=== PATIENT | female | born 1975 | race Caucasian/White ===

== ENCOUNTER 2022-12-03 06:30 | Outpatient (OUT) | payer BC, SELFPAY ==
[2022-12-03 07:09] LABS: Basophils Absolute Auto 0.1 10^3/uL (0.0-0.1); Eosinophils Absolute Auto 0.1 10^3/uL (0.0-0.7); Eosinophils Percent Auto 0.9 % (0.9-7.0); Hematocrit 39.2 % (36.0-48.0); Hemoglobin 13.4 g/dL (12.0-16.0); Immature Granulocytes Abs Auto 0.03 10^3/uL (0.00-0.03); Immature Granulocytes Pct Auto 0.3 % (0.0-0.5); Lymphocytes Absolute Auto 2.4 10^3/uL (1.2-3.8); Lymphocytes Percent Auto 24.1 % (20.5-60.0); Mean Corpuscular HGB Conc 34.2 g/dL (29.9-35.2); Mean Corpuscular Hemoglobin 28.4 pg (26.7-34.0); Mean Corpuscular Volume 83.1 fL (81.0-99.0); Mean Platelet Volume 9.4 fL (9.5-13.5); Monocytes Absolute Auto 0.6 10^3/uL (0.3-0.8); Neutrophils Absolute Auto 6.8 10^3/uL (1.4-6.5); Neutrophils Percent Auto 67.7 % (43.0-75.0); Platelet Count 391 10^3/uL (150-450); Red Blood Count 4.72 10^6/uL (4.20-5.40); Red Cell Distribution Width 13.3 % (11.0-15.0)
[2022-12-03 07:33] LABS: Estimated Average Glucose 111 mg/dL; Glycohemoglobin A1C 5.5 % (4.5-6.2)
[2022-12-03 07:39] LABS: Bilirubin Urine NEGATIVE (NEGATIVE); Blood Urine TRACE-I (NEGATIVE); Clarity Urine CLEAR (CLEAR); Color Urine YELLOW (YELLOW); Glucose Urine UA NEGATIVE (NEGATIVE); Ketones Urine NEGATIVE (NEGATIVE); Leukocyte Esterase Urine NEGATIVE (NEGATIVE); Nitrite Urine NEGATIVE (NEGATIVE); Protein Urine NEGATIVE (NEG/TRACE); Specific Gravity Urine >=1.030 (1.005-1.025); Urobilinogen Urine 0.2 EU/dL (0.2-1.0)
[2022-12-03 07:41] LABS: RBC Urine 0-2 #/HPF (0-2); WBC Urine NONE SEEN #/HPF (NONE SEEN)
[2022-12-03 07:42] LABS: Bacteria Urine TRACE #/HPF (NONE SEEN); Cast Seen? NONE SEEN #/LPF (NONE SEEN); Crystals Seen? None Seen #/HPF (None Seen); Mucus Urine TRACE (NONE SEEN); Squamous Epithelial Cell Urine FEW #/LPF (NONE/RARE)
[2022-12-03 07:45] LABS: Alanine Aminotransferase 42 U/L (14-59); Albumin Globulin Ratio 0.8; Albumin Level 3.6 g/dL (3.4-5.0); Alkaline Phosphatase 54 U/L (46-116); Anion Gap 11.5; Aspartate Amino Transferase 18 U/L (15-37); BUN Creatinine Ratio 23.4; Bilirubin Total 0.5 mg/dL (0.2-1.0); Calcium 9.1 mg/dL (8.5-10.1); Carbon Dioxide 29.1 mmol/L (21.0-32.0); Chloride 100 mmol/L (98-107); Chol HDL Ratio 3.9; Cholesterol 188 mg/dL (<=200); Estimated GFR (African America >60 (>=60); Estimated GFR (Non-African Ame >60 (>=60); Free Thyroxine Index 2.99 (1.30-4.50); Globulin 4.6 g/dL; Glucose 105 mg/dL (74-106); HDL Cholesterol 48 mg/dL (40-60); Potassium 3.6 mmol/L (3.5-5.1); Sodium 137 mmol/L (136-145); Total Protein 8.2 g/dL (6.4-8.2); Triglycerides 204 mg/dL (<=150); VLDL CHOLESTEROL 40.8 mg/dL
[2022-12-04 11:28] LABS: Insulin 33.3 uIU/mL (2.6-24.9)
== END 2022-12-03 06:31 | disposition home or self-care (01) ==
LOC: LAB 06:30
PROVIDERS: PCP Nurse Practitioner Family; Visit Provider Nurse Practitioner Family
DX: Z00.00 Encounter for general adult medical examination without abnormal findings (principal); R30.0 Dysuria
CPT/HCPCS: 36415; 80053; 80061; 81001; 83036; 83525; 83540; 84436; 84443; 84479; 85025; 87086

== ENCOUNTER 2022-12-04 20:36 | Emergency (ER) | payer BC, SELFPAY ==
[2022-12-04 20:39] VITALS: BP 160/94; PULSE 75; RESP 20; TEMP 36.7; O2SAT 98; BMI 40.7
--- NOTE | 2022-12-04 20:50 | CT_ITS ---
[address] [address] Patient Name: MARCELLA HOUSER MRN: [id number] date: 1975 Sex: F Assigned Patient Location: ER Current Patient Location: Accession/Order Number: [id number] Exam Date: 12/04/2022 21:03 Report Date: 12/04/2022 21:32 At the request of: CHARLINE HATFIELD Procedure: CT abdomen pelvis wo con EXAM: CT abdomen pelvis wo con REASON FOR EXAM: Female, 47 years, right flank pain. TECHNIQUE: Computed tomography of the abdomen and pelvis is performed in the axial projection from the lung bases to the pubic symphysis. Sagittal and coronal reconstructed images are performed. Dose reduction techniques were achieved by using automated exposure control and/or adjustment of mA and/or KVP according to patient size and/or use of iterative reconstruction technique. Study was performed without IV contrast. Study was performed without oral contrast. COMPARISON: 06/27/2015 FINDINGS: Lung bases: The lung bases are clear. There is no pleural effusion. The visualized portions of the heart are unremarkable. The lack of intravenous contrast slightly limits evaluation of the solid abdominal organs. Liver: There is diffuse decreased attenuation throughout the liver consistent with steatosis. Gallbladder: The gallbladder has been removed. Spleen: The spleen is normal. Pancreas: The pancreas is normal. Adrenal glands: The adrenal glands are normal bilaterally. Right kidney: The kidney is normal in size. There is no renal calculus or hydronephrosis. Left kidney: The kidney is normal in size. There is no renal calculus or hydronephrosis. Stomach: The stomach is normal. Small bowel: The small bowel is normal. Large bowel: The colon is normal. Appendix: The appendix is visualized, and is normal. Aorta: The aorta is normal. IVC: The IVC is normal. Retroperitoneum: Normal retroperitoneum. Bladder: The bladder is minimally distended at the time of scanning. Pelvic organs: Normal uterus. There is a 4.1 cm right ovarian cyst. There appears to be a dominant follicle within the left ovary. Abdominal wall: Postoperative changes are seen to the lower abdominal wall. Osseous structures: Degenerative changes are seen in the visualized spine. IMPRESSION: No bowel obstruction or acute renal pathology. 4.1 cm right ovarian cyst. This can be further characterized by pelvic sonography, as clinically indicated. Hepatic steatosis. Normal appendix. Additional nonacute findings, as described above. Electronically authenticated by: PEACE ABRAHAM Date: 12/04/2022 21:32
--- NOTE | 2022-12-04 20:52 | ED.ABDPAIN1 ---
HPI - Abdominal Pain General Chief Complaint: Abdominal Pain Stated Complaint: ADBOMINAL PAIN Time Seen by Provider: 12/04/22 20:42 Source: patient Mode of arrival: walk-in Limitations: no limitations History of Present Illness HPI narrative: patient is a 47-year-old female who presents to the emergency department for the evaluation of right lower quadrant and right flank pain that has been present for the last week. Patient states her primary pain is in the right lower quadrant and she has radiating pain into the right flank. She has had a previous tubal ligation. She denies fevers, chills. She has had nausea but no vomiting. She denies urinary symptoms. She saw her PCP yesterday who ordered outpatient labs and urine specimen. She was not placed on any medications. She states today the pain is more intense. Related Data Home Medications Medication Instructions Recorded Confirmed chlorthalidone 25 mg tablet 12.5 mg PO .am 12/04/22 12/04/22 lisinopril 20 mg tablet 20 mg PO BID 12/04/22 12/04/22 pindolol 5 mg tablet 20 mg PO DAILY 12/04/22 12/04/22 sertraline 50 mg tablet 50 mg PO Q24H 12/04/22 12/04/22 Previous Rx's Medication Instructions Recorded ketorolac 10 mg tablet 10 mg PO TID PRN pain #10 tabs 12/04/22 ondansetron 4 mg disintegrating 4 mg PO Q6H PRN nausea and 12/04/22 tablet vomiting #12 tabs oxycodone-acetaminophen 5 mg-325 1 tab PO Q6H PRN pain #12 tabs 12/04/22 mg tablet (Percocet) Allergies Allergy/AdvReac Type Severity Reaction Status Date / Time metoprolol [From Toprol XL] Allergy Intermediate Verified 12/04/22 20:39 Review of Systems ROS Constitutional Denies: fever or chills Ears, nose, mouth, and throat Denies: throat pain or neck pain Respiratory Denies: shortness of breath or cough Gastrointestinal Reports: abdominal pain and nausea; Denies: vomiting Genitourinary Reports: pelvic pain; Denies: painful urination or urinary frequency Musculoskeletal Reports: back pain; Denies: neck pain Integumentary/Breast Denies: rash Exam Narrative Exam Narrative: Gen.: Awake, alert, in no distress Head: Normocephalic, atraumatic ENT: Moist mucous membranes Respiratory: No respiratory distress Gastrointestinal: Abdomen is soft, nondistended and mildly tender in the suprapubic and right lower quadrant of the abdomen. No McBurney's point tenderness. No rebound or guarding. No CVA tenderness on exam. No rashes noted of the right flank Extremities: Moves extremities equally, no injuries noted Psych: Normal mood and affect Neuro: No focal neuro deficit Skin: Warm, dry, intact Constitutional Vital Signs - 24 hr 12/04/22 20:39 Temperature 98.1 F Pulse Rate [Monitor] 75 Respiratory Rate 20 Blood Pressure [Left Arm] 160/94 H Pulse Oximetry 98 Oxygen Delivery Method Room Air Course Vital Signs Vital signs: Vital Signs Temperature 98.1 F 12/04/22 20:39 Pulse Rate 75 12/04/22 20:39 Respiratory Rate 20 12/04/22 20:39 Blood Pressure 160/94 H 12/04/22 20:39 Pulse Oximetry 98 12/04/22 20:39 Oxygen Delivery Method Room Air 12/04/22 20:39 Temperature 98.1 F 12/04/22 20:39 Pulse Rate 75 12/04/22 20:39 Respiratory Rate 20 12/04/22 20:39 Blood Pressure 160/94 H 12/04/22 20:39 Pulse Oximetry 98 12/04/22 20:39 Oxygen Delivery Method Room Air 12/04/22 20:39 MDM - Abdominal Pain MDM Narrative Medical decision making narrative: patient treated with IV fluids, Toradol, Zofran. Labs from yesterday were reviewed and the patient had an unremarkable CBC, CMP. Urine specimen did show a small amount of blood yesterday. These labs are repeated today. Patient was sent for CT of the abdomen and pelvis without contrast. CT shows a 4.1 cm right ovarian cyst with no other acute abnormalities. Patient with no pain out of proportion on exam, stable vital signs and symptoms for one week. She was given an order for an outpatient ultrasound as they are not available in hospital at this time. She should follow-up with [facility] for further evaluation and treatment. She was provided with pain medication and anti-inflammatories with Zofran for home. She was noted to have a potassium of 3.2 and was given oral potassium replenishment in the emergency department. She is resting comfortably on reevaluation. Medical Records Attestation: I reviewed the patient's medical records. Lab Data Attestation: I reviewed the patient's lab results. Labs: Lab Results 12/04/22 12/04/22 Range/Units 20:50 21:09 WBC 11.1 H (4.0-11.0) 10^3/uL RBC 4.69 (4.20-5.40) 10^6/uL Hgb 13.2 (12.0-16.0) g/dL Hct 39.9 (36.0-48.0) % MCV 85.1 (81.0-99.0) fL MCH 28.1 (26.7-34.0) pg MCHC 33.1 (29.9-35.2) g/dL RDW 13.3 (11.0-15.0) % Plt Count 409 (150-450) 10^3/uL MPV 9.4 L (9.5-13.5) fL Neut % (Auto) 59.5 (43.0-75.0) % Lymph % (Auto) 30.7 (20.5-60.0) % Swain % (Auto) 6.9 (1.7-12.0) % Eos % (Auto) 1.5 (0.9-7.0) % Baso % (Auto) 1.0 (0.2-2.0) % Neut # (Auto) 6.6 H (1.4-6.5) 10^3/uL Lymph # (Auto) 3.4 (1.2-3.8) 10^3/uL Swain # (Auto) 0.8 (0.3-0.8) 10^3/uL Eos # (Auto) 0.2 (0.0-0.7) 10^3/uL Baso # (Auto) 0.1 (0.0-0.1) 10^3/uL Abs Immat Gran (auto) 0.05 H (0.00-0.03) 10^3/uL Imm/Tot Granulo (auto) 0.4 (0.0-0.5) % Sodium 136 (136-145) mmol/L Potassium 3.2 L (3.5-5.1) mmol/L Chloride 101 (98-107) mmol/L Carbon Dioxide 26.0 (21.0-32.0) mmol/L Anion Gap 12.2 BUN 18.0 (7.0-18.0) mg/dL Creatinine 0.82 (0.55-1.02) mg/dL Est GFR ( Amer) >60 (>=60) Est GFR (Non-Af Amer) >60 (>=60) BUN/Creatinine Ratio 22.0 Glucose 112 H (74-106) mg/dL Lactate 1.0 (0.4-2.0) mmol/L Calcium 9.1 (8.5-10.1) mg/dL Total Bilirubin 0.4 (0.2-1.0) mg/dL AST 17 (15-37) U/L ALT 32 (14-59) U/L Alkaline Phosphatase 59 (46-116) U/L Total Protein 8.1 (6.4-8.2) g/dL Albumin 3.5 (3.4-5.0) g/dL Globulin 4.6 g/dL Albumin/Globulin Ratio 0.8 Lipase 74.0 (73.0-393.0) U/L Urine Color Lt. yellow (YELLOW) Urine Clarity Clear (CLEAR) Urine pH 5.5 (5.0-9.0) Ur Specific Kimberly 1.025 (1.005-1.025) Urine Protein Negative (NEG/TRACE) mg/dL Urine Glucose (UA) Negative (NEGATIVE) mg/dL Urine Ketones Negative (NEGATIVE) mg/dL Urine Occult Blood Negative (NEGATIVE) Urine Nitrite Negative (NEGATIVE) Urine Bilirubin Negative (NEGATIVE) Urine Urobilinogen 0.2 (0.2-1.0) EU/dL Ur Leukocyte Esterase Trace A (NEGATIVE) Urine HCG, Qual Negative (NEGATIVE) Imaging Data CT scan - abdomen: Attestation: I have reviewed the pertinent imaging results. Radiologist's impression: Procedure: CT abdomen pelvis wo con EXAM: CT abdomen pelvis wo con REASON FOR EXAM: Female, 47 years, right flank pain. TECHNIQUE: Computed tomography of the abdomen and pelvis is performed in the axial projection from the lung bases to the pubic symphysis. Sagittal and coronal reconstructed images are performed. Dose reduction techniques were achieved by using automated exposure control and/or adjustment of mA and/or KVP according to patient size and/or use of iterative reconstruction technique. Study was performed without IV contrast. Study was performed without oral contrast. COMPARISON: 06/27/2015 FINDINGS: Lung bases: The lung bases are clear. There is no pleural effusion. The visualized portions of the heart are unremarkable. The lack of intravenous contrast slightly limits evaluation of the solid abdominal organs. Liver: There is diffuse decreased attenuation throughout the liver consistent with steatosis. Gallbladder: The gallbladder has been removed. Spleen: The spleen is normal. Pancreas: The pancreas is normal. Adrenal glands: The adrenal glands are normal bilaterally. Right kidney: The kidney is normal in size. There is no renal calculus or hydronephrosis. Left kidney: The kidney is normal in size. There is no renal calculus or hydronephrosis. Stomach: The stomach is normal. Small bowel: The small bowel is normal. Large bowel: The colon is normal. Appendix: The appendix is visualized, and is normal. Aorta: The aorta is normal. IVC: The IVC is normal. Retroperitoneum: Normal retroperitoneum. Bladder: The bladder is minimally distended at the time of scanning. Pelvic organs: Normal uterus. There is a 4.1 cm right ovarian cyst. There appears to be a dominant follicle within the left ovary. Abdominal wall: Postoperative changes are seen to the lower abdominal wall. Osseous structures: Degenerative changes are seen in the visualized spine. IMPRESSION: No bowel obstruction or acute renal pathology. 4.1 cm right ovarian cyst. This can be further characterized by pelvic sonography, as clinically indicated. Hepatic steatosis. Normal appendix. Additional nonacute findings, as described above. Electronically authenticated by: PEACE ABRAHAM Date: 12/04/2022 21:32 Discharge Plan Discharge Chief Complaint: Abdominal Pain Clinical Impression: Acute flank pain, Ovarian cyst Patient Disposition: Home, Self-Care Time of Disposition Decision: 21:44 Condition: Good Prescriptions / Home Meds: New ketorolac 10 mg tablet 10 mg PO TID PRN (Reason: pain) Qty: 10 0RF oxycodone-acetaminophen [Percocet] 5-325 mg tablet 1 tab PO Q6H PRN (Reason: pain) Qty: 12 0RF ondansetron 4 mg tablet,disintegrating 4 mg PO Q6H PRN (Reason: nausea and vomiting) Qty: 12 0RF No Action chlorthalidone 25 mg tablet 12.5 mg PO .am lisinopril 20 mg tablet 20 mg PO BID pindolol 5 mg tablet 20 mg PO DAILY sertraline 50 mg tablet 50 mg PO Q24H Instructions: Ovarian Cyst (ED) Additional Instructions: Follow up with Dr. Fontaine's office in 5-7 days Stand Alone Forms: Portal Instructions Referrals: JOVITA WAITE [Primary Care Provider] - 1 week
[2022-12-04 21:00] LABS: Basophils Absolute Auto 0.1 10^3/uL (0.0-0.1); Eosinophils Absolute Auto 0.2 10^3/uL (0.0-0.7); Eosinophils Percent Auto 1.5 % (0.9-7.0); Hematocrit 39.9 % (36.0-48.0); Hemoglobin 13.2 g/dL (12.0-16.0); Immature Granulocytes Abs Auto 0.05 10^3/uL (0.00-0.03); Immature Granulocytes Pct Auto 0.4 % (0.0-0.5); Lymphocytes Absolute Auto 3.4 10^3/uL (1.2-3.8); Lymphocytes Percent Auto 30.7 % (20.5-60.0); Mean Corpuscular HGB Conc 33.1 g/dL (29.9-35.2); Mean Corpuscular Hemoglobin 28.1 pg (26.7-34.0); Mean Corpuscular Volume 85.1 fL (81.0-99.0); Mean Platelet Volume 9.4 fL (9.5-13.5); Monocytes Absolute Auto 0.8 10^3/uL (0.3-0.8); Monocytes Percent Auto 6.9 % (1.7-12.0); Neutrophils Absolute Auto 6.6 10^3/uL (1.4-6.5); Neutrophils Percent Auto 59.5 % (43.0-75.0); Platelet Count 409 10^3/uL (150-450); Red Blood Count 4.69 10^6/uL (4.20-5.40); Red Cell Distribution Width 13.3 % (11.0-15.0); White Blood Count 11.1 10^3/uL (4.0-11.0)
[2022-12-04] MEDS: 0.9 % SODIUM CHLORIDE 1,000 ML 999 ML IV (21:04)
[2022-12-04] MEDS: ONDANSETRON PF 4 MG/2 ML VIAL IV (21:05)
[2022-12-04] MEDS: KETOROLAC TROMETHAMINE 30 MG/ML VIAL IVP (21:05)
[2022-12-04 21:21] LABS: Bilirubin Urine NEGATIVE (NEGATIVE); Blood Urine NEGATIVE (NEGATIVE); Clarity Urine CLEAR (CLEAR); Color Urine LT. YELLOW (YELLOW); Glucose Urine UA NEGATIVE (NEGATIVE); Ketones Urine NEGATIVE (NEGATIVE); Leukocyte Esterase Urine TRACE (NEGATIVE); Nitrite Urine NEGATIVE (NEGATIVE); Protein Urine NEGATIVE (NEG/TRACE); Specific Gravity Urine 1.025 (1.005-1.025); Urobilinogen Urine 0.2 EU/dL (0.2-1.0); pH Urine 5.5 (5.0-9.0)
[2022-12-04 21:26] LABS: Urine Microscopic Indicated NO
[2022-12-04 21:27] LABS: Alanine Aminotransferase 32 U/L (14-59); Albumin Globulin Ratio 0.8; Albumin Level 3.5 g/dL (3.4-5.0); Alkaline Phosphatase 59 U/L (46-116); Anion Gap 12.2; Aspartate Amino Transferase 17 U/L (15-37); Bilirubin Total 0.4 mg/dL (0.2-1.0); Calcium 9.1 mg/dL (8.5-10.1); Chloride 101 mmol/L (98-107); Estimated GFR (African America >60 (>=60); Estimated GFR (Non-African Ame >60 (>=60); Globulin 4.6 g/dL; Glucose 112 mg/dL (74-106); Potassium 3.2 mmol/L (3.5-5.1); Sodium 136 mmol/L (136-145); Total Protein 8.1 g/dL (6.4-8.2)
[2022-12-04 21:31] LABS: HCG Qualitative Urine* NEGATIVE (NEGATIVE)
[2022-12-04] MEDS: POTASSIUM CITRATE 10 MEQ ER TABLET 40 MEQ PO (22:10)
== END 2022-12-04 22:18 | disposition home or self-care (01) ==
PROVIDERS: Physician Assistant; Emergency Provider Emergency Medicine; PCP Nurse Practitioner Family
DX: R10.9 Unspecified abdominal pain (principal); N83.201 Unspecified ovarian cyst, right side; Z79.899 Other long term (current) drug therapy
CPT/HCPCS: 36415; 74176; 80053; 81003; 83605; 83690; 84703; 85025; 96374; 96375; 99285

== ENCOUNTER 2022-12-09 17:29 | Outpatient (OUT) | payer BC, SELFPAY ==
--- NOTE | 2022-12-09 | US_ITS ---
[address] [address] Patient Name: MARCELLA HOUSER MRN: [id number] date: 1975 Sex: F Assigned Patient Location: Current Patient Location: Accession/Order Number: [id number] Exam Date: 12/09/2022 17:40 Report Date: 12/10/2022 04:21 At the request of: CHARLINE HATFIELD Procedure: US pelvis w/ transvaginal EXAMINATION: US pelvis w/ transvaginal HISTORY: Right Ovarian Cyst COMPARISON: Ultrasound pelvis 08/13/2022, CT abdomen pelvis 12/04/2022 TECHNIQUE: Transabdominal and/or transvaginal sonographic examination was performed as indicated by examination type. FINDINGS: UTERUS: Heterogeneous 1.4 cm rounded area within right uterine wall favoring a leiomyoma. Uterus size: 8.4 x 4.5 x 5.3 cm ENDOMETRIUM: Normal homogeneous appearance. Endometrial thickness: 2 mm RIGHT OVARY: Contains a 3.8 cm anechoic benign-appearing cyst. Duplex Doppler demonstrates normal waveform and flow; resistive index 0.5. Ovary size: 4.8 x 2.9 x 4.8 cm LEFT OVARY: Contains 2 adjacent anechoic benign-appearing cysts, largest is 1.9 cm. Duplex Doppler demonstrates normal waveform and flow; resistive index 0.5. Ovary size: 3.6 x 2.9 x 1.4 cm CUL-DE-SAC: Unremarkable. No significant free fluid. BLADDER: Unremarkable. OTHER: None. IMPRESSION: 1. Bilateral benign-appearing ovarian cysts, largest is on right, 3.8 cm. No additional follow-up is recommended at this time. Electronically authenticated by: TERRI DELANEY Date: 12/10/2022 04:21
== END 2022-12-09 17:30 | disposition home or self-care (01) ==
PROVIDERS: PCP Nurse Practitioner Family; Visit Provider Physician Assistant
DX: N83.201 Unspecified ovarian cyst, right side (principal); N83.202 Unspecified ovarian cyst, left side
CPT/HCPCS: 76830; 76856

== ENCOUNTER 2023-06-12 14:36 | Outpatient (REF) | payer BC, SELFPAY ==
[2023-06-12 15:21] LABS: SARS-CoV-2 Ag NEGATIVE (NEGATIVE)
[2023-06-13 15:34] LABS: SARS-CoV-2 NAA NOT DETECTED (NOT DETECTE)
== END 2023-06-12 14:37 | disposition home or self-care (01) ==
LOC: LAB 14:36
PROVIDERS: PCP Nurse Practitioner Family; Visit Provider Nurse Practitioner Family
DX: U07.1 COVID-19 (principal)
CPT/HCPCS: 87635; 87811

== ENCOUNTER 2023-08-17 03:57 | Emergency (ER) | payer BC, SELFPAY ==
[2023-08-17] VITALS (10 sets, daily range): BP systolic 119–146; BP diastolic 72–87; PULSE 70–75; RESP 16–18; TEMP 36.8; O2SAT 96–98; BMI 40.7
--- OUTSIDE RECORDS SUMMARY | 2023-08-17 04:06 | XMS_ITS | CCD ---
Author Name Unknown Address [address] [place] [address] Organization [facility] Team Providers Care Rail Grinder Name Role Phone ADAMOWICZ, ISAAC J Unavailable Unavailable ADAMOWICZ, ISAAC J Unavailable Unavailable ADAMOWICZ, ISAAC J Unavailable Unavailable ADAMOWICZ, ISAAC J Unavailable Unavailable ADAMOWICZ, ISAAC J Unavailable Unavailable ADAMOWICZ, ISAAC J Unavailable Unavailable ADAMOWICZ, ISAAC J Unavailable Unavailable ADAMOWICZ, ISAAC J Unavailable Unavailable ADAMOWICZ, ISAAC J Unavailable Unavailable ADAMOWICZ, ISAAC J Unavailable Unavailable CANDIS HERNANDEZ Unavailable Unavailable SHANAE LUNA (PATIENT CARE PROVIDER) Unavailable Unavailabl e ADAMOWICZ, ISAAC J Unavailable Unavailable ADAMOWICZ, ISAAC J Unavailable Unavailable ADAMOWICZ, ISAAC J Unavailable Unavailable JESUS CHEATHAM Unavailable Unavailab le ADAMOWICZ, ISAAC J Unavailable Unavailable SHANAE LUNA (PATIENT CARE PROVIDER) Unavailable Unavailabl e SHANAE LUNA (PATIENT CARE PROVIDER) Unavailable Unavailabl e ADAMOWICZ, ISAAC J Unavailable Unavailable ADAMOWICZ, ISAAC J Unavailable Unavailable JESUS CHEATHAM Unavailable Unavailab JOSEPH Arceo Unavailable Unavailab le ADAMOWICZ, ISAAC J Unavailable Unavailable ADAMOWICZ, ISAAC J Unavailable Unavailable ADAMOWICZ, ISAAC J Unavailable Unavailable SHANAE LUNA (PATIENT CARE PROVIDER) Unavailable Unavailabl e ADAMOWICZ, ISAAC J Unavailable Unavailable ADAMOWICZ, ISAAC J Unavailable Unavailable PHYSICIAN, DEFAULT Admitting Unavailable PHYSICIAN, DEFAULT Attending Unavailable PHYSICIAN, DEFAULT Admitting Unavailable PHYSICIAN, DEFAULT Attending Unavailable JOVITA WAITE Primary Care Physician DR GUSTAVO GREWAL Consulting Unavailable JOVITA WAITE Primary Care Unavailable SHERMAN Hernandez, DR JUÁREZ Attending Unavailable SHERMAN ., DR JUÁREZ Admitting Unavailable ALLI CARLSON Consulting Unavailable WADE BOUCHER Consulting Unavailable MARIANN, JOVITA Primary Care Unavailable MARIANN, JOVITA Attending Unavailable MARIANN, JOVITA Admitting Unavailable MARIANN, JOVITA Consulting Unavailable MARIANN, JOVITA Primary Care Unavailable MARIANN, JOVITA Attending Unavailable MARIANN, JOVITA Admitting Unavailable DR SHADE ROMO V Consulting Unavailable MARIANN, JOVITA Primary Care Unavailable MARIANN, JOVITA Attending Unavailable MARIANN, JOVITA Admitting Unavailable MARIANN, JOVITA Consulting Unavailable KADI ., HARRY Consulting Unavailable MARIANN, JOVITA Primary Care Unavailable KADI ., HARRY Attending Unavailable KADI ., HARRY Admitting Unavailable ZIEBER, DR TERRI Lynn Consulting Unavailable MARIANN, JOVITA Primary Care Unavailable KADI ., HARRY Attending Unavailable KADI ., HARRY Admitting Unavailable KADI ., HARRY Consulting Unavailable MARIANN, JOVITA Consulting Unavailable MARIANN, JOVITA Primary Care Unavailable FANNIE, DIANE Attending Unavailable FANNIE, DIANE Admitting Unavailable ZIEBMARY JANE, DR TERRI Lynn Consulting Unavailable MARIANN, JOVITA Primary Care Unavailable MARINAN, JOVITA Attending Unavailable MARIANN, JOVITA Admitting Unavailable MARIANN, JOVITA Consulting Unavailable MARIANN, JOVITA Consulting Unavailable MARIANN, JOVITA Primary Care Unavailable MARIANN, JOVITA Attending Unavailable MARIANN, JOVITA Admitting Unavailable MARIANN, JOVITA Primary Care Unavailable MARIANN, JOVITA Attending Unavailable MARIANN, JOVITA Admitting Unavailable TERRI LANDAVERDE Consulting Unavailable JAKE ., SEYMOUR Attending Unavailable JAKE ., SEYMOUR Admitting Unavailable MARIANN, JOVITA Primary Care Unavailable JAKE ., SEYMOUR Consulting Unavailable SHERMAN ., DR JUÁREZ Consulting Unavailable MARIANN, JOVITA Primary Care Unavailable SHERMAN ., DR JUÁREZ Attending Unavailable SHERMAN ., DR JUÁREZ Admitting Unavailable [place] Unavailable GERALD MANCINI Attending Unavailable FANNIE, DIANE Attending Unavailable MAGED AMATO Attending Unavailable Allergies Allergy Classification Reported Allergen(s) Allergy Type Date of Onset Reaction(s) Facility (4 sources) metoprolol; Translations: [METOPROLOL] Drug Allergy 6 AOF, heart racing [facility] Repository (2 sources) Pyridoxal Drug Allergy 3 [facility] Repository (3 sources) patient allergy list reviewed by nurse or physicia Propensity to adverse reactions 09-18-201 7 Comment:Done [facility] Other (3 sources) Allergies Reconciled Propensity to adverse reactions Unknown [facility] Other Medications Current Medications Medication Drug Class(es) Dates Sig (Normalized) Sig (Original) acetaminophen 325 mg / oxyCODONE hydrochloride 5 mg oral tablet (2 sources) Opioid Agonist Start: 10-18-2021 Percocet 5 mg-325 mg oral tablet 1 tab(s), Oral, q6hr as needed for pain, 12 tab(s), Refill(s) 0, [facility]/pharm[facility] #[id number], 160, cm, 10/18/21 4:04:00 EDT, Height/Length Dosing, 107, kg, 10/18/21 4:04:00 EDT, Weight Dosing Start Date: 10/18/21 Status: Ordered azithromycin 250 mg oral tablet (6 sources) Macrolide Antimicrobial Start: 03-03-2023 Azithromycin 250 MG as directed Orally 2 tabs po today, then 1 tab daily x 4 more days for 5 Jun, Active chlorthalidone 25 mg oral tablet (3 sources) Thiazide-like Diuretic Chlorthalidone 25 MG 1/2 tablet once a day Active doxycycline hyclate 100 mg oral tablet (2 sources) Tetracycline-class Drug Start: 10-18-2021 take 1 tablet by mouth twice daily doxycycline hyclate 100 mg Tab 100 mg = 1 tab(s), Oral, BID, # 20 tab(s), Refills(s) 0, Pharmacy: [facility]/pharmacy #[id number], 160, cm, 10/18/21 4:04:00 EDT, Height/Length Dosing, 107, kg, 10/18/21 4:04:00 EDT, Weight Dosing Start Date: 10/18/21 Status: Ordered ketorolac tromethamine 10 mg oral tablet (1 source) Nonsteroidal Anti-inflammatory Drug, Cyclooxygenase Inhibitor Start: 10-20-2021 End: 10-25-2021 take 1 tablet by mouth every six hours as needed for pain ketorolac 10 mg Tab 10 mg = 1 tab(s), Oral, q6hr, PRN for pain, X 5 day(s), # 20 tab(s), Refills(s) 0, Pharmacy: [facility]/pharm[facility] #[id number], 160, cm, 10/20/21 18:21:00 EDT, Height/Length Dosing, 107, kg, 10/20/21 18:21:00 EDT, Weight Dosing Start Date: 10/20/21 Stop Date: 10/25/21 Status: Ordered lisinopril 2.5 mg oral tablet (7 sources) Angiotensin Converting Enzyme Inhibitor Start: 11-10-2017 take 1 tablet by mouth once daily in the evening, then take 2 tablets by mouth in the morning, then take 1 tablet by mouth at bedtime lisinopril 2.5 mg Tab 2.5 mg = 1 tab(s), Oral, qPM, Take 5 mg in the morning and 2.5 mg at bedtime, # 30 tab(s), Refills(s) 0, Pharmacy: [facility]/pharmacy #[id number] Start Date: 11/10/17 Status: Ordered Start: 11-10-2017 take 1 tablet by marcus th once daily lisinopril 5 mg Tab 5 mg = 1 tab(s), Oral, Daily, Refills(s) 0 Start Date: 11/10/17 Status: Ordered Start: 07-08-2017 take 1 tablet by marcus th twice daily Lisinopril 20 MG Lisinopril( 20MG Oral 1.17463 Tablet ) Active -Hx Entry Oral for 0 Qty: 60; Refills: 10; patient taking 20 mg BID Jun, Active pindolol 10 mg oral tablet (5 sources) beta-Adrenergic Yandel Start: 11-07-2021 Pindol ol 10MG Pindolol( 10MG Oral two times daily ) Active -Hx Entry Oral two times daily for 0 *Pick strength-form from [facility] for eRX* Nov, Active Start: 05-22-2017 take 1 tablet by marcus th twice daily pindolol 5 mg oral tablet 5 mg = 1 tab(s), Oral, BID, Refills(s) 0 Start Date: 05/22/17 Status: Ordered sertraline 100 mg oral tablet (5 sources) Serotonin Reuptake Inhibitor Start: 11-10-2017 sertraline 100 mg Ta b 50 mg = 0.5 tab(s), Oral, Bedtime, Refills(s) 0 Start Date: 11/10/17 Status: Ordered Start: 10-14-2012 Sertraline HCl 50MG Sertraline HCl 50MG, # 0.00, 10/14/2012, No Refill. Active for 0 *Pick strength[facility]form from [facility] for eRX* October, Active Problems Active Problems Problem Classification Problem Date Documented Date Episodic/Chronic Abdominal pain (9 sources) Left lower quadrant pain; Translations: [Left lower quadrant pain] Onset: 10-18-2021 Episodic Acute and chronic tonsillitis (3 sources) Hypertrophy of tonsils; Translations: [Hypertrophy of tonsils] Onset: 01-08-2018 Chronic Acute bronchitis (3 sources) Acute bronchitis; Translations: [Acute bronchitis due to other specified organisms] Episodic Anxiety disorders (7 sources) Generalized anxiety disorder; Translations: [Anxiety disorder] Onset: 07-08-2017 Resolved: 10-23-2021 Chronic Bacterial infection; unspecified site (2 sources) Other specified bacterial agents as the cause of diseases classified elsewhere Episodic Diseases of white blood cells (1 source) Lymphocytosis (symptomatic); Translations: [Lymphocytosis (symptomatic)] Onset: 04-11-2016 Chronic Essential hypertension (11 sources) Hypertensive disorder; Translations: [Essential (primary) hypertension] Onset: 02-24-2017 Resolved: 10-23-2021 09-23-2017 Chronic Genitourinary symptoms and ill-defined conditions (7 sources) Dysuria; Translations: [Larry hematuria] Onset: 01-17-2022 Episodic Headache; including migraine (4 sources) Headache; including migraine; Translations: [HEADACHE UNSPECIFIED] Onset: 09-22-2022 Heart valve disorders (2 sources) Nonrheumatic mitral (valve) insufficiency; Translations: [Nonrheumatic mitral (valve) insufficiency] Onset: 07-23-2023 Chronic Hypertension with complications and secondary hypertension (2 sources) Hypertensive heart disease without heart failure; Translations: [Hypertensive heart disease without heart failure] Onset: 02-19-2023 Chronic Inflammatory diseases of female pelvic organs (3 sources) Chronic salpingitis; Translations: [Chronic salpingitis] Onset: 10-18-2021 Chronic Inflammatory diseases of female pelvic organs (3 sources) Acute vaginitis; Translations: [Acute vaginitis] Episodic Other aftercare (1 source) Other [place] [facility] (current[facility] drug therapy; Translations: [[facility] CURRENT DRUG THERAPY] Onset: 09-24-2022 Episodic Other aftercare (3 sources) History and physical examination, follow-up; Translations: [Encounter for follow-up examination after completed treatment for conditions other than malignant neoplasm] Episodic Other and ill-defined heart disease (2 sources) Heart disease, unspecified; Translations: [Heart disease, unspecified] Onset: 07-23-2023 Chronic Other connective tissue disease (3 sources) Calcaneal spur of left foot; Translations: [Calcaneal spur, left foot] Episodic Other connective tissue disease (3 sources) Pain in left foot; Translations: [Pain in left foot] Episodic Other connective tissue disease (3 sources) Calcific tendinitis; Translations: [Calcific tendinitis, other site] Episodic Other connective tissue disease (3 sources) Peroneal tendinitis; Translations: [Peroneal tendinitis, left leg] Episodic Other connective tissue disease (3 sources) Pain in right lower limb; Translations: [Pain in right leg] Episodic Other female genital disorders (1 source) Abnormal uterine and vaginal bleeding, unspecified; Translations: [ABNORMAL UTERINE VAGINAL BLEED UNS] Onset: 11-30-2021 Chronic Other female genital disorders (3 sources) Abnormal uterine bleeding; Translations: [Abnormal uterine and vaginal bleeding, unspecified] Chronic Other non-traumatic joint disorders (3 sources) Ankle instability; Translations: [Other instability, left ankle] Episodic Other non-traumatic joint disorders (3 sources) Arthralgia of the ankle and/or foot; Translations: [Pain in left ankle and joints of left foot] Episodic Other nutritional; endocrine; and metabolic disorders (3 sources) Morbid obesity; Translations: [Morbid (severe) obesity due to excess calories] Onset: 07-28-2018 Chronic Other nutritional; endocrine; and metabolic disorders (3 sources) Body mass index 40+ - severely obese; Translations: [Body mass index (BMI) 40.0-44.9, adult] Onset: 07-08-2017 Chronic Other screening for suspected conditions (not mental disorders or infectious disease) (5 sources) Encounter for screening for malignant neoplasm of cervix; Translations: [Encounter for screening mammogram for malignant neoplasm of breast] Onset: 03-06-2022 Episodic Other upper respiratory infections (5 sources) Bacterial sinusitis; Translations: [Chronic sinusitis, unspecified] Chronic Other upper respiratory infections (13 sources) Acute sinusitis, unspecified; Translations: [Acute upper respiratory infection] Onset: 09-14-2018 Episodic Ovarian cyst (3 sources) Cyst of left ovary; Translations: [Unspecified ovarian cyst, left side] Onset: 10-20-2021 Episodic Residual codes; unclassified (3 sources) Postprocedural state finding; Translations: [Other specified postprocedural states] Episodic Sprains and strains (6 sources) Strain of left Achilles tendon; Translations: [Strain of left Achilles tendon, sequela] Episodic Unclassified (1 source) Unknown / UNK(Unknown) Onset: 01-23-2017 Unclassified (3 sources) CONTACT W/AND (SUSP) EXPOS COVID-19; Translations: [CONTACT W/AND (SUSP) EXPOS COVID-19] Onset: 01-22-2022 Past or Other Problems Problem Classification Problem Date Documented Date Episodic/Chronic Cardiac dysrhythmias (10 sources) Tachycardia, unspecified; Translations: [Palpitations] Onset: 05-22-2017 Resolved: 10-23-2021 Episodic Conditions associated with dizziness or vertigo (3 sources) Dizziness and giddiness; Translations: [Dizziness and giddiness] Onset: 07-08-2017 Episodic Immunizations and screening for infectious disease (4 sources) Encounter for screening for human papillomavirus (HPV); Translations: [Vaccination given] Onset: 03-16-2018 Resolved: 10-23-2021 Episodic Nonspecific chest pain (3 sources) Chest pain; Translations: [Chest pain, unspecified] Onset: 07-28-2018 Episodic Other and unspecified benign neoplasm (3 sources) Hemangioma of skin and subcutaneous tissue; Translations: [Hemangioma of skin and subcutaneous tissue] Onset: 07-19-2019 Episodic Other endocrine disorders (3 sources) Disorder of pituitary gland; Translations: [Other disorders of pituitary gland] Onset: 10-31-2017 Resolved: 10-23-2021 Chronic Other lower respiratory disease (3 sources) Cough; Translations: [Cough, unspecified] Onset: 07-24-2017 Resolved: 06-23-2018 Episodic Other nutritional; endocrine; and metabolic disorders (3 sources) Abnormal weight gain; Translations: [Abnormal weight gain] Onset: 07-08-2017 Episodic Other upper respiratory disease (3 sources) Pain in throat; Translations: [Pain in throat] Onset: 11-03-2018 Episodic Other upper respiratory disease (3 sources) Bleeding from nose; Translations: [Epistaxis] Onset: 09-29-2017 Resolved: 06-23-2018 Episodic Otitis media and related conditions (3 sources) Acute secretory otitis media; Translations: [Other acute nonsuppurative otitis media, right ear] Onset: 02-24-2017 Episodic Residual codes; unclassified (1 source) Family history of malignant neoplasm of breast; Translations: [FAMILY HX MALIG NEOPLASM OF BREAST] Onset: 03-09-2022 Episodic Residual codes; unclassified (1 source) Family history of malignant neoplasm of trachea, bronchus and lung; Translations: [FAM HX MALIG NEOPLSM TRACH BRON LNG] Onset: 03-09-2022 Episodic Residual codes; unclassified (1 source) Family history of malignant neoplasm of other organs or systems; Translations: [FAM HX MALIG NEOPLASM OTH ORGN/SYS] Onset: 03-09-2022 Episodic Residual codes; unclassified (1 source) Acquired absence of other specified parts of digestive tract; Translations: [ACQ ABSENCE OTH PART DIGESTV TRACT] Onset: 11-30-2021 Episodic Spondylosis; intervertebral disc disorders; other back problems (4 sources) Pain in thoracic spine; Translations: [PAIN IN THORACIC SPINE] Onset: 01-10-2022 Episodic Syncope (3 sources) Syncope and collapse; Translations: [Syncope and collapse] Onset: 07-08-2017 Episodic Unclassified (1 source) CONTACT W/AND (SUSP) EXPOS COVID-19; Translations: [CONTACT W/AND (SUSP) EXPOS COVID-19] Onset: 01-21-2022 Unclassified (3 sources) Exposure to acute respiratory syndrome coronavirus 2; Translations: [Contact with and (suspected) exposure to COVID-19] Urinary tract infections (3 sources) Urinary tract infectious disease; Translations: [Urinary tract infection, site not specified] Onset: 06-30-2018 Episodic Viral infection (3 sources) Coxsackie virus disease; Translations: [Coxsackievirus as the cause of diseases classified elsewhere] Onset: 12-30-2017 Episodic Viral infection (2 sources) COVID-19 Results Test Name Value Interpretation Reference Range Facility Office Visiton 07-23-2023 Follow-up visit [id number] Nettie Michael 1975 F Date Provider Department Center 07/23/2023 Shady-DIANE GRECO [facility] Family History Problem Relation Age of Onset No Known Problems Mother No Known Problems Father Family Status - Relation Status Age at Mother Father Level of Service:47972 [place] OFFICE/OUTPATIENT ESTABLISHED MOD MDM 30 MIN Normal [facility] Office Visiton 02-19-2023 Follow-up visit [id number] Nettie Michaelyosvany 1975 F Date Provider Department Center 02/19/2023 Allan8-GERALD MANCINI C[facility] Family History Problem Relation Age of Onset No Known Problems Mother No Known Problems Father Family Status - Relation Status Age at Mother Father Level of Service:90287 [place] OFFICE/OUTPATIENT ESTABLISHED MOD MDM 30-39 MIN Normal [facility] Office Visiton 09-25-2022 Follow-up visit [id number] Nettie Michaelmoises 1975 Date Provider Department Center 09/25/2022 Brent6-MAGED AMATO CARD [facility] Family History Problem Relation Age of Onset No Known Problems Mother No Known Problems Father Family Status - Relation Status Age at Mother Father Level of Service:99761 [place] OFFICE/OUTPATIENT ESTABLISHED LOW MDM 20-29 MIN Reason for Visit and Comments: Hypertension [098341] Palpitations [375536] Normal [facility] CBC AUTO DIFFon 09-23-2022 BASO # 0.1 103/ul Normal 0.0-0.1 [facility] Comment on above: Performed By: #### U AMIC #### [facility] [address] [place] [address] Dr. Kristen Gambino Basophils/100 WBC (Bld) 0.9 % Normal 0.2-2.0 [facility] Comment on above: Performed By: #### U AMIC #### [facility] [address] [place] [address] Dr. Kristen Gambino EO # 0.1 103/ul Normal 0.0-0.7 [facility] Comment on above: Performed By: #### U AMIC #### [facility] [address] [place] [address] Dr. Kristen Gambino Eosinophils/100 WBC (Bld) 1.1 % Normal 0.9-7.0 [facility] Comment on above: Performed By: #### U AMIC #### [facility] [address] [place] [address] Dr. Kristen Gambino Erythrocyte distribution width (RBC) [Ratio] 13.2 % Normal 11.0-15.0 [facility] Comment on above: Performed By: #### U AMIC #### [facility] [address] [place] [address] Dr. Kristen Gambino Hematocrit (Bld) [Volume fraction] 41.2 % Normal 36.0-48.0 [facility] Comment on above: Performed By: #### U AMIC #### [facility] [address] [place] [address] Dr. Kristen Gambino Hemoglobin (Bld) [Mass/Vol] 13.8 g/dL Normal 12.0-16.0 [facility] Comment on above: Performed By: #### U AMIC #### [facility] [address] [place] [address] Dr. Kristen Gambino IG # 0.03 10e3/ul Normal 0.00-0.03 [facility] Comment on above: Performed By: #### U AMIC #### [facility] [address] [place] [address] Dr. Kristen Gambino IG % 0.2 % Normal 0.0-0.5 [facility] Comment on above: Performed By: #### U AMIC #### [facility] [address] [place] [address] Dr. Kristen Gambino LYMPH # 3.5 103/ul Normal 1.2-3.8 [facility] Comment on above: Performed By: #### U AMIC #### [facility] [address] [place] [address] Dr. Kristen Gambino Lymphocytes/100 WBC (Bld) 28.4 % Normal 20.5-60.0 [facility] Comment on above: Performed By: #### U AMIC #### [facility] [address] [place] [address] Dr. Kristen Gambino MANUAL DIFF REQ NO Normal [facility] Comment on above: Performed By: #### U AMIC #### [facility] [address] [place] [address] Dr. Kristen Gambino MCH (RBC) [Entitic mass] 27.8 pg Normal 26.7-34.0 [facility] Comment on above: Performed By: #### U AMIC #### [facility] [address] [place] [address] Dr. Kristen Gambino MCHC (RBC) [Mass/Vol] 33.5 g/dL Normal 29.9-35.2 [facility] Comment on above: Performed By: #### U AMIC #### [facility] [address] [place] [address] Dr. Kristen Gambino MCV (RBC) [Entitic vol] 82.9 fL Normal 81.0-99.0 [facility] Comment on above: Performed By: #### U AMIC #### [facility] [address] [place] [address] Dr. Kristen Gambino MONO # 0.9 103/ul Critically high 0.3-0.8 [facility] Comment on above: Performed By: #### U AMIC #### [facility] [address] [place] [address] Dr. Kristen Gambino Monocytes/100 WBC (Bld) 7.0 % Normal 1.7-12.0 [facility] Comment on above: Performed By: #### U AMIC #### [facility] [address] [place] [address] Dr. Kristen Gambino NEUT # 7.8 103/ul Critically high 1.4-6.5 [facility] Comment on above: Performed By: #### U AMIC #### [facility] [address] [place] [address] Dr. Kristen Gambino Neutrophils/100 WBC (Bld) 62.4 % Normal 43.0-75.0 [facility] Comment on above: Performed By: #### U AMIC #### [facility] [address] [place] [address] Dr. Kristen Gambino Platelet mean volume (Bld) [Entitic vol] 9.6 fL Normal 9.5-13.5 [facility] Comment on above: Performed By: #### U AMIC #### [facility] [address] [place] [address] Dr. Kristen Gambino PLT 409 103/ul Normal 150-450 [facility] Comment on above: Performed By: #### U AMIC #### [facility] [address] [address] [address] Kristen Gambino RBC 4.97 106/ul Normal 4.20-5.40 [facility] Comment on above: Performed By: #### U AMIC #### [facility] [address] [place] [address] Dr. Kristen Gambino WBC 12.5 103/ul Critically high 4.0-11.[address] [facility] Comment on above: Performed By: #### U AMIC #### [facility] [address] [place] [address] HEAD WO CONon 09-23-2022 CT HEAD WO CON EXAMINATION: CT HEAD WO CON, 09/22/2022 10:07 PM EDT HISTORY: HEADACHE COMPARISON: MRI pituitary 08/02/2019, CT brain 05/16/2017 TECHNIQUE: CT scan of the head was performed without IV contrast. CT dose reduction technique was used, including Automated Exposure Control. FINDINGS: BRAIN PARENCHYMA/CSF SPACES: Ventricles are normal in size for age. There is no hemorrhage, mass effect or midline shift. Mild low-attenuation in the white matter which may be due to chronic small vessel ischemia but is nonspecific. Stable tiny lipoma along the anterior falx. There is stable prominent CSF density in the sella which appears somewhat expanded. This may be due to empty sella or arachnoid cyst is noted on the previous MRI pituitary from 08/02/2019. PARANASAL SINUSES: Clear. SKULL BASE AND CALVARIUM: Normal. EXTRACRANIAL SOFT TISSUES: Normal. IMPRESSION: 1. No acute intracranial abnormality. 2. Mild hypodensity in the white matter which is nonspecific and may be due to chronic small vessel ischemia but other etiologies are possible including chronic hypertensive encephalopathy, migraine headaches, vasculitis and demyelinating disease. 3. Stable prominent CSF density and expansion of the sella which was noted on MRI from 08/02/2019 and may be secondary to an empty sellar arachnoid cyst. Of note, empty sella can be associated with headaches and visual disturbances in the setting of intracranial hypertension. Electronically authenticated by: TERRI LANDAVERDE Date: 2022-09-22 23:00 Normal [facility] PROF 14(COMP METB)on 023 Albumin [Mass/Vol] 3.5 g/dL Normal 3.4-5.0 [facility] Comment on above: Performed By: #### C VDTBH #### [facility] [address] [place] [address] Dr. Kristen Gambino Albumin/Globulin [Mass ratio] 0.8 {ratio} Normal [facility] Comment on above: Performed By: #### C VDTBH #### [facility] [address] [place] [address] Dr. Kristen Gambino ALP [Catalytic activity/Vol] 67 U/L Normal 46-116 [facility] Comment on above: Performed By: #### C VDTBH #### [facility] [address] [place] [address] Dr. Kristen Gambino ALT [Catalytic activity/Vol] 29 U/L Normal 14-59 [facility] Comment on above: Performed By: #### C VDTBH #### [facility] [address] [place] [address] Dr. Kristen Gambino Anion gap [Moles/Vol] 12.0 mmol/L Normal [facility] Comment on above: Performed By: #### C VDTBH #### [facility] [address] [place] [address] Dr. Kristen Gambino AST [Catalytic activity/Vol] 17 U/L Normal 15-37 [facility] Comment on above: Performed By: #### C VDTBH #### [facility] [address] [place] [address] Dr. Kristen Gambino Bilirubin [Mass/Vol] 0.4 mg/dL Normal 0.2-1.0 [facility] Comment on above: Performed By: #### C VDTBH #### [facility] [address] [address] [address] Kristen Gambino Calcium [Mass/Vol] 9.5 mg/dL Normal 8.5-10.1 [facility] Comment on above: Performed By: #### C VDTBH #### [facility] [address] [address] [address] Kristen Gambino Chloride [Moles/Vol] 101 mmol/L Normal 98-107 [facility] Comment on above: Performed By: #### C VDTBH #### [facility] [address] [place] [address] Dr. Kristen Gambino CO2 [Moles/Vol] 28.9 mmol/L Normal 21.0-32.0 [facility] Comment on above: Performed By: #### C VDTBH #### [facility] [address] [place] [address] Dr. Kristen Gambino Creatinine [Mass/Vol] 0.60 mg/dL Normal 0.55-1.02 [facility] Comment on above: Performed By: #### C VDTBH #### [facility] [address] [place] [address] Dr. Kristen Gambino EGFR-AF COMORAN >60 Normal >=60 [facility] Comment on above: Performed By: #### C VDTBH #### [facility] [address] [place] [address] Dr. Kristen Gambino EGFR-NON AF COMORAN >60 Normal >=60 [facility] Comment on above: Performed By: #### C VDTBH #### [facility] [address] [place] [address] Dr. Kristen Gambino Globulin (S) [Mass/Vol] 4.5 g/dL Normal [facility] Comment on above: Performed By: #### C VDTBH #### [facility] [address] [place] [address] Dr. Kristen Gambino Glucose [Mass/Vol] 108 mg/dL Critically high 74-106 [facility] Comment on above: Performed By: #### C VDTBH #### [facility] [address] [address] [address] Kristen Gambino Potassium [Moles/Vol] 3.9 mmol/L Normal 3.5-5.1 [facility] Comment on above: Performed By: #### C VDTBH #### [facility] [address] [place] [address] Dr. Kristen Gambino Protein [Mass/Vol] 8.0 g/dL Normal 6.4-8.2 [facility] Comment on above: Performed By: #### C VDTBH #### [facility] [address] [place] [address] Dr. Kristen Gambino Sodium [Moles/Vol] 138 mmol/L Normal 136-145 [facility] Comment on above: Performed By: #### C VDTBH #### [facility] [address] [place] [address] Dr. Kristen Gambino Urea nitrogen [Mass/Vol] 10.0 mg/dL Normal 7.0-18.0 [facility] Comment on above: Performed By: #### C VDTBH #### [facility] [address] [place] [address] Dr. Kristen Gambino Urea nitrogen/Creatinine [Mass ratio] 16.7 mg/mg [facility] Comment on above: Performed By: #### C VDTBH #### [facility] [address] [place] [address] Dr. Kristen Gambino PAP ACOG PANEL 2: 30 to 65on 08-15-2022 . . Normal [facility] Comment on above: Result Comment: Perf ormed at: WB Performed By: #### [id number] #### [facility] [address] [place] [address] Dr. Kristen Gambino Age Gdln ACOG Testing 30-65 [facility] Comment on above: Performed By: #### [id number] #### [facility] [address] [place] [address] Dr. Kristen Gambino DIAGNOSIS: Comment Normal [facility] Comment on above: Result Comment: NEGA TIVE FOR INTRAEPITHELIAL LESION OR MALIGNANCY. Performed at: WB Performed By: #### [id number] #### [facility] [address] [place] [address] Dr. Kristen Gambino HPV Aptima Negative Normal Negative [facility] Comment on above: Result Comment: This nucleic acid amplification test detects fourteen high-risk HPV types (16,18,31,33,35,39,45,51,52,56,58,59,66,68) without differentiation. Performed at: =G Performed By: #### [id number] #### [facility] [address] [place] [address] Dr. Kristen Gambino HPV Genotype Reflex Comment Normal [facility] Comment on above: Result Comment: Crit eria not met, HPV Genotype not performed. Performed at: WB Performed By: #### [id number] #### [facility] [address] [place] [address] Dr. Kristen Gambino Methodology: Comment Normal [facility] Comment on above: Result Comment: This liquid based ThinPrep(R) pap test was screened with the use of an image guided system. Performed at: WB Performed By: #### [id number] #### [facility] [address] [place] [address] Dr. Kristen Gambino Note: Comment Normal [facility] Comment on above: Result Comment: The Pap smear is a screening test designed to aid in the detection of premalignant and malignant conditions of the uterine cervix. It is not a diagnostic procedure and should not be used as the sole means of detecting cervical cancer. Both false-positive and false-negative reports do occur. . Performed at: WB Performed By: #### [id number] #### [facility] [address] [place] [address] Dr. Kristen Gambino Performed by: Comment Normal [facility] Comment on above: Result Comment: Nila Romo, Lead Oxide Mill Tender (ASCP) Performed at: WB Performed By: #### [id number] #### [facility] [address] [place] [address] Dr. Kristen Gambino Specimen adequacy: Comment Normal [facility] Comment on above: Result Comment: Sati sfactory for evaluation. Endocervical and/or squamous metaplastic cells (endocervical component) are present. Performed at: WB Performed By: #### [id number] #### [facility] [address] [address] [address] Kristen Gambino US PELVIS AND TRANSVAGon US PELVIS AND TRANSVAG EXAMINATION: US PELVIS AND TRANSVAG HISTORY: Pelvic and perineal pain COMPARISON: Ultrasound pelvis 04/13/2021 TECHNIQUE: Transabdominal and transvaginal sonographic examination. FINDINGS: UTERUS: 1.8 cm fundal myometrial mass favoring a leiomyoma. Uterus size: 8.8 x 4.7 x 6.5 cm ENDOMETRIUM: Normal homogeneous appearance. Endometrial thickness: 5 mm RIGHT OVARY: Contains a 3.0 cm benign-appearing cyst. Duplex Doppler demonstrates normal waveform and flow; resistive index 0.3. Ovary size: 4.3 x 2.9 x 2.8 cm LEFT OVARY: Contains a 3.7 cm benign-appearing cyst. Duplex Doppler demonstrates normal waveform and flow; resistive index 0.5. Ovary size: 5.2 x 4.3 x 3.1 cm CUL-DE-SAC: Unremarkable. No significant free fluid. BLADDER: Unremarkable. OTHER: None. IMPRESSION: 1. Slightly prominent but benign-appearing bilateral ovarian cysts which could contribute to patient's symptoms. No additional follow-up recommended at this time. Electronically authenticated by: TERRI DELANEY Date: 2022-08-14 07:35 Normal [facility] CULTURE URINEon 08-10-2022 CULTURE URINE Isolate 1 Pseudomonas aeruginosa <10,000 cfu/mL of ORGANISM 1 Pseudomonas aeruginosa ANTIBIOTIC M.I.C RX STATUS Piperacillin/Tazobactam <=4 S F Ceftazidime 2 S F Imipenem 2 S F Amikacin <=2 S F Gentamicin <=1 S F Tobramycin <=1 S F Ciprofloxacin <=0.25 S F Levofloxacin 0.25 S F Normal [facility] Comment on above: Performed By: #### U AMIC #### [facility] [address] [place] [address] Dr. Kristen Gambino MG MAMM SCREEN 3D ARCHIE CADon 03-06-2022 MG MAMM SCREEN 3D ARCHIE CAD Patient: GLADIS MICHAEL Exam Date: 03/06/2022 : 1975 Gender:F Ordering : [facility] Admission #: [id number] Family : Order #: [id number] CLICK HERE TO VIEW EXAM RADIOLOGY REPORT PROCEDURE: MAMMOGRAM SCREENING 3D BILATERAL CAD COMPARISON: MG MAMM ARCHIE SCRN W CAD DIG, 10/14/2012. MG MAMM ARCHIE DIAG W CAD, 02/15/2015. INDICATIONS: Screening mammography Calculator Name NCI Breast Cancer Risk Assessment Tool 5 Year Breast Cancer Risk 0.80% Lifetime Breast Cancer Risk 9.30% Personal Breast Cancer No Personal Ovarian Cancer No Treatments None Family Cancers Aunt-maternal with breast cancer at age 82; Father with lung cancer at age 51; Brother with brain cancer at age 41. LOCATION: [facility] BREAST COMPOSITION: Scattered areas fibroglandular density. FINDINGS: DIAGNOSTIC CATEGORY 1--NEGATIVE. NO CHANGE FROM COMPARISON ASSESSMENT. Scattered benign-appearing calcifications are present. Scattered benign-appearing lymph nodes are present. RIGHT BREAST: No significant suspicious finding. LEFT BREAST: No significant suspicious finding. RECOMMENDATIONS: ROUTINE MAMMOGRAM AND CLINICAL EVALUATION IN 12 MONTHS. PLEASE NOTE: A NORMAL MAMMOGRAM DOES NOT EXCLUDE THE POSSIBILITY OF BREAST CANCER. A CLINICALLY SUSPICIOUS PALPABLE LUMP SHOULD BE BIOPSIED. Dictated by: Shade Romo MD on 03/06/2022 at 14:22 Approved by: Shade Romo MD on 03/06/2022 at 14:25 Normal [facility] Covid-19 PCR (CVDTBH)on 01-07 SARS-CoV-2 (COVID-19) RNA GARTH+probe Ql (Unsp spec) Not detected Normal NOT DETECTED [facility] Comment on above: Result Comment: This test is not yet approved or cleared by the [place] FDA. When there are no FDA-approved or cleared tests available, and other criteria are met, FDA can make tests available under an emergency access mechanism called an Emergency Use Authorization (EUA). The EUA for this test is supported by the Refrigerator Mover of Health and Human Service's (HHS's) declaration that circumstances exist to justify the emergency use of in vitro diagnostics for the detection and/or diagnosis of the virus that causes COVID-19. This EUA will remain in effect (meaning this test can be used) for the duration of the COVID-19 declaration justifying emergency of IVDs, unless it is terminated or revoked by FDA (after which the test may no longer be used). When diagnostic testing is negative, the possibility of a false negative should be considered in the context of a patient's recent exposures and the presence of clinical signs and symptoms consistent with SARS-CoV-2. Performed By: #### C VDTB #### [facility] [address] [place] [address] Dr. Kristen Gambino CULTURE URINEon 01-19-2022 CULTURE URINE Culture Observations : Called Group B Strep to Martha Robbins LPN Isolate 1 Streptococcus agalactiae 35,000 cfu/mL of ORGANISM 1 Streptococcus agalactiae ANTIBIOTIC M.I.C RX STATUS Benzylpenicillin <=0.06 S F Ampicillin <=0.25 S F Cefotaxime <=0.12 S F Ceftriaxone <=0.12 S F Levofloxacin 0.5 S F Erythromycin 2 R F Clindamycin <=0.25 S F Linezolid <=2 S F Vancomycin 0.5 S F Tetracycline >=16 R F Normal [facility] Comment on above: Performed By: #### U AMIC #### [facility] [address] [place] [address] Dr. Kristen Gambino CBC AUTO DIFFon 01-17-2022 BASO # 0.2 103/ul Critically high 0.0-0.1 [facility] Comment on above: Performed By: #### C BC #### [facility] [address] [place] [address] Dr. Kristen Gambino Basophils/100 WBC (Bld) 1.3 % Normal 0.2-2.0 [facility] Comment on above: Performed By: #### C BC #### [facility] [address] [place] [address] Dr. Kristen Gambino EO # 0.3 103/ul Normal 0.0-0.7 [facility] Comment on above: Performed By: #### C BC #### [facility] [address] [place] [address] Dr. Kristen Gambino Eosinophils/100 WBC (Bld) 1.9 % Normal 0.9-7.0 [facility] Comment on above: Performed By: #### C BC #### [facility] [address] [place] [address] Dr. Kristen Gambino Erythrocyte distribution width (RBC) [Ratio] 13.4 % Normal 11.0-15.0 [facility] Comment on above: Performed By: #### C BC #### [facility] [address] [address] [address] Kristen Gambino Hematocrit (Bld) [Volume fraction] 41.3 % Normal 36.0-48.0 [facility] Comment on above: Performed By: #### C BC #### [facility] [address] [place] [address] Dr. Kristen Gambino Hemoglobin (Bld) [Mass/Vol] 13.6 g/dL Normal 12.0-16.0 [facility] Comment on above: Performed By: #### C BC #### [facility] [address] [place] [address] Dr. Kristen Gambino IG # 0.07 10e3/ul Critically high 0.00-0.03 [facility] Comment on above: Performed By: #### C BC #### [facility] [address] [place] [address] Dr. Kristen Gambino IG % 0.4 % Normal 0.0-0.5 [facility] Comment on above: Performed By: #### C BC #### [facility] [address] [place] [address] Dr. Kristen Gambino LYMPH # 3.6 103/ul Normal 1.2-3.8 [facility] Comment on above: Performed By: #### C BC #### [facility] [address] [place] [address] Dr. Kristen Gambino Lymphocytes/100 WBC (Bld) 22.4 % Normal 20.5-60.0 [facility] Comment on above: Performed By: #### C BC #### [facility] [address] [place] [address] Dr. Kristen Gambino MANUAL DIFF REQ NO Normal [facility] Comment on above: Performed By: #### C BC #### [facility] [address] [address] [address] Kristen Gambino MCH (RBC) [Entitic mass] 27.8 pg Normal 26.7-34.0 [facility] Comment on above: Performed By: #### C BC #### [facility] [address] [place] [address] Dr. Kristen Gambino MCHC (RBC) [Mass/Vol] 32.9 g/dL Normal 29.9-35.2 [facility] Comment on above: Performed By: #### C BC #### [facility] [address] [address] [address] Kristen Gambino MCV (RBC) [Entitic vol] 84.5 fL Normal 81.0-99.0 [facility] Comment on above: Performed By: #### C BC #### [facility] [address] [place] [address] Dr. Kristen Gambino MONO # 1.1 103/ul Critically high 0.3-0.8 [facility] Comment on above: Performed By: #### C BC #### [facility] [address] [place] [address] Dr. Kristen Gambino Monocytes/100 WBC (Bld) 7.0 % Normal 1.7-12.0 [facility] Comment on above: Performed By: #### C BC #### [facility] [address] [place] [address] Dr. Kristen Gambino NEUT # 10.7 103/ul Critically high 1.4-6.[address] [facility] Comment on above: Performed By: #### C BC #### [facility] [address] [place] [address] Dr. Kristen Gambino Neutrophils/100 WBC (Bld) 67.0 % Normal 43.0-75.0 [facility] Comment on above: Performed By: #### C BC #### [facility] [address] [place] [address] Dr. Kristen Gambino Platelet mean volume (Bld) [Entitic vol] 9.3 fL Critically low 9.5-13.5 [facility] Comment on above: Performed By: #### C BC #### [facility] [address] [address] [address] Kristen Gambino PLT 502 103/ul Critically high 150-450 [facility] Comment on above: Performed By: #### C BC #### [facility] [address] [address] [address] Kristen Gambino RBC 4.89 106/ul Normal 4.20-5.40 [facility] Comment on above: Performed By: #### C BC #### [facility] [address] [address] [address] Kristen Gambino WBC 16.0 103/ul Critically high 4.0-11.0 [facility] Comment on above: Performed By: #### C BC #### [facility] [address] [place] [address] Dr. Kristen Gambino PROF 14(COMP METB)on 022 Albumin [Mass/Vol] 4.0 g/dL Normal 3.4-5.0 [facility] Comment on above: Performed By: #### C MP #### [facility] [address] [place] [address] Dr. Kristen Gambino Albumin/Globulin [Mass ratio] 0.9 {ratio} Normal [facility] Comment on above: Performed By: #### C MP #### [facility] [address] [place] [address] Dr. Kristen Gambino ALP [Catalytic activity/Vol] 72 U/L Normal 46-116 [facility] Comment on above: Performed By: #### C MP #### [facility] [address] [place] [address] Dr. Kristen Gambino ALT [Catalytic activity/Vol] 45 U/L Normal 14-59 [facility] Comment on above: Performed By: #### C MP #### [facility] [address] [place] [address] Dr. Kristen Gambino Anion gap [Moles/Vol] 12.4 mmol/L Normal [facility] Comment on above: Performed By: #### C MP #### [facility] [address] [place] [address] Dr. Kristen Gambino AST [Catalytic activity/Vol] 31 U/L Normal 15-37 [facility] Comment on above: Performed By: #### C MP #### [facility] [address] [address] [address] Kristen Gambino Bilirubin [Mass/Vol] 0.6 mg/dL Normal 0.2-1.0 [facility] Comment on above: Performed By: #### C MP #### [facility] [address] [address] [address] Kristen Gambino Calcium [Mass/Vol] 9.2 mg/dL Normal 8.5-10.1 [facility] Comment on above: Performed By: #### C MP #### [facility] [address] [address] [address] Kristen Gambino Chloride [Moles/Vol] 101 mmol/L Normal 98-107 [facility] Comment on above: Performed By: #### C MP #### [facility] [address] [address] [address] Kristen Gambino CO2 [Moles/Vol] 26.3 mmol/L Normal 21.0-32.[address] [facility] Comment on above: Performed By: #### C MP #### [facility] [address] [address] [address] Kristen Gambino Creatinine [Mass/Vol] 0.74 mg/dL Normal 0.55-1.02 [facility] Comment on above: Performed By: #### C MP #### [facility] [address] [address] [address] Kristen Gambino EGFR-AF COMORAN >60 Normal >=[address] [facility] Comment on above: Performed By: #### C MP #### [facility] [address] [address] [address] Kristen Gambino EGFR-NON AF COMORAN >60 Normal >=60 [facility] Comment on above: Performed By: #### C MP #### [facility] [address] [address] [address] Kristen Gambino Globulin (S) [Mass/Vol] 4.4 g/dL Normal [facility] Comment on above: Performed By: #### C MP #### [facility] [address] [address] [address] Kristen Gambino Glucose [Mass/Vol] 106 mg/dL Normal 74-106 [facility] Comment on above: Performed By: #### C MP #### [facility] [address] [address] [address] Kristen Gambino Potassium [Moles/Vol] 3.7 mmol/L Normal 3.5-5.1 [facility] Comment on above: Performed By: #### C MP #### [facility] [address] [address] [address] Kristen Gambino Protein [Mass/Vol] 8.4 g/dL Critically high 6.4-8.2 [facility] Comment on above: Performed By: #### C MP #### [facility] [address] [address] [address] Kristen Gambino Sodium [Moles/Vol] 136 mmol/L Normal 136-145 [facility] Comment on above: Performed By: #### C MP #### [facility] [address] [address] [address] Kristen Gambino Urea nitrogen [Mass/Vol] 14.0 mg/dL Normal 7.0-18.0 [facility] Comment on above: Performed By: #### C MP #### [facility] [address] [address] [address] Kristen Gambino Urea nitrogen/Creatinine [Mass ratio] 18.9 mg/mg Normal [facility] Comment on above: Performed By: #### C MP #### [facility] [address] [address] [address] Kristen Gambino UA RANDOM W/MICROSCOPICon BACTERIA TRACE Abnormal NONE SEEN [facility] Comment on above: Performed By: #### U AMIC #### [facility] [address] [address] [address] Kristen Gambino Bilirubin Ql (U) Negative Normal NEGATIVE [facility] Comment on above: Performed By: #### U AMIC #### [facility] [address] [address] [address] Kristen Gambino CA OX CRYSTALS MODERATE Normal [facility] Comment on above: Performed By: #### U AMIC #### [facility] [address] [address] [address] Kristen Gambino CAST NONE SEEN Normal NONE SEEN [facility] Comment on above: Performed By: #### U AMIC #### [facility] [address] [address] [address] Kristen Gambino Clarity (U) CLEAR Normal CLEAR [facility] Comment on above: Performed By: #### U AMIC #### [facility] [address] [address] [address] Kristen Gambino Color (U) YELLOW Normal YELLOW [facility] Comment on above: Performed By: #### U AMIC #### [facility] [address] [address] [address] Kristen [employer] LM Nom (Urine sed) SEEN Abnormal NONE SEEN [facility] Comment on above: Performed By: #### U AMIC #### [facility] [address] [address] [address] Kristen Gambino Epithelial cells LM Ql (Urine sed) MODERATE Abnormal NONE SEEN /RARE [facility] Comment on above: Performed By: #### U AMIC #### [facility] [address] [address] [address] Kristen Gambino Glucose Ql (U) Negative Normal NEGATIVE The [facility] Comment on above: Performed By: #### U AMIC #### [facility] [address] [address] [address] Krisetn Gambino Hemoglobin Ql (U) Negative Normal NEGATIVE The [facility] Comment on above: Performed By: #### U AMIC #### [facility] [address] [address] [address] Kristen Gambino Ketones Ql (U) Negative Normal NEGATIVE The [facility] Comment on above: Performed By: #### U AMIC #### [facility] [address] [place] [address] Dr. Kristen Gambino LEUKOCYTES SMALL Abnormal NEGATIVE The [facility] Comment on above: Performed By: #### U AMIC #### [facility] [address] [address] [address] Kristen Gambino MUCOUS SMALL Abnormal NONE SEEN [facility] Comment on above: Performed By: #### U AMIC #### [facility] [address] [place] [address] Dr. Kristen Gambino Nitrite Ql (U) Negative Normal NEGATIVE The [facility] Comment on above: Performed By: #### U AMIC #### [facility] [address] [place] [address] Dr. Kristen Gambino pH (U) 5.0 [pH] Normal 5-9 [facility] Comment on above: Performed By: #### U AMIC #### [facility] [address] [place] [address] Dr. Kristen Gambino RBC NONE SEEN Abnormal 0-2 [facility] Comment on above: Performed By: #### U AMIC #### [facility] [address] [place] [address] Dr. Kristen Gambino SPEC GRAVITY >=1.030 Abnormal 1.005-<=1.0 25 [facility] Comment on above: Performed By: #### U AMIC #### [facility] [address] [place] [address] Dr. Kristen Gambino UA PROTEIN Negative Normal NEGATIVE/ TRACE [facility] Comment on above: Performed By: #### U AMIC #### [facility] [address] [address] [address] Kristen Gambino Urobilinogen Qn (U) 0.2 {Sonya'U}/dL Normal 0.2 - 1. 0 [facility] Comment on above: Performed By: #### U AMIC #### [facility] [address] [place] [address] Dr. Kristen Gambino WBC 5-10 Abnormal NONE SEEN [facility] Comment on above: Performed By: #### U AMIC #### [facility] [address] [place] [address] Dr. Kristen Gambino XR TSPINE 2 VIEWSon 01-12-20 22 XR TSPINE 2 VIEWS EXAMINATION: XR TSPI NE 2 VIEWS HISTORY: Thoracic back pain COMPARISON: No relevant comparison available. FINDINGS: BONES: Minimal right convex curvature of mid thoracic spine positioning versus muscle spasm. No fracture, spondylolisthesis, or bone lesion. DISC SPACES: Minimal degenerative changes. No significant disc height narrowing, subluxation, or endplate abnormality. PARASPINOUS: Negative. No paraspinous abnormality is seen. OTHER: Negative. IMPRESSION: 1. Minimal degenerative changes. 2. No specific findings to account for patient's symptoms. Electronically authenticated by: TERRI DELANEY Date: 2022-01-11 07:20 Normal [facility] Operative Reporton Operative Report [id number]#[id number]:127 Normal [facility] Operative Report [id number]#1.00CD:127 Normal [facility] Physician Referralon 022 Physician Referral [id number]#1.00CD:127 Normal [facility] Coding Summary.on 10-30-2021 Coding Summary. CD:[id number] Gh0bWw+ PGhlYWQ+UN9JWLKxP03zcCVagQ4 EY5iBIL4ABZTDXVJYID1EGW7usN E0FSwyC9MvxgSu ZatcuWApVK73IWy9CFX6pGkpJUb srY7opUTfT3x0TxMnWY27qA94TY hrUELvGoA6NvUvrtxquXKh I6ssXeKylYAfWjf+PHRhYmxlIHd bTZMcZFhyPOKsIhEykUkyRW3iXf 9yZGVyLWNvbGxhcHNlOiBj e1jmIUKmUOsdLA9ziShiL3WomNA 1OMLbj6c8Nv39jGU+NBMvATB9iI jnMChei704XtSpm5laGWK8 qWTtNNeeWYR9U74xf5B9RGAiIBN tMKW6sBU2qN8pdYbcfglxT8BirC OaXuN4CMD4qYOcpN6whHiu pvmnfH8vSuz+Q14KHR7BFRASYZ0 WTvo0O2OzQvdxlFI+MN58VZNiUS 37gVTwjVXws5hoeFq1TmPv PNHnUHD5xYvjLLerx1GyCAVbT65 sxVQue4N0MVBebUdsqOGvEuYwgM T9hJ5rLYreaheax4ymuojr Fclzg7yjcx78aH23B43aOWzqGWN pQWX3VHHbNTSunHgdpc9uvG0pSn 8+YJbfj1vyk0wspNi7QrCy DUVhxbHizFfyCMZ0h7LfRb58J4O maAprd9SuKiv8bd40aBYzc3E1aG X2UBxiEKHnrK1kOQmoOdP9 KOOaPkHmhI56vBOpSEzcLw4cuOh csUvbCR4pZBNalqyuEWXdgU0yRB NepKRabAoxZG1dCZUmxbrl o658WfFyHGC3TTBgwRClB2VwxA3 oNhZaNLAlYTGuP5YduNNiRAqqP2 89LFqpAyH5MWMzeaDbV5Jg OKZfrMtkDxQ5y7P2Oj9Xr6Cuamq nIQG1NHndBNO2ArE8SaMaPcV3C6 YkQoa6LEIwrDzqDD9oN9Kh GACsgfzpgsbziLX2TZLtKJYtyP7 0cBPdPSkcWf6lm0C5u334BECkKI ImdG80Mj4wxHnkLBHnuEYU nB6egtjec5kvocrgSoLtJJIxSWj 3VHi6VRXyeGhwLtPlBGP4EpG3GZ E5bZIurX5caApmlvopuH3m Oyc+G46raH6xPIO9SCR0ztziEEG kgnKpKL95WW76J7KdUbdvfUVopL U+QQWminEfqWcfCG6nQoUf k3pkk0HqOJnoK6DcKVUaQPgoCgc 9CFZjACJ6oGE0wL3cUEGxWFdtt3 R1gKS2B1WipzGios8nf3rp YSQgGVzfI64jgKOfw9B5SJUirWG 5OURxjYpeMiQimL13Orq+PGNvbG juq4BnKhnlu8qcs4qkoXq3 MzMsYQLikfYmyLhwIEW9p6PkYj5 4V09lXHllBYPuMULmHISoHMCpoG kqlb7puD3bQz8+PGNvbCB3 tOR9aD1fCPYuOhH8ASvoM433HdL otFEmAwisr8krf2jroYq3JcKtMZ QssaWlkGkuPEA4s1WrWt57 R85sSPdcNDQlSRVdJOYvXIFiqDm pwe3mjQ2dYv8+NY1hk6qkah02mS 48dHI+NKRiMKB9eRdsVEqo AOMijL0bXAkuObK4YMFoJbKlgO1 3tGGcALkkFw0roXwqmBnlUS2xWF Mhfifsz185RxRuw4bzFDUp jWKtYTatGAZ7M28tv5X0WBJxSQX bMND5vCI7mE5vqZmqzhaxiHXgjR qqfmBbhRwaHQhoIFrbR737 IHRvcDsnPlBhdGllbnQgTmFtZTo 8M0AaZra7SPDyaXewPL3ktEPaPN wrSw3buLiyuApxBB2lLOIl yfkdl243DaGrs9edXTDpjGCzYHz lUKN8N21je8U9BGLyAEIhZJJ2rY J8yO0xoEhyzchhyBUsdBne nwSorIllLPnrCLkeB639HKCbqSw lMmPfdtLeGCTcgKY7BB54ZK82oS Fyg7G4zZF1Y6ItXSPuyhqe oxrgkZG5KYEfAMLcrV78Wm9iwTy tWg3iXKUuTQH0NKYtdHHkX8ClzV 1hGnLdZFXmWGPzN5KbbJKq WCfsC325QWvuTdU2EIUbuqHeT5U cLHYamZrxKwM5c6O8Hp6DA1V0HA 50HX38qZUmi1K9wHI5W3Wt DVSbmmwxpyqipWL3IMAqIZFnsX4 7Ki9prUykHy4aRZNrWLE0IBPnnX ToL8BlmG8oMtQzTDUiGXSj L9PtzZAvRFziJ162JOdcKsG8TEF bgsJyK7CbCNIehZwlXiS0q9T1Mk 9XWUe1LV69YF14iJPsd5W3 qJF9F2BwWZPmtbmheluipPN7GGE lUYSubI54Ag2ygQolEm5jMEXrIN V3SGJcbHKqY1HeeY9gTyCq GJOnVAPnZ9ZfcBNqXSckP863POg gBvL2MOTrheOcS4FmNBVyqRfyTw D7z2A6Ma8BRLYxTS35DUO8 qKA0UO84LF39T9CmWtzgnEYqdJC +PHRhYmxlIHdpZHRoPScxMDAlJy HbuMngML2lZp9wBXOlIACw mKoymZBoRpZmo0zhPDNySNqhOO0 noZeyQ9VlaDW5KTBzg8l5Oi96A0 2yG4RymDU+VXDcrQF1gPR5 iF9kLdOdVaD1ZEbnU904WgEwcTB qMwgvg5yvr5ieuGu6LpE9TLTixo XpfLwtUMA2l7WdAp17O83d IHdpZHRoPSIxNSUiIHZhbGlnbj0 xnF8bJo7+XDBehCX2sHG4lF6pTd WwPtY7JThbF201PyHsfAZr Dzder6wag6mvjVx4QoQgGERkmnI ukFahTWT8m1YmAi57Q7QxiCgai7 QrPhz0di30lKNac8F4uWY8 W3YmIKWlchaxbYDncAbvYY4pQSK stmmkCGFmcL7qSEYgG7h5LqJySs Q6HFuiM3ZrkdN4KLSgvLWx AKzvJCS1P92zf5T8RTGpIPXyVSY 4xBG0hN3ndJhjiskqhUYvaAvksn ZcdFzvNDpyMSwkO553OICl yGitAEJeoP6yLKIxnLSumThaNZ0 wNTBpbjsnPlZPTExNQVIsIEVMSV qBJpJSLTYLID34AW90yQMw u0L4gPH9W5OpXSUteuteciftfPC 9BXIsQPVokE73tSNhXPrqKd2wr6 N2b413YBEdWOAtbS53Sz8m gSziPEUdmUQGsP7pxkifq0rzepz wBnFvBHFsZUh5DVn4IGEghDpqSb DmLUL5SjD3GTZ0lDLyeA9r sLaoqzovgM3mBxq+MDEvMDUvMTk 3NjwvdGQ+PWNnBMS8jAxvFQslFQ ClfA2xPZFuX2m6BhJqBkC6 FAgwX9CyLYJqhdopWy62sA1dOsK oQuG3RJcwS7NeleJ6QLRqgYKxGI oiFSG1L31bd7I9CQOlOHDo OOZ4iGA9wF0lbYnwuulvnBSzbIp rwjYiaHuuYKocYBnsQ898YLUhkH zsFwI5MWdvCAKjFN71GW88 dNUyp1L3kTN0W6YlMMRefvqumhr mfMK6RHRiKKEoqY91bLVzKQruTq 2ng9D0g679OGHyZTUcyE05 Is0mrOkaDRRbhIWDnG5sfgvpb9m lldrbMmAhGWAlCOb8KUe9JSFviB ftVgDzALQ9VdG7TYO3yKAi dT7wqCkakiqfhZ1nYzl+RmVtYWx mEI41BK88yMBbm4K7bNR1K8XrDY BrffatcytocDR6IMGqLMDj gS92lWDqQMvcMt8mz6A8w843MGL rILMrkX86Fn1icYnxRAMiwYLKuX 6jttpaj0bvrcokIxRkIFVm JQm5XXo2AETvaTatNwHtKDB2YuO 1LAD9bSFzvY9tjDxgwromyL1bHq c+DU1phtfprmG2QT02VG49 I3LuFebejYEvzXJ+PHRhYmxlIHd qKXHdHAoaMPIeGeXdcAzuLT6vSe 9yZGVyLWNvbGxhcHNlOiBj o8ubQAApYImgTI8hfIulR4FxeOL 6KWXos5j7Ja98Q60uK8MvuQI+PG NrcDL7fQE1sE4nNmPgEmR0 YUnzZ732SrVcnUWeDzcag1idt7t suZa9SqFuJQFogfDhbYczDIC7j8 DfOx13T93cFHgxFWTxLXAa IQAzUPWhkQqvch9gwH0fFt4+PGN gwUN0jSU9sD5bSvJsWfW3SJdbP5 46CvNdkMAsKaiwC78tI7Ah dXA+HKGiSxs7RQNovBlyKV1jrNZ cPLgkAx9cLUR3WiYnEgMqXHdyG8 JjXHIvrvvthcobeJI9AHEu CMUsbK46Yi6nhRkuAr6aSNPrILM 0NDIwxCIvS9GfnQ2xEjFsUNMhEL VjH2TqiQMkIIihE936KNvh NxQ9QIFyfbUoM2VoAWLxfKlgIhK 2o2X5Sy3SzNdkzVFbZA7iPtRhOM q7Y8TfShx8HESllYqyFO0d lIIvDFqaNt3mxKthjJmqIN4dFUI thpmrh707PdSks3cjARGtcLLyKN qeIRD1X87nj9B6APEvYYQi KPQ1lTH9yQ1qkWohlqkvnKVchGb wskMaeAfiUAmvDXpjF415JYFfeD dbEoYQWul8N5PvBqd7YWLl fRubXV3xbPRvAYbbTy1duPxrbNc xQB1cAEDmxkesu704RvAos5jcLK SpcZFnHDejLVK6T70yn0R8 HLUwTHUqFII8mDR9iM4akZouzau gbGVmdDsgdmVydGljYWwtYWxpZ2 34RUFezIudOq6TLex3D0Yi Dfg2RUJhkEcaPQ9fwMCaGBtdYr4 lxNdxlOakZN1aLWEidgpus499Mx Gtg7wuTHRpfDCyNXhnVWO9 O88eo2L2XQLqVTYkERR8rDG5eU4 hbGlnbjogbGVmdDsgdmVydGljYW wgUTxjY031SXBmdPxkZzFv eWVyOjwvdGQ+CS32qy76O4DnSxf kQes9PSTbKQI8uLZ5xF4pBOQjEK lsz6M2iCH9A7HeddXzjr6z b2xs (more content not included)... Normal [facility] CBC AUTO DIFFon 10-26-2021 BASO # 0.1 103/ul Normal 0.0-0.1 [facility] Comment on above: Performed By: #### C BC #### [facility] [address] [address] [address] Kristen Gambino Basophils/100 WBC (Bld) 1.0 % Normal 0.2-2.0 [facility] Comment on above: Performed By: #### C BC #### [facility] [address] [address] [address] Kristen Gambino EO # 0.1 103/ul Normal 0.0-0.7 [facility] Comment on above: Performed By: #### C BC #### [facility] [address] [place] [address] Dr. Kristen Gambino Eosinophils/100 WBC (Bld) 1.0 % Normal 0.9-7.0 [facility] Comment on above: Performed By: #### C BC #### [facility] [address] [place] [address] Dr. Kristen Gambino Erythrocyte distribution width (RBC) [Ratio] 13.2 % Normal 11.0-15.0 [facility] Comment on above: Performed By: #### C BC #### [facility] [address] [place] [address] Dr. Kristen Gambino Hematocrit (Bld) [Volume fraction] 42.5 % Normal 36.0-48.0 [facility] Comment on above: Performed By: #### C BC #### [facility] [address] [place] [address] Dr. Kristen Gambino Hemoglobin (Bld) [Mass/Vol] 13.6 g/dL Normal 12.0-16.0 [facility] Comment on above: Performed By: #### C BC #### [facility] [address] [place] [address] Dr. Kristen Gambino IG # 0.05 10e3/ul Critically high 0.00-0.03 [facility] Comment on above: Performed By: #### C BC #### [facility] [address] [place] [address] Dr. Kristen Gambino IG % 0.4 % Normal 0.0-0.5 [facility] Comment on above: Performed By: #### C BC #### [facility] [address] [place] [address] Dr. Kristen Gambino LYMPH # 2.5 103/ul Normal 1.2-3.8 [facility] Comment on above: Performed By: #### C BC #### [facility] [address] [place] [address] Dr. Kristen Gambino Lymphocytes/100 WBC (Bld) 20.2 % Critically low 20.5-60.0 [facility] Comment on above: Performed By: #### C BC #### [facility] [address] [place] [address] Dr. Kristen Gambino MANUAL DIFF REQ NO Normal [facility] Comment on above: Performed By: #### C BC #### [facility] [address] [place] [address] Dr. Kristen Gambino MCH (RBC) [Entitic mass] 27.2 pg Normal 26.7-34.0 [facility] Comment on above: Performed By: #### C BC #### [facility] [address] [place] [address] Dr. Kristen Gambino MCHC (RBC) [Mass/Vol] 32.0 g/dL Normal 29.9-35.2 [facility] Comment on above: Performed By: #### C BC #### [facility] [address] [place] [address] Dr. Kristen Gambino MCV (RBC) [Entitic vol] 85.0 fL Normal 81.0-99.0 [facility] Comment on above: Performed By: #### C BC #### [facility] [address] [place] [address] Dr. Kristen Gambino MONO # 0.7 103/ul Normal 0.3-0.8 [facility] Comment on above: Performed By: #### C BC #### [facility] [address] [place] [address] Dr. Kristen Gambino Monocytes/100 WBC (Bld) 5.7 % Normal 1.7-12.0 [facility] Comment on above: Performed By: #### C BC #### [facility] [address] [place] [address] Dr. Kristen Gambino NEUT # 9.0 103/ul Critically high 1.4-6.5 [facility] Comment on above: Performed By: #### C BC #### [facility] [address] [place] [address] Dr. Kristen Gambino Neutrophils/100 WBC (Bld) 71.7 % Normal 43.0-75.0 [facility] Comment on above: Performed By: #### C BC #### [facility] [address] [address] [address] Kristen Gambino Platelet mean volume (Bld) [Entitic vol] 9.2 fL Critically low 9.5-13.5 [facility] Comment on above: Performed By: #### C BC #### [facility] [address] [address] [address] Kristen Gambino PLT 413 103/ul Normal 150-450 [facility] Comment on above: Performed By: #### C BC #### [facility] [address] [address] [address] Kristen Gambino RBC 5.00 106/ul Normal 4.20-5.40 [facility] Comment on above: Performed By: #### C BC #### [facility] [address] [place] [address] Dr. Kristen Gambino WBC 12.5 103/ul Critically high 4.0-11.0 [facility] Comment on above: Performed By: #### C BC #### [facility] [address] [place] [address] Dr. Kristen Gambino PREG QUANT HCGon 10-26-2021 HCG QUANT 1 mIU/mL Normal [facility] Comment on above: Performed By: #### P REGQNT #### [facility] [address] [place] [address] Dr. Kristen Gambino HCG RANGE SEE BELOW Normal [facility] Comment on above: Result Comment: 5-50 0-1 WEEK 40-300 1-2 WEEKS 100-1,000 2-3 WEEKS 500-6,000 3-4 WEEKS 5,000-200,000 1-2 MONTHS 10,000-100,000 2-3 MONTHS 3,000-50,000 2ND TRIMESTER 1,000-50,000 3RD TRIMESTER Performed By: #### P REGQNT #### [facility] [address] [place] [address] Dr. Kristen Gambino Coding Summary.on 10-22-2021 Coding Summary. CD:[id number] Gh0bWw+ PGhlYWQ+UU5SCYRhS45osIQhiQ1 BF1bMXS8XOAMLGTAQDN6XJZ2ceZ Z0EEihX0MvywZa ZfchjQQiRR26IXv4DSI4vXvwCNw epD3zxTDaQ6g4KqHzEN13dR90XJ qaOBSoNfR6BnHwthxflKNp G6tiDbXqdIPeVpi+PHRhYmxlIHd iLHAtQSizGGPnBpRedRedXW3mFx 9yZGVyLWNvbGxhcHNlOiBj i7eeSNMaASdaLN2fvSlzX1RhuLD 7WCCrj6e2Yl44gHW+JXQdODZ7lD jqENdtd971BnBcf8neMFJ3 vUBeTPvwXQL4Q92ul8C0LPDbYAG vHRY5mXT2oU3xfNirrzkrD5EkzW PjQjX3QMD0wWCrnC0smZvj iqwjvO1aUpy+Z24TQA0QMJLLIH2 JAzc3C2JmPnnsiQD+MQ15SFShFN 74rAXylDUol9awhKk9FdNl EOJeUAS1wKmkQSdub1JeCHTxV39 nyHRrz8K6VCLruUglcDZtDcRwvW A1sY2qOYccjtzzv5rhqtgv Snfdk3bfac11oL92M29fPXrrDVZ rWAH8XWOoKNApyPckaf2buZ2eRa 8+NJswo3tfb7cmbRv4TqQe BDIzmiXnsZrwZHZ5l1YiMl55W3U lkFpxk4QrAlk9bt84dEByn7L3oQ M7CGwzZKXdlQ4pBWxaTrI1 PJJyPxObjQ73xGHsUUufNc8ixQf wcWevFZ2uZZQvqiocCLIlzN3yHK MpnTRyoHdaPY1eKOUowwox g174TwKoSNY9ZCZypRXuM4RevT6 pJaPeILShFBRcG3PmfMEpFAuoC9 14VSwpAtM0QUXtleFwO7Iy HYGplKifSzS1i5C3Fw5Lr1Hcukg nLSE3OOkmSDZ5RzY1KjNjIfW0W9 BnDpq3XNSviDxnRH0bO0Yb BFNnmuumettqkXA5XXCuTPHlmM2 4qOUzYSvoGn1vb7T0x068NRUnZZ SkxY97Rl8pxDhdYTTmwUSN kR9jigeou9ljqlofZaLbEKVqQEe 7XYi0CAIlrKkcUhNqMJY1PrC2SQ T1tWZbtI4gaViitxzmoC1g Oyc+H37hiE7qOBV7CPT0jhbwAWS xiuZiOQ57BE36B0PdZqcldARfwT U+XCIjovLtkDdaKR6uAbMn v5pzt0WtTZogQ7MdJNMmBMpsHke 0MMMaHXT6cVJ9uI8pOIWeWXujh7 R8sZP1T1ThoiUium8ou3ir MZOmIZtnK36joEAmu5D3YGWwqTH 3JLXmeSucEsIamY15Joh+PGNvbG igz6XwTwuji0dso8iqvWr1 OxFmCFBqvmAdpUerUQZ4s2QpGx7 1O79iLPpaSNEcBYUnKLWkLRPkkD rirn4nhE4bOi9+PGNvbCB3 rVE4gM1mBKHjLgT4ELeyE983JhF rqTYjNflor3ksi1enpLi3TqQlVI VxdeEfcEoeMLN9q2KmQj86 H22xGDuiDJHySNRgQOIpECZniFk wzk8hwH2cFy3+IW1zr1klcb22hY 48dHI+ZYTmATD9zSwtFNov EYYhuG5iORqjPbI2BTJnKgDjgA1 2gRGfJNhzKk3scCilwCxfOZ0iQU Rbxthtv932EuUvy2roZCEd aTVbOIirVKK3Z41rv2S5XNOtJCU lWHP2iUK4mH4zyCblswgpnZUriP iotaBwtDszRHyjZZunA318 IHRvcDsnPlBhdGllbnQgTmFtZTo 0P5DyIta1QYZpkCidZB6ykUAePG ynOc1lnWhuzXgkOY2dTQAx vxjfo232HqDiu1wcHPCbcVSmHEh cNRS3S92hh5P1FYKyLJIkWGJ7cC G2pY0cnOgogwefpHShuGll iaSbzJkqKRvlHIndN601UKZwoQi zMdYwnrPyLCWxoPR1IT07AE42gZ Ptr6V8mPF6E2XyKPDiqner nrngwJP3CFQiXCEqwT01Hl8hzFm xEn7uHYQpKQE6BIBicTQhH7TzwQ 6hOyWwXXVbHDZiZ8TipMYa KWllK977DJmaPcT0QULnmfViU1U nRCIqxDzbSeD8q8I7Yo1QL2U5BD 81FL27nTGot1F8vQP2N3Je EAMrytczamyjuBL0KMYiFPKzlL0 7Ok3jyXpcDn8pRIEfLWY3TZCmkH OrZ9KtfZ8yOxVhHEPyNTRn P5NlrDJyPHstB509LEetRxA4LYB raiJpB8MvSWZqyOllOdA1x5N8Pd 2MWSx8ZF38PW78aCIdj1Y6 lOS0F0IhVOPnexyfptkbtTL2GEA cYXDdrZ12Yg3slIgsSk3pYRNtOG M2BIBxvWSxL1XxfE8vAwJo TMGnNIMsZ8DwiVArNWflB733LOp pWdH0NZTcqoXeE3QdNTNmlHhlDy H2f4D8Lm0JPMRpOI62RQV8 rID3MW34LI31H4AuSdxmgMKhmET +PHRhYmxlIHdpZHRoPScxMDAlJy JnjZjvUL7tRa8fQDQjORFz lKxvcSKqWcRih1shUHGyACsoCM8 yuUabU6UoqJH8WCTnj1t6Go06B7 0sR9KayGW+BZIdeXS1eGP9 xF5uExKaNbT2EVtvP953TrGtuXD tYhtdj8ncs2wcpTh9VyV8GVRchj TylJdzJOB6y7JhDc40M58h IHdpZHRoPSIxNSUiIHZhbGlnbj0 ygR8wBp2+XANowRM4tEV7rK1fBj GaUaC7GAbiO919DaDrzWKe Brgwo6rde2msqRh4VxGpDOXgepW ddRxsGOR1s4UoVi86E5LezFutj5 PjYeo9jc30rZMqo3J0lKK9 V4NlIKOlgmijbTMpoUpmNN5vFKD bkcuoANZxyA2pHKVfX2e5HgTdZk E1IGxdG3LkcgL7PEQbuHPw LUsqQKR2F99xp4C1RXIbETJjVVT 3tIS9wM2kqRijfvqglCMjyBnbqo BixZekLQvkFDhiD289CZBq lNpsKDCvdU8jUBVqbNJafCavRL2 wNTBpbjsnPlZPTExNQVIsIEVMSV bDBeZOUIRHGE30XX02yUFd v6I3mZM0W6EhHSVbchlfaktxhJD 0YTWsHHRdsV91mWQnBOljLt1yd7 G6o617CBHiOHUrhQ13Te2s jUfeULOfnSAXlD6jsannt7wrcgv qUxKkGRTjROf1UWf1HMJfcVddFt PiUYS2EvK1KVN9vUQscI5x vKmcyllckL6aSxf+MDEvMDUvMTk 3NjwvdGQ+ERHtKED1cJktUVjwRI VymS3gHYUmK7f7BoEzIoJ5 ZOyhE6TmWKMshxtfGe51hL1kHgU gEuP1YTxbY2FtlgS4WGZmkNVtOZ mnXXV5N04hz1V9IHPaTQUn HLC6sBX7sJ1nxNlpnjizkEGuvEv brcEzfXjjVCjpLUywY867LZCgfB lbEcY2VZxaIDWwGU86AS33 xMHbr3R2bZY2R3SvHRQkqdqzvwy snOM1STIkLHPnlG17gSRaECppRj 0qp8D2r744PUQaGRCwjI23 Os6ooOtlDKDyiWBLgH8ogqeme1s hkvrbHbSvTLAjOMi9IDg6NBVwmM wjNvKdWLF6LnF2ROU3pBXi yC1leQydnlxkvQ8jTtu+RmVtYWx xOQ34YX00xYUhu8S3lXV5D3YtBJ AohgsncqnlkKO6HCUtICQt cQ37iQYeAPrtEa6nl2G2n418JYW nYPLkqT45Il4syJzbPFQpvWSPdJ 7mizptf0txhbrsDoCiONLi QFb0LYi4ZTOreKbmTiWnKLL9QeB 0MAP2lJJuxR0anEixkwzuuS6iJk c+MN8jluatgyO9WF65UB90 Z2BjCipgiQJijWS+PHRhYmxlIHd eNWIaYSyaRNAcZlDhqMhrPJ9dXh 9yZGVyLWNvbGxhcHNlOiBj f1nsOEEdXAxeUL8zcVdqT0CobOG 5IAOdp4z6Li62G05cZ1MhiHH+PG NagMQ3aSQ0bP3fUlDyExT9 BRjgW115HkXgfSTsOnegh2wse6e aaNk1AeHgNGBqwbBbrGiwSKM5j3 AvYs48W34zGLerITUvRSLt TBXcFHNgiJarnu7kcB1hTo0+PGN rzRR8rVM4dC4hCjHqPiV4UBroV2 34IcBveKPpTobtE51yQ0Vv dXA+UZUqKoj2DOQntKqjHJ6ujSG wRTigOc7kMBW7EkThViXnUIbdA3 EnBJYviuddvsxxzIG3FXCe SXFnuM57Jt0atKibYt5hCUEjZMS 4NUEzjQRhW7BatQ2tJjHjHIZhYP WiX0RmyDZjKOrkF670UCeh EzB5KLPmbsJaD4WlDHQvuAhhOdG 7b4Q0Tl8CzBmauXTyKI2gDmAhUE s9T3IqOhf8OGIkiAkeIA7k bCSpKDadHq9ziZhfkUlbRV4mNIJ xhyhte005HeVyn5lhDACozSRjTO cgEJJ7V94gn4F6RODfCESq LZB3pHM8xH9amMiwsywmvZRqlYq dcjQnuYjdUExbMWwbL494JCXdrZ osKdRZHaa2C1TiCio0QVUu jTkwET2wzHDmOZsqOk3eoBcdbVd zHX8uILQzefmia903DyVzz0vcAH GqwTXyFNdlEZS5L66gs3A3 FZNiXLLdTLA9lCE6rO2txSssdvp gbGVmdDsgdmVydGljYWwtYWxpZ2 43OXPkbKuyVi1EPlb0J2Db Uus8UWQngFxtZQ1yeSEhRPnfAm7 ppJpdhDptFA0qEQNjxvclv307Jx Yqe0eoFUOkoTLkNZidMBN6 E22ln9D1PDNlTQOxRTG0lQS4wX9 hbGlnbjogbGVmdDsgdmVydGljYW baKOsqA512UTLhiNofQdWx eWVyOjwvdGQ+TC38bg62Y6EvOgn qJsd5UVNjPNJ6xVH6yL8uUHYgUJ kln2F2sQL1T0KalrWcyw6b b2xs (more content not included)... Normal [facility] CT Abdomen/Pelvis w/ Contras ton 10-21-2021 CT Abdomen/Pelvis w/ Contrast Exam Date/Time: 10/20/2021 19:42 EDT Reason for Exam: Abdominal pain, acute, nonlocalized;Other (please specify) Report IMPRESSION: BILATERAL OVARIAN CYSTS AND FLUID-FILLED TUBULAR STRUCTURE OF THE LEFT ADNEXA LIKELY REPRESENTING HYDROSALPINX ARE FINDINGS THAT ARE NOT SIGNIFICANT CHANGED DURING THE INTERVAL. MILD HEPATIC STEATOSIS AND BORDERLINE MILD HEPATOMEGALY. EXAM: CT Abdomen/Pelvis w/ Contrast History: Abdominal pain Technique: Multiple contiguous axial images were obtained of the abdomen and pelvis from the level of the lung bases through the ischial tuberosities with IV contrast. Multiplanar reformats were obtained. Delayed images were obtained. Comparison: CT abdomen pelvis 10/18/2021 Findings: Lung bases are clear. Mild hepatic steatosis. The liver is at the upper limits of normal in size measuring approximately 19 cm in craniocaudal length. The gallbladder is surgically absent. The spleen, stomach, pancreas, and adrenal glands are within normal limits. The kidneys enhance uniformly. No urinary tract calculi or hydronephrosis. 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 Urinary bladder is well distended. The uterus is present. Bilateral adnexal cysts likely represent ovarian cysts. Dilated fluid-filled structure of the left adnexa has not significant change during the interval. Abdominal aorta is nonaneurysmal. No retroperitoneal or abdominal/pelvic lymphadenopathy. No small bowel obstruction. No overt colonic mass or pericolonic inflammation. Appendix is within normal limits. No free fluid or free air. No acute osseous abnormality. All CT scans at this facility use dose modulation, iterative reconstruction, and/or weight based dosing when appropriate to reduce radiation dose to as low as reasonably Report achievable. FINAL REPORT Dictated: 10/21/2021 8:57 am Blayne Romero DO Signed (Electronic Signature): 10/21/2021 8:57 am Signed by: Blayne Romero DO Transcribed by: RAMANDEEP Technologist: [employer] Technical Comments GFR (mL/min/1/73m2) >60 Contrast: Isovue 300 Contrast amount in ml's: 100 Rectal Contrast Given? No Normal [facility] Auto Diffon 10-20-2021 Basophils/100 WBC (Bld) 0.9 % Normal 0.0-2.0 [facility] Comment on above: Order Comment: Order Added by Discern Expert. Performed By: #### 2 [id number] ####[facility] [address] [place] [address] Basophils/Leukocyte s Auto (Bld) [Pure # fraction] 0.1 E9/L Normal 0.0-0.2 [facility] Comment on above: Order Comment: Order Added by Discern Expert. Performed By: #### 2 [id number] ####[address] [address] Eosinophils/100 WBC (Bld) 1.3 % Normal 0.0-8.0 [facility] Comment on above: Order Comment: Order Added by Discern Expert. Performed By: #### 2 [id number], [id number] ####[address] [place] [address] Eosinophils/Leukocy denise Auto (Bld) [Pure # fraction] 0.2 E9/L Normal 0.0-0.5 [facility] Comment on above: Order Comment: Order Added by Discern Expert. Performed By: #### 2 [id number], [id number] ####[address] [place] [address] Lymphocytes/100 WBC (Bld) 19.8 % Normal 14.0-50.0 [facility] Comment on above: Order Comment: Order Added by Discern Expert. Performed By: #### 2 [id number], [id number], [id number], [id number], [id number], [id number] ####[address] [address] Lymphocytes/Leukocy denise Auto (Bld) [Pure # fraction] 2.6 E9/L Normal 1.0-4.0 [facility] Comment on above: Order Comment: Order Added by Discern Expert. Performed By: #### 2 153086, 6600845, 0514999, 7159871, 6241159, [id number] ####[address] [address] Monocytes/100 WBC (Bld) 6.0 % Normal 4.0-14.0 [facility] Comment on above: Order Comment: Order Added by Discern Expert. Performed By: #### 2 256885, 8859307, 3318821, 9493199, 2484426, [id number] ####[address] [address] Monocytes/Leukocyte s Auto (Bld) [Pure # fraction] 0.8 E9/L Normal 0.2-1.0 [facility] Comment on above: Order Comment: Order Added by Discern Expert. Performed By: #### 2 630886, 1281475, 7867736, 5489605, 0408792, 70436970 ####[address] [address] Neutrophils/100 WBC (Bld) 72.0 % Normal 36.0-75.0 [facility] Comment on above: Order Comment: Order Added by Discern Expert. Performed By: #### 2 085502, 1408332, 2203648, 3755137, 7894403, 86251455 ####[address] [place] [address] Neutrophils/Leukocy denise Auto (Bld) [Pure # fraction] 9.4 E9/L High 2.0-7.5 [facility] Comment on above: Order Comment: Order Added by Discern Expert. Performed By: #### 2 888997, 2914760, 4483085, 2596315, 2566930, 92843927 ####[address] [address] BMPon 10-20-2021 Creatinine [Mass/Vol] 0.6 mg/dL Normal 0.5-1.3 [facility] Comment on above: Performed By: #### 2 608511, 3170850, 3085415, 9208498, 1658385, 21728845 ####[facility] [address] [place] [address] Urea nitrogen [Mass/Vol] 11 mg/dL Normal 5-21 [facility] Comment on above: Performed By: #### 2 477955, 7332719, 9925523, 0878549, 6574024, 75349443 ####[facility] [address] [place] [address] Urea nitrogen/Creatinine [Mass ratio] 18 No Units Normal 10-20 [facility] Comment on above: Performed By: #### 2 151360, 5146835, 9532764, 3356514, 0806737, 92545429 ####[facility] [address] [place] [address] Anion gap [Moles/Vol] 13 mmol/L Normal 6-16 [facility] Comment on above: Performed By: #### 2 720044, 4293748, 5459838, 3500352, 2919318, 60788376 ####[facility] [address] [place] [address] Calcium [Mass/Vol] 9.4 mg/dL Normal 8.9-11.1 [facility] Comment on above: Performed By: #### 2 281488, 4072506, 7099798, 7178186, 7566682, 06075242 ####[facility] [address] [place] [address] Chloride [Moles/Vol] 99 mmol/L Low 101-111 [facility] Comment on above: Performed By: #### 2 371603, 9786249, 4195931, 9419458, 6069331, 54087922 ####[facility] [address] [place] [address] CO2 [Moles/Vol] 25 mmol/L Normal 21-31 [facility] Comment on above: Performed By: #### 2 929084, 5313574, 6764447, 9221206, 6944215, 54833937 ####[facility] [address] [place] [address] Glucose [Mass/Vol] 111 mg/dL Normal 55-199 [facility] Comment on above: Result Comment: If t his glucose result represents a fasting glucose, interpretation should refer to the following reference range: 55-99 mg/dL Performed By: #### 2 364703, 7120704, 9857424, 9379341, 5149788, 30413675 ####[facility] [address] [place] [address] Potassium [Moles/Vol] 3.8 mmol/L Normal 3.5-5.3 [facility] Comment on above: Performed By: #### 2 861251, 7007896, 1959664, 7224955, 3651085, 44087489 ####[facility] [address] [place] [address] Sodium [Moles/Vol] 133 mmol/L Low 135-145 [facility] Comment on above: Performed By: #### 2 150973, 4450503, 6461630, 8575053, 5192436, 45143911 ####[address] [place] [address] CBC w/ Auto Diffon Erythrocyte distribution width (RBC) [Ratio] 13.5 % Normal 10.9-14.2 [facility] Comment on above: Performed By: #### 2 680343, 6954367, 6692405, 2140499, 8838636, 06771694 ####[facility] [address] [place] [address] Hematocrit (Bld) [Volume fraction] 41.8 % Normal 34.0-46.0 [facility] Comment on above: Performed By: #### 2 063078, 5066541, 7848523, 6335679, 8030391, 69828901 ####[address] [address] Hemoglobin (Bld) [Mass/Vol] 14.1 g/dL Normal 12.0-16.0 [facility] Comment on above: Performed By: #### 2 726371, 0557773, 1581201, 5072373, 2675496, 93940591 ####[address] [address] MCH (RBC) [Entitic mass] 27.2 pg Normal 27.0-34.0 [facility] Comment on above: Performed By: #### 2 166217, 7230004, 7846698, 2637193, 0076723, 45429363 ####[address] [address] MCHC (RBC) [Mass/Vol] 33.7 g/dL Normal 31.4-36.0 [facility] Comment on above: Performed By: #### 2 021746, 0258778, 4349946, 6368513, 2895724, 06180456 ####[address] [address] MCV (RBC) [Entitic vol] 80.6 fL Normal 80.0-100.0 [facility] Comment on above: Performed By: #### 2 106442, 6183092, 0484303, 0147291, 6213859, 16744466 ####[address] [address] Platelet mean volume (Bld) [Entitic vol] 7.9 fL Normal 6.4-10.8 [facility] Comment on above: Performed By: #### 2 334304, 7459127, 0111868, 3680356, 9112415, 45312066 ####[address] [address] Platelets (Bld) [#/Vol] 473.0 E9/L Normal 150.0-500.0 [facility] Comment on above: Performed By: #### 2 294943, 6092417, 1654248, 8190722, 7405646, 56133253 ####[facility] [address] [place] [address] RBC (Bld) [#/Vol] 5.2 E12/L Normal 4.3-5.9 [facility] Comment on above: Performed By: #### 2 217814, 5967673, 6415676, 5980807, 7956982, 61185856 ####[facility] [address] [place] [address] WBC corrected for nucl RBC Auto (Bld) [#/Vol] 13.1 E9/L High 4.0-11.0 [facility] Comment on above: Performed By: #### 2 784751, 7425577, 7230723, 9241254, 9476268, 15746102 ####[facility] [address] [place] [address] CHEMISTRYOrdered By: SYSTEM SYSTEM on 10-20-2021 Albumin [Mass/Vol] 4.5 g/dL Normal 3.3 - 5.0 gm/dL [facility] Albumin/Globulin [Mass ratio] 1.2 {ratio} Normal 1.1 - 2.2 [facility] ALP [Catalytic activity/Vol] 53 [iU]/d Normal 21 - 98 Int._Unit/L [facility] ALT No additional P-5'-P [Catalytic activity/Vol] 23 [iU]/d Normal 6 - 46 Int._Unit/L [facility] Anion gap [Moles/Vol] 13 mmol/L Normal 6 - 16 mEq/L [facility] AST [Catalytic activity/Vol] 20 [iU]/d Normal 5 - 43 Int._Unit/L [facility] Bilirubin [Mass/Vol] 0.8 mg/dL Normal 0.0 - 1.1 mg/dL [facility] Bilirubin.direct [Mass/Vol] 0.1 mg/dL Normal 0.1 - 0.4 mg/dL [facility] Bilirubin.indirect [Mass or moles/Vol] 0.7 mg/dL Normal 0.1 - 0.9 mg/dL [facility] Calcium [Mass/Vol] 9.4 mg/dL Normal 8.9 - 11. 1 mg/dL [facility] Chloride [Moles/Vol] 99 mmol/L Low 101 - 111 mmol/L [facility] CO2 [Moles/Vol] 25 mmol/L Normal 21 - 31 mmol/L [facility] Creatinine [Mass/Vol] 0.6 mg/dL Normal 0.5 - 1.3 mg/dL [facility] GFR/1.73 sq M.predicted among blacks MDRD (S/P/Bld) [Vol rate/Area] mL/min/1.73 m2 Normal >=59mL/min/ 1.73 m2 [facility] Chem S GFR/1.73 sq M.predicted among non-blacks MDRD (S/P/Bld) [Vol rate/Area] mL/min/1.73 m2 Normal >=59mL/min/ 1.73 m2 [facility] Chem S Globulin (S) [Mass/Vol] 3.8 g/dL Normal 1.4 - 4.0 gm/dL [facility] Glucose [Mass/Vol] 111 mg/dL Normal 55 - 199 mg/dL [facility] Lipase [Catalytic activity/Vol] 26 U/L Normal 13 - 58 unit/L [facility] Potassium [Moles/Vol] 3.8 mmol/L Normal 3.5 - 5.3 mmol/L [facility] Protein [Mass/Vol] 8.3 g/dL High 6.0 - 7.8 gm/dL [facility] Sodium [Moles/Vol] 133 mmol/L Low 135 - 145 mmol/L [facility] Urea nitrogen [Mass/Vol] 11 mg/dL Normal 5 - 21 mg/dL [facility] Urea nitrogen/Creatinine [Mass ratio] 18 mg/mg Normal 10 - 20 [facility] Consent for Treatmenton 10-07 Consent for Treatment [id number]:127 Normal [facility] Discharge Instructionson Discharge Instructions [id number]:127 Normal [facility] ED Clinical Summaryon 2021 ED Clinical Summary (Inserted Image. Ade ble to display) [address] [address] ED Clinical Summary Person Information Name: GLADIS MICHAEL [facility] Age: 46 Years : 1975 Sex: Female Language: Filipino PCP: JOVITA WAITE CNP Marital Status: Phone: [phone] Visit Id: Visit Reason: Nausea; Abdominal pain; LOWER ABD PAIN, NAUSEA Speciality: Acuity: 3 Enc Type: Emergency Med Service: Emergency Arrival: 10/20/2021 18:18:20 Discharge: 10/20/2021 21:20:12 LOS: 000 03:02 Checkin: 10/20/2021 18:18:20 Checkout: 10/20/2021 21:20:12 Dispo Type: Home (Routine DC) EVENTS: Event Name Event Status Request Date/Time Start Date/Time Complete Date/Time Arrive Complete 10/20/2021 18:18:20 10/20/2021 18:18:20 10/20/2021 18:18:20 Document Home Meds Request 10/20/2021 18:18:20 Triage Complete 10/20/2021 18:18:20 10/20/2021 18:21:58 10/20/2021 18:21:58 Bed Assign Complete 10/20/2021 18:19:31 10/20/2021 18:19:31 10/20/2021 18:19:31 Dr Exam Complete 10/20/2021 18:19:31 10/20/2021 18:42:37 10/20/2021 18:42:37 RN Exam Complete 10/20/2021 18:19:31 10/20/2021 18:33:05 10/20/2021 18:33:05 Meds Admin Request 10/20/2021 18:25:49 Pending Labs Complete 10/20/2021 18:25:49 10/20/2021 19:10:16 Lab Complete 10/20/2021 18:25:50 10/20/2021 19:10:16 Urine Collect Complete 10/20/2021 18:25:50 10/20/2021 19:10:16 Pending Labs Complete 10/20/2021 18:34:12 10/20/2021 18:34:12 10/20/2021 18:58:12 Lab Complete 10/20/2021 18:34:12 10/20/2021 18:34:12 10/20/2021 18:58:12 Pending Labs Complete 10/20/2021 18:34:52 10/20/2021 18:34:52 10/20/2021 18:34:52 Pending Labs Complete 10/20/2021 18:39:22 10/20/2021 18:39:22 10/20/2021 18:39:31 Lab Complete 10/20/2021 18:39:22 10/20/2021 18:39:22 10/20/2021 18:39:31 Registration Complete 10/20/2021 18:42:37 10/20/2021 18:47:17 10/20/2021 18:47:17 Reg Complete Request 10/20/2021 18:47:17 Reg Bed Request Complete 10/20/2021 18:47:17 10/20/2021 18:47:17 10/20/2021 18:47:17 Dr Exam Complete 10/20/2021 18:55:58 10/20/2021 18:55:58 10/20/2021 18:55:58 Registration Request 10/20/2021 18:55:58 Meds Admin Complete 10/20/2021 19:00:20 10/20/2021 19:09:38 Meds Admin Cancel 10/20/2021 19:12:24 10/20/2021 19:23:41 CT Complete 10/20/2021 19:18:08 10/20/2021 19:42:27 10/20/2021 19:42:43 Discharge Complete 10/20/2021 21:06:41 10/20/2021 21:20:18 10/20/2021 21:20:18 Transfer Complete 10/20/2021 21:20:18 10/20/2021 21:20:18 10/20/2021 21:20:18 ADDRESS: [address] [place] [phone] PHYS DOC NOTES: MEDICAL INFORMATION: Prescriptions Given: New Medications [id number], [address], [place] [id number], [phone] ketorolac (ketorolac 10 mg Tab) 1 Tablets By Mouth every 6 hours as needed for pain for 5 Days. Refills: 0. Medications to Continue with No Changes Other Medications acetaminophen-oxycodone (Percocet 5 mg-325 mg oral tablet) 1 Tablets By Mouth every 6 hours as needed as needed for pain. Refills: 0. doxycycline (doxycycline hyclate 100 mg Tab) 1 Tablets By Mouth 2 times a day. Refills: 0. lisinopril (lisinopril 2.5 mg Tab) 1 Tablets By Mouth once a day (in the evening). Take 5 mg in the morning and 2.5 mg at bedtime. Refills: 0. lisinopril (lisinopril 5 mg Tab) 1 Tablets By Mouth every day. pindolol (pindolol 5 mg oral tablet) 1 Tablets By Mouth 2 times a day. sertraline (sertraline 100 mg Tab) 0.5 Tablets By Mouth at bedtime. PATIENT EDUCATION INFORMATION: Instructions: Ovarian Cyst Follow up: With: Address: When: Gustavo FONTAINE On License Of [facility], [address] [place] [address] [place] [address] Business (1) In 3 days 10/23/2021 DIAGNOSIS: Hydrosalpinx; Left ovarian cyst Normal [facility] ED Note-Nursingon 10-20-2021 ED Note-Nursing pt given d/c instruc tions and educated on importance of follow up. pt educated on new medication. pt verbalized understanding of instructions and readiness for d/c. pt walked self ambulatory to waiting room in stable condition and was driven home by her Normal [facility] ED Note-Physicianon 10-21-19 ED Note-Physician Basic Information Time Seen: Hunter Conte DO 10/20/2021 18:55 Chief Complaint pt states she has had abd pain on thrusday, was seen for it. pt states the pain has gotten worse. pt reports nausea History of Present Illness HPI: Patient is a 46-year-old female with past ministry of hypertension who presents the ED for abdominal pain. Patient states that for started earlier this week but has progressively worsened. The pain is in the left lower part of her abdomen. The pain does not radiate. She states that she was seen here 2 days ago and at that time she was diagnosed with fluid in her left fallopian tube. She was started on pain medicine as well as doxycycline for which she has had approximately 4 doses. She states that the pain seems to be getting somewhat worse and the medications she was given or not adequately controlling the pain. She has had some nausea but no vomiting. She called and spoke with the nurse and Dr. Fontaine's office and has an appointment set up for this upcoming Friday. ROS: General: No fevers, chills, or malaise HEENT: No runny nose, congestion Neuro: No headache, numbness, or focal weakness Card: No chest pain or palpitations Resp: No cough or shortness of breath GI: No vomiting or diarrhea MSK: No arthralgias or myalgias Skin: No rash or pallor Physical exam: General: nontoxic appearing and in no distress HEENT: Mucous membranes moist Neuro: awake and alert Neck: supple, trachea midline Card: Heart regular rate and rhythm no murmur Resp: Lungs clear to auscultation no wheeze or rhonchi Abd: Soft and nondistended. Left lower quadrant tenderness without rebound or guarding. Ext: No gross deformity or edema Physical Exam Vitals & Measurements T: 36.5 ?C(Oral) HR: 65(Peripheral) RR: 18 BP: 209/93 SpO2: 97% HT: 160 cm HT: 160.0 cm WT: 107 kg WT: 107.0 kg BMI: 41.8 Medical Decision Making She is nontoxic. No distress. Abdomen is nonperitoneal. She had hydrosalpinx and ovarian cysts on ultrasound 2 days ago. Will obtain a CT of the abdomen pelvis to assess any possible change as well as get blood work. Patient was given a dose of Zofran as well has Toradol. Blood work shows a mild leukocytosis compared to her previous but is otherwise relatively unremarkable. CT abdomen pelvis is read by radiology as probable left ovarian follicles or cysts and possible component of dilated left fallopian tube. No other acute processes noted. On reassessment her pain has drastically improved after the Toradol she is feeling much better. As her CT had not shown much change in her blood work is also relatively stable I do feel she is on appropriate treatment with the doxycycline and already has an appointment with [facility] on Friday. Because she gets somewhat relief with Toradol I will write her for short prescription of oral Toradol. We discussed return precautions. Patient states understanding agreement with plan was discharged stable condition. 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) Left ovarian cyst (N83.202: Unspecified ovarian cyst, left side) Orders: ketorolac, 10 mg = 1 tab(s), Oral, q6hr, PRN for pain, X 5 day(s), # 20 tab(s), Refills(s) 0, Pharmacy: [id number], 160, cm, 10/20/21 18:21:00 EDT, Height/Length Dosing, 107, kg, 10/20/21 18:21:00 EDT, Weight Dosing ketorolac, 15 mg = 0.5 mL, Injection, IV Push, Once, Stop date 10/20/21 19:21:00 EDT, Start date 10/20/21 19:21:00 EDT morphine, 4 mg = 2 mL, Injection, IV Push, Once, Stop date 10/20/21 18:59:00 EDT, STAT, Start date 10/20/21 18:59:00 EDT, 10/20/21 18:59:00 EDT ondansetron, 4 mg = 2 mL, Injection, IV Push, Once, Stop date 10/20/21 19:00:00 EDT, STAT, Start date 10/20/21 19:00:00 EDT, 10/20/21 19:00:[address] Abdomen/Pelvis w/ Contrast Medications Administered Given [id number] [F], 15 mg, IV Push Zofran 4 mg/2 mL Injection, 4 mg, IV Push Disposition Plan Discharge Prescription List Prescriptions ketorolac 10 mg Tab, 10 mg= 1 tab(s), Oral, q6hr, PRN Follow-up With When Contact Information Gustavo FONTAINE In 3 days 10/23/[address] , [place] [address]- [facility] (1) Additional Instructions: Patient Education Ovarian Cyst Problem List/Past Medical History Ongoing No qualifying data Historical Hypertension Procedure/Surgical History c section, Cholecystectomy. Medications Inpatient ketorolac 15 mg/mL Inj, 15 mg= 1 mL, IV Push, Once Sodium Chloride 0.9% IV [place] 1000 mL 1,000 mL, 1000 mL, IV Home doxycycline hyclate 100 mg Tab, 100 mg= 1 tab(s), Oral, BID lisinopril 2.5 mg Tab, 2.5 mg= 1 tab(s), Oral, qPM lisinopril 5 mg Tab, 5 mg= 1 tab(s), Oral, Daily Percocet 5 mg-325 mg oral tablet, 1 tab(s), Oral, q6hr, PRN pindolol 5 mg oral tablet, 5 mg= 1 tab(s), Oral, BID sertraline 100 mg Tab, 50 mg= 0.5 tab(s), Oral, Bedtime Allergies Toprol-XL (heart racing) Social History Alcohol - Denies Alcohol Use, 11/09/ (more content not included)... Normal [facility] Comment on above: Result Comment: Elec tronically Signed By: Hunter Conte DO\.br\Date and Time Signed: 10/20/21 21:12 EDT ED Patient Education Noteon 10-20-2021 ED Patient Education Note Obstetrics and Gynecology Ovarian Cyst An ovarian cyst is a fluid-filled sac that forms on an ovary. The ovaries are small organs that produce eggs in women. Various types of cysts can form on the ovaries. Some may cause symptoms and require treatment. Most ovarian cysts go away on their own, are not cancerous (are benign), and do not cause problems. Common types of ovarian cysts include: ? Functional (follicle) cysts. ? Occur during the menstrual cycle, and usually go away with the next menstrual cycle if you do not get . ? Usually cause no symptoms. ? Endometriomas. ? Are cysts that form from the tissue that lines the uterus (endometrium). ? Are sometimes called ?chocolate cysts? because they become filled with blood that turns brown. ? Can cause pain in the lower abdomen during intercourse and during your period. ? Cystadenoma cysts. ? Develop from cells on the outside surface of the ovary. ? Can get very large and cause lower abdomen pain and pain with intercourse. ? Can cause severe pain if they twist or break open (rupture). ? Dermoid cysts. ? Are sometimes found in both ovaries. ? May contain different kinds of body tissue, such as skin, teeth, hair, or cartilage. ? Usually do not cause symptoms unless they get very big. ? Theca lutein cysts. ? Occur when too much of a certain hormone (human chorionic gonadotropin) is produced and overstimulates the ovaries to produce an egg. ? Are most common after having procedures used to assist with the conception of a baby (in vitro fertilization). What are the causes? Ovarian cysts may be caused by: ? Ovarian hyperstimulation syndrome. This is a condition that can develop from taking fertility medicines. It causes multiple large ovarian cysts to form. ? Polycystic ovarian syndrome (PCOS). This is a common hormonal disorder that can cause ovarian cysts, as well as problems with your period or fertility. What increases the risk? The following factors may make you more likely to develop ovarian cysts: ? Being overweight or obese. ? Taking fertility medicines. ? Taking certain forms of hormonal control. ? Smoking. What are the signs or symptoms? Many ovarian cysts do not cause symptoms. If symptoms are present, they may include: ? Pelvic pain or pressure. ? Pain in the lower abdomen. ? Pain during sex. ? Abdominal swelling. ? Abnormal menstrual periods. ? Increasing pain with menstrual periods. How is this diagnosed? These cysts are commonly found during a routine pelvic exam. You may have tests to find out more about the cyst, such as: ? Ultrasound. ? X-ray of the pelvis. ? CT scan. ? MRI. ? Blood tests. How is this treated? Many ovarian cysts go away on their own without treatment. Your health care provider may want to check your cyst regularly for 2?3 months to see if it changes. If you are in menopause, it is especially important to have your cyst monitored closely because menopausal women have a higher rate of ovarian cancer. When treatment is needed, it may include: ? Medicines to help relieve pain. ? A procedure to drain the cyst (aspiration). ? Surgery to remove the whole cyst. ? Hormone treatment or control pills. These methods are sometimes used to help dissolve a cyst. Follow these instructions at home: ? Take yamo-rye-uxktczj and prescription medicines only as told by your health care provider. ? Do not drive or use heavy machinery while taking prescription pain medicine. ? Get regular pelvic exams and Pap tests as often as told by your health care provider. ? Return to your normal activities as told by your health care provider. Ask your health care provider what activities are safe for you. ? Do not use any products that contain nicotine or tobacco, such as cigarettes and e-cigarettes. If you need help quitting, ask your health care provider. ? Keep all follow-up visits as told by your health care provider. This is important. Contact a health care provider if: ? Your periods are late, irregular, or painful, or they stop. ? You have pelvic pain that does not go away. ? You have pressure on your bladder or trouble emptying your bladder completely. ? You have pain during sex. ? You have any of the following in your abdomen: ? A feeling of fullness. ? Pressure. ? Discomfort. ? Pain that does not go away. ? Swelling. ? You feel generally ill. ? You become constipated. ? You lose your appetite. ? You develop severe acne. ? You start to have more body hair and facial hair. ? You are gaining weight or losing weight without changing your exercise and eating habits. ? You think you may be . Get help right away if: ? You have abdominal pain that is severe or gets worse. ? You cannot eat or drink without vomiting. ? You suddenly develop a fever. ? Your menstrual period is much heavier than usual. (more content not included)... Normal [facility] ED Patient Summaryon 022 ED Patient Summary (Inserted Image. Ade ble to display) [place] [id number] Patient Discharge Instructions Person Information Name: GLADIS MICHAEL Age: 46 Years Arrival Date: 10/20/2021 18:18:20 Discharge Diagnosis: Hydrosalpinx; Left ovarian cyst Primary Care Physician: JOVITA WAITE CNP Provider Information Primary Provider: Hunter Conte DO Advanced Class[employer] Paraprofessional:None The exam and treatment you received in the Emergency Department were for an urgent problem and are not intended as complete care. It is important that you follow up with a doctor, nurse practitioner, or physician?s student assistant for ongoing care. If your symptoms become worse or you do not improve as expected and you are unable to reach your usual health care provider, you should return to the Emergency Department. We are available 24 hours a day. GLADIS MICHAEL has been given the following list of patient education materials, prescriptions and follow-up instructions: Follow-up Instructions: With: Address: When: Gustavo FONTAINE On License Of [facility], [address] [place] [address] [place] [place] [address] Business (1) In 3 days 10/23/2021 In the event that this physician does not participate in your insurance network, please consult with your insurance company to find a nearby participating provider. Patient Education Materials: Ovarian Cyst A MESSAGE TO ALL PATIENTS REGARDING OPIOIDS PRESCRIPTION OPIOIDS: WHAT YOU NEED TO KNOW Prescription opioids can be used to help relieve bdzyskea-xc-ezrown pain and are often prescribed following a surgery or injury, or for certain health conditions. These medications can be an important part of the treatment but also come with serious risks. It is important to work with your healthcare provider to make sure you are getting the safest, most effective care. WHAT ARE THE RISKS AND SIDE EFFECTS OF OPIOID USE? Prescription opioids carry serious risks of addiction and overdose, especially with prolonged use. An opioid overdose, often marked by slowed breathing, can cause sudden . The use of prescription opioids can have a number of side effects as well, even when taken as directed: ? Tolerance?meaning you might need to take more of the medication for the same pain relief ? Physical dependence?meaning you have symptoms of withdrawal when a medication is stopped ? Increased sensitivity to pain ? Constipation ? Nausea, vomiting, and dry mouth ? Sleepiness and dizziness ? Confusion ? Depression ? Low levels of testosterone that can result in lower sex drive, energy, and strength ? Itching and sweating RISKS ARE GREATER WITH: ? History of drug misuse, substance use disorder, or overdose ? Mental health conditions (such as depression or anxiety) ? Sleep apnea ? Older age (65 years and older) ? Avoid alcohol while taking prescription opioids. Also, unless specifically advised by your health care provider, medications to avoid include: ? Benzodiazepines (such as Xanax or Valium) ? Muscle relaxants (such as Soma or Flexeril) ? Hypnotics (such as Ambien or Lunesta) ? Other prescription opioids KNOW YOUR OPTIONS Talk to your health care provider about ways to manage your pain that don?t involve prescription opioids. Some of these options may actually work better and have fewer risks and side effects. Options may include: ? Pain relievers such as acetaminophen, ibuprofen, and naproxen ? Some medication that are also used for depression or seizures ? Physical therapy and exercise ? Cognitive behavioral therapy, a psychological, goal-directed approach, in which patients learn how to modify physical, behavioral, and emotional triggers of pain and stress. IF YOU ARE PRESCRIBED OPIOIDS FOR PAIN: ? Never take opioids in greater amounts or more often than prescribed. ? Follow up with your primary health care provider. o Work together to create a plan on how to manage your pain. o Talk about ways to help manage your pain that don?t involve prescription opioids. o Talk about any and all concerns and side effects. ? Help prevent misuse and abuse o Never sell or share prescription opioids. o Never use another person?s prescription opioids. ? Store prescription opioids in a secure place and out of reach of others (this may include visitors, children, friends, and family). ? Safely dispose of unused prescription opioids: Find your community drug take-back program or your pharmacy mail-back program, or flush them down the toilet, following guidance from the Food and Drug Administration (www.fda.gov/Drugs/Resource sForYou). ? Visit www.cdc.gov/drugoverdose to learn about the risks of opioids abuse and overdose. ? If you believe you may be struggling with addiction, tell your health doggy daycare activities director and ask for guidance or call [facility] National Helpline at 7-864-65 (more content not included)... Normal [facility] HEMATOLOGYOrdered By: SYSTEM SYSTEM on 10-20-2021 Basophils/100 WBC (Bld) 0.9 % Normal 0.0 - 2.0 % [facility] HemeAutoSS Basophils/Leukocyte s Auto (Bld) [Pure # fraction] 0.1 E9/L Normal 0.0 - 0.2 E9/L [facility] HemeAutoSS Eosinophils/100 WBC (Bld) 1.3 % Normal 0.0 - 8.0 % [facility] HemeAutoSS Eosinophils/Leukocy denise Auto (Bld) [Pure # fraction] 0.2 E9/L Normal 0.0 - 0.5 E9/L [facility] HemeAutoSS Lymphocytes/100 WBC (Bld) 19.8 % Normal 14.0 - 50.0 % [facility] HemeAutoSS Lymphocytes/Leukocy denise Auto (Bld) [Pure # fraction] 2.6 E9/L Normal 1.0 - 4.0 E9/L [facility] HemeAutoSS Monocytes/100 WBC (Bld) 6.0 % Normal 4.0 - 14.0 % [facility] HemeAutoSS Monocytes/Leukocyte s Auto (Bld) [Pure # fraction] 0.8 E9/L Normal 0.2 - 1.0 E9/L [facility] HemeAutoSS Neutrophils/100 WBC (Bld) 72.0 % Normal 36.0 - 75.0 % [facility] HemeAutoSS Neutrophils/Leukocy denise Auto (Bld) [Pure # fraction] 9.4 E9/L High 2.0 - 7.5 E9/L [facility] HemeAutoSS HEMATOLOGYOrdered By: Gasper Moon on 10-20-2021 Erythrocyte distribution width (RBC) [Ratio] 13.5 % Normal 10.9 - 14.2 % [facility] HemeAutoSS Hematocrit (Bld) [Volume fraction] 41.8 % Normal 34.0 - 46.0 % [facility] HemeAutoSS Hemoglobin (Bld) [Mass/Vol] 14.1 g/dL Normal 12.0 - 16.0 gm/dL [facility] HemeAutoSS MCH (RBC) [Entitic mass] 27.2 pg Normal 27.0 - 34.0 pg [facility] HemeAutoSS MCHC (RBC) [Mass/Vol] 33.7 g/dL Normal 31.4 - 36.0 gm/dL [facility] HemeAutoSS MCV (RBC) [Entitic vol] 80.6 fL Normal 80.0 - 100.0 fL [facility] HemeAutoSS Platelet mean volume (Bld) [Entitic vol] 7.9 fL Normal 6.4 - 10.8 fL [facility] HemeAutoSS Platelets (Bld) [#/Vol] 473.0 E9/L Normal 150.0 - 500.0 E9/L [facility] HemeAutoSS RBC (Bld) [#/Vol] 5.2 E12/L Normal 4.3 - 5.9 E12/L [facility] HemeAutoSS WBC corrected for nucl RBC Auto (Bld) [#/Vol] 13.1 E9/L High 4.0 - 11.0 E9/L [facility] HemeAutoSS Hep Func Panelon 10-20-2021 Albumin [Mass/Vol] 4.5 g/dL Normal 3.3-5.0 [facility] Comment on above: Performed By: #### 2 712816, 7999946, 2313381, 5849729, 3662810, 32697894 ####[facility] [address] [place] [address] Albumin/Globulin (S) [Mass conc ratio] 1.2 Normal 1.1-2.2 [facility] Comment on above: Performed By: #### 2 824157, 4006659, 0543048, 3394249, 8115981, 98048580 ####[address] [place] [address] ALP [Catalytic activity/Vol] 53 Int._Unit/L Normal 21-98 [facility] Comment on above: Performed By: #### 2 875549, 3964443, 2467261, 0893094, 7102592, 00433265 ####[facility] [address] [place] [address] ALT No additional P-5'-P [Catalytic activity/Vol] 23 Int._Unit/L Normal 6-46 [facility] Comment on above: Performed By: #### 2 600471, 1599302, 0614908, 0654710, 5968667, 27012899 ####[address] [place] [address] AST [Catalytic activity/Vol] 20 Int._Unit/L Normal 5-43 [facility] Comment on above: Performed By: #### 2 738921, 3385704, 5631329, 1090394, 4436051, 84979035 ####[facility] [address] [place] [address] Bilirubin [Mass/Vol] 0.8 mg/dL Normal 0.0-1.1 [facility] Comment on above: Performed By: #### 2 197508, 9790076, 6585767, 2286577, 1950014, 22872384 ####[address] [place] [address] Bilirubin.direct [Mass/Vol] 0.1 mg/dL Normal 0.1-0.4 [facility] Comment on above: Performed By: #### 2 854114, 2256175, 3422531, 1476446, 4325331, 18070405 ####[address] [address] Bilirubin.indirect [Mass or moles/Vol] 0.7 mg/dL Normal 0.1-0.9 [facility] Comment on above: Performed By: #### 2 446240, 3721553, 9276184, 0008777, 7604907, 95248243 ####[address] [address] Globulin (S) [Mass/Vol] 3.8 g/dL Normal 1.4-4.0 [facility] Comment on above: Performed By: #### 2 395553, 4178503, 9236018, 8457442, 1779186, 74101675 ####[address] [address] Protein [Mass/Vol] 8.3 g/dL High 6.0-7.8 [facility] Comment on above: Performed By: #### 2 757426, 1831270, 5901411, 7602206, 4444436, 09468555 ####[address] [address] Lipase Levelon 10-20-2021 Lipase [Catalytic activity/Vol] 26 U/L Normal 13-58 [facility] Comment on above: Performed By: #### 2 182343, 3983866, 8897069, 6825906, 1288931, 52935767 ####[address] [address] RAD - Preliminary Cat Scan R eporton 10-20-2021 RAD - Preliminary Cat Scan Report [id number] Normal [facility] UA With Cult Reflexon 2021 Bilirubin Ql (U) Negative Normal Negative [facility] Comment on above: Performed By: #### 1 [id number] ####[facility] [address] [place] [address] Clarity (U) CLEAR Normal Clear [facility] Comment on above: Performed By: #### 1 6717872 ####[facility] [address] [place] [address] Color (U) YELLOW Normal Yellow [facility] Comment on above: Performed By: #### 1 8304045 ####[address] [address] Crystals LM Ql (Urine sed) Present Normal [facility] Comment on above: Performed By: #### 1 0110925 ####[address] [address] Epithelial cells.squamous LM.HPF (Urine sed) [#/Area] 0-2 Normal 0-2 [facility] Comment on above: Performed By: #### 1 2578479 ####[facility] [address] [place] [address] Glucose Test strip (U) [Mass/Vol] Negative Normal Negative [facility] Comment on above: Performed By: #### 1 1039261 ####[facility] [address] [place] [address] Hemoglobin Ql (U) Negative Normal Negative [facility] Comment on above: Performed By: #### 1 8165522 ####[facility] [address] [place] [address] Ketones (U) [Mass/Vol] Negative Normal Negative [facility] Comment on above: Performed By: #### 1 9819176 ####[facility] [address] [place] [address] Cartwright.plasma/Lith ium.RBC (Bld) [Mass ratio] 0-3 Normal 0-3 [facility] Comment on above: Performed By: #### 1 1160045 ####[address] [place] [address] Nitrite Ql (U) Negative Normal Negative [facility] Comment on above: Performed By: #### 1 6981211 ####[address] [address] pH (U) 6.0 [pH] Invalid Interpretation Code 5.0-9.0 [facility] Comment on above: Performed By: #### 1 3995474 ####[address] [address] Protein (U) [Mass/Vol] Negative Normal Negative [facility] Comment on above: Performed By: #### 1 8482075 ####[address] [address] Specific gravity (U) [Rel density] <=1.005 Invalid Interpretation Code 1.005-1.030 [facility] Comment on above: Performed By: #### 1 3396547 ####[address] [address] Type of Urine collection method Clean Catch Normal [facility] Comment on above: Performed By: #### 1 4114043 ####[address] [address] Urobilinogen Qn (U) 0.2 {Sonya'U}/dL Normal 0.0-1.0 [facility] Comment on above: Performed By: #### 1 3287817 ####[address] [address] WBC Auto Ql (U) TRACE Abnormal Negative [facility] Comment on above: Performed By: #### 1 1490170 ####[address] [address] WBC LM.HPF (Urine sed) [#/Area] 0-5 Normal 0-5 [facility] Comment on above: Performed By: #### 1 6351931 ####[address] [address] URINALYSISOrdered By: Sarmad michaels on 10-20-2021 Bilirubin Ql (U) Negative (10/20/21 6:38 PM) Normal Negative [facility] UA Auto SS Clarity (U) Clear (10/20/21 6:38 PM) Normal Clear [facility] UA Auto SS Color (U) Yellow (10/20/21 6:38 PM) Normal Yellow [facility] UA Auto SS Crystals LM Ql (Urine sed) Present (10/20/21 6:38 PM) Normal [facility] UA Auto SS Epithelial cells.squamous LM.HPF (Urine sed) [#/Area] 0-2 /HPF Normal 0-2/HPF [facility] UA Auto SS Glucose Test strip (U) [Mass/Vol] Negative (10/20/21 6:38 PM) Normal Negative [facility] UA Auto SS Hemoglobin Ql (U) Negative (10/20/21 6:38 PM) Normal Negative [facility] UA Auto SS Ketones (U) [Mass/Vol] Negative (10/20/21 6:38 PM) Normal Negative [facility] UA Auto SS Cartwright.plasma/Lith ium.RBC (Bld) [Mass ratio] 0-3 /HPF Normal 0-3/HPF [facility] UA Auto SS Nitrite Ql (U) Negative (10/20/21 6:38 PM) Normal Negative [facility] UA Auto SS pH (U) 6.0 *NA* (10/20/21 6:38 PM) Invalid Interpretation Code 5.0 - 9.0 [facility] UA Auto SS Protein (U) [Mass/Vol] Negative (10/20/21 6:38 PM) Normal Negative [facility] UA Auto SS Specific gravity (U) [Rel density] <=1.005 *NA* (10/20/21 6:38 PM) Invalid Interpretation Code 1.005 - 1.030 [facility] UA Auto SS UA Spec Desc Clean Catch (10/20/21 6:38 PM) Normal [facility] UA Auto SS Urobilinogen Qn (U) 0.5750891 {Sonya'U}/dL Normal 0.0 - 1.0 EU/dL [facility] UA Auto SS WBC Auto Ql (U) Trace *ABN* (10/20/21 6:38 PM) Invalid Interpretation Code Negative [facility] UA Auto SS WBC LM.HPF (Urine sed) [#/Area] 0-5 /HPF Normal 0-5/HPF [facility] UA Auto SS eGFRon 10-20-2021 GFR/1.73 sq M.predicted among blacks MDRD (S/P/Bld) [Vol rate/Area] mL/min/{1.73_m2} Normal >=59 [facility] Comment on above: Order Comment: Order added by Discern Expert. Result Comment: eGFR is race adjusted. AA=. Performed By: #### 2 814484, 5030539, 8492778, 1560301, 7043200, 36596531 ####[facility] [address] [place] [address] GFR/1.73 sq M.predicted among non-blacks MDRD (S/P/Bld) [Vol rate/Area] mL/min/{1.73_m2} Normal >=59 [facility] Comment on above: Order Comment: Order added by Carolann Expert. Result Comment: [employer] Journeyman ramo kidney disease could be indicated at eGFR's of less than 60 mL/min/1.73m2. Kidney failure is indicated at less than 15 mL/min/1.73m2. Performed By: #### 2 382744, 8411016, 2815273, 3373124, 7409602, 37488543 ####[facility] [address] [place] [address] Auto Diffon 10-18-2021 Basophils/100 WBC (Bld) 1.0 % Normal 0.0-2.0 [facility] Comment on above: Order Comment: Order Added by Discern Expert. Performed By: #### 2 974228, 1110240, 94194547, 8572341, 6807350, 0505325, 9405399 #### [facility] [address] [place] [address] Basophils/Leukocyte s Auto (Bld) [Pure # fraction] 0.1 E9/L Normal 0.0-0.2 [facility] Comment on above: Order Comment: Order Added by Discern Expert. Performed By: #### 2 084203, 9687744, 25280024, 4694809, 5628861, 2763983, 4302989 #### [facility] [address] [place] [address] Eosinophils/100 WBC (Bld) 1.3 % Normal 0.0-8.0 [facility] Comment on above: Order Comment: Order Added by Discern Expert. Performed By: #### 2 733867, 4057158, 75979230, 3694339, 1946534, 3706293, 7455121 #### [facility] [address] [place] [address] Eosinophils/Leukocy denise Auto (Bld) [Pure # fraction] 0.1 E9/L Normal 0.0-0.5 [facility] Comment on above: Order Comment: Order Added by Discern Expert. Performed By: #### 2 485285, 5293381, 83830674, 0451574, 2144018, 2567953, 4570835 #### [facility] [address] [place] [address] Lymphocytes/100 WBC (Bld) 25.5 % Normal 14.0-50.0 [facility] Comment on above: Order Comment: Order Added by Discern Expert. Performed By: #### 2 826801, 8404785, 14219668, 1502171, 6183855, 9370436, 7796203 #### [facility] [address] [place] [address] Lymphocytes/Leukocy denise Auto (Bld) [Pure # fraction] 2.6 E9/L Normal 1.0-4.0 [facility] Comment on above: Order Comment: Order Added by Discern Expert. Performed By: #### 2 211740, 2275059, 12478866, 4191195, 9687322, 7155711, 8581572 #### [facility] [address] [place] [address] Monocytes/100 WBC (Bld) 5.7 % Normal 4.0-14.0 [facility] Comment on above: Order Comment: Order Added by Discern Expert. Performed By: #### 2 134085, 0144989, 31442957, 5567365, 6134475, 4643235, 4105875 #### [facility] [address] [place] [address] Monocytes/Leukocyte s Auto (Bld) [Pure # fraction] 0.6 E9/L Normal 0.2-1.0 [facility] Comment on above: Order Comment: Order Added by Discern Expert. Performed By: #### 2 274519, 7272592, 40379332, 8201641, 2857729, 2342683, 6944749 #### [facility] [address] [place] [address] Neutrophils/100 WBC (Bld) 66.5 % Normal 36.0-75.0 [facility] Comment on above: Order Comment: Order Added by Discern Expert. Performed By: #### 2 040102, 2306877, 90372884, 6804131, 3104335, 2832928, 6542875 #### [facility] [address] [place] [address] Neutrophils/Leukocy denise Auto (Bld) [Pure # fraction] 6.7 E9/L Normal 2.0-7.5 [facility] Comment on above: Order Comment: Order Added by Discern Expert. Performed By: #### 2 849529, 6457563, 08486025, 0347724, 0223403, 2117154, 2522820 #### [facility] [address] [place] [address] BMPon 10-18-2021 Creatinine [Mass/Vol] 0.4 mg/dL Low 0.5-1.3 [facility] Comment on above: Performed By: #### 2 926910, 1592814, 40199074, 8579991, 9379996, 7092882, 2000237 ####[facility] [address] [place] [address] Urea nitrogen [Mass/Vol] 13 mg/dL Normal 5-21 [facility] Comment on above: Performed By: #### 2 226742, 3767318, 67671228, 6750852, 3132207, 9886969, 2406793 ####[facility] [address] [place] [address] Urea nitrogen/Creatinine [Mass ratio] 32 No Units High 10-20 [facility] Comment on above: Performed By: #### 2 406542, 6514690, 53377864, 7068448, 5601423, 9038967, 3839439 ####[facility] [address] [place] [address] Anion gap [Moles/Vol] 12 mmol/L Normal 6-16 [facility] Comment on above: Performed By: #### 2 686104, 2127441, 97343391, 2538348, 0432197, 2189539, 5875368 ####[facility] [address] [place] [address] Calcium [Mass/Vol] 9.1 mg/dL Normal 8.9-11.1 [facility] Comment on above: Performed By: #### 2 962324, 5941731, 82865176, 5568032, 3399718, 5225669, 6348603 ####[facility] [address] [place] [address] Chloride [Moles/Vol] 102 mmol/L Normal 101-111 [facility] Comment on above: Performed By: #### 2 666773, 6768780, 11950816, 9310903, 1924495, 9506119, 1191999 ####[facility] [address] [place] [address] CO2 [Moles/Vol] 24 mmol/L Normal 21-31 [facility] Comment on above: Performed By: #### 2 300479, 9851104, 09979149, 3279684, 8027862, 5696517, 6554005 ####[facility] [address] [place] [address] Glucose [Mass/Vol] 108 mg/dL Normal 55-199 [facility] Comment on above: Result Comment: If t his glucose result represents a fasting glucose, interpretation should refer to the following reference range: 55-99 mg/dL Performed By: #### 2 760792, 5897262, 25737363, 8871735, 5001550, 8257874, 5559067 ####[facility] [address] [place] [address] Potassium [Moles/Vol] 3.7 mmol/L Normal 3.5-5.3 [facility] Comment on above: Performed By: #### 2 330464, 5102170, 98564302, 6610201, 8649562, 5271168, 6275522 ####[facility] [address] [place] [address] Sodium [Moles/Vol] 134 mmol/L Low 135-145 [facility] Comment on above: Performed By: #### 2 511723, 5809660, 00075769, 3735483, 4232409, 6925153, 9639462 ####[facility] [address] [place] [address] CBC w/ Auto Diffon Erythrocyte distribution width (RBC) [Ratio] 13.5 % Normal 10.9-14.2 [facility] Comment on above: Performed By: #### 2 586530, 5691226, 48425416, 4016171, 3128955, 7669739, 6317388 #### [facility] [address] [place] [address] Hematocrit (Bld) [Volume fraction] 38.7 % Normal 34.0-46.0 [facility] Comment on above: Performed By: #### 2 261773, 1349867, 81835286, 4722921, 3420171, 8964418, 5257635 #### [facility] [address] [place] [address] Hemoglobin (Bld) [Mass/Vol] 13.2 g/dL Normal 12.0-16.0 [facility] Comment on above: Performed By: #### 2 624505, 9114727, 02251330, 0999227, 3294811, 4129786, 3294280 #### [facility] [address] [place] [address] MCH (RBC) [Entitic mass] 27.6 pg Normal 27.0-34.0 [facility] Comment on above: Performed By: #### 2 825711, 9049931, 32623446, 8109434, 1128733, 7820920, 3631025 #### [facility] [address] [place] [address] MCHC (RBC) [Mass/Vol] 34.2 g/dL Normal 31.4-36.0 [facility] Comment on above: Performed By: #### 2 723932, 3555741, 56257864, 3586889, 0102362, 5196213, 9976811 #### [facility] [address] [place] [address] MCV (RBC) [Entitic vol] 81.0 fL Normal 80.0-100.0 [facility] Comment on above: Performed By: #### 2 177333, 5890845, 05026861, 1625564, 1605597, 5601919, 7014898 #### [facility] [address] [place] [address] Platelet mean volume (Bld) [Entitic vol] 7.9 fL Normal 6.4-10.8 [facility] Comment on above: Performed By: #### 2 842191, 4446767, 11141185, 5539044, 9711558, 2400455, 9619858 #### [facility] [address] [place] [address] Platelets (Bld) [#/Vol] 415.0 E9/L Normal 150.0-500.0 [facility] Comment on above: Performed By: #### 2 502461, 4378542, 04895854, 5994403, 3124607, 1059987, 9354493 #### [facility] [address] [place] [address] RBC (Bld) [#/Vol] 4.8 E12/L Normal 4.3-5.9 [facility] Comment on above: Performed By: #### 2 592150, 3466185, 40987638, 7658978, 2911200, 2645138, 4834757 #### [facility] [address] [place] [address] WBC corrected for nucl RBC Auto (Bld) [#/Vol] 10.1 E9/L Normal 4.0-11.0 [facility] Comment on above: Performed By: #### 2 485562, 4847286, 57562753, 5321790, 9358998, 0951658, 4895150 #### [facility] [address] [place] [address] CHEMISTRYOrdered By: SYSTEM SYSTEM on 10-18-2021 Albumin [Mass/Vol] 4.2 g/dL Normal 3.3 - 5.0 gm/dL [facility] Remisol Albumin/Globulin [Mass ratio] 1.2 {ratio} Normal 1.1 - 2.2 [facility] Remisol ALP [Catalytic activity/Vol] 48 [iU]/d Normal 21 - 98 Int._Unit/L [facility] Remisol ALT No additional P-5'-P [Catalytic activity/Vol] 26 [iU]/d Normal 6 - 46 Int._Unit/L [facility] Remisol Anion gap [Moles/Vol] 12 mmol/L Normal 6 - 16 mEq/L [facility] Remisol AST [Catalytic activity/Vol] 23 [iU]/d Normal 5 - 43 Int._Unit/L [facility] Remisol Bilirubin [Mass/Vol] 0.8 mg/dL Normal 0.0 - 1.1 mg/dL [facility] Remisol Bilirubin.direct [Mass/Vol] 0.2 mg/dL Normal 0.1 - 0.4 mg/dL [facility] Bilirubin.indirect [Mass or moles/Vol] 0.6 mg/dL Normal 0.1 - 0.9 mg/dL [facility] Calcium [Mass/Vol] 9.1 mg/dL Normal 8.9 - 11. 1 mg/dL [facility] Chloride [Moles/Vol] 102 mmol/L Normal 101 - 111 mmol/L [facility] CO2 [Moles/Vol] 24 mmol/L Normal 21 - 31 mmol/L [facility] Creatinine [Mass/Vol] 0.4 mg/dL Low 0.5 - 1.3 mg/dL [facility] GFR/1.73 sq M.predicted among blacks MDRD (S/P/Bld) [Vol rate/Area] mL/min/1.73 m2 Normal >=59mL/min/ 1.73 m2 [facility] Chem S GFR/1.73 sq M.predicted among non-blacks MDRD (S/P/Bld) [Vol rate/Area] mL/min/1.73 m2 Normal >=59mL/min/ 1.73 m2 [facility] Chem S Globulin (S) [Mass/Vol] 3.6 g/dL Normal 1.4 - 4.0 gm/dL [facility] Glucose [Mass/Vol] 108 mg/dL Normal 55 - 199 mg/dL [facility] Lactate [Mass/Vol] 1.1 mmol/L Normal 0.5 - 2.2 mmol/L [facility] Lipase [Catalytic activity/Vol] 28 U/L Normal 13 - 58 unit/L [facility] Potassium [Moles/Vol] 3.7 mmol/L Normal 3.5 - 5.3 mmol/L [facility] Protein [Mass/Vol] 7.8 g/dL Normal 6.0 - 7.8 gm/dL [facility] Sodium [Moles/Vol] 134 mmol/L Low 135 - 145 mmol/L [facility] Urea nitrogen [Mass/Vol] 13 mg/dL Normal 5 - 21 mg/dL [facility] Urea nitrogen/Creatinine [Mass ratio] 32 mg/mg High 10 - [address] Abdomen/Pelvis w/ Contras ton 10-18-2021 CT Abdomen/Pelvis w/ Contrast Exam Date/Time: 10/18/2021 05:17 EDT Reason for Exam: Abdominal pain, acute, nonlocalized;Other (please specify) Report IMPRESSION: BILATERAL ADNEXAL CYSTIC STRUCTURES, GREATER ON LEFT THAN ON THE RIGHT, WITH OVARIAN CYSTS SUSPECTED. FLUID-CONTAINING STRUCTURE TO THE LEFT OF THE BODY OF THE UTERUS, OF UNDETERMINED ETIOLOGY, BUT POSSIBLY A DILATED FLUID-FILLED LEFT FALLOPIAN TUBE. CLINICAL HISTORY: Abdominal pain, acute, nonlocalized. COMMENT: Images were obtained following the administration of Intravenous contrast. There are surgical clips at the gallbladder fossa, from prior cholecystectomy. There is no biliary ductal dilatation. The liver is normal in size and configuration. There is nonuniform fatty infiltration of the liver. No focal liver lesion is evident. The spleen, pancreas, adrenal glands, and kidneys are normal in appearance. There is prompt symmetric bilateral renal excretion of contrast. 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 Renal collecting systems are not dilated. There are small nonspecific retroperitoneal lymph nodes. No retroperitoneal lymphadenopathy is evident. The abdominal aorta is normal. No aneurysm is noted. Evaluation of bowel is limited. The bowel loops are not dilated, and there is no evidence of bowel obstruction. The appendix is normal. Fecal material in the colon limits evaluation. There is no evidence of diverticulitis. No abdominal inflammatory complex nor free air nor free fluid is noted. There is a minimal umbilical dehiscence, that contains fat. The uterus is anteverted. There are small right ovarian cysts. Superior to the uterine fundus, to the left of midline, there is a cystic complex, measuring approximately 3.3 x 2.5 x 2.2 cm, with left ovarian cyst suspected. To the left of the uterine body, there is a fluid containing structure with overall dimensions of approximately 2.5 x 4.5 x 3 cm, that has an apparent thickened wall and within this there is an apparent serpiginous tubular cystic area. The appearance suggests a dilated fluid-filled left fallopian tube, but complex cystic structure of other etiology is not excluded. No pelvic lymphadenopathy is evident. There is normal distention of the urinary bladder with fluid, and the urinary bladder is unremarkable. There are sclerotic changes involving the iliac sides of both sacroiliac joints, without narrowing or irregularity of the sacroiliac joint spaces. The appearance suggests osteitis condensans ilii. There is spondylosis, with hypertrophic spurring of some lumbar and lower thoracic vertebral bodies. All CT scans at this facility use dose modulation, iterative reconstruction, and/or weight based dosing when appropriate to reduce radiation dose to as low as reasonably Report achievable. FINAL REPORT Dictated: 10/18/2021 10:19 am Ethan Brothers M.D. Signed (Electronic Signature): 10/18/2021 10:19 am Signed by: Ethan Brothers M.D. Transcribed by: RAMANDEEP Technologist: FELA Technical Comments GFR (mL/min/1/73m2) >60 Contrast: Isovue 300 Contrast amount in ml's: 100 Normal [facility] Consent for Treatmenton 10-07 Consent for Treatment [id number]:127 Normal [facility] Discharge Instructionson Discharge Instructions [id number]:127 Normal [facility] ED Clinical Summaryon 2021 ED Clinical Summary (Inserted Image. Ade ble to display) [place] [id number] ED Clinical Summary Person Information Name: GLADIS MICHAEL [facility] Age: 46 Years : 1975 Sex: Female Language: Filipino PCP: JOVITA WAITE CNP Marital Status: Phone: [phone] Visit Id: Visit Reason: Flank pain; Nausea; Abdominal pain; ABDOMINAL PAIN Speciality: Acuity: 3 Enc Type: Emergency Med Service: Emergency Arrival: 10/18/2021 03:56:10 Discharge: 10/18/2021 12:30:20 LOS: 000 08:34 Checkin: 10/18/2021 03:56:10 Checkout: 10/18/2021 12:30:20 Dispo Type: Home (Routine DC) EVENTS: Event Name Event Status Request Date/Time Start Date/Time Complete Date/Time Arrive Complete 10/18/2021 03:56:10 10/18/2021 03:56:10 10/18/2021 03:56:10 Document Home Meds Request 10/18/2021 03:56:10 Triage Complete 10/18/2021 03:56:10 10/18/2021 04:04:43 10/18/2021 04:04:43 Dr Exam Complete 10/18/2021 03:59:20 10/18/2021 03:59:20 10/18/2021 03:59:20 Registration Complete 10/18/2021 03:59:20 10/18/2021 04:05:06 10/18/2021 04:06:24 Bed Assign Complete 10/18/2021 04:05:06 10/18/2021 04:05:06 10/18/2021 04:05:06 RN Exam Complete 10/18/2021 04:05:06 10/18/2021 04:10:23 10/18/2021 04:10:23 Reg Complete Request 10/18/2021 04:06:24 Meds Admin Complete 10/18/2021 04:10:40 10/18/2021 04:29:48 Pending Labs Complete 10/18/2021 04:10:40 10/18/2021 05:43:35 Lab Complete 10/18/2021 04:10:40 10/18/2021 05:43:35 Urine Collect Complete 10/18/2021 04:10:40 10/18/2021 05:43:35 CT Complete 10/18/2021 04:10:40 10/18/2021 05:00:29 10/18/2021 05:17:40 Reg Bed Request Complete 10/18/2021 04:33:25 10/18/2021 04:33:25 10/18/2021 04:33:25 Pending Labs Complete 10/18/2021 04:35:45 10/18/2021 04:35:45 10/18/2021 04:57:38 Lab Complete 10/18/2021 04:35:45 10/18/2021 04:35:45 10/18/2021 04:57:38 Pending Labs Complete 10/18/2021 04:41:55 10/18/2021 04:41:55 10/18/2021 04:42:04 Lab Complete 10/18/2021 04:41:55 10/18/2021 04:41:55 10/18/2021 04:42:04 US Complete 10/18/2021 06:35:45 10/18/2021 07:14:34 10/18/2021 07:58:57 Pending Labs Complete 10/18/2021 06:43:00 10/18/2021 06:43:00 10/18/2021 06:43:55 Pending Labs Complete 10/18/2021 06:48:08 10/18/2021 06:48:08 10/18/2021 07:01:38 Lab Complete 10/18/2021 06:48:08 10/18/2021 06:48:08 10/18/2021 07:01:38 Urine Collect Complete 10/18/2021 06:48:08 10/18/2021 06:48:08 10/18/2021 07:01:38 Dr Exam Complete 10/18/2021 07:16:51 10/18/2021 07:16:51 10/18/2021 07:16:51 Registration Request 10/18/2021 07:16:51 US Complete 10/18/2021 07:38:22 10/18/2021 07:59:18 Meds Admin Cancel 10/18/2021 11:16:04 10/18/2021 11:23:21 Meds Admin Complete 10/18/2021 11:24:15 10/18/2021 11:25:12 Discharge Complete 10/18/2021 12:14:21 10/18/2021 12:30:36 10/18/2021 12:30:36 Transfer Complete 10/18/2021 12:30:36 10/18/2021 12:30:36 10/18/2021 12:30:36 ADDRESS: [address] [place] [phone] PHYS DOC NOTES: MEDICAL INFORMATION: Prescriptions Given: New Medications [facility] #[id number], [address], [place] [phone], [phone] acetaminophen-oxycodone (Percocet 5 mg-325 mg oral tablet) 1 Tablets By Mouth every 6 hours as needed as needed for pain. Refills: 0. doxycycline (doxycycline hyclate 100 mg Tab) 1 Tablets By Mouth 2 times a day. Refills: 0. Medications to Continue with No Changes Other Medications lisinopril (lisinopril 2.5 mg Tab) 1 Tablets By Mouth once a day (in the evening). Take 5 mg in the morning and 2.5 mg at bedtime. Refills: 0. lisinopril (lisinopril 5 mg Tab) 1 Tablets By Mouth every day. pindolol (pindolol 5 mg oral tablet) 1 Tablets By Mouth 2 times a day. sertraline (sertraline 100 mg Tab) 0.5 Tablets By Mouth at bedtime. PATIENT EDUCATION INFORMATION: Instructions: Abdominal Pain, Adult Follow up: With: Address: When: Gustavo FONTAINE On License Of [facility], [address] [place] [address] [place] [address] Business (1) In 3 days 10/21/2021 With: Address: When: JOVITA WAITE [address] [phone] Business (1) In 3 days 10/21/2021 Comments: The ultrasound showed that you have fluid in your fallopian tube. Make sure to follow-up with Dr. Fontaine as instructed. Return to the emergency room if your pain gets worse, fever, vomiting or any new symptoms. DIAGNOSIS: 1:Hydrosalpinx; Abdominal pain, acute, left lower quadrant Normal [facility] ED Note-Physicianon 10-19-19 ED Note-Physician Basic Information Medical Decision Making The care of the patient was transitioned to al upon shift change. The patient has presented with left lower quadrant abdominal pain. She was examined by me. She has some tenderness in the left lower quadrant/pelvic region. The patient denies any vaginal discharge or vaginal bleeding. The is negative. Blood work reviewed unremarkable. The CT of the abdomen and pelvis showed a cystic structure next to the uterus. The ultrasound shows fluid in fallopian tube in the left. The patient's pain improved after the morphine. The case is discussed with Dr. Angulo who recommends doxycycline pain medication and follow-up with Dr. Fontaine next week. The patient is instructed to return to the emergency room if her pain gets worse, fever or any new symptoms. Assessment/Plan 1. 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) Ordered: acetaminophen-oxycodone, 1 tab(s), Oral, q6hr as needed for pain, 12 tab(s), Refill(s) 0, [id number], 160, cm, 10/18/21 4:04:00 EDT, Height/Length Dosing, 107, kg, 10/18/21 4:04:00 EDT, Weight Dosing Abdominal pain, acute, left lower quadrant (R10.32: Left lower quadrant pain) Orders: doxycycline, 100 mg = 1 tab(s), Oral, BID, # 20 tab(s), Refills(s) 0, Pharmacy: [facility] #[id number], 160, cm, 10/18/21 4:04:00 EDT, Height/Length Dosing, 107, kg, 10/18/21 4:04:00 EDT, Weight Dosing morphine, 2 mg = 1 mL, Injection, IV Push, Once, Stop date 10/18/21 11:23:00 EDT, STAT, Start date 10/18/21 11:23:00 EDT, 10/18/21 11:23:00 EDT Medications Administered Given ketorolac 30 mg/mL Inj 1 mL, 30 mg, IV Push morphine 2 mg/mL Inj, 2 mg, IV Push NS 1000 ml Bolus, 1000 mL, IV ondansetron 4 mg/2 mL Inj, 4 mg, IV Push Disposition Plan Patient Discharge Condition Stable, improved Discharge Disposition Discharged home Discharge Prescription List Prescriptions doxycycline hyclate 100 mg Tab, 100 mg= 1 tab(s), Oral, BID Percocet 5 mg-325 mg oral tablet, 1 tab(s), Oral, q6hr, PRN Follow-up With When Contact Information Gustavo FONTAINE In 3 days 10/21/[address] , [place] [address]- Business (1) Additional Instructions: JOVITA WAITE In 3 days 10/21/[address] [place] [address]- [phone] Business (1) Additional Instructions: The ultrasound showed that you have fluid in your fallopian tube. Make sure to follow-up with Dr. Fontaine as instructed. Return to the emergency room if your pain gets worse, fever, vomiting or any new symptoms. Patient Education Abdominal Pain, Adult Problem List/Past Medical History Ongoing No qualifying data Historical Hypertension Procedure/Surgical History c section, Cholecystectomy. Medications Inpatient No active inpatient medications Home doxycycline hyclate 100 mg Tab, 100 mg= 1 tab(s), Oral, BID lisinopril 2.5 mg Tab, 2.5 mg= 1 tab(s), Oral, qPM lisinopril 5 mg Tab, 5 mg= 1 tab(s), Oral, Daily Percocet 5 mg-325 mg oral tablet, 1 tab(s), Oral, q6hr, PRN pindolol 5 mg oral tablet, 5 mg= 1 tab(s), Oral, BID sertraline 100 mg Tab, 50 mg= 0.5 tab(s), Oral, Bedtime Allergies Toprol-XL (heart racing) Social History Alcohol - Denies Alcohol Use, 11/09/2017 Current, 11/09/2017 Substance Abuse - Denies Substance Abuse, 09/30/2017 Current, 09/23/2017 Tobacco - Denies Tobacco Use, 09/30/2017 Family History Primary malignant neoplasm of brain: Brother. Primary malignant neoplasm of lung: Father. Lab Results WBC: 10.1 E9/L (10/18/21 04:30:00) RBC: 4.8 E12/L (10/18/21 04:30:00) HGB: 13.2 gm/dL (10/18/21 04:30:00) Hct: 38.7 % (10/18/21 04:30:00) MCV: 81 fL (10/18/21 04:30:00) MCH: 27.6 pg (10/18/21 04:30:00) MCHC: 34.2 gm/dL (10/18/21 04:30:00) RDW: 13.5 % (10/18/21 04:30:00) Platelet: 415 E9/L (10/18/21 04:30:00) MPV: 7.9 fL (10/18/21 04:30:00) Neutro Auto: 66.5 % (10/18/21 04:30:00) Lymph Auto: 25.5 % (10/18/21 04:30:00) [place] Auto: 5.7 % (10/18/21 04:30:00) Eos Auto: 1.3 % (10/18/21 04:30:00) Basophil Auto: 1 % (10/18/21 04:30:00) Neutro Absolute: 6.7 E9/L (10/18/21 04:30:00) Lymph Absolute: 2.6 E9/L (10/18/21 04:30:00) [place] Absolute: 0.6 E9/L (10/18/21 04:30:00) Eos Absolute: 0.1 E9/L (10/18/21 04:30:00) Basophil Absolute: 0.1 E9/L (10/18/21 04:30:00) Glucose Lvl: 108 mg/dL (10/18/21 04:30:00) BUN: 13 mg/dL (10/18/21 04:30:00) Creatinine: 0.4 mg/dL Low (10/18/21 04:30:00) eGFR: >60 (10/18/21 04:30:00) eGFR AA: >60 (10/18/21 04:30:00) BUN/Creat Ratio: 32 High (10/18/21 04:30:00) Sodium Lvl: 134 mmol/L Low (10/18/21 04:30:00) Potassium Lvl: 3.7 mmol/L (10/18/21 04:30:00) Chloride: 102 mmol/L (10/18/21 04:30:00) CO2: 24 mmol/L (10/18/21 04:30:00) AGAP: 12 mEq/L (10/18/21 04:30:00) Calcium Lvl: 9.1 mg/dL (10/18/21 04:30:00) Alk Phos: 48 Int._Unit/L (10/18/21 04:30:00) ALT: 26 Int._Unit/L (10/18/21 04:30:00) AST: 23 Int._Unit/L (10/18/21 04:30:00) Total Protein: 7.8 gm/dL ( (more content not included)... Normal [facility] Comment on above: Result Comment: Elec tronically Signed By: Deepali Mendez, Patricia Bautista\.br\Date and Time Signed: 10/18/21 12:32 EDT ED Note-Physician Basic Information Time Seen: Jeffy Das DO 10/18/2021 03:59 Chief Complaint ABD pain to upper and lower (L) quadrant with radiation to flank. Started on Friday, pain was intermittent, but is now more constant. Ovarian in May 14. No V/D. No fever. No urinary symptoms. History of Present Illness Patient is a 46-year-old female with past medical history of hypertension presenting to the ED for evaluation of abdominal pain. Patient states the pain started on Friday initially intermittent however becoming more severe this evening around 1:30 AM. Describes it as sharp, stabbing, achy starting in the left lower abdomen with radiation to the left upper abdomen and back. Denies any fevers, chills, vomiting or diarrhea. Does note some nausea. To have ovarian cyst and ovarian masses removed in May of last year states she has been healing well from this. Review of Systems General: Denied fever, chills, weight loss HEENT: Denied Congestion, rhinorrhea, sore throat Cardiac: Denied Chest pain, palpitations, dizziness/lightheadedness Respiratory: Denied Dyspnea, cough Abdominal: Denied vomiting, diarrhea, constipation ,+ abdominal pain, nausea : Denied dysuria, hematuria Extremities: Denied leg swelling, leg pain, calf tenderness Neuro: Denied Focal neurologic deficits, vision changes, difficulty with speech Integumentary: Denied rashes or lesions Physical Exam Vitals & Measurements T: 36.7 ?C(Oral) HR: 77(Peripheral) RR: 16 BP: 185/115 SpO2: 97% HT: 160 cm HT: 160.0 cm WT: 107 kg WT: 107.0 kg BMI: 41.8 General: Well developed, non toxic appearing, no acute distress HEENT: Head atraumatic, Mucosa moist, hearing grossly normal Neck: No JVD, tracheal deviation Cardiac: Regular rate, rhythm, no murmurs, or gallops, 2+ radial pulses Respiratory: Lungs clear to auscultation B/L, normal respiratory effort Abdomen: Soft nontender palpation of the left lower abdomen, left flank no rebound or guarding, no peritoneal signs Extremities: No edema noted in the LE B/L, no tenderness to palpation Neurologic: Alert and oriented, speech clear Skin: No rashes or lesions Psych: Appropriate mood and behavior Medical Decision Making Patient is a 46-year-old female presenting to the ED for evaluation of nausea, abdominal pain. Patient is nontoxic-appearing on arrival, no acute distress. Blood pressure is elevated believe this likely secondary to pain. Laboratory evaluation is obtained, CT abdomen and pelvis is ordered. Patient is given Toradol, Zofran, IV fluids. Patient's laboratory evaluation is unremarkable, CT of the abdomen pelvis shows a 4 cm lobular cystic structure superior and along the left side of the uterus unclear etiology possibly a dilated fallopian tube versus other cystic lesion. Patient had improvement of her pain with the Toradol. But continues to have 4 out of 10 pain. Due to the persistent pain pelvic ultrasound is ordered to further delineate this abnormality. Patient signed out to Dr. Palumbo pending pelvic ultrasound. Assessment/Plan Abdominal pain, acute, left lower quadrant (R10.32: Left lower quadrant pain) Orders: ketorolac, 30 mg = 1 mL, Injection, IV Push, Once, Stop date 10/18/21 4:10:00 EDT, STAT, Start date 10/18/21 4:10:00 EDT, 10/18/21 4:10:00 EDT ondansetron, 4 mg = 2 mL, Injection, IV Push, Once, Stop date 10/18/21 4:10:00 EDT, STAT, Start date 10/18/21 4:10:00 EDT, 10/18/21 4:10:00 EDT Sodium Chloride 0.9% intravenous solution, 1,000 mL, Soln-IV, IV, Once, Stop date 10/18/21 4:10:00 EDT, STAT, Start date 10/18/21 4:10:00 EDT, Infuse over 61, minute(s) Add on Test Automated Diff Basic Metabolic Panel CBC w/ Auto Diff CT Abdomen/Pelvis w/ Contrast eGFR Hepatic Function Panel Lactic Acid Lipase Level U Beta Hcg Qual UA With Cult Reflex US Pelvis Non-OB Complete Disposition Plan Discharge Prescription List Prescriptions No active prescription medications Follow-up No qualifying data available Problem List/Past Medical History Ongoing No qualifying data Historical Hypertension Procedure/Surgical History c section, Cholecystectomy. Medications Inpatient ketorolac 30 mg/mL Inj 1 mL, 30 mg= 1 mL, IV Push, Once NS 1000 ml Bolus, 1000 mL, IV, Once ondansetron 4 mg/2 mL Inj, 4 mg= 2 mL, IV Push, Once Home lisinopril 2.5 mg Tab, 2.5 mg= 1 tab(s), Oral, qPM lisinopril 5 mg Tab, 5 mg= 1 tab(s), Oral, Daily pindolol 5 mg oral tablet, 5 mg= 1 tab(s), Oral, BID sertraline 100 mg Tab, 50 mg= 0.5 tab(s), Oral, Bedtime Allergies Toprol-XL (heart racing) Social History Alcohol - Denies Alcohol Use, 11/09/2017 Current, 11/09/2017 Substance Abuse - Denies Substance Abuse, 09/30/2017 Current, 09/23/2017 Tobacco - Denies Tobacco Use, 09/30/2017 Family History Primary malignant neoplasm of brain: Brother. Primary malignant neoplasm of lung: Father. Lab Results WBC: 10.1 E9/L (10/18/21 04:30:00) RBC: 4.8 E12/L (10/18/21 04:30:00) HGB: 13.2 g (more content not included)... Normal [facility] Comment on above: Result Comment: Elec tronically Signed By: Jeffy Das DO\.br\Date and Time Signed: 10/18/21 06:55 EDT ED Patient Education Noteon 10-18-2021 ED Patient Education Note Gastroenterology Abdominal Pain, Adult Pain in the abdomen (abdominal pain) can be caused by many things. Often, abdominal pain is not serious and it gets better with no treatment or by being treated at home. However, sometimes abdominal pain is serious. Your health care provider will ask questions about your medical history and do a physical exam to try to determine the cause of your abdominal pain. Follow these instructions at home: Medicines ? Take frrm-ien-brmatqk and prescription medicines only as told by your health care provider. ? Do not take a laxative unless told by your health care provider. General instructions ? Watch your condition for any changes. ? Drink enough fluid to keep your urine pale yellow. ? Keep all follow-up visits as told by your health care provider. This is important. Contact a health care provider if: ? Your abdominal pain changes or gets worse. ? You are not hungry or you lose weight without trying. ? You are constipated or have diarrhea for more than 2?3 days. ? You have pain when you urinate or have a bowel movement. ? Your abdominal pain wakes you up at night. ? Your pain gets worse with meals, after eating, or with certain foods. ? You are vomiting and cannot keep anything down. ? You have a fever. ? You have blood in your urine. Get help right away if: ? Your pain does not go away as soon as your health care provider told you to expect. ? You cannot stop vomiting. ? Your pain is only in areas of the abdomen, such as the right side or the left lower portion of the abdomen. Pain on the right side could be caused by appendicitis. ? You have bloody or black stools, or stools that look like tar. ? You have severe pain, cramping, or bloating in your abdomen. ? You have signs of dehydration, such as: ? Dark urine, very little urine, or no urine. ? Cracked lips. ? Dry mouth. ? Sunken eyes. ? Sleepiness. ? Weakness. ? You have trouble breathing or chest pain. Summary ? Often, abdominal pain is not serious and it gets better with no treatment or by being treated at home. However, sometimes abdominal pain is serious. ? Watch your condition for any changes. ? Take qrlm-uwr-jnumsss and prescription medicines only as told by your health care provider. ? Contact a health care provider if your abdominal pain changes or gets worse. ? Get help right away if you have severe pain, cramping, or bloating in your abdomen. This information is not intended to replace advice given to you by your health care provider. Make sure you discuss any questions you have with your health care provider. Document Released: 03/05/2006 Document Revised: 10/04/2019 Document Reviewed: 10/04/2019 [employer] Patient Education ? 2019 [email or web address]. Normal [facility] ED Patient Summaryon 022 ED Patient Summary (Inserted Image. Ade ble to display) [place] [id number] Patient Discharge Instructions Person Information Name: GLADIS MICHAEL Age: 46 Years Arrival Date: 10/18/2021 03:56:10 Discharge Diagnosis: 1:Hydrosalpinx; Abdominal pain, acute, left lower quadrant Primary Care Physician: JOVITA WAITE CNP Provider Information Primary Provider: Jeffy Das DO Advanced Classroom Paraprofessional:None The exam and treatment you received in the Emergency Department were for an urgent problem and are not intended as complete care. It is important that you follow up with a doctor, nurse practitioner, or physician?s student assistant for ongoing care. If your symptoms become worse or you do not improve as expected and you are unable to reach your usual health care provider, you should return to the Emergency Department. We are available 24 hours a day. GLADIS MICHAEL has been given the following list of patient education materials, prescriptions and follow-up instructions: Follow-up Instructions: With: Address: When: Gustavo FONTAINE On License Of [facility], [address] [place] [address] [place] [address] Business (1) In 3 days 10/21/2021 With: Address: When: JOVITA MARIANN [address] [place] [phone] Business (1) In 3 days 10/21/2021 Comments: The ultrasound showed that you have fluid in your fallopian tube. Make sure to follow-up with Dr. Fontaine as instructed. Return to the emergency room if your pain gets worse, fever, vomiting or any new symptoms. In the event that this physician does not participate in your insurance network, please consult with your insurance company to find a nearby participating provider. Patient Education Materials: Abdominal Pain, Adult A MESSAGE TO ALL PATIENTS REGARDING OPIOIDS PRESCRIPTION OPIOIDS: WHAT YOU NEED TO KNOW Prescription opioids can be used to help relieve soicxyod-cs-jfzwfe pain and are often prescribed following a surgery or injury, or for certain health conditions. These medications can be an important part of the treatment but also come with serious risks. It is important to work with your healthcare provider to make sure you are getting the safest, most effective care. WHAT ARE THE RISKS AND SIDE EFFECTS OF OPIOID USE? Prescription opioids carry serious risks of addiction and overdose, especially with prolonged use. An opioid overdose, often marked by slowed breathing, can cause sudden . The use of prescription opioids can have a number of side effects as well, even when taken as directed: ? Tolerance?meaning you might need to take more of the medication for the same pain relief ? Physical dependence?meaning you have symptoms of withdrawal when a medication is stopped ? Increased sensitivity to pain ? Constipation ? Nausea, vomiting, and dry mouth ? Sleepiness and dizziness ? Confusion ? Depression ? Low levels of testosterone that can result in lower sex drive, energy, and strength ? Itching and sweating RISKS ARE GREATER WITH: ? History of drug misuse, substance use disorder, or overdose ? Mental health conditions (such as depression or anxiety) ? Sleep apnea ? Older age (65 years and older) ? Avoid alcohol while taking prescription opioids. Also, unless specifically advised by your health care provider, medications to avoid include: ? Benzodiazepines (such as Xanax or Valium) ? Muscle relaxants (such as Soma or Flexeril) ? Hypnotics (such as Ambien or Lunesta) ? Other prescription opioids KNOW YOUR OPTIONS Talk to your health care provider about ways to manage your pain that don?t involve prescription opioids. Some of these options may actually work better and have fewer risks and side effects. Options may include: ? Pain relievers such as acetaminophen, ibuprofen, and naproxen ? Some medication that are also used for depression or seizures ? Physical therapy and exercise ? Cognitive behavioral therapy, a psychological, goal-directed approach, in which patients learn how to modify physical, behavioral, and emotional triggers of pain and stress. IF YOU ARE PRESCRIBED OPIOIDS FOR PAIN: ? Never take opioids in greater amounts or more often than prescribed. ? Follow up with your primary health care provider. o Work together to create a plan on how to manage your pain. o Talk about ways to help manage your pain that don?t involve prescription opioids. o Talk about any and all concerns and side effects. ? Help prevent misuse and abuse o Never sell or share prescription opioids. o Never use another person?s prescription opioids. ? Store prescription opioids in a secure place and out of reach of others (this may include visitors, children, friends, and family). ? Safely dispose of unused prescription opioids: Find your community drug take-back program or your pharmacy mail-back p (more content not included)... Normal [facility] HEMATOLOGYOrdered By: SYSTEM SYSTEM on 10-18-2021 Basophils/100 WBC (Bld) 1.0 % Normal 0.0 - 2.0 % [facility] HemeAutoSS Basophils/Leukocyte s Auto (Bld) [Pure # fraction] 0.1 E9/L Normal 0.0 - 0.2 E9/L [facility] HemeAutoSS Eosinophils/100 WBC (Bld) 1.3 % Normal 0.0 - 8.0 % [facility] HemeAutoSS Eosinophils/Leukocy denise Auto (Bld) [Pure # fraction] 0.1 E9/L Normal 0.0 - 0.5 E9/L [facility] HemeAutoSS Lymphocytes/100 WBC (Bld) 25.5 % Normal 14.0 - 50.0 % [facility] HemeAutoSS Lymphocytes/Leukocy denise Auto (Bld) [Pure # fraction] 2.6 E9/L Normal 1.0 - 4.0 E9/L [facility] HemeAutoSS Monocytes/100 WBC (Bld) 5.7 % Normal 4.0 - 14.0 % [facility] HemeAutoSS Monocytes/Leukocyte s Auto (Bld) [Pure # fraction] 0.6 E9/L Normal 0.2 - 1.0 E9/L [facility] HemeAutoSS Neutrophils/100 WBC (Bld) 66.5 % Normal 36.0 - 75.0 % [facility] HemeAutoSS Neutrophils/Leukocy denise Auto (Bld) [Pure # fraction] 6.7 E9/L Normal 2.0 - 7.5 E9/L [facility] HemeAutoSS HEMATOLOGYOrdered By: Gasper Moon on 10-18-2021 Erythrocyte distribution width (RBC) [Ratio] 13.5 % Normal 10.9 - 14.2 % [facility] HemeAutoSS Hematocrit (Bld) [Volume fraction] 38.7 % Normal 34.0 - 46.0 % [facility] HemeAutoSS Hemoglobin (Bld) [Mass/Vol] 13.2 g/dL Normal 12.0 - 16.0 gm/dL [facility] HemeAutoSS MCH (RBC) [Entitic mass] 27.6 pg Normal 27.0 - 34.0 pg [facility] HemeAutoSS MCHC (RBC) [Mass/Vol] 34.2 g/dL Normal 31.4 - 36.0 gm/dL [facility] HemeAutoSS MCV (RBC) [Entitic vol] 81.0 fL Normal 80.0 - 100.0 fL [facility] HemeAutoSS Platelet mean volume (Bld) [Entitic vol] 7.9 fL Normal 6.4 - 10.8 fL [facility] HemeAutoSS Platelets (Bld) [#/Vol] 415.0 E9/L Normal 150.0 - 500.0 E9/L [facility] HemeAutoSS RBC (Bld) [#/Vol] 4.8 E12/L Normal 4.3 - 5.9 E12/L [facility] HemeAutoSS WBC corrected for nucl RBC Auto (Bld) [#/Vol] 10.1 E9/L Normal 4.0 - 11.0 E9/L [facility] HemeAutoSS Hep Func Panelon 10-18-2021 Albumin [Mass/Vol] 4.2 g/dL Normal 3.3-5.0 [facility] Comment on above: Performed By: #### 2 067068, 5657469, 34267412, 7573609, 5622882, 0770659, 9365225 ####[facility] [address] [place] [address] Albumin/Globulin (S) [Mass conc ratio] 1.2 Normal 1.1-2.2 [facility] Comment on above: Performed By: #### 2 049053, 2652856, 44291954, 8610112, 4808227, 8464815, 7334179 ####[facility] [address] [place] [address] ALP [Catalytic activity/Vol] 48 Int._Unit/L Normal 21-98 [facility] Comment on above: Performed By: #### 2 760198, 7012840, 43017279, 4624158, 0460236, 1293006, 3410167 ####[facility] [address] [place] [address] ALT No additional P-5'-P [Catalytic activity/Vol] 26 Int._Unit/L Normal 6-46 [facility] Comment on above: Performed By: #### 2 988888, 2757960, 56748501, 5227097, 0737292, 7515476, 8902399 ####[facility] [address] [place] [address] AST [Catalytic activity/Vol] 23 Int._Unit/L Normal 5-43 [facility] Comment on above: Performed By: #### 2 240167, 2597400, 76609191, 1104973, 3423936, 1108551, 5643994 ####[facility] [address] [place] [address] Bilirubin [Mass/Vol] 0.8 mg/dL Normal 0.0-1.1 [facility] Comment on above: Performed By: #### 2 983114, 9516828, 64772988, 5299446, 4510646, 1058453, 1873533 ####[facility] [address] [place] [address] Bilirubin.direct [Mass/Vol] 0.2 mg/dL Normal 0.1-0.4 [facility] Comment on above: Performed By: #### 2 291996, 2057162, 02769946, 1062739, 8209913, 3801797, 5366012 ####[address] [address] Bilirubin.indirect [Mass or moles/Vol] 0.6 mg/dL Normal 0.1-0.9 [facility] Comment on above: Performed By: #### 2 603954, 3661321, 47068086, 9677789, 2739509, 6329786, 0275461 ####[address] [address] Globulin (S) [Mass/Vol] 3.6 g/dL Normal 1.4-4.0 [facility] Comment on above: Performed By: #### 2 157709, 7980522, 11829362, 4859285, 7035039, 0135924, 2951750 ####[address] [address] Protein [Mass/Vol] 7.8 g/dL Normal 6.0-7.8 [facility] Comment on above: Performed By: #### 2 515054, 6031178, 26117191, 1877645, 8493130, 4914224, 7002160 ####[address] [address] Lactic Acidon 10-18-2021 Lactate [Mass/Vol] 1.1 mmol/L Normal 0.5-2.2 [facility] Comment on above: Performed By: #### 2 953596, 8908471, 07640748, 0305947, 2767192, 7051855, 1262061 ####[address] [place] [address] Lipase Levelon 10-18-2021 Lipase [Catalytic activity/Vol] 28 U/L Normal 13-58 [facility] Comment on above: Performed By: #### 2 328799, 8147818, 68248402, 2758486, 7310167, 3295583, 4437815 ####[facility] [address] [place] [address] RAD - Preliminary Cat Scan R eporton 10-18-2021 RAD - Preliminary Cat Scan Report [id number] Normal [facility] SEROLOGYOrdered By: Amber russ on 10-18-2021 HCG.beta subunit (U) [Moles/Vol] Negative Normal [facility] Man Sero U BetaHcg Qualon 10-18-2021 HCG.beta subunit (U) [Moles/Vol] Negative Normal [facility] Comment on above: Performed By: #### 2 0037752, [id number] ####[facility] [address] [place] [address] UA With Cult Reflexon 2021 Bacteria LM Ql (Urine sed) TRACE Normal Trace [facility] Comment on above: Performed By: #### 2 6294910, [id number] ####[facility] [address] [place] [address] Bilirubin Ql (U) Negative Normal Negative [facility] Comment on above: Performed By: #### 2 5593534, 25912141 ####[facility] [address] [place] [address] Clarity (U) CLEAR Normal Clear [facility] Comment on above: Performed By: #### 2 7769100, 89791595 ####[facility] [address] [place] [address] Color (U) STRAW Invalid Interpretation Code [facility] Comment on above: Performed By: #### 2 2943165, 25890893 ####[facility] [address] [place] [address] Epithelial cells.squamous LM.HPF (Urine sed) [#/Area] 0-2 Normal 0-2 [facility] Comment on above: Performed By: #### 2 8093343, 04856986 ####[facility] [address] [place] [address] Glucose Test strip (U) [Mass/Vol] Negative Normal Negative [facility] Comment on above: Performed By: #### 2 0350987, 26774152 ####[facility] [address] [place] [address] Hemoglobin Ql (U) TRACE Abnormal Negative [facility] Comment on above: Performed By: #### 2 9675100, 59560977 ####[address] [address] Ketones (U) [Mass/Vol] Negative Normal Negative [facility] Comment on above: Performed By: #### 2 5372924, 37673276 ####[facility] [address] [place] [address] Cartwright.plasma/Lith ium.RBC (Bld) [Mass ratio] 0-3 Normal 0-3 [facility] Comment on above: Performed By: #### 2 8614732, 00457089 ####[facility] [address] [place] [address] Nitrite Ql (U) Negative Normal Negative [facility] Comment on above: Performed By: #### 2 4298106, 45608621 ####[facility] [address] [place] [address] pH (U) 6.5 [pH] Invalid Interpretation Code 5.0-9.0 [facility] Comment on above: Performed By: #### 2 7602380, 49731133 ####[facility] [address] [place] [address] Protein (U) [Mass/Vol] Negative Normal Negative [facility] Comment on above: Performed By: #### 2 8392045, 29224019 ####[facility] [address] [place] [address] Specific gravity (U) [Rel density] 1.010 Invalid Interpretation Code 1.005-1.030 [facility] Comment on above: Performed By: #### 2 3562343, 65068099 ####[place] [address] Type of Urine collection method Clean Catch Normal [facility] Comment on above: Performed By: #### 2 8864307, 20292067 ####[place] [address] Urobilinogen Qn (U) 0.2 {Sonya'U}/dL Normal 0.0-1.0 [facility] Comment on above: Performed By: #### 2 3053846, 10928072 ####[place] [address] WBC Auto Ql (U) TRACE Abnormal Negative [facility] Comment on above: Performed By: #### 2 9166522, 38256172 ####[facility] [address] [place] [address] WBC LM.HPF (Urine sed) [#/Area] 0-5 Normal 0-5 [facility] Comment on above: Performed By: #### 2 0070205, 61193616 ####[facility] [address] [place] [address] URINALYSISOrdered By: Gasper Moon on 10-18-2021 Bacteria LM Ql (Urine sed) Trace /HPF Normal Trace/HPF [facility] UA Auto SS Bilirubin Ql (U) Negative (10/18/21 5:09 AM) Normal Negative [facility] UA Auto SS Clarity (U) Clear (10/18/21 5:09 AM) Normal Clear [facility] UA Auto SS Color (U) STRAW Invalid Interpretation Code [facility] UA Auto SS Epithelial cells.squamous LM.HPF (Urine sed) [#/Area] 0-2 /HPF Normal 0-2/HPF [facility] UA Auto SS Glucose Test strip (U) [Mass/Vol] Negative (10/18/21 5:09 AM) Normal Negative [facility] UA Auto SS Hemoglobin Ql (U) Trace *ABN* (10/18/21 5:09 AM) Invalid Interpretation Code Negative [facility] UA Auto SS Ketones (U) [Mass/Vol] Negative (10/18/21 5:09 AM) Normal Negative [facility] UA Auto SS Cartwright.plasma/Lith ium.RBC (Bld) [Mass ratio] 0-3 /HPF Normal 0-3/HPF [facility] UA Auto SS Nitrite Ql (U) Negative (10/18/21 5:09 AM) Normal Negative [facility] UA Auto SS pH (U) 6.5 *NA* (10/18/21 5:09 AM) Invalid Interpretation Code 5.0 - 9.0 [facility] UA Auto SS Protein (U) [Mass/Vol] Negative (10/18/21 5:09 AM) Normal Negative [facility] UA Auto SS Specific gravity (U) [Rel density] 1.010 *NA* (10/18/21 5:09 AM) Invalid Interpretation Code 1.005 - 1.030 [facility] UA Auto SS UA Spec Desc Clean Catch (10/18/21 5:09 AM) Normal [facility] UA Auto SS Urobilinogen Qn (U) 0.4770588 {Sonya'U}/dL Normal 0.0 - 1.0 EU/dL [facility] UA Auto SS WBC Auto Ql (U) Trace *ABN* (10/18/21 5:09 AM) Invalid Interpretation Code Negative [facility] UA Auto SS WBC LM.HPF (Urine sed) [#/Area] 0-5 /HPF Normal 0-5/HPF [facility] UA Auto SS US Pelvis Non-OB Completeon 10-18-2021 US Pelvis Non-OB Complete Exam Date/Time: 10/18/2021 07:58 EDT Reason for Exam: Pelvic pain Report IMPRESSION: BILATERAL OVARIAN CYSTS, LARGER ON THE LEFT THAN ON THE RIGHT. FLUID-FILLED SERPIGINOUS TUBULAR STRUCTURE ADJACENT TO THE BODY OF THE UTERUS ON THE LEFT, AND THE APPEARANCE IS CONSISTENT WITH A DILATED LEFT FALLOPIAN TUBE (HYDROSALPINX). FURTHER CLINICAL EVALUATION IS RECOMMENDED. CLINICAL HISTORY: Pelvic pain. COMPARISON: CT scan on 10/18/2021. COMMENT: Transabdominal and transvaginal images were obtained. The uterus measurements and an estimated volume are: Uterus Length: 10.2 cm Uterus Width: 5.2 cm Uterus Height: 4.3 cm Uterus Volume: 120.4 cm3 Endometrium Thickness: 0.4 cm No abnormality of the echo pattern of the uterus is noted. No uterine mass is evident. The right ovary measurements and an estimated volume are: Right Ovary Length: 2.5 cm Right Ovary Width: 2.9 cm Right Ovary Height: 1.5 cm Right Ovary Volume: 5.8 cm3 The left ovary measurements and an estimated volume are: Left Ovary Length: 3.6 cm Left Ovary Width: 3.6 cm Left Ovary Height: 1.5 cm Left Ovary Volume: 10.5 cm3 There is a right ovarian cyst, that measures approximately 1.2 x 0.8 x 1 cm. There are a few smaller right ovarian cysts. The right ovary is otherwise unremarkable. On color flow Doppler images, there is vascular flow to the right ovary. There is a left ovarian cyst that measures approximately 2.4 x 0.9 x 2.2 cm. There are a few smaller left ovarian cysts. On color flow Doppler images, there is vascular flow to the left ovary. 2. The left and posterior to the body uterus, there is a fluid-filled serpiginous Report tubular structure, with a thickened wall, that is felt to correspond to the fluid containing structure noted to the left of the body of uterus on the CT scan. The ultrasound appearance suggests a prominently dilated left fallopian tube, with a greatest diameter of approximately 1.2 cm. On the color flow Doppler images, no hyperemia is seen involving the wall of this dilated structure. No free fluid is noted in the cul-de-sac. FINAL REPORT Dictated: 10/18/2021 11:10 am Ethan Brothers M.D. Signed (Electronic Signature): 10/18/2021 11:10 am Signed by: Ethan Brothers M.D. Transcribed by: RAMANDEEP Technologist: CAIN Malin [facility] US Transvaginal Non-OBon US Transvaginal Non-OB Exam Date/Time: 10/18/2021 07:59 EDT Reason for Exam: Pelvic pain Report PLEASE REFER TO THE ULTRASOUND NON-OB COMPLETE REPORT. FINAL REPORT Dictated: 10/18/2021 11:12 am Ethan Brothers M.D. Signed (Electronic Signature): 10/18/2021 11:12 am Signed by: Ethan Brothers M.D. Transcribed by: RAMANDEEP Technologist: CAIN Normal [facility] eGFRon 10-18-2021 GFR/1.73 sq M.predicted among blacks MDRD (S/P/Bld) [Vol rate/Area] mL/min/{1.73_m2} Normal >=59 [facility] Comment on above: Order Comment: Order added by Discern Expert. Result Comment: eGFR is race adjusted. AA=. Performed By: #### 2 804876, 3362206, 06359701, 6975594, 9946903, 9426690, 6365570 ####[facility] [address] [place] [address] GFR/1.73 sq M.predicted among non-blacks MDRD (S/P/Bld) [Vol rate/Area] mL/min/{1.73_m2} Normal >=59 [facility] Comment on above: Order Comment: Order added by Discern Expert. Result Comment: [employer] ramo kidney disease could be indicated at eGFR's of less than 60 mL/min/1.73m2. Kidney failure is indicated at less than 15 mL/min/1.73m2. Performed By: #### 2 461771, 1440603, 76502167, 8978571, 4127651, 7470958, 2696136 ####[facility] [address] [place] [address] CBC AUTO DIFFon 09-27-2021 BASO # 0.1 103/ul Normal 0.0-0.1 [facility] Comment on above: Performed By: #### C BC #### [facility] [address] [address] [address] Kristen Gambino Basophils/100 WBC (Bld) 1.0 % Normal 0.2-2.0 [facility] Comment on above: Performed By: #### C BC #### [facility] [address] [address] [address] Kristen Gambino EO # 0.1 103/ul Normal 0.0-0.7 [facility] Comment on above: Performed By: #### C BC #### [facility] [address] [place] [address] Dr. Kristen Gambino Eosinophils/100 WBC (Bld) 0.9 % Normal 0.9-7.0 [facility] Comment on above: Performed By: #### C BC #### [facility] [address] [place] [address] Dr. Kristen Gambino Erythrocyte distribution width (RBC) [Ratio] 13.3 % Normal 11.0-15.0 [facility] Comment on above: Performed By: #### C BC #### [facility] [address] [place] [address] Dr. Kristen Gambino Hematocrit (Bld) [Volume fraction] 44.6 % Normal 36.0-48.0 [facility] Comment on above: Performed By: #### C BC #### [facility] [address] [place] [address] Dr. Kristen Gambino Hemoglobin (Bld) [Mass/Vol] 14.4 g/dL Normal 12.0-16.0 [facility] Comment on above: Performed By: #### C BC #### [facility] [address] [place] [address] Dr. Kristen Gambino IG # 0.03 10e3/ul Normal 0.00-0.03 [facility] Comment on above: Performed By: #### C BC #### [facility] [address] [place] [address] Dr. Kristen Gambino IG % 0.3 % Normal 0.0-0.5 [facility] Comment on above: Performed By: #### C BC #### [facility] [address] [place] [address] Dr. Kristen Gambino LYMPH # 1.6 103/ul Normal 1.2-3.8 [facility] Comment on above: Performed By: #### C BC #### [facility] [address] [place] [address] Dr. Kristen Gambino Lymphocytes/100 WBC (Bld) 17.9 % Critically low 20.5-60.0 [facility] Comment on above: Performed By: #### C BC #### [facility] [address] [place] [address] Dr. Kristen Gambino MANUAL DIFF REQ NO Normal [facility] Comment on above: Performed By: #### C BC #### [facility] [address] [place] [address] Dr. Kristen Gambino MCH (RBC) [Entitic mass] 27.1 pg Normal 26.7-34.0 [facility] Comment on above: Performed By: #### C BC #### [facility] [address] [place] [address] Dr. Kristen Gambino MCHC (RBC) [Mass/Vol] 32.3 g/dL Normal 29.9-35.2 [facility] Comment on above: Performed By: #### C BC #### [facility] [address] [place] [address] Dr. Kristen Gambino MCV (RBC) [Entitic vol] 84.0 fL Normal 81.0-99.0 [facility] Comment on above: Performed By: #### C BC #### [facility] [address] [place] [address] Dr. Kristen Gambino MONO # 0.7 103/ul Normal 0.3-0.8 [facility] Comment on above: Performed By: #### C BC #### [facility] [address] [place] [address] Dr. Kristen Gambino Monocytes/100 WBC (Bld) 7.6 % Normal 1.7-12.0 [facility] Comment on above: Performed By: #### C BC #### [facility] [address] [place] [address] Dr. Kristen Gambino NEUT # 6.6 103/ul Critically high 1.4-6.5 [facility] Comment on above: Performed By: #### C BC #### [facility] [address] [place] [address] Dr. Kristen Gambino Neutrophils/100 WBC (Bld) 72.3 % Normal 43.0-75.0 [facility] Comment on above: Performed By: #### C BC #### [facility] [address] [address] [address] Kristen Gambino Platelet mean volume (Bld) [Entitic vol] 9.8 fL Normal 9.5-13.5 [facility] Comment on above: Performed By: #### C BC #### [facility] [address] [address] [address] Kristen Gambino PLT 427 103/ul Normal 150-450 [facility] Comment on above: Performed By: #### C BC #### [facility] [address] [address] [address] Kristen Gambino RBC 5.31 106/ul Normal 4.20-5.40 [facility] Comment on above: Performed By: #### C BC #### [facility] [address] [place] [address] Dr. Kristen Gambino WBC 9.1 103/ul Normal 4.0-11.0 [facility] Comment on above: Performed By: #### C BC #### [facility] [address] [place] [address] Dr. Kristen Gambino LIPID PROFILEon 09-27-2021 CHOL-HDL RATIO NORM SEE BELOW Normal [facility] Comment on above: Result Comment: 3.3 - 4.4 LOW RISK 4.4 - 7.1 AVERAGE RISK 7.1 - 11.0 MODERATE RISK >11.0 HIGH RISK Performed By: #### C MP, LIPID #### [facility] [address] [place] [address] Dr. Kristen Gambino Cholesterol [Mass/Vol] 186 mg/dL Normal <=200 [facility] Comment on above: Performed By: #### C MP, LIPID #### [facility] [address] [place] [address] Dr. Kristen Gambino Cholesterol in HDL [Mass/Vol] 43 mg/dL Normal 40-60 [facility] Comment on above: Performed By: #### C MP, LIPID #### [facility] [address] [place] [address] Dr. Kristen Gambino Cholesterol in LDL [Mass/Vol] 106.6 mg/dL Normal [facility] Comment on above: Performed By: #### C MP, LIPID #### [facility] [address] [address] [address] Kristen Gambino Cholesterol.total/C holesterol in HDL [Mass ratio] 4.3 {ratio} Normal [facility] Comment on above: Performed By: #### C MP, LIPID #### [facility] [address] [place] [address] Dr. Kristen Gambino HDL NORMAL > or = 60 mg/dl - LO W CARDIOVASCULAR RISK <40 mg/dl - HIGH CARDIOVASCULAR RISK Normal [facility] Comment on above: Performed By: #### C MP, LIPID #### [facility] [address] [address] [address] Kristen Gambino LDL CALC NORMAL SEE BELOW Normal [facility] Comment on above: Result Comment: <100 mg/dl OPTIMAL 100 - 129 mg/dl NEAR OR ABOVE OPTIMAL 130 - 159 mg/dl BORDERLINE HIGH 160 - 189 mg/dl HIGH >190 mg/dl VERY HIGH Performed By: #### C MP, LIPID #### [facility] [address] [place] [address] Dr. Kristen Gambino Triglyceride [Mass/Vol] 182 mg/dL Critically high <=150 [facility] Comment on above: Performed By: #### C MP, LIPID #### [facility] [address] [place] [address] Dr. Kristen Gambino VLDL CALC 36.4 mg/dL Normal [facility] Comment on above: Performed By: #### C MP, LIPID #### [facility] [address] [place] [address] Dr. Kristen Gambino PROF 14(COMP METB)on 022 Albumin [Mass/Vol] 3.7 g/dL Normal 3.4-5.0 [facility] Comment on above: Performed By: #### C MP, LIPID #### [facility] [address] [place] [address] Dr. Kristen Gambino Albumin/Globulin [Mass ratio] 0.8 {ratio} Normal [facility] Comment on above: Performed By: #### C MP, LIPID #### [facility] [address] [place] [address] Dr. Kristen Gambino ALP [Catalytic activity/Vol] 70 U/L Normal 46-116 [facility] Comment on above: Performed By: #### C MP, LIPID #### [facility] [address] [address] [address] Kristen Gambino ALT [Catalytic activity/Vol] 35 U/L Normal 14-59 [facility] Comment on above: Performed By: #### C MP, LIPID #### [facility] [address] [address] [address] Kristen Gambino Anion gap [Moles/Vol] 13.1 mmol/L Normal [facility] Comment on above: Performed By: #### C MP, LIPID #### [facility] [address] [place] [address] Dr. Kristen Gambino AST [Catalytic activity/Vol] 19 U/L Normal 15-37 [facility] Comment on above: Performed By: #### C MP, LIPID #### [facility] [address] [place] [address] Dr. Kristen Gambino Bilirubin [Mass/Vol] 0.7 mg/dL Normal 0.2-1.3 [facility] Comment on above: Performed By: #### C MP, LIPID #### [facility] [address] [place] [address] Dr. Kristen Gambino Calcium [Mass/Vol] 8.5 mg/dL Normal 8.5-10.1 [facility] Comment on above: Performed By: #### C MP, LIPID #### [facility] [address] [place] [address] Dr. Kristen Gambino Chloride [Moles/Vol] 102 mmol/L Normal 98-107 [facility] Comment on above: Performed By: #### C MP, LIPID #### [facility] [address] [address] [address] Kristen Gambino CO2 [Moles/Vol] 25.9 mmol/L Normal 22.0-30.0 [facility] Comment on above: Performed By: #### C MP, LIPID #### [facility] [address] [place] [address] Dr. Kristen Gambino Creatinine [Mass/Vol] 0.62 mg/dL Normal 0.52-1.04 [facility] Comment on above: Performed By: #### C MP, LIPID #### [facility] [address] [place] [address] Dr. Kristen Gambino EGFR-AF COMORAN >60 Normal >=60 [facility] Comment on above: Performed By: #### C MP, LIPID #### [facility] [address] [address] [address] Kristen Gambino EGFR-NON AF COMORAN >60 Normal >=60 [facility] Comment on above: Performed By: #### C MP, LIPID #### [facility] [address] [place] [address] Dr. Kristen Gambino Globulin (S) [Mass/Vol] 4.4 g/dL Normal [facility] Comment on above: Performed By: #### C MP, LIPID #### [facility] [address] [place] [address] Dr. Kristen Gambino Glucose [Mass/Vol] 104 mg/dL Normal 74-106 [facility] Comment on above: Performed By: #### C MP, LIPID #### [facility] [address] [place] [address] Dr. Kristen Gambino Potassium [Moles/Vol] 4.0 mmol/L Normal 3.4-5.0 [facility] Comment on above: Performed By: #### C MP, LIPID #### [facility] [address] [place] [address] Dr. Kristen Gambino Protein [Mass/Vol] 8.1 g/dL Normal 6.1-8.2 [facility] Comment on above: Performed By: #### C MP, LIPID #### [facility] [address] [place] [address] Dr. Kristen Gambino Sodium [Moles/Vol] 137 mmol/L Normal 137-145 [facility] Comment on above: Performed By: #### C MP, LIPID #### [facility] [address] [place] [address] Dr. Kristen Gambino Urea nitrogen [Mass/Vol] 12.0 mg/dL Normal 7.0-18.0 [facility] Comment on above: Performed By: #### C MP, LIPID #### [facility] [address] [place], [place] [address] Dr. Kristen Gambino Urea nitrogen/Creatinine [Mass ratio] 19.4 mg/mg Normal [facility] Comment on above: Performed By: #### C MP, LIPID #### [facility] [address] [place], [place] [address] Dr. Kristen Gambino PROGRESSon 10-21-2017 PROGRESS HNO ID: [id number] thor: Isaac Carrasco: (none)Author Type: PhysicianType: Progress NotesFiled: 10/21/2017 2:01 PMNote Text:PATIENT NAME: Gladis PatelarMRN: [id number] PHYSICIAN: AVINASH Rubin [facility] [id number] CARE PHYSICIAN: MASOOD Rubin PHYSICIANS:CHIEF COMPLAINT: Pituitary mass (hcc) (primary encounter diagnosis)ASSESSMENT/PLAN:E pistaxisConsidering previous CT of the neck scan finding of nasopharyngealfullness, I have offered her repeat CT of the neck and chest. Bleedingworkup has not revealed any abnormality in PT, PTT, or other abnormalitythat should suggest inherent hypocoagulability. I have deferred plateletfunction workup for now.She will repeat referred back to Robert Hernandez for further evaluation.LymphocytosisAbs olute lymphocytosis - BCR ABL and flow cytometry negative in April2016. Paraprotein evaluation reveals slight IgG Level M spikequantitative is 0.16. No other diagnostic abnormalities. At this pointwe are considering this a monoclonal gammopathy of undeterminedsignificance. For extreme low level of M protein and the immunofixationreport which states that the bands are rather faint, we will continue tomonitor onlyJak 2 was negative in January 2017. Peripheral flow cytometry and BCR ABLPCR was negative in April 2016.CT of the chest abdomen and pelvis in March 2017 did not show any areasof obvious neoplasm.Ea r nose and throat evaluation [facility] from [facility] main campus physicianDr. HERNANDEZ. We will continue to monitor her only. She will repeat imaging inDecember. She'll also make an appointment with her primary care provider.LDH and sedimentation rate within normal limits.(E23.7) Pituitary mass (HCC) (primary encounter diagnosis)Visit (SP) Office on 10/20/17-CONSULT TO ENDOCRINOLOGY Return in about 7 months (around 05/22/2018), or f/u in dec asscheduled.. 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 Pastmedical history heart palpitations, hypertension, trace mitralregurgitation, ovarian cysts, anxiety, chronic lymphocytosis.Lisinopril 2.5 mg tablet, pindolol 5 mg 1 by mouth twice a day. Recentlyhad some chronic fatigue, nausea, lightheadedness, headaches. We follow her for chronic leukocytosis and mild thrombocytosis. no clearpathologic diagnosis has been made. She was essentially asymptomatic atdiagnosis in mid to late 2015. Rodrick 2 was negative in January 2017.Peripheral flow cytometry and BCR ABL PCR was negative in April 2016.Former smokerFamily History.Mother has Jak2 positive essential thrombocytosis/polycythemia .Her sisters had similar disease. Feb 24 2017 she went to her PCP for Ear and throat pain. She had puspockets in her throat. She was given augmentin by Dr. Jose. Fever for5 days straight. Went to ER 02/26. [place] was negative, strep negative.Flu negative. She was placed on Azithromycin. Still not improving 03/02went back to ER. She was vomiting and nausea with persistent fevers to102. He put her on IV antiobiotic and sent script for Levaquin. She wentback to ER 03/09/17. Again no obvious source of fevers. WBC 21Kapparently.Saw ear nose and throat physician Dr. HERNANDEZ and decided to monitor her onlyfor now as she has no large palpable obvious adenopathy or lesions onnasopharyngoscopy. Results CT of the chest abdomen pelvis and neck fromMarch 2017 of this were unrevealing. CT of the neck showed mildlyenlarged right greater than left level IIA lymphadenopathy with prominenceof the nasopharynx and bilateral palatetine tonsillar region. No mass.Focal groundglass opacities in the right upper lobe, no significantadenopathy. Borderline splenomegaly, fatty liver, low-attenuation area inthe left hepatic lobe adjacent to the falciform ligament which was ofunclear etiology. Cysts in bilateral adnexa.October 09, 2017 Still a lot of dizziness.She has had very severe nose bleeds bilaterally and in her mouth. ERcouldn't get to stop and had packing placed. That was left in for 3 days. She had about 4 visits in a week and hasnt bled since. First bloody nosein September.10/20/17he has not had any more nosebleeds. Today reviewed CT neck which showedno nasopharyngeal concerns.Energy still low. Has ENT visit upcoming. Tried to change to local ENTbut cannot secondary to isnurance reasons.Vitals: BP 159/106[second attempt 153/111[ Pulse 69 Temp (Src) 98.5(Oral) Resp 18 Ht 5' 2.008 (1.58m) Wt 233 lb 6.4 oz (105.9kg) SpO2 98% BMI 42.68 kg/(m2). Body surface area is 2.15 meters squared. REVIEW OF SYSTEMS PHYSICAL EXAM ECOG PS: 0 NEGATIVES POSITIVES NEGATIVES POSITIVESGEN: fevers, sweats, chills. Overall feels well. Dizziness improved.well appearing slightly overweightSKIN: lesions, rash, itching. SKIN: Normal color, texture, turgor, norashes or lesionsHEENT: significant headaches, changes in hearing, changes in vision, nosebleeds. see history of present illness for description of epistaxis.ENT: No scleral icterus. no significant adenopathy to palpation.Baseline for her. NECK: Supple, no thyromegaly, no JVD.: dysuria, frequency or incontinence. LYMPH: No cervical,supraclavicular, axillary, inguinal adenopathy.RESP: dyspnea, wheezing. LUNG: Clear to auscultation, no wheezing ralesor rhonchiCARD: chest pain, leg swelling, palpitations. did not discusspalpitations today. HEART: Regular. No murmurs, gallop, or rubs. Noectopy.GI: abdominal pain, diarrhea, constipation, melena, hematochezia.minimal nausea. ABDM: Soft. Non-tender. Non-distended. Bowel soundsnormal. No masses. No hepatosplenomegaly.HEME: prolonged bleeding, bruising, adenopathy. EXT: No clubbing,cyanosis or edema.MUSC: joint pain or swelling. MUSC: No joint swelling, deformity, ortenderness.NEURO: syncope, seizures, peripheral numbness or tingling. BACK: Notenderness to palpation. No flank tenderness.MEDICATIONS:micheal nopril (ZESTRIL, PRINIVIL) 5 mg tablet Take 1 tablet by mouth oncedaily.pindolol (VISKEN) 5 mg tablet Take 5 mg by mouth twice daily.sertraline (ZOLOFT) 50 mg tablet Take 50 mg by mouth once daily.ALLERGIES:ALLERGIESAl lergen Reactions- Toprol Xl [Metoprol* Other: See Comments heart races per patientPAST MEDICAL HISTORYDiagnosis Date- Anxiety- Hypertension- LeukocytosisPAST SURGICAL HISTORYProcedure Laterality Date- DELIVERY ONLY , low transverse- CHOLECYSTECTOMYNo family history on file.SOCIAL HISTORY:Social HistorySubstance Use Topics- Smoking status: Former Smoker Packs/day: 0.50 Years: 10.00 Types: Cigarettes Quit date: 05/22/2005- Smokeless tobacco: Never Used- Alcohol use NoLABS:RADIOLOGY/OTHER STUDIES:COUNSELING:I discussed with Gladis the natural history, treated course, andprognosis of Pituitary mass (hcc) (primary encounter diagnosis); myimpression as well as the rationale, logistics, risks, benefits, andalternatives to the management options noted above; and my recommendationslisted below. The patient Gladisjo Michael verbalized understandingand agreed with these recommendations and plan. I answered all questionssatisfactorily..Tulio Shelton D.O.Medical OncologistFormerly [facility] CNOVSPon 10-20-2017 CNOVSP Visit (SP) Office ([place]) -------GLADIS MICHAEL ([id number]) 1975 FDate Time Provider Department10/20/17 10:00 AM ISAAC SHELTON During your visit today, we recorded the following information about you: Temperature Pulse Respiration Blood pressure 98.5 degrees 69/minute 18/minute 159/106 Weight Height 105.9 kg 1.575 Kassidy Shelton DO 10/21/2017 2:01 PM SignedPATIENT NAME: Gladis Daniels AmandaarMRN: [id number] PHYSICIAN: MICHAEL [address]in[address] [place] [id number] CARE PHYSICIAN: Joseph Harris DOOTHER PHYSICIANS:CHIEF COMPLAINT: Pituitary mass (hcc) (primary encounter diagnosis)ASSESSMENT/PLAN:E pistaxisConsidering previous CT of the neck scan finding of nasopharyngeal fullness, Jay offered her repeat CT of the neck and chest. Bleeding workup has notrevealed any abnormality in PT, PTT, or other abnormality that should suggestinherent hypocoagulability. I have deferred platelet function workup for now.She will repeat referred back to Robert Hernandez for further evaluation.LymphocytosisAbs olute lymphocytosis - BCR ABL and flow cytometry negative in April 2016.Paraprotein evaluation reveals slight IgG Level M spike quantitative is 0.16.No other diagnostic abnormalities. 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 For extreme low level of Mprotein and the immunofixation report which states that the bands are ratherfaint, we will continue to monitor onlyJak 2 was negative in January 2017. Peripheral flow cytometry and BCR ABL PCRwas negative in April 2016.CT of the chest abdomen and pelvis in March 2017 did not show any areas ofobvious neoplasm.Ea r nose and throat evaluation likely from clinic main campus physician . We will continue to monitor her only. She will repeat imaging inDecember. She'll also make an appointment with her primary care provider.LDH and sedimentation rate within normal limits.(E23.7) Pituitary mass (HCC) (primary encounter diagnosis)Visit (SP) Office on 10/20/17-CONSULT TO ENDOCRINOLOGY Return in about 7 months (around 05/22/2018), or f/u in may as scheduled.. 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 Pastmedical history heart palpitations, hypertension, trace mitral regurgitation,ovarian cysts, anxiety, chronic lymphocytosis. Lisinopril 2.5 mg tablet,pindolol 5 mg 1 by mouth twice a day. Recently had some chronic fatigue,nausea, lightheadedness, headaches. We follow her for chronic leukocytosis and mild thrombocytosis. no clearpathologic diagnosis has been made. She was essentially asymptomatic atdiagnosis in mid to late 2015. Rodrick 2 was negative in January 2017. Peripheralflow cytometry and BCR ABL PCR was negative in April 2016.Former smokerFamily History.Mother has Jak2 positive essential thrombocytosis/polycythemia .Her sisters had similar disease. Feb 24 2017 she went to her PCP for Ear and throat pain. She had puspockets in her throat. She was given augmentin by Dr. Jose. Fever for 5days straight. Went to ER 02/26. [place] was negative, strep negative. Flunegative. She was placed on Azithromycin. Still not improving 03/02 went backto ER. She was vomiting and nausea with persistent fevers to 102. He put jennifer IV antiobiotic and sent script for Levaquin. She went back to ER 03/09/17.Again no obvious source of fevers. WBC 21K apparently.Saw ear nose and throat physician Dr. HERNANDEZ and decided to monitor her only fornow as she has no large palpable obvious adenopathy or lesions onnasopharyngoscopy. Results CT of the chest abdomen pelvis and neck fromMarch 2017 of this were unrevealing. CT of the neck showed mildly enlargedright greater than left level IIA lymphadenopathy with prominence of thenasopharynx and bilateral palatetine tonsillar region. No mass. Focalgroundglass opacities in the right upper lobe, no significant adenopathy.Borderline splenomegaly, fatty liver, low-attenuation area in the left hepaticlobe adjacent to the falciform ligament which was of unclear etiology. Cystsin bilateral adnexa.October 09, 2017 Still a lot of dizziness.She has had very severe nose bleeds bilaterally and in her mouth. ER couldn'tget to stop and had packing placed. That was left in for 3 days. She hadabout 4 visits in a week and hasnt bled since. First bloody nose in September.10/20/17he has not had any more nosebleeds. Today reviewed CT neck which showed nonasopharyngeal concerns.Energy still low. Has ENT visit upcoming. Tried to change to local ENT butcannot secondary to isnurance reasons.Vitals: BP 159/106[second attempt 153/111[ Pulse 69 Temp (Src) 98.5 (Oral) Resp 18 Ht 5' 2.008 (1.58m) Wt 233 lb 6.4 oz (105.9kg) SpO2 98% BMI42.68 kg/(m2). Body surface area is 2.15 meters squared. REVIEW OF SYSTEMS PHYSICAL EXAM ECOG PS: 0 NEGATIVES POSITIVES NEGATIVES POSITIVESGEN: fevers, sweats, chills. Overall feels well. Dizziness improved. wellappearing slightly overweightSKIN: lesions, rash, itching. SKIN: Normal color, texture, turgor, no rashesor lesionsHEENT: significant headaches, changes in hearing, changes in vision, nosebleeds. see history of present illness for description of epistaxis. ENT:No scleral icterus. no significant adenopathy to palpation. Baseline forher. NECK: Supple, no thyromegaly, no JVD.: dysuria, frequency or incontinence. LYMPH: No cervical, supraclavicular,axillary, inguinal adenopathy.RESP: dyspnea, wheezing. LUNG: Clear to auscultation, no wheezing rales orrhonchiCARD: chest pain, leg swelling, palpitations. did not discuss palpitationstoday. HEART: Regular. No murmurs, gallop, or rubs. No ectopy.GI: abdominal pain, diarrhea, constipation, melena, hematochezia. minimalnausea. ABDM: Soft. Non-tender. Non-distended. Bowel sounds normal. Nomasses. No hepatosplenomegaly.HEME: prolonged bleeding, bruising, adenopathy. EXT: No clubbing, cyanosisor edema.MUSC: joint pain or swelling. MUSC: No joint swelling, deformity, ortenderness.NEURO: syncope, seizures, peripheral numbness or tingling. BACK: Notenderness to palpation. No flank tenderness.MEDICATIONS:micheal nopril (ZESTRIL, PRINIVIL) 5 mg tablet Take 1 tablet by mouth once daily.pindolol (VISKEN) 5 mg tablet Take 5 mg by mouth twice daily.sertraline (ZOLOFT) 50 mg tablet Take 50 mg by mouth once daily.ALLERGIES:ALLERGIESAl lergen Reactions- Toprol Xl [Metoprol* Other: See Comments heart races per patientPAST MEDICAL HISTORYDiagnosis Date- Anxiety- Hypertension- LeukocytosisPAST SURGICAL HISTORYProcedure Laterality Date- DELIVERY ONLY , low transverse- CHOLECYSTECTOMYNo family history on file.SOCIAL HISTORY:Social HistorySubstance Use Topics- Smoking status: Former Smoker Packs/day: 0.50 Years: 10.00 Types: Cigarettes Quit date: 05/22/2005- Smokeless tobacco: Never Used- Alcohol use NoLABS:RADIOLOGY/OTHER STUDIES:COUNSELING:I discussed with Gladis the natural history, treated course, and prognosisof Pituitary mass (hcc) (primary encounter diagnosis); my impression as wellas the rationale, logistics, risks, benefits, and alternatives to themanagement options noted above; and my recommendations listed below. Thepatient Gladis Michael verbalized understanding and agreed with theserecommendations and plan. I answered all questions satisfactorily..Hai Shelton D.O.Medical OncologistMarquette, [place]Referring Provider: ISAAC SHELTON [[id number]]Allergies As of Date: 10/20/2017 Noted Allergy ReactionTOPROL XL (METOPROLOL) 04/11/2016 14 - Other: See Comments Comments: heart races per patientDate Reviewed: 10/20/2017Reviewed by: Josephine Moscoso - Fully AssessedReason for Visit: Lymphocytosis [Other] Cmt: 1 week follow upPrimary Visit Diagnosis: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]Order(s):CONSULT TO ENDOCRINOLOGY [9007] Order #: [id number]: 1Disposition: Return in about 7 months (around 05/22/2018), or f/u in may as scheduled..Follow-up and Disposition History RecordedPrescriptions as of 10/20/2017 Sig: LISINOPRIL 5 MG TABLET Take 1 tablet by mouth once d* PINDOLOL 5 MG TABLET Take 5 mg by mouth twice kwasi* SERTRALINE 50 MG TABLET Take 50 mg by mouth once kwasi*Problem List As Of Date 10/20/2017 Noted Resolved Lymphocytosis [D72.820] INVALID FOR* Cervical adenopathy [R59.0] INVALID FOR* Obesity, Class III, BMI >= 40 E66.01 [E66.01] INVALID FOR* 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] INVALID FOR*Encounter Status:Closed by ISAAC SHELTON DO on 10/21/17 Normal [facility] Remote Abs Gran + CBC (for F HC use only)on 10-20-2017 Absol Gran Count 6.74 k/uL Normal 1.45-7.50 [facility] Erythrocyte distribution width Auto Ratio (RBC) 13.9 % Normal 11.5-15.0 [facility] Erythrocytes (RBC) 4.76 10*6/uL Normal 3.90-5.20 [facility] Hematocrit (HCT) 39.5 % Normal 36.0-46.0 [facility] Hemoglobin mass conc (Bld) 13.4 g/dL Normal 11.5-15.5 [facility] MCH 28.2 pG Normal 26.0-34.0 [facility] MCHC mass conc (RBC) 33.9 g/dL Normal 30.5-36.0 [facility] MCV 83.0 fL Normal 80.0-100.0 [facility] Platelet mean volume (PMV) 9.4 fL Normal 9.0-12.7 [facility] Platelets 434 10*3/uL High 150-400 [facility] WBC (Leukocytes) 10.26 10*3/uL Normal 3.70-11.00 [facility] CNOVSPon 10-09-2017 CNOVSP Visit (SP) Office ([place]) -------GLADIS MICHAEL ([id number]) 1975 FDate Time Provider Department10/09/17 11:15 AM ISAAC SHELTON During your visit today, we recorded the following information about you: Temperature Pulse Respiration Blood pressure 98 degrees 75/minute 18/minute 151/106 Weight Height 111 kg 1.575 Isaac Myers 10/10/2017 2:10 AM SignedPATIENT NAME: Gladis DamianNickRN: [id number] PHYSICIAN: MICHAEL Rubin[address] [place] [id number] CARE PHYSICIAN: MASOOD Rubin PHYSICIANS:CHIEF COMPLAINT: Lymphocytosis (primary encounter diagnosis)Cervical adenopathyASSESSMENT/PLAN:E pistaxisConsidering previous CT of the neck scan finding of nasopharyngeal fullness, Ihleif offered her repeat CT of the neck and chest. Bleeding workup has notrevealed any abnormality in PT, PTT, or other abnormality that should suggestinherent hypocoagulability. I have deferred platelet function workup for now.She will repeat referred back to Robert Hernandez for further evaluation.LymphocytosisAbs olute lymphocytosis - BCR ABL and flow cytometry negative in April 2016.Paraprotein evaluation reveals slight IgG Level M spike quantitative is 0.16.No other diagnostic abnormalities. 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 For extreme low level of Mprotein and the immunofixation report which states that the bands are ratherfaint, we will continue to monitor onlyJak 2 was negative in January 2017. Peripheral flow cytometry and BCR ABL PCRwas negative in April 2016.CT of the chest abdomen and pelvis in March 2017 did not show any areas ofobvious neoplasm.Ea r nose and throat evaluation likely from clinic main campus physician . We will continue to monitor her only. She will repeat imaging inDecember. She'll also make an appointment with her primary care provider.LDH and sedimentation rate within normal limits.(D72.820) Lymphocytosis (primary encounter diagnosis)(R59.0) Cervical adenopathyVisit (SP) Office on 10/09/17-CT NECK SOFT TISSUE W IVCON-CT CHEST WO IVCON-CT CHEST W IVCON-iv contrast (radiology procedure)-iv contrast (radiology procedure) Return in about 1 week (around 10/16/2017), or ct neck and base of skull jesús.make f/u with myelf and Dr. Hernandez.. 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 Harris. Pastmedical history heart palpitations, hypertension, trace mitral regurgitation,ovarian cysts, anxiety, chronic lymphocytosis. Lisinopril 2.5 mg tablet,pindolol 5 mg 1 by mouth twice a day. Recently had some chronic fatigue,nausea, lightheadedness, headaches. We follow her for chronic leukocytosis and mild thrombocytosis. no clearpathologic diagnosis has been made. She was essentially asymptomatic atdiagnosis in mid to late 2015. Rodrick 2 was negative in January 2017. Peripheralflow cytometry and BCR ABL PCR was negative in April 2016.Former smokerFamily History.Mother has Jak2 positive essential thrombocytosis/polycythemia .Her sisters had similar disease. Feb 24 2017 she went to her PCP for Ear and throat pain. She had puspockets in her throat. She was given augmentin by Dr. Jose. Fever for 5days straight. Went to ER 02/26. [place] was negative, strep negative. Flunegative. She was placed on Azithromycin. Still not improving 03/02 went backto ER. She was vomiting and nausea with persistent fevers to 102. He put jennifer IV antiobiotic and sent script for Levaquin. She went back to ER 03/09/17.Again no obvious source of fevers. WBC 21K apparently.Saw ear nose and throat physician Dr. HERNANDEZ and decided to monitor her only fornow as she has no large palpable obvious adenopathy or lesions onnasopharyngoscopy. Results CT of the chest abdomen pelvis and neck fromMarch 2017 of this were unrevealing. CT of the neck showed mildly enlargedright greater than left level IIA lymphadenopathy with prominence of thenasopharynx and bilateral palatetine tonsillar region. No mass. Focalgroundglass opacities in the right upper lobe, no significant adenopathy.Borderline splenomegaly, fatty liver, low-attenuation area in the left hepaticlobe adjacent to the falciform ligament which was of unclear etiology. Cystsin bilateral adnexa.October 09, 2017 Still a lot of dizziness.She has had very severe nose bleeds bilaterally and in her mouth. ER couldn'tget to stop and had packing placed. That was left in for 3 days. She hadabout 4 visits in a week and hasnt bled since. First bloody nose in September.Vitals: BP 151/106 Pulse 75 Temp (Src) 98 (Oral) Resp 18 Ht 5' 2.008 (1.58m) Wt 244 lb 12.8 oz (111.0kg) SpO2 97% BMI 44.76 kg/(m2). Bodysurface area is 2.2 meters squared. REVIEW OF SYSTEMS PHYSICAL EXAM ECOG PS: 0 NEGATIVES POSITIVES NEGATIVES POSITIVESGEN: fevers, sweats, chills. Overall feels well. continued doing withoccasional intermittent dizziness. well appearing slightly overweightSKIN: lesions, rash, itching. SKIN: Normal color, texture, turgor, no rashesor lesionsHEENT: significant headaches, changes in hearing, changes in vision, nosebleeds. see history of present illness for description of epistaxis. ENT:No scleral icterus. no significant adenopathy to palpation. Baseline forher. NECK: Supple, no thyromegaly, no JVD.: dysuria, frequency or incontinence. LYMPH: No cervical, supraclavicular,axillary, inguinal adenopathy.RESP: dyspnea, wheezing. still with cough. LUNG: Clear to auscultation, nowheezing rales or rhonchiCARD: chest pain, leg swelling, palpitations. did not discuss palpitationstoday. HEART: Regular. No murmurs, gallop, or rubs. No ectopy.GI: abdominal pain, diarrhea, constipation, melena, hematochezia. minimalnausea. ABDM: Soft. Non-tender. Non-distended. Bowel sounds normal. Nomasses. No hepatosplenomegaly.HEME: prolonged bleeding, bruising, adenopathy. EXT: No clubbing, cyanosisor edema.MUSC: joint pain or swelling. MUSC: No joint swelling, deformity, ortenderness.NEURO: syncope, seizures, peripheral numbness or tingling. BACK: Notenderness to palpation. No flank tenderness.MEDICATIONS:micheal nopril (ZESTRIL, PRINIVIL) 5 mg tablet Take 1 tablet by mouth once daily.pindolol (VISKEN) 5 mg tablet Take 5 mg by mouth twice daily.sertraline (ZOLOFT) 50 mg tablet Take 50 mg by mouth once daily.iv contrast (radiology procedure) CT Chest W -Inject, intravenously, once for 1dose.No IV access, insert saline lock prior to the beginning of sedation,infusion, injection of imaging exam. Discontinue saline lock post exam. If Pt.has a central line or IVAD, may access for administration according to linespecific nursing protocol. Once exam is complete flush line and de-accessaccording to line specific nursing protocol in the CT contrast administrationguidelines link.ALLERGIES:ALLERGIESAll ergen Reactions- Toprol Xl [Metoprol* Other: See Comments heart races per patientPAST MEDICAL HISTORYDiagnosis Date- Anxiety- Hypertension- LeukocytosisPAST SURGICAL HISTORYProcedure Laterality Date- DELIVERY ONLY , low transverse- CHOLECYSTECTOMYNo family history on file.SOCIAL HISTORY:Social HistorySubstance Use Topics- Smoking status: Former Smoker Packs/day: 0.50 Years: 10.00 Types: Cigarettes Quit date: 05/22/2005- Smokeless tobacco: Never Used- Alcohol use NoLABS:RADIOLOGY/OTHER STUDIES:COUNSELING:I discussed with Gladis the natural history, treated course, and prognosisof Lymphocytosis (primary encounter diagnosis)Cervical adenopathy; my impression as well as the rationale, logistics, risks,benefits, and alternatives to the management options noted above; and myrecommendations listed below. The patient Gladis Frances Nativarun verbalizedunderstanding and agreed with these recommendations and plan. I answered allquestions satisfactorily..Hai Shelton D.O.Medical OncologistMarquette, [place]Referring Provider: ISAAC SHELTON [[id number]]Allergies As of Date: 10/09/2017 Noted Allergy ReactionTOPROL XL (METOPROLOL) 04/11/2016 14 - Other: See Comments Comments: heart races per patientDate Reviewed: 10/09/2017Reviewed by: Denise Witt - Fully AssessedReason for Visit: lymphocytosis [Other] Cmt: follow up per nursePrimary Visit Diagnosis:Lymphocytosis [D72.820] Other Visit Diagnosis:Cervical adenopathy [R59.0]Order(s):CT NECK SOFT TISSUE W IVCON [[id number]] Order #: [id number] FUTURE [] iv contrast (radiology procedure)Inject 1 Each intravenously one time only for [address] Neck W IVCON No IV access, insert saline lock prior to the sedation, infusion, injection for imaging exam. Discontinue saline lock post exam. If Pt. has a central line or IVAD, may access for administration according to line specific nursing protocol. Once exam is complete flush line and de-access according to line specific nursing protocol in the CT contrast administration guidelines link.Disp: 1 EachRfl: 0 CT CHEST WO IVCON [[id number]] Order #: [id number] FUTURE CT CHEST W IVCON [[id number]] Order #: [id number] FUTURE iv contrast (radiology procedure)CT Chest W -Inject, intravenously, once for 1 dose.No IV access, insert saline lock prior to the beginning of sedation, infusion, injection of imaging exam. Discontinue saline lock post exam. If Pt. has a central line or IVAD, may access for administration according to line specific nursing protocol. Once exam is complete flush line and de-access according to line specific nursing protocol in the CT contrast administration guidelines link.Disp: 1 EachRfl: 0Disposition: Return in about 1 week (around 10/16/2017), or ct neck and base of skull jesús. make f/u with myelf and Dr. Quiroz.Follow-up and Disposition History RecordedPrescriptions as of 10/09/2017 Sig: LISINOPRIL 5 MG TABLET Take 1 tablet by mouth once d* PINDOLOL 5 MG TABLET Take 5 mg by mouth twice kwasi* SERTRALINE 50 MG TABLET Take 50 mg by mouth once kwasi* IV CONTRAST (RADIOLOGY PROCED* CT Chest W -Inject, intraveno* IV CONTRAST (RADIOLOGY PROCED* Inject 1 Each intravenously o*Problem List As Of Date 10/09/2017 Noted Resolved Lymphocytosis [D72.820] INVALID FOR* Cervical adenopathy [R59.0] INVALID FOR* Obesity, Class III, BMI >= 40 E66.01 [E66.01] INVALID FOR*Encounter Status:Closed by ISAAC SHELTON DO on 10/10/17 Normal [facility] PROGRESSon 10-09-2017 PROGRESS HNO ID: [id number] thor: Isaac Shelton JService: (none)Author Type: PhysicianType: Progress NotesFiled: 10/10/2017 2:10 AMNote Text:PATIENT NAME: Gladis Daniels AmandaarMRN: [id number] PHYSICIAN: MICHAEL Rubin[address] [place] [id number] CARE PHYSICIAN: MASOOD Rubin PHYSICIANS:CHIEF COMPLAINT: Lymphocytosis (primary encounter diagnosis)Cervical adenopathyASSESSMENT/PLAN:E pistaxisConsidering previous CT of the neck scan finding of nasopharyngealfullness, I have offered her repeat CT of the neck and chest. Bleedingworkup has not revealed any abnormality in PT, PTT, or other abnormalitythat should suggest inherent hypocoagulability. I have deferred plateletfunction workup for now.She will repeat referred back to Robert Hernandez for further evaluation.LymphocytosisAbs olute lymphocytosis - BCR ABL and flow cytometry negative in April2016. Paraprotein evaluation reveals slight IgG Level M spikequantitative is 0.16. No other diagnostic abnormalities. At this pointwe are considering this a monoclonal gammopathy of undeterminedsignificance. For extreme low level of M protein and the immunofixationreport which states that the bands are rather faint, we will continue tomonitor onlyJak 2 was negative in January 2017. Peripheral flow cytometry and BCR ABLPCR was negative in April 2016.CT of the chest abdomen and pelvis in March 2017 did not show any areasof obvious neoplasm.Ea r nose and throat evaluation likely from clinic main campus physicianDr. HERNANDEZ. We will continue to monitor her only. She will repeat imaging inDecember. She'll also make an appointment with her primary care provider.LDH and sedimentation rate within normal limits.(D72.820) Lymphocytosis (primary encounter diagnosis)(R59.0) Cervical adenopathyVisit (SP) Office on 10/09/17-CT NECK SOFT TISSUE W IVCON-CT CHEST WO IVCON-CT CHEST W IVCON-iv contrast (radiology procedure)-iv contrast (radiology procedure) Return in about 1 week (around 10/16/2017), or ct neck and base of skullasap. make f/u with rebecca and Dr. Hernandez.. 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 Harris. Pastmedical history heart palpitations, hypertension, trace mitralregurgitation, ovarian cysts, anxiety, chronic lymphocytosis.Lisinopril 2.5 mg tablet, pindolol 5 mg 1 by mouth twice a day. Recentlyhad some chronic fatigue, nausea, lightheadedness, headaches. We follow her for chronic leukocytosis and mild thrombocytosis. no clearpathologic diagnosis has been made. She was essentially asymptomatic atdiagnosis in mid to late 2015. Rodrick 2 was negative in January 2017.Peripheral flow cytometry and BCR ABL PCR was negative in April 2016.Former smokerFamily History.Mother has Jak2 positive essential thrombocytosis/polycythemia .Her sisters had similar disease. Feb 24 2017 she went to her PCP for Ear and throat pain. She had puspockets in her throat. She was given augmentin by Dr. Jose. Fever for5 days straight. Went to ER 02/26. [place] was negative, strep negative.Flu negative. She was placed on Azithromycin. Still not improving 03/02went back to ER. She was vomiting and nausea with persistent fevers to102. He put her on IV antiobiotic and sent script for Levaquin. She wentback to ER 03/09/17. Again no obvious source of fevers. WBC 21Kapparently.Saw ear nose and throat physician Dr. HERNANDEZ and decided to monitor her onlyfor now as she has no large palpable obvious adenopathy or lesions onnasopharyngoscopy. Results CT of the chest abdomen pelvis and neck fromMarch 2017 of this were unrevealing. CT of the neck showed mildlyenlarged right greater than left level IIA lymphadenopathy with prominenceof the nasopharynx and bilateral palatetine tonsillar region. No mass.Focal groundglass opacities in the right upper lobe, no significantadenopathy. Borderline splenomegaly, fatty liver, low-attenuation area inthe left hepatic lobe adjacent to the falciform ligament which was ofunclear etiology. Cysts in bilateral adnexa.October 09, 2017 Still a lot of dizziness.She has had very severe nose bleeds bilaterally and in her mouth. ERcouldn't get to stop and had packing placed. That was left in for 3 days. She had about 4 visits in a week and hasnt bled since. First bloody nosein September.Vitals: BP 151/106 Pulse 75 Temp (Src) 98 (Oral) Resp 18 Ht 5'2.008 (1.58m) Wt 244 lb 12.8 oz (111.0kg) SpO2 97% BMI 44.76kg/(m2). Body surface area is 2.2 meters squared. REVIEW OF SYSTEMS PHYSICAL EXAM ECOG PS: 0 NEGATIVES POSITIVES NEGATIVES POSITIVESGEN: fevers, sweats, chills. Overall feels well. continued doing withoccasional intermittent dizziness. well appearing slightlyoverweightSKIN: lesions, rash, itching. SKIN: Normal color, texture, turgor, norashes or lesionsHEENT: significant headaches, changes in hearing, changes in vision, nosebleeds. see history of present illness for description of epistaxis.ENT: No scleral icterus. no significant adenopathy to palpation.Baseline for her. NECK: Supple, no thyromegaly, no JVD.: dysuria, frequency or incontinence. LYMPH: No cervical,supraclavicular, axillary, inguinal adenopathy.RESP: dyspnea, wheezing. still with cough. LUNG: Clear to auscultation,no wheezing rales or rhonchiCARD: chest pain, leg swelling, palpitations. did not discusspalpitations today. HEART: Regular. No murmurs, gallop, or rubs. Noectopy.GI: abdominal pain, diarrhea, constipation, melena, hematochezia.minimal nausea. ABDM: Soft. Non-tender. Non-distended. Bowel soundsnormal. No masses. No hepatosplenomegaly.HEME: prolonged bleeding, bruising, adenopathy. EXT: No clubbing,cyanosis or edema.MUSC: joint pain or swelling. MUSC: No joint swelling, deformity, ortenderness.NEURO: syncope, seizures, peripheral numbness or tingling. BACK: Notenderness to palpation. No flank tenderness.MEDICATIONS:micheal nopril (ZESTRIL, PRINIVIL) 5 mg tablet Take 1 tablet by mouth oncedaily.pindolol (VISKEN) 5 mg tablet Take 5 mg by mouth twice daily.sertraline (ZOLOFT) 50 mg tablet Take 50 mg by mouth once daily.iv contrast (radiology procedure) CT Chest W -Inject, intravenously, oncefor 1 dose.No IV access, insert saline lock prior to the beginning ofsedation, infusion, injection of imaging exam. Discontinue saline lockpost exam. If Pt. has a central line or IVAD, may access foradministration according to line specific nursing protocol. Once exam iscomplete flush line and de-access according to line specific nursingprotocol in the CT contrast administration guidelines link.ALLERGIES:ALLERGIESAll ergen Reactions- Toprol Xl [Metoprol* Other: See Comments heart races per patientPAST MEDICAL HISTORYDiagnosis Date- Anxiety- Hypertension- LeukocytosisPAST SURGICAL HISTORYProcedure Laterality Date- DELIVERY ONLY , low transverse- CHOLECYSTECTOMYNo family history on file.SOCIAL HISTORY:Social HistorySubstance Use Topics- Smoking status: Former Smoker Packs/day: 0.50 Years: 10.00 Types: Cigarettes Quit date: 05/22/2005- Smokeless tobacco: Never Used- Alcohol use NoLABS:RADIOLOGY/OTHER STUDIES:COUNSELING:I discussed with Gladis the natural history, treated course, andprognosis of Lymphocytosis (primary encounter diagnosis)Cervical adenopathy; my impression as well as the rationale, logistics,risks, benefits, and alternatives to the management options noted above;and my recommendations listed below. The patient Gladis Michaelverbalized understanding and agreed with these recommendations and plan.I answered all questions satisfactorily..Hai Shelton D.O.Medical OncologistMar[place], [place] Normal [facility] APTTon 10-06-2017 aPTT 22.4 s Low 23.0-32.4 [facility] Comment on above: Result Comment: Unfr actionated Heparin Therapeutic Ranges:Standard Heparin Nomogram: 53 to 78 seconds (anti-Xa level of 0.3 to 0.7 U/ml)Low Dose/ACS Nomogram: 49 to 67 seconds (anti-Xa level of 0.2 to 0.5 U/ml)Stroke Treatment Nomogram: 49 to 67 seconds (anti-Xa level of 0.2 to 0.5 U/ml)Note: The APTT therapeutic range has been determined for the current lot of laboratory APTT reagent in use throughout the [facility]. Performed By: #### P T, PTT, BMP, HFP, LD6, WSR, SEPG, MPASRM, KLFRS ####[facility] [place], [place] [phone] Basic Metabolic Panlon 10-06 Anion gap 12 mmol/L Normal 9-18 [facility] Comment on above: Performed By: #### P T, PTT, BMP, HFP, LD6, WSR, SEPG, MPASRM, KLFRS ####[facility] [place], [place] [phone] Calcium 9.5 mg/dL Normal 8.5-10.2 [facility] Comment on above: Performed By: #### P T, PTT, BMP, HFP, LD6, WSR, SEPG, MPASRM, KLFRS ####[facility], [place] [phone] Chloride 96 mmol/L Low 97-105 [facility] Comment on above: Performed By: #### P T, PTT, BMP, HFP, LD6, WSR, SEPG, MPASRM, KLFRS ####[facility], [place] [phone] CO2 26 mmol/L Normal 22-30 [facility] Comment on above: Performed By: #### P T, PTT, BMP, HFP, LD6, WSR, SEPG, MPASRM, KLFRS ####[address], [place] [phone] Creatinine 0.54 mg/dL Low 0.58-0.96 [facility] Comment on above: Performed By: #### P T, PTT, BMP, HFP, LD6, WSR, SEPG, MPASRM, KLFRS ####[place] [address], [place] [phone] eGFR (non-black) mL/min/{1.73_m2} Normal [facility] Comment on above: Result Comment: eGFR (Estimated GFR) Units of measure: mL/min/1.73 meters squaredeGFR is derived from the reexpressed MDRD Study equation using the following parameters: serum creatinine, age, gender and race. The creatinine assay has been calibrated to be traceable to IDMS.An eGFR <60 mL/min/1.73m2 for >3 months is consistent with chronic kidney disease. Refer to KDOQI guidelines for clinical interpretation.In patients with unstable renal function, e.g. those with acute kidney injury, the eGFR may not accurately reflect actual GFR. Performed By: #### P T, PTT, BMP, HFP, LD6, WSR, SEPG, MPASRM, KLFRS ####[address] [phone] Glucose mass conc 81 mg/dL Normal 74-99 [facility] Comment on above: Result Comment: The [place] [employer] (ADA) provides guidance for cutoff values for fasting glucose and random glucose. The ADA defines fasting as no caloric intake for at least 8 hours. Fasting plasma glucose results between 100 to 125 mg/dL indicate increased risk for diabetes (prediabetes).Fasting plasma glucose results greater than or equal to 126 mg/dL meet the criteria for diagnosis of diabetes. In the absence of unequivocal hyperglycemia, results should be confirmed by repeat testing. In a patient with classic symptoms of hyperglycemia or hyperglycemic crisis, random plasma glucose results greater than or equal to 200 mg/dL meet the criteria for diagnosis of diabetes.Reference: Standards of Medical Care in Diabetes 2016, [place] [employer]. Diabetes Care. 2016.39(Suppl 1). Performed By: #### P T, PTT, BMP, HFP, LD6, WSR, SEPG, MPASRM, KLFRS ####[place] [address] AveCS[address] [place] [phone] Potassium molar conc 4.4 mmol/L Normal 3.7-5.1 [facility] Comment on above: Performed By: #### P T, PTT, BMP, HFP, LD6, WSR, SEPG, MPASRM, KLFRS ####[place] [phone] Sodium 134 mmol/L Low 136-144 [facility] Comment on above: Performed By: #### P T, PTT, BMP, HFP, LD6, WSR, SEPG, MPASRM, KLFRS ####[address] [place] [phone] Urea nitrogen 10 mg/dL Normal 7-21 [facility] Comment on above: Performed By: #### P T, PTT, BMP, HFP, LD6, WSR, SEPG, MPASRM, KLFRS ####[address] [place] [phone] Hepatic Functn Panelon 10-06 Alanine aminotransferase (ALT) 20 U/L Normal 7-38 [facility] Comment on above: Performed By: #### P T, PTT, BMP, HFP, LD6, WSR, SEPG, MPASRM, KLFRS ####[place] [address] [phone] Albumin 4.3 g/dL Normal 3.9-4.9 [facility] Comment on above: Performed By: #### P T, PTT, BMP, HFP, LD6, WSR, SEPG, MPASRM, KLFRS ####[place] [address] [place] [phone] Alkaline phosphatase (ALP) 64 U/L Normal 32-117 [facility] Comment on above: Performed By: #### P T, PTT, BMP, HFP, LD6, WSR, SEPG, MPASRM, KLFRS ####[place] [address] [place] [phone] Aspartate aminotransferase (AST) 14 U/L Normal 13-35 [facility] Comment on above: Performed By: #### P T, PTT, BMP, HFP, LD6, WSR, SEPG, MPASRM, KLFRS ####[address] [place] [phone] Bilirubin (total) 0.3 mg/dL Normal 0.2-1.3 [facility] Comment on above: Performed By: #### P T, PTT, BMP, HFP, LD6, WSR, SEPG, MPASRM, KLFRS ####[address] [place] [phone] Bilirubin,Conjugate d <0.2 Normal <0.2 [facility] Comment on above: Performed By: #### P T, PTT, BMP, HFP, LD6, WSR, SEPG, MPASRM, KLFRS ####[place] [address] [place] [phone] Protein 7.9 g/dL Normal 6.3-8.0 [facility] Comment on above: Performed By: #### P T, PTT, BMP, HFP, LD6, WSR, SEPG, MPASRM, KLFRS ####[address] [place] [phone] Brandon/Cope,Free,Seron 2017 K/L Ratio, Serum 1.83 High 0.26-1.65 [facility] Comment on above: Performed By: #### P T, PTT, BMP, HFP, LD6, WSR, SEPG, MPASRM, KLFRS ####[facility], [place] [phone] Brandon, Free, Serum 22.5 mg/L High 3.30-19.40 [facility] Comment on above: Result Comment: Rare ly, increased serum free light chains values may not be detected due to antigen excess phenomenon. Results should always be correlated with other laboratory results and clinical findings. Performed By: #### P T, PTT, BMP, HFP, LD6, WSR, SEPG, MPASRM, KLFRS ####[facility], [place] [phone] Lambda, Free, Serum 12.3 mg/L Normal 5.7-26.3 [facility] Comment on above: Result Comment: Rare ly, increased serum free light chains values may not be detected due to antigen excess phenomenon. Results should always be correlated with other laboratory results and clinical findings. Performed By: #### P T, PTT, BMP, HFP, LD6, WSR, SEPG, MPASRM, KLFRS ####[facility], [place] [phone] LDon 10-06-2017 LD 141 U/L Normal 135-214 [facility] Comment on above: Performed By: #### P T, PTT, BMP, HFP, LD6, WSR, SEPG, MPASRM, KLFRS ####[place] [id number], [place] [phone] Monoclonl Protein,Blon 10-06 MPA Interpretation SEE COMMENT Normal [facility] Comment on above: Result Comment: Atyp ical restricted bands are present in the IgG and lambda regions. Consistent with IgG lambda monoclonal gammopathy. Performed By: #### P T, PTT, BMP, HFP, LD6, WSR, SEPG, MPASRM, KLFRS ####[place] [phone] [place] [phone] MPA Parminder/Milner Ratio 2.12 Normal 1-3 [facility] Comment on above: Performed By: #### P T, PTT, BMP, HFP, LD6, WSR, SEPG, MPASRM, KLFRS ####[place] [phone] [place] [phone] MPA Result M protein is present. Critically abnormal No M protein is identified. [facility] Comment on above: Performed By: #### P T, PTT, BMP, HFP, LD6, WSR, SEPG, MPASRM, KLFRS ####[address]CSav[address] [phone] MPA Serum IgA 130 mg/dL Normal 78-391 [facility] [facility] Comment on above: Performed By: #### P T, PTT, BMP, HFP, LD6, WSR, SEPG, MPASRM, KLFRS ####[place] [address] [address]CS[address] [place] [phone] MPA Serum IgG 1450 mg/dL High 717-1411 [facility] Comment on above: Performed By: #### P T, PTT, BMP, HFP, LD6, WSR, SEPG, MPASRM, KLFRS ####[place] [address] [address]CSav[address] [place] [phone] MPA Serum IgM 123 mg/dL Normal 53-334 [facility] Comment on above: Performed By: #### P T, PTT, BMP, HFP, LD6, WSR, SEPG, MPASRM, KLFRS ####[place] [address] [address]CS[address] [place] [phone] Serum Brandon 1260 mg/dL Normal 534-1267 [facility] Comment on above: Performed By: #### P T, PTT, BMP, HFP, LD6, WSR, SEPG, MPASRM, KLFRS ####[place] [address] [address] AveClevelMarcia Ville [phone] Serum Lambda 595 mg/dL Normal 253-653 [facility] Comment on above: Performed By: #### P T, PTT, BMP, HFP, LD6, WSR, SEPG, MPASRM, KLFRS ####[place] [id number] AveCSavannah [place]ille [phone] Staff Review Reviewed by Delores Means MD ([id number]) [facility] Comment on above: Performed By: #### P T, PTT, BMP, HFP, LD6, WSR, SEPG, MPASRM, KLFRS ####[phone] Protein Electrophor.on 10-06 Albumin 3.93 g/dL Normal 3.37-4.23 [facility] Comment on above: Performed By: #### P T, PTT, BMP, HFP, LD6, WSR, SEPG, MPASRM, KLFRS ####[place] [address] [address] [place] [phone] Alpha 1 Globulin 0.16 gm/dL Low 0.18-0.31 [facility] Comment on above: Performed By: #### P T, PTT, BMP, HFP, LD6, WSR, SEPG, MPASRM, KLFRS ####[address]CSavannah [address]ille [phone] Alpha 2 Globulin 0.80 gm/dL Normal 0.52-0.97 [facility] Comment on above: Performed By: #### P T, PTT, BMP, HFP, LD6, WSR, SEPG, MPASRM, KLFRS ####[place] [address] AveCS[address] [place] [phone] Beta Globulin 1.11 gm/dL Normal 0.84-1.36 [facility] Comment on above: Performed By: #### P T, PTT, BMP, HFP, LD6, WSR, SEPG, MPASRM, KLFRS ####[address], [place] [phone] Gamma Globulin 1.49 gm/dL High 0.70-1.44 [facility] Comment on above: Performed By: #### P T, PTT, BMP, HFP, LD6, WSR, SEPG, MPASRM, KLFRS ####[address] [phone] Interpretation SEE COMMENT Normal [facility] Comment on above: Result Comment: An M protein is identified on protein electrophoresis.See separate immunofixation report for characterization of the M protein.M protein is present on the background of a polyclonal immunoglobulin population. Quantitation of the M protein may overestimate the amount of M protein present. Performed By: #### P T, PTT, BMP, HFP, LD6, WSR, SEPG, MPASRM, KLFRS ####[address] [phone] M Protein Location Gamma fraction Normal [facility] Comment on above: Performed By: #### P T, PTT, BMP, HFP, LD6, WSR, SEPG, MPASRM, KLFRS ####[address] [phone] M Ja Concentratn 0.18 gm/dL High 0.00 [facility] Comment on above: Performed By: #### P T, PTT, BMP, HFP, LD6, WSR, SEPG, MPASRM, KLFRS ####[address], [place] [phone] SPE Staff Review Reviewed by Delores Means MD ([id number]) [facility] Comment on above: Performed By: #### P T, PTT, BMP, HFP, LD6, WSR, SEPG, MPASRM, KLFRS ####[address] [phone] Total Protein, SPE 7.5 g/dL Normal 6.0-8.4 [facility] Comment on above: Performed By: #### P T, PTT, BMP, HFP, LD6, WSR, SEPG, MPASRM, KLFRS ####[facility] [place], [place] [phone] Protimeon 10-06-2017 INR Coag RelTime (Bld) 1.0 {INR} Normal 0.9-1.3 [facility] Comment on above: Result Comment: Muna min K Antagonist (VKA) Therapeutic Range: INR 2 to 3 (Target INR of 2.5)Note: For patients treated with VKA drugs, such as warfarin, the [place] [employer] 2012 Guideline recommends a therapeutic INR range of 2 to 3 (target INR of 2.5). This recommendation includes high-risk patients with antiphospholipid syndrome with previous arterial or venous thromboembolism, current-generation mechanical or bioprosthetic aortic heart valve replacement.Note: Patients with mechanical aortic valve replacement and additional risk factors for thromboembolic events (atrial fibrillation, previous thromboembolism, LV dysfunction, hypercoagulable conditions) or an older generation mechanical AVR (i.e., ball in-Cage) or any mechanical MVR should have a INR therapeutic range of 2.5 to 3.5 (target INR of 3).Sunita GH, et al. Chest 2012, 141:7S-47SNishhenok RA, et al. [facility] 2017, 70: 252-289 Performed By: #### P T, PTT, BMP, HFP, LD6, WSR, SEPG, MPASRM, KLFRS ####[facility] [place], [place] [phone] Performed By: #### V WFPN ####[address] [phone] PT Sec 10.3 sec Normal 9.7-13.0 [facility] Comment on above: Performed By: #### P T, PTT, BMP, HFP, LD6, WSR, SEPG, MPASRM, KLFRS ####[place] [address] [place], [place] [phone] Performed By: #### V WFPN ####[place] [address] [address]CS[address] [place] [phone] Remote CBCDIF (for [facility] use o nly)on 10-06-2017 Abs Baso 0.12 k/uL High <0.11 [facility] Comment on above: Performed By: #### R CBCDF ####[place] [address] [address]CS[address] [place] [phone] Abs [place] 0.85 k/uL Normal <0.87 [facility] Comment on above: Performed By: #### R CBCDF ####[place] [address] [address]James [place] [phone] Abs Neut 9.52 k/uL High 1.45-7.50 [facility] Comment on above: Performed By: #### R CBCDF ####[place] [address] [address] [place] [phone] Basophils/100 WBC Auto (Bld) 0.9 % Normal [facility] Comment on above: Performed By: #### R CBCDF ####[place] [address] [address] [place] [phone] DTYPE Auto Diff Normal [facility] Comment on above: Performed By: #### R CBCDF ####[place] [address] [address] [place] [phone] Eosinophils 0.12 10*3/uL Normal <0.46 [facility] Comment on above: Performed By: #### R CBCDF ####[place] [address] [address] [place] [phone] Eosinophils/100 leukocytes 0.9 % Normal [facility] Comment on above: Performed By: #### R CBCDF ####[place] [address] [address] [place] [phone] Erythrocyte distribution width Auto Ratio (RBC) 13.8 % Normal 11.5-15.0 [facility] Comment on above: Performed By: #### R CBCDF ####[place] [address] [address] AvPjGlen, [place] [phone] Erythrocytes (RBC) 10*6/uL Normal <0.01 [facility] Comment on above: Performed By: #### R CBCDF ####[place] [address] [address]CG[address], [place] [phone] Erythrocytes (RBC) 0.0 /100 WBC Normal 0 [facility] Comment on above: Performed By: #### R CBCDF ####[place] [address] [address], [place] [phone] Erythrocytes (RBC) 4.46 10*6/uL Normal 3.90-5.20 [facility] Comment on above: Performed By: #### R CBCDF ####[place] [address] [address], [place] [phone] Hematocrit (HCT) 37.7 % Normal 36.0-46.0 [facility] Comment on above: Performed By: #### R CBCDF ####[place] [address] [place], [place] [phone] Hemoglobin mass conc (Bld) 12.6 g/dL Normal 11.5-15.5 [facility] Comment on above: Performed By: #### R CBCDF ####[place] [address] [address]PjG[address], [place] [phone] Lymphocytes 2.67 10*3/uL Normal 1.00-4.00 [facility] Comment on above: Performed By: #### R CBCDF ####[place] [address] [address], [place] [phone] Lymphocytes/100 leukocytes 20.1 % Normal [facility] Comment on above: Performed By: #### R CBCDF ####[place] [address] [address], [place] [phone] MCH 28.3 pG Normal 26.0-34.0 [facility] Comment on above: Performed By: #### R CBCDF ####[place] [address] Stringerlirobert SeguraGlen, [place] [phone] MCHC mass conc (RBC) 33.4 g/dL Normal 30.5-36.0 [facility] Comment on above: Performed By: #### R CBCDF ####[place] [address] [address], [place] [phone] MCV 84.5 fL Normal 80.0-100.0 [facility] Comment on above: Performed By: #### R CBCDF ####[place] [address] [address], [place] [phone] Monocytes/100 leukocytes 6.4 % Normal [facility] Comment on above: Performed By: #### R CBCDF ####[place] [address] [address], [place] [phone] Neutrophils/100 WBC Auto (Bld) 71.7 % Normal [facility] Comment on above: Performed By: #### R CBCDF ####[place] [address] [address], [place] [phone] Platelet mean volume (PMV) 10.0 fL Normal 9.0-12.7 [facility] Comment on above: Performed By: #### R CBCDF ####[place] [address] [address], [place] [phone] Platelets 434 10*3/uL High 150-400 [facility] Comment on above: Performed By: #### R CBCDF ####[place] [address] [address]CGlen, [place] [phone] WBC (Leukocytes) 13.28 10*3/uL High 3.70-11.00 [facility] Comment on above: Performed By: #### R CBCDF ####[place] [address] [address], [place] [phone] Sed Rate Westergrenon 2017 Sed Rate Westergren 27 mm/hr High 0-20 [facility] Comment on above: Performed By: #### P T, PTT, BMP, HFP, LD6, WSR, SEPG, MPASRM, KLFRS ####[address] [phone] von Willebrand Diagon 2017 aPTT 26.7 s Normal 23.0-32.4 [facility] Comment on above: Result Comment: Unfr actionated Heparin Therapeutic Ranges:Standard Heparin Nomogram: 53 to 78 seconds (anti-Xa level of 0.3 to 0.7 U/ml)Low Dose/ACS Nomogram: 49 to 67 seconds (anti-Xa level of 0.2 to 0.5 U/ml)Stroke Treatment Nomogram: 49 to 67 seconds (anti-Xa level of 0.2 to 0.5 U/ml)Note: The APTT therapeutic range has been determined for the current lot of laboratory APTT reagent in use throughout the [facility]. Performed By: #### V WFPN ####[address] [phone] CBA/VWF Ratio 0.7 Normal >0.5 [facility] Comment on above: Performed By: #### V WFPN ####[address] [phone] COL/ADP Cartridge 127 CT (sec) High <118 [facility] Comment on above: Result Comment: Resu lts are reported as Closure Time (CT) in seconds. Performed By: #### V WFPN ####[address] [phone] COL/EPI Cartridge 117 CT (sec) Normal <199 [facility] Comment on above: Result Comment: Resu lts are reported as Closure Time (CT) in seconds. Performed By: #### V WFPN ####[address] [place] [phone] Collagen Binding-CBA 118 % Normal 41-161 [facility] Comment on above: Result Comment: This test uses a reagent or kit labeled by the head scorer as research use only and it is used per head scorer's instructions. Its performance characteristics were determined by [facility] [place] in a manner consistent with CLIA requirements. This test has not been cleared by the U.S. Food and Drug Administration. Performed By: #### V WFPN ####[place] [address] [place], [place] [phone] Factor VIII:C Assay 165 % Normal 50-173 [facility] Comment on above: Performed By: #### V WFPN ####[place] [address] [place], [place] [phone] FVIII/VWF Ratio 1.0 Normal >0.4 [facility] Comment on above: Performed By: #### V WFPN ####[address] [phone] Interpretation(VW) (NOTE) Normal [facility] Comment on above: Result Comment: Perf orming Pathologist: Joleen Hector M.D., Ph.D.Abnormal - see comment below.SIGNIFICANT FINDINGS:1.Abnormal platelet function screen2.Elevated ristocetin cofactor activity Laboratory testing was performed to evaluate the presence of vonWillebrand disease. Both the PT and APTT results are not elevated.PLATELET FUNCTION SCREEN: The closure time (platelet adhesion andaggregation) with the COL/EPI cartridge is normal and the closuretime with the COL/ADP cartridge is abnormal. This pattern is unusual,but suggests an abnormality of platelet function, von Willebranddisease, or an anti-platelet drug effect.VON WILLEBRAND TESTING: The ristocetin induced platelet aggregationshows a normal dose response. The von Willebrand multimer assay wasperformed by a Western Blot technique. There is a normal amount anddistribution of von Willebrand multimers. The von Willebrand factor(VWF) antigen result is normal. The collagen binding activity resultis normal. The ristocetin cofactor activity (von Willebrandfunctional assay) is elevated.SUMMARY: There is no definitive laboratory evidence for VonWillebrand Disease at this time. Increased von Willebrandfunctional activity usually indicates elevated levels of vonWillebrand factor. This may be observed in endothelial cellactivation, vasculitis, atherosclerosis, diabetes, metastaticmalignancy or after treatment with DDVAP. Von Willebrand disease isunlikely. If there is a high clinical suspicion for Von WillebrandDisease, suggest repeating the von Willebrand panel in one to twomonths, as VWF levels may fluctuate. Due to the abnormal platelet function screen, further evaluationof platelet function with the platelet aggregation assay would berecommended, especially if the patient is not receiving aspirin orother medications that can affect platelet function. Please correlate these laboratory results with clinical findingsand medication history. Performed By: #### V SABINAPN ####[address] [phone] Ristocetin Aggreg Normal dose response Normal [facility] Comment on above: Performed By: #### V WFPN ####[address] [phone] Ristocetin Co-Factor 150 % High 42-146 [facility] Comment on above: Performed By: #### V WFPN ####[address] [phone] Ristocetin/VWF Ratio 0.9 Normal >0.4 [facility] Comment on above: Performed By: #### V WFPN ####[address] [phone] von Willebrand Ag 159 % Normal 50-173 [facility] Comment on above: Performed By: #### V WFPN ####[address] [phone] von Willebrand Mult Normal multimer amou nt and pattern. Normal [facility] Comment on above: Result Comment: Revi ewed by Joleen Shore M.D.,Ph.D ([id number])This test was developed and its performance characteristics determined by [facility] [place] ([facility]).It has not been cleared or approved by the FDA. [facility] is regulated under CLIA as qualified to perform high-complexity testing.This test is used for clinical purposes. It should not be regarded as investigational or for research. Performed By: #### V PN ####[facility] [place], [place] [phone] CNOVon 09-25-2017 CNOV Office Visit (CARDFT) -------GLADIS MICHAEL ([id number]) 1975 [facility] Time Provider Department09/25/17 10:30 AM JESUS CHEATHAM During your visit today, we recorded the following information about you: Pulse Respiration Blood pressure Weight 68/minute 18/minute 139/78 108 kg Height 1.575 Rishi Cheatham MD 09/25/2017 10:54 AM [facility] Department of Cardiovascular MedicineOUTPATIENT VISIT DATE 09/25/16OUTPATIENT VISIT TYPEESTABLISHEDPRIMARY CARE PHYSICIAN:Joseph Harris DO[address] [facility] [place] [address]Khesg: [phone]: [phone] COMPLAINT:Patient presents with:Follow UpHISTORY OF PRESENT ILLNESS:Gladis Michael is a 41 year old female with a past cardiac history ofpalpitations, hypertensive episodes associated with flushing.05/22/2017The patient presents today as a new consult. The patient has previously beencared for by a auger supervisor in [place]. She has been on pindolol andlisinopril for many years. She apparently did not tolerate metoprolol in thepast. She claims that metoprolol made her heart rate go into the 200s. Thepatient states that she has episodes off and on of a flushed feeling followedby high blood pressure readings and dizziness. She also feels her heartracing. She feels this has been worse over the past 2 weeks. She has hadepisodes like this though for many years. She had a complete workup in [facility] including a cardiac CTA, pharmacologic stress, echo and monitors. Unfortunately I do not have any of those records to review. The patient wasseen in the emergency room earlier today for epistaxis. She also was seen int emergency room in [place] last Friday with a complaint of dizziness. Herworkup was negative. There was no evidence of any arrhythmia during her workuphere at this emergency room today. Her blood tests were within normal limits.Her troponin was normal. EKG was unremarkable. The patient admits that shegets very anxious. She has had problems with this for some time. Her primarycare physician has started her on Zoloft. She does complain of a chestsqueezing sensation at the end of our interview. Apparently this has beengoing on for years also. Yesterday she had several episodes of a squeezingsensation which lasts for only 5-10 seconds. This does not sound anginal.09/25/2017The patient presented today for a follow-up after a visit to the emergency roomwith epistaxis. She was deemed to have mildly elevated blood pressure and herlisinopril was increased from 2.5-5 mg daily. Her blood pressure today is139/78. The emergency room physician suggested and sent in a prescription forhydrochlorothiazide however the patient never got that medicine. She hascontinued her pindolol. She unfortunately has gained 14 pounds since her lastvisit here. She feels that was secondary to the use of Zoloft. She has sincediscontinued that medication. She is ready to start actively losing weight.She denies any other chest discomfort or unusual shortness of breath. Shedenies any palpitations, syncopal or near syncopal episodes.PAST MEDICAL HISTORYDiagnosis Date- Anxiety- Hypertension- LeukocytosisPAST SURGICAL HISTORYProcedure Laterality Date- DELIVERY ONLY , low transverse- CHOLECYSTECTOMYSocial HistorySubstance Use Topics- Smoking status: Former Smoker Packs/day: 0.50 Years: 10.00 Types: Cigarettes Quit date: 05/22/2005- Smokeless tobacco: Never Used- Alcohol use NoNo family history on file.ALLERGIES:ALLERGIESAll ergen Reactions- Toprol Xl [Metoprol* Other: See Comments ANDquot;heart racesANDquot; per patientMEDICATIONS:lisinopr il (ZESTRIL, PRINIVIL) 5 mg tablet Take by mouth once daily.pindolol (VISKEN) 5 mg tablet Take 5 mg by mouth twice daily.sertraline (ZOLOFT) 50 mg tablet Take 50 mg by mouth once daily.REVIEW OF SYSTEMS:A complete review of systems was obtained and is remarkable for that notedabove. The remaining systems are unremarkable.I personally interviewed, confirmed and edited the above information ifobtained by others.PHYSICAL EXAMINATION:BP 139/78 Pulse 68 Resp 18 Ht 157.5 cm (5' 2ANDquot;) Wt 108 kg (238 lb) SpO2 100% BMI 43.53 kg/h9Gwunxbf: Well appearing, in no acute distress.Eyes: Conjunctiva normal, sclera normalNeck: No jugular venous distention, no palpable thyromegaly.Heart: Regular rhythm, S1, S2 normal, no S3, no S4. No murmur. No carotidbruits.Respiratory: Clear to auscultation bilaterally. Good respiratory effort.GI: Soft, nontender, bowel sounds normal, no palpable hepatosplenomegalyExtremiti es: Normal pulses in distal lower extremities. Absent lower extremityedemaNeuro: Alert, cooperative with no focal deficit.Psych: Pleasant and cooperative.Skin: No rashes or wounds.CARDIOVASCULAR MEDICINE TESTING:A 48 hour Holter monitor performed on 08/28/2015 revealed an average heart rateof 68 bpm. The range was 45-126 bpm. The patient had for PVCs and 5 PACs.There were no other arrhythmias noted.A 2-D echocardiogram obtained on 07/05/2015 revealed mild concentric leftventricular hypertrophy, left ventricular ejection fraction of 65%, no evidenceof diastolic dysfunction, mild biatrial enlargement, mild mitral regurgitation,trivial tricuspid regurgitation and a right ventricular systolic pressure of 35mmHg.A 2-D echocardiogram performed on 06/12/2017 revealed mild concentric LVH, LVEF67%, trivial mitral, tricuspid and pulmonic insufficiency and a rightventricular systolic pressure of 32 mmHg.Laboratory values obtained on 09/23/2017 revealed a white count of 11.1,hemoglobin 13.5, hematocrit 40.4, platelets 404, sodium 134, potassium 3.8,chloride 102, bicarbonate 25, glucose 102, BUN 10, creatinine 0.5, GFR greaterthan 60, a LT [address] exam of the brain was unremarkable on 09/23/2017.IMPRESSION:1. Premature atrial complexes - ICD9: 427.61, ICD10: I49.1 (primary diagnosis),seen on Holter monitor in 2016.2. PVC (premature ventricular contraction) - ICD9: 427.69, ICD10: I49.3, rarePVCs on Holter monitor in 2016.3. Palpitations - ICD9: 785.1, ICD10: R00.2, feelings of palpitationsassociated with elevated blood pressure and flushed feeling, these have beenoccurring for years. Patient had negative workup in [place]. Placed onpindolol and lisinopril.4. Non-rheumatic mitral regurgitation, mild - ICD9: 424.0, ICD10: I34.05. Essential hypertension, lisinopril increased to 5 mg daily, fair controltoday.6. Morbid obesity, patient feels weight gain secondary to Zoloft, ready tostart aggressive weight loss.PLAN:Continue lisinopril at 5 mg by mouth daily. A prescription was sent in for 90tablets with 3 refills.Low-sodium diet.Low caffeine intake.Low alcohol intake.Regular aerobic activity.Weight loss.Follow-up in the office in 3-4 months or sooner if necessary. We are lookingfor a weight loss of 5-10 pounds at next visit.A copy of this note will be provided to the requesting physician by [facility] or to the requesting physician via U.S. Mail.This document was generated utilizing [employer]amp[employer]. I have reviewed andverified that the contents of the document are accurate with the exception ofminor grammatical, spelling and punctuation errors.CONTACT INFORMATION:Thank you for allowing us to participate in the care of this very pleasantpatient. Please free to contact us if we can be of any further assistance.Jesus Cheatham MD, [facility] Cardiovascular MedicineMercy Health Tiffin Hospitalrt and Vascular InstituteRiverside Methodist Hospital[address].[place], [place] [address]Qpmybg: [phone] Referring Provider: JOSEPH HARRIS [[id number]]Allergies As of Date: 09/25/2017 Noted Allergy ReactionTOPROL XL (METOPROLOL) 04/11/2016 14 - Other: See Comments Comments: heart races per patientDate Reviewed: 09/25/2017Reviewed by: Jesus Cheatham - Fully AssessedReason for Visit: Follow Up [171]Primary Visit Diagnosis:Essential hypertension [I10] Other Visit Diagnoses:Premature atrial complexes [I49.1] PVC (premature ventricular contraction) [I49.3] Obesity, Class III, BMI 40-49.9 (morbid obesity) ([facility]) [E66.01]Order(s):lisinopril (ZESTRIL, PRINIVIL) 5 mg tabletTake 1 tablet by mouth once daily.Disp: 90 tabletRfl: 3Prescriptions as of 09/25/2017 Sig: LISINOPRIL 5 MG TABLET Take 1 tablet by mouth once d* PINDOLOL 5 MG TABLET Take 5 mg by mouth twice kwasi* SERTRALINE 50 MG TABLET Take 50 mg by mouth once kwasi*Medication notes this encounter LISINOPRIL 5 MG TABLET >> Shane Velasquez RN 09/25/2017 10:15 AM >> JEROME BYRNES [facility] Sep 25, 2017 10:15 AM Received from: External Pharmacy >> Shane Velasquez RN 09/25/2017 10:16 AM >> JEROME BYRNES [facility] Sep 25, 2017 10:16 AMProblem List As Of Date 09/25/2017 Noted Resolved Lymphocytosis [D72.820] INVALID FOR* Cervical adenopathy [R59.0] INVALID FOR* Obesity, Class III, BMI >= 40 E66.01 [E66.01] INVALID FOR*Prescriptions ordered this encounter Disp Refills Start End LISINOPRIL 5 MG TABLET 90 t* 3 09/25/2017 Route: ORAL Sig: Take 1 tablet by mouth once daily.Medications Discontinued During This Encounter lisinopril 2.5 mg tablet 03/24/2016 09/25/2017 Class: Historical Med Route: ORAL Sig: Take 2.5 mg by mouth once daily. Disc: Erroneous entry lisinopril (ZESTRIL, PRINIVIL) 5 mg * 09/23/2017 09/25/2017 Class: Historical Med Route: ORAL Sig: Take by mouth once daily. Disc: Reason for discontinue is not on file. Status:Closed by NANI CHEATHAM MD on 09/25/17 [facility] PROGRESSon 09-25-2017 PROGRESS HNO ID: [id number] thor: Jesus Peetrsonervice: (none)Author Type: PhysicianType: Progress NotesFiled: 09/25/2017 10:54 AMNote Text:Heart and Vascular InstituteRobert and Mary Murray Department of Cardiovascular MedicineOUTPATIENT VISIT DATE 09/25/16OUTPATIENT VISIT TYPEESTABLISHEDPRNOVANT HEALTHRY CARE PHYSICIAN:Joseph Harirs DO[address] [facility] [place] [address]Icjhc: [phone]: [phone] COMPLAINT:Patient presents with:Follow UpHISTORY OF PRESENT ILLNESS:Gladis Michael is a 41 year old female with a past cardiac history ofpalpitations, hypertensive episodes associated with flushing.05/22/2017The patient presents today as a new consult. The patient has previouslybeen cared for by a auger supervisor in [place]. She has been on pindolol andlisinopril for many years. She apparently did not tolerate metoprolol inthe past. She claims that metoprolol made her heart rate go into [id number]. The patient states that she has episodes off and on of a flushedfeeling followed by high blood pressure readings and dizziness. She alsofeels her heart racing. She feels this has been worse over the past 2weeks. She has had episodes like this though for many years. [facility] including a cardiac CTA,pharmacologic stress, echo and monitors. Unfortunately I do not have anyof those records to review. The patient was seen in the emergency roomearlier today for epistaxis. [place] of [place]. Her workup wasnegative. There was no evidence of any arrhythmia during her workup hereat this emergency room today. Her blood tests were within normal limits.Her troponin was normal. EKG was unremarkable. The patient admits thatshe gets very anxious. She has had problems with this for some time. [facility] has started her on Zoloft. She does complain of achest squeezing sensation at the end of our interview. Apparently thishas been going on for years also. Yesterday she had several episodes of asqueezing sensation which lasts for only 5-10 seconds. This does notsound anginal.09/25/2017The patient presented today for a follow-up after a visit to the emergencyroom with epistaxis. She was deemed to have mildly elevated bloodpressure and her lisinopril was increased from 2.5-5 mg daily. Her bloodpressure today is 139/78. The emergency room physician suggested and sentin a prescription for hydrochlorothiazide however the patient never gotthat medicine. She has continued her pindolol. She unfortunately hasgained 14 pounds since her last visit here. She feels that was secondaryto the use of Zoloft. She has since discontinued that medication. She isready to start actively losing weight. She denies any other chestdiscomfort or unusual shortness of breath. She denies any palpitations,syncopal or near syncopal episodes.PAST MEDICAL HISTORYDiagnosis Date- Anxiety- Hypertension- LeukocytosisPAST SURGICAL HISTORYProcedure Laterality Date- DELIVERY ONLY , low transverse- CHOLECYSTECTOMYSocial HistorySubstance Use Topics- Smoking status: Former Smoker Packs/day: 0.50 Years: 10.00 Types: Cigarettes Quit date: 05/22/2005- Smokeless tobacco: Never Used- Alcohol use NoNo family history on file.ALLERGIES:ALLERGIESAll ergen Reactions- Toprol Xl [Metoprol* Other: See Comments heart races per patientMEDICATIONS:lisinopr il (ZESTRIL, PRINIVIL) 5 mg tablet Take by mouth once daily.pindolol (VISKEN) 5 mg tablet Take 5 mg by mouth twice daily.sertraline (ZOLOFT) 50 mg tablet Take 50 mg by mouth once daily.REVIEW OF SYSTEMS:A complete review of systems was obtained and is remarkable for that notedabove. The remaining systems are unremarkable.I personally interviewed, confirmed and edited the above information ifobtained by others.PHYSICAL EXAMINATION:BP 139/78 Pulse 68 Resp 18 Ht 157.5 cm (5' 2 ) Wt 108 kg (238 lb) SpO2 100% BMI 43.53 kg/a7Lqagugp: Well appearing, in no acute distress.Eyes: Conjunctiva normal, sclera normalNeck: No jugular venous distention, no palpable thyromegaly.Heart: Regular rhythm, S1, S2 normal, no S3, no S4. No murmur. No carotidbruits.Respiratory: Clear to auscultation bilaterally. Good respiratory effort.GI: Soft, nontender, bowel sounds normal, no palpable hepatosplenomegalyExtremiti es: Normal pulses in distal lower extremities. Absent lowerextremity edemaNeuro: Alert, cooperative with no focal deficit.Psych: Pleasant and cooperative.Skin: No rashes or wounds.CARDIOVASCULAR MEDICINE TESTING:A 48 hour Holter monitor performed on 08/28/2015 revealed an average heartrate of 68 bpm. The range was 45-126 bpm. The patient had for PVCs and 5PACs. There were no other arrhythmias noted.A 2-D echocardiogram obtained on 07/05/2015 revealed mild concentric leftventricular hypertrophy, left ventricular ejection fraction of 65%, noevidence of diastolic dysfunction, mild biatrial enlargement, mild mitralregurgitation, trivial tricuspid regurgitation and a right ventricularsystolic pressure of 35 mmHg.A 2-D echocardiogram performed on 06/12/2017 revealed mild concentric LVH,LVEF 67%, trivial mitral, tricuspid and pulmonic insufficiency and a rightventricular systolic pressure of 32 mmHg.Laboratory values obtained on 09/23/2017 revealed a white count of 11.1,hemoglobin 13.5, hematocrit 40.4, platelets 404, sodium 134, potassium3.8, chloride 102, bicarbonate 25, glucose 102, BUN 10, creatinine 0.5,GFR greater than 60, a LT [address] exam of the brain was unremarkable on 09/23/2017.IMPRESSION:1. Premature atrial complexes - ICD9: 427.61, ICD10: I49.1 (primarydiagnosis), seen on Holter monitor in 2016.2. PVC (premature ventricular contraction) - ICD9: 427.69, ICD10: I49.3,rare PVCs on Holter monitor in 2016.3. Palpitations - ICD9: 785.1, ICD10: R00.2, feelings of palpitationsassociated with elevated blood pressure and flushed feeling, these havebeen occurring for years. Patient had negative workup in [place]. Placedon pindolol and lisinopril.4. Non-rheumatic mitral regurgitation, mild - ICD9: 424.0, ICD10: I34.05. Essential hypertension, lisinopril increased to 5 mg daily, faircontrol today.6. Morbid obesity, patient feels weight gain secondary to Zoloft, readyto start aggressive weight loss.PLAN:Continue lisinopril at 5 mg by mouth daily. A prescription was sent infor 90 tablets with 3 refills.Low-sodium diet.Low caffeine intake.Low alcohol intake.Regular aerobic activity.Weight loss.Follow-up in the office in 3-4 months or sooner if necessary. We arelooking for a weight loss of 5-10 pounds at next visit.A copy of this note will be provided to the requesting physician by [facility] or to the requesting physician via U.S. Mail.This document was generated utilizing [employer] dictation. I have reviewedand verified that the contents of the document are accurate with theexception of minor grammatical, spelling and punctuation errors.CONTACT INFORMATION:Thank you for allowing us to participate in the care of this very pleasantpatient. Please free to contact us if we can be of any furtherassistance.Jesus Cheatham MD, FACCRobert and Mary MurrayDepartment of Cardiovascular MedicineMercy Health Tiffin Hospitalrt and Vascular Institute[address] [place], [place] [address]Objslr: [phone] Normal [facility] CT-CT Head or Brain w/o Cont rast IMPORTon 09-23-2017 CT-CT Head or Brain w/o Contrast IMPORT Images were obtained outside of [facility] [id number] Normal [facility] CNOVSPon 06-05-2017 [facility] Visit (SP) Office ([place]) -------GLADIS MICHAEL ([id number]) 1975 [facility] Time Provider Sajcyzessh70/28/17 3:15 PM ISAAC SHELTON During your visit today, we recorded the following information about you: Temperature Respiration Blood pressure Weight 98.7 degrees 18/minute 168/82 105.1 kg Height 1.6 Kassidy Shelton DO 06/07/2017 12:55 AM SignedPATIENT NAME: Gladis ElderRN: [id number] PHYSICIAN: Joseph Harris DO[address] [facility] [id number] CARE PHYSICIAN: Joseph Harris DOOTHER PHYSICIANS:CHIEF COMPLAINT: Lymphocytosis (primary encounter diagnosis)Cervical adenopathyASSESSMENT/PLAN:1 . LymphocytosisAbsolute lymphocytosis - BCR ABL and flow cytometry negative in April 2016.Paraprotein evaluation reveals slight IgG Level M spike quantitative is 0.16.No other diagnostic abnormalities. 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 For extreme low level of Mprotein and the immunofixation report which states that the bands are ratherfaint, we will continue to monitor onlyJak 2 was negative in January 2017. Peripheral flow cytometry and BCR ABL PCRwas negative in April 2016.CT of the chest abdomen and pelvis in March 2017 did not show any areas ofobvious neoplasm.Ea r nose and throat evaluation likely from clinic main campus physician . We will continue to monitor her only. She will repeat imaging inDecember. She'll also make an appointment with her primary care provider.LDH and sedimentation rate within normal limits.(D72.820) Lymphocytosis (primary encounter diagnosis)(R59.0) Cervical adenopathyNo orders found for this visit on 06/05/17. No Follow-up on file. 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. Pastmedical history heart palpitations, hypertension, trace mitral regurgitation,ovarian cysts, anxiety, chronic lymphocytosis. Lisinopril 2.5 mg tablet,pindolol 5 mg 1 by mouth twice a day. We follow her for chronic leukocytosis and mild thrombocytosis. no clearpathologic diagnosis has been made. She was essentially asymptomatic atdiagnosis in mid to late 2015. Rodrick 2 was negative in January 2017. Peripheralflow cytometry and BCR ABL PCR was negative in April 2016.Former smokerPrevious CBC from January 2016 showed white blood cell count of 12.3 withelevated platelets of 482,000 and a normal hemoglobin with normal MCV of 85.9.Neutrophil percentage was 67% leaving an absolute neutrophil count of 8300.Recently had some chronic fatigue, nausea, lightheadedness, headaches.Laboratory from January 2016 was reviewed revealed normal liver and kidneyfunction, normal total protein and albumin, normal hemoglobin 13.4, normalkidney function, normal TSH.Family History.Mother has Jak2 positive essential thrombocytosis/polycythemia .Her sisters had similar disease.March 13, 2017 Feb 24 she went to her PCP for Ear and throat pain. She had ANDquot;puspocketsANDquot; in her throat. She was given augmentin by Dr. Jose. Fever for5 days straight. Went to ER 02/26. [place] was negative, strep negative. Flunegative. She was placed on Azithromycin. Still not improving 03/02 went backto ER. She was vomiting and nausea with persistent fevers to 102. He put jennifer IV antiobiotic and sent script for Levaquin. She went back to ER 03/09/17.Again no obvious source of fevers. WBC 21K apparently.She hasnt had a fever since 03/07/17. She cant stand up without getting nausea,dizzy. She has severe sweats in the morning when she gets up get her daystarted. No night sweats. Apparently CXRs have been negative. She is snoringa lot. She never had any sinus complaints. Feels right side of her neck isswollen. Lost 12 lbs.April 07, 2017 she is doing overall better. Still with throat soreness. Still coughing,overall worse, especially at night. No longer on an antibiotic. No morefevers about 3 wks. Nausea about same. Doesn't take nausea med. She pukedlast night after a coughing spell. Sinues are still good. Sweats improved.Energy improved. Dizzy improved but still perists after working 4 or 5 hours.Sees ENT on . Robert HERNANDEZ.April 28, 2017 still complains of constant cough, sore throat and loses her voice at times.No fevers. No short of breath. Dizzy seems better. Still nausea comes andgoes. Still with general sore throat. Overall greatly improved. Saw earnose and throat physician Dr. HERNANDEZ and decided to monitor her only for now as shehas no large palpable obvious adenopathy or lesions on nasopharyngoscopy.Results CT of the chest abdomen pelvis and neck from March [address] of the neck showed mildly enlarged right greater than leftlevel IIA lymphadenopathy with prominence of the nasopharynx and bilateralpalatetine tonsillar region. No mass. Focal groundglass opacities in theright upper lobe, no significant adenopathy. Borderline splenomegaly, fattyliver, low-attenuation area in the left hepatic lobe adjacent to the falciformligament which was of unclear etiology. Cysts in bilateral adnexa.June 05, 2017 she has been seeing dr cheatham for flushing and racing heart and elevated BP.She previously saw auger supervisor in [place].She is scheduled for echo. She has val[place]. Cough, sore throat better now. Dizzy nowoccasionally. She fell a month ago out of bed and she had CT head.Vitals: BP 168/82 Temp (Src) 98.7 (Oral) Resp 18 Ht 5' 2.992ANDquot;(1.60m) Wt 231 lb 9.6 oz (105.1kg) BMI 41.04 kg/(m2). Body surface area is2.16 meters squared. REVIEW OF SYSTEMS PHYSICAL EXAM ECOG PS: 0 NEGATIVES POSITIVES NEGATIVES POSITIVESGEN: fevers, sweats, chills. Overall feels well. continued doing withoccasional intermittent dizziness. well appearing slightly overweightSKIN: lesions, rash, itching. SKIN: Normal color, texture, turgor, no rashesor lesionsHEENT: significant headaches, changes in hearing, changes in vision, nosebleeds. ENT: No scleral icterus. continued mild submandibularadenopathy. Borderline larger than normal. NECK: Supple, no thyromegaly, no JVD.: dysuria, frequency or incontinence. LYMPH: No cervical, supraclavicular,axillary, inguinal adenopathy.RESP: dyspnea, wheezing. still with cough. LUNG: Clear to auscultation, nowheezing rales or rhonchiCARD: chest pain, leg swelling, palpitations. now with significant heartpalpitations and describes as racing heart. HEART: Regular. No murmurs,gallop, or rubs. No ectopy.GI: abdominal pain, diarrhea, constipation, melena, hematochezia.continued nausea. ABDM: Soft. Non-tender. Non-distended. Bowel soundsnormal. No masses. No hepatosplenomegaly.HEME: prolonged bleeding, bruising, adenopathy. EXT: No clubbing, cyanosisor edema.MUSC: joint pain or swelling. MUSC: No joint swelling, deformity, ortenderness.NEURO: syncope, seizures, peripheral numbness or tingling. BACK: Notenderness to palpation. No flank tenderness.MEDICATIONS:pind olol (VISKEN) 5 mg tablet Take 5 mg by mouth twice daily.sertraline (ZOLOFT) 50 mg tablet Take 50 mg by mouth once daily.lisinopril 2.5 mg tablet Take 2.5 mg by mouth once daily.ALLERGIES:ALLERGIESAl lergen Reactions- Toprol Xl [Metoprol* Other: See Comments ANDquot;heart racesANDquot; per patientPAST MEDICAL HISTORYDiagnosis Date- Anxiety- Hypertension- LeukocytosisPAST SURGICAL HISTORYProcedure Laterality Date- DELIVERY ONLY , low transverse- CHOLECYSTECTOMYNo family history on file.SOCIAL HISTORY:Social HistorySubstance Use Topics- Smoking status: Former Smoker Packs/day: 0.50 Years: 10.00 Types: Cigarettes Quit date: 05/22/2005- Smokeless tobacco: Never Used- Alcohol use NoLABS:RADIOLOGY/OTHER STUDIES:COUNSELING:I discussed with Gladis the natural history, treated course, and prognosisof Lymphocytosis (primary encounter diagnosis)Cervical adenopathy; my impression as well as the rationale, logistics, risks,benefits, and alternatives to the management options noted above; and myrecommendations listed below. The patient Gladis Michael verbalizedunderstanding and agreed with these recommendations and plan. I answered allquestions satisfactorily..Hai Shelton D.O.Medical OncologistMarquette, [place]Referring Provider: ISAAC SHELTON [[id number]]Allergies As of Date: 06/05/2017 Noted Allergy ReactionTOPROL XL (METOPROLOL) 04/11/2016 14 - Other: See Comments Comments: heart races per patientDate Reviewed: 06/05/2017Reviewed by: Donna Stahl - Fully AssessedReason for Visit: Lymphocytosis [Other] Cmt: 5 week follow upPrimary Visit Diagnosis:Lymphocytosis [D72.820] Other Visit Diagnosis:Cervical adenopathy [R59.0]Order(s):HIV 1,2 COMBO (AG/AB) [SQHIV12] Order #: [id number] FUTUREDisposition: Return in about 1 year (around 06/05/2018), or cancel ENT f/u in [place]..Follow-up and Disposition History RecordedPrescriptions as of 06/05/2017 Sig: PINDOLOL 5 MG TABLET Take 5 mg by mouth twice kwasi* SERTRALINE 50 MG TABLET Take 50 mg by mouth once kwasi* LISINOPRIL 2.5 MG TABLET Take 2.5 mg by mouth once buck*Problem List As Of Date 06/05/2017 Noted Resolved Lymphocytosis [D72.820] INVALID FOR* Cervical adenopathy [R59.0] INVALID FOR*Encounter Status:Closed by ISAAC SHELTON DO on 06/07/17 Normal [facility] HIV 12 Combo (Ag/Ab)on 06-05 HIV 12 Ag/Ab Non Reactive Normal Non Reactive [facility] Comment on above: Result Comment: (NOT E)HIV Information: [place] Rev. Code 3701.243(E):This information has been disclosed to you from confidential recordsprotected from disclosure by state law. You shall make no furtherdisclosure of this information without the specific, written, andinformed release of the individual to whom it pertains, or asotherwise permitted by state law. A general authorization for therelease of medical or other information is not sufficient for thepurpose of the release of HIV test results or diagnoses. Performed By: #### H IV12C ####[facility] [address] [place], [place] [id number] PROGRESSon 06-05-2017 PROGRESS HNO ID: [id number] thor: Isaac Carrasco: (none)Author Type: PhysicianType: Progress NotesFiled: 06/07/2017 12:55 AMNote Text:PATIENT NAME: Gladis DamianjavierarMRN: [id number] PHYSICIAN: [place] [address]FRGMABZ CARE PHYSICIAN: MASOOD Rubin PHYSICIANS:CHIEF COMPLAINT: Lymphocytosis (primary encounter diagnosis)Cervical adenopathyASSESSMENT/PLAN:1 . LymphocytosisAbsolute lymphocytosis - BCR ABL and flow cytometry negative in April2016. Paraprotein evaluation reveals slight IgG Level M spikequantitative is 0.16. No other diagnostic abnormalities. At this pointwe are considering this a monoclonal gammopathy of undeterminedsignificance. For extreme low level of M protein and the immunofixationreport which states that the bands are rather faint, we will continue tomonitor onlyJak 2 was negative in January 2017. Peripheral flow cytometry and BCR ABLPCR was negative in April 2016.CT of the chest abdomen and pelvis in March 2017 did not show any areasof obvious neoplasm.Ea r nose and throat evaluation likely from clinic main campus physicianDr. HERNANDEZ. We will continue to monitor her only. She will repeat imaging inDecember. She'll also make an appointment with her primary care provider.LDH and sedimentation rate within normal limits.(D72.820) Lymphocytosis (primary encounter diagnosis)(R59.0) Cervical adenopathyNo orders found for this visit on 06/05/17. No Follow-up on file. 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. Pastmedical history heart palpitations, hypertension, trace mitralregurgitation, ovarian cysts, anxiety, chronic lymphocytosis.Lisinopril 2.5 mg tablet, pindolol 5 mg 1 by mouth twice a day. We follow her for chronic leukocytosis and mild thrombocytosis. no clearpathologic diagnosis has been made. She was essentially asymptomatic atdiagnosis in mid to late 2015. Rodrick 2 was negative in January 2017.Peripheral flow cytometry and BCR ABL PCR was negative in April 2016.Former smokerPrevious CBC from January 2016 showed white blood cell count of 12.3 withelevated platelets of 482,000 and a normal hemoglobin with normal MCV of85.9. Neutrophil percentage was 67% leaving an absolute neutrophil countof 8300.Recently had some chronic fatigue, nausea, lightheadedness, headaches.Laboratory from January 2016 was reviewed revealed normal liver and kidneyfunction, normal total protein and albumin, normal hemoglobin 13.4, normalkidney function, normal TSH.Family History.Mother has Jak2 positive essential thrombocytosis/polycythemia .Her sisters had similar disease.March 13, 2017 Feb 24 she went to her PCP for Ear and throat pain. She had puspockets in her throat. She was given augmentin by Dr. Jose. Fever for5 days straight. Went to ER 02/26. [place] was negative, strep negative.Flu negative. She was placed on Azithromycin. Still not improving 03/02went back to ER. She was vomiting and nausea with persistent fevers to102. He put her on IV antiobiotic and sent script for Levaquin. She wentback to ER 03/09/17. Again no obvious source of fevers. WBC 21Kapparently.She hasnt had a fever since 03/07/17. She cant stand up without gettingnausea, dizzy. She has severe sweats in the morning when she gets up gether day started. No night sweats. Apparently CXRs have been negative.She is snoring a lot. She never had any sinus complaints. Feels rightside of her neck is swollen. Lost 12 lbs.April 07, 2017 she is doing overall better. Still with throat soreness. Still coughing,overall worse, especially at night. No longer on an antibiotic. No morefevers about 3 wks. Nausea about same. Doesn't take nausea med. Shepuked last night after a coughing spell. Sinues are still good. Sweatsimproved. Energy improved. Dizzy improved but still perists afterworking 4 or 5 hours. Sees ENT on . Robert HERNANDEZ.April 28, 2017 still complains of constant cough, sore throat and loses her voice attimes. No fevers. No short of breath. Dizzy seems better. Still nauseacomes and goes. Still with general sore throat. Overall greatlyimproved. Saw ear nose and throat physician Dr. HERNANDEZ and decided to monitorher only for now as she has no large palpable obvious adenopathy orlesions on nasopharyngoscopy. Results CT of the chest abdomen pelvis andneck from March 2017 of this were unrevealing. CT of the neck showedmildly enlarged right greater than left level IIA lymphadenopathy withprominence of the nasopharynx and bilateral palatetine tonsillar region.No mass. Focal groundglass opacities in the right upper lobe, nosignificant adenopathy. Borderline splenomegaly, fatty liver,low-attenuation area in the left hepatic lobe adjacent to the falciformligament which was of unclear etiology. Cysts in bilateral adnexa.June 05, 2017 she has been seeing dr cheatham for flushing and racing heart and elevatedBP.She previously saw auger supervisor in [place].She is scheduled for echo. She has valvular issues and was getting themyearly in [place] to moving here. Cough, sore throat better now.Dizzy now occasionally. She fell a month ago out of bed and she had CThead.Vitals: BP 168/82 Temp (Src) 98.7 (Oral) Resp 18 Ht 5' 2.992 (1.60m) Wt 231 lb 9.6 oz (105.1kg) BMI 41.04 kg/(m2). Body surfacearea is 2.16 meters squared. REVIEW OF SYSTEMS PHYSICAL EXAM ECOG PS: 0 NEGATIVES POSITIVES NEGATIVES POSITIVESGEN: fevers, sweats, chills. Overall feels well. continued doing withoccasional intermittent dizziness. well appearing slightlyoverweightSKIN: lesions, rash, itching. SKIN: Normal color, texture, turgor, norashes or lesionsHEENT: significant headaches, changes in hearing, changes in vision, nosebleeds. ENT: No scleral icterus. continued mild submandibularadenopathy. Borderline larger than normal. NECK: Supple, no thyromegaly, no JVD.: dysuria, frequency or incontinence. LYMPH: No cervical,supraclavicular, axillary, inguinal adenopathy.RESP: dyspnea, wheezing. still with cough. LUNG: Clear to auscultation,no wheezing rales or rhonchiCARD: chest pain, leg swelling, palpitations. now with significantheart palpitations and describes as racing heart. HEART: Regular. Nomurmurs, gallop, or rubs. No ectopy.GI: abdominal pain, diarrhea, constipation, melena, hematochezia.continued nausea. ABDM: Soft. Non-tender. Non-distended. Bowel soundsnormal. No masses. No hepatosplenomegaly.HEME: prolonged bleeding, bruising, adenopathy. EXT: No clubbing,cyanosis or edema.MUSC: joint pain or swelling. MUSC: No joint swelling, deformity, ortenderness.NEURO: syncope, seizures, peripheral numbness or tingling. BACK: Notenderness to palpation. No flank tenderness.MEDICATIONS:pind olol (VISKEN) 5 mg tablet Take 5 mg by mouth twice daily.sertraline (ZOLOFT) 50 mg tablet Take 50 mg by mouth once daily.lisinopril 2.5 mg tablet Take 2.5 mg by mouth once daily.ALLERGIES:ALLERGIESAl lergen Reactions- Toprol Xl [Metoprol* Other: See Comments heart races per patientPAST MEDICAL HISTORYDiagnosis Date- Anxiety- Hypertension- LeukocytosisPAST SURGICAL HISTORYProcedure Laterality Date- DELIVERY ONLY , low transverse- CHOLECYSTECTOMYNo family history on file.SOCIAL HISTORY:Social HistorySubstance Use Topics- Smoking status: Former Smoker Packs/day: 0.50 Years: 10.00 Types: Cigarettes Quit date: 05/22/2005- Smokeless tobacco: Never Used- Alcohol use NoLABS:RADIOLOGY/OTHER STUDIES:COUNSELING:I discussed with Gladis the natural history, treated course, andprognosis of Lymphocytosis (primary encounter diagnosis)Cervical adenopathy; my impression as well as the rationale, logistics,risks, benefits, and alternatives to the management options noted above;and my recommendations listed below. The patient Gladis Michaelverbalized understanding and agreed with these recommendations and plan.I answered all questions satisfactorily..Hai Shelton D.O.Medical OncologistMarquette, [place] Normal [facility] Remote Abs Gran + CBC (for F HC use only)on 06-05-2017 Absol Gran Count 10.28 k/uL High 1.45-7.50 [facility] Erythrocyte distribution width Auto Ratio (RBC) 13.9 % Normal 11.5-15.0 [facility] Erythrocytes (RBC) 4.91 10*6/uL Normal 3.90-5.20 [facility] Hematocrit (HCT) 39.7 % Normal 36.0-46.0 [facility] Hemoglobin mass conc (Bld) 13.2 g/dL Normal 11.5-15.5 [facility] MCH 26.9 pG Normal 26.0-34.0 [facility] MCHC mass conc (RBC) 33.2 g/dL Normal 30.5-36.0 [facility] MCV 80.9 fL Normal 80.0-100.0 [facility] Platelet mean volume (PMV) 9.5 fL Normal 9.0-12.7 [facility] Platelets 497 10*3/uL High 150-400 [facility] WBC (Leukocytes) 14.20 10*3/uL High 3.70-11.00 [facility] CNOVon 05-22-2017 CNOV Office Visit (CARDFT) -------GLADIS MICHAEL ([id number]) 1975 [facility] Time Provider Hskzcmnmhs53/14/17 2:00 PM JESUS CHEATHAM During your visit today, we recorded the following information about you: Pulse Respiration Blood pressure Weight 69/minute 18/minute 139/77 101.6 kg Height 1.6 Rishi Cheatham MD 05/22/2017 3:15 PM [facility]Rob[facility] Department of Cardiovascular MedicineOUTPATIENT VISIT DATE 05/22/17OUTPATIENT VISIT TYPENEWPRNOR[facility] CARE PHYSICIAN:[place] [address]Dabbi: [phone]: [phone] COMPLAINT:Patient presents with:PalpitationsHISTORY OF PRESENT ILLNESS:Gladis Michael is a 41 year old female with a past cardiac history ofpalpitations, hypertensive episodes associated with flushing.The patient presents today as a new consult. The patient has previously beencared for by a auger supervisor in [place]. She has been on pindolol andlisinopril for many years. She apparently did not tolerate metoprolol in thepast. She claims that metoprolol made her heart rate go into the 200s. Thepatient states that she has episodes off and on of a flushed feeling followedby high blood pressure readings and dizziness. She also feels her heartracing. She feels this has been worse over the past 2 weeks. She has hadepisodes like this though for many years. She had a complete workup in [facility] including a cardiac CTA, pharmacologic stress, echo and monitors. Unfortunately I do not have any of those records to review. The patient wasseen in the emergency room earlier today for epistaxis. She also was seen int emergency room in [place] last Friday with a complaint of dizziness. Herworkup was negative. There was no evidence of any arrhythmia during her workuphere at this emergency room today. Her blood tests were within normal limits.Her troponin was normal. EKG was unremarkable. The patient admits that shegets very anxious. She has had problems with this for some time. Her primarycare physician has started her on Zoloft. She does complain of a chestsqueezing sensation at the end of our interview. Apparently this has beengoing on for years also. Yesterday she had several episodes of a squeezingsensation which lasts for only 5-10 seconds. This does not sound anginal.PAST MEDICAL HISTORYDiagnosis Date- Anxiety- Hypertension- LeukocytosisPAST SURGICAL HISTORYProcedure Laterality Date- DELIVERY ONLY , low transverse- CHOLECYSTECTOMYSocial HistorySubstance Use Topics- Smoking status: Former Smoker Packs/day: 0.50 Years: 10.00 Types: Cigarettes Quit date: 05/22/2005- Smokeless tobacco: Never Used- Alcohol use NoNo family history on file.ALLERGIES:ALLERGIESAll ergen Reactions- Toprol Xl [Metoprol* Other: See Comments ANDquot;heart racesANDquot; per patientMEDICATIONS:pindolol (VISKEN) 5 mg tablet Take 5 mg by mouth twice daily.sertraline (ZOLOFT) 50 mg tablet Take 50 mg by mouth once daily.lisinopril 2.5 mg tablet Take 2.5 mg by mouth once daily.iv contrast (radiology procedure) CT Chest W -Inject, intravenously, once for 1dose.No IV access, insert saline lock prior to the beginning of sedation,infusion, injection of imaging exam. Discontinue saline lock post exam. If Pt.has a central line or IVAD, may access for administration according to linespecific nursing protocol. Once exam is complete flush line and de-accessaccording to line specific nursing protocol in the CT contrast administrationguidelines link.REVIEW OF SYSTEMS:A complete review of systems was obtained and is remarkable for that notedabove. The remaining systems are unremarkable.I personally interviewed, confirmed and edited the above information ifobtained by others.PHYSICAL EXAMINATION:BP 139/77 Pulse 69 Resp 18 Ht 160 cm (5' 3ANDquot;) Wt 101.6 kg (224 lb) SpO2 98% BMI 39.68 kg/p6Aygptux: Well appearing, in no acute distress.Eyes: Conjunctiva normal, sclera normalNeck: No jugular venous distention, no palpable thyromegaly.Heart: Regular rhythm, S1, S2 normal, no S3, no S4. No murmur. No carotidbruits.Respiratory: Clear to auscultation bilaterally. Good respiratory effort.GI: Soft, nontender, bowel sounds normal, no palpable hepatosplenomegalyExtremiti es: Normal pulses in distal lower extremities. Absent lower extremityedemaNeuro: Alert, cooperative with no focal deficit.Psych: Pleasant and cooperative.Skin: No rashes or wounds.CARDIOVASCULAR MEDICINE TESTING:A 48 hour Holter monitor performed on 08/28/2015 revealed an average heart rateof 68 bpm. The range was 45-126 bpm. The patient had for PVCs and 5 PACs.There were no other arrhythmias noted.A 2-D echocardiogram obtained on 07/05/2015 revealed mild concentric leftventricular hypertrophy, left ventricular ejection fraction of 65%, no evidenceof diastolic dysfunction, mild biatrial enlargement, mild mitral regurgitation,trivial tricuspid regurgitation and a right ventricular systolic pressure of 35mmHg.IMPRESSION:1. Premature atrial complexes - ICD9: 427.61, ICD10: I49.1 (primary diagnosis),seen on Holter monitor in 2016.2. PVC (premature ventricular contraction) - ICD9: 427.69, ICD10: I49.3, rarePVCs on Holter monitor in 2016.3. Palpitations - ICD9: 785.1, ICD10: R00.2, feelings of palpitationsassociated with elevated blood pressure and flushed feeling, these have beenoccurring for years. Patient had negative workup in [place]. Placed onpindolol and lisinopril.4. Non-rheumatic mitral regurgitation, mild - ICD9: 424.0, ICD10: I34.0PLAN:2-D echocardiogram.Low caffeine intake.Low alcohol intake.Regular aerobic activity.No change in medical therapy at this time.We will contact the patient with the results of the echocardiogram and makefurther recommendations at that time.Return to the office in 6 months or sooner if necessary.A copy of this consultation note will be provided to the requesting physicianby way of shared medical record or to the requesting physician via U.S. Mail.This document was generated utilizing [employer]. I have reviewed andverified that the contents of the document are accurate with the exception ofminor grammatical, spelling and punctuation errors.CONTACT INFORMATION:Thank you for allowing us to participate in the care of this very pleasantpatient. Please free to contact us if we can be of any further assistance.Jesus Cheatham MD, [facility] and [facility] MurrayMulticare Healthment of Cardiovascular MedicineMercy Health Tiffin Hospitalrt and Vascular InstituteKaren Ville [address] [place], [place] [address]Ofuyyb: [phone] Referring Provider: ISAAC SHELTON [[id number]]Allergies As of Date: 05/22/2017 Noted Allergy ReactionTOPROL XL (METOPROLOL) 04/11/2016 14 - Other: See Comments Comments: heart races per patientDate Reviewed: 05/22/2017Reviewed by: Jesus Cheatham - Fully AssessedReason for Visit: Palpitations [79]Primary Visit Diagnosis:Premature atrial complexes [I49.1] Other Visit Diagnoses:PVC (premature ventricular contraction) [I49.3] Palpitations [R00.2] Non-rheumatic mitral regurgitation, mild [I34.0]Order(s):ECHO [[id number]] Order #: [id number]: 1 FUTUREPrescriptions as of 05/22/2017 Sig: PINDOLOL 5 MG TABLET Take 5 mg by mouth twice kwasi* SERTRALINE 50 MG TABLET Take 50 mg by mouth once kwasi* LISINOPRIL 2.5 MG TABLET Take 2.5 mg by mouth once buck* IV CONTRAST (RADIOLOGY PROCED* CT Chest W -Inject, intraveno*Problem List As Of Date 05/22/2017 Noted Resolved Lymphocytosis [D72.820] INVALID FOR* Cervical adenopathy [R59.0] INVALID FOR* Status:Closed by NANI CHEATHAM MD on 05/22/17 Normal [facility] PROGRESSon 05-22-2017 PROGRESS HNO ID: [id number] thor: Jesus Petersonervice: (none)Author Type: PhysicianType: Progress NotesFiled: 05/22/2017 3:15 PMNote Text:[facility] InstituteRobcrownpoint health [facility] and [facility] Department of Cardiovascular MedicineOUTPATIENT VISIT DATE 05/22/17OUTPATIENT VISIT TYPENEWPRIMARY CARE PHYSICIAN:Joseph Harris, DO[address] [place] [address]Qpazy: [phone]: [phone] COMPLAINT:Patient presents with:PalpitationsHISTORY OF PRESENT ILLNESS:Gladis Michael is a 41 year old female with a past cardiac history ofpalpitations, hypertensive episodes associated with flushing.The patient presents today as a new consult. The patient has previouslybeen cared for by a auger supervisor in [place]. She has been on pindolol andlisinopril for many years. She apparently did not tolerate metoprolol inthe past. She claims that metoprolol made her heart rate go into [id number]. The patient states that she has episodes off and on of a flushedfeeling followed by high blood pressure readings and dizziness. She alsofeels her heart racing. She feels this has been worse over the past 2weeks. She has had episodes like this though for many years. [facility] including a cardiac CTA,pharmacologic stress, echo and monitors. Unfortunately I do not have anyof those records to review. [facility]. [place] of dizziness. Her workup wasnegative. There was no evidence of any arrhythmia during her workup hereat this emergency room today. Her blood tests were within normal limits.Her troponin was normal. EKG was unremarkable. The patient admits thatshe gets very anxious. She has had problems with this for some time. [facility] her on Zoloft. She does complain of achest squeezing sensation at the end of our interview. Apparently thishas been going on for years also. Yesterday she had several episodes of asqueezing sensation which lasts for only 5-10 seconds. This does notsound anginal.PAST MEDICAL HISTORYDiagnosis Date- Anxiety- Hypertension- LeukocytosisPAST SURGICAL HISTORYProcedure Laterality Date- DELIVERY ONLY , low transverse- CHOLECYSTECTOMYSocial HistorySubstance Use Topics- Smoking status: Former Smoker Packs/day: 0.50 Years: 10.00 Types: Cigarettes Quit date: 05/22/2005- Smokeless tobacco: Never Used- Alcohol use NoNo family history on file.ALLERGIES:ALLERGIESAll ergen Reactions- Toprol Xl [Metoprol* Other: See Comments heart races per patientMEDICATIONS:pindolol (VISKEN) 5 mg tablet Take 5 mg by mouth twice daily.sertraline (ZOLOFT) 50 mg tablet Take 50 mg by mouth once daily.lisinopril 2.5 mg tablet Take 2.5 mg by mouth once daily.iv contrast (radiology procedure) CT Chest W -Inject, intravenously, oncefor 1 dose.No IV access, insert saline lock prior to the beginning ofsedation, infusion, injection of imaging exam. Discontinue saline lockpost exam. If Pt. has a central line or IVAD, may access foradministration according to line specific nursing protocol. Once exam iscomplete flush line and de-access according to line specific nursingprotocol in the CT contrast administration guidelines link.REVIEW OF SYSTEMS:A complete review of systems was obtained and is remarkable for that notedabove. The remaining systems are unremarkable.I personally interviewed, confirmed and edited the above information ifobtained by others.PHYSICAL EXAMINATION:BP 139/77 Pulse 69 Resp 18 Ht 160 cm (5' 3 ) Wt 101.6 kg (224 lb) SpO2 98% BMI 39.68 kg/y0Eciraxq: Well appearing, in no acute distress.Eyes: Conjunctiva normal, sclera normalNeck: No jugular venous distention, no palpable thyromegaly.Heart: Regular rhythm, S1, S2 normal, no S3, no S4. No murmur. No carotidbruits.Respiratory: Clear to auscultation bilaterally. Good respiratory effort.GI: Soft, nontender, bowel sounds normal, no palpable hepatosplenomegalyExtremiti es: Normal pulses in distal lower extremities. Absent lowerextremity edemaNeuro: Alert, cooperative with no focal deficit.Psych: Pleasant and cooperative.Skin: No rashes or wounds.CARDIOVASCULAR MEDICINE TESTING:A 48 hour Holter monitor performed on 08/28/2015 revealed an average heartrate of 68 bpm. The range was 45-126 bpm. The patient had for PVCs and 5PACs. There were no other arrhythmias noted.A 2-D echocardiogram obtained on 07/05/2015 revealed mild concentric leftventricular hypertrophy, left ventricular ejection fraction of 65%, noevidence of diastolic dysfunction, mild biatrial enlargement, mild mitralregurgitation, trivial tricuspid regurgitation and a right ventricularsystolic pressure of 35 mmHg.IMPRESSION:1. Premature atrial complexes - ICD9: 427.61, ICD10: I49.1 (primarydiagnosis), seen on Holter monitor in 2016.2. PVC (premature ventricular contraction) - ICD9: 427.69, ICD10: I49.3,rare PVCs on Holter monitor in 2016.3. Palpitations - ICD9: 785.1, ICD10: R00.2, feelings of palpitationsassociated with elevated blood pressure and flushed feeling, these havebeen occurring for years. Patient had negative workup in [place]. Placedon pindolol and lisinopril.4. Non-rheumatic mitral regurgitation, mild - ICD9: 424.0, ICD10: I34.0PLAN:2-D echocardiogram.Low caffeine intake.Low alcohol intake.Regular aerobic activity.No change in medical therapy at this time.We will contact the patient with the results of the echocardiogram andmake further recommendations at that time.Return to the office in 6 months or sooner if necessary.A copy of this consultation note will be provided to the requestingphysician by way of shared medical record or to the requesting physicianvia U.S. Mail.This document was generated utilizing [employer] dictation. I have reviewedand verified that the contents of the document are accurate with theexception of minor grammatical, spelling and punctuation errors.CONTACT INFORMATION:Thank you for allowing us to participate in the care of this very pleasantpatient. Please free to contact us if we can be of any furtherassistance.Jesus Cheatham MD, FACCRobert and Mary Marcumroosevelt general hospitalment of Cardiovascular MedicineMercy Health Tiffin Hospitalrt and Vascular Institute[address] [place], [place] [address]Qnwvxo: [phone] [facility] CNOVSPon 04-28-2017 CNOVSP Visit (SP) Office (HEMASA) -------GLADIS MICHAEL ([id number]) 1975 FDate Time Provider Qzrfyuhgty26/20/17 11:15 AM ISAAC SHELTON During your visit today, we recorded the following information about you: Temperature Pulse Respiration Blood pressure 98.7 degrees 71/minute 18/minute 151/101 Weight Height 103.2 kg 1.6 Kassidy Shelton DO 05/03/2017 3:18 PM SignedPATIENT NAME: Gladis PatelFlorianRN: [id number] PHYSICIAN: Joseph Harris DO[address] [place] [address]HYPNNWP CARE PHYSICIAN: Joseph Harris DOOTHER PHYSICIANS:CHIEF COMPLAINT: Lymphocytosis (primary encounter diagnosis)ASSESSMENT/PLAN:1 . LymphocytosisAbsolute lymphocytosis - BCR ABL and flow cytometry negative in April 2016.Paraprotein evaluation reveals slight IgG Level M spike quantitative is 0.16.No other diagnostic abnormalities. 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 For extreme low level of Mprotein and the immunofixation report which states that the bands are ratherfaint, we will continue to monitor onlyJak 2 was negative in January 2017. Peripheral flow cytometry and BCR ABL PCRwas negative in April 2016.CT of the chest abdomen and pelvis in March 2017 did not show any areas ofobvious neoplasm.Ea r nose and throat evaluation likely from clinic main campus physician . We will continue to monitor her only. She will repeat imaging inDecember. She'll also make an appointment with her primary care provider.LDH and sedimentation rate within normal limits.(D72.820) Lymphocytosis (primary encounter diagnosis)Visit (SP) Office on 04/28/17-CT CHEST WO IVCON-CT CHEST W IVCON-CT NECK SOFT TISSUE W IVCON-iv contrast (radiology procedure)-iv contrast (radiology procedure) Return in about 1 month (around 05/28/2017), or scans in may and f/uafter. ct neck and chest., for make f/u with Dr. Harris. . 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. Pastmedical history heart palpitations, hypertension, trace mitral regurgitation,ovarian cysts, anxiety, chronic lymphocytosis. Lisinopril 2.5 mg tablet,pindolol 5 mg 1 by mouth twice a day. We follow her for chronic leukocytosis and mild thrombocytosis. no clearpathologic diagnosis has been made. She was essentially asymptomatic atdiagnosis in mid to late 2015. Rodrick 2 was negative in January 2017. Peripheralflow cytometry and BCR ABL PCR was negative in April 2016.Former smokerPrevious CBC from January 2016 showed white blood cell count of 12.3 withelevated platelets of 482,000 and a normal hemoglobin with normal MCV of 85.9.Neutrophil percentage was 67% leaving an absolute neutrophil count of 8300.Recently had some chronic fatigue, nausea, lightheadedness, headaches.Laboratory from January 2016 was reviewed revealed normal liver and kidneyfunction, normal total protein and albumin, normal hemoglobin 13.4, normalkidney function, normal TSH.Family History.Mother has Jak2 positive essential thrombocytosis/polycythemia .Her sisters had similar disease.March 13, 2017 Feb 24 she went to her PCP for Ear and throat pain. She had ANDquot;puspocketsANDquot; in her throat. She was given augmentin by Dr. Jose. Fever for5 days straight. Went to ER 02/26. [place] was negative, strep negative. Flunegative. She was placed on Azithromycin. Still not improving 03/02 went backto ER. She was vomiting and nausea with persistent fevers to 102. He put jennifer IV antiobiotic and sent script for Levaquin. She went back to ER 03/09/17.Again no obvious source of fevers. WBC 21K apparently.She hasnt had a fever since 03/07/17. She cant stand up without getting nausea,dizzy. She has severe sweats in the morning when she gets up get her daystarted. No night sweats. Apparently CXRs have been negative. She is snoringa lot. She never had any sinus complaints. Feels right side of her neck isswollen. Lost 12 lbs.April 07, 2017 she is doing overall better. Still with throat soreness. Still coughing,overall worse, especially at night. No longer on an antibiotic. No morefevers about 3 wks. Nausea about same. Doesn't take nausea med. She pukedlast night after a coughing spell. Sinues are still good. Sweats improved.Energy improved. Dizzy improved but still perists after working 4 or 5 hours.Sees ENT on . Robert HERNANDEZ.April 28, 2017 still complains of constant cough, sore throat and loses her voice at times.No feverss. No short of breath. Dizzy seems better. Still nausea comes andgoes. Still with general sore throat. Overall greatly improved. Saw earnose and throat physician Dr. HERNANDEZ and decided to monitor her only for now as shehas no large palpable obvious adenopathy or lesions on nasopharyngoscopy.Results CT of the chest abdomen pelvis and neck from March [address] CT of the neck showed mildly enlarged right greater than leftlevel IIA lymphadenopathy with prominence of the nasopharynx and bilateralpalatetine tonsillar region. No mass. Focal groundglass opacities in theright upper lobe, no significant adenopathy. Borderline splenomegaly, fattyliver, low-attenuation area in the left hepatic lobe adjacent to the falciformligament which was of unclear etiology. Cysts in bilateral adnexa.Vitals: BP 151/101[rechecked: 157/103[ Pulse 71 Temp (Src) 98.7 (Oral) Resp 18 Ht 5' 2.992ANDquot; (1.60m) Wt 227 lb 9.6 oz (103.2kg) BMI 40.33kg/(m2). Body surface area is 2.14 meters squared. REVIEW OF SYSTEMS PHYSICAL EXAM ECOG PS: 0 NEGATIVES POSITIVES NEGATIVES POSITIVESGEN: fevers, sweats, chills. Overall feels well. No sweats or dizzinessSKIN: lesions, rash, itching. SKIN: Normal color, texture, turgor, no rashesor lesionsHEENT: significant headaches, changes in hearing, changes in vision, nosebleeds. right-sided sore throat seems improved but now she has a bit of ageneralized sore throat. Also contains a hoarse voice occasionally.Occasional.. ENT: No scleral icterus. no specific adenopathy was palpatedin her neck or supraclavicular area. Has fullness to the right neck but nospecific adenopathy. no pharyngeal erythema. Up NECK: Supple, no thyromegaly, no JVD.: dysuria, frequency or incontinence. LYMPH: No cervical, supraclavicular,axillary, inguinal adenopathy.RESP: dyspnea, wheezing. still with cough. LUNG: Clear to auscultation, nowheezing rales or rhonchiCARD: chest pain, leg swelling, palpitations. HEART: Regular. No murmurs,gallop, or rubs. No ectopy.GI: abdominal pain, diarrhea, constipation, melena, hematochezia.continued nausea. ABDM: Soft. Non-tender. Non-distended. Bowel soundsnormal. No masses. No hepatosplenomegaly.HEME: prolonged bleeding, bruising, adenopathy. EXT: No clubbing, cyanosisor edema.MUSC: joint pain or swelling. MUSC: No joint swelling, deformity, ortenderness.NEURO: syncope, seizures, peripheral numbness or tingling. BACK: Notenderness to palpation. No flank tenderness.MEDICATIONS:omep razole (PRILOSEC) 20 mg capsule Take 1 capsule by mouth once daily for 30days.pindolol (VISKEN) 5 mg tablet Take 5 mg by mouth twice daily.sertraline (ZOLOFT) 50 mg tablet Take 50 mg by mouth once daily.lisinopril 2.5 mg tablet Take 2.5 mg by mouth once daily.iv contrast (radiology procedure) CT Chest W -Inject, intravenously, once for 1dose.No IV access, insert saline lock prior to the beginning of sedation,infusion, injection of imaging exam. Discontinue saline lock post exam. If Pt.has a central line or IVAD, may access for administration according to linespecific nursing protocol. Once exam is complete flush line and de-accessaccording to line specific nursing protocol in the CT contrast administrationguidelines link.ALLERGIES:ALLERGIESAll ergen Reactions- Toprol Xl [Metoprol* Other: See Comments ANDquot;heart racesANDquot; per patientPAST MEDICAL HISTORYDiagnosis Date- Anxiety- Hypertension- LeukocytosisPAST SURGICAL HISTORYProcedure Laterality Date- DELIVERY ONLY , low transverse- CHOLECYSTECTOMYNo family history on file.SOCIAL HISTORY:Social HistorySubstance Use Topics- Smoking status: Former Smoker- Smokeless tobacco: Never Used- Alcohol use NoLABS:RADIOLOGY/OTHER STUDIES:COUNSELING:I discussed with Gladis the natural history, treated course, and prognosisof Lymphocytosis (primary encounter diagnosis); my impression as well as therationale, logistics, risks, benefits, and alternatives to the managementoptions noted above; and my recommendations listed below. The patientElizabeth Frances Michael verbalized understanding and agreed with theserecommendations and plan. I answered all questions satisfactorily..Hai Shelton D.O.Medical OncologistMarquette, OhioReferring Provider: ISAAC SHELTON [[id number]]Allergies As of Date: 04/28/2017 Noted Allergy ReactionTOPROL XL (METOPROLOL) 04/11/2016 14 - Other: See Comments Comments: heart races per patientDate Reviewed: 04/28/2017Reviewed by: Josephine Moscoso - Fully AssessedReason for Visit: Lymphocytosis [Other] Cmt: 3 week follow upPrimary Visit Diagnosis:Lymphocytosis [D72.820]Order(s):CT CHEST WO IVCON [[id number]] Order #: [id number] FUTURE CT CHEST W IVCON [[id number]] Order #: [id number] FUTURE iv contrast (radiology procedure)CT Chest W -Inject, intravenously, once for 1 dose.No IV access, insert saline lock prior to the beginning of sedation, infusion, injection of imaging exam. Discontinue saline lock post exam. If Pt. has a central line or IVAD, may access for administration according to line specific nursing protocol. Once exam is complete flush line and de-access according to line specific nursing protocol in the CT contrast administration guidelines link.Disp: 1 EachRfl: 0 CT NECK SOFT TISSUE W IVCON [[id number]] Order #: [id number] FUTURE [] iv contrast (radiology procedure)Inject 1 Each intravenously one time only for [address] Neck W IVCON No IV access, insert saline lock prior to the sedation, infusion, injection for imaging exam. Discontinue saline lock post exam. If Pt. has a central line or IVAD, may access for administration according to line specific nursing protocol. Once exam is complete flush line and de-access according to line specific nursing protocol in the CT contrast administration guidelines link.Disp: 1 EachRfl: 0Disposition: Return in about 1 month (around 05/28/2017), or scans in may and f/u after. ct neck and chest., for make f/u with Dr. Harris. .Follow-up and Disposition History RecordedPrescriptions as of 04/28/2017 Sig: OMEPRAZOLE 20 MG CAPSULE,PAOLA* Take 1 capsule by mouth once * PINDOLOL 5 MG TABLET Take 5 mg by mouth twice kwasi* SERTRALINE 50 MG TABLET Take 50 mg by mouth once kwasi* LISINOPRIL 2.5 MG TABLET Take 2.5 mg by mouth once buck* IV CONTRAST (RADIOLOGY PROCED* CT Chest W -Inject, intraveno* IV CONTRAST (RADIOLOGY PROCED* Inject 1 Each intravenously o*Problem List As Of Date 04/28/2017 Noted Resolved Lymphocytosis [D72.820] INVALID FOR* Cervical adenopathy [R59.0] INVALID FOR*Encounter Status:Closed by ISAAC SHELTON DO on 05/03/17 Normal [facility] PROGRESSon 04-28-2017 PROGRESS HNO ID: [id number] thor: Isaac SheltonService: (none)Author Type: PhysicianType: Progress NotesFiled: 05/03/2017 3:18 PMNote Text:PATIENT NAME: Gladis PatelarMRN: [id number] PHYSICIAN: MICHAEL Rubin[address] [place] [id number] CARE PHYSICIAN: MASOOD Rubin PHYSICIANS:CHIEF COMPLAINT: Lymphocytosis (primary encounter diagnosis)ASSESSMENT/PLAN:1 . LymphocytosisAbsolute lymphocytosis - BCR ABL and flow cytometry negative in April2016. Paraprotein evaluation reveals slight IgG Level M spikequantitative is 0.16. No other diagnostic abnormalities. At this pointwe are considering this a monoclonal gammopathy of undeterminedsignificance. For extreme low level of M protein and the immunofixationreport which states that the bands are rather faint, we will continue tomonitor onlyJak 2 was negative in January 2017. Peripheral flow cytometry and BCR ABLPCR was negative in April 2016.CT of the chest abdomen and pelvis in March 2017 did not show any areasof obvious neoplasm.Ea r nose and throat evaluation likely from clinic main campus physicianDr. HERNANDEZ. We will continue to monitor her only. She will repeat imaging inDecember. She'll also make an appointment with her primary care provider.LDH and sedimentation rate within normal limits.(D72.820) Lymphocytosis (primary encounter diagnosis)Visit (SP) Office on 04/28/17-CT CHEST WO IVCON-CT CHEST W IVCON-CT NECK SOFT TISSUE W IVCON-iv contrast (radiology procedure)-iv contrast (radiology procedure) Return in about 1 month (around 05/28/2017), or scans in may and f/uafter. ct neck and chest., for make f/u with Dr. Harris. . 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. Pastmedical history heart palpitations, hypertension, trace mitralregurgitation, ovarian cysts, anxiety, chronic lymphocytosis.Lisinopril 2.5 mg tablet, pindolol 5 mg 1 by mouth twice a day. We follow her for chronic leukocytosis and mild thrombocytosis. no clearpathologic diagnosis has been made. She was essentially asymptomatic atdiagnosis in mid to late 2015. Rodrick 2 was negative in January 2017.Peripheral flow cytometry and BCR ABL PCR was negative in April 2016.Former smokerPrevious CBC from January 2016 showed white blood cell count of 12.3 withelevated platelets of 482,000 and a normal hemoglobin with normal MCV of85.9. Neutrophil percentage was 67% leaving an absolute neutrophil countof 8300.Recently had some chronic fatigue, nausea, lightheadedness, headaches.Laboratory from January 2016 was reviewed revealed normal liver and kidneyfunction, normal total protein and albumin, normal hemoglobin 13.4, normalkidney function, normal TSH.Family History.Mother has Jak2 positive essential thrombocytosis/polycythemia .Her sisters had similar disease.March 13, 2017 Feb 24 she went to her PCP for Ear and throat pain. She had puspockets in her throat. She was given augmentin by Dr. Jose. Fever for5 days straight. Went to ER 02/26. [place] was negative, strep negative.Flu negative. She was placed on Azithromycin. Still not improving 03/02went back to ER. She was vomiting and nausea with persistent fevers to102. He put her on IV antiobiotic and sent script for Levaquin. She wentback to ER 03/09/17. Again no obvious source of fevers. WBC 21Kapparently.She hasnt had a fever since 03/07/17. She cant stand up without gettingnausea, dizzy. She has severe sweats in the morning when she gets up gether day started. No night sweats. Apparently CXRs have been negative.She is snoring a lot. She never had any sinus complaints. Feels rightside of her neck is swollen. Lost 12 lbs.April 07, 2017 she is doing overall better. Still with throat soreness. Still coughing,overall worse, especially at night. No longer on an antibiotic. No morefevers about 3 wks. Nausea about same. Doesn't take nausea med. Shepuked last night after a coughing spell. Sinues are still good. Sweatsimproved. Energy improved. Dizzy improved but still perists afterworking 4 or 5 hours. Sees ENT on . Robert HERNANDEZ.April 28, 2017 still complains of constant cough, sore throat and loses her voice attimes. No feverss. No short of breath. Dizzy seems better. Still nauseacomes and goes. Still with general sore throat. Overall greatlyimproved. Saw ear nose and throat physician Dr. HERNANDEZ and decided to monitorher only for now as she has no large palpable obvious adenopathy orlesions on nasopharyngoscopy. Results CT of the chest abdomen pelvis andneck from March 2017 of this were unrevealing. CT of the neck showedmildly enlarged right greater than left level IIA lymphadenopathy withprominence of the nasopharynx and bilateral palatetine tonsillar region.No mass. Focal groundglass opacities in the right upper lobe, nosignificant adenopathy. Borderline splenomegaly, fatty liver,low-attenuation area in the left hepatic lobe adjacent to the falciformligament which was of unclear etiology. Cysts in bilateral adnexa.Vitals: BP 151/101[rechecked: 157/103[ Pulse 71 Temp (Src) 98.7 (Oral) Resp 18 Ht 5' 2.992 (1.60m) Wt 227 lb 9.6 oz (103.2kg) BMI 40.33kg/(m2). Body surface area is 2.14 meters squared. REVIEW OF SYSTEMS PHYSICAL EXAM ECOG PS: 0 NEGATIVES POSITIVES NEGATIVES POSITIVESGEN: fevers, sweats, chills. Overall feels well. No sweats or dizzinessSKIN: lesions, rash, itching. SKIN: Normal color, texture, turgor, norashes or lesionsHEENT: significant headaches, changes in hearing, changes in vision, nosebleeds. right-sided sore throat seems improved but now she has a bit ofa generalized sore throat. Also contains a hoarse voice occasionally.Occasional.. ENT: No scleral icterus. no specific adenopathy waspalpated in her neck or supraclavicular area. Has fullness to the rightneck but no specific adenopathy. no pharyngeal erythema. Up NECK: Supple, no thyromegaly, no JVD.: dysuria, frequency or incontinence. LYMPH: No cervical,supraclavicular, axillary, inguinal adenopathy.RESP: dyspnea, wheezing. still with cough. LUNG: Clear to auscultation,no wheezing rales or rhonchiCARD: chest pain, leg swelling, palpitations. HEART: Regular. Nomurmurs, gallop, or rubs. No ectopy.GI: abdominal pain, diarrhea, constipation, melena, hematochezia.continued nausea. ABDM: Soft. Non-tender. Non-distended. Bowel soundsnormal. No masses. No hepatosplenomegaly.HEME: prolonged bleeding, bruising, adenopathy. EXT: No clubbing,cyanosis or edema.MUSC: joint pain or swelling. MUSC: No joint swelling, deformity, ortenderness.NEURO: syncope, seizures, peripheral numbness or tingling. BACK: Notenderness to palpation. No flank tenderness.MEDICATIONS:omep razole (PRILOSEC) 20 mg capsule Take 1 capsule by mouth once daily for30 days.pindolol (VISKEN) 5 mg tablet Take 5 mg by mouth twice daily.sertraline (ZOLOFT) 50 mg tablet Take 50 mg by mouth once daily.lisinopril 2.5 mg tablet Take 2.5 mg by mouth once daily.iv contrast (radiology procedure) CT Chest W -Inject, intravenously, oncefor 1 dose.No IV access, insert saline lock prior to the beginning ofsedation, infusion, injection of imaging exam. Discontinue saline lockpost exam. If Pt. has a central line or IVAD, may access foradministration according to line specific nursing protocol. Once exam iscomplete flush line and de-access according to line specific nursingprotocol in the CT contrast administration guidelines link.ALLERGIES:ALLERGIESAll ergen Reactions- Toprol Xl [Metoprol* Other: See Comments heart races per patientPAST MEDICAL HISTORYDiagnosis Date- Anxiety- Hypertension- LeukocytosisPAST SURGICAL HISTORYProcedure Laterality Date- DELIVERY ONLY , low transverse- CHOLECYSTECTOMYNo family history on file.SOCIAL HISTORY:Social HistorySubstance Use Topics- Smoking status: Former Smoker- Smokeless tobacco: Never Used- Alcohol use NoLABS:RADIOLOGY/OTHER STUDIES:COUNSELING:I discussed with Gladis the natural history, treated course, andprognosis of Lymphocytosis (primary encounter diagnosis); my impressionas well as the rationale, logistics, risks, benefits, and alternatives tothe management options noted above; and my recommendations listed below.The patient Gladismoises Michael verbalized understanding and agreed withthese recommendations and plan. I answered all questions satisfactorily..Hai Shelton D.O.Medical OncologistFormerly [facility] Remote Abs Gran + CBC (for F HC use only)on 04-28-2017 Absol Gran Count 7.86 k/uL High 1.45-7.50 [facility]am[facility] Erythrocyte distribution width Auto Ratio (RBC) 13.9 % Normal 11.5-15.0 [facility] Erythrocytes (RBC) 4.82 10*6/uL Normal 3.90-5.20 [facility] Hematocrit (HCT) 39.2 % Normal 36.0-46.0 [facility] Hemoglobin mass conc (Bld) 13.3 g/dL Normal 11.5-15.5 [facility] MCH 27.6 pG Normal 26.0-34.0 [facility] MCHC mass conc (RBC) 33.9 g/dL Normal 30.5-36.0 [facility] MCV 81.3 fL Normal 80.0-100.0 [facility] Platelet mean volume (PMV) 9.4 fL Normal 9.0-12.7 [facility] Platelets 470 10*3/uL High 150-400 [facility] WBC (Leukocytes) 11.76 10*3/uL High 3.70-11.00 [facility] CNOVon 04-10-2017 CNOV Office Visit (OTOLMN) -------GLADIS MICHAEL ([id number]) 1975 [facility] Time Provider Gjsvaobkvu06/2/17 10:00 AM CANDIS HERNANDEZ OTOLHANNA During your visit today, we recorded the following information about you: Blood pressure Weight Height 142/85 97.5 kg 1.6 Akila Joshi Ma 04/10/2017 10:01 AM SignedTobacco Use: QuitWas smoking cessation packet given? N/A - Patient is a non-smoker or quit ANDgt;1year ago.Was a referral initiated?N/A Patient is a non-smokerCandis Hernandez MD 04/16/2017 1:04 PM Dallas [id number]-HNS ConsultationReferring Physician: Dr. Isaac Winston for Consult: Cervical adenopathyConsultation requested by Dr. Sam for an opinion regarding cervicaladenopathy. My final recommendations will be communicated back to therequesting physician by way of shared medical record or letter via US mail.Chief complaint: Cervical adenopathyMEDICAL DECISION MAKING: Pt is a 41 year old female with a history of smoking(1ppd for many years, quit in 2005) and leukocytosis for the past year withwhat appears to be an acute infectious episode in mid February (?parotitis)which has since resolved with some residual symptoms of sleep apnea, sorethroat and drainage. Her head and neck exam is reassuring today withoutevidence of obvious oncologic process.She does have tonsillar and adenoid tissue hypertrophy which could be relatedto her recent illness vs. an underlying systemic immunologic disorder. This islikely contributing to her sleep related symptoms (CARYL).In addition; she does evidence of laryngopharyngeal reflux on exam and hersymptoms. We will trial PPI for 1-2 months.Plan-Prilosec for 1-2 months-Repeat CT in 8 weeks-RTC 8 weeks-Sleep studyHPI: Gladis Michael is a 41 year old female presenting with a hx ofleukocytosis, HTN, and long smoking history age 18 to 2006 1ppd on and off. Shehas been following with an oncologist for approximately 1 year for elevatedwhite blood cells without obvious cause. In mid February she developed acuteright otalgia, facial swelling, tender cervical adenopathy, sore throat, anddysphagia. She notes severe right parotid tenderness during that time. Feversfor 5 days; then on and off night sweats for approximately a month. She wastreated with augmentin and then a cephalosporin shot. Since that timetenderness, swelling, and otalgia has improved. She has residual cough, throatclearing, globus sensation, no further fevers, no night sweats. She had a CTneck in early Mar 2017, which showed mildly enlarged LAD.Facial swelling and neck swelling has improved. No further tenderness.Does endorse new snoring at night since getting sick in February. Initiallywith obstructions, but less so recently.Currently no otalgia, dysphonia. Intermittent globus sensation.PAST MEDICAL HISTORYDiagnosis Date- Anxiety- Hypertension- LeukocytosisPAST SURGICAL HISTORYProcedure Laterality Date- DELIVERY ONLY , low transverse- CHOLECYSTECTOMYCurrent Outpatient Prescriptions:ondansetron (ZOFRAN) 8 mg tablet Take 1 tablet by mouth every 8 hours as neededfor Nausea/Vomiting. Disp: 90 tablet Rfl: 3pindolol (VISKEN) 5 mg tablet Take 5 mg by mouth twice daily. Disp: Rfl:sertraline (ZOLOFT) 50 mg tablet Take 50 mg by mouth once daily. Disp: Rfl:lisinopril 2.5 mg tablet Take 2.5 mg by mouth once daily. Disp: Rfl:No current facility-administered medications for this visit.ALLERGIESAllergen Reactions- Toprol Xl [Metoprol* Other: See Comments ANDquot;heart racesANDquot; per patientHistory reviewed. No pertinent family history.Social History Marital status: Spouse name: Years of education: Number of children:Social History Main Topics Smoking status: Former Smoker Packs/day: 0.00 Years: 0.00 Smokeless status: Never Used Alcohol use: No Drug use: NoReview of Systems -ROS:GENERAL: See HPIHEENT: See HPINECK: See HPIRESPIRATORY: Negative for cough, hemoptysis, wheezing or shortness of breathCARDIOVASCULAR: Negative for chest pain, leg swelling or palpitations.GASTROINTESTIN AL: No nausea, vomiting, or diarrheaMUSCULOSKELETAL: Negative for joint pain or swelling, back pain or muscle pain.NEUROLOGIC: Negative for focal numbness or weakness, headaches and dizziness orsyncope.SKIN: Negative for lesions, rash, and itching.HEMATOLOGIC/LYMPHAT IC/IMMUNOLOGIC: Negative for prolonged bleeding, bruisingeasily or swollen nodes.ENDOCRINE: Negative for cold or heat intolerance, polyuria, polydipsia andgoiter.REVIEW OF RADIOLOGICAL FILMS AND RECORDS:CT neck 03/19IMPRESSION:Mildly enlarged right greater than left level IIa lymphadenopathy asdescribed.Otherwise, no neck masses or cervical lymphadenopathy.Prominence of the nasopharynx and bilateral palatine tonsillar regionwithout mass lesion identified for age, likely physiologic.CT Chest 03/19IMPRESSION:1. No evidence of intrathoracic lymphadenopathy.2. Focal groundglass opacities in the right upper lobe, most likelyinfectious/inflammato ry in etiology. Superimposed neoplasm cannot beexcluded. Consider follow-up to complete resolution.3. Additional 2-3 mm right upper lobe nodular opacity may also beevaluated at interval follow-up.CT Abd 03/19IMPRESSION:1. Borderline splenomegaly.2. No evidence of intra-abdominal/intrapelvic lymphadenopathy.3. Hepatic fatty infiltration.4. Focal area of low attenuation in the left hepatic lobe adjacent tofalciform ligament, most likely an area of greater fatty infiltration orperfusion anomaly. If clinically indicated this may be confirmed via MRIor interval follow-up.5. Cystic densities in the bilateral adnexa may be further evaluated viaultrasound if clinically indicated.LabsCBCRecent Labs 04/07/789068CHQ 13.32*HB 13.4HCT 40.2PLT 470*BMPInvalid input(s): PHOSCOAGsPHYSICAL EXAM:Vitals - BP 142/85 (BP Site: Left Arm, BP Position: Sitting, BP Cuff Size:Extra Large Adult) Ht 160 cm (5' 3ANDquot;) Wt 97.5 kg (215 lb) SpO2 98% BMI 38.09 kg/k2Okgszraqpzvmfu - General Appearance: well developed, well nourished, without obviousdeformities, moderate obesity, large neck Communication: speaks with a normal voice without hoarsenessHead ANDamp; Face - Overall: no obvious scars, lesions or masses Parotid and submandibular glands: soft Facial strength: FULLEar, Nose, Mouth ANDamp; Throat - Ears: WNL bilaterally, no effusions, no obvious middle ear pathology Nasal exam: mucosa is pink, septum is midline, visible turbinates are normalon anterior rhinoscopy Mastication: teeth appear normal Oral Cavity and oropharynx: mucosa, hard and soft palates, tongue, tonsilarea, posterior pharyngeal wall, lips and gums are WITHOUT lesions. There isbilateral tonsil enlargement, symmetric, soft. Tonsils, BOT, and tongue aresoft without tumors. Larynx: using the mirror for indirect laryngoscopy, the epiglottic, falsecords, true cords, and pyriform sinuses are without lesions and the true vocalcords move normally Neck: appears symmetric, and on palpation is without masses. There is d Thyroid: no asymmetry, thyromegaly, or thyroid nodules on palpationCranial Nerves: V: 1,2,3: normal sensation VII: Normal strength in all divisions IX, X: Normal voice, palatal elevation and sensation XII: Tongue mobility normalPROCEDURE:Flexible laryngoscopy: PROCEDURE NOTE:Flexible LaryngoscopyProcedure: The flexible laryngoscope was advanced through the left side of thenose after application of topical anesthesia and decongestant. Examination ofthe nasal cavity, nasopharynx, oropharynx, base of tongue, larynx, and glottiswas performed.Findings: No lesions or masses in the nasopharynx, oropharynx, BOT, vallecula,epiglottis, AE folds, pyriforms, false cords or true cords. No evidence ofpathology visible in the subglottis within limitations of methodology. Thevocal cords moved well bilaterally. There is enlarged tonsils and adenoidtissues but without asymmetry and without obvious mass or tumor. There is somethick drainage notable in the adenoidal region.Pt tolerated the procedure well, and there were no complications. Theprocedure was performed by Dr. Cole / David.Javier Cole MDFor the service of Dr. Lynn PHYSICIAN ADDENDUM: This patient was seen and examined with theresident/ fellow. The primary encounter diagnosis was Cervical adenopathy.Diagnoses of Sleep disorder breathing and LPRD (laryngopharyngeal refluxdisease) were also pertinent to this visit. We discussed the diagnosis,treatment options, and plan of care. The above note reflects the entirety ofevaluation and work performed by both the resident/fellow and myself. Ireviewed the patient's history, repeated the physical exam, reviewed relevantimaging and laboratory values and formulated the treatment plan. I have read,reviewed, edited and now agree with the above note. I was present for theclinical encounter as documented above by the residentfellow. Dr. Douglas harrison reviewed the note and agree with the findings.1. Cervical adenopathy2. Sleep disorder breathing3. LPRD (laryngopharyngeal reflux disease)- POLYSOMNOGRAM (PSG)/HOME SLEEP TEST (HST); Future- omeprazole (PRILOSEC) 20 mg capsule; Take 1 capsule by mouth once daily for30 days. Dispense: 30 capsule; Refill: 0- CT NECK W IVCON; Future- iv contrast (radiology procedure); Inject 1 Each intravenously one time onlyfor [address] Neck W IVCON No IV access, insert saline lock prior to thesedation, infusion, injection for imaging exam. Discontinue saline lock postexam. If Pt. has a central line or IVAD, may access for administrationaccording to line specific nursing protocol. Once exam is complete flush lineand de-access according to line specific nursing protocol in the CT contrastadministration guidelines link. Dispense: 1 Each; Refill: 0SIGNATURE: Candis Hernandez, MDPAGER: [id number] of SERVICE: April 16, 2017TIME of SERVICE: 1:01 PMReferring Provider: SELF [[id number]]Allergies As of Date: 04/10/2017 Noted Allergy ReactionTOPROL XL (METOPROLOL) 04/11/2016 14 - Other: See Comments Comments: heart races per patientDate Reviewed: 04/10/2017Reviewed by: Candis Hernandez - Fully AssessedReason for Visit: New Patient [172] Cmt: Throat lesion with constant couhgt and flem per patient.Reason For Visit History RecordedPrimary Visit Diagnosis:Cervical adenopathy [R59.0] Other Visit Diagnoses:Sleep disorder breathing [G47.30] LPRD (laryngopharyngeal reflux disease) [K21.9]Order(s):POLYSOMNOGR AM (PSG)/HOME SLEEP TEST (HST) [[id number]] Order #: [id number] FUTURE omeprazole (PRILOSEC) 20 mg capsuleTake 1 capsule by mouth once daily for 30 days.Disp: 30 capsuleRfl: 0 CT NECK SOFT TISSUE W IVCON [[id number]] Order #: [id number] FUTURE [] iv contrast (radiology procedure)Inject 1 Each intravenously one time only for [address] Neck W IVCON No IV access, insert saline lock prior to the sedation, infusion, injection for imaging exam. Discontinue saline lock post exam. If Pt. has a central line or IVAD, may access for administration according to line specific nursing protocol. Once exam is complete flush line and de-access according to line specific nursing protocol in the CT contrast administration guidelines link.Disp: 1 EachRfl: 0Prescriptions as of 04/10/2017 Sig: ONDANSETRON HCL 8 MG TABLET Take 1 tablet by mouth every * PINDOLOL 5 MG TABLET Take 5 mg by mouth twice kwasi* SERTRALINE 50 MG TABLET Take 50 mg by mouth once kwasi* LISINOPRIL 2.5 MG TABLET Take 2.5 mg by mouth once buck* OMEPRAZOLE 20 MG CAPSULE,PAOLA* Take 1 capsule by mouth once * IV CONTRAST (RADIOLOGY PROCED* Inject 1 Each intravenously o*Medication notes this encounter ONDANSETRON HCL 8 MG TABLET >> Sol Joshi Ma 04/10/2017 10:01 AM >> SOL JOSHI MA Meredith Apr 10, 2017 10:01 AM Not takingProblem List As Of Date 04/10/2017 Noted Resolved Lymphocytosis [D72.820] INVALID FOR* Cervical adenopathy [R59.0] INVALID FOR*Visit Notes:>> Sol Joshi Ma Meredith Apr 10, 2017 10:01 AM Status: SignedTobacco Use: PinkUP smoking cessation packet given? N/A - Patient is a non-smoker or quit>1 year ago.Was a referral initiated?N/A Patient is a non-smokerPrescriptions ordered this encounter Disp Refills Start End OMEPRAZOLE 20 MG CAPSULE,DELAYED REL* 30 c* 0 04/10/2017 05/10/2017 Route: ORAL Sig: Take 1 capsule by mouth once daily for 30 days. IV CONTRAST (RADIOLOGY PROCEDURE) 1 Ea* 0 04/10/2017 04/10/2017 Class: In Office Route: INTRAVENOUS Sig: Inject 1 Each intravenously one time only for [address] Neck W IVCON No IV access, insert saline lock prior to the sedation, infusion, injection for imaging exam. Discontinue saline lock post exam. If Pt. has a central line or IVAD, may access for administration according to line specific nursing protocol. Once exam is complete flush line and de-access according to line specific nursing protocol in the CT contrast administration guidelines link.Follow-up and Disposition History RecordedEncounter Number: [id number] Status:Closed by CANDIS HERNANDEZ MD on 04/16/17 [facility] PROGRESSon 04-10-2017 PROGRESS HNO ID: [id number] thor: Candis Salinas: (none)Author Type: PhysicianType: Progress NotesFiled: 04/16/2017 1:04 PMNote Text:Gladis [id number] 2, 2017Oto-HNS ConsultationReferring Physician: Dr. Isaac Winston for Consult: Cervical adenopathyConsultation requested by Dr. Sam for an opinion regarding cervicaladenopathy. My final recommendations will be communicated back to therequesting physician by way of shared medical record or letter via USmail.Chief complaint: Cervical adenopathyMEDICAL DECISION MAKING: Pt is a 41 year old female with a history ofsmoking (1ppd for many years, quit in 2005) and leukocytosis for the pastyear with what appears to be an acute infectious episode in mid February(?parotitis) which has since resolved with some residual symptoms of sleepapnea, sore throat and drainage. Her head and neck exam is reassuringtoday without evidence of obvious oncologic process.She does have tonsillar and adenoid tissue hypertrophy which could berelated to her recent illness vs. an underlying systemic immunologicdisorder. This is likely contributing to her sleep related symptoms (CARYL).In addition; she does evidence of laryngopharyngeal reflux on exam and hersymptoms. We will trial PPI for 1-2 months.Plan-Prilosec for 1-2 months-Repeat CT in 8 weeks-RTC 8 weeks-Sleep studyHPI: Gladis Michael is a 41 year old female presenting with a hx ofleukocytosis, HTN, and long smoking history age 18 to 2006 1ppd on andoff. She has been following with an oncologist for approximately 1 yearfor elevated white blood cells without obvious cause. In mid February shedeveloped acute right otalgia, facial swelling, tender cervicaladenopathy, sore throat, and dysphagia. She notes severe right parotidtenderness during that time. Fevers for 5 days; then on and off nightsweats for approximately a month. She was treated with augmentin and thena cephalosporin shot. Since that time tenderness, swelling, and otalgiahas improved. She has residual cough, throat clearing, globus sensation,no further fevers, no night sweats. She had a CT neck in early Mar 2017,which showed mildly enlarged LAD.Facial swelling and neck swelling has improved. No further tenderness.Does endorse new snoring at night since getting sick in February.Initially with obstructions, but less so recently.Currently no otalgia, dysphonia. Intermittent globus sensation.PAST MEDICAL HISTORYDiagnosis Date- Anxiety- Hypertension- LeukocytosisPAST SURGICAL HISTORYProcedure Laterality Date- DELIVERY ONLY , low transverse- CHOLECYSTECTOMYCurrent Outpatient Prescriptions:ondansetron (ZOFRAN) 8 mg tablet Take 1 tablet by mouth every 8 hours asneeded for Nausea/Vomiting. Disp: 90 tablet Rfl: 3pindolol (VISKEN) 5 mg tablet Take 5 mg by mouth twice daily. Disp: Rfl:sertraline (ZOLOFT) 50 mg tablet Take 50 mg by mouth once daily. Disp:Rfl:lisinopril 2.5 mg tablet Take 2.5 mg by mouth once daily. Disp: Rfl:No current facility-administered medications for this visit.ALLERGIESAllergen Reactions- Toprol Xl [Metoprol* Other: See Comments heart races per patientHistory reviewed. No pertinent family history.Social History Marital status: Spouse name: Years of education: Number of children:Social History Main Topics Smoking status: Former Smoker Packs/day: 0.00 Years: 0.00 Smokeless status: Never Used Alcohol use: No Drug use: NoReview of Systems -ROS:GENERAL: See HPIHEENT: See HPINECK: See HPIRESPIRATORY: Negative for cough, hemoptysis, wheezing or shortness ofbreathCARDIOVASCULAR: Negative for chest pain, leg swelling or palpitations.GASTROINTESTIN AL: No nausea, vomiting, or diarrheaMUSCULOSKELETAL: Negative for joint pain or swelling, back pain or musclepain.NEUROLOGIC: Negative for focal numbness or weakness, headaches anddizziness or syncope.SKIN: Negative for lesions, rash, and itching.HEMATOLOGIC/LYMPHAT IC/IMMUNOLOGIC: Negative for prolonged bleeding,bruising easily or swollen nodes.ENDOCRINE: Negative for cold or heat intolerance, polyuria, polydipsia andgoiter.REVIEW OF RADIOLOGICAL FILMS AND RECORDS:CT neck 03/19IMPRESSION:Mildly enlarged right greater than left level IIa lymphadenopathy asdescribed.Otherwise, no neck masses or cervical lymphadenopathy.Prominence of the nasopharynx and bilateral palatine tonsillar regionwithout mass lesion identified for age, likely physiologic.CT Chest 03/19IMPRESSION:1. No evidence of intrathoracic lymphadenopathy.2. Focal groundglass opacities in the right upper lobe, most likelyinfectious/inflammato ry in etiology. Superimposed neoplasm cannot beexcluded. Consider follow-up to complete resolution.3. Additional 2-3 mm right upper lobe nodular opacity may also beevaluated at interval follow-up.CT Abd 03/19IMPRESSION:1. Borderline splenomegaly.2. No evidence of intra-abdominal/intrapelvic lymphadenopathy.3. Hepatic fatty infiltration.4. Focal area of low attenuation in the left hepatic lobe adjacent tofalciform ligament, most likely an area of greater fatty infiltration orperfusion anomaly. If clinically indicated this may be confirmed via MRIor interval follow-up.5. Cystic densities in the bilateral adnexa may be further evaluated viaultrasound if clinically indicated.LabsCBCRecent Labs 04/07/174496TVM 13.32*HB 13.4HCT 40.2PLT 470*BMPInvalid input(s): PHOSCOAGsPHYSICAL EXAM:Vitals - BP 142/85 (BP Site: Left Arm, BP Position: Sitting, BP Cuff Size:Extra Large Adult) Ht 160 cm (5' 3 ) Wt 97.5 kg (215 lb) SpO2 98% BMI 38.09 kg/r4Ztyohchawxsfpg - General Appearance: well developed, well nourished, without obviousdeformities, moderate obesity, large neck Communication: speaks with a normal voice without hoarsenessHead AND Face - Overall: no obvious scars, lesions or masses Parotid and submandibular glands: soft Facial strength: FULLEar, Nose, Mouth AND Throat - Ears: WNL bilaterally, no effusions, no obvious middle ear pathology Nasal exam: mucosa is pink, septum is midline, visible turbinates arenormal on anterior rhinoscopy Mastication: teeth appear normal Oral Cavity and oropharynx: mucosa, hard and soft palates, tongue,tonsil area, posterior pharyngeal wall, lips and gums are WITHOUT lesions.There is bilateral tonsil enlargement, symmetric, soft. Tonsils, BOT, andtongue are soft without tumors. Larynx: using the mirror for indirect laryngoscopy, the epiglottic,false cords, true cords, and pyriform sinuses are without lesions and thetrue vocal cords move normally Neck: appears symmetric, and on palpation is without masses. There is d Thyroid: no asymmetry, thyromegaly, or thyroid nodules on palpationCranial Nerves: V: 1,2,3: normal sensation VII: Normal strength in all divisions IX, X: Normal voice, palatal elevation and sensation XII: Tongue mobility normalPROCEDURE:Flexible laryngoscopy: PROCEDURE NOTE:Flexible LaryngoscopyProcedure: The flexible laryngoscope was advanced through the left side ofthe nose after application of topical anesthesia and decongestant.Examination of the nasal cavity, nasopharynx, oropharynx, base of tongue,larynx, and glottis was performed.Findings: No lesions or masses in the nasopharynx, oropharynx, BOT,vallecula, epiglottis, AE folds, pyriforms, false cords or true cords. Noevidence of pathology visible in the subglottis within limitations ofmethodology. The vocal cords moved well bilaterally. There is enlargedtonsils and adenoid tissues but without asymmetry and without obvious massor tumor. There is some thick drainage notable in the adenoidal region.Pt tolerated the procedure well, and there were no complications. Theprocedure was performed by Dr. Cole / David.Javier Cole MDFor the service of Dr. Lynn PHYSICIAN ADDENDUM: This patient was seen and examined with theresident/ fellow. The primary encounter diagnosis was Cervical adenopathy.Diagnoses of Sleep disorder breathing and LPRD (laryngopharyngeal refluxdisease) were also pertinent to this visit. We discussed the diagnosis,treatment options, and plan of care. The above note reflects the entiretyof evaluation and work performed by both the resident/fellow and myself.I reviewed the patient's history, repeated the physical exam, reviewedrelevant imaging and laboratory values and formulated the treatment plan.I have read, reviewed, edited and now agree with the above note. I waspresent for the clinical encounter as documented above by theresidentfellward. Dr. Cole and have reviewed the note and agree with thefindings.1. Cervical adenopathy2. Sleep disorder breathing3. LPRD (laryngopharyngeal reflux disease)- POLYSOMNOGRAM (PSG)/HOME SLEEP TEST (HST); Future- omeprazole (PRILOSEC) 20 mg capsule; Take 1 capsule by mouth once dailyfor 30 days. Dispense: 30 capsule; Refill: 0- CT NECK W IVCON; Future- iv contrast (radiology procedure); Inject 1 Each intravenously one timeonly for [address] Neck W IVCON No IV access, insert saline lock prior tothe sedation, infusion, injection for imaging exam. Discontinue salinelock post exam. If Pt. has a central line or IVAD, may access foradministration according to line specific nursing protocol. Once exam iscomplete flush line and de-access according to line specific nursingprotocol in the CT contrast administration guidelines link. Dispense: 1Each; Refill: 0SIGNATURE: Candis Hernandez, MDPAGER: [id number] of SERVICE: April 16, 2017TIME of SERVICE: 1:01 PM Normal [facility] CNOVSPon 04-07-2017 CNOVSP Visit (SP) Office ([place]) -------GLADIS MICHAEL ([id number]) 1975 FDate Time Provider Qebgntpnwp39/30/17 1:45 PM ISAAC SHELTON During your visit today, we recorded the following information about you: Temperature Pulse Respiration Blood pressure 98.5 degrees 75/minute 18/minute 156/106 Weight Height 102.2 kg 1.6 TXvalorie Shelton DO 04/11/2017 10:43 AM SignedPATIENT NAME: Gladis ElderRN: [id number] PHYSICIAN: Joseph Harris DO[address] [facility] [id number] CARE PHYSICIAN: MASOOD Rubin PHYSICIANS:CHIEF COMPLAINT: Lymphocytosis (primary encounter diagnosis)ASSESSMENT/PLAN:1 . LymphocytosisAbsolute lymphocytosis - BCR ABL and flow cytometry negative in April 2016.Paraprotein evaluation reveals slight IgG Level M spike quantitative is 0.16.No other diagnostic abnormalities. 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 For extreme low level of Mprotein and the immunofixation report which states that the bands are ratherfaint, we will continue to monitor onlyNegative JAK2 MutationWe were comfortable monitoring her disease until she started to feel terriblein February 2017. She has multiple nonspecific complaints none of whichdirectly seem like a B symptom or a symptom of leukemia or lymphoma. Despitethis and her right neck fullness although there is no objective adenopathy permy examination I have offered her a CAT scan of the chest abdomen and pelvis.She will follow-up afterwards to discuss whether or not a bone marrow biopsywill yield any additional diagnostic information.Essentially I offer her bone marrow biopsy versus evaluation by ear nose andthroat to see if there would be any utility or possibility of neck adenopathybiopsy. She chose to have an ear nose and throat physician evaluation for now. She'll follow-up with me in 2 weeks.Of note, her mother has JAK2 positive disease.LDH and sedimentation rate within normal limits.(D72.820) Lymphocytosis (primary encounter diagnosis)No orders found for this visit on 04/07/17. Return in about 2 weeks (qshtvp8104/21/2017), or f/u 2 wks.. 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.Past medical history heart palpitations, hypertension, trace mitralregurgitation, ovarian cysts, anxiety, chronic lymphocytosis.Lisinopril 2.5 mg tablet, pindolol 5 mg 1 by mouth twice a day.Former smokerRecent CBC from 03/23/16 shows white blood cell count of 13.0 with absoluteneutrophil count of 9500 and absolute lymphocyte count of 2600.Previous CBC from January 2016 showed white blood cell count of 12.3 withelevated platelets of 482,000 and a normal hemoglobin with normal MCV of 85.9.Neutrophil percentage was 67% leaving an absolute neutrophil count of 8300.Recently had some chronic fatigue, nausea, lightheadedness, headaches.Laboratory from January 2016 was reviewed revealed normal liver and kidneyfunction, normal total protein and albumin, normal hemoglobin 13.4, normalkidney function, normal TSH.Family History.Mother has Jak2 positive essential thrombocytosis/polycythemia .Her sisters had similar disease.March 13, 2017 Feb 24 she went to her PCP for Ear and throat pain. She had ANDquot;puspocketsANDquot; in her throat. She was given augmentin by Dr. Jose. Fever for5 days straight. Went to ER 02/26. [place] was negative, strep negative. Flunegative. She was placed on Azithromycin. Still not improving 03/02 went backto ER. She was vomiting and nausea with persistent fevers to 102. He put jennifer IV antiobiotic and sent script for Levaquin. She went back to ER 03/09/17.Again no obvious source of fevers. WBC 21K apparently.She hasnt had a fever since 03/07/17. She cant stand up without getting nausea,dizzy. She has severe sweats in the morning when she gets up get her daystarted. No night sweats. Apparently CXRs have been negative. She is snoringa lot. She never had any sinus complaints. Feels right side of her neck isswollen. Lost 12 lbs.April 07, 2017 she is doing overall better. Still with throat soreness. Still coughing,overall worse, especially at night. No longer on an antibiotic. No morefevers about 3 wks. Nausea about same. Doesn't take nausea med. She pukedlast night after a coughing spell. Sinues are still good. Sweats improved.Energy improved. Dizzy improved but still perists after working 4 or 5 hours.Sees ENT on . Robert HERNANDEZ.Vitals: BP 156/106[second attempt LT arm 162/106[ Pulse 75 Temp (Src) 98.5(Oral) Resp 18 Ht 5' 2.992ANDquot; (1.60m) Wt 225 lb 6.4 oz (102.2kg) BMI39.94 kg/(m2). Body surface area is 2.13 meters squared. REVIEW OF SYSTEMS PHYSICAL EXAM ECOG PS: 0 NEGATIVES POSITIVES NEGATIVES POSITIVESGEN: fevers, sweats, chills. Overall feels well. sweats and dizzinessgreatly improved. GEN: Well appearing, alert, in no acute distress, appearsstated ageSKIN: lesions, rash, itching. SKIN: Normal color, texture, turgor, no rashesor lesionsHEENT: significant headaches, changes in hearing, changes in vision, nosebleeds. continued right-sided ear throat and neck pain. ENT: No scleralicterus. no specific adenopathy was palpated in her neck or supraclaviculararea. Has fullness to the right neck but no specific adenopathy. NECK: Supple, no thyromegaly, no JVD.: dysuria, frequency or incontinence. LYMPH: No cervical, supraclavicular,axillary, inguinal adenopathy.RESP: dyspnea, wheezing. still with cough. LUNG: Clear to auscultation, nowheezing rales or rhonchiCARD: chest pain, leg swelling, palpitations. HEART: Regular. No murmurs,gallop, or rubs. No ectopy.GI: abdominal pain, diarrhea, constipation, melena, hematochezia.continued nausea. ABDM: Soft. Non-tender. Non-distended. Bowel soundsnormal. No masses. No hepatosplenomegaly.HEME: prolonged bleeding, bruising, adenopathy. EXT: No clubbing, cyanosisor edema.MUSC: joint pain or swelling. MUSC: No joint swelling, deformity, ortenderness.NEURO: syncope, seizures, peripheral numbness or tingling. BACK: Notenderness to palpation. No flank tenderness.MEDICATIONS:onda nsetron (ZOFRAN) 8 mg tablet Take 1 tablet by mouth every 8 hours as neededfor Nausea/Vomiting.pindolol (VISKEN) 5 mg tablet Take 5 mg by mouth twice daily.sertraline (ZOLOFT) 50 mg tablet Take 50 mg by mouth once daily.lisinopril 2.5 mg tablet Take 2.5 mg by mouth once daily.omeprazole (PRILOSEC) 20 mg capsule Take 1 capsule by mouth once daily for 30days.ALLERGIES:ALLERGIESA llergen Reactions- Toprol Xl [Metoprol* Other: See Comments ANDquot;heart racesANDquot; per patientPAST MEDICAL HISTORYDiagnosis Date- Anxiety- Hypertension- LeukocytosisPAST SURGICAL HISTORYProcedure Laterality Date- DELIVERY ONLY , low transverse- CHOLECYSTECTOMYNo family history on file.SOCIAL HISTORY:Social HistorySubstance Use Topics- Smoking status: Former Smoker- Smokeless tobacco: Never Used- Alcohol use NoLABS:RADIOLOGY/OTHER STUDIES:COUNSELING:I discussed with Gladis the natural history, treated course, and prognosisof Lymphocytosis (primary encounter diagnosis); my impression as well as therationale, logistics, risks, benefits, and alternatives to the managementoptions noted above; and my recommendations listed below. The patientElizabechapito Michael verbalized understanding and agreed with theserecommendations and plan. I answered all questions satisfactorily..Hai Shelton D.O.Medical OncologistMarquette, [place]Referring Provider: ISAAC SHELTON [[id number]]Allergies As of Date: 04/07/2017 Noted Allergy ReactionTOPROL XL (METOPROLOL) 04/11/2016 14 - Other: See Comments Comments: heart races per patientDate Reviewed: 04/07/2017Reviewed by: Josephine Moscoso - Fully AssessedReason for Visit: Lymphocytosis [Other] Cmt: 2 week follow upPrimary Visit Diagnosis:Lymphocytosis [D72.820]Disposition: Return in about 2 weeks (around 04/21/2017), or f/u 2 wks..Follow-up and Disposition History RecordedPrescriptions as of 04/07/2017 Sig: ONDANSETRON HCL 8 MG TABLET Take 1 tablet by mouth every * PINDOLOL 5 MG TABLET Take 5 mg by mouth twice kwasi* SERTRALINE 50 MG TABLET Take 50 mg by mouth once kwasi* LISINOPRIL 2.5 MG TABLET Take 2.5 mg by mouth once buck*Problem List As Of Date 04/07/2017 Noted Resolved Lymphocytosis [D72.820] INVALID FOR* Cervical adenopathy [R59.0] INVALID FOR*Encounter Status:Closed by ISAAC SHELTON DO on 04/11/17 Normal [facility] LDon 04-07-2017 LD 212 U/L Normal 135-214 [facility] Comment on above: Performed By: #### L D6 ####[facility] [address] [place], [place] [id number] PROGRESSon 04-07-2017 PROGRESS HNO ID: [id number] thor: Isaac SheltonService: (none)Author Type: PhysicianType: Progress NotesFiled: 04/11/2017 10:43 AMNote Text:PATIENT NAME: Gladis ElderRN: [id number] PHYSICIAN: Joseph Harris DO[address] [facility] [place] [id number] CARE PHYSICIAN: MASOOD Rubin PHYSICIANS:CHIEF COMPLAINT: Lymphocytosis (primary encounter diagnosis)ASSESSMENT/PLAN:1 . LymphocytosisAbsolute lymphocytosis - BCR ABL and flow cytometry negative in April2016. Paraprotein evaluation reveals slight IgG Level M spikequantitative is 0.16. No other diagnostic abnormalities. At this pointwe are considering this a monoclonal gammopathy of undeterminedsignificance. For extreme low level of M protein and the immunofixationreport which states that the bands are rather faint, we will continue tomonitor onlyNegative JAK2 MutationWe were comfortable monitoring her disease until she started to feelterrible in February 2017. She has multiple nonspecific complaints noneof which directly seem like a B symptom or a symptom of leukemia orlymphoma. Despite this and her right neck fullness although there is noobjective adenopathy per my examination I have offered her a CAT scan ofthe chest abdomen and pelvis. She will follow-up afterwards to discusswhether or not a bone marrow biopsy will yield any additional diagnosticinformation.Luis lama I offer her bone marrow biopsy versus evaluation by ear noseand throat to see if there would be any utility or possibility of neckadenopathy biopsy. She chose to have an ear nose and throat physicianevaluation for now. She'll follow-up with me in 2 weeks.Of note, her mother has JAK2 positive disease.LDH and sedimentation rate within normal limits.(D72.820) Lymphocytosis (primary encounter diagnosis)No orders found for this visit on 04/07/17. Return in about 2 weeks(around 04/21/2017), or f/u 2 wks.. 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 Neutrophil percentage was 67% leaving an absolute neutrophil countof 8300.Recently had some chronic fatigue, nausea, lightheadedness, headaches.Laboratory from January 2016 was reviewed revealed normal liver and kidneyfunction, normal total protein and albumin, normal hemoglobin 13.4, normalkidney function, normal TSH.Family History.Mother has Jak2 positive essential thrombocytosis/polycythemia .Her sisters had similar disease.March 13, 2017 Feb 24 she went to her PCP for Ear and throat pain. She had puspockets in her throat. She was given augmentin by Dr. Jose. Fever for5 days straight. Went to ER 02/26. [place] was negative, strep negative.Flu negative. She was placed on Azithromycin. Still not improving 03/02went back to ER. She was vomiting and nausea with persistent fevers to102. He put her on IV antiobiotic and sent script for Levaquin. She wentback to ER 03/09/17. Again no obvious source of fevers. WBC 21Kapparently.She hasnt had a fever since 03/07/17. She cant stand up without gettingnausea, dizzy. She has severe sweats in the morning when she gets up gether day started. No night sweats. Apparently CXRs have been negative.She is snoring a lot. She never had any sinus complaints. Feels rightside of her neck is swollen. Lost 12 lbs.April 07, 2017 she is doing overall better. Still with throat soreness. Still coughing,overall worse, especially at night. No longer on an antibiotic. No morefevers about 3 wks. Nausea about same. Doesn't take nausea med. Shepuked last night after a coughing spell. Sinues are still good. Sweatsimproved. Energy improved. Dizzy improved but still perists afterworking 4 or 5 hours. Sees ENT on . Robert HERNANDEZ.Vitals: BP 156/106[second attempt LT arm 162/106[ Pulse 75 Temp (Src)98.5 (Oral) Resp 18 Ht 5' 2.992 (1.60m) Wt 225 lb 6.4 oz (102.2kg) BMI 39.94 kg/(m2). Body surface area is 2.13 meters squared. REVIEW OF SYSTEMS PHYSICAL EXAM ECOG PS: 0 NEGATIVES POSITIVES NEGATIVES POSITIVESGEN: fevers, sweats, chills. Overall feels well. sweats and dizzinessgreatly improved. GEN: Well appearing, alert, in no acute distress,appears stated ageSKIN: lesions, rash, itching. SKIN: Normal color, texture, turgor, norashes or lesionsHEENT: significant headaches, changes in hearing, changes in vision, nosebleeds. continued right-sided ear throat and neck pain. ENT: Noscleral icterus. no specific adenopathy was palpated in her neck orsupraclavicular area. Has fullness to the right neck but no specificadenopathy. NECK: Supple, no thyromegaly, no JVD.: dysuria, frequency or incontinence. LYMPH: No cervical,supraclavicular, axillary, inguinal adenopathy.RESP: dyspnea, wheezing. still with cough. LUNG: Clear to auscultation,no wheezing rales or rhonchiCARD: chest pain, leg swelling, palpitations. HEART: Regular. Nomurmurs, gallop, or rubs. No ectopy.GI: abdominal pain, diarrhea, constipation, melena, hematochezia.continued nausea. ABDM: Soft. Non-tender. Non-distended. Bowel soundsnormal. No masses. No hepatosplenomegaly.HEME: prolonged bleeding, bruising, adenopathy. EXT: No clubbing,cyanosis or edema.MUSC: joint pain or swelling. MUSC: No joint swelling, deformity, ortenderness.NEURO: syncope, seizures, peripheral numbness or tingling. BACK: Notenderness to palpation. No flank tenderness.MEDICATIONS:onda nsetron (ZOFRAN) 8 mg tablet Take 1 tablet by mouth every 8 hours asneeded for Nausea/Vomiting.pindolol (VISKEN) 5 mg tablet Take 5 mg by mouth twice daily.sertraline (ZOLOFT) 50 mg tablet Take 50 mg by mouth once daily.lisinopril 2.5 mg tablet Take 2.5 mg by mouth once daily.omeprazole (PRILOSEC) 20 mg capsule Take 1 capsule by mouth once daily for30 days.ALLERGIES:ALLERGIESAll ergen Reactions- Toprol Xl [Metoprol* Other: See Comments heart races per patientPAST MEDICAL HISTORYDiagnosis Date- Anxiety- Hypertension- LeukocytosisPAST SURGICAL HISTORYProcedure Laterality Date- DELIVERY ONLY , low transverse- CHOLECYSTECTOMYNo family history on file.SOCIAL HISTORY:Social HistorySubstance Use Topics- Smoking status: Former Smoker- Smokeless tobacco: Never Used- Alcohol use NoLABS:RADIOLOGY/OTHER STUDIES:COUNSELING:I discussed with Gladis the natural history, treated course, andprognosis of Lymphocytosis (primary encounter diagnosis); my impressionas well as the rationale, logistics, risks, benefits, and alternatives tothe management options noted above; and my recommendations listed below.The patient Gladis Michael verbalized understanding and agreed withthese recommendations and plan. I answered all questions satisfactorily..Hai Shelton D.O.Medical OncologistFormerly [facility] 03-27-2017 CNCO Letter TextNorth [address] [address]Krtpx: [phone]: [facility] [place], [place] [address]Oarcj: [phone]: [place] [id number] [place], [place] [address]Kohyk: [phone]: Toll Free: [phone] [email or web address] Saad Arredondo M.D., Carlos Gleason M.D.Luiz Berrios M.D.Isaac Shelton D.O.Yesenia Ruiz M.D.Andrea Drake M.D.March 27, 2017[facility] Michael[address] [facility] [address]Hbre Ms. Michael,You missed your scheduled appointment on 03/27/17. Please call our officeto reschedule. If you need to cancel any future appointments, please call togive us 24 hour notice so that we can offer your appointment to anotherpatient.Sincerely,Tulio Au M.D. Normal [facility] CT ABD/PEL W IVCONon 017 CT ABD/PEL W IVCON * * *Final Report* * *DATE OF EXAM: Mar 19 2017 9:29AM [facility] 0530 - CT ABD/PEL W IVCON / REASON: Lymphocytosis (symptomatic) * * * * Physician Interpretation * * * *RESULT: EXAMINATION: CT ABDOMEN AND PELVIS WITH IV CONTRASTCLINICAL HISTORY: LymphocytosisTECHNIQUE: CT of the abdomen and pelvis was performed using standard technique, scanning from just above the dome of the diaphragm to the symphysis pubis.M: CTAP_3Contrast:Oral: 900 ml of 50ML Omnipaque 240 W 850ML WaterIV: 150 ml of Omnipaque 300CT Radiation dose: Integrated Dose-length product (DLP) for this visit = 1071 mGy*cm.CT Dose Reduction Employed: No dose reduction techniques were requiredCOMPARISON: None.RESULT:Liver: Fatty infiltration of the liver is noted. An area of low attenuation is noted in the left hepatic lobe adjacent to falciform ligament (image 3:33), most likely an area of greater fatty infiltration or perfusion anomaly. Otherwise no evidence of a hepatic mass.Biliary: No bile duct dilation. Gallbladder is absent.Spleen: No mass. Borderline enlarged measuring 13 cm in length.Pancreas: No mass or duct dilation.Adrenals: No mass.Kidneys: No mass, calculus or hydronephrosis.GI tract: No dilation or wall thickening. No evidence of appendicitis.Lymph nodes: No abdominal or pelvic lymphadenopathy.Mesentery/P eritoneum: No ascites or mass.Retroperitoneum: No mass.Vasculature: The celiac axis and SMA are patent. The portal vein and branches, splenic vein, SMV, and hepatic veins are patent.Pelvis: No mass, ascites or fluid collection. The uterus is present. The urinary bladder is under distended. Cystic densities in the right adnexa measuring up to 2.5 cm. Cystic densities in the left adnexa measuring up to 2.4 cm.Bones/Soft Tissues: No suspicious lytic or blastic osseous lesions.Lower thorax: Please refer to the chest CT scan report for the chest findings.IMPRESSION:1. Borderline splenomegaly.2. No evidence of intra-abdominal/intrapelvic lymphadenopathy.3. Hepatic fatty infiltration.4. Focal area of low attenuation in the left hepatic lobe adjacent to falciform ligament, most likely an area of greater fatty infiltration or perfusion anomaly. If clinically indicated this may be confirmed via MRI or interval follow-up.5. Cystic densities in the bilateral adnexa may be further evaluated via ultrasound if clinically indicated. Transcr charley Date/Time: Mar 19 2017 2:54PDictated by: FERDINAND BLACK MDThis examination was interpreted and the report reviewed and electronically signed by: FERDINAND BLACK MD on Mar 19 2017 3:06PM ESTThank you for allowing us to participate in the care of your patient.Should there be any questions regarding this interpretation, please call [phone].If you are unable to reach us at the number above,please feel free to contact [facility] at [phone]_ IDCSIACN Normal [facility] CT CHEST W IVCONon 7 CT CHEST W IVCON * * *Final Report* * *DATE OF EXAM: Mar 19 2017 9:29AM [facility] 0539 - CT CHEST W IVCON / REASON: Lymphocytosis (symptomatic) * * * * Physician Interpretation * * * *RESULT: EXAMINATION: CHEST CT WITH CONTRASTCLINICAL HISTORY: Lymphocytosis (symptomatic)Technique: Spiral CT acquisition of the chest from the thoracic inlet to the upper abdomen following IV contrast.M: CTCW_4Contrast: 150 cc Omnipaque 300 IVCT Dose-Length Product: 492 mGy*cmCT Dose Reduction Employed: mAs-kVp adjusted based on patient size-ageComparison: None availableRESULT:Limitations : None.Lines, tubes, and devices: None.Lung parenchyma and pleura: Focal subcentimeter groundglass opacities in the right upper lobe (image 4:59-62) are most likely infectious/inflammatory in etiology. An additional 2-3 mm right upper lobe (image 4:19) is noted. No pleural effusion. Central airways are patent.Thoracic inlet, heart, and mediastinum: No lymphadenopathy in the axillary, mediastinal, or hilar regions. The thoracic aorta and main pulmonary artery are normal in caliber. The cardiac chambers are normal in size. No coronary artery atherosclerotic calcifications are noted, although the study is not optimized for coronary assessment. No pericardial effusion or thickening. Please refer to the neck CT scan report for the neck findings.Bones and soft tissues: No destructive bone lesion. Chest wall is unremarkable.Upper abdomen: Please refer to the abdomen CT scan report for the abdomen findings.IMPRESSION:1. No evidence of intrathoracic lymphadenopathy.2. Focal groundglass opacities in the right upper lobe, most likely infectious/inflammatory in etiology. Superimposed neoplasm cannot be excluded. Consider follow-up to complete resolution.3. Additional 2-3 mm right upper lobe nodular opacity may also be evaluated at interval follow-up.Transcribe Date/Time: Mar 19 2017 2:46PDictated by: FERDINAND BLACK MDThis examination was interpreted and the report reviewed and electronically signed by: FERDINAND BLACK MD on Mar 19 2017 3:05PM ESTThank you for allowing us to participate in the care of your patient.Should there be any questions regarding this interpretation, please call [phone].If you are unable to reach us at the number above,please feel free to contact [facility] at [phone]_ IDCSIACN Normal [facility] CT NECK SOFT TISSUE W IVCONo n 03-19-2017 CT NECK SOFT TISSUE W IVCON * * *Final Report* * *DATE OF EXAM: Mar 19 2017 9:28AM [facility] 0013 - CT NECK SOFT TISSUE W IVCON / REASON: Lymphocytosis (symptomatic) * * * * Physician Interpretation * * * *RESULT: EXAMINATION: CT NECK SOFT TISSUE W IVCONHISTORY: 41-year-old female with history of Lymphocytosis (symptomatic) .COMPARISON: None.TECHNIQUE: Helical scan of the neck from the petrous ridges through the upper mediastinum was performed with contrast.IV: 100 cc Omnipaque 300Dose-Length Product (DLP): 660 mGy*cmCT Dose Reduction Employed: No dose reduction techniques were requiredRESULT:Alignment: Gross alignment of the cervical spine is normal in the sagittal plane.Mucosal surfaces and pharyngeal mucosal space: There is prominence of the nasopharynx and bilateral palatine tonsils for age although this may still be physiologic without mass lesion identified.Pre-styloid parapharyngeal space: Fat and muscle planes are normal.Granite Installer space: Visualized mandible, muscles of mastication, pterygopalatine fossa and pterygomaxillary fissures are normal bilaterally.Jaw: No gross bony destructive lesions or dental inflammatory lesions identified.Carotid sheath and contents: Carotid arteries and jugular veins demonstrate normal contrast enhancement. No evidence of mass within the carotid sheath nor is there abnormal splaying of the internal and external carotid artery on the right or left.Tongue base and vallecula: No mass is identified; including the tongue base, and caudal aspect of the tonsillar pillars. Vallecula is normal. Preepiglottic fat is maintained.Cervical soft tissues and lymph nodes: There are mildly enlarged right greater left level II lymph nodes. The largest in the right neck measures up to 1.7 x 1.6 x 2.9 cm as seen on image 90 series 3. The largest in the left neck measures up to 2.4 x 1.0 x 1.5 cm. Additional scattered nonenlarged cervical lymph nodes are noted. No infiltration of the adjacent soft tissues to indicate extranodal extension.Major salivary glands: Morphology, attenuation, and enhancement pattern of the major salivary glands is normal.Thyroid: Morphology and enhancement pattern of the thyroid is normal.Larynx and visible tracheobronchial tree: No laryngeal or para laryngeal masses are identified. Paraglottic fat plane is preserved. No endoluminal mass within the visualized tracheobronchial tree. Airway is patent to the whitley.Lung apices and upper mediastinum: Lung apices are clear. No mediastinal mass identified.Frontal sinuses: There is minimal mucosal thickening of the right maxillary sinus.IMPRESSION:Mildly enlarged right greater than left level IIa lymphadenopathy as described.Otherwise, no neck masses or cervical lymphadenopathy.Prominence of the nasopharynx and bilateral palatine tonsillar region without mass lesion identified for age, likely physiologic.Transcribe Date/Time: Mar 19 2017 9:39ADictated by: SATURNINO RODRIGEZ MDThis examination was interpreted and the report reviewed and electronically signed by: ALYSSA DREW MD on Mar 19 2017 11:21AM ESTThank you for allowing us to participate in the care of your patient.Should there be any questions regarding this interpretation, please call [phone].If you are unable to reach us at the number above,please feel free to contact [facility]iology at [phone]_ IDCSIACN Normal [facility] PROGRESSon 03-19-2017 PROGRESS HNO ID: [id number] thor: Sheri Banegas CnmtService: (none)Author Type: (none)Type: Progress NotesFiled: 03/19/2017 9:32 AMNote Text: RADIOLOGY SERVICE PROGRESS NOTESERVICE DATE: 03/19/2017SERVICE TIME: 8:33 AMPATIENT IDENTITY VERIFICATION COMPLETED USING TWO (2) METHODS: Patientconfirmed name and Date of verbally.PATIENT GENDER DATA: .femaleALLERGIES: Reviewed and unchangedMEDICATIONS REVIEWED: Not applicablePATIENT RELEVANT IMPLANT DATA REVIEWED: Not ApplicableCREATININE:Creati nineDate Value Ref Range Tzskrg8803/14/2017 0.59 0.58 - 0.96 mg/dL Final04/11/2016 0.56 (L) 0.58 - 0.96 mg/dL Final eGFR-All Other RacesDate Value Ref Range Pgtqwn2703/14/2017 >60 . FinalComment:eGFR (Estimated GFR) Units of measure: mL/min/1.73 meters squaredeGFR is derived from the reexpressed MDRD Study equation using thefollowingparameters: serum creatinine, age, gender and race. The creatinine assayhasbeen calibrated to be traceable to IDMS.An eGFR <60 mL/min/1.73m2 for >3 months is consistent with chronic kidneydisease. Refer to KDOQI guidelines for clinical interpretation.In patients with unstable renal function, e.g. those with acute kidneyinjury,the eGFR may not accurately reflect actual GFR. eGFR- AmericanDate Value Ref Range Zarmqq8803/14/2017 >60 Final Reference range (age 0-9 years) 0.30 - 1.00 mg/dl.Reference range (age 10-14 years) 0.30 - 1.20 mg/dl.Reference range (age 15-18 years) 0.40 - 1.30 mg/dl.Reference range (age 19-99 years) 0.70 - 1.40 mg/dl.DIAGNOSTIC CT PERFORMED: Yes. POCT RESULTS: POCT Creatinine Results: 0.59mg/dl and Q.C. = OK. done on 03/14/2017. CALCULATED GFR: greater than60 RADIOLOGIST NOTIFIED?: No CONTRAST ALLERGY: NO. PREMEDICATED:Not applicable CONTRAST: IV 150 ml IV contrast (300) given and Oralomnipaque 240 DIABETIC PATIENT: Not applicableIV SITE: Ambulatory: A peripheral IV was started in the Rightantecubital site with a Angio cath: 20 gauge.POST EXAM PIV STATUS: DiscontinuedPROCEDURE TYPE: CT Neck/Chest/Abdomen and Pelvis with contrastADMINISTRATION TIME: 0907PATIENT DISCHARGED TO: Ambulatory patient, left [place] department area.A Diagnostic radioactive procedure has taken place, with no furtherprecautions necessary other than routine body substance precautions. Moreinformation regarding radiation safety can be found using this link:[email or web address]%20Protection% 20-%20Diagnostic%20Nuclear% 20Medicine%20Procedures.pdf SIGNATURE: Sheri Banegas [facility] PATIENT NAME: Gladis WaltersATE: March 19, 2017 : 8:33 AM PAGER/CONTACT #: Normal [facility] Comp Metabolic Panelon 03-14 Alanine aminotransferase (ALT) 25 U/L Normal 7-38 [facility] Comment on above: Performed By: #### R ETIC, HREMOP, CMP, TSH, KLFRS, MPASRM, SEPG ####[facility] [address] [place], [place] [phone] Albumin 4.5 g/dL Normal 3.9-4.9 [facility] Comment on above: Performed By: #### R ETIC, HREMOP, CMP, TSH, KLFRS, MPASRM, SEPG ####[facility] [address] AveClevelGreg Ville [phone] Alkaline phosphatase (ALP) 60 U/L Normal 32-117 [facility] Comment on above: Performed By: #### R ETIC, HREMOP, CMP, TSH, KLFRS, MPASRM, SEPG ####[facility]CSavannah [place] [phone] Anion gap 14 mmol/L Normal 9-18 [facility] Comment on above: Performed By: #### R ETIC, HREMOP, CMP, TSH, KLFRS, MPASRM, SEPG ####[place] [address]CSav[address] [place] [phone] Aspartate aminotransferase (AST) 18 U/L Normal 13-35 [facility] Comment on above: Performed By: #### R ETIC, HREMOP, CMP, TSH, KLFRS, MPASRM, SEPG ####[facility]CS[address] [place] [phone] Bilirubin (total) 0.7 mg/dL Normal 0.2-1.3 [facility] Comment on above: Performed By: #### R ETIC, HREMOP, CMP, TSH, KLFRS, MPASRM, SEPG ####[facility]CS[address] [place] [phone] Calcium 9.5 mg/dL Normal 8.5-10.2 [facility] Comment on above: Performed By: #### R ETIC, HREMOP, CMP, TSH, KLFRS, MPASRM, SEPG ####[place] [id number]CSav[address] [place] [phone] Chloride 97 mmol/L Normal 97-105 [facility] Comment on above: Performed By: #### R ETIC, HREMOP, CMP, TSH, KLFRS, MPASRM, SEPG ####[facility] [place] [phone] CO2 25 mmol/L Normal 22-30 [facility] Comment on above: Performed By: #### R ETIC, HREMOP, CMP, TSH, KLFRS, MPASRM, SEPG ####[facility] [place] [phone] Creatinine 0.59 mg/dL Normal 0.58-0.96 [facility] Comment on above: Performed By: #### R ETIC, HREMOP, CMP, TSH, KLFRS, MPASRM, SEPG ####[facility]CS[address] [place] [phone] eGFR (non-black) mL/min/{1.73_m2} Normal [facility] Comment on above: Result Comment: eGFR (Estimated GFR) Units of measure: mL/min/1.73 meters squaredeGFR is derived from the reexpressed MDRD Study equation using the following parameters: serum creatinine, age, gender and race. The creatinine assay has been calibrated to be traceable to IDMS.An eGFR <60 mL/min/1.73m2 for >3 months is consistent with chronic kidney disease. Refer to KDOQI guidelines for clinical interpretation.In patients with unstable renal function, e.g. those with acute kidney injury, the eGFR may not accurately reflect actual GFR. Performed By: #### R ETIC, HREMOP, CMP, TSH, KLFRS, MPASRM, SEPG ####[facility]CS[address] [place] [phone] Glucose mass conc 126 mg/dL High 74-99 [facility] Comment on above: Result Comment: The [place] Diabetes Association (ADA) provides guidance for cutoff values for fasting glucose and random glucose. The ADA defines fasting as no caloric intake for at least 8 hours. Fasting plasma glucose results between 100 to 125 mg/dL indicate increased risk for diabetes (prediabetes).Fasting plasma glucose results greater than or equal to 126 mg/dL meet the criteria for diagnosis of diabetes. In the absence of unequivocal hyperglycemia, results should be confirmed by repeat testing. In a patient with classic symptoms of hyperglycemia or hyperglycemic crisis, random plasma glucose results greater than or equal to 200 mg/dL meet the criteria for diagnosis of diabetes.Reference: Standards of Medical Care in Diabetes 2016, [place] [employer] Association. Diabetes Care. 2016.39(Suppl 1). Performed By: #### R ETIC, HREMOP, CMP, TSH, KLFRS, MPASRM, SEPG ####[facility] [address], [place] [phone] Potassium molar conc 4.3 mmol/L Normal 3.7-5.1 [facility] Comment on above: Performed By: #### R ETIC, HREMOP, CMP, TSH, KLFRS, MPASRM, SEPG ####[facility], [place] [phone] Protein 8.4 g/dL High 6.3-8.0 [facility] Comment on above: Performed By: #### R ETIC, HREMOP, CMP, TSH, KLFRS, MPASRM, SEPG ####[facility], [place] [phone] Sodium 136 mmol/L Normal 136-144 [facility] Comment on above: Performed By: #### R ETIC, HREMOP, CMP, TSH, KLFRS, MPASRM, SEPG ####[facility], [place] [phone] Urea nitrogen 10 mg/dL Normal 7-21 [facility] Comment on above: Performed By: #### R ETIC, HREMOP, CMP, TSH, KLFRS, MPASRM, SEPG ####[facility], [place] [phone] Hepatitis Remote Panelon BSA (Body Surface Area) Negative Normal Negative [facility] Comment on above: Performed By: #### R ETIC, HREMOP, CMP, TSH, KLFRS, MPASRM, SEPG ####[facility] [place] [phone] Hep B Core Ab,Total Negative Normal Negative [facility] Comment on above: Performed By: #### R ETIC, HREMOP, CMP, TSH, KLFRS, MPASRM, SEPG ####[facility] [place] [phone] Hepatitis C Ab IA Negative Normal Negative [facility] Comment on above: Performed By: #### R ETIC, HREMOP, CMP, TSH, KLFRS, MPASRM, SEPG ####[facility] [place] [phone] HepB Surface Ab,Qual Negative Normal Negative [facility] Comment on above: Result Comment: NEGA TIVE Performed By: #### R ETIC, HREMOP, CMP, TSH, KLFRS, MPASRM, SEPG ####[facility]CS[address] [place] [phone] Brandon/Cope,Free,Seron 2016 K/L Ratio, Serum 1.99 High 0.26-1.65 [facility] Comment on above: Performed By: #### R ETIC, HREMOP, CMP, TSH, KLFRS, MPASRM, SEPG ####[facility] [place] [phone] Brandon, Free, Serum 32.8 mg/L High 3.30-19.40 [facility] Comment on above: Result Comment: Rare ly, increased serum free light chains values may not be detected due to antigen excess phenomenon. Results should always be correlated with other laboratory results and clinical findings. Performed By: #### R ETIC, HREMOP, CMP, TSH, KLFRS, MPASRM, SEPG ####[facility] [place] [phone] Lambda, Free, Serum 16.5 mg/L Normal 5.7-26.3 [facility] Comment on above: Result Comment: Rare ly, increased serum free light chains values may not be detected due to antigen excess phenomenon. Results should always be correlated with other laboratory results and clinical findings. Performed By: #### R ETIC, HREMOP, CMP, TSH, KLFRS, MPASRM, SEPG ####[facility] [place] [phone] Monoclonl Protein,Blon 03-14 MPA Parminder/Milner Ratio 2.08 Normal 1-3 [facility] Comment on above: Performed By: #### R ETIC, HREMOP, CMP, TSH, KLFRS, MPASRM, SEPG ####[place] [address] [address] [place] [phone] MPA Result No M protein is identified. Normal No M protein is identified. [facility] Comment on above: Performed By: #### R ETIC, HREMOP, CMP, TSH, KLFRS, MPASRM, SEPG ####[place] [address] [address] [place] [phone] [facility] Serum IgA 173 mg/dL Normal 78-391 [facility] Comment on above: Performed By: #### R ETIC, HREMOP, CMP, TSH, KLFRS, MPASRM, SEPG ####[place] [address] [place] [phone] MPA Serum IgG 1650 mg/dL High 717-1411 [facility] Comment on above: Performed By: #### R ETIC, HREMOP, CMP, TSH, KLFRS, MPASRM, SEPG ####[place] [phone]CS[address] [place] [phone] MPA Serum IgM 186 mg/dL Normal 53-334 [facility] Comment on above: Performed By: #### R ETIC, HREMOP, CMP, TSH, KLFRS, MPASRM, SEPG ####[facility] AveClevelHarrisonville, [place] [phone] Serum Brandon 1540 mg/dL High [phone] [facility] Comment on above: Performed By: #### R ETIC, HREMOP, CMP, TSH, KLFRS, MPASRM, SEPG ####[facility]leveland[address], [place] [phone] Serum Lambda 740 mg/dL High 253-653 [facility] Comment on above: Performed By: #### R ETIC, HREMOP, CMP, TSH, KLFRS, MPASRM, SEPG ####[facility]levelH[address], [place] [phone] Staff Review Reviewed by Delores Means MD ([id number]) Normal [facility] Comment on above: Performed By: #### R ETIC, HREMOP, CMP, TSH, KLFRS, MPASRM, SEPG ####[facility], [place] [phone] PB LG LEUK MARKERSon 017 PB LG LEUK MARKERS Account Credited Normal [facility] Comment on above: Result Comment: BIPIN NOE PER STAFF REVIEW. FE [id number] available in [facility] under the Surgical Pathology Test listed in the Laboratory Tab. Performed By: #### L D6 ####[facility], [place] [phone] WBC (Leukocytes) 13.38 10*3/uL High 3.70-11.00 [facility] Comment on above: Performed By: #### L D6 ####[place] [id number], [place] [phone] Protein Electrophor.on 03-14 Albumin 3.76 g/dL Normal 3.37-4.23 [facility] Comment on above: Performed By: #### L D6 ####[place] [id number], [place] [phone] Alpha 1 Globulin 0.19 gm/dL Normal 0.18-0.31 [facility] Comment on above: Performed By: #### L D6 ####[place] [phone] Alpha 2 Globulin 0.90 gm/dL Normal 0.52-0.97 [facility] Comment on above: Performed By: #### L D6 ####[place] [phone] Beta Globulin 1.15 gm/dL Normal 0.84-1.36 [facility] Comment on above: Performed By: #### L D6 ####[place] [phone] Gamma Globulin 1.80 gm/dL High 0.70-1.44 [facility] Comment on above: Performed By: #### L D6 ####[place] [phone] Interpretation SEE COMMENT [facility] Comment on above: Result Comment: An a typical region of restricted mobility is identified on protein electrophoresis.The atypical region did not stain on accompanying immunofixation and therefore is unlikely to be a monoclonal immunoglobulin. Performed By: #### L D6 ####[place] [phone] M Protein Location N/A Normal [facility] Comment on above: Performed By: #### L D6 ####[place] [phone] M Ja Concentratn 0.00 gm/dL Normal 0.00 [facility] Comment on above: Performed By: #### L D6 ####[place] [phone] SPE Staff Review Reviewed by Delores Means MD ([id number]) [facility] Comment on above: Performed By: #### L D6 ####[facility] [address] [place], [place] [phone] Total Protein, SPE 7.8 g/dL Normal 6.0-8.4 [facility] Comment on above: Performed By: #### L D6 ####[facility] [address] [place], [place] [phone] Remote CBCDIF (for [facility] use o nly)on 03-14-2017 Abs Baso 0.14 k/uL High 0.00-0.10 [facility] Abs [place] 0.66 k/uL Normal 0.00-0.86 [facility] Abs Neut 10.25 k/uL High 1.45-7.50 [facility] Basophils/100 WBC Auto (Bld) 1.1 % Normal [facility] Eosinophils 0.08 10*3/uL Normal 0.00-0.45 [facility] Eosinophils/100 leukocytes 0.6 % Normal [facility] Erythrocyte distribution width Auto Ratio (RBC) 14.0 % Normal 11.5-15.0 [facility] Erythrocytes (RBC) 5.12 10*6/uL Normal 3.90-5.20 [facility] Hematocrit (HCT) 42.5 % Normal 36.0-46.0 [facility] Hemoglobin mass conc (Bld) 14.1 g/dL Normal 11.5-15.5 [facility] Lymphocytes 1.98 10*3/uL Normal 1.00-4.00 [facility] Lymphocytes/100 leukocytes 15.1 % Normal [facility] MCH 27.5 pG Normal 26.0-34.0 [facility] MCHC mass conc (RBC) 33.2 g/dL Normal 30.5-36.0 [facility] MCV 83.0 fL Normal 80.0-100.0 [facility] Monocytes/100 leukocytes 5.0 % Normal [facility] Neutrophils/100 WBC Auto (Bld) 78.2 % Normal [facility] Platelet mean volume (PMV) 9.6 fL Normal 9.0-12.7 [facility] Platelets 609 10*3/uL High 150-400 [facility] WBC (Leukocytes) 13.11 10*3/uL High 3.70-11.00 [facility] Reticulocyteon 03-14-2017 Abs Retic 0.073 M/uL Normal 0.0180-0.10 00 [facility] Comment on above: Performed By: #### R ETIC, HREMOP, CMP, TSH, KLFRS, MPASRM, SEPG ####[facility] [address], [place] [phone] Retic% 1.4 % Normal 0.4-2.0 [facility] Comment on above: Performed By: #### R ETIC, HREMOP, CMP, TSH, KLFRS, MPASRM, SEPG ####[facility], [place] [phone] TSHon 03-14-2017 Thyroid stimulating hormone (TSH) 0.537 uU/mL Normal 0.400-5.500 [facility] Comment on above: Result Comment: If t he patient is , TSH reference range varies by gestational period:First Trimester 0.100-2.500 uU/mLSecond Trimester 0.200-3.000 uU/mLThird Trimester 0.300-3.000 uU/mLReferences: 1. Sutton L, Delfina M, Anders EK, et al. Management of Thyroid Dysfunction during and : An Endocrine Society Clinical Practice Guideline. J Clin Endocrinol Metab, 2012:97:2930-8036. 2. Conor ROSAS. Overview of thyroid disease in . UpToDate. 2016. Accessed on November 24, 2015. Performed By: #### R ETIC, HREMOP, CMP, TSH, KLFRS, MPASRM, SEPG ####[facility] [place], [place] [phone] CNOVSPon 03-13-2017 CNOVSP Visit (SP) Office ([facility]) -------GLADIS MICHAEL ([id number]) 1975 FDate Time Provider Pwlyeqbvkz50/5/17 10:00 AM ISAAC SHELTON During your visit today, we recorded the following information about you: Temperature Pulse Respiration Blood pressure 99 degrees 96/minute 18/minute 143/93 Weight Height 103.5 kg 1.6 Kassidy Shelton DO 03/14/2017 2:41 PM SignedPATIENT NAME: Gladis Frances AmandaFlorianRN: [id number] PHYSICIAN: Joseph Harris DO[address] [place] [phone] CARE PHYSICIAN: MASOOD Rubin PHYSICIANS:CHIEF COMPLAINT: Lymphocytosis (primary encounter diagnosis)ASSESSMENT/PLAN:1 . LymphocytosisAbsolute lymphocytosis - BCR ABL and flow cytometry negative in April 2016.Paraprotein evaluation reveals slight IgG Level M spike quantitative is 0.16.No other diagnostic abnormalities. 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 For extreme low level of Mprotein and the immunofixation report which states that the bands are ratherfaint, we will continue to monitor onlyNegative JAK2 MutationWe were comfortable monitoring her disease until she started to feel terriblein February 2017. She has multiple nonspecific complaints none of whichdirectly seem like a B symptom or a symptom of leukemia or lymphoma. Despitethis and her right neck fullness although there is no objective adenopathy permy examination I have offered her a CAT scan of the chest abdomen and pelvis.She will follow-up afterwards to discuss whether or not a bone marrow biopsywill yield any additional diagnostic information.Of note, her mother has JAK2 positive disease.LDH and sedimentation rate within normal limits.(D72.820) Lymphocytosis (primary encounter diagnosis)Visit (SP) Office on 03/13/17-CT ABD/PEL W IVCON-CT CHEST W IVCON-CT NECK SOFT TISSUE W IVCON-PERIPHERAL BLOOD LOW GRADE LEUK MARKERS FC-STAFF REVIEW WITH CBC AND DIFF-COMP METABOLIC PANEL-TSH BLD-RETIC COUNT-PROTEIN ELECTROPHORESIS W/INTERP-CBC + DIFF (FOR REMOTE [facility] USE)-KAPPA/COPE,FREE,SER-MO NOCLONAL PROT BLD W/INTERP-HEP REMOTE PANEL BL-iv contrast (radiology procedure)-enteric contrast (radiology procedure)-iv contrast (radiology procedure) No Follow-up on file. 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.Past medical history heart palpitations, hypertension, trace mitralregurgitation, ovarian cysts, anxiety, chronic lymphocytosis.Lisinopril 2.5 mg tablet, pindolol 5 mg 1 by mouth twice a day.Former smokerRecent CBC from 03/23/16 shows white blood cell count of 13.0 with absoluteneutrophil count of 9500 and absolute lymphocyte count of 2600.Previous CBC from January 2016 showed white blood cell count of 12.3 withelevated platelets of 482,000 and a normal hemoglobin with normal MCV of 85.9.Neutrophil percentage was 67% leaving an absolute neutrophil count of 8300.Recently had some chronic fatigue, nausea, lightheadedness, headaches.Laboratory from January 2016 was reviewed revealed normal liver and kidneyfunction, normal total protein and albumin, normal hemoglobin 13.4, normalkidney function, normal TSH.Family History.Mother has Jak2 positive essential thrombocytosis/polycythemia .Her sisters had similar disease.April 11, 2016 No night sweats,Initial consult today.No changes in weight.No early satiety.Some nausea for about the last year.BP has been elevated for about three weeks now.Had few ER visits at [place] last year for LUQ pain and had CT scans.04/29/16Patient has no new complaints. No night sweats, no weight changes, no feversweats or chills. Continues overall do well.February 06, 2017 doing good overall. Complains of increased fatigue.No other complaints. No fever/s/c. No night sweats.No lumps or bumps.Tired all the time.Some mild nausea after eating. LUQ pain still comes and goes. She also notessome darkening over her cheekbones intermittently below the area where darkcircles under eyes would tend to develop.March 13, 2017 Feb 24 she went to her PCP for Ear and throat pain. She had ANDquot;puspocketsANDquot; in her throat. She was given augmentin by Dr. Jose. Fever for5 days straight. Went to ER 02/26. [place] was negative, strep negative. Flunegative. She was placed on Azithromycin. Still not improving 03/02 went backto ER. She was vomiting and nausea with persistent fevers to 102. He put jennifer IV antiobiotic and sent script for Levaquin. She went back to ER 03/09/17.Again no obvious source of fevers. WBC 21K apparently.She hasnt had a fever since 03/07/17. She cant stand up without getting nausea,dizzy. She has severe sweats in the morning when she gets up get her daystarted. No night sweats. Apparently CXRs have been negative. She is snoringa lot. She never had any sinus complaints. Feels right side of her neck isswollen. Lost 12 lbs.Vitals: BP 143/93 Pulse 96 Temp (Src) 99 (Oral) Resp 18 Ht 5'2.992ANDquot; (1.60m) Wt 228 lb 3.2 oz (103.5kg) BMI 40.43 kg/(m2). Bodysurface area is 2.14 meters squared. REVIEW OF SYSTEMS PHYSICAL EXAM ECOG PS: NEGATIVES POSITIVES NEGATIVES POSITIVESGEN: fevers, sweats, chills. Overall feels well. extremely fatigued, seehistory of present illness dizzy. Sweats in the morning. GEN: Wellappearing, alert, in no acute distress, appears stated ageSKIN: lesions, rash, itching. SKIN: Normal color, texture, turgor, no rashesor lesionsHEENT: significant headaches, changes in hearing, changes in vision, nosebleeds. feels right side of her neck is swollen. Ear and throat pain.ENT: No scleral icterus. no specific adenopathy was palpated in her neck,supraclavicular area. NECK: Supple, no thyromegaly, no JVD.: dysuria, frequency or incontinence. LYMPH: No cervical, supraclavicular,axillary, inguinal adenopathy.RESP: dyspnea, cough, wheezing. LUNG: Clear to auscultation, no wheezing ralesor rhonchiCARD: chest pain, leg swelling, palpitations. HEART: Regular. No murmurs,gallop, or rubs. No ectopy.GI: abdominal pain, diarrhea, constipation, melena, hematochezia. seehistory of present illness for description of nausea vomiting and fevers.ABDM: Soft. Non-tender. Non-distended. Bowel sounds normal. No masses. Nohepatosplenomegaly.HEME: prolonged bleeding, bruising, adenopathy. EXT: No clubbing, cyanosisor edema.MUSC: joint pain or swelling. MUSC: No joint swelling, deformity, ortenderness.NEURO: syncope, seizures, peripheral numbness or tingling. BACK: Notenderness to palpation. No flank tenderness.MEDICATIONS:pind olol (VISKEN) 5 mg tablet Take 5 mg by mouth twice daily.sertraline (ZOLOFT) 50 mg tablet Take 50 mg by mouth once daily.lisinopril 2.5 mg tablet Take 2.5 mg by mouth once daily.ondansetron (ZOFRAN) 8 mg tablet Take 1 tablet by mouth every 8 hours as neededfor Nausea/Vomiting.iv contrast (radiology procedure) CT Chest ABD/PEL-Inject, intravenously, oncefor 1 dose.No IV access, insert saline lock prior to the beginning of sedation,infusion, injection of imaging exam. Discontinue saline lock post exam. If Pt.has a central line or IVAD, may access for administration according to linespecific nursing protocol. Once exam is complete flush line and de-accessaccording to line specific nursing protocol in the CT contrast administrationguidelines link.enteric contrast (radiology procedure) For CT CHESTABD/PEL W IVCON Routineorder Administer, As Directed One Time Only, via Oral, Rectal, both Oral andRectal, Enteric Tube, Stoma or Indwelling Catheter, Enteric Contrast asdesignated per enteric contrast guidelinesALLERGIES:ALLERGI ESAllergen Reactions- Toprol Xl [Metoprol* Other: See Comments ANDquot;heart racesANDquot; per patientPAST MEDICAL HISTORYDiagnosis Date- Anxiety- Hypertension- LeukocytosisPAST SURGICAL HISTORYProcedure Laterality Date- DELIVERY ONLY , low transverse- CHOLECYSTECTOMYNo family history on file.SOCIAL HISTORY:Social HistorySubstance Use Topics- Smoking status: Former Smoker- Smokeless tobacco: Never Used- Alcohol use NoLABS:RADIOLOGY/OTHER STUDIES:COUNSELING:I discussed with Gladis the natural history, treated course, and prognosisof Lymphocytosis (primary encounter diagnosis); my impression as well as therationale, logistics, risks, benefits, and alternatives to the managementoptions noted above; and my recommendations listed below. The patientElizabeth Frances Michael verbalized understanding and agreed with theserecommendations and plan. I answered all questions satisfactorily..Hai Shelton D.O.Medical OncologistNoCoffey, [place]Referring Provider: ISAAC SHELTON [[id number]]Allergies As of Date: 03/13/2017 Noted Allergy ReactionTOPROL XL (METOPROLOL) 04/11/2016 14 - Other: See Comments Comments: heart races per patientDate Reviewed: 03/13/2017Reviewed by: Merna Gudino - Fully AssessedReason for Visit: Lymphocytosis [Other] Cmt: follow upPrimary Visit Diagnosis:Lymphocytosis [D72.820]Order(s):CT ABD/PEL W IVCON [[id number]] Order #: [id number] FUTURE CT CHEST W IVCON [[id number]] Order #: [id number] FUTURE iv contrast (radiology procedure)CT Chest ABD/PEL-Inject, intravenously, once for 1 dose.No IV access, insert saline lock prior to the beginning of sedation, infusion, injection of imaging exam. Discontinue saline lock post exam. If Pt. has a central line or IVAD, may access for administration according to line specific nursing protocol. Once exam is complete flush line and de-access according to line specific nursing protocol in the CT contrast administration guidelines link.Disp: 1 EachRfl: 0 enteric contrast (radiology procedure)For CT CHESTABD/PEL W IVCON Routine order Administer, As Directed One Time Only, via Oral, Rectal, both Oral and Rectal, Enteric Tube, Stoma or Indwelling Catheter, Enteric Contrast as designated per enteric contrast guidelinesDisp: 1 EachRfl: 0 CT NECK SOFT TISSUE W IVCON [[id number]] Order #: [id number] FUTURE [] iv contrast (radiology procedure)Inject 1 Each intravenously one time only for [address] Neck W IVCON No IV access, insert saline lock prior to the sedation, infusion, injection for imaging exam. Discontinue saline lock post exam. If Pt. has a central line or IVAD, may access for administration according to line specific nursing protocol. Once exam is complete flush line and de-access according to line specific nursing protocol in the CT contrast administration guidelines link.Disp: 1 EachRfl: 0 PERIPHERAL BLOOD LOW GRADE LEUK MARKERS FC [SQPBLGLY] Order #: [id number] FUTURE STAFF REVIEW WITH CBC AND DIFF [SQSTREV] Order #: [id number]. #:[id number] COMP METABOLIC PANEL [SQCMP] Order #: [id number] FUTURE TSH BLD [SQTSH] Order #: [id number] FUTURE RETIC COUNT [SQRETIC] Order #: [id number] FUTURE PROTEIN ELECTROPHORESIS W/INTERP [SQSEPG] Order #: [id number] FUTURE CBC + DIFF (FOR REMOTE [facility] USE) [SQRCBCDF] Order #: [id number] FUTURE KAPPA/COPE,FREE,SER [SQKLFRS] Order #: [id number] FUTURE MONOCLONAL PROT BLD W/INTERP [SQMPASRM] Order #: [id number] FUTURE HEP REMOTE PANEL BL [SQHREMOP] Order #: [id number] FUTUREPrescriptions as of 03/13/2017 Sig: PINDOLOL 5 MG TABLET Take 5 mg by mouth twice kwasi* SERTRALINE 50 MG TABLET Take 50 mg by mouth once kwasi* LISINOPRIL 2.5 MG TABLET Take 2.5 mg by mouth once buck* IV CONTRAST (RADIOLOGY PROCED* CT Chest ABD/PEL-Inject, intr* ENTERIC CONTRAST (RADIOLOGY P* For CT CHESTABD/PEL W IVCON R* IV CONTRAST (RADIOLOGY PROCED* Inject 1 Each intravenously o*Problem List As Of Date 03/13/2017 Noted Resolved Lymphocytosis [D72.820] INVALID FOR*Encounter Status:Closed by ISAAC SHELTON DO on 03/14/17 [facility] 164 U/L Normal 135-214 [facility] Comment on above: Performed By: #### L D6 ####[facility] [address] [place], [place] [phone] PROGRESSon 03-13-2017 PROGRESS HNO ID: [id number] thor: Isaac Carrasco: (none)Author Type: PhysicianType: Progress NotesFiled: 03/14/2017 2:41 PMNote Text:PATIENT NAME: Gladis PatelarMRN: [id number] PHYSICIAN: [place] [address]GQLYOIB CARE PHYSICIAN: MASOOD Rubin PHYSICIANS:CHIEF COMPLAINT: Lymphocytosis (primary encounter diagnosis)ASSESSMENT/PLAN:1 . LymphocytosisAbsolute lymphocytosis - BCR ABL and flow cytometry negative in April2016. Paraprotein evaluation reveals slight IgG Level M spikequantitative is 0.16. No other diagnostic abnormalities. At this pointwe are considering this a monoclonal gammopathy of undeterminedsignificance. For extreme low level of M protein and the immunofixationreport which states that the bands are rather faint, we will continue tomonitor onlyNegative JAK2 MutationWe were comfortable monitoring her disease until she started to feelterrible in February 2017. She has multiple nonspecific complaints noneof which directly seem like a B symptom or a symptom of leukemia orlymphoma. Despite this and her right neck fullness although there is noobjective adenopathy per my examination I have offered her a CAT scan ofthe chest abdomen and pelvis. She will follow-up afterwards to discusswhether or not a bone marrow biopsy will yield any additional diagnosticinformation.Of note, her mother has JAK2 positive disease.LDH and sedimentation rate within normal limits.(D72.820) Lymphocytosis (primary encounter diagnosis)Visit (SP) Office on 03/13/17-CT ABD/PEL W IVCON-CT CHEST W IVCON-CT NECK SOFT TISSUE W IVCON-PERIPHERAL BLOOD LOW GRADE LEUK MARKERS FC-STAFF REVIEW WITH CBC AND DIFF-COMP METABOLIC PANEL-TSH BLD-RETIC COUNT-PROTEIN ELECTROPHORESIS W/INTERP-CBC + DIFF (FOR REMOTE [facility] USE)-KAPPA/HAILEE,THAO,SER-MO NOCLONAL PROT BLD W/INTERP-HEP REMOTE PANEL BL-iv contrast (radiology procedure)-enteric contrast (radiology procedure)-iv contrast (radiology procedure) No Follow-up on file. 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 Neutrophil percentage was 67% leaving an absolute neutrophil countof 8300.Recently had some chronic fatigue, nausea, lightheadedness, headaches.Laboratory from January 2016 was reviewed revealed normal liver and kidneyfunction, normal total protein and albumin, normal hemoglobin 13.4, normalkidney function, normal TSH.Family History.Mother has Jak2 positive essential thrombocytosis/polycythemia .Her sisters had similar disease.April 11, 2016 No night sweats,Initial consult today.No changes in weight.No early satiety.Some nausea for about the last year.BP has been elevated for about three weeks now.Had few ER visits at [place] last year for LUQ pain and had CT scans.04/29/16Patient has no new complaints. No night sweats, no weight changes, nofever sweats or chills. Continues overall do well.February 06, 2017 doing good overall. Complains of increased fatigue.No other complaints. No fever/s/c. No night sweats.No lumps or bumps.Tired all the time.Some mild nausea after eating. LUQ pain still comes and goes. She alsonotes some darkening over her cheekbones intermittently below the areawhere dark circles under eyes would tend to develop.March 13, 2017 Feb 24 she went to her PCP for Ear and throat pain. She had puspockets in her throat. She was given augmentin by Dr. Jose. Fever for5 days straight. Went to ER 02/26. [place] was negative, strep negative.Flu negative. She was placed on Azithromycin. Still not improving 03/02went back to ER. She was vomiting and nausea with persistent fevers to102. He put her on IV antiobiotic and sent script for Levaquin. She wentback to ER 03/09/17. Again no obvious source of fevers. WBC 21Kapparently.She hasnt had a fever since 03/07/17. She cant stand up without gettingnausea, dizzy. She has severe sweats in the morning when she gets up gether day started. No night sweats. Apparently CXRs have been negative.She is snoring a lot. She never had any sinus complaints. Feels rightside of her neck is swollen. Lost 12 lbs.Vitals: BP 143/93 Pulse 96 Temp (Src) 99 (Oral) Resp 18 Ht 5'2.992 (1.60m) Wt 228 lb 3.2 oz (103.5kg) BMI 40.43 kg/(m2). Bodysurface area is 2.14 meters squared. REVIEW OF SYSTEMS PHYSICAL EXAM ECOG PS: NEGATIVES POSITIVES NEGATIVES POSITIVESGEN: fevers, sweats, chills. Overall feels well. extremely fatigued,see history of present illness dizzy. Sweats in the morning. GEN: Wellappearing, alert, in no acute distress, appears stated ageSKIN: lesions, rash, itching. SKIN: Normal color, texture, turgor, norashes or lesionsHEENT: significant headaches, changes in hearing, changes in vision, nosebleeds. feels right side of her neck is swollen. Ear and throat pain. ENT: No scleral icterus. no specific adenopathy was palpated in herneck, supraclavicular area. NECK: Supple, no thyromegaly, no JVD.: dysuria, frequency or incontinence. LYMPH: No cervical,supraclavicular, axillary, inguinal adenopathy.RESP: dyspnea, cough, wheezing. LUNG: Clear to auscultation, no wheezingrales or rhonchiCARD: chest pain, leg swelling, palpitations. HEART: Regular. Nomurmurs, gallop, or rubs. No ectopy.GI: abdominal pain, diarrhea, constipation, melena, hematochezia.see history of present illness for description of nausea vomiting andfevers. ABDM: Soft. Non-tender. Non-distended. Bowel sounds normal.No masses. No hepatosplenomegaly.HEME: prolonged bleeding, bruising, adenopathy. EXT: No clubbing,cyanosis or edema.MUSC: joint pain or swelling. MUSC: No joint swelling, deformity, ortenderness.NEURO: syncope, seizures, peripheral numbness or tingling. BACK: Notenderness to palpation. No flank tenderness.MEDICATIONS:pind olol (VISKEN) 5 mg tablet Take 5 mg by mouth twice daily.sertraline (ZOLOFT) 50 mg tablet Take 50 mg by mouth once daily.lisinopril 2.5 mg tablet Take 2.5 mg by mouth once daily.ondansetron (ZOFRAN) 8 mg tablet Take 1 tablet by mouth every 8 hours asneeded for Nausea/Vomiting.iv contrast (radiology procedure) CT Chest ABD/PEL-Inject, intravenously,once for 1 dose.No IV access, insert saline lock prior to the beginning ofsedation, infusion, injection of imaging exam. Discontinue saline lockpost exam. If Pt. has a central line or IVAD, may access foradministration according to line specific nursing protocol. Once exam iscomplete flush line and de-access according to line specific nursingprotocol in the CT contrast administration guidelines link.enteric contrast (radiology procedure) For CT CHESTABD/PEL W IVCON Routineorder Administer, As Directed One Time Only, via Oral, Rectal, both Oraland Rectal, Enteric Tube, Stoma or Indwelling Catheter, Enteric Contrastas designated per enteric contrast guidelinesALLERGIES:ALLERGI ESAlladithya Reactions- Toprol Xl [Metoprol* Other: See Comments heart races per patientPAST MEDICAL HISTORYDiagnosis Date- Anxiety- Hypertension- LeukocytosisPAST SURGICAL HISTORYProcedure Laterality Date- DELIVERY ONLY , low transverse- CHOLECYSTECTOMYNo family history on file.SOCIAL HISTORY:Social HistorySubstance Use Topics- Smoking status: Former Smoker- Smokeless tobacco: Never Used- Alcohol use NoLABS:RADIOLOGY/OTHER STUDIES:COUNSELING:I discussed with Gladis the natural history, treated course, andprognosis of Lymphocytosis (primary encounter diagnosis); my impressionas well as the rationale, logistics, risks, benefits, and alternatives tothe management options noted above; and my recommendations listed below.The patient Gladis Michael verbalized understanding and agreed withthese recommendations and plan. I answered all questions satisfactorily..Hai Shelton D.O.Medical OncologistMarquette, [place] Normal [facility] Remote Abs Gran + CBC (for F HC use only)on 03-13-2017 Absol Gran Count 10.95 k/uL High 1.45-7.50 [facility] Erythrocyte distribution width Auto Ratio (RBC) 14.0 % Normal 11.5-15.0 [facility] Erythrocytes (RBC) 5.04 10*6/uL Normal 3.90-5.20 [facility] Hematocrit (HCT) 41.8 % Normal 36.0-46.0 [facility] Hemoglobin mass conc (Bld) 14.0 g/dL Normal 11.5-15.5 [facility] MCH 27.8 pG Normal 26.0-34.0 [facility] MCHC mass conc (RBC) 33.5 g/dL Normal 30.5-36.0 [facility] MCV 82.9 fL Normal 80.0-100.0 [facility] Platelet mean volume (PMV) 9.3 fL Normal 9.0-12.7 [facility] Platelets 592 10*3/uL High 150-400 [facility] WBC (Leukocytes) 14.22 10*3/uL High 3.70-11.00 [facility] Staff Rev w CBCDIFon 017 Abs Baso 0.20 k/uL High <0.11 [facility] Comment on above: Performed By: #### S PUMA ####[facility] [address] [place], [place] [phone] Abs [place] 0.76 k/uL Normal <0.87 [facility] Comment on above: Performed By: #### S PUMA ####[place] [address] [address], [place] [phone] Abs Neut 11.19 k/uL High 1.45-7.50 [facility] Comment on above: Performed By: #### S PUMA ####[place] [address] [address] [place] [phone] Basophils/100 WBC Auto (Bld) 1.4 % Normal [facility] Comment on above: Performed By: #### S PUMA ####[address] [place] [phone] Diff Comments SEE COMMENT Normal [facility] Comment on above: Result Comment: See Staff Review Performed By: #### S PUMA ####[place] [address] [address] [phone] Eosinophils 0.09 10*3/uL Normal <0.46 [facility] Comment on above: Performed By: #### S PUMA ####[place] [address] [address] [phone] Eosinophils/100 leukocytes 0.6 % Normal [facility] Comment on above: Performed By: #### S PUMA ####[place] [address] [address] [phone] Erythrocyte distribution width Auto Ratio (RBC) 13.6 % Normal 11.5-15.0 [facility] Comment on above: Performed By: #### S PUMA ####[place] [address] [address] [place] [phone] Erythrocytes (RBC) 5.19 10*6/uL Normal 3.90-5.20 [facility] Comment on above: Performed By: #### S PUMA ####[place] [address] [address] [place] [phone] Hematocrit (HCT) 45.0 % Normal 36.0-46.0 [facility] Comment on above: Performed By: #### S PUMA ####[place] [phone] Hemoglobin mass conc (Bld) 14.1 g/dL Normal 11.5-15.5 [facility] Comment on above: Performed By: #### S PUMA ####[place] [phone] Lymphocytes 2.42 10*3/uL Normal 1.00-4.00 [facility] Comment on above: Performed By: #### S PUMA ####[place] [phone] Lymphocytes/100 leukocytes 16.5 % Normal [facility] Comment on above: Performed By: #### S PUMA ####[place] [phone] MCH 27.2 pG Normal 26.0-34.0 [facility] Comment on above: Performed By: #### S PUMA ####[place] [phone] MCHC mass conc (RBC) 31.3 g/dL Normal 30.5-36.0 [facility] Comment on above: Performed By: #### S PUMA ####[place] [phone] MCV 86.7 fL Normal 80.0-100.0 [facility] Comment on above: Performed By: #### S PUMA ####[place] [phone] Monocytes/100 leukocytes 5.2 % Normal [facility] Comment on above: Performed By: #### S PUMA ####[place] [phone] Neutrophils/100 WBC Auto (Bld) 76.3 % Normal [facility] Comment on above: Performed By: #### S PUMA ####[place] [id number] [place], [place] [phone] Pathologist (cervix/vaginal) Reviewed by Karon Levin DO ([id number]) Normal [facility] Comment on above: Performed By: #### S PUMA ####[address] [phone] Platelet mean volume (PMV) 10.0 fL Normal 9.0-12.7 [facility] Comment on above: Performed By: #### S PUMA ####[place] [id number] [place], [place] [phone] Platelets 622 10*3/uL High 150-400 [facility] Comment on above: Performed By: #### S PUMA ####[address] [phone] Red Cell Morph SEE COMMENT Normal [facility] Comment on above: Result Comment: Unre markable Performed By: #### S PUMA ####[facility] [place], [place] [phone] Staff Review SEE COMMENT Normal [facility] Comment on above: Result Comment: Neut rophilic Leukocytosis Without Left ShiftThrombocytosis Performed By: #### S PUMA ####[facility] [place], [place] [phone] WBC (Leukocytes) 14.66 10*3/uL High 3.70-11.00 [facility] Comment on above: Performed By: #### S PUMA ####[facility] [place], [place] [phone] CNOVSPon 02-06-2017 CNOVSP Visit (SP) Office ([place]) -------MIKGLADIS Frances ([id number]) 1975 FDate Time Provider Department02/06/17 11:15 AM ISAAC SHELTON During your visit today, we recorded the following information about you: Temperature Pulse Respiration Blood pressure 98.6 degrees 66/minute 16/minute 161/102 Weight Height 108.6 kg 1.6 Kassidy Shelton DO 02/07/2017 12:59 AM SignedPATIENT NAME: Gladis PatelFlorianRN: [id number] PHYSICIAN: Joseph Harris DO[address] [facility] [phone] CARE PHYSICIAN: MASOOD Rubin PHYSICIANS:CHIEF COMPLAINT: Lymphocytosis (primary encounter diagnosis)ASSESSMENT/PLAN:1 . LymphocytosisAbsolute lymphocytosis - BCR ABL and flow cytometry negative in April 2016.Paraprotein evaluation reveals slight IgG Level M spike quantitative is 0.16.No other diagnostic abnormalities. 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 For extreme low level of Mprotein and the immunofixation report which states that the bands are ratherfaint, we will continue to monitor onlyDiscussed today whether or not we should proceed with a bone marrow biopsyand/or systemic imaging. The patient has no symptoms whatsoever and would liketo monitor only for now on this is reasonable. She will follow-up with me in 4months and we will reevaluateather faint, we will continue to monitor onlyConsidered viral etiology but no workup will be done in absence of symptoms.We'll check JAK2 mutation, as she has persistently elevated platelets andwhite blood cells and her mother has JAK2 positive disease.LDH and sedimentation rate within normal limits.(D72.820) Lymphocytosis (primary encounter diagnosis)Visit (SP) Office on 02/06/17-JAK2 V617F MUTATION Return in about 6 months (around 08/06/2017), or jak2 lab today. f/u in 6months. she will call and we will discuss results on phone.. --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.Past medical history heart palpitations, hypertension, trace mitralregurgitation, ovarian cysts, anxiety, chronic lymphocytosis.Lisinopril 2.5 mg tablet, pindolol 5 mg 1 by mouth twice a day.Former smokerRecent CBC from 03/23/16 shows white blood cell count of 13.0 with absoluteneutrophil count of 9500 and absolute lymphocyte count of 2600.Previous CBC from January 2016 showed white blood cell count of 12.3 withelevated platelets of 482,000 and a normal hemoglobin with normal MCV of 85.9.Neutrophil percentage was 67% leaving an absolute neutrophil count of 8300.Recently had some chronic fatigue, nausea, lightheadedness, headaches.Laboratory from January 2016 was reviewed revealed normal liver and kidneyfunction, normal total protein and albumin, normal hemoglobin 13.4, normalkidney function, normal TSH.Family History.Mother has Jak2 positive essential thrombocytosis/polycythemia .Her sisters had similar disease.April 11, 2016 No night sweats,Initial consult today.No changes in weight.No early satiety.Some nausea for about the last year.BP has been elevated for about three weeks now.Had few ER visits at [place] last year for LUQ pain and had CT scans.04/29/16Patient has no new complaints. No night sweats, no weight changes, no feversweats or chills. Continues overall do well.February 06, 2017 doing good overall. Complains of increased fatigue.No other complaints. No fever/s/c. No night sweats.No lumps or bumps.Tired all the time.Some mild nausea after eating. LUQ pain still comes and goes. She also notessome darkening over her cheekbones intermittently below the area where darkcircles under eyes would tend to develop. COMPLETE REVIEW OF SYSTEMS: NEGATIVES POSITIVESGEN: fevers, sweats, chills. Overall feels well. persistent and potentiallyincreased fatigue.HEENT: significant headaches, changes in hearing, changes in vision, nosebleeds.RESP: dyspnea, cough, wheezing.CARD: chest pain, leg swelling, palpitations.GI: abdominal pain, vomiting, diarrhea, constipation, melena,hematochezia. Nausea chronic for a year or more. Occasional LUQ pain.: dysuria, frequency or incontinence.MUSC: joint pain or swelling.SKIN: lesions, rash, itching. see history of present illnessHEME: prolonged bleeding, bruising, adenopathy.NEURO: syncope, seizures, peripheral numbness or tingling.MEDICATIONS:pindol ol (VISKEN) 5 mg tablet Take 5 mg by mouth twice daily.sertraline (ZOLOFT) 50 mg tablet Take 50 mg by mouth once daily.lisinopril 2.5 mg tablet Take 2.5 mg by mouth once daily.ALLERGIES:ALLERGIESAl lergen Reactions- Toprol Xl [Metoprol* Other: See Comments ANDquot;heart racesANDquot; per patientPAST MEDICAL HISTORYDiagnosis Date- Anxiety- Hypertension- LeukocytosisPAST SURGICAL HISTORYProcedure Laterality Date- DELIVERY ONLY , low transverse- CHOLECYSTECTOMYHistory reviewed. No pertinent family history.SOCIAL HISTORY:Social HistorySubstance Use Topics- Smoking status: Former Smoker- Smokeless tobacco: Never Used- Alcohol use NoPHYSICAL EXAM:Vitals: BP 161/102 Pulse 66 Temp (Src) 98.6 (Oral) Resp 16 Ht 5'2.992ANDquot; (1.60m) Wt 239 lb 6.4 oz (108.6kg) BMI 42.42 kg/(m2). Bodysurface area is 2.2 meters squared.ECOG PS: 0GEN: Well appearing, alert, in no acute distress, appears stated ageSKIN: Normal color, texture, turgor, no rashes or lesionsENT: No scleral icterus. PERRL bilaterally. EOMI. No pharyngeal erythema.No oral mucosal lesions.NECK: Supple, no thyromegaly, no JVD.LYMPH: No cervical, supraclavicular, axillary, inguinal adenopathy.LUNG: Clear to auscultation, no wheezing rales or rhonchiHEART: Regular. No murmurs, gallop, or rubs. No ectopy.ABDM: Soft. Non-tender. Non-distended. Bowel sounds normal. No masses. Nohepatosplenomegaly.EXT: No clubbing, cyanosis or edema.MUSC: No joint swelling, deformity, or tenderness.BACK: No tenderness to palpation. No flank tenderness.LABS:RADIOLOGY/O THER STUDIES:COUNSELING:I discussed with Gladis the natural history, treated course, and prognosisof Lymphocytosis (primary encounter diagnosis); my impression as well as therationale, logistics, risks, benefits, and alternatives to the managementoptions noted above; and my recommendations listed below. The patientElijo Michael verbalized understanding and agreed with theserecommendations and plan. I answered all questions satisfactorily..Hai Shelton D.O.Medical OncologistMar[place], [place]Referring Provider: ISAAC SHELTON [[id number]]Allergies As of Date: 02/06/2017 Noted Allergy ReactionTOPROL XL (METOPROLOL) 04/11/2016 14 - Other: See Comments Comments: heart races per patientDate Reviewed: 02/06/2017Reviewed by: Richard Leon) [place] - Fully AssessedReason for Visit: Lymphocytosis [Other] Cmt: 9 month follow upReason For Visit History RecordedPrimary Visit Diagnosis:Lymphocytosis [D72.820]Order(s):JAK2 V617F MUTATION [SQJAK2] Order #: [id number] FUTUREDisposition: Return in about 6 months (around 08/06/2017), or jak2 lab today. f/u in 6 months. she will call and we will discuss results on phone..Follow-up and Disposition History RecordedPrescriptions as of 02/06/2017 Sig: PINDOLOL 5 MG TABLET Take 5 mg by mouth twice kwasi* SERTRALINE 50 MG TABLET Take 50 mg by mouth once kwasi* LISINOPRIL 2.5 MG TABLET Take 2.5 mg by mouth once buck*Problem List As Of Date 02/06/2017 Noted Resolved Lymphocytosis [D72.820] INVALID FOR*Encounter Status:Closed by ISAAC SHELTON DO on 02/07/17 Normal [facility] JAK2 V617F Mutationon 2016 JAK2 V617F Interp Result: JAK2 V617F M utation Not Detected Normal [facility] Comment on above: Result Comment: Inte rpretation: The JAK2 V617F Mutation was not detected. The V617F point mutation has been reported in a high percentage of cases of polycythemia vera, approximately half of the cases of essential thrombocythemia and chronic idiopathic myelofibrosis, and in a smaller proportion of other myeloid disorders.(NOTE)Methodology:Following DNA extraction and library construction utilizing [employer] Cancer Hotspot Panel v.1 ([employer], [place]), DNA sequencing of gene mutation hotspot regions was performed onthe MiSeq instrument ([employer], [place], [place]). Best Five Reviewed software([employer], [place], [place]) was used to analyze FASTQ files toidentify hotspot mutations in requested genes.Test Limitations:Sequence changes outside the analyzed mutation hotspots, includingintronic, non-coding, and splice site variants, will not beidentified by this test. Insertions and deletions larger than 20 and40 bp, respectively, may not be identified by this test. The lowerlimit of detection of this assay is approximately 5% alleleproportion. Variants below 5% allele proportion may be reported atthe discretion of the molecular pathology professional staff if thetechnical quality of the sequencing is sufficient at that locationand the call is unequivocal. Common germline polymorphisms areconsidered to represent wild type sequence and are not included inthis report. The presence of nucleotide polymorphisms or variants atthe annealing sites of the primers used in amplification andsequencing may cause allele drop-outs, hence a false negative resultis possible.This test was developed and its performance characteristicsdetermined by [facility] [place] ([facility]). It has not been cleared orapproved by the FDA. [facility] is regulated under CLIA as qualified toperform high-complexity testing. This test is used for clinicalpurposes. It should not be regarded as investigational or forresearch.References:Gracy EDWARDS, Socrates A, Rene R, Roberto Carlos J, Modesta MJ, Kesha Mccullough MM,et al. The 2016 revision to the World Health Organization (WHO)classification of myeloid neoplasms and acute leukemia. Mkigj5639;127: 2391-405.Erikai A, Skrhys R, Adrian JW. Myeloproliferative neoplasms:contemporary diagnosis using histology and genetics. Funmi Rev ClinOncol 2009;6:627-37. Performed By: #### L D6, JAK2 ####[address] [phone] JAK2 V617F Spec Type Peripheral Blood Normal [facility] Comment on above: Performed By: #### L D6, JAK2 ####[address] [phone] Molecular Path Rev Reviewed by David oV M.D., Ph.D ([id number]) Normal [facility] Comment on above: Performed By: #### L D6, JAK2 ####[address] [phone] LDon 02-06-2017 LD 186 U/L Normal 135-214 [facility] Comment on above: Performed By: #### L D6, JAK2 ####[address] [phone] PROGRESSon 02-06-2017 PROGRESS HNO ID: [id number] thor: Isaac Carrasco: (none)Author Type: PhysicianType: Progress NotesFiled: 02/07/2017 12:59 AMNote Text:PATIENT NAME: Gladis PatelarMRN: [id number] PHYSICIAN: MICHAEL Rubin[address] [facility] [phone] CARE PHYSICIAN: MASOOD Rubin PHYSICIANS:CHIEF COMPLAINT: Lymphocytosis (primary encounter diagnosis)ASSESSMENT/PLAN:1 . LymphocytosisAbsolute lymphocytosis - BCR ABL and flow cytometry negative in April2016. Paraprotein evaluation reveals slight IgG Level M spikequantitative is 0.16. No other diagnostic abnormalities. At this pointwe are considering this a monoclonal gammopathy of undeterminedsignificance. For extreme low level of M protein and the immunofixationreport which states that the bands are rather faint, we will continue tomonitor onlyDiscussed today whether or not we should proceed with a bone marrow biopsyand/or systemic imaging. The patient has no symptoms whatsoever and wouldlike to monitor only for now on this is reasonable. She will follow-upwith me in 4 months and we will reevaluateather faint, we will continue tomonitor onlyConsidered viral etiology but no workup will be done in absence ofsymptoms.We'll check JAK2 mutation, as she has persistently elevated platelets andwhite blood cells and her mother has JAK2 positive disease.LDH and sedimentation rate within normal limits.(D72.820) Lymphocytosis (primary encounter diagnosis)Visit (SP) Office on 02/06/17-JAK2 V617F MUTATION Return in about 6 months (around 08/06/2017), or jak2 lab today. f/u in 6months. she will call and we will discuss results on phone.. --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 Neutrophil percentage was 67% leaving an absolute neutrophil countof 8300.Recently had some chronic fatigue, nausea, lightheadedness, headaches.Laboratory from January 2016 was reviewed revealed normal liver and kidneyfunction, normal total protein and albumin, normal hemoglobin 13.4, normalkidney function, normal TSH.Family History.Mother has Jak2 positive essential thrombocytosis/polycythemia .Her sisters had similar disease.April 11, 2016 No night sweats,Initial consult today.No changes in weight.No early satiety.Some nausea for about the last year.BP has been elevated for about three weeks now.Had few ER visits at [place] last year for LUQ pain and had CT scans.04/29/16Patient has no new complaints. No night sweats, no weight changes, nofever sweats or chills. Continues overall do well.February 06, 2017 doing good overall. Complains of increased fatigue.No other complaints. No fever/s/c. No night sweats.No lumps or bumps.Tired all the time.Some mild nausea after eating. LUQ pain still comes and goes. She alsonotes some darkening over her cheekbones intermittently below the areawhere dark circles under eyes would tend to develop. COMPLETE REVIEW OF SYSTEMS: NEGATIVES POSITIVESGEN: fevers, sweats, chills. Overall feels well. persistent andpotentially increased fatigue.HEENT: significant headaches, changes in hearing, changes in vision, nosebleeds.RESP: dyspnea, cough, wheezing.CARD: chest pain, leg swelling, palpitations.GI: abdominal pain, vomiting, diarrhea, constipation, melena,hematochezia. Nausea chronic for a year or more. Occasional LUQ pain.: dysuria, frequency or incontinence.MUSC: joint pain or swelling.SKIN: lesions, rash, itching. see history of present illnessHEME: prolonged bleeding, bruising, adenopathy.NEURO: syncope, seizures, peripheral numbness or tingling.MEDICATIONS:pindol ol (VISKEN) 5 mg tablet Take 5 mg by mouth twice daily.sertraline (ZOLOFT) 50 mg tablet Take 50 mg by mouth once daily.lisinopril 2.5 mg tablet Take 2.5 mg by mouth once daily.ALLERGIES:ALLERGIESAl lergen Reactions- Toprol Xl [Metoprol* Other: See Comments heart races per patientPAST MEDICAL HISTORYDiagnosis Date- Anxiety- Hypertension- LeukocytosisPAST SURGICAL HISTORYProcedure Laterality Date- DELIVERY ONLY , low transverse- CHOLECYSTECTOMYHistory reviewed. No pertinent family history.SOCIAL HISTORY:Social HistorySubstance Use Topics- Smoking status: Former Smoker- Smokeless tobacco: Never Used- Alcohol use NoPHYSICAL EXAM:Vitals: BP 161/102 Pulse 66 Temp (Src) 98.6 (Oral) Resp 16 Ht 5'2.992 (1.60m) Wt 239 lb 6.4 oz (108.6kg) BMI 42.42 kg/(m2). Bodysurface area is 2.2 meters squared.ECOG PS: 0GEN: Well appearing, alert, in no acute distress, appears stated ageSKIN: Normal color, texture, turgor, no rashes or lesionsENT: No scleral icterus. PERRL bilaterally. EOMI. No pharyngealerythema. No oral mucosal lesions.NECK: Supple, no thyromegaly, no JVD.LYMPH: No cervical, supraclavicular, axillary, inguinal adenopathy.LUNG: Clear to auscultation, no wheezing rales or rhonchiHEART: Regular. No murmurs, gallop, or rubs. No ectopy.ABDM: Soft. Non-tender. Non-distended. Bowel sounds normal. No masses.No hepatosplenomegaly.EXT: No clubbing, cyanosis or edema.MUSC: No joint swelling, deformity, or tenderness.BACK: No tenderness to palpation. No flank tenderness.LABS:RADIOLOGY/O THER STUDIES:COUNSELING:I discussed with Gladis the natural history, treated course, andprognosis of Lymphocytosis (primary encounter diagnosis); my impressionas well as the rationale, logistics, risks, benefits, and alternatives tothe management options noted above; and my recommendations listed below.The patient Gladischapito Michael verbalized understanding and agreed withthese recommendations and plan. I answered all questions satisfactorily..Hai Shetlon D.O.Medical OncologistMar[place], [place] Normal [facility] Remote Abs Gran + CBC (for F HC use only)on 02-06-2017 Absol Gran Count 10.53 k/uL High 1.45-7.50 [facility] Erythrocyte distribution width Auto Ratio (RBC) 13.8 % Normal 11.5-15.0 [facility] Erythrocytes (RBC) 4.88 10*6/uL Normal 3.90-5.20 [facility] Hematocrit (HCT) 40.8 % Normal 36.0-46.0 [facility] Hemoglobin mass conc (Bld) 13.6 g/dL Normal 11.5-15.5 [facility] MCH 27.9 pG Normal 26.0-34.0 [facility] MCHC mass conc (RBC) 33.3 g/dL Normal 30.5-36.0 [facility] MCV 83.6 fL Normal 80.0-100.0 [facility] Platelet mean volume (PMV) 9.6 fL Normal 9.0-12.7 [facility] Platelets 448 10*3/uL High 150-400 [facility] WBC (Leukocytes) 14.69 10*3/uL High 3.70-11.00 [facility] LDon 01-23-2017 LD 169 U/L Normal 135-214 [facility] Comment on above: Performed By: #### L D6 ####[id number] [place], [place] [phone] Remote Abs Gran + CBC (for F HC use only)on 01-23-2017 Absol Gran Count 8.16 k/uL High 1.45-7.50 [facility] Erythrocyte distribution width Auto Ratio (RBC) 13.7 % Normal 11.5-15.0 [facility] Erythrocytes (RBC) 5.16 10*6/uL Normal 3.90-5.20 [facility] Hematocrit (HCT) 43.4 % Normal 36.0-46.0 [facility] Hemoglobin mass conc (Bld) 14.3 g/dL Normal 11.5-15.5 [facility] MCH 27.7 pG Normal 26.0-34.0 [facility] MCHC mass conc (RBC) 32.9 g/dL Normal 30.5-36.0 [facility] MCV 84.1 fL Normal 80.0-100.0 [facility] Platelet mean volume (PMV) 9.6 fL Normal 9.0-12.7 [facility] Platelets 481 10*3/uL High 150-400 [facility] WBC (Leukocytes) 12.17 10*3/uL High 3.70-11.00 [facility] CNCOon 11-28-2016 CNCO Letter TextNortnadya [facility] [address] [place], [place] [address]Diwlg: [phone]: [facility] [address] [facility] Cent[place], [place] [address]Eocfl: [phone]: [facility] [address] [place], [place] [address]Erpzb: [phone]: Toll Free: [phone] [email or web address] Saad Arredondo M.D., Carlos Gleason M.D.Luiz Berrios M.D.Isaac Shelton D.O..Audrey Jang M.D. FACROSaju A. Rajan, M.D..November 28, 2016[facility] Michael[address] [place] [id number] Ms. Michael,You missed your scheduled appointment on 11/28/2016. Please call our officeto reschedule. If you need to cancel any future appointments, please call togive us 24 hour notice so that we can offer your appointment to anotherpatient.Sincerely,Tulio Au M.D. Normal [facility] Vital Signs Date Time Vital Sign Value Performing Clinician Jade humphries 10-20-2021 21:00-0400 Body temperature 98.6 [degF] Mulugeta Tulio [facility] 10-20-2021 21:00-0400 Diastolic blood pressure 91 mm[Hg] Mulugeta Antunez [facility] 10-20-2021 21:00-0400 Heart rate 76 /min Mulugeta Antunez [facility] 10-20-2021 21:00-0400 Mean blood pressure 113 mm[Hg] Mulugeta Antunez [facility] 10-20-2021 21:00-0400 Respiratory rate 18 /min Mulugeta Tulio [facility] 10-20-2021 21:00-0400 SaO2% (BldA) [Mass fraction] 97 % Mulugeta Tulio [facility] 10-20-2021 21:00-0400 Systolic blood pressure 158 mm[Hg] Mulugeta Tulio [facility] 10-20-2021 20:00-0400 Body temperature 97.7 [degF] Mulugeta Tulio [facility] 10-20-2021 20:00-0400 Diastolic blood pressure 78 mm[Hg] Mulugeta Tulio [facility] 10-20-2021 20:00-0400 Heart rate 72 /min Mulugeta Tulio [facility] 10-20-2021 20:00-0400 Mean blood pressure 105 mm[Hg] Mulugeta Tulio [facility] 10-20-2021 19:00-0400 Diastolic blood pressure 102 mm[Hg] Mulugeta Tulio [facility] 10-20-2021 19:00-0400 Heart rate 70 /min Mulugeta Tulio [facility] 10-20-2021 19:00-0400 Mean blood pressure 124 mm[Hg] Mulugeta Tulio [facility] 10-20-2021 19:00-0400 Respiratory rate 17 /min Mulugeta Tulio [facility] 10-20-2021 19:00-0400 Systolic blood pressure 168 mm[Hg] Mulugeta Tulio [facility] 10-18-2021 12:00-0400 Heart rate 63 /min Kaylinn Dokken [facility] 10-18-2021 12:00-0400 Mean blood pressure 123 mm[Hg] Kaylinn Dokken [facility] 10-18-2021 12:00-0400 Systolic blood pressure 168 mm[Hg] Kaylinn Dokken [facility] 10-18-2021 11:30-0400 Diastolic blood pressure 100 mm[Hg] Kaylinn Dokken [facility] 10-18-2021 11:30-0400 Heart rate 69 /min Kaylinn Dokken [facility] 10-18-2021 11:30-0400 Mean blood pressure 121 mm[Hg] Kaylinn Dokken [facility] 10-18-2021 11:30-0400 Respiratory rate 16 /min Kaylinn Dokken [facility] 10-18-2021 11:30-0400 SaO2% (BldA) [Mass fraction] 99 % Kaylinn Dokken [facility] 10-18-2021 11:30-0400 Systolic blood pressure 163 mm[Hg] Kaylinn Dokken [facility] 10-18-2021 11:00-0400 Heart rate 68 /min Kaylinn Dokken [facility] 10-18-2021 11:00-0400 Mean blood pressure 120 mm[Hg] Kaylinn Dokken [facility] 10-18-2021 11:00-0400 SaO2% (BldA) [Mass fraction] 100 % Kaylinn Dokken [facility] 10-18-2021 11:00-0400 Systolic blood pressure 160 mm[Hg] Kaylinn Dokken [facility] 10-18-2021 09:30-0400 Hourly Rounding Kaylinn Dokken [facility] 10-18-2021 09:30-0400 Promise to Return Kaylinn Dokken [facility] 10-18-2021 08:30-0400 Hourly Rounding Kaylinn Dokken [facility] 10-18-2021 08:30-0400 Promise to Return Kaylinn Dokken [facility] 10-18-2021 03:59-0400 Body temperature 98.06 [degF] Kaylinn Dokken [facility] 10-18-2021 03:59-0400 Heart rate 77 /min Kaylinn Dokken [facility] Encounters Encounter Date Encounter Type Care Provider Facility Start: 07-23-2023 End: 07-23-2023 ambulatory [facility] Start: 06-11-2023 End: 06-11-2023 ambulatory Belle Jose Other [facility] Other Start: 06-11-2023 Telephone encounter Belle Jose [facility] Start: 06-10-2023 End: 06-10-2023 ambulatory Belle Jose Other [facility] Other Start: 06-10-2023 Office outpatient vi sit 15 minutes Belle Jose [facility] Start: 02-19-2023 End: 02-19-2023 ambulatory [facility] Start: 09-25-2022 End: 09-25-2022 ambulatory MAGED [facility] Start: 09-22-2022 End: 09-23-2022 ambulatory TERRI LANDAVERDE Facility:[facility] Start: 08-21-2022 ambulatory JOVITA WAITE Facility: [facility] Start: 08-13-2022 End: 08-14-[address] TERRI DELANEY Facility:[facility] Start: 08-07-2022 End: 08-07-2022 ambulatory HARRY WALLIS . Facility:[facility] Start: 03-18-2022 ambulatory JOVITA WAITE Facility: [facility] Start: 03-06-2022 End: 03-07-[address] SHADE ROMO Facility:[facility] Start: 01-21-2022 End: 01-21-2022 ambulatory JOVITA WAITE Facility:[facility] Start: 01-17-2022 End: 01-18-2022 ambulatory JOVITA WAITE Facility:[facility] Start: 01-10-2022 End: 01-11-[address] TERRI DELANEY Facility:[facility] Start: 10-30-2021 Encounter for preprocedural cardiovascular examination DR GUSTAVO FONTAINE . [facility] Start: 10-26-2021 End: 10-26-[address] GUSTAVO FONTAINE . Facility:[facility] Start: 10-24-2021 End: 10-25-[address] GUSTAVO FONTAINE . Facility:[facility] Start: 10-24-2021 End: 10-25-2021 Encounter for preprocedural cardiovascular examination DR GUSTAVO FONTAINE . Facility:[facility] Start: 10-20-2021 End: 10-20-2021 Emergency department patient visit Mulugeta Antunez [facility] Start: 10-18-2021 End: 10-18-2021 Emergency department patient visit Jeffy Das [facility] Start: 09-27-2021 End: 09-28-2021 ambulatory JOVITA WAITE Facility:[facility] Start: 03-20-2021 Gynecological examin ation normal Belle Jose Other [facility] Other Start: 08-09-2020 Adult health examination Renee Jose Other [facility] Other Start: 07-01-2018 End: 07-02-2018 Patient encounter procedure DEFAULT PHYSICIAN Facility:[facility] Start: 06-30-2018 End: 07-01-2018 Patient encounter procedure DEFAULT PHYSICIAN Facility:[facility] Start: 10-20-2017 End: 10-22-2017 Ambulatory ISAAC J PRANAVCHEIKH [facility] Start: 10-09-2017 End: 10-10-2017 Ambulatory ISAAC SHELTON [facility] Start: 10-06-2017 End: 10-06-2017 Ambulatory ISAAC LINA [facility] Start: 09-25-2017 End: 10-01-2017 Ambulatory JESUS TAVAREZ JUDD [facility] Start: 06-05-2017 End: 06-10-2017 Ambulatory ISAACEFRAIN SLADEWARDCHEIKH [facility] Start: 05-22-2017 End: 05-28-2017 Ambulatory JESUS RENTERIAHEY [facility] Start: 04-28-2017 End: 05-05-2017 Ambulatory ISAAC SLADEWARDCHEIKH [facility] Start: 04-10-2017 End: 04-16-2017 Ambulatory CANDIS DAVID [facility] Start: 04-07-2017 End: 04-11-2017 Ambulatory ISAACEFRAIN SLADEWARDCHEIKH [facility] Start: 03-19-2017 End: 03-19-2017 Ambulatory ISAACEFRAIN SLADEWARDCHEIKH [facility] Start: 03-14-2017 End: 03-14-2017 Ambulatory ISAAC SHELTON [facility] Start: 03-13-2017 End: 03-17-2017 Ambulatory ISAAC Rodrigue SHELTON [facility] Start: 02-06-2017 End: 02-07-2017 Ambulatory ISAAC SHELTON [facility] Start: 01-23-2017 End: 01-23-2017 Ambulatory ISAAC J LINA [facility] Procedures Date Procedure Procedure Detail Performing Clinician section Jeffy cruz Cholecystectomy eJffy redd Immunizations Immunization Date Immunization Notes Care Provider Bossman jeevan 03-13-2020 influenza virus vaccine, split virus (incl. purified surface antigen) Belle Jose Other [facility] Other 03-16-2018 influenza virus vaccine, split virus (incl. purified surface antigen) Belle Jose Other [facility] Other Payers Date Payer Category Payer Unknown [id number] 2.16.8 [id number] 1975 Unknown [id number] 2.16.8 [id number] 1975 Unknown [id number] 2.16.84 [id number] 1975 Unknown [id number] 2.16.84 [id number] 1975 Unknown [id number] 2.16.84 [id number] 1975 Unknown [id number] 2.16.84 [id number] 1975 Unknown [id number] 2.16.84 [id number] 1975 Unknown [id number] 2.16.84 [id number] 1975 Unknown [id number] 2.16.84 [id number] 1975 Unknown [id number] 2.16.84 [id number] 1975 Unknown [id number] 2.16.84 [id number] 1975 Unknown [id number] 2.16.84 [id number] 1975 Unknown [id number] 2.16.84 [id number] 1975 Unknown [id number] 2.16.84 [id number] 1959 Private Health Insurance [id number] 1959 Self-pay [id number] 1959 Unknown [id number] 1959 Unknown [id number] Unknown Social History Date Type Detail Facility Tobacco smoking status [facility] Sex Assigned At Female [facility] Clinical Notes 10-18-2021 to 07-23-2023 Note Date & Type Note Facility 07-23-2023 Note Currently without fl uid overload/ edema at this time with chlorthalidone daily. + RANDALL Will repeat TTE [facility] 07-23-2023 Note Patient here for fol low up event monitor. Her insurance denied echo again. C/o cough with lisinopril. Still gets intermittent palpitations and hasn't had an echo in 3+ years. Review of Systems Cardiovascular: Positive for irregular heartbeat and palpitations. Neurological: Positive for dizziness, headaches and light-headedness. All other systems reviewed and are negative. [facility] 07-23-2023 Note [facility] CARDIOLOGY PROGR ESS NOTE HPI: Gladis Michael is a 48 y.o. female here for routine F/U HPI 48 yo female presents for past medical history of uncontrolled hypertension, palpitations. Patient here for follow up event monitor. Her insurance denied echo again. C/o cough with lisinopril. Still gets intermittent palpitations and hasn't had an echo in 3+ years. Review of Systems Cardiovascular: Positive for irregular heartbeat and palpitations. Respiratory: Dyspnea on exertion Neurological: Positive for dizziness, headaches and light-headedness. All other systems reviewed and are negative. Visit Vitals BP 149/89 (BP Location: Right wrist, Patient Position: Sitting) Pulse 63 Ht 1.6 m (5' 3 ) Wt 110 kg (243 lb) SpO2 99% BMI 43.05 kg/m??? Smoking Status Former BSA 2.21 m??? Allergies Allergen Reactions Metoprolol Other heart races per patient Medications: Current Outpatient Medications on File Prior to Visit Medication Sig Dispense Refill pindolol (Visken) 5 mg tablet Take 10 mg by mouth in the morning and at bedtime. sertraline (Zoloft) 50 mg tablet Take 50 mg by mouth in the morning. [DISCONTINUED] chlorthalidone (Hygroton) 25 mg tablet Take 0.5 tablets (12.5 mg) by mouth in the morning. 45 tablet 3 [DISCONTINUED] lisinopril 20 mg tablet Take 20 mg by mouth in the morning and at bedtime. No current facility-administered medications on file prior to visit. Physical Exam: Constitutional: Appearance: Normal appearance. Without apparent distress, obese HENT: Head: Normocephalic and atraumatic. Nose: Nose normal. Mouth/Throat: Mouth: Mucous membranes are moist. Eyes: Extraocular Movements: Extraocular movements intact. Conjunctiva/sclera: Conjunctivae normal. Neck: Vascular: No JVD. Cardiovascular: Rate and Rhythm: Normal rate and regular rhythm. Pulses: Dorsalis pedis pulses are 3 on the right side and 3on the left side. Posterior tibial pulses are 3 on the right side and 3 on the left side. Heart sounds: Normal heart sounds, S1 normal and S2 normal. Pulmonary: Effort: Pulmonary effort is normal. Breath sounds: Normal breath sounds. Abdominal: General: Bowel sounds are normal. Palpations: Abdomen is soft. Musculoskeletal: General: Normal range of motion. Cervical back: Normal range of motion. Right lower leg: Non pitting edema. Left lower leg: Non pitting edema. Skin: General: Skin is warm and dry. Capillary Refill: Capillary refill takes less than 2 seconds. Neurological: General: No focal deficit present. Mental Status: She is alert and oriented to person, place, and time. Psychiatric: Mood and Affect: Mood normal. Behavior: Behavior normal. Thought Content: Thought content normal. Judgment: Judgment normal. Labs: 12/03/22 CBC normal NA 137, K+ 3.6- normal BUN 15, Cr 0.64, GFR >60 normal A1C 5.5 Liver function normal Trig 204, Chol 188, HDL 48, LDL 100- Well controlled lipid level Last lab values have been reviewed CV Testing: Event monitor 02/2023- reviewed with pt. 2020 TTE Stress test: 2019 No echocardiogram results found for the past 12 months Assessment/Plan: Nonrheumatic mitral valve regurgitation Continues to have palpitations with known MV regurg on beta yandel. Will repeat echo to evaluate for any worsening MV regurg, diastolic dysfunction. Essential hypertension Hypertension is uncontrolled will increase chlorthalidone and pt c/o persistent dry cough- therefore will stop lisinopril. She is to monitor b/p at home and if consistently > 130/80 she is to call office and then may need started on losartan Repeat BMP in 1-2 weeks Diastolic dysfunction, left ventricle Currently without fluid overload/ edema at this time with chlorthalidone daily. + RANDALL Will repeat TTE RTC 3- 6months- provider will call pt for any concerning lab results, pt to call if b/p is uncontrolled [facility] 07-23-2023 Note Hypertension is unco ntrolled will increase chlorthalidone and pt c/o persistent dry cough- therefore will stop lisinopril. She is to monitor b/p at home and if consistently > 130/80 she is to call office and then may need started on losartan Repeat BMP in 1-2 weeks [facility] 07-23-2023 Note Continues to have pa lpitations with known MV regurg on beta yandel. Will repeat echo to evaluate for any worsening MV regurg, diastolic dysfunction. [facility] 06-10-2023 Evaluation note Encounter Date Diagnosis Assessment Notes Jun, Acute COVID-19 (ICD-10 - U07.1) Discussed quarantine protocol and time needed off work. Jun, Chronic sinusitis, unspecified (ICD-10 - J32.9) Take antibiotic as directed. If develop wheezing, chest tightness, itching, bad cough, blue skin color, seizures, swelling of face, lips, tongue, or throat report to ED. Jun, Other specified bacterial agents as the cause of diseases classified elsewhere (ICD-10 - B96.89) [facility] Other 09-13-2023 NoteUT Cardiology Progress Note Reason for visit: Hypertension HPI: Gladis Michael is a 47 y.o. year old with past medical history of uncontrolled hypertension, palpitations. She presents today for follow up. She continues to have palpitations. She denies any additional cardiac complaints or concerns. Patient denies any chest pain or shortness of breath. Patient denies any lower extremity edema, orthopnea, or proximal nocturnal dyspnea. No near-syncope or syncope. No dizziness or lightheadedness. Echo was ordered and has not yet been performed. ---- 07/09/2021 per phil SWANSON 46 yo female presents to clinic for routine f/u for uncontrolled HTN, obesity, and palpitations. Recently had bilateral ovarian cysts and 3 benign tumors removed.Had some mild leg swelling after this. RLE doppler negative for DVT. BP remains uncontrolled. She walks at work maybe 4 miles a day but denies any exercise routine. She has an exercise bike in her weight room that she will try to use. She admits to not always watching her sodium intake and will be more conscious of this. Denies any significant complaints including CP, dypsnea, orthopnea, PND, syncope. She notes dizziness with high anxiety. Palpitations are controlled, exacerbated by stress/anxiety. 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 ------- Echocardiogram 07/06/20 LV sytolic function normal- F 60-65% No WMA, Mild LVH LA and RA mild dilatation Mild TV and MV regurgitation RVSP 35-45 mild elevated reviewed labs 01/26/21 CBC normal Renal function normal BUN 12 Cr 0.66 D Dimer normal PMH: Past Medical History: Diagnosis Date Hypertension Palpitations PSH: Past Surgical History: Procedure Laterality Date SECTION, CLASSIC CHOLECYSTECTOMY HYSTERECTOMY SH: Social Determinants of Health Tobacco Use: Medium Risk (09/25/2022) Patient History Smoking Tobacco Use: Former Smokeless Tobacco Use: Never Passive Exposure: Not on file Alcohol Use: Not on file Financial Resource Strain: Not on file Food Insecurity: Not on file Transportation Needs: Not on file Physical Activity: Not on file Stress: Not on file Social Connections: Not on file Intimate Partner Violence: Not on file Depression: Not on file Housing Stability: Not on file Allergies: Allergies Allergen Reactions Metoprolol Other heart races per patient Weight: 111kg Visit Vitals BP 143/86 (BP Location: Left wrist, Patient Position: Sitting) Pulse 63 Ht 1.6 m (5' 3 ) Wt 111 kg (244 lb) SpO2 95% BMI 43.22 kg/m??? Smoking Status Former BSA 2.22 m??? Meds: Current Outpatient Medications on File Prior to Visit Medication Sig Dispense Refill chlorthalidone (Hygroton) 25 mg tablet Take 0.5 tablets (12.5 mg) by mouth in the morning. 45 tablet 3 lisinopril 20 mg tablet Take 20 mg by mouth in the morning and at bedtime. pindolol (Visken) 5 mg tablet Take 10 mg by mouth in the morning and at bedtime. sertraline (Zoloft) 50 mg tablet Take 50 mg by mouth in the morning. No current facility-administered medications on file prior to visit. ROS: Cardio Basic Cardiovascular Symptoms: no lightheadedness, no leg edema, no syncope, no orthopnea, no PND, no claudication, Constitutional Constitutional: no fever, no night sweats, no significant weight gain, no significant weight loss, no exercise intolerance Eyes Eyes: no dry eyes, no irritation, no vision change ENMT Ears: no difficulty hearing, no ear pain Nose: no frequent nosebleeds, Mouth/Throat: no sore throat, no bleeding gums, no snoring, no dry mouth, no mouth ulcers, no oral abnormalities, no teeth problems Respiratory Respiratory: no cough, no wheezing, no coughing up blood, no sleep apnea Musculoskeletal Musculoskeletal: no muscle aches, no muscle weakness, joint pain+, no back pain, no swelling in the extremities Integumentary Skin no rash, no ulcer, no varicosities, no discoloration, no pruritus Neurologic Neurologic: no loss of consciousness, no weakness, no numbness, no seizures, no dizziness, no headaches Psychiatric Psych: no depression, feeling safe in relationship, no alcohol abuse, Hematologic/Lymphatic Hematologic/Lymphatic no swollen glands, no bruising Physical Exam: Constitutional General Appearance: well-nourished, well-developed, appears stated age Level of Distress: comfortable Psychiatric Mental Status: alert, normal affect Orientation: oriented to time, place, and person Insight: good judgement Eyes Lids and Conjunctivae: non-injected, no xanthelasma ENMT Ears: no lesions on external ear Nose: no lesions on external nose Oropharynx: no cyanosis, no pallor Neck Neck: suppl (more content not included)...[facility] 02-19-2023 NotePatient here for 6 mo follow up hypertension. Maged Amato CNP ordered echo in September 2022, but her insurance denied it. She had labs in November 2022. Denies chest pain and SOB. Does have occasional palpitations. Gets dizzy/lighthead at times. Review of Systems Cardiovascular: Positive for irregular heartbeat and palpitations. Neurological: Positive for dizziness, headaches and light-headedness. All other systems reviewed and are negative.[facility] 09-29-2022 Note- Uncontrolled hypertension, will start her on chlorthalidone 12.5 mg with repeat BMP -We will have her follow-up in 1 week to watch blood pressure closely -She is asymptomatic today but has had recent symptoms of headaches with her ER visit for hypertension -I will get [facility] NoteUT Electrophysiology Consult Note Reason for visit: Hypertension HPI: Gladis Michael is a 47 y.o. year old with past medical history of uncontrolled hypertension, palpitations. She is here for follow-up for uncontrolled hypertension was recently in the ER with an elevated blood pressure. States that she took and it was over 200 systolic. She has been on pindolol 10 mg twice daily and lisinopril 20 mg twice daily. Her palpitations imrpoved on pindolol. She denies chest pain, RANDALL, orthopnea, shortness of breath, palpitations. She has had lightheadedness and headaches with her severe hypertension ---- 07/09/2021 per phil SWANSON 46 yo female presents to clinic for routine f/u for uncontrolled HTN, obesity, and palpitations. Recently had bilateral ovarian cysts and 3 benign tumors removed.Had some mild leg swelling after this. RLE doppler negative for DVT. BP remains uncontrolled. She walks at work maybe 4 miles a day but denies any exercise routine. She has an exercise bike in her weight room that she will try to use. She admits to not always watching her sodium intake and will be more conscious of this. Denies any significant complaints including CP, dypsnea, orthopnea, PND, syncope. She notes dizziness with high anxiety. Palpitations are controlled, exacerbated by stress/anxiety. 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 ------- Echocardiogram 07/06/20 LV sytolic function normal- F 60-65% No WMA, Mild LVH LA and RA mild dilatation Mild TV and MV regurgitation RVSP 35-45 mild elevated reviewed labs 01/26/21 CBC normal Renal function normal BUN 12 Cr 0.66 D Dimer normal PMH: Past Medical History: Diagnosis Date Hypertension Palpitations PSH: Past Surgical History: Procedure Laterality Date SECTION, CLASSIC CHOLECYSTECTOMY HYSTERECTOMY SH: Social Determinants of Health Tobacco Use: Medium Risk Smoking Tobacco Use: Former Smokeless Tobacco Use: Never Passive Exposure: Not on file Alcohol Use: Not on file Financial Resource Strain: Not on file Food Insecurity: Not on file Transportation Needs: Not on file Physical Activity: Not on file Stress: Not on file Social Connections: Not on file Intimate Partner Violence: Not on file Depression: Not on file Housing Stability: Not on file Allergies: Allergies Allergen Reactions Metoprolol Other heart races per patient Weight: 110kg Visit Vitals BP (!) 185/93 (BP Location: Left wrist, Patient Position: Sitting) Pulse 76 Ht 1.6 m (5' 3 ) Wt 110 kg (242 lb) SpO2 95% BMI 42.87 kg/m??? Smoking Status Former BSA 2.21 m??? Meds: Current Outpatient Medications on File Prior to Visit Medication Sig Dispense Refill lisinopril 20 mg tablet Take 20 mg by mouth in the morning and at bedtime. pindolol (Visken) 5 mg tablet Take 10 mg by mouth in the morning and at bedtime. sertraline (Zoloft) 50 mg tablet Take 50 mg by mouth in the morning. No current facility-administered medications on file prior to visit. ROS: Cardio Basic Cardiovascular Symptoms: no lightheadedness, no leg edema, no syncope, no orthopnea, no PND, no claudication, Constitutional Constitutional: no fever, no night sweats, no significant weight gain, no significant weight loss, no exercise intolerance Eyes Eyes: no dry eyes, no irritation, no vision change ENMT Ears: no difficulty hearing, no ear pain Nose: no frequent nosebleeds, Mouth/Throat: no sore throat, no bleeding gums, no snoring, no dry mouth, no mouth ulcers, no oral abnormalities, no teeth problems Respiratory Respiratory: no cough, no wheezing, no coughing up blood, no sleep apnea Musculoskeletal Musculoskeletal: no muscle aches, no muscle weakness, joint pain+, no back pain, no swelling in the extremities Integumentary Skin no rash, no ulcer, no varicosities, no discoloration, no pruritus Neurologic Neurologic: no loss of consciousness, no weakness, no numbness, no seizures, no dizziness, no headaches Psychiatric Psych: no depression, feeling safe in relationship, no alcohol abuse, Hematologic/Lymphatic Hematologic/Lymphatic no swollen glands, no bruising Physical Exam: Constitutional General Appearance: well-nourished, well-developed, appears stated age Level of Distress: comfortable Psychiatric Mental Status: alert, normal affect Orientation: oriented to time, place, and person Insight: good judgement Eyes Lids and Conjunctivae: non-injected, no xanthelasma ENMT Ears: no lesions on external ear Nose: no lesions on external nose Oropharynx: no cyanosis, no pallor Neck Neck: supple, trachea midline Carotid Arteries: bilateral normal upstroke, no bruits (more content not included)...[facility]04-19-2023 Note Patient here for 1 year follow up hypertension and palpitations. She was seen in [facility] ED a few days ago for headache and elevated BP. She was not having chest pain, SOB, or palpitations. Review of Systems Neurological: Positive for headaches. All other systems reviewed and are negative.[facility] 10-26-2021 NoteThe [place], [place] NAME: GLADIS MICHAEL DATE OF : MEDICAL REC#: [id number] DISPLAY ASSOCIATE: [facility] [facility], TRANSADMIT DATE: 10/26/2021 09:00:00 REHABILITATION ENGINEER DATE: 10/28/2021 02:00 DICTATING PHYSICIAN: GUSTAVO FONTAINE DICTATION DATE: 10/26/2021 12:00 OP Note OPERATION DATE: 10/26/2021 PROCEDURE: Diagnostic laparoscopy with removal of bilateral tubal remnants. PREOPERATIVE DIAGNOSIS: Pelvic pain. POSTOPERATIVE DIAGNOSIS: Pelvic pain including hydrosalpinx of partial tubal remnant bilaterally, slightly erythematous tubal remnant. Otherwise normal appearing uterus and ovaries. SURGEON: Gustavo Fontaine M.D. SOLAR SALES REPRESENTATIVE AND ASSESSOR: VALERIE Coombs URINE OUTPUT: Yellow and clear. BLOOD LOSS: 5 mL. FINDINGS: Partial tubal remnants, hydrosalpinx. Uterus normal in appearance. Normal appearing ovaries. SPECIMEN: Partial tubal remnants. PROCEDURE: The patient was taken back to the Operating Room where she was placed in dorsal lithotomy position after given general anesthesia. The patient was prepped and draped in normal sterile fashion. A sponge stick was placed into the patient's vagina. Attention was turned to the patient's abdomen, where a small umbilical incision was made. The fascia was tented using Allyson clamps and the fascia was entered sharply. Confirmation of intraabdominal placement of the 10 mm port was confirmed under direct visualization using a laparoscope. The patient's abdomen was then insufflated using CO2 gas with approximately 4 liters. A second port was placed left laterally, this was done under direct visualization with a 5 mm port. Survey of the patient's abdomen demonstrated normal liver and gallbladder. Survey of the patient's pelvic anatomy demonstrated normal appearing ovaries and bilateral hydrosalpingx of tubal remnants. normal appearing uterus. Normal appearing ovaries No endometrial implants could be noted, evidence of pelvic inflammatory disease was seen, normal appearing pelvic cavity. All instruments were removed from the patient's abdomen. the tubes were erythematous in appearance The patient's abdomen was desufflated of CO2 gas. The patient tolerated the procedure well. Sponge stick was removed from the patient's vagina. The patient's infraumbilical fascia was closed using #0 Vicryl on a GI needle. The patient's skin was closed laterally and infraumbilically using 4-0 Vicryl. The patient tolerated the procedure well. Sponge, lap and needle counts were correct x 2. The patient was taken to Recovery Room in stable condition. Electronically Authenticated and Edited by: Gustavo Fontaine DO on 11/09/2021 08:27 AM EDT [facility] Signed and Approved by: DR GUSTAVO FONTAINE . 11/09/2021 08:27:00[id number] NoteOP Note OPERATION DATE: 10/26/2021 ADDENDUM: Please note that the patient had partial tubal remnants with hydrosalpinx that were removed using the LigaSure. Please note that these were transected and ligated and excellent hemostasis was performed. [facility] Signed and Approved by: DR GUSTAVO FONTAINE . 12/02/2021 10:37:00[facility] [id number] NoteOP Note OPERATION DATE: 10/26/2021 ADDENDUM: Please note that the patient had partial tubal remnants with hydrosalpinx that were removed using the LigaSure. Please note that these were transected and ligated and excellent hemostasis was performed.[facility] [id number] Hospital Discharge instructions Patient Education 10/20/2021 21:20:19 Ovarian Cyst Ovarian Cyst An ovarian cyst is a fluid-filled sac that forms on an ovary. The ovaries are small organs that produce eggs in women. Various types of cysts can form on the ovaries. Some may cause symptoms and require treatment. Most ovarian cysts go away on their own, are not cancerous (are benign), and do not cause problems. Common types of ovarian cysts include: Functional (follicle) cysts. ?Occur during the menstrual cycle, and usually go away with the next menstrual cycle if you do not get . ?Usually cause no symptoms. Endometriomas. ?Are cysts that form from the tissue that lines the uterus (endometrium). ?Are sometimes called chocolate cysts because they become filled with blood that turns brown. ?Can cause pain in the lower abdomen during intercourse and during your period. Cystadenoma cysts. ?Develop from cells on the outside surface of the ovary. ?Can get very large and cause lower abdomen pain and pain with intercourse. ?Can cause severe pain if they twist or break open (rupture). Dermoid cysts. ?Are sometimes found in both ovaries. ?May contain different kinds of body tissue, such as skin, teeth, hair, or cartilage. ?Usually do not cause symptoms unless they get very big. Theca lutein cysts. ?Occur when too much of a certain hormone (human chorionic gonadotropin) is produced and overstimulates the ovaries to produce an egg. ?Are most common after having procedures used to assist with the conception of a baby (in vitro fertilization). What are the causes? Ovarian cysts may be caused by: Ovarian hyperstimulation syndrome. This is a condition that can develop from taking fertility medicines. It causes multiple large ovarian cysts to form. Polycystic ovarian syndrome (PCOS). This is a common hormonal disorder that can cause ovarian cysts, as well as problems with your period or fertility. What increases the risk? The following factors may make you more likely to develop ovarian cysts: Being overweight or obese. Taking fertility medicines. Taking certain forms of hormonal control. Smoking. What are the signs or symptoms? Many ovarian cysts do not cause symptoms. If symptoms are present, they may include: Pelvic pain or pressure. Pain in the lower abdomen. Pain during sex. Abdominal swelling. Abnormal menstrual periods. Increasing pain with menstrual periods. How is this diagnosed? These cysts are commonly found during a routine pelvic exam. You may have tests to find out more about the cyst, such as: Ultrasound. X-ray of the pelvis. CT scan. MRI. Blood tests. How is this treated? Many ovarian cysts go away on their own without treatment. Your health care provider may want to check your cyst regularly for 2 3 months to see if it changes. If you are in menopause, it is especially important to have your cyst monitored closely because menopausal women have a higher rate of ovarian cancer. When treatment is needed, it may include: Medicines to help relieve pain. A procedure to drain the cyst (aspiration). Surgery to remove the whole cyst. Hormone treatment or control pills. These methods are sometimes used to help dissolve a cyst. Follow these instructions at home: Take ymws-ist-dhfihkl and prescription medicines only as told by your health care provider. Do not drive or use heavy machinery while taking prescription pain medicine. Get regular pelvic exams and Pap tests as often as told by your health care provider. Return to your normal activities as told by your health care provider. Ask your health care provider what activities are safe for you. Do not use any products that contain nicotine or tobacco, such as cigarettes and e-cigarettes. If you need help quitting, ask your health care provider. Keep all follow-up visits as told by your health care provider. This is important. Contact a health care provider if: Your periods are late, irregular, or painful, or they stop. You have pelvic pain that does not go away. You have pressure on your bladder or trouble emptying your bladder completely. You have pain during sex. You have any of the following in your abdomen: ?A feeling of fullness. ?Pressure. ?Discomfort. ?Pain that does not go away. ?Swelling. You feel generally ill. You become constipated. You lose your appetite. You develop severe acne. You start to have more body hair and facial hair. You are gaining weight or losing weight without changing your exercise and eating habits. You think you may be . Get help right away if: You have abdominal pain that is severe or gets worse. You cannot eat or drink without vomiting. You suddenly develop a fever. Your menstrual period is much heavier than usual. This information is not intended to replace advice given to you by your health care provider. Make sure you discuss any questions you have with your health care provider. Document Released: 05/26/2006 Document Revised: 08/24/2018 Document Reviewed: 10/27/2016 [employer] Patient Education 2020 [email or web address]. 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) Left ovarian cyst (N83.202: Unspecified ovarian cyst, left side) Orders: ketorolac, 10 mg = 1 tab(s), Oral, q6hr, PRN for pain, X 5 day(s), # 20 tab(s), Refills(s) 0, Pharmacy: [facility]/pharmacy #[id number], 160, cm, 10/20/21 18:21:00 EDT, Height/Length Dosing, 107, kg, 10/20/21 18:21:00 EDT, Weight Dosing ketorolac, 15 mg = 0.5 mL, Injection, IV Push, Once, Stop date 10/20/21 19:21:00 EDT, Start date 10/20/21 19:21:00 EDT morphine, 4 mg = 2 mL, Injection, IV Push, Once, Stop date 10/20/21 18:59:00 EDT, STAT, Start date 10/20/21 18:59:00 EDT, 10/20/21 18:59:00 EDT ondansetron, 4 mg = 2 mL, Injection, IV Push, Once, Stop date 10/20/21 19:00:00 EDT, STAT, Start date 10/20/21 19:00:00 EDT, 10/20/21 19:00:[address] Abdomen/Pelvis w/ Contrast [facility]05-12-2022 Hospital Discharge instructions Patient Education 10/18/2021 12:30:36 Abdominal Pain, Adult Abdominal Pain, Adult Pain in the abdomen (abdominal pain) can be caused by many things. Often, abdominal pain is not serious and it gets better with no treatment or by being treated at home. However, sometimes abdominal pain is serious. Your health care provider will ask questions about your medical history and do a physical exam to try to determine the cause of your abdominal pain. Follow these instructions at home: Medicines Take kiri-qed-rdtpblq and prescription medicines only as told by your health care provider. Do not take a laxative unless told by your health care provider. General instructions Watch your condition for any changes. Drink enough fluid to keep your urine pale yellow. Keep all follow-up visits as told by your health care provider. This is important. Contact a health care provider if: Your abdominal pain changes or gets worse. You are not hungry or you lose weight without trying. You are constipated or have diarrhea for more than 2 3 days. You have pain when you urinate or have a bowel movement. Your abdominal pain wakes you up at night. Your pain gets worse with meals, after eating, or with certain foods. You are vomiting and cannot keep anything down. You have a fever. You have blood in your urine. Get help right away if: Your pain does not go away as soon as your health care provider told you to expect. You cannot stop vomiting. Your pain is only in areas of the abdomen, such as the right side or the left lower portion of the abdomen. Pain on the right side could be caused by appendicitis. You have bloody or black stools, or stools that look like tar. You have severe pain, cramping, or bloating in your abdomen. You have signs of dehydration, such as: ?Dark urine, very little urine, or no urine. ?Cracked lips. ?Dry mouth. ?Sunken eyes. ?Sleepiness. ?Weakness. You have trouble breathing or chest pain. Summary Often, abdominal pain is not serious and it gets better with no treatment or by being treated at home. However, sometimes abdominal pain is serious. Watch your condition for any changes. Take eyfh-dlu-xmnolfw and prescription medicines only as told by your health care provider. Contact a health care provider if your abdominal pain changes or gets worse. Get help right away if you have severe pain, cramping, or bloating in your abdomen. This information is not intended to replace advice given to you by your health care provider. Make sure you discuss any questions you have with your health care provider. Document Released: 03/05/2006 Document Revised: 10/04/2019 Document Reviewed: 10/04/2019 [employer] Patient Education 2020 [email or web address]. Follow Up Care 10/18/2021 03:57:58 With:Gustavo FONTAINE Address: [address] , [place] [address]- Business (1) When:10/21/2021 12:14:15 With:JOVITA WAITE Address: [address] [place] [address]- [phone] Business (1) When:10/21/2021 12:13:23 Comments:The ultrasound showed that you have fluid in your fallopian tube. Make sure to follow-up with Dr. Fontaine as instructed. Return to the emergency room if your pain gets worse, fever, vomiting or any newsymptoms. [facility]05-12-2022 Evaluation + Plan noteExtracted from: Title:ED Addendum Author:Patricia Palumbo M.D. Date:10/18/21 1. Hydrosalpinx (N70.11: Chr onic salpingitis) Ordered: acetaminophen-oxycodone, 1 tab(s), Oral, q6hr as needed for pain, 12 tab(s), Refill(s) 0, [id number], 160, cm, 10/18/21 4:04:00 EDT, Height/Length Dosing, 107, kg, 10/18/21 4:04:00 EDT, Weight Dosing Abdominal pain, acute, left lower quadrant (R10.32: Left lower quadrant pain) Orders: doxycycline, 100 mg = 1 tab(s), Oral, BID, # 20 tab(s), Refills(s) 0, Pharmacy: [id number], 160, cm, 10/18/21 4:04:00 EDT, Height/Length Dosing, 107, kg, 10/18/21 4:04:00 EDT, Weight Dosing morphine, 2 mg = 1 mL, Injection, IV Push, Once, Stop date 10/18/21 11:23:00 EDT, STAT, Start date 10/18/21 11:23:00 EDT, 10/18/21 11:23:00 EDT Extracted from: Title:ED Note Author:Jeffy Das DO Date :10/18/21 Abdominal pain, acute, left lower quadrant (R10.32: Left lower quadrant pain) Orders: ketorolac, 30 mg = 1 mL, Injection, IV Push, Once, Stop date 10/18/21 4:10:00 EDT, STAT, Start date 10/18/21 4:10:00 EDT, 10/18/21 4:10:00 EDT ondansetron, 4 mg = 2 mL, Injection, IV Push, Once, Stop date 10/18/21 4:10:00 EDT, STAT, Start date 10/18/21 4:10:00 EDT, 10/18/21 4:10:00 EDT Sodium Chloride 0.9% intravenous solution, 1,000 mL, Soln-IV, IV, Once, Stop date 10/18/21 4:10:00 EDT, STAT, Start date 10/18/21 4:10:00 EDT, Infuse over 61, minute(s) Add on Test Automated Diff Basic Metabolic Panel CBC w/ Auto Diff CT Abdomen/Pelvis w/ Contrast eGFR Hepatic Function Panel Lactic Acid Lipase Level U Beta Hcg Qual UA With Cult Reflex US Pelvis Non-OB Complete [facility] [employer] Other History general Narrative - Reported* Type Description Date Medical History Problem Title : comp liance with medical treatment, Problem Description : compliance with medical treatment, Problem Comment : Done, Problem Status : Active,, Medical History Problem Title : MEDI SHEREE: Hypertension, Problem Status : Inactive,, Medical History Problem Title : MEDI SHEREE: No history of significant medical diseases, Problem Status : Resolved,, Medical History Problem Title : no k nown problems, Problem Description : no known problems, Problem Comment : F, Problem Status : Active,, Medical History Problem Title : past medical history E&M, Problem Description : past medical history E&M, Problem Comment : Hypertension Rapid Heartbeat, Problem Status : Active,, Medical History Problem Title : past medical history reviewed, Problem Description : past medical history reviewed, Problem Comment : reviewed - no changes required, Problem Status : Active,, Medical History Problem Title : Prob lems Reconciled, Problem Status : Active,, Medical History Problem Title : MCKEON SFUSION HISTORY: No history of receiving blood or blood product transfusion(s), Problem Status : Inactive,, Surgical History Problem Title : chol ecystectomy (gallbladder surgery), hx of, Problem Description : cholecystectomy (gallbladder surgery), hx of, Problem Comment : yes, Problem Status : Resolved, Surgical History Problem Title : Chol ecystectomy, Problem Status : Active, Surgical History Problem Title : Diag nostic laparoscopy, Problem Comment : dx lap - hydrosalpinx fallopian tube remnants, Problem Status : Active, Surgical History Problem Title : Laparoscopy, Pr oblem Status : Active, Surgical History Problem Title : past surgical history reviewed, Problem Description : past surgical history reviewed, Problem Comment : reviewed - no changes required, Problem Status : Inactive, Surgical History Problem Title : past surgical history reviewed, Problem Description : past surgical history reviewed, Problem Comment : reviewed - no changes required, Problem Status : Resolved, Surgical History Problem Title : surg ical procedures, hx of, Problem Description : surgical procedures, hx of, Problem Comment : Ablasion-2014 [id number] Cholecystectomy-2005 , Problem Status : Active, Hospitalization History see above [facility] Other History general Narrative - Reported* Type Description Date Medical History Problem Title : comp liance with medical treatment, Problem Description : compliance with medical treatment, Problem Comment : Done, Problem Status : Active,, Medical History Problem Title : MEDI SHEREE: Hypertension, Problem Status : Inactive,, Medical History Problem Title : MEDI SHEREE: No history of significant medical diseases, Problem Status : Resolved,, Medical History Problem Title : no k nown problems, Problem Description : no known problems, Problem Comment : F, Problem Status : Active,, Medical History Problem Title : past medical history E&M, Problem Description : past medical history E&M, Problem Comment : Hypertension Rapid Heartbeat, Problem Status : Active,, Medical History Problem Title : past medical history reviewed, Problem Description : past medical history reviewed, Problem Comment : reviewed - no changes required, Problem Status : Active,, Medical History Problem Title : Prob lems Reconciled, Problem Status : Active,, Medical History Problem Title : MCKEON SFUSION HISTORY: No history of receiving blood or blood product transfusion(s), Problem Status : Inactive,, Surgical History Problem Title : chol ecystectomy (gallbladder surgery), hx of, Problem Description : cholecystectomy (gallbladder surgery), hx of, Problem Comment : yes, Problem Status : Resolved, Surgical History Problem Title : Diag nostic laparoscopy, Problem Comment : dx lap - hydrosalpinx fallopian tube remnants, Problem Status : Active, Surgical History Problem Title : surg ical procedures, hx of, Problem Description : surgical procedures, hx of, Problem Comment : Ablasion-2014 [id number] Cholecystectomy-2005 , Problem Status : Active, Hospitalization History see above [facility] Other Hospital course Narrative No data available for this section [facility] Summary Purpose Family History No Family History Records FoundNo Family History Records FoundNo Family History Records FoundNo Family History Records FoundNo Family History Records Found Advance Directives No Advanced Directives Records FoundNo Advanced Directives Records FoundNo Advanced Directives Records FoundNo Advanced Directives Records FoundNo Advanced Directives Records Found Additional Source Comments INFORMATION SOURCE (unrecogn ized section and content) DATE CREATED AUTHOR 11/26/2017 [facility] DATE CREATED AUTHOR AUTHOR'S ORGANIZ ATION 07/10/2018 [facility] DATE CREATED AUTHOR AUTHOR'S ORGANIZ ATION 12/31/2021 [facility] DATE CREATED AUTHOR AUTHOR'S ORGANIZ ATION 09/25/2022 [facility] DATE CREATED AUTHOR AUTHOR'S ORGANIZ ATION 07/24/2023 [facility] REASON FOR VISIT (unrecogniz ed section and content) COVID +school noteCOVID + FOR RECORDS PERTAINING TO PATIENTS WHO ARE OR HAVE BEEN ENROLLED IN A CHEMICAL DEPENDENCY/SUBSTANCEABUSE PROGRAM, SOME INFORMATION MAY BE OMITTED. This clinical summary was aggregated from multiple sources. Caution should be exercised in using it in the provision of clinical care. This summary normalizes information from multiple sources, and as a consequence, information in this document may materially change the coding, format and clinical context of patient data. In addition, data may be omitted in some cases. CLINICAL DECISIONS SHOULD BE BASED ON THE PRIMARY CLINICAL RECORDS. [employer] provides no warranty or guarantee of the accuracy or completeness of information in this document.
--- NOTE | 2023-08-17 04:42 | ED.URI1 ---
HPI - URI/Sore Throat General Chief Complaint: Upper Respiratory Infection Stated Complaint: THROAT IS CLOSING UP Time Seen by Provider: 08/17/23 04:42 History of Present Illness HPI Narrative: feels like throat is closing for 3 days. Throat is sore no fever. Doesn't feel short of breath. No chest or abdominal pain Related Data Home Medications Medication Instructions Recorded Confirmed chlorthalidone 25 mg tablet 12.5 mg PO .am 12/04/22 12/04/22 lisinopril 20 mg tablet 20 mg PO BID 12/04/22 12/04/22 pindolol 5 mg tablet 20 mg PO DAILY 12/04/22 12/04/22 sertraline 50 mg tablet 50 mg PO Q24H 12/04/22 12/04/22 Previous Rx's Medication Instructions Recorded ketorolac 10 mg tablet 10 mg PO TID PRN pain #10 tabs 12/04/22 ondansetron 4 mg disintegrating 4 mg PO Q6H PRN nausea and 12/04/22 tablet vomiting #12 tabs oxycodone-acetaminophen 5 mg-325 1 tab PO Q6H PRN pain #12 tabs 12/04/22 mg tablet (Percocet) Allergies Allergy/AdvReac Type Severity Reaction Status Date / Time metoprolol [From Toprol XL] Allergy Intermediate Verified 12/04/22 20:39 Review of Systems ROS Status of ROS 10 or more systems reviewed and unremarkable except as noted in history and below [facility] Social History Smoking status: Never smoker Exam Constitutional Vital Signs, click to edit/add: Last Vital Signs Temp 98.2 F 08/17/23 04:40 Pulse 70 08/17/23 04:40 Resp 16 08/17/23 04:40 BP 146/87 H 08/17/23 04:40 Pulse Ox 98 08/17/23 05:14 O2 Del Method Room Air 08/17/23 05:14 Common normals: no apparent distress, average body habitus, oriented x3, no limitations, healthy appearing, alert and well nourished [facility] Common normals: normocephalic and head/scalp atraumatic Other: mild swelling of the uvula. Erythema of uvula and pharynx Eye Common normals: PERRL, EOMs intact bilaterally and conjunctivae normal Respiratory Common normals: normal respiratory effort, no retractions, no use of accessory muscles and clear to auscultation bilaterally Cardio Common normals: regular rate, regular rhythm, S1 normal heart sound and S2 normal heart sound Course Vital Signs Vital signs: Vital Signs Temperature 98.2 F 08/17/23 04:40 Pulse Rate 70 08/17/23 04:40 Respiratory Rate 16 08/17/23 04:40 Blood Pressure 146/87 H 08/17/23 04:40 Pulse Oximetry 98 08/17/23 04:40 Oxygen Delivery Method Room Air 08/17/23 04:40 Temperature 98.2 F 08/17/23 04:40 Pulse Rate 70 08/17/23 04:40 Respiratory Rate 16 08/17/23 04:40 Blood Pressure 146/87 H 08/17/23 04:40 Pulse Oximetry 98 08/17/23 05:14 Oxygen Delivery Method Room Air 08/17/23 05:14 MDM - URI/Sore Throat MDM Narrative Medical decision making narrative: patient presents with 3 day complaint of sensation of swelling in her throat that slowly progressed. Exam with mild swelling of the uvula and erythema of uvula and pharynx. No exudate. strep screen neg. Patient given solumedrol. xray soft tissue neck findings for possible epiglottitis . Patient given clindamycin and CT soft tissue neck ordered. [facility] Lab Data Labs: Lab Results 08/17/23 08/17/23 Range/Units 05:00 05:35 WBC 10.6 (4.0-11.0) 10^3/uL RBC 4.68 (4.20-5.40) 10^6/uL Hgb 13.2 (12.0-16.0) g/dL Hct 40.2 (36.0-48.0) % MCV 85.9 (81.0-99.0) fL MCH 28.2 (26.7-34.0) pg MCHC 32.8 (29.9-35.2) g/dL RDW 13.1 (11.0-15.0) % Plt Count 416 (150-450) 10^3/uL MPV 9.8 (9.5-13.5) fL Neut % (Auto) 65.0 (43.0-75.0) % Lymph % (Auto) 25.3 (20.5-60.0) % [place] % (Auto) 6.6 (1.7-12.0) % Eos % (Auto) 1.4 (0.9-7.0) % Baso % (Auto) 1.4 (0.2-2.0) % Neut # (Auto) 6.9 H (1.4-6.5) 10^3/uL Lymph # (Auto) 2.7 (1.2-3.8) 10^3/uL [place] # (Auto) 0.7 (0.3-0.8) 10^3/uL Eos # (Auto) 0.2 (0.0-0.7) 10^3/uL Baso # (Auto) 0.2 H (0.0-0.1) 10^3/uL Abs Immat Gran (auto) 0.03 (0.00-0.03) 10^3/uL Imm/Tot Granulo (auto) 0.3 (0.0-0.5) % Sodium 139 (136-145) mmol/L Potassium 3.3 L (3.5-5.1) mmol/L Chloride 103 (98-107) mmol/L Carbon Dioxide 27.4 (21.0-32.0) mmol/L Anion Gap 11.9 BUN 13.0 (7.0-18.0) mg/dL Creatinine 0.66 (0.55-1.02) mg/dL Est GFR ( Amer) >60 (>=60) Est GFR (Non-Af Amer) >60 (>=60) BUN/Creatinine Ratio 19.7 Glucose 112 H (74-106) mg/dL Calcium 9.0 (8.5-10.1) mg/dL Streptococcus Screen Negative Discharge Plan Discharge Chief Complaint: Upper Respiratory Infection Patient Disposition: Still a Patient Prescriptions / Home Meds: No Action chlorthalidone 25 mg tablet 12.5 mg PO .am lisinopril 20 mg tablet 20 mg PO BID pindolol 5 mg tablet 20 mg PO DAILY sertraline 50 mg tablet 50 mg PO Q24H ketorolac 10 mg tablet 10 mg PO TID PRN (Reason: pain) Qty: 10 0RF oxycodone-acetaminophen [Percocet] 5-325 mg tablet 1 tab PO Q6H PRN (Reason: pain) Qty: 12 0RF ondansetron 4 mg tablet,disintegrating 4 mg PO Q6H PRN (Reason: nausea and vomiting) Qty: 12 0RF Referrals: JOVITA WAITE [Primary Care Provider] - 1 week
[2023-08-17] MEDS: METHYLPREDNISOLONE SOD SUCC PF 125 MG/2 ML VIAL IVP (05:05)
--- NOTE | 2023-08-17 05:12 | XR_ITS ---
[address] [address] Patient Name: MARCELLA HOUSER MRN: [id number] date: 1975 Sex: F Assigned Patient Location: ER Current Patient Location: ER Accession/Order Number: [id number] Exam Date: 08/17/2023 05:20 Report Date: 08/17/2023 05:41 At the request of: JOELLE ZAMAN Procedure: XR soft tissue neck EXAM: XR soft tissue neck HISTORY: throat tightening COMPARISON: None. TECHNIQUE: Frontal and lateral views. FINDINGS: Question of some slight epiglottis thickening. Correlate for signs of epiglottitis. Aryepiglottic folds are not overtly thickened. Prevertebral paraspinal soft tissues are normal. Trachea and airway is patent. No opaque foreign body. Osseous structures are normal. Normal height and alignment of vertebrae. XR/XR soft tissue neck IMPRESSION: Question of early or mild epiglottitis. Electronically authenticated by: LATRICIA RODRIGUES Date: 08/17/2023 05:41
--- NOTE | 2023-08-17 05:12 | XR_ITS ---
[address] [address] Patient Name: MARCELLA HOUSER MRN: [id number] date: 1975 Sex: F Assigned Patient Location: ER Current Patient Location: ER Accession/Order Number: [id number] Exam Date: 08/17/2023 05:20 Report Date: 08/17/2023 05:40 At the request of: JOELLE ZAMAN Procedure: XR chest 2V EXAM: XR chest 2V HISTORY: short of breath COMPARISON: None. TECHNIQUE: PA and lateral chest. FINDINGS: Both lungs are clear and expanded. Well-defined pleural margins. Normal cardiac silhouette and vasculature. No mediastinal abnormality. Intact skeletal framework. XR/XR chest 2V IMPRESSION: Negative two-view chest. Electronically authenticated by: LATRICIA RODRIGUES Date: 08/17/2023 05:40
[2023-08-17 05:25] LABS: Basophils Absolute Auto 0.2 10^3/uL (0.0-0.1); Basophils Percent Auto 1.4 % (0.2-2.0); Eosinophils Absolute Auto 0.2 10^3/uL (0.0-0.7); Eosinophils Percent Auto 1.4 % (0.9-7.0); Hematocrit 40.2 % (36.0-48.0); Hemoglobin 13.2 g/dL (12.0-16.0); Immature Granulocytes Abs Auto 0.03 10^3/uL (0.00-0.03); Immature Granulocytes Pct Auto 0.3 % (0.0-0.5); Lymphocytes Absolute Auto 2.7 10^3/uL (1.2-3.8); Lymphocytes Percent Auto 25.3 % (20.5-60.0); Mean Corpuscular HGB Conc 32.8 g/dL (29.9-35.2); Mean Corpuscular Hemoglobin 28.2 pg (26.7-34.0); Mean Corpuscular Volume 85.9 fL (81.0-99.0); Mean Platelet Volume 9.8 fL (9.5-13.5); Monocytes Absolute Auto 0.7 10^3/uL (0.3-0.8); Monocytes Percent Auto 6.6 % (1.7-12.0); Neutrophils Absolute Auto 6.9 10^3/uL (1.4-6.5); Platelet Count 416 10^3/uL (150-450); Red Blood Count 4.68 10^6/uL (4.20-5.40); Red Cell Distribution Width 13.1 % (11.0-15.0); White Blood Count 10.6 10^3/uL (4.0-11.0)
[2023-08-17 05:43] LABS: Anion Gap 11.9; BUN Creatinine Ratio 19.7; Carbon Dioxide 27.4 mmol/L (21.0-32.0); Chloride 103 mmol/L (98-107); Estimated GFR (African America >60 (>=60); Estimated GFR (Non-African Ame >60 (>=60); Glucose 112 mg/dL (74-106); Potassium 3.3 mmol/L (3.5-5.1); Sodium 139 mmol/L (136-145)
[2023-08-17 05:49] LABS: Internal Control Within Normal Limits; Strep A Antigen Screen Negative
--- NOTE | 2023-08-17 06:13 | CT_ITS ---
[address] [address] Patient Name: MARCELLA HOUSER MRN: [id number] date: 1975 Sex: F Assigned Patient Location: ER Current Patient Location: [facility] Accession/Order Number: [id number] Exam Date: 08/17/2023 06:30 Report Date: 08/17/2023 06:59 At the request of: JOELLE ZAMAN Procedure: CT soft tissue neck w con EXAMINATION: CT soft tissue neck w con HISTORY: epiglottitis COMPARISON: XR soft tissue neck 08/17/2023 TECHNIQUE: Axial, Coronal, and Sagittal CT images created with IV contrast. Dose reduction techniques were achieved by using automated exposure control and/or adjustment of mA and/or kV according to patient size and/or use of iterative reconstruction technique. FINDINGS: NASOPHARYNX: No asymmetry of the fossae of Rosenmuller and torus tubarius. ORAL CAVITY: No visible mass. OROPHARYNX: No asymmetry of the facial and lingual tonsils. HYPOPHARYNX: No mass or other visible lesion. LARYNX: No mass or asymmetry of the vocal cords. SINUSES: No significant fluid or mucosal thickening. NECK GLANDS: No visible abnormality of the parotid, submandibular, and thyroid glands. LYMPH NODES: No pathological-appearing or enlarged lymph nodes. VASCULATURE: No suspicious abnormality. BONES: No significant osseous lesions. OTHER: No additional imaging findings. CT/CT soft tissue neck w con IMPRESSION: 1. Normal CT neck soft tissues. No enlargement of the epiglottis, parapharyngeal tonsillar, or appreciable airway narrowing. Electronically authenticated by: TERRI DELANEY Date: 08/17/2023 06:59
[2023-08-17] MEDS: CLINDAMYCIN PHOSPHATE/D5W 900 MG/50 ML PIGGYBACK 100 MG IV (06:55)
--- NOTE | 2023-08-17 07:30 | ED.GENADUL1 ---
HPI - General Adult General Chief complaint: Upper Respiratory Infection Stated complaint: THROAT IS CLOSING UP Time Seen by Provider: 08/17/23 04:42 Source: patient Mode of arrival: walk-in History of Present Illness HPI narrative: The patient was initially seen by Dr Rocha. Related Data Home Medications Medication Instructions Recorded Confirmed chlorthalidone 25 mg tablet 12.5 mg PO .am 12/04/22 12/04/22 lisinopril 20 mg tablet 20 mg PO BID 12/04/22 12/04/22 pindolol 5 mg tablet 20 mg PO DAILY 12/04/22 12/04/22 sertraline 50 mg tablet 50 mg PO Q24H 12/04/22 12/04/22 Previous Rx's Medication Instructions Recorded ketorolac 10 mg tablet 10 mg PO TID PRN pain #10 tabs 12/04/22 ondansetron 4 mg disintegrating 4 mg PO Q6H PRN nausea and 12/04/22 tablet vomiting #12 tabs oxycodone-acetaminophen 5 mg-325 1 tab PO Q6H PRN pain #12 tabs 12/04/22 mg tablet (Percocet) clindamycin HCl 300 mg capsule 300 mg PO Q6H 10 days #40 caps 08/17/23 ibuprofen 800 mg tablet 800 mg PO Q8H PRN pain #20 tabs 08/17/23 Allergies Allergy/AdvReac Type Severity Reaction Status Date / Time metoprolol [From Toprol XL] Allergy Intermediate Verified 12/04/22 20:39 PFSH PFSH Social History Smoking status: Never smoker Exam Constitutional Vital Signs, click to edit/add: Last Vital Signs Temp 98.2 F 08/17/23 04:40 Pulse 74 08/17/23 07:24 Resp 16 08/17/23 07:24 BP 119/72 08/17/23 06:00 Pulse Ox 98 08/17/23 07:24 O2 Del Method Room Air 08/17/23 05:14 Course Vital Signs Vital signs: Vital Signs Pulse Oximetry 98 08/17/23 03:45 Temperature 98.2 F 08/17/23 04:40 Pulse Rate 74 08/17/23 07:24 Respiratory Rate 16 08/17/23 07:24 Blood Pressure 119/72 08/17/23 06:00 Pulse Oximetry 98 08/17/23 07:24 Oxygen Delivery Method Room Air 08/17/23 05:14 Medical Decision Making MDM Narrative Medical decision making narrative: CT is negative. No evidence of epiglottitis or abscess. Differential Diagnosis Differential Diagnosis: Epiglottitis, abscess, strep Lab Data Lab results reviewed: Yes I reviewed the patient's lab results Labs: Lab Results 08/17/23 08/17/23 Range/Units 05:00 05:35 WBC 10.6 (4.0-11.0) 10^3/uL RBC 4.68 (4.20-5.40) 10^6/uL Hgb 13.2 (12.0-16.0) g/dL Hct 40.2 (36.0-48.0) % MCV 85.9 (81.0-99.0) fL MCH 28.2 (26.7-34.0) pg MCHC 32.8 (29.9-35.2) g/dL RDW 13.1 (11.0-15.0) % Plt Count 416 (150-450) 10^3/uL MPV 9.8 (9.5-13.5) fL Neut % (Auto) 65.0 (43.0-75.0) % Lymph % (Auto) 25.3 (20.5-60.0) % [place] % (Auto) 6.6 (1.7-12.0) % Eos % (Auto) 1.4 (0.9-7.0) % Baso % (Auto) 1.4 (0.2-2.0) % Neut # (Auto) 6.9 H (1.4-6.5) 10^3/uL Lymph # (Auto) 2.7 (1.2-3.8) 10^3/uL [place] # (Auto) 0.7 (0.3-0.8) 10^3/uL Eos # (Auto) 0.2 (0.0-0.7) 10^3/uL Baso # (Auto) 0.2 H (0.0-0.1) 10^3/uL Abs Immat Gran (auto) 0.03 (0.00-0.03) 10^3/uL Imm/Tot Granulo (auto) 0.3 (0.0-0.5) % Sodium 139 (136-145) mmol/L Potassium 3.3 L (3.5-5.1) mmol/L Chloride 103 (98-107) mmol/L Carbon Dioxide 27.4 (21.0-32.0) mmol/L Anion Gap 11.9 BUN 13.0 (7.0-18.0) mg/dL Creatinine 0.66 (0.55-1.02) mg/dL Est GFR ( Amer) >60 (>=60) Est GFR (Non-Af Amer) >60 (>=60) BUN/Creatinine Ratio 19.7 Glucose 112 H (74-106) mg/dL Calcium 9.0 (8.5-10.1) mg/dL Streptococcus Screen Negative Imaging Data CT neck: Radiologist's impression: ITS Impressions Chest X-Ray 08/17/23 05:12 IMPRESSION: Negative two-view chest. Electronically authenticated by: LATRICIA RODRIGUES Date: 08/17/2023 05:40 Soft Tissue Neck X-Ray 08/17/23 05:12 IMPRESSION: Question of early or mild epiglottitis. Electronically authenticated by: LATRICIA RODRIGUES Date: 08/17/2023 05:[address] 08/17/23 06:13 IMPRESSION: 1. Normal CT neck soft tissues. No enlargement of the epiglottis, parapharyngeal tonsillar, or appreciable airway narrowing. Electronically authenticated by: TERRI DELANEY Date: 08/17/2023 06:59 Discharge Plan Discharge Stand Alone Forms: Portal Instructions Chief Complaint: Upper Respiratory Infection Clinical Impression: Pharyngitis Patient Disposition: Home, Self-Care Time of Disposition Decision: 07:27 Condition: Good Mode of Transportation: Private Vehicle Prescriptions / Home Meds: New clindamycin HCl 300 mg capsule 300 mg PO Q6H 10 Days Qty: 40 0RF ibuprofen 800 mg tablet 800 mg PO Q8H PRN (Reason: pain) Qty: 20 0RF No Action chlorthalidone 25 mg tablet 12.5 mg PO .am lisinopril 20 mg tablet 20 mg PO BID pindolol 5 mg tablet 20 mg PO DAILY sertraline 50 mg tablet 50 mg PO Q24H ketorolac 10 mg tablet 10 mg PO TID PRN (Reason: pain) Qty: 10 0RF oxycodone-acetaminophen [Percocet] 5-325 mg tablet 1 tab PO Q6H PRN (Reason: pain) Qty: 12 0RF ondansetron 4 mg tablet,disintegrating 4 mg PO Q6H PRN (Reason: nausea and vomiting) Qty: 12 0RF Instructions: Pharyngitis (ED) Referrals: JOVITA WAITE [Primary Care Provider] - 1 week
== END 2023-08-17 07:37 | disposition home or self-care (01) ==
PROVIDERS: Internal Medicine; Emergency Provider Emergency Medicine; PCP Nurse Practitioner Family
DX: J02.9 Acute pharyngitis, unspecified (principal); Z79.899 Other long term (current) drug therapy
CPT/HCPCS: 36415; 70360; 70491; 71046; 80048; 85025; 87070; 87880; 96365; 96375; 99285; J2930; Q9967

== ENCOUNTER 2023-10-03 13:45 | Outpatient (OUT) | payer BC, SELFPAY ==
--- NOTE | 2023-10-03 14:00 | CA_ITS ---
Patient Name: MARCELLA HOUSER MR#: [id number] : 1975 Exam Date: 10/03/2023 Ordering Doctor: DIANE GRECO ECHOCARDIOGRAM REPORT PROCEDURE: CA ECHO DOPPLER COMPLETE INDICATIONS: Diastolic dysfunction, hypertension COMPARISON: None. DESCRIPTION: COMPLETE ECHOCARDIOGRAM Real-time transthoracic echocardiography with 2D, M-mode, spectral and color flow Doppler performed. QUALITY: Technical quality was good. 63 , 230#, BSA 2.05, BP 128/84 LEFT VENTRICLE: Normal chamber size. Normal left ventricular wall thickness. LV EF: Global left ventricular systolic function is normal; visually estimated ejection fraction Is 60 to 65%. No significant wall motion abnormalities. DIASTOLIC: Normal diastolic function. ATRIAL SEPTUM: Inadequately seen. LEFT ATRIUM: Normal chamber size. RIGHT ATRIUM: Normal chamber size. RIGHT VENTRICLE: Normal chamber size. Normal right ventricular systolic function. TRICUSPID VALVE: Normal mobility and thickness. No stenosis with no regurgitation. Able to assess right-sided pressures due to lack of measurable tricuspid regurgitation. MITRAL VALVE: Normal mobility and thickness. No evidence of mitral valve stenosis. There is no mitral annular calcification. Trivial mitral regurgitation. AORTIC VALVE: Normal trileaflet appearance. No visible sclerosis. Normal leaflet mobility. No evidence of aortic valve stenosis. No aortic regurgitation. AORTIC ROOT: Normal diameter and appearance. Ascending aorta is normal in size. PULMONIC VALVE: Normal thickness and mobility. No stenosis. No regurgitation. PERICARDIUM: No evidence of pericardial effusion. IVC: Not well visualized. CONCLUSION: 1. Global left ventricular systolic function is normal; visually estimated ejection fraction is 60 to 65% 2. Normal right ventricular size and systolic function 3. Normal diastolic function 4. No significant valvular abnormalities Adult Echocardiography Procedure Report Left Ventricle LVEDD (3.7 - 5.6 cm): 4.51 cm LVESD (2.2 - 4.0 cm): 2.63 cm LVIVS thickness (0.6 - 1.2 cm): 1.02 cm LVPW thickness (0.5 - 1.0 cm): 0.92 cm e': 0.09 m/s E - e': 7.61 LVOT Max Gradient: 7.84 mm[Hg] LVOT Area (cm2): 1.40 m/s Peak Velocity (LVOT): 1.40 m/s Mean Velocity (LVOT): 1.01 m/s LVOT Diameter 2.11 cm Left Atrium LA Volume Index (2D A2C): 28.62 ml/m2 Left Atrium Systolic Dimension: 4.51 cm Mitral Valve MV E to A Ratio: 0.82, 0.83 Mitral Valve A-Wave Peak Velocity: 0.87 m/s Mitral Valve E-Wave Peak Velocity: 0.72 m/s Right Ventricle Aorta AO Root Diam: 3.04 cm Ascending Ao Diam: 2.91 cm Aortic Valve AoV Area (Peak Karel): 2.77 cm2, 2.77 cm2 AoV Area (VTI): 2.77 cm2, 2.77 cm2 Peak Velocity(Antegrade Flow): 1.77 m/s Peak Gradient(Antegrade Flow): 12.56 mm[Hg] Mean Velocity(Antegrade Flow): 1.25 m/s Mean Gradient(Antegrade Flow): 7.02 mm[Hg] Velocity Time Integral: 36.28 cm Tricuspid Valve Pulmonic Valve Peak Velocity: 1.33 m/s Peak Gradient: 7.23 mm[Hg], 6.85 mm[Hg] Right Atrium Right Atrium Systolic Pressure: 35.97 ml, 35.97 ml Dictated by: Lisa Farooq M.D. on 10/03/2023 at 16:34 Approved by: Lisa Farooq M.D. on 10/03/2023 at 16:37
== END 2023-10-03 13:46 | disposition home or self-care (01) ==
LOC: CARD 13:45
PROVIDERS: PCP Nurse Practitioner Family; Visit Provider Nurse Practitioner
DX: I34.0 Nonrheumatic mitral (valve) insufficiency (principal); I11.9 Hypertensive heart disease without heart failure
CPT/HCPCS: 93306

== ENCOUNTER 2023-10-29 14:30 | Emergency (ER) | payer BC, SELFPAY ==
[2023-10-29 14:53] VITALS: BP 184/98; PULSE 70; TEMP 37; O2SAT 98; BMI 40.7
--- NOTE | 2023-10-29 15:21 | ED_ITS ---
HPI - Abdominal Pain General Chief Complaint: Abdominal Pain Stated Complaint: ABDOMINAL PAIN Time Seen by Provider: 10/29/23 15:00 Source: patient Mode of arrival: walk-in History of Present Illness HPI narrative: Patient presents to ED complaining of left-sided abdominal pain. She said it woke her up from sleep last night. She said she got up to go to the bathroom and noticed the left-sided pain upper and lower left side and also left flank. She said it is felt all day like a tooth ache that was dull but persistent. No nausea vomiting diarrhea constipation. No fever. Patient has no history of kidney stones. She did have her gallbladder removed in the past. She does still have her appendix. She has had 1 ovary removed but she forgets which 1 due to history of PCOS. No fevers. Patient states at work when she was on her f eet all day just started to become more uncomfortable so she came in to ED for further evaluation. Related Data Home Medications ?Medication ?Instructions ?Recorded ?Confirmed chlorthalidone 25 mg tablet 12.5 mg PO .am 12/04/22 10/29/23 lisinopril 20 mg tablet 20 mg PO BID 12/04/22 10/29/23 pindolol 5 mg tablet 20 mg PO DAILY 12/04/22 10/29/23 sertraline 50 mg tablet 50 mg PO Q24H 12/04/22 10/29/23 Previous Rx's ?Medication ?Instructions ?Recorded ketorolac 10 mg tablet 10 mg PO TID PRN pain #10 tabs 12/04/22 clindamycin HCl 300 mg capsule 300 mg PO Q6H 10 days #40 caps 08/17/23 ibuprofen 800 mg tablet 800 mg PO Q8H PRN pain #20 tabs 08/17/23 Allergies Allergy/AdvReac Type Severity Reaction Status Date / Time metoprolol [From Toprol XL] Allergy Intermediate Verified 12/04/22 20:39 Review of Systems ROS Status of ROS 10 or more systems reviewed and unremark able except as noted in history and below PFSH PFSH Social History Smoking status: Never smoker Exam Narrative Exam Narrative: Time Seen: [] Vital Signs: [Per nurse's notes.] General: [Alert] Skin: [Warm, dry, no rash.] Head: [Normocephalic, atraumatic.] Neck: [Supple, trachea midline.] Eye: [Pupils are equal, round and reactive to light, extraocular movements are intact, normal conjunctiva.] Ears, nose, mouth and throat: oral mucosa moist. Cardiovascular: [Regular rate and rhythm, no murmur.] Respiratory: [Lungs are clear to auscultation, respirations are non-labored, breath sounds are equal.] Chest wall: [No tenderness, no deformity.] Gastrointestinal: [Soft, Mild left-sided tenderness non distended, normal bowel sounds.] MSK: 5 out of 5 muscle strength x 4 extremities no calf pain or edema Lymphatics: [No lymphadenopathy.] Psychiatric: [Cooperative, appropriate mood & affect.] Neurological: [Alert and oriented to person, place, time, and situation, no focal neurological deficit observed.] Constitutional Vital Signs, click to edit/add: Last Vital Signs Temp 98.6 F 10/29/23 14:53 Pulse 70 10/29/23 14:53 Resp 16 10/29/23 14:53 BP 184/98 H 10/29/23 14:53 Pulse Ox 98 10/29/23 14:53 O2 Del Method Room Air 10/29/23 14:53 Course Vital Signs Vital signs: Vital Signs Temperature 98.6 F 10/29/23 14:53 Pulse Rate 70 10/29/23 14:53 Respiratory Rate 16 10/29/23 14:53 Blood Pressure 184/98 H 10/29/23 14:53 Pulse Oximetry 98 10/29/23 14:53 Oxygen Delivery Method Room Air 10/29/23 14:53 Temperature 98.6 F 10/29/23 14:53 Pulse Rate 70 10/29/23 14:53 Respiratory Rate 16 10/29/23 14:53 Blood Pressure 184/98 H 10/29/23 14:53 Pulse Oximetry 98 10/29/23 14:53 Oxygen Delivery Method Room Air 10/29/23 14:53 MDM - Abdominal Pain MDM Narrative Medical decision making narrative: Patient's labs show elevated leukocyte esterase in her urine. CT scan shows diverticulosis but no diverticulitis. No evidence of abscess or bowel obstruction. I will send the patient home on Cipro for treatment of UTI as well as early signs of diverticulitis. Patient was instructed to follow-up with GI, [facility]. Return to ER if worsening symptoms severe pain vomiting fevers or anything else that concerns you. Patient's comfortable care plan for home Differential Diagnosis Differential diagnosis: Likely abdominal pain, calculus of kidney, constipation, diverticulitis and small bowel obstruction Medical Records Attestation: I reviewed the patient's medical records. Lab Data Attestation: I reviewed the patient's lab results. Labs: Lab Results 10/29/23 10/29/23 Range/Units 15:32 16:25 WBC 12.9 H (4.0-11.0) 10^3/uL RBC 4.48 (4.20-5.40) 10^6/uL Hgb 12.5 (12.0-16.0) g/dL Hct 37.7 (36.0-48.0) % MCV 84.2 (81.0-99.0) fL MCH 27.9 (26.7-34.0) pg MCHC 33.2 (29.9-35.2) g/dL RDW 13.2 (11.0-15.0) % Plt Count 455 H (150-450) 10^3/uL MPV 9.8 (9.5-13.5) fL Neut % (Auto) 69.0 (43.0-75.0) % Lymph % (Auto) 21.4 (20.5-60.0) % [place] % (Auto) 7.2 (1.7-12.0) % Eos % (Auto) 1.2 (0.9-7.0) % Baso % (Auto) 0.9 (0.2-2.0) % Neut # (Auto) 8.9 H (1.4-6.5) 10^3/uL Lymph # (Auto) 2.8 (1.2-3.8) 10^3/uL [place] # (Auto) 0.9 H (0.3-0.8) 10^3/uL Eos # (Auto) 0.2 (0.0-0.7) 10^3/uL Baso # (Auto) 0.1 (0.0-0.1) 10^3/uL Abs Immat Gran (auto) 0.04 H (0.00-0.03) 10^3/uL Imm/Tot Granulo (auto) 0.3 (0.0-0.5) % Sodium 136 (136-145) mmol/L Potassium 3.0 L (3.5-5.1) mmol/L Chloride 99 (98-107) mmol/L Carbon Dioxide 27.5 (21.0-32.0) mmol/L Anion Gap 12.5 BUN 18.0 (7.0-18.0) mg/dL Creatinine 0.75 (0.55-1.02) mg/dL Est GFR ( Amer) >60 (>=60) Est GFR (Non-Af Amer) >60 (>=60) BUN/Creatinine Ratio 24.0 Glucose 114 H (74-106) mg/dL Calcium 9.3 (8.5-10.1) mg/dL Total Bilirubin 0.6 (0.2-1.0) mg/dL AST 17 (15-37) U/L ALT 36 (14-59) U/L Alkaline Phosphatase 56 (46-116) U/L Total Protein 8.1 (6.4-8.2) g/dL Albumin 3.7 (3.4-5.0) g/dL Globulin 4.4 g/dL Albumin/Globulin Ratio 0.8 Urine Color Lt. yellow (YELLOW) Urine Clarity Clear (CLEAR) Urine pH 6.0 (5.0-9.0) Ur Specific [place] 1.020 (1.005-1.025) Urine Protein Negative (NEG/TRACE) mg/dL Urine Glucose (UA) Negative (NEGATIVE) mg/dL Urine Ketones Negative (NEGATIVE) mg/dL Urine Occult Blood Negative (NEGATIVE) Urine Nitrite Negative (NEGATIVE) Urine Bilirubin Negative (NEGATIVE) Urine Urobilinogen 0.2 (0.2-1.0) EU/dL Ur Leukocyte Esterase Moderate A (NEGATIVE) Imaging Data CT scan - abdomen: Radiologist's impression: ITS Impressions Abdomen/Pelvis CT 10/29/23 15:24 IMPRESSION: No acute abnormality in the abdomen or pelvis. No obstructive uropathy. Electronically authenticated by: ZO ROPER Date: 10/29/2023 15:54 Discharge Plan Discharge Stand Alone Forms: Portal Instructions Chief Complaint: Abdominal Pain Clinical Impression: UTI (urinary tract infection) Patient Disposition: Home, Self-Care Time of Disposition Decision: 17:24 Mode of Transportation: Private Vehicle Prescriptions / Home Meds: No Action chlorthalidone 25 mg tablet 12.5 mg PO .am lisinopril 20 mg tablet 20 mg PO BID pindolol 5 mg tablet 20 mg PO DAILY sertraline 50 mg tablet 50 mg PO Q24H ketorolac 10 mg tablet 10 mg PO TID PRN (Reason: pain) Qty: 10 0RF clindamycin HCl 300 mg capsule 300 mg PO Q6H 10 Days Qty: 40 0RF ibuprofen 800 mg tablet 800 mg PO Q8H PRN (Reason: pain) Qty: 20 0RF Print Language: Estonian Instructions: Urinary Tract Infection in Women (ED) Referrals: JOVITA WAITE [Primary Care Provider] - 1 week CHUY BATISTA [Physician] - 1 week
--- NOTE | 2023-10-29 15:24 | CT_ITS ---
[address] [address] Patient Name: MARCELLA HOUSER MRN: [id number] date: 1975 Sex: F Assigned Patient Location: ER Current Patient Location: ER Accession/Order Number: [id number] Exam Date: 10/29/2023 15:21 Report Date: 10/29/2023 15:54 At the request of: AYAH DELANEY Procedure: CT abdomen pelvis wo con CT ABDOMEN/PELVIS WITHOUT IV CONTRAST. INDICATION: LLQ pain L flank pain COMPARISON: 12/04/2022 TECHNIQUE: Contiguous axial images were obtained from the lung bases to the pelvic floor without intravenous or oral contrast. Coronal and sagittal reformations are provided. FINDINGS: LOWER LUNGS: Clear. LIVER/BILIARY TREE: No discrete lesion. No intrahepatic ductal dilatation. Hepatic steatosis. GALLBLADDER: Status post cholecystectomy.. CBD: Normal CBD. SPLEEN: Mild splenomegaly. PANCREAS: No appreciable peripancreatic fluid. No pancreatic ductal dilatation. No discrete lesion. ADRENALS: Normal. KIDNEYS: No hydronephrosis. No radiopaque calculus. STOMACH AND BOWEL: Stomach is unremarkable. No dilated bowel loops. No bowel wall thickening. Colonic diverticulosis without acute diverticulitis. APPENDIX: Normal appendix. PERITONEAL CAVITY: No fluid. No fat stranding. ABDOMINAL WALL: No subcutaneous stranding. No subcutaneous fluid collection. LYMPH NODES: No mesenteric or retroperitoneal lymphadenopathy by CT criteria. ABDOMINAL AORTA: No aneurysm. PELVIS: No acute abnormality. MUSCULOSKELETAL: No acute osseous abnormality. CT/CT abdomen pelvis wo con IMPRESSION: No acute abnormality in the abdomen or pelvis. No obstructive uropathy. Electronically authenticated by: ZO ROPER Date: 10/29/2023 15:54
[2023-10-29 15:40] LABS: Basophils Absolute Auto 0.1 10^3/uL (0.0-0.1); Basophils Percent Auto 0.9 % (0.2-2.0); Eosinophils Absolute Auto 0.2 10^3/uL (0.0-0.7); Eosinophils Percent Auto 1.2 % (0.9-7.0); Hematocrit 37.7 % (36.0-48.0); Hemoglobin 12.5 g/dL (12.0-16.0); Immature Granulocytes Abs Auto 0.04 10^3/uL (0.00-0.03); Immature Granulocytes Pct Auto 0.3 % (0.0-0.5); Lymphocytes Absolute Auto 2.8 10^3/uL (1.2-3.8); Lymphocytes Percent Auto 21.4 % (20.5-60.0); Mean Corpuscular HGB Conc 33.2 g/dL (29.9-35.2); Mean Corpuscular Hemoglobin 27.9 pg (26.7-34.0); Mean Corpuscular Volume 84.2 fL (81.0-99.0); Mean Platelet Volume 9.8 fL (9.5-13.5); Monocytes Absolute Auto 0.9 10^3/uL (0.3-0.8); Monocytes Percent Auto 7.2 % (1.7-12.0); Neutrophils Absolute Auto 8.9 10^3/uL (1.4-6.5); Platelet Count 455 10^3/uL (150-450); Red Blood Count 4.48 10^6/uL (4.20-5.40); Red Cell Distribution Width 13.2 % (11.0-15.0); White Blood Count 12.9 10^3/uL (4.0-11.0)
[2023-10-29 16:07] LABS: Alanine Aminotransferase 36 U/L (14-59); Albumin Globulin Ratio 0.8; Albumin Level 3.7 g/dL (3.4-5.0); Alkaline Phosphatase 56 U/L (46-116); Anion Gap 12.5; Aspartate Amino Transferase 17 U/L (15-37); Bilirubin Total 0.6 mg/dL (0.2-1.0); Calcium 9.3 mg/dL (8.5-10.1); Carbon Dioxide 27.5 mmol/L (21.0-32.0); Chloride 99 mmol/L (98-107); Estimated GFR (African America >60 (>=60); Estimated GFR (Non-African Ame >60 (>=60); Globulin 4.4 g/dL; Glucose 114 mg/dL (74-106); Sodium 136 mmol/L (136-145); Total Protein 8.1 g/dL (6.4-8.2)
[2023-10-29] MEDS: 0.9 % SODIUM CHLORIDE 1,000 ML 999 ML IV (16:29)
[2023-10-29] MEDS: POTASSIUM CHLORIDE 10 MEQ ER TABLET 40 MEQ PO (16:36)
[2023-10-29 17:10] LABS: Bilirubin Urine NEGATIVE (NEGATIVE); Blood Urine NEGATIVE (NEGATIVE); Clarity Urine CLEAR (CLEAR); Color Urine LT. YELLOW (YELLOW); Glucose Urine UA NEGATIVE (NEGATIVE); Ketones Urine NEGATIVE (NEGATIVE); Leukocyte Esterase Urine MODERATE (NEGATIVE); Nitrite Urine NEGATIVE (NEGATIVE); Protein Urine NEGATIVE (NEG/TRACE); Urobilinogen Urine 0.2 EU/dL (0.2-1.0)
[2023-10-29 17:16] LABS: Urine Microscopic Indicated YES
[2023-10-29 17:18] LABS: Bacteria Urine SMALL #/HPF (NONE SEEN); Cast Seen? NONE SEEN #/LPF (NONE SEEN); Crystals Seen? None Seen #/HPF (None Seen); Mucus Urine NONE SEEN (NONE SEEN); RBC Urine NONE SEEN #/HPF (0-2); Squamous Epithelial Cell Urine FEW #/LPF (NONE/RARE)
[2023-10-29 17:19] LABS: Urine Culture Indicated YES
[2023-10-29 17:24] VITALS: BP 129/75; PULSE 69; O2SAT 96
== END 2023-10-29 17:36 | disposition home or self-care (01) ==
PROVIDERS: Emergency Provider Emergency Medicine; PCP Nurse Practitioner Family
DX: N39.0 Urinary tract infection, site not specified (principal); Z90.49 Acquired absence of other specified parts of digestive tract; Z90.721 Acquired absence of ovaries, unilateral; K57.30 Diverticulosis of large intestine without perforation or abscess without bleeding
CPT/HCPCS: 36415; 74176; 80053; 81001; 85025; 87086; 99285

== ENCOUNTER 2023-11-01 10:09 | Outpatient (REF) | payer BC, SELFPAY ==
--- OUTSIDE RECORDS SUMMARY | 2023-11-01 10:14 | XMS_ITS | CCD ---
Author Organization [facility] Care Team Providers Care Terrazzo Supervisor Name Role Phone ADAMOWICZ, ISAAC J Unavailable Unavailable ADAMOWICZ, ISAAC J Unavailable Unavailable ADAMOWICZ, ISAAC J Unavailable Unavailable ADAMOWICZ, ISAAC J Unavailable Unavailable ADAMOWICZ, ISAAC J Unavailable Unavailable ADAMOWICZ, ISAAC J Unavailable Unavailable ADAMOWICZ, ISAAC J Unavailable Unavailable ADAMOWICZ, ISAAC J Unavailable Unavailable ADAMOWICZ, ISAAC J Unavailable Unavailable ADAMOWICZ, ISAAC J Unavailable Unavailable CANDIS HERNANDEZ Unavailable Unavailable SHANAE LUNA (POWER PLANT SUPERVISOR) Unavailable Unavailabl e ADAMOWICZ, ISAAC J Unavailable Unavailable ADAMOWICZ, ISAAC J Unavailable Unavailable ADAMOWICZ, ISAAC J Unavailable Unavailable JESUS CHEATHAM Unavailable Unavailab le ADAMOWICZ, ISAAC J Unavailable Unavailable SHANAE LUNA (POWER PLANT SUPERVISOR) Unavailable Unavailabl e SHANAE LUNA (POWER PLANT SUPERVISOR) Unavailable Unavailabl e ADAMOWICZ, ISAAC J Unavailable Unavailable ADAMOWICZ, ISAAC J Unavailable Unavailable JESUS CHEATHAM Unavailable Unavailab JOSEPH Arceo Unavailable Unavailab le ADAMOWICZ, ISAAC J Unavailable Unavailable ADAMOWICZ, ISAAC J Unavailable Unavailable ADAMOWICZ, ISAAC J Unavailable Unavailable SHANAE LUNA (POWER PLANT SUPERVISOR) Unavailable Unavailabl e ADAMOWICZ, ISAAC J Unavailable Unavailable ADAMOWICZ, ISAAC J Unavailable Unavailable PHYSICIAN, DEFAULT Admitting Unavailable PHYSICIAN, DEFAULT Attending Unavailable PHYSICIAN, DEFAULT Admitting Unavailable PHYSICIAN, DEFAULT Attending Unavailable KAILYN WAITE Primary Care Physician [phone] DR GUSTAVO GREWAL Consulting Unavailable KAILYN WAITE Primary Care Unavailable SHERMAN Hernandez, DR JUÁREZ Attending Unavailable SHERMAN ., DR JUÁREZ Admitting Unavailable AGUBOSIM, ALLI Consulting Unavailable LONG, WADE Consulting Unavailable MARIANN, KAILYN Primary Care Unavailable MARIANN, KAILYN Attending Unavailable MARIANN, KAILYN Admitting Unavailable MARIANN, KAILYN Consulting Unavailable MARIANN, KAILYN Primary Care Unavailable MARIANN, KAILYN Attending Unavailable MARIANN, KAILYN Admitting Unavailable DR SHADE ROMO V Consulting Unavailable MARIANN, KAILYN Primary Care Unavailable MARIANN, KAILYN Attending Unavailable MARIANN, KAILYN Admitting Unavailable MARIANN, KAILYN Consulting Unavailable KADI ., HARRY Consulting Unavailable MARIANN, KAILYN Primary Care Unavailable KADI ., HARRY Attending Unavailable KADI ., HARRY Admitting Unavailable ZIEBER, DR TERRI Lynn Consulting Unavailable MARIANN, KAILYN Primary Care Unavailable KADI ., HARRY Attending Unavailable KADI ., HARRY Admitting Unavailable KADI ., HARRY Consulting Unavailable MARIANN, KAILYN Consulting Unavailable MARIANN, KAILYN Primary Care Unavailable FANNIE, MARY Attending Unavailable FANNIE, MARY Admitting Unavailable ZICHICA, DR TERRI Moore Unavailable MARIANN, KAILYN Primary Care Unavailable MARIANN, KAILYN Attending Unavailable MARIANN, KAILYN Admitting Unavailable MARIANN, KAILYN Consulting Unavailable MARIANN, KAILYN Consulting Unavailable MARIANN, KAILYN Primary Care Unavailable MARIANN, KAILYN Attending Unavailable MARIANN, KAILYN Admitting Unavailable MARIANN, KAILYN Primary Care Unavailable MARIANN, KAILYN Attending Unavailable MARIANN, KAILYN Admitting Unavailable TERRI LANDAEVRDE Consulting Unavailable JAKE ., SEYMOUR Attending Unavailable JAKE ., SEYMOUR Admitting Unavailable MARIANN, KAILYN Primary Care Unavailable JAKE ., SEYMOUR Consulting Unavailable SHERMAN ., DR JUÁREZ Consulting Unavailable MARIANN, KAILYN Primary Care Unavailable SHERMAN ., DR JUÁREZ Attending Unavailable SHERMAN ., DR JUÁREZ Admitting Unavailable [place] Unavailable FANNIE, MARY Attending Unavailable GERALD MANCINI Attending Unavailable Allergies Allergy Classification Reported Allergen(s) Allergy Type Date of Onset Reaction(s) Facility (4 sources) metoprolol; Translations: [METOPROLOL] Drug Allergy 6 AOF, heart racing [facility] Repository (2 sources) Pyridoxal Drug Allergy 3 [facility] Repository (3 sources) patient allergy list reviewed by nurse or physicia Propensity to adverse reactions 7 Comment:Done [employer] Consulting Other (3 sources) Allergies Reconciled Propensity to adverse reactions Unknown [employer] Other Medications Current Medications Medication Drug Class(es) Dates Sig (Normalized) Sig (Original) acetaminophen 325 mg / oxyCODONE hydrochloride 5 mg oral tablet (2 sources) Opioid Agonist Start: 10-18-2021 Percocet 5 mg-325 mg oral tablet 1 tab(s), Oral, q6hr as needed for pain, 12 tab(s), Refill(s) 0, [facility]/pharmacy #[id number], 160, cm, 10/18/21 4:04:00 EDT, Height/Length Dosing, 107, kg, 10/18/21 4:04:00 EDT, Weight Dosing Start Date: 10/18/21 Status: Ordered azithromycin 250 mg oral tablet (6 sources) Macrolide Antimicrobial Start: 03-03-2023 Azithromycin 250 MG as directed Orally 2 tabs po today, then 1 tab daily x 4 more days for 5 Jun, Active Chlorthalidone (4 sources) Thiazide-like Diuretic Start: 09-21-2023 Chlorthalidone Active MG PO September 21, 2023 12:00am Chlorthalidone 2 5 MG 1/2 tablet once a day Active doxycycline hyclate 100 mg oral tablet (2 sources) Tetracycline-class Drug Start: 10-18-2021 take 1 tablet by mouth twice daily doxycycline hyclate 100 mg Tab 100 mg = 1 tab(s), Oral, BID, # 20 tab(s), Refills(s) 0, Pharmacy: [facility]/pharmacy #[id number], 160, cm, 10/18/21 4:04:00 EDT, Height/Length [...] day(s), # 20 tab(s), Refills(s) 0, [id number], 160, cm, 10/20/21 18:21:00 EDT, Height/Length Dosing, 107, kg, 10/20/21 18:21:00 EDT, Weight Dosing Start Date: 10/20/21 Stop Date: 10/25/21 Status: Ordered lisinopril 20 mg oral tablet (8 sources) Angiotensin Converting Enzyme Inhibitor Start: 09-21-2023 Lisinopril Active MG PO September 21, 2023 12:00am Start: 11-10-2017 take 1 tablet by marcus th once daily in the evening, then take 2 tablets by mouth in the morning, then take 1 tablet by mouth at bedtime lisinopril 2.5 mg Tab 2.5 mg = 1 tab(s), Oral, qPM, Take 5 mg in the morning and 2.5 mg at bedtime, # 30 tab(s), Refills(s) 0, [id number] Start Date: 11/10/17 Status: Ordered Start: 11-10-2017 take 1 tablet by marcus th once daily lisinopril 5 mg Tab 5 mg = 1 tab(s), Oral, Daily, Refills(s) 0 Start Date: 11/10/17 Status: Ordered Start: 07-08-2017 take 1 tablet by marcus th twice daily Lisinopril 20 MG Lisinopril( 20MG Oral 1.17457 Tablet ) Active -Hx Entry Oral for 0 Qty: 60; Refills: 10; patient taking 20 mg BID Jun, Active pindolol 5 mg oral tablet (6 sources) beta-Adrenergic Yandel Start: 09-21-2023 Pindol ol Active MG PO September 21, 2023 12:00am Start: 11-07-2021 Pindolol 10MG Pindolol( 10MG Oral two times daily ) Active -Hx Entry Oral two times daily for 0 *Pick strength-form from [employer] for eRX* Nov, Active Start: 05-22-2017 take 1 tablet by marcus th twice daily pindolol 5 mg oral tablet 5 mg = 1 tab(s), Oral, BID, Refills(s) 0 Start Date: 05/22/17 Status: Ordered sertraline 50 mg oral tablet (6 sources) Serotonin Reuptake Inhibitor Start: 09-21-2023 Sertraline Active MG PO September 21, 2023 12:00am Start: 11-10-2017 sertraline 100 mg Tab 50 mg = 0.5 tab(s), Oral, Bedtime, Refills(s) 0 Start Date: 11/10/17 Status: Ordered Start: 10-14-2012 Sertraline HCl 50MG Sertraline HCl 50MG, # 0.00, 10/14/2012, No Refill. Active for 0 *Pick strength-form from [employer] for eRX* October, Active Problems Active Problems Problem Classification Problem Date Documented Date Episodic/Chronic Abdominal pain (9 sources) Left lower quadrant pain; Translations: [Left lower quadrant pain] Onset: 10-18-2021 Episodic Acute and chronic tonsillitis (3 sources) Hypertrophy of tonsils; Translations: [Hypertrophy of tonsils] Onset: 01-08-2018 Chronic Acute bronchitis (3 sources) Acute bronchitis; Translations: [Acute bronchitis due to other specified organisms] Episodic Anxiety disorders (8 sources) Generalized anxiety disorder; Translations: [Anxiety disorder] Onset: 07-08-2017 Resolved: 10-23-2021 09-21-2023 Chronic Bacterial infection; unspecified site (2 sources) [...] [Hypertensive heart disease without heart failure] Onset: 09-13-2023 Chronic Inflammatory diseases of female pelvic organs (3 sources) Chronic salpingitis; Translations: [Chronic salpingitis] Onset: 10-18-2021 Chronic Inflammatory diseases of female pelvic organs (3 sources) Acute vaginitis; Translations: [Acute vaginitis] Episodic Other aftercare (1 source) Other half-way (current) drug therapy; Translations: [OTH CUSTOMER CONTACT REPRESENTATIVE CURRENT DRUG THERAPY] Onset: 09-24-2022 Episodic Other [...] Test Name Value Interpretation Reference Range Facility 36on 10-09-2023 36 Regarding echo from 10/03/2023: Mary Greco, BEATRICE Holliday- Let her know echo is absolutely normal, everything here looks good- no concerns from a heart perspective- LM on patient's VM. She has apt on 10/23. Normal [facility] Office Visiton 07-23-2023 Follow-up visit [id number] MadivarunNettie Daniels 1975 F Date Provider Department Center 07/23/2023 120-MARY GRECO [facility] Family History Problem Relation Age of Onset No Known Problems Mother No Known Problems Father Family Status - Relation Status Age at Mother Father Level of Service:05457 [place] OFFICE/OUTPATIENT ESTABLISHED MOD MDM 30 MIN Normal [facility] Office Visiton 02-19-2023 Follow-up visit [id number] Nettie Michael 1975 F Date Provider Department Center 02/19/2023 3848-GERALD MANCINI [facility] Family History Problem Relation Age of Onset No Known Problems Mother No Known Problems Father Family Status - Relation Status Age at Mother Father Level of Service:65124 [place] OFFICE/OUTPATIENT ESTABLISHED MOD MDM 30-39 MIN [facility] CBC AUTO DIFFon 09-23-2022 BASO # 0.1 103/ul Normal 0.0-0.1 [facility] Comment on above: Performed By: #### U AMIC #### [facility] [address] [address] [address] Kristen Gambino Basophils/100 WBC (Bld) 0.9 % Normal 0.2-2.0 [facility] Comment on above: Performed By: #### U AMIC #### [facility] [address] [address] [address] Kristen Gambino EO # 0.1 103/ul Normal 0.0-0.7 [facility] Comment on above: Performed By: #### U AMIC #### [facility] [address] [place] [address] Dr. Kristen Gambino Eosinophils/100 WBC (Bld) 1.1 % Normal 0.9-7.0 [facility] Comment on above: Performed By: #### U AMIC #### [facility] [address] [place] [address] Dr. Kristen Gambino Erythrocyte distribution width (RBC) [Ratio] 13.2 % Normal 11.0-15.0 [facility] Comment on above: Performed By: #### U AMIC #### [facility] [address] [place] [address] Dr. Kristen Gambino Hematocrit (Bld) [Volume fraction] 41.2 % Normal 36.0-48.0 [facility] Comment on above: Performed By: #### U AMIC #### [facility] [address] [place] [address] Dr. Kristen Gambino Hemoglobin (Bld) [Mass/Vol] 13.8 g/dL Normal 12.0-16.0 [facility] Comment on above: Performed By: #### U AMIC #### [facility] [address] [place] [address] Dr. Kristen Gambino IG # 0.03 10e3/ul Normal 0.00-0.03 [facility] Comment on above: Performed By: #### U AMIC #### [facility] [address] [place] [address] Dr. Kristen Gambino IG % 0.2 % Normal 0.0-0.5 [facility] Comment on above: Performed By: #### U AMIC #### [facility] [address] [place] [address] Dr. Kristen Gambino LYMPH # 3.5 103/ul Normal 1.2-3.8 [facility] Comment on above: Performed By: #### U AMIC #### [facility] [address] [place] [address] Dr. Kristen Gambino Lymphocytes/100 WBC (Bld) 28.4 % Normal 20.5-60.0 [facility] Comment on above: Performed By: #### U AMIC #### [facility] [address] [place] [address] Dr. Kristen Gambino MANUAL DIFF REQ NO Normal [facility] Comment on above: Performed By: #### U AMIC #### [facility] [address] [place] [address] Dr. Kristen Gambino MCH (RBC) [Entitic mass] 27.8 pg Normal 26.7-34.0 [facility] Comment on above: Performed By: #### U AMIC #### [facility] [address] [place] [address] Dr. Kristen Gambino MCHC (RBC) [Mass/Vol] 33.5 g/dL Normal 29.9-35.2 [facility] Comment on above: Performed By: #### U AMIC #### [facility] [address] [place] [address] Dr. Kristen Gambino MCV (RBC) [Entitic vol] 82.9 fL Normal 81.0-99.0 [facility] Comment on above: Performed By: #### U AMIC #### [facility] [address] [place] [address] Dr. Kristen Gambino MONO # 0.9 103/ul Critically high 0.3-0.8 [facility] Comment on above: Performed By: #### U AMIC #### [facility] [address] [place] [address] Dr. Kristen Gambino Monocytes/100 WBC (Bld) 7.0 % Normal 1.7-12.0 [facility] Comment on above: Performed By: #### U AMIC #### [facility] [address] [place] [address] Dr. Kristen Gambino NEUT # 7.8 103/ul Critically high 1.4-6.5 [facility] Comment on above: Performed By: #### U AMIC #### [facility] [address] [place] [address] Dr. Kristen Gambino Neutrophils/100 WBC (Bld) 62.4 % Normal 43.0-75.0 [facility] Comment on above: Performed By: #### U AMIC #### [facility] [address] [address] [address] Kristen Gambino Platelet mean volume (Bld) [Entitic vol] 9.6 fL Normal 9.5-13.5 [facility] Comment on above: Performed By: #### U AMIC #### [facility] [address] [address] [address] Kristen Gambino PLT 409 103/ul Normal 150-450 [facility] Comment on above: Performed By: #### U AMIC #### [facility] [address] [address] [address] Kristen Gambino RBC 4.97 106/ul Normal 4.20-5.40 [facility] Comment on above: Performed By: #### U AMIC #### [facility] [address] [place] [address] Dr. Kristen Gambino WBC 12.5 103/ul Critically high 4.0-11.0 [facility] Comment on above: Performed By: #### U AMIC #### [facility] [address] [place] [address] HEAD WO CONon [...] TERRI LANDAVERDE Date: 2022-09-22 23:00 Normal [facility] PROF 14(COMP METB)on 023 Albumin [Mass/Vol] 3.5 g/dL Normal 3.4-5.0 [facility] Comment on above: Performed By: #### C VDTBH #### [facility] [address] [place] [address] Dr. Kristen Gambino Albumin/Globulin [Mass ratio] 0.8 {ratio} Normal [facility] Comment on above: Performed By: #### C VDTBH #### [facility] [address] [place] [address] Dr. Kristen Gambino ALP [Catalytic activity/Vol] 67 U/L Normal 46-116 [facility] Comment on above: Performed By: #### C VDTBH #### [facility] [address] [place] [address] Dr. Kristen Gambino ALT [Catalytic activity/Vol] 29 U/L Normal 14-59 [facility] Comment on above: Performed By: #### C VDTBH #### [facility] [address] [place] [address] Dr. Kristen Gambino Anion gap [Moles/Vol] 12.0 mmol/L Normal [facility] Comment on above: Performed By: #### C VDTBH #### [facility] [address] [place] [address] Dr. Kristen Gambino AST [Catalytic activity/Vol] 17 U/L Normal 15-37 [facility] Comment on above: Performed By: #### C VDTBH #### [facility] [address] [place] [address] Dr. Kristen Gambino Bilirubin [Mass/Vol] 0.4 mg/dL Normal 0.2-1.0 [facility] Comment on above: Performed By: #### C VDTBH #### [facility] [address] [place] [address] Dr. Kristen Gambino Calcium [Mass/Vol] 9.5 mg/dL Normal 8.5-10.1 [facility] Comment on above: Performed By: #### C VDTBH #### [facility] [address] [place] [address] Dr. Kristen Gambino Chloride [Moles/Vol] 101 mmol/L Normal 98-107 [facility] Comment on above: Performed By: #### C VDTBH #### [facility] [address] [place] [address] Dr. Kristen Gambino CO2 [Moles/Vol] 28.9 mmol/L Normal 21.0-32.0 [facility] Comment on above: Performed By: #### C VDTBH #### [facility] [address] [place] [address] Dr. Kristen Gambino Creatinine [Mass/Vol] 0.60 mg/dL Normal 0.55-1.02 [facility] Comment on above: Performed By: #### C VDTBH #### [facility] [address] [place] [address] Dr. Kristen Gambino EGFR-AF MOROCCAN >60 Normal >=60 [facility] Comment on above: Performed By: #### C VDTBH #### [facility] [address] [place] [address] Dr. Kristen Gambino EGFR-NON AF MOROCCAN >60 Normal >=60 [facility] Comment on above: Performed By: #### C VDTBH #### [facility] [address] [place] [address] Dr. Kristen Gambino Globulin (S) [Mass/Vol] 4.5 g/dL Normal [facility] Comment on above: Performed By: #### C VDTBH #### [facility] [address] [place] [address] Dr. Kristen Gambino Glucose [Mass/Vol] 108 mg/dL Critically high 74-106 [facility] Comment on above: Performed By: #### C VDTBH #### [facility] [address] [place] [address] Dr. Kristen Gambino Potassium [Moles/Vol] 3.9 mmol/L Normal 3.5-5.1 [facility] Comment on above: Performed By: #### C VDTBH #### [facility] [address] [place] [address] Dr. Kristen Gambino Protein [Mass/Vol] 8.0 g/dL Normal 6.4-8.2 [facility] Comment on above: Performed By: #### C VDTBH #### [facility] [address] [place] [address] Dr. Kristen Gambino Sodium [Moles/Vol] 138 mmol/L Normal 136-145 [facility] Comment on above: Performed By: #### C VDTBH #### [facility] [address] [place] [address] Dr. Kristen Gambino Urea nitrogen [Mass/Vol] 10.0 mg/dL Normal 7.0-18.0 [facility] Comment on above: Performed By: #### C VDTBH #### [facility] [address] [place] [address] Dr. Kristen Gambino Urea nitrogen/Creatinine [Mass ratio] 16.7 mg/mg Normal [facility] Comment on above: Performed By: #### C VDTBH #### [facility] [address] [place] [address] Dr. Kristen Gambino PAP ACOG PANEL 2: 30 to 65on 08-15-[address] [facility] Comment on above: Result Comment: Perf ormed at: WB Performed By: #### [id number] #### [facility] [address] [place] [address] Dr. Kristen Gambino Age Gdln ACOG Testing 30-65 [facility] Comment on above: Performed By: #### [id number] #### [facility] [address] [place] [address] Dr. Kristen Gambino DIAGNOSIS: Comment Normal [facility] Comment on above: Result Comment: NEGA TIVE FOR INTRAEPITHELIAL LESION OR MALIGNANCY. Performed at: WB Performed By: #### [id number] #### [facility] [address] [place] [address] Dr. Kristen Gambino HPV Aptima Negative Normal Negative [facility] Comment on above: Result Comment: This nucleic acid amplification test detects fourteen high-risk HPV types (16,18,31,33,35,39,45,51,52,56,58,59,66,68) without differentiation. Performed at: =G Performed By: #### [id number] #### [facility] [address] [place] [address] Dr. Kristen Gambino HPV Genotype Reflex Comment Normal [facility] Comment on above: Result Comment: Crit eria not met, HPV Genotype not performed. Performed at: WB Performed By: #### [id number] #### [facility] [address] [place] [address] Dr. Kristen Gambino Methodology: Comment Normal [facility] Comment on above: Result Comment: This liquid based ThinPrep(R) pap test was screened with the use of an image guided system. Performed at: WB Performed By: #### [id number] #### [facility] [address] [place] [address] Dr. Kristen Gambino Note: Comment Normal [facility] Comment on above: Result Comment: The Pap smear is a screening test designed to aid in the detection of premalignant and malignant conditions of the uterine cervix. It is not a diagnostic procedure and should not be used as the sole means of detecting cervical cancer. Both false-positive and false-negative reports do occur. . Performed at: WB Performed By: #### [id number] #### [facility] [address] [place] [address] Dr. Kristen Gambino Performed by: Comment Normal [facility] Comment on above: Result Comment: Nila Romo, Manufacturing Coordinator (ASCP) Performed at: WB Performed By: #### [id number] #### [facility] [address] [place] [address] Dr. Kristen Gambino Specimen adequacy: Comment Normal [facility] Comment on above: Result Comment: Sati sfactory for evaluation. Endocervical and/or squamous metaplastic cells (endocervical component) are present. Performed at: WB Performed By: #### [id number] #### [facility] [address] [place] [address] Dr. Kristen Gambino US PELVIS AND TRANSVAGon [...] by: TERRI DELANEY Date: 2022-08-14 07:[address] [facility] CULTURE URINEon 08-10-2022 CULTURE URINE Isolate 1 Pseudomonas aeruginosa <10,000 cfu/mL of ORGANISM 1 Pseudomonas aeruginosa ANTIBIOTIC M.I.C RX STATUS Piperacillin/Tazobactam <=4 S F Ceftazidime 2 S F Imipenem 2 S F Amikacin <=2 S F Gentamicin <=1 S F Tobramycin <=1 S F Ciprofloxacin <=0.25 S F Levofloxacin 0.[address] [facility] Comment on above: Performed By: #### U AMIC #### [facility] [address] [place] [address] Dr. Kristen Gambino MG MAMM SCREEN 3D ARCHIE CADon 03-06-2022 MG MAMM SCREEN 3D ARCHIE CAD Patient: GLADIS MICHAEL Exam Date: 03/06/2022 : 1975 Gender:F Ordering : KAILYN VelezMary [facility] Admission #: [id number] Family : Order #: [id number] CLICK HERE TO VIEW EXAM RADIOLOGY REPORT [...] brain cancer at age 41. LOCATION: [facility] BREAST COMPOSITION: Scattered areas fibroglandular density. [...] MD on 03/06/2022 at 14:25 Normal [facility] Covid-19 PCR (CVDTBH)on 01-07 SARS-CoV-2 (COVID-19) RNA GARTH+probe Ql (Unsp spec) Not detected Normal NOT DETECTED [facility] Comment on above: Result Comment: This test is not yet approved or cleared by the [place] FDA. When there are no FDA-approved or cleared tests available, and other criteria are met, FDA can make tests available under an emergency access mechanism called an Emergency Use Authorization (EUA). The EUA for this test is supported by the [place] of Health and Human Service's (HHS's) declaration [...] consistent with SARS-CoV-2. Performed By: #### C VDTBH #### [facility] [address] [place] [address] Dr. Kristen Gambino CULTURE URINEon 01-19-2022 CULTURE [...] S F Tetracycline >=16 R F Normal [facility] Comment on above: Performed By: #### U AMIC #### [facility] [address] [place] [address] Dr. Kristen Gambino CBC AUTO DIFFon 01-17-2022 BASO # 0.2 103/ul Critically high 0.0-0.1 [facility] Comment on above: Performed By: #### C BC #### [facility] [address] [place], [place] [id number] Dr. Kristen Gambino Basophils/100 WBC (Bld) 1.3 % Normal 0.2-2.0 [facility] Comment on above: Performed By: #### C BC #### [facility] [address] [place] [address] Dr. Kristen Gambino EO # 0.3 103/ul Normal 0.0-0.7 [facility] Comment on above: Performed By: #### C BC #### [facility] [address] [address] [address] Kristen Gambino Eosinophils/100 WBC (Bld) 1.9 % Normal 0.9-7.0 [facility] Comment on above: Performed By: #### C BC #### [facility] [address] [place] [address] Dr. Kristen Gambino Erythrocyte distribution width (RBC) [Ratio] 13.4 % Normal 11.0-15.0 [facility] Comment on above: Performed By: #### C BC #### [facility] [address] [place] [address] Dr. Kristen Gambino Hematocrit (Bld) [Volume fraction] 41.3 % Normal 36.0-48.0 [facility] Comment on above: Performed By: #### C BC #### [facility] [address] [place] [address] Dr. Kristen Gambino Hemoglobin (Bld) [Mass/Vol] 13.6 g/dL Normal 12.0-16.0 [facility] Comment on above: Performed By: #### C BC #### [facility] [address] [place] [address] Dr. Kristen Gambino IG # 0.07 10e3/ul Critically high 0.00-0.03 [facility] Comment on above: Performed By: #### C BC #### [facility] [address] [place] [address] Dr. Kristen Gambino IG % 0.4 % Normal 0.0-0.5 [facility] Comment on above: Performed By: #### C BC #### [facility] [address] [place] [address] Dr. Kristen Gambino LYMPH # 3.6 103/ul Normal 1.2-3.8 [facility] Comment on above: Performed By: #### C BC #### [facility] [address] [place] [address] Dr. Kristen Gambino Lymphocytes/100 WBC (Bld) 22.4 % Normal 20.5-60.0 [facility] Comment on above: Performed By: #### C BC #### [facility] [address] [place] [address] Dr. Kristen Gambino MANUAL DIFF REQ NO Normal [facility] Comment on above: Performed By: #### C BC #### [facility] [address] [place] [address] Dr. Kristen Gambino MCH (RBC) [Entitic mass] 27.8 pg Normal 26.7-34.0 [facility] Comment on above: Performed By: #### C BC #### [facility] [address] [place] [address] Dr. Kristen Gambino MCHC (RBC) [Mass/Vol] 32.9 g/dL Normal 29.9-35.2 [facility] Comment on above: Performed By: #### C BC #### [facility] [address] [place] [address] Dr. Kristen Gambino MCV (RBC) [Entitic vol] 84.5 fL Normal 81.0-99.0 [facility] Comment on above: Performed By: #### C BC #### [facility] [address] [place] [address] Dr. Kristen Gambino MONO # 1.1 103/ul Critically high 0.3-0.8 [facility] Comment on above: Performed By: #### C BC #### [facility] [address] [place] [address] Dr. Kristen Gambino Monocytes/100 WBC (Bld) 7.0 % Normal 1.7-12.0 [facility] Comment on above: Performed By: #### C BC #### [facility] [address] [place] [address] Dr. Kristen Gambino NEUT # 10.7 103/ul Critically high 1.4-6.5 [facility] Comment on above: Performed By: #### C BC #### [facility] [address] [place] [address] Dr. Kristen Gambino Neutrophils/100 WBC (Bld) 67.0 % Normal 43.0-75.0 [facility] Comment on above: Performed By: #### C BC #### [facility] [address] [place] [address] Dr. Kristen Gambino Platelet mean volume (Bld) [Entitic vol] 9.3 fL Critically low 9.5-13.5 [facility] Comment on above: Performed By: #### C BC #### [facility] [address] [place] [address] Dr. Kristen Gambino PLT 502 103/ul Critically high 150-450 [facility] Comment on above: Performed By: #### C BC #### [facility] [address] [place] [address] Dr. Kristen Gambino RBC 4.89 106/ul Normal 4.20-5.40 [facility] Comment on above: Performed By: #### C BC #### [facility] [address] [place] [address] Dr. Kristen Gambino WBC 16.0 103/ul Critically high 4.0-11.0 [facility] Comment on above: Performed By: #### C BC #### [facility] [address] [place] [address] Dr. Kristen Gambino PROF 14(COMP METB)on 022 Albumin [Mass/Vol] 4.0 g/dL Normal 3.4-5.0 [facility] Comment on above: Performed By: #### C MP #### [facility] [address] [place] [address] Dr. Kristen Gambino Albumin/Globulin [Mass ratio] 0.9 {ratio} Normal [facility] Comment on above: Performed By: #### C MP #### [facility] [address] [place] [address] Dr. Kristen Gambino ALP [Catalytic activity/Vol] 72 U/L Normal 46-116 [facility] Comment on above: Performed By: #### C MP #### [facility] [address] [place] [address] Dr. Kristen Gambino ALT [Catalytic activity/Vol] 45 U/L Normal 14-59 [facility] Comment on above: Performed By: #### C MP #### [facility] [address] [place] [address] Dr. Kristen Gambino Anion gap [Moles/Vol] 12.4 mmol/L Normal [facility] Comment on above: Performed By: #### C MP #### [facility] [address] [place] [address] Dr. Kristen Gambino AST [Catalytic activity/Vol] 31 U/L Normal 15-37 [facility] Comment on above: Performed By: #### C MP #### [facility] [address] [place] [address] Dr. Kristen Gambino Bilirubin [Mass/Vol] 0.6 mg/dL Normal 0.2-1.0 [facility] Comment on above: Performed By: #### C MP #### [facility] [address] [place] [address] Dr. Kristen Gambino Calcium [Mass/Vol] 9.2 mg/dL Normal 8.5-10.1 [facility] Comment on above: Performed By: #### C MP #### [facility] [address] [place] [address] Dr. Kristen Gambino Chloride [Moles/Vol] 101 mmol/L Normal 98-107 [facility] Comment on above: Performed By: #### C MP #### [facility] [address] [place] [address] Dr. Kristen Gambino CO2 [Moles/Vol] 26.3 mmol/L Normal 21.0-32.0 [facility] Comment on above: Performed By: #### C MP #### [facility] [address] [place] [address] Dr. Kristen Gambino Creatinine [Mass/Vol] 0.74 mg/dL Normal 0.55-1.02 [facility] Comment on above: Performed By: #### C MP #### [facility] [address] [place] [address] Dr. Kristen Gambino EGFR-AF MOROCCAN >60 Normal >=60 [facility] Comment on above: Performed By: #### C MP #### [facility] [address] [place] [address] Dr. Kristen Gambino EGFR-NON AF MOROCCAN >60 Normal >=60 [facility] Comment on above: Performed By: #### C MP #### [facility] [address] [address] [address] Kristen Gambino Globulin (S) [Mass/Vol] 4.4 g/dL Normal [facility] Comment on above: Performed By: #### C MP #### [facility] [address] [address] [address] Kristen Gambino Glucose [Mass/Vol] 106 mg/dL Normal 74-106 [facility] Comment on above: Performed By: #### C MP #### [facility] [address] [address] [address] Kristen Gambino Potassium [Moles/Vol] 3.7 mmol/L Normal 3.5-5.1 [facility] Comment on above: Performed By: #### C MP #### [facility] [address] [place] [address] Dr. Kristen Gambino Protein [Mass/Vol] 8.4 g/dL Critically high 6.4-8.2 [facility] Comment on above: Performed By: #### C MP #### [facility] [address] [place] [address] Dr. Kristen Gambino Sodium [Moles/Vol] 136 mmol/L Normal 136-145 [facility] Comment on above: Performed By: #### C MP #### [facility] [address] [place] [address] Dr. Kristen Gambino Urea nitrogen [Mass/Vol] 14.0 mg/dL Normal 7.0-18.0 [facility] Comment on above: Performed By: #### C MP #### [facility] [address] [place] [address] Dr. Kristen Gambino Urea nitrogen/Creatinine [Mass ratio] 18.9 mg/mg Normal [facility] Comment on above: Performed By: #### C MP #### [facility] [address] [place] [address] Dr. Kristen Gambino UA RANDOM W/MICROSCOPICon BACTERIA TRACE Abnormal NONE SEEN [facility] Comment on above: Performed By: #### U AMIC #### [facility] [address] [address] [address] Kristen Gambino Bilirubin Ql (U) Negative Normal NEGATIVE [facility] Comment on above: Performed By: #### U AMIC #### [facility] [address] [address] [address] Kristen Gambino CA OX CRYSTALS MODERATE Normal [facility] Comment on above: Performed By: #### U AMIC #### [facility] [address] [address] [address] Kristen Gambino CAST NONE SEEN Normal NONE SEEN [facility] Comment on above: Performed By: #### U AMIC #### [facility] [address] [address] [address] Kristen Gambino Clarity (U) CLEAR Normal CLEAR [facility] Comment on above: Performed By: #### U AMIC #### [facility] [address] [address] [address] Kristen Gambino Color (U) YELLOW Normal YELLOW [facility] Comment on above: Performed By: #### U AMIC #### [facility] [address] [address] [address] Kristen Gambino Crystals LM Nom (Urine sed) SEEN Abnormal NONE SEEN [facility] Comment on above: Performed By: #### U AMIC #### [facility] [address] [address] [address] Kristen Gambion Epithelial cells LM Ql (Urine sed) MODERATE Abnormal NONE SEEN /RARE [facility] Comment on above: Performed By: #### U AMIC #### [facility] [address] [address] [address] Kristen Gambino Glucose Ql (U) Negative Normal NEGATIVE [facility] Comment on above: Performed By: #### U AMIC #### [facility] [address] [address] [address] Kristen Gambino Hemoglobin Ql (U) Negative Normal NEGATIVE [facility] Comment on above: Performed By: #### U AMIC #### [facility] [address] [address] [address] Kristen Gambino Ketones Ql (U) Negative Normal NEGATIVE [facility] Comment on above: Performed By: #### U AMIC #### [facility] [address] [address] [address] Kristen Gambino LEUKOCYTES SMALL Abnormal NEGATIVE [facility] Comment on above: Performed By: #### U AMIC #### [facility] [address] [place] [address] Dr. Kristen Gambino MUCOUS SMALL Abnormal NONE SEEN [facility] Comment on above: Performed By: #### U AMIC #### [facility] [address] [place] [address] Dr. Kristen Gambino Nitrite Ql (U) Negative Normal NEGATIVE [facility] Comment on above: Performed By: #### U AMIC #### [facility] [address] [place] [address] Dr. Kristen Gambino pH (U) 5.0 [pH] Normal 5-9 [facility] Comment on above: Performed By: #### U AMIC #### [facility] [address] [place] [address] Dr. Kristen Gambino RBC NONE SEEN Abnormal 0-2 [facility] Comment on above: Performed By: #### U AMIC #### [facility] [address] [place] [address] Dr. Kristen Gambino SPEC GRAVITY >=1.030 Abnormal 1.005-<=1.[address] [facility] Comment on above: Performed By: #### U AMIC #### [facility] [address] [place] [address] Dr. Kristen Gambino UA PROTEIN Negative Normal NEGATIVE/ TRACE [facility] Comment on above: Performed By: #### U AMIC #### [facility] [address] [place] [address] Dr. Kristen Gambino Urobilinogen Qn (U) 0.2 {Sonya'U}/dL Normal 0.2 - 1. 0 [facility] Comment on above: Performed By: #### U AMIC #### [facility] [address] [place] [address] Dr. Kristen Gambino WBC 5-10 Abnormal NONE SEEN [facility] Comment on above: Performed By: #### U [facility] #### [facility] [address] [address] [address] Kristen Gambino XR TSPINE 2 VIEWSon [...] by: TERRI DELANEY Date: 2022-01-11 07:[address] [facility] Operative Reporton Operative Report [id number]#1.00CD:[address] [facility] Operative Report [id number]#1.00CD:[address] [facility] Physician Referralon 022 Physician Referral [id number]#1.00CD:[address] [facility] Coding Summary.on 10-30-2021 Coding Summary. CD:[id number] Gh0bWw+ PGhlYWQ+GW0ISFWaL53gbZNolI4 RE4dSSU0JOHMSISCAGW3YUV3ckU D6SGwvI7BxokNk DsnxbJZyZB84QOo9PBU6cSpfMIc sxE9wlKLcV3h0TtRkJM96dJ96WT pnBGGmBrI4LnAtrdsxuRKj L0ohJrZanPSbEws+PHRhYmxlIHd jLCAyRFszMNPcHeNbmOamRH0xQk 9yZGVyLWNvbGxhcHNlOiBj q9ndNIQmUIpfNE3btMsgM6QcnML 7FBDwl2f8Nx84rNL+UNWeJTI2vH cwYSkrr261AcMfe6vjNIE9 lDMbBTjrIHE7C15gv3I0LDXgBPM hXWR4sDS4hJ6srZnhydcjF1FrzE PrGzD5IAE3rGAhtT9itXfg ripvlM7wPmr+R93UCM0SBUUQKZ3 XMxj8B6VaPshyyBE+QG39FIXmIT 45nSBgeASyw6egdJr4JmIf NCWjORA9cIlmKNwke3GvPGCuX29 ooSHhq8H0RPAxuEuutPYdDhVemE T7dJ0nJGlvkhzxl8pojjcj Jyiqm6fcxj77kY54R53cJDpuUYT sPFM4ZZFwAPIeuXtvns4rhY0eGj 8+ARsil2bvw5jcpBm9BxAo NWXopzYzwFhaRVK2c3VhBm60E5O giAiti7OqFzn0dm51cUYod4S4pF T4JMpvYSNxgS5xPBvjAbX4 WEWcRnYezT84cSLtDEybOm0wyGq xdOepNK1yVYYsktrrSQRalP6mOK NstFWlrQmqOZ9iJPXqymps n608GlYbBBT7JGFziTIsC2FouJ2 eNnEoDUPgJIDyR6UwdNHdKKfmI8 47HEvqVjY1LJItqzMcI7Qi XJGheHjnYhE7b0H9Vx7Lu3Iaikm gWYT0JThpLCP7YeN0BrDdTqY7M0 PoBvw0TGJfqSsbSW5pC7Iu IPUdoncqlymyjYD0DBFuDBPafZ6 1dDMmGLkeHe1ym6Q5o534YUImDO PubO61Hm5tuZasDXCtoVXG jN4gukczs4qrtuprNhItASOdBEf 4LAn9NIBxdQehPiWeMUX4LkR3XS J3xAKcnN5buMdgvkqexO1y Oyc+E81fiW8rMUT0LJU6hlwcHAU detAiOM75EI15S2VnPkpbuHHocY U+RTKtiqLvuSlxBZ2lVrOz y1gfh3ItXWxlM7IxXVGzDJvyKub 1BMGhQPG7zZU2tL7tAIMuSBeod6 F8dRB5S2OrevNwle1va1mf TJDfKWdmR22ycXAsm1O1DJXvtKX 5CFTafJlqUyYoiL15Fsb+PGNvbG kpb9KwBjszs6sdr1pkkWt1 NvEcNULfleHyxQicDRZ6c0NlSm1 2O31cWPzyVKClAEBlUDErYBOmoP xzqk1ybX9oQh7+PGNvbCB3 kLV1jE4sOFKrGkH5KWlrA944YuR tdNSgYfsjh7xom7qxuDp0UuVfWN BszjYazQuaPQK4p4EkWf68 C58yNAeoBSSiWCNdLMVqBUCnyMi wtz7bnB1vWq1+AW2jw2uowy38rS 48dHI+HKUzYUN3mRtvTHpo XPWzgE7kAGfyRsW4EVZiOkDhyT2 5cDJcSBddIm5tiWkbtGhzIR5cMX Grormte812QrMhx7upTGIj tSAaMGbhHMY7Z82ih7F9FAOcUET gETX9gYZ4wV2mbJnpdoyozWSxlS sabrFveYtxDSdwYCimK757 IHRvcDsnPlBhdGllbnQgTmFtZTo 9R1IyKju3ZEAioWneKD8lmOOlCN soZc3tkUuhzJfgYS5aRNCk dxgsh681YoCxe5lxQTFslKGhQJi bOPB3V62at0E7HSYbSMBgXCC9qK O1oE3lsOrzerkmiCGijDdd ivLluPqrXZqtSFdwO217SUVtxAs uCvKzivQzDROisVX3CQ89XR06oD Klz2Q8mEO2S3BrIUUsaeue sxvejUO1WLPrDJYjeS06Eg7vqSy cEj2pFMIdIHF1VSMoqJKlJ9EwaC 3sVwAfQAXkGBAyC3XdfEAb JXsoF567KRxqKtN2GUExopNmP1R mQGJnhSkzYoY3m0X2Fn5RJ9P9LM 00XU47gZWrk7I3iHR9J3Cu GSEzoczdomahaZM9LRHiDBXtdR6 4Ev5xkMtuXq1iUZOhHKZ1JQAtlI UgS6TrqJ2bAqWcFOKzZNDd X1HjyEZaEFfeC726BSnyKiQ4WBQ nhdJmE9AdOGWnaBobYlV4x1L2Hj 0GVFv2FS08LF04wYNip5H3 qVD8C7MmUNThuxsoulbjpAZ3SRB dFCLzwT11Gg8krQtnOw2gEDUpUB P7HZJkoREzL4GqlX3mDbLp RKYvVZAmQ7CblPXrZMumO687CEh qKbI1IEVacuUrM8KbQKZrrOmgFx Z0k7K5Tw8OVURdZJ55HIO3 eVL3NH91DQ69A7WkWeoitZMvbBQ +PHRhYmxlIHdpZHRoPScxMDAlJy GtpTreUC1yUn1dQXYyTIYw sFtgsSJbQqWwp7cyOXKnZOwjXA5 dmMvvP7NebKY8VLLrb4c2Fk41F0 6eM6VgqZV+JFTyfGI6bND9 gJ4uGiSwClS3MKbzG606UuBtaNI dHtdra2oue4otkTv8ZyE6KZKejq PdiWcaCMR6q6NiLe40H12k IHdpZHRoPSIxNSUiIHZhbGlnbj0 sqK6kHo6+DVVutUV7kVQ4pX1hBo AtMoF5UAmeL815QxNseCBy Esxbd5udt9karPv6UmQcOIByvtS roYjvQCW6x0PhDr60N6VjkTfvi6 SsJzu3pg48aWKsy5F3eMG5 K3YoIDPtvqmsrGEkoXdhJH8oGUT ypddoUQZrlP0xXQMjJ3c7BwBxIb P7CWolJ3AmaeG7SULwqTRz CRfuTBC7K55ug7R1XSQuWNSqPUS 9tEM7rW9cdSktcspzuXJfpCjewc YmuLmqFRhaFUfiH164HINd xHpcIKAdwE9uAFHjvLKaeDuqNK0 wNTBpbjsnPlZPTExNQVIsIEVMSV gIQtFRBIGBSO07NG44qCGi i9S3rVY9Y4CpFZZrxxugordqeKP 8FFHnUDLohP76nPZiROarKg9by6 G0h059CVAoTXWqlO04Db8f sDbtETTrvGVXvE1rqpjjo7fxptt kRzPlUSElVLa4SPm5JGTgbImbKc LcDIB4SbO4AIE1kAQbjC6a xLkirivlyD5pBwu+MDEvMDUvMTk 3NjwvdGQ+LJEpYRM8zIrgYBtnLN GcpA4yIZKcA9b1TuEcLeS1 QAocB1DzGVBaorzlGn54oZ8cMpE cIzP7UIybO7CyjrI1VEJfaVQiLT epPNM8X85pc5X2ZOTbFRRd FYI1bXE6nU1rdNoguiftuGHgvGu ueqChjOqqBUslMHhiO747IEKjwY hcCiI2FPckGXTvOY23EX31 sITiw0F3fQQ9G4TiJRRltswlabm auQN3EMYxVXLhkQ10vPJoDLekJx 3ma4R7p932ZFKzTIXvmV65 Cb8xoVqtNXZwiADRyX9gbtzka6i abckqOsYsPLKtKLy3AIu6QXWdgG vqTwEnOLM8RmP6NWY4wLTt iC0jjKgzlkuguM3yKph+RmVtYWx zWY22DB79bDMui3B5mQW7U0WgXU MckpzcwzanxRQ0SRMuFDBp aB21cBGhKYaaHa9xh9W8a397BZS lWBBevH00Mp5otTsvDISxgBGYpH 0knjerr7myjrtoHhPeLZLz CBs4TCr9UROmsMfdRsOmKUP8DoD 6EAP1lMRpyF9saDauwsmtuA8yMm c+IQ8xjtkwysZ4NH01KR23 J1AfEavszOHceGQ+PHRhYmxlIHd nVTMtDBrgOMUtSuEsnQswZY1kNg 9yZGVyLWNvbGxhcHNlOiBj l8eyEQZfYNriCM4lkCvbI8HfvMG 1DTEzc9g1Qq77C61gL0DfwDV+PG QmbGC1rBY5rI4pDrGiWzY2 DPzgK568SwPfmVGuXijeq9spj5w gpWk3GkMrCBZkgwXjeRxwRIA4o0 NzZn47X74hJTkeAINhJOBk UKSxIAXflPrknx1hwU8iWz6+PGN juTZ1vZF2zR2iEgXuAbL8PDocB0 05YuInvYFfDsxmO15pO7Mp dXA+OPCnVgp4IUTycYtrWS0wuTF uSWohNc8hQGG8DqPoKiNzQFuaX4 AnLGRorqmqmrzeaGE9GGPf GZAljN17Su3wnTyyTm7hZOFfPUA 2LHGfpSGuI7UryI9tZvOoUTTpHM BnQ3ZroNHcIAkiU761TEhd HbQ3WYUrobNqI1WgGURtfObkSeR 9t0O5Rl6FsNxdjGVrJB8mAsHsEW l7E4ZwVww5OUAtnBqzUW3l oUYmYGtfUz3vgXczkBgbWV6tUSF fffxqd285MwWxk5qjAKXufNBuQY scIKW8L70sn4U1BXFjPZXb TAA5lGP9aL3qaIhuslleiDFpkLh aoxWtqHqfVDmfSGeqJ245MJWxfG xuNyZYLwt6I1XgNhr1NXBy wItzUG0njMAoBBmfFl4heEzyeYc hCW9uVIIfjhqfq586XyWov8cpZR SzqBQqTUtaAET0C40ee9S3 WWDgOFKqMOJ8rXS3kR2hmSzvlxf gbGVmdDsgdmVydGljYWwtYWxpZ2 76WHBrwVjqZn7WJia9L5Tk Doo9YTWorKrfZU3hnIUgQPmyUp5 fbDcibGrsGM5uPAGnlrfrg103Dp Kwn4bfPVZrnJPmTXeuSBG6 N92bx4H8CJXeHFOuDAD7dHH4mF6 hbGlnbjogbGVmdDsgdmVydGljYW brZHolO808DITzkOayPySg eWVyOjwvdGQ+TY98if67C2OzIcn uYbn1WIMpVAR8pKU5gU2lNSUiBN qeq4S9iAP1I5UxgdOqxz1g b2xs (more content not included)... Normal [facility] CBC AUTO DIFFon 10-26-2021 BASO # 0.1 103/ul Normal 0.0-0.1 [facility] Comment on above: Performed By: #### C BC #### [facility] [address] [place] [address] Dr. Kristen Gambino Basophils/100 WBC (Bld) 1.0 % Normal 0.2-2.0 [facility] Comment on above: Performed By: #### C BC #### [facility] [address] [address] [address] Kristen Gambino EO # 0.1 103/ul Normal 0.0-0.7 [facility] Comment on above: Performed By: #### C BC #### [facility] [address] [place] [address] Dr. Kristen Gambino Eosinophils/100 WBC (Bld) 1.0 % Normal 0.9-7.0 [facility] Comment on above: Performed By: #### C BC #### [facility] [address] [place] [address] Dr. Kristen Gambino Erythrocyte distribution width (RBC) [Ratio] 13.2 % Normal 11.0-15.0 [facility] Comment on above: Performed By: #### C BC #### [facility] [address] [place] [address] Dr. Kristen Gambino Hematocrit (Bld) [Volume fraction] 42.5 % Normal 36.0-48.0 [facility] Comment on above: Performed By: #### C BC #### [facility] [address] [place] [address] Dr. Kristen Gambino Hemoglobin (Bld) [Mass/Vol] 13.6 g/dL Normal 12.0-16.0 [facility] Comment on above: Performed By: #### C BC #### [facility] [address] [place] [address] Dr. Kristen Gambino IG # 0.05 10e3/ul Critically high 0.00-0.03 [facility] Comment on above: Performed By: #### C BC #### [facility] [address] [place] [address] Dr. Kristen Gambino IG % 0.4 % Normal 0.0-0.5 [facility] Comment on above: Performed By: #### C BC #### [facility] [address] [place] [address] Dr. Kristen Gambino LYMPH # 2.5 103/ul Normal 1.2-3.8 [facility] Comment on above: Performed By: #### C BC #### [facility] [address] [place] [address] Dr. Kristen Gambino Lymphocytes/100 WBC (Bld) 20.2 % Critically low 20.5-60.0 [facility] Comment on above: Performed By: #### C BC #### [facility] [address] [place] [address] Dr. Kristen Gambino MANUAL DIFF REQ NO Normal [facility] Comment on above: Performed By: #### C BC #### [facility] [address] [place] [address] Dr. Kristen Gambino MCH (RBC) [Entitic mass] 27.2 pg Normal 26.7-34.0 [facility] Comment on above: Performed By: #### C BC #### [facility] [address] [place] [address] Dr. Kristen Gambino MCHC (RBC) [Mass/Vol] 32.0 g/dL Normal 29.9-35.2 [facility] Comment on above: Performed By: #### C BC #### [facility] [address] [place] [address] Dr. Kristen Gambino MCV (RBC) [Entitic vol] 85.0 fL Normal 81.0-99.0 [facility] Comment on above: Performed By: #### C BC #### [facility] [address] [place] [address] Dr. Kristen Gambino MONO # 0.7 103/ul Normal 0.3-0.8 [facility] Comment on above: Performed By: #### C BC #### [facility] [address] [place] [address] Dr. Kristen Gambino Monocytes/100 WBC (Bld) 5.7 % Normal 1.7-12.0 [facility] Comment on above: Performed By: #### C BC #### [facility] [address] [place] [address] Dr. Kristen Gambino NEUT # 9.0 103/ul Critically high 1.4-6.5 [facility] Comment on above: Performed By: #### C BC #### [facility] [address] [place] [address] Dr. Kristen Gambino Neutrophils/100 WBC (Bld) 71.7 % Normal 43.0-75.0 [facility] Comment on above: Performed By: #### C BC #### [facility] [address] [place] [address] Dr. Kristen Gambino Platelet mean volume (Bld) [Entitic vol] 9.2 fL Critically low 9.5-13.5 [facility] Comment on above: Performed By: #### C BC #### [facility] [address] [place] [address] Dr. Kristen Gambino PLT 413 103/ul Normal 150-450 [facility] Comment on above: Performed By: #### C BC #### [facility] [address] [place] [address] Dr. Kristen Gambino RBC 5.00 106/ul Normal 4.20-5.40 [facility] Comment on above: Performed By: #### C BC #### [facility] [address] [place] [address] Dr. Kristen Gambino WBC 12.5 103/ul Critically high 4.0-11.0 [facility] Comment on above: Performed By: #### C BC #### [facility] [address] [place] [address] Dr. Kristen Gambino PREG QUANT HCGon 10-26-2021 HCG QUANT 1 mIU/mL Normal [facility] Comment on above: Performed By: #### P REGQNT #### [facility] [address] [place] [address] Dr. Kristen Gambino HCG RANGE SEE BELOW Normal [facility] Comment on above: Result Comment: 5-50 0-1 WEEK 40-300 1-2 WEEKS 100-1,000 2-3 WEEKS 500-6,000 3-4 WEEKS 5,000-200,000 1-2 MONTHS 10,000-100,000 2-3 MONTHS 3,000-50,000 2ND TRIMESTER 1,000-50,000 3RD TRIMESTER Performed By: #### P REGQNT #### [facility] [address] [place] [address] Dr. Kristen Gambino Coding Summary.on 10-22-2021 Coding Summary. CD:[id number] Gh0bWw+ PGhlYWQ+RE8XOCYjE44esCKsvB6 AK6wDII5BIVATJTEEQS8HMW2kiU X4QNpaH6UcxtQx DenuwLDoWV48PMi5LYO2xGxlZRy hcE3ksQBdL7x0KhUeIO32yM97OF jpHIYqCsP1CyBgthywrRFb R8smYcDliHZgVde+PHRhYmxlIHd gPWAqGAqmBLFqBjOtkTjaVS3kCa 9yZGVyLWNvbGxhcHNlOiBj e9jyPLHmJBdjDL2txCiuA9ZavOD 7FCUxp3o2Yg45yQV+XJLqFHC7bW zbSWhuy479PoImt3wkQHM5 lVIxEUkvPKH1E00di3X9WDMeYPD cGSP4sBC2aY6loHeykaocV6ZseV MzTmK6RTE8qWJpwW8lfNqz gwhypG6hUpf+W50LXI7ZLEBHRE2 TXds4E6JsDyxnkKC+UX26OPOhMO 67zWJfoQTse5gdlQv6GnYp XSZeUPE9gRfyCDkxx7HdBZVmK55 drQXjt9T1INJooSdlrTHjBmKjhK V2gD5xREyoumbin9elstzr Pxqon2ldwa73sT91Q08jMEgmFEW fVEV2ANNoCGMnjCfwtp8cmO2lNw 8+BTidt9kua2vifTa7XgJi PKLrzkLeuBijZXL6x6TqZg01Q5V knBlej0LiIaf5kw49jFElf0V1lB A3UExgAQFcoU8oWOupYaI4 OKGeMcZlsN28jUQkVTxsTt7ctQr utYnlUK7fCNMixfleDKCmnG0dVO ZnhNQsyFpoHU5hBRPsatsk d147TqInOPL7VFDrsLBuB2JwgX6 mAmIyMSGwYKCbH7DraUPrEIvbR5 10JAlyFoJ9UNCafyMoV6Yt CQXivQcuPgE4o6T1Ox0Rw0Edrfx dWDI7CJgkVIJ9XaW8DeYlYzE7O2 FgVxs3UXYfpNqyJJ5zO9Hu KMVmwpmypdsjdEN3ERGpEDWfkJ1 0aMIrYSdzQf2hc6D1l171KBOcTM EopJ58Vo5xnHlmCVBpuGTX iS5slfhtz7muipsfOeQsUJAzTIy 0ECe6KVVsuWovUsZaPRE2JqL9PC Z2dUCcwZ4qqAtkwhaqnU0g Oyc+X44hdO0lLHR3CUX2mcjoHGE qvuTaTZ12OZ87K3QhJivbhNQdlS U+ZJZwjrAdyEwnZZ4uVdOq e3maj3DyZNjcK6DrTOCbUAhhNhn 7SRCaLNO7pER5bL9tSKEjQAhge7 S3fTU1X2AmldTiqz1zw5cr NGSuKIyqZ19ovBWld7B2IFXmhAE 2SMOfjVspWeOqzB38Wwg+PGNvbG tyv7FvQxxci4usq7onpEq9 WaByQYPqxsLknTmpJGF2b5QzCe8 0K51nPWufADOuROVwBOGpDSGuyV pmyc2nmP8eIo0+PGNvbCB3 nMX7mV3wEHMwKfM6ZQbvA639OuY jiGLdWqldo4kkr7ovtYa4ZeBwXK JzhqNmhNdoVWZ8t7HpBa18 G00uRHypKDAnFZOdFKLxWASruDq ewm4kuM3zZq2+WW0ip8uyeb12yZ 48dHI+UOCgDSG0nPjyVGid HJXhoK2pLUjiEwV4XQPwNjLdqK1 3aUUyGXreKv2akTxrzPlaCB0nDD Aommhku479SpHxt7ixZOZe sVTmOHpnKGV9V43zf9V5IKOoRGE fBIP3mBV5iX4lyScxsexkzPDmeX guzfCceAufQAzhOHcgY703 IHRvcDsnPlBhdGllbnQgTmFtZTo 8B7MuMtn8JFSctNnwGF1yeMMiLE uzQl8rrHnhbNksMI2jJYGy bapbb927YaQcl1rwQDZfaYUdWAp uAXY5S97wk3B2TMSgQTSsRAE2lC I7bG4hsChbnpqkcPVpnYvc xiSepAsvDJgnSSuoR369GMJrlSp hMwNhbdSxFDQqmYU2LA05UK40zW Wxc0S1tGB8N7RlKQPrdgzu xpbgkLM0QCUuRXQggJ26Vm0buAc tRw9xOCXwFXF1RJAfpRTmQ3DcaN 6uTkSjMDIqQZTuI0NemDJi NGhiT971XTysKoL1LXIofvKmF6I cRQZaxTwaXxK7v2P6Pc7HX0H2LX 77GB66cJNab7Q6bCN2U9Ti UEIsyhkrnsaavEP9PWUcOQZzxI8 3Hh2xhKuuPg2zFVKoABQ3DGJfjK TbG7OqhF7aCnTfNIKkEUHu Q6KrqIFxGQfxI688LLxwArV0QNN owuBsF4BuXQHsyKidMuH7y1Z8Hx 7EKPi3RG95ND81yOFcj7D7 lQK9H0YsJYXshfdapibfzDG8DTY sOBVsaO32Ec5lqXdrEk3jSQDwZX N4RWLnjTRcF6TxpT3cFjQu QOTdFCLlM6LviFNrVCurC211VJg sByA8QUJwbdTjD7UdMDZsuBwbDd S1y7G0Kw4DOGRmMB64TBX9 yPU3CH45QB10Q5RjZzpffLYwzPD +PHRhYmxlIHdpZHRoPScxMDAlJy MfcAdxIW3dDz5xFGSfRMHl bHbwrMHaFhHoi6ohYFRqCWbpZN5 pjNfxC8PrkJC7WXMax2p2Qa62M1 5iZ5EmdCN+QBHueDR4dWB8 cI6yZpVuSaV5UUunG504QaSygYE vRzpzv9bit0yvrNr6JmP8ZXSncs RenEouOIR6e7PiWa25E79t IHdpZHRoPSIxNSUiIHZhbGlnbj0 htF8rVj0+JNFjyAU2gDA7qQ5pVq MlCcO4OYftC874KwYdvVRa Jglhz8czi4ecjNa6WlQfAHOinhS muYbxMQT9c5TnJn89Q9AvkFnmt3 ZxTfi2av70zXZrl7P4kHQ0 O1IcWXKprcvhyBLcxZntGN8zPZN gklmoVUKfbI3hPWPhJ9m9MuGjSf T5RZszY3LzhaQ6RQTlxNWd AKlrFPO3H46mp3U4TLDhRYGeHCK 7wOV3rH7taIytrqxlyAYpgJhwnr IzjEeeRDzgHDztI424GDPi pOvxINWubV4oITHygKXffRxeRI9 wNTBpbjsnPlZPTExNQVIsIEVMSV qESkOWHEVHVB46BW82lKLm l6O3mKU2K4FaMGNwakxaisfihPF 4TVPvATBomX71gIEeDYluBn9ur3 E7i903OPKdEGVyxJ51Fs5t rUmjQJEcxKBCbK2libygd9hbwyu kIvSyANTgTQm2VWp4XGYhyDobFb PiMMY6BmG3NJK7dUDyyW5z iLhddgfgeM5yTbh+MDEvMDUvMTk 3NjwvdGQ+MJXhSYC3xDbwBChqTL JjyP3pSMBxO5x7SbRnNhJ8 GQkrO5HuJIPzkmevAg44xT8hNzS zYzB4KAiqQ6HfwoF3ZYZrqJQfYN oqGYY6U20sn0K9MKPeWKKp LNN6mOF9vR3olWwdizhznSPuqTn iegArlBxaCYguGSmtB203ZXGbfI gfJzX0XDqwGJNfFY58GM04 lQNpb7G4tLN3P1KhVCHpmrevjrz rfWJ5DROvKVFflU49uSTpKEcuQh 4xr2Q8c992FSCeXXFubO21 Nm0hlXnsIUHhqARJuQ1xiiaeh8v usskdItDlHKNkPJq5RPa2JBOlvJ ghDyTkKQT4ViT1KAE5fPOo fT7cpXlyedumqC9dNpe+RmVtYWx uVK89OL96iUKyd4Y1zVY3V7BfAJ GivskgwpjcuMF9RXOqTUPy bI47zVYpBLjtUc1mb1P0n468OLR hPOQgmA92Nk5qmWboDQAnwZEFwF 0rrryvh7qmbguvXiYlMWOo QSp5DHv4RRQetMghJqLsWZR2TaN 7YQS4tURodV0lqVuasxpowV3xEt c+UR1oknzwzmE1XC11RL41 L6BlPjjxeAKgdSX+PHRhYmxlIHd pDETnPFycGCSrLaJttFfiLF0oVe 9yZGVyLWNvbGxhcHNlOiBj s4swOAQvFHujMG5nbWocQ7TptXW 3BRVly3n5Zj39U13kC8PlxJV+PG PfjHX5kCA4sX2nSxZnNjV1 HNkzX796HbBamDTiCsdzc2trc7l hdHo5UaSpRGWmafYlkXjiVUQ7n7 GjDe00K80jIHccZOLmILVa ADVqPQHeqUmazr4leF3bSf0+PGN edEL6gTH9sD2cTrJcFwL9XKhoU1 43LuZvqJLgFnaaD27sB7Jc dXA+LWOnHbc8AGOsuBheQJ2xnAR cVHdwDq3cYPR4GyKdQiSoTCzxU0 MnDEJoapttiobjsGE3NYZx UQZjoH98Yt8ncVruOu2aXZTcEMW 1AOJlhQCyD2VgrE7bOcAqMVRpYD EzF7OueQZiXZpgX487BEja QoS4KWJrdoKkI2LnKHZeeGrgFxI 2s8W8Xf1OnTbfbERiDW1vKySxDQ a1T8UnHff2MEQyaQmxVY5a dCRdSDyyNp9mlWbaoSslPI1rTJA abkktj027BrHeu7riKGTofAKoAY daIKM2A47rt5W6UEVgPMWu IAV1gMV4iZ4bzNmivmayfTNyoAo rfjDxzXqcXRyuGVavV924JVTicA uoVmIBHjz9J4XaZkv9PMZa tZnwOH1auXMsTUlpPz9wfIulnZo yRT4gAZYtvxvza063IjDvj6idOM LtjUWaWPoqKRY2X18jk0P8 SIBjLAAdDIR3mSL6nF3tnPtignf gbGVmdDsgdmVydGljYWwtYWxpZ2 06QWLguXrrFz1PVnw8Q1Lu Wrw2ZWOojAfdYY3svINjVSifDh1 wxJahpWkgGF0jJVIqjuptu484Zz Ghw6yjHOQioTMnUVxbTCK8 U42zs2E3VYPyMPEjUBB5iQS2uT6 hbGlnbjogbGVmdDsgdmVydGljYW daPRhbQ916SQTclWkoJhTb eWVyOjwvdGQ+AI76ep03U6FcAju zVvy6CCXeXJA7sCC9fU6sKZLzLD qks6A6mPZ4O7UjqdLfcs7m b2xs (more content not included)... Normal [facility] CT Abdomen/Pelvis w/ Contras ton 10-21-2021 [...] ml's: 100 Rectal Contrast Given? No Normal [facility] Auto Diffon 10-20-2021 Basophils/100 WBC (Bld) 0.9 % Normal 0.0-2.0 [facility] Comment on above: Order Comment: Order Added by Discern Expert. Performed By: #### 2 271871, 0103729, 0506570, 4307087, 1395288, 02990033 ####[facility] [address] [place] [address] Basophils/Leukocyte s Auto (Bld) [Pure # fraction] 0.1 E9/L Normal 0.0-0.2 [facility] Comment on above: Order Comment: Order Added by Discern Expert. Performed By: #### 2 832114, 4704422, 4590305, 6372988, 5189900, 57113172 ####[facility] [address] [place] [address] Eosinophils/100 WBC (Bld) 1.3 % Normal 0.0-8.0 [facility] Comment on above: Order Comment: Order Added by Discern Expert. Performed By: #### 2 846850, 9738055, 4496944, 3033855, 1040004, 29144993 ####[facility] [address] [place] [address] Eosinophils/Leukocy denise Auto (Bld) [Pure # fraction] 0.2 E9/L Normal 0.0-0.5 [facility] Comment on above: Order Comment: Order Added by Discern Expert. Performed By: #### 2 076540, 5741806, 2073864, 1025959, 9753469, 56711246 ####[facility] [address] [place] [address] Lymphocytes/100 WBC (Bld) 19.8 % Normal 14.0-50.0 [facility] Comment on above: Order Comment: Order Added by Discern Expert. Performed By: #### 2 367890, 9673414, 2260948, 5764056, 0030751, 61315442 ####[facility] [address] [place] [address] Lymphocytes/Leukocy denise Auto (Bld) [Pure # fraction] 2.6 E9/L Normal 1.0-4.0 [facility] Comment on above: Order Comment: Order Added by Discern Expert. Performed By: #### 2 958465, 4072663, 8030067, 4423399, 5821686, 94880792 ####[place] [address] [place] [address] Monocytes/100 WBC (Bld) 6.0 % Normal 4.0-14.0 [facility] Comment on above: Order Comment: Order Added by Carolann Expert. Performed By: #### 2 819024, 0767316, 5465336, 6110343, 8194213, 45946266 ####[place] [address] [place] [address] Monocytes/Leukocyte s Auto (Bld) [Pure # fraction] 0.8 E9/L Normal 0.2-1.0 [facility] Comment on above: Order Comment: Order Added by Carolann Expert. Performed By: #### 2 799781, 0479172, 7674159, 8120028, 5697967, 15933132 ####[place] [place] [address] Neutrophils/100 WBC (Bld) 72.0 % Normal 36.0-75.0 [facility] Comment on above: Order Comment: Order Added by Carolann Expert. Performed By: #### 2 867403, 9817782, 2838889, 3005480, 6763806, 63538863 ####[place] [place] [address] Neutrophils/Leukocy denise Auto (Bld) [Pure # fraction] 9.4 E9/L High 2.0-7.5 [facility] Comment on above: Order Comment: Order Added by Carolann Expert. Performed By: #### 2 302263, 9815589, 8393992, 2857699, 8215334, 40470039 ####[facility] [address] [place] [address] BMPon 10-20-2021 Creatinine [Mass/Vol] 0.6 mg/dL Normal 0.5-1.3 [facility] Comment on above: Performed By: #### 2 796060, 5162247, 4144557, 6400746, 9181345, 11489620 ####[facility] [address] [place] [address] Urea nitrogen [Mass/Vol] 11 mg/dL Normal 5-21 [facility] Comment on above: Performed By: #### 2 090964, 7611000, 8795336, 2407482, 9301680, 37196198 ####[facility] [address] [place] [address] Urea nitrogen/Creatinine [Mass ratio] 18 No Units Normal 10-20 [facility] Comment on above: Performed By: #### 2 871402, 0112414, 9481837, 5442332, 3229368, 17700095 ####[facility] [address] [place] [address] Anion gap [Moles/Vol] 13 mmol/L Normal 6-16 [facility] Comment on above: Performed By: #### 2 750906, 1021542, 2543333, 7996233, 8967541, 96436468 ####[facility] [address] [place] [address] Calcium [Mass/Vol] 9.4 mg/dL Normal 8.9-11.1 [facility] Comment on above: Performed By: #### 2 355966, 9718679, 9590001, 4631007, 1012886, 74286707 ####[facility] [address] [place] [address] Chloride [Moles/Vol] 99 mmol/L Low 101-111 [facility] Comment on above: Performed By: #### 2 637318, 7658167, 6244633, 1197698, 2470729, 17740094 ####[facility] [address] [place] [address] CO2 [Moles/Vol] 25 mmol/L Normal 21-31 [facility] Comment on above: Performed By: #### 2 890783, 4248332, 6811125, 1417310, 0854701, 82633187 ####[facility] [address] [place] [address] Glucose [Mass/Vol] 111 mg/dL Normal 55-199 [facility] Comment on above: Result Comment: If t his glucose result represents a fasting glucose, interpretation should refer to the following reference range: 55-99 mg/dL Performed By: #### 2 232917, 4095759, 8557225, 0201389, 7841802, 37914366 ####[facility] [address] [place] [address] Potassium [Moles/Vol] 3.8 mmol/L Normal 3.5-5.3 [facility] Comment on above: Performed By: #### 2 684088, 7878985, 4973131, 2985672, 3962904, 75041412 ####[facility] [address] [place] [address] Sodium [Moles/Vol] 133 mmol/L Low 135-145 [facility] Comment on above: Performed By: #### 2 224334, 4188237, 0870611, 9749238, 9869132, 67289799 ####[facility] [address] [place] [address] CBC w/ Auto Diffon Erythrocyte distribution width (RBC) [Ratio] 13.5 % Normal 10.9-14.2 [facility] Comment on above: Performed By: #### 2 659171, 3022294, 9014127, 6661421, 2811721, 84927836 ####[facility] [address] [place] [address] Hematocrit (Bld) [Volume fraction] 41.8 % Normal 34.0-46.0 [facility] Comment on above: Performed By: #### 2 636804, 9766301, 6327159, 7751152, 5007227, 06485573 ####[address] [address] Hemoglobin (Bld) [Mass/Vol] 14.1 g/dL Normal 12.0-16.0 [facility] Comment on above: Performed By: #### 2 138498, 2501098, 4941724, 3857213, 9923809, 06879179 ####[address] [address] MCH (RBC) [Entitic mass] 27.2 pg Normal 27.0-34.0 [facility] Comment on above: Performed By: #### 2 325371, 5978607, 6379657, 5279294, 0846720, 08891403 ####[address] [address] MCHC (RBC) [Mass/Vol] 33.7 g/dL Normal 31.4-36.0 [facility] Comment on above: Performed By: #### 2 572070, 8665707, 4184462, 5137715, 9520546, 98675663 ####[address] [address] MCV (RBC) [Entitic vol] 80.6 fL Normal 80.0-100.0 [facility] Comment on above: Performed By: #### 2 976589, 7778451, 1643085, 1206411, 8956712, 43540837 ####[address] [address] Platelet mean volume (Bld) [Entitic vol] 7.9 fL Normal 6.4-10.8 [facility] Comment on above: Performed By: #### 2 517100, 4524488, 1690162, 2101895, 4504175, 47402261 ####[address] [place] [address] Platelets (Bld) [#/Vol] 473.0 E9/L Normal 150.0-500.0 [facility] Comment on above: Performed By: #### 2 445220, 3676004, 6132652, 4133926, 7860214, 04662126 ####[facility] [address] [place] [address] RBC (Bld) [#/Vol] 5.2 E12/L Normal 4.3-5.9 [facility] Comment on above: Performed By: #### 2 646013, 4823028, 6424736, 7036534, 5156981, 84657027 ####[facility] [address] [place] [address] WBC corrected for nucl RBC Auto (Bld) [#/Vol] 13.1 E9/L High 4.0-11.0 [facility] Comment on above: Performed By: #### 2 826821, 6835291, 5828864, 4644722, 3097897, 26189236 ####[facility] [address] [place] [address] CHEMISTRYOrdered By: SYSTEM SYSTEM on 10-20-2021 Albumin [...] 0.1 mg/dL Normal 0.1 - 0.4 mg/dL [facility] Bilirubin.indirect [Mass or moles/Vol] 0.7 mg/dL Normal 0.1 - 0.9 mg/dL [facility] Calcium [Mass/Vol] 9.4 mg/dL Normal 8.9 - 11. 1 mg/dL [facility] Chloride [Moles/Vol] 99 mmol/L Low 101 - 111 mmol/L [facility] CO2 [Moles/Vol] 25 mmol/L Normal 21 - 31 mmol/L [facility] Creatinine [Mass/Vol] 0.6 mg/dL Normal 0.5 - 1.3 mg/dL [facility] GFR/1.73 sq M.predicted among blacks MDRD (S/P/Bld) [Vol rate/Area] mL/min/1.73 m2 Normal >=59mL/min/ 1.73 m2 [facility] Chem S GFR/1.73 sq M.predicted among non-blacks MDRD (S/P/Bld) [Vol rate/Area] mL/min/1.73 m2 Normal >=59mL/min/ 1.73 m2 [facility] Chem S Globulin (S) [Mass/Vol] 3.8 g/dL [...] Consent for Treatmenton 10-07 Consent for Treatment [id number]:[address] [facility] Discharge Instructionson Discharge Instructions [id number]:[address] [facility] ED Clinical Summaryon 2021 ED Clinical Summary (Inserted Image. Ade ble to display) [place] [id number] ED Clinical Summary Person Information Name: GLADIS MICHAEL [facility] Age: 46 Years : 1975 Sex: Female Language: Thai PCP: KAILYN WAITE CNP Marital Status: Phone: [phone] Visit Id: Visit Reason: Nausea; Abdominal pain; [...] 10/20/2021 21:20:18 10/20/2021 21:20:18 10/20/2021 21:20:18 ADDRESS: [address] [place] [id number] PHYS DOC NOTES: MEDICAL INFORMATION: Prescriptions Given: New Medications [id number], [address] [place], [place] [id number], [phone] ketorolac (ketorolac 10 mg Tab) 1 Tablets [...] Cyst Follow up: With: [facility]: [facility] [address] [place] [address] [place] [address] Business (1) In 3 days 10/23/2021 DIAGNOSIS: Hydrosalpinx; Left ovarian cyst Normal [facility] ED Note-Nursingon 10-20-2021 ED Note-Nursing pt given d/c instruc tions and educated on importance of follow up. pt educated on new medication. pt verbalized understanding of instructions and readiness for d/c. pt walked self ambulatory to waiting room in stable condition and was driven home by her [facility] ED Note-Physicianon 10-21-19 ED Note-Physician Basic Information [...] doxycycline and already has an appointment with [employer] on Friday. Because she gets somewhat relief [...] day(s), # 20 tab(s), Refills(s) 0, Pharmacy: [id number], 160, cm, 10/20/21 18:21:00 EDT, Height/Length [...] CT Abdomen/Pelvis w/ Contrast Medications Administered Given nzseza2Xlbtbjphc [F], 15 mg, IV Push Zofran 4 mg/2 mL Injection, 4 mg, IV Push Disposition Plan Discharge Prescription List Prescriptions ketorolac 10 mg Tab, 10 mg= 1 tab(s), Oral, q6hr, PRN Follow-up With When Contact Information Gustavo FONTAINE In 3 days 10/23/[address] [place] [place] [address]- Business (1) Additional Instructions: Patient Education Ovarian Cyst [...] Use, 11/09/ (more content not included)... Normal [facility] Comment on above: Result Comment: Elec tronically [...] Follow these instructions at home: ? Take uchr-mpy-cyiwawl and prescription medicines only as told by [...] than usual. (more content not included)... Normal [facility] ED Patient Summaryon 022 ED Patient Summary (Inserted Image. Ade ble to display) [place] [id number] Patient Discharge Instructions Person Information Name: GLADIS MICHAEL Age: 46 Years Arrival Date: 10/20/2021 18:18:20 Discharge Diagnosis: Hydrosalpinx; Left ovarian cyst Primary Care Physician: KAILYN WAITE CNP Provider Information Primary Provider: Hunter Conte DO Advanced Benefits Clerk:None The exam and treatment you received in the Emergency Department were for an urgent problem and are not intended as complete care. It is important that you follow up with a doctor, nurse practitioner, or physician?s family readiness support assistant for ongoing care. If your symptoms become worse or you do not improve as expected and you are unable to reach your usual health care provider, you should return to the Emergency Department. We are available 24 hours a day. GLADIS MICHAEL has been given the following list of patient education materials, prescriptions and follow-up instructions: Follow-up Instructions: With: Address: When: [facility] [address] [place] [address] , [place] [address] Business (1) In 3 days 10/23/2021 In the event that this physician does not participate in your insurance network, please consult with your insurance company to find a nearby participating provider. Patient Education Materials: Ovarian Cyst A MESSAGE TO ALL PATIENTS REGARDING OPIOIDS PRESCRIPTION OPIOIDS: WHAT YOU NEED TO KNOW Prescription opioids can be used to help relieve dclhbick-vl-msbwks pain and are often prescribed following a [...] be struggling with addiction, tell your health day care director and ask for guidance or call [employer]?S National Helpline at 5-895-18 (more content not included)... Normal [facility] HEMATOLOGYOrdered By: SYSTEM SYSTEM on 10-20-2021 Basophils/100 WBC (Bld) 0.9 % Normal 0.0 - 2.0 % [facility] HemeAutoSS Basophils/Leukocyte s Auto (Bld) [Pure # fraction] 0.1 E9/L Normal 0.0 - 0.2 E9/L [facility] HemeAutoSS Eosinophils/100 WBC (Bld) 1.3 % Normal 0.0 - 8.0 % [facility] HemeAutoSS Eosinophils/Leukocy denise Auto (Bld) [Pure # [...] 5.2 E12/L Normal 4.3 - 5.9 E12/L [facility] HemeAutoSS WBC corrected for nucl RBC Auto (Bld) [#/Vol] 13.1 E9/L High 4.0 - 11.0 E9/L [facility] HemeAutoSS Hep Func Panelon 10-20-2021 Albumin [Mass/Vol] 4.5 g/dL Normal 3.3-5.0 [facility] Comment on above: Performed By: #### 2 223903, 6736413, 5446809, 1332265, 3048326, [id number] ####[facility] [address] [place] [address] Albumin/Globulin (S) [Mass conc ratio] 1.2 Normal 1.1-2.2 [facility] Comment on above: Performed By: #### 2 985304, 6424072, 2907581, 8418831, 5685022, [id number] ####[facility] [address] [place] [address] ALP [Catalytic activity/Vol] 53 Int._Unit/L Normal 21-98 [facility] Comment on above: Performed By: #### 2 608877, 0551947, 3290952, 1389563, 6604462, 70206253 ####[facility] [address] [place] [address] ALT No additional P-5'-P [Catalytic activity/Vol] 23 Int._Unit/L Normal 6-46 [facility] Comment on above: Performed By: #### 2 611151, 4837665, 6015202, 4179653, 2352243, 77079750 ####[facility] [address] [place] [address] AST [Catalytic activity/Vol] 20 Int._Unit/L Normal 5-43 [facility] Comment on above: Performed By: #### 2 436260, 7785411, 3308287, 4723671, 0731052, 13800838 ####[facility] [address] [place] [address] Bilirubin [Mass/Vol] 0.8 mg/dL Normal 0.0-1.1 [facility] Comment on above: Performed By: #### 2 309206, 4152357, 6784706, 4954572, 4429940, 51668893 ####[facility] [address] [place] [address] Bilirubin.direct [Mass/Vol] 0.1 mg/dL Normal 0.1-0.4 [facility] Comment on above: Performed By: #### 2 553414, 9362718, 8528934, 2497612, 3755263, 12045030 ####[address] [place] [address] Bilirubin.indirect [Mass or moles/Vol] 0.7 mg/dL Normal 0.1-0.9 [facility] Comment on above: Performed By: #### 2 344139, 0829706, 8454652, 7121092, 6028479, 49658742 ####[address] [place] [address] Globulin (S) [Mass/Vol] 3.8 g/dL Normal 1.4-4.0 [facility] Comment on above: Performed By: #### 2 998341, 8964772, 5056464, 5141129, 0083704, 84321440 ####[address] [address] Protein [Mass/Vol] 8.3 g/dL High 6.0-7.8 [facility] Comment on above: Performed By: #### 2 525606, 8377829, 1018684, 9655909, 3778069, 42550671 ####[address] [place] [address] Lipase Levelon 10-20-2021 Lipase [Catalytic activity/Vol] 26 U/L Normal 13-58 [facility] Comment on above: Performed By: #### 2 608998, 4010289, 3580345, 7917907, 1793757, 45710180 ####[address] [place] [address] RAD - Preliminary Cat Scan R eporton 10-20-2021 RAD - Preliminary Cat Scan Report [id number] [facility] UA With Cult Reflexon 2021 Bilirubin Ql (U) Negative Normal Negative [facility] Comment on above: Performed By: #### 1 [id number] ####[facility] [address] [place] [address] Clarity (U) CLEAR Normal Clear [facility] Comment on above: Performed By: #### 1 2884524 ####[address] [address] Color (U) YELLOW Normal Yellow [facility] Comment on above: Performed By: #### 1 [id number] ####[facility] [address] [place] [address] Crystals LM Ql (Urine sed) Present Normal [facility] Comment on above: Performed By: #### 1 [id number] ####[address] [address] Epithelial cells.squamous LM.HPF (Urine sed) [#/Area] 0-2 Normal 0-2 [facility] Comment on above: Performed By: #### 1 [id number] ####[facility] [address] [place] [address] Glucose Test strip (U) [Mass/Vol] Negative Normal Negative [facility] Comment on above: Performed By: #### 1 [id number] ####[facility] [address] [place] [address] Hemoglobin Ql (U) Negative Normal Negative [facility] Comment on above: Performed By: #### 1 7816698 ####[facility] [address] [place] [address] Ketones (U) [Mass/Vol] Negative Normal Negative [facility] Comment on above: Performed By: #### 1 [id number] ####[facility] [place] [address] Terry.plasma/Lith ium.RBC (Bld) [Mass ratio] 0-3 Normal 0-3 [facility] Comment on above: Performed By: #### 1 [id number] ####[place] [address] Nitrite Ql (U) Negative Normal Negative [facility] Comment on above: Performed By: #### 1 5748822 ####[place] [address] pH (U) 6.0 [pH] Invalid Interpretation Code 5.0-9.0 [facility] Comment on above: Performed By: #### 1 9096165 ####[place] [address] Protein (U) [Mass/Vol] Negative Normal Negative [facility] Comment on above: Performed By: #### 1 4879066 ####[place] [address] Specific gravity (U) [Rel density] <=1.005 Invalid Interpretation Code 1.005-1.030 [facility] Comment on above: Performed By: #### 1 7970407 ####[place] [address] Type of Urine collection method Clean Catch Normal [facility] Comment on above: Performed By: #### 1 5623695 ####[place] [id number] Urobilinogen Qn (U) 0.2 {Sonya'U}/dL Normal 0.0-1.0 [facility] Comment on above: Performed By: #### 1 1155887 ####[address] [address] WBC Auto Ql (U) TRACE Abnormal Negative [facility] Comment on above: Performed By: #### 1 9867622 ####[address] [address] WBC LM.HPF (Urine sed) [#/Area] 0-5 Normal 0-5 [facility] Comment on above: Performed By: #### 1 3599398 ####[facility] [address] [place] [address] URINALYSISOrdered By: Sarmad michaels on 10-20-2021 Bilirubin [...] PM) Normal Negative [facility] UA Auto SS Terry.plasma/Lith ium.RBC (Bld) [Mass ratio] 0-3 /HPF Normal [...] [facility] UA Auto SS Urobilinogen Qn (U) 0.3923535 {Sonya'U}/dL Normal 0.0 - 1.0 EU/dL [facility] UA Auto SS WBC Auto Ql (U) Trace *ABN* (10/20/21 6:38 PM) Invalid Interpretation Code Negative [facility] UA Auto SS WBC LM.HPF (Urine sed) [#/Area] 0-5 /HPF Normal 0-5/HPF [facility] UA Auto SS eGFRon 10-20-2021 GFR/1.73 sq M.predicted among blacks MDRD (S/P/Bld) [Vol rate/Area] mL/min/{1.73_m2} Normal >=59 [facility] Comment on above: Order Comment: Order added by Discern Expert. Result Comment: eGFR is race adjusted. AA=. Performed By: #### 2 518280, 4815856, 8493519, 4940944, 0712371, 07076723 ####[facility] [address] [place] [address] GFR/1.73 sq M.predicted among non-blacks MDRD (S/P/Bld) [Vol rate/Area] mL/min/{1.73_m2} Normal >=59 [facility] Comment on above: Order Comment: Order added by Discern Expert. Result Comment: Cargo Service Agent ramo kidney disease could be indicated at eGFR's of less than 60 mL/min/1.73m2. Kidney failure is indicated at less than 15 mL/min/1.73m2. Performed By: #### 2 403160, 5475032, 7412362, 0428172, 1818405, 40361253 ####[facility] [address] [place] [address] Auto Diffon 10-18-2021 Basophils/100 WBC (Bld) 1.0 % Normal 0.0-2.0 [facility] Comment on above: Order Comment: Order Added by Discern Expert. Performed By: #### 2 358223, 6082344, 96582330, 9577890, 0335209, 0457914, 6448673 #### [facility] Laboratory [address] [place] [address] Basophils/Leukocyte s Auto (Bld) [Pure # fraction] 0.1 E9/L Normal 0.0-0.2 [facility] Comment on above: Order Comment: Order Added by Discern Expert. Performed By: #### 2 943936, 2492680, 27564536, 4593717, 0860728, 1092670, 6570701 #### [facility] Laboratory [address] [place] [address] Eosinophils/100 WBC (Bld) 1.3 % Normal 0.0-8.0 [facility] Comment on above: Order Comment: Order Added by Discern Expert. Performed By: #### 2 636056, 4275435, 39304911, 7337442, 3667371, 3894699, 3885424 #### [facility] Laboratory [address] [place] [address] Eosinophils/Leukocy denise Auto (Bld) [Pure # fraction] 0.1 E9/L Normal 0.0-0.5 [facility] Comment on above: Order Comment: Order Added by Carolann Expert. Performed By: #### 2 668265, 1960214, 63574831, 0912292, 1557988, 1648020, 4581213 #### [facility] Laboratory [address] [place] [address] Lymphocytes/100 WBC (Bld) 25.5 % Normal 14.0-50.0 [facility] Comment on above: Order Comment: Order Added by Carolann Expert. Performed By: #### 2 358953, 3074180, 58805279, 4748638, 2736365, 8095719, 8975736 #### [facility] Laboratory [address] [place] [address] Lymphocytes/Leukocy denise Auto (Bld) [Pure # fraction] 2.6 E9/L Normal 1.0-4.0 [facility] Comment on above: Order Comment: Order Added by Carolann Expert. Performed By: #### 2 091312, 1227432, 79638886, 3539068, 2004448, 1351445, 1848876 #### [facility] Laboratory [address] [place] [address] Monocytes/100 WBC (Bld) 5.7 % Normal 4.0-14.0 [facility] Comment on above: Order Comment: Order Added by Discern Expert. Performed By: #### 2 548825, 0556915, 59176128, 4183847, 3112128, 7996613, 0003989 #### [facility] Laboratory [address] [place] [address] Monocytes/Leukocyte s Auto (Bld) [Pure # fraction] 0.6 E9/L Normal 0.2-1.0 [facility] Comment on above: Order Comment: Order Added by Discern Expert. Performed By: #### 2 184091, 8128291, 70365709, 5434068, 7801792, 1600644, 8419813 #### [facility] Laboratory [address] [place] [address] Neutrophils/100 WBC (Bld) 66.5 % Normal 36.0-75.0 [facility] Comment on above: Order Comment: Order Added by Discern Expert. Performed By: #### 2 714185, 9340945, 43188182, 6717761, 6904354, 6812948, 3452502 #### [facility] Laboratory [address] [place] [address] Neutrophils/Leukocy denise Auto (Bld) [Pure # fraction] 6.7 E9/L Normal 2.0-7.5 [facility] Comment on above: Order Comment: Order Added by Carolann Expert. Performed By: #### 2 229310, 4852473, 30770309, 3297978, 4484902, 2149368, 9037635 #### [facility] Laboratory [address] [place] [address] BMPon 10-18-2021 Creatinine [Mass/Vol] 0.4 mg/dL Low 0.5-1.3 [facility] Comment on above: Performed By: #### 2 386168, 3787393, 73104669, 3010768, 1801477, 5614218, 5965722 ####[facility] [address] [place] [address] Urea nitrogen [Mass/Vol] 13 mg/dL Normal 5-21 [facility] Comment on above: Performed By: #### 2 601987, 0877590, 01448890, 1189998, 5962572, 5073075, 3983303 ####[facility] [address] [place] [address] Urea nitrogen/Creatinine [Mass ratio] 32 No Units High 10-20 [facility] Comment on above: Performed By: #### 2 679227, 6336829, 84646909, 6285606, 0868488, 7696398, 3473217 ####[facility] [address] [place] [address] Anion gap [Moles/Vol] 12 mmol/L Normal 6-16 [facility] Comment on above: Performed By: #### 2 400119, 1001427, 34402316, 0468753, 5243849, 2529537, 0835441 ####[facility] [address] [facility] [place] [address] Calcium [Mass/Vol] 9.1 mg/dL Normal 8.9-11.1 [facility] Comment on above: Performed By: #### 2 717832, 7853786, 06731043, 0629429, 7741377, 2342786, 5948624 ####[facility] [address] [address] Chloride [Moles/Vol] 102 mmol/L Normal 101-111 [facility] Comment on above: Performed By: #### 2 398354, 1369581, 18021322, 5763307, 4394504, 0597795, 7043857 ####[facility] [address] [place] [address] CO2 [Moles/Vol] 24 mmol/L Normal 21-31 [facility] Comment on above: Performed By: #### 2 540512, 7824235, 31653230, 0063949, 3118981, 1806209, 8311547 ####[facility] [address] [place] [address] Glucose [Mass/Vol] 108 mg/dL Normal 55-199 [facility] Comment on above: Result Comment: If t his glucose result represents a fasting glucose, interpretation should refer to the following reference range: 55-99 mg/dL Performed By: #### 2 684930, 4390514, 73111351, 4179984, 6109502, 6862349, 6880880 ####[facility] [address] [place] [address] Potassium [Moles/Vol] 3.7 mmol/L Normal 3.5-5.3 [facility] Comment on above: Performed By: #### 2 166848, 3341879, 36624963, 1187933, 9504877, 4828441, 9928577 ####[facility] [address] [place] [address] Sodium [Moles/Vol] 134 mmol/L Low 135-145 [facility] Comment on above: Performed By: #### 2 448752, 1412456, 15466347, 6137763, 4158665, 5900719, 7095034 ####[facility] [address] [place] [address] CBC w/ Auto Diffon Erythrocyte distribution width (RBC) [Ratio] 13.5 % Normal 10.9-14.2 [facility] Comment on above: Performed By: #### 2 819099, 5381246, 27660544, 2755729, 4913710, 5463128, 7199132 #### [facility] Laboratory [address] [place] [address] Hematocrit (Bld) [Volume fraction] 38.7 % Normal 34.0-46.0 [facility] Comment on above: Performed By: #### 2 885140, 9703370, 98528864, 1115993, 6165583, 6027052, 7391390 #### [facility] Laboratory [address] [place] [address] Hemoglobin (Bld) [Mass/Vol] 13.2 g/dL Normal 12.0-16.0 [facility] Comment on above: Performed By: #### 2 073698, 5339786, 42319266, 4046142, 9009669, 2223830, 9642298 #### [facility] Laboratory [address] [place] [address] MCH (RBC) [Entitic mass] 27.6 pg Normal 27.0-34.0 [facility] Comment on above: Performed By: #### 2 898393, 9742578, 60950149, 2619607, 3421690, 4988261, 8873103 #### [facility] Laboratory [address] [place] [address] MCHC (RBC) [Mass/Vol] 34.2 g/dL Normal 31.4-36.0 [facility] Comment on above: Performed By: #### 2 225464, 6244031, 94899775, 4965436, 6669702, 5601986, 9027454 #### [facility] Laboratory [address] [place] [address] MCV (RBC) [Entitic vol] 81.0 fL Normal 80.0-100.0 [facility] Comment on above: Performed By: #### 2 460987, 4595270, 45695897, 6058214, 5440955, 9401764, 4142196 #### [facility] Laboratory [address] [place] [address] Platelet mean volume (Bld) [Entitic vol] 7.9 fL Normal 6.4-10.8 [facility] Comment on above: Performed By: #### 2 631131, 2209783, 91941947, 8611768, 2562805, 5297905, 2491104 #### [facility] Laboratory [address] [place] [address] Platelets (Bld) [#/Vol] 415.0 E9/L Normal 150.0-500.0 [facility] Comment on above: Performed By: #### 2 014138, 6033625, 05824676, 1843376, 3542004, 3835884, 4451827 #### [facility] Laboratory [address] [place] [address] RBC (Bld) [#/Vol] 4.8 E12/L Normal 4.3-5.9 [facility] Comment on above: Performed By: #### 2 034253, 4110486, 93602550, 5712373, 3911644, 1154601, 7570816 #### [facility] Laboratory [address] [place] [address] WBC corrected for nucl RBC Auto (Bld) [#/Vol] 10.1 E9/L Normal 4.0-11.0 [facility] Comment on above: Performed By: #### 2 307331, 7374176, 43498909, 6139852, 0605260, 3570751, 8777420 #### [facility] Laboratory [address] [place] [address] CHEMISTRYOrdered By: SYSTEM SYSTEM on 10-18-2021 Albumin [...] 102 mmol/L Normal 101 - 111 mmol/L FT Remisol CO2 [Moles/Vol] 24 mmol/L Normal 21 - 31 mmol/L FT Remisol Creatinine [Mass/Vol] 0.4 mg/dL Low 0.5 - 1.3 mg/dL FT Remisol GFR/1.73 sq M.predicted among blacks MDRD (S/P/Bld) [Vol rate/Area] mL/min/1.73 m2 Normal >=59mL/min/ 1.73 m2 FT Chem S GFR/1.73 sq M.predicted among non-blacks MDRD (S/P/Bld) [Vol rate/Area] mL/min/1.73 m2 Normal >=59mL/min/ 1.73 m2 [facility] Chem S Globulin (S) [Mass/Vol] 3.6 g/dL [...] 300 Contrast amount in ml's: [address] [facility] Consent for Treatmenton 10-07 Consent for Treatment [id number]:[address] [facility] Discharge Instructionson Discharge Instructions [id number]:[address] [facility] ED Clinical Summaryon 2021 ED Clinical Summary (Inserted Image. Ade ble to display) [place] [id number] ED Clinical Summary Person Information Name: MADIRUALEXX GLADIS B [facility] Age: 46 Years : 1975 Sex: Female Language: Thai PCP: KAILYN WAITE CNP Marital Status: Phone: [phone] Visit Id: Visit Reason: Flank pain; Nausea; [...] 10/18/2021 12:30:36 10/18/2021 12:30:36 10/18/2021 12:30:36 ADDRESS: [address] [place] [phone] PHYS DOC NOTES: MEDICAL INFORMATION: Prescriptions Given: New Medications [facility]/pharmacy #[id number], [address], [place] [id number], [phone] acetaminophen-oxycodone (Percocet 5 mg-325 mg oral tablet) [...] Follow up: With: Address: When: Gustavo FONTAINE [facility], [address] [place] [address] [place]án [place] [address] Business (1) In 3 days 10/21/2021 With: Address: When: KAILYN WAITE [address] [place] [phone] Business (1) In 3 days 10/21/2021 Comments: The ultrasound showed that you have fluid in your fallopian tube. Make sure to follow-up with Dr. Fontaine as instructed. Return to the emergency room if your pain gets worse, fever, vomiting or any new symptoms. DIAGNOSIS: 1:Hydrosalpinx; Abdominal pain, acute, left lower quadrant Normal [facility] ED Note-Physicianon 10-19-19 ED Note-Physician Basic Information Medical Decision Making The care of the patient was transitioned to ri upon shift change. The patient has presented [...] needed for pain, 12 tab(s), Refill(s) 0, [facility]/pharmacy #[id number], 160, cm, 10/18/21 4:04:00 EDT, Height/Length Dosing, 107, kg, 10/18/21 4:04:00 EDT, Weight Dosing Abdominal pain, acute, left lower quadrant (R10.32: Left lower quadrant pain) Orders: doxycycline, 100 mg = 1 tab(s), Oral, BID, # 20 tab(s), Refills(s) 0, Pharmacy: [facility]/pharmacy #[id number], 160, cm, 10/18/21 4:04:00 EDT, Height/Length [...] Gustavo FONTAINE In 3 days 10/21/[address] [place] [address]- Business (1) Additional Instructions: KAILYN WAITE In 3 days 10/21/2021 EDT [address] [place] [address]- [phone] Business (1) Additional Instructions: The ultrasound showed [...] 04:30:00) Lymph Auto: 25.5 % (10/18/21 04:30:00) [place] Auto: 5.7 % (10/18/21 04:30:00) Eos Auto: 1.3 % (10/18/21 04:30:00) Basophil Auto: 1 % (10/18/21 04:30:00) Neutro Absolute: 6.7 E9/L (10/18/21 04:30:00) Lymph Absolute: 2.6 E9/L (10/18/21 04:30:00) [place] Absolute: 0.6 E9/L (10/18/21 04:30:00) Eos Absolute: [...] gm/dL ( (more content not included)... Normal [facility] Comment on above: Result Comment: Elec tronically [...] 13.2 g (more content not included)... Normal [facility] Comment on above: Result Comment: Elec tronically [...] these instructions at home: Medicines ? Take bonx-vvo-djhmhyp and prescription medicines only as told by [...] your condition for any changes. ? Take elva-eut-lgvyqsj and prescription medicines only as told by [...] 03/05/2006 Document Revised: 10/04/2019 Document Reviewed: 10/04/2019 [employer] Patient Education ? [address] [employer] Normal [facility] ED Patient Summaryon 022 ED Patient Summary (Inserted Image. Ade ble to display) [address] [address] Patient Discharge Instructions Person Information Name: GLADIS MICHAEL Age: 46 Years Arrival Date: 10/18/2021 03:56:10 Discharge Diagnosis: 1:Hydrosalpinx; Abdominal pain, acute, left lower quadrant Primary Care Physician: KAILYN WAITE CNP Provider Information Primary Provider: Jeffy Das DO Advanced Benefits Clerk:None The exam and treatment you received in the Emergency Department were for an urgent problem and are not intended as complete care. It is important that you follow up with a doctor, nurse practitioner, or physician?s family readiness support assistant for ongoing care. If your symptoms [...] Follow-up Instructions: With: Address: When: Gustavo FONTAINE [facility], [address] [place] [address] [place] [address] Business (1) In 3 days 10/21/2021 With: Address: When: KAILYN WAITE [address] [place] [address] [phone] Business (1) In 3 days 10/21/2021 Comments: [...] opioids can be used to help relieve mqxplerg-rn-qvacbm pain and are often prescribed following a [...] mail-back p (more content not included)... Normal [facility] HEMATOLOGYOrdered By: SYSTEM SYSTEM on 10-18-2021 Basophils/100 WBC (Bld) 1.0 % Normal 0.0 - 2.0 % [facility] HemeAutoSS Basophils/Leukocyte s Auto (Bld) [Pure # fraction] 0.1 E9/L Normal 0.0 - 0.2 E9/L [facility] HemeAutoSS Eosinophils/100 WBC (Bld) 1.3 % Normal 0.0 - 8.0 % [facility] HemeAutoSS Eosinophils/Leukocy denise Auto (Bld) [Pure # fraction] 0.1 E9/L Normal 0.0 - 0.5 E9/L [facility] HemeAutoSS Lymphocytes/100 WBC (Bld) 25.5 % Normal [...] 6.7 E9/L Normal 2.0 - 7.5 E9/L [facility] HemeAutoSS HEMATOLOGYOrdered By: Gasper Moon on 10-18-2021 Erythrocyte distribution width (RBC) [Ratio] 13.5 % Normal 10.9 - 14.2 % [facility] HemeAutoSS Hematocrit (Bld) [Volume fraction] 38.7 % Normal 34.0 - 46.0 % [facility] HemeAutoSS Hemoglobin (Bld) [Mass/Vol] 13.2 g/dL Normal 12.0 - 16.0 gm/dL [facility] HemeAutoSS MCH (RBC) [Entitic mass] 27.6 pg [...] 4.8 E12/L Normal 4.3 - 5.9 E12/L [facility] HemeAutoSS WBC corrected for nucl RBC Auto (Bld) [#/Vol] 10.1 E9/L Normal 4.0 - 11.0 E9/L [facility] HemeAutoSS Hep Func Panelon 10-18-2021 Albumin [Mass/Vol] 4.2 g/dL Normal 3.3-5.0 [facility] Comment on above: Performed By: #### 2 251634, 2710974, 93867224, 8587291, 1252199, 4563572, 2934770 ####[facility] [address] [place] [address] Albumin/Globulin (S) [Mass conc ratio] 1.2 Normal 1.1-2.2 [facility] Comment on above: Performed By: #### 2 380929, 4226024, 49244689, 7576058, 7601148, 4760809, 5873487 ####[facility] [address] [place] [address] ALP [Catalytic activity/Vol] 48 Int._Unit/L Normal 21-98 [facility] Comment on above: Performed By: #### 2 877990, 0418421, 08035662, 5963828, 3368294, 6494630, 1087049 ####[facility] [address] [place] [address] ALT No additional P-5'-P [Catalytic activity/Vol] 26 Int._Unit/L Normal 6-46 [facility] Comment on above: Performed By: #### 2 475042, 2600326, 10421919, 9499173, 8607123, 2529592, 3238030 ####[facility] [address] [place] [address] AST [Catalytic activity/Vol] 23 Int._Unit/L Normal 5-43 [facility] Comment on above: Performed By: #### 2 911501, 3178575, 68284652, 0997046, 6646370, 6182408, 5131159 ####[facility] [address] [place] [address] Bilirubin [Mass/Vol] 0.8 mg/dL Normal 0.0-1.1 [facility] Comment on above: Performed By: #### 2 094650, 8324746, 03188662, 9595852, 1446160, 9551299, 5920428 ####[facility] [address] [place] [address] Bilirubin.direct [Mass/Vol] 0.2 mg/dL Normal 0.1-0.4 [facility] Comment on above: Performed By: #### 2 004310, 6575978, 21019697, 7753495, 9388006, 0589575, 4932132 ####[facility] [address] [place] [address] Bilirubin.indirect [Mass or moles/Vol] 0.6 mg/dL Normal 0.1-0.9 [facility] Comment on above: Performed By: #### 2 283079, 8794554, 95037139, 1115131, 3162602, 1791631, 7209161 ####[facility] [address] [place] [address] Globulin (S) [Mass/Vol] 3.6 g/dL Normal 1.4-4.0 [facility] Comment on above: Performed By: #### 2 379335, 1016832, 29687622, 7278429, 4861432, 5125130, 1438484 ####[facility] [address] [place] [address] Protein [Mass/Vol] 7.8 g/dL Normal 6.0-7.8 [facility] Comment on above: Performed By: #### 2 477080, 8692006, 01805543, 2114130, 6686510, 3360861, 5519470 ####[facility] [address] [place] [address] Lactic Acidon 10-18-2021 Lactate [Mass/Vol] 1.1 mmol/L Normal 0.5-2.2 [facility] Comment on above: Performed By: #### 2 430529, 9927742, 43502975, 3253564, 3541393, 6135124, 4572616 ####[facility] [address] [place] [address] Lipase Levelon 10-18-2021 Lipase [Catalytic activity/Vol] 28 U/L Normal 13-58 [facility] Comment on above: Performed By: #### 2 917324, 0500344, 42690697, 3241151, 2796347, 7280195, 3112818 ####[facility] [address] [place] [address] RAD - Preliminary Cat Scan R eporton 10-18-2021 RAD - Preliminary Cat Scan Report [id number]:[address] [facility] SEROLOGYOrdered By: Amber russ on 10-18-2021 HCG.beta subunit (U) [Moles/Vol] Negative Normal [facility] Man Sero U BetaHcg Qualon 10-18-2021 HCG.beta subunit (U) [Moles/Vol] Negative Normal [facility] Comment on above: Performed By: #### 2 9630135, 72285400 ####[address] [address] [address] UA With Cult Reflexon 2021 Bacteria LM Ql (Urine sed) TRACE Normal Trace [facility] Comment on above: Performed By: #### 2 [id number], [id number] ####[address] [address] Bilirubin Ql (U) Negative Normal Negative [facility] Comment on above: Performed By: #### 2 [id number], [id number] ####[address] [address] Clarity (U) CLEAR Normal Clear [facility] Comment on above: Performed By: #### 2 [id number], [id number] ####[address] [address] Color (U) STRAW Invalid Interpretation Code [facility] Comment on above: Performed By: #### 2 [id number], [id number] ####[facility] [address] [place] [address] Epithelial cells.squamous LM.HPF (Urine sed) [#/Area] 0-2 Normal 0-2 [facility] Comment on above: Performed By: #### 2 [id number], [id number] ####[facility] [address] [place] [address] Glucose Test strip (U) [Mass/Vol] Negative Normal Negative [facility] Comment on above: Performed By: #### 2 [id number], [id number] ####[address] [address] Hemoglobin Ql (U) TRACE Abnormal Negative [facility] Comment on above: Performed By: #### 2 [id number], [id number] ####[address] [address] Ketones (U) [Mass/Vol] Negative Normal Negative [facility] Comment on above: Performed By: #### 2 [id number], [id number] ####[facility] [address] [place] [address] Terry.plasma/Lith ium.RBC (Bld) [Mass ratio] 0-3 Normal 0-3 [facility] Comment on above: Performed By: #### 2 [id number], [id number] ####[facility] [address] [place] [address] Nitrite Ql (U) Negative Normal Negative [facility] Comment on above: Performed By: #### 2 [id number], [id number] ####[facility] [address] [place] [address] pH (U) 6.5 [pH] Invalid Interpretation Code 5.0-9.0 [facility] Comment on above: Performed By: #### 2 [id number], [id number] ####[address] [address] Protein (U) [Mass/Vol] Negative Normal Negative [facility] Comment on above: Performed By: #### 2 6487968, [id number] ####[place] [id number] Specific gravity (U) [Rel density] 1.010 Invalid Interpretation Code 1.005-1.030 [facility] Comment on above: Performed By: #### 2 [id number], [id number] ####[place] [id number] Type of Urine collection method Clean Catch Normal [facility] Comment on above: Performed By: #### 2 [id number], [id number] ####[place] [id number] Urobilinogen Qn (U) 0.2 {Sonya'U}/dL Normal 0.0-1.0 [facility] Comment on above: Performed By: #### 2 [id number], [id number] ####[place] [id number] WBC Auto Ql (U) TRACE Abnormal Negative [facility] Comment on above: Performed By: #### 2 2550719, [id number] ####[place] [id number] WBC LM.HPF (Urine sed) [#/Area] 0-5 Normal 0-5 [facility] Comment on above: Performed By: #### 2 [id number], [id number] ####[place] [id number] URINALYSISOrdered By: Gasper Moon on 10-18-2021 Bacteria LM Ql (Urine sed) Trace /HPF Normal Trace/HPF [facility] UA Auto SS Bilirubin Ql (U) Negative (10/18/21 5:09 AM) Normal Negative [facility] UA Auto SS Clarity (U) Clear (10/18/21 5:09 AM) Normal Clear [facility] UA Auto SS Color (U) STRAW Invalid Interpretation Code [facility] UA Auto SS Epithelial cells.squamous LM.HPF (Urine sed) [#/Area] 0-2 /HPF Normal 0-2/HPF [facility] UA Auto SS Glucose Test strip (U) [Mass/Vol] Negative (10/18/21 5:09 AM) Normal Negative [facility] UA Auto SS Hemoglobin Ql (U) Trace *ABN* (10/18/21 5:09 AM) Invalid Interpretation Code Negative [facility] UA Auto SS Ketones (U) [Mass/Vol] Negative (10/18/21 5:09 AM) Normal Negative [facility] UA Auto SS Terry.plasma/Lith ium.RBC (Bld) [Mass ratio] 0-3 /HPF Normal 0-3/HPF [facility] UA Auto SS Nitrite Ql (U) Negative (10/18/21 5:09 AM) Normal Negative [facility] UA Auto SS pH (U) 6.5 *NA* (10/18/21 5:09 AM) Invalid Interpretation Code 5.0 - 9.0 [facility] UA Auto SS Protein (U) [Mass/Vol] Negative (10/18/21 5:09 AM) Normal Negative [facility] UA Auto SS Specific gravity (U) [Rel density] 1.010 *NA* (10/18/21 5:09 AM) Invalid Interpretation Code 1.005 - 1.030 [facility] UA Auto SS UA Spec Desc Clean Catch (10/18/21 5:09 AM) Normal [facility] UA Auto SS Urobilinogen Qn (U) 0.8648521 {Sonya'U}/dL Normal 0.0 - 1.0 EU/dL [facility] UA Auto SS WBC Auto Ql (U) Trace *ABN* (10/18/21 5:09 AM) Invalid Interpretation Code Negative [facility] UA Auto SS WBC LM.HPF (Urine sed) [#/Area] 0-5 /HPF Normal 0-5/HPF [facility] UA Auto SS US Pelvis Non-OB Completeon [...] Brothers M.D. Transcribed by: RAMANDEEP Technologist: CAIN Hernandez [facility] US Transvaginal Non-OBon US Transvaginal Non-OB Exam Date/Time: 10/18/2021 07:59 EDT Reason for Exam: Pelvic pain Report PLEASE REFER TO THE ULTRASOUND NON-OB COMPLETE REPORT. FINAL REPORT Dictated: 10/18/2021 11:12 am Ethan Brothers M.D. Signed (Electronic Signature): 10/18/2021 11:12 am Signed by: Ethan Brothers M.D. Transcribed by: RAMANDEEP Technologist: CAIN Malin [facility] eGFRon 10-18-2021 GFR/1.73 sq M.predicted among blacks MDRD (S/P/Bld) [Vol rate/Area] mL/min/{1.73_m2} Normal >=59 [facility] Comment on above: Order Comment: Order added by Discern Expert. Result Comment: eGFR is race adjusted. AA=. Performed By: #### 2 [id number], [id number], [id number], 1929119, [id number], [id number], [id number] ####[facility] [address] [place] [address] GFR/1.73 sq M.predicted among non-blacks MDRD (S/P/Bld) [Vol rate/Area] mL/min/{1.73_m2} Normal >=59 [facility] Comment on above: Order Comment: Order added by Discern Expert. Result Comment: Cargo Service Agent ramo kidney disease could be indicated at eGFR's of less than 60 mL/min/1.73m2. Kidney failure is indicated at less than 15 mL/min/1.73m2. Performed By: #### 2 [id number], [id number], [id number], 9582281, 4124125, 0521258, [id number] ####[facility] [address] [place] [address] CBC AUTO DIFFon 09-27-2021 BASO # 0.1 103/ul Normal 0.0-0.1 [facility] Comment on above: Performed By: #### C BC #### [facility] [address] [place], [place] [address] Dr. Kristen Gambino Basophils/100 WBC (Bld) 1.0 % Normal 0.2-2.0 [facility] Comment on above: Performed By: #### C BC #### [facility] [address] [place] [address] Dr. Kristen Gambino EO # 0.1 103/ul Normal 0.0-0.7 [facility] Comment on above: Performed By: #### C BC #### [facility] [address] [place] [address] Dr. Kristen Gambino Eosinophils/100 WBC (Bld) 0.9 % Normal 0.9-7.0 [facility] Comment on above: Performed By: #### C BC #### [facility] [address] [place] [address] Dr. Kristen Gambino Erythrocyte distribution width (RBC) [Ratio] 13.3 % Normal 11.0-15.0 [facility] Comment on above: Performed By: #### C BC #### [facility] [address] [place] [address] Dr. Kristen Gambino Hematocrit (Bld) [Volume fraction] 44.6 % Normal 36.0-48.0 [facility] Comment on above: Performed By: #### C BC #### [facility] [address] [place] [address] Dr. Kristen Gambino Hemoglobin (Bld) [Mass/Vol] 14.4 g/dL Normal 12.0-16.0 [facility] Comment on above: Performed By: #### C BC #### [facility] [address] [place] [address] Dr. Kristen Gambino IG # 0.03 10e3/ul Normal 0.00-0.03 [facility] Comment on above: Performed By: #### C BC #### [facility] [address] [place] [address] Dr. Kristen Gambino IG % 0.3 % Normal 0.0-0.5 [facility] Comment on above: Performed By: #### C BC #### [facility] [address] [place] [address] Dr. Kristen Gambino LYMPH # 1.6 103/ul Normal 1.2-3.8 [facility] Comment on above: Performed By: #### C BC #### [facility] [address] [place] [address] Dr. Kristen Gambino Lymphocytes/100 WBC (Bld) 17.9 % Critically low 20.5-60.0 [facility] Comment on above: Performed By: #### C BC #### [facility] [address] [place] [address] Dr. Kristen Gambino MANUAL DIFF REQ NO Normal [facility] Comment on above: Performed By: #### C BC #### [facility] [address] [place] [address] Dr. Kristen Gambino MCH (RBC) [Entitic mass] 27.1 pg Normal 26.7-34.0 [facility] Comment on above: Performed By: #### C BC #### [facility] [address] [place] [address] Dr. Kristen Gambino MCHC (RBC) [Mass/Vol] 32.3 g/dL Normal 29.9-35.2 [facility] Comment on above: Performed By: #### C BC #### [facility] [address] [place] [address] Dr. Kristen Gambino MCV (RBC) [Entitic vol] 84.0 fL Normal 81.0-99.0 [facility] Comment on above: Performed By: #### C BC #### [facility] [address] [place] [address] Dr. Kristen Gambino MONO # 0.7 103/ul Normal 0.3-0.8 [facility] Comment on above: Performed By: #### C BC #### [facility] [address] [place] [address] Dr. Kristen Gambino Monocytes/100 WBC (Bld) 7.6 % Normal 1.7-12.0 [facility] Comment on above: Performed By: #### C BC #### [facility] [address] [place] [address] Dr. Kristen Gambino NEUT # 6.6 103/ul Critically high 1.4-6.5 [facility] Comment on above: Performed By: #### C BC #### [facility] [address] [place] [address] Dr. Kristen Gambino Neutrophils/100 WBC (Bld) 72.3 % Normal 43.0-75.0 [facility] Comment on above: Performed By: #### C BC #### [facility] [address] [place] [address] Dr. Kristen Gambino Platelet mean volume (Bld) [Entitic vol] 9.8 fL Normal 9.5-13.5 [facility] Comment on above: Performed By: #### C BC #### [facility] [address] [place] [address] Dr. Kristen Gambino PLT 427 103/ul Normal 150-450 [facility] Comment on above: Performed By: #### C BC #### [facility] [address] [place] [address] Dr. Kristen Gambino RBC 5.31 106/ul Normal 4.20-5.40 [facility] Comment on above: Performed By: #### C BC #### [facility] [address] [place] [address] Dr. Kristen Gambino WBC 9.1 103/ul Normal 4.0-11.0 [facility] Comment on above: Performed By: #### C BC #### [facility] [address] [place] [address] Dr. Kristen Gambino LIPID PROFILEon 09-27-2021 CHOL-HDL RATIO NORM SEE BELOW Normal [facility] Comment on above: Result Comment: 3.3 - 4.4 LOW RISK 4.4 - 7.1 AVERAGE RISK 7.1 - 11.0 MODERATE RISK >11.0 HIGH RISK Performed By: #### C MP, LIPID #### [facility] [address] [place] [address] Dr. Kristen Gambino Cholesterol [Mass/Vol] 186 mg/dL Normal <=200 [facility] Comment on above: Performed By: #### C MP, LIPID #### [facility] [address] [place] [address] Dr. Kristen Gambino Cholesterol in HDL [Mass/Vol] 43 mg/dL Normal 40-60 [facility] Comment on above: Performed By: #### C MP, LIPID #### [facility] [address] [place] [address] [address] Kristen Gambino Cholesterol in LDL [Mass/Vol] 106.6 mg/dL Normal [facility] Comment on above: Performed By: #### C MP, LIPID #### [facility] [address] [place] [address] [address] Kristen Gambino Cholesterol.total/C holesterol in HDL [Mass ratio] 4.3 {ratio} Normal [facility] Comment on above: Performed By: #### C MP, LIPID #### [facility] [address] [place] [address] Dr. Kristen Gambino HDL NORMAL > or = 60 mg/dl - LO W CARDIOVASCULAR RISK <40 mg/dl - HIGH CARDIOVASCULAR RISK Normal [facility] Comment on above: Performed By: #### C MP, LIPID #### [facility] [address] [place] [address] Dr. Kristen Gambino LDL CALC NORMAL SEE BELOW Normal [facility] Comment on above: Result Comment: <100 mg/dl OPTIMAL 100 - 129 mg/dl NEAR OR ABOVE OPTIMAL 130 - 159 mg/dl BORDERLINE HIGH 160 - 189 mg/dl HIGH >190 mg/dl VERY HIGH Performed By: #### C MP, LIPID #### [facility] [address] [place] [address] Dr. Kristen Gambino Triglyceride [Mass/Vol] 182 mg/dL Critically high <=150 [facility] Comment on above: Performed By: #### C MP, LIPID #### [facility] [address] [place] [address] Dr. Kristen Gambino VLDL CALC 36.4 mg/dL Normal [facility] Comment on above: Performed By: #### C MP, LIPID #### [facility] [address] [place] [address] [address] Kristen Gambino PROF 14(COMP METB)on 022 Albumin [Mass/Vol] 3.7 g/dL Normal 3.4-5.0 [facility] Comment on above: Performed By: #### C MP, LIPID #### [facility] [address] [place] [address] Dr. Kristen Gambino Albumin/Globulin [Mass ratio] 0.8 {ratio} Normal [facility] Comment on above: Performed By: #### C MP, LIPID #### [facility] [address] [place] [address] Dr. Kristen Gambino ALP [Catalytic activity/Vol] 70 U/L Normal 46-116 [facility] Comment on above: Performed By: #### C MP, LIPID #### [facility] [address] [place] [address] Dr. Kristen Gambino ALT [Catalytic activity/Vol] 35 U/L Normal 14-59 [facility] Comment on above: Performed By: #### C MP, LIPID #### [facility] [address] [place] [address] Dr. Kristen Gambino Anion gap [Moles/Vol] 13.1 mmol/L Normal [facility] Comment on above: Performed By: #### C MP, LIPID #### [facility] [address] [place] [address] Dr. Kristen Gambino AST [Catalytic activity/Vol] 19 U/L Normal 15-37 [facility] Comment on above: Performed By: #### C MP, LIPID #### [facility] [address] [place] [address] Dr. Kristen Gambino Bilirubin [Mass/Vol] 0.7 mg/dL Normal 0.2-1.3 [facility] Comment on above: Performed By: #### C MP, LIPID #### [facility] [address] [place] [address] Dr. Kristen Gambino Calcium [Mass/Vol] 8.5 mg/dL Normal 8.5-10.1 [facility] Comment on above: Performed By: #### C MP, LIPID #### [facility] [address] [place] [address] Dr. Kristen Gambino Chloride [Moles/Vol] 102 mmol/L Normal 98-107 [facility] Comment on above: Performed By: #### C MP, LIPID #### [facility] [address] [place] [address] Dr. Kristen Gambino CO2 [Moles/Vol] 25.9 mmol/L Normal 22.0-30.0 [facility] Comment on above: Performed By: #### C MP, LIPID #### [facility] [address] [place] [address] [address] Kristen Gambino Creatinine [Mass/Vol] 0.62 mg/dL Normal 0.52-1.04 [facility] Comment on above: Performed By: #### C MP, LIPID #### [facility] [address] [place] [address] [address] Krisetn Gambino EGFR-AF MOROCCAN >60 Normal >=60 [facility] Comment on above: Performed By: #### C MP, LIPID #### [facility] [address] [place] [address] [address] Kristen Gambino EGFR-NON AF MOROCCAN >60 Normal >=60 [facility] Comment on above: Performed By: #### C MP, LIPID #### [facility] [address] [place] [address] [address] Kristen Gambino Globulin (S) [Mass/Vol] 4.4 g/dL Normal [facility] Comment on above: Performed By: #### C MP, LIPID #### [facility] [address] [place] [address] [address] Kristen Gambino Glucose [Mass/Vol] 104 mg/dL Normal 74-106 [facility] Comment on above: Performed By: #### C MP, LIPID #### [facility] [address] [place] [address] [address] Kristen Gambino Potassium [Moles/Vol] 4.0 mmol/L Normal 3.4-5.0 [facility] Comment on above: Performed By: #### C MP, LIPID #### [facility] [address] [place] [address] [address] Kristen Gambino Protein [Mass/Vol] 8.1 g/dL Normal 6.1-8.2 [facility] Comment on above: Performed By: #### C MP, LIPID #### [facility] [address] [place] [address] [address] Kristen Gambino Sodium [Moles/Vol] 137 mmol/L Normal 137-145 [facility] Comment on above: Performed By: #### C MP, LIPID #### [facility] [address] [place], [place] [address] Dr. Kristen Gambino Urea nitrogen [Mass/Vol] 12.0 mg/dL Normal 7.0-18.0 [facility] Comment on above: Performed By: #### C MP, LIPID #### [facility] [address] [place], [place] [address] Dr. Kristen Gambino Urea nitrogen/Creatinine [Mass ratio] 19.4 mg/mg Normal [facility] Comment on above: Performed By: #### C MP, LIPID #### [facility] [address] [place], [place] [address] Dr. Kristen Gambino PROGRESSon 10-21-2017 PROGRESS HNO ID: [id number] thor: Isaac Carrasco: (none)Author Type: PhysicianType: Progress NotesFiled: 10/21/2017 2:01 PMNote Text:PATIENT NAME: Gladis PatelarMRN: [id number] PHYSICIAN: MCIHAEL Rubin[address] [place] [address]DPHLEDM CARE PHYSICIAN: MASOOD Rubin PHYSICIANS:CHIEF COMPLAINT: Pituitary [...] for5 days straight. Went to ER 02/26. [place] was negative, strep negative.Flu negative. She was [...] and hasnt bled since. First bloody nosein September.10/20/he has not had any more nosebleeds. Today [...] above; and my recommendationslisted below. The patient Gladis Michael verbalized understandingand agreed with these recommendations and plan. I answered all questionssatisfactorily..Tulio Shelton D.O.Medical OncologistOzarks Community Hospital CNOVSPon 10-20-2017 CNOVSP Visit (SP) Office ([place]) -------GLADIS MICHAEL ([id number]) 1975 FDate Time Provider Department10/20/17 10:00 AM ISAAC SHELTON During your visit today, we recorded the following information about you: Temperature Pulse Respiration Blood pressure 98.5 degrees 69/minute 18/minute 159/106 Weight Height 105.9 kg 1.575 Kassidy Shelton DO 10/21/2017 2:01 PM SignedPATIENT NAME: Gladis Daniels JerrodRN: [id number] PHYSICIAN: Joseph Harris [address] [facility] [id number] CARE PHYSICIAN: MASOOD Rubin PHYSICIANS:CHIEF COMPLAINT: Pituitary [...] for 5days straight. Went to ER 02/26. [place] was negative, strep negative. Flunegative. 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 Hematocrit (HCT) 39.5 % Normal 36.0-46.0 [facility] Hemoglobin mass conc (Bld) 13.4 g/dL Normal 11.5-15.5 [facility] MCH 28.2 pG Normal 26.0-34.0 [facility] MCHC mass conc (RBC) 33.9 g/dL Normal 30.5-36.0 [facility] MCV 83.0 fL Normal 80.0-100.0 [facility] Platelet mean volume (PMV) 9.4 fL Normal 9.0-12.7 [facility] Platelets 434 10*3/uL High 150-400 [facility] WBC (Leukocytes) 10.26 10*3/uL Normal 3.70-11.00 [facility] CNOVSPon 10-09-2017 CNOVSP Visit (SP) Office ([place]) -------GLADIS MICHAEL ([id number]) 1975 FDate Time Provider Department10/09/17 11:15 AM ISAAC SHELTON During your visit today, we recorded the following information about you: Temperature Pulse Respiration Blood pressure 98 degrees 75/minute 18/minute 151/106 Weight Height 111 kg 1.575 Isaac Myers 10/10/2017 2:10 AM SignedPATIENT NAME: Gladis PatelarMRN: [id number] PHYSICIAN: AVINASH Rubin [address] [facility] [id number] CARE PHYSICIAN: MASOOD Rubin PHYSICIANS:CHIEF COMPLAINT: Lymphocytosis (primary encounter diagnosis)Cervical adenopathyASSESSMENT/PLAN:E pistaxisConsidering previous CT of the neck scan finding of nasopharyngeal fullness, Ihave offered her repeat CT of the neck [...] and base of skull jesús.make f/u with evgenyf and Dr. Hernandez.. H PI: This is [...] for 5days straight. Went to ER 02/26. [place] was negative, strep negative. Flunegative. She was [...] plan. I answered allquestions satisfactorily..Hai Shelton D.O.Medical OncologistGarfield County [facility] [place], [place]Referring Provider: ISAAC SHELTON [[id number]]Allergies As of Date: 10/09/2017 Noted Allergy ReactionTOPROL XL (METOPROLOL) 04/11/2016 14 - Other: See Comments Comments: heart races per patientDate Reviewed: 10/09/2017Reviewed by: Denise Witt - Fully AssessedReason for Visit: lymphocytosis [Other] Cmt: follow up per nursePrimary Visit Diagnosis:Lymphocytosis [D72.820] Other Visit Diagnosis:Cervical adenopathy [R59.0]Order(s):CT NECK SOFT TISSUE W IVCON [[id number]] Order #: [id number] FUTURE [] iv contrast (radiology procedure)Inject 1 [...] 1 EachRfl: 0 CT CHEST WO IVCON [[id number]] Order #: [id number] FUTURE CT CHEST W IVCON [[id number]] Order #: [id number] FUTURE iv contrast (radiology procedure)CT Chest W [...] base of skull jesús. make f/u with myelmillicent and Dr. Hernandez..Follow-up and Disposition History RecordedPrescriptions as of 10/09/2017 [...] by ISAAC SHELTON DO on 10/10/17 Normal [facility] PROGRESSon 10-09-2017 PROGRESS HNO ID: [id number] thor: Isaac Shelton JService: (none)Author Type: PhysicianType: Progress NotesFiled: 10/10/2017 2:10 AMNote Text:PATIENT NAME: Gladis PatelarMRN: [id number] PHYSICIAN: AVINASH Rubin [facility] [place] [address]CMZTWUR CARE PHYSICIAN: MASOOD Rubin PHYSICIANS:CHIEF COMPLAINT: Lymphocytosis [...] and base of skullasap. make f/u with myelf and Dr. Hernandez.. H [...] for5 days straight. Went to ER 02/26. [place] was negative, strep negative.Flu negative. She was [...] of the chest abdomen pelvis and neck fromMarober 2016 of this were unrevealing. CT of the [...] plan.I answered all questions satisfactorily..Hai Shelton D.O.Medical OncologistMarble Canyon, [place] Normal [facility] APTTon 10-06-2017 aPTT 22.4 s Low 23.0-32.4 [facility] Comment on above: Result Comment: Unfr actionated [...] laboratory APTT reagent in use throughout the [facility]. Performed By: #### P T, PTT, BMP, HFP, LD6, WSR, SEPG, MPASRM, KLFRS ####[facility] [place], [place] [phone] Basic Metabolic Panlon 10-06 Anion gap 12 mmol/L Normal 9-18 [facility] Comment on above: Performed By: #### P T, PTT, BMP, HFP, LD6, WSR, SEPG, MPASRM, KLFRS ####[facility], [place] [phone] Calcium 9.5 mg/dL Normal 8.5-10.2 [facility] Comment on above: Performed By: #### P T, PTT, BMP, HFP, LD6, WSR, SEPG, MPASRM, KLFRS ####[facility] [place], [place] [phone] Chloride 96 mmol/L Low 97-105 [facility] Comment on above: Performed By: #### P T, PTT, BMP, HFP, LD6, WSR, SEPG, MPASRM, KLFRS ####[place] [address], [place] [phone] CO2 26 mmol/L Normal 22-30 [facility] Comment on above: Performed By: #### P T, PTT, BMP, HFP, LD6, WSR, SEPG, MPASRM, KLFRS ####[place] [address], [place] [phone] Creatinine 0.54 mg/dL Low 0.58-0.96 [facility] Comment on above: Performed By: #### P T, PTT, BMP, HFP, LD6, WSR, SEPG, MPASRM, KLFRS ####[address], [place] [phone] eGFR (non-black) mL/min/{1.73_m2} Normal [facility] Comment on above: Result Comment: eGFR [...] BMP, HFP, LD6, WSR, SEPG, MPASRM, KLFRS ####[place] [address], [place] [phone] Glucose mass conc 81 mg/dL Normal 74-99 [facility] Comment on above: Result Comment: The [place] Diabetes Association (ADA) provides guidance for cutoff [...] Standards of Medical Care in Diabetes 2016, [place] [employer]. Diabetes Care. 2016.39(Suppl 1). Performed By: #### P T, PTT, BMP, HFP, LD6, WSR, SEPG, MPASRM, KLFRS ####[place] [phone] Potassium molar conc 4.4 mmol/L Normal 3.7-5.1 [facility] Comment on above: Performed By: #### P T, PTT, BMP, HFP, LD6, WSR, SEPG, MPASRM, KLFRS ####[place] [address] [place] [phone] Sodium 134 mmol/L Low 136-144 [facility] Comment on above: Performed By: #### P T, PTT, BMP, HFP, LD6, WSR, SEPG, MPASRM, KLFRS ####[place] [phone] Urea nitrogen 10 mg/dL Normal 7-21 [facility] Comment on above: Performed By: #### P T, PTT, BMP, HFP, LD6, WSR, SEPG, MPASRM, KLFRS ####[place] [address] [place] [phone] Hepatic Functn Panelon 10-06 Alanine aminotransferase (ALT) 20 U/L Normal 7-38 [facility] Comment on above: Performed By: #### P T, PTT, BMP, HFP, LD6, WSR, SEPG, MPASRM, KLFRS ####[place] [address] [place] [phone] Albumin 4.3 g/dL Normal 3.9-4.9 [facility] Comment on above: Performed By: #### P T, PTT, BMP, HFP, LD6, WSR, SEPG, MPASRM, KLFRS ####[address] [phone] Alkaline phosphatase (ALP) 64 U/L Normal 32-117 [facility] Comment on above: Performed By: #### P T, PTT, BMP, HFP, LD6, WSR, SEPG, MPASRM, KLFRS ####[address] [phone] Aspartate aminotransferase (AST) 14 U/L Normal 13-35 [facility] Comment on above: Performed By: #### P T, PTT, BMP, HFP, LD6, WSR, SEPG, MPASRM, KLFRS ####[address] [phone] Bilirubin (total) 0.3 mg/dL Normal 0.2-1.3 [facility] Comment on above: Performed By: #### P T, PTT, BMP, HFP, LD6, WSR, SEPG, MPASRM, KLFRS ####[address] [place] [phone] Bilirubin,Conjugate d <0.2 Normal <0.2 [facility] Comment on above: Performed By: #### P T, PTT, BMP, HFP, LD6, WSR, SEPG, MPASRM, KLFRS ####[address] [phone] Protein 7.9 g/dL Normal 6.3-8.0 [facility] Comment on above: Performed By: #### P T, PTT, BMP, HFP, LD6, WSR, SEPG, MPASRM, KLFRS ####[address], [place] [phone] [place]/Cope,Free,Seron 2017 K/L Ratio, Serum 1.83 High 0.26-1.65 [facility] Comment on above: Performed By: #### P T, PTT, BMP, HFP, LD6, WSR, SEPG, MPASRM, KLFRS ####[address], [place] [phone] [place], Free, Serum 22.5 mg/L High 3.30-19.40 [facility] Comment on above: Result Comment: Rare ly, increased serum free light chains values may not be detected due to antigen excess phenomenon. Results should always be correlated with other laboratory results and clinical findings. Performed By: #### P T, PTT, BMP, HFP, LD6, WSR, SEPG, MPASRM, KLFRS ####[address], [place] [phone] Lambda, Free, Serum 12.3 mg/L Normal 5.7-26.3 [facility] Comment on above: Result Comment: Rare ly, increased serum free light chains values may not be detected due to antigen excess phenomenon. Results should always be correlated with other laboratory results and clinical findings. Performed By: #### P T, PTT, BMP, HFP, LD6, WSR, SEPG, MPASRM, KLFRS ####[facility] [place], [place] [phone] LDon 10-06-2017 LD 141 U/L Normal 135-214 [facility] Comment on above: Performed By: #### P T, PTT, BMP, HFP, LD6, WSR, SEPG, MPASRM, KLFRS ####[facility] [place], [place] [phone] Monoclonl Protein,Blon 10-06 MPA Interpretation SEE COMMENT Normal [facility] Comment on above: Result Comment: Atyp ical restricted bands are present in the IgG and lambda regions. Consistent with IgG lambda monoclonal gammopathy. Performed By: #### P T, PTT, BMP, HFP, LD6, WSR, SEPG, MPASRM, KLFRS ####[facility]ClevelLauren [place] [phone] MPA Parminder/Milner Ratio 2.12 Normal 1-3 [facility] Comment on above: Performed By: #### P T, PTT, BMP, HFP, LD6, WSR, SEPG, MPASRM, KLFRS ####[facility]ClevelandBryce [place] [phone] MPA Result M protein is present. Critically abnormal No M protein is identified. [facility] Comment on above: Performed By: #### P T, PTT, BMP, HFP, LD6, WSR, SEPG, MPASRM, KLFRS ####[place] [address] AveClevelLau[address] [place] [phone] [facility] Serum IgA 130 mg/dL Normal 78-391 [facility] Comment on above: Performed By: #### P T, PTT, BMP, HFP, LD6, WSR, SEPG, MPASRM, KLFRS ####[facility]ClevelLau[address] [place] [phone] [facility] Serum IgG 1450 mg/dL High 717-1411 [facility] Comment on above: Performed By: #### P T, PTT, BMP, HFP, LD6, WSR, SEPG, MPASRM, KLFRS ####[facility]ClevelandBryce [place] [phone] [facility] Serum IgM 123 mg/dL Normal 53-334 [facility] Comment on above: Performed By: #### P T, PTT, BMP, HFP, LD6, WSR, SEPG, MPASRM, KLFRS ####[facility] AveClevelLauren [place] [phone] Serum [place] 1260 mg/dL Normal 534-1267 [facility] Comment on above: Performed By: #### P T, PTT, BMP, HFP, LD6, WSR, SEPG, MPASRM, KLFRS ####[address] [place] [phone] Serum Lambda 595 mg/dL Normal 253-653 [facility] Comment on above: Performed By: #### P T, PTT, BMP, HFP, LD6, WSR, SEPG, MPASRM, KLFRS ####[place] [phone] Staff Review Reviewed by Delores Means MD ([id number]) Normal [facility] Comment on above: Performed By: #### P T, PTT, BMP, HFP, LD6, WSR, SEPG, MPASRM, KLFRS ####[place] [phone] Protein Electrophor.on 10-06 Albumin 3.93 g/dL Normal 3.37-4.23 [facility] Comment on above: Performed By: #### P T, PTT, BMP, HFP, LD6, WSR, SEPG, MPASRM, KLFRS ####[place] [phone] Alpha 1 Globulin 0.16 gm/dL Low 0.18-0.31 [facility] Comment on above: Performed By: #### P T, PTT, BMP, HFP, LD6, WSR, SEPG, MPASRM, KLFRS ####[address] [phone] Alpha 2 Globulin 0.80 gm/dL Normal 0.52-0.97 [facility] Comment on above: Performed By: #### P T, PTT, BMP, HFP, LD6, WSR, SEPG, MPASRM, KLFRS ####[address] [place] [phone] Beta Globulin 1.11 gm/dL Normal 0.84-1.36 [facility] Comment on above: Performed By: #### P T, PTT, BMP, HFP, LD6, WSR, SEPG, MPASRM, KLFRS ####[address] [phone] Gamma Globulin 1.49 gm/dL High 0.70-1.44 [facility] Comment on above: Performed By: #### P T, PTT, BMP, HFP, LD6, WSR, SEPG, MPASRM, KLFRS ####[address] [phone] Interpretation SEE COMMENT [facility] Comment on above: Result Comment: An M protein is identified on protein electrophoresis.See separate immunofixation report for characterization of the M protein.M protein is present on the background of a polyclonal immunoglobulin population. Quantitation of the M protein may overestimate the amount of M protein present. Performed By: #### P T, PTT, BMP, HFP, LD6, WSR, SEPG, MPASRM, KLFRS ####[address] [phone] M Protein Location Gamma fraction Normal [facility] Comment on above: Performed By: #### P T, PTT, BMP, HFP, LD6, WSR, SEPG, MPASRM, KLFRS ####[address] [phone] M Ja Concentratn 0.18 gm/dL High 0.00 [facility] Comment on above: Performed By: #### P T, PTT, BMP, HFP, LD6, WSR, SEPG, MPASRM, KLFRS ####[address] [phone] SPE Staff Review Reviewed by Delores Means [place] ([id number]) [facility] Comment on above: Performed By: #### P T, PTT, BMP, HFP, LD6, WSR, SEPG, MPASRM, KLFRS ####[facility] [place], [place] [phone] Total Protein, SPE 7.5 g/dL Normal 6.0-8.4 [facility] Comment on above: Performed By: #### P T, PTT, BMP, HFP, LD6, WSR, SEPG, MPASRM, KLFRS ####[facility] [place], [place] [phone] Protimeon 10-06-2017 INR Coag RelTime (Bld) 1.0 {INR} Normal 0.9-1.3 [facility] Comment on above: Result Comment: Muna min K Antagonist (VKA) Therapeutic Range: INR 2 to 3 (Target INR of 2.5)Note: For patients treated with VKA drugs, such as warfarin, the [place] [employer] 2012 Guideline recommends [...] of 3).Sunita GH, et al. Chest 2012, 141:7S-47SNishimura RA, et al. [facility] 2017, 70: 252-289 Performed By: #### P T, PTT, BMP, HFP, LD6, WSR, SEPG, MPASRM, KLFRS ####[place] [address] [place], [place] [phone] Performed By: #### V WFPN ####[facility] [place], [place] [phone] PT Sec 10.3 sec Normal 9.7-13.0 [facility] Comment on above: Performed By: #### P T, PTT, BMP, HFP, LD6, WSR, SEPG, MPASRM, KLFRS ####[place] [address] [place] [phone] Performed By: #### V WFPN ####[place] [address] [place] [phone] Remote CBCDIF (for [facility] use o nly)on 10-06-2017 Abs Baso 0.12 k/uL High <0.11 [facility] Comment on above: Performed By: #### R CBCDF ####[place] [address] [place] [phone] Abs [place] 0.85 k/uL Normal <0.87 [facility] Comment on above: Performed By: #### R CBCDF ####[place] [address] [place] [phone] Abs Neut 9.52 k/uL High 1.45-7.50 [facility] Comment on above: Performed By: #### R CBCDF ####[place] [address] [place] [phone] Basophils/100 WBC Auto (Bld) 0.9 % Normal [facility] Comment on above: Performed By: #### R CBCDF ####[place] [address] [place] [phone] DTYPE Auto Diff Normal [facility] Comment on above: Performed By: #### R CBCDF ####[place] [address] [place] [phone] Eosinophils 0.12 10*3/uL Normal <0.46 [facility] Comment on above: Performed By: #### R CBCDF ####[place] [address] [place] [phone] Eosinophils/100 leukocytes 0.9 % Normal [facility] Comment on above: Performed By: #### R CBCDF ####[place] [address], [place] [phone] Erythrocyte distribution width Auto Ratio (RBC) 13.8 % Normal 11.5-15.0 [facility] Comment on above: Performed By: #### R CBCDF ####[place] [address], [place] [phone] Erythrocytes (RBC) 10*6/uL Normal <0.01 [facility] Comment on above: Performed By: #### R CBCDF ####[place] [address], [place] [phone] Erythrocytes (RBC) 0.0 /100 WBC Normal 0 [facility] Comment on above: Performed By: #### R CBCDF ####[place] [address], [place] [phone] Erythrocytes (RBC) 4.46 10*6/uL Normal 3.90-5.20 [facility] Comment on above: Performed By: #### R CBCDF ####[place] [address] [place], [place] [phone] Hematocrit (HCT) 37.7 % Normal 36.0-46.0 [facility] Comment on above: Performed By: #### R CBCDF ####[place] [address], [place] [phone] Hemoglobin mass conc (Bld) 12.6 g/dL Normal 11.5-15.5 [facility] Comment on above: Performed By: #### R CBCDF ####[place] [address], [place] [phone] Lymphocytes 2.67 10*3/uL Normal 1.00-4.00 [facility] Comment on above: Performed By: #### R CBCDF ####[place] [address], [place] [phone] Lymphocytes/100 leukocytes 20.1 % Normal [facility] Comment on above: Performed By: #### R CBCDF ####[place] [address], [place] [phone] MCH 28.3 pG Normal 26.0-34.0 [facility] Comment on above: Performed By: #### R CBCDF ####[place] [address], [place] [phone] MCHC mass conc (RBC) 33.4 g/dL Normal 30.5-36.0 [facility] Comment on above: Performed By: #### R CBCDF ####[address] [phone] MCV 84.5 fL Normal 80.0-100.0 [facility] Comment on above: Performed By: #### R CBCDF ####[place] [address], [place] [phone] Monocytes/100 leukocytes 6.4 % Normal [facility] Comment on above: Performed By: #### R CBCDF ####[place] [address], [place] [phone] Neutrophils/100 WBC Auto (Bld) 71.7 % Normal [facility] Comment on above: Performed By: #### R CBCDF ####[address] [phone] Platelet mean volume (PMV) 10.0 fL Normal 9.0-12.7 [facility] Comment on above: Performed By: #### R CBCDF ####[address] [phone] Platelets 434 10*3/uL High 150-400 [facility] Comment on above: Performed By: #### R CBCDF ####[place] [address] [place], [place] [phone] WBC (Leukocytes) 13.28 10*3/uL High 3.70-11.00 [facility] Comment on above: Performed By: #### R CBCDF ####[address] [phone] Sed Rate Westergrenon 2017 Sed Rate Westergren 27 mm/hr High 0-20 [facility] Comment on above: Performed By: #### P T, PTT, BMP, HFP, LD6, WSR, SEPG, MPASRM, KLFRS ####[address] [phone] von Willebrand Diagon 2017 aPTT 26.7 s Normal 23.0-32.4 [facility] Comment on above: Result Comment: Unfr actionated [...] laboratory APTT reagent in use throughout the [facility]. Performed By: #### V WFPN ####[address] [phone] CBA/VWF Ratio 0.7 Normal >0.5 [facility] Comment on above: Performed By: #### V WFPN ####[address] [phone] COL/ADP Cartridge 127 CT (sec) High <118 [facility] Comment on above: Result Comment: Resu lts are reported as Closure Time (CT) in seconds. Performed By: #### V WFPN ####[address] [phone] COL/EPI Cartridge 117 CT (sec) Normal <199 [facility] Comment on above: Result Comment: Resu lts are reported as Closure Time (CT) in seconds. Performed By: #### V WFPN ####[place] [address] [place], [place] [phone] Collagen Binding-CBA 118 % Normal 41-161 [facility] Comment on above: Result Comment: This test uses a reagent or kit labeled by the floral arranger as research use only and it is used per floral arranger's instructions. Its performance characteristics were determined by [facility]'s [facility] [place] in a manner consistent with CLIA requirements. This test has not been cleared by the U.S. Food and Drug Administration. Performed By: #### V WFPN ####[address] [phone] Factor VIII:C Assay 165 % Normal 50-173 [facility] Comment on above: Performed By: #### V WFMARLEE ####[address] [phone] FVIII/VWF Ratio 1.0 Normal >0.4 [facility] Comment on above: Performed By: #### V WFPN ####[address] [phone] Interpretation(VW) (NOTE) Normal [facility] Comment on above: Result Comment: Perf [...] findingsand medication history. Performed By: #### V WFPN ####[place] [phone] Ristocetin Aggreg Normal dose response Normal [facility] Comment on above: Performed By: #### V WFPN ####[address] [phone] Ristocetin Co-Factor 150 % High 42-146 [facility] Comment on above: Performed By: #### V WFPN ####[address] [phone] Ristocetin/VWF Ratio 0.9 Normal >0.4 [facility] Comment on above: Performed By: #### V WFPN ####[address] [phone] von Willebrand Ag 159 % Normal 50-173 [facility] Comment on above: Performed By: #### V WFPN ####[address] [phone] von Willebrand Mult Normal multimer amou nt and pattern. Normal [facility] Comment on above: Result Comment: Revi ewed by Joleen Shore M.D.,Ph.D ([id number])This test was developed and its performance characteristics determined by [facility]'s Blayne Barrera [facility] [place] ([facility]).It has not been cleared or approved by the FDA. RT-PLDE is regulated under CLIA as qualified to perform high-complexity testing.This test is used for clinical purposes. It should not be regarded as investigational or for research. Performed By: #### V [facility] ####[facility] [address] [place], [place] [phone] CNOVon 09-25-2017 CNOV Office Visit (CARDFT) -------GLADIS MICHAEL ([id number]) 1975 [facility] Time Provider Department09/25/17 10:30 AM JESUS CHEATHAM During your visit today, we recorded the following information about you: Pulse Respiration Blood pressure Weight 68/minute 18/minute 139/78 108 kg Height 1.575 Rishi Cheatham MD 09/25/2017 10:54 AM [facility] Department of Cardiovascular MedicineOUTPATIENT VISIT DATE 09/25/16OUTPATIENT VISIT TYPEESTABLISHEDPRIMARY CARE PHYSIC[place] [address]Yvnkd: [phone]: [phone] COMPLAINT:Patient presents with:Follow UpHISTORY OF PRESENT ILLNESS:Gladis Michael is a 41 year old female with a past cardiac history ofpalpitations, hypertensive episodes associated with flushing.05/22/2017The patient presents today as a new consult. The patient has previously beencared for by a review trainer in [place]. She has been on pindolol andlisinopril for [...] years. She had a complete workup in [facility] including a cardiac CTA, pharmacologic stress, echo and monitors. Unfortunately I do not have any of those records to review. The patient wasseen in the emergency room earlier today for epistaxis. She also was seen inthe emergency room in [place] last Friday with a complaint of dizziness. [...] kg (238 lb) SpO2 100% BMI 43.53 kg/v0Swfclsc: Well appearing, in no acute distress.Eyes: Conjunctiva [...] for years. Patient had negative workup in [place]. Placed onpindolol and lisinopril.4. Non-rheumatic mitral regurgitation, [...] provided to the requesting physician by [facility] or to the requesting physician via U.S. Mail.This document was generated utilizing ELERT[employer]ation. I have reviewed andverified that the contents of the document are accurate with the exception ofminor grammatical, spelling and punctuation errors.CONTACT INFORMATION:Thank you for allowing us to participate in the care of this very pleasantpatient. Please free to contact us if we can be of any further assistance.Jesus Cheatham MD, [facility] of Cardiovascular MedicineHeart and Vascular InstituteDetwiler Memorial Hospital[address], [place] [address]Eihpgi: [phone] Referring Provider: JOSEPH HARRIS [[id number]]Allergies As of Date: 09/25/2017 Noted Allergy ReactionTOPROL XL (METOPROLOL) 04/11/2016 14 - Other: See Comments Comments: heart races per patientDate Reviewed: 09/25/2017Reviewed by: Jesus Cheatham - Fully AssessedReason for Visit: Follow Up [171]Primary Visit Diagnosis:Essential hypertension [I10] Other Visit Diagnoses:Premature atrial complexes [I49.1] PVC (premature ventricular contraction) [I49.3] Obesity, Class III, BMI 40-49.9 (morbid obesity) ([facility]) [E66.01]Order(s):lisinopril (ZESTRIL, PRINIVIL) 5 mg tabletTake 1 [...] RN 09/25/2017 10:15 AM >> JEROME BYRNES [facility] Sep 25, 2017 10:15 AM Received from: External Pharmacy >> Shane Velasquez RN 09/25/2017 10:16 AM >> JEROME BYRNES [facility] Sep 25, 2017 10:16 AMProblem List As [...] Status:Closed by NANI CHEATHAM MD on 09/25/17 [facility] PROGRESSon 09-25-2017 PROGRESS HNO ID: [id number] thor: Jesus Petersonervice: (none)Author Type: PhysicianType: Progress NotesFiled: 09/25/2017 10:54 AMNote Text:[facility] V[facility] InstituteB[facility] Department of Cardiovascular MedicineOUTPATIENT VISIT DATE 09/25/16OUTPATIENT VISIT TYPEESTABLISHEDPRNOVANT HEALTH PRESBY[facility] MEDICAL CENTERRY CARE PHYSICIAN:Joseph Harris, [address] [facility] [address]Wjbab: [phone]: [phone] COMPLAINT:Patient presents with:Follow UpHISTORY OF PRESENT ILLNESS:Gladis Michael is a 41 year old female with a past cardiac history ofpalpitations, hypertensive episodes associated with flushing.05/22/2017The patient presents today as a new consult. The patient has previouslybeen cared for by a review trainer in [place]. She has been on pindolol andlisinopril for many years. She apparently did not tolerate metoprolol inthe past. She claims that metoprolol made her heart rate go into [id number]. The patient states that she has episodes off and on of a flushedfeeling followed by high blood pressure readings and dizziness. She alsofeels her heart racing. She feels this has been worse over the past 2weeks. She has had episodes like this though for many years. [facility] including a cardiac CTA,pharmacologic stress, echo and monitors. Unfortunately I do not have anyof those records to review. The patient was seen in the emergency roomearlier today for epistaxis. [place]. Her workup wasnegative. There was no evidence of any arrhythmia during her workup hereat this emergency room today. Her blood tests were within normal limits.Her troponin was normal. EKG was unremarkable. The patient admits thatshe gets very anxious. She has had problems with this for some time. [facility] has started her on Zoloft. [...] kg (238 lb) SpO2 100% BMI 43.53 kg/i5Eacvkxf: Well appearing, in no acute distress.Eyes: Conjunctiva [...] for years. Patient had negative workup in [place]. Placedon pindolol and lisinopril.4. Non-rheumatic mitral regurgitation, [...] provided to the requesting physician by [facility] or to the requesting physician via U.S. Mail.This document was generated utilizing Tube2Toneon dictation. I have reviewedand verified that the contents of the document are accurate with theexception of minor grammatical, spelling and punctuation errors.CONTACT INFORMATION:Thank you for allowing us to participate in the care of this very pleasantpatient. Please free to contact us if we can be of any furtherassistance.Jesus Cheatham MD, FACCRireland army community hospitalt and Mary MurraySaint Cabrini Hospitallarissa of Cardiovascular MedicineWyandot Memorial Hospitalrt and Vascular InstituteDetwiler Memorial Hospital[address], [place] [address]Tpmsyt: [phone] [facility] [address]-CT Head or Brain w/o Cont rast IMPORTon 09-23-2017 CT-CT Head or Brain w/o Contrast IMPORT Images were obtained outside of [facility] [id number] [facility] CNOVSPon 06-05-2017 CNOVSP Visit (SP) Office (HE[place]) -------GLADIS MICHAEL ([id number]) 1975 FDate Time Provider Wxtievxeih17/28/17 3:15 PM ISAAC SHELTON During your visit today, we recorded the following information about you: Temperature Respiration Blood pressure Weight 98.7 degrees 18/minute 168/82 105.1 kg Height 1.6 NEvalorie Shelton DO 06/07/2017 12:55 AM SignedPATIENT NAME: Gladis PatelarMRN: [id number] PHYSICIAN: Joseph Harris DO[address] [address]ETQTGNS CARE PHYSICIAN: MASOOD Rubin PHYSICIANS:CHIEF COMPLAINT: Lymphocytosis [...] r nose and throat evaluation likely from [facility] main campus physician . We will continue [...] for5 days straight. Went to ER 02/26. [place] was negative, strep negative. Flunegative. She was [...] racing heart and elevated BP.She previously saw review trainer in [place].She is scheduled for echo. She has valvular issues [place]. Cough, sore throat [...] plan. I answered allquestions satisfactorily..Hai Shelton D.O.Medical OncologistNoCanton, [place]Referring Provider: ISAAC SHELTON [[id number]]Allergies As of Date: 06/05/2017 Noted Allergy ReactionTOPROL XL (METOPROLOL) 04/11/2016 14 - Other: See Comments Comments: heart races per patientDate Reviewed: 06/05/2017Reviewed by: Donna Stahl - Fully AssessedReason for Visit: Lymphocytosis [Other] Cmt: 5 week follow upPrimary Visit Diagnosis:Lymphocytosis [D72.820] Other Visit Diagnosis:Cervical adenopathy [R59.0]Order(s):HIV 1,2 COMBO (AG/AB) [SQHIV12] Order #: [id number] FUTUREDisposition: Return in about 1 year (around 06/05/2018), or cancel ENT f/u in [place]..Follow-up and Disposition History RecordedPrescriptions as of 06/05/2017 [...] by ISAAC SHELTON DO on 06/07/17 [facility] HIV 12 Combo (Ag/Ab)on 06-05 HIV 12 Ag/Ab Non Reactive Normal Non Reactive [facility] Comment on above: Result Comment: (NOT E)HIV Information: [place] Rev. Code 3701.243(E):This information has been disclosed [...] or diagnoses. Performed By: #### H IV12C ####[facility] [address] [place], [place] [phone] PROGRESSon 06-05-2017 PROGRESS HNO ID: [id number] thor: Isaac Carrasco: (none)Author Type: PhysicianType: Progress NotesFiled: 06/07/2017 12:55 AMNote Text:PATIENT NAME: Gladis PatelarMRN: [id number] PHYSICIAN: Joseph Harris DO[address] [facility] [address]YHPEBFP CARE PHYSICIAN: Joseph Harris DOOTHER PHYSICIANS:CHIEF COMPLAINT: [...] r nose and throat evaluation likely from [facility] main campus physicianDr. HERNANDEZ. We will [...] for5 days straight. Went to ER 02/26. [place] was negative, strep negative.Flu negative. She was [...] and racing heart and elevatedBP.She previously saw review trainer in [place].She is scheduled for echo. She has valvular issues and was getting themyearly in [place] prior to moving here. Cough, sore throat [...] Used- Alcohol use NoLABS:RADIOLOGY/OTHER STUDIES:COUNSELING:I discussed with lGadis the natural history, treated course, andprognosis of Lymphocytosis (primary encounter diagnosis)Cervical adenopathy; my impression as well as the rationale, logistics,risks, benefits, and alternatives to the management options noted above;and my recommendations listed below. The patient Gldais Michaelverbalized understanding and agreed with these recommendations and plan.I answered all questions satisfactorily..Hai Shelton D.O.Medical OncologistMarble Canyon, [place] [facility] Remote Abs Gran + CBC (for F HC use only)on 06-05-2017 Absol Gran Count 10.28 k/uL High 1.45-7.50 [facility] Erythrocyte distribution width Auto Ratio (RBC) 13.9 % Normal 11.5-15.0 [facility] Erythrocytes (RBC) 4.91 10*6/uL Normal 3.90-5.20 [facility] Hematocrit (HCT) 39.7 % Normal 36.0-46.0 [facility] Hemoglobin mass conc (Bld) 13.2 g/dL Normal 11.5-15.5 [facility] MCH 26.9 pG Normal 26.0-34.0 [facility] MCHC mass conc (RBC) 33.2 g/dL Normal 30.5-36.0 [facility] MCV 80.9 fL Normal 80.0-100.0 [facility] Platelet mean volume (PMV) 9.5 fL Normal 9.0-12.7 [facility] Platelets 497 10*3/uL High 150-400 [facility] WBC (Leukocytes) 14.20 10*3/uL High 3.70-11.00 [facility] CNOVon 05-22-2017 CNOV Office Visit (CARDFT) -------GLADIS MICHAEL ([id number]) 1975 [facility] Time Provider Mrszawrsne57/14/17 2:00 PM JESUS CHEATHAM During your visit today, we recorded the following information about you: Pulse Respiration Blood pressure Weight 69/minute 18/minute 139/77 101.6 kg Height 1.6 Rishi Cheatham MD 05/22/2017 3:15 PM [facility] and Vascular InstituteBrockwell and Mary Hare Department of Cardiovascular MedicineOUTPATIENT VISIT DATE 05/22/17OUTPATIENT VISIT TYPENEWPRBAPTIST [facility] PHYSICIAN:Joseph Harris, DO[address] [facility] [address]Sbkcs: [phone]: [phone] COMPLAINT:Patient presents with:PalpitationsHISTORY OF PRESENT ILLNESS:Gladis Michael is a 41 year old female with a past cardiac history ofpalpitations, hypertensive episodes associated with flushing.The patient presents today as a new consult. The patient has previously beencared for by a review trainer in [place]. She has been on pindolol andlisinopril for many years. [facility] She claims that metoprolol made her heart rate go into the 200s. Thepatient states that she has episodes off and on of a flushed feeling followedby high blood pressure readings and dizziness. She also feels her heartracing. She feels this has been worse over the past 2 weeks. She has hadepisodes like this though for many years. She had a complete workup in [facility] including a cardiac CTA, pharmacologic stress, echo and monitors. Unfortunately I do not have any of those records to review. The patient wasseen in the emergency room earlier today for epistaxis. She also was seen int emergency room in [place] last Jhon with a complaint of dizziness. Herworkup was [...] kg (224 lb) SpO2 98% BMI 39.68 kg/m3Lakiixw: Well appearing, in no acute distress.Eyes: Conjunctiva [...] for years. Patient had negative workup in [place]. Placed onpindolol and lisinopril.4. Non-rheumatic mitral regurgitation, [...] via U.S. Mail.This document was generated utilizing AppNexus dictation. I have reviewed andverified that the contents of the document are accurate with the exception ofminor grammatical, spelling and punctuation errors.CONTACT INFORMATION:Thank you for allowing us to participate in the care of this very pleasantpatient. Please free to contact us if we can be of any further assistance.Jesus Cheatham MD, [facility] and [facility] HareNorthwest Medical Center of Cardiovascular MedicineWyandot Memorial Hospitalrt and Vascular InstituteCharles Ville [address] [place], [place] [address]Hdwmmq: [phone] Referring Provider: ISAAC SHELTON [[id number]]Allergies As of Date: 05/22/2017 Noted Allergy ReactionTOPROL XL (METOPROLOL) 04/11/2016 14 - Other: See Comments Comments: heart races per patientDate Reviewed: 05/22/2017Reviewed by: Jesus Cheatham - Fully AssessedReason for Visit: Palpitations [79]Primary Visit Diagnosis:Premature atrial complexes [I49.1] Other Visit Diagnoses:PVC (premature ventricular contraction) [I49.3] Palpitations [R00.2] Non-rheumatic mitral regurgitation, mild [I34.0]Order(s):ECHO [[id number]] Order #: [id number]: 1 FUTUREPrescriptions as of 05/22/2017 Sig: PINDOLOL [...] by NANI CHEATHAM MD on 05/22/17 [facility] PROGRESSon 05-22-2017 PROGRESS HNO ID: [id number] thor: Jesus EllisyService: (none)Author Type: PhysicianType: Progress NotesFiled: 05/22/2017 3:15 PMNote Text:Heart and Vascular [facility]orial Hospitalcandida and Mary Murray Department of Cardiovascular MedicineOUTPATIENT VISIT DATE 05/22/17OUTPATIENT VISIT TYPENEWPRHIGHL[facility] PHYSICIAN:Joseph Harris, DO[address] [place] [address]Cnlbk: [phone]: [phone] COMPLAINT:Patient presents with:PalpitationsHISTORY OF PRESENT ILLNESS:Gladis Michael is a 41 year old female with a past cardiac history ofpalpitations, hypertensive episodes associated with flushing.The patient presents today as a new consult. The patient has previouslybeen cared for by a review trainer in [place]. She has been on pindolol andlisinopril for many years. She apparently did not tolerate metoprolol inthe past. She claims that metoprolol made her heart rate go into wrk648a. The patient states that she has episodes off and on of a flushedfeeling followed by high blood pressure readings and dizziness. She alsofeels her heart racing. She feels this has been worse over the past 2weeks. She has had episodes like this though for many years. [facility] including a cardiac CTA,pharmacologic stress, echo and monitors. Unfortunately I do not have anyof those records to review. The patient was seen in the emergency roomearer today for epistaxis. [place] of [place]. Her workup wasnegative. There was no evidence of any arrhythmia during her workup hereat this emergency room today. Her blood tests were within normal limits.Her troponin was normal. EKG was unremarkable. The patient admits thatshe gets very anxious. She has had problems with this for some time. [facility] has [facility] her on Z[facility]ft. [...] kg (224 lb) SpO2 98% BMI 39.68 kg/f1Sdgffpg: Well appearing, in no acute distress.Eyes: Conjunctiva [...] for years. Patient had negative workup in [place]. Placedon pindolol and lisinopril.4. Non-rheumatic mitral regurgitation, [...] physicianvia U.S. Mail.This document was generated utilizing AppNexus dictation. I have reviewedand verified that the contents of the document are accurate with theexception of minor grammatical, spelling and punctuation errors.CONTACT INFORMATION:Thank you for allowing us to participate in the care of this very pleasantpatient. Please free to contact us if we can be of any furtherassistance.Jesus Cheatham MD, FACCRobert and Mary MurrayDepartment of Cardiovascular MedicineHeart and Vascular InstituteCharles Ville [address] [facility].[place], [place] [address]Bfqgnn: [phone] [facility] CNOVSPon 04-28-2017 CNOVSP Visit (SP) Office (HE[place]) -------GLADIS MICHAEL ([id number]) 1975 FDate Time Provider Kwqtzpzxqs13/20/17 11:15 AM ISAAC SHELTON During your visit today, we recorded the following information about you: Temperature Pulse Respiration Blood pressure 98.7 degrees 71/minute 18/minute 151/101 Weight Height 103.2 kg 1.6 Kassidy Shelton DO 05/03/2017 3:18 PM SignedPATIENT NAME: Gladis ElderRN: [id number] PHYSICIAN: Joseph Harris DO[address] [place] [address]WLCLALD CARE PHYSICIAN: Joseph Harris DOOTHER PHYSICIANS:CHIEF COMPLAINT: [...] r nose and throat evaluation likely from [facility] main campus physician . We will continue [...] (around 05/28/2017), or scans in may and /. ct neck and chest., for make f/u [...] for5 days straight. Went to ER 02/26. [place] was negative, strep negative. Flunegative. She was [...] I answered all questions satisfactorily..Hai Shelton D.O.Medical OncologistMarble Canyon, [place]Referring Provider: ISAAC SHELTON [[id number]]Allergies As of Date: 04/28/2017 Noted Allergy ReactionTOPROL XL (METOPROLOL) 04/11/2016 14 - Other: See Comments Comments: heart races per patientDate Reviewed: 04/28/2017Reviewed by: Josephine Moscoso - Fully AssessedReason for Visit: Lymphocytosis [Other] Cmt: 3 week follow upPrimary Visit Diagnosis:Lymphocytosis [D72.820]Order(s):CT CHEST WO IVCON [[id number]] Order #: [id number] FUTURE CT CHEST W IVCON [[id number]] Order #: [id number] FUTURE iv contrast (radiology procedure)CT Chest W [...] [address] CT NECK SOFT TISSUE W IVCON [[id number]] Order #: [id number] FUTURE [] iv contrast (radiology procedure)Inject 1 [...] Status:Closed by ISAAC SHELTON DO on 05/03/17 [facility] PROGRESSon 04-28-2017 PROGRESS HNO ID: [id number] thor: Isaac SheltonService: (none)Author Type: PhysicianType: Progress NotesFiled: 05/03/2017 3:18 PMNote Text:PATIENT NAME: Galdis PatelarMRN: [id number] PHYSICIAN: Joseph Harris DO[address] [facility] [address]KSMOZBU CARE PHYSICIAN: Joseph Harris DOOTHER PHYSICIANS:CHIEF COMPLAINT: [...] for5 days straight. Went to ER 02/26. [place] was negative, strep negative.Flu negative. She was [...] I answered all questions satisfactorily..Hai Shelton D.O.Medical OncologistOzarks Community Hospital Remote Abs Gran + CBC (for F HC use only)on 04-28-2017 Absol Gran Count 7.86 k/uL High 1.45-7.50 [facility] Erythrocyte distribution width Auto Ratio (RBC) 13.9 % Normal 11.5-15.0 [facility] Erythrocytes (RBC) 4.82 10*6/uL Normal 3.90-5.[address] Hematocrit (HCT) 39.2 % Normal 36.0-46.0 [facility] Hemoglobin mass conc (Bld) 13.3 g/dL Normal 11.5-15.5 [facility] MCH 27.6 pG Normal 26.0-34.0 [facility] MCHC mass conc (RBC) 33.9 g/dL Normal 30.5-36.0 [facility] MCV 81.3 fL Normal 80.0-100.0 [facility] Platelet mean volume (PMV) 9.4 fL Normal 9.0-12.7 [facility] Platelets 470 10*3/uL High 150-400 [facility] WBC (Leukocytes) 11.76 10*3/uL High 3.70-11.00 [facility] CNOVon 04-10-2017 CNOV Office Visit (OTOLMN) -------GLADIS MICHAEL ([id number]) 1975 [facility] Time Provider Kwgnzfhhyo93/2/17 10:00 AM CANDIS HERNANDEZ OTOLMN During your visit today, we recorded the following information about you: Blood pressure Weight Height 142/85 97.5 kg 1.6 Akila Montero Ma 04/10/2017 10:01 AM SignedTobacco Use: QuitWas smoking cessation packet given? N/A - Patient is a non-smoker or quit ANDgt;1year ago.Was a referral initiated?N/A Patient is a non-smokerJamie Ku, MD 04/16/2017 1:04 PM SignedGladis [id number] 2, 2017Oto-HNS ConsultationReferring Physician: Dr. Isaac Winston [...] further evaluated viaultrasound if clinically indicated.LabsCBCRecent Labs [id number] 13.32*HB 13.4HCT 40.2PLT 470*BMPInvalid input(s): PHOSCOAGsPHYSICAL EXAM:Vitals - BP 142/85 (BP Site: Left Arm, BP Position: Sitting, BP Cuff Size:Extra Large Adult) Ht 160 cm (5' 3ANDquot;) Wt 97.5 kg (215 lb) SpO2 98% BMI 38.09 kg/y2Nbklcplfiwvqsu - General Appearance: well developed, well nourished, [...] Theprocedure was performed by Dr. Cole / Ruel Cole MDFor the service of Dr. Lynn [...] 1 Each; Refill: 0SIGNATURE: Candis Hernandez, MDPAGER: [id number] of SERVICE: April 16, 2017TIME of SERVICE: [...] disease) [K21.9]Order(s):POLYSOMNOGR AM (PSG)/HOME SLEEP TEST (HST) [[id number]] Order #: [id number] FUTURE omeprazole (PRILOSEC) 20 mg capsuleTake 1 capsule by mouth once daily for 30 days.Disp: 30 capsuleRfl: 0 CT NECK SOFT TISSUE W IVCON [[id number]] Order #: [id number] FUTURE [] iv contrast (radiology procedure)Inject 1 [...] encounter ONDANSETRON HCL 8 MG TABLET >> Elham Montero Ma 04/10/2017 10:01 AM >> ANGKAMILA BARRON JCHENRIETTA Celeste [facility] Apr 10, 2017 10:01 AM Not takingProblem List As Of Date 04/10/2017 Noted Resolved Lymphocytosis [D72.820] INVALID FOR* Cervical adenopathy [R59.0] INVALID FOR*Visit Notes:>> Elham Montero Ma Meredith Apr 10, 2017 10:01 AM Status: SignedTobacco Use: Fleck smoking cessation packet given? N/A - Patient [...] guidelines link.Follow-up and Disposition History RecordedEncounter Number: [id number] Status:Closed by CANDIS HERNANDEZ MD on 04/16/17 [facility] PROGRESSon 04-10-2017 PROGRESS HNO ID: [id number] thor: Candis Salinas: (none)Author Type: PhysicianType: Progress NotesFiled: 04/16/2017 1:04 PMNote Text:Gladis [id number] 2016Oto-HNS ConsultationReferring Physician: Dr. Isaac Winston for Consult: [...] further evaluated viaultrasound if clinically indicated.LabsCBCRecent Labs 04/07/142587VKN 13.32*HB 13.4HCT 40.2PLT 470*BMPInvalid input(s): PHOSCOAGsPHYSICAL EXAM:Vitals - BP 142/85 (BP Site: Left Arm, BP Position: Sitting, BP Cuff Size:Extra Large Adult) Ht 160 cm (5' 3 ) Wt 97.5 kg (215 lb) SpO2 98% BMI 38.09 kg/q0Ehpokmvvitsvuo - General Appearance: well developed, well nourished, [...] the clinical encounter as documented above by theresidentfellow. Dr. Cole and have reviewed the note [...] guidelines link. Dispense: 1Each; Refill: 0SIGNATURE: Candis David, MDPAGER: [id number] of SERVICE: April 16, 2017TIME of SERVICE: 1:01 PM [facility] CNOVSPon 04-07-2017 CNOVSP Visit (SP) Office (HEMASA) -------GLADIS MICHAEL ([id number]) 1975 FDate Time Provider Ejiczvweov41/30/17 1:45 PM ISAAC SHELTON During your visit today, we recorded the following information about you: Temperature Pulse Respiration Blood pressure 98.5 degrees 75/minute 18/minute 156/106 Weight Height 102.2 kg 1.6 Kassidy Shelton DO 04/11/2017 10:43 AM SignedPATIENT NAME: Gladis ElderRN: [id number] PHYSICIAN: MICHAEL Rubin[address] [facility] [address]IAKOPDP CARE PHYSICIAN: Joseph Harris DOOTHER PHYSICIANS:CHIEF COMPLAINT: [...] on 04/07/17. Return in about 2 weeks (seimpb0304/21/2017), or f/u 2 wks.. HPI: This is [...] for5 days straight. Went to ER 02/26. [place] was negative, strep negative. Flunegative. She was [...] I answered all questions satisfactorily..Hai Shelton D.O.Medical OncologistMarble Canyon, [place]Referring Provider: ISAAC SHELTON [[id number]]Allergies As of Date: 04/07/2017 Noted Allergy ReactionTOPROL [...] by ISAAC SHELTON DO on 04/11/17 [facility] LDon 04-07-2017 LD 212 U/L Normal 135-214 [facility] Comment on above: Performed By: #### L D6 ####[facility] [address] [place], [place] [phone] PROGRESSon 04-07-2017 PROGRESS HNO ID: [id number] thor: Isaac Rodrigue Carrasco: (none)Author Type: PhysicianType: Progress NotesFiled: 04/11/2017 10:43 AMNote Text:PATIENT NAME: Gladis ElderRN: [id number] PHYSICIAN: Joseph Harris DO[address] [facility] [address]NKMHLIG CARE PHYSICIAN: MASOOD Rubin PHYSICIANS:CHIEF COMPLAINT: Lymphocytosis [...] throat. She was given augmentin by Dr. Joes. Fever for5 days straight. Went to ER 02/26. [place] was negative, strep negative.Flu negative. She was [...] I answered all questions satisfactorily..Hai Shelton D.O.Medical OncologistGarfield County Public Hospital Cancer [facility] 03-27-2017 CNCO Letter TextNorth Long Beach Doctors Hospitaly[address] [place], [place] [address]Awdlk: [phone]: [place] [place] [address] [place], [place] [address]Wwgxd: [phone]: [facility] Centerk[address] [place], [place] [address]Ewcuy: [phone]: Toll Free: [phone] [email or web address] Nick WilliamsonD., Carlos Gleason M.D.Luiz Berrios M.D.Isaac Shelton D.O..Denisha Ruiz M.D.Heather Hollingsworth M.D. Julito Salguero M.D.March 27, 2017Gladis Michael[address] [facility] [address]Kyhb Ms. Michael,You missed your scheduled appointment on 03/27/17. Please call our officeto reschedule. If you need to cancel any future appointments, please call togive us 24 hour notice so that we can offer your appointment to anotherpatient.Sincerely,Tulio Au M.D. [facility] CT ABD/PEL W IVCONon -11-[address] ABD/PEL W IVCON * * *Final Report* * *DATE OF EXAM: Mar 19 2017 9:29AM [facility] 0530 - CT ABD/PEL W IVCON / [...] any questions regarding this interpretation, please call [phone].If you are unable to reach us at the number above,please feel free to contact [facility] eRadiology at [phone]_ IDCSIACN [facility] CT CHEST W IVCONon 7 CT CHEST W IVCON * * *Final Report* * *DATE OF EXAM: Mar 19 2017 9:29AM [facility] 0539 - CT CHEST W IVCON / [...] any questions regarding this interpretation, please call [phone].If you are unable to reach us at the number above,please feel free to contact [facility] eRadiology at [phone]_ IDCSIACN [facility] CT NECK SOFT TISSUE W IVCONo n 03-19-2017 CT NECK SOFT TISSUE W IVCON * * *Final Report* * *DATE OF EXAM: Mar 19 2017 9:28AM [facility] 0013 - CT NECK SOFT TISSUE W [...] parapharyngeal space: Fat and muscle planes are normal.Manager [employer] space: Visualized mandible, muscles of mastication, pterygopalatine [...] any questions regarding this interpretation, please call [phone].If you are unable to reach us at the number above,please feel free to contact [facility] eRadiology at [phone]_ IDCSIACN [facility] PROGRESSon 03-19-2017 PROGRESS HNO ID: [id number] thor: Sheri Banegas CnmtService: (none)Author Type: (none)Type: Progress NotesFiled: 03/19/2017 9:32 AMNote Text: RADIOLOGY SERVICE PROGRESS NOTESERVICE DATE: 03/19/2017SERVICE TIME: 8:33 AMPATIENT IDENTITY VERIFICATION COMPLETED USING TWO (2) METHODS: Patientconfirmed name and Date of verbally.PATIENT GENDER DATA: .femaleALLERGIES: Reviewed and unchangedMEDICATIONS REVIEWED: Not applicablePATIENT RELEVANT IMPLANT DATA REVIEWED: Not ApplicableCREATININE:Creati nineDate Value Ref Range Vzrybb4103/14/2017 0.59 0.58 - 0.96 mg/dL Final04/11/2016 0.56 (L) 0.58 - 0.96 mg/dL Final eGFR-All Other RacesDate Value Ref Range Smomcj2603/14/2017 >60 . FinalComment:eGFR (Estimated GFR) Units of [...] actual GFR. eGFR- AmericanDate Value Ref Range Mbafdt9703/14/2017 >60 Final Reference range (age 0-9 years) [...] CT Neck/Chest/Abdomen and Pelvis with contrastADMINISTRATION TIME: 906PATIENT DISCHARGED TO: Ambulatory patient, left [place] department area.A Diagnostic radioactive procedure has taken place, with no furtherprecautions necessary other than routine body substance precautions. Moreinformation regarding radiation safety can be found using this link:[email or web address]% 20-%20Diagnostic%20Nuclear% 20Medicine%20Procedures.pdf SIGNATURE: Sheri Banegas [facility] PATIENT NAME: Gladis WaltersATE: March 19, 2017 : 8:33 AM PAGER/CONTACT #: [facility] Comp Metabolic Panelon 03-14 Alanine aminotransferase (ALT) 25 U/L Normal 7-38 [facility] Comment on above: Performed By: #### R ETIC, HREMOP, CMP, TSH, KLFRS, MPASRM, SEPG ####[facility]CJuan [place] [phone] Albumin 4.5 g/dL Normal 3.9-4.9 [facility] Comment on above: Performed By: #### R ETIC, HREMOP, CMP, TSH, KLFRS, MPASRM, SEPG ####[phone] Alkaline phosphatase (ALP) 60 U/L Normal 32-117 [facility] Comment on above: Performed By: #### R ETIC, HREMOP, CMP, TSH, KLFRS, MPASRM, SEPG ####[place] [address] AveCKimberly [place] [phone] Anion gap 14 mmol/L Normal 9-18 [facility] Comment on above: Performed By: #### R ETIC, HREMOP, CMP, TSH, KLFRS, MPASRM, SEPG ####[facility] AveCKimberly Ville [phone] Aspartate aminotransferase (AST) 18 U/L Normal 13-35 [facility] Comment on above: Performed By: #### R ETIC, HREMOP, CMP, TSH, KLFRS, MPASRM, SEPG ####[place] [address] [address]CKimberly [place] [phone] Bilirubin (total) 0.7 mg/dL Normal 0.2-1.3 [facility] Comment on above: Performed By: #### R ETIC, HREMOP, CMP, TSH, KLFRS, MPASRM, SEPG ####[place] [address]CJ[address] [place] [phone] Calcium 9.5 mg/dL Normal 8.5-10.2 [facility] Comment on above: Performed By: #### R ETIC, HREMOP, CMP, TSH, KLFRS, MPASRM, SEPG ####[facility] [address] AveCPollock, [place] [phone] Chloride 97 mmol/L Normal 97-105 [facility] Comment on above: Performed By: #### R ETIC, HREMOP, CMP, TSH, KLFRS, MPASRM, SEPG ####[facility]ClevelLauren Ville [phone] CO2 25 mmol/L Normal 22-30 [facility] Comment on above: Performed By: #### R ETIC, HREMOP, CMP, TSH, KLFRS, MPASRM, SEPG ####[facility] [place] [phone] Creatinine 0.59 mg/dL Normal 0.58-0.96 [facility] Comment on above: Performed By: #### R ETIC, HREMOP, CMP, TSH, KLFRS, MPASRM, SEPG ####[facility]CPoll[address], [place] [phone] eGFR (non-black) mL/min/{1.73_m2} Normal [facility] Comment on above: Result Comment: eGFR [...] ETIC, HREMOP, CMP, TSH, KLFRS, MPASRM, SEPG ####[facility]CP[address], [place] [phone] Glucose mass conc 126 mg/dL High 74-99 [facility] Comment on above: Result Comment: The [place] Diabetes Association (ADA) provides guidance for cutoff [...] Standards of Medical Care in Diabetes 2016, [place] [employer]. Diabetes Care. 2016.39(Suppl 1). Performed By: #### R ETIC, HREMOP, CMP, TSH, KLFRS, MPASRM, SEPG ####[facility] [place] [phone] Potassium molar conc 4.3 mmol/L Normal 3.7-5.1 [facility] Comment on above: Performed By: #### R ETIC, HREMOP, CMP, TSH, KLFRS, MPASRM, SEPG ####[facility] AvBlake [place] [phone] Protein 8.4 g/dL High 6.3-8.0 [facility] Comment on above: Performed By: #### R ETIC, HREMOP, CMP, TSH, KLFRS, MPASRM, SEPG ####[facility] AvBlake [place] [phone] Sodium 136 mmol/L Normal 136-144 [facility] Comment on above: Performed By: #### R ETIC, HREMOP, CMP, TSH, KLFRS, MPASRM, SEPG ####[facility]Bl[address] [place] [phone] Urea nitrogen 10 mg/dL Normal 7-21 [facility] Comment on above: Performed By: #### R ETIC, HREMOP, CMP, TSH, KLFRS, MPASRM, SEPG ####[facility]CJ[address] [place] [phone] Hepatitis Remote Panelon BSA (Body Surface Area) Negative Normal Negative [facility] Comment on above: Performed By: #### R ETIC, HREMOP, CMP, TSH, KLFRS, MPASRM, SEPG ####[facility]CJ[address] [place] [phone] Hep B Core Ab,Total Negative Normal Negative [facility] Comment on above: Performed By: #### R ETIC, HREMOP, CMP, TSH, KLFRS, MPASRM, SEPG ####[facility]CJ[address] [place] [phone] Hepatitis C Ab IA Negative Normal Negative [facility] Comment on above: Performed By: #### R ETIC, HREMOP, CMP, TSH, KLFRS, MPASRM, SEPG ####[facility]ClevelLauren [place]ille [phone] HepB Surface Ab,Qual Negative Normal Negative [facility] Comment on above: Result Comment: NEGA TIVE Performed By: #### R ETIC, HREMOP, CMP, TSH, KLFRS, MPASRM, SEPG ####[facility]CJ[address] [place] [phone] [place]/Cope,Free,Seron 2016 K/L Ratio, Serum 1.99 High 0.26-1.65 [facility] Comment on above: Performed By: #### R ETIC, HREMOP, CMP, TSH, KLFRS, MPASRM, SEPG ####[facility]CJ[address] [place] [phone] [place], Free, Serum 32.8 mg/L High 3.30-19.40 [facility] Comment on above: Result Comment: Rare ly, increased serum free light chains values may not be detected due to antigen excess phenomenon. Results should always be correlated with other laboratory results and clinical findings. Performed By: #### R ETIC, HREMOP, CMP, TSH, KLFRS, MPASRM, SEPG ####[facility]CJuan [place] [phone] Lambda, Free, Serum 16.5 mg/L Normal 5.7-26.3 [facility] Comment on above: Result Comment: Rare ly, increased serum free light chains values may not be detected due to antigen excess phenomenon. Results should always be correlated with other laboratory results and clinical findings. Performed By: #### R ETIC, HREMOP, CMP, TSH, KLFRS, MPASRM, SEPG ####[place] [address]CJ[address] [place] [phone] Monoclonl Protein,Blon 03-14 MPA Parminder/Milner Ratio 2.08 Normal 1-3 [facility] Comment on above: Performed By: #### R ETIC, HREMOP, CMP, TSH, KLFRS, MPASRM, SEPG ####[facility]CJuan [place] [phone] MPA Result No M protein is identified. Normal No M protein is identified. [facility] Comment on above: Performed By: #### R ETIC, HREMOP, CMP, TSH, KLFRS, MPASRM, SEPG ####[facility]CJuan [place] [phone] MPA Serum IgA 173 mg/dL Normal 78-391 [facility] Comment on above: Performed By: #### R ETIC, HREMOP, CMP, TSH, KLFRS, MPASRM, SEPG ####[facility] AveClevelLauren [place]ille [phone] MPA Serum IgG 1650 mg/dL High 717-1411 [facility] Comment on above: Performed By: #### R ETIC, HREMOP, CMP, TSH, KLFRS, MPASRM, SEPG ####[facility]CJ[address] [place] [phone] MPA Serum IgM 186 mg/dL Normal 53-334 [facility] Comment on above: Performed By: #### R ETIC, HREMOP, CMP, TSH, KLFRS, MPASRM, SEPG ####[facility] AveCPoll[place], [place] [phone] Serum [place] 1540 mg/dL High 534-1267 [facility] Comment on above: Performed By: #### R ETIC, HREMOP, CMP, TSH, KLFRS, MPASRM, SEPG ####[facility]CPoll[place], [place] [phone] Serum Lambda 740 mg/dL High 253-653 [facility] Comment on above: Performed By: #### R ETIC, HREMOP, CMP, TSH, KLFRS, MPASRM, SEPG ####[facility]CP[address], [place] [phone] Staff Review Reviewed by Delores Means MD ([id number]) Normal [facility] Comment on above: Performed By: #### R ETIC, HREMOP, CMP, TSH, KLFRS, MPASRM, SEPG ####[facility]CPoll[place], [place] [phone] PB LG LEUK MARKERSon 017 PB LG LEUK MARKERS Account Credited Normal [facility] Comment on above: Result Comment: BIPIN NOE PER STAFF REVIEW. FE [id number] available in [facility] under the Surgical Pathology Test listed in the Laboratory Tab. Performed By: #### L D6 ####[place] [address] AveCPoll[place], [place] [phone] WBC (Leukocytes) 13.38 10*3/uL High 3.70-11.00 [facility] Comment on above: Performed By: #### L D6 ####[facility]CPoll[place], [place] [phone] Protein Electrophor.on 03-14 Albumin 3.76 g/dL Normal 3.37-4.23 [facility] Comment on above: Performed By: #### L D6 ####[place] [phone] Alpha 1 Globulin 0.19 gm/dL Normal 0.18-0.31 [facility] Comment on above: Performed By: #### L D6 ####[place] [phone] Alpha 2 Globulin 0.90 gm/dL Normal 0.52-0.97 [facility] Comment on above: Performed By: #### L D6 ####[place] [phone] Beta Globulin 1.15 gm/dL Normal 0.84-1.36 [facility] Comment on above: Performed By: #### L D6 ####[place] [phone] Gamma Globulin 1.80 gm/dL High 0.70-1.44 [facility] Comment on above: Performed By: #### L D6 ####[place] [phone] Interpretation SEE COMMENT Normal [facility] Comment on above: Result Comment: An a typical region of restricted mobility is identified on protein electrophoresis.The atypical region did not stain on accompanying immunofixation and therefore is unlikely to be a monoclonal immunoglobulin. Performed By: #### L D6 ####[place] [address] [place] [phone] M Protein Location N/A Normal [facility] Comment on above: Performed By: #### L D6 ####[place] [phone] M Ja Concentratn 0.00 gm/dL Normal 0.00 [facility] Comment on above: Performed By: #### L D6 ####[address] [place], [place] [phone] SPE Staff Review Reviewed by Delores Means MD ([id number]) Normal [facility] Comment on above: Performed By: #### L D6 ####[facility] [place], [place] [phone] Total Protein, SPE 7.8 g/dL Normal 6.0-8.4 [facility] Comment on above: Performed By: #### L D6 ####[facility] [address] [place], [place] [phone] Remote CBCDIF (for [facility] use o nly)on 03-14-2017 Abs Baso 0.14 k/uL High 0.00-0.10 [facility] Abs [place] 0.66 k/uL Normal 0.00-0.86 [facility] Abs Neut 10.25 k/uL High 1.45-7.50 [facility] Basophils/100 WBC Auto (Bld) 1.1 % Normal [facility] Eosinophils 0.08 10*3/uL Normal 0.00-0.45 [facility] Eosinophils/100 leukocytes 0.6 % Normal [facility] Erythrocyte distribution width Auto Ratio (RBC) 14.0 % Normal 11.5-15.0 [facility] Erythrocytes (RBC) 5.12 10*6/uL Normal 3.90-5.20 [facility] Hematocrit (HCT) 42.5 % Normal 36.0-46.0 [facility] Hemoglobin mass conc (Bld) 14.1 g/dL Normal 11.5-15.5 [facility] Lymphocytes 1.98 10*3/uL Normal 1.00-4.00 [facility] Lymphocytes/100 leukocytes 15.1 % Normal [facility] MCH 27.5 pG Normal 26.0-34.0 [facility] MCHC mass conc (RBC) 33.2 g/dL Normal 30.5-36.0 [facility] MCV 83.0 fL Normal 80.0-100.0 [facility] Monocytes/100 leukocytes 5.0 % Normal [facility] Neutrophils/100 WBC Auto (Bld) 78.2 % Normal [facility] Platelet mean volume (PMV) 9.6 fL Normal 9.0-12.7 [facility] Platelets 609 10*3/uL High 150-400 [facility] WBC (Leukocytes) 13.11 10*3/uL High 3.70-11.00 [facility] Reticulocyteon 03-14-2017 Abs Retic 0.073 M/uL Normal 0.0180-0.10 00 [facility] Comment on above: Performed By: #### R ETIC, HREMOP, CMP, TSH, KLFRS, MPASRM, SEPG ####[facility] [place], [place] [phone] Retic% 1.4 % Normal 0.4-2.0 [facility] Comment on above: Performed By: #### R ETIC, HREMOP, CMP, TSH, KLFRS, MPASRM, SEPG ####[facility] [place], [place] [phone] TSHon 03-14-2017 Thyroid stimulating hormone (TSH) 0.537 uU/mL Normal 0.400-5.500 [facility] Comment on above: Result Comment: If t he patient is , TSH reference range varies by gestational period:First Trimester 0.100-2.500 uU/mLSecond Trimester 0.200-3.000 uU/mLThird Trimester 0.300-3.000 uU/mLReferences: 1. Sutton L, Delfina M, Anders EK, et al. Management of Thyroid Dysfunction during and : An Endocrine Society Clinical Practice Guideline. J Clin Endocrinol Metab, 2012:97:3144-4050. 2. Conor ROSAS. Overview of thyroid disease in . UpToDate. 2016. Accessed on November 24, 2015. Performed By: #### R ETIC, HREMOP, CMP, TSH, KLFRS, MPASRM, SEPG ####[facility] [place], [place] [phone] CNOVSPon 03-13-2017 OVS Visit (SP) Office ([place]) -------GLADIS MICHAEL ([id number]) 1975 [facility] Time Provider Kztzxjsiti82/5/17 10:00 AM ISAAC SHELTON During your visit today, we recorded the following information about you: Temperature Pulse Respiration Blood pressure 99 degrees 96/minute 18/minute 143/93 Weight Height 103.5 kg 1.6 Kassidy Shelton DO 03/14/2017 2:41 PM SignedPATIENT NAME: Gladis ElderRN: [id number] PHYSICIAN: Joseph Harris DO[address] [place] [address]IJGANRM CARE PHYSICIAN: MASOOD Rubin PHYSICIANS:CHIEF COMPLAINT: Lymphocytosis [...] COUNT-PROTEIN ELECTROPHORESIS W/INTERP-CBC + DIFF (FOR REMOTE [facility] USE)-KAPPA/COPE,FREE,SER-MO NOCLONAL PROT BLD W/INTERP-HEP REMOTE [...] three weeks now.Had few ER visits at [place] last year for LUQ pain and had [...] for5 days straight. Went to ER 02/26. [place] was negative, strep negative. Flunegative. She was [...] my recommendations listed below. The patientElizabeth Frances Madivarun verbalized understanding and agreed with theserecommendations and plan. I answered all questions satisfactorily..Hai Shelton D.O.Medical OncologistMarble Canyon, [place]Referring Provider: ISAAC SHELTON [[id number]]Allergies As of Date: 03/13/2017 Noted Allergy ReactionTOPROL XL (METOPROLOL) 04/11/2016 14 - Other: See Comments Comments: heart races per patientDate Reviewed: 03/13/2017Reviewed by: Merna Gudino - Fully AssessedReason for Visit: Lymphocytosis [Other] Cmt: follow upPrimary Visit Diagnosis:Lymphocytosis [D72.820]Order(s):CT ABD/PEL W IVCON [[id number]] Order #: [id number] FUTURE CT CHEST W IVCON [[id number]] Order #: [id number] FUTURE iv contrast (radiology procedure)CT Chest ABD/PEL-Inject, [...] 0 CT NECK SOFT TISSUE W IVCON [[id number]] Order #: [id number] FUTURE [] iv contrast (radiology procedure)Inject 1 [...] GRADE LEUK MARKERS FC [SQPBLGLY] Order #: [id number] FUTURE STAFF REVIEW WITH CBC AND DIFF [SQSTREV] Order #: [id number]. #:[id number] COMP METABOLIC PANEL [SQCMP] Order #: [id number] FUTURE TSH BLD [SQTSH] Order #: [id number] FUTURE RETIC COUNT [SQRETIC] Order #: [id number] FUTURE PROTEIN ELECTROPHORESIS W/INTERP [SQSEPG] Order #: [id number] FUTURE CBC + DIFF (FOR REMOTE [facility] USE) [SQRCBCDF] Order #: [id number] FUTURE KAPPA/COPE,FREE,SER [SQKLFRS] Order #: [id number] FUTURE MONOCLONAL PROT BLD W/INTERP [SQMPASRM] Order #: [id number] FUTURE HEP REMOTE PANEL BL [SQHREMOP] Order #: [id number] FUTUREPrescriptions as of 03/13/2017 Sig: PINDOLOL 5 [...] by ISAAC SHELTON DO on 03/14/17 Normal [facility] LDon 03-13-2017 LD 164 U/L Normal 135-214 [facility] Comment on above: Performed By: #### L D6 ####[facility] [address] [place], [place] [phone] PROGRESSon 03-13-2017 PROGRESS HNO ID: [id number] thor: Isaac SheltonService: (none)Author Type: PhysicianType: Progress NotesFiled: 03/14/2017 2:41 PMNote Text:PATIENT NAME: Gladis PatelarMRN: [id number] PHYSICIAN: Joseph Harris DO[address] [facility] [address]WNWMXBS CARE PHYSICIAN: MASOOD Rubin PHYSICIANS:CHIEF COMPLAINT: Lymphocytosis [...] COUNT-PROTEIN ELECTROPHORESIS W/INTERP-CBC + DIFF (FOR REMOTE [facility] USE)-KAPPA/COPE,FREE,SER-MO NOCLONAL PROT BLD W/INTERP-HEP REMOTE [...] three weeks now.Had few ER visits at [place] last year for LUQ pain and had [...] for5 days straight. Went to ER 02/26. [place] was negative, strep negative.Flu negative. She was [...] Enteric Contrastas designated per enteric contrast guidelinesALLERGIES:ALLERGI ESAllergen Reactions- Toprol [...] I answered all questions satisfactorily..Hai Shelton D.O.Medical OncologistNoCanton, [place] Normal [facility] Remote Abs Gran + CBC (for [facility] use only)on 03-13-2017 Absol Gran Count 10.95 k/uL High 1.45-7.50 [facility] Erythrocyte distribution width Auto Ratio (RBC) 14.0 % Normal 11.5-15.0 [facility] Erythrocytes (RBC) 5.04 10*6/uL Normal 3.90-5.[address] Hematocrit (HCT) 41.8 % Normal 36.0-46.0 [facility] Hemoglobin mass conc (Bld) 14.0 g/dL Normal 11.5-15.5 [facility] MCH 27.8 pG Normal 26.0-34.0 [facility] MCHC mass conc (RBC) 33.5 g/dL Normal 30.5-36.0 [facility] MCV 82.9 fL Normal 80.0-100.0 [facility] Platelet mean volume (PMV) 9.3 fL Normal 9.0-12.7 [facility] Platelets 592 10*3/uL High 150-400 [facility] WBC (Leukocytes) 14.22 10*3/uL High 3.70-11.00 [facility] Staff Rev w CBCDIFon 017 Abs Baso 0.20 k/uL High <0.11 [facility] Comment on above: Performed By: #### S PUMA ####[place] [address] [address] [place] [phone] Abs [place] 0.76 k/uL Normal <0.87 [facility] Comment on above: Performed By: #### S PUMA ####[place] [address] [place] [phone] Abs Neut 11.19 k/uL High 1.45-7.50 [facility] Comment on above: Performed By: #### S PUMA ####[place] [address] [address] [place] [phone] Basophils/100 WBC Auto (Bld) 1.4 % Normal [facility] Comment on above: Performed By: #### S PUMA ####[place] [phone] Diff Comments SEE COMMENT Normal [facility] Comment on above: Result Comment: See Staff Review Performed By: #### S PUMA ####[place] [address] [address] [phone] Eosinophils 0.09 10*3/uL Normal <0.46 [facility] Comment on above: Performed By: #### S PUMA ####[place] [address] [place] [phone] Eosinophils/100 leukocytes 0.6 % Normal [facility] Comment on above: Performed By: #### S PUMA ####[place] [address] [address] [place] [phone] Erythrocyte distribution width Auto Ratio (RBC) 13.6 % Normal 11.5-15.0 [facility] Comment on above: Performed By: #### S PUMA ####[place] [address] [address] [place] [phone] Erythrocytes (RBC) 5.19 10*6/uL Normal 3.90-5.20 [facility] Comment on above: Performed By: #### S PUMA ####[place] [phone] Hematocrit (HCT) 45.0 % Normal 36.0-46.0 [facility] Comment on above: Performed By: #### S PUMA ####[place] [phone] Hemoglobin mass conc (Bld) 14.1 g/dL Normal 11.5-15.5 [facility] Comment on above: Performed By: #### S PUMA ####[place] [phone] Lymphocytes 2.42 10*3/uL Normal 1.00-4.00 [facility] Comment on above: Performed By: #### S PUMA ####[place] [phone] Lymphocytes/100 leukocytes 16.5 % Normal [facility] Comment on above: Performed By: #### S PUMA ####[place] [phone] MCH 27.2 pG Normal 26.0-34.0 [facility] Comment on above: Performed By: #### S PUMA ####[place] [phone] MCHC mass conc (RBC) 31.3 g/dL Normal 30.5-36.0 [facility] Comment on above: Performed By: #### S PUMA ####[place] [phone] MCV 86.7 fL Normal 80.0-100.0 [facility] Comment on above: Performed By: #### S PUMA ####[place] [phone] Monocytes/100 leukocytes 5.2 % Normal [facility] Comment on above: Performed By: #### S PUMA ####[place] [address] AvBlockton, [place] [phone] Neutrophils/100 WBC Auto (Bld) 76.3 % Normal [facility] Comment on above: Performed By: #### S PUMA ####[address] [phone] Pathologist (cervix/vaginal) Reviewed by Karon Levin DO ([id number]) Normal [facility] Comment on above: Performed By: #### S PUMA ####[place] [phone] Platelet mean volume (PMV) 10.0 fL Normal 9.0-12.7 [facility] Comment on above: Performed By: #### S PUMA ####[address] [phone] Platelets 622 10*3/uL High 150-400 [facility] Comment on above: Performed By: #### S PUMA ####[address] [phone] Red Cell Morph SEE COMMENT Normal [facility] Comment on above: Result Comment: Unre markable Performed By: #### S PUMA ####[place] [phone] Staff Review SEE COMMENT Normal [facility] Comment on above: Result Comment: Neut rophilic Leukocytosis Without Left ShiftThrombocytosis Performed By: #### S PUMA ####[address] [phone] WBC (Leukocytes) 14.66 10*3/uL High 3.70-11.00 [facility] Comment on above: Performed By: #### S PUMA ####[address], [place] [phone] CNOVSPon 02-06-2017 CNOVSP Visit (SP) Office (HE[place]AS[place]) -------GLADIS MICHAEL ([id number]) 1975 FDate Time Provider Department02/06/17 11:15 AM ISAAC SHELTON During your visit today, we recorded the following information about you: Temperature Pulse Respiration Blood pressure 98.6 degrees 66/minute 16/minute 161/102 Weight Height 108.6 kg 1.6 Kassidy Shelton DO 02/07/2017 12:59 AM SignedPATIENT NAME: Gladis LocoN: [id number] PHYSICIAN: MICHAEL Rubin[address] [facility] [address]QSTKVMX CARE PHYSICIAN: MASOOD Rubin PHYSICIANS:CHIEF COMPLAINT: Lymphocytosis [...] three weeks now.Had few ER visits at [place] last year for LUQ pain and had [...] I answered all questions satisfactorily..Hai Shelton D.O.Medical OncologistMarble [place], [place]Referring Provider: ISAAC SHELTON [[id number]]Allergies As of Date: 02/06/2017 Noted Allergy ReactionTOPROL XL (METOPROLOL) 04/11/2016 14 - Other: See Comments Comments: heart races per patientDate Reviewed: 02/06/2017Reviewed by: Richard Leon) [place] - Fully AssessedReason for Visit: Lymphocytosis [Other] Cmt: 9 month follow upReason For Visit History RecordedPrimary Visit Diagnosis:Lymphocytosis [D72.820]Order(s):JAK2 V617F MUTATION [SQJAK2] Order #: [id number] FUTUREDisposition: Return in about 6 months (around [...] by ISAAC SHELTON DO on 02/07/17 Normal [facility] JAK2 V617F Mutationon 2016 JAK2 V617F Interp Result: JAK2 V617F M utation Not Detected Normal [facility] Comment on above: Result Comment: Inte rpretation: The JAK2 V617F Mutation was not detected. The V617F point mutation has been reported in a high percentage of cases of polycythemia vera, approximately half of the cases of essential thrombocythemia and chronic idiopathic myelofibrosis, and in a smaller proportion of other myeloid disorders.(NOTE)Methodology:Following DNA extraction and library construction utilizing [employer] Cancer Hotspot Panel v.1 ([employer], [place]), DNA sequencing of gene mutation hotspot regions was performed onthe MiSeq instrument ([employer], [place], [place]). Product Hunt software([employer], [place], [place]) was used to analyze FASTQ files [...] was developed and its performance characteristicsdetermined by [facility]'s Blayne Barrera [facility] Pathology andLaboratory Medicine Nelson ([facility] CENTERBPLDE). It has not been cleared orapproved by the FDA. RT-PLDE is regulated under CLIA as qualified toperform high-complexity testing. This test is used for clinicalpurposes. It should not be regarded as investigational or forresearch.References:Gracy DA, Socrates A, Larryerdamian R, Roberto Carlos J, Borowitz MJ, Le Jamel MM,et al. The 2016 revision to the World Health Organization (WHO)classification of myeloid neoplasms and acute leukemia. [id number];127: 2391-405.Magdalene Squires, Jonah R, Adrian JW. Myeloproliferative neoplasms:contemporary diagnosis using histology and genetics. Funmi Rev ClinOncol 2009;6:627-37. Performed By: #### L D6, JAK2 ####[address] [phone] JAK2 [id number] Spec Type Peripheral Blood Normal [facility] Comment on above: Performed By: #### L D6, JAK2 ####[address] [phone] Molecular Path Rev Reviewed by David Vo M.D., Ph.D ([id number]) Normal [facility] Comment on above: Performed By: #### L D6, JAK2 ####[address] [phone] LDon 02-06-2017 LD 186 U/L Normal 135-214 [facility] Comment on above: Performed By: #### L D6, JAK2 ####[address] [phone] PROGRESSon 02-06-2017 PROGRESS HNO ID: [id number] thor: Isaac Carrasco: (none)Author Type: PhysicianType: Progress NotesFiled: 02/07/2017 12:59 AMNote Text:PATIENT NAME: Gladis PatelarMRN: [id number] PHYSICIAN: [place] [id number] CARE PHYSICIAN: MASOOD Rubin PHYSICIANS:CHIEF COMPLAINT: Lymphocytosis [...] three weeks now.Had few ER visits at [place] last year for LUQ pain and had [...] I answered all questions satisfactorily..Hai Shelton D.O.Medical OncologistGarfield County Public Hospital Cancer [place], [place] Normal [facility] Remote Abs Gran + CBC (for F HC use only)on 02-06-2017 Absol Gran Count 10.53 k/uL High 1.45-7.[address] [facility] Erythrocyte distribution width Auto Ratio (RBC) 13.8 % Normal 11.5-15.0 [facility] Erythrocytes (RBC) 4.88 10*6/uL Normal 3.90-5.20 [facility] Hematocrit (HCT) 40.8 % Normal 36.0-46.0 [facility] Hemoglobin mass conc (Bld) 13.6 g/dL Normal 11.5-15.5 [facility] MCH 27.9 pG Normal 26.0-34.0 [facility] MCHC mass conc (RBC) 33.3 g/dL Normal 30.5-36.0 [facility] MCV 83.6 fL Normal 80.0-100.0 [facility] Platelet mean volume (PMV) 9.6 fL Normal 9.0-12.7 [facility] Platelets 448 10*3/uL High 150-400 [facility] WBC (Leukocytes) 14.69 10*3/uL High 3.70-11.00 [facility] LDon 01-23-2017 LD 169 U/L Normal 135-214 [facility] Comment on above: Performed By: #### L D6 ####[facility] [address] [place], [place] [phone] Remote Abs Gran + CBC (for F HC use only)on 01-23-2017 Absol Gran Count 8.16 k/uL High 1.45-7.50 [facility] Erythrocyte distribution width Auto Ratio (RBC) 13.7 % Normal 11.5-15.0 [facility] Erythrocytes (RBC) 5.16 10*6/uL Normal 3.90-5.20 [facility] Hematocrit (HCT) 43.4 % Normal 36.0-46.0 [facility] Hemoglobin mass conc (Bld) 14.3 g/dL Normal 11.5-15.5 [facility] MCH 27.7 pG Normal 26.0-34.0 [facility] MCHC mass conc (RBC) 32.9 g/dL Normal 30.5-36.0 [facility] MCV 84.1 fL Normal 80.0-100.0 [facility] Platelet mean volume (PMV) 9.6 fL Normal 9.0-12.7 [facility] Platelets 481 10*3/uL High 150-400 [facility] WBC (Leukocytes) 12.17 10*3/uL High 3.70-11.00 [facility] CNCOon 11-28-2016 CNCO Letter TextNortnadya Montaño [facility] [address] [place], [place] [address]Tegsc: [phone]: [place] [address] [place], [place] [address]Ymxyl: [phone]: [facility] [address] [place], [place] [address]Aeqjq: [phone]: Toll Free: [phone] [email or web address] Saad Arredondo M.D., Ernesto Schmidt M.D.Isaac Shelton D.O..Audrey Jang M.D. FACROSaju A. Rajan, M.D..November 28, 2016Nettiejo Michael[address] [place] [id number] Ms. Michael,You missed your scheduled appointment on 11/28/2016. Please call our officeto reschedule. If you need to cancel any future appointments, please call togive us 24 hour notice so that we can offer your appointment to anotherpatient.Sincerely,Tulio Au M.D. Normal [facility] Vital Signs Date Time Vital Sign Value Performing Clinician Facility 09-21-2023 10: Body height 160.02 cm [facility] 09-21-2023 10: Body mass index (BMI) [Ratio] 43.4 kg/m2 [facility] 09-21-2023 10: Body temperature 98.4 [degF] [facility] 09-21-2023 10: Body weight 111.13 kg [facility] 09-21-2023 10:14-0400 Diastolic blood pressure 88 mm[Hg] [facility] 09-21-2023 10:14-0400 Heart rate 72 /min [facility] 09-21-2023 10:14-0400 Respiratory rate 18 /min [facility] 09-21-2023 10:14-0400 SaO2% (BldA) [Mass fraction] 98 % [facility] 09-21-2023 10:14-0400 Systolic blood pressure 132 mm[Hg] [facility] 10-20-2021 21:00-0400 Body temperature 98.6 [degF] Mulugeta Tulio [facility] 10-20-2021 21:00-0400 Diastolic blood pressure 91 mm[Hg] Mulugeta Tulio [facility] 10-20-2021 21:00-0400 Heart rate 76 /min Mulugeta Tulio [facility] 10-20-2021 21:00-0400 Mean blood pressure 113 mm[Hg] Mulugeta Tulio [facility] 10-20-2021 21:00-0400 Respiratory rate 18 /min Mulugeta Tulio [facility] 10-20-2021 21:00-0400 SaO2% (BldA) [Mass fraction] 97 % Mulugeta Tulio [facility] 10-20-2021 21:00-0400 Systolic blood pressure 158 mm[Hg] Mulugeta Tulio [facility] 10-20-2021 20:00-0400 Body temperature 97.7 [degF] Mulugeta Tulio [facility] 10-20-2021 20:00-0400 Diastolic blood pressure 78 mm[Hg] Mulugeta Tulio [facility] 10-20-2021 20:00-0400 Heart rate 72 /min Mulugeta Tulio [facility] 10-20-2021 20:00-0400 Mean blood pressure 105 mm[Hg] Mulugeta Tulio [facility] 10-20-2021 19:00-0400 Diastolic blood pressure 102 mm[Hg] Mulugeta Tulio [facility] 10-20-2021 19:00-0400 Heart rate 70 /min Mulugeta Tulio [facility] 10-20-2021 19:00-0400 Mean blood pressure 124 mm[Hg] Mulugeta Tulio [facility] 10-20-2021 19:00-0400 Respiratory rate 17 /min Mulugeta Tulio [facility] 10-20-2021 19:00-0400 Systolic blood pressure 168 mm[Hg] Mulugeta Tulio [facility] 10-18-2021 12:00-0400 Heart rate 63 /min Kaylinn Dokken [facility] 10-18-2021 12:00-0400 Mean blood pressure 123 mm[Hg] Kaylinn Dokken [facility] 10-18-2021 12:00-0400 Systolic blood pressure 168 mm[Hg] Kaylinn Dokken [facility] 10-18-2021 11:30-0400 Diastolic blood pressure 100 mm[Hg] Kaylinn Dokken [facility] 10-18-2021 11:30-0400 Heart rate 69 /min Kaylinn Dokken [facility] 10-18-2021 11:30-0400 Mean blood pressure 121 mm[Hg] Kaylinn Dokken [facility] 10-18-2021 11:30-0400 Respiratory rate 16 /min Kaylinn Dokken [facility] 10-18-2021 11:30-0400 SaO2% (BldA) [Mass fraction] 99 % Kaylinn Dokken [facility] 10-18-2021 11:30-0400 Systolic blood pressure 163 mm[Hg] Kaylinn Dokken [facility] 10-18-2021 11:00-0400 Heart rate 68 /min Kaylinn Dokken [facility] 10-18-2021 11:00-0400 Mean blood pressure 120 mm[Hg] Kaylinn Dokken [facility] 10-18-2021 11:00-0400 SaO2% (BldA) [Mass fraction] 100 % Kaylinn Dokken [facility] 10-18-2021 11:00-0400 Systolic blood pressure 160 mm[Hg] Kaylinn Dokken [facility] 10-18-2021 09:30-0400 Hourly Rounding Kaylinn Dokken [facility] 10-18-2021 09:30-0400 Promise to Return Kaylinn Dokken [facility] 10-18-2021 08:30-0400 Hourly Rounding Kaylinn Dokken [facility] 10-18-2021 08:30-0400 Promise to Return Kaylinn Dokken [facility] 10-18-2021 03:59-0400 Body temperature 98.06 [degF] Jeffy Das [facility] 10-18-2021 03:59-0400 Heart rate 77 /min Jeffy Das [facility] Encounters Encounter Date Encounter Type Care Provider Facility Start: 09-21-2023 End: 09-21-2023 ambulatory [facility] Work Phone: Start: 09-21-2023 End: 09-21-2023 Patient encounter procedure [facility] Work Phone: Start: 07-23-2023 End: 07-23-2023 ambulatory MARY GRECO [facility] Start: 06-11-2023 End: 06-11-2023 ambulatory Belle Jose Other [employer] Other Start: 06-11-2023 Telephone encounter Belle Jose [place] Start: 06-10-2023 End: 06-10-2023 ambulatory Belle Jose Other [employer] Other Start: 06-10-2023 Office outpatient vi sit 15 minutes Belle Jose [place] Start: 02-19-2023 End: 02-19-2023 ambulatory GERALD MANCINI [facility] Start: 09-22-2022 End: 09-23-2022 ambulatory TERRI LANDAVERDE Facility:[facility]1 Start: 08-21-2022 ambulatory KAILYN WAITE Facility: [facility] Start: 08-13-2022 End: 08-14-[address] TERRI DELANEY Facility:[facility] Start: 08-07-2022 End: 08-07-2022 ambulatory HARRY WALLIS . Facility:[facility] Start: 03-18-2022 ambulatory KAILYN WAITE Facility: [facility] Start: 03-06-2022 End: 03-07-[address] SHADE ROMO Facility:[facility]1 Start: 01-21-2022 End: 01-21-2022 ambulatory KAILYN WAITE Facility:[facility] Start: 01-17-2022 End: 01-18-2022 ambulatory KAILYN WAITE Facility:[facility] Start: 01-10-2022 End: 01-11-[address] TERRI DELANEY Facility:[facility] Start: 10-30-2021 Encounter for preprocedural cardiovascular examination DR GUSTAVO FONTAINE . [facility] Start: 10-26-2021 End: 10-26-[address] GUSTAVO FONTAINE . Facility:[facility] Start: 10-24-2021 End: 10-25-[address] GUSTAVO FONTAINE . Facility:[facility] Start: 10-24-2021 End: 10-25-2021 Encounter for preprocedural cardiovascular examination DR GUSTAVO FONTAINE . Facility:[facility]1 Start: 10-20-2021 End: 10-20-2021 Emergency department patient visit Mulugeta Antunez [facility] Start: 10-18-2021 End: 10-18-2021 Emergency department patient visit Jeffy Das [facility] Start: 09-27-2021 End: 09-28-2021 ambulatory KAILYN WAITE Facility:[facility]1 Start: 03-20-2021 Gynecological examin ation normal Belle Jose Other [employer] Other Start: 08-09-2020 Adult health examination Renee Jose Other [employer] Other Start: 07-01-2018 End: 07-02-2018 Patient encounter procedure DEFAULT PHYSICIAN Facility:[facility] Start: 06-30-2018 End: 07-01-2018 Patient encounter procedure DEFAULT PHYSICIAN Facility:[facility] Start: 10-20-2017 End: 10-22-2017 Ambulatory ISAAC SHELTON [facility] Start: 10-09-2017 End: 10-10-2017 Ambulatory ISAAC SHELTON [facility] Start: 10-06-2017 End: 10-06-2017 Ambulatory ISAAC SHELTON [facility] Start: 09-25-2017 End: 10-01-2017 Ambulatory JESUS CHEATHAM [facility] Start: 06-05-2017 End: 06-10-2017 Ambulatory ISAAC SHELTON [facility] Start: 05-22-2017 End: 05-28-2017 Ambulatory JESUS CHEATHAM [facility] Start: 04-28-2017 End: 05-05-2017 Ambulatory ISAAC SHELTON [facility] Start: 04-10-2017 End: 04-16-2017 Ambulatory CANDIS DAVID [facility] Start: 04-07-2017 End: 04-11-2017 Ambulatory ISAAC SHELTON [facility] Start: 03-19-2017 End: 03-19-2017 Ambulatory ISAAC SHELTON [facility] Start: 03-14-2017 End: 03-14-2017 Ambulatory ISAAC SHELTON [facility] Start: 03-13-2017 End: 03-17-2017 Ambulatory ISAAC SHELTON [facility] Start: 02-06-2017 End: 02-07-2017 Ambulatory ISAAC SHELTON [facility] Start: 01-23-2017 End: 01-23-2017 Ambulatory IASAC SHELTON [facility] Procedures Date Procedure Procedure Detail Performing Clinician section Jeffy cruz Cholecystectomy Jeffy redd Immunizations Immunization Date Immunization Notes Care Provider Fa [facility] 03-13-2020 influenza virus vaccine, split virus (incl. purified surface antigen) Belle Jose Other [employer] Other 03-13-2020 influenza virus vaccine, unspecified formulation [facility] 03-16-2018 influenza virus vaccine, split virus (incl. purified surface antigen) Belle Jose Other [employer] Other 03-16-2018 influenza virus vaccine, unspecified formulation [facility] Payers Date Payer Category Payer Unknown [id number] 1975 Unknown [id number] 1975 Unknown [id number] 2.16.840.1.179913.3.579.2.593 1975 Unknown [id number] 2.16.840.1.143078.3.579.2.593 1975 Unknown [id number] 2.16.840.1.535961.3.579.2.593 1975 Unknown [id number] 2.16.840.1.415880.3.579.2.593 1975 Unknown [id number] 2.16.840.1.533431.3.579.2.593 1975 Unknown [id number] 2.16.840.1.886830.3.579.2.593 1975 Unknown [id number] 2.16.840.1.422509.3.579.2.593 1975 Unknown [id number] 2.16.840.1.348523.3.579.2.593 1975 Unknown [id number] 2.16.840.1.914837.3.579.2.593 1975 Unknown [id number] 2.16.840.1.475838.3.579.2.593 1975 Unknown [id number] 2.16.840.1.807761.3.579.2.593 1975 Unknown [id number] 2.16.840.1.205530.3.579.2.593 1959 Private Health Insurance [id number] Self-pay [id number] 1959 Unknown [id number] 1959 Unknown [id number] Self-pay Self Pay [id number] Unknown Unknown MMO [id number] Unknown [place] KETURAH [id number] Social History Date Type Detail Facility Tobacco smoking status [facility] Sex Assigned At Female [facility] Start: 06-10-2023 Tobacco smoking stat [facility] Never smoked tobacco (finding) [facility] Start: 1975 Sex Assigned At Female F [facility] Clinical Notes 10-18-2021 to 07-23-2023 Note Date & Type Note Facility 07-23-2023 Note Currently without fl uid overload/ edema at this time with chlorthalidone daily. + RANDALL Will repeat TTE [facility] 07-23-2023 Note UTP CARDIOLOGY PROGR ESS [...] reviewed with pt. 2020 TTE Stress test: 2018 No echocardiogram results found for the past [...] pt to call if b/p is uncontrolled [facility] 07-23-2023 Note Patient here for [facility] up event monitor. Her insurance denied echo again. C/o cough with lisinopril. Still gets intermittent palpitations and hasn't had an echo in 3+ years. Review of Systems Cardiovascular: Positive for irregular heartbeat and palpitations. Neurological: Positive for dizziness, headaches and light-headedness. All other systems reviewed and are negative. [facility] 07-23-2023 Note Hypertension is unco ntrolled will increase chlorthalidone and pt c/o persistent dry cough- therefore will stop lisinopril. She is to monitor b/p at home and if consistently > 130/80 she is to call office and then may need started on losartan Repeat BMP in 1-2 weeks [facility] 07-23-2023 Note Continues to have pa lpitations with known MV regurg on beta yandel. Will repeat echo to evaluate for any worsening MV regurg, diastolic dysfunction. [facility] 06-10-2023 Evaluation note Encounter Date Diagnosis [...] of diseases classified elsewhere (ICD-10 - B96.89) [employer] Other 09-13-2023 NoteUT Cardiology Progress Note Reason for visit: Hypertension HPI: Gladis Mcihael is a 47 y.o. year old with [...] pallor Neck Neck: suppl (more content not included)...[facility] 02-19-2023 NotePatient here for 6 mo follow up hypertension. Darío DIMITRY Amato ordered echo in September 2022, but her insurance denied it. She had labs in November 2022. Denies chest pain and SOB. Does have occasional palpitations. Gets dizzy/lighthead at times. Review of Systems Cardiovascular: Positive for irregular heartbeat and palpitations. Neurological: Positive for dizziness, headaches and light-headedness. All other systems reviewed and are negative.[facility] 10-26-2021 NoteThe [place], [place] NAME: GLADIS MICHAEL DATE OF : MEDICAL REC#: [id number] FLY SETTER: 160[address] [facility], TRANSADMIT DATE: 10/26/2021 09:00:00 FAMILY PRACTICE NURSE PRACTITIONER DATE: 10/28/2021 02:00 DICTATING PHYSICIAN: GUSTAVO FONTAINE DICTATION DATE: 10/26/2021 12:00 OP Note OPERATION DATE: 10/26/2021 PROCEDURE: Diagnostic laparoscopy with removal of bilateral tubal remnants. PREOPERATIVE DIAGNOSIS: Pelvic pain. POSTOPERATIVE DIAGNOSIS: Pelvic pain including hydrosalpinx of partial tubal remnant bilaterally, slightly erythematous tubal remnant. Otherwise normal appearing uterus and ovaries. SURGEON: Gustavo Fontaine M.D. FINAL ASSEMBLER BOAT: VALERIE Coombs URINE OUTPUT: Yellow and clear. [...] Fontaine DO on 11/09/2021 08:27 AM EDT [facility] Signed and Approved by: DR GUSTAVO FONTAINE . 11/09/2021 08:27:00[facility]05-20-2022 NoteOP Note OPERATION DATE: 10/26/2021 ADDENDUM: Please note that the patient had partial tubal remnants with hydrosalpinx that were removed using the LigaSure. Please note that these were transected and ligated and excellent hemostasis was performed. [facility] Signed and Approved by: DR GUSTAVO FONTAINE . 12/02/2021 10:37:00[id number] NoteOP Note OPERATION DATE: 10/26/2021 ADDENDUM: Please note that the patient had partial tubal remnants with hydrosalpinx that were removed using the LigaSure. Please note that these were transected and ligated and excellent hemostasis was performed.[id number] Hospital Discharge instructions Patient Education 10/20/2021 21:20:19 [...] cyst. Follow these instructions at home: Take exxc-fed-tltwctz and prescription medicines only as told by [...] 05/26/2006 Document Revised: 08/24/2018 Document Reviewed: 10/27/2016 [employer] Patient Education 2020 [employer]. Follow Up Care 10/20/2021 18:19:10 With:Gustavo FONTAINE Address: [address] , [place] [address]- Business (1) When:10/23/2021 21:06:35 [facility]05-14-2022 Evaluation + Plan noteExtracted from: Title:ED Note Author:Hunter Conte DO Date :10/20/21 Hydrosalpinx (N70.11: Chroni c salpingitis) Left ovarian cyst (N83.202: Unspecified ovarian cyst, left side) Orders: ketorolac, 10 mg = 1 tab(s), Oral, q6hr, PRN for pain, X 5 day(s), # 20 tab(s), Refills(s) 0, Pharmacy: [facility]/pharmacy #[id number], 160, cm, 10/20/21 18:21:00 EDT, Height/Length [...] 10/20/21 19:00:[address] Abdomen/Pelvis w/ Contrast [facility]05-12-2022 Hospital Discharge instructions Patient Education 10/18/2021 12:30:36 [...] Follow these instructions at home: Medicines Take jcxg-zsw-lnzoaas and prescription medicines only as told by [...] Watch your condition for any changes. Take czbd-mze-dgbzrnr and prescription medicines only as told by [...] 03/05/2006 Document Revised: 10/04/2019 Document Reviewed: 10/04/2019 [employer] Patient Education 2020 [employer]. Follow Up Care 10/18/2021 03:57:58 With:Gustavo FONTAINE Address: [address] , [place] [address]- Business (1) When:10/21/2021 12:14:15 With:KAILYN WAITE Address: [address] [place] [address]- [phone] Business (1) When:10/21/2021 12:13:23 Comments:The ultrasound showed that you have fluid in your fallopian tube. Make sure to follow-up with Dr. Fontaine as instructed. Return to the emergency room if your pain gets worse, fever, vomiting or any newsymptoms. [facility]05-12-2022 Evaluation + Plan noteExtracted from: Title:ED Addendum [...] With Cult Reflex US Pelvis Non-OB Complete [facility] noteNo InformationNort Mein[employer]spe[employer] Other Evaluation noteNo assessment information available [facility] Work Phone: History general Narrative - Reported* Type Description [...] procedures, hx of, Problem Comment : Ablasion-2014 [id number] Cholecystectomy-2005 , Problem Status : Active, Hospitalization History see above [employer] Other History general Narrative - Reported* Type [...] procedures, hx of, Problem Comment : Ablasion-2014 [id number] Cholecystectomy-2005 , Problem Status : Active, Hospitalization History see above [employer] Other Hospital course Narrative No data available for this section [facility] Summary Purpose Family History No Family History Records Found Relationship Condition Age at Onset Recorded Date/T reg father Malignant neoplasm Unknown Unknown Advance Directives No Advanced Directives Records Found Advance Directive Response Recorded Date/ Time Advance Directives No September 20 024 9:43am Chief Complaint and Reason for Visit Chief Complaint red bumps on back Additional Source Comments INFORMATION SOURCE (unrecogn ized section and content) DATE CREATED AUTHOR 11/26/2017 [facility] DATE CREATED AUTHOR AUTHOR'S ORGANIZ ATION 07/10/2018 [facility] DATE CREATED AUTHOR AUTHOR'S ORGANIZ ATION 12/31/2021 [facility] DATE CREATED AUTHOR AUTHOR'S ORGANIZ ATION 09/25/2022 [facility] DATE CREATED AUTHOR AUTHOR'S ORGANIZ ATION 10/11/2023 [facility] REASON FOR VISIT (unrecogniz ed section and content) COVID +school noteCOVID + Care Teams (unrecognized sec tion and content) Team Status: Active Member Role Status Dates Joseph Harris DO Primary Care Provider Active Team Status: Inactive Member Role Status Dates Joseph Harris DO Primary Care Provider Active Start: September 21, 2023 End: September 21, 2023 Kailyn Sagrario , AUDIOVISUAL TECHNICIAN-C Attending Provider Active S tart: September 21, 2023 End: September 21, 2023 Goals (unrecognized section and content) Goals may be documented in a n alternate section FOR RECORDS PERTAINING TO PATIENTS WHO ARE [...] BE BASED ON THE PRIMARY CLINICAL RECORDS. [facility] [employer] [facility]. provides no warranty or guarantee of the accuracy or completeness of information in this document.
== END 2023-11-01 10:10 | disposition home or self-care (01) ==
LOC: LAB 10:09
PROVIDERS: PCP Nurse Practitioner Family; Visit Provider Emergency Medicine
DX: R10.84 Generalized abdominal pain (principal)
CPT/HCPCS: 87086; 87150; 87186

== ENCOUNTER 2023-11-05 14:51 | Outpatient (OUT) | payer BC, SELFPAY ==
[2023-11-05 15:58] LABS: Alanine Aminotransferase 30 U/L (14-59); Albumin Globulin Ratio 0.8; Albumin Level 3.6 g/dL (3.4-5.0); Alkaline Phosphatase 60 U/L (46-116); Anion Gap 12.3; Aspartate Amino Transferase 7 U/L (15-37); BUN Creatinine Ratio 18.1; Bilirubin Total 0.4 mg/dL (0.2-1.0); Calcium 8.7 mg/dL (8.5-10.1); Carbon Dioxide 27.2 mmol/L (21.0-32.0); Chloride 98 mmol/L (98-107); Estimated GFR (African America >60 (>=60); Estimated GFR (Non-African Ame >60 (>=60); Globulin 4.4 g/dL; Glucose 106 mg/dL (74-106); Potassium 3.5 mmol/L (3.5-5.1); Sodium 134 mmol/L (136-145)
== END 2023-11-05 14:52 | disposition home or self-care (01) ==
LOC: LAB 14:51
PROVIDERS: PCP Nurse Practitioner Family; Visit Provider Nurse Practitioner Family
DX: E87.6 Hypokalemia (principal)
CPT/HCPCS: 36415; 80053

== ENCOUNTER 2023-12-27 07:55 | Outpatient (OUT) | payer BC, SELFPAY ==
--- OUTSIDE RECORDS SUMMARY | 2023-12-27 07:58 | XMS_ITS | CCD ---
Author Organization [facility] Care Team Providers Care Research And Development Tester Name Role Phone ADAMOWICZ, ISAAC J Unavailable Unavailable ADAMOWICZ, ISAAC J Unavailable Unavailable ADAMOWICZ, ISAAC J Unavailable Unavailable ADAMOWICZ, ISAAC J Unavailable Unavailable ADAMOWICZ, ISAAC J Unavailable Unavailable ADAMOWICZ, ISAAC J Unavailable Unavailable ADAMOWICZ, ISAAC J Unavailable Unavailable ADAMOWICZ, ISAAC J Unavailable Unavailable ADAMOWICZ, ISAAC J Unavailable Unavailable ADAMOWICZ, ISAAC J Unavailable Unavailable CANDIS HERNANDEZ Unavailable Unavailable SHANAE LUNA (AUTOMOBILE DAMAGE FIELD APPRAISER) Unavailable Unavailabl e ADAMOWICZ, ISAAC J Unavailable Unavailable ADAMOWICZ, ISAAC J Unavailable Unavailable ADAMOWICZ, ISAAC J Unavailable Unavailable JESUS CHEATHAM Unavailable Unavailab le ADAMOWICZ, ISAAC J Unavailable Unavailable SHANAE LUNA (AUTOMOBILE DAMAGE FIELD APPRAISER) Unavailable Unavailabl e SHANAE LUNA (AUTOMOBILE DAMAGE FIELD APPRAISER) Unavailable Unavailabl e ADAMOWICZ, ISAAC J Unavailable Unavailable ADAMOWICZ, ISAAC J Unavailable Unavailable JESUS CHEATHAM Unavailable Unavailab JOSEPH Arceo Unavailable Unavailab le ADAMOWICZ, ISAAC J Unavailable Unavailable ADAMOWICZ, ISAAC J Unavailable Unavailable ADAMOWICZ, ISAAC J Unavailable Unavailable SHANAE LUNA (AUTOMOBILE DAMAGE FIELD APPRAISER) Unavailable Unavailabl e ADAMOWICZ, ISAAC J Unavailable Unavailable ADAMOWICZ, ISAAC J Unavailable Unavailable PHYSICIAN, DEFAULT Admitting Unavailable PHYSICIAN, DEFAULT Attending Unavailable PHYSICIAN, DEFAULT Admitting Unavailable PHYSICIAN, DEFAULT Attending Unavailable JOVITA WAITE Primary Care Physician SHERMAN Hernandez, DR JUÁREZ Consulting Unavailable JOVITA WAITE Primary Care Unavailable DR GUSTAVO GREAWL Attending Unavailable DR GUSTAVO GREWAL Admitting Unavailable ALLI CARLSON Consulting Unavailable WADE BOUCHER Consulting Unavailable MARIANN, JOVITA Primary Care Unavailable MARIANN, JOVITA Attending Unavailable MARIANN, JOVITA Admitting Unavailable MARIANN, JOVITA Consulting Unavailable MARIANN, JOVITA Primary Care Unavailable MARIANN, JOVITA Attending Unavailable MARIANN, JOVITA Admitting Unavailable CHERELLE, DR SHADE Solitario Consulting Unavailable MARIANN, JOVITA Primary Care Unavailable [...] Unavailable MARIANN, JOVITA Primary Care Unavailable FANNIE, MARY Attending Unavailable FANNIE, MARY Admitting Unavailable ZIEBER, DR TERRI Lynn Consulting [...] Allergy 6 AOF, heart racing [facility] Repository (2 sources) Pyridoxal Drug Allergy [address] [facility] Repository (3 sources) patient allergy list reviewed by nurse or physicia Propensity to adverse reactions 7 Comment:Done [employer] Other (3 sources) Allergies Reconciled Propensity to adverse reactions Unknown [employer] Other Medications Current Medications Medication Drug Class(es) Dates Sig (Normalized) Sig (Original) acetaminophen 325 mg / oxyCODONE hydrochloride 5 mg oral tablet (2 sources) Opioid Agonist Start: 10-18-2021 Percocet 5 mg-325 mg oral tablet 1 tab(s), Oral, q6hr as needed for pain, 12 tab(s), Refill(s) 0, [facility]/pharmacy #[id number], 160, cm, 10/18/21 4:04:00 [...] BID, # 20 tab(s), Refills(s) 0, Pharmacy: [facility]/pharmacy #[id number], 160, cm, 10/18/21 4:04:00 [...] day(s), # 20 tab(s), Refills(s) 0, Pharmacy: [facility]/pharmacy #[id number], 160, cm, 10/20/21 18:21:00 [...] bedtime, # 30 tab(s), Refills(s) 0, Pharmacy: [facility]/pharmacy #[id number] Start Date: 11/10/17 Status: Ordered Start: 11-10-2017 take 1 tablet by marcus th once daily lisinopril 5 mg Tab 5 mg = 1 tab(s), Oral, Daily, Refills(s) 0 Start Date: 11/10/17 Status: Ordered Start: 07-08-2017 take 1 tablet by marcus th twice daily Lisinopril 20 MG Lisinopril( 20MG Oral 1.99248 Tablet ) Active -Hx Entry Oral for 0 Qty: 60; Refills: 10; patient taking 20 mg BID Jun, Active pindolol 5 mg oral tablet (6 sources) beta-Adrenergic Yandel Start: 09-21-2023 Pindol ol Active MG PO September 21, 2023 12:00am Start: 11-07-2021 Pindolol 10MG Pindolol( 10MG Oral two times daily ) Active -Hx Entry Oral two times daily for 0 *Pick strength-form from [facility] for eRX* Nov, Active Start: 05-22-2017 take [...] Refill. 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 She has apt on 10/23. Normal [facility] Office [facility] 07-23-2023 Follow-up visit [id number] Nettie Michael carolannyosvanychapito Daniels 1975 F Date Provider Department Center 07/23/2023 120-[facility] Family History Problem Relation Age of Onset No Known Problems Mother No Known Problems Father Family Status - Relation Status Age at Mother Father Level of Service:61613 [place] OFFICE/OUTPATIENT ESTABLISHED MOD MDM 30 MIN Normal [facility] 02-19-2023 Follow-up visit [id number] Nettie Michael jo 1975 F Date Provider Department Center 02/19/2023 3848-GERALD MANCINI [facility] Family History Problem Relation Age of Onset No Known Problems Mother No Known Problems Father Family Status - Relation Status Age at Mother Father Level of Service:36027 [place] OFFICE/OUTPATIENT ESTABLISHED MOD MDM 30-39 MIN [facility] CBC AUTO DIFFon 09-23-2022 BASO # 0.1 103/ul Normal 0.0-0.1 [facility] Comment on above: Performed By: #### U AMIC #### [facility] [address] [address] [address] Kristen Gambino Basophils/100 WBC (Bld) 0.9 % Normal 0.2-2.[address] [facility] Comment on above: Performed By: #### U AMIC #### [facility] [address] [address] [address] Kristen Gambino EO # 0.1 103/ul Normal 0.0-0.7 [facility] Comment on above: Performed By: #### U AMIC #### [facility] [address] [address] [address] Kristen Gambino Eosinophils/100 WBC (Bld) 1.1 % Normal 0.9-7.0 [facility] Comment on above: Performed By: #### U AMIC #### [facility] [address] [place] [address] Dr. Kristen Gambino Erythrocyte distribution width (RBC) [Ratio] 13.2 % Normal 11.0-15.0 [facility] Comment on above: Performed By: #### U AMIC #### [facility] [address] [place] [address] Dr. Kristen Gambino Hematocrit (Bld) [Volume fraction] 41.2 % Normal 36.0-48.0 [facility] Comment on above: Performed By: #### U AMIC #### [facility] [address] [place] [address] Dr. Kristen Gambino Hemoglobin (Bld) [Mass/Vol] 13.8 g/dL Normal 12.0-16.0 [facility] Comment on above: Performed By: #### U AMIC #### [facility] [address] [place] [address] Dr. Kristen Gambino IG # 0.03 10e3/ul Normal 0.00-0.03 [facility] Comment on above: Performed By: #### U AMIC #### [facility] [address] [place] [address] Dr. Kristen Gambino IG % 0.2 % Normal 0.0-0.[address] [facility] Comment on above: Performed By: #### U AMIC #### [facility] [address] [place] [address] Dr. Kristen Gambnio LYMPH # 3.5 103/ul Normal 1.2-3.[address] [facility] Comment on above: Performed By: #### U AMIC #### [facility] [address] [place] [address] Dr. Kristen Gambino Lymphocytes/100 WBC (Bld) 28.4 % Normal 20.5-60.0 [facility] Comment on above: Performed By: #### U AMIC #### [facility] [address] [address] [address] Kristen Gambino MANUAL DIFF REQ NO Normal [facility] Comment on above: Performed By: #### U AMIC #### [facility] [address] [address] [address] Kristen Gambino MCH (RBC) [Entitic mass] 27.8 pg Normal 26.7-34.0 [facility] Comment on above: Performed By: #### U AMIC #### [facility] [address] [address] [address] Kristen Gambino MCHC (RBC) [Mass/Vol] 33.5 g/dL Normal 29.9-35.2 [facility] Comment on above: Performed By: #### U AMIC #### [facility] [address] [place] [address] Dr. Kristen Gambino MCV (RBC) [Entitic vol] 82.9 fL Normal 81.0-99.0 [facility] Comment on above: Performed By: #### U AMIC #### [facility] [address] [address] [address] Kristen Gambino MONO # 0.9 103/ul Critically high 0.3-0.8 [facility] Comment on above: Performed By: #### U AMIC #### [facility] [address] [address] [address] Kristen Gambino Monocytes/100 WBC (Bld) 7.0 % Normal 1.7-12.[address] [facility] Comment on above: Performed By: #### U AMIC #### [facility] [address] [address] [address] Kristen Gambino NEUT # 7.8 103/ul Critically high 1.4-6.5 [facility] Comment on above: Performed By: #### U AMIC #### [facility] [address] [address] [address] Kristen Gambino Neutrophils/100 WBC (Bld) 62.4 % Normal 43.0-75.[address] [facility] Comment on above: Performed By: #### U AMIC #### [facility] [address] [address] [address] Kristen Gambino Platelet mean volume (Bld) [Entitic vol] 9.6 fL Normal 9.5-13.5 [facility] Comment on above: Performed By: #### U AMIC #### [facility] [address] [address] [address] Kristen Gambino PLT 409 103/ul Normal 150-[address] [facility] Comment on above: Performed By: #### U AMIC #### [facility] [address] [address] [address] Kristen Gambino RBC 4.97 106/ul Normal 4.20-5.40 [facility] Comment on above: Performed By: #### U AMIC #### [facility] [address] [address] [address] Kristen Gambino WBC 12.5 103/ul Critically high 4.0-11.0 [facility] Comment on above: Performed By: #### U AMIC #### [facility] [address] [address] HEAD WO CONon [...] TERRI LANDAVERDE Date: 2022-09-22 23:00 Normal [facility] PROF 14(COMP METB)on 023 Albumin [Mass/Vol] 3.5 g/dL Normal 3.4-5.0 [facility] Comment on above: Performed By: #### C VDTBH #### [facility] [address] [place] [address] Dr. Kristen Gambino Albumin/Globulin [Mass ratio] 0.8 {ratio} Normal [facility] Comment on above: Performed By: #### C VDTBH #### [facility] [address] [place] [address] Dr. Kristen Gambino ALP [Catalytic activity/Vol] 67 U/L Normal 46-116 [facility] Comment on above: Performed By: #### C VDTBH #### [facility] [address] [place] [address] Dr. Kristen Gambino ALT [Catalytic activity/Vol] 29 U/L Normal 14-59 [facility] Comment on above: Performed By: #### C VDTBH #### [facility] [address] [place] [address] Dr. Kristen Gambino Anion gap [Moles/Vol] 12.0 mmol/L Normal [facility] Comment on above: Performed By: #### C VDTBH #### [facility] [address] [place] [address] Dr. Kristen Gambino AST [Catalytic activity/Vol] 17 U/L Normal 15-37 [facility] Comment on above: Performed By: #### C VDTBH #### [facility] [address] [place] [address] Dr. Kristen Gambino Bilirubin [Mass/Vol] 0.4 mg/dL Normal 0.2-1.0 [facility] Comment on above: Performed By: #### C VDTBH #### [facility] [address] [place] [address] Dr. Kristen Gambino Calcium [Mass/Vol] 9.5 mg/dL Normal 8.5-10.1 [facility] Comment on above: Performed By: #### C VDTBH #### [facility] [address] [place] [address] Dr. Kristen Gambino Chloride [Moles/Vol] 101 mmol/L Normal 98-107 [facility] Comment on above: Performed By: #### C VDTBH #### [facility] [address] [place] [address] Dr. Kristen Gambino CO2 [Moles/Vol] 28.9 mmol/L Normal 21.0-32.0 [facility] Comment on above: Performed By: #### C VDTBH #### [facility] [address] [place] [address] Dr. Kristen Gambino Creatinine [Mass/Vol] 0.60 mg/dL Normal 0.55-1.02 [facility] Comment on above: Performed By: #### C VDTBH #### [facility] [address] [place] [address] Dr. Kristen Gambino EGFR-AF [place] ISLANDER >60 Normal >=60 [facility] Comment on above: Performed By: #### C VDTBH #### [facility] [address] [place] [address] Dr. Kristen Gambino EGFR-NON AF [place]ER >60 Normal >=60 [facility] Comment on above: Performed By: #### C VDTBH #### [facility] [address] [place] [address] Dr. Kristen Gambino Globulin (S) [Mass/Vol] 4.5 g/dL Normal [facility] Comment on above: Performed By: #### C VDTBH #### [facility] [address] [place] [address] Dr. Kristen Gambino Glucose [Mass/Vol] 108 mg/dL Critically high 74-106 T [facility] Comment on above: Performed By: #### C VDTBH #### [facility] [address] [address] [address] Kristen Gambino Potassium [Moles/Vol] 3.9 mmol/L Normal 3.5-5.1 [facility] Comment on above: Performed By: #### C VDTBH #### [facility] [address] [place] [address] Dr. Kristen Gambino Protein [Mass/Vol] 8.0 g/dL Normal 6.4-8.2 [facility] Comment on above: Performed By: #### C VDTBH #### [facility] [address] [place] [address] Dr. Kristen Gambino Sodium [Moles/Vol] 138 mmol/L Normal 136-145 [facility] Comment on above: Performed By: #### C VDTBH #### [facility] [address] [place] [address] Dr. Kristen Gambino Urea nitrogen [Mass/Vol] 10.0 mg/dL Normal 7.0-18.0 [facility] Comment on above: Performed By: #### C VDTBH #### [facility] [address] [place] [address] Dr. Kristen Gambino Urea nitrogen/Creatinine [Mass ratio] 16.7 mg/mg [facility] Comment on above: Performed By: #### C VDTBH #### [facility] [address] [place] [address] Dr. Kristen Gambino PAP ACOG PANEL 2: 30 to 65on 08-15-2022 . . Normal [facility] Comment on above: Result Comment: Perf ormed at: WB Performed By: #### [id number] #### [facility] [address] [place] [address] Dr. Kristen Gambino Age Gdln ACOG Testing 30-65 [facility] Comment on above: Performed By: #### [id number] #### [facility] [address] [place] [address] Dr. Kristen Gambino DIAGNOSIS: Comment Normal [facility] Comment on above: Result Comment: NEGA TIVE FOR INTRAEPITHELIAL LESION OR MALIGNANCY. Performed at: WB Performed By: #### [id number] #### [facility] [address] [place] [address] Dr. Kristen Gambino HPV Aptima Negative Normal Negative [facility] Comment on above: Result Comment: This nucleic acid amplification test detects fourteen high-risk HPV types (16,18,31,33,35,39,45,51,52,56,58,59,66,68) without differentiation. Performed at: =G Performed By: #### [id number] #### [facility] [address] [place] [address] Dr. Kristen Gambino HPV Genotype Reflex Comment Normal [facility] Comment on above: Result Comment: Crit eria not met, HPV Genotype not performed. Performed at: WB Performed By: #### 4 [id number] #### [facility] [address] [place] [address] Dr. Kristen Gambino Methodology: Comment Normal [facility] Comment on above: Result Comment: This liquid based ThinPrep(R) pap test was screened with the use of an image guided system. Performed at: WB Performed By: #### [id number] #### [facility] [address] [place] [address] Dr. Kristen Gambino Note: Comment Normal [facility] Comment on above: Result Comment: The Pap smear is a screening test designed to aid in the detection of premalignant and malignant conditions of the uterine cervix. It is not a diagnostic procedure and should not be used as the sole means of detecting cervical cancer. Both false-positive and false-negative reports do occur. . Performed at: WB Performed By: #### [id number] #### [facility] [address] [place] [address] Dr. Kristen Gambino Performed by: Comment Normal [facility] Comment on above: Result Comment: Nila Romo, Printed Circuit Board Pcb Designer (ASCP) Performed at: WB Performed By: #### [id number] #### [facility] [address] [place] [address] Dr. Kristen Gambino Specimen adequacy: Comment Normal [facility] Comment on above: Result Comment: Sati sfactory for evaluation. Endocervical and/or squamous metaplastic cells (endocervical component) are present. Performed at: WB Performed By: #### [id number] #### [facility] [address] [address] [address] Kristen Gambino US PELVIS AND TRANSVAGon [...] by: TERRI DELANEY Date: 2022-08-14 07:35 Normal [facility] CULTURE URINEon 08-10-2022 CULTURE URINE Isolate 1 Pseudomonas aeruginosa <10,000 cfu/mL of ORGANISM 1 Pseudomonas aeruginosa ANTIBIOTIC M.I.C RX STATUS Piperacillin/Tazobactam <=4 S F Ceftazidime 2 S F Imipenem 2 S F Amikacin <=2 S F Gentamicin <=1 S F Tobramycin <=1 S F Ciprofloxacin <=0.25 S F Levofloxacin 0.25 S F Normal [facility] Comment on above: Performed By: #### U AMIC #### [facility] [address] [address] [address] Kristen Gambino MG MAMM SCREEN 3D ARCHIE CADon 03-06-2022 MG MAMM SCREEN 3D ARCHIE CAD Patient: GLADIS MICHAEL Exam Date: 03/06/2022 : 1975 Gender:F Ordering : JOVITA WAITE [facility] Admission #: [id number] Family : Order #: [id number] CLICK HERE TO VIEW EXAM RADIOLOGY REPORT [...] brain cancer at age 41. LOCATION: [facility] BREAST COMPOSITION: Scattered areas fibroglandular density. [...] MD on 03/06/2022 at 14:25 Normal [facility] Covid-19 PCR (CVDTBH)on 01-07 SARS-CoV-2 (COVID-19) RNA GARTH+probe Ql (Unsp spec) Not detected Normal NOT DETECTED [facility] Comment on above: Result Comment: This test is not yet approved or cleared by the [place] FDA. When there are no FDA-approved or cleared tests available, and other criteria are met, FDA can make tests available under an emergency access mechanism called an Emergency Use Authorization (EUA). The EUA for this test is supported by the Folder Machine Adjuster of Health and Human Service's (HHS's) declaration [...] SARS-CoV-2. Performed By: #### C VDTB #### [facility] [address] [place] [address] Dr. Kristen Gambino CULTURE URINEon 01-19-2022 CULTURE [...] F Tetracycline >=16 R F Normal [facility] Comment on above: Performed By: #### U AMIC #### [facility] [address] [place] [address] Dr. Kristen Gambino CBC AUTO DIFFon 01-17-2022 BASO # 0.2 103/ul Critically high 0.0-0.1 [facility] Comment on above: Performed By: #### C BC #### [facility] [address] [place] [address] Dr. Kristen Gambino Basophils/100 WBC (Bld) 1.3 % Normal 0.2-2.[address] [facility] Comment on above: Performed By: #### C BC #### [facility] [address] [place] [address] Dr. Kristen Gambino EO # 0.3 103/ul Normal 0.0-0.[address] [facility] Comment on above: Performed By: #### C BC #### [facility] [address] [place] [address] Dr. Kristen Gambino Eosinophils/100 WBC (Bld) 1.9 % Normal 0.9-7.0 [facility] Comment on above: Performed By: #### C BC #### [facility] [address] [place] [address] Dr. Kristen Gambino Erythrocyte distribution width (RBC) [Ratio] 13.4 % Normal 11.0-15.0 [facility] Comment on above: Performed By: #### C BC #### [facility] [address] [place] [address] Dr. Kristen Gambino Hematocrit (Bld) [Volume fraction] 41.3 % Normal 36.0-48.0 [facility] Comment on above: Performed By: #### C BC #### [facility] [address] [place] [address] Dr. Kristen Gambino Hemoglobin (Bld) [Mass/Vol] 13.6 g/dL Normal 12.0-16.0 [facility] Comment on above: Performed By: #### C BC #### [facility] [address] [place] [address] Dr. Kristen Gambino IG # 0.07 10e3/ul Critically high 0.00-0.03 [facility] Comment on above: Performed By: #### C BC #### [facility] [address] [place] [address] Dr. Kristen Gambino IG % 0.4 % Normal 0.0-0.5 [facility] Comment on above: Performed By: #### C BC #### [facility] [address] [place] [address] Dr. Kristen Gambino LYMPH # 3.6 103/ul Normal 1.2-3.[address] [facility] Comment on above: Performed By: #### C BC #### [facility] [address] [place] [address] Dr. Kristen Gambino Lymphocytes/100 WBC (Bld) 22.4 % Normal 20.5-60.0 [facility] Comment on above: Performed By: #### C BC #### [facility] [address] [place] [address] Dr. Kristen Gambino MANUAL DIFF REQ NO Normal [facility] Comment on above: Performed By: #### C BC #### [facility] [address] [place] [address] Dr. Kristen Gambino MCH (RBC) [Entitic mass] 27.8 pg Normal 26.7-34.0 [facility] Comment on above: Performed By: #### C BC #### [facility] [address] [place] [address] Dr. Kristen Gambino MCHC (RBC) [Mass/Vol] 32.9 g/dL Normal 29.9-35.2 [facility] Comment on above: Performed By: #### C BC #### [facility] [address] [place] [address] Dr. Kristen Gambino MCV (RBC) [Entitic vol] 84.5 fL Normal 81.0-99.0 [facility] Comment on above: Performed By: #### C BC #### [facility] [address] [place] [address] Dr. Kristen Gambino MONO # 1.1 103/ul Critically high 0.3-0.8 [facility] Comment on above: Performed By: #### C BC #### [facility] [address] [place] [address] Dr. Kristen Gambino Monocytes/100 WBC (Bld) 7.0 % Normal 1.7-12.0 [facility] Comment on above: Performed By: #### C BC #### [facility] [address] [place] [address] Dr. Kristen Gambino NEUT # 10.7 103/ul Critically high 1.4-6.5 [facility] Comment on above: Performed By: #### C BC #### [facility] [address] [place] [address] Dr. Kristen Gambino Neutrophils/100 WBC (Bld) 67.0 % Normal 43.0-75.0 [facility] Comment on above: Performed By: #### C BC #### [facility] [address] [place] [address] Dr. Kristen Gambino Platelet mean volume (Bld) [Entitic vol] 9.3 fL Critically low 9.5-13.5 [facility] Comment on above: Performed By: #### C BC #### [facility] [address] [place] [address] Dr. Kristen Gambino PLT 502 103/ul Critically high 150-450 [facility] Comment on above: Performed By: #### C BC #### [facility] [address] [place] [address] Dr. Kristen Gambino RBC 4.89 106/ul Normal 4.20-5.40 [facility] Comment on above: Performed By: #### C BC #### [facility] [address] [place] [address] Dr. Kristen Gambino WBC 16.0 103/ul Critically high 4.0-11.0 [facility] Comment on above: Performed By: #### C BC #### [facility] [address] [place] [address] Dr. Kristen Gambino PROF 14(COMP METB)on 022 Albumin [Mass/Vol] 4.0 g/dL Normal 3.4-5.0 [facility] Comment on above: Performed By: #### C MP #### [facility] [address] [place] [address] Dr. Kristen Gambino Albumin/Globulin [Mass ratio] 0.9 {ratio} Normal [facility] Comment on above: Performed By: #### C MP #### [facility] [address] [place] [address] Dr. Kristen Gambino ALP [Catalytic activity/Vol] 72 U/L Normal 46-[address] [facility] Comment on above: Performed By: #### C MP #### [facility] [address] [place] [address] Dr. Kristen Gambino ALT [Catalytic activity/Vol] 45 U/L Normal 14-59 [facility] Comment on above: Performed By: #### C MP #### [facility] [address] [place] [address] Dr. Kristen Gambino Anion gap [Moles/Vol] 12.4 mmol/L Normal [facility] Comment on above: Performed By: #### C MP #### [facility] [address] [address] [address] Kristen Gambino AST [Catalytic activity/Vol] 31 U/L Normal 15-37 [facility] Comment on above: Performed By: #### C MP #### [facility] [address] [address] [address] Kristen Gambino Bilirubin [Mass/Vol] 0.6 mg/dL Normal 0.2-1.0 [facility] Comment on above: Performed By: #### C MP #### [facility] [address] [address] [address] Kristen Gambino Calcium [Mass/Vol] 9.2 mg/dL Normal 8.5-10.1 [facility] Comment on above: Performed By: #### C MP #### [facility] [address] [address] [address] Kristen Gambino Chloride [Moles/Vol] 101 mmol/L Normal 98-107 [facility] Comment on above: Performed By: #### C MP #### [facility] [address] [address] [address] Kristen Gambino CO2 [Moles/Vol] 26.3 mmol/L Normal 21.0-32.0 [facility] Comment on above: Performed By: #### C MP #### [facility] [address] [address] [address] Kristen Gambino Creatinine [Mass/Vol] 0.74 mg/dL Normal 0.55-1.02 [facility] Comment on above: Performed By: #### C MP #### [facility] [address] [address] [address] Kristen Gambino EGFR-AF [place] >60 Normal >=60 [facility] Comment on above: Performed By: #### C MP #### [facility] [address] [address] [address] Kristen Gambino EGFR-NON AF [place] >60 Normal >=60 [facility] Comment on above: Performed By: #### C MP #### [facility] [address] [address] [address] Kristen Gambino Globulin (S) [Mass/Vol] 4.4 g/dL Normal [facility] Comment on above: Performed By: #### C MP #### [facility] [address] [place] [address] Dr. Kristen Gambino Glucose [Mass/Vol] 106 mg/dL Normal 74-106 [facility] Comment on above: Performed By: #### C MP #### [facility] [address] [place] [address] Dr. Kristen Gambino Potassium [Moles/Vol] 3.7 mmol/L Normal 3.5-5.1 [facility] Comment on above: Performed By: #### C MP #### [facility] [address] [place] [address] Dr. Kristen Gambino Protein [Mass/Vol] 8.4 g/dL Critically high 6.4-8.2 [facility] Comment on above: Performed By: #### C MP #### [facility] [address] [place] [address] Dr. Kristen Gambino Sodium [Moles/Vol] 136 mmol/L Normal 136-145 [facility] Comment on above: Performed By: #### C MP #### [facility] [address] [place] [address] Dr. Kristen Gambino Urea nitrogen [Mass/Vol] 14.0 mg/dL Normal 7.0-18.0 [facility] Comment on above: Performed By: #### C MP #### [facility] [address] [place] [address] Dr. Kristen Gambino Urea nitrogen/Creatinine [Mass ratio] 18.9 mg/mg Normal [facility] Comment on above: Performed By: #### C MP #### [facility] [address] [place] [address] Dr. Kristen Gambino UA RANDOM W/MICROSCOPICon BACTERIA TRACE Abnormal NONE SEEN [facility] Comment on above: Performed By: #### U AMIC #### [facility] [address] [place] [address] Dr. Kristen Gambino Bilirubin Ql (U) Negative Normal NEGATIVE [facility] Comment on above: Performed By: #### U AMIC #### [facility] [address] [address] [address] Kristen Gambino CA OX CRYSTALS MODERATE Normal [facility] Comment on above: Performed By: #### U AMIC #### [facility] [address] [address] [address] Kristen Gambino CAST NONE SEEN Normal NONE SEEN [facility] Comment on above: Performed By: #### U AMIC #### [facility] [address] [place] [address] Dr. Kristen Gambino Clarity (U) CLEAR Normal CLEAR [facility] Comment on above: Performed By: #### U AMIC #### [facility] [address] [place] [address] Dr. Kristen Gambino Color (U) YELLOW Normal YELLOW [facility] Comment on above: Performed By: #### U AMIC #### [facility] [address] [place] [address] Dr. Kristen Gambino Crystals LM Nom (Urine sed) SEEN Abnormal NONE SEEN [facility] Comment on above: Performed By: #### U AMIC #### [facility] [address] [place] [address] Dr. Kristen Gambino Epithelial cells LM Ql (Urine sed) MODERATE Abnormal NONE SEEN /RARE [facility] Comment on above: Performed By: #### U AMIC #### [facility] [address] [address] [address] Kristen Gambino Glucose Ql (U) Negative Normal NEGATIVE [facility] Comment on above: Performed By: #### U AMIC #### [facility] [address] [address] [address] Kristen Gambino Hemoglobin Ql (U) Negative Normal NEGATIVE [facility] Comment on above: Performed By: #### U AMIC #### [facility] [address] [place] [address] Dr. Kristen Gambino Ketones Ql (U) Negative Normal NEGATIVE [facility] Comment on above: Performed By: #### U AMIC #### [facility] [address] [place] [address] Dr. Kristen Gambino LEUKOCYTES SMALL Abnormal NEGATIVE [facility] Comment on above: Performed By: #### U AMIC #### [facility] [address] [place] [address] Dr. Kristen Gambino MUCOUS SMALL Abnormal NONE SEEN [facility] Comment on above: Performed By: #### U AMIC #### [facility] [address] [address] [address] Kristen Gambino Nitrite Ql (U) Negative Normal NEGATIVE [facility] Comment on above: Performed By: #### U AMIC #### [facility] [address] [place] [address] Dr. Kristen Gambino pH (U) 5.0 [pH] Normal 5-[address] [facility] Comment on above: Performed By: #### U AMIC #### [facility] [address] [place] [address] Dr. Kristen Gambino RBC NONE SEEN Abnormal 0-[address] [facility] Comment on above: Performed By: #### U AMIC #### [facility] [address] [place] [address] Dr. Kristen Gambino SPEC GRAVITY >=1.030 Abnormal 1.005-<=1.0 25 [facility] Comment on above: Performed By: #### U AMIC #### [facility] [address] [place] [address] Dr. Kristen Gambino UA PROTEIN Negative Normal NEGATIVE/ TRACE [facility] Comment on above: Performed By: #### U AMIC #### [facility] [address] [place] [address] Dr. Kristen Gambino Urobilinogen Qn (U) 0.2 {Sonya'U}/dL Normal 0.2 - 1. 0 [facility] Comment on above: Performed By: #### U AMIC #### [facility] [address] [place] [address] Dr. Kristen Gambino WBC 5-10 Abnormal NONE SEEN [facility] Comment on above: Performed By: #### U AMIC #### [facility] [address] [address] [address] Kristen Gambino XR TSPINE 2 VIEWSon [...] by: TERRI DELANEY Date: 2022-01-11 07:20 Normal [facility] Operative Reporton Operative Report [id number]:127 Normal [facility] Operative Report [id number]#[id number]:127 Normal [facility] Physician Referralon 022 Physician Referral [id number]#[id number]:127 Normal [facility] Coding Summary.on 10-30-2021 Coding Summary. CD:[id number] Gh0bWw+ PGhlYWQ+IZ5SIPYcZ65yiXMmbJ6 TQ8tETC7XLAUZLIMIGN9CWF8mtZ Y4ZNduQ5VakwEe AjlmfJXqZC63HTp0JKU6zQmlFNo txJ1peYJgK9m5EcZlYV50sH23NT rlBJChQgU5EpGmejpvaQPg S6njXgZgoEEwTih+PHRhYmxlIHd rOLJnHRasMFGcBkZbfTtkRN8vMg 9yZGVyLWNvbGxhcHNlOiBj p0vmBZOpSAmpTZ1blGoeH2EheYF 9BSHee6a4Uj05hTX+UOQlRTT9mC qlCEhiq881KgOdt3jyOAO7 yEQqWHjdZYK0P83wh5E6OLBiKAH uREU0vML3nG7beAadhbfdY6LurB ChRaA6GBO8bQNjdX4bgBvp cjiyhE4kKxy+E54HLM6NCEBISY1 BWyo8B6OeXlrvlOH+XE22OJBfEB 07cQRgeFWmo9kjpRg1TfRd HMIyCZG5hNyeXImln7IfMUZfF79 dgYMhw3L2XFGojIygkNMhEhYuxQ Q0kY6uUXgnlojvg3ilfylt Dvxig6zbex30tU32Q24jZCswBXQ yGTS1PAEjAJJpzZrmnv7cnK0tGf 8+NEbld8yzy0pwkVb3FlQe XCUiedFzwBngKCX3g9MxVr80Y7V gzQbqi8XhZkp2db69vLFln1D1dT K6IAthFVQlkV2fDLoxEeC8 DMYnRgVmdM07xQBzKPncNu0tcJc wgGplSK4hUMGfdpwaHCCafB0aJA WwdCNbeHtfLL8tAMLjuzci r768BqYgPXE5KRBgqNAcI8MgzI9 jTzJzJKQfSTJpO4HcwFKxVKssO3 77IAodEvA5YANcmpDrE8Bq SSPvdNtxXoX7g3V2Db2Sj4Bxtzu gQPP0KOguKCC9FcI8XbYxUaK8Z1 VgJab5LIIcpEmdQL9xC8Ve SANxobitdwktlAR1WIIdMQKddG0 5wTSdFWndWl8yv5M7f478SSJkRV FqnI05Bp2kkOlsSJCtnQDC vK2tfhwww0jutcmsVoMlOECcOSs 4BKl9DIUauYobUcUwDCU5OzT5HW K2cUDjmZ9wgWkqrmywrA2b Oyc+R73hpE5nTJO7IIT0pqinYQZ zmyHsTW71XX32V8CsYdpgyVAkcL U+VIJysjOrbGcqDH4nFyUm h3hbk7PrQKziN7CnBLCwEOyjEiq 9QNZzABS6tVW6uS5bEEQkWMmcn3 C8pPU8H3ScpvStem3ll4eb VVIyOUayL67zjTXhh0M1ERYwkUC 3NMRuvAgsBfKhmH95Tva+PGNvbG btb8ObJdahk8myu8ixsMw2 TxWrOXXuwyAvxWujJVP5d0OeLh9 9V87mHNckGNOcVPCtJWLmBCSthG jbrb3xvM4gVs5+PGNvbCB3 tDV3hP4wYAXyIuM2SOfsB104BpQ flJDhAahqg0ukr8ipuLu6RbZyYO IwrgEbhZyrDKL5a6HoCy63 K70tCDgvXBIqKPTuEEFjYDHyaQb uuf2vdX6sPy8+AA6fj5uxdo27aD 48dHI+ZHSvMZV1gCiwDImv LJFodH2lNOstIaX7LTFjUoRygK1 3nUPzYBxfFb8nyUvliLgkQL7dNA Emrakqc828BoXjx5ffGCFx xYRuDInwYNQ8Z74av8I7UQKuDZV aBYO7cFO8lN9cnEzighgqvAIrbA rhosGxuIklLRekCBlzF407 IHRvcDsnPlBhdGllbnQgTmFtZTo 3X9QgVkg5JUClsRzpMW9vrUEmLJ zkMx9rxQzbuSzzQC9jEESz mvbub954YoZsd5nvQTEckRHrFXi jMNP1S76zx5S1HINcAIEdOAP4pM Q5aU9mzHcgfonqgUTquBoy uhZpaNprTJvvKCkaG006KIAhsCe zOyIlfyDcIPOjfCL9VC03AI21kI Oky1A5bQB5C2PnOHZbqtus dnezzBM3DQPgUGZyhQ13Tj4zuLm lFv7kXJWlKAM1PKMnrJMaU9IruA 9lHuYbUSYeSLWoH3EnzEVz TXnjL693IPsuJsG7FNHgxuGeD1P zXQZymGnxIsG5y9Q5Vk2VG6H1OS 28TL17fWGrk0U7wWL3D3Fd GWVtlcidnsmomXO5ZSIfPUInwP7 7Ow3stAfjBm6wGWMtFNT6BQSmyG UfN1XyqZ1gDhJlLRKqVQRz I7TxjKTiDNzsU056PZnmTeX3AYO gyuQiM7ClYIOlgZkgIaL8b1C9Mz 4ZCQq4GW08QY55aEPol0Y4 kAT4W1YjLUYrvslypnrsuYA8APT wGSArzR73Ry6hpKnoBj3zSWZtAO J3OXOysBCxD6VaeC0xGkYl LZGjYRTuU6LkkDXnIFneL427GJs fVqB7BTZwcrLsY6WzHNIfhIqgKz H0a1D0Eq6DRHMuVK24UOP7 bNA7LC25AZ27I8IePbfimBXhbDG +PHRhYmxlIHdpZHRoPScxMDAlJy TotNbhCM4iOf5qPBWnVHIw qAgdkAHeLuMhv5afFCWwYWbvZX6 trJkiH6AlnFE9NZUef9l0Ue34V9 0vB2VdsGX+ZTVrwSB3qQK6 dN5pBnHgViV3DAndB851OuNwiSA iZqskc2ctw7myhPq2SzN1WHBivx VvkRbzXCE0g7CgBm63X77u IHdpZHRoPSIxNSUiIHZhbGlnbj0 lyB5jHn2+UTEwjWB3eOA4aA2yYs NfUjP6TGqvQ070AjDkgKCx Uoxjh0dfx7jdpPf6IzWtFJYipeS hqDdwMHI3w7LjFj01E2QkyDcdh0 IeYka1ot96gZLmo7S7qBV9 S3BqPFPfwogugVHvmSahUP1aRTZ wrebrHVDnlQ0vJXTtI4b2DlRxZp Y1BYwqV7AaekX1VECfaWPc LYljLTX6R83ui4P8LZWhJBTwRKF 6lNV3yF8ynTlqoriteGTkiNwadu FfuXodSIleEWwnF415WNYh fKxfRHFrvV0dGVCvnWAppXyqSB3 wNTBpbjsnPlZPTExNQVIsIEVMSV eJGiZYYTVDSO53PJ63pEJr q4I8dSQ7X8FuCONbxnwazljqsZP 1GUDqZAJqjV47hRJeLJlmRl9gv9 K7r504QOIkOOWwbB86Xw6d nAogYFMocZBLqT6qlbxjc0bsuyu tEgNlXWLeOCs6BHf9GHSjaUrjNm GyYVR5PxI5OSC9mOJcfU4g tGiooebtfM6aKjd+MDEvMDUvMTk 3NjwvdGQ+CNAuWHM7iErfUQzvRV NdvV6aWIUsI7z5PpFkWjR8 ZStzV7FkEYJvluizGl14wM8iPwV lHsD6GPbbO4XtjiN8WRGzrCNiML yiEEH4G33cr4X0GJHtZDGh CLG0dHN1jY0uzGrvuoxuwZBpkIm pruJyeOziLLijKBmyO590WGXekH mwQvD9TWaoBKHxJC01FU86 eJZna5N6rXP5R6NfATHzkyrcxmf ydYO1QFPxJYQklC16fZEtOUbhKr 0tu4D0o141HMJbBAKrkX79 Di7qhBvhXTQhlPIKnY5xyzhww9q nimuvCpUrEKMgASd5BUf3RFLgeU pdUtVaOKU2AsI8RFU7jKUw pQ4ggPqakxuclC4yPne+RmVtYWx bZQ96OT10gBFcb4C2cBS3S9GiTP XpklqiuyebvZQ1XSQfEHYx dT08oNBbZZmdRc3nc1T7b761GLA eKJYirX97Zn4hgTbpPEVlsHUBrI 4uynodg4dsgvmnThUzWKOd VHw9XBh3EXDhkRhyLaSuXUL8TkH 8AMQ9jOOdtX3ukXmfzetkeQ5aCg c+LT8vhxrgloT7TI25PC41 U2ZcTiiqyGKrhTD+PHRhYmxlIHd sOIMjFCwwXVCoBqEdwEoiBA7wBy 9yZGVyLWNvbGxhcHNlOiBj i3clJCQdXNisTN0ghFdiY9FisOI 6QACac1g3Bp06J31mJ1SbeCC+PG DlsBE1gKK6nT0kTvDqBhX3 UWqtS506DnZfiMPlBohmb9qcs8w dnOm3AoUpUFMwocNvxLqcYDR1o2 NkDa43E12zPHouVZRzREEw VTYxIAMgvLcpzm4eyQ6hUf9+PGN xeCW2hCY1rT2nCwZcTkT4WYhrJ7 97VaGjaBHcFnxaM99qH2Tj dXA+RLYxKwm1RLLseJepHC5zbWB oYUyeRx9cQAO0CgEuHyWwPGeqU6 ZyCHMihzmvhsokyBU7VJYy FGMwjD59Ah6rtVdzXm9eGWWgVBH 0LVJzrMUmT6KgtK6iIkWwMUNaAY HlQ2WmjDXuUDioA753QAjz RrQ6IQTxodEmE4MaSEVipQkjFaY 4m6L9Uu6QoFklkJRkMU3jEuYgOF d2E8UkDew7EOBbzLkrBM6u xBIiOFmnNf3mhUijxSvpEG8tDZW pwleqg968FtBlq3syCARyoCNpCM zcHXM5T58nu6Z9IGBrHSHo LJS4gUL3aQ2gtCbpbtsfyTLcwWz xwrYdgCskTUmzGWxsO718TYRrqC ulIaHRFve7F6MlIrp1NZXm oSjiUE2emNSzCGxyGg7jxUqcgOs xSD7lXTPcrzzbg353IuBdq8ufBY LoxNUyTBspTEP7I50fu6U5 CJNsLNHuGDB6xFO9tK5gwUhsltv gbGVmdDsgdmVydGljYWwtYWxpZ2 95ZXZrlIqmDe2NUda8Y4Sh Bwo1MMCdjRnqNJ2szPKeKZzzAi3 nbMnwcQvvBK0aVEVnqhwob226Ne Xgr0zmJORarFXbKAxwAZO3 Z45ro0G3YGQeOILwCAY6uQC7pB1 hbGlnbjogbGVmdDsgdmVydGljYW eoWNpxD252IBIveVkwEfEj eWVyOjwvdGQ+NR05by86G1PpKwb qMyb4YETmZGI7yAB7fC5lWTZiIR edp2H3vMH6X0JwjcPine0p b2xs (more content not included)... Normal [facility] CBC AUTO DIFFon 10-26-2021 BASO # 0.1 103/ul Normal 0.0-0.1 [facility] Comment on above: Performed By: #### C BC #### [facility] [address] [place] [address] Dr. Kristen Gambino Basophils/100 WBC (Bld) 1.0 % Normal 0.2-2.0 [facility] Comment on above: Performed By: #### C BC #### [facility] [address] [place] [address] Dr. Kristen Gambino EO # 0.1 103/ul Normal 0.0-0.7 [facility] Comment on above: Performed By: #### C BC #### [facility] [address] [place] [address] Dr. Kristen Gambino Eosinophils/100 WBC (Bld) 1.0 % Normal 0.9-7.0 [facility] Comment on above: Performed By: #### C BC #### [facility] [address] [place] [address] Dr. Kristen Gambino Erythrocyte distribution width (RBC) [Ratio] 13.2 % Normal 11.0-15.0 [facility] Comment on above: Performed By: #### C BC #### [facility] [address] [place] [address] Dr. Kristen Gambino Hematocrit (Bld) [Volume fraction] 42.5 % Normal 36.0-48.0 [facility] Comment on above: Performed By: #### C BC #### [facility] [address] [place] [address] Dr. Kristen Gambino Hemoglobin (Bld) [Mass/Vol] 13.6 g/dL Normal 12.0-16.0 [facility] Comment on above: Performed By: #### C BC #### [facility] [address] [place] [address] Dr. Kristen Gambino IG # 0.05 10e3/ul Critically high 0.00-0.03 [facility] Comment on above: Performed By: #### C BC #### [facility] [address] [place] [address] Dr. Kristen Gambino IG % 0.4 % Normal 0.0-0.[address] [facility] Comment on above: Performed By: #### C BC #### [facility] [address] [place] [address] Dr. Kristen Gambino LYMPH # 2.5 103/ul Normal 1.2-3.[address] [facility] Comment on above: Performed By: #### C BC #### [facility] [address] [address] [address] Kristen Gambino Lymphocytes/100 WBC (Bld) 20.2 % Critically low 20.5-60.[address] [facility] Comment on above: Performed By: #### C BC #### [facility] [address] [place] [address] Dr. Kristen Gambino MANUAL DIFF REQ NO Normal [facility] Comment on above: Performed By: #### C BC #### [facility] [address] [address] [address] Kristen Gambino MCH (RBC) [Entitic mass] 27.2 pg Normal 26.7-34.[address] [facility] Comment on above: Performed By: #### C BC #### [facility] [address] [place] [address] Dr. Kristen Gambino MCHC (RBC) [Mass/Vol] 32.0 g/dL Normal 29.9-35.[address] [facility] Comment on above: Performed By: #### C BC #### [facility] [address] [place] [address] Dr. Kristen Gambino MCV (RBC) [Entitic vol] 85.0 fL Normal 81.0-99.[address] [facility] Comment on above: Performed By: #### C BC #### [facility] [address] [place] [address] Dr. Kristen Gambino MONO # 0.7 103/ul Normal 0.3-0.[address] [facility] Comment on above: Performed By: #### C BC #### [facility] [address] [place] [address] Dr. Kristen Gambino Monocytes/100 WBC (Bld) 5.7 % Normal 1.7-12.[address] [facility] Comment on above: Performed By: #### C BC #### [facility] [address] [place] [address] Dr. Kristen Gambino NEUT # 9.0 103/ul Critically high 1.4-6.5 [facility] Comment on above: Performed By: #### C BC #### [facility] [address] [place] [address] Dr. Kristen Gambino Neutrophils/100 WBC (Bld) 71.7 % Normal 43.0-75.0 [facility] Comment on above: Performed By: #### C BC #### [facility] [address] [address] [address] Kristen Gambino Platelet mean volume (Bld) [Entitic vol] 9.2 fL Critically low 9.5-13.[address] [facility] Comment on above: Performed By: #### C BC #### [facility] [address] [address] [address] Kristen Gambino PLT 413 103/ul Normal 150-[address] [facility] Comment on above: Performed By: #### C BC #### [facility] [address] [address] [address] Kristen Gambino RBC 5.00 106/ul Normal 4.20-5.[address] [facility] Comment on above: Performed By: #### C BC #### [facility] [address] [address] [address] Kristen Gambino WBC 12.5 103/ul Critically high 4.0-11.0 [facility] Comment on above: Performed By: #### C BC #### [facility] [address] [place] [address] Dr. Kristen Gambino PREG QUANT HCGon 10-26-2021 HCG QUANT 1 mIU/mL Normal [facility] Comment on above: Performed By: #### P REGQNT #### [facility] [address] [place] [address] Dr. Kristne Gambino HCG RANGE SEE BELOW Normal [facility] Comment on above: Result Comment: 5-50 0-1 WEEK 40-300 1-2 WEEKS 100-1,000 2-3 WEEKS 500-6,000 3-4 WEEKS 5,000-200,000 1-2 MONTHS 10,000-100,000 2-3 MONTHS 3,000-50,000 2ND TRIMESTER 1,000-50,000 3RD TRIMESTER Performed By: #### P REGQNT #### [facility] [address] [place] [address] Dr. Kristen Gambino Coding Summary.on 10-22-2021 Coding Summary. CD:[id number] Gh0bWw+ PGhlYWQ+BQ9ULNZzD36keJPzaE6 JW7nEYH4MQJZKBSPCPP4RKH6hhR W9BBadM5QmwtTp TtzlhLHvIZ95BIo4DHY6eKiaXRp qpN0ssIWcL1q7XwLlPQ20pA15EF riJYGmDxX0KlNpqnlltKYi Y5huStOdzLHhAcv+PHRhYmxlIHd oRFYpDTfjIOXcLyYogMdcVQ9zZd 9yZGVyLWNvbGxhcHNlOiBj x2vwZIVrQKohFJ0leGraZ3ElvBC 8CLIqy7k7Ay36fZI+LBKaUVD6tZ slRAmwd096BgKkr4xdPML0 wHXiQXnkERB3V07xj1J4XEEpGNW uIYE8wHX3cB6vcYeotspcQ9RmkF QvSfZ4DNA6vSZbaL8scRyr gygjhR0tJhf+P23DPD8KBSEWQP3 DJpp6R7ShYennyIS+TT04CRXlRZ 68dNOuzVAjm0maxZx0BrYp QNCrQPS1hQknMHrpy9VkZDQhK39 cyPOfx2B9LQCwmCbhtLCjAsNpjP B3pQ3rPBydoijwp2nhtabv Gocke6yaqc38vO74G75iMIcsDXR cWOX8EYZpTVUltOnzva8byD0tNb 8+JBvqa5fau6qlrPw0EnIb RMZbvhAhtHxoVQO1u9KjQe69R6J bjPnds9PwNsx1bl35uRYra1B9mA W7ZIgmJJSdmX9yBEyaPdZ3 TBKoAqNlsH86xVZzQYdqGw0mkTv saYolTP2wWTWbmsqzBDLngA4nYD GzhKBufUdtTD2yDLMcunev s257RxDwLTK1PISaxEYhZ5BhgM4 aBjXtTQVdBRFcK6JldETfZOmyD7 59PBcsHnQ2LGFcqvIgX1Ls SCUzcAmdYeN4i3A3Ap7Cm4Ixbqq gAML3JSsiKAM6DmH0BkMvMdV7L5 CjPlp2HSFnfUzcOT6fF9Nb IGCcfkktdqitoXJ9NFHpJXJbxD7 3tPIxFFmkYv1tz0Z5v828HEXhAE GmqY83Of2xfDyyFIJcdLGJ bY1muzoww2okndleWoPhKZNfEEd 4QHw3SIYttApuPpNlXGM9MbG7LB F5mYUqnM8oyXgzfwvxkV2o Oyc+J29akN2jDNO0ZZW6yfzjWTY ryjZqYL54AZ58M5EgNhghoKSwhY U+DOAnucAhsGdiXN6mRoIx a9cxa5RiIByuE3KbYVXqCNenOgd 8IIJmJEM0nHS8eL3yIVLzQElia9 B8oBM2M9PlreUxzu0ba1er NFFmTRkbK53cdCXrn7A0NGLqgZY 5VFNhqFgcPoYbcN49Xgx+PGNvbG xya9EeBysoz2qpe4kabKx2 LqUpJHCaneIjgRrjUEC7c1AyQb1 8K57zTEaqYINxTXNfUDQvRCGucO pgso7rdE8xCu2+PGNvbCB3 uEA4mZ0kLTFgMsB4KFcrP342TyJ ncWFhSxxck8kzz7nayMn1GiPpTN EmzuJtzYhqAWR6l3SkJy59 J24bJSyqHBShAXHcNUFlZNTkiXk ndx2seW5iUk4+UJ1es4uoip18cB 48dHI+GVAsQSU3hHfvDGzm GLVfiO5lVJcmSjN9HSPhCmKrwC8 3iUJbKYpzXk2zcUgvyUlrKG3fNG Zpohfqj384AtCqb3bpUGRd fEEyCPqkTYZ3S06ue2O2WRLmSOE fLSQ0jEH2cZ3hcGjzssouxFWrmI yjpzZpwRwsAElpZVutV820 IHRvcDsnPlBhdGllbnQgTmFtZTo 8T3UvRpg2UJXkeGszLD7ngRSjNB cpAj7esFmzhUjgCO1mSSBh qybbk285RrJxp0fpQIGacRCsMUl cTJL2O88fg4L3EGLvYTExZSQ0iW M8eM8bvFwdogimsERcrYue zsSbxWenZKftLDroB978PUUirFx fDtOpohEtJXVrjJI5GB87VW02oN Ugq4A2cLU2E0KpAICkpkvi dzvezSP5WFXiKIUxnV21Gm1vuKu pRw9aFSMrBMI4KJQubMQmE4HyfU 0kSrKuZOYrLOChG9YymFRa VLztI701QBtiXhO5OVXmnsToT1G tNBVfrQfiQeG1h1X0Xs5BK8H4SG 09AZ20pBYrb8Q9lDR0E1Gz YHMszcideuguuBS8ZKEdLYFipR3 7Vo0cjXorKc8rBNMfVPI7JAJagU NeW7WhdH9pZdMsYDDrRMZb H0EzhVJaAGdwC205ZAgwDyC0YFX disMvP0RgIRJywCjrHmP6x4G7Wo 2CTUa7RE30SO80sHOxe0O2 wTL4H0BrDPUvegnpzerzdEG0OLV wICIafO87Hd2sjNnlNw3hBPEpWI N0WXQxqCSfK5AmuU1nUmMa XNXkVQUqT5VdzXCbUDmtB235XUw hYlG4QSGenpDoP3OlIOIdwUxjYk J3n1B9Jj3NSLRlLW23HIJ7 qGD5JY18TO84V8HhLezqrKEtsEF +PHRhYmxlIHdpZHRoPScxMDAlJy HvtUamSU9aSx9pWNGkMBJy gLxidMPfSbSxt6csEVNoSGrzKQ1 qaPsoN0NanGU5KXSaw0k8Zo73E9 5oD0LzeDT+QGPkmJJ2uLN1 iW2cSnZuKjH7FOcxQ724WxAbuMJ nVhafi7yaa3wgoLt8YjA6TBFrbs TjmDbrGRQ4d6RgFj22S65i IHdpZHRoPSIxNSUiIHZhbGlnbj0 ifK5tFa3+CMVtdNO1qWF7zP2xTj HmXdI6IAuiE395AbYslPZi Hfxjk3uaj7ureNf5RnUwJUMigzA kfBtePCY1s2RyCa30E6UqoSaej8 KeDwv6oh95uDRvv6D7cKC5 Z0ZoNKIidqhcwVBnjPmiJY5bPKH lcbgpXKFelL0wJBNgB5e6TqWmTd G7RPmjT9WgnqW0ADZjdCEn QNwwPRH7H24js5P7ZZIuFEYgMTH 0yEG8qK5bfOpzvwdxhQOceOhwwc WeeIkjAHrtYLbdE090FUDo nJwsNLDdgI3hUOCcdRYykTlqFT5 wNTBpbjsnPlZPTExNQVIsIEVMSV hZGvMNYTYZUG86IE91kWPq l9X3hTJ6K8UbVZLmbogzlnxjnYS 8SKWmZBRivK37aZWwGYvcHo5pt8 S5w547ZFNmIOYrsE49Dd0m dBzeITXdtQMVtR8boznva2jexsn dVtArDSXeYLi8ZTm3OIGskEyvMc FbLBE9AtI5SEK0tDWomA3j rBsulcmqrY2eLve+MDEvMDUvMTk 3NjwvdGQ+VRFjQGU7rWzpXJqrZN ZoxC7mGCEuV9h8AfJkOoK3 GCddL5LaZAGzyxhwZa59bZ2wNjF nDfC5DOkiH1DjwsR6UKApxNBvJL jqGHO2C62lb2A2AOQyVQBz BCM8rTP3lV6laAtntwfbtHXvrDx xkjHxoStnSTtxAJrnT094DAPlrO ypBmP7YAkjLSJwFB13RU41 hRMyf0L0eKF9A3SvKXCxnvnjkrr zoUT8EMKeBRZhsQ34mYGsVMykTg 4eu6W6l467LTUvOGRheO96 Tu9sfQhaKHSkbVGIvJ0ekanvg4h zbxajTzEeKHZjNNr5EAa0YBSdrU meTrAhMLS9RbX1HLJ5wWMl mY1gwDeaufjsmT3tDjp+RmVtYWx vDB59GF11fOBoy6I0aUD3N2ByDH IucmzpzsuteMW5NNTmUQSb jI95gKMgNPxqRt8qn6K3t431GZP mMAVryE18Hb3lwEqgGPLzqOWArI 9kppjzr7dklklkFlYzOYWo TWu9JOr6QNRriElvRfGlAVN9IvJ 5NCJ8jGDbwJ5uaUbfcybmeX4dGd c+CQ4nhjlnfaH7JJ36HQ98 T9VoAdfxmUQzkXG+PHRhYmxlIHd lNXJwVYxuOMClGoJneVcdTN2zUt 9yZGVyLWNvbGxhcHNlOiBj m0dtDAXgZOysRD9moAxiY2KcnXX 3KWWqz9o5Lg39D57zY9HbkAD+PG CnsGX8iYC3aF4lVxBjCgX8 TChcA009TzMwsAYfOnvvj5ozo1l caCe9JtCfXCLrnvEljSfmZQG5y8 EcMw32G33jLOjkNILuGLBk RGMhNSJslHgxhm2ozD6qEv4+PGN fpSV0lRP5cV7dKsIbPdN7JNakS4 21FuHprAUoYeclZ03wS7Iu dXA+KZGrBwj0ODSboBffJW2lePK aWFncRu4hQSL7AvReWnMjXYxwN2 CsGCRztublwosmaSA7BSBk MMAxfX63Ry4duNadNb9fGCUiJKQ 0AMDntZAzH9FikE0vEgRdLBXdTA JlM1ThaRMzASftF876XEfx EgR5JKZcaqKrA2JnQZOtzCflFfB 5j6A0Gb0OiBqdvLMhEV7qIkBvPC q2K1XzRfo1QDKasBztWG1z tXYlZCjcGy5xnMuupMjnPF0kVEG ixxsek479UjCxk8olPZCbtIJjKD jzIBG4N20ei1S0CNFgQABu SRU6mYB5yA7jjXxppqntdHXzzRa pyzGpgVsgIOomCXypY540IJJqvA kfReZEHch3J7YsEbf2DWRa gDrsWU0oaJJfVEycSy4ilZgnjBj fUW6pWXPjrzwcp052XvLkk3inWH MozDBrUAimQQU2B97ti0G0 GIJpPAHrSKT6wHQ4qL8upMosrpv gbGVmdDsgdmVydGljYWwtYWxpZ2 73OPMkvMjgNu0IDxz2D5Xo Ydy6TGNnlVnoQQ0olQMsPQfsCd1 iqLwmeQqsDW3uMKWuhpczc231Ut Wct9sqZKJmbOApBSbwPEB7 M67ut0N2CIEkIHYdVFU9vDH9eQ8 hbGlnbjogbGVmdDsgdmVydGljYW znYYxgR964AAJcdTqqQrHn eWVyOjwvdGQ+EK27ha78W8FkCkl uAln4AMNuZZF8oUN3lQ2yJCCzER rpl8K4dKK1T5LcahUtng0m b2xs (more content not included)... Normal [facility] CT Abdomen/Pelvis w/ Contras ton 10-21-2021 [...] ml's: 100 Rectal Contrast Given? No Normal [facility] Auto Diffon 10-20-2021 Basophils/100 WBC (Bld) 0.9 % Normal 0.0-2.0 [facility] Comment on above: Order Comment: Order Added by Discern Expert. Performed By: #### 2 277449, 7551131, 2780556, 3694146, 6482277, 74676247 ####[facility] [address] [place] [address] Basophils/Leukocyte s Auto (Bld) [Pure # fraction] 0.1 E9/L Normal 0.0-0.2 [facility] Comment on above: Order Comment: Order Added by Discern Expert. Performed By: #### 2 042099, 4328669, 3390639, 9667546, 7150288, 32870983 ####[facility] [address] [place] [address] Eosinophils/100 WBC (Bld) 1.3 % Normal 0.0-8.0 [facility] Comment on above: Order Comment: Order Added by Discern Expert. Performed By: #### 2 366307, 1897269, 9265763, 1659032, 2880117, 64342021 ####[facility] [address] [place] [address] Eosinophils/Leukocy denise Auto (Bld) [Pure # fraction] 0.2 E9/L Normal 0.0-0.5 [facility] Comment on above: Order Comment: Order Added by Discern Expert. Performed By: #### 2 091049, 7967200, 0404393, 6801558, 8392616, 83510780 ####[facility] [address] [place] [address] Lymphocytes/100 WBC (Bld) 19.8 % Normal 14.0-50.0 [facility] Comment on above: Order Comment: Order Added by Discern Expert. Performed By: #### 2 792942, 6524471, 2282309, 0141798, 6048932, 93715203 ####[address] [place] [address] Lymphocytes/Leukocy denise Auto (Bld) [Pure # fraction] 2.6 E9/L Normal 1.0-4.0 [facility] Comment on above: Order Comment: Order Added by Discern Expert. Performed By: #### 2 634367, 5313677, 2447158, 1521979, 3949351, 04345833 ####[address] [address] Monocytes/100 WBC (Bld) 6.0 % Normal 4.0-14.0 [facility] Comment on above: Order Comment: Order Added by Discern Expert. Performed By: #### 2 762068, 4290777, 5253120, 0048313, 1274839, 32973996 ####[address] [address] Monocytes/Leukocyte s Auto (Bld) [Pure # fraction] 0.8 E9/L Normal 0.2-1.0 [facility] Comment on above: Order Comment: Order Added by Discern Expert. Performed By: #### 2 780622, 9313467, 1227001, 0344934, 1547603, 84949286 ####[address] [address] Neutrophils/100 WBC (Bld) 72.0 % Normal 36.0-75.0 [facility] Comment on above: Order Comment: Order Added by Discern Expert. Performed By: #### 2 489721, 8141633, 0087169, 5923728, 7563266, 09516356 ####[address] [place] [address] Neutrophils/Leukocy denise Auto (Bld) [Pure # fraction] 9.4 E9/L High 2.0-7.5 [facility] Comment on above: Order Comment: Order Added by Discern Expert. Performed By: #### 2 497240, 7478573, 4586702, 2571540, 6282106, 00550789 ####[facility] [address] [place] [address] BMPon 10-20-2021 Creatinine [Mass/Vol] 0.6 mg/dL Normal 0.5-1.3 [facility] Comment on above: Performed By: #### 2 403404, 9194511, 6938090, 5145113, 9635216, 59481920 ####[facility] [address] [place] [address] Urea nitrogen [Mass/Vol] 11 mg/dL Normal 5-21 [facility] Comment on above: Performed By: #### 2 562406, 6752854, 5765799, 8151682, 8005178, 81129411 ####[facility] [address] [place] [address] Urea nitrogen/Creatinine [Mass ratio] 18 No Units Normal 10-20 [facility] Comment on above: Performed By: #### 2 641296, 2687759, 7867496, 3025703, 8367971, 88670079 ####[facility] [address] [place] [address] Anion gap [Moles/Vol] 13 mmol/L Normal 6-16 [facility] Comment on above: Performed By: #### 2 265813, 7523511, 4453573, 2010412, 6475679, 78039606 ####[facility] [address] [place] [address] Calcium [Mass/Vol] 9.4 mg/dL Normal 8.9-11.1 [facility] Comment on above: Performed By: #### 2 352186, 8867384, 2745036, 0252300, 7323992, 17986144 ####[facility] [address] [place] [address] Chloride [Moles/Vol] 99 mmol/L Low 101-111 [facility] Comment on above: Performed By: #### 2 353316, 8950647, 1392968, 7878269, 6017073, 86927825 ####[facility] [address] [place] [address] CO2 [Moles/Vol] 25 mmol/L Normal 21-31 [facility] Comment on above: Performed By: #### 2 430151, 6371324, 9717341, 7143699, 1166142, 66623233 ####[facility] [address] [place] [address] Glucose [Mass/Vol] 111 mg/dL Normal 55-199 [facility] Comment on above: Result Comment: If t his glucose result represents a fasting glucose, interpretation should refer to the following reference range: 55-99 mg/dL Performed By: #### 2 679400, 9039058, 6527624, 3556960, 7158538, 83252038 ####[facility] [address] [place] [address] Potassium [Moles/Vol] 3.8 mmol/L Normal 3.5-5.3 [facility] Comment on above: Performed By: #### 2 958081, 1597657, 5432961, 9496481, 6342531, 16958989 ####[facility] [address] [place] [address] Sodium [Moles/Vol] 133 mmol/L Low 135-145 [facility] Comment on above: Performed By: #### 2 566823, 8647349, 6054310, 2752100, 9225028, 43883884 ####[facility] [address] [place] [address] CBC w/ Auto Diffon Erythrocyte distribution width (RBC) [Ratio] 13.5 % Normal 10.9-14.2 [facility] Comment on above: Performed By: #### 2 935251, 9997050, 5752396, 9233379, 2755669, 85337086 ####[facility] [address] [place] [address] Hematocrit (Bld) [Volume fraction] 41.8 % Normal 34.0-46.0 [facility] Comment on above: Performed By: #### 2 217438, 8806422, 6062585, 7262414, 1420637, 05823280 ####[address] [address] Hemoglobin (Bld) [Mass/Vol] 14.1 g/dL Normal 12.0-16.0 [facility] Comment on above: Performed By: #### 2 484161, 6675821, 6681144, 3724355, 6527792, 18638843 ####[address] [address] MCH (RBC) [Entitic mass] 27.2 pg Normal 27.0-34.0 [facility] Comment on above: Performed By: #### 2 408061, 7468944, 1276285, 7050064, 7865719, 79626987 ####[address] [address] MCHC (RBC) [Mass/Vol] 33.7 g/dL Normal 31.4-36.0 [facility] Comment on above: Performed By: #### 2 856212, 7334146, 5228471, 3769696, 7751750, 04022988 ####[address] [address] MCV (RBC) [Entitic vol] 80.6 fL Normal 80.0-100.0 [facility] Comment on above: Performed By: #### 2 689352, 8409802, 2989227, 1927554, 2491431, 01625496 ####[address] [place] [address] Platelet mean volume (Bld) [Entitic vol] 7.9 fL Normal 6.4-10.8 [facility] Comment on above: Performed By: #### 2 835963, 8516984, 4989077, 0278873, 9849164, 34637282 ####[address] [address] Platelets (Bld) [#/Vol] 473.0 E9/L Normal 150.0-500.0 [facility] Comment on above: Performed By: #### 2 413815, 4487467, 8933406, 7119457, 1437787, 46680922 ####[facility] [address] [place] [address] RBC (Bld) [#/Vol] 5.2 E12/L Normal 4.3-5.9 [facility] Comment on above: Performed By: #### 2 607097, 1951425, 3780094, 5275381, 8752328, 12785386 ####[facility] [address] [place] [address] WBC corrected for nucl RBC Auto (Bld) [#/Vol] 13.1 E9/L High 4.0-11.0 [facility] Comment on above: Performed By: #### 2 594346, 2516826, 0060667, 2383253, 1949031, 97664401 ####[facility] [address] [place] [address] CHEMISTRYOrdered By: SYSTEM SYSTEM on 10-20-2021 Albumin [...] 99 mmol/L Low 101 - 111 mmol/L [facility] Remisol CO2 [Moles/Vol] 25 mmol/L Normal 21 - 31 mmol/L FT Remisol Creatinine [Mass/Vol] 0.6 mg/dL Normal 0.5 - 1.3 mg/dL [facility] Remisol GFR/1.73 sq M.predicted among blacks MDRD (S/P/Bld) [Vol rate/Area] mL/min/1.73 m2 Normal >=59mL/min/ 1.73 m2 [facility] Chem S GFR/1.73 sq M.predicted among non-blacks MDRD (S/P/Bld) [Vol rate/Area] mL/min/1.73 m2 Normal >=59mL/min/ 1.73 m2 [facility] Chem S Globulin (S) [Mass/Vol] 3.8 g/dL [...] Consent for Treatmenton 10-07 Consent for Treatment [id number]:127 Normal [facility] Discharge Instructionson Discharge Instructions [id number]:127 Normal [facility] ED Clinical Summaryon 2021 ED Clinical Summary (Inserted Image. Ade ble to display) [address] [address] ED Clinical Summary Person Information Name: GLADIS MICHAEL [facility] Age: 46 Years : 1975 Sex: Female Language: Prydeinig PCP: JOVITA WAITE CNP Marital Status: Phone: [phone] Visit Id: Visit Reason: Nausea; Abdominal pain; [...] 10/20/2021 21:20:18 10/20/2021 21:20:18 10/20/2021 21:20:18 ADDRESS: [address] [place] [id number] PHYS DOC NOTES: MEDICAL INFORMATION: Prescriptions Given: New Medications [id number], [address], [place] [id number], [phone] ketorolac (ketorolac 10 mg Tab) 1 Tablets [...] Ovarian Cyst Follow up: With: Address: When: [facility], [address] [place] [address] [place] [place] [address] Business (1) In 3 days 10/23/2021 DIAGNOSIS: Hydrosalpinx; Left ovarian cyst Normal [facility] ED Note-Nursingon 10-20-2021 ED Note-Nursing pt given d/c instruc tions and educated on importance of follow up. pt educated on new medication. pt verbalized understanding of instructions and readiness for d/c. pt walked self ambulatory to waiting room in stable condition and was driven home by her Normal [facility] ED Note-Physicianon 10-21-19 ED Note-Physician Basic [...] doxycycline and already has an appointment with [facility] on Friday. Because she gets somewhat relief [...] day(s), # 20 tab(s), Refills(s) 0, Pharmacy: [id number], 160, cm, 10/20/21 18:21:00 [...] CT Abdomen/Pelvis w/ Contrast Medications Administered Given grquvl2Qiylibgrt [F], 15 mg, IV Push Zofran 4 mg/2 mL Injection, 4 mg, IV Push Disposition Plan Discharge Prescription List Prescriptions ketorolac 10 mg Tab, 10 mg= 1 tab(s), Oral, q6hr, PRN Follow-up With When Contact Information Gustavo FONTAINE In 3 days 10/23/[address] [place] [place] [address]- Business (1) Additional Instructions: Patient Education Ovarian [...] Use, 11/09/ (more content not included)... Normal [facility] Comment on above: Result Comment: Elec tronically [...] Follow these instructions at home: ? Take hgak-kox-tmfdtim and prescription medicines only as told by [...] than usual. (more content not included)... Normal [facility] ED Patient Summaryon 022 ED Patient Summary (Inserted Image. Ade ble to display) [place] [id number] Patient Discharge Instructions Person Information Name: GLADIS MICHAEL Age: 46 Years Arrival Date: 10/20/2021 18:18:20 Discharge Diagnosis: Hydrosalpinx; Left ovarian cyst Primary Care Physician: JOVITA WAITE CNP Provider Information Primary Provider: Hunter Conte DO Advanced Blocklayer:None The exam and treatment you received in the Emergency Department were for an urgent problem and are not intended as complete care. It is important that you follow up with a doctor, nurse practitioner, or physician?s medical receptionist assistant for ongoing care. If your symptoms become worse or you do not improve as expected and you are unable to reach your usual health care provider, you should return to the Emergency Department. We are available 24 hours a day. GLADIS MICHAEL has been given the following list of patient education materials, prescriptions and follow-up instructions: Follow-up Instructions: With: Address: When: Gustavo SHERMAN [facility], [address] [place] [address] [place] [place] [address] Business (1) In 3 days 10/23/2021 In the event that this physician does not participate in your insurance network, please consult with your insurance company to find a nearby participating provider. Patient Education Materials: Ovarian Cyst A MESSAGE TO ALL PATIENTS REGARDING OPIOIDS PRESCRIPTION OPIOIDS: WHAT YOU NEED TO KNOW Prescription opioids can be used to help relieve twwaaekr-ze-qmogga pain and are often prescribed following a [...] be struggling with addiction, tell your health live in caregiver and ask for guidance or call [employer]?S National Helpline at 5-008-08 (more content not included)... Normal [facility] HEMATOLOGYOrdered By: SYSTEM SYSTEM on 10-20-2021 Basophils/100 WBC (Bld) 0.9 % Normal 0.0 - 2.0 % [facility] HemeAutoSS Basophils/Leukocyte s Auto (Bld) [Pure # fraction] 0.1 E9/L Normal 0.0 - 0.2 E9/L [facility] HemeAutoSS Eosinophils/100 WBC (Bld) 1.3 % Normal 0.0 - 8.0 % [facility] HemeAutoSS Eosinophils/Leukocy denise Auto (Bld) [Pure # [...] 13.1 E9/L High 4.0 - 11.0 E9/L [facility] HemeAutoSS Hep Func Panelon 10-20-2021 Albumin [Mass/Vol] 4.5 g/dL Normal 3.3-5.0 [facility] Comment on above: Performed By: #### 2 709813, 2995756, 1310933, 7954857, 3363504, 74034247 ####[facility] [address] [place] [address] Albumin/Globulin (S) [Mass conc ratio] 1.2 Normal 1.1-2.2 [facility] Comment on above: Performed By: #### 2 187388, 6458102, 1995232, 7957065, 5183567, 57404308 ####[facility] [address] [place] [address] ALP [Catalytic activity/Vol] 53 Int._Unit/L Normal 21-98 [facility] Comment on above: Performed By: #### 2 450179, 8833493, 9365333, 9555479, 2120179, 08779778 ####[facility] [address] [place] [address] ALT No additional P-5'-P [Catalytic activity/Vol] 23 Int._Unit/L Normal 6-46 [facility] Comment on above: Performed By: #### 2 041491, 2375756, 5884710, 5837855, 9531768, 59539519 ####[facility] [address] [place] [address] AST [Catalytic activity/Vol] 20 Int._Unit/L Normal 5-43 [facility] Comment on above: Performed By: #### 2 660193, 6880247, 4492582, 2481315, 0243271, 54979459 ####[facility] [address] [place] [address] Bilirubin [Mass/Vol] 0.8 mg/dL Normal 0.0-1.1 [facility] Comment on above: Performed By: #### 2 081044, 4226867, 0477371, 4622835, 5257895, 36999657 ####[facility] [address] [place] [address] Bilirubin.direct [Mass/Vol] 0.1 mg/dL Normal 0.1-0.4 [facility] Comment on above: Performed By: #### 2 539077, 2851550, 3164122, 4609785, 5911356, 56402277 ####[facility] [address] [place] [address] Bilirubin.indirect [Mass or moles/Vol] 0.7 mg/dL Normal 0.1-0.9 [facility] Comment on above: Performed By: #### 2 365517, 7796416, 4426636, 3907773, 1897353, 60170832 ####[address] [address] Globulin (S) [Mass/Vol] 3.8 g/dL Normal 1.4-4.0 [facility] Comment on above: Performed By: #### 2 449131, 1510292, 7569362, 3862467, 3411101, 32262641 ####[facility] [address] [place] [address] Protein [Mass/Vol] 8.3 g/dL High 6.0-7.8 [facility] Comment on above: Performed By: #### 2 302152, 5002748, 0770351, 8783411, 9454278, 68675208 ####[facility] [address] [place] [address] Lipase Levelon 10-20-2021 Lipase [Catalytic activity/Vol] 26 U/L Normal 13-58 [facility] Comment on above: Performed By: #### 2 523870, 6285364, 6989013, 2701583, 5815852, 56664748 ####[address] [place] [address] RAD - Preliminary Cat Scan R eporton 10-20-2021 RAD - Preliminary Cat Scan Report [id number]:127 Normal [facility] UA With Cult Reflexon 2021 Bilirubin Ql (U) Negative Normal Negative [facility] Comment on above: Performed By: #### 1 8123048 ####[facility] [address] [place] [address] Clarity (U) CLEAR Normal Clear [facility] Comment on above: Performed By: #### 1 3445178 ####[facility] [address] [place] [address] Color (U) YELLOW Normal Yellow [facility] Comment on above: Performed By: #### 1 7505602 ####[facility] [address] [place] [address] Crystals LM Ql (Urine sed) Present Normal [facility] Comment on above: Performed By: #### 1 6391817 ####[facility] [address] [place] [address] Epithelial cells.squamous LM.HPF (Urine sed) [#/Area] 0-2 Normal 0-2 [facility] Comment on above: Performed By: #### 1 2229628 ####[facility] [address] [place] [address] Glucose Test strip (U) [Mass/Vol] Negative Normal Negative [facility] Comment on above: Performed By: #### 1 8372782 ####[facility] [address] [place] [address] Hemoglobin Ql (U) Negative Normal Negative [facility] Comment on above: Performed By: #### 1 4683398 ####[facility] [address] [place] [address] Ketones (U) [Mass/Vol] Negative Normal Negative [facility] Comment on above: Performed By: #### 1 3200778 ####[facility] [address] [place] [address] [place].plasma/Lith ium.RBC (Bld) [Mass ratio] 0-3 Normal 0-3 [facility] Comment on above: Performed By: #### 1 8612436 ####[address] [address] Nitrite Ql (U) Negative Normal Negative [facility] Comment on above: Performed By: #### 1 7922825 ####[address] [address] pH (U) 6.0 [pH] Invalid Interpretation Code 5.0-9.0 [facility] Comment on above: Performed By: #### 1 9349842 ####[address] [address] Protein (U) [Mass/Vol] Negative Normal Negative [facility] Comment on above: Performed By: #### 1 5645371 ####[address] [address] Specific gravity (U) [Rel density] <=1.005 Invalid Interpretation Code 1.005-1.030 [facility] Comment on above: Performed By: #### 1 1662501 ####[address] [address] Type of Urine collection method Clean Catch Normal [facility] Comment on above: Performed By: #### 1 5196489 ####[address] [address] Urobilinogen Qn (U) 0.2 {Sonya'U}/dL Normal 0.0-1.0 [facility] Comment on above: Performed By: #### 1 5851148 ####[address] [address] WBC Auto Ql (U) TRACE Abnormal Negative [facility] Comment on above: Performed By: #### 1 0489289 ####[address] [address] WBC LM.HPF (Urine sed) [#/Area] 0-5 Normal 0-5 [facility] Comment on above: Performed By: #### 1 9931636 ####[facility] [address] [place] [address] URINALYSISOrdered By: Sarmad michaels on 10-20-2021 Bilirubin [...] PM) Normal Negative [facility] UA Auto SS [place].plasma/Lith ium.RBC (Bld) [Mass ratio] 0-3 /HPF Normal [...] [facility] UA Auto SS Urobilinogen Qn (U) 0.1662029 {Sonya'U}/dL Normal 0.0 - 1.0 EU/dL [facility] UA Auto SS WBC Auto Ql (U) Trace *ABN* (10/20/21 6:38 PM) Invalid Interpretation Code Negative [facility] UA Auto SS WBC LM.HPF (Urine sed) [#/Area] 0-5 /HPF Normal 0-5/HPF [facility] [place] Auto SS eGFRon 10-20-2021 GFR/1.73 sq M.predicted among blacks MDRD (S/P/Bld) [Vol rate/Area] mL/min/{1.73_m2} Normal >=59 [facility] Comment on above: Order Comment: Order added by Discern Expert. Result Comment: eGFR is race adjusted. AA=. Performed By: #### 2 727520, 1422331, 6444875, 0127915, 7224725, 36261849 ####[facility] [address] [place] [address] GFR/1.73 sq M.predicted among non-blacks MDRD (S/P/Bld) [Vol rate/Area] mL/min/{1.73_m2} Normal >=59 [facility] Comment on above: Order Comment: Order added by Discern Expert. Result Comment: Machine Packer ramo kidney disease could be indicated at eGFR's of less than 60 mL/min/1.73m2. Kidney failure is indicated at less than 15 mL/min/1.73m2. Performed By: #### 2 839121, 3333550, 7458642, 7723666, 5365888, 70564425 ####[facility] [address] [place] [address] Auto Diffon 10-18-2021 Basophils/100 WBC (Bld) 1.0 % Normal 0.0-2.0 [facility] Comment on above: Order Comment: Order Added by Discern Expert. Performed By: #### 2 121209, 0383434, 45053672, 4954281, 9911897, 5769307, 5920329 #### [facility] Laboratory [address] [place] [address] Basophils/Leukocyte s Auto (Bld) [Pure # fraction] 0.1 E9/L Normal 0.0-0.2 [facility] Comment on above: Order Comment: Order Added by Discern Expert. Performed By: #### 2 326719, 0818482, 54241697, 0033643, 7129857, 9971153, 0702927 #### [facility] [address] [place] [address] Eosinophils/100 WBC (Bld) 1.3 % Normal 0.0-8.0 [facility] Comment on above: Order Comment: Order Added by Discern Expert. Performed By: #### 2 662492, 9939998, 90023082, 9625650, 2035162, 3731947, 6109873 #### [facility] [address] [place] [address] Eosinophils/Leukocy denise Auto (Bld) [Pure # fraction] 0.1 E9/L Normal 0.0-0.5 [facility] Comment on above: Order Comment: Order Added by Carolann Expert. Performed By: #### 2 028248, 1874593, 21952928, 1762896, 3256612, 4051341, 2036281 #### [facility] [address] [place] [address] Lymphocytes/100 WBC (Bld) 25.5 % Normal 14.0-50.0 [facility] Comment on above: Order Comment: Order Added by Carolann Expert. Performed By: #### 2 836552, 8228717, 11767527, 1591350, 5278655, 8347973, 6935866 #### [facility] [address] [place] [address] Lymphocytes/Leukocy denise Auto (Bld) [Pure # fraction] 2.6 E9/L Normal 1.0-4.0 [facility] Comment on above: Order Comment: Order Added by Carolann Expert. Performed By: #### 2 269719, 1632917, 13910936, 5242744, 6129176, 1163949, 9496878 #### [facility] [address] [place] [address] Monocytes/100 WBC (Bld) 5.7 % Normal 4.0-14.0 [facility] Comment on above: Order Comment: Order Added by Discern Expert. Performed By: #### 2 946983, 2964682, 66641248, 6644567, 7207049, 0694180, 1240666 #### [facility] [address] [place] [address] Monocytes/Leukocyte s Auto (Bld) [Pure # fraction] 0.6 E9/L Normal 0.2-1.0 [facility] Comment on above: Order Comment: Order Added by Discern Expert. Performed By: #### 2 212446, 5589385, 17136433, 6773443, 7137837, 4262737, 4853398 #### [facility] [address] [place] [address] Neutrophils/100 WBC (Bld) 66.5 % Normal 36.0-75.0 [facility] Comment on above: Order Comment: Order Added by Discern Expert. Performed By: #### 2 805353, 7029577, 43683557, 2398458, 6884596, 1891073, 5656869 #### [facility] [address] [place] [address] Neutrophils/Leukocy denise Auto (Bld) [Pure # fraction] 6.7 E9/L Normal 2.0-7.5 [facility] Comment on above: Order Comment: Order Added by Discern Expert. Performed By: #### 2 610811, 2129336, 07239031, 2582628, 3300598, 0917417, 6141422 #### [facility] [address] [place] [address] BMPon 10-18-2021 Creatinine [Mass/Vol] 0.4 mg/dL Low 0.5-1.3 [facility] Comment on above: Performed By: #### 2 273521, 4584867, 59655676, 7493216, 8629496, 6549946, 2971783 ####[facility] [address] [place] [address] Urea nitrogen [Mass/Vol] 13 mg/dL Normal 5-21 [facility] Comment on above: Performed By: #### 2 069900, 6164230, 21423819, 3880141, 6813723, 2395427, 6366261 ####[facility] [address] [place] [address] Urea nitrogen/Creatinine [Mass ratio] 32 No Units High 10-20 [facility] Comment on above: Performed By: #### 2 888949, 0832541, 58144433, 6618476, 9865372, 2977216, 5017082 ####[facility] [address] [place] [address] Anion gap [Moles/Vol] 12 mmol/L Normal 6-16 [facility] Comment on above: Performed By: #### 2 842934, 8614065, 45790249, 8539588, 3064115, 7812545, 8493488 ####[facility] [address] [place] [address] Calcium [Mass/Vol] 9.1 mg/dL Normal 8.9-11.1 [facility] Comment on above: Performed By: #### 2 349955, 3683683, 91873138, 2918742, 4070606, 2891114, 8538750 ####[facility] [address] [place] [address] Chloride [Moles/Vol] 102 mmol/L Normal 101-111 [facility] Comment on above: Performed By: #### 2 092227, 9995455, 32796839, 5878213, 2281687, 8414295, 1034792 ####[facility] [address] [place] [address] CO2 [Moles/Vol] 24 mmol/L Normal 21-31 [facility] Comment on above: Performed By: #### 2 595061, 1520360, 64078634, 0527173, 4266996, 3824512, 1930100 ####[facility] [address] [place] [address] Glucose [Mass/Vol] 108 mg/dL Normal 55-199 [facility] Comment on above: Result Comment: If t his glucose result represents a fasting glucose, interpretation should refer to the following reference range: 55-99 mg/dL Performed By: #### 2 291005, 7723204, 62440223, 8696233, 5645876, 5401040, 4990028 ####[facility] [address] [place] [address] Potassium [Moles/Vol] 3.7 mmol/L Normal 3.5-5.3 [facility] Comment on above: Performed By: #### 2 984917, 6054710, 57709074, 4490598, 3262769, 9245165, 8704339 ####[facility] [address] [place] [address] Sodium [Moles/Vol] 134 mmol/L Low 135-145 [facility] Comment on above: Performed By: #### 2 753561, 8285257, 56404459, 3036441, 8590469, 6088715, 1908754 ####[facility] [address] [place] [address] CBC w/ Auto Diffon Erythrocyte distribution width (RBC) [Ratio] 13.5 % Normal 10.9-14.2 [facility] Comment on above: Performed By: #### 2 971725, 2021928, 98982856, 2660225, 4039916, 1508029, 7906943 #### [facility] [address] [place] [address] Hematocrit (Bld) [Volume fraction] 38.7 % Normal 34.0-46.0 [facility] Comment on above: Performed By: #### 2 506952, 5429743, 66636172, 9608242, 2847156, 1734104, 0647381 #### [facility] [address] [place] [address] Hemoglobin (Bld) [Mass/Vol] 13.2 g/dL Normal 12.0-16.0 [facility] Comment on above: Performed By: #### 2 796341, 4959419, 96256215, 2713352, 1203425, 6861148, 1668789 #### [facility] [address] [place] [address] MCH (RBC) [Entitic mass] 27.6 pg Normal 27.0-34.0 [facility] Comment on above: Performed By: #### 2 436550, 2044221, 38496982, 1458476, 7553851, 1978224, 1702816 #### [facility] [address] [place], [place] [address] MCHC (RBC) [Mass/Vol] 34.2 g/dL Normal 31.4-36.0 [facility] Comment on above: Performed By: #### 2 123532, 2403287, 16800023, 7661436, 4569380, 7981886, 8634310 #### [facility] [address] [place] [address] MCV (RBC) [Entitic vol] 81.0 fL Normal 80.0-100.0 [facility] Comment on above: Performed By: #### 2 183692, 4803258, 71229475, 2593438, 2559483, 5388587, 0596843 #### [facility] [address] [place] [address] Platelet mean volume (Bld) [Entitic vol] 7.9 fL Normal 6.4-10.8 [facility] Comment on above: Performed By: #### 2 112865, 7714939, 41315559, 5185414, 2219068, 3769274, 8499615 #### [facility] [address] [place] [address] Platelets (Bld) [#/Vol] 415.0 E9/L Normal 150.0-500.0 [facility] Comment on above: Performed By: #### 2 876159, 8268215, 61890011, 8161445, 2963338, 0695153, 1991314 #### [facility] [address] [place] [address] RBC (Bld) [#/Vol] 4.8 E12/L Normal 4.3-5.9 [facility] Comment on above: Performed By: #### 2 713970, 9708065, 47057895, 8724082, 3535589, 8382379, 1908758 #### [facility] [address] [place] [address] WBC corrected for nucl RBC Auto (Bld) [#/Vol] 10.1 E9/L Normal 4.0-11.0 [facility] Comment on above: Performed By: #### 2 374598, 5743944, 70606081, 1227512, 7508880, 7157455, 3259581 #### [facility] [address] [place] [address] CHEMISTRYOrdered By: SYSTEM SYSTEM on 10-18-2021 Albumin [...] Normal >=59mL/min/ 1.73 m2 FT Chem S Globulin (S) [Mass/Vol] 3.6 g/dL [...] 300 Contrast amount in ml's: 100 Normal [facility] Consent for Treatmenton 10-07 Consent for Treatment [id number]:127 Normal [facility] Discharge Instructionson Discharge Instructions [id number]:127 Normal [facility] ED Clinical Summaryon 2021 ED Clinical Summary (Inserted Image. Ade ble to display) [place] [id number] ED Clinical Summary Person Information Name: GLADIS MICHAEL [facility] Age: 46 Years : 1975 Sex: Female Language: Prydeinig PCP: JOVITA WAITE CNP Marital Status: Phone: [phone] Visit Id: Visit Reason: Flank pain; Nausea; [...] 07:16:51 10/18/2021 07:16:51 Registration Request 10/18/2021 07:16:51 Complete 10/18/2021 07:38:22 10/18/2021 07:59:18 Meds Admin Cancel 10/18/2021 11:16:04 10/18/2021 11:23:21 Meds Admin Complete 10/18/2021 11:24:15 10/18/2021 11:25:12 Discharge Complete 10/18/2021 12:14:21 10/18/2021 12:30:36 10/18/2021 12:30:36 Transfer Complete 10/18/2021 12:30:36 10/18/2021 12:30:36 10/18/2021 12:30:36 ADDRESS: [address] [place] [phone] PHYS DOC NOTES: MEDICAL INFORMATION: Prescriptions Given: New Medications [facility]/pharmacy #[id number], [address], [place] [id number], [phone] acetaminophen-oxycodone (Percocet 5 mg-325 mg oral tablet) [...] Follow up: With: Address: When: Gustavo FONTAINE [facility], [address] [place] [address] [address] [place] [address] Business (1) In 3 days 10/21/2021 With: Address: When: JOVITA WAITE [address] [place] [phone] Notizza (1) In 3 days 10/21/2021 Comments: The ultrasound showed that you have fluid in your fallopian tube. Make sure to follow-up with Dr. Fontaine as instructed. Return to the emergency room if your pain gets worse, fever, vomiting or any new symptoms. DIAGNOSIS: 1:Hydrosalpinx; Abdominal pain, acute, left lower quadrant Normal [facility] ED Note-Physicianon 10-19-19 ED Note-Physician Basic Information Medical Decision Making The care of the patient was transitioned to la upon shift change. The patient has presented [...] needed for pain, 12 tab(s), Refill(s) 0, [facility]/pharmacy #[id number], 160, cm, 10/18/21 4:04:00 EDT, Height/Length Dosing, 107, kg, 10/18/21 4:04:00 EDT, Weight Dosing Abdominal pain, acute, left lower quadrant (R10.32: Left lower quadrant pain) Orders: doxycycline, 100 mg = 1 tab(s), Oral, BID, # 20 tab(s), Refills(s) 0, Pharmacy: [facility]/pharmacy #[id number], 160, cm, 10/18/21 4:04:00 [...] Gustavo FONTAINE In 3 days 10/21/[address] [place] [address]- Business (1) Additional Instructions: JOVITA WAITE In 3 days 10/21/[address]T [address] [place] [address]- [phone] Business (1) Additional Instructions: The ultrasound showed [...] 04:30:00) Lymph Auto: 25.5 % (10/18/21 04:30:00) [place] Auto: 5.7 % (10/18/21 04:30:00) Eos Auto: 1.3 % (10/18/21 04:30:00) Basophil Auto: 1 % (10/18/21 04:30:00) Neutro Absolute: 6.7 E9/L (10/18/21 04:30:00) Lymph Absolute: 2.6 E9/L (10/18/21 04:30:00) [place] Absolute: 0.6 E9/L (10/18/21 04:30:00) Eos Absolute: [...] gm/dL ( (more content not included)... Normal [facility] Comment on above: Result Comment: Elec tronically Signed By: Patricia Palumbo M.D.\.br\Date and Time Signed: 10/18/21 12:32 EDT ED [...] 13.2 g (more content not included)... Normal [facility] Comment on above: Result Comment: Elec tronically [...] these instructions at home: Medicines ? Take ivij-rqr-vqdvarm and prescription medicines only as told by [...] your condition for any changes. ? Take jqwi-ibf-eqfplkq and prescription medicines only as told by [...] 03/05/2006 Document Revised: 10/04/2019 Document Reviewed: 10/04/2019 [employer] Patient Education ? 2019 [employer] Normal [facility] ED Patient Summaryon 022 ED Patient Summary (Inserted Image. Ade ble to display) [place] [id number] Patient Discharge Instructions Person Information Name: GLADIS MICHAEL Age: 46 Years Arrival Date: 10/18/2021 03:56:10 Discharge Diagnosis: 1:Hydrosalpinx; Abdominal pain, acute, left lower quadrant Primary Care Physician: JOVITA WAITE CNP Provider Information Primary Provider: Jeffy Das DO Advanced Blocklayer:None The exam and treatment you received in the Emergency Department were for an urgent problem and are not intended as complete care. It is important that you follow up with a doctor, nurse practitioner, or physician?s medical receptionist assistant for ongoing care. If your symptoms [...] Follow-up Instructions: With: Address: When: Gustavo FONTAINE [facility], [address] [place] [address] [place] [place] [address] Business (1) In 3 days 10/21/2021 With: Address: When: JOVITA WAITE [address] [place] [phone] Business (1) In 3 days 10/21/2021 Comments: [...] opioids can be used to help relieve eessjnib-df-wswycu pain and are often prescribed following a [...] mail-back p (more content not included)... Normal [facility] HEMATOLOGYOrdered By: SYSTEM SYSTEM on 10-18-2021 Basophils/100 WBC (Bld) 1.0 % Normal 0.0 - 2.0 % [facility] HemeAutoSS Basophils/Leukocyte s Auto (Bld) [Pure # fraction] 0.1 E9/L Normal 0.0 - 0.2 E9/L [facility] HemeAutoSS Eosinophils/100 WBC (Bld) 1.3 % Normal 0.0 - 8.0 % [facility] HemeAutoSS Eosinophils/Leukocy denise Auto (Bld) [Pure # [...] 10.1 E9/L Normal 4.0 - 11.0 E9/L [facility] HemeAutoSS Hep Func Panelon 10-18-2021 Albumin [Mass/Vol] 4.2 g/dL Normal 3.3-5.0 [facility] Comment on above: Performed By: #### 2 770149, 1388832, 36052158, 3314151, 1305675, 1787376, 0613449 ####[facility] [address] [place] [address] Albumin/Globulin (S) [Mass conc ratio] 1.2 Normal 1.1-2.2 [facility] Comment on above: Performed By: #### 2 696116, 3306584, 41167117, 0848251, 5175573, 1930530, 3198557 ####[facility] [address] [place] [address] ALP [Catalytic activity/Vol] 48 Int._Unit/L Normal 21-98 [facility] Comment on above: Performed By: #### 2 343515, 5424806, 41068546, 2688223, 0773983, 8238032, 8189277 ####[facility] [address] [place] [address] ALT No additional P-5'-P [Catalytic activity/Vol] 26 Int._Unit/L Normal 6-46 [facility] Comment on above: Performed By: #### 2 123353, 4870558, 52683677, 4328772, 0357402, 0729838, 4949564 ####[facility] [address] [place] [address] AST [Catalytic activity/Vol] 23 Int._Unit/L Normal 5-43 [facility] Comment on above: Performed By: #### 2 350703, 0062628, 23377639, 4760462, 9621728, 2493281, 4261179 ####[facility] [address] [place] [address] Bilirubin [Mass/Vol] 0.8 mg/dL Normal 0.0-1.1 [facility] Comment on above: Performed By: #### 2 082386, 3191230, 11520986, 6610229, 0965982, 6001010, 4311919 ####[facility] [address] [place] [address] Bilirubin.direct [Mass/Vol] 0.2 mg/dL Normal 0.1-0.4 [facility] Comment on above: Performed By: #### 2 626909, 9046443, 21530290, 6809789, 2057767, 3558388, 3685489 ####[facility] [address] [place] [address] Bilirubin.indirect [Mass or moles/Vol] 0.6 mg/dL Normal 0.1-0.9 [facility] Comment on above: Performed By: #### 2 587140, 2739952, 44012931, 8177246, 4747608, 0278026, 8520678 ####[facility] [address] [place] [address] Globulin (S) [Mass/Vol] 3.6 g/dL Normal 1.4-4.0 [facility] Comment on above: Performed By: #### 2 938342, 3646455, 92073156, 1032015, 1412410, 6239307, 7839901 ####[facility] [address] [place] [address] Protein [Mass/Vol] 7.8 g/dL Normal 6.0-7.8 [facility] Comment on above: Performed By: #### 2 966001, 1850613, 09013163, 9841477, 2649083, 1753941, 0543016 ####[facility] [address] [place] [address] Lactic Acidon 10-18-2021 Lactate [Mass/Vol] 1.1 mmol/L Normal 0.5-2.2 [facility] Comment on above: Performed By: #### 2 335519, 4227019, 56482136, 4977179, 3582184, 4752101, 3435785 ####[facility] [address] [place] [address] Lipase Levelon 10-18-2021 Lipase [Catalytic activity/Vol] 28 U/L Normal 13-58 [facility] Comment on above: Performed By: #### 2 318360, 0634039, 63116341, 0273856, 2250090, 1904913, 2848220 ####[facility] [address] [place] [address] RAD - Preliminary Cat Scan R eporton 10-18-2021 RAD - Preliminary Cat Scan Report [id number]:127 Normal [facility] SEROLOGYOrdered By: Amber russ on 10-18-2021 HCG.beta subunit (U) [Moles/Vol] Negative Normal [facility] Man Sero U BetaHcg Qualon 10-18-2021 HCG.beta subunit (U) [Moles/Vol] Negative Normal [facility] Comment on above: Performed By: #### 2 5876801, 49994235 ####[facility] [address] [place] [address] UA With Cult Reflexon 2021 Bacteria LM Ql (Urine sed) TRACE Normal Trace [facility] Comment on above: Performed By: #### 2 6310761, 83911222 ####[facility] [address] [place] [address] Bilirubin Ql (U) Negative Normal Negative [facility] Comment on above: Performed By: #### 2 9524610, 82335500 ####[facility] [address] [place] [address] Clarity (U) CLEAR Normal Clear [facility] Comment on above: Performed By: #### 2 9182660, 73277919 ####[facility] [address] [place] [address] Color (U) STRAW Invalid Interpretation Code [facility] Comment on above: Performed By: #### 2 4417600, 89802292 ####[facility] [address] [place] [address] Epithelial cells.squamous LM.HPF (Urine sed) [#/Area] 0-2 Normal 0-2 [facility] Comment on above: Performed By: #### 2 7381968, 28777678 ####[facility] [address] [place] [address] Glucose Test strip (U) [Mass/Vol] Negative Normal Negative [facility] Comment on above: Performed By: #### 2 8964081, 70908176 ####[facility] [address] [place] [address] Hemoglobin Ql (U) TRACE Abnormal Negative [facility] Comment on above: Performed By: #### 2 9813942, 47769040 ####[facility] [address] [place] [address] Ketones (U) [Mass/Vol] Negative Normal Negative [facility] Comment on above: Performed By: #### 2 5629756, 24902272 ####[facility] [address] [place] [address] [place].plasma/Lith ium.RBC (Bld) [Mass ratio] 0-3 Normal 0-3 [facility] Comment on above: Performed By: #### 2 4380452, 88172536 ####[facility] [address] [place] [address] Nitrite Ql (U) Negative Normal Negative [facility] Comment on above: Performed By: #### 2 1085488, 55851821 ####[facility] [address] [place] [address] pH (U) 6.5 [pH] Invalid Interpretation Code 5.0-9.0 [facility] Comment on above: Performed By: #### 2 4068285, 72007863 ####[facility] [address] [place] [address] Protein (U) [Mass/Vol] Negative Normal Negative [facility] Comment on above: Performed By: #### 2 0419058, 55734973 ####[facility] [address] [place] [address] Specific gravity (U) [Rel density] 1.010 Invalid Interpretation Code 1.005-1.030 [facility] Comment on above: Performed By: #### 2 [id number], [id number] ####[place] [address] Type of Urine collection method Clean Catch Normal [facility] Comment on above: Performed By: #### 2 [id number], [id number] ####[place] [address] Urobilinogen Qn (U) 0.2 {Sonya'U}/dL Normal 0.0-1.0 [facility] Comment on above: Performed By: #### 2 [id number], [id number] ####[place] [address] WBC Auto Ql (U) TRACE Abnormal Negative [facility] Comment on above: Performed By: #### 2 [id number], [id number] ####[place] [address] WBC LM.HPF (Urine sed) [#/Area] 0-5 Normal 0-5 [facility] Comment on above: Performed By: #### 2 [id number], [id number] ####[place] [address] URINALYSISOrdered By: Gasper Moon on 10-18-2021 Bacteria LM Ql (Urine sed) Trace /HPF Normal Trace/HPF FT UA Auto SS Bilirubin Ql (U) Negative (10/18/21 5:09 AM) Normal Negative FT UA Auto SS Clarity (U) Clear (10/18/21 5:09 AM) Normal Clear FT UA Auto SS Color (U) STRAW Invalid Interpretation Code FT UA Auto SS Epithelial cells.squamous LM.HPF (Urine sed) [#/Area] 0-2 /HPF Normal 0-2/HPF [facility] [place]A Auto SS Glucose Test strip (U) [Mass/Vol] Negative (10/18/21 5:09 AM) Normal Negative [facility] UA Auto SS Hemoglobin Ql (U) Trace *ABN* (10/18/21 5:09 AM) Invalid Interpretation Code Negative [facility] UA Auto SS Ketones (U) [Mass/Vol] Negative (10/18/21 5:09 AM) Normal Negative [facility] UA Auto SS [place].plasma/Lith ium.RBC (Bld) [Mass ratio] 0-3 /HPF Normal 0-3/HPF [facility] UA Auto SS Nitrite Ql (U) Negative (10/18/21 5:09 AM) Normal Negative [facility] UA Auto SS pH (U) 6.5 *NA* (10/18/21 5:09 AM) Invalid Interpretation Code 5.0 - 9.0 [facility] UA Auto SS Protein (U) [Mass/Vol] Negative (10/18/21 5:09 AM) Normal Negative [facility] UA Auto SS Specific gravity (U) [Rel density] 1.010 *NA* (10/18/21 5:09 AM) Invalid Interpretation Code 1.005 - 1.030 [facility] UA Auto SS UA Spec Desc Clean Catch (10/18/21 5:09 AM) Normal [facility] UA Auto SS Urobilinogen Qn (U) 0.3306586 {Sonya'U}/dL Normal 0.0 - 1.0 EU/dL [facility] UA Auto SS WBC Auto Ql (U) Trace *ABN* (10/18/21 5:09 AM) Invalid Interpretation Code Negative [facility] UA Auto SS WBC LM.HPF (Urine sed) [#/Area] 0-5 /HPF Normal 0-5/HPF [facility] UA Auto SS US Pelvis Non-OB Completeon [...] M.D. Transcribed by: RAMANDEEP Technologist: CAIN Malin [facility] US Transvaginal Non-OBon US Transvaginal Non-OB Exam Date/Time: 10/18/2021 07:59 EDT Reason for Exam: Pelvic pain Report PLEASE REFER TO THE ULTRASOUND NON-OB COMPLETE REPORT. FINAL REPORT Dictated: 10/18/2021 11:12 am Ethan Brothers M.D. Signed (Electronic Signature): 10/18/2021 11:12 am Signed by: Ethan Brothers M.D. Transcribed by: RAMANDEEP Technologist: CAIN Malin [facility] eGFRon 10-18-2021 GFR/1.73 sq M.predicted among blacks MDRD (S/P/Bld) [Vol rate/Area] mL/min/{1.73_m2} Normal >=59 [facility] Comment on above: Order Comment: Order added by Discern Expert. Result Comment: eGFR is race adjusted. AA=. Performed By: #### 2 [id number], [id number], [id number], [id number], [id number], [id number], [id number] ####[facility] [address] [place] [address] GFR/1.73 sq M.predicted among non-blacks MDRD (S/P/Bld) [Vol rate/Area] mL/min/{1.73_m2} Normal >=59 [facility] Comment on above: Order Comment: Order added by Discern Expert. Result Comment: Machine Packer ramo kidney disease could be indicated at eGFR's of less than 60 mL/min/1.73m2. Kidney failure is indicated at less than 15 mL/min/1.73m2. Performed By: #### 2 [id number], [id number], [id number], [id number], [id number], [id number], [id number] ####[facility] [address] [place] [address] CBC AUTO DIFFon 09-27-2021 BASO # 0.1 103/ul Normal 0.0-0.1 [facility] Comment on above: Performed By: #### C BC #### [facility] [address] [place] [address] Dr. Kristen Gambino Basophils/100 WBC (Bld) 1.0 % Normal 0.2-2.0 [facility] Comment on above: Performed By: #### C BC #### [facility] [address] [place] [address] Dr. Kristen Gambino EO # 0.1 103/ul Normal 0.0-0.7 [facility] Comment on above: Performed By: #### C BC #### [facility] [address] [place] [address] Dr. Kristen Gambino Eosinophils/100 WBC (Bld) 0.9 % Normal 0.9-7.0 [facility] Comment on above: Performed By: #### C BC #### [facility] [address] [place] [address] Dr. Kristen Gambino Erythrocyte distribution width (RBC) [Ratio] 13.3 % Normal 11.0-15.0 [facility] Comment on above: Performed By: #### C BC #### [facility] [address] [place] [address] Dr. Kristen Gambino Hematocrit (Bld) [Volume fraction] 44.6 % Normal 36.0-48.0 [facility] Comment on above: Performed By: #### C BC #### [facility] [address] [place] [address] Dr. Kristen Gambino Hemoglobin (Bld) [Mass/Vol] 14.4 g/dL Normal 12.0-16.0 [facility] Comment on above: Performed By: #### C BC #### [facility] [address] [place] [address] Dr. Kristen Gambino IG # 0.03 10e3/ul Normal 0.00-0.03 [facility] Comment on above: Performed By: #### C BC #### [facility] [address] [place] [address] Dr. Kristen Gambino IG % 0.3 % Normal 0.0-0.[address] [facility] Comment on above: Performed By: #### C BC #### [facility] [address] [place] [address] Dr. Kristen Gambino LYMPH # 1.6 103/ul Normal 1.2-3.8 [facility] Comment on above: Performed By: #### C BC #### [facility] [address] [place] [address] Dr. Kristen Gambino Lymphocytes/100 WBC (Bld) 17.9 % Critically low 20.5-60.0 [facility] Comment on above: Performed By: #### C BC #### [facility] [address] [place] [address] Dr. Kristen Gambino MANUAL DIFF REQ NO Normal [facility] Comment on above: Performed By: #### C BC #### [facility] [address] [place] [address] Dr. Kristen Gambino MCH (RBC) [Entitic mass] 27.1 pg Normal 26.7-34.0 [facility] Comment on above: Performed By: #### C BC #### [facility] [address] [place] [address] Dr. Kristen Gambino MCHC (RBC) [Mass/Vol] 32.3 g/dL Normal 29.9-35.2 [facility] Comment on above: Performed By: #### C BC #### [facility] [address] [place] [address] Dr. Kristen Gambino MCV (RBC) [Entitic vol] 84.0 fL Normal 81.0-99.0 [facility] Comment on above: Performed By: #### C BC #### [facility] [address] [place] [address] Dr. Kristen Gambino MONO # 0.7 103/ul Normal 0.3-0.8 [facility] Comment on above: Performed By: #### C BC #### [facility] [address] [place] [address] Dr. Kristen Gambino Monocytes/100 WBC (Bld) 7.6 % Normal 1.7-12.0 [facility] Comment on above: Performed By: #### C BC #### [facility] [address] [place] [address] Dr. Kristen Gambino NEUT # 6.6 103/ul Critically high 1.4-6.5 [facility] Comment on above: Performed By: #### C BC #### [facility] [address] [place] [address] Dr. Kristen Gambino Neutrophils/100 WBC (Bld) 72.3 % Normal 43.0-75.0 [facility] Comment on above: Performed By: #### C BC #### [facility] [address] [place] [address] Dr. Kristen Gambino Platelet mean volume (Bld) [Entitic vol] 9.8 fL Normal 9.5-13.5 [facility] Comment on above: Performed By: #### C BC #### [facility] [address] [place] [address] Dr. Kristen Gambino PLT 427 103/ul Normal 150-450 [facility] Comment on above: Performed By: #### C BC #### [facility] [address] [place] [address] Dr. Kristen Gambino RBC 5.31 106/ul Normal 4.20-5.40 [facility] Comment on above: Performed By: #### C BC #### [facility] [address] [place] [address] Dr. Kristen Gambino WBC 9.1 103/ul Normal 4.0-11.0 [facility] Comment on above: Performed By: #### C BC #### [facility] [address] [place] [address] Dr. Kristen Gambino LIPID PROFILEon 09-27-2021 CHOL-HDL RATIO NORM SEE BELOW Normal [facility] Comment on above: Result Comment: 3.3 - 4.4 LOW RISK 4.4 - 7.1 AVERAGE RISK 7.1 - 11.0 MODERATE RISK >11.0 HIGH RISK Performed By: #### C MP, LIPID #### [facility] [address] [place] [address] Dr. Kristen Gambino Cholesterol [Mass/Vol] 186 mg/dL Normal <=[address] [facility] Comment on above: Performed By: #### C MP, LIPID #### [facility] [address] [place] [address] Dr. Kristen Gambino Cholesterol in HDL [Mass/Vol] 43 mg/dL Normal 40-60 [facility] Comment on above: Performed By: #### C MP, LIPID #### [facility] [address] [place] [address] Dr. Kristen Gambino Cholesterol in LDL [Mass/Vol] 106.6 mg/dL Normal [facility] Comment on above: Performed By: #### C MP, LIPID #### [facility] [address] [address] [address] Kristen Gambino Cholesterol.total/C holesterol in HDL [Mass ratio] 4.3 {ratio} Normal [facility] Comment on above: Performed By: #### C MP, LIPID #### [facility] [address] [address] [address] Kristen Gambino HDL NORMAL > or = 60 mg/dl - LO W CARDIOVASCULAR RISK <40 mg/dl - HIGH CARDIOVASCULAR RISK Normal [facility] Comment on above: Performed By: #### C MP, LIPID #### [facility] [address] [place] [address] Dr. Kristen Gambino LDL CALC NORMAL SEE BELOW Normal [facility] Comment on above: Result Comment: <100 mg/dl OPTIMAL 100 - 129 mg/dl NEAR OR ABOVE OPTIMAL 130 - 159 mg/dl BORDERLINE HIGH 160 - 189 mg/dl HIGH >190 mg/dl VERY HIGH Performed By: #### C MP, LIPID #### [facility] [address] [address] [address] Kristen Gambino Triglyceride [Mass/Vol] 182 mg/dL Critically high <=150 [facility] Comment on above: Performed By: #### C MP, LIPID #### [facility] [address] [address] [address] Kristen Gambino VLDL CALC 36.4 mg/dL Normal [facility] Comment on above: Performed By: #### C MP, LIPID #### [facility] [address] [address] [address] Kristen Gambino PROF 14(COMP METB)on 022 Albumin [Mass/Vol] 3.7 g/dL Normal 3.4-5.0 [facility] Comment on above: Performed By: #### C MP, LIPID #### [facility] [address] [address] [address] Kristen Gambino Albumin/Globulin [Mass ratio] 0.8 {ratio} Normal [facility] Comment on above: Performed By: #### C MP, LIPID #### [facility] [address] [address] [address] Kristen Gambino ALP [Catalytic activity/Vol] 70 U/L Normal 46-116 [facility] Comment on above: Performed By: #### C MP, LIPID #### [facility] [address] [address] [address] Kristen Gambino ALT [Catalytic activity/Vol] 35 U/L Normal 14-59 [facility] Comment on above: Performed By: #### C MP, LIPID #### [facility] [address] [address] [address] Kristen Gambino Anion gap [Moles/Vol] 13.1 mmol/L Normal [facility] Comment on above: Performed By: #### C MP, LIPID #### [facility] [address] [address] [address] Kristen Gambino AST [Catalytic activity/Vol] 19 U/L Normal 15-37 [facility] Comment on above: Performed By: #### C MP, LIPID #### [facility] [address] [address] [address] Kristen Gambino Bilirubin [Mass/Vol] 0.7 mg/dL Normal 0.2-1.3 [facility] Comment on above: Performed By: #### C MP, LIPID #### [facility] [address] [address] [address] Kristen Gambino Calcium [Mass/Vol] 8.5 mg/dL Normal 8.5-10.1 [facility] Comment on above: Performed By: #### C MP, LIPID #### [facility] [address] [address] [address] Kristen Gambino Chloride [Moles/Vol] 102 mmol/L Normal 98-107 [facility] Comment on above: Performed By: #### C MP, LIPID #### [facility] [address] [address] [address] Kristen Gambino CO2 [Moles/Vol] 25.9 mmol/L Normal 22.0-30.0 [facility] Comment on above: Performed By: #### C MP, LIPID #### [facility] [address] [address] [address] Kristen Gambino Creatinine [Mass/Vol] 0.62 mg/dL Normal 0.52-1.[address] [facility] Comment on above: Performed By: #### C MP, LIPID #### [facility] [address] [address] [address] Kristen Gambino EGFR-AF [place]LANDER >60 Normal >=60 [facility] Comment on above: Performed By: #### C MP, LIPID #### [facility] [address] [address] [address] Kristen Gambino EGFR-NON AF [place] >60 Normal >=60 [facility] Comment on above: Performed By: #### C MP, LIPID #### [facility] [address] [place] [address] Dr. Kristen Gambino Globulin (S) [Mass/Vol] 4.4 g/dL Normal [facility] Comment on above: Performed By: #### C MP, LIPID #### [facility] [address] [address] [address] Kristen Gambino Glucose [Mass/Vol] 104 mg/dL Normal 74-106 [facility] Comment on above: Performed By: #### C MP, LIPID #### [facility] [address] [address] [address] Kristen Gambino Potassium [Moles/Vol] 4.0 mmol/L Normal 3.4-5.[address] [facility] Comment on above: Performed By: #### C MP, LIPID #### [facility] [address] [address] [address] Kristen Gambino Protein [Mass/Vol] 8.1 g/dL Normal 6.1-8.2 [facility] Comment on above: Performed By: #### C MP, LIPID #### [facility] [address] [address] [address] Kristen Gambino Sodium [Moles/Vol] 137 mmol/L Normal 137-145 [facility] Comment on above: Performed By: #### C MP, LIPID #### [facility] [address] [place], [place] [address] Dr. Kristen Gambino Urea nitrogen [Mass/Vol] 12.0 mg/dL Normal 7.0-18.0 [facility] Comment on above: Performed By: #### C MP, LIPID #### [facility] [address] [place], [place] [address] Dr. Kristen Gambino Urea nitrogen/Creatinine [Mass ratio] 19.4 mg/mg Normal [facility] Comment on above: Performed By: #### C MP, LIPID #### [facility] [address] [place], [place] [address] Dr. Kristen Gambino PROGRESSon 10-21-2017 PROGRESS HNO ID: [id number] thor: Isaac Carrasco: (none)Author Type: PhysicianType: Progress NotesFiled: 10/21/2017 2:01 PMNote Text:PATIENT NAME: Gladis DamianNickRN: [id number] PHYSICIAN: AVINASH Rubin [facility] [id number] CARE PHYSICIAN: MASOOD Rubin PHYSICIANS:CHIEF COMPLAINT: Pituitary [...] for5 days straight. Went to ER 02/26. [place] was negative, strep negative.Flu negative. She was [...] plan. I answered all questionssatisfactorily..Tulio Shelton D.O.Medical OncologistAdvanced Care Hospital of [facility] CNOVSPon 10-20-2017 CNOVSP Visit (SP) Office ([place]) -------CHIPGLADIS COFFEY ([id number]) 1975 FDate Time Provider Department10/20/17 10:00 AM ISAAC SHELTON During your visit today, we recorded the following information about you: Temperature Pulse Respiration Blood pressure 98.5 degrees 69/minute 18/minute 159/106 Weight Height 105.9 kg 1.575 Kassidy Shelton DO 10/21/2017 2:01 PM SignedPATIENT NAME: Gladis ElderRN: [id number] PHYSICIAN: Joseph Harris DO[address] [facility] [id number] CARE PHYSICIAN: MASOOD Rubin PHYSICIANS:CHIEF COMPLAINT: Pituitary [...] for 5days straight. Went to ER 02/26. [place] was negative, strep negative. Flunegative. 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]Order(s):CONSULT TO ENDOCRINOLOGY [9007] Order #: [id number]: 1Disposition: Return in about 7 months (around [...] by ISAAC SHELTON DO on 10/21/17 Normal [facility] Remote Abs Gran + CBC (for F HC use only)on 10-20-2017 Absol Gran Count 6.74 k/uL Normal 1.45-7.50 [facility] Erythrocyte distribution width Auto Ratio (RBC) 13.9 % Normal 11.5-15.0 [facility] Erythrocytes (RBC) 4.76 10*6/uL Normal 3.90-5.20 [facility] Hematocrit (HCT) 39.5 % Normal 36.0-46.0 [facility] Hemoglobin mass conc (Bld) 13.4 g/dL Normal 11.5-15.5 [facility] MCH 28.2 pG Normal 26.0-34.0 [facility] MCHC mass conc (RBC) 33.9 g/dL Normal 30.5-36.0 [facility] MCV 83.0 fL Normal 80.0-100.0 [facility] Platelet mean volume (PMV) 9.4 fL Normal 9.0-12.7 [facility] Platelets 434 10*3/uL High 150-400 [facility] WBC (Leukocytes) 10.26 10*3/uL Normal 3.70-11.00 [facility] CNOVSPon 10-09-2017 CNOVSP Visit (SP) Office ([place]) -------GLADIS MICHAEL ([id number]) 1975 FDate Time Provider Department10/09/17 11:15 AM ISAAC SHELTON During your visit today, we recorded the following information about you: Temperature Pulse Respiration Blood pressure 98 degrees 75/minute 18/minute 151/106 Weight Height 111 kg 1.575 Isaac Myers 10/10/2017 2:10 AM SignedPATIENT NAME: Gladis ElderRN: [id number] PHYSICIAN: AVINASH Rubin [facility] [id number] CARE PHYSICIAN: MASOOD Rubin PHYSICIANS:CHIEF COMPLAINT: Lymphocytosis [...] and base of skull jesús.make f/u with myelmillicent and Dr. Hernandez.. H PI: This is [...] for 5days straight. Went to ER 02/26. [place] was negative, strep negative. Flunegative. She was [...] plan. I answered allquestions satisfactorily..Hai Shelton D.O.Medical OncologistWalla Walla [facility] [place], [place]Referring Provider: ISAAC SHELTON [[id number]]Allergies As of Date: 10/09/2017 Noted Allergy ReactionTOPROL XL (METOPROLOL) 04/11/2016 14 - Other: See Comments Comments: heart races per patientDate Reviewed: 10/09/2017Reviewed by: Denise Witt - Fully AssessedReason for Visit: lymphocytosis [Other] Cmt: follow up per nursePrimary Visit Diagnosis:Lymphocytosis [D72.820] Other Visit Diagnosis:Cervical adenopathy [R59.0]Order(s):CT NECK SOFT TISSUE W IVCON [9275141] Order #: [id number] FUTURE [] iv contrast (radiology procedure)Inject 1 [...] 1 EachRfl: 0 CT CHEST WO IVCON [9203305] Order #: [id number] FUTURE CT CHEST W IVCON [[id number]] Order #: [id number] FUTURE iv contrast (radiology procedure)CT Chest W [...] jesús. make f/u with myelf and Dr. Hernandez..Follow-up and Disposition History RecordedPrescriptions [...] by ISAAC SHELTON DO on 10/10/17 Normal [facility] PROGRESSon 10-09-2017 PROGRESS HNO ID: [id number] thor: Isaac Shelton JService: (none)Author Type: PhysicianType: Progress NotesFiled: 10/10/2017 2:10 AMNote Text:PATIENT NAME: Gladis PatelarMRN: [id number] PHYSICIAN: AVINASH Rubin [facility] [id number] CARE PHYSICIAN: MASOOD Rubin PHYSICIANS:CHIEF COMPLAINT: Lymphocytosis [...] for5 days straight. Went to ER 02/26. [place] was negative, strep negative.Flu negative. She was [...] plan.I answered all questions satisfactorily..Hai Shelton D.O.Medical OncologistD[place], [place] Normal [facility] APTTon 10-06-2017 aPTT 22.4 s Low 23.0-32.4 [facility] Comment on above: Result Comment: Unfr actionated [...] laboratory APTT reagent in use throughout the [facility]. Performed By: #### P T, PTT, BMP, HFP, LD6, WSR, SEPG, MPASRM, KLFRS ####[facility] [place], [place] [phone] Basic Metabolic Panlon 10-06 Anion gap 12 mmol/L Normal 9-18 [facility] Comment on above: Performed By: #### P T, PTT, BMP, HFP, LD6, WSR, SEPG, MPASRM, KLFRS ####[facility], [place] [phone] Calcium 9.5 mg/dL Normal 8.5-10.2 [facility] Comment on above: Performed By: #### P T, PTT, BMP, HFP, LD6, WSR, SEPG, MPASRM, KLFRS ####[facility], [place] [phone] Chloride 96 mmol/L Low 97-105 [facility] Comment on above: Performed By: #### P T, PTT, BMP, HFP, LD6, WSR, SEPG, MPASRM, KLFRS ####[place] [id number] [phone] CO2 26 mmol/L Normal 22-30 [facility] Comment on above: Performed By: #### P T, PTT, BMP, HFP, LD6, WSR, SEPG, MPASRM, KLFRS ####[place] [phone] Creatinine 0.54 mg/dL Low 0.58-0.96 [facility] Comment on above: Performed By: #### P T, PTT, BMP, HFP, LD6, WSR, SEPG, MPASRM, KLFRS ####[address] [place] [phone] eGFR (non-black) mL/min/{1.73_m2} Normal [facility] Comment on above: Result Comment: eGFR [...] BMP, HFP, LD6, WSR, SEPG, MPASRM, KLFRS ####[address] [phone] Glucose mass conc 81 mg/dL Normal 74-99 [facility] Comment on above: Result Comment: The Citizen [place] Diabetes Association (ADA) provides guidance for cutoff [...] Standards of Medical Care in Diabetes 2016, Citizen [place] Diabetes Association. Diabetes Care. 2016.39(Suppl 1). Performed By: #### P T, PTT, BMP, HFP, LD6, WSR, SEPG, MPASRM, KLFRS ####[place] [address] [phone] Potassium molar conc 4.4 mmol/L Normal 3.7-5.1 [facility] Comment on above: Performed By: #### P T, PTT, BMP, HFP, LD6, WSR, SEPG, MPASRM, KLFRS ####[place] [address] [address] [phone] Sodium 134 mmol/L Low 136-144 [facility] Comment on above: Performed By: #### P T, PTT, BMP, HFP, LD6, WSR, SEPG, MPASRM, KLFRS ####[place] [address] [phone] Urea nitrogen 10 mg/dL Normal 7-21 [facility] Comment on above: Performed By: #### P T, PTT, BMP, HFP, LD6, WSR, SEPG, MPASRM, KLFRS ####[place] [place] [address] [address] [place] [phone] Hepatic Functn Panelon 10-06 Alanine aminotransferase (ALT) 20 U/L Normal 7-38 [facility] Comment on above: Performed By: #### P T, PTT, BMP, HFP, LD6, WSR, SEPG, MPASRM, KLFRS ####[place] [address] [address] [place] [phone] Albumin 4.3 g/dL Normal 3.9-4.9 [facility] Comment on above: Performed By: #### P T, PTT, BMP, HFP, LD6, WSR, SEPG, MPASRM, KLFRS ####[place] [address]ClevelandPatrick [place] [phone] Alkaline phosphatase (ALP) 64 U/L Normal 32-117 [facility] Comment on above: Performed By: #### P T, PTT, BMP, HFP, LD6, WSR, SEPG, MPASRM, KLFRS ####[place] [address] [address] [place] [phone] Aspartate aminotransferase (AST) 14 U/L Normal 13-35 [facility] Comment on above: Performed By: #### P T, PTT, BMP, HFP, LD6, WSR, SEPG, MPASRM, KLFRS ####[place] [address] [address]David [place] [phone] Bilirubin (total) 0.3 mg/dL Normal 0.2-1.3 [facility] Comment on above: Performed By: #### P T, PTT, BMP, HFP, LD6, WSR, SEPG, MPASRM, KLFRS ####[place] [address] [address] [place] [phone] Bilirubin,Conjugate d <0.2 Normal <0.2 [facility] Comment on above: Performed By: #### P T, PTT, BMP, HFP, LD6, WSR, SEPG, MPASRM, KLFRS ####[place] [address]ClevelandPatrick [place] [phone] Protein 7.9 g/dL Normal 6.3-8.0 [facility] Comment on above: Performed By: #### P T, PTT, BMP, HFP, LD6, WSR, SEPG, MPASRM, KLFRS ####[place] [address] [place] [phone] [place]/Cope,Free,Seron 2017 K/L Ratio, Serum 1.83 High 0.26-1.65 [facility] Comment on above: Performed By: #### P T, PTT, BMP, HFP, LD6, WSR, SEPG, MPASRM, KLFRS ####[facility], [place] [phone] [place], Free, Serum 22.5 mg/L High 3.30-19.40 [facility] Comment on above: Result Comment: Rare ly, increased serum free light chains values may not be detected due to antigen excess phenomenon. Results should always be correlated with other laboratory results and clinical findings. Performed By: #### P T, PTT, BMP, HFP, LD6, WSR, SEPG, MPASRM, KLFRS ####[facility]CAn[address], [place] [phone] Lambda, Free, Serum 12.3 mg/L Normal 5.7-26.3 [facility] Comment on above: Result Comment: Rare ly, increased serum free light chains values may not be detected due to antigen excess phenomenon. Results should always be correlated with other laboratory results and clinical findings. Performed By: #### P T, PTT, BMP, HFP, LD6, WSR, SEPG, MPASRM, KLFRS ####[facility]CAn[address], [place] [phone] LDon 10-06-2017 LD 141 U/L Normal 135-214 [facility] Comment on above: Performed By: #### P T, PTT, BMP, HFP, LD6, WSR, SEPG, MPASRM, KLFRS ####[place] [address]CAn[place], [place] [phone] Monoclonl Protein,Blon 10-06 MPA Interpretation SEE COMMENT Normal [facility] Comment on above: Result Comment: Atyp ical restricted bands are present in the IgG and lambda regions. Consistent with IgG lambda monoclonal gammopathy. Performed By: #### P T, PTT, BMP, HFP, LD6, WSR, SEPG, MPASRM, KLFRS ####[place] [address] [address] [place] [phone] MPA Parminder/Milner Ratio 2.12 Normal 1-3 [facility] Comment on above: Performed By: #### P T, PTT, BMP, HFP, LD6, WSR, SEPG, MPASRM, KLFRS ####[place] [phone] MPA Result M protein is present. Critically abnormal No M protein is identified. [facility] Comment on above: Performed By: #### P T, PTT, BMP, HFP, LD6, WSR, SEPG, MPASRM, KLFRS ####[address]obby [place] [phone] MPA Serum IgA 130 mg/dL Normal 78-391 [facility] Comment on above: Performed By: #### P T, PTT, BMP, HFP, LD6, WSR, SEPG, MPASRM, KLFRS ####[address]CConnie [place] [phone] MPA Serum IgG 1450 mg/dL High 717-1411 [facility] Comment on above: Performed By: #### P T, PTT, BMP, HFP, LD6, WSR, SEPG, MPASRM, KLFRS ####[place] [address] [place] [phone] MPA Serum IgM 123 mg/dL Normal 53-334 [facility] Comment on above: Performed By: #### P T, PTT, BMP, HFP, LD6, WSR, SEPG, MPASRM, KLFRS ####[place] [address] [place] [phone] Serum [place] 1260 mg/dL Normal 534-1267 [facility] Comment on above: Performed By: #### P T, PTT, BMP, HFP, LD6, WSR, SEPG, MPASRM, KLFRS ####[place] [address]CB[address] [place] [phone] Serum Lambda 595 mg/dL Normal 253-653 [facility] Comment on above: Performed By: #### P T, PTT, BMP, HFP, LD6, WSR, SEPG, MPASRM, KLFRS ####[address]obby [place] [phone] Staff Review Reviewed by Delores Means [place] ([id number]) Normal [facility] Comment on above: Performed By: #### P T, PTT, BMP, HFP, LD6, WSR, SEPG, MPASRM, KLFRS ####[address] [place] [phone] Protein Electrophor.on 10-06 Albumin 3.93 g/dL Normal 3.37-4.23 [facility] Comment on above: Performed By: #### P T, PTT, BMP, HFP, LD6, WSR, SEPG, MPASRM, KLFRS ####[address]obby [place] [phone] Alpha 1 Globulin 0.16 gm/dL Low 0.18-0.31 [facility] Comment on above: Performed By: #### P T, PTT, BMP, HFP, LD6, WSR, SEPG, MPASRM, KLFRS ####[address] [place] [phone] Alpha 2 Globulin 0.80 gm/dL Normal 0.52-0.97 [facility] Comment on above: Performed By: #### P T, PTT, BMP, HFP, LD6, WSR, SEPG, MPASRM, KLFRS ####[place] [address]CB[address] [place] [phone] Beta Globulin 1.11 gm/dL Normal 0.84-1.36 [facility] Comment on above: Performed By: #### P T, PTT, BMP, HFP, LD6, WSR, SEPG, MPASRM, KLFRS ####[place] [address]CAn[place], [place] [phone] Gamma Globulin 1.49 gm/dL High 0.70-1.44 [facility] Comment on above: Performed By: #### P T, PTT, BMP, HFP, LD6, WSR, SEPG, MPASRM, KLFRS ####[place] [address], [place] [phone] Interpretation SEE COMMENT [facility] Comment on above: Result Comment: An M protein is identified on protein electrophoresis.See separate immunofixation report for characterization of the M protein.M protein is present on the background of a polyclonal immunoglobulin population. Quantitation of the M protein may overestimate the amount of M protein present. Performed By: #### P T, PTT, BMP, HFP, LD6, WSR, SEPG, MPASRM, KLFRS ####[place] [address] [place] [phone] M Protein Location Gamma fraction Normal [facility] Comment on above: Performed By: #### P T, PTT, BMP, HFP, LD6, WSR, SEPG, MPASRM, KLFRS ####[place] [address]Brix[address], [place] [phone] M Ja Concentratn 0.18 gm/dL High 0.00 [facility] Comment on above: Performed By: #### P T, PTT, BMP, HFP, LD6, WSR, SEPG, MPASRM, KLFRS ####[address] [place] [phone] SPE Staff Review Reviewed by Delores Means MD ([id number]) [facility] Comment on above: Performed By: #### P T, PTT, BMP, HFP, LD6, WSR, SEPG, MPASRM, KLFRS ####[place] [address], [place] [phone] Total Protein, SPE 7.5 g/dL Normal 6.0-8.4 [facility] Comment on above: Performed By: #### P T, PTT, BMP, HFP, LD6, WSR, SEPG, MPASRM, KLFRS ####[facility] [place], [place] [phone] Protimeon 10-06-2017 INR Coag RelTime (Bld) 1.0 {INR} Normal 0.9-1.3 [facility] Comment on above: Result Comment: Muna min K Antagonist (VKA) Therapeutic Range: INR 2 to 3 (Target INR of 2.5)Note: For patients treated with VKA drugs, such as warfarin, the [place] [employer]icians 2012 Guideline recommends [...] of 3).Sunita GH, et al. Chest 2012, 141:7S-47SNishromeliaura RA, et al. [facility] 2017, 70: 252-289 Performed By: #### P T, PTT, BMP, HFP, LD6, WSR, SEPG, MPASRM, KLFRS ####[facility] [place], [place] [phone] Performed By: #### V WFPN ####[place] [address] [place], [place] [phone] PT Sec 10.3 sec Normal 9.7-13.0 [facility] Comment on above: Performed By: #### P T, PTT, BMP, HFP, LD6, WSR, SEPG, MPASRM, KLFRS ####[facility]CAn[address], [place] [phone] Performed By: #### V WFPN ####[facility]CBobby [place] [phone] Remote CBCDIF (for [facility] use o nly)on 10-06-2017 Abs Baso 0.12 k/uL High <0.11 [facility] Comment on above: Performed By: #### R CBCDF ####[place] [address]Cleveland[address] [place] [phone] Abs [place] 0.85 k/uL Normal <0.87 [facility] Comment on above: Performed By: #### R CBCDF ####[place] [address] [place] [phone] Abs Neut 9.52 k/uL High 1.45-7.50 [facility] Comment on above: Performed By: #### R CBCDF ####[place] [address]ClevelDavid [place] [phone] Basophils/100 WBC Auto (Bld) 0.9 % Normal [facility] Comment on above: Performed By: #### R CBCDF ####[place] [address] [place] [phone] DTYPE Auto Diff Normal [facility] Comment on above: Performed By: #### R CBCDF ####[facility]ClevelandS[place], [place] [phone] Eosinophils 0.12 10*3/uL Normal <0.46 [facility] Comment on above: Performed By: #### R CBCDF ####[place] [address]ClevelandS[address], [place] [phone] Eosinophils/100 leukocytes 0.9 % Normal [facility] Comment on above: Performed By: #### R CBCDF ####[place] [address], [place] [phone] Erythrocyte distribution width Auto Ratio (RBC) 13.8 % Normal 11.5-15.0 [facility] Comment on above: Performed By: #### R CBCDF ####[place] [address], [place] [phone] Erythrocytes (RBC) 10*6/uL Normal <0.01 [facility] Comment on above: Performed By: #### R CBCDF ####[place] [address], [place] [phone] Erythrocytes (RBC) 0.0 /100 WBC Normal 0 [facility] Comment on above: Performed By: #### R CBCDF ####[place] [address], [place] [phone] Erythrocytes (RBC) 4.46 10*6/uL Normal 3.90-5.20 [facility] Comment on above: Performed By: #### R CBCDF ####[place] [address], [place] [phone] Hematocrit (HCT) 37.7 % Normal 36.0-46.0 [facility] Comment on above: Performed By: #### R CBCDF ####[place] [address], [place] [phone] Hemoglobin mass conc (Bld) 12.6 g/dL Normal 11.5-15.5 [facility] Comment on above: Performed By: #### R CBCDF ####[place] [address], [place] [phone] Lymphocytes 2.67 10*3/uL Normal 1.00-4.00 [facility] Comment on above: Performed By: #### R CBCDF ####[place] [address], [place] [phone] Lymphocytes/100 leukocytes 20.1 % Normal [facility] Comment on above: Performed By: #### R CBCDF ####[facility], [place] [phone] MCH 28.3 pG Normal 26.0-34.0 [facility] Comment on above: Performed By: #### R CBCDF ####[facility]CAn[place], [place] [phone] MCHC mass conc (RBC) 33.4 g/dL Normal 30.5-36.0 [facility] Comment on above: Performed By: #### R CBCDF ####[place] [address], [place] [phone] MCV 84.5 fL Normal 80.0-100.0 [facility] Comment on above: Performed By: #### R CBCDF ####[place] [address], [place] [phone] Monocytes/100 leukocytes 6.4 % Normal [facility] Comment on above: Performed By: #### R CBCDF ####[place] [address], [place] [phone] Neutrophils/100 WBC Auto (Bld) 71.7 % Normal [facility] Comment on above: Performed By: #### R CBCDF ####[place] [address], [place] [phone] Platelet mean volume (PMV) 10.0 fL Normal 9.0-12.7 [facility] Comment on above: Performed By: #### R CBCDF ####[facility], [place] [phone] Platelets 434 10*3/uL High 150-400 [facility] Comment on above: Performed By: #### R CBCDF ####[place] [address], [place] [phone] WBC (Leukocytes) 13.28 10*3/uL High 3.70-11.00 [facility] Comment on above: Performed By: #### R CBCDF ####[address] [phone] Sed Rate Westergrenon 2017 Sed Rate Westergren 27 mm/hr High 0-20 [facility] Comment on above: Performed By: #### P T, PTT, BMP, HFP, LD6, WSR, SEPG, MPASRM, KLFRS ####[address] [phone] von Willebrand Diagon 2017 aPTT 26.7 s Normal 23.0-32.4 [facility] Comment on above: Result Comment: Unfr actionated [...] laboratory APTT reagent in use throughout the [facility]. Performed By: #### V SABINAPN ####[address] [phone] CBA/VWF Ratio 0.7 Normal >0.5 [facility] Comment on above: Performed By: #### V WFPN ####[address] [phone] COL/ADP Cartridge 127 CT (sec) High <118 [facility] Comment on above: Result Comment: Resu lts are reported as Closure Time (CT) in seconds. Performed By: #### V WFPN ####[address] [phone] COL/EPI Cartridge 117 CT (sec) Normal <199 [facility] Comment on above: Result Comment: Resu lts are reported as Closure Time (CT) in seconds. Performed By: #### V WFPN ####[place] [address] [place], [place] [phone] Collagen Binding-CBA 118 % Normal 41-161 [facility] Comment on above: Result Comment: This test uses a reagent or kit labeled by the coater operator insulation board as research use only and it is used per coater operator insulation board's instructions. Its performance characteristics were determined by [facility]'s [facility] [place] in a manner consistent with CLIA requirements. This test has not been cleared by the U.S. Food and Drug Administration. Performed By: #### V WFPN ####[address] [phone] Factor VIII:C Assay 165 % Normal 50-173 [facility] Comment on above: Performed By: #### V WFPN ####[address] [phone] FVIII/VWF Ratio 1.0 Normal >0.4 [facility] Comment on above: Performed By: #### V WFPN ####[address] [phone] Interpretation(VW) (NOTE) Normal [facility] Comment on above: Result Comment: Perf [...] medication history. Performed By: #### V WFPN ####[place] [address], [place] [phone] Ristocetin Aggreg Normal dose response Normal [facility] Comment on above: Performed By: #### V WFPN ####[address] [phone] Ristocetin Co-Factor 150 % High 42-146 [facility] Comment on above: Performed By: #### V WFPN ####[address] AvBrixey, [place] [phone] Ristocetin/VWF Ratio 0.9 Normal >0.4 [facility] Comment on above: Performed By: #### V WFPN ####[place] [address], [place] [phone] von Willebrand Ag 159 % Normal 50-173 [facility] Comment on above: Performed By: #### V WFPN ####[address] [place], [place] [phone] von Willebrand Mult Normal multimer amou nt and pattern. Normal [facility] Comment on above: Result Comment: Revi ewed by Joleen Shore M.D.,Ph.D ([id number])This test was developed and its performance characteristics determined by [facility]'s [facility] [place] ([facility]).It has not been cleared or approved by the FDA. -[facility] is regulated under CLIA as qualified to perform high-complexity testing.This test is used for clinical purposes. It should not be regarded as investigational or for research. Performed By: #### V WFPN ####[facility] [address] [place], [place] [phone] CNOVon 09-25-2017 CNOV Office Visit (CRISTINA) -------GLADIS MICHAEL ([id number]) [address] [facility] Provider Department09/25/17 10:30 AM JESUS CHEATHAM During your visit today, we recorded the following information about you: Pulse Respiration Blood pressure Weight 68/minute 18/minute 139/78 108 kg Height 1.575 Rishi Cheatham MD 09/25/2017 10:54 AM [facility] Department of Cardiovascular MedicineOUTPATIENT VISIT DATE 09/25/16OUTPATIENT VISIT TYPEESTABLISHEDPRIMARY CARE PHYSICIAN:Joseph Harris, [address] [facility] [address]Fjrvg: [phone]: [phone] COMPLAINT:Patient presents with:Follow UpHISTORY OF PRESENT ILLNESS:Gladis Michael is a 41 year old female with a past cardiac history ofpalpitations, hypertensive episodes associated with flushing.05/22/2017The patient presents today as a new consult. The patient has previously beencared for by a assistant chief engineer in [place]. She has been on pindolol andlisinopril for many years. [facility] She claims that metoprolol made her heart [...] had a complete workup in [facility] including a cardiac CTA, pharmacologic stress, echo and monitors. Unfortunately I do not have any of those records to review. The patient wasseen in the emergency room earlier today for epistaxis. She also [place]he [place] with a complaint of dizziness. [...] kg (238 lb) SpO2 100% BMI 43.53 kg/q6Lhsxbqi: Well appearing, in no acute distress.Eyes: Conjunctiva [...] for years. Patient had negative workup in [place]. Placed onpindolol and lisinopril.4. Non-rheumatic mitral regurgitation, [...] provided to the requesting physician by [facility] or to the requesting physician via U.S. Mail.This document was generated utilizing [employer]. I have reviewed andverified that the contents of the document are accurate with the exception ofminor grammatical, spelling and punctuation errors.CONTACT INFORMATION:Thank you for allowing us to participate in the care of this very pleasantpatient. Please free to contact us if we can be of any further assistance.Jesus Cheatham MD, [facility] and [facility] MurrayIsland Hospitalment of Cardiovascular MedicineScci Hospital Limart and Vascular InstituteBlanch[facility], [place] [address]Isbzxq: [phone] Referring Provider: JOSEPH HARRIS [[id number]]Allergies As of Date: 09/25/2017 Noted Allergy ReactionTOPROL XL (METOPROLOL) 04/11/2016 14 - Other: See Comments Comments: heart races per patientDate Reviewed: 09/25/2017Reviewed by: Jesus Cheatham - Fully AssessedReason for Visit: Follow Up [171]Primary Visit Diagnosis:Essential hypertension [I10] Other Visit Diagnoses:Premature atrial complexes [I49.1] PVC (premature ventricular contraction) [I49.3] Obesity, Class III, BMI 40-49.9 (morbid obesity) ([facility]) [E66.01]Order(s):lisinopril (ZESTRIL, PRINIVIL) 5 mg tabletTake 1 [...] RN 09/25/2017 10:15 AM >> JEROME BYRNES [facility] Sep 25, 2017 10:15 AM Received from: External Pharmacy >> Shane Velasquez RN 09/25/2017 10:16 AM >> JEROME BYRNES [facility] Sep 25, 2017 10:16 AMProblem List As [...] Status:Closed by NANI CHEATHAM MD on 09/25/17 Normal [facility] PROGRESSon 09-25-2017 PROGRESS HNO ID: [id number] thor: Jesus Petersonervice: (none)Author Type: PhysicianType: Progress NotesFiled: 09/25/2017 10:54 AMNote Text:Heart and Vascular [facility] Department of Cardiovascular MedicineOUTPATIENT VISIT DATE 09/25/16OUTPATIENT VISIT TYPEESTABLHIGHLANDS-CASH[facility]ERS [facility] PHYSICIAN:AVINASH Rubin [facility] [address]Vyjzl: [phone]: [phone] COMPLAINT:Patient presents with:Follow UpHISTORY OF PRESENT ILLNESS:Gladis Michael is a 41 year old female with a past cardiac history ofpalpitations, hypertensive episodes associated with flushing.05/22/2017The patient presents today as a new consult. The patient has previouslybeen cared for by a assistant chief engineer in [place]. She has been on pindolol andlisinopril for many years. She apparently did not tolerate metoprolol inthe past. She claims that metoprolol made her heart rate go into pvs101i. The patient states that she has episodes off and on of a flushedfeeling followed by high blood pressure readings and dizziness. She alsofeels her heart racing. She feels this has been worse over the past 2weeks. She has had episodes like this though for many years. She [facility] including a cardiac CTA,pharmacologic stress, echo and monitors. Unfortunately I do not have anyof those records to review. The patient was seen in the emergency roomearlier today for epistaxis. [place] of [place]. Her workup wasnegative. There was no evidence of any arrhythmia during her workup hereat this emergency room today. Her blood tests were within normal limits.Her troponin was normal. EKG was unremarkable. The patient admits thatshe gets very anxious. She has had problems with this for some time. [facility] her on Zoloft. She [...] kg (238 lb) SpO2 100% BMI 43.53 kg/z8Ohmezlg: Well appearing, in no acute distress.Eyes: Conjunctiva [...] for years. Patient had negative workup in [place]. Placedon pindolol and lisinopril.4. Non-rheumatic mitral regurgitation, [...] provided to the requesting physician by way [facility] or to the requesting physician via U.S. Mail.This document was generated utilizing [employer] dictation. I have reviewedand verified that the contents of the document are accurate with theexception of minor grammatical, spelling and punctuation errors.CONTACT INFORMATION:Thank you for allowing us to participate in the care of this very pleasantpatient. Please free to contact us if we can be of any furtherassistance.Jesus Cheatham MD, FACCRobert and Mary MurrayDealta vista regional hospitalment of Cardiovascular MedicineScci Hospital Limart and [facility] Institute[facility] [id number].[place], [place] [address]Zfiraa: [phone] Normal [facility] CT-CT Head or Brain w/o Cont rast IMPORTon 09-23-2017 CT-CT Head or Brain w/o Contrast IMPORT Images were obtained outside of [facility] [id number] Normal [facility] CNOVSPon 06-05-2017 CNOVSP Visit (SP) Office (HE[place]) -------GLADIS MICHAEL ([id number]) 1975 FDate Time Provider Rbmsjwbfjq81/28/17 3:15 PM ISAAC SHELTON During your visit today, we recorded the following information about you: Temperature Respiration Blood pressure Weight 98.7 degrees 18/minute 168/82 105.1 kg Height 1.6 Kassidy Shelton DO 06/07/2017 12:55 AM SignedPATIENT NAME: Gladis LocoN: [id number] PHYSICIAN: Joseph Harris DO[address] [facility] [address]UECWJIJ CARE PHYSICIAN: MASOOD Rubin PHYSICIANS:CHIEF COMPLAINT: Lymphocytosis [...] r nose and throat evaluation likely [facility] physician . We will continue [...] for5 days straight. Went to ER 02/26. [place] was negative, strep negative. Flunegative. She was [...] racing heart and elevated BP.She previously saw assistant chief engineer in [place].She is scheduled for echo. She has valvular issues [place] here. Cough, sore throat [...] plan. I answered allquestions satisfactorily..Hai Shelton D.O.Medical OncologistDover, [place]Referring Provider: ISAAC SHELTON [[id number]]Allergies As of Date: 06/05/2017 Noted Allergy ReactionTOPROL XL (METOPROLOL) 04/11/2016 14 - Other: See Comments Comments: heart races per patientDate Reviewed: 06/05/2017Reviewed by: Donna Stahl - Fully AssessedReason for Visit: Lymphocytosis [Other] Cmt: 5 week follow upPrimary Visit Diagnosis:Lymphocytosis [D72.820] Other Visit Diagnosis:Cervical adenopathy [R59.0]Order(s):HIV 1,2 COMBO (AG/AB) [SQHIV12] Order #: [id number] FUTUREDisposition: Return in about 1 year (around 06/05/2018), or cancel [place] f/u in [place]Follow-up and Disposition History RecordedPrescriptions as of 06/05/2017 Sig: PINDOLOL 5 MG TABLET Take 5 mg by mouth twice kwasi* SERTRALINE 50 MG TABLET Take 50 mg by mouth once kwasi* LISINOPRIL 2.5 MG TABLET Take 2.5 mg by mouth once buck*Problem List As Of Date 06/05/2017 Noted Resolved Lymphocytosis [D72.820] INVALID FOR* Cervical adenopathy [R59.0] INVALID FOR*Encounter Status:Closed by ISAAC SHELTON DO on 12/30/17 [facility] HIV 12 Combo (Ag/Ab)on 06-05 HIV 12 Ag/Ab Non Reactive Normal Non Reactive [facility] Comment on above: Result Comment: (NOT E)HIV Information: [place] Rev. Code 3701.243(E):This information has been disclosed [...] or diagnoses. Performed By: #### H IV12C ####[facility] [address] [place], [place] [phone] PROGRESSon 06-05-2017 PROGRESS HNO ID: [id number] thor: Isaac Carrasco: (none)Author Type: PhysicianType: Progress NotesFiled: 06/07/2017 12:55 AMNote Text:PATIENT NAME: Gladis PatelarMRN: [id number] PHYSICIAN: AVINASH Rubin [facility] [address]ANRMWGE CARE PHYSICIAN: MASOOD Rubin PHYSICIANS:CHIEF COMPLAINT: Lymphocytosis [...] r nose and [facility] physicianDr. HERNANDEZ. We will continue [...] for5 days straight. Went to ER 02/26. [place] was negative, strep negative.Flu negative. She was [...] and racing heart and elevatedBP.She previously saw assistant chief engineer in [place].She is scheduled for echo. She has valvular issues and was getting themyearly in [place] prior to moving here. Cough, sore throat [...] plan.I answered all questions satisfactorily..Hai Shelton D.O.Medical OncologistD[place], [place] Normal [facility] Remote Abs Gran + CBC (for F HC use only)on 06-05-2017 Absol Gran Count 10.28 k/uL High 1.45-7.50 [facility] Erythrocyte distribution width Auto Ratio (RBC) 13.9 % Normal 11.5-15.0 [facility] Erythrocytes (RBC) 4.91 10*6/uL Normal 3.90-5.20 [facility] Hematocrit (HCT) 39.7 % Normal 36.0-46.0 [facility] Hemoglobin mass conc (Bld) 13.2 g/dL Normal 11.5-15.5 [facility] MCH 26.9 pG Normal 26.0-34.0 [facility] MCHC mass conc (RBC) 33.2 g/dL Normal 30.5-36.0 [facility] MCV 80.9 fL Normal 80.0-100.0 [facility] Platelet mean volume (PMV) 9.5 fL Normal 9.0-12.7 [facility] Platelets 497 10*3/uL High 150-400 [facility] WBC (Leukocytes) 14.20 10*3/uL High 3.70-11.00 [facility] CNOVon 05-22-2017 CNOV Office Visit (CARDFT) -------GLADIS MICHAEL ([id number]) 1975 FDate Time Provider Gzxfmgxzay29/14/17 2:00 PM JESUS CHEATHAM During your visit today, we recorded the following information about you: Pulse Respiration Blood pressure Weight 69/minute 18/minute 139/77 101.6 kg Height 1.6 Rishi Cheatham MD 05/22/2017 3:15 PM [facility] and [facility] Institute[facility] [facility] Department of Cardiovascular MedicineOUTPATIENT VISIT DATE 05/22/17OUTPATIENT VISIT [facility] C[facility] PHYSICIAN:Joseph Harris DO[address] [facility] [address]Lahrj: [phone]: [phone] COMPLAINT:Patient presents with:PalpitationsHISTORY OF PRESENT ILLNESS:Gladis Michael is a 41 year old female with a past cardiac history ofpalpitations, hypertensive episodes associated with flushing.The patient presents today as a new consult. The patient has previously beencared for by a assistant chief engineer in [place]. She has been on pindolol andlisinopril for many years. [facility] She claims that metoprolol made her heart [...] had a complete workup in [facility] including a cardiac CTA, pharmacologic stress, echo and monitors. Unfortunately I do not have any of those records to review. The patient wasseen in the emergency room earlier today for epistaxis. She also was seen int emergency room in [place] last Jhon with a complaint of dizziness. [...] kg (224 lb) SpO2 98% BMI 39.68 kg/n4Ikzwezd: Well appearing, in no acute distress.Eyes: Conjunctiva [...] for years. Patient had negative workup in [place]. Placed onpindolol and lisinopril.4. Non-rheumatic mitral regurgitation, [...] via U.S. Mail.This document was generated utilizing Dragon dictation. I have reviewed andverified that the contents of the document are accurate with the exception ofminor grammatical, spelling and punctuation errors.CONTACT INFORMATION:Thank you for allowing us to participate in the care of this very pleasantpatient. Please free to contact us if we can be of any further assistance.Jesus Cheatham MD, [facility] and [facility] MurrayIsland Hospitalment of Cardiovascular MedicineScci Hospital Limart and [facility] [address]Fharyy: [phone] Referring Provider: ISAAC SHELTON [[id number]]Allergies As of Date: 05/22/2017 Noted Allergy ReactionTOPROL XL (METOPROLOL) 04/11/2016 14 - Other: See Comments Comments: heart races per patientDate Reviewed: 05/22/2017Reviewed by: Jeuss Cheatham - Fully AssessedReason for Visit: Palpitations [79]Primary Visit Diagnosis:Premature atrial complexes [I49.1] Other Visit Diagnoses:PVC (premature ventricular contraction) [I49.3] Palpitations [R00.2] Non-rheumatic mitral regurgitation, mild [I34.0]Order(s):ECHO [841034] Order #: [id number]: 1 FUTUREPrescriptions as of 05/22/2017 Sig: PINDOLOL [...] Status:Closed by NANI CHEATHAM MD on 05/22/17 [facility] PROGRESSon 05-22-2017 PROGRESS HNO ID: [id number] thor: Jesus EllisyService: (none)Author Type: PhysicianType: Progress NotesFiled: 05/22/2017 3:15 PMNote Text:Heart and Vascular InstituteRobert and [facility] Murray Department of Cardiovascular MedicineOUTPATIENT VISIT DATE 05/22/17OUTPATIENT VISIT [facility]YPENEWSTEW[facility] PHYSICIAN:Joseph Harris, DO[address] [place] [address]Qevps: [phone]: [phone] COMPLAINT:Patient presents with:PalpitationsHISTORY OF PRESENT ILLNESS:Gladis Michael is a 41 year old female with a past cardiac history ofpalpitations, hypertensive episodes associated with flushing.The patient presents today as a new consult. The patient has previouslybeen cared for by a assistant chief engineer in [place]. She has been on pindolol andlisinopril for many years. She apparently did not tolerate metoprolol inthe past. She claims that metoprolol made her heart rate go into lhx288s. The patient states that she has episodes off and on of a flushedfeeling followed by high blood pressure readings and dizziness. She alsofeels her heart racing. She feels this has been worse over the past 2weeks. She has had episodes like this though for many years. She [facility] including a cardiac CTA,pharmacologic stress, echo and monitors. Unfortunately I do not have anyof those records to review. [facility]. [place] of [place]iness. Her workup wasnegative. There was no evidence of any arrhythmia during her workup hereat this emergency room today. Her blood tests were within normal limits.Her troponin was normal. EKG was unremarkable. The patient admits thatshe gets very anxious. She has had problems with this for some time. [facility] her [facility] Z[facility]. She [...] kg (224 lb) SpO2 98% BMI 39.68 kg/f6Bjtcqwj: Well appearing, in no acute distress.Eyes: Conjunctiva [...] for years. Patient had negative workup in [place]. Placedon pindolol and lisinopril.4. Non-rheumatic mitral regurgitation, [...] physicianvia U.S. Mail.This document was generated utilizing [employer]on dictation. I have reviewedand verified that the contents of the document are accurate with theexception of minor grammatical, spelling and punctuation errors.CONTACT INFORMATION:Thank you for allowing us to participate in the care of this very pleasantpatient. Please free to contact us if we can be of any furtherassistance.Jesus Cheatham MD, [facility]CRhealth[facility] hospitalt and [facility] MurrayLittle [facility] of Cardiovascular MedicineScci Hospital Limart and Vascular InstituteEmily Ville [address], [place] [address]Moyyki: [phone] [facility] CNOVSPon 04-28-2017 CNOVSP Visit (SP) Office (HE[place]AS[place]) -------GLADIS MICHAEL ([id number]) 1975 FDate Time Provider Uhlvnhddpt71/20/17 11:15 AM ISAAC SHELTON During your visit today, we recorded the following information about you: Temperature Pulse Respiration Blood pressure 98.7 degrees 71/minute 18/minute 151/101 Weight Height 103.2 kg 1.6 Kassidy Shelton DO 05/03/2017 3:18 PM SignedPATIENT NAME: Gladis Daniels ChiparMRN: [id number] PHYSICIAN: Joseph Harris DO[address] [facility] [address]TMTIZSE CARE PHYSICIAN: MASOOD Rubin PHYSICIANS:CHIEF COMPLAINT: Lymphocytosis [...] (around 05/28/2017), or scans in may and f/uaft. ct neck and chest., for make f/u [...] for5 days straight. Went to ER 02/26. [place] was negative, strep negative. Flunegative. She was [...] I answered all questions satisfactorily..Hai Shelton D.O.Medical OncologistD[place], [place]Referring Provider: ISAAC SHELTON [[id number]]Allergies As of Date: 04/28/2017 Noted Allergy ReactionTOPROL XL (METOPROLOL) 04/11/2016 14 - Other: See Comments Comments: heart races per patientDate Reviewed: 04/28/2017Reviewed by: Josephine Moscoso - Fully AssessedReason for Visit: Lymphocytosis [Other] Cmt: 3 week follow upPrimary Visit Diagnosis:Lymphocytosis [D72.820]Order(s):CT CHEST WO IVCON [4401838] Order #: [id number] FUTURE CT CHEST W IVCON [9772321] Order #: [id number] FUTURE iv contrast (radiology procedure)CT Chest W [...] [address] CT NECK SOFT TISSUE W IVCON [1413411] Order #: [id number] FUTURE [] iv contrast (radiology procedure)Inject 1 [...] by ISAAC SHELTON DO on 05/03/17 Normal [facility] PROGRESSon 04-28-2017 PROGRESS HNO ID: [id number] thor: Isaac SheltonSer: (none)Author Type: PhysicianType: Progress NotesFiled: 05/03/2017 3:18 PMNote Text:PATIENT NAME: Gladis PatelarMRN: [id number] PHYSICIAN: MICHAEL Rubin[address] [place] [address]OXWCKHN CARE PHYSICIAN: Joseph Harris DOOTHER PHYSICIANS:CHIEF COMPLAINT: [...] r nose [facility] physicianDr. HERNANDEZ. We will continue to monitor [...] for5 days straight. Went to ER 02/26. [place] was negative, strep negative.Flu negative. She was [...] I answered all questions satisfactorily..Hai Shelton D.O.Medical OncologistSt. [facility]'s [facility] Abs Gran + CBC (for F HC use only)on 04-28-2017 Absol Gran Count 7.86 k/uL High 1.45-7.50 [facility] Erythrocyte distribution width Auto Ratio (RBC) 13.9 % Normal 11.5-15.0 [facility] Erythrocytes (RBC) 4.82 10*6/uL Normal 3.90-5.20 [facility] Hematocrit (HCT) 39.2 % Normal 36.0-46.0 [facility] Hemoglobin mass conc (Bld) 13.3 g/dL Normal 11.5-15.5 [facility] MCH 27.6 pG Normal 26.0-34.0 [facility] MCHC mass conc (RBC) 33.9 g/dL Normal 30.5-36.0 [facility] MCV 81.3 fL Normal 80.0-100.0 [facility] Platelet mean volume (PMV) 9.4 fL Normal 9.0-12.7 [facility] Platelets 470 10*3/uL High 150-400 [facility] WBC (Leukocytes) 11.76 10*3/uL High 3.70-11.00 [facility] CNOVon 04-10-2017 CNOV Office Visit (OTOLMN) -------GLADIS MICHAEL ([id number]) 1975 [facility] Time Provider Vsjsumizuv57/2/17 10:00 AM CANDIS HERNANDEZ OTOLMN During your visit today, we recorded the following information about you: Blood pressure Weight Height 142/85 97.5 kg 1.6 Akila Joshi Ma 04/10/2017 10:01 AM SignedTobacco Use: QuitEvernotes smoking cessation packet given? N/A - Patient is a non-smoker or quit ANDgt;1year ago.Was a referral initiated?N/A Patient is a non-smokerCandis Hernandez MD 04/16/2017 1:04 PM SignedGladis [id number] 2, 2017Oto-HNS ConsultationReferring Physician: Dr. Isaac Winston [...] further evaluated viaultrasound if clinically indicated.LabsCBCRecent Labs [id number] 13.32*HB 13.4HCT 40.2PLT 470*BMPInvalid input(s): PHOSCOAGsPHYSICAL EXAM:Vitals - BP 142/85 (BP Site: Left Arm, BP Position: Sitting, BP Cuff Size:Extra Large Adult) Ht 160 cm (5' 3ANDquot;) Wt 97.5 kg (215 lb) SpO2 98% BMI 38.09 kg/b0Meigrsrrqslruj - General Appearance: well developed, well nourished, [...] 1 Each; Refill: 0SIGNATURE: Candis Hernandez, MDPAGER: [id number] of SERVICE: April 16, 2017TIME of SERVICE: [...] disease) [K21.9]Order(s):POLYSOMNOGR AM (PSG)/HOME SLEEP TEST (HST) [0083614] Order #: [id number] FUTURE omeprazole (PRILOSEC) 20 mg capsuleTake 1 capsule by mouth once daily for 30 days.Disp: 30 capsuleRfl: 0 CT NECK SOFT TISSUE W IVCON [2262038] Order #: [id number] FUTURE [] iv contrast (radiology procedure)Inject 1 [...] 10, 2017 10:01 AM Status: SignedTobacco Use: QuitEvernotes smoking cessation packet given? N/A - Patient [...] guidelines link.Follow-up and Disposition History RecordedEncounter Number: [id number] Status:Closed by CANDIS HERNANDEZ MD on 04/16/17 Normal [facility] PROGRESSon 04-10-2017 PROGRESS HNO ID: [id number] thor: Candis Slainas: (none)Author Type: PhysicianType: Progress NotesFiled: 04/16/2017 1:04 PMNote Text:Gladis [id number] 2016Oto-HNS ConsultationReferring Physician: Dr. Isaac Winston for [...] further evaluated viaultrasound if clinically indicated.LabsCBCRecent Labs 04/07/566768XOF 13.32*HB 13.4HCT 40.2PLT 470*BMPInvalid input(s): PHOSCOAGsPHYSICAL EXAM:Vitals - BP 142/85 (BP Site: Left Arm, BP Position: Sitting, BP Cuff Size:Extra Large Adult) Ht 160 cm (5' 3 ) Wt 97.5 kg (215 lb) SpO2 98% BMI 38.09 kg/b2Zsvdhrzcgalfoh - General Appearance: well developed, well nourished, [...] the clinical encounter as documented above by theresidentfellvincent. Dr. Cole and have reviewed the note [...] Dispense: 1Each; Refill: 0SIGNATURE: Candis Hernandez, MDPAGER: [id number] of SERVICE: April 16, 2017TIME of SERVICE: 1:01 PM Normal [facility] CNOVSPon 04-07-2017 CNOVSP Visit (SP) Office (HEMASA) -------GLDAIS MICHAEL ([id number]) 1975 [facility] Time Provider Yumkkuthdu35/30/17 1:45 PM ISAAC SHELTON During your visit today, we recorded the following information about you: Temperature Pulse Respiration Blood pressure 98.5 degrees 75/minute 18/minute 156/106 Weight Height 102.2 kg 1.6 Kassidy Shelton DO 04/11/2017 10:43 AM SignedPATIENT NAME: Gladis ElderRN: [id number] PHYSICIAN: Joseph Harris DO[address] [place] [address]TVIBLBV CARE PHYSICIAN: MASOOD Rubin PHYSICIANS:CHIEF COMPLAINT: Lymphocytosis [...] on 04/07/17. Return in about 2 weeks (odzjbe8204/21/2017), or f/u 2 wks.. HPI: This is [...] for5 days straight. Went to ER 02/26. [place] was negative, strep negative. Flunegative. She was [...] I answered all questions satisfactorily..Hai Shelton D.O.Medical OncologistD[place], [place]Referring Provider: ISAAC SHELTON [[id number]]Allergies As of Date: 04/07/2017 Noted Allergy ReactionTOPROL [...] by ISAAC SHELTON DO on 04/11/17 Normal [facility] LDon 04-07-2017 LD 212 U/L Normal 135-214 [facility] Comment on above: Performed By: #### L D6 ####[facility] [address] [place], [place] [phone] PROGRESSon 04-07-2017 PROGRESS HNO ID: [id number] thor: Isaac Carrasco: (none)Author Type: PhysicianType: Progress NotesFiled: 04/11/2017 10:43 AMNote Text:PATIENT NAME: Gladis ElderRN: [id number] PHYSICIAN: MICHAEL Rubin[address] [place] [address]GWPDVOD CARE PHYSICIAN: MASOOD Rubin PHYSICIANS:CHIEF COMPLAINT: Lymphocytosis [...] for5 days straight. Went to ER 02/26. [place] was negative, strep negative.Flu negative. She was [...] 5 hours. Sees ENT on . Robert DAVID.Vitals: BP 156/106[second attempt LT arm 162/106[ Pulse [...] I answered all questions satisfactorily..Hai Shelton D.O.Medical OncologistWalla Walla General Hospital Cancer [facility] Medical CenterOon 03-27-2017 CNCO Letter TextNorth [address] [address]Mtuix: [phone]: [facility] Hospitale[address] [place], [place] [address]Jdsxe: [phone]: [facility]k[address] [place], [place] [address]Macmi: [phone]: Toll Free: [phone] [email or web address] Saad Arredondo M.D., Nick SchmidtD.Luiz Berrios M.D.Isaac Shelton D.O..Adurey Jang M.D. FACROSaju A. Rajan, M.D.March 27, 2017Gladis Michael[address] [facility] [address]Rrks Ms. Michael,You missed your scheduled appointment on 03/27/17. Please call our officeto reschedule. If you need to cancel any future appointments, please call togive us 24 hour notice so that we can offer your appointment to anotherpatient.Sincerely,Tulio Au M.D. Normal [facility] CT ABD/PEL W IVCONon 03-19- 017 CT ABD/PEL W IVCON * * *Final Report* * *DATE OF EXAM: Mar 19 2017 9:29AM [facility] 0530 - CT ABD/PEL W IVCON / [...] any questions regarding this interpretation, please call [phone].If you are unable to reach us at the number above,please feel free to contact [facility] eRadiology at [phone]_ IDCSIACN Normal [facility] CT CHEST W IVCONon 7 CT CHEST W IVCON * * *Final Report* * *DATE OF EXAM: Mar 19 2017 9:29AM [facility] 0539 - CT CHEST W IVCON / [...] any questions regarding this interpretation, please call [phone].If you are unable to reach us at the number above,please feel free to contact [facility] eRadiology at [phone]_ IDCSIACN Normal [facility] CT NECK SOFT TISSUE W IVCONo n 03-19-2017 CT NECK SOFT TISSUE W IVCON * * *Final Report* * *DATE OF EXAM: Mar 19 2017 9:28AM [facility] 0013 - CT NECK SOFT TISSUE W [...] parapharyngeal space: Fat and muscle planes are normal.Solar Sales Specialist space: Visualized mandible, muscles of mastication, pterygopalatine [...] any questions regarding this interpretation, please call [phone].If you are unable to reach us at the number above,please feel free to contact [facility] eRadiology at [phone]_ IDCSIACN Normal [facility] PROGRESSon 03-19-2017 PROGRESS HNO ID: [id number] thor: Sheri Banegas CnmtService: (none)Author Type: (none)Type: Progress NotesFiled: 03/19/2017 9:32 AMNote Text: RADIOLOGY SERVICE PROGRESS NOTESERVICE DATE: 03/19/2017SERVICE TIME: 8:33 AMPATIENT IDENTITY VERIFICATION COMPLETED USING TWO (2) METHODS: Patientconfirmed name and Date of verbally.PATIENT GENDER DATA: .femaleALLERGIES: Reviewed and unchangedMEDICATIONS REVIEWED: Not applicablePATIENT RELEVANT IMPLANT DATA REVIEWED: Not ApplicableCREATININE:Creati nineDate Value Ref Range Nrfrhc9903/14/2017 0.59 0.58 - 0.96 mg/dL Final04/11/2016 0.56 (L) 0.58 - 0.96 mg/dL Final eGFR-All Other RacesDate Value Ref Range Zgqrrv0603/14/2017 >60 . FinalComment:eGFR (Estimated GFR) Units of [...] actual GFR. eGFR- AmericanDate Value Ref Range Qwrrsi7703/14/2017 >60 Final Reference range (age 0-9 years) [...] TIME: 0907PATIENT DISCHARGED TO: Ambulatory patient, left ID department area.A Diagnostic radioactive procedure has taken place, with no furtherprecautions necessary other than routine body substance precautions. Moreinformation regarding radiation safety can be found using this link:[email or web address] [email or web address] [email or web address]/Rad%20Protection% 20-%20Diagnostic%20Nuclear% 20Medicine%20Procedures.pdf SIGNATURE: Sheri Banegas [facility] PATIENT NAME: Gladis WaltersATE: March 19, 2017 : 8:33 AM PAGER/CONTACT #: Normal [facility] Comp Metabolic Panelon 03-14 Alanine aminotransferase (ALT) 25 U/L Normal 7-38 [facility] Comment on above: Performed By: #### R ETIC, HREMOP, CMP, TSH, KLFRS, MPASRM, SEPG ####[facility] AveClevelDavid Ville [phone] Albumin 4.5 g/dL Normal 3.9-4.9 [facility] Comment on above: Performed By: #### R ETIC, HREMOP, CMP, TSH, KLFRS, MPASRM, SEPG ####[facility] AveCBobby Ville [phone] Alkaline phosphatase (ALP) 60 U/L Normal 32-117 [facility] Comment on above: Performed By: #### R ETIC, HREMOP, CMP, TSH, KLFRS, MPASRM, SEPG ####[place] [address] AveCConnie [place] [phone] Anion gap 14 mmol/L Normal 9-18 [facility] Comment on above: Performed By: #### R ETIC, HREMOP, CMP, TSH, KLFRS, MPASRM, SEPG ####[facility] AveClevelDavid Ville [phone] Aspartate aminotransferase (AST) 18 U/L Normal 13-35 [facility] Comment on above: Performed By: #### R ETIC, HREMOP, CMP, TSH, KLFRS, MPASRM, SEPG ####[facility] AveClevelDavid Ville [phone] Bilirubin (total) 0.7 mg/dL Normal 0.2-1.3 [facility] Comment on above: Performed By: #### R ETIC, HREMOP, CMP, TSH, KLFRS, MPASRM, SEPG ####[facility] [facility] [place] [phone] Calcium 9.5 mg/dL Normal 8.5-10.2 [facility] Comment on above: Performed By: #### R ETIC, HREMOP, CMP, TSH, KLFRS, MPASRM, SEPG ####[facility] [phone] Chloride 97 mmol/L Normal 97-105 [facility] Comment on above: Performed By: #### R ETIC, HREMOP, CMP, TSH, KLFRS, MPASRM, SEPG ####[place] [address] [phone] CO2 25 mmol/L Normal 22-30 [facility] Comment on above: Performed By: #### R ETIC, HREMOP, CMP, TSH, KLFRS, MPASRM, SEPG ####[place] [address] [phone] Creatinine 0.59 mg/dL Normal 0.58-0.96 [facility] Comment on above: Performed By: #### R ETIC, HREMOP, CMP, TSH, KLFRS, MPASRM, SEPG ####[place] [address] [phone] eGFR (non-black) mL/min/{1.73_m2} Normal [facility] Comment on above: Result Comment: eGFR [...] ETIC, HREMOP, CMP, TSH, KLFRS, MPASRM, SEPG ####[place] [address], [place] [phone] Glucose mass conc 126 mg/dL High 74-99 [facility] Comment on above: Result Comment: The Citizen Of [place] Diabetes Association (ADA) provides guidance for cutoff [...] Standards of Medical Care in Diabetes 2016, Citizen Of [place] Diabetes Association. Diabetes Care. 2016.39(Suppl 1). Performed By: #### R ETIC, HREMOP, CMP, TSH, KLFRS, MPASRM, SEPG ####[facility] [phone] Potassium molar conc 4.3 mmol/L Normal 3.7-5.1 [facility] Comment on above: Performed By: #### R ETIC, HREMOP, CMP, TSH, KLFRS, MPASRM, SEPG ####[facility] [phone] Protein 8.4 g/dL High 6.3-8.0 [facility] Comment on above: Performed By: #### R ETIC, HREMOP, CMP, TSH, KLFRS, MPASRM, SEPG ####[facility] [phone] Sodium 136 mmol/L Normal 136-144 [facility] Comment on above: Performed By: #### R ETIC, HREMOP, CMP, TSH, KLFRS, MPASRM, SEPG ####[facility] [phone] Urea nitrogen 10 mg/dL Normal 7-21 [facility] Comment on above: Performed By: #### R ETIC, HREMOP, CMP, TSH, KLFRS, MPASRM, SEPG ####[facility] [phone] Hepatitis Remote Panelon BSA (Body Surface Area) Negative Normal Negative [facility] Comment on above: Performed By: #### R ETIC, HREMOP, CMP, TSH, KLFRS, MPASRM, SEPG ####[facility]ClevelRaymond, [place] [phone] Hep B Core Ab,Total Negative Normal Negative [facility] Comment on above: Performed By: #### R ETIC, HREMOP, CMP, TSH, KLFRS, MPASRM, SEPG ####[facility]CAn[address], [place] [phone] Hepatitis C Ab IA Negative Normal Negative [facility] Comment on above: Performed By: #### R ETIC, HREMOP, CMP, TSH, KLFRS, MPASRM, SEPG ####[facility] [phone] HepB Surface Ab,Qual Negative Normal Negative [facility] Comment on above: Result Comment: NEGA TIVE Performed By: #### R ETIC, HREMOP, CMP, TSH, KLFRS, MPASRM, SEPG ####[facility] [phone] [place]/Cope,Free,Seron 2016 K/L Ratio, Serum 1.99 High 0.26-1.65 [facility] Comment on above: Performed By: #### R ETIC, HREMOP, CMP, TSH, KLFRS, MPASRM, SEPG ####[facility]ClevelRaymond, [place] [phone] [place], Free, Serum 32.8 mg/L High 3.30-19.40 [facility] Comment on above: Result Comment: Rare ly, increased serum free light chains values may not be detected due to antigen excess phenomenon. Results should always be correlated with other laboratory results and clinical findings. Performed By: #### R ETIC, HREMOP, CMP, TSH, KLFRS, MPASRM, SEPG ####[facility]levelDavid [place] [phone] Lambda, Free, Serum 16.5 mg/L Normal 5.7-26.3 [facility] Comment on above: Result Comment: Rare ly, increased serum free light chains values may not be detected due to antigen excess phenomenon. Results should always be correlated with other laboratory results and clinical findings. Performed By: #### R ETIC, HREMOP, CMP, TSH, KLFRS, MPASRM, SEPG ####[facility] [phone] Monoclonl Protein,Blon 03-14 MPA Parminder/Milner Ratio 2.08 Normal 1-3 [facility] Comment on above: Performed By: #### R ETIC, HREMOP, CMP, TSH, KLFRS, MPASRM, SEPG ####[facility]ClevelDavid [address] [phone] MPA Result No M protein is identified. Normal No M protein is identified. [facility] Comment on above: Performed By: #### R ETIC, HREMOP, CMP, TSH, KLFRS, MPASRM, SEPG ####[facility]levelDavid [place] [phone] MPA Serum IgA 173 mg/dL Normal 78-391 [facility] Comment on above: Performed By: #### R ETIC, HREMOP, CMP, TSH, KLFRS, MPASRM, SEPG ####[facility]levelDavid [address] [phone] MPA Serum IgG 1650 mg/dL High 717-1411 [facility] Comment on above: Performed By: #### R ETIC, HREMOP, CMP, TSH, KLFRS, MPASRM, SEPG ####[facility]ClevelandPatrick [place] [phone] MPA Serum IgM 186 mg/dL Normal 53-334 [facility] Comment on above: Performed By: #### R ETIC, HREMOP, CMP, TSH, KLFRS, MPASRM, SEPG ####[facility] [address] AveClevelandSidell, [place] [phone] Serum [place] 1540 mg/dL High 534-1267 [facility] Comment on above: Performed By: #### R ETIC, HREMOP, CMP, TSH, KLFRS, MPASRM, SEPG ####[facility]ClevelRaymond, [place] [phone] Serum Lambda 740 mg/dL High 253-653 [facility] Comment on above: Performed By: #### R ETIC, HREMOP, CMP, TSH, KLFRS, MPASRM, SEPG ####[facility] AveClevelRaymond, [place] [phone] Staff Review Reviewed by Delores Means MD ([id number]) Normal [facility] Comment on above: Performed By: #### R ETIC, HREMOP, CMP, TSH, KLFRS, MPASRM, SEPG ####[facility]CAnsonville, [place] [phone] PB LG LEUK MARKERSon 017 PB LG LEUK MARKERS Account Credited Normal [facility] Comment on above: Result Comment: BIPIN NOE PER STAFF REVIEW. FE [id number] available in [facility] under the Surgical Pathology Test listed in the Laboratory Tab. Performed By: #### L D6 ####[facility]CAnson[place], [place] [phone] WBC (Leukocytes) 13.38 10*3/uL High 3.70-11.00 [facility] Comment on above: Performed By: #### L D6 ####[facility]CAn[address], [place] [phone] Protein Electrophor.on 03-14 Albumin 3.76 g/dL Normal 3.37-4.23 [facility] Comment on above: Performed By: #### L D6 ####[place] [phone] Alpha 1 Globulin 0.19 gm/dL Normal 0.18-0.31 [facility] Comment on above: Performed By: #### L D6 ####[place] [phone] Alpha 2 Globulin 0.90 gm/dL Normal 0.52-0.97 [facility] Comment on above: Performed By: #### L D6 ####[place] [phone] Beta Globulin 1.15 gm/dL Normal 0.84-1.36 [facility] Comment on above: Performed By: #### L D6 ####[place] [phone] Gamma Globulin 1.80 gm/dL High 0.70-1.44 [facility] Comment on above: Performed By: #### L D6 ####[place] [phone] Interpretation SEE COMMENT Normal [facility] Comment on above: Result Comment: An a typical region of restricted mobility is identified on protein electrophoresis.The atypical region did not stain on accompanying immunofixation and therefore is unlikely to be a monoclonal immunoglobulin. Performed By: #### L D6 ####[place] [phone] M Protein Location N/A Normal [facility] Comment on above: Performed By: #### L D6 ####[place] [phone] M Ja Concentratn 0.00 gm/dL Normal 0.00 [facility] Comment on above: Performed By: #### L D6 ####[place] [phone] SPE Staff Review Reviewed by Delores Means MD ([id number]) Normal [facility] Comment on above: Performed By: #### L D6 ####[facility] [place], [place] [phone] Total Protein, SPE 7.8 g/dL Normal 6.0-8.4 [facility] Comment on above: Performed By: #### L D6 ####[facility] [address] [place], [place] [phone] Remote CBCDIF (for [facility] use o nly)on 03-14-2017 Abs Baso 0.14 k/uL High 0.00-0.10 [facility] Abs [place] 0.66 k/uL Normal 0.00-0.86 [facility] Abs Neut 10.25 k/uL High 1.45-7.50 [facility] Basophils/100 WBC Auto (Bld) 1.1 % Normal [facility] Eosinophils 0.08 10*3/uL Normal 0.00-0.45 [facility] Eosinophils/100 leukocytes 0.6 % Normal [facility] Erythrocyte distribution width Auto Ratio (RBC) 14.0 % Normal 11.5-15.0 [facility] Erythrocytes (RBC) 5.12 10*6/uL Normal 3.90-5.20 [facility] Hematocrit (HCT) 42.5 % Normal 36.0-46.0 [facility] Hemoglobin mass conc (Bld) 14.1 g/dL Normal 11.5-15.5 [facility] Lymphocytes 1.98 10*3/uL Normal 1.00-4.00 [facility] Lymphocytes/100 leukocytes 15.1 % Normal [facility] MCH 27.5 pG Normal 26.0-34.0 [facility] MCHC mass conc (RBC) 33.2 g/dL Normal 30.5-36.0 [facility] MCV 83.0 fL Normal 80.0-100.0 [facility] Monocytes/100 leukocytes 5.0 % Normal [facility] Neutrophils/100 WBC Auto (Bld) 78.2 % Normal [facility] Platelet mean volume (PMV) 9.6 fL Normal 9.0-12.7 [facility] Platelets 609 10*3/uL High 150-400 [facility] WBC (Leukocytes) 13.11 10*3/uL High 3.70-11.00 [facility] Reticulocyteon 03-14-2017 Abs Retic 0.073 M/uL Normal 0.0180-0.10 00 [facility] Comment on above: Performed By: #### R ETIC, HREMOP, CMP, TSH, KLFRS, MPASRM, SEPG ####[facility] [address] AveCAnsonville, [place] [phone] Retic% 1.4 % Normal 0.4-2.0 [facility] Comment on above: Performed By: #### R ETIC, HREMOP, CMP, TSH, KLFRS, MPASRM, SEPG ####[facility] [address]cawzv[address] AveCAnsonville, [place] [phone] TSHon 03-14-2017 Thyroid stimulating hormone (TSH) 0.537 uU/mL Normal 0.400-5.500 [facility] Comment on above: Result Comment: If t he patient is , TSH reference range varies by gestational period:First Trimester 0.100-2.500 uU/mLSecond Trimester 0.200-3.000 uU/mLThird Trimester 0.300-3.000 uU/mLReferences: 1. Sutton L, Delfina M, Anders EK, et al. Management of Thyroid Dysfunction during and : An Endocrine Society Clinical Practice Guideline. J Clin Endocrinol Metab, 2012:97:1148-8791. 2. Conor ROSAS. Overview of thyroid disease in . UpToDate. 2016. Accessed on November 24, 2015. Performed By: #### R ETIC, HREMOP, CMP, TSH, KLFRS, MPASRM, SEPG ####[facility] [address]CAnsonville, [place] [phone] CNOVSPon 03-13-2017 CNOVSP Visit (SP) Office ([place]) -------GLADIS MICHAEL ([id number]) 1975 FDate Time Provider Ppwghmkpab85/5/17 10:00 AM ISAAC SHELTON During your visit today, we recorded the following information about you: Temperature Pulse Respiration Blood pressure 99 degrees 96/minute 18/minute 143/93 Weight Height 103.5 kg 1.6 Kassidy Shelton DO 03/14/2017 2:41 PM SignedPATIENT NAME: Gladis Daniels JerrodRN: [id number] PHYSICIAN: Joseph Harris DO[address] [facility] [id number] CARE PHYSICIAN: MASOOD Rubin PHYSICIANS:CHIEF COMPLAINT: Lymphocytosis [...] COUNT-PROTEIN ELECTROPHORESIS W/INTERP-CBC + DIFF (FOR REMOTE [facility] USE)-KAPPA/COPE,FREE,SER-MO NOCLONAL PROT BLD W/INTERP-HEP REMOTE PANEL [...] three weeks now.Had few ER visits at [facility] last year for LUQ pain and had [...] for5 days straight. Went to ER 02/26. [place] was negative, strep negative. Flunegative. She was [...] Catheter, Enteric Contrast asdesignated per enteric contrast guidelinesALLERGIES:RUSS Patel Reactions- Toprol Xl [Metoprol* Other: See Comments [...] I answered all questions satisfactorily..Hai Shelton D.O.Medical OncologistDover, [place]Referring Provider: ISAAC SHELTON [[id number]]Allergies As of Date: 03/13/2017 Noted Allergy ReactionTOPROL XL (METOPROLOL) 04/11/2016 14 - Other: See Comments Comments: heart races per patientDate Reviewed: 03/13/2017Reviewed by: Merna Gudino - Fully AssessedReason for Visit: Lymphocytosis [Other] Cmt: follow upPrimary Visit Diagnosis:Lymphocytosis [D72.820]Order(s):CT ABD/PEL W IVCON [[id number]] Order #: [id number] FUTURE CT CHEST W IVCON [[id number]] Order #: [id number] FUTURE iv contrast (radiology procedure)CT Chest ABD/PEL-Inject, [...] 0 CT NECK SOFT TISSUE W IVCON [[id number]] Order #: [id number] FUTURE [] iv contrast (radiology procedure)Inject 1 [...] GRADE LEUK MARKERS FC [SQPBLGLY] Order #: [id number] FUTURE STAFF REVIEW WITH CBC AND DIFF [SQSTREV] Order #: [id number]. #:[id number] COMP METABOLIC PANEL [SQCMP] Order #: [id number] FUTURE TSH BLD [SQTSH] Order #: [id number] FUTURE RETIC COUNT [SQRETIC] Order #: [id number] FUTURE PROTEIN ELECTROPHORESIS W/INTERP [SQSEPG] Order #: [id number] FUTURE CBC + DIFF (FOR REMOTE [facility] USE) [SQRCBCDF] Order #: [id number] FUTURE KAPPA/COPE,FREE,SER [SQKLFRS] Order #: [id number] FUTURE MONOCLONAL PROT BLD W/INTERP [SQMPASRM] Order #: [id number] FUTURE HEP REMOTE PANEL BL [SQHREMOP] Order #: [id number] FUTUREPrescriptions as of 03/13/2017 Sig: PINDOLOL 5 [...] by ISAAC SHELTON DO on 03/14/17 Normal [facility] LDon 03-13-2017 LD 164 U/L Normal 135-214 [facility] Comment on above: Performed By: #### L D6 ####[facility] [address] [place], [place] [phone] PROGRESSon 03-13-2017 PROGRESS HNO ID: [id number] thor: Isaac SheltonSerkaitline: (none)Author Type: PhysicianType: Progress NotesFiled: 03/14/2017 2:41 PMNote Text:PATIENT NAME: Gladis PatelarMRN: [id number] PHYSICIAN: Joseph Harris DO[address] [place] [address]ZNIAZHY CARE PHYSICIAN: Joseph Harris DOOTHER PHYSICIANS:CHIEF COMPLAINT: [...] COUNT-PROTEIN ELECTROPHORESIS W/INTERP-CBC + DIFF (FOR REMOTE [facility] USE)-KAPPA/COPE,FREE,SER-MO NOCLONAL PROT BLD W/INTERP-HEP REMOTE PANEL [...] three weeks now.Had few ER visits at [place] [facility] last year for LUQ pain and had [...] for5 days straight. Went to ER 02/26. [place] was negative, strep negative.Flu negative. She was [...] I answered all questions satisfactorily..Hai Shelton D.O.Medical OncologistD[place], [place] Normal [facility] Remote Abs Gran + CBC (for [facility] use only)on 03-13-2017 Absol Gran Count 10.95 k/uL High 1.45-7.50 [facility] Erythrocyte distribution width Auto Ratio (RBC) 14.0 % Normal 11.5-15.0 [facility] Erythrocytes (RBC) 5.04 10*6/uL Normal 3.90-5.20 [facility] Hematocrit (HCT) 41.8 % Normal 36.0-46.0 [facility] Hemoglobin mass conc (Bld) 14.0 g/dL Normal 11.5-15.5 [facility] MCH 27.8 pG Normal 26.0-34.0 [facility] MCHC mass conc (RBC) 33.5 g/dL Normal 30.5-36.0 [facility] MCV 82.9 fL Normal 80.0-100.0 [facility] Platelet mean volume (PMV) 9.3 fL Normal 9.0-12.7 [facility] Platelets 592 10*3/uL High 150-400 [facility] WBC (Leukocytes) 14.22 10*3/uL High 3.70-11.00 [facility] Staff Rev w CBCDIFon 017 Abs Baso 0.20 k/uL High <0.11 [facility] Comment on above: Performed By: #### S PUMA ####[facility]CAn[address], [place] [phone] Abs [place] 0.76 k/uL Normal <0.87 [facility] Comment on above: Performed By: #### S PUMA ####[facility] [phone] Abs Neut 11.19 k/uL High 1.45-7.50 [facility] Comment on above: Performed By: #### S PUMA ####[facility]obby [place] [phone] Basophils/100 WBC Auto (Bld) 1.4 % Normal [facility] Comment on above: Performed By: #### S PUMA ####[place] [address] [place] [phone] Diff Comments SEE COMMENT Normal [facility] Comment on above: Result Comment: See Staff Review Performed By: #### S PUMA ####[place] [address] [place] [phone] Eosinophils 0.09 10*3/uL Normal <0.46 [facility] Comment on above: Performed By: #### S PUMA ####[place] [address] [place] [phone] Eosinophils/100 leukocytes 0.6 % Normal [facility] Comment on above: Performed By: #### S PUMA ####[place] [phone]CB[address] [place] [phone] Erythrocyte distribution width Auto Ratio (RBC) 13.6 % Normal 11.5-15.0 [facility] Comment on above: Performed By: #### S PUMA ####[place] [phone]CB[address] [place] [phone] Erythrocytes (RBC) 5.19 10*6/uL Normal 3.90-5.20 [facility] Comment on above: Performed By: #### S PUMA ####[address] [place] [phone] Hematocrit (HCT) 45.0 % Normal 36.0-46.0 [facility] Comment on above: Performed By: #### S PUMA ####[place] [phone] Hemoglobin mass conc (Bld) 14.1 g/dL Normal 11.5-15.5 [facility] Comment on above: Performed By: #### S PUMA ####[place] [phone] Lymphocytes 2.42 10*3/uL Normal 1.00-4.00 [facility] Comment on above: Performed By: #### S PUMA ####[place] [phone] Lymphocytes/100 leukocytes 16.5 % Normal [facility] Comment on above: Performed By: #### S PUMA ####[place] [phone] MCH 27.2 pG Normal 26.0-34.0 [facility] Comment on above: Performed By: #### S PUMA ####[place] [phone] MCHC mass conc (RBC) 31.3 g/dL Normal 30.5-36.0 [facility] Comment on above: Performed By: #### S PUMA ####[place] [phone] MCV 86.7 fL Normal 80.0-100.0 [facility] Comment on above: Performed By: #### S PUMA ####[place] [phone] Monocytes/100 leukocytes 5.2 % Normal [facility] Comment on above: Performed By: #### S PUMA ####[place] [address], [place] [phone] Neutrophils/100 WBC Auto (Bld) 76.3 % Normal [facility] Comment on above: Performed By: #### S PUMA ####[place] [address], [place] [phone] Pathologist (cervix/vaginal) Reviewed by Karon Levin DO ([id number]) Normal [facility] Comment on above: Performed By: #### S PUMA ####[address] [place] [phone] Platelet mean volume (PMV) 10.0 fL Normal 9.0-12.7 [facility] Comment on above: Performed By: #### S PUMA ####[place] [address] [place] [phone] Platelets 622 10*3/uL High 150-400 [facility] Comment on above: Performed By: #### S PUMA ####[place] [phone] Red Cell Morph SEE COMMENT Normal [facility] Comment on above: Result Comment: Unre markable Performed By: #### S PUMA ####[place] [phone] Staff Review SEE COMMENT Normal [facility] Comment on above: Result Comment: Neut rophilic Leukocytosis Without Left ShiftThrombocytosis Performed By: #### S PUMA ####[address] [phone] WBC (Leukocytes) 14.66 10*3/uL High 3.70-11.00 [facility] Comment on above: Performed By: #### S PUMA ####[place] [address] [place], [place] [phone] [facility] Visit (SP) Office ([place]) -------GLADIS MICHAEL ([id number]) 1975 FDate Time Provider Department02/06/17 11:15 AM ISAAC SHELTON During your visit today, we recorded the following information about you: Temperature Pulse Respiration Blood pressure 98.6 degrees 66/minute 16/minute 161/102 Weight Height 108.6 kg 1.6 Kassidy Shelton DO 02/07/2017 12:59 AM SignedPATIENT NAME: Gladis ElderRN: [id number] PHYSICIAN: MICHAEL Rubin[address] [place] [address]MXMPGNJ CARE PHYSICIAN: MASOOD Rubin PHYSICIANS:CHIEF COMPLAINT: Lymphocytosis [...] three weeks now.Had few ER visits at [facility] last year for LUQ pain and had [...] and my recommendations listed below. The patientElizabechapito Frances Michael verbalized understanding and agreed with theserecommendations and plan. I answered all questions satisfactorily..Hai Shelton D.O.Medical OncologistDover, [place]Referring Provider: ISAAC SHELTON [[id number]]Allergies As of Date: 02/06/2017 Noted Allergy ReactionTOPROL XL (METOPROLOL) 04/11/2016 14 - Other: See Comments Comments: heart races per patientDate Reviewed: 02/06/2017Reviewed by: Richard Leon) L[place] - Fully AssessedReason for Visit: Lymphocytosis [Other] Cmt: 9 month follow upReason For Visit History RecordedPrimary Visit Diagnosis:Lymphocytosis [D72.820]Order(s):JAK2 V617F MUTATION [SQJAK2] Order #: [id number] FUTUREDisposition: Return in about 6 months (around [...] by ISAAC SHELTON DO on 02/07/17 Normal [facility] JAK2 V617F Mutationon 2016 JAK2 V617F Interp Result: JAK2 V617F M utation Not Detected Normal [facility] Comment on above: Result Comment: Inte rpretation: The JAK2 V617F Mutation was not detected. The V617F point mutation has been reported in a high percentage of cases of polycythemia vera, approximately half of the cases of essential thrombocythemia and chronic idiopathic myelofibrosis, and in a smaller proportion of other myeloid disorders.(NOTE)Methodology:Following DNA extraction and library construction utilizing [employer] Cancer Hotspot Panel v.1 ([employer], [place]), DNA sequencing of gene mutation hotspot regions was performed onthe MiSeq instrument ([employer], [place], [place]). Palmap software([employer], [place], [place]) was used to analyze FASTQ files [...] was developed and its performance characteristicsdetermined by [facility]'s Blayne Barrera [facility] andLaboratory Medicine [place] ([facility]). It has not been cleared orapproved by the FDA. RT-PLMI is regulated under CLIA as qualified toperform high-complexity testing. This test is used for clinicalpurposes. It should not be regarded as investigational or forresearch.References:Gracy EDWARDS, Socrates Squires, Rene R, Roberto Carlos J, Borjose MJ, Kesha Mccullough MM,et al. The 2016 revision to the World Health Organization (WHO)classification of myeloid neoplasms and acute leukemia. Tgkqe0786;127: 2391-405.Magdalene Squires, Jonah R, Adrian JW. Myeloproliferative neoplasms:contemporary diagnosis using histology and genetics. Funmi Rev ClinOncol 2009;6:627-37. Performed By: #### L D6, JAK2 ####[address] [phone] JAK2 V617F Spec Type Peripheral Blood Normal [facility] Comment on above: Performed By: #### L D6, JAK2 ####[address] [phone] Molecular Path Rev Reviewed by David Vo M.D., Ph.D ([id number]) Normal [facility] Comment on above: Performed By: #### L D6, JAK2 ####[address] [phone] LDon 02-06-2017 LD 186 U/L Normal 135-214 [facility] Comment on above: Performed By: #### L D6, JAK2 ####[address] [phone] PROGRESSon 02-06-2017 PROGRESS HNO ID: [id number] thor: Isaac Carrasco: (none)Author Type: PhysicianType: Progress NotesFiled: 02/07/2017 12:59 AMNote Text:PATIENT NAME: Gladis DamianjavierarMRN: [id number] PHYSICIAN: AVINASH Rubin [facility] [id number] CARE PHYSICIAN: MASOOD Rubin PHYSICIANS:CHIEF COMPLAINT: Lymphocytosis [...] three weeks now.Had few ER visits at [place] last year for LUQ pain and had [...] I answered all questions satisfactorily..Hai Shelton D.O.Medical OncologistWalla Walla General Hospital Cancer [place], [place] Normal [facility] Remote Abs Gran + CBC (for F HC use only)on 02-06-2017 Absol Gran Count 10.53 k/uL High 1.45-7.50 [facility] Erythrocyte distribution width Auto Ratio (RBC) 13.8 % Normal 11.5-15.0 [facility] Erythrocytes (RBC) 4.88 10*6/uL Normal 3.90-5.20 [facility] Hematocrit (HCT) 40.8 % Normal 36.0-46.0 [facility] Hemoglobin mass conc (Bld) 13.6 g/dL Normal 11.5-15.5 [facility] MCH 27.9 pG Normal 26.0-34.0 [facility] MCHC mass conc (RBC) 33.3 g/dL Normal 30.5-36.0 [facility] MCV 83.6 fL Normal 80.0-100.0 [facility] Platelet mean volume (PMV) 9.6 fL Normal 9.0-12.7 [facility] Platelets 448 10*3/uL High 150-400 [facility] WBC (Leukocytes) 14.69 10*3/uL High 3.70-11.00 [facility] LDon 01-23-2017 LD 169 U/L Normal 135-214 [facility] Comment on above: Performed By: #### L D6 ####[facility] [address] [place], [place] [phone] Remote Abs Gran + CBC (for F HC use only)on 01-23-2017 Absol Gran Count 8.16 k/uL High 1.45-7.50 [facility] Erythrocyte distribution width Auto Ratio (RBC) 13.7 % Normal 11.5-15.0 [facility] Erythrocytes (RBC) 5.16 10*6/uL Normal 3.90-5.20 [facility] Hematocrit (HCT) 43.4 % Normal 36.0-46.0 [facility] Hemoglobin mass conc (Bld) 14.3 g/dL Normal 11.5-15.5 [facility] MCH 27.7 pG Normal 26.0-34.0 [facility] MCHC mass conc (RBC) 32.9 g/dL Normal 30.5-36.0 [facility] MCV 84.1 fL Normal 80.0-100.0 [facility] Platelet mean volume (PMV) 9.6 fL Normal 9.0-12.7 [facility] Platelets 481 10*3/uL High 150-400 [facility] WBC (Leukocytes) 12.17 10*3/uL High 3.70-11.00 [facility] CNCOon 11-28-2016 CNCO Letter TextNorth [facility] Gdyputif[address] [facility] Mahoganymadison hospital[place], [place] [address]Kwabo: [phone]: [facility] Networkyde[address] [place], [place] [address]Zlcco: [phone]: [facility] [address] [place], [place] [address]Hunro: [phone]: Toll Free: [phone] [email or web address] Saad Arredondo M.D., Ernesto Schmidt M.D.Isaac Shelton D.O..Audrey Jang M.D. FACROSaju A. Rajan, M.D..November 28, 2016Romainechapito Michael[address] [place] [address] [facility] [address]Eecd Ms. Michael,You missed your scheduled appointment on 11/28/2016. Please call our officeto reschedule. If you need to cancel any future appointments, please call togive us 24 hour notice so that we can offer your appointment to anotherpatient.Sincerely,Tulio Au M.D. Normal [facility] Vital Signs Date Time Vital Sign Value Performing Clinician Facility 09-21-2023 10: Body height 160.02 cm [facility] 09-21-2023 10: Body mass index (BMI) [Ratio] 43.4 kg/m2 [facility] 09-21-2023 10: Body temperature 98.4 [degF] [facility] 09-21-2023 10: Body weight 111.13 kg [facility] 09-21-2023 10:14-0400 Diastolic blood pressure 88 mm[Hg] [facility] 09-21-2023 10:14-0400 Heart rate 72 /min [facility] 09-21-2023 10:14-0400 Respiratory rate 18 /min [facility] 09-21-2023 10:14-0400 SaO2% (BldA) [Mass fraction] 98 % [facility] 09-21-2023 10:14-0400 Systolic blood pressure 132 mm[Hg] [facility] 10-20-2021 21:00-0400 Body temperature 98.6 [degF] Mulugeta Tulio [facility] 10-20-2021 21:00-0400 Diastolic blood pressure 91 mm[Hg] Mulugeta Tulio [facility] 10-20-2021 21:00-0400 Heart rate 76 /min Mulugeta Tulio [facility] 10-20-2021 21:00-0400 Mean blood pressure 113 mm[Hg] Mulugeta Tulio [facility] 10-20-2021 21:00-0400 Respiratory rate 18 /min Mulugeta Tulio [facility] 10-20-2021 21:00-0400 SaO2% (BldA) [Mass fraction] 97 % Mulugeta Tulio [facility] 10-20-2021 21:00-0400 Systolic blood pressure 158 mm[Hg] Mulugeta Tulio [facility] 10-20-2021 20:00-0400 Body temperature 97.7 [degF] Mulugeta Tulio [facility] 10-20-2021 20:00-0400 Diastolic blood pressure 78 mm[Hg] Mulugeta Tulio [facility] 10-20-2021 20:00-0400 Heart rate 72 /min Mulugeta Tulio [facility] 10-20-2021 20:00-0400 Mean blood pressure 105 mm[Hg] Mulugeta Tulio [facility] 10-20-2021 19:00-0400 Diastolic blood pressure 102 mm[Hg] Mulugeta Tulio [facility] 10-20-2021 19:00-0400 Heart rate 70 /min Mulugeta Tulio [facility] 10-20-2021 19:00-0400 Mean blood pressure 124 mm[Hg] Mulugeta Tulio [facility] 10-20-2021 19:00-0400 Respiratory rate 17 /min Mulugeta Tulio [facility] 10-20-2021 19:00-0400 Systolic blood pressure 168 mm[Hg] Mulugeta Tulio [facility] 10-18-2021 12:00-0400 Heart rate 63 /min Kaylinn Dokken [facility] 10-18-2021 12:00-0400 Mean blood pressure 123 mm[Hg] Kaylinn Dokken [facility] 10-18-2021 12:00-0400 Systolic blood pressure 168 mm[Hg] Kaylinn Dokken [facility] 10-18-2021 11:30-0400 Diastolic blood pressure 100 mm[Hg] Kaylinn Dokken [facility] 10-18-2021 11:30-0400 Heart rate 69 /min Kaylinn Dokken [facility] 10-18-2021 11:30-0400 Mean blood pressure 121 mm[Hg] Kaylinn Dokken [facility] 10-18-2021 11:30-0400 Respiratory rate 16 /min Kaylinn Dokken [facility] 10-18-2021 11:30-0400 SaO2% (BldA) [Mass fraction] 99 % Kaylinn Dokken [facility] 10-18-2021 11:30-0400 Systolic blood pressure 163 mm[Hg] Kaylinn Dokken [facility] 10-18-2021 11:00-0400 Heart rate 68 /min Kaylinn Dokken [facility] 10-18-2021 11:00-0400 Mean blood pressure 120 mm[Hg] Kaylinn Dokken [facility] 10-18-2021 11:00-0400 SaO2% (BldA) [Mass fraction] 100 % Kaylinn Dokken [facility] 10-18-2021 11:00-0400 Systolic blood pressure 160 mm[Hg] Kaylinn Dokken [facility] 10-18-2021 09:30-0400 Hourly Rounding Kaylinn Dokken [facility] 10-18-2021 09:30-0400 Promise to Return Kaylinn Dokken [facility] 10-18-2021 08:30-0400 Hourly Rounding Kaylinn Dokken [facility] 10-18-2021 08:30-0400 Promise to Return Kaylinn Dokken [facility] 10-18-2021 03:59-0400 Body temperature 98.06 [degF] Jeffy Das [facility] 10-18-2021 03:59-0400 Heart rate 77 /min Jeffy Das [facility] Encounters Encounter Date Encounter Type Care Provider Facility Start: 09-21-2023 End: 09-21-2023 ambulatory [facility] Work Phone: Start: 09-21-2023 End: 09-21-2023 Patient encounter procedure [facility] Work Phone: Start: 07-23-2023 End: 07-23-2023 ambulatory MARY GRECO [facility] Start: 06-11-2023 End: 06-11-2023 ambulatory Belle Jose Other [employer] Other Start: 06-11-2023 Telephone encounter Belle Jose [facility] Start: 06-10-2023 End: 06-10-2023 ambulatory Belle Jose Other [employer] Other Start: 06-10-2023 Office outpatient vi sit 15 minutes Belle Jose [facility] Start: 02-19-2023 End: 02-19-2023 ambulatory GERALD [facility] Start: 09-22-2022 End: 09-23-2022 ambulatory TERRI LANDAVERDE [...] preprocedural cardiovascular examination DR GUSTAVO FONTAINE . [facility] Start: 10-26-2021 End: 10-26-[address] GUSTAVO FONTAINE . Facility:[facility] Start: 10-24-2021 End: 10-25-[address] GUSTAVO FONTAINE . Facility:[facility] Start: 10-24-2021 End: 10-25-2021 Encounter for preprocedural cardiovascular examination DR GUSTAVO FONTAINE . Facility:[facility] Start: 10-20-2021 End: 10-20-2021 Emergency department patient visit Mulugeta Antunez [facility] Start: 10-18-2021 End: 10-18-2021 Emergency department patient visit Jeffy Das [facility] Start: 09-27-2021 End: 09-28-2021 ambulatory JOVITA WAITE Facility:[facility] Start: 03-20-2021 Gynecological examin ation normal Belle Jose Other [employer] Other Start: 08-09-2020 Adult health examination Renee Jose Other [employer] Other Start: 07-01-2018 End: 07-02-2018 Patient encounter procedure DEFAULT PHYSICIAN Facility:[facility] Start: 06-30-2018 End: 07-01-2018 Patient encounter procedure DEFAULT PHYSICIAN Facility:[facility] Start: 10-20-2017 End: 10-22-2017 Ambulatory ISAAC SHELTON [facility] Start: 10-09-2017 End: 10-10-2017 Ambulatory ISAAC SHELTON [facility] Start: 10-06-2017 End: 10-06-2017 Ambulatory ISAAC SHELTON [facility] Start: 09-25-2017 End: 10-01-2017 Ambulatory JESUS CHEATHAM [facility] Start: 06-05-2017 End: 06-10-2017 Ambulatory ISAAC SHELTON [facility] Start: 05-22-2017 End: 05-28-2017 Ambulatory JESUS CHEATHAM [facility] Start: 04-28-2017 End: 05-05-2017 Ambulatory ISAAC SHELTON [facility] Start: 04-10-2017 End: 04-16-2017 Ambulatory CANDIS HERNANDEZ [facility] Start: 04-07-2017 End: 04-11-2017 Ambulatory ISAAC SHELTON [facility] Start: 03-19-2017 End: 03-19-2017 Ambulatory ISAAC SHELTON [facility] Start: 03-14-2017 End: 03-14-2017 Ambulatory ISAAC SHELTON [facility] Start: 03-13-2017 End: 03-17-2017 Ambulatory ISAAC SHELTON [facility] Start: 02-06-2017 End: 02-07-2017 Ambulatory ISAAC SHELTON [facility] Start: 01-23-2017 End: 01-23-2017 Ambulatory ISAAC SHELTON [facility] Procedures Date Procedure Procedure Detail Performing Clinician section Jeffy cruz Cholecystectomy Jeffy redd Immunizations Immunization Date Immunization Notes Care Provider Fa cili 03-13-2020 influenza virus vaccine, split virus (incl. purified surface antigen) Belle Jose Other [employer] Other 03-13-2020 influenza virus vaccine, unspecified formulation [facility] 03-16-2018 influenza virus vaccine, split virus (incl. purified surface antigen) Belle Jose Other [employer] Other 03-16-2018 influenza virus vaccine, unspecified formulation [facility] Payers Date Payer Category Payer Unknown [id number] 1975 Unknown [id number] 1975 Unknown [id number] [id number] 1975 Unknown [id number] 2.16.840.1.406577.3.579.2.593 1975 Unknown [id number] 2.16.840.1.864181.3.579.2.593 1975 Unknown [id number] 2.16.840.1.063380.3.579.2.593 1975 Unknown [id number] 2.16.840.1.179617.3.579.2.593 1975 Unknown [id number] 2.16.840.1.334275.3.579.2.593 1975 Unknown [id number] 2.16.840.1.383845.3.579.2.593 1975 Unknown [id number] 2.16.840.1.996890.3.579.2.593 1975 Unknown [id number] 2.16.840.1.243176.3.579.2.593 1975 Unknown [id number] 2.16.840.1.437403.3.579.2.593 1975 Unknown [id number] 2.16.840.1.403965.3.579.2.593 1975 Unknown [id number] 2.16.840.1.232601.3.579.2.593 1959 Private Health Insurance [id number] Self-pay [id number] 1959 Unknown [id number] 1959 Unknown [id number] Self-pay Self Pay [id number] Unknown Unknown MMO [id number] Unknown Kell KETURAH [id number] Social History Date Type Detail Facility Tobacco smoking status [facility] Sex Assigned At Female [facility] Start: 06-10-2023 Tobacco smoking stat [facility] Never smoked tobacco (finding) [facility] Start: 1975 Sex Assigned At Female F [facility] Clinical Notes 10-18-2021 to 07-23-2023 Note Date & Type Note Facility 07-23-2023 Note Currently without fl uid overload/ edema at this time with chlorthalidone daily. + RANDALL Will repeat TTE [facility] 07-23-2023 Note UTP CARDIOLOGY PROGR ESS [...] pt to call if b/p is uncontrolled [facility] 07-23-2023 Note Patient here for [facility] low up event monitor. Her insurance denied echo again. C/o cough with lisinopril. Still gets intermittent palpitations and hasn't had an echo in 3+ years. Review of Systems Cardiovascular: Positive for irregular heartbeat and palpitations. Neurological: Positive for dizziness, headaches and light-headedness. All other systems reviewed and are negative. [facility] 07-23-2023 Note Hypertension is unco ntrolled will increase chlorthalidone and pt c/o persistent dry cough- therefore will stop lisinopril. She is to monitor b/p at home and if consistently > 130/80 she is to call office and then may need started on losartan Repeat BMP in 1-2 weeks [facility] 07-23-2023 Note Continues to have pa lpitations with known MV regurg on beta yandel. Will repeat echo to evaluate for any worsening MV regurg, diastolic dysfunction. [facility] 06-10-2023 Evaluation note Encounter Date Diagnosis [...] of diseases classified elsewhere (ICD-10 - B96.89) [employer] Other 09-13-2023 NoteUT Cardiology Progress Note Reason [...] pallor Neck Neck: suppl (more content not included)...[facility] 02-19-2023 NotePatient here for 6 mo follow up hypertension. Darío Amato CNP ordered echo in September 2022, but her insurance denied it. She had labs in November 2022. Denies chest pain and SOB. Does have occasional palpitations. Gets dizzy/lighthead at times. Review of Systems Cardiovascular: Positive for irregular heartbeat and palpitations. Neurological: Positive for dizziness, headaches and light-headedness. All other systems reviewed and are negative.[facility] 10-26-2021 NoteThe [place], [place] NAME: GLADIS MICHAEL DATE OF : MEDICAL REC#: [id number] WINDOWS SYSTEMS ADMINISTRATOR: [address] [facility], TRANSADMIT DATE: 10/26/2021 09:00:00 STOPPER SETTER DATE: 10/28/2021 02:00 DICTATING PHYSICIAN: GUSTAVO FONTAINE DICTATION DATE: 10/26/2021 12:00 OP Note OPERATION DATE: 10/26/2021 PROCEDURE: Diagnostic laparoscopy with removal of bilateral tubal remnants. PREOPERATIVE DIAGNOSIS: Pelvic pain. POSTOPERATIVE DIAGNOSIS: Pelvic pain including hydrosalpinx of partial tubal remnant bilaterally, slightly erythematous tubal remnant. Otherwise normal appearing uterus and ovaries. SURGEON: Gustavo Fontaine M.D. REVERBERATORY FURNACE OPERATOR: VALERIE Coombs URINE OUTPUT: Yellow and clear. [...] Fontaine DO on 11/09/2021 08:27 AM EDT [facility] Signed and Approved by: DR GUSTAVO FONTAINE . 11/09/2021 08:27:00[facility]05-20-2022 NoteOP Note OPERATION DATE: 10/26/2021 ADDENDUM: Please note that the patient had partial tubal remnants with hydrosalpinx that were removed using the LigaSure. Please note that these were transected and ligated and excellent hemostasis was performed. [facility] Signed and Approved by: DR GUSTAVO FONTAINE . 12/02/2021 10:37:00[id number] NoteOP Note OPERATION DATE: 10/26/2021 ADDENDUM: Please note that the patient had partial tubal remnants with hydrosalpinx that were removed using the LigaSure. Please note that these were transected and ligated and excellent hemostasis was performed.[facility] [id number] Hospital Discharge instructions Patient Education 10/20/2021 21:20:19 [...] cyst. Follow these instructions at home: Take llec-urt-aglwegd and prescription medicines only as told by [...] 05/26/2006 Document Revised: 08/24/2018 Document Reviewed: 10/27/2016 [employer] Patient Education 2020 [employer]. Follow Up Care 10/20/2021 18:19:10 With:Gustavo FONTAINE Address: [address] , [place] [address]- Business (1) When:10/23/2021 21:06:35 [facility]05-14-2022 Evaluation + Plan noteExtracted from: Title:ED Note Author:Hunter Conte DO Date :10/20/21 Hydrosalpinx (N70.11: Chroni c salpingitis) Left ovarian cyst (N83.202: Unspecified ovarian cyst, left side) Orders: ketorolac, 10 mg = 1 tab(s), Oral, q6hr, PRN for pain, X 5 day(s), # 20 tab(s), Refills(s) 0, Pharmacy: [facility]/pharmacy #[id number], 160, cm, 10/20/21 18:21:00 [...] 10/20/21 19:00:[address] Abdomen/Pelvis w/ Contrast [facility]05-12-2022 Hospital Discharge instructions Patient Education 10/18/2021 12:30:36 [...] Follow these instructions at home: Medicines Take agrq-kdh-fgeewjt and prescription medicines only as told by [...] Watch your condition for any changes. Take mpue-jru-ukhznyg and prescription medicines only as told by [...] 03/05/2006 Document Revised: 10/04/2019 Document Reviewed: 10/04/2019 [employer] Patient Education 2020 [employer]. Follow Up Care 10/18/2021 03:57:58 With:Gustavo FONTAINE Address: [address] [place] [address]- Business (1) When:10/21/2021 12:14:15 With:JOVITA WAITE Address: [address] [place] [address]- [phone] Business (1) When:10/21/2021 12:13:23 Comments:The ultrasound showed that you have fluid in your fallopian tube. Make sure to follow-up with Dr. Fontaine as instructed. Return to the emergency room if your pain gets worse, fever, vomiting or any newsymptoms. [facility]05-12-2022 Evaluation + Plan noteExtracted from: Title:ED Addendum Author:Deepali Mendez, Patricia Date:10/18/21 1. Hydrosalpinx (N70.11: Chr onic salpingitis) [...] With Cult Reflex US Pelvis Non-OB Complete [facility] noteNo InformationNort [employer] Other Evaluation noteNo assessment information available [facility] Work Phone: History general Narrative - Reported* [...] procedures, hx of, Problem Comment : Ablasion-2014 [id number] Cholecystectomy-2005 , Problem Status : Active, Hospitalization History see above [employer] Other History general Narrative - Reported* Type [...] procedures, hx of, Problem Comment : Ablasion-2014 [id number] Cholecystectomy-2005 , Problem Status : Active, Hospitalization History see above [employer] Other Hospital course Narrative No data available for this section [facility] Summary Purpose Family History No Family History Records Found Relationship Condition Age at Onset Recorded Date/T reg father Malignant neoplasm Unknown Unknown Advance Directives No Advanced Directives Records Found Advance Directive Response Recorded Date/ Time Advance Directives No September 20 9:43am Chief Complaint and Reason for Visit Chief Complaint red bumps on back Additional Source Comments INFORMATION SOURCE (unrecogn ized section and content) DATE CREATED AUTHOR 11/26/2017 [facility] DATE CREATED AUTHOR AUTHOR'S ORGANIZ ATION 07/10/2018 [facility] DATE CREATED AUTHOR AUTHOR'S ORGANIZ ATION 12/31/2021 [facility] DATE CREATED AUTHOR AUTHOR'S ORGANIZ ATION 09/25/2022 [facility] DATE CREATED AUTHOR AUTHOR'S ORGANIZ ATION 10/11/2023 [facility] REASON FOR VISIT (unrecogniz ed section and content) COVID +school noteCOVID + Care Teams (unrecognized sec tion and content) Team Status: Active Member Role Status Dates Joseph Harris DO Primary Care Provider Active Team Status: Inactive Member Role Status Dates Joseph Harris DO Primary Care Provider Active Start: September 21, 2023 End: September 21, 2023 SOM MyersC Attending Provider Active S tart: September 21, [...] BE BASED ON THE PRIMARY CLINICAL RECORDS. [facility]. provides no warranty or guarantee of the accuracy or completeness of information in this document.
[2023-12-27 08:14] LABS: Basophils Absolute Auto 0.1 10^3/uL (0.0-0.1); Basophils Percent Auto 1.1 % (0.2-2.0); Eosinophils Absolute Auto 0.1 10^3/uL (0.0-0.7); Eosinophils Percent Auto 1.4 % (0.9-7.0); Hematocrit 38.8 % (36.0-48.0); Hemoglobin 12.7 g/dL (12.0-16.0); Immature Granulocytes Abs Auto 0.03 10^3/uL (0.00-0.03); Immature Granulocytes Pct Auto 0.3 % (0.0-0.5); Lymphocytes Absolute Auto 2.3 10^3/uL (1.2-3.8); Mean Corpuscular HGB Conc 32.7 g/dL (29.9-35.2); Mean Corpuscular Hemoglobin 27.9 pg (26.7-34.0); Mean Corpuscular Volume 85.3 fL (81.0-99.0); Mean Platelet Volume 9.6 fL (9.5-13.5); Monocytes Absolute Auto 0.6 10^3/uL (0.3-0.8); Neutrophils Absolute Auto 6.7 10^3/uL (1.4-6.5); Neutrophils Percent Auto 68.2 % (43.0-75.0); Platelet Count 424 10^3/uL (150-450); Red Blood Count 4.55 10^6/uL (4.20-5.40); Red Cell Distribution Width 13.1 % (11.0-15.0); White Blood Count 9.8 10^3/uL (4.0-11.0)
[2023-12-27 09:08] LABS: Alanine Aminotransferase 31 U/L (14-59); Albumin Globulin Ratio 0.8; Albumin Level 3.5 g/dL (3.4-5.0); Alkaline Phosphatase 56 U/L (46-116); Anion Gap 12.4; Aspartate Amino Transferase 17 U/L (15-37); BUN Creatinine Ratio 15.7; Bilirubin Total 0.6 mg/dL (0.2-1.0); Calcium 8.7 mg/dL (8.5-10.1); Carbon Dioxide 28.9 mmol/L (21.0-32.0); Chloride 102 mmol/L (98-107); Chol HDL Ratio 4.1; Cholesterol 195 mg/dL (<=200); Estimated GFR (African America >60 (>=60); Estimated GFR (Non-African Ame >60 (>=60); Free T3 2.78 pg/mL (2.18-3.98); Globulin 4.3 g/dL; Glucose 105 mg/dL (74-106); HDL Cholesterol 48 mg/dL (40-60); Potassium 3.3 mmol/L (3.5-5.1); Sodium 140 mmol/L (136-145); Thyroid Stimulating Hormone 0.969 uIU/mL (0.358-3.740); Total Protein 7.8 g/dL (6.4-8.2); Triglycerides 167 mg/dL (<=150); VLDL CHOLESTEROL 33.4 mg/dL
[2023-12-27 09:21] LABS: Estimated Average Glucose 105 mg/dL; Glycohemoglobin A1C 5.3 % (4.5-6.2)
[2023-12-28 12:10] LABS: Insulin 32.7 uIU/mL (2.6-24.9)
== END 2023-12-27 07:56 | disposition home or self-care (01) ==
LOC: LAB 07:56
PROVIDERS: PCP Nurse Practitioner Family; Visit Provider Nurse Practitioner Family
DX: Z00.00 Encounter for general adult medical examination without abnormal findings (principal)
CPT/HCPCS: 36415; 80053; 80061; 83036; 83525; 83540; 84436; 84443; 84481; 85025

== ENCOUNTER 2024-02-25 09:22 | Outpatient (OUT) | payer BC, SELFPAY ==
--- OUTSIDE RECORDS SUMMARY | 2024-02-25 09:31 | XMS_ITS | CCD ---
Author Organization [facility] Care Team Providers Care Operations Director Name Role Phone ADAMOWICZ, ISAAC J Unavailable Unavailable ADAMOWICZ, ISAAC J Unavailable Unavailable ADAMOWICZ, ISAAC J Unavailable Unavailable ADAMOWICZ, ISAAC J Unavailable Unavailable ADAMOWICZ, ISAAC J Unavailable Unavailable ADAMOWICZ, ISAAC J Unavailable Unavailable ADAMOWICZ, ISAAC J Unavailable Unavailable ADAMOWICZ, ISAAC J Unavailable Unavailable ADAMOWICZ, ISAAC J Unavailable Unavailable ADAMOWICZ, ISAAC J Unavailable Unavailable CANDIS HERNANDEZ Unavailable Unavailable SHANAE LUNA (RIB STIFFENER AND HEEL DIPPER) Unavailable Unavailabl e ADAMOWICZ, ISAAC J Unavailable Unavailable ADAMOWICZ, ISAAC J Unavailable Unavailable ADAMOWICZ, ISAAC J Unavailable Unavailable JESUS CHEATHAM Unavailable Unavailab le ADAMOWICZ, ISAAC J Unavailable Unavailable SHANAE LUNA (RIB STIFFENER AND HEEL DIPPER) Unavailable Unavailabl e SHANAE LUNA (RIB STIFFENER AND HEEL DIPPER) Unavailable Unavailabl e ADAMOWICZ, ISAAC J Unavailable Unavailable ADAMOWICZ, ISAAC J Unavailable Unavailable JESUS CHEATHAM Unavailable Unavailab JOSEPH Arceo Unavailable Unavailab le ADAMOWICZ, ISAAC J Unavailable Unavailable ADAMOWICZ, ISAAC J Unavailable Unavailable ADAMOWICZ, ISAAC J Unavailable Unavailable SHANAE LUNA (RIB STIFFENER AND HEEL DIPPER) Unavailable Unavailabl e ADAMOWICZ, ISAAC J Unavailable Unavailable ADAMOWICZ, ISAAC J Unavailable Unavailable PHYSICIAN, DEFAULT Admitting Unavailable PHYSICIAN, DEFAULT Attending Unavailable PHYSICIAN, DEFAULT Admitting Unavailable PHYSICIAN, DEFAULT Attending Unavailable JOVITA WAITE Primary Care Physician [phone] SHERMAN Hernandez, DR JUÁREZ Consulting Unavailable JOVITA WAITE Primary Care Unavailable DR GUSTAVO GREWAL Attending Unavailable DR GUSTAVO GREWAL Admitting Unavailable [...] [METOPROLOL] Drug Allergy 6 AOF, heart racing [facility] Repository (2 sources) Pyridoxal Drug Allergy 3 [facility] Repository (3 sources) patient allergy list reviewed by nurse or physicia Propensity to adverse reactions 7 Comment:Done Simtrol Other (3 sources) Allergies Reconciled Propensity to adverse reactions Unknown Simtrol Other Medications Current Medications Medication Drug Class(es) Dates Sig (Normalized) Sig (Original) acetaminophen 325 mg / oxyCODONE hydrochloride 5 mg oral tablet (2 sources) Opioid Agonist Start: 10-18-2021 Percocet 5 mg-325 mg oral tablet 1 tab(s), Oral, q6hr as needed for pain, 12 tab(s), Refill(s) 0, [facility]/pharmacy #[id number], 160, cm, 10/18/21 4:04:00 EDT, [...] BID, # 20 tab(s), Refills(s) 0, Pharmacy: [facility]/pharmacy #[id number], 160, cm, 10/18/21 4:04:00 EDT, [...] day(s), # 20 tab(s), Refills(s) 0, Pharmacy: [facility]/pharmacy #[id number], 160, cm, 10/20/21 18:21:00 EDT, [...] bedtime, # 30 tab(s), Refills(s) 0, Pharmacy: [facility]/pharmacy #[id number] Start Date: 11/10/17 Status: Ordered Start: 11-10-2017 take 1 tablet by marcus th once daily lisinopril 5 mg Tab 5 mg = 1 tab(s), Oral, Daily, Refills(s) 0 Start Date: 11/10/17 Status: Ordered Start: 07-08-2017 take 1 tablet by marcus th twice daily Lisinopril 20 MG Lisinopril( 20MG Oral 1.05547 Tablet ) Active -Hx Entry Oral for 0 Qty: 60; Refills: 10; patient taking 20 mg BID Jun, Active pindolol 5 mg oral tablet (6 sources) beta-Adrenergic Yandel Start: 09-21-2023 Pindol ol Active MG PO September 21, 2023 12:00am Start: 11-07-2021 Pindolol 10MG Pindolol( 10MG Oral two times daily ) Active -Hx Entry Oral two times daily for 0 *Pick strength-form from [employer] for eRX* Nov, Active Start: 05-22-2017 take [...] Refill. Active for 0 *Pick strength-form from [employer] for eRX* October, Active Problems Active Problems [...] vaginitis] Episodic Other aftercare (1 source) Other chcf (current) drug therapy; Translations: [OTH CUSTODIAL CURRENT DRUG THERAPY] Onset: 09-24-2022 Episodic Other [...] VM. She has apt on 10/23. Normal [facility] Office Visiton 07-23-2023 Follow-up visit [id number] Nettie Michael carolannyosvanychapito Daniels 1975 F Date Provider Department Center 07/23/2023 120-[facility] Family History Problem Relation Age of Onset No Known Problems Mother No Known Problems Father Family Status - Relation Status Age at Mother Father Level of Service:66650 CO OFFICE/OUTPATIENT ESTABLISHED MOD MDM 30 MIN Normal [facility] Office Visiton 02-19-2023 Follow-up visit [id number] Nettie Michael jo 1975 F Date Provider Department Center 02/19/2023 3848-[facility]ALD [facility] Family History Problem Relation Age of Onset No Known Problems Mother No Known Problems Father Family Status - Relation Status Age at Mother Father Level of Service:09609 CO OFFICE/OUTPATIENT ESTABLISHED MOD MDM 30-39 MIN [facility] CBC AUTO DIFFon 09-23-2022 BASO # 0.1 103/ul Normal 0.0-0.1 [facility] Comment on above: Performed By: #### U AMIC #### [facility] [address] [address] [address] Kristen Gambino Basophils/100 WBC (Bld) 0.9 % Normal 0.2-2.0 [facility] Comment on above: Performed By: #### U AMIC #### [facility] [address] [address] [address] Kristen Gambino EO # 0.1 103/ul Normal 0.0-0.7 [facility] Comment on above: Performed By: #### U AMIC #### [facility] [address] [address] [address] Kristen Gambino Eosinophils/100 WBC (Bld) 1.1 % Normal 0.9-7.0 [facility] Comment on above: Performed By: #### U AMIC #### [facility] [address] [place] [address] Dr. Kristen Gambino Erythrocyte distribution width (RBC) [Ratio] 13.2 % Normal 11.0-15.0 [facility] Comment on above: Performed By: #### U AMIC #### [facility] [address] [place] [address] Dr. Kristen Gambino Hematocrit (Bld) [Volume fraction] 41.2 % Normal 36.0-48.0 [facility] Comment on above: Performed By: #### U AMIC #### [facility] [address] [place] [address] Dr. Kristen Gambino Hemoglobin (Bld) [Mass/Vol] 13.8 g/dL Normal 12.0-16.0 [facility] Comment on above: Performed By: #### U AMIC #### [facility] [address] [place] [address] Dr. Kristen Gambino IG # 0.03 10e3/ul Normal 0.00-0.03 [facility] Comment on above: Performed By: #### U AMIC #### [facility] [address] [place] [address] Dr. Kristen Gambino IG % 0.2 % Normal 0.0-0.5 [facility] Comment on above: Performed By: #### U AMIC #### [facility] [address] [place] [address] Dr. Kristen Gambino LYMPH # 3.5 103/ul Normal 1.2-3.8 [facility] Comment on above: Performed By: #### U AMIC #### [facility] [address] [place] [address] Dr. Kristen Gambino Lymphocytes/100 WBC (Bld) 28.4 % Normal 20.5-60.0 [facility] Comment on above: Performed By: #### U AMIC #### [facility] [address] [address] [address] Kristen Gambino MANUAL DIFF REQ NO Normal [facility] Comment on above: Performed By: #### U AMIC #### [facility] [address] [address] [address] Kristen Gambino MCH (RBC) [Entitic mass] 27.8 pg Normal 26.7-34.0 [facility] Comment on above: Performed By: #### U AMIC #### [facility] [address] [address] [address] Kristen Gambino MCHC (RBC) [Mass/Vol] 33.5 g/dL Normal 29.9-35.2 [facility] Comment on above: Performed By: #### U AMIC #### [facility] [address] [place] [address] Dr. Kristen Gambino MCV (RBC) [Entitic vol] 82.9 fL Normal 81.0-99.0 [facility] Comment on above: Performed By: #### U AMIC #### [facility] [address] [address] [address] Kristen Gambino MONO # 0.9 103/ul Critically high 0.3-0.8 [facility] Comment on above: Performed By: #### U AMIC #### [facility] [address] [address] [address] Kristen Gambino Monocytes/100 WBC (Bld) 7.0 % Normal 1.7-12.0 [facility] Comment on above: Performed By: #### U AMIC #### [facility] [address] [address] [address] Kristen Gambino NEUT # 7.8 103/ul Critically high 1.4-6.5 [facility] Comment on above: Performed By: #### U AMIC #### [facility] [address] [address] [address] Kristen Gambino Neutrophils/100 WBC (Bld) 62.4 % Normal 43.0-75.0 [facility] Comment on above: Performed By: #### U AMIC #### [facility] [address] [address] [address] Kristen Gambino Platelet mean volume (Bld) [Entitic vol] 9.6 fL Normal 9.5-13.5 [facility] Comment on above: Performed By: #### U AMIC #### [facility] [address] [address] [address] Kristen Gambino PLT 409 103/ul Normal 150-450 [facility] Comment on above: Performed By: #### U AMIC #### [facility] [address] [address] [address] Kristen Gambino RBC 4.97 106/ul Normal 4.20-5.40 [facility] Comment on above: Performed By: #### U AMIC #### [facility] [address] [address] [address] Kristen Gambino WBC 12.5 103/ul Critically high 4.0-11.0 [facility] Comment on above: Performed By: #### U AMIC #### [facility] [address] [address] [address] HEAD WO CONon [...] TERRI LANDAVERDE Date: 2022-09-22 23:00 Normal [facility] PROF 14(COMP METB)on 023 Albumin [Mass/Vol] 3.5 g/dL Normal 3.4-5.[address] [facility] Comment on above: Performed By: #### C VDTBH #### [facility] [address] [place] [address] Dr. Kristen Gambino Albumin/Globulin [Mass ratio] 0.8 {ratio} Normal [facility] Comment on above: Performed By: #### C VDTBH #### [facility] [address] [place] [address] Dr. Kristen Gambino ALP [Catalytic activity/Vol] 67 U/L Normal 46-116 [facility] Comment on above: Performed By: #### C VDTBH #### [facility] [address] [place] [address] Dr. Kristen Gambino ALT [Catalytic activity/Vol] 29 U/L Normal 14-59 [facility] Comment on above: Performed By: #### C VDTBH #### [facility] [address] [place] [address] Dr. Kristen Gambino Anion gap [Moles/Vol] 12.0 mmol/L Normal [facility] Comment on above: Performed By: #### C VDTBH #### [facility] [address] [place] [address] Dr. Kristen Gambino AST [Catalytic activity/Vol] 17 U/L Normal 15-37 [facility] Comment on above: Performed By: #### C VDTBH #### [facility] [address] [place] [address] Dr. Kristen Gambino Bilirubin [Mass/Vol] 0.4 mg/dL Normal 0.2-1.0 [facility] Comment on above: Performed By: #### C VDTBH #### [facility] [address] [place] [address] Dr. Kristen Gambino Calcium [Mass/Vol] 9.5 mg/dL Normal 8.5-10.[address] [facility] Comment on above: Performed By: #### C VDTBH #### [facility] [address] [place] [address] Dr. Kristen Gambino Chloride [Moles/Vol] 101 mmol/L Normal 98-107 [facility] Comment on above: Performed By: #### C VDTBH #### [facility] [address] [place] [address] Dr. Kristen Gambino CO2 [Moles/Vol] 28.9 mmol/L Normal 21.0-32.0 [facility] Comment on above: Performed By: #### C VDTBH #### [facility] [address] [place] [address] Dr. Kristen Gambino Creatinine [Mass/Vol] 0.60 mg/dL Normal 0.55-1.02 [facility] Comment on above: Performed By: #### C VDTBH #### [facility] [address] [place] [address] Dr. Kristen Gambino EGFR-AF EMIRATI >60 Normal >=60 [facility] Comment on above: Performed By: #### C VDTBH #### [facility] [address] [place] [address] Dr. Kristen Gambino EGFR-NON AF EMIRATI >60 Normal >=60 [facility] Comment on above: Performed By: #### C VDTBH #### [facility] [address] [place] [address] Dr. Kristen Gambino Globulin (S) [Mass/Vol] 4.5 g/dL Normal [facility] Comment on above: Performed By: #### C VDTBH #### [facility] [address] [place] [address] Dr. Kristen Gambino Glucose [Mass/Vol] 108 mg/dL Critically high 74-[address] [facility] Comment on above: Performed By: #### C VDTBH #### [facility] [address] [address] [address] Kristen Gambino Potassium [Moles/Vol] 3.9 mmol/L Normal 3.5-5.1 [facility] Comment on above: Performed By: #### C VDTBH #### [facility] [address] [place] [address] Dr. Kristen Gambino Protein [Mass/Vol] 8.0 g/dL Normal 6.4-8.[address] [facility] Comment on above: Performed By: #### C VDTBH #### [facility] [address] [place] [address] Dr. Kristen Gambino Sodium [Moles/Vol] 138 mmol/L Normal 136-[address] [facility] Comment on above: Performed By: #### C VDTBH #### [facility] [address] [place] [address] Dr. Kristen Gambino Urea nitrogen [Mass/Vol] 10.0 mg/dL Normal 7.0-18.0 [facility] Comment on above: Performed By: #### C VDTBH #### [facility] [address] [place] [address] Dr. Kristen Gambino Urea nitrogen/Creatinine [Mass ratio] 16.7 mg/mg [facility] Comment on above: Performed By: #### C VDTBH #### [facility] [address] [place] [address] Dr. Kristen Gambino PAP ACOG PANEL 2: 30 to 65on 08-15-2022 . . Normal [facility] Comment on above: Result Comment: Perf ormed at: WB Performed By: #### [id number] #### [facility] [address] [place] [address] Dr. Kristen Gambino Age Gdln ACOG Testing 30-65 [facility] Comment on above: Performed By: #### [id number] #### [facility] [address] [place] [address] Dr. Kristen Gambino DIAGNOSIS: Comment Normal [facility] Comment on above: Result Comment: NEGA TIVE FOR INTRAEPITHELIAL LESION OR MALIGNANCY. Performed at: WB Performed By: #### [id number] #### [facility] [address] [place] [address] Dr. Kristen Gambino HPV Aptima Negative Normal Negative [facility] Comment on above: Result Comment: This nucleic acid amplification test detects fourteen high-risk HPV types (16,18,31,33,35,39,45,51,52,56,58,59,66,68) without differentiation. Performed at: =G Performed By: #### [id number] #### [facility] [address] [place] [address] Dr. Kristen Gambino HPV Genotype Reflex Comment Normal [facility] Comment on above: Result Comment: Crit eria not met, HPV Genotype not performed. Performed at: WB Performed By: #### [id number] #### [facility] [address] [place] [address] Dr. Kristen Gambino Methodology: Comment Normal [facility] Comment on above: Result Comment: This liquid based ThinPrep(R) pap test was screened with the use of an image guided system. Performed at: WB Performed By: #### [id number] #### [facility] [address] [place] [address] Dr. Kristen Gambino Note: Comment Normal [facility] Comment on above: Result Comment: The Pap smear is a screening test designed to aid in the detection of premalignant and malignant conditions of the uterine cervix. It is not a diagnostic procedure and should not be used as the sole means of detecting cervical cancer. Both false-positive and false-negative reports do occur. . Performed at: WB Performed By: #### [id number] #### [facility] [address] [place] [address] Dr. Kristen Gambino Performed by: Comment Normal [facility] Comment on above: Result Comment: Nila Romo, Post Closing Specialist (ASCP) Performed at: WB Performed By: #### [id number] #### [facility] [address] [place] [address] Dr. Kristen Gambino Specimen adequacy: Comment Normal [facility] Comment on above: Result Comment: Sati sfactory for evaluation. Endocervical and/or squamous metaplastic cells (endocervical component) are present. Performed at: WB Performed By: #### [id number] #### [facility] [address] [address] [address] Kristen Gamibno US PELVIS AND TRANSVAGon US PELVIS AND [...] by: TERRI DELANEY Date: 2022-08-14 07:35 Normal [facility] CULTURE URINEon 08-10-2022 CULTURE URINE Isolate 1 Pseudomonas aeruginosa <10,000 cfu/mL of ORGANISM 1 Pseudomonas aeruginosa ANTIBIOTIC M.I.C RX STATUS Piperacillin/Tazobactam <=4 S F Ceftazidime 2 S F Imipenem 2 S F Amikacin <=2 S F Gentamicin <=1 S F Tobramycin <=1 S F Ciprofloxacin <=0.25 S F Levofloxacin 0.25 S F Normal [facility] Comment on above: Performed By: #### U AMIC #### [facility] [address] [address] [address] Kristen Gambino MG MAMM SCREEN 3D ARCHIE CADon 03-06-2022 MG MAMM SCREEN 3D ARCHIE CAD Patient: GLADIS MICAHEL Exam Date: 03/06/2022 : 1975 Gender:F Ordering : JOVITA WAITE [facility] Admission #: [id number] Family : Order #: [id number] CLICK HERE TO VIEW EXAM RADIOLOGY REPORT [...] brain cancer at age 41. LOCATION: [facility] BREAST COMPOSITION: Scattered areas fibroglandular density. FINDINGS: [...] MD on 03/06/2022 at 14:25 Normal [facility] Covid-19 PCR (CVDTBH)on 01-07 SARS-CoV-2 (COVID-19) RNA GARTH+probe Ql (Unsp spec) Not detected Normal NOT DETECTED [facility] Comment on above: Result Comment: This test is not yet approved or cleared by the [place] FDA. When there are no FDA-approved or cleared tests available, and other criteria are met, FDA can make tests available under an emergency access mechanism called an Emergency Use Authorization (EUA). The EUA for this test is supported by the [place] of Health and Human Service's (HHS's) declaration [...] SARS-CoV-2. Performed By: #### C VDTB #### [facility] [address] [place] [address] Dr. Kristen Gambino CULTURE URINEon 01-19-2022 CULTURE [...] F Tetracycline >=16 R F Normal [facility] Comment on above: Performed By: #### U AMIC #### [facility] [address] [place] [address] Dr. Kristen Gambino CBC AUTO DIFFon 01-17-2022 BASO # 0.2 103/ul Critically high 0.0-0.1 [facility] Comment on above: Performed By: #### C BC #### [facility] [address] [place] [address] Dr. Kristen Gambino Basophils/100 WBC (Bld) 1.3 % Normal 0.2-2.0 [facility] Comment on above: Performed By: #### C BC #### [facility] [address] [place] [address] Dr. Kristen Gambino EO # 0.3 103/ul Normal 0.0-0.7 [facility] Comment on above: Performed By: #### C BC #### [facility] [address] [place] [address] Dr. Kristen Gambino Eosinophils/100 WBC (Bld) 1.9 % Normal 0.9-7.0 [facility] Comment on above: Performed By: #### C BC #### [facility] [address] [place] [address] Dr. Kristen Gambino Erythrocyte distribution width (RBC) [Ratio] 13.4 % Normal 11.0-15.0 [facility] Comment on above: Performed By: #### C BC #### [facility] [address] [place] [address] Dr. Kristen Gambino Hematocrit (Bld) [Volume fraction] 41.3 % Normal 36.0-48.0 [facility] Comment on above: Performed By: #### C BC #### [facility] [address] [place] [address] Dr. Kristen Gambino Hemoglobin (Bld) [Mass/Vol] 13.6 g/dL Normal 12.0-16.0 [facility] Comment on above: Performed By: #### C BC #### [facility] [address] [place] [address] Dr. Kristen Gambino IG # 0.07 10e3/ul Critically high 0.00-0.03 [facility] Comment on above: Performed By: #### C BC #### [facility] [address] [place] [address] Dr. Kristen Gambino IG % 0.4 % Normal 0.0-0.5 [facility] Comment on above: Performed By: #### C BC #### [facility] [address] [place] [address] Dr. Kristen Gambino LYMPH # 3.6 103/ul Normal 1.2-3.8 [facility] Comment on above: Performed By: #### C BC #### [facility] [address] [place] [address] Dr. Kristen Gambino Lymphocytes/100 WBC (Bld) 22.4 % Normal 20.5-60.0 [facility] Comment on above: Performed By: #### C BC #### [facility] [address] [place] [address] Dr. Kristen Gambino MANUAL DIFF REQ NO Normal [facility] Comment on above: Performed By: #### C BC #### [facility] [address] [place] [address] Dr. Kristen Gambino MCH (RBC) [Entitic mass] 27.8 pg Normal 26.7-34.0 [facility] Comment on above: Performed By: #### C BC #### [facility] [address] [place] [address] Dr. Kristen Gambino MCHC (RBC) [Mass/Vol] 32.9 g/dL Normal 29.9-35.2 [facility] Comment on above: Performed By: #### C BC #### [facility] [address] [place] [address] Dr. Kristen Gambino MCV (RBC) [Entitic vol] 84.5 fL Normal 81.0-99.0 [facility] Comment on above: Performed By: #### C BC #### [facility] [address] [place] [address] Dr. Kristen Gambino MONO # 1.1 103/ul Critically high 0.3-0.8 [facility] Comment on above: Performed By: #### C BC #### [facility] [address] [place] [address] Dr. Kristen Gambino Monocytes/100 WBC (Bld) 7.0 % Normal 1.7-12.0 [facility] Comment on above: Performed By: #### C BC #### [facility] [address] [place] [address] Dr. Kristen Gambino NEUT # 10.7 103/ul Critically high 1.4-6.5 [facility] Comment on above: Performed By: #### C BC #### [facility] [address] [place] [address] Dr. Kristen Gambino Neutrophils/100 WBC (Bld) 67.0 % Normal 43.0-75.0 [facility] Comment on above: Performed By: #### C BC #### [facility] [address] [place] [address] Dr. Kristen Gambino Platelet mean volume (Bld) [Entitic vol] 9.3 fL Critically low 9.5-13.5 [facility] Comment on above: Performed By: #### C BC #### [facility] [address] [place] [address] Dr. Kristen Gambino PLT 502 103/ul Critically high 150-450 [facility] Comment on above: Performed By: #### C BC #### [facility] [address] [place] [address] Dr. Kristen Gambino RBC 4.89 106/ul Normal 4.20-5.40 [facility] Comment on above: Performed By: #### C BC #### [facility] [address] [place] [address] Dr. Kristen Gambino WBC 16.0 103/ul Critically high 4.0-11.0 [facility] Comment on above: Performed By: #### C BC #### [facility] [address] [place] [address] Dr. Kristen Gambino PROF 14(COMP METB)on 022 Albumin [Mass/Vol] 4.0 g/dL Normal 3.4-5.[address] [facility] Comment on above: Performed By: #### C MP #### [facility] [address] [place] [address] Dr. Kristen Gambino Albumin/Globulin [Mass ratio] 0.9 {ratio} Normal [facility] Comment on above: Performed By: #### C MP #### [facility] [address] [place] [address] Dr. Kristen Gambino ALP [Catalytic activity/Vol] 72 U/L Normal 46-116 [facility] Comment on above: Performed By: #### C MP #### [facility] [address] [place] [address] Dr. Kristen Gambino ALT [Catalytic activity/Vol] 45 U/L Normal 14-59 [facility] Comment on above: Performed By: #### C MP #### [facility] [address] [place] [address] Dr. Kristen Gambino Anion gap [Moles/Vol] 12.4 mmol/L Normal [facility] Comment on above: Performed By: #### C MP #### [facility] [address] [address] [address] Kristen Gambino AST [Catalytic activity/Vol] 31 U/L Normal 15-37 [facility] Comment on above: Performed By: #### C MP #### [facility] [address] [address] [address] Kristen Gambino Bilirubin [Mass/Vol] 0.6 mg/dL Normal 0.2-1.0 [facility] Comment on above: Performed By: #### C MP #### [facility] [address] [address] [address] Kristen Gambino Calcium [Mass/Vol] 9.2 mg/dL Normal 8.5-10.[address] [facility] Comment on above: Performed By: #### C MP #### [facility] [address] [address] [address] Kristen Gambino Chloride [Moles/Vol] 101 mmol/L Normal 98-107 [facility] Comment on above: Performed By: #### C MP #### [facility] [address] [address] [address] Kristen Gambino CO2 [Moles/Vol] 26.3 mmol/L Normal 21.0-32.0 [facility] Comment on above: Performed By: #### C MP #### [facility] [address] [address] [address] Kristen Gambino Creatinine [Mass/Vol] 0.74 mg/dL Normal 0.55-1.02 [facility] Comment on above: Performed By: #### C MP #### [facility] [address] [address] [address] Kristen Gambino EGFR-AF EMIRATI >60 Normal >=60 [facility] Comment on above: Performed By: #### C MP #### [facility] [address] [address] [address] Kristen Gambino EGFR-NON AF EMIRATI >60 Normal >=60 [facility] Comment on above: Performed By: #### C MP #### [facility] [address] [address] [address] Kristen Gambino Globulin (S) [Mass/Vol] 4.4 g/dL Normal [facility] Comment on above: Performed By: #### C MP #### [facility] [address] [place] [address] Dr. Kristen Gambino Glucose [Mass/Vol] 106 mg/dL Normal 74-106 [facility] Comment on above: Performed By: #### C MP #### [facility] [address] [place] [address] Dr. Kristen Gambino Potassium [Moles/Vol] 3.7 mmol/L Normal 3.5-5.1 [facility] Comment on above: Performed By: #### C MP #### [facility] [address] [place] [address] Dr. Kristen Gambino Protein [Mass/Vol] 8.4 g/dL Critically high 6.4-8.2 [facility] Comment on above: Performed By: #### C MP #### [facility] [address] [place] [address] Dr. Kristen Gambino Sodium [Moles/Vol] 136 mmol/L Normal 136-145 [facility] Comment on above: Performed By: #### C MP #### [facility] [address] [place] [address] Dr. Kristen Gambino Urea nitrogen [Mass/Vol] 14.0 mg/dL Normal 7.0-18.0 [facility] Comment on above: Performed By: #### C MP #### [facility] [address] [place] [address] Dr. Kristen Gambino Urea nitrogen/Creatinine [Mass ratio] 18.9 mg/mg Normal [facility] Comment on above: Performed By: #### C MP #### [facility] [address] [place] [address] Dr. Kristen Gambino UA RANDOM W/MICROSCOPICon BACTERIA TRACE Abnormal NONE SEEN [facility] Comment on above: Performed By: #### U AMIC #### [facility] [address] [place] [address] Dr. Kristen Gambino Bilirubin Ql (U) Negative Normal NEGATIVE [facility] Comment on above: Performed By: #### U AMIC #### [facility] [address] [address] [address] Kristen Gambino CA OX CRYSTALS MODERATE Normal [facility] Comment on above: Performed By: #### U AMIC #### [facility] [address] [address] [address] Kristen Gambino CAST NONE SEEN Normal NONE SEEN [facility] Comment on above: Performed By: #### U AMIC #### [facility] [address] [place] [address] Dr. Kristen Gambino Clarity (U) CLEAR Normal CLEAR [facility] Comment on above: Performed By: #### U AMIC #### [facility] [address] [place] [address] Dr. Kristen Gambino Color (U) YELLOW Normal YELLOW [facility] Comment on above: Performed By: #### U AMIC #### [facility] [address] [place] [address] Dr. Kristen Gambino Crystals LM Nom (Urine sed) SEEN Abnormal NONE SEEN [facility] Comment on above: Performed By: #### U AMIC #### [facility] [address] [place] [address] Dr. Kristen Gambino Epithelial cells LM Ql (Urine sed) MODERATE Abnormal NONE SEEN /RARE [facility] Comment on above: Performed By: #### U AMIC #### [facility] [address] [address] [address] Kristen Gambino Glucose Ql (U) Negative Normal NEGATIVE [facility] Comment on above: Performed By: #### U AMIC #### [facility] [address] [address] [address] Kristen Gambino Hemoglobin Ql (U) Negative Normal NEGATIVE [facility] Comment on above: Performed By: #### U AMIC #### [facility] [address] [place] [address] Dr. Kristen Gambino Ketones Ql (U) Negative Normal NEGATIVE [facility] Comment on above: Performed By: #### U AMIC #### [facility] [address] [place] [address] Dr. Kristen Gambino LEUKOCYTES SMALL Abnormal NEGATIVE [facility] Comment on above: Performed By: #### U AMIC #### [facility] [address] [place] [address] Dr. Kristen Gambino MUCOUS SMALL Abnormal NONE SEEN [facility] Comment on above: Performed By: #### U AMIC #### [facility] [address] [address] [address] Kristen Gambino Nitrite Ql (U) Negative Normal NEGATIVE [facility] Comment on above: Performed By: #### U AMIC #### [facility] [address] [place] [address] Dr. Kristen Gambino pH (U) 5.0 [pH] Normal 5-9 [facility] Comment on above: Performed By: #### U AMIC #### [facility] [address] [place] [address] Dr. Kristen Gambino RBC NONE SEEN Abnormal 0-2 [facility] Comment on above: Performed By: #### U AMIC #### [facility] [address] [place] [address] Dr. Kristen Gambino SPEC GRAVITY >=1.030 Abnormal 1.005-<=1.0 25 [facility] Comment on above: Performed By: #### U AMIC #### [facility] [address] [place] [address] Dr. Kristen Gambino UA PROTEIN Negative Normal NEGATIVE/ TRACE [facility] Comment on above: Performed By: #### U AMIC #### [facility] [address] [place] [address] Dr. Kristen Gambino Urobilinogen Qn (U) 0.2 {Sonya'U}/dL Normal 0.2 - 1. 0 [facility] Comment on above: Performed By: #### U AMIC #### [facility] [address] [place] [address] Dr. Kristen Gambino WBC 5-10 Abnormal NONE SEEN [facility] Comment on above: Performed By: #### U AMIC #### [facility] [address] [address] [address] Kristen Gambino XR TSPINE 2 VIEWSon [...] by: TERRI DELANEY Date: 2022-01-11 07:20 Normal [facility] Operative Reporton Operative Report [id number]#[id number]:127 Normal [facility] Operative Report [id number]#[id number]:127 Normal [facility] Physician Referralon 022 Physician Referral [id number]#[id number]:127 Normal [facility] Coding Summary.on 10-30-2021 Coding Summary. CD:[id number] Gh0bWw+ PGhlYWQ+SX6PDABoC23yrCJwkX9 NO3cTAM1ZRKSQFRLHHU3QWJ0eyH V8SKqiC2FgudCl QumkqKFmFW12CSu3AZS9xExuDJm ysC0uoERwJ6s8DaXxCB26pU16VS mcFOUkZeM7DkEbjhjyaBDt Q4duDzOgzKJaVup+PHRhYmxlIHd nBWLeXVfzIOIpBlPvnQlnLZ4bDk 9yZGVyLWNvbGxhcHNlOiBj b2bjBURwVPozNI7cjDliP3LppLL 7AJUju7v0Tv77vNZ+AHWdNFB5hR rdSWcxj561YzCbx6bhNNH2 vVNsPCsqEWQ9N85yp3I0VWThAUM aKPF8cCE2fF1sbYpomanyQ0EnfU JjRqI9MGY9bXHpmJ3bpDxa aoadsZ8mHmf+L12QUZ8JCKHFBI7 DCoy7Z5ZdIjienIK+LV92XBZtDE 94oLNfvBCvt4kbwZc4HxJy QPYdIUA5qSkmLFwqd5QgKNOjR14 etBJpl7A0NGElxHkrdFOpOcKfdW M0nC3iDJhjocngh8esrzuo Aolck6gxse27qZ52Z70aRLzrIOF vTQG9PZEiSTBwlDnttv7bfX9iQo 8+CJsjo4jgy7xqgDp0KiDr FZTsheMawIubANH0c9TkCf97T9F mgUzrw2UmRnf3bg51iFDzl9T8sE U0KSphVHMkpR7lOQthBrF5 AVRhTfZhuM19sRMjLBlvWv5jkTx ikKmlIU2tKUIactarBGCszF8uWY HlwQRsxBnlQM7mYGVrtvwt g784BsGhKOB3DEJhbTJvY9LefX1 nPjEkALWrWETvA6KneOPvNYvlN7 62ISxkDuJ5VJQkkeJhE4Kf WOHlfHztJhL0d1B5Lj7Nz2Wjsrh sFBM8ULkdWYX5KwS9GuEgGzD6L4 XhWlt2GGGbbVxsQZ6qL7Pl LJTagorwtanxmUG7SDUhONZzmH3 6nAHjVMazFj3kj6M7j300ZMHnFN MtmD43Zu5hrXwkLNPfaMOW hB0yuahao1prnpkpImQtZGJaYXs 2WQd7NOCplRdxEmJyRPR7EmE7KI I2uGHswJ4jvDwvvswmsO9k Oyc+W74jpT6xVDB3UTV5cpcjKAT xmbVfGW09OO17A0PeIbvyrRJjdI U+IACeikZtfNkwRY7tBgTw l9dfg8XjXEnaL7UfBICfJHirFhi 8KDJtSGM4kUP3pI2fZXClLDwfx1 Y9sEN0X8MixeFrub9er1cr QTQkEFktJ89utNPln7A1ONDsbTO 4QUWteZnlAdGsyH51Qws+PGNvbG kab6PaGwhlz7sfo9whaVm3 GxYiEOVowtPohRjhPBZ3t8QmDu6 0F69hCYpyOHSnCXGdEQVnVGAqwX zbml2nuW8iCr2+PGNvbCB3 tLL5oL4qDFJhIwT7ZRbjD960LeG xwRWyCalnc5ets8ruaRz6PcSnYW PwnxHxpXylLNN8o3JrSw06 K77zDYzeDFGeJARaLAWeJYBnvQg fup5bsC1nJe7+NG3gv6kbml54oK 48dHI+POGrCXE3cNadQSbi GFDwzO7aIQgcRvC8EFTeOoWapE7 8lHVmHGzhPr7quBnfmJazWO0oBD Wyjggpo224UgFgo6kvNCXr vNQcWGdpXIC8X93hg4M3ZUQgIEG lQUR6dYM9iE8qgJtarmhhjGApxP htdeHtpJigOUslQJbhT660 IHRvcDsnPlBhdGllbnQgTmFtZTo 4S6EvHct7FBIryYcdTW3bfWGfJQ xwLb1tjVatsXpwOH9tVRVr pvfri941AoYsi6qgHIVtlQXkTUx kWAZ7S47sx8U5GNZnCGYeVJL9uW D0dE9maVeykeimxGJpsXeq syPnxBrfYCwiNEenO251VYWdiMd lZuZuegImUTDjvBS8ZF57EI78pD Rmj7A6zFV7L5QpEXVrehcj kbaffMN0CBJjQXArmT37Jg4cgPe pEl8fAGJkUTG8JSAxxWUrG9DjsJ 1tWnInPFQtUGCcR6DgnXTc CCvxC499CKzmGjO7TEIcorGfK3T gUJRpgYvvJuN5r0C2Mm9ZO5J3WS 73AH40pFQoy7Z3fCO9L9Gl AXMfcetimezlxXQ4MXBjENNycJ5 4Vh5mpMeyOi4rDXSiVEI1BBBzeZ SjH9FmrH5pZcZmBSXaKEGq N9KyvUKdELxmJ166JDnnGsD5RKN pdjWoR9LcZNXnyBuxPyP3a9W4Sb 3BHEr0IU61JI35eXVrw0F8 cKS3Z4CnMLBbpfmwqdltiDA0BSM gDLDtiC19Sp3xsUyyKw8mYMRuHY P1LSXxfRGxQ3BocJ4jHtUu WEBsDLBkK2UqdMAoUQuaP213GTe aGyL2YGBfoxUyC7FmHMDvzKkmMk U6h7G8Hl3GEGLwQD71QGR0 vNQ8MB24UW08H2QhPcvfuXXscKQ +PHRhYmxlIHdpZHRoPScxMDAlJy CpaFhjCU5nEh6rKLOoIUYe yHrdhIFcQwYfw3kaXNXmFNnpVH5 foPytT9WodJM7SUWqx5r9Uw13I3 6pM4AryCY+WSEliQJ9tSK3 lS8nCcDbUyS4SHadC547GiBulJI kVdiit3kug0vznAu7FlN9XHZxdo IhyWjaEOK2r8OuNa32R10i IHdpZHRoPSIxNSUiIHZhbGlnbj0 agT2cJh6+WJIthIU0fIB3bB0uUu FwTiC4VUxvJ059HxDezRPj Iwtwo5pxw3tpmTa3LtCdELDfgxO ueBevDGU9r6TpHl15Q9UamLxun0 XsDqr5he41bVIoj1H3hIX2 X6FlCLPakuepjWYpjGaqSB6yQYH jtigeSJAgmX5tWWPmC2o6TpAhGs E4GQgbC9NdsgD8BZSxrJJv VGkwXOJ1R72hm3X9TQLfXUPaKEA 6qQI6tI5ebOqgoibquEAzyAtiee MsrZowZObdNEnwN992IHTm oDrxTVFiiF9mBFXkyQFkzJvtET5 wNTBpbjsnPlZPTExNQVIsIEVMSV sQRcOQXVFMCO75KX39qPTy q7P1xOV1I4PaGNMvzarlhngziWH 2TJXkOGOtuX29bYUbPKruAn2di1 C5d850QCZmYPIzwD21Ha1t mEazAMLppHTLgP0znsthp6xrclt rJdJhKXCjBCw3MVc7GZYloAmlOg KtUNO5BeN5TIY7mVJrwR4f kGdyeteaeV9sIek+MDEvMDUvMTk 3NjwvdGQ+WCRcXKA5xCupAJjhSV ArpF8xONEbV1s0YkGpMtG7 ZYzsF4DaJYRjqvufKy48dY5iPjO fSyY9ASplG8PnmeA7GRIovZRwKC auINT5Z07yi2G9SOGbPRAt EHH1tGI8cP8pxAgofqrqpBCcwBv bhbJtjLsnURnrYVjqJ537VKWtgA tjBeD3DWswQRCbOP17BZ61 xRKsm3F3eJY0T8EnDPWhjvdqrjw wfOW3PDQuJOMqiD23uGGePEndFp 6fy9E8w739BQDrWHJetQ60 Pw8vfUinSKMhhBLAwX7nnzwbt8d uiqjqGyYcULCtWRd9TXu7LBUoxI ohQyXuUPR0EdG1UDV7rXXa nU4igZdgbgixnF5mThg+RmVtYWx tZR83QC80rFEzm9Y8gPN5F1HkLQ CeszlcjkqvsTG3UWWkNQUo wR51hJBcSVduHu1ng1T5q126KFE cZGQscT77Ge0cdNocLWSguDVZsA 3exldpq4axegmuLjJlJWVn GQs0BCt6FFXdvEgqUsUaDTQ2GoF 0HJG8nUHdkS6ocXpsjjkdeP8jSe c+FH6ebqapjlG4XX40UN23 J2IbJukxoHAatBV+PHRhYmxlIHd jKZDxDLsfJMTxIhUkdXlwSR2nQi 9yZGVyLWNvbGxhcHNlOiBj o7esYNOoDMhuIN4xbUqkB7TxcLC 5TSBpu5r8Ve89Z28lZ8PgbGU+PG AsvME0aJN3kX9oZoQeIbL5 PNbgM430DbEsqFCwDygcv8iwg9a xdUo4LqEgSOOxxkNynUcxYVE3b8 YzSb50W85cPWsbMSUlSGNj KZQwSRVmzFumxp6jkK6qVa7+PGN xyRP8lDU2qR0hWbIqTkZ9YVpfE9 62PrPaiMHqRtjgA32iW2Tg dXA+CDCeAym5RGVlrBqwIS3tbVI pQSikSl5bTRQ0MmUzSnVxMCpnJ9 PzWZKicqabrosgnTH1OVAp NHUqtN12Nw9knIywPt5oJZGeEMV 5IHMokHJeM9MaaG3mQfSkVTOaNH NeG3HsvAIwBYhiZ425SEwf QtY4FIQhvgBjY9MhFQUozLwlDcU 7u9H8Ai8XzXmbjTYcIO7uEhPySZ v9X1CyYqn2VQUtcXrcHI1f bPDyAUpgMn8eiDixjEpzZE7pCSY oxxstb216NsFpu3syWFQsfDHzSK bkUBD2J32jn3B6LJJzVZKh PCE8cIJ3eW9obWzkvcuvkKAsqKy mxdYdwVozETjyAEsvQ001ZCSglV doKsFENsj1N5DaNnm2KGYx mIhiFY6uuEIeZYauIt7ypRqypBq uIV2rXBDgepela439MdHat0doCI ZmvVLfZQnpNCK1J44sf6K2 EFHeCAWkVKY6uND2jE6kuAbdtgq gbGVmdDsgdmVydGljYWwtYWxpZ2 11OBHdxIdoDx9IZjx5S1Af Fug8YMWyaRduFA2zuYMtNHnhDy2 udBlhxWqeTA3fOBRozturk793Fa Ivu8yzMJBatLTwHQofHNB6 V77jl2L6HFKfLSUzJYW6pZU8qT8 hbGlnbjogbGVmdDsgdmVydGljYW rwPScwY735QAGjkFlaGsXg eWVyOjwvdGQ+GG18oi50A4WiMqw aFjn1DRHoHAJ8dHG7oH3kVHVnZY kno6G9wPC4G6WufpWtpk1w b2xs (more content not included)... Normal [facility] CBC AUTO DIFFon 10-26-2021 BASO # 0.1 103/ul Normal 0.0-0.1 [facility] Comment on above: Performed By: #### C BC #### [facility] [address] [place] [address] Dr. Kristen Gambino Basophils/100 WBC (Bld) 1.0 % Normal 0.2-2.0 [facility] Comment on above: Performed By: #### C BC #### [facility] [address] [place] [address] Dr. Kristen Gambino EO # 0.1 103/ul Normal 0.0-0.7 [facility] Comment on above: Performed By: #### C BC #### [facility] [address] [place] [address] Dr. Kristen Gambino Eosinophils/100 WBC (Bld) 1.0 % Normal 0.9-7.0 [facility] Comment on above: Performed By: #### C BC #### [facility] [address] [place] [address] Dr. Kristen Gambino Erythrocyte distribution width (RBC) [Ratio] 13.2 % Normal 11.0-15.0 [facility] Comment on above: Performed By: #### C BC #### [facility] [address] [place] [address] Dr. rKisten Gambino Hematocrit (Bld) [Volume fraction] 42.5 % Normal 36.0-48.0 [facility] Comment on above: Performed By: #### C BC #### [facility] [address] [place] [address] Dr. Kristen Gambino Hemoglobin (Bld) [Mass/Vol] 13.6 g/dL Normal 12.0-16.0 [facility] Comment on above: Performed By: #### C BC #### [facility] [address] [place] [address] Dr. Kristen Gambino IG # 0.05 10e3/ul Critically high 0.00-0.03 [facility] Comment on above: Performed By: #### C BC #### [facility] [address] [place] [address] Dr. Kristen Gambino IG % 0.4 % Normal 0.0-0.5 [facility] Comment on above: Performed By: #### C BC #### [facility] [address] [place] [address] Dr. Kristen Gambino LYMPH # 2.5 103/ul Normal 1.2-3.8 [facility] Comment on above: Performed By: #### C BC #### [facility] [address] [address] [address] Kristen Gambino Lymphocytes/100 WBC (Bld) 20.2 % Critically low 20.5-60.0 [facility] Comment on above: Performed By: #### C BC #### [facility] [address] [place] [address] Dr. Kristen Gambino MANUAL DIFF REQ NO Normal [facility] Comment on above: Performed By: #### C BC #### [facility] [address] [address] [address] Kristen Gambino MCH (RBC) [Entitic mass] 27.2 pg Normal 26.7-34.0 [facility] Comment on above: Performed By: #### C BC #### [facility] [address] [place] [address] Dr. Kristen Gambino MCHC (RBC) [Mass/Vol] 32.0 g/dL Normal 29.9-35.2 [facility] Comment on above: Performed By: #### C BC #### [facility] [address] [place] [address] Dr. Kristne Gambino MCV (RBC) [Entitic vol] 85.0 fL Normal 81.0-99.0 [facility] Comment on above: Performed By: #### C BC #### [facility] [address] [place] [address] Dr. Kristen Gambino MONO # 0.7 103/ul Normal 0.3-0.8 [facility] Comment on above: Performed By: #### C BC #### [facility] [address] [place] [address] Dr. Kristen Gambino Monocytes/100 WBC (Bld) 5.7 % Normal 1.7-12.0 [facility] Comment on above: Performed By: #### C BC #### [facility] [address] [place] [address] Dr. Kristen Gambino NEUT # 9.0 103/ul Critically high 1.4-6.5 [facility] Comment on above: Performed By: #### C BC #### [facility] [address] [place] [address] Dr. Kristen Gambino Neutrophils/100 WBC (Bld) 71.7 % Normal 43.0-75.0 [facility] Comment on above: Performed By: #### C BC #### [facility] [address] [address] [address] Kristen Gambino Platelet mean volume (Bld) [Entitic vol] 9.2 fL Critically low 9.5-13.5 [facility] Comment on above: Performed By: #### C BC #### [facility] [address] [address] [address] Kristen Gambino PLT 413 103/ul Normal 150-450 [facility] Comment on above: Performed By: #### C BC #### [facility] [address] [address] [address] Kristen Gambino RBC 5.00 106/ul Normal 4.20-5.40 [facility] Comment on above: Performed By: #### C BC #### [facility] [address] [address] [address] Kristen Gambino WBC 12.5 103/ul Critically high 4.0-11.0 [facility] Comment on above: Performed By: #### C BC #### [facility] [address] [place] [address] Dr. Kristen Gambino PREG QUANT HCGon 10-26-2021 HCG QUANT 1 mIU/mL Normal [facility] Comment on above: Performed By: #### P REGQNT #### [facility] [address] [place] [address] Dr. Kristen Gambino HCG RANGE SEE BELOW Normal [facility] Comment on above: Result Comment: 5-50 0-1 WEEK 40-300 1-2 WEEKS 100-1,000 2-3 WEEKS 500-6,000 3-4 WEEKS 5,000-200,000 1-2 MONTHS 10,000-100,000 2-3 MONTHS 3,000-50,000 2ND TRIMESTER 1,000-50,000 3RD TRIMESTER Performed By: #### P REGQNT #### [facility] [address] [place] [address] Dr. Kristen Gambino Coding Summary.on 10-22-2021 Coding Summary. CD:[id number] Gh0bWw+ PGhlYWQ+VJ5HBDUkU51jkZBnpW0 IB2aIFH3MOFXRWHHYHN7VHV1skO L4NKzeS5WiwtYr YpnooHZhWH83WZk7DWF4lKkcWBw wtB5uaHSkS3s4PzGiXN11sT18WE obEGOgKxB5GwXwwtwhoMVf Q0hpZuTmmASfTdz+PHRhYmxlIHd pYNIkPRyoGMOgKiJttOqjEM3oRf 9yZGVyLWNvbGxhcHNlOiBj k7guXHVoQWdqJD2kbBfyD9NxoGX 1RRVlh9k3Op17xVM+QCLhXMU0kX kfCVmwf556RcThh6zhFWV8 tDZqQOidTBL1R79si2G0FNSeURW eVHD9uHG5pK2quGyomgmmO4TlbO YfNnW6JQI3eRNnuA2khMlj iwfgvJ3lAkv+V64UVG5ODDVMQN0 TBkn0U7LdGequzAA+ZE07FXFoTT 46qWXhgUCcc3yzxMw5MiCt MGLtFMJ4nQrmQUnpy3SqSSXnI93 swXXbz4D5XYQclFpohEAnHkKryE F7iQ4cFTevtkzpt8zocprm Urjhg1twsu01eB58P01wHVliBPF pVJU8NJJwJNGclBvwqz5bmP9yDv 8+RJrye6bxs4jlwNe3GkTc IANvwdWqnXlgVRX7d4JlSa88S3T lkWzfd6OaGps7wx28uMNwh6T0tL A4PIisWBNdwB4rYWcbDmX0 MABqGjElaN34mGJuPZivZk7lyYi xbDjxSD4iYZIyenmzNGVwyE2lBN CxxCItvQnjKS2wWDYocomf l794FpBuJHP2JTJxlMAiA6CmuM1 iEjHtGLIzTZCkQ4XxxUCiIQfrB0 80YBcbJoM9HOQcsvVqQ3Ny IGXafLxjDuT8p9B7Pm7Mj0Zlsnq aGUV3RKmjQNM4BqR7WlIdKzB5P8 AqLol8COOdsFlqAN0cB7Zs WQRhlribspskbLP4FBIrEZGnzZ2 5xTHiVSkzCg4rl4H3o291IKZhTK GucJ28Ee7waCxgVMJpjEXA xU5iugiug4mihrkrEbJmGEMmALs 4XCr3LXKvpOruYaFmZVB4YfO1SV G6pHNhrR1jcShygmjjvR3g Oyc+X16meC3xTGC0ZTZ3eevhVAX iwuGdBU40JI42V8CeWjkhcCRawH U+GSTxynSacDbeZZ9qNdEx m0lsx4ElBFliR5UeCUHePNmdHkc 4IGByAQR3lRS7bE5yXCPlARykc7 Y5uFM5U7BytvNpio5kq9rh TQNoJFgsH07eaWNsc5Y7JJQwgGX 0ZEVefRzmQfYrhE46Pfd+PGNvbG goy0DsZojeb3wcj7kspDi1 NaRqZZMvixUbsGwjVFQ9k0RsTo9 4D45iJGllBVHnYLLnLEYeZJGogI faen2dxC8bXs8+PGNvbCB3 pXL7pT2qZLAoJzU9WTrcQ333WwS zvGBlJwptz8nmx2dyeOw5TwJqZQ NawdLflEjzLSM6v1BiXt90 W22lOEkxCSPpJPDaTURdTLWldDr okm1zwP7kXd6+OE2oo6ezjr93cA 48dHI+ENVxYCI4bZwtOQei AITreE6sETbfApC6REJrIkNulL8 8kXOeHShrDz0hrKeonPouWJ3sVR Klklrnv413IoTbr8ytIWYn hLHxYAevBZE6L19jp8F3WHNxXDT eEBP0wVK1oY3rwZnmflrzyRRkhK qfyrQzwQgaKWiwXUioV078 IHRvcDsnPlBhdGllbnQgTmFtZTo 4Q6WxFvs2MJCckHsvMF4wzHNvLN kxFz0yiIbccHrsUH7hTOXk ttgzr412JjXdv7tyXRZtvMAyFBu nQGN8I04dd4S5LSTiOZLsWHW3qP W2fR7slBtszuqhnCGgrFba ykCdnEntTUtpBUstV112IDSbsAp vTdWxgyOaDSGgsCV2OL30MA93pX Kaz5O8eDJ5S8AiMIOtrgke uyhlvQZ0RUTlPPIedP37Ip9fuTj rOh1oLRTkGNN7HNMgmESjY4FvoZ 4dWpWoBQSiQUXjN6JqoZHy YYahK834IIznEyX6WDRyluIxI4A tBWHpkGgrJnC2m2X3Lr3MC7F2PF 82ZN40tDHas7R6qTE5D2Iz LLQykrwscdlggZO0QNYyZMEomP3 9Oq9grNjjSw6iXUBaYIN7JUTeoZ HzL3GkqJ7cRnOnRIPiMAZn Z1JjyOEuUAqeL083IWlsBzF2HWL cfdUoF4XsDZGgdBpjDwO1v9Q3Fh 2GQDj4DX31JC70dUSlq2G6 lYZ8K2GjKPKpffkfcuzbyGF7UKU cBKRqcX60Qb3cfRnkZs9nSUPhGJ B3HBRuzVGzY7IwgT4eIbHo YZViWVPwY3KshEDeHNbaY965ZGi pReQ1GBBqmpSfG1NbAUGilUwxEz L3p5U7Lm7AHNWdIJ88ABZ2 sGH0AH68XT50N3CnAkwhcTQobJH +PHRhYmxlIHdpZHRoPScxMDAlJy ZigQwmAV2rSs0jFGCqAWCw pPpatOEeTfHpo0ziXESgZTsrLL6 aiSaeP4LvkJS2GCVku1t2Fz46W7 4zP1CmrBV+PQXweXJ9kRU4 jU6rZjBdNcJ7TFewW316WiMagSU zWpnwc6chm0hleVp9PoB2VXPvhc WmsCpuJFS2j7KpTh28U00n IHdpZHRoPSIxNSUiIHZhbGlnbj0 ybR8bTy8+IMCxkVM2aID2mP5nSo MoBmD5QIhvH271LrRyzIFm Ohggg1bsi5nczVl9IqPxSKKfyfH ffBmzWXN1l5VhCb37M6PiePoaw5 TzElw5uz47bGPcg8R9yTI1 C2WhROYewtdzeHZwfNavRI4oABJ eevirZLCunA8qREZjA7d2XiLhXj Q5XKlhL1HzjuU9MCQikRZf FIzlKGI3U73kz5V2SJZpGFIbMFN 7fQE6jT6wvKwjqxwjxCOccHanxo OfhVlsPWnaVIesI562OOZp xTepGSXoyC2sDYInpCMgmNkgNR9 wNTBpbjsnPlZPTExNQVIsIEVMSV kWNuCEYEWOYJ00JQ80kGLt w8E5kHN1H6HfEVYntvfrcggijBB 3WOYnBRQzrV04nFBqGSgqSw3lx3 J7c438NNBiXATzpC81Cl1w nQczUABavQAWiI6fikcfl4eslue pVcKaNNLnJAm8FAk8OVVlbZgwRb EoIPA0RhF4EGB2xSMnqX6x vVqfmfzbnF1cDct+MDEvMDUvMTk 3NjwvdGQ+IEAqUPQ7fAbdHAhbRN MucQ0nOYYdY2j0KyNkFoV8 GXmqK3YeCPHdfcigVv68pD8nBdF gReY0WPpzJ6QcedP6EUPrpRLxUZ syFZF8W06tg1U1UCXuZALg ARG0wCD8sW8xoFpqysjegNLwxDz xnlSqmYdrPEmsLKajD042EETynW idHcG4MYvoYDLsUI34OC88 qAVrr3L1jPK4W7PnQKYrlsjidln meQM0OUZwLPNjfH92yYOxWQboNn 1ao9H0m575RONxYDXboM70 Zi1qeDyzZJJcvPXQqV0brtwwc6z qpneoHnJdCHTzMMc2OEg5MDHzpY toApLlGIO1WjP3YKP7nBBy sB4amDvbxdzbxU7aJzk+RmVtYWx hZV90HW03sUWqv0L8nAH5J8LrAW QmoaznzpumoPY8XJYmFEWi gX87fEWiFRnyLx2fe0Z1y269YFS fEYTedN51Sm9abDxyOJRwnDNIcT 8wmiosf9obigklBoEoDQEs CQu2FMd9ITTmtUqcYfCdMUA5EuO 1VEC6lCVzoD3gzCshsunaaD4oXf c+ZF2lgoxilmZ8LO77RT28 E1PtYtuyvFPixNY+PHRhYmxlIHd tCLUnGJxpBQMcEfImdAcwDR1kEi 9yZGVyLWNvbGxhcHNlOiBj b3hsQDXsUZahCW5mpFydE5GflGG 3IXHyq7u0Kp56Z69nO3YtuOL+PG YepPS8nHH1wQ7zAuPaOrZ5 HBrcV327YmFizNCnDagyy1xkv0h lgQv8CmWpDYAgnnBtgJxgDTZ5k9 YiSc00R21kBQgsTRZwWDZa TUVdUCArjQkypu7ztF5pIq1+PGN goBW0cQT6hR0yVuJjHsA8VIybI0 46ApDijZXsElctF11iA8Zy dXA+MPVsMio5HNNorNxtZQ8uvBN cWYnrMi4eTLG6GuHbKbKoLTtvB1 RfLVPfdwmxyclsuAK2WVXb PIImoW45Uh5phCkpSe7kJYFjTTV 0VKXphATaN9BqaB2sQcKeYKAcPN ZtD8GugUXoLRexR615UFum SwG7KAPhepYlT7FlTVDbfSgsAhC 6n2H2By1RkZftaMXiDS4vDdGoRV v0A6ZyYfn6UAChvUlnDI9c uJZjMWezOx2ukCbmwXurBY7xRGL delnyy086HxRcs4qyHWRiwCYsPZ flPNT7G70ip8H0BGTmMIEz WBM4oTF3pF8qyFfwgoqyeXHxgXt pikAbaHwrXEiwAIldT469AGDwvC cwYfOEQnd6U0QlMqh2XTIj wObdLN3kuDVqFQunCt3gfRlhtGi sTA7hTETlufvmm692RtFwg8duWI HniPKnQTxnJHV7T36pc5G0 XRGaTPLpZFU3eXC1hY5byCzlezt gbGVmdDsgdmVydGljYWwtYWxpZ2 22TJStmWspFv6ZNox5V8Dc Hzk5SZDovCpiLA4gjRCyTOqbGr6 tgXjwyMreOM4mNPWgxoktb709Kv Ndo8mqSXZuwAZjGBbxXFV5 H81id4Z8QVNpHEEaRKG9yDN6cI4 hbGlnbjogbGVmdDsgdmVydGljYW lcHZspE988BRUcgGccBrGz eWVyOjwvdGQ+KW87id95X6VbJnn nEww0FMNqEBR1gQH3kJ7hNOXcSH mjb7M9oKF4K8WyilVqpa7k b2xs (more content not included)... Normal [facility] CT Abdomen/Pelvis w/ Contras ton 10-21-2021 CT [...] ml's: 100 Rectal Contrast Given? No Normal [facility] Auto Diffon 10-20-2021 Basophils/100 WBC (Bld) 0.9 % Normal 0.0-2.0 [facility] Comment on above: Order Comment: Order Added by Discern Expert. Performed By: #### 2 154187, 7657035, 4054392, 5911698, 2394768, 05127687 ####[facility] [address] [place] [address] Basophils/Leukocyte s Auto (Bld) [Pure # fraction] 0.1 E9/L Normal 0.0-0.2 [facility] Comment on above: Order Comment: Order Added by Discern Expert. Performed By: #### 2 695287, 0507878, 6273298, 9995667, 1858283, 20830052 ####[facility] [address] [place] [address] Eosinophils/100 WBC (Bld) 1.3 % Normal 0.0-8.0 [facility] Comment on above: Order Comment: Order Added by Discern Expert. Performed By: #### 2 209157, 6252306, 5996432, 3364908, 7167395, 74242122 ####[facility] [address] [place] [address] Eosinophils/Leukocy denise Auto (Bld) [Pure # fraction] 0.2 E9/L Normal 0.0-0.5 [facility] Comment on above: Order Comment: Order Added by Discern Expert. Performed By: #### 2 109718, 0556181, 0047347, 8672993, 6531716, 22253429 ####[facility] [address] [place] [address] Lymphocytes/100 WBC (Bld) 19.8 % Normal 14.0-50.0 [facility] Comment on above: Order Comment: Order Added by Discern Expert. Performed By: #### 2 079922, 4113945, 8071168, 5495419, 2471438, 59156984 ####[address] [place] [address] Lymphocytes/Leukocy denise Auto (Bld) [Pure # fraction] 2.6 E9/L Normal 1.0-4.0 [facility] Comment on above: Order Comment: Order Added by Discern Expert. Performed By: #### 2 211728, 2539876, 1758751, 5727324, 4682256, 02503654 ####[address] [address] Monocytes/100 WBC (Bld) 6.0 % Normal 4.0-14.0 [facility] Comment on above: Order Comment: Order Added by Discern Expert. Performed By: #### 2 659479, 4797538, 1858067, 5216905, 5994752, 69905688 ####[address] [address] Monocytes/Leukocyte s Auto (Bld) [Pure # fraction] 0.8 E9/L Normal 0.2-1.0 [facility] Comment on above: Order Comment: Order Added by Discern Expert. Performed By: #### 2 439428, 2661049, 7452869, 4816827, 0349232, 15910717 ####[address] [address] Neutrophils/100 WBC (Bld) 72.0 % Normal 36.0-75.0 [facility] Comment on above: Order Comment: Order Added by Discern Expert. Performed By: #### 2 670085, 1627545, 8286700, 7857035, 8828370, 27524937 ####[address] [place] [address] Neutrophils/Leukocy denise Auto (Bld) [Pure # fraction] 9.4 E9/L High 2.0-7.5 [facility] Comment on above: Order Comment: Order Added by Discern Expert. Performed By: #### 2 537496, 6759827, 4585610, 8977849, 3066454, 64152430 ####[facility] [address] [place] [address] BMPon 10-20-2021 Creatinine [Mass/Vol] 0.6 mg/dL Normal 0.5-1.3 [facility] Comment on above: Performed By: #### 2 682119, 5333909, 5471722, 4627382, 6249865, 47672228 ####[facility] [address] [place] [address] Urea nitrogen [Mass/Vol] 11 mg/dL Normal 5-21 [facility] Comment on above: Performed By: #### 2 932804, 2267859, 5505302, 6406267, 6676887, 78977603 ####[facility] [address] [place] [address] Urea nitrogen/Creatinine [Mass ratio] 18 No Units Normal 10-20 [facility] Comment on above: Performed By: #### 2 617038, 2646862, 6336068, 3094554, 4217888, 66470227 ####[facility] [address] [place] [address] Anion gap [Moles/Vol] 13 mmol/L Normal 6-16 [facility] Comment on above: Performed By: #### 2 872531, 8734026, 0271097, 3392907, 5931723, 56947903 ####[facility] [address] [place] [address] Calcium [Mass/Vol] 9.4 mg/dL Normal 8.9-11.1 [facility] Comment on above: Performed By: #### 2 262925, 2411535, 7691983, 9517002, 9772450, 73484776 ####[facility] [address] [place] [address] Chloride [Moles/Vol] 99 mmol/L Low 101-111 [facility] Comment on above: Performed By: #### 2 002783, 2509784, 0119535, 1988681, 5743929, 53987144 ####[facility] [address] [place] [address] CO2 [Moles/Vol] 25 mmol/L Normal 21-31 [facility] Comment on above: Performed By: #### 2 751032, 0748173, 3726358, 2401819, 8297220, 89279781 ####[facility] [address] [place] [address] Glucose [Mass/Vol] 111 mg/dL Normal 55-199 [facility] Comment on above: Result Comment: If t his glucose result represents a fasting glucose, interpretation should refer to the following reference range: 55-99 mg/dL Performed By: #### 2 759307, 5611424, 5385311, 9108025, 4974457, 95283979 ####[facility] [address] [place] [address] Potassium [Moles/Vol] 3.8 mmol/L Normal 3.5-5.3 [facility] Comment on above: Performed By: #### 2 809041, 1327677, 4293168, 2354142, 5492732, 99201196 ####[facility] [address] [place] [address] Sodium [Moles/Vol] 133 mmol/L Low 135-145 [facility] Comment on above: Performed By: #### 2 425794, 9067542, 5236820, 9795197, 6056883, 71090181 ####[facility] [address] [place] [address] CBC w/ Auto Diffon Erythrocyte distribution width (RBC) [Ratio] 13.5 % Normal 10.9-14.2 [facility] Comment on above: Performed By: #### 2 467192, 2736183, 4832034, 7943075, 4844418, 46002468 ####[facility] [address] [place] [address] Hematocrit (Bld) [Volume fraction] 41.8 % Normal 34.0-46.0 [facility] Comment on above: Performed By: #### 2 883128, 1048287, 4222994, 1619861, 4603668, 28355477 ####[address] [address] Hemoglobin (Bld) [Mass/Vol] 14.1 g/dL Normal 12.0-16.0 [facility] Comment on above: Performed By: #### 2 019600, 2961404, 3047199, 7013541, 1627849, 43375620 ####[address] [address] MCH (RBC) [Entitic mass] 27.2 pg Normal 27.0-34.0 [facility] Comment on above: Performed By: #### 2 884316, 1137987, 7142079, 1780813, 6414718, 94109884 ####[address] [address] MCHC (RBC) [Mass/Vol] 33.7 g/dL Normal 31.4-36.0 [facility] Comment on above: Performed By: #### 2 789175, 9205959, 9708523, 3185998, 8304934, 13165837 ####[address] [address] MCV (RBC) [Entitic vol] 80.6 fL Normal 80.0-100.0 [facility] Comment on above: Performed By: #### 2 154522, 1282660, 9838121, 0252746, 6468779, 11413714 ####[address] [place] [address] Platelet mean volume (Bld) [Entitic vol] 7.9 fL Normal 6.4-10.8 [facility] Comment on above: Performed By: #### 2 540444, 2291062, 8391178, 6498160, 8276197, 05334681 ####[address] [address] Platelets (Bld) [#/Vol] 473.0 E9/L Normal 150.0-500.0 [facility] Comment on above: Performed By: #### 2 079885, 0160831, 3220030, 7636696, 7648455, 89738005 ####[facility] [address] [place] [address] RBC (Bld) [#/Vol] 5.2 E12/L Normal 4.3-5.9 [facility] Comment on above: Performed By: #### 2 899449, 4353572, 8029717, 9726412, 3999805, 23358729 ####[facility] [address] [place] [address] WBC corrected for nucl RBC Auto (Bld) [#/Vol] 13.1 E9/L High 4.0-11.0 [facility] Comment on above: Performed By: #### 2 595028, 9892783, 7623630, 9609787, 5862417, 93489856 ####[facility] [address] [place] [address] CHEMISTRYOrdered By: SYSTEM SYSTEM on 10-20-2021 Albumin [...] rate/Area] mL/min/1.73 m2 Normal >=59mL/min/ 1.73 m2 [facility] Chem S GFR/1.73 sq M.predicted among non-blacks MDRD (S/P/Bld) [Vol rate/Area] mL/min/1.73 m2 Normal >=59mL/min/ 1.73 m2 [facility] Chem S Globulin (S) [Mass/Vol] 3.8 g/dL [...] Consent for Treatmenton 10-07 Consent for Treatment [id number]:127 Normal [facility] Discharge Instructionson Discharge Instructions [id number]:127 Normal [facility] ED Clinical Summaryon 2021 ED Clinical Summary (Inserted Image. Ade ble to display) [address] [address] ED Clinical Summary Person Information Name: GLADIS MICHAEL [facility] Age: 46 Years : 1975 Sex: Female Language: Citizen Of [place] PCP: JOVITA WAITE CNP Marital Status: Phone: [phone] Visit Id: Visit Reason: Nausea; Abdominal pain; [...] 10/20/2021 21:20:18 10/20/2021 21:20:18 10/20/2021 21:20:18 ADDRESS: [address] [place] [id number] PHYS DOC NOTES: MEDICAL INFORMATION: Prescriptions Given: New Medications [id number], [address], [place] [id number], [phone] ketorolac (ketorolac 10 mg Tab) 1 Tablets [...] Ovarian Cyst Follow up: With: Address: When: [facility], [address] [place] [address] [address] [place] [address] Business (1) In 3 days 10/23/2021 DIAGNOSIS: Hydrosalpinx; Left ovarian cyst Normal [facility] ED Note-Nursingon 10-20-2021 ED Note-Nursing pt given d/c instruc tions and educated on importance of follow up. pt educated on new medication. pt verbalized understanding of instructions and readiness for d/c. pt walked self ambulatory to waiting room in stable condition and was driven home by her Normal [facility] ED Note-Physicianon 10-21-19 ED Note-Physician Basic [...] doxycycline and already has an appointment with TIPPLE ENGINEER on Friday. Because she gets somewhat relief [...] day(s), # 20 tab(s), Refills(s) 0, Pharmacy: [id number], 160, cm, 10/20/21 18:21:00 EDT, [...] CT Abdomen/Pelvis w/ Contrast Medications Administered Given hmnvox7Ndxevipxl [F], 15 mg, IV Push Zofran 4 mg/2 mL Injection, 4 mg, IV Push Disposition Plan Discharge Prescription List Prescriptions ketorolac 10 mg Tab, 10 mg= 1 tab(s), Oral, q6hr, PRN Follow-up With When Contact Information Gustavo FONTAINE In 3 days 10/23/[address] [place] [place] [address]- Business (1) Additional Instructions: Patient Education Ovarian [...] Use, 11/09/ (more content not included)... Normal [facility] Comment on above: Result Comment: Elec [...] Follow these instructions at home: ? Take fmrt-xmk-qvloxpa and prescription medicines only as told by [...] than usual. (more content not included)... Normal [facility] ED Patient Summaryon 022 ED Patient Summary (Inserted Image. Ade ble to display) [id number] Patient Discharge Instructions Person Information Name: GLADIS MICHAEL Age: 46 Years Arrival Date: 10/20/2021 18:18:20 Discharge Diagnosis: Hydrosalpinx; Left ovarian cyst Primary Care Physician: JOVITA WAITE CNP Provider Information Primary Provider: Hunter Conte DO Advanced Tuck Pointer:None The exam and treatment you received in the Emergency Department were for an urgent problem and are not intended as complete care. It is important that you follow up with a doctor, nurse practitioner, or physician?s botany laboratory assistant for ongoing care. If your symptoms [...] Follow-up Instructions: With: Address: When: Gustavo SHERMAN [facility], [address] [place] [address] [address] [place] [address] Business (1) In 3 days 10/23/2021 In the event that this physician does not participate in your insurance network, please consult with your insurance company to find a nearby participating provider. Patient Education Materials: Ovarian Cyst A MESSAGE TO ALL PATIENTS REGARDING OPIOIDS PRESCRIPTION OPIOIDS: WHAT YOU NEED TO KNOW Prescription opioids can be used to help relieve xrdbfkus-di-lxuiit pain and are often prescribed following a [...] be struggling with addiction, tell your health acute care surgeon and ask for guidance or call [employer]?S National Helpline at [phone] (more content not included)... Normal [facility] HEMATOLOGYOrdered By: SYSTEM SYSTEM on 10-20-2021 Basophils/100 WBC (Bld) 0.9 % Normal 0.0 - 2.0 % [facility] HemeAutoSS Basophils/Leukocyte s Auto (Bld) [Pure # fraction] 0.1 E9/L Normal 0.0 - 0.2 E9/L [facility] HemeAutoSS Eosinophils/100 WBC (Bld) 1.3 % Normal 0.0 - 8.0 % [facility] HemeAutoSS Eosinophils/Leukocy denise Auto (Bld) [Pure # [...] 13.1 E9/L High 4.0 - 11.0 E9/L [facility] HemeAutoSS Hep Func Panelon 10-20-2021 Albumin [Mass/Vol] 4.5 g/dL Normal 3.3-5.0 [facility] Comment on above: Performed By: #### 2 197641, 5521845, 8603621, 0116736, 9560107, 26133441 ####[facility] [address] [place] [address] Albumin/Globulin (S) [Mass conc ratio] 1.2 Normal 1.1-2.2 [facility] Comment on above: Performed By: #### 2 818879, 2610977, 0078175, 4726717, 6869688, 16727855 ####[facility] [address] [place] [address] ALP [Catalytic activity/Vol] 53 Int._Unit/L Normal 21-98 [facility] Comment on above: Performed By: #### 2 011366, 9087750, 9781403, 2160094, 3301134, 15601613 ####[facility] [address] [place] [address] ALT No additional P-5'-P [Catalytic activity/Vol] 23 Int._Unit/L Normal 6-46 [facility] Comment on above: Performed By: #### 2 818074, 9955725, 8435778, 2137538, 4026276, 77353937 ####[facility] [address] [place] [address] AST [Catalytic activity/Vol] 20 Int._Unit/L Normal 5-43 [facility] Comment on above: Performed By: #### 2 448215, 0224812, 8519120, 8068693, 4572539, 71774371 ####[facility] [address] [place] [address] Bilirubin [Mass/Vol] 0.8 mg/dL Normal 0.0-1.1 [facility] Comment on above: Performed By: #### 2 652452, 2028454, 0829193, 0302750, 7195578, 73285553 ####[facility] [address] [place] [address] Bilirubin.direct [Mass/Vol] 0.1 mg/dL Normal 0.1-0.4 [facility] Comment on above: Performed By: #### 2 859215, 4664110, 8191317, 4925557, 5599981, 08381985 ####[facility] [address] [place] [address] Bilirubin.indirect [Mass or moles/Vol] 0.7 mg/dL Normal 0.1-0.9 [facility] Comment on above: Performed By: #### 2 126702, 5356122, 2652834, 7644723, 7308884, 41390729 ####[address] [address] Globulin (S) [Mass/Vol] 3.8 g/dL Normal 1.4-4.0 [facility] Comment on above: Performed By: #### 2 403798, 2654900, 0142747, 0282086, 2812747, 42337697 ####[facility] [address] [place] [address] Protein [Mass/Vol] 8.3 g/dL High 6.0-7.8 [facility] Comment on above: Performed By: #### 2 705489, 7388516, 2247826, 2159090, 6872553, 51438342 ####[facility] [address] [place] [address] Lipase Levelon 10-20-2021 Lipase [Catalytic activity/Vol] 26 U/L Normal 13-58 [facility] Comment on above: Performed By: #### 2 683174, 7476056, 0501974, 0630824, 2504385, 43999281 ####[address] [place] [address] RAD - Preliminary Cat Scan R eporton 10-20-2021 RAD - Preliminary Cat Scan Report [id number]:127 Normal [facility] UA With Cult Reflexon 2021 Bilirubin Ql (U) Negative Normal Negative [facility] Comment on above: Performed By: #### 1 2114141 ####[facility] [address] [place] [address] Clarity (U) CLEAR Normal Clear [facility] Comment on above: Performed By: #### 1 8830180 ####[facility] [address] [place] [address] Color (U) YELLOW Normal Yellow [facility] Comment on above: Performed By: #### 1 1833831 ####[facility] [address] [place] [address] Crystals LM Ql (Urine sed) Present Normal [facility] Comment on above: Performed By: #### 1 5104823 ####[facility] [address] [place] [address] Epithelial cells.squamous LM.HPF (Urine sed) [#/Area] 0-2 Normal 0-2 [facility] Comment on above: Performed By: #### 1 5989136 ####[facility] [address] [place] [address] Glucose Test strip (U) [Mass/Vol] Negative Normal Negative [facility] Comment on above: Performed By: #### 1 4719116 ####[facility] [address] [place] [address] Hemoglobin Ql (U) Negative Normal Negative [facility] Comment on above: Performed By: #### 1 9480865 ####[facility] [address] [place] [address] Ketones (U) [Mass/Vol] Negative Normal Negative [facility] Comment on above: Performed By: #### 1 7978037 ####[facility] [address] [place] [address] [place].plasma/Lith ium.RBC (Bld) [Mass ratio] 0-3 Normal 0-3 [facility] Comment on above: Performed By: #### 1 6566629 ####[address] [address] Nitrite Ql (U) Negative Normal Negative [facility] Comment on above: Performed By: #### 1 0487065 ####[address] [address] pH (U) 6.0 [pH] Invalid Interpretation Code 5.0-9.0 [facility] Comment on above: Performed By: #### 1 0685958 ####[address] [address] Protein (U) [Mass/Vol] Negative Normal Negative [facility] Comment on above: Performed By: #### 1 2554703 ####[address] [address] Specific gravity (U) [Rel density] <=1.005 Invalid Interpretation Code 1.005-1.030 [facility] Comment on above: Performed By: #### 1 4088526 ####[address] [address] Type of Urine collection method Clean Catch Normal [facility] Comment on above: Performed By: #### 1 8512613 ####[address] [address] Urobilinogen Qn (U) 0.2 {Sonya'U}/dL Normal 0.0-1.0 [facility] Comment on above: Performed By: #### 1 6343681 ####[address] [address] WBC Auto Ql (U) TRACE Abnormal Negative [facility] Comment on above: Performed By: #### 1 6863844 ####[address] [address] WBC LM.HPF (Urine sed) [#/Area] 0-5 Normal 0-5 [facility] Comment on above: Performed By: #### 1 3786568 ####[facility] [address] [place] [address] URINALYSISOrdered By: Sarmad michaels on 10-20-2021 Bilirubin [...] PM) Normal Negative [facility] UA Auto SS [place].plasma/Lith ium.RBC (Bld) [Mass ratio] 0-3 /HPF Normal [...] [facility] UA Auto SS Urobilinogen Qn (U) 0.5308795 {Sonya'U}/dL Normal 0.0 - 1.0 EU/dL [facility] UA Auto SS WBC Auto Ql (U) Trace *ABN* (10/20/21 6:38 PM) Invalid Interpretation Code Negative [facility] UA Auto SS WBC LM.HPF (Urine sed) [#/Area] 0-5 /HPF Normal 0-5/HPF [facility] UA Auto SS eGFRon 10-20-2021 GFR/1.73 sq M.predicted among blacks MDRD (S/P/Bld) [Vol rate/Area] mL/min/{1.73_m2} Normal >=59 [facility] Comment on above: Order Comment: Order added by Discern Expert. Result Comment: eGFR is race adjusted. AA=. Performed By: #### 2 803203, 2383873, 1287296, 9629683, 1276851, 44068681 ####[facility] [address] [place] [address] GFR/1.73 sq M.predicted among non-blacks MDRD (S/P/Bld) [Vol rate/Area] mL/min/{1.73_m2} Normal >=59 [facility] Comment on above: Order Comment: Order added by Discern Expert. Result Comment: [employer] [facility] kidney disease could be indicated at eGFR's of less than 60 mL/min/1.73m2. Kidney failure is indicated at less than 15 mL/min/1.73m2. Performed By: #### 2 673993, 9530961, 9037048, 1724484, 9934621, 64756484 ####[facility] [address] [place] [address] Auto Diffon 10-18-2021 Basophils/100 WBC (Bld) 1.0 % Normal 0.0-2.0 [facility] Comment on above: Order Comment: Order Added by Discern Expert. Performed By: #### 2 404788, 0428604, 04808609, 3914379, 9358735, 8055221, 8450332 #### [facility] [address] [place] [address] Basophils/Leukocyte s Auto (Bld) [Pure # fraction] 0.1 E9/L Normal 0.0-0.2 [facility] Comment on above: Order Comment: Order Added by Discern Expert. Performed By: #### 2 828622, 2751567, 75083104, 9043524, 1317733, 8133326, 6381303 #### [facility] [address] [place] [address] Eosinophils/100 WBC (Bld) 1.3 % Normal 0.0-8.0 [facility] Comment on above: Order Comment: Order Added by Discern Expert. Performed By: #### 2 132488, 8449320, 37394500, 3050680, 0273713, 5534902, 1043041 #### [facility] [address] [place] [address] Eosinophils/Leukocy denise Auto (Bld) [Pure # fraction] 0.1 E9/L Normal 0.0-0.5 [facility] Comment on above: Order Comment: Order Added by Carolann Expert. Performed By: #### 2 592749, 4256352, 71080235, 8773114, 5230339, 3522627, 5437679 #### [facility] [address] [place] [address] Lymphocytes/100 WBC (Bld) 25.5 % Normal 14.0-50.0 [facility] Comment on above: Order Comment: Order Added by Carolann Expert. Performed By: #### 2 126093, 8990173, 02242017, 7736054, 4266648, 4981496, 8885893 #### [facility] [address] [place] [address] Lymphocytes/Leukocy denise Auto (Bld) [Pure # fraction] 2.6 E9/L Normal 1.0-4.0 [facility] Comment on above: Order Comment: Order Added by Carolann Expert. Performed By: #### 2 989341, 4330462, 26854557, 3272365, 3550951, 0403738, 2724356 #### [facility] [address] [place] [address] Monocytes/100 WBC (Bld) 5.7 % Normal 4.0-14.0 [facility] Comment on above: Order Comment: Order Added by Discern Expert. Performed By: #### 2 200772, 1178862, [id number], 3382285, 1295492, 9186583, 9467733 #### [facility] [address] [place] [address] Monocytes/Leukocyte s Auto (Bld) [Pure # fraction] 0.6 E9/L Normal 0.2-1.0 [facility] Comment on above: Order Comment: Order Added by Discern Expert. Performed By: #### 2 156286, 8925154, 28939008, 1169239, 9535342, 0766797, 7345423 #### [facility] [address] [place] [address] Neutrophils/100 WBC (Bld) 66.5 % Normal 36.0-75.0 [facility] Comment on above: Order Comment: Order Added by Discern Expert. Performed By: #### 2 183469, 1420980, 83045975, 3489458, 8423694, 9913461, 3480207 #### [facility] [address] [place] [address] Neutrophils/Leukocy denise Auto (Bld) [Pure # fraction] 6.7 E9/L Normal 2.0-7.5 [facility] Comment on above: Order Comment: Order Added by Discern Expert. Performed By: #### 2 191877, 7075488, 10556628, 4091268, 9092921, 2980382, 4207622 #### [facility] [address] [place] [address] BMPon 10-18-2021 Creatinine [Mass/Vol] 0.4 mg/dL Low 0.5-1.3 [facility] Comment on above: Performed By: #### 2 351438, 7810636, 82177434, 1248270, 8246226, 4893127, 1549073 ####[facility] [address] [place] [address] Urea nitrogen [Mass/Vol] 13 mg/dL Normal 5-21 [facility] Comment on above: Performed By: #### 2 313432, 4965027, 99478738, 2330124, 1751941, 5934340, 7228582 ####[facility] [address] [place] [address] Urea nitrogen/Creatinine [Mass ratio] 32 No Units High 10-20 [facility] Comment on above: Performed By: #### 2 458114, 3256675, 67245669, 3200169, 5867072, 7016093, 8174285 ####[facility] [address] [place] [address] Anion gap [Moles/Vol] 12 mmol/L Normal 6-16 [facility] Comment on above: Performed By: #### 2 710293, 3774775, 29419627, 9383384, 2249708, 3566652, 0353919 ####[facility] [address] [place] [address] Calcium [Mass/Vol] 9.1 mg/dL Normal 8.9-11.1 [facility] Comment on above: Performed By: #### 2 300009, 2121795, 81930565, 1845990, 7293382, 4141096, 6189272 ####[facility] [address] [place] [address] Chloride [Moles/Vol] 102 mmol/L Normal 101-111 [facility] Comment on above: Performed By: #### 2 999111, 3623932, 12311967, 1915596, 0613433, 6483964, 2348837 ####[facility] [address] [place] [address] CO2 [Moles/Vol] 24 mmol/L Normal 21-31 [facility] Comment on above: Performed By: #### 2 903402, 0133126, 41577072, 9287994, 5520203, 9264032, 6321606 ####[facility] [address] [place] [address] Glucose [Mass/Vol] 108 mg/dL Normal 55-199 [facility] Comment on above: Result Comment: If t his glucose result represents a fasting glucose, interpretation should refer to the following reference range: 55-99 mg/dL Performed By: #### 2 600346, 0699351, 20179895, 3708104, 4600356, 2126054, 3458393 ####[facility] [address] [place] [address] Potassium [Moles/Vol] 3.7 mmol/L Normal 3.5-5.3 [facility] Comment on above: Performed By: #### 2 834645, 7460446, 93467642, 5340283, 6203358, 0393645, 9957340 ####[facility] [address] [place] [address] Sodium [Moles/Vol] 134 mmol/L Low 135-145 [facility] Comment on above: Performed By: #### 2 721270, 8050875, 76582196, 9009722, 0892879, 2565498, 3541725 ####[facility] [address] [place] [address] CBC w/ Auto Diffon Erythrocyte distribution width (RBC) [Ratio] 13.5 % Normal 10.9-14.2 [facility] Comment on above: Performed By: #### 2 478944, 6373810, 16699410, 9361664, 0465307, 5941199, 9337398 #### [facility] [address] [place] [address] Hematocrit (Bld) [Volume fraction] 38.7 % Normal 34.0-46.0 [facility] Comment on above: Performed By: #### 2 307740, 6549768, 39850047, 7954925, 0670543, 9957137, 8124890 #### [facility] [address] [place] [address] Hemoglobin (Bld) [Mass/Vol] 13.2 g/dL Normal 12.0-16.0 [facility] Comment on above: Performed By: #### 2 024415, 3618195, 74272846, 3963244, 6143826, 9489373, 4653450 #### [facility] [address] [place] [address] MCH (RBC) [Entitic mass] 27.6 pg Normal 27.0-34.0 [facility] Comment on above: Performed By: #### 2 093913, 2165884, 85141259, 7210561, 5301436, 0534557, 7488272 #### [facility] [address] [place], [place] [address] MCHC (RBC) [Mass/Vol] 34.2 g/dL Normal 31.4-36.0 [facility] Comment on above: Performed By: #### 2 771889, 0772500, 23258480, 5614713, 9460725, 9591693, 1853317 #### [facility] [address] [place] [address] MCV (RBC) [Entitic vol] 81.0 fL Normal 80.0-100.0 [facility] Comment on above: Performed By: #### 2 753153, 2232024, 91386785, 9521102, 2617279, 0186656, 8565233 #### [facility] [address] [place] [address] Platelet mean volume (Bld) [Entitic vol] 7.9 fL Normal 6.4-10.8 [facility] Comment on above: Performed By: #### 2 482791, 1025613, 19076804, 1096497, 4288295, 0781349, 4628818 #### [facility] [address] [place] [address] Platelets (Bld) [#/Vol] 415.0 E9/L Normal 150.0-500.0 [facility] Comment on above: Performed By: #### 2 761695, 9858801, 90102255, 5625135, 2876530, 5363228, 7766263 #### [facility] [address] [place] [address] RBC (Bld) [#/Vol] 4.8 E12/L Normal 4.3-5.9 [facility] Comment on above: Performed By: #### 2 079020, 0966075, 40734281, 7558033, 3271009, 2255056, 2776624 #### [facility] [address] [place] [address] WBC corrected for nucl RBC Auto (Bld) [#/Vol] 10.1 E9/L Normal 4.0-11.0 [facility] Comment on above: Performed By: #### 2 771579, 5425932, 49252597, 3584312, 5381751, 7508371, 8600142 #### [facility] [address] [place] [address] CHEMISTRYOrdered By: SYSTEM SYSTEM on 10-18-2021 Albumin [...] (Electronic Signature): 10/18/2021 10:19 am Signed by: tEhan Brothers M.D. Transcribed by: RAMANDEEP Technologist: FELA Technical Comments GFR (mL/min/1/73m2) >60 Contrast: Isovue 300 Contrast amount in ml's: 100 Normal [facility] Consent for Treatmenton 10-07 Consent for Treatment [id number]:127 Normal [facility] Discharge Instructionson Discharge Instructions [id number]:127 Normal [facility] ED Clinical Summaryon 2021 ED Clinical Summary (Inserted Image. Ade ble to display) [place] [id number] ED Clinical Summary Person Information Name: GLADIS MICHAEL [facility] Age: 46 Years : 1975 Sex: Female Language: Citizen Of [place] PCP: JOVITA WAITE CNP Marital Status: Phone: [phone] Visit Id: Visit Reason: Flank pain; Nausea; [...] 10/18/2021 12:30:36 10/18/2021 12:30:36 10/18/2021 12:30:36 ADDRESS: [address] [place] [phone] PHYS DOC NOTES: MEDICAL INFORMATION: Prescriptions Given: New Medications [facility]/pharmacy #[id number], [address], [place] [phone], [phone] acetaminophen-oxycodone (Percocet 5 mg-325 mg oral tablet) [...] Follow up: With: Address: When: Gustavo FONTAINE [facility], [address] [place] [address] [address] [place] [address] Business (1) In 3 days 10/21/2021 With: Address: When: JOVITA WAITE [address] [facility] [place] [phone] streamit (1) In 3 days 10/21/2021 Comments: The ultrasound showed that you have fluid in your fallopian tube. Make sure to follow-up with Dr. Fontaine as instructed. Return to the emergency room if your pain gets worse, fever, vomiting or any new symptoms. DIAGNOSIS: 1:Hydrosalpinx; Abdominal pain, acute, left lower quadrant Normal [facility] ED Note-Physicianon 10-19-19 ED Note-Physician Basic Information Medical Decision Making The care of the patient was transitioned to ct upon shift change. The patient has presented [...] needed for pain, 12 tab(s), Refill(s) 0, [facility]/pharmacy #[id number], 160, cm, 10/18/21 4:04:00 EDT, Height/Length Dosing, 107, kg, 10/18/21 4:04:00 EDT, Weight Dosing Abdominal pain, acute, left lower quadrant (R10.32: Left lower quadrant pain) Orders: doxycycline, 100 mg = 1 tab(s), Oral, BID, # 20 tab(s), Refills(s) 0, Pharmacy: [facility]/pharmacy #[id number], 160, cm, 10/18/21 4:04:00 EDT, [...] Gustavo FONTAINE In 3 days 10/21/[address] [place] [address]- Business (1) Additional Instructions: JOVITA WAITE In 3 days 10/21/[address] [place] [phone] Business (1) Additional Instructions: The ultrasound showed [...] 04:30:00) Lymph Auto: 25.5 % (10/18/21 04:30:00) Ramsey Auto: 5.7 % (10/18/21 04:30:00) Eos Auto: 1.3 % (10/18/21 04:30:00) Basophil Auto: 1 % (10/18/21 04:30:00) Neutro Absolute: 6.7 E9/L (10/18/21 04:30:00) Lymph Absolute: 2.6 E9/L (10/18/21 04:30:00) Ramsey Absolute: 0.6 E9/L (10/18/21 04:30:00) Eos Absolute: [...] gm/dL ( (more content not included)... Normal [facility] Comment on above: Result Comment: Elec [...] 13.2 g (more content not included)... Normal [facility] Comment on above: Result Comment: Elec [...] these instructions at home: Medicines ? Take qzze-ipq-ivnwcph and prescription medicines only as told by [...] your condition for any changes. ? Take zmpp-iuq-pzvgxxi and prescription medicines only as told by [...] 03/05/2006 Document Revised: 10/04/2019 Document Reviewed: 10/04/2019 Bundle Patient Education ? 2019 [employer] Normal [facility] ED Patient Summaryon 022 ED Patient Summary (Inserted Image. Ade ble to display) [place] [id number] Patient Discharge Instructions Person Information Name: GLADIS MICHAEL Age: 46 Years Arrival Date: 10/18/2021 03:56:10 Discharge Diagnosis: 1:Hydrosalpinx; Abdominal pain, acute, left lower quadrant Primary Care Physician: JOVITA WAITE CNP Provider Information Primary Provider: Jeffy Das DO Advanced Tuck Pointer:None The exam and treatment you received in the Emergency Department were for an urgent problem and are not intended as complete care. It is important that you follow up with a doctor, nurse practitioner, or physician?s botany laboratory assistant for ongoing care. If your symptoms [...] Follow-up Instructions: With: Address: When: Gustavo FONTAINE [facility], [address] [place] [address] [place] [place] [address] Business (1) In 3 days 10/21/2021 With: Address: When: JOVITA WAITE [address] [place] [phone] Business (1) In 3 days 10/21/2021 Comments: [...] opioids can be used to help relieve ogdouuyk-de-eyohlr pain and are often prescribed following a [...] mail-back p (more content not included)... Normal [facility] HEMATOLOGYOrdered By: SYSTEM SYSTEM on 10-18-2021 Basophils/100 WBC (Bld) 1.0 % Normal 0.0 - 2.0 % [facility] HemeAutoSS Basophils/Leukocyte s Auto (Bld) [Pure # fraction] 0.1 E9/L Normal 0.0 - 0.2 E9/L [facility] HemeAutoSS Eosinophils/100 WBC (Bld) 1.3 % Normal 0.0 - 8.0 % [facility] HemeAutoSS Eosinophils/Leukocy denise Auto (Bld) [Pure # [...] 10.1 E9/L Normal 4.0 - 11.0 E9/L [facility] HemeAutoSS Hep Func Panelon 10-18-2021 Albumin [Mass/Vol] 4.2 g/dL Normal 3.3-5.0 [facility] Comment on above: Performed By: #### 2 312339, 1252287, 70277065, 5846959, 0930197, 5836968, 0223823 ####[facility] [address] [place] [address] Albumin/Globulin (S) [Mass conc ratio] 1.2 Normal 1.1-2.2 [facility] Comment on above: Performed By: #### 2 311892, 1488734, 61684537, 6932032, 2926613, 5112862, 6817071 ####[facility] [address] [place] [address] ALP [Catalytic activity/Vol] 48 Int._Unit/L Normal 21-98 [facility] Comment on above: Performed By: #### 2 791175, 8567422, 41071268, 1919952, 9726544, 4309137, 4800480 ####[facility] [address] [place] [address] ALT No additional P-5'-P [Catalytic activity/Vol] 26 Int._Unit/L Normal 6-46 [facility] Comment on above: Performed By: #### 2 963427, 3392732, 03228944, 9238061, 1743866, 2149415, 6862393 ####[facility] [address] [place] [address] AST [Catalytic activity/Vol] 23 Int._Unit/L Normal 5-43 [facility] Comment on above: Performed By: #### 2 451830, 8659072, 00855328, 2575716, 6373447, 4216680, 0187110 ####[facility] [address] [place] [address] Bilirubin [Mass/Vol] 0.8 mg/dL Normal 0.0-1.1 [facility] Comment on above: Performed By: #### 2 053317, 2943059, 23716957, 6136188, 8696334, 9818982, 6674578 ####[facility] [address] [place] [address] Bilirubin.direct [Mass/Vol] 0.2 mg/dL Normal 0.1-0.4 [facility] Comment on above: Performed By: #### 2 616802, 8622120, 09825211, 6346080, 3112234, 2036992, 5212688 ####[facility] [address] [place] [address] Bilirubin.indirect [Mass or moles/Vol] 0.6 mg/dL Normal 0.1-0.9 [facility] Comment on above: Performed By: #### 2 657040, 1383184, 37112725, 4491281, 8427553, 0316355, 2734209 ####[facility] [address] [place] [address] Globulin (S) [Mass/Vol] 3.6 g/dL Normal 1.4-4.0 [facility] Comment on above: Performed By: #### 2 577750, 9852535, 15678718, 1970942, 9405489, 0531338, 1934271 ####[facility] [address] [place] [address] Protein [Mass/Vol] 7.8 g/dL Normal 6.0-7.8 [facility] Comment on above: Performed By: #### 2 823714, 2647026, 99877547, 4521071, 2127897, 7908944, 4152481 ####[facility] [address] [place] [address] Lactic Acidon 10-18-2021 Lactate [Mass/Vol] 1.1 mmol/L Normal 0.5-2.2 [facility] Comment on above: Performed By: #### 2 884552, 0176722, 13103983, 7623657, 7805102, 3382709, 5782829 ####[facility] [address] [place] [address] Lipase Levelon 10-18-2021 Lipase [Catalytic activity/Vol] 28 U/L Normal 13-58 [facility] Comment on above: Performed By: #### 2 410741, 2845800, 81381233, 3802769, 8823527, 8332678, 8677828 ####[facility] [address] [place] [address] RAD - Preliminary Cat Scan R eporton 10-18-2021 RAD - Preliminary Cat Scan Report [id number]:127 Normal [facility] SEROLOGYOrdered By: Amber russ on 10-18-2021 HCG.beta subunit (U) [Moles/Vol] Negative Normal [facility] Man Sero U BetaHcg Qualon 10-18-2021 HCG.beta subunit (U) [Moles/Vol] Negative Normal [facility] Comment on above: Performed By: #### 2 0473412, 28149344 ####[facility] [address] [place] [address] UA With Cult Reflexon 2021 Bacteria LM Ql (Urine sed) TRACE Normal Trace [facility] Comment on above: Performed By: #### 2 3620124, 77759684 ####[facility] [address] [place] [address] Bilirubin Ql (U) Negative Normal Negative [facility] Comment on above: Performed By: #### 2 8006599, 70426555 ####[facility] [address] [place] [address] Clarity (U) CLEAR Normal Clear [facility] Comment on above: Performed By: #### 2 1523301, 85429089 ####[facility] [address] [place] [address] Color (U) STRAW Invalid Interpretation Code [facility] Comment on above: Performed By: #### 2 2725501, 42272572 ####[facility] [address] [place] [address] Epithelial cells.squamous LM.HPF (Urine sed) [#/Area] 0-2 Normal 0-2 [facility] Comment on above: Performed By: #### 2 2094079, 69699583 ####[facility] [address] [place] [address] Glucose Test strip (U) [Mass/Vol] Negative Normal Negative [facility] Comment on above: Performed By: #### 2 8993065, 80467407 ####[facility] [address] [place] [address] Hemoglobin Ql (U) TRACE Abnormal Negative [facility] Comment on above: Performed By: #### 2 4276840, 85138613 ####[facility] [address] [place] [address] Ketones (U) [Mass/Vol] Negative Normal Negative [facility] Comment on above: Performed By: #### 2 4446277, 73913160 ####[facility] [address] [place] [address] [place].plasma/Lith ium.RBC (Bld) [Mass ratio] 0-3 Normal 0-3 [facility] Comment on above: Performed By: #### 2 9680872, 44576986 ####[facility] [address] [place] [address] Nitrite Ql (U) Negative Normal Negative [facility] Comment on above: Performed By: #### 2 7255484, 96509684 ####[facility] [address] [place] [address] pH (U) 6.5 [pH] Invalid Interpretation Code 5.0-9.0 [facility] Comment on above: Performed By: #### 2 0817945, 26198815 ####[facility] [address] [place] [address] Protein (U) [Mass/Vol] Negative Normal Negative [facility] Comment on above: Performed By: #### 2 0267786, 81998940 ####[facility] [address] [place] [address] Specific gravity (U) [Rel density] 1.010 Invalid Interpretation Code 1.005-1.030 [facility] Comment on above: Performed By: #### 2 1152393, 32374100 ####[place] [address] Type of Urine collection method Clean Catch Normal [facility] Comment on above: Performed By: #### 2 9490565, 43231320 ####[place] [address] Urobilinogen Qn (U) 0.2 {Sonya'U}/dL Normal 0.0-1.0 [facility] Comment on above: Performed By: #### 2 3201883, 87442529 ####[place] [address] WBC Auto Ql (U) TRACE Abnormal Negative [facility] Comment on above: Performed By: #### 2 5518071, 90539661 ####[place] [address] WBC LM.HPF (Urine sed) [#/Area] 0-5 Normal 0-5 [facility] Comment on above: Performed By: #### 2 1025020, 25418921 ####[place] [address] URINALYSISOrdered By: Gasper Moon on 10-18-2021 Bacteria [...] (Urine sed) [#/Area] 0-2 /HPF Normal 0-2/HPF [facility] UA Auto SS Glucose Test strip (U) [Mass/Vol] Negative (10/18/21 5:09 AM) Normal Negative [facility] UA Auto SS Hemoglobin Ql (U) Trace *ABN* (10/18/21 5:09 AM) Invalid Interpretation Code Negative [facility] UA Auto SS Ketones (U) [Mass/Vol] Negative (10/18/21 5:09 AM) Normal Negative [facility] UA Auto SS [place].plasma/Lith ium.RBC (Bld) [Mass ratio] 0-3 /HPF Normal 0-3/HPF [facility] UA Auto SS Nitrite Ql (U) Negative (10/18/21 5:09 AM) Normal Negative [facility] UA Auto SS pH (U) 6.5 *NA* (10/18/21 5:09 AM) Invalid Interpretation Code 5.0 - 9.0 [facility] UA Auto SS Protein (U) [Mass/Vol] Negative (10/18/21 5:09 AM) Normal Negative [facility] UA Auto SS Specific gravity (U) [Rel density] 1.010 *NA* (10/18/21 5:09 AM) Invalid Interpretation Code 1.005 - 1.030 [facility] UA Auto SS UA Spec Desc Clean Catch (10/18/21 5:09 AM) Normal [facility] UA Auto SS Urobilinogen Qn (U) 0.0421372 {Sonya'U}/dL Normal 0.0 - 1.0 EU/dL [facility] UA Auto SS WBC Auto Ql (U) Trace *ABN* (10/18/21 5:09 AM) Invalid Interpretation Code Negative [facility] UA Auto SS WBC LM.HPF (Urine sed) [#/Area] 0-5 /HPF Normal 0-5/HPF [facility] UA Auto SS US Pelvis Non-OB Completeon [...] M.D. Transcribed by: RAMANDEEP Technologist: CAIN Malin [facility] US Transvaginal Non-OBon US Transvaginal Non-OB Exam Date/Time: 10/18/2021 07:59 EDT Reason for Exam: Pelvic pain Report PLEASE REFER TO THE ULTRASOUND NON-OB COMPLETE REPORT. FINAL REPORT Dictated: 10/18/2021 11:12 am Ethan Brothers M.D. Signed (Electronic Signature): 10/18/2021 11:12 am Signed by: Ethan Brothers M.D. Transcribed by: RAMANDEEP Technologist: CAIN Malin [facility] eGFRon 10-18-2021 GFR/1.73 sq M.predicted among blacks MDRD (S/P/Bld) [Vol rate/Area] mL/min/{1.73_m2} Normal >=59 [facility] Comment on above: Order Comment: Order added by Discern Expert. Result Comment: eGFR is race adjusted. AA=. Performed By: #### 2 625150, 1050142, 10316787, 1021651, 4800723, 7380231, 4659941 ####[facility] [address] [place] [address] GFR/1.73 sq M.predicted among non-blacks MDRD (S/P/Bld) [Vol rate/Area] mL/min/{1.73_m2} Normal >=59 [facility] Comment on above: Order Comment: Order added by Discern Expert. Result Comment: [employer] [facility] kidney disease could be indicated at eGFR's of less than 60 mL/min/1.73m2. Kidney failure is indicated at less than 15 mL/min/1.73m2. Performed By: #### 2 935586, 1649260, 56107579, 2468674, 4301355, 7759026, 2980214 ####[facility] [address] [place] [address] CBC AUTO DIFFon 09-27-2021 BASO # 0.1 103/ul Normal 0.0-0.1 [facility] Comment on above: Performed By: #### C BC #### [facility] [address] [place] [address] Dr. Kristen Gambino Basophils/100 WBC (Bld) 1.0 % Normal 0.2-2.0 [facility] Comment on above: Performed By: #### C BC #### [facility] [address] [place] [address] Dr. Kristen Gambino EO # 0.1 103/ul Normal 0.0-0.7 [facility] Comment on above: Performed By: #### C BC #### [facility] [address] [place] [address] Dr. Kristen Gambino Eosinophils/100 WBC (Bld) 0.9 % Normal 0.9-7.0 [facility] Comment on above: Performed By: #### C BC #### [facility] [address] [place] [address] Dr. Kristen Gambino Erythrocyte distribution width (RBC) [Ratio] 13.3 % Normal 11.0-15.0 [facility] Comment on above: Performed By: #### C BC #### [facility] [address] [place] [address] Dr. Kristen Gambino Hematocrit (Bld) [Volume fraction] 44.6 % Normal 36.0-48.0 [facility] Comment on above: Performed By: #### C BC #### [facility] [address] [place] [address] Dr. Kristen Gambino Hemoglobin (Bld) [Mass/Vol] 14.4 g/dL Normal 12.0-16.0 [facility] Comment on above: Performed By: #### C BC #### [facility] [address] [place] [address] Dr. Kristen Gambino IG # 0.03 10e3/ul Normal 0.00-0.03 [facility] Comment on above: Performed By: #### C BC #### [facility] [address] [place] [address] Dr. Kristen Gambino IG % 0.3 % Normal 0.0-0.5 [facility] Comment on above: Performed By: #### C BC #### [facility] [address] [place] [address] Dr. Kristen Gambino LYMPH # 1.6 103/ul Normal 1.2-3.8 [facility] Comment on above: Performed By: #### C BC #### [facility] [address] [place] [address] Dr. Kristen Gambino Lymphocytes/100 WBC (Bld) 17.9 % Critically low 20.5-60.0 [facility] Comment on above: Performed By: #### C BC #### [facility] [address] [place] [address] Dr. Kristen Gambino MANUAL DIFF REQ NO Normal [facility] Comment on above: Performed By: #### C BC #### [facility] [address] [place] [address] Dr. Kristen Gambino MCH (RBC) [Entitic mass] 27.1 pg Normal 26.7-34.0 [facility] Comment on above: Performed By: #### C BC #### [facility] [address] [place] [address] Dr. Kristen Gambino MCHC (RBC) [Mass/Vol] 32.3 g/dL Normal 29.9-35.2 [facility] Comment on above: Performed By: #### C BC #### [facility] [address] [place] [address] Dr. Kristen Gambino MCV (RBC) [Entitic vol] 84.0 fL Normal 81.0-99.0 [facility] Comment on above: Performed By: #### C BC #### [facility] [address] [place] [address] Dr. Kristen Gambino MONO # 0.7 103/ul Normal 0.3-0.8 [facility] Comment on above: Performed By: #### C BC #### [facility] [address] [place] [address] Dr. Kristen Gambino Monocytes/100 WBC (Bld) 7.6 % Normal 1.7-12.0 [facility] Comment on above: Performed By: #### C BC #### [facility] [address] [place] [address] Dr. Kristen Gambino NEUT # 6.6 103/ul Critically high 1.4-6.5 [facility] Comment on above: Performed By: #### C BC #### [facility] [address] [place] [address] Dr. Kristen Gambino Neutrophils/100 WBC (Bld) 72.3 % Normal 43.0-75.0 [facility] Comment on above: Performed By: #### C BC #### [facility] [address] [place] [address] Dr. Kristen Gambino Platelet mean volume (Bld) [Entitic vol] 9.8 fL Normal 9.5-13.5 [facility] Comment on above: Performed By: #### C BC #### [facility] [address] [place] [address] Dr. Kristen Gambino PLT 427 103/ul Normal 150-450 [facility] Comment on above: Performed By: #### C BC #### [facility] [address] [place] [address] Dr. Kristen Gambino RBC 5.31 106/ul Normal 4.20-5.40 [facility] Comment on above: Performed By: #### C BC #### [facility] [address] [place] [address] Dr. Kristen Gambino WBC 9.1 103/ul Normal 4.0-11.0 [facility] Comment on above: Performed By: #### C BC #### [facility] [address] [place] [address] Dr. Kristen Gambino LIPID PROFILEon 09-27-2021 CHOL-HDL RATIO NORM SEE BELOW Normal [facility] Comment on above: Result Comment: 3.3 - 4.4 LOW RISK 4.4 - 7.1 AVERAGE RISK 7.1 - 11.0 MODERATE RISK >11.0 HIGH RISK Performed By: #### C MP, LIPID #### [facility] [address] [place] [address] Dr. Kristen Gambino Cholesterol [Mass/Vol] 186 mg/dL Normal <=200 [facility] Comment on above: Performed By: #### C MP, LIPID #### [facility] [address] [place] [address] Dr. Kristen Gambino Cholesterol in HDL [Mass/Vol] 43 mg/dL Normal 40-60 [facility] Comment on above: Performed By: #### C MP, LIPID #### [facility] [address] [place] [address] Dr. Kristen Gambino Cholesterol in LDL [Mass/Vol] 106.6 mg/dL Normal [facility] Comment on above: Performed By: #### C MP, LIPID #### [facility] [address] [address] [address] Kristen Gambino Cholesterol.total/C holesterol in HDL [Mass ratio] 4.3 {ratio} Normal [facility] Comment on above: Performed By: #### C MP, LIPID #### [facility] [address] [address] [address] Kristen Gambino HDL NORMAL > or = 60 mg/dl - LO W CARDIOVASCULAR RISK <40 mg/dl - HIGH CARDIOVASCULAR RISK Normal [facility] Comment on above: Performed By: #### C MP, LIPID #### [facility] [address] [place] [address] Dr. Kristen Gambino LDL CALC NORMAL SEE BELOW Normal [facility] Comment on above: Result Comment: <100 mg/dl OPTIMAL 100 - 129 mg/dl NEAR OR ABOVE OPTIMAL 130 - 159 mg/dl BORDERLINE HIGH 160 - 189 mg/dl HIGH >190 mg/dl VERY HIGH Performed By: #### C MP, LIPID #### [facility] [address] [address] [address] Kristen Gambino Triglyceride [Mass/Vol] 182 mg/dL Critically high <=150 [facility] Comment on above: Performed By: #### C MP, LIPID #### [facility] [address] [address] [address] Kristen Gambino VLDL CALC 36.4 mg/dL Normal [facility] Comment on above: Performed By: #### C MP, LIPID #### [facility] [address] [address] [address] Kristen Gambino PROF 14(COMP METB)on 022 Albumin [Mass/Vol] 3.7 g/dL Normal 3.4-5.[address] [facility] Comment on above: Performed By: #### C MP, LIPID #### [facility] [address] [address] [address] Kristen Gambino Albumin/Globulin [Mass ratio] 0.8 {ratio} Normal [facility] Comment on above: Performed By: #### C MP, LIPID #### [facility] [address] [address] [address] Kristen Gambino ALP [Catalytic activity/Vol] 70 U/L Normal 46-116 [facility] Comment on above: Performed By: #### C MP, LIPID #### [facility] [address] [address] [address] Kristen Gambino ALT [Catalytic activity/Vol] 35 U/L Normal 14-59 [facility] Comment on above: Performed By: #### C MP, LIPID #### [facility] [address] [address] [address] Kristen Gambino Anion gap [Moles/Vol] 13.1 mmol/L Normal [facility] Comment on above: Performed By: #### C MP, LIPID #### [facility] [address] [address] [address] Kristen Gambino AST [Catalytic activity/Vol] 19 U/L Normal 15-37 [facility] Comment on above: Performed By: #### C MP, LIPID #### [facility] [address] [address] [address] Kristen Gambino Bilirubin [Mass/Vol] 0.7 mg/dL Normal 0.2-1.3 [facility] Comment on above: Performed By: #### C MP, LIPID #### [facility] [address] [address] [address] Kristen Gambino Calcium [Mass/Vol] 8.5 mg/dL Normal 8.5-10.[address] [facility] Comment on above: Performed By: #### C MP, LIPID #### [facility] [address] [address] [address] Kristen Gambino Chloride [Moles/Vol] 102 mmol/L Normal 98-107 [facility] Comment on above: Performed By: #### C MP, LIPID #### [facility] [address] [address] [address] Kristen Gambino CO2 [Moles/Vol] 25.9 mmol/L Normal 22.0-30.0 [facility] Comment on above: Performed By: #### C MP, LIPID #### [facility] [address] [address] [address] Kristen Gambino Creatinine [Mass/Vol] 0.62 mg/dL Normal 0.52-1.04 [facility] Comment on above: Performed By: #### C MP, LIPID #### [facility] [address] [address] [address] Kristen Gambino EGFR-AF EMIRATI >60 Normal >=60 [facility] Comment on above: Performed By: #### C MP, LIPID #### [facility] [address] [address] [address] Kristen Gambino EGFR-NON AF EMIRATI >60 Normal >=60 [facility] Comment on above: Performed By: #### C MP, LIPID #### [facility] [address] [place] [address] Dr. Kristen Gambino Globulin (S) [Mass/Vol] 4.4 g/dL Normal [facility] Comment on above: Performed By: #### C MP, LIPID #### [facility] [address] [address] [address] Kristen Gambino Glucose [Mass/Vol] 104 mg/dL Normal 74-106 [facility] Comment on above: Performed By: #### C MP, LIPID #### [facility] [address] [address] [address] Kristen Gambino Potassium [Moles/Vol] 4.0 mmol/L Normal 3.4-5.0 [facility] Comment on above: Performed By: #### C MP, LIPID #### [facility] [address] [address] [address] Kristen Gambino Protein [Mass/Vol] 8.1 g/dL Normal 6.1-8.2 [facility] Comment on above: Performed By: #### C MP, LIPID #### [facility] [address] [address] [address] Kristen Gambino Sodium [Moles/Vol] 137 mmol/L Normal 137-145 [facility] Comment on above: Performed By: #### C MP, LIPID #### [facility] [address] [place], [place] [address] Dr. Kristen Gambino Urea nitrogen [Mass/Vol] 12.0 mg/dL Normal 7.0-18.0 [facility] Comment on above: Performed By: #### C MP, LIPID #### [facility] [address] [place], [place] [address] Dr. Kristen Gambino Urea nitrogen/Creatinine [Mass ratio] 19.4 mg/mg Normal [facility] Comment on above: Performed By: #### C MP, LIPID #### [facility] [address] [place], [place] [address] Dr. Kristen Gambino PROGRESSon 10-21-2017 PROGRESS HNO ID: [id number] thor: Isaac Carrasco: (none)Author Type: PhysicianType: Progress NotesFiled: 10/21/2017 2:01 PMNote Text:PATIENT NAME: Gladis DamianNickRN: [id number] PHYSICIAN: AVINASH Rubin [facility] [address]ASFURUU CARE PHYSICIAN: MASOOD Rubin PHYSICIANS:CHIEF COMPLAINT: Pituitary [...] for5 days straight. Went to ER 02/26. Ramsey was negative, strep negative.Flu negative. She was [...] plan. I answered all questionssatisfactorily..Tulio Shelton D.O.Medical OncologistMercy Hospital [facility] CNOVSPon 10-20-2017 CNOVSP Visit (SP) Office ([place]) -------CHIPGLADIS COFFEY ([id number]) 1975 FDate Time Provider Department10/20/17 10:00 AM ISAAC SHELTON During your visit today, we recorded the following information about you: Temperature Pulse Respiration Blood pressure 98.5 degrees 69/minute 18/minute 159/106 Weight Height 105.9 kg 1.575 Kassidy Shelton DO 10/21/2017 2:01 PM SignedPATIENT NAME: Gladis EdlerRN: [id number] PHYSICIAN: Joseph Harris DO[address] [facility] [id number] CARE PHYSICIAN: MASOOD Rubin PHYSICIANS:CHIEF COMPLAINT: Pituitary [...] for 5days straight. Went to ER 02/26. Ramsey was negative, strep negative. Flunegative. 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]Order(s):CONSULT TO ENDOCRINOLOGY [9007] Order #: [id number]: 1Disposition: Return in about 7 months (around [...] by ISAAC SHELTON DO on 10/21/17 Normal [facility] Remote Abs Gran + CBC (for F HC use only)on 10-20-2017 Absol Gran Count 6.74 k/uL Normal 1.45-7.50 [facility] Erythrocyte distribution width Auto Ratio (RBC) 13.9 % Normal 11.5-15.0 [facility] Erythrocytes (RBC) 4.76 10*6/uL Normal 3.90-5.20 [facility] Hematocrit (HCT) 39.5 % Normal 36.0-46.0 [facility] Hemoglobin mass conc (Bld) 13.4 g/dL Normal 11.5-15.5 [facility] MCH 28.2 pG Normal 26.0-34.0 [facility] MCHC mass conc (RBC) 33.9 g/dL Normal 30.5-36.0 [facility] MCV 83.0 fL Normal 80.0-100.0 [facility] Platelet mean volume (PMV) 9.4 fL Normal 9.0-12.7 [facility] Platelets 434 10*3/uL High 150-400 [facility] WBC (Leukocytes) 10.26 10*3/uL Normal 3.70-11.00 [facility] CNOVSPon 10-09-2017 CNOVSP Visit (SP) Office ([place]) -------GLADIS MICHAEL ([id number]) 1975 FDate Time Provider Department10/09/17 11:15 AM ISAAC SHELTON During your visit today, we recorded the following information about you: Temperature Pulse Respiration Blood pressure 98 degrees 75/minute 18/minute 151/106 Weight Height 111 kg 1.575 Isaac Myers 10/10/2017 2:10 AM SignedPATIENT NAME: Gladis ElderRN: [id number] PHYSICIAN: AVINASH Rubin [facility] [id number] CARE PHYSICIAN: MASOOD Rubin PHYSICIANS:CHIEF COMPLAINT: Lymphocytosis [...] for 5days straight. Went to ER 02/26. Ramsey was negative, strep negative. Flunegative. She was [...] plan. I answered allquestions satisfactorily..Hai Shelton D.O.Medical OncologistY[facility]ima [facility] [place], [place]Referring Provider: ISAAC SHELTON [[id number]]Allergies As of Date: 10/09/2017 Noted Allergy ReactionTOPROL XL (METOPROLOL) 04/11/2016 14 - Other: See Comments Comments: heart races per patientDate Reviewed: 10/09/2017Reviewed by: Denise Witt - Fully AssessedReason for Visit: lymphocytosis [Other] Cmt: follow up per nursePrimary Visit Diagnosis:Lymphocytosis [D72.820] Other Visit Diagnosis:Cervical adenopathy [R59.0]Order(s):CT NECK SOFT TISSUE W IVCON [5829994] Order #: [id number] FUTURE [] iv contrast (radiology procedure)Inject 1 [...] 1 EachRfl: 0 CT CHEST WO IVCON [[id number]] Order #: [id number] FUTURE CT CHEST W IVCON [[id number]] Order #: [id number] FUTURE iv contrast (radiology procedure)CT Chest W [...] by ISAAC SHELTON DO on 10/10/17 Normal [facility] PROGRESSon 10-09-2017 PROGRESS HNO ID: [id number] thor: Isaac Shelton JService: (none)Author Type: PhysicianType: Progress NotesFiled: 10/10/2017 2:10 AMNote Text:PATIENT NAME: Gladis PatelarMRN: [id number] PHYSICIAN: AVINASH Rubin [facility] [id number] CARE PHYSICIAN: MASOOD Rubin PHYSICIANS:CHIEF COMPLAINT: Lymphocytosis [...] for5 days straight. Went to ER 02/26. Ramsey was negative, strep negative.Flu negative. She was [...] plan.I answered all questions satisfactorily..Hai Shelton D.O.Medical OncologistHermosa [place], [place] Normal [facility] APTTon 10-06-2017 aPTT 22.4 s Low 23.0-32.4 [facility] Comment on above: Result Comment: Unfr actionated [...] laboratory APTT reagent in use throughout the [facility]. Performed By: #### P T, PTT, BMP, HFP, LD6, WSR, SEPG, MPASRM, KLFRS ####[facility] [place], [place] [phone] Basic Metabolic Panlon 10-06 Anion gap 12 mmol/L Normal 9-18 [facility] Comment on above: Performed By: #### P T, PTT, BMP, HFP, LD6, WSR, SEPG, MPASRM, KLFRS ####[facility]CJeff[address], [place] [phone] Calcium 9.5 mg/dL Normal 8.5-10.2 [facility] Comment on above: Performed By: #### P T, PTT, BMP, HFP, LD6, WSR, SEPG, MPASRM, KLFRS ####[facility], [place] [phone] Chloride 96 mmol/L Low 97-105 [facility] Comment on above: Performed By: #### P T, PTT, BMP, HFP, LD6, WSR, SEPG, MPASRM, KLFRS ####[address] [place] [id number] [phone] CO2 26 mmol/L Normal 22-30 [facility] Comment on above: Performed By: #### P T, PTT, BMP, HFP, LD6, WSR, SEPG, MPASRM, KLFRS ####[address] [place] [phone] Creatinine 0.54 mg/dL Low 0.58-0.96 [facility] Comment on above: Performed By: #### P T, PTT, BMP, HFP, LD6, WSR, SEPG, MPASRM, KLFRS ####[address] [phone] eGFR (non-black) mL/min/{1.73_m2} Normal [facility] Comment on above: Result Comment: [...] BMP, HFP, LD6, WSR, SEPG, MPASRM, KLFRS ####[address] [phone] Glucose mass conc 81 mg/dL Normal 74-99 [facility] Comment on above: Result Comment: The [place] [employer] (ADA) provides guidance for cutoff [...] Standards of Medical Care in Diabetes 2016, [place] [employer]. Diabetes Care. 2016.39(Suppl 1). Performed By: #### P T, PTT, BMP, HFP, LD6, WSR, SEPG, MPASRM, KLFRS ####[address] [place] [address] [address] [phone] Potassium molar conc 4.4 mmol/L Normal 3.7-5.1 [facility] Comment on above: Performed By: #### P T, PTT, BMP, HFP, LD6, WSR, SEPG, MPASRM, KLFRS ####[address] [place] [address] [address] [phone] Sodium 134 mmol/L Low 136-144 [facility] Comment on above: Performed By: #### P T, PTT, BMP, HFP, LD6, WSR, SEPG, MPASRM, KLFRS ####[address] [address] [address] [phone] Urea nitrogen 10 mg/dL Normal 7-21 [facility] Comment on above: Performed By: #### P T, PTT, BMP, HFP, LD6, WSR, SEPG, MPASRM, KLFRS ####[address] [place] [address] [address] [phone] Hepatic Functn Panelon 10-06 Alanine aminotransferase (ALT) 20 U/L Normal 7-38 [facility] Comment on above: Performed By: #### P T, PTT, BMP, HFP, LD6, WSR, SEPG, MPASRM, KLFRS ####[address] [address] [address] [phone] Albumin 4.3 g/dL Normal 3.9-4.9 [facility] Comment on above: Performed By: #### P T, PTT, BMP, HFP, LD6, WSR, SEPG, MPASRM, KLFRS ####[place] [phone]Cleveland[address] [phone] Alkaline phosphatase (ALP) 64 U/L Normal 32-117 [facility] Comment on above: Performed By: #### P T, PTT, BMP, HFP, LD6, WSR, SEPG, MPASRM, KLFRS ####[address] [place] [address] [address]leveland[address] [phone] Aspartate aminotransferase (AST) 14 U/L Normal 13-35 [facility] Comment on above: Performed By: #### P T, PTT, BMP, HFP, LD6, WSR, SEPG, MPASRM, KLFRS ####[address] [address] [address]ClevelA[address] [phone] Bilirubin (total) 0.3 mg/dL Normal 0.2-1.3 [facility] Comment on above: Performed By: #### P T, PTT, BMP, HFP, LD6, WSR, SEPG, MPASRM, KLFRS ####[address] [address] [address] [phone] Bilirubin,Conjugate d <0.2 Normal <0.2 [facility] Comment on above: Performed By: #### P T, PTT, BMP, HFP, LD6, WSR, SEPG, MPASRM, KLFRS ####[place] [phone]Cleveland[address] [phone] Protein 7.9 g/dL Normal 6.3-8.0 [facility] Comment on above: Performed By: #### P T, PTT, BMP, HFP, LD6, WSR, SEPG, MPASRM, KLFRS ####[place] [address] [address]leveland[address] [phone] [place]/Cope,Free,Seron 2017 K/L Ratio, Serum 1.83 High 0.26-1.65 [facility] Comment on above: Performed By: #### P T, PTT, BMP, HFP, LD6, WSR, SEPG, MPASRM, KLFRS ####[facility]CJeff[address], [place] [phone] [place], Free, Serum 22.5 mg/L High 3.30-19.40 [facility] Comment on above: Result Comment: Rare ly, increased serum free light chains values may not be detected due to antigen excess phenomenon. Results should always be correlated with other laboratory results and clinical findings. Performed By: #### P T, PTT, BMP, HFP, LD6, WSR, SEPG, MPASRM, KLFRS ####[facility]Jeff[address], [place] [phone] Lambda, Free, Serum 12.3 mg/L Normal 5.7-26.3 [facility] Comment on above: Result Comment: Rare ly, increased serum free light chains values may not be detected due to antigen excess phenomenon. Results should always be correlated with other laboratory results and clinical findings. Performed By: #### P T, PTT, BMP, HFP, LD6, WSR, SEPG, MPASRM, KLFRS ####[facility]Jeff[address], [place] [phone] LDon 10-06-2017 LD 141 U/L Normal 135-214 [facility] Comment on above: Performed By: #### P T, PTT, BMP, HFP, LD6, WSR, SEPG, MPASRM, KLFRS ####[place] [phone]CJeff[address], [place] [phone] Monoclonl Protein,Blon 10-06 MPA Interpretation SEE COMMENT Normal [facility] Comment on above: Result Comment: Atyp ical restricted bands are present in the IgG and lambda regions. Consistent with IgG lambda monoclonal gammopathy. Performed By: #### P T, PTT, BMP, HFP, LD6, WSR, SEPG, MPASRM, KLFRS ####[place] [address] [address] [phone] MPA Parminder/Milner Ratio 2.12 Normal 1-3 [facility] Comment on above: Performed By: #### P T, PTT, BMP, HFP, LD6, WSR, SEPG, MPASRM, KLFRS ####[place] [address] [phone] MPA Result M protein is present. Critically abnormal No M protein is identified. [facility] Comment on above: Performed By: #### P T, PTT, BMP, HFP, LD6, WSR, SEPG, MPASRM, KLFRS ####[address] [phone] MPA Serum IgA 130 mg/dL Normal 78-391 [facility] Comment on above: Performed By: #### P T, PTT, BMP, HFP, LD6, WSR, SEPG, MPASRM, KLFRS ####[address] [phone] MPA Serum IgG 1450 mg/dL High 717-1411 [facility] Comment on above: Performed By: #### P T, PTT, BMP, HFP, LD6, WSR, SEPG, MPASRM, KLFRS ####[place] [address] [address] [phone] MPA Serum IgM 123 mg/dL Normal 53-334 [facility] Comment on above: Performed By: #### P T, PTT, BMP, HFP, LD6, WSR, SEPG, MPASRM, KLFRS ####[place] [address] [address] [phone] Serum [place] 1260 mg/dL Normal 534-1267 [facility] Comment on above: Performed By: #### P T, PTT, BMP, HFP, LD6, WSR, SEPG, MPASRM, KLFRS ####[place] [phone] [phone] Serum Lambda 595 mg/dL Normal 253-653 [facility] Comment on above: Performed By: #### P T, PTT, BMP, HFP, LD6, WSR, SEPG, MPASRM, KLFRS ####[address] [phone] Staff Review Reviewed by Delores Means MD ([id number]) Normal [facility] Comment on above: Performed By: #### P T, PTT, BMP, HFP, LD6, WSR, SEPG, MPASRM, KLFRS ####[address] [phone] Protein Electrophor.on 10-06 Albumin 3.93 g/dL Normal 3.37-4.23 [facility] Comment on above: Performed By: #### P T, PTT, BMP, HFP, LD6, WSR, SEPG, MPASRM, KLFRS ####[address] [phone] Alpha 1 Globulin 0.16 gm/dL Low 0.18-0.31 [facility] Comment on above: Performed By: #### P T, PTT, BMP, HFP, LD6, WSR, SEPG, MPASRM, KLFRS ####[address] [phone] Alpha 2 Globulin 0.80 gm/dL Normal 0.52-0.97 [facility] Comment on above: Performed By: #### P T, PTT, BMP, HFP, LD6, WSR, SEPG, MPASRM, KLFRS ####[place] [phone] [phone] Beta Globulin 1.11 gm/dL Normal 0.84-1.36 [facility] Comment on above: Performed By: #### P T, PTT, BMP, HFP, LD6, WSR, SEPG, MPASRM, KLFRS ####[place] [phone]CJeff[address], [place] [phone] Gamma Globulin 1.49 gm/dL High 0.70-1.44 [facility] Comment on above: Performed By: #### P T, PTT, BMP, HFP, LD6, WSR, SEPG, MPASRM, KLFRS ####[place] [address] [address]Jeff[address], [place] [phone] Interpretation SEE COMMENT [facility] Comment on above: Result Comment: An M protein is identified on protein electrophoresis.See separate immunofixation report for characterization of the M protein.M protein is present on the background of a polyclonal immunoglobulin population. Quantitation of the M protein may overestimate the amount of M protein present. Performed By: #### P T, PTT, BMP, HFP, LD6, WSR, SEPG, MPASRM, KLFRS ####[place] [address] [address] [phone] M Protein Location Gamma fraction Normal [facility] Comment on above: Performed By: #### P T, PTT, BMP, HFP, LD6, WSR, SEPG, MPASRM, KLFRS ####[place] [address] [address], [place] [phone] M Ja Concentratn 0.18 gm/dL High 0.00 [facility] Comment on above: Performed By: #### P T, PTT, BMP, HFP, LD6, WSR, SEPG, MPASRM, KLFRS ####[address] [phone] SPE Staff Review Reviewed by Delores Means [place] ([id number]) [facility] Comment on above: Performed By: #### P T, PTT, BMP, HFP, LD6, WSR, SEPG, MPASRM, KLFRS ####[place] [address] [address]Jeff[address], [place] [phone] Total Protein, SPE 7.5 g/dL Normal 6.0-8.4 [facility] Comment on above: Performed By: #### P T, PTT, BMP, HFP, LD6, WSR, SEPG, MPASRM, KLFRS ####[facility] [place], [place] [phone] Protimeon 10-06-2017 INR Coag RelTime (Bld) 1.0 {INR} Normal 0.9-1.3 [facility] Comment on above: Result Comment: Muna min K Antagonist (VKA) Therapeutic Range: INR 2 to 3 (Target INR of 2.5)Note: For patients treated with VKA drugs, such as warfarin, the [place] [employer] 2012 Guideline recommends [...] al. Chest 2012, 141:7S-47SNishromeliaura RA, et al. [facility] 2017, 70: 252-289 Performed By: #### P T, PTT, BMP, HFP, LD6, WSR, SEPG, MPASRM, KLFRS ####[facility] [place], [place] [phone] Performed By: #### V WFPN ####[place] [phone] [place], [place] [phone] PT Sec 10.3 sec Normal 9.7-13.0 [facility] Comment on above: Performed By: #### P T, PTT, BMP, HFP, LD6, WSR, SEPG, MPASRM, KLFRS ####[facility]CJeff[address], [place] [phone] Performed By: #### V WFPN ####[facility]CRober[address] [phone] Remote CBCDIF (for [facility] use o nly)on 10-06-2017 Abs Baso 0.12 k/uL High <0.11 [facility] Comment on above: Performed By: #### R CBCDF ####[place] [address] [address]Cleveland[address] [place] [phone] Abs Ramsey 0.85 k/uL Normal <0.87 [facility] Comment on above: Performed By: #### R CBCDF ####[place] [address] [address]CRober[address] [place] [phone] Abs Neut 9.52 k/uL High 1.45-7.50 [facility] Comment on above: Performed By: #### R CBCDF ####[place] [address] [address] AveClevelAaron [place]ille [phone] Basophils/100 WBC Auto (Bld) 0.9 % Normal [facility] Comment on above: Performed By: #### R CBCDF ####[place] [address] [address]CR[address] [place] [phone] DTYPE Auto Diff Normal [facility] Comment on above: Performed By: #### R CBCDF ####[facility] AveClevelandOd[place], [place] [phone] Eosinophils 0.12 10*3/uL Normal <0.46 [facility] Comment on above: Performed By: #### R CBCDF ####[place] [address] [address]leveland[address], [place] [phone] Eosinophils/100 leukocytes 0.9 % Normal [facility] Comment on above: Performed By: #### R CBCDF ####[place] [address] [address], [place] [phone] Erythrocyte distribution width Auto Ratio (RBC) 13.8 % Normal 11.5-15.0 [facility] Comment on above: Performed By: #### R CBCDF ####[place] [address] [address], [place] [phone] Erythrocytes (RBC) 10*6/uL Normal <0.01 [facility] Comment on above: Performed By: #### R CBCDF ####[place] [address] [address], [place] [phone] Erythrocytes (RBC) 0.0 /100 WBC Normal 0 [facility] Comment on above: Performed By: #### R CBCDF ####[place] [address] [address], [place] [phone] Erythrocytes (RBC) 4.46 10*6/uL Normal 3.90-5.20 [facility] Comment on above: Performed By: #### R CBCDF ####[place] [address] [address], [place] [phone] Hematocrit (HCT) 37.7 % Normal 36.0-46.0 [facility] Comment on above: Performed By: #### R CBCDF ####[place] [address] [address], [place] [phone] Hemoglobin mass conc (Bld) 12.6 g/dL Normal 11.5-15.5 [facility] Comment on above: Performed By: #### R CBCDF ####[place] [address] [address], [place] [phone] Lymphocytes 2.67 10*3/uL Normal 1.00-4.00 [facility] Comment on above: Performed By: #### R CBCDF ####[place] [address] [address], [place] [phone] Lymphocytes/100 leukocytes 20.1 % Normal [facility] Comment on above: Performed By: #### R CBCDF ####[facility], [place] [phone] MCH 28.3 pG Normal 26.0-34.0 [facility] Comment on above: Performed By: #### R CBCDF ####[facility], [place] [phone] MCHC mass conc (RBC) 33.4 g/dL Normal 30.5-36.0 [facility] Comment on above: Performed By: #### R CBCDF ####[place] [address] [address], [place] [phone] MCV 84.5 fL Normal 80.0-100.0 [facility] Comment on above: Performed By: #### R CBCDF ####[place] [address] [address], [place] [phone] Monocytes/100 leukocytes 6.4 % Normal [facility] Comment on above: Performed By: #### R CBCDF ####[place] [address] [address], [place] [phone] Neutrophils/100 WBC Auto (Bld) 71.7 % Normal [facility] Comment on above: Performed By: #### R CBCDF ####[place] [address] [address], [place] [phone] Platelet mean volume (PMV) 10.0 fL Normal 9.0-12.7 [facility] Comment on above: Performed By: #### R CBCDF ####[facility], [place] [phone] Platelets 434 10*3/uL High 150-400 [facility] Comment on above: Performed By: #### R CBCDF ####[place] [address] [address], [place] [phone] WBC (Leukocytes) 13.28 10*3/uL High 3.70-11.00 [facility] Comment on above: Performed By: #### R CBCDF ####[address] [phone] Sed Rate Westergrenon 2017 Sed Rate Westergren 27 mm/hr High 0-20 [facility] Comment on above: Performed By: #### P T, PTT, BMP, HFP, LD6, WSR, SEPG, MPASRM, KLFRS ####[address] [phone] von Willebrand Diagon 2017 aPTT 26.7 s Normal 23.0-32.4 [facility] Comment on above: Result Comment: Unfr actionated [...] laboratory APTT reagent in use throughout the [facility]. Performed By: #### V SABINAPN ####[address] [phone] CBA/VWF Ratio 0.7 Normal >0.5 [facility] Comment on above: Performed By: #### V WFPN ####[address] [phone] COL/ADP Cartridge 127 CT (sec) High <118 [facility] Comment on above: Result Comment: Resu lts are reported as Closure Time (CT) in seconds. Performed By: #### V WFPN ####[address] [phone] COL/EPI Cartridge 117 CT (sec) Normal <199 [facility] Comment on above: Result Comment: Resu lts are reported as Closure Time (CT) in seconds. Performed By: #### V WFPN ####[place] [id number] [place], [place] [phone] Collagen Binding-CBA 118 % Normal 41-161 [facility] Comment on above: Result Comment: This test uses a reagent or kit labeled by the kiln drawer as research use only and it is used per kiln drawer's instructions. Its performance characteristics were determined by [facility]'s [facility] [place] in a manner consistent with CLIA requirements. This test has not been cleared by the U.S. Food and Drug Administration. Performed By: #### V WFPN ####[address] [phone] Factor VIII:C Assay 165 % Normal 50-173 [facility] Comment on above: Performed By: #### V WFPN ####[address] [phone] FVIII/VWF Ratio 1.0 Normal >0.4 [facility] Comment on above: Performed By: #### V WFPN ####[address] [phone] Interpretation(VW) (NOTE) Normal [facility] Comment on above: Result Comment: Perf [...] medication history. Performed By: #### V WFPN ####[place] [address] [address], [place] [phone] Ristocetin Aggreg Normal dose response Normal [facility] Comment on above: Performed By: #### V WFPN ####[address] [phone] Ristocetin Co-Factor 150 % High 42-146 [facility] Comment on above: Performed By: #### V WFPN ####[address] Av[address], [place] [phone] Ristocetin/VWF Ratio 0.9 Normal >0.4 [facility] Comment on above: Performed By: #### V WFPN ####[place] [address]CJeff[place], [place] [phone] von Willebrand Ag 159 % Normal 50-173 [facility] [place] Comment on above: Performed By: #### V WFPN ####[address] [place], [place] [phone] von Willebrand Mult Normal multimer amou nt and pattern. Normal [facility] Comment on above: Result Comment: Revi ewed by Joleen Shore M.D.,Ph.D ([id number])This test was developed and its performance characteristics determined by [facility]'s [facility] [place] ([facility]).It has not been cleared or approved by the FDA. -[facility] is regulated under CLIA as qualified to perform high-complexity testing.This test is used for clinical purposes. It should not be regarded as investigational or for research. Performed By: #### V WFPN ####[facility] [address] [place], [place] [phone] CNOVon 09-25-2017 CNOV Office Visit (RCISTINA) -------GLADIS MICHAEL ([id number]) 1975 [facility] Provider Department09/25/17 10:30 AM JESUS CHEATHAM During your visit today, we recorded the following information about you: Pulse Respiration Blood pressure Weight 68/minute 18/minute 139/78 108 kg Height 1.575 Rishi Cheatham MD 09/25/2017 10:54 AM [facility] Department of Cardiovascular MedicineOUTPATIENT VISIT DATE 09/25/16OUTPATIENT VISIT TYPEESTABLISHEDPRIMARY CARE PHYSICIAN:Joseph Harris, [address] [facility] [address]Pjcsv: [phone]: [phone] COMPLAINT:Patient presents with:Follow UpHISTORY OF PRESENT ILLNESS:Gladis Michael is a 41 year old female with a past cardiac history ofpalpitations, hypertensive episodes associated with flushing.05/22/2017The patient presents today as a new consult. The patient has previously beencared for by a doctor of podiatry in [place]. She has been on pindolol andlisinopril for many years. [facility] She claims that met[facility]rol[facility] made [...] had a complete workup in [facility] including a cardiac CTA, pharmacologic stress, echo and monitors. Unfortunately I do not have any of those records to review. The patient wasseen in the emergency room earlier today for epistaxis. She also was seen [place]he [place] last Friday with a complaint of dizziness. [...] kg (238 lb) SpO2 100% BMI 43.53 kg/o8Lxtayuo: Well appearing, in no acute distress.Eyes: Conjunctiva [...] for years. Patient had negative workup in [place]. Placed onpindolol and lisinopril.4. Non-rheumatic mitral regurgitation, [...] provided to the requesting physician by way [facility] or to the requesting physician via U.S. Mail.This document was generated utilizing Attila Technologiesation. I have reviewed andverified that the contents of the document are accurate with the exception ofminor grammatical, spelling and punctuation errors.CONTACT INFORMATION:Thank you for allowing us to participate in the care of this very pleasantpatient. Please free to contact us if we can be of any further assistance.Jesus Cheatham MD, [facility] MurrayMulticare Auburn Medical Centerment of Cardiovascular MedicineTwin City Hospitalrt and Vascular InstituteBlanchard Valley Health [facility], [place] [address]Gkzzze: [phone] Referring Provider: JOSEPH HARRIS [[id number]]Allergies As of Date: 09/25/2017 Noted Allergy ReactionTOPROL XL (METOPROLOL) 04/11/2016 14 - Other: See Comments Comments: heart races per patientDate Reviewed: 09/25/2017Reviewed by: Jesus Cheatham - Fully AssessedReason for Visit: Follow Up [171]Primary Visit Diagnosis:Essential hypertension [I10] Other Visit Diagnoses:Premature atrial complexes [I49.1] PVC (premature ventricular contraction) [I49.3] Obesity, Class III, BMI 40-49.9 (morbid obesity) ([facility]) [E66.01]Order(s):lisinopril (ZESTRIL, PRINIVIL) 5 mg tabletTake 1 [...] RN 09/25/2017 10:15 AM >> JEROME BYRNES [facility] Sep 25, 2017 10:15 AM Received from: External Pharmacy >> Shane Velasquez RN 09/25/2017 10:16 AM >> JEROME BYRNES [facility] Sep 25, 2017 10:16 AMProblem List As [...] by NANI CHEATHAM MD on 09/25/17 Normal [facility] PROGRESSon 09-25-2017 PROGRESS HNO ID: [id number] thor: Jesus Petersonervice: (none)Author Type: PhysicianType: Progress NotesFiled: 09/25/2017 10:54 AMNote Text:Heart and Vascular [facility] Department of Cardiovascular MedicineOUTPATIENT VISIT DATE 09/25/16OUTPATIENT VISIT TYPEESTABLDUKE HEALTHPRELIZA [facility] PHYSICIAN:AVINASH Rubin [facility] [address]Irsyn: [phone]: [phone] COMPLAINT:Patient presents with:Follow UpHISTORY OF PRESENT ILLNESS:Gladis Michael is a 41 year old female with a past cardiac history ofpalpitations, hypertensive episodes associated with flushing.05/22/2017The patient presents today as a new consult. The patient has previouslybeen cared for by a doctor of podiatry in [place]. She has been on pindolol andlisinopril for many years. She apparently did not tolerate metoprolol inthe past. She claims that metoprolol made her heart rate go into [id number]. The patient states that she has episodes off and on of a flushedfeeling followed by high blood pressure readings and dizziness. She alsofeels her heart racing. She feels this has been worse over the past 2weeks. She has had episodes like this though for many years. She had a[facility] work[facility] including a cardiac CTA,pharmacologic stress, echo and monitors. Unfortunately I do not have anyof those records to review. The patient was seen in the emergency roomearlier today for epistaxis. [place]. Her workup wasnegative. There was no evidence of any arrhythmia during her workup hereat this emergency room today. Her blood tests were within normal limits.Her troponin was normal. EKG was unremarkable. The patient admits thatshe gets very anxious. She has had problems with this for some time. [facility]. [...] kg (238 lb) SpO2 100% BMI 43.53 kg/d8Mfthbwb: Well appearing, in no acute distress.Eyes: Conjunctiva [...] for years. Patient had negative workup in [place]. Placedon pindolol and lisinopril.4. Non-rheumatic mitral regurgitation, [...] provided to the requesting physician by way [facility]car[facility] medical record or to the requesting physician via U.S. Mail.This document was generated utilizing [employer] dictation. I have reviewedand verified that the contents of the document are accurate with theexception of minor grammatical, spelling and punctuation errors.CONTACT INFORMATION:Thank you for allowing us to participate in the care of this very pleasantpatient. Please free to contact us if we can be of any furtherassistance.Jesus Cheatham MD, FACCRobert and Mary MurrayDeunm psychiatric centerment of Cardiovascular MedicineTwin City Hospitalrt and Vascular InstituteMegan Ville [address], [place] [address]Beaxji: [phone] Normal [facility] CT-CT Head or Brain w/o Cont rast IMPORTon 09-23-2017 CT-CT Head or Brain w/o Contrast IMPORT Images were obtained outside of [facility] [id number] Normal [facility] CNOVSPon 06-05-2017 CNOVSP Visit (SP) Office (HEMASA) -------GLADIS MICHAEL ([id number]) 1975 FDate Time Provider Ewedceavld42/28/17 3:15 PM ISAAC SHELTON During your visit today, we recorded the following information about you: Temperature Respiration Blood pressure Weight 98.7 degrees 18/minute 168/82 105.1 kg Height 1.6 Kassidy Shelton DO 06/07/2017 12:55 AM SignedPATIENT NAME: Gladis LocoN: [id number] PHYSICIAN: Joseph Harris DO[address] [facility] [address]YJFGKZC CARE PHYSICIAN: MASOOD Rubin PHYSICIANS:CHIEF COMPLAINT: Lymphocytosis [...] r nose and throat evaluation likely from [facility] physician . We will continue [...] for5 days straight. Went to ER 02/26. Ramsey was negative, strep negative. Flunegative. She was [...] racing heart and elevated BP.She previously saw doctor of [place]iatry in [place].She is scheduled for echo. She has valvular issues [place]. Cough, sore throat [...] plan. I answered allquestions satisfactorily..Hai Shelton D.O.Medical OncologistHermosa Beach, [place]Referring Provider: ISAAC SHELTON [[id number]]Allergies As of Date: 06/05/2017 Noted Allergy ReactionTOPROL XL (METOPROLOL) 04/11/2016 14 - Other: See Comments Comments: heart races per patientDate Reviewed: 06/05/2017Reviewed by: Donna Stahl - Fully AssessedReason for Visit: Lymphocytosis [Other] Cmt: 5 week follow upPrimary Visit Diagnosis:Lymphocytosis [D72.820] Other Visit Diagnosis:Cervical adenopathy [R59.0]Order(s):HIV 1,2 COMBO (AG/AB) [SQHIV12] Order #: [id number] FUTUREDisposition: Return in about 1 year (around 06/05/2018), or cancel ENT f/u in [place]..Follow-up and Disposition History RecordedPrescriptions as of 06/05/2017 [...] Status:Closed by ISAAC SHELTON DO on 12/30/17 [facility] HIV 12 Combo (Ag/Ab)on 06-05 HIV 12 Ag/Ab Non Reactive Normal Non Reactive [facility] Comment on above: Result Comment: (NOT E)HIV Information: [place] Rev. Code 3701.243(E):This information has been disclosed [...] or diagnoses. Performed By: #### H IV12C ####[facility] [address] [place], [place] [phone] PROGRESSon 06-05-2017 PROGRESS HNO ID: [id number] thor: Isaac Carrasco: (none)Author Type: PhysicianType: Progress NotesFiled: 06/07/2017 12:55 AMNote Text:PATIENT NAME: Gladis PatelarMRN: [id number] PHYSICIAN: AVINASH Rubin [facility] [address]CWBOGUG CARE PHYSICIAN: MASOOD Rubin PHYSICIANS:CHIEF COMPLAINT: Lymphocytosis [...] r nose and throat evaluation likely from [facility] physicianDr. HERNANDEZ. We will continue [...] for5 days straight. Went to ER 02/26. Ramsey was negative, strep negative.Flu negative. She was [...] and racing heart and elevatedBP.She previously saw doctor of podiatry in [place].She is scheduled for echo. She has valvular issues and was getting themyearly in [place] prior to moving here. Cough, sore throat [...] plan.I answered all questions satisfactorily..Hai Shelton D.O.Medical OncologistHermosa Beach, [place] Normal [facility] Remote Abs Gran + CBC (for F HC use only)on 06-05-2017 Absol Gran Count 10.28 k/uL High 1.45-7.50 [facility] Erythrocyte distribution width Auto Ratio (RBC) 13.9 % Normal 11.5-15.0 [facility] Erythrocytes (RBC) 4.91 10*6/uL Normal 3.90-5.20 [facility] Hematocrit (HCT) 39.7 % Normal 36.0-46.0 [facility] Hemoglobin mass conc (Bld) 13.2 g/dL Normal 11.5-15.5 [facility] MCH 26.9 pG Normal 26.0-34.0 [facility] MCHC mass conc (RBC) 33.2 g/dL Normal 30.5-36.0 [facility] MCV 80.9 fL Normal 80.0-100.0 [facility] Platelet mean volume (PMV) 9.5 fL Normal 9.0-12.7 [facility] Platelets 497 10*3/uL High 150-400 [facility] WBC (Leukocytes) 14.20 10*3/uL High 3.70-11.00 [facility] CNOVon 05-22-2017 CNOV Office Visit (CARDFT) -------GLADIS MICHAEL ([id number]) 1975 FDate Time Provider Vqgeftgype03/14/17 2:00 PM JESUS CHEATHAM During your visit today, we recorded the following information about you: Pulse Respiration Blood pressure Weight 69/minute 18/minute 139/77 101.6 kg Height 1.6 Rishi Cheatham MD 05/22/2017 3:15 PM [facility] and Vascular InstituteLivingston and [facility] Department of Cardiovascular MedicineOUTPATIENT VISIT DATE 05/22/17OUTPATIENT VISIT TYPENEWPRMIZELL [facility] CARE PHYSICIAN:Joseph Harris DO[address] [facility] [address]Wcjjd: [phone]: [phone] COMPLAINT:Patient presents with:PalpitationsHISTORY OF PRESENT ILLNESS:Gladis Michael is a 41 year old female with a past cardiac history ofpalpitations, hypertensive episodes associated with flushing.The patient presents today as a new consult. The patient has previously beencared for by a doctor of podiatry in [place]. She has been on pindolol andlisinopril for many years. [facility] She claims that metoprolol made [...] had a complete workup in [facility] including a cardiac CTA, pharmacologic stress, echo and monitors. Unfortunately I do not have any of those records to review. The patient wasseen in the emergency room earlier today for epistaxis. She also was seen int emergency room in [place] last Jhon with a complaint of dizziness. [...] kg (224 lb) SpO2 98% BMI 39.68 kg/d3Kyiuqve: Well appearing, in no acute distress.Eyes: Conjunctiva [...] for years. Patient had negative workup in [place]. Placed onpindolol and lisinopril.4. Non-rheumatic mitral regurgitation, [...] be of any further assistance.Jesus Cheatham MD, [facility] MurrayMulticare Auburn Medical Centerment of Cardiovascular MedicineTwin City Hospitalrt and Vascular Institute[address] [address]Hqiopo: [phone] Referring Provider: ISAAC SHELTON [[id number]]Allergies As of Date: 05/22/2017 Noted Allergy ReactionTOPROL XL (METOPROLOL) 04/11/2016 14 - Other: See Comments Comments: heart races per patientDate Reviewed: 05/22/2017Reviewed by: Jesus Cheatham - Fully AssessedReason for Visit: Palpitations [79]Primary Visit Diagnosis:Premature atrial complexes [I49.1] Other Visit Diagnoses:PVC (premature ventricular contraction) [I49.3] Palpitations [R00.2] Non-rheumatic mitral regurgitation, mild [I34.0]Order(s):ECHO [695299] Order #: [id number]: 1 FUTUREPrescriptions as of 05/22/2017 Sig: PINDOLOL [...] Status:Closed by NANI CHEATHAM MD on 05/22/17 [facility] PROGRESSon 05-22-2017 PROGRESS HNO ID: [id number] thor: Jesus EllisyService: (none)Author Type: PhysicianType: Progress NotesFiled: 05/22/2017 3:15 PMNote Text:Heart and Vascular InstituteRobert and Mary Murray Department of Cardiovascular MedicineOUTPATIENT VISIT DATE 05/22/17OUTPATIENT VISIT [facility]YPENEW[facility] PH[facility]ICIAN:Joseph Harris, DO[address] [place] [address]Kvbuz: [phone]: [phone] COMPLAINT:Patient presents with:PalpitationsHISTORY OF PRESENT ILLNESS:Gladis Michael is a 41 year old female with a past cardiac history ofpalpitations, hypertensive episodes associated with flushing.The patient presents today as a new consult. The patient has previouslybeen cared for by a doctor of podiatry in [place]. She has been on pindolol andlisinopril for many years. She apparently did not tolerate metoprolol inthe past. She claims that metoprolol made her heart rate go into [id number]. The patient states that she has episodes off and on of a flushedfeeling followed by high blood pressure readings and dizziness. She alsofeels her heart racing. She feels this has been worse over the past 2weeks. She has had episodes like this though for many years. She had acomplete workup in [facility] including a cardiac CTA,pharmacologic stress, echo and monitors. Unfortunately I do not have anyof those records to review. [facility]. [place] of [place]. Her workup wasnegative. There was no evidence of any arrhythmia during her workup hereat this emergency room today. Her blood tests were within normal limits.Her troponin was normal. EKG was unremarkable. The patient admits thatshe gets very anxious. She has had problems with this for some time. [facility] Z[facility]. [...] kg (224 lb) SpO2 98% BMI 39.68 kg/h0Pubhjdk: Well appearing, in no acute distress.Eyes: Conjunctiva [...] for years. Patient had negative workup in [place]. Placedon pindolol and lisinopril.4. Non-rheumatic mitral regurgitation, [...] physicianvia U.S. Mail.This document was generated utilizing TREL[employer]on dictation. I have reviewedand verified that the contents of the document are accurate with theexception of minor grammatical, spelling and punctuation errors.CONTACT INFORMATION:Thank you for allowing us to participate in the care of this very pleasantpatient. Please free to contact us if we can be of any furtherassistance.Jesus Cheatham MD, [facility]ITALCRharrison memorial hospitalt and Mary MurrayVeterans Health [facility] of Cardiovascular MedicineTwin City Hospitalrt and Vascular InstituteMegan Ville [address].[place], [place] [address]Zjbivg: [phone] [facility] CNOVSPon 04-28-2017 CNOVSP Visit (SP) Office ([place]) -------GLADIS MICHAEL ([id number]) 1975 FDate Time Provider Empjfrydgj08/20/17 11:15 AM ISAAC SHELTON During your visit today, we recorded the following information about you: Temperature Pulse Respiration Blood pressure 98.7 degrees 71/minute 18/minute 151/101 Weight Height 103.2 kg 1.6 Kassidy Shelton DO 05/03/2017 3:18 PM SignedPATIENT NAME: Gladis Daniels ChiparMRN: [id number] PHYSICIAN: Joseph Harris DO[address] [facility] [address]TLTLEZG CARE PHYSICIAN: MASOOD Rubin PHYSICIANS:CHIEF COMPLAINT: Lymphocytosis [...] for5 days straight. Went to ER 02/26. Ramsey was negative, strep negative. Flunegative. She was [...] I answered all questions satisfactorily..Hai Shelton D.O.Medical OncologistHermosa Beach, [place]Referring Provider: ISAAC SHELTON [[id number]]Allergies As of Date: 04/28/2017 Noted Allergy ReactionTOPROL XL (METOPROLOL) 04/11/2016 14 - Other: See Comments Comments: heart races per patientDate Reviewed: 04/28/2017Reviewed by: Josephine Moscoso - Fully AssessedReason for Visit: Lymphocytosis [Other] Cmt: 3 week follow upPrimary Visit Diagnosis:Lymphocytosis [D72.820]Order(s):CT CHEST WO IVCON [[id number]] Order #: [id number] FUTURE CT CHEST W IVCON [[id number]] Order #: [id number] FUTURE iv contrast (radiology procedure)CT Chest W [...] [address] CT NECK SOFT TISSUE W IVCON [[id number]] Order #: [id number] FUTURE [] iv contrast (radiology procedure)Inject 1 [...] by ISAAC SHELTON DO on 05/03/17 Normal [facility] PROGRESSon 04-28-2017 PROGRESS HNO ID: [id number] thor: Isaac SheltonSer: (none)Author Type: PhysicianType: Progress NotesFiled: 05/03/2017 3:18 PMNote Text:PATIENT NAME: Gladis PatelarMRN: [id number] PHYSICIAN: MICHAEL Rubin[address] [place] [id number] CARE PHYSICIAN: Joseph Harris DOOTHER PHYSICIANS:CHIEF COMPLAINT: [...] r nose and throat evaluation [facility] from [facility] physicianDr. HERNANDEZ. We will continue to [...] for5 days straight. Went to ER 02/26. Ramsey was negative, strep negative.Flu negative. She was [...] I answered all questions satisfactorily..Hai Shelton D.O.Medical OncologistMedical Center of South [facility] Abs Gran + CBC (for F HC use only)on 04-28-2017 Absol Gran Count 7.86 k/uL High 1.45-7.50 [facility] Erythrocyte distribution width Auto Ratio (RBC) 13.9 % Normal 11.5-15.0 [facility] Erythrocytes (RBC) 4.82 10*6/uL Normal 3.90-5.20 [facility] Hematocrit (HCT) 39.2 % Normal 36.0-46.0 [facility] Hemoglobin mass conc (Bld) 13.3 g/dL Normal 11.5-15.5 [facility] MCH 27.6 pG Normal 26.0-34.0 [facility] MCHC mass conc (RBC) 33.9 g/dL Normal 30.5-36.0 [facility] MCV 81.3 fL Normal 80.0-100.0 [facility] Platelet mean volume (PMV) 9.4 fL Normal 9.0-12.7 [facility] Platelets 470 10*3/uL High 150-400 [facility] WBC (Leukocytes) 11.76 10*3/uL High 3.70-11.00 [facility] CNOVon 04-10-2017 CNOV Office Visit (OTOLMN) -------GLADIS MICHAEL ([id number]) 1975 [facility] Time Provider Jtsfgoabju08/2/17 10:00 AM CANDIS HERNANDEZ OTOLMN During your visit today, we recorded the following information about you: Blood pressure Weight Height 142/85 97.5 kg 1.6 Akila Joshi Ma 04/10/2017 10:01 AM SignedTobacco Use: QuitGet Smart Contents smoking cessation packet given? N/A - Patient is a non-smoker or quit ANDgt;1year ago.Was a referral initiated?N/A Patient is a non-smokerCandis Hernandez MD 04/16/2017 1:04 PM SignedGladis [id number] 2, 2017Oto-HNS ConsultationReferring Physician: Dr. Isaac Winston [...] further evaluated viaultrasound if clinically indicated.LabsCBCRecent Labs [id number] 13.32*HB 13.4HCT 40.2PLT 470*BMPInvalid input(s): PHOSCOAGsPHYSICAL EXAM:Vitals - BP 142/85 (BP Site: Left Arm, BP Position: Sitting, BP Cuff Size:Extra Large Adult) Ht 160 cm (5' 3ANDquot;) Wt 97.5 kg (215 lb) SpO2 98% BMI 38.09 kg/h0Eyczbjgenmogif - General Appearance: well developed, well nourished, [...] 1 Each; Refill: 0SIGNATURE: Candis Hernandez, MDPAGER: [id number] of SERVICE: April 16, 2017TIME of SERVICE: [...] disease) [K21.9]Order(s):POLYSOMNOGR AM (PSG)/HOME SLEEP TEST (HST) [[id number]] Order #: [id number] FUTURE omeprazole (PRILOSEC) 20 mg capsuleTake 1 capsule by mouth once daily for 30 days.Disp: 30 capsuleRfl: 0 CT NECK SOFT TISSUE W IVCON [[id number]] Order #: [id number] FUTURE [] iv contrast (radiology procedure)Inject 1 [...] 10, 2017 10:01 AM Status: SignedTobacco Use: QuitGet Smart Contents smoking cessation packet given? N/A - Patient [...] guidelines link.Follow-up and Disposition History RecordedEncounter Number: [id number] Status:Closed by CANDIS HERNANDEZ MD on 04/16/17 Normal [facility] PROGRESSon 04-10-2017 PROGRESS HNO ID: [id number] thor: Candis Salinas: (none)Author Type: PhysicianType: Progress NotesFiled: 04/16/2017 1:04 PMNote Text:Gladis [id number] 2016Oto-HNS ConsultationReferring Physician: Dr. Isaac Winston for [...] further evaluated viaultrasound if clinically indicated.LabsCBCRecent Labs 04/07/628410HMH 13.32*HB 13.4HCT 40.2PLT 470*BMPInvalid input(s): PHOSCOAGsPHYSICAL EXAM:Vitals - BP 142/85 (BP Site: Left Arm, BP Position: Sitting, BP Cuff Size:Extra Large Adult) Ht 160 cm (5' 3 ) Wt 97.5 kg (215 lb) SpO2 98% BMI 38.09 kg/l6Kmeusmnzkicjkk - General Appearance: well developed, well nourished, [...] Dispense: 1Each; Refill: 0SIGNATURE: Candis Hernandez, MDPAGER: [id number] of SERVICE: April 16, 2017TIME of SERVICE: 1:01 PM Normal [facility] CNOVSPon 04-07-2017 CNOVSP Visit (SP) Office ([place]) -------GLADIS MICHAEL ([id number]) 1975 [facility] Time Provider Rfoqgxfauv25/30/17 1:45 PM ISAAC SHELTON During your visit today, we recorded the following information about you: Temperature Pulse Respiration Blood pressure 98.5 degrees 75/minute 18/minute 156/106 Weight Height 102.2 kg 1.6 Kassidy Shelton DO 04/11/2017 10:43 AM SignedPATIENT NAME: Gladis ElderRN: [id number] PHYSICIAN: Joseph Harris DO[address] [place] [id number] CARE PHYSICIAN: MASOOD Rubin PHYSICIANS:CHIEF COMPLAINT: Lymphocytosis [...] on 04/07/17. Return in about 2 weeks (oplwvg6104/21/2017), or f/u 2 wks.. HPI: This is [...] for5 days straight. Went to ER 02/26. Ramsey was negative, strep negative. Flunegative. She was [...] I answered all questions satisfactorily..Hai Shelton D.O.Medical OncologistHermosa Beach, [place]Referring Provider: ISAAC SHELTON [[id number]]Allergies As of Date: 04/07/2017 Noted Allergy ReactionTOPROL [...] by ISAAC SHELTON DO on 04/11/17 Normal [facility] LDon 04-07-2017 LD 212 U/L Normal 135-214 [facility] Comment on above: Performed By: #### L D6 ####[facility] [address] [place], [place] [phone] PROGRESSon 04-07-2017 PROGRESS HNO ID: [id number] thor: Isaac Carrasco: (none)Author Type: PhysicianType: Progress NotesFiled: 04/11/2017 10:43 AMNote Text:PATIENT NAME: Gladis ElderRN: [id number] PHYSICIAN: MICHAEL Rubin[address] [place] [id number] CARE PHYSICIAN: MASOOD Rubin PHYSICIANS:CHIEF COMPLAINT: Lymphocytosis [...] for5 days straight. Went to ER 02/26. Ramsey was negative, strep negative.Flu negative. She was [...] Used- Alcohol use NoLABS:RADIOLOGY/OTHER STUDIES:COUNSELING:I discussed with Glaids the natural history, treated course, andprognosis of Lymphocytosis (primary encounter diagnosis); my impressionas well as the rationale, logistics, risks, benefits, and alternatives tothe management options noted above; and my recommendations listed below.The patient Gladis Michael verbalized understanding and agreed withthese recommendations and plan. I answered all questions satisfactorily..Hai Shelton D.O.Medical OncologistYakima Valley Memorial Hospital Cancer [facility] HospitalOon 03-27-2017 CNCO Letter TextNorth [address] [address]Fmrrk: [phone]: [facility] [place], [place] [address]Krngk: [phone]: [facility] [place], [place] [address]Xbuqd: [phone]: Toll Free: [phone] [email or web address] Saad Arredondo M.D., Nick SchmidtD.Luiz Berrios M.D.Isaac Shelton D.O..Audrey Jang M.D. FACROSaju A. Rajan, M.D.March 27, 2017Gladis Michael[address] [facility] [address]Wxue Ms. Michael,You missed your scheduled appointment on 03/27/17. Please call our officeto reschedule. If you need to cancel any future appointments, please call togive us 24 hour notice so that we can offer your appointment to anotherpatient.Sincerely,Tulio Au M.D. Normal [facility] CT ABD/PEL W IVCONon 03-19- 017 CT ABD/PEL W IVCON * * *Final Report* * *DATE OF EXAM: Mar 19 2017 9:29AM [facility] 0530 - CT ABD/PEL W IVCON / [...] any questions regarding this interpretation, please call [phone].If you are unable to reach us at the number above,please feel free to contact [facility] eRadiology at [phone]_ IDCSIACN Normal [facility] CT CHEST W IVCONon 7 CT CHEST W IVCON * * *Final Report* * *DATE OF EXAM: Mar 19 2017 9:29AM [facility] 0539 - CT CHEST W IVCON / [...] any questions regarding this interpretation, please call [phone].If you are unable to reach us at the number above,please feel free to contact [facility] eRadiology at [phone]_ IDCSIACN Normal [facility] CT NECK SOFT TISSUE W IVCONo n 03-19-2017 CT NECK SOFT TISSUE W IVCON * * *Final Report* * *DATE OF EXAM: Mar 19 2017 9:28AM [facility] 0013 - CT NECK SOFT TISSUE W [...] parapharyngeal space: Fat and muscle planes are normal.Gas Analyst space: Visualized mandible, muscles of mastication, pterygopalatine [...] any questions regarding this interpretation, please call [phone].If you are unable to reach us at the number above,please feel free to contact [facility] eRadiology at [phone]_ IDCSIACN Normal [facility] PROGRESSon 03-19-2017 PROGRESS HNO ID: [id number] thor: Sheri Banegas CnmtService: (none)Author Type: (none)Type: Progress NotesFiled: 03/19/2017 9:32 AMNote Text: RADIOLOGY SERVICE PROGRESS NOTESERVICE DATE: 03/19/2017SERVICE TIME: 8:33 AMPATIENT IDENTITY VERIFICATION COMPLETED USING TWO (2) METHODS: Patientconfirmed name and Date of verbally.PATIENT GENDER DATA: .femaleALLERGIES: Reviewed and unchangedMEDICATIONS REVIEWED: Not applicablePATIENT RELEVANT IMPLANT DATA REVIEWED: Not ApplicableCREATININE:Creati nineDate Value Ref Range Nkqeed8403/14/2017 0.59 0.58 - 0.96 mg/dL Final04/11/2016 0.56 (L) 0.58 - 0.96 mg/dL Final eGFR-All Other RacesDate Value Ref Range Qusrst7803/14/2017 >60 . FinalComment:eGFR (Estimated GFR) Units of [...] actual GFR. eGFR- AmericanDate Value Ref Range Piixpo2303/14/2017 >60 Final Reference range (age 0-9 years) [...] TIME: 0907PATIENT DISCHARGED TO: Ambulatory patient, left DE department area.A Diagnostic radioactive procedure has taken place, with no furtherprecautions necessary other than routine body substance precautions. Moreinformation regarding radiation safety can be found using this link:[email or web address] [email or web address] ion/files/Rad%20Protection% 20-%20Diagnostic%20Nuclear% 20Medicine%20Procedures.pdf SIGNATURE: Sheri Banegas [facility] PATIENT NAME: Gladis WaltersATE: March 19, 2017 : 8:33 AM PAGER/CONTACT #: Normal [facility] Comp Metabolic Panelon 03-14 Alanine aminotransferase (ALT) 25 U/L Normal 7-38 [facility] Comment on above: Performed By: #### R ETIC, HREMOP, CMP, TSH, KLFRS, MPASRM, SEPG ####[facility] AveClevelAaron Ville [phone] Albumin 4.5 g/dL Normal 3.9-4.9 [facility] Comment on above: Performed By: #### R ETIC, HREMOP, CMP, TSH, KLFRS, MPASRM, SEPG ####[facility] AveCRobert Ville [phone] Alkaline phosphatase (ALP) 60 U/L Normal 32-117 [facility] Comment on above: Performed By: #### R ETIC, HREMOP, CMP, TSH, KLFRS, MPASRM, SEPG ####[place] [address] [address]CWhitney [place] [phone] Anion gap 14 mmol/L Normal 9-18 [facility] Comment on above: Performed By: #### R ETIC, HREMOP, CMP, TSH, KLFRS, MPASRM, SEPG ####[facility] AveClevelAaron Ville [phone] Aspartate aminotransferase (AST) 18 U/L Normal 13-35 [facility] Comment on above: Performed By: #### R ETIC, HREMOP, CMP, TSH, KLFRS, MPASRM, SEPG ####[facility] AveClevelAaron Ville [phone] Bilirubin (total) 0.7 mg/dL Normal 0.2-1.3 [facility] Comment on above: Performed By: #### R ETIC, HREMOP, CMP, TSH, KLFRS, MPASRM, SEPG ####[facility]CRobert [place] [phone] Calcium 9.5 mg/dL Normal 8.5-10.2 [facility] Comment on above: Performed By: #### R ETIC, HREMOP, CMP, TSH, KLFRS, MPASRM, SEPG ####[facility]CRobert [place] [phone] Chloride 97 mmol/L Normal 97-105 [facility] Comment on above: Performed By: #### R ETIC, HREMOP, CMP, TSH, KLFRS, MPASRM, SEPG ####[place] [address] [address]CRober[address] [place] [phone] CO2 25 mmol/L Normal 22-30 [facility] Comment on above: Performed By: #### R ETIC, HREMOP, CMP, TSH, KLFRS, MPASRM, SEPG ####[place] [address] [address]CRober[address] [place] [phone] Creatinine 0.59 mg/dL Normal 0.58-0.96 [facility] Comment on above: Performed By: #### R ETIC, HREMOP, CMP, TSH, KLFRS, MPASRM, SEPG ####[place] [address] [address] [place] [phone] eGFR (non-black) mL/min/{1.73_m2} Normal [facility] Comment on above: Result Comment: [...] ETIC, HREMOP, CMP, TSH, KLFRS, MPASRM, SEPG ####[place] [address]CJeff[address], [place] [phone] Glucose mass conc 126 mg/dL High 74-99 [facility] Comment on above: Result Comment: The [place] Diabetes Association (ADA) provides guidance for cutoff [...] Standards of Medical Care in Diabetes 2016, [place] [employer] Association. Diabetes Care. 2016.39(Suppl 1). Performed By: #### R ETIC, HREMOP, CMP, TSH, KLFRS, MPASRM, SEPG ####[facility]CRobert [place] [phone] Potassium molar conc 4.3 mmol/L Normal 3.7-5.1 [facility] Comment on above: Performed By: #### R ETIC, HREMOP, CMP, TSH, KLFRS, MPASRM, SEPG ####[facility]CRober[address] [place] [phone] Protein 8.4 g/dL High 6.3-8.0 [facility] Comment on above: Performed By: #### R ETIC, HREMOP, CMP, TSH, KLFRS, MPASRM, SEPG ####[facility]CR[address] [place] [phone] Sodium 136 mmol/L Normal 136-144 [facility] Comment on above: Performed By: #### R ETIC, HREMOP, CMP, TSH, KLFRS, MPASRM, SEPG ####[facility]CRobert [place] [phone] Urea nitrogen 10 mg/dL Normal 7-21 [facility] Comment on above: Performed By: #### R ETIC, HREMOP, CMP, TSH, KLFRS, MPASRM, SEPG ####[facility]CRober[address] [place] [phone] Hepatitis Remote Panelon BSA (Body Surface Area) Negative Normal Negative [facility] Comment on above: Performed By: #### R ETIC, HREMOP, CMP, TSH, KLFRS, MPASRM, SEPG ####[facility] AveClevelTumtum, [place] [phone] Hep B Core Ab,Total Negative Normal Negative [facility] Comment on above: Performed By: #### R ETIC, HREMOP, CMP, TSH, KLFRS, MPASRM, SEPG ####[facility]CJeff[address], [place] [phone] Hepatitis C Ab IA Negative Normal Negative [facility] Comment on above: Performed By: #### R ETIC, HREMOP, CMP, TSH, KLFRS, MPASRM, SEPG ####[facility]CRobert [place] [phone] HepB Surface Ab,Qual Negative Normal Negative [facility] Comment on above: Result Comment: NEGA TIVE Performed By: #### R ETIC, HREMOP, CMP, TSH, KLFRS, MPASRM, SEPG ####[facility]CRobert [place] [phone] [place]/Cope,Free,Seron 2016 K/L Ratio, Serum 1.99 High 0.26-1.65 [facility] Comment on above: Performed By: #### R ETIC, HREMOP, CMP, TSH, KLFRS, MPASRM, SEPG ####[facility] AveClevelTumtum, [place] [phone] [place], Free, Serum 32.8 mg/L High 3.30-19.40 [facility] Comment on above: Result Comment: Rare ly, increased serum free light chains values may not be detected due to antigen excess phenomenon. Results should always be correlated with other laboratory results and clinical findings. Performed By: #### R ETIC, HREMOP, CMP, TSH, KLFRS, MPASRM, SEPG ####[facility] AveClevelAaron Ville [phone] Lambda, Free, Serum 16.5 mg/L Normal 5.7-26.3 [facility] Comment on above: Result Comment: Rare ly, increased serum free light chains values may not be detected due to antigen excess phenomenon. Results should always be correlated with other laboratory results and clinical findings. Performed By: #### R ETIC, HREMOP, CMP, TSH, KLFRS, MPASRM, SEPG ####[facility]CRobert [place] [phone] Monoclonl Protein,Blon 03-14 MPA Parminder/Milner Ratio 2.08 Normal 1-3 [facility] Comment on above: Performed By: #### R ETIC, HREMOP, CMP, TSH, KLFRS, MPASRM, SEPG ####[facility] AveClevelAaron [place]ille [phone] MPA Result No M protein is identified. Normal No M protein is identified. [facility] Comment on above: Performed By: #### R ETIC, HREMOP, CMP, TSH, KLFRS, MPASRM, SEPG ####[facility]ClevelAaron [place]ille [phone] MPA Serum IgA 173 mg/dL Normal 78-391 [facility] Comment on above: Performed By: #### R ETIC, HREMOP, CMP, TSH, KLFRS, MPASRM, SEPG ####[facility]ClevelAaron [place] [phone] MPA Serum IgG 1650 mg/dL High 717-1411 [facility] Comment on above: Performed By: #### R ETIC, HREMOP, CMP, TSH, KLFRS, MPASRM, SEPG ####[facility] AveClevelandAndrew [place] [phone] MPA Serum IgM 186 mg/dL Normal 53-334 [facility] Comment on above: Performed By: #### R ETIC, HREMOP, CMP, TSH, KLFRS, MPASRM, SEPG ####[facility] [address] AveClevelandOdessa, [place] [phone] Serum [place] 1540 mg/dL High 534-1267 [facility] Comment on above: Performed By: #### R ETIC, HREMOP, CMP, TSH, KLFRS, MPASRM, SEPG ####[facility] AveClevelTumtum, [place] [phone] Serum Lambda 740 mg/dL High 253-653 [facility] Comment on above: Performed By: #### R ETIC, HREMOP, CMP, TSH, KLFRS, MPASRM, SEPG ####[facility] AveClevelTumtum, [place] [phone] Staff Review Reviewed by Delores Means [place] ([id number]) Normal [facility] Comment on above: Performed By: #### R ETIC, HREMOP, CMP, TSH, KLFRS, MPASRM, SEPG ####[facility]CJefferson, [place] [phone] PB LG LEUK MARKERSon 017 PB LG LEUK MARKERS Account Credited Normal [facility] Comment on above: Result Comment: BIPIN NOE PER STAFF REVIEW. FE [id number] available in [facility] under the Surgical Pathology Test listed in the Laboratory Tab. Performed By: #### L D6 ####[facility]CJeff[place], [place] [phone] WBC (Leukocytes) 13.38 10*3/uL High 3.70-11.00 [facility] Comment on above: Performed By: #### L D6 ####[facility]CJeff[place], [place] [phone] Protein Electrophor.on 03-14 Albumin 3.76 g/dL Normal 3.37-4.23 [facility] Comment on above: Performed By: #### L D6 ####[place] [phone] Alpha 1 Globulin 0.19 gm/dL Normal 0.18-0.31 [facility] Comment on above: Performed By: #### L D6 ####[place] [phone] Alpha 2 Globulin 0.90 gm/dL Normal 0.52-0.97 [facility] Comment on above: Performed By: #### L D6 ####[place] [phone] Beta Globulin 1.15 gm/dL Normal 0.84-1.36 [facility] Comment on above: Performed By: #### L D6 ####[place] [phone] Gamma Globulin 1.80 gm/dL High 0.70-1.44 [facility] Comment on above: Performed By: #### L D6 ####[place] [phone] Interpretation SEE COMMENT Normal [facility] Comment on above: Result Comment: An a typical region of restricted mobility is identified on protein electrophoresis.The atypical region did not stain on accompanying immunofixation and therefore is unlikely to be a monoclonal immunoglobulin. Performed By: #### L D6 ####[place] [phone] M Protein Location N/A Normal [facility] Comment on above: Performed By: #### L D6 ####[place] [phone] M Ja Concentratn 0.00 gm/dL Normal 0.00 [facility] Comment on above: Performed By: #### L D6 ####[place] [phone] SPE Staff Review Reviewed by Delores Means [place] ([id number]) Normal [facility] Comment on above: Performed By: #### L D6 ####[facility] [place], [place] [phone] Total Protein, SPE 7.8 g/dL Normal 6.0-8.4 [facility] Comment on above: Performed By: #### L D6 ####[facility] [address] [place], [place] [phone] Remote CBCDIF (for [facility] use o nly)on 03-14-2017 Abs Baso 0.14 k/uL High 0.00-0.10 [facility] Abs Ramsey 0.66 k/uL Normal 0.00-0.86 [facility] Abs Neut 10.25 k/uL High 1.45-7.50 [facility] Basophils/100 WBC Auto (Bld) 1.1 % Normal [facility] Eosinophils 0.08 10*3/uL Normal 0.00-0.45 [facility] Eosinophils/100 leukocytes 0.6 % Normal [facility] Erythrocyte distribution width Auto Ratio (RBC) 14.0 % Normal 11.5-15.0 [facility] Erythrocytes (RBC) 5.12 10*6/uL Normal 3.90-5.20 [facility] Hematocrit (HCT) 42.5 % Normal 36.0-46.0 [facility] Hemoglobin mass conc (Bld) 14.1 g/dL Normal 11.5-15.5 [facility] Lymphocytes 1.98 10*3/uL Normal 1.00-4.00 [facility] Lymphocytes/100 leukocytes 15.1 % Normal [facility] MCH 27.5 pG Normal 26.0-34.0 [facility] MCHC mass conc (RBC) 33.2 g/dL Normal 30.5-36.0 [facility] MCV 83.0 fL Normal 80.0-100.0 [facility] Monocytes/100 leukocytes 5.0 % Normal [facility] Neutrophils/100 WBC Auto (Bld) 78.2 % Normal [facility] Platelet mean volume (PMV) 9.6 fL Normal 9.0-12.7 [facility] Platelets 609 10*3/uL High 150-400 [facility] WBC (Leukocytes) 13.11 10*3/uL High 3.70-11.00 [facility] Reticulocyteon 03-14-2017 Abs Retic 0.073 M/uL Normal 0.0180-0.10 00 [facility] Comment on above: Performed By: #### R ETIC, HREMOP, CMP, TSH, KLFRS, MPASRM, SEPG ####[facility] [address] AveCJeff[address], [place] [phone] Retic% 1.4 % Normal 0.4-2.0 [facility] Comment on above: Performed By: #### R ETIC, HREMOP, CMP, TSH, KLFRS, MPASRM, SEPG ####[facility] [address] AveCJeff[address], [place] [phone] TSHon 03-14-2017 Thyroid stimulating hormone (TSH) 0.537 uU/mL Normal 0.400-5.500 [facility] Comment on above: Result Comment: If t he patient is , TSH reference range varies by gestational period:First Trimester 0.100-2.500 uU/mLSecond Trimester 0.200-3.000 uU/mLThird Trimester 0.300-3.000 uU/mLReferences: 1. Sutton L, Delfina M, Anders EK, et al. Management of Thyroid Dysfunction during and : An Endocrine Society Clinical Practice Guideline. J Clin Endocrinol Metab, 2012:97:2349-8627. 2. Conor ROSAS. Overview of thyroid disease in . UpToDate. 2016. Accessed on November 24, 2015. Performed By: #### R ETIC, HREMOP, CMP, TSH, KLFRS, MPASRM, SEPG ####[facility] [address] AveCJefferson, [place] [phone] CNOVSPon 03-13-2017 CNOVSP Visit (SP) Office ([place]) -------GLADIS MICHAEL ([id number]) 1975 FDate Time Provider Tbqyguymsg39/5/17 10:00 AM ISAAC SHELTON During your visit today, we recorded the following information about you: Temperature Pulse Respiration Blood pressure 99 degrees 96/minute 18/minute 143/93 Weight Height 103.5 kg 1.6 Kassidy Shelton DO 03/14/2017 2:41 PM SignedPATIENT NAME: Gladis Daniels JerrodRN: [id number] PHYSICIAN: Joseph Harris DO[address] [facility] [id number] CARE PHYSICIAN: MASOOD Rubin PHYSICIANS:CHIEF COMPLAINT: Lymphocytosis [...] W/INTERP-CBC + DIFF (FOR REMOTE [facility] USE)-KAPPA/COPE,FREE,SER-MO NOCLONAL PROT BLD W/INTERP-HEP REMOTE PANEL [...] three weeks now.Had few ER visits at [place] last year for LUQ pain and had [...] for5 days straight. Went to ER 02/26. Ramsey was negative, strep negative. Flunegative. She was [...] I answered all questions satisfactorily..Hai Shelton D.O.Medical OncologistHermosa Beach, [place]Referring Provider: ISAAC SHELTON [[id number]]Allergies As of Date: 03/13/2017 Noted Allergy ReactionTOPROL XL (METOPROLOL) 04/11/2016 14 - Other: See Comments Comments: heart races per patientDate Reviewed: 03/13/2017Reviewed by: Merna Gudino - Fully AssessedReason for Visit: Lymphocytosis [Other] Cmt: follow upPrimary Visit Diagnosis:Lymphocytosis [D72.820]Order(s):CT ABD/PEL W IVCON [[id number]] Order #: [id number] FUTURE CT CHEST W IVCON [[id number]] Order #: [id number] FUTURE iv contrast (radiology procedure)CT Chest ABD/PEL-Inject, [...] 0 CT NECK SOFT TISSUE W IVCON [[id number]] Order #: [id number] FUTURE [] iv contrast (radiology procedure)Inject 1 [...] GRADE LEUK MARKERS FC [SQPBLGLY] Order #: [id number] FUTURE STAFF REVIEW WITH CBC AND DIFF [SQSTREV] Order #: [id number]. #:[id number] COMP METABOLIC PANEL [SQCMP] Order #: [id number] FUTURE TSH BLD [SQTSH] Order #: [id number] FUTURE RETIC COUNT [SQRETIC] Order #: [id number] FUTURE PROTEIN ELECTROPHORESIS W/INTERP [SQSEPG] Order #: [id number] FUTURE CBC + DIFF (FOR REMOTE [facility] USE) [SQRCBCDF] Order #: [id number] FUTURE KAPPA/COPE,FREE,SER [SQKLFRS] Order #: [id number] FUTURE MONOCLONAL PROT BLD W/INTERP [SQMPASRM] Order #: [id number] FUTURE HEP REMOTE PANEL BL [SQHREMOP] Order #: [id number] FUTUREPrescriptions as of 03/13/2017 Sig: PINDOLOL 5 [...] by ISAAC SHELTON DO on 03/14/17 Normal [facility] LDon 03-13-2017 LD 164 U/L Normal 135-214 [facility] Comment on above: Performed By: #### L D6 ####[facility] [address] [place], [place] [phone] PROGRESSon 03-13-2017 PROGRESS HNO ID: [id number] thor: Isaac SheltonSerkaitline: (none)Author Type: PhysicianType: Progress NotesFiled: 03/14/2017 2:41 PMNote Text:PATIENT NAME: Gladis PatelarMRN: [id number] PHYSICIAN: Joseph Harris DO[address] [place] [id number] CARE PHYSICIAN: Joseph Harris DOOTHER PHYSICIANS:CHIEF COMPLAINT: [...] W/INTERP-CBC + DIFF (FOR REMOTE [facility] USE)-KAPPA/COPE,FREE,SER-MO NOCLONAL PROT BLD W/INTERP-HEP REMOTE PANEL [...] three weeks now.Had few ER visits at [place] last year for LUQ pain and had [...] for5 days straight. Went to ER 02/26. Ramsey was negative, strep negative.Flu negative. She was [...] I answered all questions satisfactorily..Hai Shelton D.O.Medical OncologistHermosa [place], [place] Normal [facility] Remote Abs Gran + CBC (for F HC use only)on 03-13-2017 Absol Gran Count 10.95 k/uL High 1.45-7.50 [facility] Erythrocyte distribution width Auto Ratio (RBC) 14.0 % Normal 11.5-15.0 [facility] Erythrocytes (RBC) 5.04 10*6/uL Normal 3.90-5.20 [facility] Hematocrit (HCT) 41.8 % Normal 36.0-46.0 [facility] Hemoglobin mass conc (Bld) 14.0 g/dL Normal 11.5-15.5 [facility] MCH 27.8 pG Normal 26.0-34.0 [facility] MCHC mass conc (RBC) 33.5 g/dL Normal 30.5-36.0 [facility] MCV 82.9 fL Normal 80.0-100.0 [facility] Platelet mean volume (PMV) 9.3 fL Normal 9.0-12.7 [facility] Platelets 592 10*3/uL High 150-400 [facility] WBC (Leukocytes) 14.22 10*3/uL High 3.70-11.00 [facility] Staff Rev w CBCDIFon 017 Abs Baso 0.20 k/uL High <0.11 [facility] Comment on above: Performed By: #### S PUMA ####[facility]CJeff[address], [place] [phone] Abs Ramsey 0.76 k/uL Normal <0.87 [facility] Comment on above: Performed By: #### S PUMA ####[facility] AveCRobert [place] [phone] Abs Neut 11.19 k/uL High 1.45-7.50 [facility] Comment on above: Performed By: #### S PUMA ####[facility]CRobert [place] [phone] Basophils/100 WBC Auto (Bld) 1.4 % Normal [facility] Comment on above: Performed By: #### S PUMA ####[place] [address] [address]CRober[address] [phone] Diff Comments SEE COMMENT Normal [facility] Comment on above: Result Comment: See Staff Review Performed By: #### S PUMA ####[place] [address] [address]CRober[address] [place] [phone] Eosinophils 0.09 10*3/uL Normal <0.46 [facility] Comment on above: Performed By: #### S PUMA ####[place] [address] [address] [phone] Eosinophils/100 leukocytes 0.6 % Normal [facility] Comment on above: Performed By: #### S PUMA ####[place] [id number]CRobert [place] [phone] Erythrocyte distribution width Auto Ratio (RBC) 13.6 % Normal 11.5-15.0 [facility] Comment on above: Performed By: #### S PUMA ####[place] [address] AveCRobert [place]ille [phone] Erythrocytes (RBC) 5.19 10*6/uL Normal 3.90-5.20 [facility] Comment on above: Performed By: #### S PUMA ####[address]aur[address] V[place] [phone] Hematocrit (HCT) 45.0 % Normal 36.0-46.0 [facility] Comment on above: Performed By: #### S PUMA ####[place] [phone] Hemoglobin mass conc (Bld) 14.1 g/dL Normal 11.5-15.5 [facility] Comment on above: Performed By: #### S PUMA ####[place] [phone] Lymphocytes 2.42 10*3/uL Normal 1.00-4.00 [facility] Comment on above: Performed By: #### S PUMA ####[place] [phone] Lymphocytes/100 leukocytes 16.5 % Normal [facility] Comment on above: Performed By: #### S PUMA ####[place] [phone] MCH 27.2 pG Normal 26.0-34.0 [facility] Comment on above: Performed By: #### S PUMA ####[place] [phone] MCHC mass conc (RBC) 31.3 g/dL Normal 30.5-36.0 [facility] Comment on above: Performed By: #### S PUMA ####[place] [phone] MCV 86.7 fL Normal 80.0-100.0 [facility] Comment on above: Performed By: #### S PUMA ####[place] [phone] Monocytes/100 leukocytes 5.2 % Normal [facility] Comment on above: Performed By: #### S PUMA ####[place] [address]Jeff[address], [place] [phone] Neutrophils/100 WBC Auto (Bld) 76.3 % Normal [facility] Comment on above: Performed By: #### S PUMA ####[place] [address], [place] [phone] Pathologist (cervix/vaginal) Reviewed by Karon Levin DO ([id number]) Normal [facility] Comment on above: Performed By: #### S PUMA ####[address] [phone] Platelet mean volume (PMV) 10.0 fL Normal 9.0-12.7 [facility] Comment on above: Performed By: #### S PUMA ####[place] [address] [place] [phone] Platelets 622 10*3/uL High 150-400 [facility] Comment on above: Performed By: #### S PUMA ####[place] [phone] Red Cell Morph SEE COMMENT Normal [facility] Comment on above: Result Comment: Unre markable Performed By: #### S PUMA ####[place] [phone] Staff Review SEE COMMENT Normal [facility] Comment on above: Result Comment: Neut rophilic Leukocytosis Without Left ShiftThrombocytosis Performed By: #### S PUMA ####[address] [phone] WBC (Leukocytes) 14.66 10*3/uL High 3.70-11.00 [facility] Comment on above: Performed By: #### S PUMA ####[place] [address] [place], [place] [phone] [facility] Visit (SP) Office ([place]) -------GLADIS MICHAEL ([id number]) 1975 FDate Time Provider Department02/06/17 11:15 AM ISAAC SHELTON During your visit today, we recorded the following information about you: Temperature Pulse Respiration Blood pressure 98.6 degrees 66/minute 16/minute 161/102 Weight Height 108.6 kg 1.6 Kassidy Shelton DO 02/07/2017 12:59 AM SignedPATIENT NAME: Gladis ElderRN: [id number] PHYSICIAN: MICHAEL Rubin[address] [place] [id number] CARE PHYSICIAN: MASOOD Rubin PHYSICIANS:CHIEF COMPLAINT: Lymphocytosis [...] three weeks now.Had few ER visits at [place] last year for LUQ pain and had [...] I answered all questions satisfactorily..Hai Shelton D.O.Medical OncologistHermosa Beach, [place]Referring Provider: ISAAC SHELTON [[id number]]Allergies As of Date: 02/06/2017 Noted Allergy ReactionTOPROL XL (METOPROLOL) 04/11/2016 14 - Other: See Comments Comments: heart races per patientDate Reviewed: 02/06/2017Reviewed by: Richard Leon) Luba - Fully AssessedReason for Visit: Lymphocytosis [Other] Cmt: 9 month follow upReason For Visit History RecordedPrimary Visit Diagnosis:Lymphocytosis [D72.820]Order(s):JAK2 V617F MUTATION [SQJAK2] Order #: [id number] FUTUREDisposition: Return in about 6 months (around [...] by ISAAC SHELTON DO on 02/07/17 Normal [facility] JAK2 V617F Mutationon 2016 JAK2 V617F Interp Result: JAK2 V617F M utation Not Detected Normal [facility] Comment on above: Result Comment: Inte rpretation: The JAK2 V617F Mutation was not detected. The V617F point mutation has been reported in a high percentage of cases of polycythemia vera, approximately half of the cases of essential thrombocythemia and chronic idiopathic myelofibrosis, and in a smaller proportion of other myeloid disorders.(NOTE)Methodology:Following DNA extraction and library construction utilizing [employer] Cancer Hotspot Panel v.1 ([employer], [place]), DNA sequencing of gene mutation hotspot regions was performed onthe MiSeq instrument ([employer], [place], [place]). APX software([employer], [place], [place]) was used to analyze FASTQ files [...] was developed and its performance characteristicsdetermined by [facility]'s Blayne Barrera [facility] Pathology andLaboratory Medicine [place] ([facility]). It has not been cleared orapproved by the FDA. RT-PLMI is regulated under CLIA as qualified toperform high-complexity testing. This test is used for clinicalpurposes. It should not be regarded as investigational or forresearch.References:Gracy EDWARDS, Socrates Squires, Rene R, Roberto Carlos J, Borjose MJ, Kesha Mccullough MM,et al. The 2016 revision to the World Health Organization (WHO)classification of myeloid neoplasms and acute leukemia. Lahtj9583;127: 2391-405.Magdalene Squires, Jonah R, Adrian JW. Myeloproliferative neoplasms:contemporary diagnosis using histology and genetics. Funmi Rev ClinOncol 2009;6:627-37. Performed By: #### L D6, JAK2 ####[address] [phone] JAK2 V617F Spec Type Peripheral Blood Normal [facility] Comment on above: Performed By: #### L D6, JAK2 ####[address] [phone] Molecular Path Rev Reviewed by David Vo M.D., Ph.D ([id number]) Normal [facility] Comment on above: Performed By: #### L D6, JAK2 ####[address] [phone] LDon 02-06-2017 LD 186 U/L Normal 135-214 [facility] Comment on above: Performed By: #### L D6, JAK2 ####[address] [phone] PROGRESSon 02-06-2017 PROGRESS HNO ID: [id number] thor: Isaac Carrasco: (none)Author Type: PhysicianType: Progress NotesFiled: 02/07/2017 12:59 AMNote Text:PATIENT NAME: Gladis DamianjavierarMRN: [id number] PHYSICIAN: AVINASH Rubin [facility] [id number] CARE PHYSICIAN: MASOOD Rubin PHYSICIANS:CHIEF COMPLAINT: Lymphocytosis [...] three weeks now.Had few ER visits at [place] last year for LUQ pain and had [...] above; and my recommendations listed below.The patient Galdis Michael verbalized understanding and agreed withthese recommendations and plan. I answered all questions satisfactorily..Hai Shelton D.O.Medical OncologistYakima Valley Memorial [facility] Cancer [place], [place] Normal [facility] Remote Abs Gran + CBC (for F HC use only)on 02-06-2017 Absol Gran Count 10.53 k/uL High 1.45-7.50 [facility] Erythrocyte distribution width Auto Ratio (RBC) 13.8 % Normal 11.5-15.0 [facility] Erythrocytes (RBC) 4.88 10*6/uL Normal 3.90-5.20 [facility] Hematocrit (HCT) 40.8 % Normal 36.0-46.0 [facility] Hemoglobin mass conc (Bld) 13.6 g/dL Normal 11.5-15.5 [facility] MCH 27.9 pG Normal 26.0-34.0 [facility] MCHC mass conc (RBC) 33.3 g/dL Normal 30.5-36.0 [facility] MCV 83.6 fL Normal 80.0-100.0 [facility] Platelet mean volume (PMV) 9.6 fL Normal 9.0-12.7 [facility] Platelets 448 10*3/uL High 150-400 [facility] WBC (Leukocytes) 14.69 10*3/uL High 3.70-11.00 [facility] LDon 01-23-2017 LD 169 U/L Normal 135-214 [facility] Comment on above: Performed By: #### L D6 ####[facility] [address]cxyuri[address] [place], [place] [phone] Remote Abs Gran + CBC (for F HC use only)on 01-23-2017 Absol Gran Count 8.16 k/uL High 1.45-7.50 [facility] Erythrocyte distribution width Auto Ratio (RBC) 13.7 % Normal 11.5-15.0 [facility] Erythrocytes (RBC) 5.16 10*6/uL Normal 3.90-5.20 [facility] Hematocrit (HCT) 43.4 % Normal 36.0-46.0 [facility] Hemoglobin mass conc (Bld) 14.3 g/dL Normal 11.5-15.5 [facility] MCH 27.7 pG Normal 26.0-34.0 [facility] MCHC mass conc (RBC) 32.9 g/dL Normal 30.5-36.0 [facility] MCV 84.1 fL Normal 80.0-100.0 [facility] Platelet mean volume (PMV) 9.6 fL Normal 9.0-12.7 [facility] Platelets 481 10*3/uL High 150-400 [facility] WBC (Leukocytes) 12.17 10*3/uL High 3.70-11.00 [facility] CNCOon 11-28-2016 CNCO Letter TextNorth Coa [facility] Apszbuct660 [facility] Mahoganyuab medical westryneTEBB[place]TS, [place] [address]Uehxw: [phone]: [facility] Hospitalyde509 [address] [place]TE[place], [place] [address]Csrhr: [phone]: [facility] [address] [place], [place] [address]Rfebu: [phone]: Toll Free: [phone] [email or web address] Saad Arredondo M.D., Ernetso Schmidt M.D.Isaac Shelton D.O..Audrey Jang M.D. FACROSaju A. Rajan, M.D..November 28, 2016Romainechapito Michael[address] [place] [address] [facility] [address]Ilhl Ms. Michael,You missed your scheduled appointment on 11/28/2016. Please call our officeto reschedule. If you need to cancel any future appointments, please call togive us 24 hour notice so that we can offer your appointment to anotherpatient.Sincerely,Tulio Au M.D. Normal [facility] Vital Signs Date Time Vital Sign Value Performing Clinician Facility 09-21-2023 10: Body height 160.02 cm [facility] 09-21-2023 10: Body mass index (BMI) [Ratio] 43.4 kg/m2 [facility] 09-21-2023 10: Body temperature 98.4 [degF] [facility] 09-21-2023 10: Body weight 111.13 kg [facility] 09-21-2023 10:14-0400 Diastolic blood pressure 88 mm[Hg] [facility] 09-21-2023 10:14-0400 Heart rate 72 /min [facility] 09-21-2023 10:14-0400 Respiratory rate 18 /min [facility] 09-21-2023 10:14-0400 SaO2% (BldA) [Mass fraction] 98 % [facility] 09-21-2023 10:14-0400 Systolic blood pressure 132 mm[Hg] [facility] 10-20-2021 21:00-0400 Body temperature 98.6 [degF] Mulugeta Tulio [facility] 10-20-2021 21:00-0400 Diastolic blood pressure 91 mm[Hg] Mulugeta Tulio [facility] 10-20-2021 21:00-0400 Heart rate 76 /min Mulugeta Tulio [facility] 10-20-2021 21:00-0400 Mean blood pressure 113 mm[Hg] Mulugeta Tulio [facility] 10-20-2021 21:00-0400 Respiratory rate 18 /min Mulugeta Tulio [facility] 10-20-2021 21:00-0400 SaO2% (BldA) [Mass fraction] 97 % Mulugeta Tulio [facility] 10-20-2021 21:00-0400 Systolic blood pressure 158 mm[Hg] Mulugeta Tulio [facility] 10-20-2021 20:00-0400 Body temperature 97.7 [degF] Mulugeta Tulio [facility] 10-20-2021 20:00-0400 Diastolic blood pressure 78 mm[Hg] Mulugeta Tulio [facility] 10-20-2021 20:00-0400 Heart rate 72 /min Mulugeta Tulio [facility] 10-20-2021 20:00-0400 Mean blood pressure 105 mm[Hg] Mulugeta Tulio [facility] 10-20-2021 19:00-0400 Diastolic blood pressure 102 mm[Hg] Mulugeta Tulio [facility] 10-20-2021 19:00-0400 Heart rate 70 /min Mulgueta Tulio [facility] 10-20-2021 19:00-0400 Mean blood pressure 124 mm[Hg] Mulugeta Tulio [facility] 10-20-2021 19:00-0400 Respiratory rate 17 /min Mulugeta Tulio [facility] 10-20-2021 19:00-0400 Systolic blood pressure 168 mm[Hg] Mulugeta Tulio [facility] 10-18-2021 12:00-0400 Heart rate 63 /min Kaylinn Dokken [facility] 10-18-2021 12:00-0400 Mean blood pressure 123 mm[Hg] Kaylinn Dokken [facility] 10-18-2021 12:00-0400 Systolic blood pressure 168 mm[Hg] Kaylinn Dokken [facility] 10-18-2021 11:30-0400 Diastolic blood pressure 100 mm[Hg] Kaylinn Dokken [facility] 10-18-2021 11:30-0400 Heart rate 69 /min Kaylinn Dokken [facility] 10-18-2021 11:30-0400 Mean blood pressure 121 mm[Hg] Kaylinn Dokken [facility] 10-18-2021 11:30-0400 Respiratory rate 16 /min Kaylinn Dokken [facility] 10-18-2021 11:30-0400 SaO2% (BldA) [Mass fraction] 99 % Kaylinn Dokken [facility] 10-18-2021 11:30-0400 Systolic blood pressure 163 mm[Hg] Kaylinn Dokken [facility] 10-18-2021 11:00-0400 Heart rate 68 /min Kaylinn Dokken [facility] 10-18-2021 11:00-0400 Mean blood pressure 120 mm[Hg] Kaylinn Dokken [facility] 10-18-2021 11:00-0400 SaO2% (BldA) [Mass fraction] 100 % Kaylinn Dokken [facility] 10-18-2021 11:00-0400 Systolic blood pressure 160 mm[Hg] Kaylinn Dokken [facility] 10-18-2021 09:30-0400 Hourly Rounding Kaylinn Dokken [facility] 10-18-2021 09:30-0400 Promise to Return Kaylinn Dokken [facility] 10-18-2021 08:30-0400 Hourly Rounding Kaylinn Dokken [facility] 10-18-2021 08:30-0400 Promise to Return Kaylinn Dokken [facility] 10-18-2021 03:59-0400 Body temperature 98.06 [degF] Jeffy Das [facility] 10-18-2021 03:59-0400 Heart rate 77 /min Jeffy Das [facility] Encounters Encounter Date Encounter Type Care Provider Facility Start: 09-21-2023 End: 09-21-2023 ambulatory [facility] Work Phone: Start: 09-21-2023 End: 09-21-2023 Patient encounter procedure [facility] Work Phone: Start: 07-23-2023 End: 07-23-2023 ambulatory MARY GRECO [facility] Start: 06-11-2023 End: 06-11-2023 ambulatory Belle Jose Other [facility] Other Start: 06-11-2023 Telephone encounter Belle Jose [facility] Start: 06-10-2023 End: 06-10-2023 ambulatory Belle Jose Other [facility] Other Start: 06-10-2023 Office outpatient vi sit 15 minutes Belle Jose [facility] Start: 02-19-2023 End: 02-19-2023 ambulatory GERALD [facility] Start: 09-22-2022 End: 09-23-2022 ambulatory TERRI [...] preprocedural cardiovascular examination DR GUSTAVO FONTAINE . [facility] Start: 10-26-2021 End: 10-26-[address] GUSTAVO FONTAINE . Facility:[facility] Start: 10-24-2021 End: 10-25-[address] GUSTAVO FONTAINE . Facility:[facility] Start: 10-24-2021 End: 10-25-2021 Encounter for preprocedural cardiovascular examination DR GUSTAVO FONTAINE . Facility:[facility] Start: 10-20-2021 End: 10-20-2021 Emergency department patient visit Mulugeta Antunez [facility] Start: 10-18-2021 End: 10-18-2021 Emergency department patient visit Jeffy Das [facility] Start: 09-27-2021 End: 09-28-2021 ambulatory JOVITA WAITE Facility:[facility] Start: 03-20-2021 Gynecological examin ation normal Belle Jose Other [facility] Other Start: 08-09-2020 Adult health examination Renee Jose Other [facility] Other Start: 07-01-2018 End: 07-02-2018 Patient encounter procedure DEFAULT PHYSICIAN Facility:[facility] Start: 06-30-2018 End: 07-01-2018 Patient encounter procedure DEFAULT PHYSICIAN Facility:[facility] Start: 10-20-2017 End: 10-22-2017 Ambulatory ISAAC SHELTON [facility] Start: 10-09-2017 End: 10-10-2017 Ambulatory ISAAC SHELTON [facility] Start: 10-06-2017 End: 10-06-2017 Ambulatory ISAAC SHELTON [facility] Start: 09-25-2017 End: 10-01-2017 Ambulatory JESUS CHEATHAM [facility] Start: 06-05-2017 End: 06-10-2017 Ambulatory ISAAC SHELTON [facility] Start: 05-22-2017 End: 05-28-2017 Ambulatory JESUS CHEATHAM [facility] Start: 04-28-2017 End: 05-05-2017 Ambulatory ISAAC SHELTON [facility] Start: 04-10-2017 End: 04-16-2017 Ambulatory CANDIS HERNANDEZ [facility] Start: 04-07-2017 End: 04-11-2017 Ambulatory ISAAC SHELTON [facility] Start: 03-19-2017 End: 03-19-2017 Ambulatory ISAAC SHELTON [facility] Start: 03-14-2017 End: 03-14-2017 Ambulatory ISAAC SHELTON [facility] Start: 03-13-2017 End: 03-17-2017 Ambulatory ISAAC SHELTON [facility] Start: 02-06-2017 End: 02-07-2017 Ambulatory ISAAC SHELTON [facility] Start: 01-23-2017 End: 01-23-2017 Ambulatory ISAAC SHELTON [facility] Procedures Date Procedure Procedure Detail Performing Clinician section Jeffy cruz Cholecystectomy Jeffy redd Immunizations Immunization Date Immunization Notes Care Provider Fa cili 03-13-2020 influenza virus vaccine, split virus (incl. purified surface antigen) Belle Jose Other [facility] Other 03-13-2020 influenza virus vaccine, unspecified formulation [facility] 03-16-2018 influenza virus vaccine, split virus (incl. purified surface antigen) Belle Jose Other [facility] Other 03-16-2018 influenza virus vaccine, unspecified formulation [facility] Payers Date Payer Category Payer Unknown [id number] 1975 Unknown [id number] 2.16.840.1.744667.3.579.2.647 1975 Unknown [id number] 2.16.840.1.969245.3.579.2.593 1975 Unknown [id number] 2.16.840.1.581417.3.579.2.593 1975 Unknown [id number] 2.16.840.1.824369.3.579.2.593 1975 Unknown [id number] 2.16.840.1.719069.3.579.2.593 1975 Unknown [id number] 2.16.840.1.391020.3.579.2.593 1975 Unknown [id number] 2.16.840.1.187418.3.579.2.593 1975 Unknown [id number] 2.16.840.1.498763.3.579.2.593 1975 Unknown [id number] 2.16.840.1.871096.3.579.2.593 1975 Unknown [id number] 2.16.840.1.393968.3.579.2.593 1975 Unknown [id number] 2.16.840.1.514097.3.579.2.593 1975 Unknown [id number] 2.16.840.1.278922.3.579.2.593 1975 Unknown [id number] 2.16.840.1.552151.3.579.2.593 1959 Private Health Insurance [id number] Self-pay [id number] 1959 Unknown [id number] 1959 Unknown [id number] Self-pay Self Pay [id number] Unknown Unknown [id number] [address] [place] KETURAH [id number] Social History Date Type Detail Facility Tobacco smoking status [facility] Sex Assigned At Female [facility] Start: 06-10-2023 Tobacco smoking stat [facility] Never smoked tobacco (finding) [facility] Start: 1975 Sex Assigned At Female F [facility] Clinical Notes 10-18-2021 to 07-23-2023 Note Date & Type Note Facility 07-23-2023 Note Currently without fl uid overload/ edema at this time with chlorthalidone daily. + RANDALL Will repeat TTE [facility] 07-23-2023 Note UTP CARDIOLOGY PROGR [...] pt to call if b/p is uncontrolled [facility] 07-23-2023 Note Patient here for [facility] low up event monitor. Her insurance denied echo again. C/o cough with lisinopril. Still gets intermittent palpitations and hasn't had an echo in 3+ years. Review of Systems Cardiovascular: Positive for irregular heartbeat and palpitations. Neurological: Positive for dizziness, headaches and light-headedness. All other systems reviewed and are negative. [facility] 07-23-2023 Note Hypertension is unco ntrolled will increase chlorthalidone and pt c/o persistent dry cough- therefore will stop lisinopril. She is to monitor b/p at home and if consistently > 130/80 she is to call office and then may need started on losartan Repeat BMP in 1-2 weeks [facility] 07-23-2023 Note Continues to have pa lpitations with known MV regurg on beta yandel. Will repeat echo to evaluate for any worsening MV regurg, diastolic dysfunction. [facility] 06-10-2023 Evaluation note Encounter Date [...] of diseases classified elsewhere (ICD-10 - B96.89) [facility] Other 09-13-2023 NoteUT Cardiology Progress Note Reason [...] pallor Neck Neck: suppl (more content not included)...[facility] 02-19-2023 NotePatient here for 6 [...] light-headedness. 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 PREOPERATIVE DIAGNOSIS: Pelvic pain. POSTOPERATIVE DIAGNOSIS: Pelvic pain including hydrosalpinx of partial tubal remnant bilaterally, slightly erythematous tubal remnant. Otherwise normal appearing uterus and ovaries. SURGEON: Gustavo Fontaine M.D. PHYSICAL THERAPIST TECHNICIAN: VALERIE Coombs URINE OUTPUT: Yellow and clear. [...] Fontaine DO on 11/09/2021 08:27 AM EDT [facility] Signed and Approved by: DR GUSTAVO FONTAINE . 11/09/2021 08:27:00[facility]05-20-2022 NoteOP Note OPERATION DATE: 10/26/2021 ADDENDUM: Please note that the patient had partial tubal remnants with hydrosalpinx that were removed using the LigaSure. Please note that these were transected and ligated and excellent hemostasis was performed. [facility] Signed and Approved by: DR GUSTAVO FONTAINE . 12/02/2021 10:37:00[id number] NoteOP Note OPERATION DATE: 10/26/2021 ADDENDUM: Please note that the patient had partial tubal remnants with hydrosalpinx that were removed using the LigaSure. Please note that these were transected and ligated and excellent hemostasis was performed.[id number] Hospital Discharge instructions Patient Education 10/20/2021 21:20:19 [...] cyst. Follow these instructions at home: Take bswv-tno-lkqslzx and prescription medicines only as told by [...] 05/26/2006 Document Revised: 08/24/2018 Document Reviewed: 10/27/2016 Bundle Patient Education 2020 [employer]. Follow Up Care 10/20/2021 18:19:10 With:Gustavo FONTAINE Address: [address] , [place] [address]- Business (1) When:10/23/2021 21:06:35 [facility]05-14-2022 Evaluation + Plan noteExtracted from: Title:ED Note Author:Hunter Conte DO Date :10/20/21 Hydrosalpinx (N70.11: Chroni c salpingitis) Left ovarian cyst (N83.202: Unspecified ovarian cyst, left side) Orders: ketorolac, 10 mg = 1 tab(s), Oral, q6hr, PRN for pain, X 5 day(s), # 20 tab(s), Refills(s) 0, Pharmacy: [facility]/pharmacy #[id number], 160, cm, 10/20/21 18:21:00 EDT, [...] 10/20/21 19:00:[address] Abdomen/Pelvis w/ Contrast [facility]05-12-2022 Hospital Discharge instructions Patient Education 10/18/2021 [...] Follow these instructions at home: Medicines Take xuul-fkm-pflkztb and prescription medicines only as told by [...] Watch your condition for any changes. Take hbmq-qbt-jzpqazr and prescription medicines only as told by [...] 03/05/2006 Document Revised: 10/04/2019 Document Reviewed: 10/04/2019 Bundle Patient Education 2020 [employer]. Follow Up Care 10/18/2021 03:57:58 With:Gustavo FONTAINE Address: [address] [place] [address]- Business (1) When:10/21/2021 12:14:15 With:JOVITA WAITE Address: [address] [place] [place] [address]- [phone] Business (1) When:10/21/2021 12:13:23 Comments:The ultrasound showed that you have fluid in your fallopian tube. Make sure to follow-up with Dr. Fontaine as instructed. Return to the emergency room if your pain gets worse, fever, vomiting or any newsymptoms. [facility]05-12-2022 Evaluation + Plan noteExtracted from: Title:ED [...] With Cult Reflex US Pelvis Non-OB [facility] noteNo InformationNort Run The Campaign Other Evaluation noteNo assessment information available [facility] Work Phone: History general Narrative - Reported* [...] procedures, hx of, Problem Comment : Ablasion-2014 [id number] Cholecystectomy-2005 , Problem Status : Active, Hospitalization History see above [facility] Other History general Narrative - Reported* Type [...] procedures, hx of, Problem Comment : Ablasion-2014 [id number] Cholecystectomy-2005 , Problem Status : Active, Hospitalization History see above [facility] Other Hospital course Narrative No data available for this section [facility] Summary Purpose Family History No Family [...] section and content) DATE CREATED AUTHOR 11/26/2017 [facility] DATE CREATED AUTHOR AUTHOR'S ORGANIZ ATION 07/10/2018 [facility] DATE CREATED AUTHOR AUTHOR'S ORGANIZ ATION 12/31/2021 [facility] DATE CREATED AUTHOR AUTHOR'S ORGANIZ ATION 09/25/2022 [facility] DATE CREATED AUTHOR AUTHOR'S ORGANIZ ATION 10/11/2023 [facility] REASON FOR VISIT (unrecogniz ed section [...] BE BASED ON THE PRIMARY CLINICAL RECORDS. [facility]. provides no warranty or guarantee of the accuracy or completeness of information in this document.
[2024-02-25 09:52] LABS: BUN Creatinine Ratio 16.2; Calcium 9.1 mg/dL (8.5-10.1); Carbon Dioxide 28.8 mmol/L (21.0-32.0); Chloride 100 mmol/L (98-107); Estimated GFR (African America >60 (>=60); Estimated GFR (Non-African Ame >60 (>=60); Glucose 98 mg/dL (74-106); Potassium 3.8 mmol/L (3.5-5.1); Sodium 137 mmol/L (136-145)
== END 2024-02-25 09:23 | disposition home or self-care (01) ==
LOC: LAB 09:22
PROVIDERS: PCP Nurse Practitioner Family; Visit Provider Nurse Practitioner Family
DX: E87.6 Hypokalemia (principal)
CPT/HCPCS: 36415; 80048

== ENCOUNTER 2024-05-03 13:39 | Emergency (ER) | payer BC, SELFPAY ==
[2024-05-03] VITALS (12 sets, daily range): BP systolic 137–161; BP diastolic 75–87; PULSE 59–105; TEMP 36.7; O2SAT 97–100; BMI 40.7
--- NOTE | 2024-05-03 13:56 | CT_ITS ---
The [address] [address] Patient Name: MARCELLA HOUSER MRN: [id number] date: 1975 Sex: F Assigned Patient Location: ER Current Patient Location: Accession/Order Number: [id number] Exam Date: 05/03/2024 14:37 Report Date: 05/03/2024 15:05 At the request of: CHARLINE HATFIELD Procedure: CT head/brain wo con CT head/brain wo con, 05/03/2024 2:37 PM EST INDICATION: Headache, dizziness COMPARISON: There is no appropriate prior study for comparison. TECHNIQUE: Axial CT images of the brain from skull base to vertex, including portions of the face and sinuses, were obtained without contrast . Multiplanar reformatted images were generated and reviewed as needed. Dose reduction techniques were achieved by using automated exposure control and/or adjustment of mA and/or kV according to patient size and/or use of iterative reconstruction technique. FINDINGS: The cerebral sulci as well as ventricular system are appropriate for age. There is no intracranial mass, mass effect, midline shift, intra or extra-axial fluid collection or hemorrhage. There is mucosal thickening within the sphenoid sinuses. The visualized portions of orbits, mastoid air cells as well as remainder of paranasal sinuses are unremarkable. There is no suspicious osteolytic or osteoblastic lesion. CT/CT head/brain wo con IMPRESSION: No acute intracranial process is noted. Electronically authenticated by: JOHN RANDOLPH Date: 05/03/2024 15:05
--- NOTE | 2024-05-03 13:56 | ECG_ITS ---
The [facility] Test Date: 2024-05-03 Pat Name: MARCELLA HOUSER Department: Room: - Gender: Female [employer] Room Attendant: : 1975 Requested By: JOVITA WAITE Order Number: [id number] Reading MD: ARMANI ORTEGA Measurements Intervals Letts Rate: 66 P: 136 NM: 142 QRS: 155 QRSD: 80 T: 121 QT: 396 QTc: 410 Interpretive Statements Sinus rhythm 5120 Possible right ventricular hypertrophy 0101 Possible arm leads reversed, check lead requested 9140 abnormal rhythm ECG Compared to ECG 10/24/2021 08:40:35 Sinus rhythm no longer present Electronically Signed On 05-03-2024 19:51:22 EST by ARMANI ORTEGA
--- NOTE | 2024-05-03 13:57 | ED.GENADUL1 ---
HPI HPI - General Adult General Chief complaint: Headache Stated complaint: HEADACHE/DIZZINESS Time Seen by Provider: 05/03/24 13:47 Source: patient Mode of arrival: walk-in Limitations: no limitations History of Present Illness HPI narrative: Patient is a 48-year-old female who presents to the emergency department for the evaluation of headache and dizziness that began several hours ago at work. She states she had a sudden onset of zap like feeling across the frontal scalp. 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 She denies any spinning or room spinning. She has not had any fevers, chills, cough or congestion. No recent illness. She states she took Tylenol prior to arrival. She denies any neck pain, numbness or tingling in the hands or feet. She states when she drove herself home from work she hit her mailbox because she feels off balance. She denies chest pain, shortness of breath, nausea, vomiting. No urinary symptoms. Related Data Home Medications ?Medication ?Instructions ?Recorded ?Confirmed chlorthalidone 25 mg tablet 12.5 mg PO .am 12/04/22 05/03/24 lisinopril 20 mg tablet 20 mg PO BID 12/04/22 05/03/24 pindolol 5 mg tablet 20 mg PO DAILY 12/04/22 05/03/24 sertraline 50 mg tablet 50 mg PO Q24H 12/04/22 05/03/24 alprazolam 0.5 mg tablet 0.5 mg PO BID PRN anxiety 05/03/24 05/03/24 potassium chloride 10 mEq 10 meq PO BID 05/03/24 05/03/24 tablet,extended release Previous Rx's ?Medication ?Instructions ?Recorded ketorolac 10 mg tablet 10 mg PO TID PRN pain #10 tabs 12/04/22 clindamycin HCl 300 mg capsule 300 mg PO Q6H 10 days #40 caps 08/17/23 ibuprofen 800 mg tablet 800 mg PO Q8H PRN pain #20 tabs 08/17/23 ciprofloxacin HCl 500 mg tablet 500 mg PO BID 5 days #10 tabs 10/29/23 (Cipro) ketorolac 10 mg tablet 10 mg PO TID PRN pain #10 tabs 05/03/24 meclizine 25 mg chewable tablet 25 mg PO QID PRN dizziness #12 tabs 05/03/24 (Antivert) methylprednisolone 4 mg tablets in See Rx Instructions .Route 05/03/24 a dose pack (Medrol (Arnulfo)) .COMPLEX #21 ea ondansetron 4 mg disintegrating 4 mg PO Q6H PRN nausea and 05/03/24 tablet vomiting #12 tabs Allergies Allergy/AdvReac Type Severity Reaction Status Date / Time metoprolol (From Toprol XL) Allergy Intermediate tachycardia Verified 05/03/24 13:46 Opioid HPI Opioid Management Most Recent Opioid Data: Last Pain Scale 0 05/03/24 15:22 05/03/24 Last MAR Pain Assessment 05/03/24 15:22 Review of Systems ROS Constitutional Denies: fever or chills Eyes Denies: change in vision Ears, nose, mouth, and throat Denies: throat pain or neck pain Cardiovascular Denies: chest pain Respiratory Denies: shortness of breath or cough Gastrointestinal Denies: nausea or vomiting Integumentary/Breast Denies: rash Neurological Reports: headache and dizziness; Denies: numbness in extremities or weakness in extremities Hematologic/Lymphatic Denies: easy bruising or easy bleeding PFSH PFSH Social History Smoking status: Never smoker Little interest or pleasure in doing things: not at all Feeling down, depressed, or hopeless: not at all Exam Narrative Exam Narrative: Gen.: Awake, alert, in no distress Head: Normocephalic, atraumatic ENT: Moist mucous membranes, bilateral TMs clear Respiratory: No respiratory distress, lungs clear bilaterally Cardio: Regular rate and rhythm Extremities: Moves extremities equally Psych: Normal mood and affect Neuro: No focal neuro deficit, clear speech, no unilateral weakness or facial drooping noted Skin: Warm, dry, intact Constitutional Vital Signs, click to edit/add: Last Vital Signs Temp 98.1 F 05/03/24 13:46 Pulse 59 L 05/03/24 15:30 Resp 16 05/03/24 15:30 BP 137/87 05/03/24 14:00 Pulse Ox 98 05/03/24 15:30 O2 Del Method Room Air 05/03/24 13:46 Course Vital Signs Vital signs: Vital Signs Temperature 98.1 F 05/03/24 13:46 Pulse Rate 72 05/03/24 13:46 Respiratory Rate 18 05/03/24 13:46 Blood Pressure 161/75 H 05/03/24 13:46 Pulse Oximetry 99 05/03/24 13:46 Oxygen Delivery Method Room Air 05/03/24 13:46 Temperature 98.1 F 05/03/24 13:46 Pulse Rate 59 L 05/03/24 15:30 Respiratory Rate 16 05/03/24 15:30 Blood Pressure 137/87 05/03/24 14:00 Pulse Oximetry 98 05/03/24 15:30 Oxygen Delivery Method Room Air 05/03/24 13:46 Medical Decision Making MDM Narrative Medical decision making narrative: Patient initially treated with Antivert, she has a benign exam with no focal neurodeficits and is hemodynamically stable. EKG, lab studies and CT of the brain were obtained. No significant abnormalities noted. Patient was given additional Toradol and Solu-Medrol after the CT resulted negative. Patient is able to ambulate in the ER, she appears well-hydrated and nontoxic. She will be treated with Antivert, steroids for home. Follow-up with PCP and return to the ER if symptoms change or worsen. SUPERVISED APC VISIT, PHYSICIAN ATTESTATION: Based on the medical record the care appears appropriate. ? Medical Records Medical records reviewed: Yes I reviewed the patient's medical records Lab Data Lab results reviewed: Yes I reviewed the patient's lab results Labs: Lab Results 05/03/24 05/03/24 Range/Units 14:09 15:56 WBC 13.5 H (4.0-11.0) 10^3/uL RBC 4.74 (4.20-5.40) 10^6/uL Hgb 13.3 (12.0-16.0) g/dL Hct 40.2 (36.0-48.0) % MCV 84.8 (81.0-99.0) fL MCH 28.1 (26.7-34.0) pg MCHC 33.1 (29.9-35.2) g/dL RDW 13.1 (11.0-15.0) % Plt Count 428 (150-450) 10^3/uL MPV 9.8 (9.5-13.5) fL Neut % (Auto) 72.6 (43.0-75.0) % Lymph % (Auto) 19.4 L (20.5-60.0) % [place] % (Auto) 5.4 (1.7-12.0) % Eos % (Auto) 1.4 (0.9-7.0) % Baso % (Auto) 0.9 (0.2-2.0) % Neut # (Auto) 9.8 H (1.4-6.5) 10^3/uL Lymph # (Auto) 2.6 (1.2-3.8) 10^3/uL [place] # (Auto) 0.7 (0.3-0.8) 10^3/uL Eos # (Auto) 0.2 (0.0-0.7) 10^3/uL Baso # (Auto) 0.1 (0.0-0.1) 10^3/uL Abs Immat Gran (auto) 0.04 H (0.00-0.03) 10^3/uL Imm/Tot Granulo (auto) 0.3 (0.0-0.5) % ESR 36 H (<=20) mm/hr Sodium 139 (136-145) mmol/L Potassium 3.6 (3.5-5.1) mmol/L Chloride 100 (98-107) mmol/L Carbon Dioxide 26.8 (21.0-32.0) mmol/L Anion Gap 15.8 BUN 14.0 (7.0-18.0) mg/dL Creatinine 0.84 (0.55-1.02) mg/dL Est GFR ( Amer) >60 (>=60 mL/min/1.73m^2) Est GFR (Non-Af Amer) >60 (>=60 mL/min/1.73m^2) BUN/Creatinine Ratio 16.7 Glucose 111 H (74-106) mg/dL Calcium 9.0 (8.5-10.1) mg/dL Total Bilirubin 0.7 (0.2-1.0) mg/dL AST 20 (15-37) U/L ALT 36 (14-59) U/L Alkaline Phosphatase 64 (46-116) U/L C-Reactive Protein 1.54 H (<=0.50) mg/dL Total Protein 8.0 (6.4-8.2) g/dL Albumin 3.7 (3.4-5.0) g/dL Globulin 4.3 g/dL Albumin/Globulin Ratio 0.9 Serum HCG, Qual Negative (NEGATIVE) Urine Color Lt. yellow (YELLOW) Urine Clarity Clear (CLEAR) Urine pH 6.0 (5.0-9.0) Ur Specific [place] 1.010 (1.005-1.025) Urine Protein Negative (NEG/TRACE) mg/dL Urine Glucose (UA) Negative (NEGATIVE) mg/dL Urine Ketones Negative (NEGATIVE) mg/dL Urine Occult Blood Negative (NEGATIVE) Urine Nitrite Negative (NEGATIVE) Urine Bilirubin Negative (NEGATIVE) Urine Urobilinogen 0.2 (0.2-1.0) EU/dL Ur Leukocyte Esterase Negative (NEGATIVE) Imaging Data CT scan - head: Attestation: I have reviewed the pertinent imaging results. Radiologist's impression: ITS Impressions Head CT 05/03/24 13:56 IMPRESSION: No acute intracranial process is noted. Electronically authenticated by: JOHN RANDOLPH Date: 05/03/2024 15:05 ECG Data Attestation: I personally reviewed and interpreted this ECG as follows: (Normal sinus rhythm at a rate of [address] elevation or ectopy. EKG reviewed by attending physician) Discharge Plan Discharge Chief Complaint: Headache Clinical Impression: Headache, Dizziness Patient Disposition: Home, Self-Care Time of Disposition Decision: 16:22 Condition: Good Prescriptions / Home Meds: New ketorolac 10 mg tablet 10 mg PO TID PRN (Reason: pain) Qty: 10 0RF methylprednisolone [Medrol (Arnulfo)] 4 mg tablets,dose pack See Rx Instructions .ROUTE .COMPLEX Qty: 21 0RF Rx Instructions: Taper as directed ondansetron 4 mg tablet,disintegrating 4 mg PO Q6H PRN (Reason: nausea and vomiting) Qty: 12 0RF meclizine [Antivert] 25 mg tablet,chewable 25 mg PO QID PRN (Reason: dizziness) Qty: 12 0RF No Action ciprofloxacin HCl [Cipro] 500 mg tablet 500 mg PO BID 5 Days Qty: 10 0RF chlorthalidone 25 mg tablet 12.5 mg PO .am lisinopril 20 mg tablet 20 mg PO BID pindolol 5 mg tablet 20 mg PO DAILY sertraline 50 mg tablet 50 mg PO Q24H ketorolac 10 mg tablet 10 mg PO TID PRN (Reason: pain) Qty: 10 0RF clindamycin HCl 300 mg capsule 300 mg PO Q6H 10 Days Qty: 40 0RF ibuprofen 800 mg tablet 800 mg PO Q8H PRN (Reason: pain) Qty: 20 0RF alprazolam 0.5 mg tablet 0.5 mg PO BID PRN (Reason: anxiety) potassium chloride 10 mEq tablet extended release 10 meq PO BID Print Language: Portuguese Instructions: Acute Headache (ED), Dizziness (ED) Referrals: JOVITA WAITE [Primary Care Provider] - 1 week Discharge Date/Time: 05/03/24 16:32
[2024-05-03] MEDS: MECLIZINE HCL 12.5 MG TABLET 25 MG PO (14:16)
[2024-05-03 14:17] LABS: Basophils Absolute Auto 0.1 10^3/uL (0.0-0.1); Basophils Percent Auto 0.9 % (0.2-2.0); Eosinophils Absolute Auto 0.2 10^3/uL (0.0-0.7); Eosinophils Percent Auto 1.4 % (0.9-7.0); Hematocrit 40.2 % (36.0-48.0); Hemoglobin 13.3 g/dL (12.0-16.0); Immature Granulocytes Abs Auto 0.04 10^3/uL (0.00-0.03); Immature Granulocytes Pct Auto 0.3 % (0.0-0.5); Lymphocytes Absolute Auto 2.6 10^3/uL (1.2-3.8); Lymphocytes Percent Auto 19.4 % (20.5-60.0); Mean Corpuscular HGB Conc 33.1 g/dL (29.9-35.2); Mean Corpuscular Hemoglobin 28.1 pg (26.7-34.0); Mean Corpuscular Volume 84.8 fL (81.0-99.0); Mean Platelet Volume 9.8 fL (9.5-13.5); Monocytes Absolute Auto 0.7 10^3/uL (0.3-0.8); Monocytes Percent Auto 5.4 % (1.7-12.0); Neutrophils Absolute Auto 9.8 10^3/uL (1.4-6.5); Neutrophils Percent Auto 72.6 % (43.0-75.0); Platelet Count 428 10^3/uL (150-450); Red Blood Count 4.74 10^6/uL (4.20-5.40); Red Cell Distribution Width 13.1 % (11.0-15.0); White Blood Count 13.5 10^3/uL (4.0-11.0)
[2024-05-03 14:26] LABS: HCG Qualitative NEGATIVE (NEGATIVE); Internal Control Within Normal Limits
[2024-05-03 14:32] LABS: Alanine Aminotransferase 36 U/L (14-59); Albumin Globulin Ratio 0.9; Albumin Level 3.7 g/dL (3.4-5.0); Alkaline Phosphatase 64 U/L (46-116); Anion Gap 15.8; Aspartate Amino Transferase 20 U/L (15-37); BUN Creatinine Ratio 16.7; Bilirubin Total 0.7 mg/dL (0.2-1.0); C Reactive Protein 1.54 mg/dL (<=0.50); Carbon Dioxide 26.8 mmol/L (21.0-32.0); Chloride 100 mmol/L (98-107); Estimated GFR (African America >60 (>=60 mL/min/1.73m^2); Estimated GFR (Non-African Ame >60 (>=60 mL/min/1.73m^2); Globulin 4.3 g/dL; Glucose 111 mg/dL (74-106); Potassium 3.6 mmol/L (3.5-5.1); Sodium 139 mmol/L (136-145)
[2024-05-03 14:40] LABS: Erythrocyte Sedimentation Rate 36 mm/hr (<=20)
[2024-05-03] MEDS: METHYLPREDNISOLONE SOD SUCC PF 125 MG/2 ML VIAL IVP (15:22)
[2024-05-03] MEDS: KETOROLAC TROMETHAMINE 30 MG/ML VIAL IVP (15:22)
--- NOTE | 2024-05-03 15:52 | PC.NURSE ---
pt was able to ambulate to the restroom and back to room no distress noted
[2024-05-03 16:07] LABS: Bilirubin Urine NEGATIVE (NEGATIVE); Blood Urine NEGATIVE (NEGATIVE); Clarity Urine CLEAR (CLEAR); Color Urine LT. YELLOW (YELLOW); Glucose Urine UA NEGATIVE (NEGATIVE); Ketones Urine NEGATIVE (NEGATIVE); Leukocyte Esterase Urine NEGATIVE (NEGATIVE); Nitrite Urine NEGATIVE (NEGATIVE); Protein Urine NEGATIVE (NEG/TRACE); Urobilinogen Urine 0.2 EU/dL (0.2-1.0)
[2024-05-03 16:08] LABS: Urine Microscopic Indicated NO
== END 2024-05-03 16:32 | disposition home or self-care (01) ==
PROVIDERS: Physician Assistant; Emergency Provider Emergency Medicine; PCP Nurse Practitioner Family
DX: R51.9 Headache, unspecified (principal); R42 Dizziness and giddiness
CPT/HCPCS: 36415; 70450; 80053; 81003; 84703; 85025; 85652; 86140; 93005; 96374; 96375; 99285; J1885; J2919

== ENCOUNTER 2024-10-18 08:46 | Outpatient (OUT) | payer BC, SELFPAY ==
--- NOTE | 2024-10-18 | NM_ITS ---
Patient Name: MARCELLA HOUSER MR#: [id number] : 1975 Exam Date: 10/18/2024 Ordering Doctor: YANY KO RADIOLOGY REPORT PROCEDURE: NM SHELDON PERF SPECT REST STR COMPARISON: None. INDICATIONS: OTHER CHEST PAIN TECHNIQUE: Exam Description: Stress/Rest two day protocol gated SPECT Rest Imagin.2 mCi Tc-99m Cardiolite IV on 10/20/2024 Stress Imaging 25.5 mCi Tc-99m Cardiolite IV on 10/18/2024 Exercise Protocol: 0.4 mg Lexiscan given IV Heart Rate (bpm): Rest: 68 Max: 102 PMHR: 59 Blood Pressure: Rest: 130/78 Max: 136/74 Symptoms: Rest and peak stress ECG findings were pending and the exercise portion of the study was pending per attending physician [facility] . For more details please see separate cardiac stress test report. FINDINGS: QUALITY OF STUDY: Good PERFUSION DEFECT: LOCATION: Anteroapical SIZE: Small SEVERITY: Mild TYPE: Reversible WALL MOTION: Normal wall motion LV SIZE: 78 mL. TID / TCD: 1.2 LVEF: Calculated EF 75%. SUMMARY: Myocardial perfusion imaging study is abnormal CONCLUSION: 1. Myocardial perfusion is abnormal 2. A small reversible anteroapical perfusion defect is seen suggestive of ischemia 3. Global left ventricular systolic function is normal, EF is 75% 4. No significant transient ischemic dilatation Dictated by: Lisa Farooq M.D. on 10/20/2024 at 15:47 Approved by: Lisa Farooq M.D. on 10/20/2024 at 15:50
--- OUTSIDE RECORDS SUMMARY | 2024-10-18 08:52 | XMS_ITS | CCD ---
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 Name Role Phone ADAMOWICZ, ISAAC J Unavailable Unavailable ADAMOWICZ, ISAAC J Unavailable Unavailable ADAMOWICZ, ISAAC J Unavailable Unavailable ADAMOWICZ, ISAAC J Unavailable Unavailable ADAMOWICZ, ISAAC J Unavailable Unavailable ADAMOWICZ, ISAAC J Unavailable Unavailable ADAMOWICZ, ISAAC J Unavailable Unavailable ADAMOWICZ, ISAAC J Unavailable Unavailable ADAMOWICZ, ISAAC J Unavailable Unavailable ADAMOWICZ, ISAAC J Unavailable Unavailable CANDIS HERNANDEZ Unavailable Unavailable SHANAE LUNA (TWO WAY RADIO INSTALLER) Unavailable Unavailabl e ADAMOWICZ, ISAAC J Unavailable Unavailable ADAMOWICZ, ISAAC J Unavailable Unavailable ADAMOWICZ, ISAAC J Unavailable Unavailable JESUS CHEATHAM Unavailable Unavailab le ADAMOWICZ, ISAAC J Unavailable Unavailable SHANAE LUNA (TWO WAY RADIO INSTALLER) Unavailable Unavailabl e SHANAE LUNA (TWO WAY RADIO INSTALLER) Unavailable Unavailabl e ADAMOWICZ, ISAAC J Unavailable Unavailable ADAMOWICZ, ISAAC J Unavailable Unavailable JESUS CHEATHAM Unavailable Unavailab JOSEPH Arceo Unavailable Unavailab le ADAMOWICZ, ISAAC J Unavailable Unavailable ADAMOWICZ, ISAAC J Unavailable Unavailable ADAMOWICZ, ISAAC J Unavailable Unavailable SHANAE LUNA (TWO WAY RADIO INSTALLER) Unavailable Unavailabl e ADAMOWICZ, ISAAC J Unavailable Unavailable ADAMOWICZ, ISAAC J Unavailable Unavailable PHYSICIAN, DEFAULT Admitting Unavailable PHYSICIAN, DEFAULT Attending Unavailable PHYSICIAN, DEFAULT Admitting Unavailable PHYSICIAN, DEFAULT Attending Unavailable JOVITA WAITE Primary Care Physician SHERMAN Hernandez, DR JUÁREZ Consulting Unavailable JOVITA WAITE Primary Care Unavailable DR GUSTAVO GREWAL Attending Unavailable DR GUSTAVO GREWAL Admitting Unavailable ALLI CARLSON Consulting Unavailable WAED BOUCHER Consulting Unavailable MARIANN, JOVITA Primary Care [...] DIANE Attending Unavailable FANNIE, DIANE Admitting Unavailable ZIEBER, DR TERRI Lynn Consulting [...] DR JUÁREZ Admitting Unavailable [place] Unavailable DO Jeffy Das Attending Unavailable Jeffy Das Attending Unavailable YANY KO Attending Unavailable GERALD MANCINI Attending Unavailable Allergies Allergy Classification Reported Allergen(s) Allergy Type Date of Onset Reaction(s) Facility (5 sources) metoprolol; Translations: [METOPROLOL] Drug Allergy 6 AOF, heart racing [facility] Repository (2 sources) Pyridoxal Drug Allergy 3 [facility] Repository (3 sources) patient allergy list reviewed by nurse or physicia Propensity to adverse reactions 09-18-201 7 Comment:Done [facility] Other (3 sources) Allergies Reconciled Propensity to adverse reactions Unknown [facility] Other (2 sources) Ciprofloxacin; Translations: [ciprofloxacin] Drug Allergy Unknown (qualifier value) [facility] Jerzy (1 source) Metoprolol; Translations: [Toprol-XL] Drug Allergy [facility] Repository Medications Current Medications Medication Drug Class(es) Dates [...] Weight Dosing Start Date: 10/18/21 Status: Ordered ALPRAZolam 0.25 mg oral tablet (1 source) Benzodiazepine Start: 09-12-2024 take 1 tablet by mouth twice daily as needed Alprazolam 0.25 mg tablet Active 0.25 MG PO Twice daily as needed September 12, 2024 12:00am amLODIPine 5 mg oral tablet (1 source) Dihydropyridine Calcium Channel Paula Start: 11-22-2021 take 1 tablet by mouth once daily amLODIPine 5 mg Tab 5 mg = 1 tab(s), Oral, Daily, Refills(s) 0 Start Date: 11/22/21 Status: Ordered Repeat number: 1 amoxicillin 875 mg / clavulanate 125 mg oral tablet (1 source) Penicillin-class Antibacterial Start: 09-12-2024 take 1 tablet by mouth twice daily Amoxicillin-Pot Clavulanate 875-125 mg tablet Active 1 TAB PO Twice daily 14 September 12, 2024 12:00am azithromycin 250 mg oral tablet (6 sources) Macrolide Antimicrobial Start: 03-03-2023 Azithromycin 250 MG as directed Orally 2 tabs po today, then 1 tab daily x 4 more days for 5 Jun, Active chlorthalidone 25 mg oral tablet (6 sources) Thiazide-like Diuretic Start: 09-12-2024 Chlorthalidone 25 mg tablet Active 12.5 MG PO Daily September 12, 2024 1:33pm Start: 09-21-2023 End: 09-12-2024 Chlorthalidone 25 mg tablet Discontinued MG PO September 21, 2023 12:00am September 12, 2024 1:35pm Start: 09-21-2023 Chlorthalidone Active MG PO September 21, 2023 12:00am Chlorthalidone 2 5 MG 1/2 tablet once a day Active doxycycline hyclate 100 mg oral tablet (2 sources) Tetracycline-class Drug Start: 10-18-2021 take 1 tablet by mouth twice daily doxycycline hyclate 100 mg Tab 100 mg = 1 tab(s), Oral, BID, # 20 tab(s), Refills(s) 0, Pharmacy: [facility]/pharmacy #[id number], 160, cm, 10/18/21 4:04:00 EDT, Height/Length [...] day(s), # 20 tab(s), Refills(s) 0, Pharmacy: [facility]/pharmacy #[id number], 160, cm, 10/20/21 18:21:00 EDT, Height/Length Dosing, 107, kg, 10/20/21 18:21:00 EDT, Weight Dosing Start Date: 10/20/21 Stop Date: 10/25/21 Status: Ordered lisinopril 20 mg oral tablet (11 sources) Angiotensin Converting Enzyme Inhibitor Start: 09-21-2023 [...] bedtime, # 30 tab(s), Refills(s) 0, Pharmacy: [facility]/pharmacy #[id number] Start Date: 11/10/17 Status: Ordered Start: 11-10-2017 take 1 tablet by marcus th once daily lisinopril 5 mg Tab 5 mg = 1 tab(s), Oral, Daily, Refills(s) 0 Start Date: 11/10/17 Status: Ordered Start: 07-08-2017 End: 09-12-2024 take 1 tablet by mouth twice daily Lisinopril 20 mg tablet Active 20 MG PO Twice daily September 12, 2024 1:33pm meclizine hydrochloride 25 mg oral tablet (1 source) Antiemetic Start: 11-22-2021 take 1 tablet by mouth three times daily meclizine 25 mg Tab 25 mg = 1 tab(s), Oral, TID, Refills(s) 0 Start Date: 11/22/21 Status: Ordered Repeat number: 1 pindolol 5 mg oral tablet (9 sources) beta-Adrenergic Paula Start: 09-21-2023 End: 09-12-2024 take 1 tablet by mouth twice daily Pindolol 5 mg tablet Active 10 MG PO Twice daily September 12, 2024 1:33pm Start: 09-21-2023 Pindolol Activ e MG PO September 21, 2023 12:00am Start: 11-07-2021 Pindolol 10MG Pindolol( 10MG Oral two times daily ) Active -Hx Entry Oral two times daily for 0 *Pick strength-form from [facility] for eRX* Nov, Active Start: 05-22-2017 take 2 tablets by mo [facility] twice daily pindolol 5 mg oral tablet 10 mg = 2 tab(s), Oral, BID, Refills(s) 0 Start Date: 05/22/17 Status: Ordered Repeat number: 1 Start: 05-22-2017 take 1 tablet by marcus twice daily pindolol 5 mg oral tablet 5 mg = 1 tab(s), Oral, BID, Refills(s) 0 Start Date: 05/22/17 Status: Ordered sertraline 50 mg oral tablet (9 sources) Serotonin Reuptake Inhibitor Start: 09-21-2023 Sertraline Active MG PO September 21, 2023 12:00am Start: 11-22-2021 End: 09-12-2024 take 1 tablet by mouth once daily Sertraline 50 mg tablet Active 50 MG PO Daily September 12, 2024 1:34pm Start: 11-10-2017 sertraline 100 mg Tab 50 mg = 0.5 tab(s), Oral, Bedtime, Refills(s) 0 Start Date: 11/10/17 Status: Ordered Start: 10-14-2012 Sertraline HCl 50MG Sertraline HCl 50MG, # 0.00, 10/14/2012, No Refill. Active for 0 *Pick strength-form from [employer] for eRX* October, Active Completed/Discontinued Medications Medication Drug Class(es) Dates Sig (Normalized) Sig (Original) hydrocortisone 10 mg/ml / neomycin 3.5 mg/ml / polymyxin b 23635 unt/ml otic suspension (1 source) Aminoglycoside Antibacterial, Polymyxin-class Antibacterial, Corticosteroid Start: 09-21-2023 End: 09-12-2024 Neomycin-Polymyxi n-Hc 3.5-10,000-1 mg/mL-unit/mL-% drops,suspension Discontinued 3 DROPS EAR-BOTH Three times daily September 21, 2023 12:00am September 12, 2024 1:33pm predniSONE 20 mg oral tablet (1 source) Start: 09-21-2023 End: 09-12-2024 take 1 tablet by mouth twice daily Prednisone 20 mg tablet Discontinued 20 MG PO Twice daily 10 September 21, 2023 12:00am September 12, 2024 1:34pm Problems Active Problems Problem Classification Problem Date Documented Date Episodic/Chronic Abdominal pain (9 sources) Left lower quadrant pain; Translations: [Left lower quadrant pain] Onset: 10-18-2021 Episodic Acute and chronic tonsillitis (3 sources) Hypertrophy of tonsils; Translations: [Hypertrophy of tonsils] Onset: 01-08-2018 Chronic Acute bronchitis (3 sources) Acute bronchitis; Translations: [Acute bronchitis due to other specified organisms] Episodic Anxiety disorders (9 sources) Generalized anxiety disorder; Translations: [Anxiety disorder] Onset: 07-08-2017 Resolved: 10-23-2021 09-21-2023 Chronic Bacterial infection; unspecified site (2 sources) Other specified bacterial agents as the cause of diseases classified elsewhere Episodic Cardiac dysrhythmias (9 sources) Tachycardia, unspecified; Translations: [Palpitations] Onset: 05-22-2017 Resolved: 10-23-2021 Episodic Diseases of white blood cells (2 sources) Lymphocytosis (symptomatic); Translations: [Lymphocytosis] Onset: 04-11-2016 11-22-2021 Chronic Essential hypertension (11 sources) Hypertensive disorder; Translations: [Essential (primary) hypertension] Onset: 02-24-2017 Resolved: 10-23-2021 09-23-2017 Chronic Fluid and electrolyte disorders (1 source) Hypokalemia; Translations: [Hypokalemia] Onset: 10-01-2024 Episodic Genitourinary symptoms and ill-defined conditions (7 sources) Dysuria; Translations: [Lrary hematuria] Onset: 01-17-2022 Episodic Headache; including migraine (4 sources) Headache; including migraine; Translations: [HEADACHE UNSPECIFIED] Onset: 09-22-2022 Inflammatory diseases of female pelvic organs (4 sources) Chronic salpingitis; Translations: [Chronic salpingitis] Onset: 10-18-2021 Chronic Inflammatory diseases of female pelvic organs (3 sources) Acute vaginitis; Translations: [Acute vaginitis] Episodic Mood disorders (1 source) Mood disorder 11-22-2021 Chronic Nonspecific chest pain (6 sources) Chest pain; Translations: [Chest pain, unspecified] Onset: 07-28-2018 Episodic Other aftercare (1 source) Other intermediate manager (current) drug therapy; Translations: [OTH RETIREMENT CURRENT DRUG THERAPY] Onset: 09-24-2022 Episodic Other aftercare (3 sources) History and physical examination, follow-up; Translations: [Encounter for follow-up examination after completed treatment for conditions other than malignant neoplasm] Episodic Other connective tissue disease (3 sources) Calcaneal [...] Translations: [Pain in right leg] Episodic Other endocrine disorders (1 source) 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 Other female genital disorders (1 source) Abnormal uterine and vaginal bleeding, unspecified; Translations: [ABNORMAL UTERINE VAGINAL BLEED UNS] Onset: 11-30-2021 Chronic Other female genital disorders (3 sources) Abnormal uterine bleeding; Translations: [Abnormal uterine and vaginal bleeding, unspecified] Chronic Other female genital disorders (1 source) History of gynecological disorder 11-22-2021 Episodic Other non-traumatic joint disorders (3 sources) Ankle [...] (BMI) 40.0-44.9, adult] Onset: 07-08-2017 Chronic Other nutritional; endocrine; and metabolic disorders (1 source) Obesity 11-22-2021 Chronic Other screening for suspected conditions (not [...] [Acute upper respiratory infection] Onset: 09-14-2018 Episodic Otitis media and related conditions (5 sources) Acute secretory otitis media; Translations: [Other acute nonsuppurative otitis media, right ear] Onset: 02-24-2017 09-12-2024 Episodic Ovarian cyst (3 sources) Cyst of [...] Problem Classification Problem Date Documented Date Episodic/Chronic Conditions associated with dizziness or vertigo (3 sources) Dizziness and giddiness; Translations: [Dizziness and giddiness] Onset: 07-08-2017 Episodic Immunizations and screening for infectious disease (4 sources) Encounter for screening for human papillomavirus (HPV); Translations: [Vaccination given] Onset: 03-16-2018 Resolved: 10-23-2021 Episodic Other and unspecified benign neoplasm (3 [...] Translations: [Epistaxis] Onset: 09-29-2017 Resolved: 06-23-2018 Episodic Residual codes; unclassified (1 source) Family [...] IN THORACIC SPINE] Onset: 01-10-2022 Episodic Syncope (5 sources) Syncope and collapse; Translations: [Syncope and [...] Value Interpretation Reference Range Facility Office Visiton 10-06-2024 Follow-up visit [id number] Nettie Michael 1975 F Date Provider Department Center 10/06/2024 [id number] STYLES [facility] Family History Problem Relation Age of Onset No Known Problems Mother Cancer Father Cancer Brother Family Status - Relation Status Age at Mother Alive Father Sister Alive Brother Level of Service:77801 [place] OFFICE/OUTPATIENT ESTABLISHED LOW MDM 20 MIN Normal [facility] XR Chest Single Viewon 10-02 XR Chest Single View Exam Date/Time: 10/01/2024 20:31 EDT Reason for Exam: Chest pain Report IMPRESSION: NO RADIOGRAPHIC EVIDENCE OF ACUTE INTRATHORACIC PROCESS. EXAM: XR Chest Single View History: Chest pain Technique: Portable AP view of the chest. Comparison: 11/09/2017 Findings: The cardiomediastinal silhouette is within normal limits. No pneumothorax, pleural effusion, or consolidation. No acute osseous abnormality. Ordering Provider: Jeffy Das FINAL REPORT Dictated: 10/02/2024 8:28 am Blayne Romero DO Signed (Electronic Signature): 10/02/2024 8:28 am Signed by: Blayne Romero DO Transcribed by: RAMANDEEP Technologist: KINA [facility] BMPon 10-01-2024 Anion gap [Moles/Vol] 11 mmol/L Normal 6-16 [facility] Comment on above: Performed By: #### 2 [id number] #### [facility] [address] [place] [address] Calcium [Mass/Vol] 9.7 mg/dL Normal 8.9-11.1 [facility] Comment on above: Performed By: #### 2 [id number] #### [facility] [address] [place] [address] Chloride [Moles/Vol] 101 mmol/L Normal 101-111 [facility] Comment on above: Performed By: #### 2 [id number] #### [facility] [address] [place] [address] CO2 [Moles/Vol] 28 mmol/L Normal 21-31 [facility] Comment on above: Performed By: #### 2 [id number] #### [facility] [address] [place] [address] Creatinine [Mass/Vol] 0.6 mg/dL Normal 0.5-1.3 [facility] Comment on above: Performed By: #### 2 [id number] #### [facility] [address] [place] [address] Glucose [Mass/Vol] 112 mg/dL Normal 55-199 [facility] Comment on above: Performed By: #### 2 [id number] #### [facility] [address] [place] [address] Potassium [Moles/Vol] 3.2 mmol/L Low 3.5-5.3 [facility] Comment on above: Performed By: #### 2 [id number] #### [facility] [address] [place] [address] Sodium [Moles/Vol] 137 mmol/L Normal 135-145 [facility] Comment on above: Performed By: #### 2 [id number] #### [facility] [address] [place] [address] Urea nitrogen [Mass/Vol] 17 mg/dL Normal 5-21 [facility] Comment on above: Performed By: #### 2 [id number] #### [facility] [address] [place] [address] Urea nitrogen/Creatinine [Mass ratio] 28 No Units High 10-20 [facility] Comment on above: Performed By: #### 2 [id number] #### [facility] [address] [place] [address] CBC w/ Auto Diffon 10-01- 5 Basophils/100 WBC (Bld) 1.4 % Normal 0.0-2.0 [facility] Comment on above: Performed By: #### 2 [id number] #### [facility] [address] [place] [address] Basophils/Leukocytes Auto (Bld) [Pure # fraction] 0.2 E9/L Normal 0.0-0.2 [facility] Comment on above: Performed By: #### 2 [id number] #### [facility] [address] [place] [address] Eosinophils (Bld) [#/Vol] 0.2 E9/L Normal 0.0-0.5 [facility] Comment on above: Performed By: #### 2 [id number] #### [facility] [address] [place] [address] Eosinophils/100 WBC (Bld) 1.6 % Normal 0.0-8.0 [facility] Comment on above: Performed By: #### 2 [id number] #### [facility] [address] [place] [address] Erythrocyte distribution width (RBC) [Ratio] 13.4 % Normal 10.9-14.2 [facility] Comment on above: Performed By: #### 2 [id number] #### [facility] [address] [place] [address] Hematocrit (Bld) [Volume fraction] 38.1 % Normal 34.0-46.0 [facility] Comment on above: Performed By: #### 2 [id number] #### [facility] [address] [place] [address] Hemoglobin (Bld) [Mass/Vol] 13.2 g/dL Normal 12.0-16.0 [facility] Comment on above: Performed By: #### 2 [id number] #### [facility] [address] [place] [address] Lymphocytes (Bld) [#/Vol] 3.9 E9/L Normal 1.0-4.0 [facility] Comment on above: Performed By: #### 2 [id number] #### [facility] [address] [place] [address] Lymphocytes/100 WBC (Bld) 30.4 % Normal 14.0-50.0 [facility] Comment on above: Performed By: #### 2 [id number] #### [facility] [address] [place] [address] MCH (RBC) [Entitic mass] 28.1 pg Normal 27.0-34.0 [facility] Comment on above: Performed By: #### 2 [id number] #### [facility] [address] [place] [address] MCHC (RBC) [Mass/Vol] 34.5 g/dL Normal 31.4-36.0 [facility] Comment on above: Performed By: #### 2 [id number] #### [facility] [address] [place] [address] MCV (RBC) [Entitic vol] 81.5 fL Normal 80.0-100.0 [facility] Comment on above: Performed By: #### 2 [id number] #### [facility] [address] [place] [address] Monocytes (Bld) [#/Vol] 0.7 E9/L Normal 0.2-1.0 [facility] Comment on above: Performed By: #### 2 [id number] #### [facility] [address] [place] [address] Neutrophils (Bld) [#/Vol] 7.9 E9/L High 2.0-7.5 [facility] Comment on above: Performed By: #### 2 [id number] #### [facility] [address] [place] [address] Neutrophils/100 WBC (Bld) 60.9 % Normal 36.0-75.0 [facility] Comment on above: Performed By: #### 2 [id number] #### [facility] [address] [place] [address] Platelet mean volume (Bld) [Entitic vol] 8.4 fL Normal 6.4-10.8 [facility] Comment on above: Performed By: #### 2 [id number] #### [facility] [address] [place] [address] Platelets (Bld) [#/Vol] 443.0 E9/L Normal 150.0-500.0 [facility] Comment on above: Performed By: #### 2 [id number] #### [facility] [address] [place] [address] RBC (Bld) [#/Vol] 4.7 E12/L Normal 4.3-5.9 [facility] Comment on above: Performed By: #### 2 [id number] #### [facility] [address] [place] [address] WBC corrected for nucl RBC Auto (Bld) [#/Vol] 13.0 E9/L High 4.0-11.0 [facility] Comment on above: Performed By: #### 2 [id number] #### [facility] [address] [place] [address] CHEMISTRYOrdered By: SYSTEM SYSTEM on 10-01-2024 Troponin HS 2.80 pg/mL Low 10.10 - 27.10 pg/mL [facility] Comment on above: Interpretive Data: T he 95% CI (Confidence Interval) PPV (Positive Predictive Value) for myocardial infarction in females is 38 pg/mL, in males 51 pg/mL. The results should be used in conjunction with clinical conditions of myocardial infarction. (Access High Sensitivity Troponin I Instructions For Use, [employer], January 2018) Anion gap [Moles/Vol] 11 mmol/L Normal 6 - 16 mEq/L [facility] Calcium [Mass/Vol] 9.7 mg/dL Normal 8.9 - 11. 1 mg/dL [facility] Chloride [Moles/Vol] 101 mmol/L Normal 101 - 1 11 mmol/L [facility] CO2 [Moles/Vol] 28 mmol/L Normal 21 - 31 mmol/L [facility] Creatinine [Mass/Vol] 0.6 mg/dL Normal 0.5 - 1.3 mg/dL [facility] eGFR 110 mL/min/1.73 m2 Normal >=59mL/mi n/ 1.73 m2 [facility] Glucose [Mass/Vol] 112 mg/dL Normal 55 - 199 mg/dL [facility] Magnesium [Mass/Vol] 2.0 mg/dL Normal 1.3 - 2 .4 mg/dL [facility] Potassium [Moles/Vol] 3.2 mmol/L Low 3.5 - 5.3 mmol/L [facility] Sodium [Moles/Vol] 137 mmol/L Normal 135 - 145 mmol/L [facility] Troponin HS 3.20 pg/mL Low 10.10 - 27.10 pg/mL [facility] Comment on above: Interpretive Data: T he 95% CI (Confidence Interval) PPV (Positive Predictive Value) for myocardial infarction in females is 38 pg/mL, in males 51 pg/mL. The results should be used in conjunction with clinical conditions of myocardial infarction. (Access High Sensitivity Troponin I Instructions For Use, [employer], January 2018) TSH Qn 1.60 m[IU]/L Normal 0.34 - 5.60 mcIU/mL [facility] Urea nitrogen [Mass/Vol] 17 mg/dL Normal 5 - 21 mg/dL [facility] Urea nitrogen/Creatinine [Mass ratio] 28 mg/mg High 10 - 20 [facility] COAGULATIONOrdered By: Wendy Moon on 10-01-2024 aPTT Coag (PPP) [Time] 33.6 s Normal 25.1 - 36.5 second(s) [facility] [place] [facility] Comment on above: Interpretive Data: Luis Armando tse 15 days - 4 weeks 1 - 5 months 6 - 11 months 1 - 5 years 6 - 10 years 11 - 17 years PTT Mean: 35.4 (27.6-45.6) Mean: 33.5 (24.8-40.7) Mean: 32.4 (25.1-40.7) Mean: 31.6 (24.0-39.2) Mean: 31.6 (26.9-38.7) Mean: 31.0 (24.6-38.4) Pediatric Reference ranges were obtained from a study by sadi Nick prepared from 1437 samples obtained at 7 different centers using the same coagulation reagent and instrumentation as [facility] [place]. Currently there are no coagulation studies available worldwide for children to 14 days, and no normal ranges. Heparin therapeutic range (represented by Anti-Factor Xa activity of 0.2 - 0.4 U/mL) corresponds to PTT of 56.6 - 109.0 sec. INR Coag (PPP) [Relative time] 1.06 {INR} Invalid Interpretation Code [facility] [place] [facility] Comment on above: Interpretive Data: I NR results are specifically intended to assess patients stabilized on long-term Anticoagulation therapy suggested INR s Less Intensive Anticoagulation 2.0 3.0 Conventional Range 3.0 4.5 PT Coag (PPP) [Time] 11.9 s Normal 9.4 - 1 2.5 second(s) [facility] [place] [facility] Comment on above: Interpretive Data: 1 5 days - 4 weeks 1 - 5 months 6 -11 months 1-5 years 6-10 years 11 -17 years Mean: 11.2 (9.5-12.6) Mean: 11.0 (9.7-12.8) Mean: 11.0 (9.8-13.0) Mean: 11.3 (9.9-13.4) Mean: 11.7 (10.0-14.6) Mean: 11.8 (10.0 - 14.1) Pediatric Reference ranges were obtained from a study by sadi Nick prepared from 1437 samples obtained at 7 different centers using the same coagulation reagent and instrumentation as [facility] [place]. Currently there are no coagulation studies available worldwide for children to 14 days, and no normal ranges. ED Clinical Summaryon 2024 ED Clinical Summary ED Clinical Summary [place] [id number] ED Clinical Summary Person Information Name: GLADIS MICHAEL [facility] Age: 49 Years : 1975 Sex: Female Language: Barbadian PCP: JOVITA WAITE CNP Marital Status: Visit Id: Visit Reason: Palpitations; Dizziness; Chest pain; CHEST PAIN AND DIZZY Speciality: Acuity: 3 Enc Type: Emergency Med Service: Emergency Arrival: 10/01/2024 19:54:47 Discharge: 10/01/2024 22:11:45 LOS: 000 02:17 Checkin: 10/01/2024 19:54:47 Checkout: 10/01/2024 22:11:45 Dispo Type: Home (Routine DC) EVENTS: Event Name Event Status Request Date/Time Start Date/Time Complete Date/Time Arrive Complete 10/01/2024 19:54:47 10/01/2024 19:54:47 10/01/2024 19:54:47 Document Home Meds Request 10/01/2024 19:54:47 Triage Complete 10/01/2024 19:54:47 10/01/2024 20:03:46 10/01/2024 20:03:46 EKG Complete 10/01/2024 19:57:21 10/01/2024 20:02:26 Bed Assign Complete 10/01/2024 19:58:29 10/01/2024 19:58:29 10/01/2024 19:58:29 Dr Exam Complete 10/01/2024 19:58:29 10/01/2024 19:59:50 10/01/2024 19:59:50 RN Exam Complete 10/01/2024 19:58:29 10/01/2024 20:22:01 10/01/2024 20:22:01 Registration Complete 10/01/2024 19:59:50 10/01/2024 20:02:42 10/01/2024 20:02:42 Reg Complete Request 10/01/2024 20:02:42 Reg Bed Request Complete 10/01/2024 20:02:42 10/01/2024 20:02:42 10/01/2024 20:02:42 Pending Labs Complete 10/01/2024 20:10:08 10/01/2024 21:55:23 Lab Complete 10/01/2024 20:10:08 10/01/2024 20:45:01 Patient Care Request 10/01/2024 20:10:08 RT Request 10/01/2024 20:10:08 X-Ray Complete 10/01/2024 20:10:08 10/01/2024 20:16:38 10/01/2024 20:31:28 Meds Admin Complete 10/01/2024 20:18:53 10/01/2024 20:39:06 Pending Labs Complete 10/01/2024 20:20:24 10/01/2024 20:20:24 10/01/2024 20:45:01 Lab Complete 10/01/2024 20:20:24 10/01/2024 20:20:24 10/01/2024 20:45:01 Pending Labs Complete 10/01/2024 20:25:48 10/01/2024 20:25:48 10/01/2024 20:25:48 Wet Read Request 10/01/2024 20:31:28 Meds Admin Complete 10/01/2024 20:46:07 10/01/2024 21:06:17 Discharge Complete 10/01/2024 21:58:30 10/01/2024 22:11:57 10/01/2024 22:11:57 Transfer Complete 10/01/2024 22:11:57 10/01/2024 22:11:57 10/01/2024 22:11:57 ADDRESS: [address] [place] [phone] PHYS DOC NOTES: MEDICAL INFORMATION: Prescriptions Given: Medications to Continue with No Changes Other Medications amlodipine (amLODIPine 5 mg Tab) 1 Tablets By Mouth every day. lisinopril (lisinopril 20 mg Tab) 1 Tablets By Mouth 2 times a day. meclizine (meclizine 25 mg Tab) 1 Tablets By Mouth 3 times a day. pindolol (pindolol 5 mg oral tablet) 2 Tablets By Mouth 2 times a day. sertraline (Zoloft 50 mg Tab) 1 Tablets By Mouth every day. PATIENT EDUCATION INFORMATION: Instructions: Palpitations, Dgfr-hl-Hnsg; Nonspecific Chest Pain, Adult, Wqxm-uq-Qpbg; Hypokalemia Follow up: With: Address: When: JOVITA WAITE [address] [facility] [place] [address] [phone] [employer] (1) In 3 days 10/04/2024 Comments: Please follow-up with your primary care doctor for further evaluation management. Return to the ED for any new or worsening symptoms or if you have any concerns. DIAGNOSIS: Chest pain; Hypokalemia; Palpitations [facility] ED Note-Physicianon 10-02-19 ED Note-Physician ED Note-Physician Basic Information Time Seen: Jeffy Das DO 10/01/2024 19:59 Chief Complaint Pt arrives to ED from home with c/o left sided CP for last couple weeks, worsening today then to the center. Also states dizziness intermittent since last weekend. States intermittent episodes of heart fluttering. History of Present Illness Patient is a 49-year-old female with past medical history of hypertension presenting to the ED for evaluation of left-sided chest pain, intermittent dizziness and intermittent palpitations. Patient states the pain started several weeks ago, states has been intermittent initially thought it was secondary to a viral respiratory infection. Patient states today she was driving and noted the pain more in the center of her and just inside of the left side of her chest. Describes the pain as sharp. Denies any associated shortness of breath nausea or vomiting. Patient is also been having some intermittent dizziness since last weekend, feeling lightheaded. No family history of heart disease. Review of Systems A 10 point review of systems is negative except as noted above. Medical and Surgical History: Reviewed and noted Social history: Lives at home Tobacco: Denies Physical Exam Vitals & Measurements T: 36.8 ???C(Oral) HR: 79(Peripheral) RR: 18 BP: 144/82 SpO2: 99% HT: 160 cm WT: 111.9 kg BMI: 43.71 General: Well developed, non toxic appearing, no acute distress HEENT: Head atraumatic, Mucosa moist, hearing grossly normal Neck: No JVD, tracheal deviation Cardiac: Regular rate, rhythm, no murmurs, or gallops, 2+ radial pulses Respiratory: Lungs clear to auscultation B/L, normal respiratory effort Abdomen: Soft non tender, no rebound or guarding, no peritoneal signs Extremities: No edema noted in the LE B/L, no tenderness to palpation Neurologic: Alert and oriented, speech clear Skin: No rashes or lesions Psych: Appropriate mood and behavior Medical Decision Making MEDICAL DECISION MAKING Number and Complexity of Problems Differential Diagnosis: [] [facility] Data External documents reviewed: [] My EKG interpretation: [] My CT interpretation: [] My X-ray interpretation: [] My Ultrasound interpretation: [] Decision rules/scores evaluated: Heart Score for Major Cardiac Event History: Example factors for history - pattern of chest pain, onset, duration, relation with exercise, stress or cold, localization, concominant symptoms. reaction to sublingual nitrates, [] Highly suspicious +2 [] Moderately suspicious +1 [X] Slightly suspicious 0 EKG: [] Significant ST-Depression +2 [] Non specific repolarization disturbance +1 [X] Normal 0 Age: [] >= 65 +2 [X] 45-65 + 1 [] <45 0 Risk Factors: (HLD, HTN, DM, Cigarette Smoking, Pos Family Hx, Obesity) [] >3 risk factors or hx of atheroslerotic disease + 2 [X] 1-2 risk factors + 1 [] No risk factors known 0 Troponin: [] >= 3X normal + 2 [] 1-3X normal + 1 [X] <= Normal 0 ---- [X] 0-3 Points 0.9 - 1.7% risk of major adverse cardiac event in 6 weeks [] 4-6 Points 12-16.6% risk of major adverse cardiac event in 6 weeks [] 7-10 Points 50-65% risk of major adverse cardiac event in 6 weeks ---- [] 0-3 Points with 2 sets of negative cardiac markers <1% risk of major adverse cardiac event in 30 days. ---- Discussed with: [] Treatment and Disposition ED Course: Patient is a 49-year-old female presenting to the ED for evaluation of chest pain, dizziness, palpitations. Patient nontoxic and on arrival, no acute distress. EKG without any acute abnormalities. Due to her complaints cardiac workup is obtained patient is given Toradol in the ED for treatment of her symptoms. Patient's laboratory evaluation is unremarkable as noted and I have a potassium of 3.2, troponins are negative x 2. On reevaluation patient is feeling improved. Patient's heart score is a 2 therefore believe she is stable for discharge home. Patient is comfortable with this plan. She is to follow-up with her primary care doctor for further evaluation management. She is to return to the ED for any new or worsening symptoms. Shared decision making: [] Code status: [] Assessment/Plan Chest pain (R07.9: Chest pain, unspecified) Hypokalemia (E87.6: Hypokalemia) Palpitations (R00.2: Palpitations) Orders: ketorolac, 30 mg = 1 mL, Injection, IV Push, Once, Stop date 10/01/24 20:18:00 EDT, STAT, Start date 10/01/24 20:18:00 EDT, 10/01/24 20:18:00 EDT potassium chloride, 40 mEq = 2 tab(s), Tab-ER, Oral, Once, Stop date 10/01/24 20:45:00 EDT, STAT, Start date 10/01/24 20:45:00 EDT, 10/01/24 20:45:00 EDT Basic Metabolic Panel CBC w/ Auto Diff ECG 12 Lead Adult ED Cardiac Monitoring eGFR Extra SST Tube Magnesium Level Oxygen Saturation Oxygen The (more content not included)... [facility] Comment on above: Result Comment: Elec tronically Signed By: Jeffy Das DO\.br\Date and Time Signed: 10/01/24 21:59 EDT ED Patient Summaryon 025 ED Patient Summary ED Patient Summary [place] [id number] Patient Discharge Instructions Person Information Name: GLADIS MICHAEL Age: 49 Years Arrival Date: 10/01/2024 19:54:47 Discharge Diagnosis: Chest pain; Hypokalemia; Palpitations Primary Care Physician: JOVITA WAITE CNP Provider Information Primary Provider: Jeffy Das DO Advanced Policy Director:None The exam and treatment you received in the Emergency Department were for an urgent problem and are not intended as complete care. It is important that you follow up with a doctor, nurse practitioner, or physician???s customer relations assistant for ongoing care. If your symptoms become worse or you do not improve as expected and you are unable to reach your usual health care provider, you should return to the Emergency Department. We are available 24 hours a day. GLADIS MICHAEL has been given the following list of patient education materials, prescriptions and follow-up instructions: Follow-up Instructions: With: Address: When: JOVITA WAITE [address] [address] [phone] Business (1) In 3 days 10/04/2024 Comments: Please follow-up with your primary care doctor for further evaluation management. Return to the ED for any new or worsening symptoms or if you have any concerns. In the event that this physician does not participate in your insurance network, please consult with your insurance company to find a nearby participating provider. Patient Education Materials: Palpitations, Svdy-wh-Bvzt; Nonspecific Chest Pain, Adult, Vtyi-my-Appj; Hypokalemia A MESSAGE TO ALL PATIENTS REGARDING OPIOIDS PRESCRIPTION OPIOIDS: WHAT YOU NEED TO KNOW Prescription opioids can be used to help relieve qhvcuaux-ef-kesgil pain and are often prescribed following a [...] as well, even when taken as directed: ??? Tolerance???meaning you might need to take more of the medication for the same pain relief ??? Physical dependence???meaning you have symptoms of withdrawal when a medication is stopped ??? Increased sensitivity to pain ??? Constipation ??? Nausea, vomiting, and dry mouth ??? Sleepiness and dizziness ??? Confusion ??? Depression ??? Low levels of testosterone that can result in lower sex drive, energy, and strength ??? Itching and sweating RISKS ARE GREATER WITH: ??? History of drug misuse, substance use disorder, or overdose ??? Mental health conditions (such as depression or anxiety) ??? Sleep apnea ??? Older age (65 years and older) ??? Avoid alcohol while taking prescription opioids. Also, unless specifically advised by your health care provider, medications to avoid include: ??? Benzodiazepines (such as Xanax or Valium) ??? Muscle relaxants (such as Soma or Flexeril) ??? Hypnotics (such as Ambien or Lunesta) ??? Other prescription opioids KNOW YOUR OPTIONS Talk to your health care provider about ways to manage your pain that don???t involve prescription opioids. Some of these options may actually work better and have fewer risks and side effects. Options may include: ??? Pain relievers such as acetaminophen, ibuprofen, and naproxen ??? Some medication that are also used for depression or seizures ??? Physical therapy and exercise ??? Cognitive behavioral therapy, a psychological, goal-directed approach, in which patients learn how to modify physical, behavioral, and emotional triggers of pain and stress. IF YOU ARE PRESCRIBED OPIOIDS FOR PAIN: ??? Never take opioids in greater amounts or more often than prescribed. ??? Follow up with your primary health care provider. o Work together to create a plan on how to manage your pain. o Talk about ways to help manage your pain that don???t involve prescription opioids. o Talk about any and all concerns and side effects. ??? Help prevent misuse and abuse o Never sell or share prescription opioids. o Never use another person???s prescription opioids. ??? Store prescription opioids in a secure place and out of reach of others (this may include visitors, children, friends, and family). ??? Safely dispose of unused prescription opioids: Find your community drug take-back program or your pharmacy mail-back program, or flush them down the toilet, following guidance from the Food and D (more content not included)... [facility] HEMATOLOGYOrdered By: SYSTEM SYSTEM on 10-01-2024 Basophils/100 WBC (Bld) 1.4 % Normal 0.0 - 2.0 % Remisol Heme Basophils/Leukocytes Auto (Bld) [Pure # fraction] 0.2 E9/L Normal 0.0 - 0.2 E9/L Remisol Heme Eosinophils (Bld) [#/Vol] 0.2 E9/L Normal 0.0 - 0.5 E9/L Remisol Heme Eosinophils/100 WBC (Bld) 1.6 % Normal 0.0 - 8.0 % Remisol Heme Erythrocyte distribution width (RBC) [Ratio] 13.4 % Normal 10.9 - 14.2 % Remisol Heme Hematocrit (Bld) [Volume fraction] 38.1 % Normal 34.0 - 46.0 % Remisol Heme Hemoglobin (Bld) [Mass/Vol] 13.2 g/dL Normal 12.0 - 16.0 gm/dL Remisol Heme Lymphocytes (Bld) [#/Vol] 3.9 E9/L Normal 1.0 - 4.0 E9/L Remisol Heme Lymphocytes/100 WBC (Bld) 30.4 % Normal 14.0 - 50.0 % Remisol Heme MCH (RBC) [Entitic mass] 28.1 pg Normal 27.0 - 34.0 pg Remisol Heme MCHC (RBC) [Mass/Vol] 34.5 g/dL Normal 31.4 - 36.0 gm/dL Remisol Heme MCV (RBC) [Entitic vol] 81.5 fL Normal 80.0 - 100.0 fL Remisol Heme Monocytes (Bld) [#/Vol] 0.7 E9/L Normal 0.2 - 1.0 E9/L Remisol Heme Monocytes/100 WBC (Bld) 5.7 % Normal 4.0 - 14.0 % Remisol Heme Neutrophils (Bld) [#/Vol] 7.9 E9/L High 2.0 - 7.5 E9/L Remisol Heme Neutrophils/100 WBC (Bld) 60.9 % Normal 36.0 - 75.0 % Remisol Heme Platelet mean volume (Bld) [Entitic vol] 8.4 fL Normal 6.4 - 10.8 fL Remisol Heme Platelets (Bld) [#/Vol] 443.0 E9/L Normal 150.0 - 500.0 E9/L Remisol Heme RBC (Bld) [#/Vol] 4.7 E12/L Normal 4.3 - 5.9 E12/L Remisol Heme WBC corrected for nucl RBC Auto (Bld) [#/Vol] 13.0 E9/L High 4.0 - 11.0 E9/L Remisol Heme Magnesiumon 10-01-2024 Magnesium [Mass/Vol] 2.0 mg/dL Normal 1.3-2.4 [facility] Comment on above: Performed By: #### 2 [id number] #### [facility] [address] [place] [address] PT & PTTon 10-01-2024 aPTT Coag (PPP) [Time] 33.6 second(s) Normal 25.1-36.5 [facility] Comment on above: Result Comment: Para meter 15 days - 4 weeks 1 - 5 months 6 - 11 months 1 - 5 years 6 - 10 years 11 - 17 years PTT Mean: 35.4 (27.6-45.6) Mean: 33.5 (24.8-40.7) Mean: 32.4 (25.1-40.7) Mean: 31.6 (24.0-39.2) Mean: 31.6 (26.9-38.7) Mean: 31.0 (24.6-38.4) Pediatric Reference ranges were obtained from a study by Hussain Plascencia et al. prepared from 1437 samples obtained at 7 different centers using the same coagulation reagent and instrumentation as [facility]. Currently there are no coagulation studies available worldwide for children to 14 days, and no normal ranges. Heparin therapeutic range (represented by Anti-Factor Xa activity of 0.2 - 0.4 U/mL) corresponds to PTT of 56.6 - 109.0 sec. Performed By: #### 1 [id number] #### [facility] [address] [place] [address] INR Coag (PPP) [Relative time] 1.06 {INR} Invalid Interpretation Code [facility] Comment on above: Result Comment: INR results are specifically intended to assess patients stabilized on long-term Anticoagulation therapy suggested INR???s ???Less Intensive Anticoagulation??? 2.0 ??? 3.0 Conventional Range 3.0 ??? 4.5 Performed By: #### 1 [id number] #### [facility] [address] [place] [address] PT Coag (PPP) [Time] 11.9 second(s) Normal 9.4-12.5 [facility] Comment on above: Result Comment: 15 d ays - 4 weeks 1 - 5 months 6 -11 months 1- 5 years 6-10 years 11 -17 years Mean: 11.2 (9.5-12.6) Mean: 11.0 (9.7-12.8) Mean: 11.0 (9.8-13.0) Mean: 11.3 (9.9-13.4) Mean: 11.7 (10.0-14.6) Mean: 11.8 (10.0 - 14.1) Pediatric Reference ranges were obtained from a study by Hussain Plascencia et al. prepared from 1437 samples obtained at 7 different centers using the same coagulation reagent and instrumentation as [facility] [place]. Currently there are no coagulation studies available worldwide for children to 14 days, and no normal ranges. Performed By: #### 1 [id number] #### [facility] [address] [place] [address] TSH With T4fr Reflexon 04-25 -2025 TSH Qn 1.60 m[IU]/L Normal 0.34-5.60 [facility] Comment on above: Performed By: #### 1 [id number] #### [facility] [address] [place] [address] Troponin 0 Hr.on 10-01-2024 Troponin HS 3.20 pg/mL Low 10.10-27.10 [facility] Comment on above: Result Comment: The 95% CI (Confidence Interval) PPV (Positive Predictive Value) for myocardial infarction in females is 38 pg/mL, in males 51 pg/mL. The results should be used in conjunction with clinical conditions of myocardial infarction. (Access High Sensitivity Troponin I Instructions For Use, [employer], January 2018) Performed By: #### 1 [id number] #### [facility] [address] [place] [address] Troponin 1 Hr.on 10-01-2024 Troponin HS 2.80 pg/mL Low 10.10-27.10 [facility] Comment on above: Order Comment: 2111 Result Comment: The 95% CI (Confidence Interval) PPV (Positive Predictive Value) for myocardial infarction in females is 38 pg/mL, in males 51 pg/mL. The results should be used in conjunction with clinical conditions of myocardial infarction. (Access High Sensitivity Troponin I Instructions For Use, [employer], January 2018) Performed By: #### 1 [id number] #### [facility] [address] [place] [address] eGFRon 10-01-2024 eGFR 110 mL/min/1.73 m2 Normal >=59 [facility] Comment on above: Performed By: #### 1 [id number] #### [facility] [address] [place] [address] Office Visiton 04-08-2024 Follow-up visit [id number] Nettie Michael 1975 F Date Provider Department Center 04/08/2024 [facility] Family History Problem Relation Age of Onset No Known Problems Mother No Known Problems Father Family Status - Relation Status Age at Mother Father Level of Service:214[address] [place] OFFICE/OUTPATIENT ESTABLISHED MOD MDM 30 MIN Normal [facility] CBC AUTO DIFFon 09-23-2022 BASO # 0.1 103/ul Normal 0.0-0.1 [facility] Comment on above: Performed By: #### U AMIC #### [facility] [address] [place] [address] [address] Kristen Gambino Basophils/100 WBC (Bld) 0.9 % Normal 0.2-2.0 [facility] Comment on above: Performed By: #### U AMIC #### [facility] [address] [place] [address] [address] Kristen Gambino EO # 0.1 103/ul Normal 0.0-0.7 [facility] Comment on above: Performed By: #### U AMIC #### [facility] [address] [place] [address] [address] Kristen Gambino Eosinophils/100 WBC (Bld) 1.1 % Normal 0.9-7.0 [facility] Comment on above: Performed By: #### U AMIC #### [facility] [address] [place] [address] [address] Kristen Gambino Erythrocyte distribution width (RBC) [Ratio] 13.2 % Normal 11.0-15.0 [facility] Comment on above: Performed By: #### U AMIC #### [facility] [address] [place] [address] [address] Kristen Gambino Hematocrit (Bld) [Volume fraction] 41.2 % Normal 36.0-48.0 [facility] Comment on above: Performed By: #### U AMIC #### [facility] [address] [place] [address] [address] Kristen Gambino Hemoglobin (Bld) [Mass/Vol] 13.8 g/dL Normal 12.0-16.0 [facility] Comment on above: Performed By: #### U AMIC #### [facility] [address] [place] [address] [address] Kristen Gambino IG # 0.03 10e3/ul Normal 0.00-0.03 [facility] Comment on above: Performed By: #### U AMIC #### [facility] [address] [place] [address] [address] Kristen Gambino IG % 0.2 % Normal 0.0-0.5 [facility] Comment on above: Performed By: #### U AMIC #### [facility] [address] [place] [address] [address] Kristen Gambino LYMPH # 3.5 103/ul Normal 1.2-3.8 [facility] Comment on above: Performed By: #### U AMIC #### [facility] [address] [place] [address] Dr. Kristen Gambino Lymphocytes/100 WBC (Bld) 28.4 % Normal 20.5-60.0 [facility] Comment on above: Performed By: #### U AMIC #### [facility] [address] [place] [address] Dr. Kristen Gambino MANUAL DIFF REQ NO Normal [facility] Comment on above: Performed By: #### U AMIC #### [facility] [address] [place] [address] Dr. Kristen Gambino MCH (RBC) [Entitic mass] 27.8 pg Normal 26.7-34.0 [facility] Comment on above: Performed By: #### U AMIC #### [facility] [address] [place] [address] Dr. Kristen Gambino MCHC (RBC) [Mass/Vol] 33.5 g/dL Normal 29.9-35.2 [facility] Comment on above: Performed By: #### U AMIC #### [facility] [address] [place] [address] Dr. Kristen Gambino MCV (RBC) [Entitic vol] 82.9 fL Normal 81.0-99.0 [facility] Comment on above: Performed By: #### U AMIC #### [facility] [address] [place] [address] Dr. Kristen Gambino MONO # 0.9 103/ul Critically high 0.3-0.8 [facility] Comment on above: Performed By: #### U AMIC #### [facility] [address] [place] [address] [address] Kristen Gambino Monocytes/100 WBC (Bld) 7.0 % Normal 1.7-12.0 [facility] Comment on above: Performed By: #### U AMIC #### [facility] [address] [place] [address] [address] Kristen Gambino NEUT # 7.8 103/ul Critically high 1.4-6.5 [facility] Comment on above: Performed By: #### U AMIC #### [facility] [address] [place] [address] [address] Kristen Gambino Neutrophils/100 WBC (Bld) 62.4 % Normal 43.0-75.0 [facility] Comment on above: Performed By: #### U AMIC #### [facility] [address] [place] [address] [address] Kristen Gambino Platelet mean volume (Bld) [Entitic vol] 9.6 fL Normal 9.5-13.5 [facility] Comment on above: Performed By: #### U AMIC #### [facility] [address] [place] [address] [address] Kristen Gambino PLT 409 103/ul Normal 150-450 [facility] Comment on above: Performed By: #### U AMIC #### [facility] [address] [place] [address] [address] Kristen Gambino RBC 4.97 106/ul Normal 4.20-5.40 [facility] Comment on above: Performed By: #### U AMIC #### [facility] [address] [place] [address] [address] Kristen Gambino WBC 12.5 103/ul Critically high 4.0-11.0 [facility] Comment on above: Performed By: #### U AMIC #### [facility] [address] [place] [address] HEAD WO CONon [...] TERRI LANDAVERDE Date: 2022-09-22 23:00 Normal [facility] PROF 14(COMP METB)on 023 Albumin [Mass/Vol] 3.5 g/dL Normal 3.4-5.0 [facility] Comment on above: Performed By: #### C VDTBH #### [facility] [address] [place] [address] Dr. Kristen Gambino Albumin/Globulin [Mass ratio] 0.8 {ratio} Normal [facility] Comment on above: Performed By: #### C VDTBH #### [facility] [address] [place] [address] [address] Kristen Gambino ALP [Catalytic activity/Vol] 67 U/L Normal 46-116 [facility] Comment on above: Performed By: #### C VDTBH #### [facility] [address] [place] [address] [address] Kristen Gambino ALT [Catalytic activity/Vol] 29 U/L Normal 14-59 [facility] Comment on above: Performed By: #### C VDTBH #### [facility] [address] [place] [address] [address] Kristen Gambino Anion gap [Moles/Vol] 12.0 mmol/L Normal [facility] Comment on above: Performed By: #### C VDTBH #### [facility] [address] [place] [address] [address] Kristen Gambino AST [Catalytic activity/Vol] 17 U/L Normal 15-37 [facility] Comment on above: Performed By: #### C VDTBH #### [facility] [address] [place] [address] Dr. Kristen Gambino Bilirubin [Mass/Vol] 0.4 mg/dL Normal 0.2-1.0 [facility] Comment on above: Performed By: #### C VDTBH #### [facility] [address] [place] [address] Dr. Kristen Gambino Calcium [Mass/Vol] 9.5 mg/dL Normal 8.5-10.1 [facility] Comment on above: Performed By: #### C VDTBH #### [facility] [address] [place] [address] Dr. Kristen Gambino Chloride [Moles/Vol] 101 mmol/L Normal 98-107 [facility] Comment on above: Performed By: #### C VDTBH #### [facility] [address] [place] [address] Dr. Kristen Gambino CO2 [Moles/Vol] 28.9 mmol/L Normal 21.0-32.0 [facility] Comment on above: Performed By: #### C VDTBH #### [facility] [address] [place] [address] Dr. Kristen Gambino Creatinine [Mass/Vol] 0.60 mg/dL Normal 0.55-1.02 [facility] Comment on above: Performed By: #### C VDTBH #### [facility] [address] [place] [address] Dr. Kristen Gambino EGFR-AF ERITREAN >60 Normal >=60 [facility] Comment on above: Performed By: #### C VDTBH #### [facility] [address] [place] [address] [address] Kristen Gambino EGFR-NON AF ERITREAN >60 Normal >=60 [facility] Comment on above: Performed By: #### C VDTBH #### [facility] [address] [place] [address] [address] Kristen Gambino Globulin (S) [Mass/Vol] 4.5 g/dL Normal [facility] Comment on above: Performed By: #### C VDTBH #### [facility] [address] [place] [address] [address] Kristen Gambino Glucose [Mass/Vol] 108 mg/dL Critically high 74-106 [facility] Comment on above: Performed By: #### C VDTBH #### [facility] [address] [place] [address] Dr. Kristen Gambino Potassium [Moles/Vol] 3.9 mmol/L Normal 3.5-5.1 [facility] Comment on above: Performed By: #### C VDTBH #### [facility] [address] [place] [address] Dr. Kristen Gambino Protein [Mass/Vol] 8.0 g/dL Normal 6.4-8.2 [facility] Comment on above: Performed By: #### C VDTBH #### [facility] [address] [place] [address] Dr. Kristen Gambino Sodium [Moles/Vol] 138 mmol/L Normal 136-145 [facility] Comment on above: Performed By: #### C VDTBH #### [facility] [address] [place] [address] Dr. Kristen Gambino Urea nitrogen [Mass/Vol] 10.0 mg/dL Normal 7.0-18.0 [facility] Comment on above: Performed By: #### C VDTBH #### [facility] [address] [place] [address] Dr. Kristen Gambino Urea nitrogen/Creatinine [Mass ratio] 16.7 mg/mg Normal [facility] Comment on above: Performed By: #### C VDTBH #### [facility] [address] [place] [address] Dr. Kristen Gambino PAP ACOG PANEL 2: 30 to 65on 08-15-2022 . . Normal [facility] Comment on above: Result Comment: Perf ormed at: WB Performed By: #### [id number] #### [facility] [address] [place] [address] Dr. Kristen Gambino Age Gdln ACOG Testing 30-65 Normal [facility] Comment on above: Performed By: #### [id number] #### [facility] [address] [place] [address] Dr. Kristen Gambino DIAGNOSIS: Comment Normal [facility] Comment on above: Result Comment: NEGA TIVE FOR INTRAEPITHELIAL LESION OR MALIGNANCY. Performed at: WB Performed By: #### [id number] #### [facility] [address] [place] [address] Dr. Kristen Gambino HPV Aptima Negative Normal Negative [facility] Comment on above: Result Comment: This nucleic acid amplification test detects fourteen high-risk HPV types (16,18,31,33,35,39,45,51,52,56,58,59,66,68) without differentiation. Performed at: =G Performed By: #### [id number] #### [facility] [address] [place] [address] Dr. Kristen Gambino HPV Genotype Reflex Comment Normal [facility] Comment on above: Result Comment: Crit eria not met, HPV Genotype not performed. Performed at: WB Performed By: #### [id number] #### [facility] [address] [place] [address] Dr. Kristen Gambino Methodology: Comment Normal [facility] Comment on above: Result Comment: This liquid based ThinPrep(R) pap test was screened with the use of an image guided system. Performed at: WB Performed By: #### [id number] #### [facility] [address] [place] [address] Dr. Kristen Gambino Note: Comment Normal [facility] Comment on above: Result Comment: The Pap smear is a screening test designed to aid in the detection of premalignant and malignant conditions of the uterine cervix. It is not a diagnostic procedure and should not be used as the sole means of detecting cervical cancer. Both false-positive and false-negative reports do occur. . Performed at: WB Performed By: #### [id number] #### [facility] [address] [place] [address] Dr. Kristen Gambino Performed by: Comment Normal [facility] Comment on above: Result Comment: Nila Romo, [employer] (ASCP) Performed at: WB Performed By: #### [id number] #### [facility] [address] [address] [address] Kristen Gambino Specimen adequacy: Comment Normal [facility] Comment on above: Result Comment: Sati sfactory for evaluation. Endocervical and/or squamous metaplastic cells (endocervical component) are present. Performed at: WB Performed By: #### [id number] #### [facility] [address] [place] [address] Dr. Kristen Gambino US PELVIS AND TRANSVAGon [...] TERRI DELANEY Date: 2022-08-14 07:35 Normal [facility] CULTURE URINEon 08-10-2022 CULTURE URINE Isolate 1 Pseudomonas aeruginosa <10,000 cfu/mL of ORGANISM 1 Pseudomonas aeruginosa ANTIBIOTIC M.I.C RX STATUS Piperacillin/Tazobactam <=4 S F Ceftazidime 2 S F Imipenem 2 S F Amikacin <=2 S F Gentamicin <=1 S F Tobramycin <=1 S F Ciprofloxacin <=0.25 S F Levofloxacin 0.25 S F Normal [facility] Comment on above: Performed By: #### U AMIC #### [facility] [address] [place] [address] Dr. Kristen Gambino MG MAMM SCREEN 3D ARCHIE CADon 03-06-2022 MG MAMM SCREEN 3D ARCHIE CAD Patient: GLADIS MICHAEL Exam Date: 03/06/2022 : 1975 Gender:F Ordering : JOVITA [facility] Admission #: [id number] Family : Order #: [id number] CLICK HERE TO VIEW EXAM RADIOLOGY REPORT [...] brain cancer at age 41. LOCATION: [facility] BREAST COMPOSITION: Scattered areas fibroglandular density. FINDINGS: [...] Romo MD on 03/06/2022 at 14:25 Normal [facility] Covid-19 PCR (CVDTBH)on 01-07 SARS-CoV-2 (COVID-19) RNA GARTH+probe Ql (Unsp spec) Not detected Normal NOT DETECTED [facility] Comment on above: Result Comment: This test is not yet approved or cleared by the [place] FDA. When there are no FDA-approved or cleared tests available, and other criteria are met, FDA can make tests available under an emergency access mechanism called an Emergency Use Authorization (EUA). The EUA for this test is supported by the [employer] of Health and Human Service's (HHS's) declaration [...] SARS-CoV-2. Performed By: #### C VDTBH #### [facility] [address] [place] [id number] Kristen Gambino CULTURE URINEon 01-19-2022 CULTURE [...] F Tetracycline >=16 R F Normal [facility] Comment on above: Performed By: #### U AMIC #### [facility] [address] [place] [address] [id number] [address] Kristen Gambino CBC AUTO DIFFon 01-17-2022 BASO # 0.2 103/ul Critically high 0.0-0.1 [facility] Comment on above: Performed By: #### C BC #### [facility] [address] [address] [address] Kristen Gambino Basophils/100 WBC (Bld) 1.3 % Normal 0.2-2.0 [facility] Comment on above: Performed By: #### C BC #### [facility] [address] [address] [address] Kristen Gambino EO # 0.3 103/ul Normal 0.0-0.7 [facility] Comment on above: Performed By: #### C BC #### [facility] [address] [address] [address] Kristen Gambino Eosinophils/100 WBC (Bld) 1.9 % Normal 0.9-7.0 [facility] Comment on above: Performed By: #### C BC #### [facility] [address] [place] [address] Dr. Kristen Gambino Erythrocyte distribution width (RBC) [Ratio] 13.4 % Normal 11.0-15.0 [facility] Comment on above: Performed By: #### C BC #### [facility] [address] [place] [address] Dr. Kristen Gambino Hematocrit (Bld) [Volume fraction] 41.3 % Normal 36.0-48.0 [facility] Comment on above: Performed By: #### C BC #### [facility] [address] [place] [address] Dr. Kristen Gambino Hemoglobin (Bld) [Mass/Vol] 13.6 g/dL Normal 12.0-16.0 [facility] Comment on above: Performed By: #### C BC #### [facility] [address] [place] [address] Dr. Kristen Gambino IG # 0.07 10e3/ul Critically high 0.00-0.03 [facility] Comment on above: Performed By: #### C BC #### [facility] [address] [place] [address] Dr. Kristen Gambino IG % 0.4 % Normal 0.0-0.5 [facility] Comment on above: Performed By: #### C BC #### [facility] [address] [place] [address] Dr. Kristen Gambino LYMPH # 3.6 103/ul Normal 1.2-3.8 [facility] Comment on above: Performed By: #### C BC #### [facility] [address] [place] [address] Dr. Kristen Gambino Lymphocytes/100 WBC (Bld) 22.4 % Normal 20.5-60.0 [facility] Comment on above: Performed By: #### C BC #### [facility] [address] [place] [address] Dr. Kristen Gambino MANUAL DIFF REQ NO Normal [facility] Comment on above: Performed By: #### C BC #### [facility] [address] [place] [address] Dr. Kristen Gambino MCH (RBC) [Entitic mass] 27.8 pg Normal 26.7-34.0 [facility] Comment on above: Performed By: #### C BC #### [facility] [address] [place] [address] Dr. Kristen Gambino MCHC (RBC) [Mass/Vol] 32.9 g/dL Normal 29.9-35.2 [facility] Comment on above: Performed By: #### C BC #### [facility] [address] [place] [address] Dr. Kristen Gambino MCV (RBC) [Entitic vol] 84.5 fL Normal 81.0-99.0 [facility] Comment on above: Performed By: #### C BC #### [facility] [address] [place] [address] Dr. Kristen Gambino MONO # 1.1 103/ul Critically high 0.3-0.8 [facility] Comment on above: Performed By: #### C BC #### [facility] [address] [place] [address] Dr. Kristen Gambino Monocytes/100 WBC (Bld) 7.0 % Normal 1.7-12.0 [facility] Comment on above: Performed By: #### C BC #### [facility] [address] [place] [address] Dr. Kristen Gambino NEUT # 10.7 103/ul Critically high 1.4-6.5 [facility] Comment on above: Performed By: #### C BC #### [facility] [address] [address] [address] Kristen Gambino Neutrophils/100 WBC (Bld) 67.0 % Normal 43.0-75.0 [facility] Comment on above: Performed By: #### C BC #### [facility] [address] [place] [address] Dr. Kristen Gambino Platelet mean volume (Bld) [Entitic vol] 9.3 fL Critically low 9.5-13.5 [facility] Comment on above: Performed By: #### C BC #### [facility] [address] [place] [address] Dr. Kristen Gambino PLT 502 103/ul Critically high 150-450 [facility] Comment on above: Performed By: #### C BC #### [facility] [address] [place] [address] Dr. Kristen Gambino RBC 4.89 106/ul Normal 4.20-5.40 [facility] Comment on above: Performed By: #### C BC #### [facility] [address] [place] [address] Dr. Kristen Gambino WBC 16.0 103/ul Critically high 4.0-11.0 [facility] Comment on above: Performed By: #### C BC #### [facility] [address] [place] [address] Dr. Kristen Gambino PROF 14(COMP METB)on 022 Albumin [Mass/Vol] 4.0 g/dL Normal 3.4-5.0 [facility] Comment on above: Performed By: #### C MP #### [facility] [address] [place] [address] Dr. Kristen Gambino Albumin/Globulin [Mass ratio] 0.9 {ratio} Normal [facility] Comment on above: Performed By: #### C MP #### [facility] [address] [place] [address] Dr. Kristen Gambino ALP [Catalytic activity/Vol] 72 U/L Normal 46-116 [facility] Comment on above: Performed By: #### C MP #### [facility] [address] [place] [address] Dr. Kristen Gambino ALT [Catalytic activity/Vol] 45 U/L Normal 14-59 [facility] Comment on above: Performed By: #### C MP #### [facility] [address] [place] [address] Dr. Kristen Gambino Anion gap [Moles/Vol] 12.4 mmol/L Normal [facility] Comment on above: Performed By: #### C MP #### [facility] [address] [place] [address] Dr. Kristen Gambino AST [Catalytic activity/Vol] 31 U/L Normal 15-37 [facility] Comment on above: Performed By: #### C MP #### [facility] [address] [place] [address] Dr. Kristen Gambino Bilirubin [Mass/Vol] 0.6 mg/dL Normal 0.2-1.0 [facility] Comment on above: Performed By: #### C MP #### [facility] [address] [place] [address] Dr. Kristen Gambino Calcium [Mass/Vol] 9.2 mg/dL Normal 8.5-10.1 [facility] Comment on above: Performed By: #### C MP #### [facility] [address] [place] [address] Dr. Kristen Gambino Chloride [Moles/Vol] 101 mmol/L Normal 98-107 [facility] Comment on above: Performed By: #### C MP #### [facility] [address] [place] [address] Dr. Kristen Gambino CO2 [Moles/Vol] 26.3 mmol/L Normal 21.0-32.0 [facility] Comment on above: Performed By: #### C MP #### [facility] [address] [place] [address] Dr. Kristen Gambino Creatinine [Mass/Vol] 0.74 mg/dL Normal 0.55-1.02 [facility] Comment on above: Performed By: #### C MP #### [facility] [address] [address] [address] Kristen Gambino EGFR-AF ERITREAN >60 Normal >=60 [facility] Comment on above: Performed By: #### C MP #### [facility] [address] [address] [address] Kristen Gambino EGFR-NON AF ERITREAN >60 Normal >=60 [facility] Comment on above: Performed By: #### C MP #### [facility] [address] [address] [address] Kristen Gambino Globulin (S) [Mass/Vol] 4.4 g/dL Normal [facility] Comment on above: Performed By: #### C MP #### [facility] [address] [address] [address] Kristen Gambino Glucose [Mass/Vol] 106 mg/dL Normal 74-106 [facility] Comment on above: Performed By: #### C MP #### [facility] [address] [address] [address] Kristen Gambino Potassium [Moles/Vol] 3.7 mmol/L Normal 3.5-5.1 [facility] Comment on above: Performed By: #### C MP #### [facility] [address] [address] [address] Kristen Gambino Protein [Mass/Vol] 8.4 g/dL Critically high 6.4-8.2 [facility] Comment on above: Performed By: #### C MP #### [facility] [address] [address] [address] Kristen Gambino Sodium [Moles/Vol] 136 mmol/L Normal 136-145 [facility] Comment on above: Performed By: #### C MP #### [facility] [address] [address] [address] Kristen Gambino Urea nitrogen [Mass/Vol] 14.0 mg/dL Normal 7.0-18.0 [facility] Comment on above: Performed By: #### C MP #### [facility] [address] [address] [address] Kristen Gambino Urea nitrogen/Creatinine [Mass ratio] 18.9 mg/mg Normal [facility] Comment on above: Performed By: #### C MP #### [facility] [address] [place] [address] Dr. Kristen Gambino UA RANDOM W/MICROSCOPICon BACTERIA TRACE Abnormal NONE SEEN [facility] Comment on above: Performed By: #### U AMIC #### [facility] [address] [place] [address] Dr. Kristen Gambino Bilirubin Ql (U) Negative Normal NEGATIVE [facility] Comment on above: Performed By: #### U AMIC #### [facility] [address] [place] [address] Dr. Kristen Gambino CA OX CRYSTALS MODERATE Normal [facility] Comment on above: Performed By: #### U AMIC #### [facility] [address] [place] [address] Dr. Kristen Gambino CAST NONE SEEN Normal NONE SEEN [facility] Comment on above: Performed By: #### U AMIC #### [facility] [address] [place] [address] Dr. Kristen Gambino Clarity (U) CLEAR Normal CLEAR [facility] Comment on above: Performed By: #### U AMIC #### [facility] [address] [place] [address] Dr. Kristen Gambino Color (U) YELLOW Normal YELLOW [facility] Comment on above: Performed By: #### U AMIC #### [facility] [address] [place] [address] Dr. Kristen Gambino Crystals LM Nom (Urine sed) SEEN Abnormal NONE SEEN [facility] Comment on above: Performed By: #### U AMIC #### [facility] [address] [place] [address] Dr. Kristen Gambino Epithelial cells LM Ql (Urine sed) MODERATE Abnormal NONE SEEN /RARE [facility] Comment on above: Performed By: #### U AMIC #### [facility] [address] [address] [address] Kristen Gambino Glucose Ql (U) Negative Normal NEGATIVE [facility] Comment on above: Performed By: #### U AMIC #### [facility] [address] [address] [address] Kristen Gambino Hemoglobin Ql (U) Negative Normal NEGATIVE [facility] Comment on above: Performed By: #### U AMIC #### [facility] [address] [address] [address] Kristen Gambino Ketones Ql (U) Negative Normal NEGATIVE [facility] Comment on above: Performed By: #### U AMIC #### [facility] [address] [address] [address] Kristen Gambino LEUKOCYTES SMALL Abnormal NEGATIVE [facility] Comment on above: Performed By: #### U AMIC #### [facility] [address] [place] [address] Dr. Kristen Gambino MUCOUS SMALL Abnormal NONE SEEN [facility] Comment on above: Performed By: #### U AMIC #### [facility] [address] [place] [address] Dr. Kristen Gambino Nitrite Ql (U) Negative Normal NEGATIVE [facility] Comment on above: Performed By: #### U AMIC #### [facility] [address] [place] [address] Dr. Kristen Gambino pH (U) 5.0 [pH] Normal 5-9 [facility] Comment on above: Performed By: #### U AMIC #### [facility] [address] [place] [address] Dr. Kristen Gambino RBC NONE SEEN Abnormal 0-2 [facility] Comment on above: Performed By: #### U AMIC #### [facility] [address] [place] [address] Dr. Kristen Gambino SPEC GRAVITY >=1.030 Abnormal 1.005-<=1.0 25 [facility] Comment on above: Performed By: #### U AMIC #### [facility] [address] [place] [address] Dr. Kristen Gambino UA PROTEIN Negative Normal NEGATIVE/ TRACE [facility] Comment on above: Performed By: #### U AMIC #### [facility] [address] [address] [address] Kristen Gambino Urobilinogen Qn (U) 0.2 {Sonya'U}/dL Normal 0.2 - 1. 0 [facility] Comment on above: Performed By: #### U AMIC #### [facility] [address] [place] [address] Dr. Kristen Gambino WBC 5-10 Abnormal NONE SEEN [facility] Comment on above: Performed By: #### U AMIC #### [facility] [address] [place] [address] Dr. Kristen Gambino XR TSPINE 2 VIEWSon 01-12-20 XR TSPINE 2 VIEWS EXAMINATION: XR TSPI [...] by: TERRI DELANEY Date: 2022-01-11 07:20 Normal [facility] CBC AUTO DIFFon 10-26-2021 BASO # 0.1 103/ul Normal 0.0-0.1 [facility] Comment on above: Performed By: #### C BC #### [facility] [address] [place] [address] Dr. Kristen Gambino Basophils/100 WBC (Bld) 1.0 % Normal 0.2-2.0 [facility] Comment on above: Performed By: #### C BC #### [facility] [address] [place] [address] Dr. Kristen Gambino EO # 0.1 103/ul Normal 0.0-0.7 [facility] Comment on above: Performed By: #### C BC #### [facility] [address] [place] [address] Dr. Kristen Gambino Eosinophils/100 WBC (Bld) 1.0 % Normal 0.9-7.0 [facility] Comment on above: Performed By: #### C BC #### [facility] [address] [place] [address] Dr. Kristen Gambino Erythrocyte distribution width (RBC) [Ratio] 13.2 % Normal 11.0-15.0 [facility] Comment on above: Performed By: #### C BC #### [facility] [address] [place] [address] Dr. Kristen Gambino Hematocrit (Bld) [Volume fraction] 42.5 % Normal 36.0-48.0 [facility] Comment on above: Performed By: #### C BC #### [facility] [address] [place] [address] Dr. Kristen Gambino Hemoglobin (Bld) [Mass/Vol] 13.6 g/dL Normal 12.0-16.0 [facility] Comment on above: Performed By: #### C BC #### [facility] [address] [place] [address] Dr. Kristen Gambino IG # 0.05 10e3/ul Critically high 0.00-0.03 [facility] Comment on above: Performed By: #### C BC #### [facility] [address] [place] [address] Dr. Kristen Gambino IG % 0.4 % Normal 0.0-0.5 [facility] Comment on above: Performed By: #### C BC #### [facility] [address] [place] [address] Dr. Kristen Gambino LYMPH # 2.5 103/ul Normal 1.2-3.8 [facility] Comment on above: Performed By: #### C BC #### [facility] [address] [place] [address] Dr. Kristen Gambino Lymphocytes/100 WBC (Bld) 20.2 % Critically low 20.5-60.0 [facility] Comment on above: Performed By: #### C BC #### [facility] [address] [place] [address] Dr. Kristen aGmbino MANUAL DIFF REQ NO Normal [facility] Comment on above: Performed By: #### C BC #### [facility] [address] [place] [address] Dr. Kristen Gambino MCH (RBC) [Entitic mass] 27.2 pg Normal 26.7-34.0 [facility] Comment on above: Performed By: #### C BC #### [facility] [address] [place] [address] Dr. Kristen Gambino MCHC (RBC) [Mass/Vol] 32.0 g/dL Normal 29.9-35.2 [facility] Comment on above: Performed By: #### C BC #### [facility] [address] [place] [address] Dr. Kristen Gambino MCV (RBC) [Entitic vol] 85.0 fL Normal 81.0-99.0 [facility] Comment on above: Performed By: #### C BC #### [facility] [address] [place] [address] Dr. Kristen Gambino MONO # 0.7 103/ul Normal 0.3-0.8 [facility] Comment on above: Performed By: #### C BC #### [facility] [address] [place] [address] Dr. Kristen Gambino Monocytes/100 WBC (Bld) 5.7 % Normal 1.7-12.0 [facility] Comment on above: Performed By: #### C BC #### [facility] [address] [place] [address] Dr. Kristen Gmabino NEUT # 9.0 103/ul Critically high 1.4-6.5 [facility] Comment on above: Performed By: #### C BC #### [facility] [address] [place] [address] Dr. Kristen Gambino Neutrophils/100 WBC (Bld) 71.7 % Normal 43.0-75.0 [facility] Comment on above: Performed By: #### C BC #### [facility] [address] [place] [address] Dr. Kristen Gambino Platelet mean volume (Bld) [Entitic vol] 9.2 fL Critically low 9.5-13.5 [facility] Comment on above: Performed By: #### C BC #### [facility] [address] [place] [address] Dr. Kristen Gambino PLT 413 103/ul Normal 150-450 [facility] Comment on above: Performed By: #### C BC #### [facility] [address] [place] [address] Dr. Kristen Gambino RBC 5.00 106/ul Normal 4.20-5.40 [facility] Comment on above: Performed By: #### C BC #### [facility] [address] [place] [address] Dr. Kristen Gambino WBC 12.5 103/ul Critically high 4.0-11.0 [facility] Comment on above: Performed By: #### C BC #### [facility] [address] [place] [address] Dr. Kristen Gambino PREG QUANT HCGon 10-26-2021 HCG QUANT 1 mIU/mL Normal [facility] Comment on above: Performed By: #### P REGQNT #### [facility] [address] [place] [address] Dr. Kristen Gambino HCG RANGE SEE BELOW Normal [facility] Comment on above: Result Comment: 5-50 0-1 WEEK 40-300 1-2 WEEKS 100-1,000 2-3 WEEKS 500-6,000 3-4 WEEKS 5,000-200,000 1-2 MONTHS 10,000-100,000 2-3 MONTHS 3,000-50,000 2ND TRIMESTER 1,000-50,000 3RD TRIMESTER Performed By: #### P REGQNT #### [facility] [address] [place] [address] Dr. Kristen Gambino CHEMISTRYOrdered By: SYSTEM SYSTEM on 10-20-2021 Albumin [...] Bilirubin [Mass/Vol] 0.8 mg/dL Normal 0.0 - 1 .1 mg/dL [facility]isol Bilirubin.direct [Mass/Vol] 0.1 mg/dL Normal 0.1 - 0.4 mg/dL [facility] Bilirubin.indirect [Mass or moles/Vol] 0.7 mg/dL Normal 0.1 - 0.9 mg/dL [facility] Calcium [Mass/Vol] 9.4 mg/dL Normal 8.9 - 11. 1 mg/dL [facility] Chloride [Moles/Vol] 99 mmol/L Low 101 - 1 11 mmol/L [facility] CO2 [Moles/Vol] 25 mmol/L Normal 21 - 31 mmol/L [facility] Creatinine [Mass/Vol] 0.6 mg/dL Normal 0.5 - 1.3 mg/dL [facility] GFR/1.73 sq M.predicted among blacks MDRD (S/P/Bld) [Vol rate/Area] mL/min/1.73 m2 Normal >=59mL/min/ 1.73 m2 [facility] [place] Chem S GFR/1.73 sq M.predicted among non-blacks MDRD (S/P/Bld) [Vol rate/Area] mL/min/1.73 m2 Normal >=59mL/min/ 1.73 m2 [facility] S Globulin (S) [Mass/Vol] 3.8 g/dL Normal 1.4 - 4.0 gm/dL [facility] Glucose [Mass/Vol] 111 mg/dL Normal 55 - 199 mg/dL [facility] Lipase [Catalytic activity/Vol] 26 U/L Normal 13 - 58 unit/L [facility] Potassium [Moles/Vol] 3.8 mmol/L Normal 3.5 - 5.3 mmol/L [facility] Protein [Mass/Vol] 8.3 g/dL High 6.0 - 7.8 gm/dL [facility] Sodium [Moles/Vol] 133 mmol/L Low 135 - 145 mmol/L [facility] Urea nitrogen [Mass/Vol] 11 mg/dL Normal 5 - 21 mg/dL [facility] Urea nitrogen/Creatinine [Mass ratio] 18 mg/mg Normal 10 - 20 [facility] HEMATOLOGYOrdered By: SYSTEM SYSTEM on 10-20-2021 Basophils/100 WBC (Bld) 0.9 % Normal 0.0 - 2.0 % [facility] HemeAutoSS Basophils/Leukocytes Auto (Bld) [Pure # fraction] 0.1 E9/L Normal 0.0 - 0.2 E9/L [facility]eAuto[facility] Eosinophils/100 WBC (Bld) 1.3 % Normal 0.0 - 8.0 % [facility]eAutoSS Eosinophils/Leukocyt es Auto (Bld) [Pure # fraction] 0.2 E9/L Normal 0.0 - 0.5 E9/L [facility]eAutoSS Lymphocytes/100 WBC (Bld) 19.8 % Normal 14.0 - 50.0 % [facility]eAutoSS Lymphocytes/Leukocyt es Auto (Bld) [Pure # fraction] 2.6 E9/L Normal 1.0 - 4.0 E9/L [facility]eAutoSS Monocytes/100 WBC (Bld) 6.0 % Normal 4.0 - 14.0 % [facility] HemeAutoSS Monocytes/Leukocytes Auto (Bld) [Pure # fraction] 0.8 E9/L Normal 0.2 - 1.0 E9/L [facility] Neutrophils/100 WBC (Bld) 72.0 % Normal 36.0 - 75.0 % [facility]eAuto[facility] Neutrophils/Leukocyt es Auto (Bld) [Pure # fraction] 9.4 E9/L High 2.0 - 7.5 E9/L [facility]eAutoSS HEMATOLOGYOrdered By: Alliso n Sarai on 10-20-2021 Erythrocyte distribution width (RBC) [Ratio] [...] High 4.0 - 11.0 E9/L [facility]eAutoSS URINALYSISOrdered By: Sarmad michaels on 10-20-2021 Bilirubin [...] PM) Normal Negative [facility] UA Auto SS [place].plasma/Lithi um.RBC (Bld) [Mass ratio] 0-3 /HPF Normal 0-3/HPF [...] PM) Invalid Interpretation Code 1.005 - 1.030 [facility] Auto SS UA Spec Desc Clean Catch (10/20/21 6:38 PM) Normal [facility] UA Auto SS Urobilinogen Qn (U) [id number] {Sonya'U}/dL Normal 0.0 - 1.0 EU/dL [facility] UA Auto SS WBC Auto Ql (U) Trace *ABN* (10/20/21 6:38 PM) Invalid Interpretation Code Negative [facility] UA Auto SS WBC LM.HPF (Urine sed) [#/Area] 0-5 /HPF Normal 0-5/HPF [facility] UA Auto SS CHEMISTRYOrdered By: SYSTEM SYSTEM on 10-18-2021 Albumin [...] Bilirubin [Mass/Vol] 0.8 mg/dL Normal 0.0 - 1 .1 mg/dL [facility] Bilirubin.direct [Mass/Vol] 0.2 mg/dL Normal 0.1 - 0.4 mg/dL [facility] Bilirubin.indirect [Mass or moles/Vol] 0.6 mg/dL Normal 0.1 - 0.9 mg/dL [facility] Calcium [Mass/Vol] 9.1 mg/dL Normal 8.9 - 11. 1 mg/dL [facility] Chloride [Moles/Vol] 102 mmol/L Normal 101 - 1 11 mmol/L [facility] CO2 [Moles/Vol] 24 mmol/L Normal 21 - 31 mmol/L [facility] Creatinine [Mass/Vol] 0.4 mg/dL Low 0.5 - 1.3 mg/dL [facility] GFR/1.73 sq M.predicted among blacks MDRD (S/P/Bld) [Vol rate/Area] mL/min/1.73 m2 Normal >=59mL/min/ 1.73 m2 [facility] [place] Chem S GFR/1.73 sq M.predicted among non-blacks MDRD (S/P/Bld) [Vol rate/Area] mL/min/1.73 m2 Normal >=59mL/min/ 1.73 m2 [facility] [place] Chem S Globulin (S) [Mass/Vol] 3.6 g/dL Normal 1.4 - 4.0 gm/dL [facility] Glucose [Mass/Vol] 108 mg/dL Normal 55 - 199 mg/dL [facility] Lactate [Mass/Vol] 1.1 mmol/L Normal 0.5 - 2.2 mmol/L [facility] Lipase [Catalytic activity/Vol] 28 U/L Normal 13 - 58 unit/L [facility] Potassium [Moles/Vol] 3.7 mmol/L Normal 3.5 - 5.3 mmol/L [facility] Protein [Mass/Vol] 7.8 g/dL Normal 6.0 - 7.8 gm/dL [facility] Sodium [Moles/Vol] 134 mmol/L Low 135 - 145 mmol/L [facility] Urea nitrogen [Mass/Vol] 13 mg/dL Normal 5 - 21 mg/dL [facility] Urea nitrogen/Creatinine [Mass ratio] 32 mg/mg High 10 - 20 [facility] HEMATOLOGYOrdered By: SYSTEM SYSTEM on 10-18-2021 Basophils/100 WBC (Bld) 1.0 % Normal 0.0 - 2.0 % [facility] HemeAutoSS Basophils/Leukocytes Auto (Bld) [Pure # fraction] 0.1 E9/L Normal 0.0 - 0.2 E9/L [facility]eAutoSS Eosinophils/100 WBC (Bld) 1.3 % Normal 0.0 - 8.0 % [facility]eAutoSS Eosinophils/Leukocyt es Auto (Bld) [Pure # fraction] 0.1 E9/L Normal 0.0 - 0.5 E9/L [facility]eAutoSS Lymphocytes/100 WBC (Bld) 25.5 % Normal 14.0 - 50.0 % [facility] HemeAutoSS Lymphocytes/Leukocyt es Auto (Bld) [Pure # fraction] 2.6 E9/L Normal 1.0 - 4.0 E9/L [facility] HemeAutoSS Monocytes/100 WBC (Bld) 5.7 % Normal 4.0 - 14.0 % [facility] HemeAutoSS Monocytes/Leukocytes Auto (Bld) [Pure # fraction] 0.6 E9/L Normal 0.2 - 1.0 E9/L [facility]eAutoSS Neutrophils/100 WBC (Bld) 66.5 % Normal 36.0 - 75.0 % [facility] HemeAutoSS Neutrophils/Leukocyt es Auto (Bld) [Pure # fraction] 6.7 E9/L [...] Normal 4.0 - 11.0 E9/L [facility] HemeAutoSS SEROLOGYOrdered By: Amber russ on 10-18-2021 HCG.beta subunit (U) [Moles/Vol] Negative Normal [facility] URINALYSISOrdered By: Gasper Moon on 10-18-2021 Bacteria [...] AM) Normal Negative [facility] UA Auto SS [place].plasma/Lithi um.RBC (Bld) [Mass ratio] 0-3 /HPF Normal 0-3/HPF [facility] UA Auto SS Nitrite Ql (U) Negative (10/18/21 5:09 AM) Normal Negative [facility] UA Auto SS pH (U) 6.5 *NA* (10/18/21 5:09 AM) Invalid Interpretation Code 5.0 - 9.0 [facility] UA Auto SS Protein (U) [Mass/Vol] Negative (10/18/21 5:09 AM) Normal Negative [facility] UA Auto SS Specific gravity (U) [Rel density] 1.010 *NA* (10/18/21 5:09 AM) Invalid Interpretation Code 1.005 - 1.030 [facility] [place] UA Auto SS UA Spec Desc Clean Catch (10/18/21 5:09 AM) Normal [facility] [place] UA Auto SS Urobilinogen Qn (U) [id number] {Sonya'U}/dL Normal 0.0 - 1.0 EU/dL [facility] [place] UA Auto SS WBC Auto Ql (U) Trace *ABN* (10/18/21 5:09 AM) Invalid Interpretation Code Negative [facility] [place] UA Auto SS WBC LM.HPF (Urine sed) [#/Area] 0-5 /HPF Normal 0-5/HPF [facility] [place] UA Auto SS CBC AUTO DIFFon 09-27-2021 BASO # 0.1 103/ul Normal 0.0-0.1 [facility] Comment on above: Performed By: #### C BC #### [facility] [address] [place] [address] Dr. Kristen Gambino Basophils/100 WBC (Bld) 1.0 % Normal 0.2-2.0 [facility] Comment on above: Performed By: #### C BC #### [facility] [address] [place] [address] Dr. Kristen Gambino EO # 0.1 103/ul Normal 0.0-0.7 [facility] Comment on above: Performed By: #### C BC #### [facility] [address] [place] [address] Dr. Kristen Gambino Eosinophils/100 WBC (Bld) 0.9 % Normal 0.9-7.0 [facility] Comment on above: Performed By: #### C BC #### [facility] [address] [place] [address] Dr. Kristen Gambino Erythrocyte distribution width (RBC) [Ratio] 13.3 % Normal 11.0-15.0 [facility] Comment on above: Performed By: #### C BC #### [facility] [address] [place] [address] Dr. Kristen Gambino Hematocrit (Bld) [Volume fraction] 44.6 % Normal 36.0-48.0 [facility] Comment on above: Performed By: #### C BC #### [facility] [address] [place] [address] Dr. Kristen Gambino Hemoglobin (Bld) [Mass/Vol] 14.4 g/dL Normal 12.0-16.0 [facility] Comment on above: Performed By: #### C BC #### [facility] [address] [place] [address] Dr. Kristen Gambino IG # 0.03 10e3/ul Normal 0.00-0.03 [facility] Comment on above: Performed By: #### C BC #### [facility] [address] [place] [address] Dr. Kristen Gambino IG % 0.3 % Normal 0.0-0.5 [facility] Comment on above: Performed By: #### C BC #### [facility] [address] [place] [address] Dr. Kristen Gambino LYMPH # 1.6 103/ul Normal 1.2-3.8 [facility] Comment on above: Performed By: #### C BC #### [facility] [address] [place] [address] Dr. Kristen Gambino Lymphocytes/100 WBC (Bld) 17.9 % Critically low 20.5-60.0 [facility] Comment on above: Performed By: #### C BC #### [facility] [address] [place] [address] Dr. Kristen Gambino MANUAL DIFF REQ NO Normal [facility] Comment on above: Performed By: #### C BC #### [facility] [address] [place] [address] Dr. Kristen Gambino MCH (RBC) [Entitic mass] 27.1 pg Normal 26.7-34.0 [facility] Comment on above: Performed By: #### C BC #### [facility] [address] [place] [address] Dr. Kristen Gambino MCHC (RBC) [Mass/Vol] 32.3 g/dL Normal 29.9-35.2 [facility] Comment on above: Performed By: #### C BC #### [facility] [address] [address] [address] Kristen Gambino MCV (RBC) [Entitic vol] 84.0 fL Normal 81.0-99.0 [facility] Comment on above: Performed By: #### C BC #### [facility] [address] [place] [address] Dr. Kristen Gambino MONO # 0.7 103/ul Normal 0.3-0.8 [facility] Comment on above: Performed By: #### C BC #### [facility] [address] [place] [address] Dr. Kristen Gambino Monocytes/100 WBC (Bld) 7.6 % Normal 1.7-12.0 [facility] Comment on above: Performed By: #### C BC #### [facility] [address] [place] [address] Dr. Kristen Gambino NEUT # 6.6 103/ul Critically high 1.4-6.5 [facility] Comment on above: Performed By: #### C BC #### [facility] [address] [place] [address] Dr. Kristen Gambino Neutrophils/100 WBC (Bld) 72.3 % Normal 43.0-75.0 [facility] Comment on above: Performed By: #### C BC #### [facility] [address] [place] [address] Dr. Kristen Gambino Platelet mean volume (Bld) [Entitic vol] 9.8 fL Normal 9.5-13.5 [facility] Comment on above: Performed By: #### C BC #### [facility] [address] [place] [address] Dr. Kristen Gambino PLT 427 103/ul Normal 150-450 [facility] Comment on above: Performed By: #### C BC #### [facility] [address] [place] [address] Dr. Kristen Gambino RBC 5.31 106/ul Normal 4.20-5.40 [facility] Comment on above: Performed By: #### C BC #### [facility] [address] [address] [address] Kristen Gambino WBC 9.1 103/ul Normal 4.0-11.0 [facility] Comment on above: Performed By: #### C BC #### [facility] [address] [address] [address] Kristen Gambino LIPID PROFILEon 09-27-2021 CHOL-HDL RATIO NORM SEE BELOW Normal [facility] Comment on above: Result Comment: 3.3 - 4.4 LOW RISK 4.4 - 7.1 AVERAGE RISK 7.1 - 11.0 MODERATE RISK >11.0 HIGH RISK Performed By: #### C MP, LIPID #### [facility] [address] [address] [address] Kristen Gambino Cholesterol [Mass/Vol] 186 mg/dL Normal <=200 [facility] Comment on above: Performed By: #### C MP, LIPID #### [facility] [address] [place] [address] Dr. Kristen Gambino Cholesterol in HDL [Mass/Vol] 43 mg/dL Normal 40-60 [facility] Comment on above: Performed By: #### C MP, LIPID #### [facility] [address] [address] [address] Kristen Gambino Cholesterol in LDL [Mass/Vol] 106.6 mg/dL Normal [facility] Comment on above: Performed By: #### C MP, LIPID #### [facility] [address] [address] [address] Kristen Gambino Cholesterol.total/Ch olesterol in HDL [Mass ratio] 4.3 {ratio} Normal [facility] Comment on above: Performed By: #### C MP, LIPID #### [facility] [address] [address] [address] Kristen Gambino HDL NORMAL > or = 60 mg/dl - LO W CARDIOVASCULAR RISK <40 mg/dl - HIGH CARDIOVASCULAR RISK Normal [facility] Comment on above: Performed By: #### C MP, LIPID #### [facility] [address] [address] [address] Kristen Gambino LDL CALC NORMAL SEE BELOW Normal [facility] Comment on above: Result Comment: <100 mg/dl OPTIMAL 100 - 129 mg/dl NEAR OR ABOVE OPTIMAL 130 - 159 mg/dl BORDERLINE HIGH 160 - 189 mg/dl HIGH >190 mg/dl VERY HIGH Performed By: #### C MP, LIPID #### [facility] [address] [place] [address] Dr. Kristen Gambino Triglyceride [Mass/Vol] 182 mg/dL Critically high <=150 [facility] Comment on above: Performed By: #### C MP, LIPID #### [facility] [address] [place] [address] Dr. Kristen Gambino VLDL CALC 36.4 mg/dL Normal [facility] Comment on above: Performed By: #### C MP, LIPID #### [facility] [address] [place] [address] Dr. Kristen Gambino PROF 14(COMP METB)on 022 Albumin [Mass/Vol] 3.7 g/dL Normal 3.4-5.0 [facility] Comment on above: Performed By: #### C MP, LIPID #### [facility] [address] [place] [address] Dr. Kristen Gambino Albumin/Globulin [Mass ratio] 0.8 {ratio} Normal [facility] Comment on above: Performed By: #### C MP, LIPID #### [facility] [address] [place] [address] Dr. Kristen Gambino ALP [Catalytic activity/Vol] 70 U/L Normal 46-116 [facility] Comment on above: Performed By: #### C MP, LIPID #### [facility] [address] [place] [address] Dr. Kristen Gambino ALT [Catalytic activity/Vol] 35 U/L Normal 14-59 [facility] Comment on above: Performed By: #### C MP, LIPID #### [facility] [address] [place] [address] Dr. Kristen Gambino Anion gap [Moles/Vol] 13.1 mmol/L Normal [facility] Comment on above: Performed By: #### C MP, LIPID #### [facility] [address] [place] [address] Dr. Kristen Gambino AST [Catalytic activity/Vol] 19 U/L Normal 15-37 [facility] Comment on above: Performed By: #### C MP, LIPID #### [facility] [address] [place] [address] Dr. Kristen Gambino Bilirubin [Mass/Vol] 0.7 mg/dL Normal 0.2-1.3 [facility] Comment on above: Performed By: #### C MP, LIPID #### [facility] [address] [place] [address] Dr. Kristen Gambino Calcium [Mass/Vol] 8.5 mg/dL Normal 8.5-10.1 [facility] Comment on above: Performed By: #### C MP, LIPID #### [facility] [address] [place] [address] Dr. Kristen Gambino Chloride [Moles/Vol] 102 mmol/L Normal 98-107 [facility] Comment on above: Performed By: #### C MP, LIPID #### [facility] [address] [place] [address] Dr. Kristen Gambino CO2 [Moles/Vol] 25.9 mmol/L Normal 22.0-30.0 [facility] Comment on above: Performed By: #### C MP, LIPID #### [facility] [address] [place] [address] Dr. Kristen Gambino Creatinine [Mass/Vol] 0.62 mg/dL Normal 0.52-1.04 [facility] Comment on above: Performed By: #### C MP, LIPID #### [facility] [address] [place] [address] Dr. Kristen Gambino EGFR-AF ERITREAN >60 Normal >=60 [facility] Comment on above: Performed By: #### C MP, LIPID #### [facility] [address] [place] [address] Dr. Kristen Gambino EGFR-NON AF ERITREAN >60 Normal >=60 [facility] Comment on above: Performed By: #### C MP, LIPID #### [facility] [address] [place] [address] Dr. Kristen Gambino Globulin (S) [Mass/Vol] 4.4 g/dL Normal [facility] Comment on above: Performed By: #### C MP, LIPID #### [facility] [address] [place] [address] Dr. Kristen Gambino Glucose [Mass/Vol] 104 mg/dL Normal 74-106 [facility] Comment on above: Performed By: #### C MP, LIPID #### [facility] [address] [place] [address] Dr. Kristen Gambino Potassium [Moles/Vol] 4.0 mmol/L Normal 3.4-5.0 [facility] Comment on above: Performed By: #### C MP, LIPID #### [facility] [address] [place] [address] Dr. Kristen Gambino Protein [Mass/Vol] 8.1 g/dL Normal 6.1-8.2 [facility] Comment on above: Performed By: #### C MP, LIPID #### [facility] [address] [place] [address] Dr. Kristen Gambino Sodium [Moles/Vol] 137 mmol/L Normal 137-145 [facility] Comment on above: Performed By: #### C MP, LIPID #### [facility] [address] [place] [address] Dr. Kristen Gambino Urea nitrogen [Mass/Vol] 12.0 mg/dL Normal 7.0-18.0 [facility] Comment on above: Performed By: #### C MP, LIPID #### [facility] [address] [place] [address] Dr. Kristen Gambino Urea nitrogen/Creatinine [Mass ratio] 19.4 mg/mg Normal [facility] Comment on above: Performed By: #### C MP, LIPID #### [facility] [address] [place] [address] Dr. Kristen Gambino PROGRESSon 10-21-2017 PROGRESS HNO ID: [id number] thor: Isaac Carrasco: (none)Author Type: PhysicianType: Progress NotesFiled: 10/21/2017 2:01 PMNote Text:PATIENT NAME: Gladis PatelarMRN: [id number] PHYSICIAN: Joseph Harris DO[address] [facility] [place] [address]XYIBSJF CARE PHYSICIAN: MASOOD Rubin PHYSICIANS:CHIEF COMPLAINT: Pituitary [...] for5 days straight. Went to ER 02/26. Mcclain was negative, strep negative.Flu negative. She was [...] plan. I answered all questionssatisfactorily..Tulio Shelton D.O.Medical OncologistBaptist Health Medical Center CNOVSPon 10-20-2017 CNOVSP Visit (SP) Office ([place]) -------GLADIS MICHAEL ([id number]) 1975 [facility] Time Provider Department10/20/17 10:00 AM ISAAC SHELTON During your visit today, we recorded the following information about you: Temperature Pulse Respiration Blood pressure 98.5 degrees 69/minute 18/minute 159/106 Weight Height 105.9 kg 1.575 Kassidy Shelton DO 10/21/2017 2:01 PM SignedPATIENT NAME: Gladis ElderRN: [id number] PHYSICIAN: Joseph Harris, [address] [place] [address]ECJWANV CARE PHYSICIAN: MASOOD Rubin PHYSICIANS:CHIEF COMPLAINT: Pituitary [...] for 5days straight. Went to ER 02/26. Mcclain was negative, strep negative. Flunegative. She was [...] Alcohol use NoLABS:RADIOLOGY/OTHER STUDIES:COUNSELING:I discussed with Gladis fitzgerald natural history, treated course, and prognosisof Pituitary mass (hcc) (primary encounter diagnosis); my impression as wellas the rationale, logistics, risks, benefits, and alternatives to themanagement options noted above; and my recommendations listed below. Thepatient Gladis Michael verbalized understanding and agreed with theserecommendations and plan. 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 Erythrocyte distribution width Auto Ratio (RBC) 13.9 % Normal 11.5-15.0 [facility] Erythrocytes (RBC) 4.76 10*6/uL Normal 3.90-5.20 [facility] Hematocrit (HCT) 39.5 % Normal 36.0-46.[address] [facility] Hemoglobin mass conc (Bld) 13.4 g/dL Normal 11.5-15.5 [facility] MCH 28.2 pG Normal 26.0-34.0 [facility] MCHC mass conc (RBC) 33.9 g/dL Normal 30.5-36.0 [facility] MCV 83.0 fL Normal 80.0-100.0 [facility] Platelet mean volume (PMV) 9.4 fL Normal 9.0-12.7 [facility] Platelets 434 10*3/uL High 150-400 [facility] WBC (Leukocytes) 10.26 10*3/uL Normal 3.70-11.00 [facility] CNOVSPon 10-09-2017 CNOVSP Visit (SP) Office ([place]) -------GLADIS MICHAEL ([id number]) 1975 FDate Time Provider Department10/09/17 11:15 AM ISAAC SHELTON During your visit today, we recorded the following information about you: Temperature Pulse Respiration Blood pressure 98 degrees 75/minute 18/minute 151/106 Weight Height 111 kg 1.575 Isaac Myers 10/10/2017 2:10 AM SignedPATIENT NAME: Gladis PatelarMRN: [id number] PHYSICIAN: Joseph Harris DO[address] [place] [address]LHDTNPH CARE PHYSICIAN: MASOOD Rubin PHYSICIANS:CHIEF COMPLAINT: Lymphocytosis [...] and base of skull jesús.make f/u with rebecca and Dr. Hernandez.. H [...] for 5days straight. Went to ER 02/26. Mcclain was negative, strep negative. Flunegative. She was [...] plan. I answered allquestions satisfactorily..Hai Shelton D.O.Medical OncologistSemin[place], [place]Referring Provider: ISAAC SHELTON [[id number]]Allergies As of Date: 10/09/2017 Noted Allergy ReactionTOPROL XL (METOPROLOL) 04/11/2016 14 - Other: See Comments Comments: heart races per patientDate Reviewed: 10/09/2017Reviewed by: Denise Witt - Fully AssessedReason for Visit: lymphocytosis [Other] Cmt: follow up per nursePrimary Visit Diagnosis:Lymphocytosis [D72.820] Other Visit Diagnosis:Cervical adenopathy [R59.0]Order(s):CT NECK SOFT TISSUE W IVCON [9865566] Order #: [id number] FUTURE [] iv contrast (radiology procedure)Inject 1 [...] 1 EachRfl: 0 CT CHEST WO IVCON [[id number]] Order #: [id number] FUTURE CT CHEST W IVCON [[id number]] Order #: [id number] FUTURE iv contrast (radiology procedure)CT Chest W [...] by ISAAC SHELTON DO on 10/10/17 Normal [facility] PROGRESSon 10-09-2017 PROGRESS HNO ID: [id number] thor: Isaac Shelton JService: (none)Author Type: PhysicianType: Progress NotesFiled: 10/10/2017 2:10 AMNote Text:PATIENT NAME: Gladis ElderRN: [id number] PHYSICIAN: Joseph Harris DO[address] [place] [address]WZHFCNV CARE PHYSICIAN: MASOOD Rubin PHYSICIANS:CHIEF COMPLAINT: Lymphocytosis [...] for5 days straight. Went to ER 02/26. Mcclain was negative, strep negative.Flu negative. She was [...] my recommendations listed below. The patient Gladis Daniels Fernandaverbalized understanding and agreed with these recommendations and plan.I answered all questions satisfactorily..Hai Shelton D.O.Medical OncologistBaptist Health Medical Center APTTon 10-06-2017 aPTT 22.4 s Low 23.0-32.4 [facility] Comment on above: Result Comment: [...] laboratory APTT reagent in use throughout the [facility]. Performed By: #### P T, PTT, BMP, HFP, LD6, WSR, SEPG, MPASRM, KLFRS ####[place] [address], [place] [phone] Basic Metabolic Panlon 10-06 Anion gap 12 mmol/L Normal 9-18 [facility] Comment on above: Performed By: #### P T, PTT, BMP, HFP, LD6, WSR, SEPG, MPASRM, KLFRS ####[place] [address] [address], [place] [phone] Calcium 9.5 mg/dL Normal 8.5-10.2 [facility] [facility] Comment on above: Performed By: #### P T, PTT, BMP, HFP, LD6, WSR, SEPG, MPASRM, KLFRS ####[place] [address] [place] [phone] Chloride 96 mmol/L Low 97-105 [facility] Comment on above: Performed By: #### P T, PTT, BMP, HFP, LD6, WSR, SEPG, MPASRM, KLFRS ####[place] [address] [place] [phone] CO2 26 mmol/L Normal 22-30 [facility] Comment on above: Performed By: #### P T, PTT, BMP, HFP, LD6, WSR, SEPG, MPASRM, KLFRS ####[place] [address] [phone] Creatinine 0.54 mg/dL Low 0.58-0.96 [facility] Comment on above: Performed By: #### P T, PTT, BMP, HFP, LD6, WSR, SEPG, MPASRM, KLFRS ####[place] [address], [place] [phone] eGFR (non-black) mL/min/{1.73_m2} Normal [facility] Comment on above: Result Comment: eGFR [...] BMP, HFP, LD6, WSR, SEPG, MPASRM, KLFRS ####[facility] [place], [place] [phone] Glucose mass conc 81 mg/dL Normal 74-99 [facility] Comment on above: Result Comment: The [place] Diabetes Association (ADA) provides guidance for cutoff [...] Standards of Medical Care in Diabetes 2016, [place] [employer]. Diabetes Care. 2016.39(Suppl 1). Performed By: #### P T, PTT, BMP, HFP, LD6, WSR, SEPG, MPASRM, KLFRS ####[facility] [place], [place] [phone] Potassium molar conc 4.4 mmol/L Normal 3.7-5.1 [facility] Comment on above: Performed By: #### P T, PTT, BMP, HFP, LD6, WSR, SEPG, MPASRM, KLFRS ####[place] [address] [place] [phone] Sodium 134 mmol/L Low 136-144 [facility] Comment on above: Performed By: #### P T, PTT, BMP, HFP, LD6, WSR, SEPG, MPASRM, KLFRS ####[address] [phone] Urea nitrogen 10 mg/dL Normal 7-21 [facility] Comment on above: Performed By: #### P T, PTT, BMP, HFP, LD6, WSR, SEPG, MPASRM, KLFRS ####[address]ille [phone] Hepatic Functn Panelon 10-06 Alanine aminotransferase (ALT) 20 U/L Normal 7-38 [facility] Comment on above: Performed By: #### P T, PTT, BMP, HFP, LD6, WSR, SEPG, MPASRM, KLFRS ####[address] [phone] Albumin 4.3 g/dL Normal 3.9-4.9 [facility] Comment on above: Performed By: #### P T, PTT, BMP, HFP, LD6, WSR, SEPG, MPASRM, KLFRS ####[address] [phone] Alkaline phosphatase (ALP) 64 U/L Normal 32-117 [facility] Comment on above: Performed By: #### P T, PTT, BMP, HFP, LD6, WSR, SEPG, MPASRM, KLFRS ####[place] [address] [phone] Aspartate aminotransferase (AST) 14 U/L Normal 13-35 [facility] Comment on above: Performed By: #### P T, PTT, BMP, HFP, LD6, WSR, SEPG, MPASRM, KLFRS ####[facility]leveland[address], [place] [phone] Bilirubin (total) 0.3 mg/dL Normal 0.2-1.3 [facility] Comment on above: Performed By: #### P T, PTT, BMP, HFP, LD6, WSR, SEPG, MPASRM, KLFRS ####[place] [address], [place] [phone] Bilirubin,Conjugated <0.2 Normal <0.2 [facility] Comment on above: Performed By: #### P T, PTT, BMP, HFP, LD6, WSR, SEPG, MPASRM, KLFRS ####[place] [address], [place] [phone] Protein 7.9 g/dL Normal 6.3-8.0 [facility] Comment on above: Performed By: #### P T, PTT, BMP, HFP, LD6, WSR, SEPG, MPASRM, KLFRS ####[place] [address] [place] [phone] [place]/Cope,Free,Seron 2017 K/L Ratio, Serum 1.83 High 0.26-1.[address] [facility] Comment on above: Performed By: #### P T, PTT, BMP, HFP, LD6, WSR, SEPG, MPASRM, KLFRS ####[place] [address], [place] [phone] [place], Free, Serum 22.5 mg/L High 3.30-19.40 [facility] Comment on above: Result Comment: Rare ly, increased serum free light chains values may not be detected due to antigen excess phenomenon. Results should always be correlated with other laboratory results and clinical findings. Performed By: #### P T, PTT, BMP, HFP, LD6, WSR, SEPG, MPASRM, KLFRS ####[place] [address], [place] [phone] Lambda, Free, Serum 12.3 mg/L Normal 5.7-26.3 [facility] Comment on above: Result Comment: Rare ly, increased serum free light chains values may not be detected due to antigen excess phenomenon. Results should always be correlated with other laboratory results and clinical findings. Performed By: #### P T, PTT, BMP, HFP, LD6, WSR, SEPG, MPASRM, KLFRS ####[place] [address], [place] [phone] LDon 10-06-2017 LD 141 U/L Normal 135-214 [facility] Comment on above: Performed By: #### P T, PTT, BMP, HFP, LD6, WSR, SEPG, MPASRM, KLFRS ####[address]CSeneca, [place] [phone] Monoclonl Protein,Blon 10-06 MPA Interpretation SEE COMMENT Normal [facility] Comment on above: Result Comment: Atyp ical restricted bands are present in the IgG and lambda regions. Consistent with IgG lambda monoclonal gammopathy. Performed By: #### P T, PTT, BMP, HFP, LD6, WSR, SEPG, MPASRM, KLFRS ####[place] [address], [place] [phone] MPA Parminder/Milner Ratio 2.12 Normal 1-3 [facility] Comment on above: Performed By: #### P T, PTT, BMP, HFP, LD6, WSR, SEPG, MPASRM, KLFRS ####[place] [address] AveClevel[place], [place] [phone] MPA Result M protein is present. Critically abnormal No M protein is identified. [facility] Comment on above: Performed By: #### P T, PTT, BMP, HFP, LD6, WSR, SEPG, MPASRM, KLFRS ####[place] [address] AveClevel[place], [place] [phone] MPA Serum IgA 130 mg/dL Normal 78-391 [facility] Comment on above: Performed By: #### P T, PTT, BMP, HFP, LD6, WSR, SEPG, MPASRM, KLFRS ####[facility] AveClevelandAngela [place] [phone] MPA Serum IgG 1450 mg/dL High 717-1411 [facility] Comment on above: Performed By: #### P T, PTT, BMP, HFP, LD6, WSR, SEPG, MPASRM, KLFRS ####[place] [address]ClevelGlor[address] [place] [phone] MPA Serum IgM 123 mg/dL Normal 53-334 [facility] Comment on above: Performed By: #### P T, PTT, BMP, HFP, LD6, WSR, SEPG, MPASRM, KLFRS ####[place] [address]ClevelG[address] [place] [phone] Serum [place] 1260 mg/dL Normal 534-1267 [facility] Comment on above: Performed By: #### P T, PTT, BMP, HFP, LD6, WSR, SEPG, MPASRM, KLFRS ####[place] [address]levelG[address] [place] [phone] Serum Lambda 595 mg/dL Normal 253-653 [facility] Comment on above: Performed By: #### P T, PTT, BMP, HFP, LD6, WSR, SEPG, MPASRM, KLFRS ####[place] [address] AveClevelGloria [place] [phone] Staff Review Reviewed by Delores Means MD ([id number]) [facility] Comment on above: Performed By: #### P T, PTT, BMP, HFP, LD6, WSR, SEPG, MPASRM, KLFRS ####[address]CBobby Ville [phone] Protein Electrophor.on 10-06 Albumin 3.93 g/dL Normal 3.37-4.23 [facility] Comment on above: Performed By: #### P T, PTT, BMP, HFP, LD6, WSR, SEPG, MPASRM, KLFRS ####[place] [address], [place] [phone] Alpha 1 Globulin 0.16 gm/dL Low 0.18-0.[address] [facility] Comment on above: Performed By: #### P T, PTT, BMP, HFP, LD6, WSR, SEPG, MPASRM, KLFRS ####[address] [phone] Alpha 2 Globulin 0.80 gm/dL Normal 0.52-0.[address] [facility] Comment on above: Performed By: #### P T, PTT, BMP, HFP, LD6, WSR, SEPG, MPASRM, KLFRS ####[address] [place] [phone] Beta Globulin 1.11 gm/dL Normal 0.84-1.36 [facility] Comment on above: Performed By: #### P T, PTT, BMP, HFP, LD6, WSR, SEPG, MPASRM, KLFRS ####[address] [phone] Gamma Globulin 1.49 gm/dL High 0.70-1.44 [facility] Comment on above: Performed By: #### P T, PTT, BMP, HFP, LD6, WSR, SEPG, MPASRM, KLFRS ####[address], [place] [phone] Interpretation SEE COMMENT Normal [facility] Comment on above: Result Comment: An M protein is identified on protein electrophoresis.See separate immunofixation report for characterization of the M protein.M protein is present on the background of a polyclonal immunoglobulin population. Quantitation of the M protein may overestimate the amount of M protein present. Performed By: #### P T, PTT, BMP, HFP, LD6, WSR, SEPG, MPASRM, KLFRS ####[address], [place] [phone] M Protein Location Gamma fraction Normal [facility] Comment on above: Performed By: #### P T, PTT, BMP, HFP, LD6, WSR, SEPG, MPASRM, KLFRS ####[address], [place] [phone] M Ja Concentratn 0.18 gm/dL High 0.00 [facility] Comment on above: Performed By: #### P T, PTT, BMP, HFP, LD6, WSR, SEPG, MPASRM, KLFRS ####[address] [phone] SPE Staff Review Reviewed by Delores Means MD ([id number]) Normal [facility] Comment on above: Performed By: #### P T, PTT, BMP, HFP, LD6, WSR, SEPG, MPASRM, KLFRS ####[address] [phone] Total Protein, SPE 7.5 g/dL Normal 6.0-8.4 [facility] Comment on above: Performed By: #### P T, PTT, BMP, HFP, LD6, WSR, SEPG, MPASRM, KLFRS ####[address], [place] [phone] Protimeon 10-06-2017 INR Coag RelTime (Bld) 1.0 {INR} Normal 0.9-1.3 [facility] Comment on above: Result Comment: Muna min K Antagonist (VKA) Therapeutic Range: INR 2 to 3 (Target INR of 2.5)Note: For patients treated with VKA drugs, such as warfarin, the [place] [employer] 2012 Guideline recommends [...] al. Chest 2012, 141:7S-47SNishhenok RA, et al. [facility] 2017, 70: 252-289 Performed By: #### P T, PTT, BMP, HFP, LD6, WSR, SEPG, MPASRM, KLFRS ####[place] [phone] Performed By: #### V WFPN ####[place] [phone] PT Sec 10.3 sec Normal 9.7-13.0 [facility] Comment on above: Performed By: #### P T, PTT, BMP, HFP, LD6, WSR, SEPG, MPASRM, KLFRS ####[place] [phone] Performed By: #### V WFPN ####[place] [phone] Remote CBCDIF (for [facility] use o nly)on 10-06-2017 Abs Baso 0.12 k/uL High <0.11 [facility] Comment on above: Performed By: #### R CBCDF ####[place] [phone] Abs Mcclain 0.85 k/uL Normal <0.87 [facility] Comment on above: Performed By: #### R CBCDF ####[address] [phone] Abs Neut 9.52 k/uL High 1.45-7.50 [facility] Comment on above: Performed By: #### R CBCDF ####[place] [address] [place], [place] [phone] Basophils/100 WBC Auto (Bld) 0.9 % Normal [facility] Comment on above: Performed By: #### R CBCDF ####[address] [phone] DTYPE Auto Diff Normal [facility] Comment on above: Performed By: #### R CBCDF ####[address] [phone] Eosinophils 0.12 10*3/uL Normal <0.46 [facility] Comment on above: Performed By: #### R CBCDF ####[address] [phone] Eosinophils/100 leukocytes 0.9 % Normal [facility] Comment on above: Performed By: #### R CBCDF ####[address] [phone] Erythrocyte distribution width Auto Ratio (RBC) 13.8 % Normal 11.5-15.0 [facility] Comment on above: Performed By: #### R CBCDF ####[place] [address], [place] [phone] Erythrocytes (RBC) 10*6/uL Normal <0.01 [facility] Comment on above: Performed By: #### R CBCDF ####[address] [phone] Erythrocytes (RBC) 0.0 /100 WBC Normal 0 [facility] Comment on above: Performed By: #### R CBCDF ####[address] [phone] Erythrocytes (RBC) 4.46 10*6/uL Normal 3.90-5.20 [facility] Comment on above: Performed By: #### R CBCDF ####[address] [place], [place] [phone] Hematocrit (HCT) 37.7 % Normal 36.0-46.[address] [facility] Comment on above: Performed By: #### R CBCDF ####[place] [phone] Hemoglobin mass conc (Bld) 12.6 g/dL Normal 11.5-15.5 [facility] Comment on above: Performed By: #### R CBCDF ####[address] [phone] Lymphocytes 2.67 10*3/uL Normal 1.00-4.00 [facility] Comment on above: Performed By: #### R CBCDF ####[place] [phone] Lymphocytes/100 leukocytes 20.1 % Normal [facility] Comment on above: Performed By: #### R CBCDF ####[address] [phone] MCH 28.3 pG Normal 26.0-34.0 [facility] Comment on above: Performed By: #### R CBCDF ####[address] [phone] MCHC mass conc (RBC) 33.4 g/dL Normal 30.5-36.0 [facility] Comment on above: Performed By: #### R CBCDF ####[address] [phone] MCV 84.5 fL Normal 80.0-100.0 [facility] Comment on above: Performed By: #### R CBCDF ####[place] [address] [place], [place] [phone] Monocytes/100 leukocytes 6.4 % Normal [facility] Comment on above: Performed By: #### R CBCDF ####[address] [phone] Neutrophils/100 WBC Auto (Bld) 71.7 % Normal [facility] Comment on above: Performed By: #### R CBCDF ####[address] [phone] Platelet mean volume (PMV) 10.0 fL Normal 9.0-12.7 [facility] Comment on above: Performed By: #### R CBCDF ####[address] [phone] Platelets 434 10*3/uL High 150-400 [facility] Comment on above: Performed By: #### R CBCDF ####[address] [phone] WBC (Leukocytes) 13.28 10*3/uL High 3.70-11.00 [facility] Comment on above: Performed By: #### R CBCDF ####[address] [phone] Sed Rate Westergrenon 2017 Sed Rate Westergren 27 mm/hr High 0-20 [facility] Comment on above: Performed By: #### P T, PTT, BMP, HFP, LD6, WSR, SEPG, MPASRM, KLFRS ####[address] [phone] von Willebrand Diagon 2017 aPTT 26.7 s Normal 23.0-32.4 [facility] Comment on above: Result Comment: [...] laboratory APTT reagent in use throughout the [facility]. Performed By: #### V WFPN ####[place] [address], [place] [phone] CBA/VWF Ratio 0.7 Normal >0.5 [facility] Comment on above: Performed By: #### V SABINAPN ####[place] [address], [place] [phone] COL/ADP Cartridge 127 CT (sec) High <118 [facility] Comment on above: Result Comment: Resu lts are reported as Closure Time (CT) in seconds. Performed By: #### V WFPN ####[place] [address], [place] [phone] COL/EPI Cartridge 117 CT (sec) Normal <199 [facility] Comment on above: Result Comment: Resu lts are reported as Closure Time (CT) in seconds. Performed By: #### V WFPN ####[address] [phone] Collagen Binding-CBA 118 % Normal 41-161 [facility] Comment on above: Result Comment: This test uses a reagent or kit labeled by the escalation engineer as research use only and it is used per escalation engineer's instructions. Its performance characteristics were determined by [facility]'s Balyne Barrera [facility] [place] in a manner consistent with CLIA requirements. This test has not been cleared by the U.S. Food and Drug Administration. Performed By: #### V WFPN ####[address] [phone] Factor VIII:C Assay 165 % Normal 50-173 [facility] Comment on above: Performed By: #### V WFPN ####[facility] [address] [place], [place] [phone] FVIII/VWF Ratio 1.0 Normal >0.4 [facility] Comment on above: Performed By: #### V WFPN ####[facility] [place], [place] [phone] Interpretation(VW) (NOTE) Normal [facility] Comment on above: Result Comment: Perf [...] medication history. Performed By: #### V WFPN ####[address] [phone] Ristocetin Aggreg Normal dose response Normal [facility] Comment on above: Performed By: #### V WFPN ####[address] [phone] Ristocetin Co-Factor 150 % High 42-146 [facility] Comment on above: Performed By: #### V WFPN ####[address] [phone] Ristocetin/VWF Ratio 0.9 Normal >0.4 [facility] Comment on above: Performed By: #### V WFPN ####[address] [phone] von Willebrand Ag 159 % Normal 50-173 [facility] Comment on above: Performed By: #### V WFPN ####[address] [phone] von Willebrand Mult Normal multimer amou nt and pattern. Normal [facility] Comment on above: Result Comment: Revi ewed by Joleen Shore M.D.,Ph.D ([id number])This test was developed and its performance characteristics determined by [facility] Blayne Bruce [facility] [place] ([facility]).It has not been cleared or approved by the FDA. -[facility] is regulated under CLIA as qualified to perform high-complexity testing.This test is used for clinical purposes. It should not be regarded as investigational or for research. Performed By: #### V WFPN ####[address] [phone] CNOVon 09-25-2017 CNOV Office Visit (CARDFT) -------GLADIS MICHAEL ([id number]) 1975 FDate Time Provider Department09/25/17 10:30 AM JESUS CHEATHAM During your visit today, we recorded the following information about you: Pulse Respiration Blood pressure Weight 68/minute 18/minute 139/78 108 kg Height 1.575 Rishi Cheatham MD 09/25/2017 10:54 AM [facility] [place] Department of Cardiovascular MedicineOUTPATIENT VISIT DATE 09/25/16OUTPATIENT VISIT TYPEESTABLCONE [facility]ALTH [facility]ALPR[facility] PHYSICIAN:Joseph Harris DO[address] [facility] [address]Hwnht: [phone]: [phone] COMPLAINT:Patient presents with:Follow UpHISTORY OF PRESENT ILLNESS:Gladis [place] is a 41 year old female with a past cardiac history ofpalpitations, hypertensive episodes associated with flushing.05/22/2017The patient presents today as a new consult. The patient has previously beencared for by a pediatrics teacher in [place]. She has been on pindolol andlisinopril for [...] years. She had a complete workup in [facility] including a cardiac CTA, pharmacologic stress, echo and monitors. Unfortunately I do not have any of those records to review. The patient wasseen in the emergency room earlier today for epistaxis. She also was seen int emergency room in [place] last Friday with a complaint of dizziness. [...] kg (238 lb) SpO2 100% BMI 43.53 kg/f9Sopvbng: Well appearing, in no acute distress.Eyes: Conjunctiva [...] I49.1 (primary diagnosis),seen on Holter monitor in 2015.2. PVC (premature ventricular contraction) - ICD9: 427.69, ICD10: I49.3, rarePVCs on Holter monitor in 2016.3. Palpitations - ICD9: 785.1, ICD10: R00.2, feelings of palpitationsassociated with elevated blood pressure and flushed feeling, these have beenoccurring for years. Patient had negative workup in [place]. Placed onpindolol and lisinopril.4. Non-rheumatic mitral regurgitation, [...] provided to the requesting physician by way [facility] or to the requesting physician via U.S. Mail.This document was generated utilizing [employer]. I have reviewed andverified that the contents of the document are accurate with the exception ofminor grammatical, spelling and punctuation errors.CONTACT INFORMATION:Thank you for allowing us to participate in the care of this very pleasantpatient. Please free to contact us if we can be of any further assistance.Jesus Cheatham MD, [facility] Hospitalment of Cardiovascular MedicineHavasu Regional [facility] Institute[address] [address]Xiuhxi: [phone] Referring Provider: JOSEPH HARRIS [[id number]]Allergies As of Date: 09/25/2017 Noted Allergy ReactionTOPROL XL (METOPROLOL) 04/11/2016 14 - Other: See Comments Comments: heart races per patientDate Reviewed: 09/25/2017Reviewed by: Jesus Cheatham - Fully AssessedReason for Visit: Follow Up [171]Primary Visit Diagnosis:Essential hypertension [I10] Other Visit Diagnoses:Premature atrial complexes [I49.1] PVC (premature ventricular contraction) [I49.3] Obesity, Class III, BMI 40-49.9 (morbid obesity) ([facility]) [E66.01]Order(s):lisinopril (ZESTRIL, PRINIVIL) 5 mg tabletTake 1 [...] RN 09/25/2017 10:15 AM >> JEROME BYRNES [facility] Sep 25, 2017 10:15 AM Received from: External Pharmacy >> Shane Velasquez RN 09/25/2017 10:16 AM >> JEROME BYRNES [facility] Sep 25, 2017 10:16 AMProblem List [...] Status:Closed by NANI CHEATHAM MD on 09/25/17 [facility] PROGRESSon 09-25-2017 PROGRESS HNO ID: [id number] thor: Jesus Petersonervice: (none)Author Type: PhysicianType: Progress NotesFiled: 09/25/2017 10:54 AMNote Text:[facility] Department of Cardiovascular MedicineOUTPATIENT VISIT DATE 09/25/16OUTPATIENT VISIT TYPEESTABLCONE HEALTH ALAM[facility]ALPR[facility]MARY [facility]ARE PHYSICIAN:Joseph Harris, DO[address] [place] [address]Lvtrc: [phone]: [phone] COMPLAINT:Patient presents with:Follow UpHISTORY OF PRESENT ILLNESS:Gladis Michael is a 41 year old female with a past cardiac history ofpalpitations, hypertensive episodes associated with flushing.05/22/2017The patient presents today as a new consult. The patient has previouslybeen cared for by a pediatrics teacher in [place]. She has been on pindolol andlisinopril for many years. She apparently did not tolerate metoprolol inthe past. She claims that metoprolol made her heart rate go into [id number]. The patient states that she has episodes off and on of a flushedfeeling followed by high blood pressure readings and dizziness. She alsofeels her heart racing. She feels this has been worse over the past 2weeks. She has had episodes like this though for many years. [facility] including a cardiac CTA,pharmacologic stress, echo and monitors. Unfortunately I do not have anyof those records to review. The patient was seen in the emergency roomearer today for epistaxis. She also was seen in the emergency room [place] of [place]. Her workup wasnegative. There was no evidence of any arrhythmia during her workup hereat this emergency room today. Her blood tests were within normal limits.Her troponin was normal. EKG was unremarkable. The patient admits thatshe gets very anxious. She has had problems with this for some time. [facility] her on Zoloft. [...] kg (238 lb) SpO2 100% BMI 43.53 kg/l0Ykqeull: Well appearing, in no acute distress.Eyes: Conjunctiva [...] I49.1 (primarydiagnosis), seen on Holter monitor in 2015.2. PVC (premature ventricular contraction) - ICD9: 427.69, ICD10: I49.3,rare PVCs on Holter monitor in 2015.3. Palpitations - ICD9: 785.1, ICD10: R00.2, feelings of palpitationsassociated with elevated blood pressure and flushed feeling, these havebeen occurring for years. Patient had negative workup in [place]. Placedon pindolol and lisinopril.4. Non-rheumatic mitral regurgitation, [...] provided to the requesting physician by way ofshared medical record or to the requesting physician via U.S. Mail.This document was generated utilizing TouchOne Technologyation. I have reviewedand verified that the contents of the document are accurate with theexception of minor grammatical, spelling and punctuation errors.CONTACT INFORMATION:Thank you for allowing us to participate in the care of this very pleasantpatient. Please free to contact us if we can be of any furtherassistance.Jesus Cheatham MD, [facility] HOSPITALCRluis antonio and Mary MurrayDepartment of Cardiovascular MedicineHavasu Regional Medical Center and Vascular Institute[address] [address]Hanxym: [phone] Normal [facility] CT-CT Head or Brain w/o Cont rast IMPORTon 09-23-2017 CT-CT Head or Brain w/o Contrast IMPORT Images were obtained outside of [facility] [id number] Normal [facility] CNOVSPon 06-05-2017 CNOVSP Visit (SP) Office (VEE) -------GLADIS MICHAEL ([id number]) 1975 [facility] Time Provider Wfbxligggk06/28/17 3:15 PM ISAAC SHELTON During your visit today, we recorded the following information about you: Temperature Respiration Blood pressure Weight 98.7 degrees 18/minute 168/82 105.1 kg Height 1.6 Marycarmenvalorie Husain DO Cat 06/07/2017 12:55 AM SignedPATIENT NAME: Gladis ElderRN: [id number] PHYSICIAN: Joseph Harris, [address] [place] [address]PIURINB CARE PHYSICIAN: Joseph Harris DOOTHER PHYSICIANS:CHIEF COMPLAINT: [...] r nose [facility] throat [facility] [place] [facility] [place] [facility] . We will continue to monitor [...] for5 days straight. Went to ER 02/26. Mcclain was negative, strep negative. Flunegative. She was [...] racing heart and elevated BP.She previously saw pediatrics teacher in [place].She is scheduled for echo. She has valvular issues [place]. Cough, sore throat [...] plan. I answered allquestions satisfactorily..Hai Shelton D.O.Medical OncologistSeminole, [place]Referring Provider: ISAAC SHELTON [[id number]]Allergies As of Date: 06/05/2017 Noted Allergy ReactionTOPROL XL (METOPROLOL) 04/11/2016 14 - Other: See Comments Comments: heart races per patientDate Reviewed: 06/05/2017Reviewed by: Dnona Stahl - Fully AssessedReason for Visit: Lymphocytosis [Other] Cmt: 5 week follow upPrimary Visit Diagnosis:Lymphocytosis [D72.820] Other Visit Diagnosis:Cervical adenopathy [R59.0]Order(s):HIV 1,2 COMBO (AG/AB) [SQHIV12] Order #: [id number] FUTUREDisposition: Return in about 1 year (around 06/05/2018), or cancel [place] f[place] in [place]Follow-up and Disposition History RecordedPrescriptions as of 06/05/2017 [...] by ISAAC SHELTON DO on 06/07/17 Normal [facility] HIV 12 Combo (Ag/Ab)on 06-05 HIV 12 Ag/Ab Non Reactive Normal Non Reactive [facility] Comment on above: Result Comment: (NOT E)HIV Information: [place] Rev. Code 3701.243(E):This information has been disclosed [...] or diagnoses. Performed By: #### H IV12C ####[facility] [address] [place], [place] [phone] PROGRESSon 06-05-2017 PROGRESS HNO ID: [id number] thor: Isaac Carrasco: (none)Author Type: PhysicianType: Progress NotesFiled: 06/07/2017 12:55 AMNote Text:PATIENT NAME: Gladis ElderRN: [id number] PHYSICIAN: Joseph Harris DO[address] [place] [address]VVPROLX CARE PHYSICIAN: MASOOD Rubin PHYSICIANS:CHIEF COMPLAINT: Lymphocytosis [...] and throat evaluation likely from [facility] [place] physicianDr. HERNANDEZ. We will continue to monitor [...] for5 days straight. Went to ER 02/26. Mcclain was negative, strep negative.Flu negative. She was [...] and racing heart and elevatedBP.She previously saw pediatrics teacher [place].She is scheduled for echo. She has valvular issues and [place] getting themyearly [place] here. Cough, sore throat [...] my recommendations listed below. The patient Gladis Daniels Fernandaverbalized understanding and agreed with these recommendations and plan.I answered all questions satisfactorily..Hai Shelton D.O.Medical OncologistThree [facility] Hospital Cancer [facility] Remote Abs Gran + CBC (for F HC use only)on 06-05-2017 Absol Gran Count 10.28 k/uL High 1.45-7.[address] [facility] Erythrocyte distribution width Auto Ratio (RBC) 13.9 % Normal 11.5-15.0 [facility] Erythrocytes (RBC) 4.91 10*6/uL Normal 3.90-5.20 [facility] Hematocrit (HCT) 39.7 % Normal 36.0-46.[address] [facility] Hemoglobin mass conc (Bld) 13.2 g/dL Normal 11.5-15.5 [facility] MCH 26.9 pG Normal 26.0-34.0 [facility] MCHC mass conc (RBC) 33.2 g/dL Normal 30.5-36.0 [facility] MCV 80.9 fL Normal 80.0-100.0 [facility] Platelet mean volume (PMV) 9.5 fL Normal 9.0-12.7 [facility] Platelets 497 10*3/uL High 150-400 [facility] WBC (Leukocytes) 14.20 10*3/uL High 3.70-11.00 [facility] CNOVon 05-22-2017 CNOV Office Visit (CRISTINA) -------GLADIS MICHAEL ([id number]) 1975 FDate Time Provider Kwncrobxpu93/14/17 2:00 PM JESUS CHEATHAM During your visit today, we recorded the following information about you: Pulse Respiration Blood pressure Weight 69/minute 18/minute 139/77 101.6 kg Height 1.6 Rishi Cheatham MD 05/22/2017 3:15 PM [facility] Vascular InstituteWarner Springs and Mary Murray Department of Cardiovascular MedicineOUTPATIENT VISIT DATE 05/22/17OUTPATIENT VISIT TYPENEWPRWAKE FOREST BAPTIST HEALTH DAVIE HOSPITALRY CARE PHYSICIAN:Joseph Harris, DO[address] [place] [address]Vkruk: [phone]: [phone] COMPLAINT:Patient presents with:PalpitationsHISTORY OF PRESENT ILLNESS:Gladis Michael is a 41 year old female with a past cardiac history ofpalpitations, hypertensive episodes associated with flushing.The patient presents today as a new consult. The patient has previously beencared for by a pediatrics teacher in [place]. She has been on pindolol andlisinopril for many years. [facility] She claims that metoprolol made her heart rate go into the 200s. Thepatient states that she has episodes off and on of a flushed feeling followedby high blood pressure readings and dizziness. She also feels her heartracing. She feels this has been worse over the past 2 weeks. She has hadepisodes like this though for many years. She had a complete workup in [facility] including a cardiac CTA, pharmacologic stress, echo and monitors. Unfortunately I do not have any of those records to review. The patient wasseen in the emergency room earlier today for epistaxis. She also was seen int emergency room in [place] last Friday with a complaint of dizziness. [...] kg (224 lb) SpO2 98% BMI 39.68 kg/z4Esnuoen: Well appearing, in no acute distress.Eyes: Conjunctiva [...] for years. Patient had negative workup in [place]. Placed onpindolol and lisinopril.4. Non-rheumatic mitral regurgitation, [...] via U.S. Mail.This document was generated utilizing [employer] dictation. I have reviewed andverified that the contents of the document are accurate with the exception ofminor grammatical, spelling and punctuation errors.CONTACT INFORMATION:Thank you for allowing us to participate in the care of this very pleasantpatient. Please free to contact us if we can be of any further assistance.Jesus Cheatham MD, FACCRobert and Mary MurrayDepartment of Cardiovascular MedicineOhiohealth Doctors Hospitalrt and Vascular Institute[address] [address]Eatfxg: [phone] Referring Provider: ISAAC SHELTON [[id number]]Allergies As of Date: 05/22/2017 Noted Allergy ReactionTOPROL XL (METOPROLOL) 04/11/2016 14 - Other: See Comments Comments: heart races per patientDate Reviewed: 05/22/2017Reviewed by: Jesus Cheatham - Fully AssessedReason for Visit: Palpitations [79]Primary Visit Diagnosis:Premature atrial complexes [I49.1] Other Visit Diagnoses:PVC (premature ventricular contraction) [I49.3] Palpitations [R00.2] Non-rheumatic mitral regurgitation, mild [I34.0]Order(s):ECHO [[id number]] Order #: [id number]: 1 FUTUREPrescriptions as of 05/22/2017 Sig: PINDOLOL [...] Status:Closed by NANI CHEATHAM MD on 05/22/17 [facility] PROGRESSon 05-22-2017 PROGRESS HNO ID: [id number] thor: Jesus Petersonervice: (none)Author Type: PhysicianType: Progress NotesFiled: 05/22/2017 3:15 PMNote Text:Heart and Vascular InstituteWarner Springs and Mary Lowformerly [facility] Department of Cardiovascular MedicineOUTPATIENT VISIT DATE 05/22/17OUTPATIENT VISIT TYPENEWPRIMARY CARE PHYSICIAN:Joseph Harris, DO[address] [facility] [address]Bnkpo: [phone]: [phone] COMPLAINT:Patient presents with:PalpitationsHISTORY OF PRESENT ILLNESS:Gladis Michael is a 41 year old female with a past cardiac history ofpalpitations, hypertensive episodes associated with flushing.The patient presents today as a new consult. The patient has previouslybeen cared for by a pediatrics teacher in [place]. She has been on pindolol andlisinopril for many years. She apparently did not tolerate metoprolol inthe past. She claims that metoprolol made her heart rate go into csc180x. The patient states that she has episodes off and on of a flushedfeeling followed by high blood pressure readings and dizziness. She alsofeels her heart racing. She feels this has been worse over the past 2weeks. She has had episodes like this though for many years. [facility] including a cardiac CTA,pharmacologic stress, echo and monitors. Unfortunately I do not have anyof those records to review. [facility]. [place] of [place]iness. Her workup wasnegative. There was no evidence of any arrhythmia during her workup hereat this emergency room today. Her blood tests were within normal limits.Her troponin was normal. EKG was unremarkable. The patient admits thatshe gets very anxious. She has had problems with this for some time. [facility] her [facility] Z[facility]. She [...] kg (224 lb) SpO2 98% BMI 39.68 kg/t7Lhowljt: Well appearing, in no acute distress.Eyes: Conjunctiva [...] for years. Patient had negative workup in [place]. Placedon pindolol and lisinopril.4. Non-rheumatic mitral regurgitation, [...] physicianvia U.S. Mail.This document was generated utilizing TouchOne Technologyation. I have reviewedand verified that the contents of the document are accurate with theexception of minor grammatical, spelling and punctuation errors.CONTACT INFORMATION:Thank you for allowing us to participate in the care of this very pleasantpatient. Please free to contact us if we can be of any furtherassistance.Jesus Cheatham MD, [facility] and Mary MurrayDepartment of Cardiovascular MedicineOhiohealth Doctors Hospitalrt and Vascular Institute[address] [address]Fagdpa: [phone] [facility] SystemOVSPon 04-28-2017 OVS Visit (SP) Office (HEMASA) -------GLADIS MICHAEL ([id number]) 1975 [facility] Time Provider Mtfzqljjeu02/20/17 11:15 AM ISAAC SHELTON During your visit today, we recorded the following information about you: Temperature Pulse Respiration Blood pressure 98.7 degrees 71/minute 18/minute 151/101 Weight Height 103.2 kg 1.6 Kassidy Shelton DO 05/03/2017 3:18 PM SignedPATIENT NAME: Gladis ElderRN: [id number] PHYSICIAN: Joseph Harris DO[address] [place] [address]SRAODSX CARE PHYSICIAN: MASOOD Rubin PHYSICIANS:CHIEF COMPLAINT: Lymphocytosis [...] for5 days straight. Went to ER 02/26. Mcclain was negative, strep negative. Flunegative. She was [...] I answered all questions satisfactorily..Hai Shelton D.O.Medical OncologistThree Rivers Hospital Cancer [place], [place]Referring Provider: ISAAC SHELTON [[id number]]Allergies As of Date: 04/28/2017 Noted Allergy ReactionTOPROL XL (METOPROLOL) 04/11/2016 14 - Other: See Comments Comments: heart races per patientDate Reviewed: 04/28/2017Reviewed by: Josephine Moscoso - Fully AssessedReason for Visit: Lymphocytosis [Other] Cmt: 3 week follow upPrimary Visit Diagnosis:Lymphocytosis [D72.820]Order(s):CT CHEST WO IVCON [[id number]] Order #: [id number] FUTURE CT CHEST W IVCON [[id number]] Order #: [id number] FUTURE iv contrast (radiology procedure)CT Chest W [...] [address] CT NECK SOFT TISSUE W IVCON [[id number]] Order #: [id number] FUTURE [] iv contrast (radiology procedure)Inject 1 [...] by ISAAC SHELTON DO on 05/03/17 Normal [facility] PROGRESSon 04-28-2017 PROGRESS HNO ID: [id number] thor: Isaac SheltonService: (none)Author Type: PhysicianType: Progress NotesFiled: 05/03/2017 3:18 PMNote Text:PATIENT NAME: Gladis PatelFlorianRN: [id number] PHYSICIAN: Joseph Harris DO[address] [place] [address]LXUDQYP CARE PHYSICIAN: Joseph Harris DOOTHER PHYSICIANS:CHIEF COMPLAINT: [...] for5 days straight. Went to ER 02/26. Mcclain was negative, strep negative.Flu negative. She was [...] I answered all questions satisfactorily..Hai Shelton D.O.Medical OncologistSem[place], [place] Normal [facility] Remote Abs Gran + CBC (for F HC use only)on 04-28-2017 Absol Gran Count 7.86 k/uL High 1.45-7.[address] [facility] Erythrocyte distribution width Auto Ratio (RBC) 13.9 % Normal 11.5-15.0 [facility] Erythrocytes (RBC) 4.82 10*6/uL Normal 3.90-5.20 [facility] Hematocrit (HCT) 39.2 % Normal 36.0-46.[address] [facility] Hemoglobin mass conc (Bld) 13.3 g/dL Normal 11.5-15.5 [facility] MCH 27.6 pG Normal 26.0-34.0 [facility] MCHC mass conc (RBC) 33.9 g/dL Normal 30.5-36.0 [facility] MCV 81.3 fL Normal 80.0-100.0 [facility] Platelet mean volume (PMV) 9.4 fL Normal 9.0-12.7 [facility] Platelets 470 10*3/uL High 150-400 [facility] WBC (Leukocytes) 11.76 10*3/uL High 3.70-11.00 [facility] CNOVon 04-10-2017 CNOV Office Visit (OTOLMN) -------GLADIS MICHAEL ([id number]) 1975 [facility] Time Provider Ggpdnqzcco10/2/17 10:00 AM CANDIS HERNANDEZ OTOLMN During your visit today, we recorded the following information about you: Blood pressure Weight Height 142/85 97.5 kg 1.6 Akila Joshi Ma 04/10/2017 10:01 AM SignedTobacco Use: [employer] smoking cessation packet given? N/A - Patient [...] and long smoking history age 18 to 2005 1ppd on and off. Shehas been following [...] further evaluated viaultrasound if clinically indicated.LabsCBCRecent Labs 04/07/025352QCH 13.32*HB 13.4HCT 40.2PLT 470*BMPInvalid input(s): PHOSCOAGsPHYSICAL EXAM:Vitals - BP 142/85 (BP Site: Left Arm, BP Position: Sitting, BP Cuff Size:Extra Large Adult) Ht 160 cm (5' 3ANDquot;) Wt 97.5 kg (215 lb) SpO2 98% BMI 38.09 kg/t7Kqtaxstaunpsks - General Appearance: well developed, well nourished, [...] 1 Each; Refill: 0SIGNATURE: Candis Hernandez, MDPAGER: [id number] of SERVICE: April 16, 2017TIME of SERVICE: 1:01 PMReferring Provider: SELF [[id number]]Allergies As of Date: 04/10/2017 Noted Allergy ReactionTOPROL XL (METOPROLOL) 04/11/2016 14 - Other: See Comments Comments: heart races per patientDate Reviewed: 04/10/2017Reviewed by: Candis Garcia AssessedReason for Visit: New Patient [172] Cmt: Throat lesion with constant couhgt and flem per patient.Reason For Visit History RecordedPrimary Visit Diagnosis:Cervical adenopathy [R59.0] Other Visit Diagnoses:Sleep disorder breathing [G47.30] LPRD (laryngopharyngeal reflux disease) [K21.9]Order(s):POLYSOMNOGR AM (PSG)/HOME SLEEP TEST (HST) [[id number]] Order #: [id number] FUTURE omeprazole (PRILOSEC) 20 mg capsuleTake 1 capsule by mouth once daily for 30 days.Disp: 30 capsuleRfl: 0 CT NECK SOFT TISSUE W IVCON [[id number]] Order #: [id number] FUTURE [] iv contrast (radiology procedure)Inject 1 [...] TABLET Take 5 mg by mouth twice kawsi* SERTRALINE 50 MG TABLET Take 50 mg by mouth once kwasi* LISINOPRIL 2.5 MG TABLET Take 2.5 mg by mouth once buck* OMEPRAZOLE 20 MG CAPSULE,PAOLA* Take 1 capsule by mouth once * IV CONTRAST (RADIOLOGY PROCED* Inject 1 Each intravenously o*Medication notes this encounter ONDANSETRON HCL 8 MG TABLET >> Sol Joshi Ma 04/10/2017 10:01 AM >> SOL JOSHI MA Apr 10, 2017 10:01 AM Not takingProblem List As Of Date 04/10/2017 Noted Resolved Lymphocytosis [D72.820] INVALID FOR* Cervical adenopathy [R59.0] INVALID FOR*Visit Notes:>> Sol Harper Apr 10, 2017 10:01 AM Status: SignedTobacco Use: [employer] smoking cessation packet given? N/A - Patient [...] guidelines link.Follow-up and Disposition History RecordedEncounter Number: [id number] Status:Closed by CANDIS HERNANDEZ MD on 04/16/17 Normal [facility] PROGRESSon 04-10-2017 PROGRESS HNO ID: [id number] thor: Candis Salinas: (none)Author Type: PhysicianType: Progress NotesFiled: 04/16/2017 1:04 PMNote Text:Gladis [id number] 2016Oto-HNS ConsultationReferring Physician: Dr. Isaac Winston for [...] and long smoking history age 18 to 2005 1ppd on andoff. She has been following [...] further evaluated viaultrasound if clinically indicated.LabsCBCRecent Labs 249WBC 13.32*HB 13.4HCT 40.2PLT 470*BMPInvalid input(s): PHOSCOAGsPHYSICAL EXAM:Vitals - BP 142/85 (BP Site: Left Arm, BP Position: Sitting, BP Cuff Size:Extra Large Adult) Ht 160 cm (5' 3 ) Wt 97.5 kg (215 lb) SpO2 98% BMI 38.09 kg/v8Ygodkmuxrssugm - General Appearance: well developed, well nourished, [...] Dispense: 1Each; Refill: 0SIGNATURE: Candis Hernandez, MDPAGER: [id number] of SERVICE: April 16, 2017TIME of SERVICE: 1:01 PM Normal [facility] CNOVSPon 04-07-2017 CNOVSP Visit (SP) Office (HEMASA) -------NETTIE MICHAELZAMOISES Daniels ([id number]) 1975 FDate Time Provider Jcxwqjskft55/30/17 1:45 PM ISAAC SHELTON During your visit today, we recorded the following information about you: Temperature Pulse Respiration Blood pressure 98.5 degrees 75/minute 18/minute 156/106 Weight Height 102.2 kg 1.6 mTvalorie Shelton DO 04/11/2017 10:43 AM SignedPATIENT NAME: Gladis PatelarMRN: [id number] PHYSICIAN: MICHAEL Rub[address] [place] [address]CESKWEO CARE PHYSICIAN: MASOOD Rubin PHYSICIANS:CHIEF COMPLAINT: Lymphocytosis [...] on 04/07/17. Return in about 2 weeks (aulxcf6104/21/2017), or f/u 2 wks.. HPI: This is [...] for5 days straight. Went to ER 02/26. Mcclain was negative, strep negative. Flunegative. She was [...] I answered all questions satisfactorily..Hai Shelton D.O.Medical OncologistThree Rivers Hospital Cancer [place], [place]Referring Provider: ISAAC SHELTON [[id number]]Allergies As of Date: 04/07/2017 Noted Allergy ReactionTOPROL [...] by ISAAC SHELTON DO on 04/11/17 Normal [facility] LDon 04-07-2017 LD 212 U/L Normal 135-214 [facility] Comment on above: Performed By: #### L D6 ####[facility] [address] [place], [place] [id number] PROGRESSon 04-07-2017 PROGRESS HNO ID: [id number] thor: Isaac SheltonSer: (none)Author Type: PhysicianType: Progress NotesFiled: 04/11/2017 10:43 AMNote Text:PATIENT NAME: Gladis PatelarMRN: [id number] PHYSICIAN: Joseph Harris DO[address] [facility] [address]MCMWHOJ CARE PHYSICIAN: Joseph Harris DOOTHER PHYSICIANS:CHIEF COMPLAINT: [...] for5 days straight. Went to ER 02/26. Mcclain was negative, strep negative.Flu negative. She was [...] I answered all questions satisfactorily..Hai Shelton D.O.Medical OncologistThree [facility] Hospital [facility] CNCOon 03-27-2017 CNCO Letter TextNort[address] [address]Vgtaa: [phone]: [facility] [place], [place] [address]Nawis: [phone]: [id number] [place], [place] [address]Cuvex: [phone]: Toll Free: [phone] [email or web address] Saad Arredondo M.D., Carlos Gleason M.D.Luiz Berrios M.D.Isaac Shelton D.O..Audrey Jang M.D. FACROSaju A. Rajan, M.D.March 27, 2017Nettiejo Michael[address] [facility] [address]Hcwj Ms. Michael,You missed your scheduled appointment on 03/27/17. Please call our officeto reschedule. If you need to cancel any future appointments, please call togive us 24 hour notice so that we can offer your appointment to anotherpatient.Sincerely,Tulio Au M.D. [facility] CT ABD/PEL W IVCONon 017 CT ABD/PEL W IVCON * * *Final Report* * *DATE OF EXAM: Mar 19 2017 9:29AM [facility] 0530 - CT ABD/PEL W [...] any questions regarding this interpretation, please call [phone].If you are unable to reach us at the number above,please feel free to contact [facility] eRadiology at [phone]_ IDCSIACN Normal [facility] CT CHEST W IVCONon 7 CT CHEST W IVCON * * *Final Report* * *DATE OF EXAM: Mar 19 2017 9:29AM [facility] 0539 - CT CHEST W [...] Mar 19 2017 2:46PDictated by: FERDINAND BLACK MDThidafne examination was interpreted and the report reviewed and electronically signed by: FERDINAND BLACK MD on Mar 19 2017 3:05PM ESTThank you for allowing us to participate in the care of your patient.Should there be any questions regarding this interpretation, please call [phone].If you are unable to reach us at the number above,please feel free to contact [facility] eRadiology at [phone]_ IDCSIACN Normal [facility] CT NECK SOFT TISSUE W IVCONo n 03-19-2017 CT NECK SOFT TISSUE W IVCON * * *Final Report* * *DATE OF EXAM: Mar 19 2017 9:28AM [facility] 0013 - CT NECK SOFT [...] parapharyngeal space: Fat and muscle planes are normal.Community Service Manager space: Visualized mandible, muscles of mastication, pterygopalatine [...] any questions regarding this interpretation, please call [phone].If you are unable to reach us at the number above,please feel free to contact [facility] eRadiology at [phone]_ IDCSIACN Normal [facility] PROGRESSon 10-11-2017 PROGRESS HNO ID: [id number] thor: Sheri Banegas mtService: (none)Author Type: (none)Type: Progress NotesFiled: 03/19/2017 9:32 AMNote Text: RADIOLOGY SERVICE PROGRESS NOTESERVICE DATE: 03/19/2017SERVICE TIME: 8:33 AMPATIENT IDENTITY VERIFICATION COMPLETED USING TWO (2) METHODS: Patientconfirmed name and Date of verbally.PATIENT GENDER DATA: .femaleALLERGIES: Reviewed and unchangedMEDICATIONS REVIEWED: Not applicablePATIENT RELEVANT IMPLANT DATA REVIEWED: Not ApplicableCREATININE:Creati nineDate Value Ref Range Hvckgd2903/14/2017 0.59 0.58 - 0.96 mg/dL Final04/11/2016 0.56 (L) 0.58 - 0.96 mg/dL Final eGFR-All Other RacesDate Value Ref Range Neiubz3303/14/2017 >60 . FinalComment:eGFR (Estimated GFR) Units of [...] actual GFR. eGFR- AmericanDate Value Ref Range Ojiiqj3603/14/2017 >60 Final Reference range (age 0-9 years) [...] TIME: 906PATIENT DISCHARGED TO: Ambulatory patient, left AL department area.A Diagnostic radioactive procedure has taken place, with no furtherprecautions necessary other than routine body substance precautions. Moreinformation regarding radiation safety can be found using this link:[email or web address]% 20-%20Diagnostic%20Nuclear% 20Medicine%20Procedures.pdf SIGNATURE: Sheri Banegas [facility] PATIENT NAME: Gladis WaltersATE: March 19, 2017 : 8:33 AM PAGER/CONTACT #: Normal [facility] Comp Metabolic Panelon 03-14 Alanine aminotransferase (ALT) 25 U/L Normal 7-38 [facility] Comment on above: Performed By: #### R ETIC, HREMOP, CMP, TSH, KLFRS, MPASRM, SEPG ####[facility] [address] [place], [place] [phone] Albumin 4.5 g/dL Normal 3.9-4.9 [facility] Comment on above: Performed By: #### R ETIC, HREMOP, CMP, TSH, KLFRS, MPASRM, SEPG ####[facility] [address]CS[address], [place] [phone] Alkaline phosphatase (ALP) 60 U/L Normal 32-117 [facility] Comment on above: Performed By: #### R ETIC, HREMOP, CMP, TSH, KLFRS, MPASRM, SEPG ####[facility] [address] AveCSeneca, [place] [phone] Anion gap 14 mmol/L Normal 9-18 [facility] Comment on above: Performed By: #### R ETIC, HREMOP, CMP, TSH, KLFRS, MPASRM, SEPG ####[facility]obby [place] [phone] Aspartate aminotransferase (AST) 18 U/L Normal 13-35 [facility] Comment on above: Performed By: #### R ETIC, HREMOP, CMP, TSH, KLFRS, MPASRM, SEPG ####[facility]CBobby [place] [phone] Bilirubin (total) 0.7 mg/dL Normal 0.2-1.3 [facility] Comment on above: Performed By: #### R ETIC, HREMOP, CMP, TSH, KLFRS, MPASRM, SEPG ####[place] [address] [place] [phone] Calcium 9.5 mg/dL Normal 8.5-10.2 [facility] Comment on above: Performed By: #### R ETIC, HREMOP, CMP, TSH, KLFRS, MPASRM, SEPG ####[place] [address]CB[address] [place] [phone] Chloride 97 mmol/L Normal 97-105 [facility] Comment on above: Performed By: #### R ETIC, HREMOP, CMP, TSH, KLFRS, MPASRM, SEPG ####[facility]ClevelGloria [place] [phone] CO2 25 mmol/L Normal 22-30 [facility] Comment on above: Performed By: #### R ETIC, HREMOP, CMP, TSH, KLFRS, MPASRM, SEPG ####[place] [address]ClevelGloria [place] [phone] Creatinine 0.59 mg/dL Normal 0.58-0.96 [facility] Comment on above: Performed By: #### R ETIC, HREMOP, CMP, TSH, KLFRS, MPASRM, SEPG ####[facility], [place] [phone] eGFR (non-black) mL/min/{1.73_m2} Normal [facility] Comment on above: Result Comment: eGFR [...] ETIC, HREMOP, CMP, TSH, KLFRS, MPASRM, SEPG ####[facility], [place] [phone] Glucose mass conc 126 mg/dL High 74-99 [facility] Comment on above: Result Comment: The [place] Diabetes Association (ADA) provides guidance for cutoff [...] Standards of Medical Care in Diabetes 2016, [place] [employer]. Diabetes Care. 2016.39(Suppl 1). Performed By: #### R ETIC, HREMOP, CMP, TSH, KLFRS, MPASRM, SEPG ####[facility] [place], [place] [phone] Potassium molar conc 4.3 mmol/L Normal 3.7-5.1 [facility] Comment on above: Performed By: #### R ETIC, HREMOP, CMP, TSH, KLFRS, MPASRM, SEPG ####[place] [address]CS[address], [place] [phone] Protein 8.4 g/dL High 6.3-8.0 [facility] Comment on above: Performed By: #### R ETIC, HREMOP, CMP, TSH, KLFRS, MPASRM, SEPG ####[place] [address] [place] [phone] Sodium 136 mmol/L Normal 136-144 [facility] Comment on above: Performed By: #### R ETIC, HREMOP, CMP, TSH, KLFRS, MPASRM, SEPG ####[place] [address] [place] [phone] Urea nitrogen 10 mg/dL Normal 7-21 [facility] Comment on above: Performed By: #### R ETIC, HREMOP, CMP, TSH, KLFRS, MPASRM, SEPG ####[place] [address] [place] [phone] Hepatitis Remote Panelon BSA (Body Surface Area) Negative Normal Negative [facility] Comment on above: Performed By: #### R ETIC, HREMOP, CMP, TSH, KLFRS, MPASRM, SEPG ####[place] [address], [place] [phone] Hep B Core Ab,Total Negative Normal Negative [facility] Comment on above: Performed By: #### R ETIC, HREMOP, CMP, TSH, KLFRS, MPASRM, SEPG ####[place] [address], [place] [phone] Hepatitis C Ab IA Negative Normal Negative [facility] Comment on above: Performed By: #### R ETIC, HREMOP, CMP, TSH, KLFRS, MPASRM, SEPG ####[facility]C[place], [place] [phone] HepB Surface Ab,Qual Negative Normal Negative [facility] Comment on above: Result Comment: NEGA TIVE Performed By: #### R ETIC, HREMOP, CMP, TSH, KLFRS, MPASRM, SEPG ####[facility], [place] [phone] [place]/Cope,Free,Seron 2016 K/L Ratio, Serum 1.99 High 0.26-1.[address] [facility] Comment on above: Performed By: #### R ETIC, HREMOP, CMP, TSH, KLFRS, MPASRM, SEPG ####[facility], [place] [phone] [place], Free, Serum 32.8 mg/L High 3.30-19.40 [facility] Comment on above: Result Comment: Rare ly, increased serum free light chains values may not be detected due to antigen excess phenomenon. Results should always be correlated with other laboratory results and clinical findings. Performed By: #### R ETIC, HREMOP, CMP, TSH, KLFRS, MPASRM, SEPG ####[facility]ClevelHope, [place] [phone] Lambda, Free, Serum 16.5 mg/L Normal 5.7-26.3 [facility] Comment on above: Result Comment: Rare ly, increased serum free light chains values may not be detected due to antigen excess phenomenon. Results should always be correlated with other laboratory results and clinical findings. Performed By: #### R ETIC, HREMOP, CMP, TSH, KLFRS, MPASRM, SEPG ####[facility]C[place], [place] [phone] Monoclonl Protein,Blon 03-14 MPA Parminder/Milner Ratio 2.08 Normal 1-3 [facility] Comment on above: Performed By: #### R ETIC, HREMOP, CMP, TSH, KLFRS, MPASRM, SEPG ####[facility] [address] AveClevelGloria [place] [phone] MPA Result No M protein is identified. Normal No M protein is identified. [facility] Comment on above: Performed By: #### R ETIC, HREMOP, CMP, TSH, KLFRS, MPASRM, SEPG ####[facility] AveCPeter [place] [phone] MPA Serum IgA 173 mg/dL Normal 78-391 [facility] Comment on above: Performed By: #### R ETIC, HREMOP, CMP, TSH, KLFRS, MPASRM, SEPG ####[facility]CB[address] [place] [phone] MPA Serum IgG 1650 mg/dL High 717-1411 [facility] Comment on above: Performed By: #### R ETIC, HREMOP, CMP, TSH, KLFRS, MPASRM, SEPG ####[phone] MPA Serum IgM 186 mg/dL Normal 53-334 [facility] Comment on above: Performed By: #### R ETIC, HREMOP, CMP, TSH, KLFRS, MPASRM, SEPG ####[facility]CPeter [place] [phone] Serum [place] 1540 mg/dL High 534-1267 [facility] Comment on above: Performed By: #### R ETIC, HREMOP, CMP, TSH, KLFRS, MPASRM, SEPG ####[facility]ClevelGlor[address] [place] [phone] Serum Lambda 740 mg/dL High 253-653 [facility] Comment on above: Performed By: #### R ETIC, HREMOP, CMP, TSH, KLFRS, MPASRM, SEPG ####[facility]CS[address]eca, [place] [phone] Staff Review Reviewed [place] ([id number]) Normal [facility] Comment on above: Performed By: #### R ETIC, HREMOP, CMP, TSH, KLFRS, MPASRM, SEPG ####[facility]CS[address], [place] [phone] PB LG LEUK MARKERSon 017 PB LG LEUK MARKERS Account Credited Normal [facility] Comment on above: Result Comment: CANC HASMUKH PER STAFF REVIEW. FE [id number] available in [facility] under the Surgical Pathology Test listed in the Laboratory Tab. Performed By: #### L D6 ####[address] [phone] WBC (Leukocytes) 13.38 10*3/uL High 3.70-11.00 [facility] Comment on above: Performed By: #### L D6 ####[address] [phone] Protein Electrophor.on 03-14 Albumin 3.76 g/dL Normal 3.37-4.23 [facility] Comment on above: Performed By: #### L D6 ####[place] [address] [place], [place] [phone] Alpha 1 Globulin 0.19 gm/dL Normal 0.18-0.[address] [facility] Comment on above: Performed By: #### L D6 ####[place] [address] [place], [place] [phone] Alpha 2 Globulin 0.90 gm/dL Normal 0.52-0.[address] [facility] Comment on above: Performed By: #### L D6 ####[place] [address] [place], [place] [phone] Beta Globulin 1.15 gm/dL Normal 0.84-1.36 [facility] Comment on above: Performed By: #### L D6 ####[place] [phone] Gamma Globulin 1.80 gm/dL High 0.70-1.44 [facility] Comment on above: Performed By: #### L D6 ####[place] [phone] Interpretation SEE COMMENT Normal [facility] Comment on above: Result Comment: An a typical region of restricted mobility is identified on protein electrophoresis.The atypical region did not stain on accompanying immunofixation and therefore is unlikely to be a monoclonal immunoglobulin. Performed By: #### L D6 ####[place] [phone] M Protein Location N/A Normal [facility] Comment on above: Performed By: #### L D6 ####[place] [phone] M Ja Concentratn 0.00 gm/dL Normal 0.00 [facility] Comment on above: Performed By: #### L D6 ####[place] [phone] SPE Staff Review Reviewed by Delores Means [place] ([id number]) Normal [facility] Comment on above: Performed By: #### L D6 ####[place] [phone] Total Protein, SPE 7.8 g/dL Normal 6.0-8.4 [facility] Comment on above: Performed By: #### L D6 ####[place] [phone] Remote CBCDIF (for [facility] use o nly)on 03-14-2017 Abs Baso 0.14 k/uL High 0.00-0.10 [facility] Abs Mcclain 0.66 k/uL Normal 0.00-0.86 [facility] Abs Neut 10.25 k/uL High 1.45-7.50 [facility] Basophils/100 WBC Auto (Bld) 1.1 % Normal [facility] Eosinophils 0.08 10*3/uL Normal 0.00-0.45 [facility] Eosinophils/100 leukocytes 0.6 % Normal [facility] Erythrocyte distribution width Auto Ratio (RBC) 14.0 % Normal 11.5-15.0 [facility] Erythrocytes (RBC) 5.12 10*6/uL Normal 3.90-5.20 [facility] Hematocrit (HCT) 42.5 % Normal 36.0-46.[address] [facility] Hemoglobin mass conc (Bld) 14.1 g/dL Normal 11.5-15.5 [facility] Lymphocytes 1.98 10*3/uL Normal 1.00-4.00 [facility] Lymphocytes/100 leukocytes 15.1 % Normal [facility] MCH 27.5 pG Normal 26.0-34.0 [facility] MCHC mass conc (RBC) 33.2 g/dL Normal 30.5-36.0 [facility] MCV 83.0 fL Normal 80.0-100.0 [facility] Monocytes/100 leukocytes 5.0 % Normal [facility] Neutrophils/100 WBC Auto (Bld) 78.2 % Normal [facility] Platelet mean volume (PMV) 9.6 fL Normal 9.0-12.7 [facility] Platelets 609 10*3/uL High 150-400 [facility] WBC (Leukocytes) 13.11 10*3/uL High 3.70-11.00 [facility] Reticulocyteon 03-14-2017 Abs Retic 0.073 M/uL Normal 0.0180-0.10 00 [facility] Comment on above: Performed By: #### R ETIC, HREMOP, CMP, TSH, KLFRS, MPASRM, SEPG ####[facility] [address], [place] [phone] Retic% 1.4 % Normal 0.4-2.0 [facility] Comment on above: Performed By: #### R ETIC, HREMOP, CMP, TSH, KLFRS, MPASRM, SEPG ####[facility] [place], [place] [phone] TSHon 03-14-2017 Thyroid stimulating hormone (TSH) 0.537 uU/mL Normal 0.400-5.500 [facility] Comment on above: Result Comment: If t he patient is , TSH reference range varies by gestational period:First Trimester 0.100-2.500 uU/mLSecond Trimester 0.200-3.000 uU/mLThird Trimester 0.300-3.000 uU/mLReferences: 1. Sutton L, Delfina M, Anders MANDEL, et al. Management of Thyroid Dysfunction during and : An Endocrine Society Clinical Practice Guideline. J Clin Endocrinol Metab, 2012:97:9081-6170. 2. Conor ROSAS. Overview of thyroid disease in . UpToDate. 2016. Accessed on November 24, 2015. Performed By: #### R ETIC, HREMOP, CMP, TSH, KLFRS, MPASRM, SEPG ####[facility] [address] [place], [place] [phone] CNOVSPon 03-13-2017 CNOVS Visit (SP) Office ([place]) -------GLADIS MICHAEL ([id number]) 1975 FDate Time Provider Pmicvpwkud76/5/17 10:00 AM ISAAC SHELTON During your visit today, we recorded the following information about you: Temperature Pulse Respiration Blood pressure 99 degrees 96/minute 18/minute 143/93 Weight Height 103.5 kg 1.6 Kassidy Shelton DO 03/14/2017 2:41 PM SignedPATIENT NAME: Gladis PatelarMRN: [id number] PHYSICIAN: Joseph Harris, [address] [place] [address]YNKACFX CARE PHYSICIAN: MASOOD Rubin PHYSICIANS:CHIEF COMPLAINT: Lymphocytosis [...] three weeks now.Had few ER visits at [place] last year for LUQ pain and had [...] for5 days straight. Went to ER 02/26. Mcclain was negative, strep negative. Flunegative. She was [...] above; and my recommendations listed below. The patientElizamoises Michael verbalized understanding and agreed with theserecommendations and plan. I answered all questions satisfactorily..Hai Shelton D.O.Medical OncologistSeminole, [place]Referring Provider: ISAAC SHELTON [[id number]]Allergies As of Date: 03/13/2017 Noted Allergy ReactionTOPROL XL (METOPROLOL) 04/11/2016 14 - Other: See Comments Comments: heart races per patientDate Reviewed: 03/13/2017Reviewed by: Merna Gudino - Fully AssessedReason for Visit: Lymphocytosis [Other] Cmt: follow upPrimary Visit Diagnosis:Lymphocytosis [D72.820]Order(s):CT ABD/PEL W IVCON [[id number]] Order #: [id number] FUTURE CT CHEST W IVCON [[id number]] Order #: [id number] FUTURE iv contrast (radiology procedure)CT Chest ABD/PEL-Inject, [...] [address] CT NECK SOFT TISSUE W IVCON [[id number]] Order #: [id number] FUTURE [] iv contrast (radiology procedure)Inject 1 [...] GRADE LEUK MARKERS FC [SQPBLGLY] Order #: [id number] FUTURE STAFF REVIEW WITH CBC AND DIFF [SQSTREV] Order #: [id number]. #:[id number] COMP METABOLIC PANEL [SQCMP] Order #: [id number] FUTURE TSH BLD [SQTSH] Order #: [id number] FUTURE RETIC COUNT [SQRETIC] Order #: [id number] FUTURE PROTEIN ELECTROPHORESIS W/INTERP [SQSEPG] Order #: [id number] FUTURE CBC + DIFF (FOR REMOTE [facility] USE) [SQRCBCDF] Order #: [id number] FUTURE KAPPA/COPE,FREE,SER [SQKLFRS] Order #: [id number] FUTURE MONOCLONAL PROT BLD W/INTERP [SQMPASRM] Order #: [id number] FUTURE HEP REMOTE PANEL BL [SQHREMOP] Order #: [id number] FUTUREPrescriptions as of 03/13/2017 Sig: PINDOLOL 5 [...] by ISAAC SHELTON DO on 03/14/17 Normal [facility] LDon 03-13-2017 LD 164 U/L Normal 135-214 [facility] Comment on above: Performed By: #### L D6 ####[facility] [address] [place], [place] [phone] PROGRESSon 03-13-2017 PROGRESS HNO ID: [id number] thor: Isaac Carrasco: (none)Author Type: PhysicianType: Progress NotesFiled: 03/14/2017 2:41 PMNote Text:PATIENT NAME: Gladis Daniels AmandaarMRN: [id number] PHYSICIAN: [place] [address]MEODYAR CARE PHYSICIAN: Joseph Harris, MASOOD PHYSICIANS:CHIEF COMPLAINT: Lymphocytosis (primary encounter diagnosis)ASSESSMENT/PLAN:1 . [...] three weeks now.Had few ER visits at [place] last year for LUQ pain and had [...] for5 days straight. Went to ER 02/26. Mcclain was negative, strep negative.Flu negative. She was [...] Catheter, Enteric Contrastas designated per enteric contrast guidelinesALLERGIES:RUSS Patel Reactions- Toprol [...] I answered all questions satisfactorily..Hai Shelton D.O.Medical OncologistBaptist Health [facility] Abs Gran + CBC (for F HC use only)on 03-13-2017 Absol Gran Count 10.95 k/uL High 1.45-7.[address] [facility] Erythrocyte distribution width Auto Ratio (RBC) 14.0 % Normal 11.5-15.0 [facility] Erythrocytes (RBC) 5.04 10*6/uL Normal 3.90-5.20 [facility] Hematocrit (HCT) 41.8 % Normal 36.0-46.[address] [facility] Hemoglobin mass conc (Bld) 14.0 g/dL Normal 11.5-15.5 [facility] MCH 27.8 pG Normal 26.0-34.0 [facility] MCHC mass conc (RBC) 33.5 g/dL Normal 30.5-36.0 [facility] MCV 82.9 fL Normal 80.0-100.0 [facility] Platelet mean volume (PMV) 9.3 fL Normal 9.0-12.7 [facility] Platelets 592 10*3/uL High 150-400 [facility] WBC (Leukocytes) 14.22 10*3/uL High 3.70-11.00 [facility] Staff Rev w CBCDIFon 017 Abs Baso 0.20 k/uL High <0.11 [facility] Comment on above: Performed By: #### S PUMA ####[facility] [address], [place] [phone] Abs Mcclain 0.76 k/uL Normal <0.87 [facility] Comment on above: Performed By: #### S PUMA ####[facility] [address] Av[place], [place] [phone] Abs Neut 11.19 k/uL High 1.45-7.50 [facility] Comment on above: Performed By: #### S PUMA ####[facility], [place] [phone] Basophils/100 WBC Auto (Bld) 1.4 % Normal [facility] Comment on above: Performed By: #### S PUMA ####[place] [address]CBobby [place] [phone] Diff Comments SEE COMMENT Normal [facility] Comment on above: Result Comment: See Staff Review Performed By: #### S PUMA ####[place] [address] [place] [phone] Eosinophils 0.09 10*3/uL Normal <0.46 [facility] Comment on above: Performed By: #### S PUMA ####[place] [address] [place] [phone] Eosinophils/100 leukocytes 0.6 % Normal [facility] Comment on above: Performed By: #### S PUMA ####[address] [place] [phone] Erythrocyte distribution width Auto Ratio (RBC) 13.6 % Normal 11.5-15.0 [facility] Comment on above: Performed By: #### S PUMA ####[place] [address] [place] [phone] Erythrocytes (RBC) 5.19 10*6/uL Normal 3.90-5.20 [facility] Comment on above: Performed By: #### S PUMA ####[place] [address] [place] [phone] Hematocrit (HCT) 45.0 % Normal 36.0-46.[address] [facility] Comment on above: Performed By: #### S PUMA ####[place] [address] [place] [phone] Hemoglobin mass conc (Bld) 14.1 g/dL Normal 11.5-15.5 [facility] Comment on above: Performed By: #### S PUMA ####[place] [address] [place] [phone] Lymphocytes 2.42 10*3/uL Normal 1.00-4.00 [facility] Comment on above: Performed By: #### S PUMA ####[address], [place] [phone] Lymphocytes/100 leukocytes 16.5 % Normal [facility] Comment on above: Performed By: #### S PUMA ####[address], [place] [phone] MCH 27.2 pG Normal 26.0-34.0 [facility] Comment on above: Performed By: #### S PUMA ####[place] [phone] MCHC mass conc (RBC) 31.3 g/dL Normal 30.5-36.0 [facility] Comment on above: Performed By: #### S PUMA ####[address] [place] [phone] MCV 86.7 fL Normal 80.0-100.0 [facility] Comment on above: Performed By: #### S PUMA ####[place] [phone] Monocytes/100 leukocytes 5.2 % Normal [facility] Comment on above: Performed By: #### S PUMA ####[place] [phone] Neutrophils/100 WBC Auto (Bld) 76.3 % Normal [facility] Comment on above: Performed By: #### S PUMA ####[address] [phone] Pathologist (cervix/vaginal) Reviewed by Karon Levin DO ([id number]) Normal [facility] Comment on above: Performed By: #### S PUMA ####[address], [place] [phone] Platelet mean volume (PMV) 10.0 fL Normal 9.0-12.7 [facility] Comment on above: Performed By: #### S PUMA ####[place] [address] [place], [place] [phone] Platelets 622 10*3/uL High 150-400 [facility] Comment on above: Performed By: #### S PUMA ####[address] [phone] Red Cell Morph SEE COMMENT Normal [facility] Comment on above: Result Comment: Unre markable Performed By: #### S PUMA ####[address] [phone] Staff Review SEE COMMENT Normal [facility] Comment on above: Result Comment: Neut rophilic Leukocytosis Without Left ShiftThrombocytosis Performed By: #### S PUMA ####[address] [phone] WBC (Leukocytes) 14.66 10*3/uL High 3.70-11.00 [facility] Comment on above: Performed By: #### S PUMA ####[facility] [place] [address] [phone] CNOVSPon 02-06-2017 OVS Visit (SP) Office ([place]) -------GLADIS MICHAEL ([id number]) 1975 FDate Time Provider Department02/06/17 11:15 AM ISAAC SHELTON During your visit today, we recorded the following information about you: Temperature Pulse Respiration Blood pressure 98.6 degrees 66/minute 16/minute 161/102 Weight Height 108.6 kg 1.6 Kassidy Shelton DO 02/07/2017 12:59 AM SignedPATIENT NAME: Gladis ElderRN: [id number] PHYSICIAN: Joseph Harris DO[address] [place] [address]BTCSKTD CARE PHYSICIAN: MASOOD Rubin PHYSICIANS:CHIEF COMPLAINT: Lymphocytosis [...] three weeks now.Had few ER visits at [place] last year for LUQ pain and had [...] above; and my recommendations listed below. The patientElizamoises Michael verbalized understanding and agreed with theserecommendations and plan. I answered all questions satisfactorily..Hai Shelton D.O.Medical OncologistSeminole, [place]Referring Provider: ISAAC SHELTON [[id number]]Allergies As of Date: 02/06/2017 Noted Allergy ReactionTOPROL XL (METOPROLOL) 04/11/2016 14 - Other: See Comments Comments: heart races per patientDate Reviewed: 02/06/2017Reviewed by: Richard Leon) [place] - Fully AssessedReason for Visit: Lymphocytosis [Other] Cmt: 9 month follow upReason For Visit History RecordedPrimary Visit Diagnosis:Lymphocytosis [D72.820]Order(s):JAK2 V617F MUTATION [SQJAK2] Order #: [id number] FUTUREDisposition: Return in about 6 months (around [...] by ISAAC SHELTON DO on 02/07/17 Normal [facility] JAK2 V617F Mutationon 2016 JAK2 V617F Interp Result: JAK2 V617F M utation Not Detected Normal [facility] Comment on above: Result Comment: Inte rpretation: The JAK2 V617F Mutation was not detected. The V617F point mutation has been reported in a high percentage of cases of polycythemia vera, approximately half of the cases of essential thrombocythemia and chronic idiopathic myelofibrosis, and in a smaller proportion of other myeloid disorders.(NOTE)Methodology:Following DNA extraction and library construction utilizing 3KeyIt Cancer Hotspot Panel v.1 ([employer], [place]), DNA sequencing of gene mutation hotspot regions was performed onthe MiSeq instrument ([employer]umina, [place], [place]). Adility software([employer], [place], [place]) was used to analyze FASTQ files [...] was developed and its performance characteristicsdetermined by [facility] [place] ([facility]). It has not been cleared orapproved by the FDA. -[facility] is regulated under CLIA as qualified toperform high-complexity testing. This test is used for clinicalpurposes. It should not be regarded as investigational or forresearch.References:Gracy DA, Socrates Squires, Rene R, Roberto Carlos J, Borowitz MJ, Kesha Mccullough MM,et al. The 2016 revision to the World Health Organization (WHO)classification of myeloid neoplasms and acute leukemia. Msgii7710;127: 2391-405.Magdalene Squires, Jonah R, Adrian JW. Myeloproliferative neoplasms:contemporary diagnosis using histology and genetics. Funmi Rev ClinOncol 2009;6:627-37. Performed By: #### L D6, JAK2 ####[place] [id number] [place], [place] [phone] JAK2 V617F Spec Type Peripheral Blood Normal [facility] Comment on above: Performed By: #### L D6, JAK2 ####[address] [place] [place], [place] [phone] Molecular Path Rev Reviewed by David Vo M.D., Ph.D ([id number]) Normal [facility] Comment on above: Performed By: #### L D6, JAK2 ####[facility] [place], [place] [phone] LDon 02-06-2017 LD 186 U/L Normal 135-214 [facility] Comment on above: Performed By: #### L D6, JAK2 ####[facility] [address] [place], [place] [phone] PROGRESSon 02-06-2017 PROGRESS HNO ID: [id number] thor: Isaac Carrasco: (none)Author Type: PhysicianType: Progress NotesFiled: 02/07/2017 12:59 AMNote Text:PATIENT NAME: Gladis DamianjavierarMRN: [id number] PHYSICIAN: MICHAEL Rubin0 [place] [address]ABKIPNX CARE PHYSICIAN: MASOOD Rubin PHYSICIANS:CHIEF COMPLAINT: Lymphocytosis [...] three weeks now.Had few ER visits at [place] last year for LUQ pain and had [...] I answered all questions satisfactorily..Hai Shelton D.O.Medical OncologistSem[place], [place] Normal [facility] Remote Abs Gran + CBC (for [facility] use only)on 02-06-2017 Absol Gran Count 10.53 k/uL High 1.45-7.[address] [facility] Erythrocyte distribution width Auto Ratio (RBC) 13.8 % Normal 11.5-15.0 [facility] Erythrocytes (RBC) 4.88 10*6/uL Normal 3.90-5.20 [facility] Hematocrit (HCT) 40.8 % Normal 36.0-46.[address] [facility] Hemoglobin mass conc (Bld) 13.6 g/dL Normal 11.5-15.5 [facility] MCH 27.9 pG Normal 26.0-34.0 [facility] MCHC mass conc (RBC) 33.3 g/dL Normal 30.5-36.0 [facility] MCV 83.6 fL Normal 80.0-100.0 [facility] Platelet mean volume (PMV) 9.6 fL Normal 9.0-12.7 [facility] Platelets 448 10*3/uL High 150-400 [facility] WBC (Leukocytes) 14.69 10*3/uL High 3.70-11.00 [facility] LDon 01-23-2017 LD 169 U/L Normal 135-214 [facility] Comment on above: Performed By: #### L D6 ####[facility] [address] [place], [place] [phone] Remote Abs Gran + CBC (for [facility] use only)on 01-23-2017 Absol Gran Count 8.16 k/uL High 1.45-7.[address] [facility] Erythrocyte distribution width Auto Ratio (RBC) 13.7 % Normal 11.5-15.0 [facility] Erythrocytes (RBC) 5.16 10*6/uL Normal 3.90-5.20 [facility] Hematocrit (HCT) 43.4 % Normal 36.0-46.[address] [facility] Hemoglobin mass conc (Bld) 14.3 g/dL Normal 11.5-15.5 [facility] MCH 27.7 pG Normal 26.0-34.0 [facility] MCHC mass conc (RBC) 32.9 g/dL Normal 30.5-36.0 [facility] MCV 84.1 fL Normal 80.0-100.0 [facility] Platelet mean volume (PMV) 9.6 fL Normal 9.0-12.7 [facility] Platelets 481 10*3/uL High 150-400 [facility] WBC (Leukocytes) 12.17 10*3/uL High 3.70-11.00 [facility] CNCOon 11-28-2016 CNCO Letter TextNorth [address] [address]Xfnpd: [phone]: [facility] [place], [place] [address]Qgcnx: [phone]: [facility] [place], [place] [address]Lcbxw: [phone]: Toll Free: [phone] [email or web address] Nick WilliamsonD., Carlos Gleason M.D.Luiz Berrios M.D.Isaac Shelton D.O..Denisha Ruiz M.D.Heather Hollingsworth M.D. Julito Salguero M.D..November 28, 2016Gladis Sears [place] [address]Qcon Ms. Michael,You missed your scheduled appointment on 11/28/2016. Please call our officeto reschedule. If you need to cancel any future appointments, please call togive us 24 hour notice so that we can offer your appointment to anotherpatient.Sincerely,Tulio Au M.D. Normal [facility] Vital Signs Date Time Vital Sign Value Performing Clinician Facility 10-01-2024 22:00-0400 Heart rate 61 /min Kaylinn Dokken [facility] 10-01-2024 22:00-0400 SaO2% (BldA) [Mass fraction] 98 % Kaylinn Dokken [facility] 10-01-2024 21:30-0400 Heart rate 66 /min Kaylinn Dokken [facility] 10-01-2024 21:30-0400 Respiratory rate 22 /min Kaylinn Dokken [facility] 10-01-2024 21:30-0400 SaO2% (BldA) [Mass fraction] 97 % Kaylinn Dokken [facility] 10-01-2024 21:27-0400 Heart rate 60 /min Kaylinn Dokken [facility] 10-01-2024 21:27-0400 SaO2% (BldA) [Mass fraction] 96 % Kaylinn Dokken [facility] 10-01-2024 20:42-0400 Respiratory rate 22 /min Kaylinn Dokken [facility] 10-01-2024 20:42-0400 Diastolic blood pressure 92 mm[Hg] Kaylinn Dokken [facility] 10-01-2024 20:42-0400 Systolic blood pressure 158 mm[Hg] Kaylinn Dokken [facility] 10-01-2024 20:42-0400 Mean blood pressure 114 mm[Hg] Kaylinn Dokken [facility] 10-01-2024 19:58-0400 Body temperature 98.24 [degF] Kaylinn Dokken [facility] 10-01-2024 19:58-0400 Diastolic blood pressure 82 mm[Hg] Kaylinn Dokken [facility] 10-01-2024 19:58-0400 Heart rate 79 /min Kaylinn Dokken [facility] 10-01-2024 19:58-0400 Respiratory rate 18 /min Kaylinn Dokken [facility] 10-01-2024 19:58-0400 Systolic blood pressure 144 mm[Hg] Kaylinn Dokken [facility] 09-12-2024 13:28-0400 Body height 160.02 cm [facility] 09-12-2024 13:28-0400 Body mass index (BMI) [Ratio] 43.2 kg/m2 [facility] 09-12-2024 13:28-0400 Body temperature 97.6 [degF] [facility] 09-12-2024 13:28-0400 Body weight 110.78 kg [facility] 09-12-2024 13:28-0400 Diastolic blood pressure 79 mm[Hg] [facility] 09-12-2024 13:28-0400 Heart rate 80 /min [facility] 09-12-2024 13:28-0400 Respiratory rate 16 /min [facility] 09-12-2024 13:28-0400 SaO2% (BldA) [Mass fraction] 98 % [facility] 09-12-2024 13:28-0400 Systolic blood pressure 121 mm[Hg] [facility] 09-21-2023 10:14-0400 Body height 160.02 cm [facility] 09-21-2023 10:14-0400 Body mass index (BMI) [Ratio] 43.4 kg/m2 [facility] 09-21-2023 10:14-0400 Body temperature 98.4 [degF] [facility] 09-21-2023 10:14-0400 Body weight 111.13 kg [facility] 09-21-2023 10:14-0400 Diastolic blood pressure 88 mm[Hg] [facility] 09-21-2023 10:14-0400 Heart rate 72 /min [facility] 09-21-2023 10:14-0400 Respiratory rate 18 /min [facility] 09-21-2023 10:14-0400 SaO2% (BldA) [Mass fraction] 98 % [facility] 09-21-2023 10:14-0400 Systolic blood pressure 132 mm[Hg] [facility] 10-20-2021 21:00-0400 Body temperature 98.6 [degF] Mulugeta Antunez [facility] 10-20-2021 21:00-0400 Diastolic blood pressure 91 mm[Hg] Mulugeta Antunez [facility] 10-20-2021 21:00-0400 Heart rate 76 /min Mulugeta Antunez [facility] 10-20-2021 21:00-0400 Mean blood pressure 113 mm[Hg] Mulugeta Tulio [facility] 10-20-2021 21:00-0400 Respiratory rate 18 /min Mulugeta Tulio [facility] 10-20-2021 21:00-0400 SaO2% (BldA) [Mass fraction] 97 % Mulugeta Tulio [facility] 10-20-2021 21:00-0400 Systolic blood pressure 158 mm[Hg] Mulugeta Tulio [facility] 10-20-2021 20:00-0400 Body temperature 97.7 [degF] Mulugeta Tulio [facility] 10-20-2021 20:00-0400 Diastolic blood pressure 78 mm[Hg] Mulugeta Tulio [facility] 10-20-2021 20:00-0400 Heart rate 72 /min Mulugeta Tulio [facility] 10-20-2021 20:00-0400 Mean blood pressure 105 mm[Hg] Mulugeta Tulio [facility] 10-20-2021 19:00-0400 Diastolic blood pressure 102 mm[Hg] Mulugeta Tulio [facility] 10-20-2021 19:00-0400 Heart rate 70 /min Mulugeta Tulio [facility] 10-20-2021 19:00-0400 Mean blood pressure 124 mm[Hg] Mulugeta Tulio [facility] 10-20-2021 19:00-0400 Respiratory rate 17 /min Mulugeta Tulio [facility] 10-20-2021 19:00-0400 Systolic blood pressure 168 mm[Hg] Mulugeta Tulio [facility] 10-18-2021 12:00-0400 Heart rate 63 /min Kaylinn Dokken [facility] 10-18-2021 12:00-0400 Mean blood pressure 123 mm[Hg] Kaylinn Dokken [facility] 10-18-2021 12:00-0400 Systolic blood pressure 168 mm[Hg] Kaylinn Dokken [facility] 10-18-2021 11:30-0400 Diastolic blood pressure 100 mm[Hg] Kaylinn Dokken [facility] 10-18-2021 11:30-0400 Heart rate 69 /min Kaylinn Dokken [facility] 10-18-2021 11:30-0400 Mean blood pressure 121 mm[Hg] Kaylinn Dokken [facility] 10-18-2021 11:30-0400 Respiratory rate 16 /min Kaylinn Dokken [facility] 10-18-2021 11:30-0400 SaO2% (BldA) [Mass fraction] 99 % Kaylinn Dokken [facility] 10-18-2021 11:30-0400 Systolic blood pressure 163 mm[Hg] Kaylinn Dokken [facility] 10-18-2021 11:00-0400 Heart rate 68 /min Kaylinn Dokken [facility] 10-18-2021 11:00-0400 Mean blood pressure 120 mm[Hg] Kaylinn Dokken [facility] 05-12-2022 11:00-0400 SaO2% (BldA) [Mass fraction] 100 % Jeffy Das [facility] 10-18-2021 11:00-0400 Systolic blood pressure 160 mm[Hg] Stephn kken [facility] 10-18-2021 09:30-0400 Hourly Rounding Jeffy Lemusen [facility] 10-18-2021 09:30-0400 Promise to Return Jeffy Das [facility] 10-18-2021 08:30-0400 Hourly Rounding Jeffy Das [facility] 10-18-2021 08:30-0400 Promise to Return Jeffy Das [facility] 10-18-2021 03:59-0400 Body temperature 98.06 [degF] Jeffy Das [facility] 10-18-2021 03:59-0400 Heart rate 77 /min Jeffy Das [facility] Encounters Encounter Date Encounter Type Care Provider Facility Start: 10-06-2024 End: 10-06-2024 ambulatory YANY [facility] Start: 10-01-2024 End: 10-01-2024 Emergency department patient visit Jeffy Das [facility] Start: 09-12-2024 End: 09-12-2024 ambulatory [facility] Work Phone: Start: 09-12-2024 End: 09-12-2024 Patient encounter procedure [facility] Work Phone: Start: 04-08-2024 End: 04-08-2024 ambulatory GERALD MANCINI [facility] Start: 09-21-2023 End: 09-21-2023 ambulatory [facility] Work Phone: Start: 09-21-2023 End: 09-21-2023 Patient encounter procedure [facility] Work Phone: Start: 06-11-2023 End: 06-11-2023 ambulatory Belle Jose Other [facility] Other Start: 06-11-2023 Telephone encounter Belle Jose [facility] Start: 06-10-2023 End: 06-10-2023 ambulatory Belle Jose Other [facility] Other Start: 06-10-2023 Office outpatient vi sit 15 minutes Belle Jose [facility] Start: 09-22-2022 End: 09-23-2022 ambulatory TERRI [...] cardiovascular examination DR GUSTAVO FONTAINE . [facility] Start: 10-26-2021 End: 10-26-[address] GUSTAVO FONTAINE . Facility:[facility] Start: 10-24-2021 End: 10-25-[address] GUSTAVO FONTAINE . Facility:[facility] Start: 10-24-2021 End: 10-25-2021 Encounter for preprocedural cardiovascular examination DR GUSTAVO FONTAINE . Facility:[facility] Start: 10-20-2021 End: 10-20-2021 Emergency department patient visit Mulugeta Antunez [facility] Start: 10-18-2021 End: 10-18-2021 Emergency department patient visit Jeffy Das [facility] Start: 09-27-2021 End: 09-28-2021 ambulatory JOVITA WAITE Facility: Start: 03-20-2021 Gynecological examin ation normal Belle Jose Other [facility] Other Start: 08-09-2020 Adult health examination Renee Jose Other [facility] Other Start: 07-01-2018 End: 07-02-2018 Patient encounter procedure DEFAULT PHYSICIAN Facility:[facility] Start: 06-30-2018 End: 07-01-2018 Patient encounter procedure DEFAULT PHYSICIAN Facility:[facility] Start: 10-20-2017 End: 10-22-2017 Ambulatory ISAAC SHELTON [facility] Start: 10-09-2017 End: 10-10-2017 Ambulatory ISAAC SHELTON [facility] Start: 10-06-2017 End: 10-06-2017 Ambulatory ISAAC SHELTON [facility] Start: 09-25-2017 End: 10-01-2017 Ambulatory JESUS CHEATHAM [facility] Start: 06-05-2017 End: 06-10-2017 Ambulatory ISAAC SHELTON [facility] Start: 05-22-2017 End: 05-28-2017 Ambulatory JESUS CHEATHAM [facility] Start: 04-28-2017 End: 05-05-2017 Ambulatory ISAAC SHELTON [facility] Start: 04-10-2017 End: 04-16-2017 Ambulatory CANDIS HERNANDEZ [facility] Start: 04-07-2017 End: 04-11-2017 Ambulatory ISAAC SHELTON [facility] Start: 03-19-2017 End: 03-19-2017 Ambulatory ISAAC SHELTON [facility] Start: 03-14-2017 End: 03-14-2017 Ambulatory ISAAC SHELTON [facility] Start: 03-13-2017 End: 03-17-2017 Ambulatory ISAAC SHELTON [facility] Start: 02-06-2017 End: 02-07-2017 Ambulatory ISAAC SHELTON [facility] Start: 01-23-2017 End: 01-23-2017 Ambulatory ISAAC SHELTON [facility] Procedures Date Procedure Procedure Detail Performing Clinician section Jeffy cruz Cholecystectomy Jeffy redd Immunizations Immunization Date Immunization Notes Care Provider Bossman chew 03-13-2020 influenza virus vaccine, split virus (incl. purified surface antigen) Belle Jose Other [facility] Other 03-13-2020 influenza virus vaccine, unspecified formulation [facility] 03-16-2018 influenza virus vaccine, split virus (incl. purified surface antigen) Belle Jose Other [facility] Other 03-16-2018 influenza virus vaccine, unspecified formulation [facility] Payers Date Payer Category Payer Unknown [id number] Unknown [id number] 1975 Unknown [id number] [id number] 1975 Unknown [id number] 2..840.1.794601.3.579.2.647 1975 Unknown [id number] 2..840.1.854670.3.579.2.593 1975 Unknown [id number] 2.16.840.1.388235.3.579.2.593 1975 Unknown [id number] 2.16.840.1.152807.3.579.2.593 1975 Unknown [id number] 2.16.840.1.158198.3.579.2.593 1975 Unknown [id number] 2.16.840.1.825142.3.579.2.593 1975 Unknown [id number] 2.16.840.1.578759.3.579.2.593 1975 Unknown [id number] 2.16.840.1.859718.3.579.2.593 1975 Unknown [id number] 2.16.840.1.408804.3.579.2.593 1975 Unknown [id number] 2.16.840.1.866684.3.579.2.593 1975 Unknown [id number] 2.16.840.1.641308.3.579.2.593 1975 Unknown [id number] 2.16.840.1.241354.3.579.2.593 1975 Unknown [id number] 2.16.840.1.453009.3.579.2.593 1975 Unknown [id number] 2.16.840.1.804439.3.579.2.727 1975 Unknown [id number] 2.16.840.1.461362.3.579.2.727 1959 Private Health Insurance [id number] Self-pay [id number] 1959 Unknown [id number] 1959 Unknown [id number] Self-pay Self Pay [id number] Unknown MMO [id number] Unknown [place] KETURAH [id number] Social History Date Type Detail Facility Tobacco smoking status [facility] Sex Assigned At Female [facility] Start: 06-10-2023 Tobacco smoking stat [facility] Never smoked tobacco (finding) [facility] Start: 1975 Sex Assigned At Female [facility] Start: 09-12-2024 Tobacco smoking stat [facility] Ex-smoker (finding) [facility] Start: 08-28-2018 End: 09-12-2024 Sex Female (finding) [facility] Tobacco smoking status [facility] Functional Status Date Assessment Result Facility 10-01-2024 Functional Status N/A [facility] Clinical Notes 10-18-2021 to 10-06-2024 Note Date & Type Note Facility 10-06-2024 Note SUBJECTIVE Reason for Visit: Gladis Michael is a 49 y.o. year old female patient being seen for follow-up visit. HPI: Gladis Michael is a 49 y.o. year old female with significant medical history of uncontrolled hypertension, chest pain, and palpitations. Patient had recent ED visit on 10/01/2024 for chest pain. Her workup in the emergency department was unremarkable. Twelve-lead ECG shows sinus rhythm with no ST elevations no significant changes from prior EKGs. HS Troponins negative x 2. CXR no radiographic evidence of acute intrathoracic process, cardiomediastinal silhouette is within normal limits. Labs as follows: 10/01/2024 20:11 glucose 112, BUN 17, creatinine 0.6, EGFR 110, sodium 137, potassium 3.2, calcium 9.7, magnesium 2.0, TSH 1.6. 10/06/2024 office visit: Patient was seen and evaluated in the office today for atypical chest pain, which she reports began approximately one year ago. She describes intermittent episodes occurring both at rest and occasionally with exertion, with relief upon resting. She denies associated symptoms such as shortness of breath, lower extremity edema, orthopnea, lightheadedness, or dizziness. However, given the persistence of her symptoms, further ischemic evaluation is warranted. 04/08/2024 office visit (Dr. Mancini): She presents today for follow up. She reports some palpitations and atypical chest pain. Chest pain can occur both at rest and with exertion, and does not seem to be worsened with exertion. She denies any shortness of breath. No edema, orhtopnea, or PND Past Medical History: Diagnosis Date Hypertension Palpitations Past Surgical History: Procedure Laterality Date SECTION, CLASSIC CHOLECYSTECTOMY HYSTERECTOMY Patient Active Problem List Diagnosis Cervical adenopathy Essential hypertension Hypertensive disorder Hypertrophy tonsils Lymphocytosis Obesity, Class III, BMI 40-49.9 (morbid obesity) Obesity Pituitary cyst Pituitary mass Chronic pain Abnormal uterine bleeding Generalized anxiety disorder Ovarian cyst Pain in limb Pelvic and perineal pain Palpitations Nonrheumatic mitral valve regurgitation Diastolic dysfunction, left ventricle Sleep apnea Anosmia Loss of taste family history includes No Known Problems in her father and mother. Social History Tobacco Use Smoking status: Former Types: Cigarettes Smokeless tobacco: Never Substance Use Topics Alcohol use: Not Currently OBJECTIVE Visit Vitals Smoking Status Former Physical Exam Constitutional: General Appearance: well-developed, appears stated age. Level of Distress: no acute distress. Neck: Jugular Veins: normal jugular venous pressure. Lungs: Auscultation: no rales or rhonchi and normal breath sounds. Cardiovascular: Rate And Rhythm: regular Heart Sounds: normal S1 and s2; Systolic Murmur: not heard. Diastolic Murmur: not heard. Extremities: no edema Peripheral Pulses: Pulses: full and equal in all extremities except if noted. Abdomen: Inspection and Palpation: non distended or tender and soft. Musculoskeletal: Inspection: no joint tenderness or swelling. Neurologic: Gait: normal gait. Psychiatric: Mental Status: alert and normal affect. Skin: Inspection and Palpation: warm and dry. Allergies: Allergies Allergen Reactions Metoprolol Other heart races per patient Outpatient Medications: Current Outpatient Medications Medication Instructions ALPRAZolam (XANAX) 0.25 mg, oral, As needed chlorthalidone (HYGROTON) 25 mg, Every morning lisinopril 20 mg, oral, Every 12 hours pindolol (VISKEN) 10 mg, oral, 2 times daily RT potassium chloride CR (Klor-Con) 10 mEq ER tablet 5 mEq, oral, 3 times weekly sertraline (ZOLOFT) 50 mg, oral, Daily Recent Labs: No visits with results within 2 Month(s) from this visit. Latest known visit with results is: No results found for any previous visit. Recent labs reviewed 10/01/2024: Glucose 112, BUN 17, creatinine 0.6, EGFR 110, sodium 137, potassium 3.2, calcium 9.7, magnesium 2.0, TSH 1.6. I have personally reviewed and interpreted the following laboratory results: CBC, CMP, lipid profile, and any additional relevant lab work available at this time. These findings have been analyzed in the context of the patient's clinical presentation. Cardiovascular Diagnostic Studies: Stress test 08/05/2018: TTE 10/03/2023: 12 Lead ECG: No results found for this or any previous visit (from the past 4464 hour(s)). Twelve-lead EKG 10/01/2024: Cardiac event monitor 02/19/2023: I have personally reviewed and interpreted all available cardiac diagnostic tests and imaging reports. Findings have been analyzed in the context of the patient's clinical status. Assessment and Plan #CHEST PAIN The patient reports intermittent atypical chest pain that began approximately one year ago. She describes episodes occurring both at rest and occasionally (more content not included)... [facility] 10-02-2024 Hospital Discharge instructions Patient Education 10/01/2024 22:11:58 Palpitations, Mmiw-dt-Apqs Palpitations Palpitations are feelings that your heartbeat is not normal. Your heartbeat may feel like it is: Uneven (irregular). Faster than normal. Fluttering. Skipping a beat. This is usually not a serious problem. However, a doctor will do tests and check your medical history to make sure that you do not have a serious heart problem. Follow these instructions at home: Watch for any changes in your condition. Tell your doctor about any changes. Take these actions to help manage your symptoms: Eating and drinking Follow instructions from your doctor about things to eat and drink. You may be told to avoid these things: Drinks that have caffeine in them, such as coffee, tea, soft drinks, and energy drinks. Chocolate. Alcohol. Diet pills. Lifestyle Try to lower your stress. These things can help you relax: ?Yoga. ?Deep breathing and meditation. ?Guided imagery. This is using words and images to create positive thoughts. ?Exercise, including swimming, jogging, and walking. Tell your doctor if you have more abnormal heartbeats when you are active. If you have chest pain or feel short of breath with exercise, do not keep doing the exercise until you are seen by your doctor. ?Biofeedback. This is using your mind to control things in your body, such as your heartbeat. Get plenty of rest and sleep. Keep a regular bed time. Do not use drugs, such as cocaine or ecstasy. Do not use marijuana. Do not smoke or use any products that contain nicotine or tobacco. If you need help quitting, ask your doctor. General instructions Take rpol-mhl-obswjie and prescription medicines only as told by your doctor. Keep all follow-up visits. You may need more tests if palpitations do not go away or get worse. Contact a doctor if: You keep having fast or uneven heartbeats for a long time. Your symptoms happen more often. Get help right away if: You have chest pain. You feel short of breath. You have a very bad headache. You feel dizzy. You faint. These symptoms may be an emergency. Get help right away. Call your local emergency services (911 in the [place] Do not wait to see if the symptoms will go away. Do not drive yourself to the hospital. Summary Palpitations are feelings that your heartbeat is uneven or faster than normal. It may feel like your heart is fluttering or skipping a beat. Avoid food and drinks that may cause this condition. These include caffeine, chocolate, and alcohol. Try to lower your stress. Do not smoke or use drugs. Get help right away if you faint, feel dizzy, feel short of breath, have chest pain, or have a very bad headache. This information is not intended to replace advice given to you by your health care provider. Make sure you discuss any questions you have with your health care provider. Document Revised: 10/17/2021 Document Reviewed: 10/17/2021 [employer] Patient Education 2023 [employer]. 10/01/2024 22:11:58 Nonspecific Chest Pain, Adult, Evib-gt-Dwnw Nonspecific Chest Pain Chest pain can be caused by many different conditions. Some causes of chest pain can be life-threatening. These will require treatment right away. Serious causes of chest pain include: Heart attack. A tear in the body's main blood vessel. Redness and swelling (inflammation) around your heart. Blood clot in your lungs. Other causes of chest pain may not be so serious. These include: Heartburn. Anxiety or stress. Damage to bones or muscles in your chest. Lung infections. Chest pain can feel like: Pain or discomfort in your chest. Crushing, pressure, aching, or squeezing pain. Burning or tingling. Dull or sharp pain that is worse when you move, cough, or take a deep breath. Pain or discomfort that is also felt in your back, neck, jaw, shoulder, or arm, or pain that spreads to any of these areas. It is hard to know whether your pain is caused by something that is serious or something that is not so serious. So it is important to see your doctor right away if you have chest pain. Follow these instructions at home: Medicines Take foly-fgx-rvnsffj and prescription medicines only as told by your doctor. If you were prescribed an antibiotic medicine, take it as told by your doctor. Do not stop taking the antibiotic even if you start to feel better. Lifestyle Rest as told by your doctor. Do not use any products that contain nicotine or tobacco, such as cigarettes, e-cigarettes, and chewing tobacco. If you need help quitting, ask your doctor. Do not drink alcohol. Make lifestyle changes as told by your doctor. These may include: ?Getting regular exercise. Ask your doctor what activities are safe for you. ?Eating a heart-healthy diet. A diet and livestock nutrition territory manager (dietitian) can help you to learn healthy eating options. ?Staying at a healthy weight. ?Treating diabetes or high blood pressure, if needed. ?Lowering your stress. Activities such as yoga and relaxation techniques can help. General instructions Pay attention to any changes in your symptoms. Tell your doctor about them or any new symptoms. Avoid any activities that cause chest pain. Keep all follow-up visits as told by your doctor. This is important. You may need more testing if your chest pain does not go away. Contact a doctor if: Your chest pain does not go away. You feel depressed. You have a fever. Get help right away if: Your chest pain is worse. You have a cough that gets worse, or you cough up blood. You have very bad (severe) pain in your belly (abdomen). You pass out (faint). You have either of these for no clear reason: ?Sudden chest discomfort. ?Sudden discomfort in your arms, back, neck, or jaw. You have shortness of breath at any time. You suddenly start to sweat, or your skin gets clammy. You feel sick to your stomach (nauseous). You throw up (vomit). You suddenly feel lightheaded or dizzy. You feel very weak or tired. Your heart starts to beat fast, or it feels like it is skipping beats. These symptoms may be an emergency. Do not wait to see if the symptoms will go away. Get medical help right away. Call your local emergency services (911 in the [place] Do not drive yourself to the hospital. Summary Chest pain can be caused by many different conditions. The cause may be serious and need treatment right away. If you have chest pain, see your doctor right away. Follow your doctor's instructions for taking medicines and making lifestyle changes. Keep all follow-up visits as told by your doctor. This includes visits for any further testing if your chest pain does not go away. Be sure to know the signs that show that your condition has become worse. Get help right away if you have these symptoms. This information is not intended to replace advice given to you by your health care provider. Make sure you discuss any questions you have with your health care provider. Document Revised: 04/10/2023 Document Reviewed: 04/10/2023 [employer] Patient Education 2023 [employer]. 10/01/2024 22:11:58 Hypokalemia Hypokalemia Hypokalemia means that the amount of potassium in the blood is lower than normal. Potassium is a mineral (electrolyte) that helps regulate the amount of fluid in the body. It also stimulates muscle tightening (contraction) and helps nerves work properly. Normally, most of the body's potassium is inside cells, and only a very small amount is in the blood. Because the amount in the blood is so small, minor changes to potassium levels in the blood can be life-threatening. What are the causes? This condition may be caused by: Antibiotic medicine. Diarrhea or vomiting. Taking too much of a medicine that helps you have a bowel movement (laxative) can cause diarrhea and lead to hypokalemia. Chronic kidney disease (CKD). Medicines that help the body get rid of excess fluid (diuretics). Eating disorders, such as anorexia or bulimia. Low magnesium levels in the body. Sweating a lot. What are the signs or symptoms? Symptoms of this condition include: Weakness. Constipation. Fatigue. Muscle cramps. Mental confusion. Skipped heartbeats or irregular heartbeat (palpitations). Tingling or numbness. How is this diagnosed? This condition is diagnosed with a blood test. How is this treated? This condition may be treated by: Taking potassium supplements. Adjusting the medicines that you take. Eating more foods that contain a lot of potassium. If your potassium level is very low, you may need to get potassium through an IV and be monitored in the hospital. Follow these instructions at home: Eating and drinking Eat a healthy diet. A healthy diet includes fresh fruits and vegetables, whole grains, healthy fats, and lean proteins. If told, eat more foods that contain a lot of potassium. These include: ?Nuts, such as peanuts and pistachios. ?Seeds, such as sunflower seeds and pumpkin seeds. ?Peas, lentils, and lin beans. ?Whole grain and bran cereals and breads. ?Fresh fruits and vegetables, such as apricots, avocado, bananas, cantaloupe, kiwi, oranges, tomatoes, asparagus, and potatoes. ?Juices, such as orange, tomato, and prune. ?Lean meats, including fish. ?Milk and milk products, such as yogurt. General instructions Take ifdi-ggi-zmkswwt and prescription medicines only as told by your health care provider. This includes vitamins, natural food products, and supplements. Keep all follow-up visits. This is important. Contact a health care provider if: You have weakness that gets worse. You feel your heart pounding or racing. You vomit. You have diarrhea. You have diabetes and you have trouble keeping your blood sugar in your target range. Get help right away if: You have chest pain. You have shortness of breath. You have vomiting or diarrhea that lasts for more than 2 days. You faint. These symptoms may be an emergency. Get help right away. Call 911. Do not wait to see if the symptoms will go away. Do not drive yourself to the hospital. Summary Hypokalemia means that the amount of potassium in the blood is lower than normal. This condition is diagnosed with a blood test. Hypokalemia may be treated by taking potassium supplements, adjusting the medicines that you take, or eating more foods that are high in potassium. If your potassium level is very low, you may need to get potassium through an IV and be monitored in the hospital. This information is not intended to replace advice given to you by your health care provider. Make sure you discuss any questions you have with your health care provider. Document Revised: 02/07/2022 Document Reviewed: 02/07/2022 [employer] Patient Education 2023 [employer]. Follow Up Care 10/01/2024 19:56:21 With:JOIVTA WAITE Address: [address] [address]- [phone] Business (1) When:10/04/2024 21:58:16 Comments:Please follow-up with your primary care doctor for further evaluation management. Return to the ED for any new or worsening symptoms or if you have any concerns. [facility] 10-01-2024 Note ED Patient Education Note Emergency Medicine Palpitations Palpitations are feelings that your heartbeat is not normal. Your heartbeat may feel like it is: ??? Uneven (irregular). ??? Faster than normal. ??? Fluttering. ??? Skipping a beat. This is usually not a serious problem. However, a doctor will do tests and check your medical history to make sure that you do not have a serious heart problem. Follow these instructions at home: Watch for any changes in your condition. Tell your doctor about any changes. Take these actions to help manage your symptoms: Eating and drinking Follow instructions from your doctor about things to eat and drink. You may be told to avoid these things: ??? Drinks that have caffeine in them, such as coffee, tea, soft drinks, and energy drinks. ??? Chocolate. ??? Alcohol. ??? Diet pills. Lifestyle ??? Try to lower your stress. These things can help you relax: ? Yoga. ? Deep breathing and meditation. ? Guided imagery. This is using words and images to create positive thoughts. ? Exercise, including swimming, jogging, and walking. Tell your doctor if you have more abnormal heartbeats when you are active. If you have chest pain or feel short of breath with exercise, do not keep doing the exercise until you are seen by your doctor. ? Biofeedback. This is using your mind to control things in your body, such as your heartbeat. ??? Get plenty of rest and sleep. Keep a regular bed time. ??? Do not use drugs, such as cocaine or ecstasy. Do not use marijuana. ??? Do not smoke or use any products that contain nicotine or tobacco. If you need help quitting, ask your doctor. General instructions ??? Take huyo-ozc-bsrfygc and prescription medicines only as told by your doctor. ??? Keep all follow-up visits. You may need more tests if palpitations do not go away or get worse. Contact a doctor if: ??? You keep having fast or uneven heartbeats for a long time. ??? Your symptoms happen more often. Get help right away if: ??? You have chest pain. ??? You feel short of breath. ??? You have a very bad headache. ??? You feel dizzy. ??? You faint. These symptoms may be an emergency. Get help right away. Call your local emergency services (911 in the [place] ??? Do not wait to see if the symptoms will go away. ??? Do not drive yourself to the hospital. Summary ??? Palpitations are feelings that your heartbeat is uneven or faster than normal. It may feel like your heart is fluttering or skipping a beat. ??? Avoid food and drinks that may cause this condition. These include caffeine, chocolate, and alcohol. ??? Try to lower your stress. Do not smoke or use drugs. ??? Get help right away if you faint, feel dizzy, feel short of breath, have chest pain, or have a very bad headache. This information is not intended to replace advice given to you by your health care provider. Make sure you discuss any questions you have with your health care provider. Document Revised: 10/17/2021 Document Reviewed: 10/17/2021 Elsevier Patient Education ? 2023 [employer] Inc. Gastroenterology Nonspecific Chest Pain Chest pain can be caused by many different conditions. Some causes of chest pain can be life-threatening. These will require treatment right away. Serious causes of chest pain include: ??? Heart attack. ??? A tear in the body's main blood vessel. ??? Redness and swelling (inflammation) around your heart. ??? Blood clot in your lungs. Other causes of chest pain may not be so serious. These include: ??? Heartburn. ??? Anxiety or stress. ??? Damage to bones or muscles in your chest. ??? Lung infections. Chest pain can feel like: ??? Pain or discomfort in your chest. ??? Crushing, pressure, aching, or squeezing pain. ??? Burning or tingling. ??? Dull or sharp pain that is worse when you move, cough, or take a deep breath. ??? Pain or discomfort that is also felt in your back, neck, jaw, shoulder, or arm, or pain that spreads to any of these areas. It is hard to know whether your pain is caused by something that is serious or something that is not so serious. So it is important to see your doctor right away if you have chest pain. Follow these instructions at home: Medicines ??? Take umti-wvq-gnzmlmo and prescription medicines only as told by your doctor. ??? If you were prescribed an antibiotic medicine, take it as told by your doctor. Do not stop taking the antibiotic even if you start to feel better. Lifestyle ??? Rest as told by your doctor. ??? Do not use any products that contain nicotine or tobacco, such as cigarettes, e-cigarettes, and chewing tobacco. If you need help quitting, ask your doctor. ??? Do not drink alcohol. ??? Make lifestyle changes as told by your doctor. These may include: ? Getting regular exercise. Ask your doctor what activities are saf (more content not included)... [facility] 10-01-2024 Evaluation + Plan note Extrac pedro from: Title:ED Note Author:Jeffy Das DO Date :10/01/24 Chest pain (R07.9: Chest tanika n, unspecified) Hypokalemia (E87.6: Hypokalemia) Palpitations (R00.2: Palpitations) Orders: ketorolac, 30 mg = 1 mL, Injection, IV Push, Once, Stop date 10/01/24 20:18:00 EDT, STAT, Start date 10/01/24 20:18:00 EDT, 10/01/24 20:18:00 EDT potassium chloride, 40 mEq = 2 tab(s), Tab-ER, Oral, Once, Stop date 10/01/24 20:45:00 EDT, STAT, Start date 10/01/24 20:45:00 EDT, 10/01/24 20:45:00 EDT Basic Metabolic Panel CBC w/ Auto Diff ECG 12 Lead Adult ED Cardiac Monitoring eGFR Extra SST Tube Magnesium Level Oxygen Saturation Oxygen Therapy PT & PTT Saline Lock Insert Troponin 0 Hr. Troponin 1 Hr. TSH With T4fr Reflex XR Chest Single View [facility] 10-31-2024 NoteEvent [facility] Cardiology Progress Note HPI: Gladis Michael is a 48 y.o. year old with past medical history of uncontrolled hypertension, palpitations. She presents today for follow up. She reports some palpitations and atypical chest pain. Chest pain can occur both at rest and with exertion, and does not seem to be worsened with exertion. She denies any shortness of breath. No edema, orhtopnea, or PND ---- 07/09/2021 per phil SWANSON 46 yo [...] Connections: Not on file Intimate Partner Violence: Unknown (07/31/2023) OR Safety & Environment Fear of Current or Ex-Partner: Not on file Emotionally Abused: Not on file Physically Abused: Not on file Sexually Abused: Not on file Physically or Sexually Abused: Not on file Depression: Not on file Housing Stability: Not on file Utilities: Not on file Allergies: Allergies Allergen Reactions Metoprolol Other heart races per patient Weight: No weight available Visit Vitals Smoking Status Former Meds: Current Outpatient Medications on File Prior to Visit Medication Sig Dispense Refill chlorthalidone (Hygroton) 25 mg tablet TAKE 1 TABLET BY MOUTH EVERY DAY IN THE MORNING 90 tablet 3 pindolol (Visken) 5 mg tablet Take 10 mg by mouth in the morning and at bedtime. sertraline (Zoloft) 50 mg tablet Take 50 mg by mouth in the morning. No current facility-administered medications on file prior to visit. ROS: Review of Systems Cardiovascular: Positive for dyspnea on exertion. Neurological: Positive for dizziness and light-headedness. All other systems reviewed and are negative. Physical Exam: Constitutional General Appearance: well-nourished, well-developed, [...] Carotid Arteries: bilateral normal upstroke, no bruits Jugular Veins: normal jugular venous pressure Thyroid: not enlarged Lungs Respiratory Effort: unlabored Chest Exam: normal curvature, no thoracic deformity Auscultation: clear, no wheezing, no rales, no rhonchi Cardiovascular Rate And Rhythm: regular Heart Sounds: normal S1, normal s2, no gallop Systolic Murmur: not heard Diastolic Murmur: not heard Extremities: no cyanosis, no edema, no peripheral signs of emboli Peripheral Pulses Radial Pulse: normal Abdomen Inspection and Palpation: soft, non distended, no bruit, non tender Musculoskeletal Inspection: no joint swelling Neurologic Gait: normal gait Skin Inspection and Palpation: warm and dry Nails: no clubbing Labs: 09/22/2022 labs reviewed, no concerns EKG: No results found for this or any previous visit (from the past 4464 hour(s)). Echo: 2020 TTE Stress test: 2019 Assessment and Plan: Essential hypertension - Blood pressure much better controlled -She states Bp is well controlled a (more content not included)...[facility]01-[facility] Evaluation note* Encounter Date Diagnosis Assessment Notes Treatment Notes Treatment Clinical Notes Jun, Acute COVID-19 (ICD-10 - U07.1) Discussed quarantine protocol and time needed off work. Jun, Chronic sinusitis, unspecified (ICD-10 - J32.9) Take antibiotic as directed. If develop wheezing, chest tightness, itching, bad cough, blue skin color, seizures, swelling of face, lips, tongue, or throat report to ED. Jun, Other specified bacterial agents as the cause of diseases classified elsewhere (ICD-10 - B96.89) [employer] Other 05-20-2022 NoteThe [place], [place] NAME: GLADIS MICHAEL DATE OF : MEDICAL REC#: [id number] POT FIREMAN: [address] [facility], TRANSADMIT DATE: 10/26/2021 09:00:00 TUTORING CLINICIAN DATE: 10/28/2021 02:00 DICTATING PHYSICIAN: GUSTAVO FONTAINE DICTATION DATE: 10/26/2021 12:00 OP Note OPERATION DATE: 10/26/2021 PROCEDURE: Diagnostic laparoscopy with removal of bilateral tubal remnants. PREOPERATIVE DIAGNOSIS: Pelvic pain. POSTOPERATIVE DIAGNOSIS: Pelvic pain including hydrosalpinx of partial tubal remnant bilaterally, slightly erythematous tubal remnant. Otherwise normal appearing uterus and ovaries. SURGEON: Gustavo Fontaine M.D. SUPERVISOR PATCHING: VALERIE Coombs URINE OUTPUT: Yellow and clear. [...] Fontaine DO on 11/09/2021 08:27 AM EDT IF Signed and Approved by: DR GUSTAVO FONTAINE . 11/09/2021 08:27:00[id number] NoteOP Note OPERATION DATE: 10/26/2021 ADDENDUM: Please note that the patient had partial tubal remnants with hydrosalpinx that were removed using the LigaSure. Please note that these were transected and ligated and excellent hemostasis was performed. IF Signed and Approved by: DR GUSTAVO FONTAINE . 12/02/2021 10:37:00[facility] [id number] NoteOP Note OPERATION DATE: 10/26/2021 ADDENDUM: Please note that the patient had partial tubal remnants with hydrosalpinx that were removed using the LigaSure. Please note that these were transected and ligated and excellent hemostasis was performed.[id number] Hospital Discharge instructions Patient Education 10/20/2021 21:20:19 [...] cyst. Follow these instructions at home: Take cbqt-jip-rypwkaa and prescription medicines only as told by [...] 05/26/2006 Document Revised: 08/24/2018 Document Reviewed: 10/27/2016 [employer] Patient Education 2020 [employer]. Follow Up Care 10/20/2021 18:19:10 With:Gustavo FONTAINE Address: [address] , [place] [address]- Business (1) When:10/23/2021 21:06:35 [facility]05-14-2022 Evaluation + Plan noteExtracted from: Title:ED Note Author:Hunter Conte DO Date :10/20/21 Hydrosalpinx (N70.11: Chroni c salpingitis) Left ovarian cyst (N83.202: Unspecified ovarian cyst, left side) Orders: ketorolac, 10 mg = 1 tab(s), Oral, q6hr, PRN for pain, X 5 day(s), # 20 tab(s), Refills(s) 0, Pharmacy: [facility]/pharmacy #[id number], 160, cm, 10/20/21 18:21:00 EDT, Height/Length [...] 10/20/21 19:00:[address] Abdomen/Pelvis w/ Contrast [facility]05-12-2022 Hospital Discharge instructions Patient Education 10/18/2021 [...] Follow these instructions at home: Medicines Take jdzn-jkk-wsjswvy and prescription medicines only as told by [...] Watch your condition for any changes. Take avcb-bgg-zzbhubo and prescription medicines only as told by [...] 03/05/2006 Document Revised: 10/04/2019 Document Reviewed: 10/04/2019 [employer] Patient Education 2020 [employer]. Follow Up Care 10/18/2021 03:57:58 With:Gustavo FONTAINE Address: [address] [place] [address]- Business (1) When:10/21/2021 12:14:15 With:JOVTIA WAITE Address: [address] [place] [address]- [phone] Business (1) When:10/21/2021 12:13:23 Comments:The ultrasound showed that you have fluid in your fallopian tube. Make sure to follow-up with Dr. Fontaine as instructed. Return to the emergency room if your pain gets worse, fever, vomiting or any newsymptoms. [facility]05-12-2022 Evaluation + Plan noteExtracted from: Title:ED [...] With Cult Reflex US Pelvis Non-OB Complete [facility] noteNo InformationNortVelomedix Other Evaluation noteNo assessment information available [facility] Work Phone: Evaluation note* Diagnosis Onset Date Resolution Status Admit Date Left otitis media acute September 122024 1:28pm [facility] Work Phone: History general Narrative [...] procedures, hx of, Problem Comment : Ablasion-2014 [id number] Cholecystectomy-2005 , Problem Status : Active, Hospitalization History see above [facility] Other History general Narrative - Reported* Type [...] procedures, hx of, Problem Comment : Ablasion-2014 [id number] Cholecystectomy-2006 , Problem Status : Active, Hospitalization History see above [facility] Other Hospital course Narrative No data available for this section [facility] No data available for this section [facility] Summary Purpose Family History No Family History Records Found Relationship Condition Age at Onset Recorded Date/T reg father Malignant neoplasm Unknown Unknown Advance Directives No Advanced Directives Records Found Advance Directive Response Recorded Date/ Time Advance Directives No September 20 9:43am Chief Complaint and Reason for Visit Chief Complaint red bumps on back Chief Complaint Admit Date Headache, congestion, earache September 12, 2024 1:28pm Reason for Visit Admit Date Left otitis media September 12, 2024 1:28 pm Additional Source Comments INFORMATION SOURCE (unrecogn ized section and content) DATE CREATED AUTHOR 11/26/2017 [facility] DATE CREATED AUTHOR AUTHOR'S ORGANIZ ATION 07/10/2018 [facility] DATE CREATED AUTHOR AUTHOR'S ORGANIZ ATION 09/25/2022 [facility] DATE CREATED AUTHOR AUTHOR'S ORGANIZ ATION 10/03/2024 [facility] DATE CREATED AUTHOR AUTHOR'S ORGANIZ ATION 10/11/2024 [facility] REASON FOR VISIT (unrecogniz ed section and content) COVID +school noteCOVID + Care Teams (unrecognized sec tion and content) Team Status: Active Member Role Status Dates Joseph Harris DO Primary Care Provider Active Team Status: Inactive Member Role Status Dates Joseph Harris DO Primary Care Provider Active Start: September 21, 2023 End: September 21, 2023 TIO Myers Attending Provider Active S tart: September 21, 2023 End: September 21, 2023 Team Status: Active Member Role Status Dates TIO Ray Primary Care Provider Active Team Status: Inactive Member Role Status Dates Monika Reyna APRN Attending Provider Active S tart: September 12, 2024 End: September 12, 2024 TIO Ray Primary Care Provider Active Start: September 12, 2024 End: Donna 6th, 2025 Goals (unrecognized section and content) Goals may [...] BE BASED ON THE PRIMARY CLINICAL RECORDS. [facility]. provides no warranty or guarantee of the accuracy or completeness of information in this document.
[2024-10-18] MEDS: REGADENOSON 0.4 MG/5 ML SYRINGE IV (11:42)
--- NOTE | 2024-10-18 15:09 | PM.STRESS ---
Stress Test Stress Test Allergies Allergy/AdvReac Type Severity Reaction Status Date / Time metoprolol (From Toprol XL) Allergy Intermediate tachycardia Verified 05/03/24 13:46 Requesting physician: Gonzalez Ch Procedure: This was a Lexiscan stress test with myocardial perfusion imaging performed at the [facility] on 10/18/2024. Intravenous line was secured. The patient was attached to electrocardiographic monitoring. Baseline vital signs and ECG were obtained. Lexiscan 0.4 mg was administered intravenously followed by administration of Cardiolite. The patient then went on to obtain myocardial perfusion imaging. Resting heart rate was 68 bpm and peak heart rate was 102 bpm. Resting blood pressure was 130/78 and peak blood pressure was 136/74. General Information: Reason for Stress Test: Chest pain. Cardiac History and Risk Factors: Hypertension. Resting 12 - Lead Electrocardiogram: Normal sinus rhythm, normal ECG. Stress Test: Protocol: Lexiscan stress test. Exercise Capacity: Not assessed. Blood Pressure Response: Resting elevated blood pressure. Rhythm: Sinus rhythm with PVCs. ST - Response: No ischemic ECG changes seen following infusion of Lexiscan. Patient Response: Chest heaviness but no chest pain. No shortness of breath. Interpretation: 1. No evidence of ischemic ECG changes seen following infusion of Lexiscan. 2. Myocardial perfusion images will be reported separately.
== END 2024-10-18 08:47 | disposition home or self-care (01) ==
LOC: CARD 08:48
PROVIDERS: PCP Nurse Practitioner Family
DX: R07.89 Other chest pain (principal)
CPT/HCPCS: 78452; 93017; A9500; J2785

== ENCOUNTER 2024-10-20 08:45 | Outpatient (OUT) | payer BC, SELFPAY ==
--- OUTSIDE RECORDS SUMMARY | 2024-10-20 08:58 | XMS_ITS | CCD ---
Author Organization [facility] Care Team Providers Care Community Relations Advisor Name Role Phone ADAMOWICZ, ISAAC J Unavailable Unavailable ADAMOWICZ, ISAAC J Unavailable Unavailable ADAMOWICZ, ISAAC J Unavailable Unavailable ADAMOWICZ, ISAAC J Unavailable Unavailable ADAMOWICZ, ISAAC J Unavailable Unavailable ADAMOWICZ, ISAAC J Unavailable Unavailable ADAMOWICZ, ISAAC J Unavailable Unavailable ADAMOWICZ, ISAAC J Unavailable Unavailable ADAMOWICZ, ISAAC J Unavailable Unavailable ADAMOWICZ, ISAAC J Unavailable Unavailable CANDIS HERNANDEZ Unavailable Unavailable SHANAE LUNA (PROCESSING REP) Unavailable Unavailabl e ADAMOWICZ, ISAAC J Unavailable Unavailable ADAMOWICZ, ISAAC J Unavailable Unavailable ADAMOWICZ, ISAAC J Unavailable Unavailable JESUS CHEATHAM Unavailable Unavailab le ADAMOWICZ, ISAAC J Unavailable Unavailable SHANAE LUNA (PROCESSING REP) Unavailable Unavailabl e SHANAE LUNA (PROCESSING REP) Unavailable Unavailabl e ADAMOWICZ, ISAAC J Unavailable Unavailable ADAMOWICZ, ISAAC J Unavailable Unavailable JESUS CHEATHAM Unavailable Unavailab JOSEPH Arceo Unavailable Unavailab le ADAMOWICZ, ISAAC J Unavailable Unavailable ADAMOWICZ, ISAAC J Unavailable Unavailable ADAMOWICZ, ISAAC J Unavailable Unavailable SHANAE LUNA (PROCESSING REP) Unavailable Unavailabl e ADAMOWICZ, ISAAC J Unavailable Unavailable ADAMOWICZ, ISAAC J Unavailable Unavailable PHYSICIAN, DEFAULT Admitting Unavailable PHYSICIAN, DEFAULT Attending Unavailable PHYSICIAN, DEFAULT Admitting Unavailable PHYSICIAN, DEFAULT Attending Unavailable JOVITA WAITE Primary Care Physician [phone] SHERMAN Hernandze, DR JUÁREZ Consulting Unavailable JOVITA WAITE Primary [...] MARIANN, JOVITA Primary Care Unavailable JAKE ., ESYMOUR Consulting Unavailable SHERMAN ., DR JUÁREZ Consulting [...] [METOPROLOL] Drug Allergy 6 AOF, heart racing [facility] Repository (2 sources) Pyridoxal Drug Allergy 3 [facility] Repository (3 sources) patient allergy list reviewed by nurse or physicia Propensity to adverse reactions 09-18-201 7 Comment:Done [place] Other (3 sources) Allergies Reconciled Propensity to adverse reactions Unknown [facility] Other (2 sources) Ciprofloxacin; Translations: [ciprofloxacin] Drug Allergy Unknown (qualifier value) [facility] Jerzy (1 source) Metoprolol; Translations: [Toprol-XL] Drug Allergy [facility] Repository Medications Current Medications Medication Drug [...] BID, # 20 tab(s), Refills(s) 0, Pharmacy: [facility]/pharmacy #[id number], 160, cm, 10/18/21 4:04:00 [...] day(s), # 20 tab(s), Refills(s) 0, Pharmacy: [facility]/pharmacy #[id number], 160, cm, 10/20/21 18:21:00 [...] bedtime, # 30 tab(s), Refills(s) 0, Pharmacy: [facility]/pharmacy #[id number] Start Date: 11/10/17 Status: [...] times daily for 0 *Pick strength-form from [facility] for eRX* Nov, Active Start: 05-22-2017 take 2 tablets by mo [facility] twice daily pindolol 5 mg oral tablet [...] Refill. 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; Translations: [[facility] CURRENT DRUG THERAPY] Onset: 09-24-2022 Episodic Other [...] Range Facility Office Visiton 10-06-2024 Follow-up visit [id number] Nettie Michael 1975 F Date Provider Department Center 10/06/2024 [id number] STYLES [facility] Family History Problem Relation Age of Onset No Known Problems Mother Cancer Father Cancer Brother Family Status - Relation Status Age at Mother Alive Father Sister Alive Brother Level of Service:36393 UT OFFICE/OUTPATIENT ESTABLISHED LOW MDM 20 MIN Normal [facility] XR Chest Single Viewon 10-02 XR [...] DO Transcribed by: RAMANDEEP Technologist: KINA Malin [facility] BMPon 10-01-2024 Anion gap [Moles/Vol] 11 mmol/L Normal 6-16 [facility] Comment on above: Performed By: #### 2 [id number] #### [facility] [address] [place] [place] [address] Calcium [Mass/Vol] 9.7 mg/dL Normal 8.9-11.1 [facility] Comment on above: Performed By: #### 2 [id number] #### [facility] [address] [place] [place] [address] Chloride [Moles/Vol] 101 mmol/L Normal 101-111 [facility] Comment on above: Performed By: #### 2 [id number] #### [facility] [address] [place] [place] [address] CO2 [Moles/Vol] 28 mmol/L Normal 21-31 [facility] Comment on above: Performed By: #### 2 [id number] #### [facility] [address] [place] [address] Creatinine [Mass/Vol] 0.6 mg/dL Normal 0.5-1.3 [facility] Comment on above: Performed By: #### 2 [id number] #### [facility] [address] [place] [address] Glucose [Mass/Vol] 112 mg/dL Normal 55-199 [facility] Comment on above: Performed By: #### 2 [id number] #### [facility] [address] [place] [address] Potassium [Moles/Vol] 3.2 mmol/L Low 3.5-5.3 [facility] Comment on above: Performed By: #### 2 [id number] #### [facility] [address] [place] [address] Sodium [Moles/Vol] 137 mmol/L Normal 135-145 [facility] Comment on above: Performed By: #### 2 321072 #### [facility] [address] [place] [address] Urea nitrogen [Mass/Vol] 17 mg/dL Normal 5-21 [facility] Comment on above: Performed By: #### 2 [id number] #### [facility] [address] [place] [address] Urea nitrogen/Creatinine [Mass ratio] 28 No Units High 10-20 [facility] Comment on above: Performed By: #### 2 [id number] #### [facility] [address] [place] [address] CBC w/ Auto Diffon 10-01- 5 Basophils/100 WBC (Bld) 1.4 % Normal 0.0-2.0 [facility] Comment on above: Performed By: #### 2 [id number] #### [facility] [address] [place] [address] Basophils/Leukocytes Auto (Bld) [Pure # fraction] 0.2 E9/L Normal 0.0-0.2 [facility] Comment on above: Performed By: #### 2 583779 #### [facility] [address] [place] [address] Eosinophils (Bld) [#/Vol] 0.2 E9/L Normal 0.0-0.5 [facility] Comment on above: Performed By: #### 2 149304 #### [facility] [address] [place] [address] Eosinophils/100 WBC (Bld) 1.6 % Normal 0.0-8.0 [facility] Comment on above: Performed By: #### 2 189464 #### [facility] [address] [place] [address] Erythrocyte distribution width (RBC) [Ratio] 13.4 % Normal 10.9-14.2 [facility] Comment on above: Performed By: #### 2 [id number] #### [facility] [address] [place] [address] Hematocrit (Bld) [Volume fraction] 38.1 % Normal 34.0-46.0 [facility] Comment on above: Performed By: #### 2 315365 #### [facility] [address] [place] [address] Hemoglobin (Bld) [Mass/Vol] 13.2 g/dL Normal 12.0-16.0 [facility] Comment on above: Performed By: #### 2 985968 #### [facility] [address] [place] [address] Lymphocytes (Bld) [#/Vol] 3.9 E9/L Normal 1.0-4.0 [facility] Comment on above: Performed By: #### 2 010209 #### [facility] [address] [place] [address] Lymphocytes/100 WBC (Bld) 30.4 % Normal 14.0-50.0 [facility] Comment on above: Performed By: #### 2 715630 #### [facility] [address] [place] [address] MCH (RBC) [Entitic mass] 28.1 pg Normal 27.0-34.0 [facility] Comment on above: Performed By: #### 2 317683 #### [facility] [address] [place] [address] MCHC (RBC) [Mass/Vol] 34.5 g/dL Normal 31.4-36.0 [facility] Comment on above: Performed By: #### 2 741851 #### [facility] [address] [place] [address] MCV (RBC) [Entitic vol] 81.5 fL Normal 80.0-100.0 [facility] Comment on above: Performed By: #### 2 053662 #### [facility] [address] [place] [address] Monocytes (Bld) [#/Vol] 0.7 E9/L Normal 0.2-1.0 [facility] Comment on above: Performed By: #### 2 [id number] #### [facility] [address] [place] [address] Neutrophils (Bld) [#/Vol] 7.9 E9/L High 2.0-7.5 [facility] Comment on above: Performed By: #### 2 204722 #### [facility] [address] [place] [address] Neutrophils/100 WBC (Bld) 60.9 % Normal 36.0-75.0 [facility] Comment on above: Performed By: #### 2 102228 #### [facility] [address] [place] [address] Platelet mean volume (Bld) [Entitic vol] 8.4 fL Normal 6.4-10.8 [facility] Comment on above: Performed By: #### 2 118830 #### [facility] [address] [place] [address] Platelets (Bld) [#/Vol] 443.0 E9/L Normal 150.0-500.0 [facility] Comment on above: Performed By: #### 2 [id number] #### [facility] [address] [place] [address] RBC (Bld) [#/Vol] 4.7 E12/L Normal 4.3-5.9 [facility] Comment on above: Performed By: #### 2 156343 #### [facility] [address] [place] [address] WBC corrected for nucl RBC Auto (Bld) [#/Vol] 13.0 E9/L High 4.0-11.0 [facility] Comment on above: Performed By: #### 2 996418 #### [facility] [address] [place] [address] CHEMISTRYOrdered By: SYSTEM SYSTEM on 10-01-2024 Troponin [...] High Sensitivity Troponin I Instructions For Use, [employer], January 2018) Anion gap [Moles/Vol] 11 mmol/L [...] High Sensitivity Troponin I Instructions For Use, [employer], January 2018) TSH Qn 1.60 m[IU]/L Normal 0.34 - 5.60 mcIU/mL [facility] Urea nitrogen [Mass/Vol] 17 mg/dL Normal 5 - 21 mg/dL [facility] Urea nitrogen/Creatinine [Mass ratio] 28 mg/mg High 10 - 20 [facility] COAGULATIONOrdered By: Wendy Moon on 10-01-2024 aPTT Coag (PPP) [Time] 33.6 s Normal 25.1 - 36.5 second(s) [facility] Auto Coag Comment on above: Interpretive Data: [...] the same coagulation reagent and instrumentation as [facility]. Currently there are no coagulation studies available worldwide for children to 14 days, and no normal ranges. Heparin therapeutic range (represented by Anti-Factor Xa activity of 0.2 - 0.4 U/mL) corresponds to PTT of 56.6 - 109.0 sec. INR Coag (PPP) [Relative time] 1.06 {INR} Invalid Interpretation Code [facility] Auto Coag Comment on above: Interpretive Data: I NR results are specifically intended to assess patients stabilized on long-term Anticoagulation therapy suggested INR s Less Intensive Anticoagulation 2.0 3.0 Conventional Range 3.0 4.5 PT Coag (PPP) [Time] 11.9 s Normal 9.4 - 1 2.5 second(s) [facility] Auto Coag Comment on above: Interpretive Data: [...] the same coagulation reagent and instrumentation as [facility]. Currently there are no coagulation studies available worldwide for children to 14 days, and no normal ranges. ED Clinical Summaryon 2024 ED Clinical Summary ED Clinical Summary [place] [id number] ED Clinical Summary Person Information Name: GLADIS MICHAEL [facility] Age: 49 Years : 1975 Sex: Female Language: Australian PCP: JOVITA WAITE CNP Marital Status: Visit [...] 10/01/2024 22:11:57 10/01/2024 22:11:57 10/01/2024 22:11:57 ADDRESS: [address] [place] [phone] PHYS DOC NOTES: MEDICAL INFORMATION: Prescriptions Given: [...] every day. PATIENT EDUCATION INFORMATION: Instructions: Palpitations, Yyyj-qw-Ikqq; Nonspecific Chest Pain, Adult, Rqps-so-Zsoc; Hypokalemia Follow up: With: Address: When: JOVITA WAITE [address] [address] [phone] Loginza (1) In 3 days 10/04/2024 Comments: Please follow-up with your primary care doctor for further evaluation management. Return to the ED for any new or worsening symptoms or if you have any concerns. DIAGNOSIS: Chest pain; Hypokalemia; Palpitations Normal [facility] ED Note-Physicianon 10-02-19 ED Note-Physician ED [...] and Complexity of Problems Differential Diagnosis: [] [facility] Data External documents reviewed: [] My [...] Oxygen The (more content not included)... Normal [facility] Comment on above: Result Comment: Elec tronically Signed By: Jeffy Das DO\.br\Date and Time Signed: 10/01/24 21:59 EDT ED Patient Summaryon 025 ED Patient Summary ED Patient Summary [place] [id number] Patient Discharge Instructions Person Information Name: GLADIS MICHAEL Age: 49 Years Arrival Date: 10/01/2024 19:54:47 Discharge Diagnosis: Chest pain; Hypokalemia; Palpitations Primary Care Physician: JOVITA WAITE CNP Provider Information Primary Provider: Jeffy Das DO Advanced Video Rental Clerk:None The exam and treatment you received in the Emergency Department were for an urgent problem and are not intended as complete care. It is important that you follow up with a doctor, nurse practitioner, or physician???s freezer assistant for ongoing care. If your symptoms [...] When: JOVITA WAITE [address] [place] [phone] Business (1) In 3 days 10/04/2024 Comments: Please follow-up with your primary care doctor for further evaluation management. Return to the ED for any new or worsening symptoms or if you have any concerns. In the event that this physician does not participate in your insurance network, please consult with your insurance company to find a nearby participating provider. Patient Education Materials: Palpitations, Afcf-is-Ucan; Nonspecific Chest Pain, Adult, Lehq-km-Ekmv; Hypokalemia A MESSAGE TO ALL PATIENTS REGARDING OPIOIDS PRESCRIPTION OPIOIDS: WHAT YOU NEED TO KNOW Prescription opioids can be used to help relieve ysvxuffs-hh-iyzbtc pain and are often prescribed following a [...] and D (more content not included)... Normal [facility] HEMATOLOGYOrdered By: SYSTEM SYSTEM on 10-01-2024 [...] 10-01-2024 Magnesium [Mass/Vol] 2.0 mg/dL Normal 1.3-2.4 [facility] Comment on above: Performed By: #### 2 [id number] #### [facility] [address] [place] [address] PT & PTTon 10-01-2024 aPTT Coag (PPP) [Time] 33.6 second(s) Normal 25.1-36.5 [facility] Comment on above: Result Comment: Para [...] the same coagulation reagent and instrumentation as [facility]. Currently there are no coagulation studies available worldwide for children to 14 days, and no normal ranges. Heparin therapeutic range (represented by Anti-Factor Xa activity of 0.2 - 0.4 U/mL) corresponds to PTT of 56.6 - 109.0 sec. Performed By: #### 1 [id number] #### [facility] [address] [place] [address] INR Coag (PPP) [Relative time] 1.06 {INR} Invalid Interpretation Code [facility] Comment on above: Result Comment: INR results are specifically intended to assess patients stabilized on long-term Anticoagulation therapy suggested INR???s ???Less Intensive Anticoagulation??? 2.0 ??? 3.0 Conventional Range 3.0 ??? 4.5 Performed By: #### 1 [id number] #### [facility] [address] [place] [address] PT Coag (PPP) [Time] 11.9 second(s) Normal 9.4-12.5 [facility] Comment on above: Result Comment: 15 [...] the same coagulation reagent and instrumentation as [facility]. Currently there are no coagulation studies available worldwide for children to 14 days, and no normal ranges. Performed By: #### 1 [id number] #### [facility] [address] [place] [address] TSH With T4fr Reflexon 04-25 -2025 TSH Qn 1.60 m[IU]/L Normal 0.34-5.60 [facility] Comment on above: Performed By: #### 1 [id number] #### [facility] [address] [place] [address] Troponin 0 Hr.on 10-01-2024 Troponin HS 3.20 pg/mL Low 10.10-27.10 [facility] Comment on above: Result Comment: The 95% CI (Confidence Interval) PPV (Positive Predictive Value) for myocardial infarction in females is 38 pg/mL, in males 51 pg/mL. The results should be used in conjunction with clinical conditions of myocardial infarction. (Access High Sensitivity Troponin I Instructions For Use, [employer], January 2018) Performed By: #### 1 [id number] #### [facility] [address] [place] [address] Troponin 1 Hr.on 10-01-2024 Troponin HS 2.80 pg/mL Low 10.10-27.10 [facility] Comment on above: Order Comment: 2111 Result Comment: The 95% CI (Confidence Interval) PPV (Positive Predictive Value) for myocardial infarction in females is 38 pg/mL, in males 51 pg/mL. The results should be used in conjunction with clinical conditions of myocardial infarction. (Access High Sensitivity Troponin I Instructions For Use, [employer], January 2018) Performed By: #### 1 [id number] #### [facility] [address] [place] [address] eGFRon 10-01-2024 eGFR 110 mL/min/1.73 m2 Normal >=59 [facility] Comment on above: Performed By: #### 1 [id number] #### [facility] [address] [place] [address] Office Visiton 04-08-2024 Follow-up visit [id number] Nettie Michael 1975 F Date Provider Department Center 04/08/2024 [facility]ER[facility]D [facility] Family History Problem Relation Age of Onset No Known Problems Mother No Known Problems Father Family Status - Relation Status Age at Mother Father Level of Service:96827 UT OFFICE/OUTPATIENT ESTABLISHED MOD MDM 30 MIN Normal [facility] CBC AUTO DIFFon 09-23-2022 BASO # 0.1 103/ul Normal 0.0-0.1 [facility] Comment on above: Performed By: #### U AMIC #### [facility] [address] [place] [address] [address] Kristen Gambino Basophils/100 WBC (Bld) 0.9 % Normal 0.2-2.0 [facility] Comment on above: Performed By: #### U AMIC #### [facility] [address] [place] [address] [address] Kristen Gambino EO # 0.1 103/ul Normal 0.0-0.7 [facility] Comment on above: Performed By: #### U AMIC #### [facility] [address] [place] [address] [address] Kristen Gambino Eosinophils/100 WBC (Bld) 1.1 % Normal 0.9-7.0 [facility] Comment on above: Performed By: #### U AMIC #### [facility] [address] [place] [address] [address] Kristen Gambino Erythrocyte distribution width (RBC) [Ratio] 13.2 % Normal 11.0-15.0 [facility] Comment on above: Performed By: #### U AMIC #### [facility] [address] [place] [address] [address] Kristen Gambino Hematocrit (Bld) [Volume fraction] 41.2 % Normal 36.0-48.0 [facility] Comment on above: Performed By: #### U AMIC #### [facility] [address] [place] [address] [address] Kristen Gambino Hemoglobin (Bld) [Mass/Vol] 13.8 g/dL Normal 12.0-16.0 [facility] Comment on above: Performed By: #### U AMIC #### [facility] [address] [place] [address] [address] Kristen Gambino IG # 0.03 10e3/ul Normal 0.00-0.03 [facility] Comment on above: Performed By: #### U AMIC #### [facility] [address] [place] [address] [address] Kristen Gambino IG % 0.2 % Normal 0.0-0.5 [facility] Comment on above: Performed By: #### U AMIC #### [facility] [address] [place] [address] [address] Kristen Gambino LYMPH # 3.5 103/ul Normal 1.2-3.8 [facility] Comment on above: Performed By: #### U AMIC #### [facility] [address] [place] [address] Dr. Kristen Gambino Lymphocytes/100 WBC (Bld) 28.4 % Normal 20.5-60.0 [facility] Comment on above: Performed By: #### U AMIC #### [facility] [address] [place] [address] Dr. Kristen Gambino MANUAL DIFF REQ NO Normal [facility] Comment on above: Performed By: #### U AMIC #### [facility] [address] [place] [address] Dr. Kristen Gambino MCH (RBC) [Entitic mass] 27.8 pg Normal 26.7-34.0 [facility] Comment on above: Performed By: #### U AMIC #### [facility] [address] [place] [address] Dr. Kristen Gambino MCHC (RBC) [Mass/Vol] 33.5 g/dL Normal 29.9-35.2 [facility] Comment on above: Performed By: #### U AMIC #### [facility] [address] [place] [address] Dr. Kristen Gambino MCV (RBC) [Entitic vol] 82.9 fL Normal 81.0-99.0 [facility] Comment on above: Performed By: #### U AMIC #### [facility] [address] [place] [address] Dr. Kristen Gambino MONO # 0.9 103/ul Critically high 0.3-0.8 [facility] Comment on above: Performed By: #### U AMIC #### [facility] [address] [place] [address] [address] Kristen Gambino Monocytes/100 WBC (Bld) 7.0 % Normal 1.7-12.0 [facility] Comment on above: Performed By: #### U AMIC #### [facility] [address] [place] [address] [address] Kristen Gambino NEUT # 7.8 103/ul Critically high 1.4-6.5 [facility] Comment on above: Performed By: #### U AMIC #### [facility] [address] [place] [address] [address] Kristen Gambino Neutrophils/100 WBC (Bld) 62.4 % Normal 43.0-75.0 [facility] Comment on above: Performed By: #### U AMIC #### [facility] [address] [place] [address] [address] Kristen Gambino Platelet mean volume (Bld) [Entitic vol] 9.6 fL Normal 9.5-13.5 [facility] Comment on above: Performed By: #### U AMIC #### [facility] [address] [place] [address] [address] Kristen Gambino PLT 409 103/ul Normal 150-450 [facility] Comment on above: Performed By: #### U AMIC #### [facility] [address] [place] [address] [address] Kristen Gambino RBC 4.97 106/ul Normal 4.20-5.40 [facility] Comment on above: Performed By: #### U AMIC #### [facility] [address] [place] [address] [address] Kristen Gambino WBC 12.5 103/ul Critically high 4.0-11.0 [facility] Comment on above: Performed By: #### U AMIC #### [facility] [address] [place] [address] HEAD WO CONon [...] TERRI LANDAVERDE Date: 2022-09-22 23:00 Normal [facility] PROF 14(COMP METB)on 023 Albumin [Mass/Vol] 3.5 g/dL Normal 3.4-5.0 [facility] Comment on above: Performed By: #### C VDTBH #### [facility] [address] [place] [address] Dr. Kristen Gambino Albumin/Globulin [Mass ratio] 0.8 {ratio} Normal [facility] Comment on above: Performed By: #### C VDTBH #### [facility] [address] [place] [address] [address] Kristen Gambino ALP [Catalytic activity/Vol] 67 U/L Normal 46-116 [facility] Comment on above: Performed By: #### C VDTBH #### [facility] [address] [place] [address] [address] Kristen Gambino ALT [Catalytic activity/Vol] 29 U/L Normal 14-59 [facility] Comment on above: Performed By: #### C VDTBH #### [facility] [address] [place] [address] [address] Kristen Gambino Anion gap [Moles/Vol] 12.0 mmol/L Normal [facility] Comment on above: Performed By: #### C VDTBH #### [facility] [address] [place] [address] [address] Kristen Gambino AST [Catalytic activity/Vol] 17 U/L Normal 15-37 [facility] Comment on above: Performed By: #### C VDTBH #### [facility] [address] [place] [address] Dr. Kristen Gambino Bilirubin [Mass/Vol] 0.4 mg/dL Normal 0.2-1.0 [facility] Comment on above: Performed By: #### C VDTBH #### [facility] [address] [place] [address] Dr. Kristen Gambino Calcium [Mass/Vol] 9.5 mg/dL Normal 8.5-10.1 [facility] Comment on above: Performed By: #### C VDTBH #### [facility] [address] [place] [address] Dr. Kristen Gambino Chloride [Moles/Vol] 101 mmol/L Normal 98-107 [facility] [place] Comment on above: Performed By: #### C VDTBH #### [facility] [address] [place] [address] Dr. Kristen Gambino CO2 [Moles/Vol] 28.9 mmol/L Normal 21.0-32.0 [facility] Comment on above: Performed By: #### C VDTBH #### [facility] [address] [place] [address] Dr. Kristen Gambino Creatinine [Mass/Vol] 0.60 mg/dL Normal 0.55-1.02 [facility] Comment on above: Performed By: #### C VDTBH #### [facility] [address] [place] [address] Dr. Kristen Gambino EGFR-AF FINNISH >60 Normal >=60 [facility] Comment on above: Performed By: #### C VDTBH #### [facility] [address] [address] [address] Kristen Gambino EGFR-NON AF FINNISH >60 Normal >=60 [facility] [place] Comment on above: Performed By: #### C VDTBH #### [facility] [address] [address] [address] Kristen Gambino Globulin (S) [Mass/Vol] 4.5 g/dL Normal [facility] [place] Comment on above: Performed By: #### C VDTBH #### [facility] [address] [address] [address] Kristen Gambino Glucose [Mass/Vol] 108 mg/dL Critically high 74-106 [facility] Comment on above: Performed By: #### C VDTBH #### [facility] [address] [place] [address] Dr. Kristen Gambino Potassium [Moles/Vol] 3.9 mmol/L Normal 3.5-5.1 [facility] Comment on above: Performed By: #### C VDTBH #### [facility] [address] [place] [address] Dr. Kristen Gambino Protein [Mass/Vol] 8.0 g/dL Normal 6.4-8.2 [facility] [place] Comment on above: Performed By: #### C VDTBH #### [facility] [address] [place] [address] Dr. Kristen Gambino Sodium [Moles/Vol] 138 mmol/L Normal 136-145 [facility] Comment on above: Performed By: #### C VDTBH #### [facility] [address] [place] [address] Dr. Kristen Gambino Urea nitrogen [Mass/Vol] 10.0 mg/dL Normal 7.0-18.0 [facility] [place] Comment on above: Performed By: #### C VDTBH #### [facility] [address] [place] [address] Dr. Kristen Gambino Urea nitrogen/Creatinine [Mass ratio] 16.7 mg/mg Normal [facility] [place] Comment on above: Performed By: #### C VDTBH #### [facility] [address] [place] [address] Dr. Kristen Gambino PAP ACOG PANEL 2: 30 to 65on 08-15-2022 . . Normal [facility] Comment on above: Result Comment: Perf ormed at: WB Performed By: #### [id number] #### [facility] [address] [place] [address] Dr. Kristen Gambino Age Gdln ACOG Testing 30-65 Normal [facility] [place] Comment on above: Performed By: #### [id number] #### [facility] [address] [place] [address] Dr. Kristen Gambino DIAGNOSIS: Comment Normal [facility] Comment on above: Result Comment: NEGA TIVE FOR INTRAEPITHELIAL LESION OR MALIGNANCY. Performed at: WB Performed By: #### [id number] #### [facility] [address] [place] [address] Dr. Kristen Gambino HPV Aptima Negative Normal Negative [facility] Comment on above: Result Comment: This nucleic acid amplification test detects fourteen high-risk HPV types (16,18,31,33,35,39,45,51,52,56,58,59,66,68) without differentiation. Performed at: =G Performed By: #### [id number] #### [facility] [address] [place] [address] Dr. Kristen Gambino HPV Genotype Reflex Comment Normal [facility] [place] Comment on above: Result Comment: Crit eria not met, HPV Genotype not performed. Performed at: WB Performed By: #### [id number] #### [facility] [address] [place] [address] Dr. Kristen Gambino Methodology: Comment Normal [facility] Comment on above: Result Comment: This liquid based ThinPrep(R) pap test was screened with the use of an image guided system. Performed at: WB Performed By: #### [id number] #### [facility] [address] [place] [address] Dr. Kristen Gambino Note: Comment Normal [facility] [place] Comment on above: Result Comment: The Pap smear is a screening test designed to aid in the detection of premalignant and malignant conditions of the uterine cervix. It is not a diagnostic procedure and should not be used as the sole means of detecting cervical cancer. Both false-positive and false-negative reports do occur. . Performed at: WB Performed By: #### [id number] #### [facility] [address] [place] [address] Dr. Kristen Gambino Performed by: Comment Normal [facility] [place] Comment on above: Result Comment: Nila Romo, [employer] (ASCP) Performed at: WB Performed By: #### [id number] #### [facility] [address] [address] [address] Kristen Gambino Specimen adequacy: Comment Normal [facility] Comment on above: Result Comment: Sati sfactory for evaluation. Endocervical and/or squamous metaplastic cells (endocervical component) are present. Performed at: WB Performed By: #### [id number] #### [facility] [address] [place] [address] Dr. Kristen Gambino US PELVIS AND TRANSVAGon [...] TERRI DELANEY Date: 2022-08-14 07:35 Normal [facility] CULTURE URINEon 08-10-2022 CULTURE URINE Isolate 1 Pseudomonas aeruginosa <10,000 cfu/mL of ORGANISM 1 Pseudomonas aeruginosa ANTIBIOTIC M.I.C RX STATUS Piperacillin/Tazobactam <=4 S F Ceftazidime 2 S F Imipenem 2 S F Amikacin <=2 S F Gentamicin <=1 S F Tobramycin <=1 S F Ciprofloxacin <=0.25 S F Levofloxacin 0.25 S F Normal [facility] Comment on above: Performed By: #### U AMIC #### [facility] [address] [place] [address] Dr. Krsiten Gambino MG MAMM SCREEN 3D ARCHIE CADon 03-06-2022 MG MAMM SCREEN 3D ARCHIE CAD Patient: GLADIS MICHAEL Exam Date: 03/06/2022 : 1975 Gender:F Ordering : [facility] Admission #: [id number] Family : Order #: [id number] CLICK HERE TO VIEW EXAM RADIOLOGY REPORT [...] brain cancer at age 41. LOCATION: [facility] BREAST COMPOSITION: Scattered areas fibroglandular density. [...] Romo MD on 03/06/2022 at 14:25 Normal [facility] Covid-19 PCR (CVDTBH)on 01-07 SARS-CoV-2 (COVID-19) RNA GARTH+probe Ql (Unsp spec) Not detected Normal NOT DETECTED [facility] Comment on above: Result Comment: This test is not yet approved or cleared by the [place] FDA. When there are no FDA-approved or cleared tests available, and other criteria are met, FDA can make tests available under an emergency access mechanism called an Emergency Use Authorization (EUA). The EUA for this test is supported by the Given of Health and Human Service's (HHS's) declaration [...] SARS-CoV-2. Performed By: #### C VDTBH #### [facility] [address] [place] [address] [id number] [address] Kristen Gambino CULTURE URINEon 01-19-2022 CULTURE [...] F Tetracycline >=16 R F Normal [facility] Comment on above: Performed By: #### U AMIC #### [facility] [address] [place] [address] [id number] [address] Kristen Gambino CBC AUTO DIFFon 01-17-2022 BASO # 0.2 103/ul Critically high 0.0-0.1 [facility] [place] Comment on above: Performed By: #### C BC #### [facility] [address] [address] [address] Kristen Gambino Basophils/100 WBC (Bld) 1.3 % Normal 0.2-2.0 [facility] Comment on above: Performed By: #### C BC #### [facility] [address] [address] [address] Kristen Gambino EO # 0.3 103/ul Normal 0.0-0.7 [facility] [place] Comment on above: Performed By: #### C BC #### [facility] [address] [address] [address] Kristen Gambino Eosinophils/100 WBC (Bld) 1.9 % Normal 0.9-7.0 [facility] Comment on above: Performed By: #### C BC #### [facility] [address] [place] [address] Dr. Kristen Gambino Erythrocyte distribution width (RBC) [Ratio] 13.4 % Normal 11.0-15.0 [facility] Comment on above: Performed By: #### C BC #### [facility] [address] [place] [address] Dr. Kristen Gambino Hematocrit (Bld) [Volume fraction] 41.3 % Normal 36.0-48.0 [facility] Comment on above: Performed By: #### C BC #### [facility] [address] [place] [address] Dr. Kristen Gambino Hemoglobin (Bld) [Mass/Vol] 13.6 g/dL Normal 12.0-16.0 [facility] Comment on above: Performed By: #### C BC #### [facility] [address] [place] [address] Dr. Kristen Gambino IG # 0.07 10e3/ul Critically high 0.00-0.03 [facility] Comment on above: Performed By: #### C BC #### [facility] [address] [place] [address] Dr. Kristen Gambino IG % 0.4 % Normal 0.0-0.5 [facility] Comment on above: Performed By: #### C BC #### [facility] [address] [place] [address] Dr. Kirsten Gambino LYMPH # 3.6 103/ul Normal 1.2-3.8 [facility] Comment on above: Performed By: #### C BC #### [facility] [address] [place] [address] Dr. Kristen Gambino Lymphocytes/100 WBC (Bld) 22.4 % Normal 20.5-60.0 [facility] Comment on above: Performed By: #### C BC #### [facility] [address] [place] [address] Dr. Kristen Gambino MANUAL DIFF REQ NO Normal [facility] Comment on above: Performed By: #### C BC #### [facility] [address] [place] [address] Dr. Kristen Gambino MCH (RBC) [Entitic mass] 27.8 pg Normal 26.7-34.0 [facility] Comment on above: Performed By: #### C BC #### [facility] [address] [place] [address] Dr. Kristen Gambino MCHC (RBC) [Mass/Vol] 32.9 g/dL Normal 29.9-35.2 [facility] Comment on above: Performed By: #### C BC #### [facility] [address] [place] [address] Dr. Kristen Gambino MCV (RBC) [Entitic vol] 84.5 fL Normal 81.0-99.0 [facility] Comment on above: Performed By: #### C BC #### [facility] [address] [place] [address] Dr. Kristen Gambino MONO # 1.1 103/ul Critically high 0.3-0.8 [facility] Comment on above: Performed By: #### C BC #### [facility] [address] [place] [address] Dr. Kristen Gambino Monocytes/100 WBC (Bld) 7.0 % Normal 1.7-12.0 [facility] Comment on above: Performed By: #### C BC #### [facility] [address] [place] [address] Dr. Kristen Gambino NEUT # 10.7 103/ul Critically high 1.4-6.5 [facility] Comment on above: Performed By: #### C BC #### [facility] [address] [address] [address] Kristen Gambino Neutrophils/100 WBC (Bld) 67.0 % Normal 43.0-75.0 [facility] Comment on above: Performed By: #### C BC #### [facility] [address] [place] [address] Dr. Kristen Gambino Platelet mean volume (Bld) [Entitic vol] 9.3 fL Critically low 9.5-13.5 [facility] Comment on above: Performed By: #### C BC #### [facility] [address] [place] [address] Dr. Kristen Gambino PLT 502 103/ul Critically high 150-450 [facility] Comment on above: Performed By: #### C BC #### [facility] [address] [place] [address] Dr. Kristen Gambino RBC 4.89 106/ul Normal 4.20-5.40 [facility] Comment on above: Performed By: #### C BC #### [facility] [address] [place] [address] Dr. Kristen Gambino WBC 16.0 103/ul Critically high 4.0-11.0 [facility] Comment on above: Performed By: #### C BC #### [facility] [address] [place] [address] Dr. Kristen Gambino PROF 14(COMP METB)on 022 Albumin [Mass/Vol] 4.0 g/dL Normal 3.4-5.0 [facility] Comment on above: Performed By: #### C MP #### [facility] [address] [place] [address] Dr. Kristen Gambino Albumin/Globulin [Mass ratio] 0.9 {ratio} Normal [facility] Comment on above: Performed By: #### C MP #### [facility] [address] [place] [address] Dr. Kristen Gambino ALP [Catalytic activity/Vol] 72 U/L Normal 46-116 [facility] Comment on above: Performed By: #### C MP #### [facility] [address] [place] [address] Dr. Kristen Gambino ALT [Catalytic activity/Vol] 45 U/L Normal 14-59 [facility] Comment on above: Performed By: #### C MP #### [facility] [address] [place] [address] Dr. Kristen Gambino Anion gap [Moles/Vol] 12.4 mmol/L Normal [facility] Comment on above: Performed By: #### C MP #### [facility] [address] [place] [address] Dr. Kristen Gambino AST [Catalytic activity/Vol] 31 U/L Normal 15-37 [facility] Comment on above: Performed By: #### C MP #### [facility] [address] [place] [address] Dr. Kristen Gambino Bilirubin [Mass/Vol] 0.6 mg/dL Normal 0.2-1.0 [facility] Comment on above: Performed By: #### C MP #### [facility] [address] [place] [address] Dr. Kristen Gambino Calcium [Mass/Vol] 9.2 mg/dL Normal 8.5-10.1 [facility] Comment on above: Performed By: #### C MP #### [facility] [address] [place] [address] Dr. Kristen Gambino Chloride [Moles/Vol] 101 mmol/L Normal 98-107 [facility] Comment on above: Performed By: #### C MP #### [facility] [address] [place] [address] Dr. Kristen Gambino CO2 [Moles/Vol] 26.3 mmol/L Normal 21.0-32.0 [facility] Comment on above: Performed By: #### C MP #### [facility] [address] [place] [address] Dr. Kristen Gambino Creatinine [Mass/Vol] 0.74 mg/dL Normal 0.55-1.02 [facility] Comment on above: Performed By: #### C MP #### [facility] [address] [address] [address] Kristen Gambino EGFR-AF FINNISH >60 Normal >=60 [facility] Comment on above: Performed By: #### C MP #### [facility] [address] [address] [address] Kristen Gambino EGFR-NON AF FINNISH >60 Normal >=60 [facility] Comment on above: Performed By: #### C MP #### [facility] [address] [address] [address] Kristen Gambnio Globulin (S) [Mass/Vol] 4.4 g/dL Normal [facility] Comment on above: Performed By: #### C MP #### [facility] [address] [address] [address] Kristen Gambino Glucose [Mass/Vol] 106 mg/dL Normal 74-106 [facility] Comment on above: Performed By: #### C MP #### [facility] [address] [address] [address] Kristen Gambino Potassium [Moles/Vol] 3.7 mmol/L Normal 3.5-5.1 [facility] Comment on above: Performed By: #### C MP #### [facility] [address] [address] [address] Kristen Gambino Protein [Mass/Vol] 8.4 g/dL Critically high 6.4-8.2 [facility] Comment on above: Performed By: #### C MP #### [facility] [address] [address] [address] Kristen Gambino Sodium [Moles/Vol] 136 mmol/L Normal 136-145 [facility] Comment on above: Performed By: #### C MP #### [facility] [address] [address] [address] Kristen Gambino Urea nitrogen [Mass/Vol] 14.0 mg/dL Normal 7.0-18.0 [facility] Comment on above: Performed By: #### C MP #### [facility] [address] [address] [address] Kristen Gambino Urea nitrogen/Creatinine [Mass ratio] 18.9 mg/mg Normal [facility] Comment on above: Performed By: #### C MP #### [facility] [address] [place] [address] Dr. Kristen Gambino UA RANDOM W/MICROSCOPICon BACTERIA TRACE Abnormal NONE SEEN [facility] Comment on above: Performed By: #### U AMIC #### [facility] [address] [place] [address] Dr. Kristen Gambino Bilirubin Ql (U) Negative Normal NEGATIVE [facility] Comment on above: Performed By: #### U AMIC #### [facility] [address] [place] [address] Dr. Kristen Gambino CA OX CRYSTALS MODERATE Normal [facility] Comment on above: Performed By: #### U AMIC #### [facility] [address] [place] [address] Dr. Kristen Gambino CAST NONE SEEN Normal NONE SEEN [facility] Comment on above: Performed By: #### U AMIC #### [facility] [address] [place] [address] Dr. Kristen Gambino Clarity (U) CLEAR Normal CLEAR [facility] Comment on above: Performed By: #### U AMIC #### [facility] [address] [place] [address] Dr. Kristen Gambino Color (U) YELLOW Normal YELLOW [facility] Comment on above: Performed By: #### U AMIC #### [facility] [address] [place] [address] Dr. Kristen Gambino Crystals LM Nom (Urine sed) SEEN Abnormal NONE SEEN [facility] Comment on above: Performed By: #### U AMIC #### [facility] [address] [place] [address] Dr. Kristen Gambino Epithelial cells LM Ql (Urine sed) MODERATE Abnormal NONE SEEN /RARE [facility] Comment on above: Performed By: #### U AMIC #### [facility] [address] [address] [address] Kristen Gambino Glucose Ql (U) Negative Normal NEGATIVE [facility] Comment on above: Performed By: #### U AMIC #### [facility] [address] [address] [address] Kristen Gambino Hemoglobin Ql (U) Negative Normal NEGATIVE [facility] Comment on above: Performed By: #### U AMIC #### [facility] [address] [address] [address] Kristen Gambino Ketones Ql (U) Negative Normal NEGATIVE [facility] Comment on above: Performed By: #### U AMIC #### [facility] [address] [address] [address] Kristen Gambino LEUKOCYTES SMALL Abnormal NEGATIVE [facility] Comment on above: Performed By: #### U AMIC #### [facility] [address] [place] [address] Dr. Kristen Gambino MUCOUS SMALL Abnormal NONE SEEN [facility] Comment on above: Performed By: #### U AMIC #### [facility] [address] [place] [address] Dr. Kristen Gambino Nitrite Ql (U) Negative Normal NEGATIVE [facility] Comment on above: Performed By: #### U AMIC #### [facility] [address] [place] [address] Dr. Kristen Gambino pH (U) 5.0 [pH] Normal 5-9 [facility] Comment on above: Performed By: #### U AMIC #### [facility] [address] [place] [address] Dr. Krisetn Gambino RBC NONE SEEN Abnormal 0-2 [facility] Comment on above: Performed By: #### U AMIC #### [facility] [address] [place] [address] Dr. Kristen Gambino SPEC GRAVITY >=1.030 Abnormal 1.005-<=1.0 25 [facility] Comment on above: Performed By: #### U AMIC #### [facility] [address] [place] [address] Dr. Kristen Gambino UA PROTEIN Negative Normal NEGATIVE/ TRACE [facility] Comment on above: Performed By: #### U AMIC #### [facility] [address] [address] [address] Kristen Gambino Urobilinogen Qn (U) 0.2 {Sonya'U}/dL Normal 0.2 - 1. 0 [facility] Comment on above: Performed By: #### U AMIC #### [facility] [address] [place] [address] Dr. Kristen Gambino WBC 5-10 Abnormal NONE SEEN [facility] Comment on above: Performed By: #### U AMIC #### [facility] [address] [place] [address] Dr. Kristen Gambino XR TSPINE 2 VIEWSon [...] TERRI DELANEY Date: 2022-01-11 07:20 Normal [facility] CBC AUTO DIFFon 10-26-2021 BASO # 0.1 103/ul Normal 0.0-0.1 [facility] Comment on above: Performed By: #### C BC #### [facility] [address] [place] [address] Dr. Kristen Gambino Basophils/100 WBC (Bld) 1.0 % Normal 0.2-2.0 [facility] Comment on above: Performed By: #### C BC #### [facility] [address] [place] [address] Dr. Kristen Gambino EO # 0.1 103/ul Normal 0.0-0.7 [facility] Comment on above: Performed By: #### C BC #### [facility] [address] [place] [address] Dr. Kristen Gambino Eosinophils/100 WBC (Bld) 1.0 % Normal 0.9-7.0 [facility] Comment on above: Performed By: #### C BC #### [facility] [address] [place] [address] Dr. Kristen Gambino Erythrocyte distribution width (RBC) [Ratio] 13.2 % Normal 11.0-15.0 [facility] Comment on above: Performed By: #### C BC #### [facility] [address] [place] [address] Dr. Kristen Gambino Hematocrit (Bld) [Volume fraction] 42.5 % Normal 36.0-48.0 [facility] Comment on above: Performed By: #### C BC #### [facility] [address] [place] [address] Dr. Kristen Gambino Hemoglobin (Bld) [Mass/Vol] 13.6 g/dL Normal 12.0-16.0 [facility] [place] Comment on above: Performed By: #### C BC #### [facility] [address] [place] [address] Dr. Kristen Gambino IG # 0.05 10e3/ul Critically high 0.00-0.03 [facility] [place] Comment on above: Performed By: #### C BC #### [facility] [address] [place] [address] Dr. Kristen Gambino IG % 0.4 % Normal 0.0-0.5 [facility] Comment on above: Performed By: #### C BC #### [facility] [address] [place] [address] Dr. Kristen Gambino LYMPH # 2.5 103/ul Normal 1.2-3.8 [facility] Comment on above: Performed By: #### C BC #### [facility] [address] [place] [address] Dr. Kristen Gambino Lymphocytes/100 WBC (Bld) 20.2 % Critically low 20.5-60.0 [facility] Comment on above: Performed By: #### C BC #### [facility] [address] [place] [address] Dr. Kristen Gambino MANUAL DIFF REQ NO Normal [facility] Comment on above: Performed By: #### C BC #### [facility] [address] [place] [address] Dr. Kristen Gambino MCH (RBC) [Entitic mass] 27.2 pg Normal 26.7-34.0 [facility] [place] Comment on above: Performed By: #### C BC #### [facility] [address] [place] [address] Dr. Kristen Gambino MCHC (RBC) [Mass/Vol] 32.0 g/dL Normal 29.9-35.2 [facility] Comment on above: Performed By: #### C BC #### [facility] [address] [place] [address] Dr. Kristen Gambino MCV (RBC) [Entitic vol] 85.0 fL Normal 81.0-99.0 [facility] [place] Comment on above: Performed By: #### C BC #### [facility] [address] [place] [address] Dr. Kristen Gambino MONO # 0.7 103/ul Normal 0.3-0.8 [facility] [place] Comment on above: Performed By: #### C BC #### [facility] [address] [place] [address] Dr. Kristen Gambino Monocytes/100 WBC (Bld) 5.7 % Normal 1.7-12.0 [facility] Comment on above: Performed By: #### C BC #### [facility] [address] [place] [address] Dr. Kristen Gambino NEUT # 9.0 103/ul Critically high 1.4-6.5 [facility] Comment on above: Performed By: #### C BC #### [facility] [address] [place] [address] Dr. Kristen Gambino Neutrophils/100 WBC (Bld) 71.7 % Normal 43.0-75.0 [facility] Comment on above: Performed By: #### C BC #### [facility] [address] [place] [address] Dr. Kristen Gambino Platelet mean volume (Bld) [Entitic vol] 9.2 fL Critically low 9.5-13.5 [facility] [place] Comment on above: Performed By: #### C BC #### [facility] [address] [place] [address] Dr. Kristen Gambino PLT 413 103/ul Normal 150-450 [facility] Comment on above: Performed By: #### C BC #### [facility] [address] [place] [address] Dr. Kristen Gambino RBC 5.00 106/ul Normal 4.20-5.40 [facility] [place] Comment on above: Performed By: #### C BC #### [facility] [address] [place] [address] Dr. Kristen Gambino WBC 12.5 103/ul Critically high 4.0-11.0 [facility] [place] Comment on above: Performed By: #### C BC #### [facility] [address] [place] [address] Dr. Kristen Gambino PREG QUANT HCGon 10-26-2021 HCG QUANT 1 mIU/mL Normal [facility] Comment on above: Performed By: #### P REGQNT #### [facility] [address] [place] [address] Dr. Kristen Gambino HCG RANGE SEE BELOW Normal [facility] Comment on above: Result Comment: 5-50 0-1 WEEK 40-300 1-2 WEEKS 100-1,000 2-3 WEEKS 500-6,000 3-4 WEEKS 5,000-200,000 1-2 MONTHS 10,000-100,000 2-3 MONTHS 3,000-50,000 2ND TRIMESTER 1,000-50,000 3RD TRIMESTER Performed By: #### P REGQNT #### [facility] [address] [place] [address] Dr. Kristen Gambino CHEMISTRYOrdered By: SYSTEM SYSTEM [...] rate/Area] mL/min/1.73 m2 Normal >=59mL/min/ 1.[address] [facility] Chem S GFR/1.73 sq M.predicted among non-blacks [...] PM) Normal Negative [facility] UA Auto SS Kelford.plasma/Lithi um.RBC (Bld) [Mass ratio] 0-3 /HPF Normal [...] [facility] UA Auto SS Urobilinogen Qn (U) 0.1130839 {Sonya'U}/dL Normal 0.0 - 1.0 EU/dL [facility] [...] rate/Area] mL/min/1.73 m2 Normal >=59mL/min/ 1.[address] [facility] Chem S GFR/1.73 sq M.predicted among non-blacks MDRD (S/P/Bld) [Vol rate/Area] mL/min/1.73 m2 Normal >=59mL/min/ 1.[address] [facility] Chem S Globulin (S) [Mass/Vol] 3.6 g/dL [...] AM) Normal Negative [facility] UA Auto SS Kelford.plasma/Lithi um.RBC (Bld) [Mass ratio] 0-3 /HPF Normal [...] AM) Invalid Interpretation Code 1.005 - 1.030 [facility] UA Auto SS UA Spec Desc Clean Catch (10/18/21 5:09 AM) Normal [facility] UA Auto SS Urobilinogen Qn (U) 0.7679069 {Sonya'U}/dL Normal 0.0 - 1.0 EU/dL [facility] UA Auto SS WBC Auto Ql (U) Trace *ABN* (10/18/21 5:09 AM) Invalid Interpretation Code Negative [facility] UA Auto SS WBC LM.HPF (Urine sed) [#/Area] 0-5 /HPF Normal 0-5/HPF [facility] UA Auto SS CBC AUTO DIFFon 09-27-2021 BASO # 0.1 103/ul Normal 0.0-0.1 [facility] [place] Comment on above: Performed By: #### C BC #### [facility] [address] [place] [address] Dr. Kristen Gambino Basophils/100 WBC (Bld) 1.0 % Normal 0.2-2.0 [facility] [place] Comment on above: Performed By: #### C BC #### [facility] [address] [place] [address] Dr. Kristen Gambino EO # 0.1 103/ul Normal 0.0-0.7 [facility] [place] Comment on above: Performed By: #### C BC #### [facility] [address] [place] [address] Dr. Kristen Gambino Eosinophils/100 WBC (Bld) 0.9 % Normal 0.9-7.0 [facility] [place] Comment on above: Performed By: #### C BC #### [facility] [address] [place] [address] Dr. Kristen Gambino Erythrocyte distribution width (RBC) [Ratio] 13.3 % Normal 11.0-15.0 [facility] [place] Comment on above: Performed By: #### C BC #### [facility] [address] [place] [address] Dr. Kristen Gambino Hematocrit (Bld) [Volume fraction] 44.6 % Normal 36.0-48.0 [facility] [place] Comment on above: Performed By: #### C BC #### [facility] [address] [place] [address] Dr. Kristen Gambino Hemoglobin (Bld) [Mass/Vol] 14.4 g/dL Normal 12.0-16.0 [facility] [place] Comment on above: Performed By: #### C BC #### [facility] [address] [place] [address] Dr. Kristen Gambino IG # 0.03 10e3/ul Normal 0.00-0.03 [facility] [place] Comment on above: Performed By: #### C BC #### [facility] [address] [place] [address] Dr. Kristen Gambino IG % 0.3 % Normal 0.0-0.5 [facility] [place] Comment on above: Performed By: #### C BC #### [facility] [address] [place] [address] Dr. Kristen Gambino LYMPH # 1.6 103/ul Normal 1.2-3.8 [facility] [place] Comment on above: Performed By: #### C BC #### [facility] [address] [place] [address] Dr. Kristen Gambino Lymphocytes/100 WBC (Bld) 17.9 % Critically low 20.5-60.0 [facility] [place] Comment on above: Performed By: #### C BC #### [facility] [address] [place] [address] Dr. Kristen Gambino MANUAL DIFF REQ NO Normal [facility] Comment on above: Performed By: #### C BC #### [facility] [address] [place] [address] Dr. Kristen Gambino MCH (RBC) [Entitic mass] 27.1 pg Normal 26.7-34.0 [facility] [place] Comment on above: Performed By: #### C BC #### [facility] [address] [place] [address] Dr. Kristen Gambino MCHC (RBC) [Mass/Vol] 32.3 g/dL Normal 29.9-35.2 [facility] [place] Comment on above: Performed By: #### C BC #### [facility] [address] [address] [address] Kristen Gambino MCV (RBC) [Entitic vol] 84.0 fL Normal 81.0-99.0 [facility] [place] Comment on above: Performed By: #### C BC #### [facility] [address] [place] [address] Dr. Kristen Gambino MONO # 0.7 103/ul Normal 0.3-0.8 [facility] [place] Comment on above: Performed By: #### C BC #### [facility] [address] [place] [address] Dr. Kristen Gambino Monocytes/100 WBC (Bld) 7.6 % Normal 1.7-12.0 [facility] Comment on above: Performed By: #### C BC #### [facility] [address] [place] [address] Dr. Kristen Gambino NEUT # 6.6 103/ul Critically high 1.4-6.5 [facility] Comment on above: Performed By: #### C BC #### [facility] [address] [place] [address] Dr. Kristen Gambino Neutrophils/100 WBC (Bld) 72.3 % Normal 43.0-75.0 [facility] [place] Comment on above: Performed By: #### C BC #### [facility] [address] [place] [address] Dr. Kristen Gmabino Platelet mean volume (Bld) [Entitic vol] 9.8 fL Normal 9.5-13.5 [facility] [place] Comment on above: Performed By: #### C BC #### [facility] [address] [place] [address] Dr. Kristen Gambino PLT 427 103/ul Normal 150-450 [facility] Comment on above: Performed By: #### C BC #### [facility] [address] [place] [address] Dr. Kristen Gambino RBC 5.31 106/ul Normal 4.20-5.40 [facility] Comment on above: Performed By: #### C BC #### [facility] [address] [address] [address] Kristen Gambino WBC 9.1 103/ul Normal 4.0-11.0 [facility] Comment on above: Performed By: #### C BC #### [facility] [address] [address] [address] Kristen Gambino LIPID PROFILEon 09-27-2021 CHOL-HDL RATIO NORM SEE BELOW Normal [facility] Comment on above: Result Comment: 3.3 - 4.4 LOW RISK 4.4 - 7.1 AVERAGE RISK 7.1 - 11.0 MODERATE RISK >11.0 HIGH RISK Performed By: #### C MP, LIPID #### [facility] [address] [address] [address] Kristen Gambino Cholesterol [Mass/Vol] 186 mg/dL Normal <=200 [facility] Comment on above: Performed By: #### C MP, LIPID #### [facility] [address] [place] [address] Dr. Kristen Gambino Cholesterol in HDL [Mass/Vol] 43 mg/dL Normal 40-60 [facility] Comment on above: Performed By: #### C MP, LIPID #### [facility] [address] [address] [address] Kristen Gambino Cholesterol in LDL [Mass/Vol] 106.6 mg/dL Normal [facility] [place] Comment on above: Performed By: #### C MP, LIPID #### [facility] [address] [address] [address] Kristen Gambino Cholesterol.total/Ch olesterol in HDL [Mass ratio] 4.3 {ratio} Normal [facility] [place] Comment on above: Performed By: #### C MP, LIPID #### [facility] [address] [address] [address] Kristen Gambino HDL NORMAL > or = 60 mg/dl - LO W CARDIOVASCULAR RISK <40 mg/dl - HIGH CARDIOVASCULAR RISK Normal [facility] [place] Comment on above: Performed By: #### C MP, LIPID #### [facility] [address] [address] [address] Kristen Gambino LDL CALC NORMAL SEE BELOW Normal [facility] Comment on above: Result Comment: <100 mg/dl OPTIMAL 100 - 129 mg/dl NEAR OR ABOVE OPTIMAL 130 - 159 mg/dl BORDERLINE HIGH 160 - 189 mg/dl HIGH >190 mg/dl VERY HIGH Performed By: #### C MP, LIPID #### [facility] [address] [place] [address] Dr. Kristen Gambino Triglyceride [Mass/Vol] 182 mg/dL Critically high <=150 [facility] Comment on above: Performed By: #### C MP, LIPID #### [facility] [address] [place] [address] Dr. Kristen Gambino VLDL CALC 36.4 mg/dL Normal [facility] Comment on above: Performed By: #### C MP, LIPID #### [facility] [address] [place] [address] Dr. Kristen Gambino PROF 14(COMP METB)on 022 Albumin [Mass/Vol] 3.7 g/dL Normal 3.4-5.0 [facility] Comment on above: Performed By: #### C MP, LIPID #### [facility] [address] [place] [address] Dr. Kristen Gambino Albumin/Globulin [Mass ratio] 0.8 {ratio} Normal [facility] Comment on above: Performed By: #### C MP, LIPID #### [facility] [address] [place] [address] Dr. Kristen Gambino ALP [Catalytic activity/Vol] 70 U/L Normal 46-116 [facility] Comment on above: Performed By: #### C MP, LIPID #### [facility] [address] [place] [address] Dr. Kristen Gambino ALT [Catalytic activity/Vol] 35 U/L Normal 14-59 [facility] Comment on above: Performed By: #### C MP, LIPID #### [facility] [address] [place] [address] Dr. Kristen Gambino Anion gap [Moles/Vol] 13.1 mmol/L Normal [facility] Comment on above: Performed By: #### C MP, LIPID #### [facility] [address] [place] [address] Dr. Kristen Gambino AST [Catalytic activity/Vol] 19 U/L Normal 15-37 [facility] Comment on above: Performed By: #### C MP, LIPID #### [facility] [address] [place] [address] Dr. Krsiten Gambino Bilirubin [Mass/Vol] 0.7 mg/dL Normal 0.2-1.3 [facility] Comment on above: Performed By: #### C MP, LIPID #### [facility] [address] [place] [address] Dr. Kristen Gambino Calcium [Mass/Vol] 8.5 mg/dL Normal 8.5-10.1 [facility] Comment on above: Performed By: #### C MP, LIPID #### [facility] [address] [place] [address] Dr. Kristen Gambino Chloride [Moles/Vol] 102 mmol/L Normal 98-107 [facility] Comment on above: Performed By: #### C MP, LIPID #### [facility] [address] [place] [address] Dr. Kristen Gambino CO2 [Moles/Vol] 25.9 mmol/L Normal 22.0-30.0 [facility] Comment on above: Performed By: #### C MP, LIPID #### [facility] [address] [place] [address] Dr. Kristen Gambino Creatinine [Mass/Vol] 0.62 mg/dL Normal 0.52-1.04 [facility] Comment on above: Performed By: #### C MP, LIPID #### [facility] [address] [place] [address] Dr. Kristen Gambino EGFR-AF FINNISH >60 Normal >=60 [facility] Comment on above: Performed By: #### C MP, LIPID #### [facility] [address] [place] [address] Dr. Kristen Gambino EGFR-NON AF FINNISH >60 Normal >=60 [facility] Comment on above: Performed By: #### C MP, LIPID #### [facility] [address] [place] [address] Dr. Kristen Gambino Globulin (S) [Mass/Vol] 4.4 g/dL Normal [facility] Comment on above: Performed By: #### C MP, LIPID #### [facility] [address] [place] [address] Dr. Kristen Gambino Glucose [Mass/Vol] 104 mg/dL Normal 74-106 [facility] Comment on above: Performed By: #### C MP, LIPID #### [facility] [address] [place] [address] Dr. Kristen Gambino Potassium [Moles/Vol] 4.0 mmol/L Normal 3.4-5.0 [facility] Comment on above: Performed By: #### C MP, LIPID #### [facility] [address] [place] [address] Dr. Kristen Gambino Protein [Mass/Vol] 8.1 g/dL Normal 6.1-8.2 [facility] Comment on above: Performed By: #### C MP, LIPID #### [facility] [address] [place] [address] Dr. Kristen Gambino Sodium [Moles/Vol] 137 mmol/L Normal 137-145 [facility] Comment on above: Performed By: #### C MP, LIPID #### [facility] [address] [place] [address] Dr. Kristen Gambino Urea nitrogen [Mass/Vol] 12.0 mg/dL Normal 7.0-18.0 [facility] Comment on above: Performed By: #### C MP, LIPID #### [facility] [address] [place] [address] Dr. Kristen Gambino Urea nitrogen/Creatinine [Mass ratio] 19.4 mg/mg Normal [facility] Comment on above: Performed By: #### C MP, LIPID #### [facility] [address] [place] [address] Dr. Kristen Gambino PROGRESSon 10-21-2017 PROGRESS HNO ID: [id number] thor: Isaac Carrasco: (none)Author Type: PhysicianType: Progress NotesFiled: 10/21/2017 2:01 PMNote Text:PATIENT NAME: Gladis PatelarMRN: [id number] PHYSICIAN: Joseph Harris DO[address] [address]DQFGFSR CARE PHYSICIAN: MASOOD Rubin PHYSICIANS:CHIEF COMPLAINT: Pituitary [...] for5 days straight. Went to ER 02/26. Crittenden was negative, strep negative.Flu negative. She was [...] plan. I answered all questionssatisfactorily..Tulio Shelton D.O.Medical OncologistJohnson Regional Medical Center CNOVSPon 10-20-2017 CNOVSP Visit (SP) Office ([place]) -------GLADIS MICHAEL ([id number]) 1975 [facility] Time Provider Department10/20/17 10:00 AM ISAAC SHELTON During your visit today, we recorded the following information about you: Temperature Pulse Respiration Blood pressure 98.5 degrees 69/minute 18/minute 159/106 Weight Height 105.9 kg 1.575 Kassidy Shelton DO 10/21/2017 2:01 PM SignedPATIENT NAME: Gladis ElderRN: [id number] PHYSICIAN: Joseph Harris, [address] [place] [address]YCYXGQO CARE PHYSICIAN: MASOOD Rubin PHYSICIANS:CHIEF COMPLAINT: Pituitary [...] for 5days straight. Went to ER 02/26. Crittenden was negative, strep negative. Flunegative. She was [...] theserecommendations and plan. 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]Order(s):CONSULT TO ENDOCRINOLOGY [9007] Order #: [id number]: 1Disposition: Return in about 7 months (around [...] by ISAAC SHELTON DO on 10/21/17 Normal [facility] Remote Abs Gran + CBC (for F HC use only)on 10-20-2017 Absol Gran Count 6.74 k/uL Normal 1.45-7.50 [facility] Erythrocyte distribution width Auto Ratio (RBC) 13.9 % Normal 11.5-15.0 [facility] Erythrocytes (RBC) 4.76 10*6/uL Normal 3.90-5.20 [facility] Hematocrit (HCT) 39.5 % Normal 36.0-46.0 [facility] Hemoglobin mass conc (Bld) 13.4 g/dL Normal 11.5-15.5 [facility] MCH 28.2 pG Normal 26.0-34.0 [facility] MCHC mass conc (RBC) 33.9 g/dL Normal 30.5-36.0 [facility] MCV 83.0 fL Normal 80.0-100.0 [facility] Platelet mean volume (PMV) 9.4 fL Normal 9.0-12.7 [facility] Platelets 434 10*3/uL High 150-400 [facility] WBC (Leukocytes) 10.26 10*3/uL Normal 3.70-11.00 [facility] CNOVSPon 10-09-2017 CNOVSP Visit (SP) Office ([place]) -------GLADIS MICHAEL ([id number]) 1975 FDate Time Provider Department10/09/17 11:15 AM ISAAC SHELTON During your visit today, we recorded the following information about you: Temperature Pulse Respiration Blood pressure 98 degrees 75/minute 18/minute 151/106 Weight Height 111 kg 1.575 Isaac Myers 10/10/2017 2:10 AM SignedPATIENT NAME: Gladis PatelarMRN: [id number] PHYSICIAN: Joseph Harris DO[address] [place] [address]NRPGZZH CARE PHYSICIAN: MASOOD Rubin PHYSICIANS:CHIEF COMPLAINT: Lymphocytosis [...] for 5days straight. Went to ER 02/26. Crittenden was negative, strep negative. Flunegative. She was [...] plan. I answered allquestions satisfactorily..Hai Shelton D.O.Medical OncologistRising Sun, [place]Referring Provider: ISAAC SHELTON [[id number]]Allergies As of Date: 10/09/2017 Noted Allergy ReactionTOPROL XL (METOPROLOL) 04/11/2016 14 - Other: See Comments Comments: heart races per patientDate Reviewed: 10/09/2017Reviewed by: Denise Witt - Fully AssessedReason for Visit: lymphocytosis [Other] Cmt: follow up per nursePrimary Visit Diagnosis:Lymphocytosis [D72.820] Other Visit Diagnosis:Cervical adenopathy [R59.0]Order(s):CT NECK SOFT TISSUE W IVCON [6472496] Order #: [id number] FUTURE [] iv contrast (radiology procedure)Inject 1 [...] 1 EachRfl: 0 CT CHEST WO IVCON [[id number]] Order #: [id number] FUTURE CT CHEST W IVCON [[id number]] Order #: [id number] FUTURE iv contrast (radiology procedure)CT Chest W [...] by ISAAC SHELTON DO on 10/10/17 Normal [facility] PROGRESSon 10-09-2017 PROGRESS HNO ID: [id number] thor: Isaac Shelton JService: (none)Author Type: PhysicianType: Progress NotesFiled: 10/10/2017 2:10 AMNote Text:PATIENT NAME: Gladis ElderRN: [id number] PHYSICIAN: Joseph Harris DO[address] [place] [address]WEQHEWD CARE PHYSICIAN: MASOOD Rubin PHYSICIANS:CHIEF COMPLAINT: Lymphocytosis [...] for5 days straight. Went to ER 02/26. Crittenden was negative, strep negative.Flu negative. She was [...] plan.I answered all questions satisfactorily..Hai Shelton D.O.Medical OncologistJohnson Regional Medical Center APTTon 10-06-2017 aPTT 22.4 s Low 23.0-32.4 [facility] Comment on above: Result [...] laboratory APTT reagent in use throughout the [facility]. Performed By: #### P T, PTT, BMP, HFP, LD6, WSR, SEPG, MPASRM, KLFRS ####[place] [address] Ave[address] [place], [place] [phone] Basic Metabolic Panlon 10-06 Anion gap 12 mmol/L Normal 9-18 [facility] Comment on above: Performed By: #### P T, PTT, BMP, HFP, LD6, WSR, SEPG, MPASRM, KLFRS ####[place] [address], [place] [phone] Calcium 9.5 mg/dL Normal 8.5-10.2 [facility] Comment on above: Performed By: #### P T, PTT, BMP, HFP, LD6, WSR, SEPG, MPASRM, KLFRS ####[place] [address] [address] [phone] Chloride 96 mmol/L Low 97-105 [facility] Comment on above: Performed By: #### P T, PTT, BMP, HFP, LD6, WSR, SEPG, MPASRM, KLFRS ####[place] [address] [address] [phone] CO2 26 mmol/L Normal 22-30 [facility] Comment on above: Performed By: #### P T, PTT, BMP, HFP, LD6, WSR, SEPG, MPASRM, KLFRS ####[place] [address] [address] [phone] Creatinine 0.54 mg/dL Low 0.58-0.96 [facility] Comment on above: Performed By: #### P T, PTT, BMP, HFP, LD6, WSR, SEPG, MPASRM, KLFRS ####[place] [address] [place], [place] [phone] eGFR (non-black) mL/min/{1.73_m2} Normal [facility] Comment on above: Result Comment: eGFR [...] BMP, HFP, LD6, WSR, SEPG, MPASRM, KLFRS ####[facility] [place], [place] [phone] Glucose mass conc 81 mg/dL Normal 74-99 [facility] Comment on above: Result Comment: The [place] Diabetes Association (ADA) provides guidance for cutoff [...] Standards of Medical Care in Diabetes 2016, [place] Diabetes Association. Diabetes Care. 2016.39(Suppl 1). Performed By: #### P T, PTT, BMP, HFP, LD6, WSR, SEPG, MPASRM, KLFRS ####[facility] [place], [place] [phone] Potassium molar conc 4.4 mmol/L Normal 3.7-5.1 [facility] Comment on above: Performed By: #### P T, PTT, BMP, HFP, LD6, WSR, SEPG, MPASRM, KLFRS ####[place] [address] [address] [phone] Sodium 134 mmol/L Low 136-144 [facility] Comment on above: Performed By: #### P T, PTT, BMP, HFP, LD6, WSR, SEPG, MPASRM, KLFRS ####[address] [phone] Urea nitrogen 10 mg/dL Normal 7-21 [facility] Comment on above: Performed By: #### P T, PTT, BMP, HFP, LD6, WSR, SEPG, MPASRM, KLFRS ####[address]uz[address] Ville [phone] Hepatic Functn Panelon 10-06 Alanine aminotransferase (ALT) 20 U/L Normal 7-38 [facility] Comment on above: Performed By: #### P T, PTT, BMP, HFP, LD6, WSR, SEPG, MPASRM, KLFRS ####[address] [phone] Albumin 4.3 g/dL Normal 3.9-4.9 [facility] Comment on above: Performed By: #### P T, PTT, BMP, HFP, LD6, WSR, SEPG, MPASRM, KLFRS ####[address] [phone] Alkaline phosphatase (ALP) 64 U/L Normal 32-117 [facility] Comment on above: Performed By: #### P T, PTT, BMP, HFP, LD6, WSR, SEPG, MPASRM, KLFRS ####[place] [address] [phone] Aspartate aminotransferase (AST) 14 U/L Normal 13-35 [facility] Comment on above: Performed By: #### P T, PTT, BMP, HFP, LD6, WSR, SEPG, MPASRM, KLFRS ####[facility], [place] [phone] Bilirubin (total) 0.3 mg/dL Normal 0.2-1.3 [facility] Comment on above: Performed By: #### P T, PTT, BMP, HFP, LD6, WSR, SEPG, MPASRM, KLFRS ####[place] [address] [address] [place], [place] [phone] Bilirubin,Conjugated <0.2 Normal <0.2 [facility] Comment on above: Performed By: #### P T, PTT, BMP, HFP, LD6, WSR, SEPG, MPASRM, KLFRS ####[place] [address] [address] [place], [place] [phone] Protein 7.9 g/dL Normal 6.3-8.0 [facility] Comment on above: Performed By: #### P T, PTT, BMP, HFP, LD6, WSR, SEPG, MPASRM, KLFRS ####[place] [address] [address] [phone] Delhi/Cope,Free,Seron 2017 K/L Ratio, Serum 1.83 High 0.26-1.65 [facility] Comment on above: Performed By: #### P T, PTT, BMP, HFP, LD6, WSR, SEPG, MPASRM, KLFRS ####[place] [address] [address], [place] [phone] Delhi, Free, Serum 22.5 mg/L High 3.30-19.40 [facility] Comment on above: Result Comment: Rare ly, increased serum free light chains values may not be detected due to antigen excess phenomenon. Results should always be correlated with other laboratory results and clinical findings. Performed By: #### P T, PTT, BMP, HFP, LD6, WSR, SEPG, MPASRM, KLFRS ####[place] [address] [address], [place] [phone] Lambda, Free, Serum 12.3 mg/L Normal 5.7-26.3 [facility] Comment on above: Result Comment: Rare ly, increased serum free light chains values may not be detected due to antigen excess phenomenon. Results should always be correlated with other laboratory results and clinical findings. Performed By: #### P T, PTT, BMP, HFP, LD6, WSR, SEPG, MPASRM, KLFRS ####[place] [address] [address], [place] [phone] LDon 10-06-2017 LD 141 U/L Normal 135-214 [facility] Comment on above: Performed By: #### P T, PTT, BMP, HFP, LD6, WSR, SEPG, MPASRM, KLFRS ####[address] AveCCanon City, [place] [phone] Monoclonl Protein,Blon 10-06 MPA Interpretation SEE COMMENT Normal [facility] Comment on above: Result Comment: Atyp ical restricted bands are present in the IgG and lambda regions. Consistent with IgG lambda monoclonal gammopathy. Performed By: #### P T, PTT, BMP, HFP, LD6, WSR, SEPG, MPASRM, KLFRS ####[place] [address] [address] [place], [place] [phone] MPA Parminder/Milner Ratio 2.12 Normal 1-3 [facility] Comment on above: Performed By: #### P T, PTT, BMP, HFP, LD6, WSR, SEPG, MPASRM, KLFRS ####[place] [address] AveClevelEl [place], [place] [phone] MPA Result M protein is present. Critically abnormal No M protein is identified. [facility] Comment on above: Performed By: #### P T, PTT, BMP, HFP, LD6, WSR, SEPG, MPASRM, KLFRS ####[place] [address] AveClevelEl [place], [place] [phone] MPA Serum IgA 130 mg/dL Normal 78-391 [facility] Comment on above: Performed By: #### P T, PTT, BMP, HFP, LD6, WSR, SEPG, MPASRM, KLFRS ####[facility] AveClevelandJohnny [place] [phone] MPA Serum IgG 1450 mg/dL High 717-1411 [facility] Comment on above: Performed By: #### P T, PTT, BMP, HFP, LD6, WSR, SEPG, MPASRM, KLFRS ####[place] [address] [address] AveClevelMarc [place] [phone] MPA Serum IgM 123 mg/dL Normal 53-334 [facility] Comment on above: Performed By: #### P T, PTT, BMP, HFP, LD6, WSR, SEPG, MPASRM, KLFRS ####[place] [address]ClevelMarc [place] [phone] Serum Delhi 1260 mg/dL Normal 534-1267 [facility] Comment on above: Performed By: #### P T, PTT, BMP, HFP, LD6, WSR, SEPG, MPASRM, KLFRS ####[place] [address] [place] [phone] Serum Lambda 595 mg/dL Normal 253-653 [facility] Comment on above: Performed By: #### P T, PTT, BMP, HFP, LD6, WSR, SEPG, MPASRM, KLFRS ####[place] [address] AveClevelMarc [place] [phone] Staff Review Reviewed by Delores Means MD ([id number]) [facility] Comment on above: Performed By: #### P T, PTT, BMP, HFP, LD6, WSR, SEPG, MPASRM, KLFRS ####[address] AveCTyler [place]ille [phone] Protein Electrophor.on 10-06 Albumin 3.93 g/dL Normal 3.37-4.23 [facility] Comment on above: Performed By: #### P T, PTT, BMP, HFP, LD6, WSR, SEPG, MPASRM, KLFRS ####[place] [address] [place], [place] [phone] Alpha 1 Globulin 0.16 gm/dL Low 0.18-0.31 [facility] Comment on above: Performed By: #### P T, PTT, BMP, HFP, LD6, WSR, SEPG, MPASRM, KLFRS ####[address] [phone] Alpha 2 Globulin 0.80 gm/dL Normal 0.52-0.97 [facility] Comment on above: Performed By: #### P T, PTT, BMP, HFP, LD6, WSR, SEPG, MPASRM, KLFRS ####[address] [phone] Beta Globulin 1.11 gm/dL Normal 0.84-1.36 [facility] Comment on above: Performed By: #### P T, PTT, BMP, HFP, LD6, WSR, SEPG, MPASRM, KLFRS ####[address] [phone] Gamma Globulin 1.49 gm/dL High 0.70-1.44 [facility] Comment on above: Performed By: #### P T, PTT, BMP, HFP, LD6, WSR, SEPG, MPASRM, KLFRS ####[address] [place], [place] [phone] Interpretation SEE COMMENT Normal [facility] Comment on above: Result Comment: An M protein is identified on protein electrophoresis.See separate immunofixation report for characterization of the M protein.M protein is present on the background of a polyclonal immunoglobulin population. Quantitation of the M protein may overestimate the amount of M protein present. Performed By: #### P T, PTT, BMP, HFP, LD6, WSR, SEPG, MPASRM, KLFRS ####[address] [place], [place] [phone] M Protein Location Gamma fraction Normal [facility] Comment on above: Performed By: #### P T, PTT, BMP, HFP, LD6, WSR, SEPG, MPASRM, KLFRS ####[address], [place] [phone] M Ja Concentratn 0.18 gm/dL High 0.00 [facility] Comment on above: Performed By: #### P T, PTT, BMP, HFP, LD6, WSR, SEPG, MPASRM, KLFRS ####[address] [phone] SPE Staff Review Reviewed by Delores Means MD ([id number]) Normal [facility] Comment on above: Performed By: #### P T, PTT, BMP, HFP, LD6, WSR, SEPG, MPASRM, KLFRS ####[address] [phone] Total Protein, SPE 7.5 g/dL Normal 6.0-8.4 [facility] Comment on above: Performed By: #### P T, PTT, BMP, HFP, LD6, WSR, SEPG, MPASRM, KLFRS ####[address], [place] [phone] Protimeon 10-06-2017 INR Coag RelTime (Bld) 1.0 {INR} Normal 0.9-1.3 [facility] Comment on above: Result Comment: Muna min K Antagonist (VKA) Therapeutic Range: INR 2 to 3 (Target INR of 2.5)Note: For patients treated with VKA drugs, such as warfarin, the [place] [employer] 2012 Guideline recommends [...] al. Chest 2012, 141:7S-47SNishhenok RA, et al. [facility] 2017, 70: 252-289 Performed By: #### P T, PTT, BMP, HFP, LD6, WSR, SEPG, MPASRM, KLFRS ####[place] [phone] Performed By: #### V WFPN ####[place] [phone] PT Sec 10.3 sec Normal 9.7-13.0 [facility] Comment on above: Performed By: #### P T, PTT, BMP, HFP, LD6, WSR, SEPG, MPASRM, KLFRS ####[place] [phone] Performed By: #### V WFPN ####[place] [phone] Remote CBCDIF (for [facility] use o nly)on 10-06-2017 Abs Baso 0.12 k/uL High <0.11 [facility] Comment on above: Performed By: #### R CBCDF ####[place] [phone] Abs [place] 0.85 k/uL Normal <0.87 [facility] Comment on above: Performed By: #### R CBCDF ####[address] [phone] Abs Neut 9.52 k/uL High 1.45-7.50 [facility] Comment on above: Performed By: #### R CBCDF ####[place] [address] [place], [place] [phone] Basophils/100 WBC Auto (Bld) 0.9 % Normal [facility] Comment on above: Performed By: #### R CBCDF ####[address] [phone] DTYPE Auto Diff Normal [facility] Comment on above: Performed By: #### R CBCDF ####[address] [phone] Eosinophils 0.12 10*3/uL Normal <0.46 [facility] Comment on above: Performed By: #### R CBCDF ####[address] [phone] Eosinophils/100 leukocytes 0.9 % Normal [facility] Comment on above: Performed By: #### R CBCDF ####[address] [phone] Erythrocyte distribution width Auto Ratio (RBC) 13.8 % Normal 11.5-15.0 [facility] Comment on above: Performed By: #### R CBCDF ####[place] [address] [address], [place] [phone] Erythrocytes (RBC) 10*6/uL Normal <0.01 [facility] Comment on above: Performed By: #### R CBCDF ####[address] [phone] Erythrocytes (RBC) 0.0 /100 WBC Normal 0 [facility] Comment on above: Performed By: #### R CBCDF ####[address] [phone] Erythrocytes (RBC) 4.46 10*6/uL Normal 3.90-5.20 [facility] Comment on above: Performed By: #### R CBCDF ####[address] [place], [place] [phone] Hematocrit (HCT) 37.7 % Normal 36.0-46.0 [facility] Comment on above: Performed By: #### R CBCDF ####[place] [phone] Hemoglobin mass conc (Bld) 12.6 g/dL Normal 11.5-15.5 [facility] Comment on above: Performed By: #### R CBCDF ####[address] [phone] Lymphocytes 2.67 10*3/uL Normal 1.00-4.00 [facility] Comment on above: Performed By: #### R CBCDF ####[place] [phone] Lymphocytes/100 leukocytes 20.1 % Normal [facility] Comment on above: Performed By: #### R CBCDF ####[address] [phone] MCH 28.3 pG Normal 26.0-34.0 [facility] Comment on above: Performed By: #### R CBCDF ####[address] [phone] MCHC mass conc (RBC) 33.4 g/dL Normal 30.5-36.0 [facility] Comment on above: Performed By: #### R CBCDF ####[address] [phone] MCV 84.5 fL Normal 80.0-100.0 [facility] Comment on above: Performed By: #### R CBCDF ####[place] [address], [place] [phone] Monocytes/100 leukocytes 6.4 % Normal [facility] Comment on above: Performed By: #### R CBCDF ####[address] [phone] Neutrophils/100 WBC Auto (Bld) 71.7 % Normal [facility] Comment on above: Performed By: #### R CBCDF ####[address] [phone] Platelet mean volume (PMV) 10.0 fL Normal 9.0-12.7 [facility] Comment on above: Performed By: #### R CBCDF ####[address] [phone] Platelets 434 10*3/uL High 150-400 [facility] Comment on above: Performed By: #### R CBCDF ####[address] [phone] WBC (Leukocytes) 13.28 10*3/uL High 3.70-11.00 [facility] Comment on above: Performed By: #### R CBCDF ####[address] [phone] Sed Rate Westergrenon 2017 Sed Rate Westergren 27 mm/hr High 0-20 [facility] Comment on above: Performed By: #### P T, PTT, BMP, HFP, LD6, WSR, SEPG, MPASRM, KLFRS ####[address] [phone] von Willebrand Diagon 2017 aPTT 26.7 s Normal 23.0-32.4 [facility] Comment on above: Result [...] laboratory APTT reagent in use throughout the [facility]. Performed By: #### V WFPN ####[place] [address] [address] Av[place], [place] [phone] CBA/VWF Ratio 0.7 Normal >0.5 [facility] Comment on above: Performed By: #### V SABINAPN ####[place] [address] [address], [place] [phone] COL/ADP Cartridge 127 CT (sec) High <118 [facility] Comment on above: Result Comment: Resu lts are reported as Closure Time (CT) in seconds. Performed By: #### V WFPN ####[place] [address] [address], [place] [phone] COL/EPI Cartridge 117 CT (sec) Normal <199 [facility] Comment on above: Result Comment: Resu lts are reported as Closure Time (CT) in seconds. Performed By: #### V WFPN ####[address] [phone] Collagen Binding-CBA 118 % Normal 41-161 [facility] Comment on above: Result Comment: This test uses a reagent or kit labeled by the animal surgeon as research use only and it is used per animal surgeon's instructions. Its performance characteristics were determined by [facility]'s Blayne Barrera [facility] [place] in a manner consistent with CLIA requirements. This test has not been cleared by the U.S. Food and Drug Administration. Performed By: #### V WFPN ####[address] [phone] Factor VIII:C Assay 165 % Normal 50-173 [facility] Comment on above: Performed By: #### V WFPN ####[facility] [address] [place], [place] [phone] FVIII/VWF Ratio 1.0 Normal >0.4 [facility] Comment on above: Performed By: #### V WFPN ####[facility] [place], [place] [phone] Interpretation(VW) (NOTE) Normal [facility] Comment on above: Result Comment: Perf [...] medication history. Performed By: #### V WFPN ####[address] [phone] Ristocetin Aggreg Normal dose response Normal [facility] Comment on above: Performed By: #### V WFPN ####[address] [phone] Ristocetin Co-Factor 150 % High 42-146 [facility] Comment on above: Performed By: #### V WFPN ####[address] [phone] Ristocetin/VWF Ratio 0.9 Normal >0.4 [facility] Comment on above: Performed By: #### V WFPN ####[address] [phone] von Willebrand Ag 159 % Normal 50-173 [facility] Comment on above: Performed By: #### V WFPN ####[address] [phone] von Willebrand Mult Normal multimer amou nt and pattern. Normal [facility] Comment on above: Result Comment: Revi ewed by Joleen Shore M.D.,Ph.D ([id number])This test was developed and its performance characteristics determined by [facility]'s Blayne Bruce [facility] [place] ([facility]).It has not been cleared or approved by the FDA. -[place] is regulated under CLIA as qualified to perform high-complexity testing.This test is used for clinical purposes. It should not be regarded as investigational or for research. Performed By: #### V WFPN ####[address] [phone] CNOVon 09-25-2017 CNOV Office Visit (CARDFT) -------GLADIS MICHAEL ([id number]) 1975 FDate Time Provider Department09/25/17 10:30 AM JESUS CHEATHAM During your visit today, we recorded the following information about you: Pulse Respiration Blood pressure Weight 68/minute 18/minute 139/78 108 kg Height 1.575 Rishi Cheatham MD 09/25/2017 10:54 AM [facility] Department of Cardiovascular MedicineOUTPATIENT VISIT DATE 09/25/16OUTPATIENT VISIT TYPEESTABLFORMERLY [facility] PH[facility]IAN:Joseph Harris DO[address] [facility] [address]Hlsil: [phone]: [phone] COMPLAINT:Patient presents with:Follow UpHISTORY OF PRESENT ILLNESS:Gladis Michael is a 41 year old female with a past cardiac history ofpalpitations, hypertensive episodes associated with flushing.05/22/2017The patient presents today as a new consult. The patient has previously beencared for by a drying tunnel operator in [place]. She has been on pindolol [...] years. She had a complete workup [facility] including a cardiac CTA, pharmacologic stress, echo and monitors. Unfortunately I do not have any of those records to review. The patient wasseen in the emergency room earlier today for epistaxis. She also was seen int emergency room in [place] last Friday with a complaint of dizziness. [...] kg (238 lb) SpO2 100% BMI 43.53 kg/d9Imjfcyq: Well appearing, in no acute distress.Eyes: Conjunctiva [...] provided to the requesting physician by [facility] medical [facility] or to the requesting physician via U.S. Mail.This document was generated utilizing [employer]. I have reviewed andverified that the contents of the document are accurate with the exception ofminor grammatical, spelling and punctuation errors.CONTACT INFORMATION:Thank you for allowing us to participate in the care of this very pleasantpatient. Please free to contact us if we can be of any further assistance.Jesus Cheatham MD, [facility] and [facility]Cl[facility] Hospitalment of Cardiovascular MedicineAvenir [facility]al [facility] and [facility] Institute[address] [address]Iiuprf: [phone] Referring Provider: JOSEPH HARRIS [[id number]]Allergies As of Date: 09/25/2017 Noted Allergy ReactionTOPROL XL (METOPROLOL) 04/11/2016 14 - Other: See Comments Comments: heart races per patientDate Reviewed: 09/25/2017Reviewed by: Jesus Cheatham - Fully AssessedReason for Visit: Follow Up [171]Primary Visit Diagnosis:Essential hypertension [I10] Other Visit Diagnoses:Premature atrial complexes [I49.1] PVC (premature ventricular contraction) [I49.3] Obesity, Class III, BMI 40-49.9 (morbid obesity) ([facility]) [E66.01]Order(s):lisinopril (ZESTRIL, PRINIVIL) 5 mg [...] RN 09/25/2017 10:15 AM >> JEROME BYRNES [facility] Sep 25, 2017 10:15 AM Received from: External Pharmacy >> Shane Velasquez RN 09/25/2017 10:16 AM >> JEROME BYRNES [facility] Sep 25, 2017 10:16 AMProblem List [...] Status:Closed by NANI CHEATHAM MD on 09/25/17 [facility] PROGRESSon 09-25-2017 PROGRESS HNO ID: [id number] thor: Jesus Petersonervice: (none)Author Type: PhysicianType: Progress NotesFiled: 09/25/2017 10:54 AMNote Text:[facility] Department of Cardiovascular MedicineOUTPATIENT VISIT DATE 09/25/16OUTPATIENT VISIT TYPEESTABLFORMERLY [facility]ITALPR[facility] PHYSICIAN:Joseph Harris, DO[address] [place] [address]Uwahl: [phone]: [phone] COMPLAINT:Patient presents with:Follow UpHISTORY OF PRESENT ILLNESS:Gladis Michael is a 41 year old female with a past cardiac history ofpalpitations, hypertensive episodes associated with flushing.05/22/2017The patient presents today as a new consult. The patient has previouslybeen cared for by a drying tunnel operator in [place]. She has been on pindolol andlisinopril for many years. She apparently did not tolerate metoprolol inthe past. She claims that metoprolol made her heart rate go into [id number]. The patient states that she has episodes off and on of a flushedfeeling followed by high blood pressure readings and dizziness. She alsofeels her heart racing. She feels this has been worse over the past 2weeks. She has had episodes like this though for many years. [facility] a cardiac CTA,pharmacologic stress, echo and monitors. Unfortunately I do not have anyof those records to review. The patient was seen in the emergency roomearer today for epistaxis. [place] of [place]. Her workup wasnegative. There was no evidence of any arrhythmia during her workup hereat this emergency room today. Her blood tests were within normal limits.Her troponin was normal. EKG was unremarkable. The patient admits thatshe gets very anxious. She has had problems with this for some time. [facility] started her on Zoloft. [...] kg (238 lb) SpO2 100% BMI 43.53 kg/b5Vvvtpvy: Well appearing, in no acute distress.Eyes: Conjunctiva [...] via U.S. Mail.This document was generated utilizing Ichor Therapeuticsation. I have reviewedand verified that the contents of the document are accurate with theexception of minor grammatical, spelling and punctuation errors.CONTACT INFORMATION:Thank you for allowing us to participate in the care of this very pleasantpatient. Please free to contact us if we can be of any furtherassistance.Jesus Cheatham MD, [facility]ABETH HOSPITALCRluis antonio and Mary MurrayDepartment of Cardiovascular MedicineAvenir Behavioral Health [facility] and Vascular Institute[address] [address]Xcsnxh: [phone] Normal [facility] CT-CT Head or Brain w/o Cont rast IMPORTon 09-23-2017 CT-CT Head or Brain w/o Contrast IMPORT Images were obtained outside of [facility] [id number] Normal [facility] CNOVSPon 06-05-2017 CNOVSP Visit (SP) Office (VEE) -------GLADIS MICHAEL ([id number]) 1975 [facility] Time Provider Kcjxiazkyl66/28/17 3:15 PM ISAAC SHELTON During your visit today, we recorded the following information about you: Temperature Respiration Blood pressure Weight 98.7 degrees 18/minute 168/82 105.1 kg Height 1.6 Marycarmenvalorie Husain DO Cat 06/07/2017 12:55 AM SignedPATIENT NAME: Gladis ElderRN: [id number] PHYSICIAN: Joseph Harris, [address] [place] [address]KQBVBWD CARE PHYSICIAN: Joseph Harris DOOTHER PHYSICIANS:CHIEF COMPLAINT: [...] r nose and throat evaluation likely from [facility] [place] physician . We will continue to monitor [...] for5 days straight. Went to ER 02/26. Crittenden was negative, strep negative. Flunegative. She was [...] racing heart and elevated BP.She previously saw drying tunnel operator in [place].She is scheduled for echo. She has valvular issues [place]. Cough, sore throat [...] plan. I answered allquestions satisfactorily..Hai Shelton D.O.Medical OncologistRising Sun, [place]Referring Provider: ISAAC SHELTON [[id number]]Allergies As of Date: 06/05/2017 Noted Allergy ReactionTOPROL XL (METOPROLOL) 04/11/2016 14 - Other: See Comments Comments: heart races per patientDate Reviewed: 06/05/2017Reviewed by: Donna Stahl - Fully AssessedReason for Visit: Lymphocytosis [Other] Cmt: 5 week follow upPrimary Visit Diagnosis:Lymphocytosis [D72.820] Other Visit Diagnosis:Cervical adenopathy [R59.0]Order(s):HIV 1,2 COMBO (AG/AB) [SQHIV12] Order #: [id number] FUTUREDisposition: Return in about 1 year (around 06/05/2018), or cancel ENT f/u in [place]..Follow-up and Disposition History RecordedPrescriptions as of 06/05/2017 [...] by ISAAC SHELTON DO on 06/07/17 Normal [facility] HIV 12 Combo (Ag/Ab)on 06-05 HIV 12 Ag/Ab Non Reactive Normal Non Reactive [facility] Comment on above: Result Comment: (NOT E)HIV Information: [place] Rev. Code 3701.243(E):This information has been disclosed [...] or diagnoses. Performed By: #### H IV12C ####[facility] [address] [place], [place] [phone] PROGRESSon 06-05-2017 PROGRESS HNO ID: [id number] thor: Isaac Carrasco: (none)Author Type: PhysicianType: Progress NotesFiled: 06/07/2017 12:55 AMNote Text:PATIENT NAME: Gladis ElderRN: [id number] PHYSICIAN: Joseph Harris DO[address] [place] [address]RIUIRVM CARE PHYSICIAN: MASOOD Rubin PHYSICIANS:CHIEF COMPLAINT: Lymphocytosis [...] and throat evaluation likely from clinic [place] physicianDr. HERNANDEZ. We will continue to monitor [...] for5 days straight. Went to ER 02/26. Crittenden was negative, strep negative.Flu negative. She was [...] and racing heart and elevatedBP.She previously saw drying tunnel operator in [place].She is scheduled for echo. She has valvular issues and was getting themyearly [place] to moving here. Cough, sore throat [...] plan.I answered all questions satisfactorily..Hai Shelton D.O.Medical OncologistDayton General Hospital Cancer [facility] Remote Abs Gran + CBC (for F HC use only)on 06-05-2017 Absol Gran Count 10.28 k/uL High 1.45-7.50 [facility] Erythrocyte distribution width Auto Ratio (RBC) 13.9 % Normal 11.5-15.0 [facility] Erythrocytes (RBC) 4.91 10*6/uL Normal 3.90-5.20 [facility] Hematocrit (HCT) 39.7 % Normal 36.0-46.0 [facility] Hemoglobin mass conc (Bld) 13.2 g/dL Normal 11.5-15.5 [facility] MCH 26.9 pG Normal 26.0-34.0 [facility] MCHC mass conc (RBC) 33.2 g/dL Normal 30.5-36.0 [facility] MCV 80.9 fL Normal 80.0-100.0 [facility] Platelet mean volume (PMV) 9.5 fL Normal 9.0-12.7 [facility] Platelets 497 10*3/uL High 150-400 [facility] WBC (Leukocytes) 14.20 10*3/uL High 3.70-11.00 [facility] CNOVon 05-22-2017 CNOV Office Visit (CRISTINA) -------GLADIS MICHAEL ([id number]) 1975 FDate Time Provider Cgqadomwod18/14/17 2:00 PM JESUS CHEATHAM During your visit today, we recorded the following information about you: Pulse Respiration Blood pressure Weight 69/minute 18/minute 139/77 101.6 kg Height 1.6 Rishi Cheatham MD 05/22/2017 3:15 PM [facility] and Vascular InstituteHorace and Mary Murray Department of Cardiovascular MedicineOUTPATIENT VISIT DATE 05/22/17OUTPATIENT VISIT TYPENEWPRATRIUM HEALTH UNION WESTRY CARE PHYSICIAN:Joseph Harris, DO[address] [place] [address]Kjjeg: [phone]: [phone] COMPLAINT:Patient presents with:PalpitationsHISTORY OF PRESENT ILLNESS:Gladis Michael is a 41 year old female with a past cardiac history ofpalpitations, hypertensive episodes associated with flushing.The patient presents today as a new consult. The patient has previously beencared for by a drying tunnel operator in [place]. She has been on pindolol andlisinopril for many years. [facility] She claims that metoprolol made her [...] years. She had a complete workup in [facility] including a cardiac CTA, pharmacologic stress, echo and monitors. Unfortunately I do not have any of those records to review. The patient wasseen in the emergency room earlier today for epistaxis. She also was seen int emergency room in [place] last Friday with a complaint of dizziness. [...] kg (224 lb) SpO2 98% BMI 39.68 kg/r2Sfdgnnu: Well appearing, in no acute distress.Eyes: Conjunctiva [...] via U.S. Mail.This document was generated utilizing MitrAssist dictation. I have reviewed andverified that the contents of the document are accurate with the exception ofminor grammatical, spelling and punctuation errors.CONTACT INFORMATION:Thank you for allowing us to participate in the care of this very pleasantpatient. Please free to contact us if we can be of any further assistance.Jesus Cheatham MD, FACCRobert and Mary MurrayDepartment of Cardiovascular MedicineKettering Health Troyrt and Vascular Institute[address] [address]Euglqc: [phone] Referring Provider: ISAAC SHELTON [[id number]]Allergies As of Date: 05/22/2017 Noted Allergy ReactionTOPROL XL (METOPROLOL) 04/11/2016 14 - Other: See Comments Comments: heart races per patientDate Reviewed: 05/22/2017Reviewed by: Jesus Cheatham - Fully AssessedReason for Visit: Palpitations [79]Primary Visit Diagnosis:Premature atrial complexes [I49.1] Other Visit Diagnoses:PVC (premature ventricular contraction) [I49.3] Palpitations [R00.2] Non-rheumatic mitral regurgitation, mild [I34.0]Order(s):ECHO [[id number]] Order #: [id number]: 1 FUTUREPrescriptions as of 05/22/2017 Sig: PINDOLOL [...] Status:Closed by NANI CHEATHAM MD on 05/22/17 [facility] PROGRESSon 05-22-2017 PROGRESS HNO ID: [id number] thor: Jesus Petersonervice: (none)Author Type: PhysicianType: Progress NotesFiled: 05/22/2017 3:15 PMNote Text:Heart and Vascular InstituteHorace and Mary Lowformerly [facility] Department of Cardiovascular MedicineOUTPATIENT VISIT DATE 05/22/17OUTPATIENT VISIT TYPENEWPRIMARY CARE PHYSICIAN:Joseph Harris, DO[address] [facility] [address]Drrdb: [phone]: [phone] COMPLAINT:Patient presents with:PalpitationsHISTORY OF PRESENT ILLNESS:Gladis Michael is a 41 year old female with a past cardiac history ofpalpitations, hypertensive episodes associated with flushing.The patient presents today as a new consult. The patient has previouslybeen cared for by a drying tunnel operator in [place]. She has been on pindolol andlisinopril for many years. She apparently did not tolerate metoprolol inthe past. She claims that metoprolol made her heart rate go into moo407k. The patient states that she has episodes off and on of a flushedfeeling followed by high blood pressure readings and dizziness. She alsofeels her heart racing. She feels this has been worse over the past 2weeks. She has had episodes like this though for many years. [facility] a cardiac CTA,pharmacologic stress, echo and monitors. Unfortunately I do not have anyof those records to review. [facility]. [place] of [place]. Her workup wasnegative. There was no evidence of any arrhythmia during her workup hereat this emergency room today. Her blood tests were within normal limits.Her troponin was normal. EKG was unremarkable. The patient admits thatshe gets very anxious. She has had problems with this for some time. [facility] her [facility] Zoloft. She [...] kg (224 lb) SpO2 98% BMI 39.68 kg/j5Jrbwsip: Well appearing, in no acute distress.Eyes: Conjunctiva [...] physicianvia U.S. Mail.This document was generated utilizing Ichor Therapeuticsation. I have reviewedand verified that the contents of the document are accurate with theexception of minor grammatical, spelling and punctuation errors.CONTACT INFORMATION:Thank you for allowing us to participate in the care of this very pleasantpatient. Please free to contact us if we can be of any furtherassistance.Jesus Cheatham MD, [facility] and Mary MurrayDepartment of Cardiovascular MedicineKettering Health Troyrt and Vascular Institute[address] [address]Byndco: [phone] [facility] CompanyOVSPon 04-28-2017 OVS Visit (SP) Office (HEMASA) -------GLADIS MICHAEL ([id number]) 1975 [facility] Time Provider Tnaiseksjj89/20/17 11:15 AM ISAAC SHELTON During your visit today, we recorded the following information about you: Temperature Pulse Respiration Blood pressure 98.7 degrees 71/minute 18/minute 151/101 Weight Height 103.2 kg 1.6 Kassidy Shelton DO 05/03/2017 3:18 PM SignedPATIENT NAME: Gladis ElderRN: [id number] PHYSICIAN: Joseph Harris DO[address] [place] [address]WUMXYHM CARE PHYSICIAN: MASOOD Rubin PHYSICIANS:CHIEF COMPLAINT: Lymphocytosis [...] for5 days straight. Went to ER 02/26. Crittenden was negative, strep negative. Flunegative. She was [...] I answered all questions satisfactorily..Hai Shelton D.O.Medical OncologistDayton General Hospital Cancer [place], [place]Referring Provider: ISAAC SHELTON [[id number]]Allergies As of Date: 04/28/2017 Noted Allergy ReactionTOPROL XL (METOPROLOL) 04/11/2016 14 - Other: See Comments Comments: heart races per patientDate Reviewed: 04/28/2017Reviewed by: Josephine Moscoso - Fully AssessedReason for Visit: Lymphocytosis [Other] Cmt: 3 week follow upPrimary Visit Diagnosis:Lymphocytosis [D72.820]Order(s):CT CHEST WO IVCON [[id number]] Order #: [id number] FUTURE CT CHEST W IVCON [[id number]] Order #: [id number] FUTURE iv contrast (radiology procedure)CT Chest W [...] [address] CT NECK SOFT TISSUE W IVCON [[id number]] Order #: [id number] FUTURE [] iv contrast (radiology procedure)Inject 1 [...] by ISAAC SHELTON DO on 05/03/17 Normal [facility] PROGRESSon 04-28-2017 PROGRESS HNO ID: [id number] thor: Isaac SheltonService: (none)Author Type: PhysicianType: Progress NotesFiled: 05/03/2017 3:18 PMNote Text:PATIENT NAME: Gladis PatelFlorianRN: [id number] PHYSICIAN: Joseph Harris DO[address] [place] [address]DCNXSWL CARE PHYSICIAN: Joseph Harris DOOTHER PHYSICIANS:CHIEF COMPLAINT: [...] for5 days straight. Went to ER 02/26. Crittenden was negative, strep negative.Flu negative. She was [...] I answered all questions satisfactorily..Hai Shelton D.O.Medical OncologistRising Sun, [place] Normal [facility] Remote Abs Gran + CBC (for F HC use only)on 04-28-2017 Absol Gran Count 7.86 k/uL High 1.45-7.50 [facility] Erythrocyte distribution width Auto Ratio (RBC) 13.9 % Normal 11.5-15.0 [facility] Erythrocytes (RBC) 4.82 10*6/uL Normal 3.90-5.20 [facility] Hematocrit (HCT) 39.2 % Normal 36.0-46.0 [facility] Hemoglobin mass conc (Bld) 13.3 g/dL Normal 11.5-15.5 [facility] MCH 27.6 pG Normal 26.0-34.0 [facility] MCHC mass conc (RBC) 33.9 g/dL Normal 30.5-36.0 [facility] MCV 81.3 fL Normal 80.0-100.0 [facility] Platelet mean volume (PMV) 9.4 fL Normal 9.0-12.7 [facility] Platelets 470 10*3/uL High 150-400 [facility] WBC (Leukocytes) 11.76 10*3/uL High 3.70-11.00 [facility] CNOVon 04-10-2017 CNOV Office Visit (OTOLMN) -------GLADIS MICHAEL ([id number]) 1975 [facility] Time Provider Rpphlrsqwf94/2/17 10:00 AM CANDIS HERNANDEZ OTOLMN During your visit today, we recorded the following information about you: Blood pressure Weight Height 142/85 97.5 kg 1.6 Akila Joshi Ma 04/10/2017 10:01 AM SignedTobacco Use: Compellon smoking cessation packet given? N/A - Patient [...] further evaluated viaultrasound if clinically indicated.LabsCBCRecent Labs 04/07/758295SCL 13.32*HB 13.4HCT 40.2PLT 470*BMPInvalid input(s): PHOSCOAGsPHYSICAL EXAM:Vitals - BP 142/85 (BP Site: Left Arm, BP Position: Sitting, BP Cuff Size:Extra Large Adult) Ht 160 cm (5' 3ANDquot;) Wt 97.5 kg (215 lb) SpO2 98% BMI 38.09 kg/h2Oifotztarlnkqx - General Appearance: well developed, well nourished, [...] 1 Each; Refill: 0SIGNATURE: Candis Hernandez, MDPAGER: [id number] of SERVICE: April 16, 2017TIME of SERVICE: [...] disease) [K21.9]Order(s):POLYSOMNOGR AM (PSG)/HOME SLEEP TEST (HST) [[id number]] Order #: [id number] FUTURE omeprazole (PRILOSEC) 20 mg capsuleTake 1 capsule by mouth once daily for 30 days.Disp: 30 capsuleRfl: 0 CT NECK SOFT TISSUE W IVCON [[id number]] Order #: [id number] FUTURE [] iv contrast (radiology procedure)Inject 1 [...] 10, 2017 10:01 AM Status: SignedTobacco Use: Compellon smoking cessation packet given? N/A - Patient [...] guidelines link.Follow-up and Disposition History RecordedEncounter Number: [id number] Status:Closed by CANDIS HERNANDEZ MD on 04/16/17 Normal [facility] PROGRESSon 04-10-2017 PROGRESS HNO ID: [id number] thor: Candis Salinas: (none)Author Type: PhysicianType: Progress NotesFiled: 04/16/2017 1:04 PMNote Text:Gladis [id number] 2016Oto-HNS ConsultationReferring Physician: Dr. Isaac Winston for [...] kg (215 lb) SpO2 98% BMI 38.09 kg/t9Aphpfnxaaiboqv - General Appearance: well developed, well nourished, [...] Dispense: 1Each; Refill: 0SIGNATURE: Candis Hernandez, MDPAGER: [id number] of SERVICE: April 16, 2017TIME of SERVICE: 1:01 PM Normal [facility] CNOVSPon 04-07-2017 CNOVSP Visit (SP) Office (HEMASA) -------NETTIE MICHAELZAMOISES Daniels ([id number]) 1975 FDate Time Provider Qobihfmgnd71/30/17 1:45 PM ISAAC SHELTON During your visit today, we recorded the following information about you: Temperature Pulse Respiration Blood pressure 98.5 degrees 75/minute 18/minute 156/106 Weight Height 102.2 kg 1.6 mTvalorie Shelton DO 04/11/2017 10:43 AM SignedPATIENT NAME: Gladis PatelarMRN: [id number] PHYSICIAN: MICHAEL [address] [place] [address]EDWOLZN CARE PHYSICIAN: MASOOD Rubin PHYSICIANS:CHIEF COMPLAINT: Lymphocytosis [...] on 04/07/17. Return in about 2 weeks (npndxe1604/21/2017), or f/u 2 wks.. HPI: This is [...] for5 days straight. Went to ER 02/26. Crittenden was negative, strep negative. Flunegative. She was [...] I answered all questions satisfactorily..Hai Shelton D.O.Medical OncologistDayton General Hospital Cancer [place], [place]Referring Provider: ISAAC SHELTON [[id number]]Allergies As of Date: 04/07/2017 Noted Allergy ReactionTOPROL [...] by ISAAC SHELTON DO on 04/11/17 Normal [facility] LDon 04-07-2017 LD 212 U/L Normal 135-214 [facility] Comment on above: Performed By: #### L D6 ####[facility] [address] [place], [place] [phone] PROGRESSon 04-07-2017 PROGRESS HNO ID: [id number] thor: Isaac SheltonSer: (none)Author Type: PhysicianType: Progress NotesFiled: 04/11/2017 10:43 AMNote Text:PATIENT NAME: Gladis PatelarMRN: [id number] PHYSICIAN: Joseph Harris DO[address] [facility] [address]LNGDGXX CARE PHYSICIAN: Joseph Harris DOOTHER PHYSICIANS:CHIEF COMPLAINT: [...] for5 days straight. Went to ER 02/26. Crittenden was negative, strep negative.Flu negative. She was [...] I answered all questions satisfactorily..Hai Shelton D.O.Medical OncologistDayton General Hospital Cancer [facility] CNCOon 03-27-2017 CNCO Letter TextNort[address] [address]Fjtgj: [phone]: [facility] [place], [place] [address]Xjigh: [phone]: [place] [address] [place], [place] [address]Xwabl: [phone]: Toll Free: [phone] [email or web address] cer Saad Arredondo M.D., Carlos Gleason M.D.Luiz Berrios M.D.Isaac Shelton D.O..Audrey Jang M.D. FACROSaju A. Rajan, M.D.March 27, 2017Nettie[address] Michael[address] [facility] [address]Cppq Ms. Michael,You missed your scheduled appointment on 03/27/17. Please call our officeto reschedule. If you need to cancel any future appointments, please call togive us 24 hour notice so that we can offer your appointment to anotherpatient.Sincerely,Tulio Au M.D. [facility] CT ABD/PEL W IVCONon 017 CT ABD/PEL W IVCON * * *Final Report* * *DATE OF EXAM: Mar 19 2017 9:29AM [facility] 0530 - CT ABD/PEL W IVCON / [...] any questions regarding this interpretation, please call [phone].If you are unable to reach us at the number above,please feel free to contact [facility] eRadiology at [phone]_ IDCSIACN Normal [facility] CT CHEST W IVCONon 7 CT CHEST W IVCON * * *Final Report* * *DATE OF EXAM: Mar 19 2017 9:29AM [facility] 0539 - CT CHEST W IVCON / [...] any questions regarding this interpretation, please call [phone].If you are unable to reach us at the number above,please feel free to contact [facility] eRadiology at [phone]_ IDCSIACN Normal [facility] CT NECK SOFT TISSUE W IVCONo n 03-19-2017 CT NECK SOFT TISSUE W IVCON * * *Final Report* * *DATE OF EXAM: Mar 19 2017 9:28AM [facility] 0013 - CT NECK SOFT TISSUE W [...] parapharyngeal space: Fat and muscle planes are normal.Timekeeper Supervisor space: Visualized mandible, muscles of mastication, pterygopalatine [...] any questions regarding this interpretation, please call [phone].If you are unable to reach us at the number above,please feel free to contact [facility] eRadiology at [phone]_ IDCSIACN Normal [facility] PROGRESSon 10-11-2017 PROGRESS HNO ID: [id number] thor: Sheri Banegas mtService: (none)Author Type: (none)Type: Progress NotesFiled: 03/19/2017 9:32 AMNote Text: RADIOLOGY SERVICE PROGRESS NOTESERVICE DATE: 03/19/2017SERVICE TIME: 8:33 AMPATIENT IDENTITY VERIFICATION COMPLETED USING TWO (2) METHODS: Patientconfirmed name and Date of verbally.PATIENT GENDER DATA: .femaleALLERGIES: Reviewed and unchangedMEDICATIONS REVIEWED: Not applicablePATIENT RELEVANT IMPLANT DATA REVIEWED: Not ApplicableCREATININE:Creati nineDate Value Ref Range Qrvttv5803/14/2017 0.59 0.58 - 0.96 mg/dL Final04/11/2016 0.56 (L) 0.58 - 0.96 mg/dL Final eGFR-All Other RacesDate Value Ref Range Vdktdp7803/14/2017 >60 . FinalComment:eGFR (Estimated GFR) Units of [...] actual GFR. eGFR- AmericanDate Value Ref Range Xhiwpm9603/14/2017 >60 Final Reference range (age 0-9 years) [...] TIME: 906PATIENT DISCHARGED TO: Ambulatory patient, left [place] department area.A Diagnostic radioactive procedure has taken place, with no furtherprecautions necessary other than routine body substance precautions. Moreinformation regarding radiation safety can be found using this link:[email or web address]%20Protection% 20-%20Diagnostic%20Nuclear% 20Medicine%20Procedures.pdf SIGNATURE: Sheri Banegas [facility] PATIENT NAME: Gladis WaltersATE: March 19, 2017 : 8:33 AM PAGER/CONTACT #: Normal [facility] Comp Metabolic Panelon 03-14 Alanine aminotransferase (ALT) 25 U/L Normal 7-38 [facility] Comment on above: Performed By: #### R ETIC, HREMOP, CMP, TSH, KLFRS, MPASRM, SEPG ####[facility] [address] [place], [place] [phone] Albumin 4.5 g/dL Normal 3.9-4.9 [facility] Comment on above: Performed By: #### R ETIC, HREMOP, CMP, TSH, KLFRS, MPASRM, SEPG ####[facility] [address] AveCCanon City, [place] [phone] Alkaline phosphatase (ALP) 60 U/L Normal 32-117 [facility] Comment on above: Performed By: #### R ETIC, HREMOP, CMP, TSH, KLFRS, MPASRM, SEPG ####[facility] [address] AveCCanon City, [place] [phone] Anion gap 14 mmol/L Normal 9-18 [facility] Comment on above: Performed By: #### R ETIC, HREMOP, CMP, TSH, KLFRS, MPASRM, SEPG ####[facility] [place] [phone] Aspartate aminotransferase (AST) 18 U/L Normal 13-35 [facility] Comment on above: Performed By: #### R ETIC, HREMOP, CMP, TSH, KLFRS, MPASRM, SEPG ####[facility] [phone] Bilirubin (total) 0.7 mg/dL Normal 0.2-1.3 [facility] Comment on above: Performed By: #### R ETIC, HREMOP, CMP, TSH, KLFRS, MPASRM, SEPG ####[place] [address] [phone] Calcium 9.5 mg/dL Normal 8.5-10.2 [facility] Comment on above: Performed By: #### R ETIC, HREMOP, CMP, TSH, KLFRS, MPASRM, SEPG ####[place] [address]CT[address] [place] [phone] Chloride 97 mmol/L Normal 97-105 [facility] Comment on above: Performed By: #### R ETIC, HREMOP, CMP, TSH, KLFRS, MPASRM, SEPG ####[facility] AveClevelMarc [address]ille [phone] CO2 25 mmol/L Normal 22-30 [facility] Comment on above: Performed By: #### R ETIC, HREMOP, CMP, TSH, KLFRS, MPASRM, SEPG ####[place] [address] AveClevelMarc Ville [phone] Creatinine 0.59 mg/dL Normal 0.58-0.96 [facility] Comment on above: Performed By: #### R ETIC, HREMOP, CMP, TSH, KLFRS, MPASRM, SEPG ####[facility] AvSher[place], [place] [phone] eGFR (non-black) mL/min/{1.73_m2} Normal [facility] Comment on above: Result Comment: eGFR [...] ETIC, HREMOP, CMP, TSH, KLFRS, MPASRM, SEPG ####[facility], [place] [phone] Glucose mass conc 126 mg/dL High 74-99 [facility] Comment on above: Result Comment: The [place] Diabetes Association (ADA) provides guidance for cutoff [...] Standards of Medical Care in Diabetes 2016, [place] [employer] Association. Diabetes Care. 2016.39(Suppl 1). Performed By: #### R ETIC, HREMOP, CMP, TSH, KLFRS, MPASRM, SEPG ####[facility] [place], [place] [phone] Potassium molar conc 4.3 mmol/L Normal 3.7-5.1 [facility] Comment on above: Performed By: #### R ETIC, HREMOP, CMP, TSH, KLFRS, MPASRM, SEPG ####[place] [address] AveCCanon [place], [place] [phone] Protein 8.4 g/dL High 6.3-8.0 [facility] Comment on above: Performed By: #### R ETIC, HREMOP, CMP, TSH, KLFRS, MPASRM, SEPG ####[place] [address] [address] [place] [phone] Sodium 136 mmol/L Normal 136-144 [facility] Comment on above: Performed By: #### R ETIC, HREMOP, CMP, TSH, KLFRS, MPASRM, SEPG ####[place] [address] [address] [place] [phone] Urea nitrogen 10 mg/dL Normal 7-21 [facility] Comment on above: Performed By: #### R ETIC, HREMOP, CMP, TSH, KLFRS, MPASRM, SEPG ####[place] [address] [address] [place] [phone] Hepatitis Remote Panelon BSA (Body Surface Area) Negative Normal Negative [facility] Comment on above: Performed By: #### R ETIC, HREMOP, CMP, TSH, KLFRS, MPASRM, SEPG ####[place] [address] [address], [place] [phone] Hep B Core Ab,Total Negative Normal Negative [facility] Comment on above: Performed By: #### R ETIC, HREMOP, CMP, TSH, KLFRS, MPASRM, SEPG ####[place] [address] AveCCanon [place], [place] [phone] Hepatitis C Ab IA Negative Normal Negative [facility] Comment on above: Performed By: #### R ETIC, HREMOP, CMP, TSH, KLFRS, MPASRM, SEPG ####[facility], [place] [phone] HepB Surface Ab,Qual Negative Normal Negative [facility] Comment on above: Result Comment: NEGA TIVE Performed By: #### R ETIC, HREMOP, CMP, TSH, KLFRS, MPASRM, SEPG ####[facility], [place] [phone] Delhi/Cope,Free,Seron 2016 K/L Ratio, Serum 1.99 High 0.26-1.65 [facility] Comment on above: Performed By: #### R ETIC, HREMOP, CMP, TSH, KLFRS, MPASRM, SEPG ####[facility], [place] [phone] Delhi, Free, Serum 32.8 mg/L High 3.30-19.40 [facility] Comment on above: Result Comment: Rare ly, increased serum free light chains values may not be detected due to antigen excess phenomenon. Results should always be correlated with other laboratory results and clinical findings. Performed By: #### R ETIC, HREMOP, CMP, TSH, KLFRS, MPASRM, SEPG ####[facility], [place] [phone] Lambda, Free, Serum 16.5 mg/L Normal 5.7-26.3 [facility] Comment on above: Result Comment: Rare ly, increased serum free light chains values may not be detected due to antigen excess phenomenon. Results should always be correlated with other laboratory results and clinical findings. Performed By: #### R ETIC, HREMOP, CMP, TSH, KLFRS, MPASRM, SEPG ####[facility], [place] [phone] Monoclonl Protein,Blon 03-14 MPA Parminder/Milner Ratio 2.08 Normal 1-3 [facility] Comment on above: Performed By: #### R ETIC, HREMOP, CMP, TSH, KLFRS, MPASRM, SEPG ####[facility] [address] AveClevelMarc [place] [phone] MPA Result No M protein is identified. Normal No M protein is identified. [facility] Comment on above: Performed By: #### R ETIC, HREMOP, CMP, TSH, KLFRS, MPASRM, SEPG ####[facility] Ave[address]hel[address] [place] [phone] MPA Serum IgA 173 mg/dL Normal 78-391 [facility] Comment on above: Performed By: #### R ETIC, HREMOP, CMP, TSH, KLFRS, MPASRM, SEPG ####[facility] [place] [phone] MPA Serum IgG 1650 mg/dL High 717-1411 [facility] Comment on above: Performed By: #### R ETIC, HREMOP, CMP, TSH, KLFRS, MPASRM, SEPG ####[phone] MPA Serum IgM 186 mg/dL Normal 53-334 [facility] Comment on above: Performed By: #### R ETIC, HREMOP, CMP, TSH, KLFRS, MPASRM, SEPG ####[facility] [place] [phone] Serum Delhi 1540 mg/dL High 534-1267 [facility] Comment on above: Performed By: #### R ETIC, HREMOP, CMP, TSH, KLFRS, MPASRM, SEPG ####[facility] [place] [phone] Serum Lambda 740 mg/dL High 253-653 [facility] Comment on above: Performed By: #### R ETIC, HREMOP, CMP, TSH, KLFRS, MPASRM, SEPG ####[facility] Ave[address] [place], [place] [phone] Staff Review Reviewed by Delores Means MD ([id number]) Normal [facility] Comment on above: Performed By: #### R ETIC, HREMOP, CMP, TSH, KLFRS, MPASRM, SEPG ####[facility] [place], [place] [phone] PB LG LEUK MARKERSon 017 PB LG LEUK MARKERS Account Credited Normal [facility] Comment on above: Result Comment: CANC HASMUKH PER STAFF REVIEW. FE [id number] available in [facility] under the Surgical Pathology Test listed in the Laboratory Tab. Performed By: #### L D6 ####[address] [phone] WBC (Leukocytes) 13.38 10*3/uL High 3.70-11.00 [facility] Comment on above: Performed By: #### L D6 ####[address] [phone] Protein Electrophor.on 03-14 Albumin 3.76 g/dL Normal 3.37-4.23 [facility] Comment on above: Performed By: #### L D6 ####[place] [address] [place], [place] [phone] Alpha 1 Globulin 0.19 gm/dL Normal 0.18-0.31 [facility] Comment on above: Performed By: #### L D6 ####[place] [address] [place], [place] [phone] Alpha 2 Globulin 0.90 gm/dL Normal 0.52-0.97 [facility] Comment on above: Performed By: #### L D6 ####[place] [address] [place], [place] [phone] Beta Globulin 1.15 gm/dL Normal 0.84-1.36 [facility] Comment on above: Performed By: #### L D6 ####[place] [phone] Gamma Globulin 1.80 gm/dL High 0.70-1.44 [facility] Comment on above: Performed By: #### L D6 ####[place] [phone] Interpretation SEE COMMENT Normal [facility] Comment on above: Result Comment: An a typical region of restricted mobility is identified on protein electrophoresis.The atypical region did not stain on accompanying immunofixation and therefore is unlikely to be a monoclonal immunoglobulin. Performed By: #### L D6 ####[place] [phone] M Protein Location N/A Normal [facility] Comment on above: Performed By: #### L D6 ####[place] [phone] M Ja Concentratn 0.00 gm/dL Normal 0.00 [facility] Comment on above: Performed By: #### L D6 ####[place] [phone] SPE Staff Review Reviewed by Delores Means MD ([id number]) Normal [facility] Comment on above: Performed By: #### L D6 ####[place] [phone] Total Protein, SPE 7.8 g/dL Normal 6.0-8.4 [facility] Comment on above: Performed By: #### L D6 ####[place] [phone] Remote CBCDIF (for [facility] use o nly)on 03-14-2017 Abs Baso 0.14 k/uL High 0.00-0.10 [facility] Abs Critt[place] 0.66 k/uL Normal 0.00-0.86 [facility] Abs Neut 10.25 k/uL High 1.45-7.50 [facility] Basophils/100 WBC Auto (Bld) 1.1 % Normal [facility] Eosinophils 0.08 10*3/uL Normal 0.00-0.45 [facility] Eosinophils/100 leukocytes 0.6 % Normal [facility] Erythrocyte distribution width Auto Ratio (RBC) 14.0 % Normal 11.5-15.0 [facility] Erythrocytes (RBC) 5.12 10*6/uL Normal 3.90-5.20 [facility] Hematocrit (HCT) 42.5 % Normal 36.0-46.0 [facility] Hemoglobin mass conc (Bld) 14.1 g/dL Normal 11.5-15.5 [facility] Lymphocytes 1.98 10*3/uL Normal 1.00-4.00 [facility] Lymphocytes/100 leukocytes 15.1 % Normal [facility] MCH 27.5 pG Normal 26.0-34.0 [facility] MCHC mass conc (RBC) 33.2 g/dL Normal 30.5-36.0 [facility] MCV 83.0 fL Normal 80.0-100.0 [facility] Monocytes/100 leukocytes 5.0 % Normal [facility] Neutrophils/100 WBC Auto (Bld) 78.2 % Normal [facility] Platelet mean volume (PMV) 9.6 fL Normal 9.0-12.7 [facility] Platelets 609 10*3/uL High 150-400 [facility] WBC (Leukocytes) 13.11 10*3/uL High 3.70-11.00 [facility] Reticulocyteon 03-14-2017 Abs Retic 0.073 M/uL Normal 0.0180-0.10 00 [facility] Comment on above: Performed By: #### R ETIC, HREMOP, CMP, TSH, KLFRS, MPASRM, SEPG ####[facility] [address] [place], [place] [phone] Retic% 1.4 % Normal 0.4-2.0 [facility] Comment on above: Performed By: #### R ETIC, HREMOP, CMP, TSH, KLFRS, MPASRM, SEPG ####[facility] [place], [place] [phone] TSHon 03-14-2017 Thyroid stimulating hormone (TSH) 0.537 uU/mL Normal 0.400-5.500 [facility] Comment on above: Result Comment: If t he patient is , TSH reference range varies by gestational period:First Trimester 0.100-2.500 uU/mLSecond Trimester 0.200-3.000 uU/mLThird Trimester 0.300-3.000 uU/mLReferences: 1. Sutton L, Delfina M, Anders MANDEL, et al. Management of Thyroid Dysfunction during and : An Endocrine Society Clinical Practice Guideline. J Clin Endocrinol Metab, 2012:97:8145-9232. 2. Conor ROSAS. Overview of thyroid disease in . UpToDate. 2016. Accessed on November 24, 2015. Performed By: #### R ETIC, HREMOP, CMP, TSH, KLFRS, MPASRM, SEPG ####[facility] [address] [place], [place] [phone] CNOVSPon 03-13-2017 CNOVS Visit (SP) Office ([place]) -------GLADIS MICHAEL ([id number]) 1975 FDate Time Provider Gqbjvptgsp80/5/17 10:00 AM ISAAC SHELTON During your visit today, we recorded the following information about you: Temperature Pulse Respiration Blood pressure 99 degrees 96/minute 18/minute 143/93 Weight Height 103.5 kg 1.6 Kassidy Shelton DO 03/14/2017 2:41 PM SignedPATIENT NAME: Gladis PatelarMRN: [id number] PHYSICIAN: Joseph Harris, [address] [place] [address]EETGEGZ CARE PHYSICIAN: MASOOD Rubin PHYSICIANS:CHIEF COMPLAINT: Lymphocytosis [...] COUNT-PROTEIN ELECTROPHORESIS W/INTERP-CBC + DIFF (FOR REMOTE [facility] USE)-KAPPA/COPE,FREE,SER-MO NOCLONAL PROT BLD W/INTERP-HEP REMOTE PANEL [...] three weeks now.Had few ER visits at [facility] last year for LUQ pain and had [...] for5 days straight. Went to ER 02/26. Crittenden was negative, strep negative. Flunegative. She was [...] I answered all questions satisfactorily..Hai Shelton D.O.Medical OncologistRising Sun, [place]Referring Provider: ISAAC SHELTON [[id number]]Allergies As of Date: 03/13/2017 Noted Allergy ReactionTOPROL XL (METOPROLOL) 04/11/2016 14 - Other: See Comments Comments: heart races per patientDate Reviewed: 03/13/2017Reviewed by: Merna Gudino - Fully AssessedReason for Visit: Lymphocytosis [Other] Cmt: follow upPrimary Visit Diagnosis:Lymphocytosis [D72.820]Order(s):CT ABD/PEL W IVCON [[id number]] Order #: [id number] FUTURE CT CHEST W IVCON [[id number]] Order #: [id number] FUTURE iv contrast (radiology procedure)CT Chest ABD/PEL-Inject, [...] [address] CT NECK SOFT TISSUE W IVCON [[id number]] Order #: [id number] FUTURE [] iv contrast (radiology procedure)Inject 1 [...] GRADE LEUK MARKERS FC [SQPBLGLY] Order #: [id number] FUTURE STAFF REVIEW WITH CBC AND DIFF [SQSTREV] Order #: [id number]. #:[id number] COMP METABOLIC PANEL [SQCMP] Order #: [id number] FUTURE TSH BLD [SQTSH] Order #: [id number] FUTURE RETIC COUNT [SQRETIC] Order #: [id number] FUTURE PROTEIN ELECTROPHORESIS W/INTERP [SQSEPG] Order #: [id number] FUTURE CBC + DIFF (FOR REMOTE [facility] USE) [SQRCBCDF] Order #: [id number] FUTURE KAPPA/COPE,FREE,SER [SQKLFRS] Order #: [id number] FUTURE MONOCLONAL PROT BLD W/INTERP [SQMPASRM] Order #: [id number] FUTURE HEP REMOTE PANEL BL [SQHREMOP] Order #: [id number] FUTUREPrescriptions as of 03/13/2017 Sig: PINDOLOL 5 [...] by ISAAC SHELTON DO on 03/14/17 Normal [facility] LDon 03-13-2017 LD 164 U/L Normal 135-214 [facility] Comment on above: Performed By: #### L D6 ####[facility] [address] [place], [place] [phone] PROGRESSon 03-13-2017 PROGRESS HNO ID: [id number] thor: Isaac Carrasco: (none)Author Type: PhysicianType: Progress NotesFiled: 03/14/2017 2:41 PMNote Text:PATIENT NAME: Gladis Daniels AmandaarMRN: [id number] PHYSICIAN: [place] [address]NMTWRXI CARE PHYSICIAN: Joseph Harris, MASOOD PHYSICIANS:CHIEF COMPLAINT: [...] COUNT-PROTEIN ELECTROPHORESIS W/INTERP-CBC + DIFF (FOR REMOTE [facility] USE)-KAPPA/COPE,FREE,SER-MO NOCLONAL PROT BLD W/INTERP-HEP REMOTE PANEL [...] three weeks now.Had few ER visits at [facility] last year for LUQ pain and had [...] for5 days straight. Went to ER 02/26. Crittenden was negative, strep negative.Flu negative. She was [...] I answered all questions satisfactorily..Hai Shelton D.O.Medical OncologistJohnson [facility] Medical Center Abs Gran + CBC (for [facility] use only)on 03-13-2017 Absol Gran Count 10.95 k/uL High 1.45-7.50 [facility] Erythrocyte distribution width Auto Ratio (RBC) 14.0 % Normal 11.5-15.0 [facility] Erythrocytes (RBC) 5.04 10*6/uL Normal 3.90-5.20 [facility] Hematocrit (HCT) 41.8 % Normal 36.0-46.0 [facility] Hemoglobin mass conc (Bld) 14.0 g/dL Normal 11.5-15.5 [facility] MCH 27.8 pG Normal 26.0-34.0 [facility] MCHC mass conc (RBC) 33.5 g/dL Normal 30.5-36.0 [facility] MCV 82.9 fL Normal 80.0-100.0 [facility] Platelet mean volume (PMV) 9.3 fL Normal 9.0-12.7 [facility] Platelets 592 10*3/uL High 150-400 [facility] WBC (Leukocytes) 14.22 10*3/uL High 3.70-11.00 [facility] Staff Rev w CBCDIFon 017 Abs Baso 0.20 k/uL High <0.11 [facility] Comment on above: Performed By: #### S PUMA ####[facility] [address], [place] [phone] Abs Crittenden 0.76 k/uL Normal <0.87 [facility] Comment on above: Performed By: #### S PUMA ####[facility] [address], [place] [phone] Abs Neut 11.19 k/uL High 1.45-7.50 [facility] Comment on above: Performed By: #### S PUMA ####[facility], [place] [phone] Basophils/100 WBC Auto (Bld) 1.4 % Normal [facility] Comment on above: Performed By: #### S PUMA ####[place] [address] AveCT[address] [place] [phone] Diff Comments SEE COMMENT Normal [facility] Comment on above: Result Comment: See Staff Review Performed By: #### S PUMA ####[place] [address] [address] [place] [phone] Eosinophils 0.09 10*3/uL Normal <0.46 [facility] Comment on above: Performed By: #### S PUMA ####[place] [address] [place] [phone] Eosinophils/100 leukocytes 0.6 % Normal [facility] Comment on above: Performed By: #### S PUMA ####[address] [place] [phone] Erythrocyte distribution width Auto Ratio (RBC) 13.6 % Normal 11.5-15.0 [facility] Comment on above: Performed By: #### S PUMA ####[place] [address] [address] [place] [phone] Erythrocytes (RBC) 5.19 10*6/uL Normal 3.90-5.20 [facility] Comment on above: Performed By: #### S PUMA ####[place] [address] [place] [phone] Hematocrit (HCT) 45.0 % Normal 36.0-46.0 [facility] Comment on above: Performed By: #### S PUMA ####[place] [address] [place] [phone] Hemoglobin mass conc (Bld) 14.1 g/dL Normal 11.5-15.5 [facility] Comment on above: Performed By: #### S PUMA ####[place] [address] [place] [phone] Lymphocytes 2.42 10*3/uL Normal 1.00-4.00 [facility] Comment on above: Performed By: #### S PUMA ####[address], [place] [phone] Lymphocytes/100 leukocytes 16.5 % Normal [facility] Comment on above: Performed By: #### S PUMA ####[address], [place] [phone] MCH 27.2 pG Normal 26.0-34.0 [facility] Comment on above: Performed By: #### S PUMA ####[place] [phone] MCHC mass conc (RBC) 31.3 g/dL Normal 30.5-36.0 [facility] Comment on above: Performed By: #### S PUMA ####[address]uz[address] [place] [phone] MCV 86.7 fL Normal 80.0-100.0 [facility] Comment on above: Performed By: #### S PUMA ####[place] [phone] Monocytes/100 leukocytes 5.2 % Normal [facility] Comment on above: Performed By: #### S PUMA ####[place] [phone] Neutrophils/100 WBC Auto (Bld) 76.3 % Normal [facility] Comment on above: Performed By: #### S PUMA ####[address] [phone] Pathologist (cervix/vaginal) Reviewed by Karon Levin DO ([id number]) Normal [facility] Comment on above: Performed By: #### S PUMA ####[address], [place] [phone] Platelet mean volume (PMV) 10.0 fL Normal 9.0-12.7 [facility] Comment on above: Performed By: #### S PUMA ####[place] [address] [place], [place] [phone] Platelets 622 10*3/uL High 150-400 [facility] Comment on above: Performed By: #### S PUMA ####[address] [phone] Red Cell Morph SEE COMMENT Normal [facility] Comment on above: Result Comment: Unre markable Performed By: #### S PUMA ####[address] [phone] Staff Review SEE COMMENT Normal [facility] Comment on above: Result Comment: Neut rophilic Leukocytosis Without Left ShiftThrombocytosis Performed By: #### S PUMA ####[address] [phone] WBC (Leukocytes) 14.66 10*3/uL High 3.70-11.00 [facility] Comment on above: Performed By: #### S PUMA ####[facility] [place] [address] [phone] CNOVSPon 02-06-2017 OVS Visit (SP) Office ([place]) -------GLADIS MICHAEL ([id number]) 1975 FDate Time Provider Department02/06/17 11:15 AM ISAAC SHELTON During your visit today, we recorded the following information about you: Temperature Pulse Respiration Blood pressure 98.6 degrees 66/minute 16/minute 161/102 Weight Height 108.6 kg 1.6 Kassidy Shelton DO 02/07/2017 12:59 AM SignedPATIENT NAME: Gladis ElderRN: [id number] PHYSICIAN: Joseph Harris DO[address] [place] [address]CCGKGSX CARE PHYSICIAN: MASOOD Rubin PHYSICIANS:CHIEF COMPLAINT: Lymphocytosis [...] three weeks now.Had few ER visits at [facility] last year for LUQ pain and had [...] I answered all questions satisfactorily..Hai Shelton D.O.Medical OncologistRising Sun, [place]Referring Provider: ISAAC SHELTON [[id number]]Allergies As of Date: 02/06/2017 Noted Allergy ReactionTOPROL XL (METOPROLOL) 04/11/2016 14 - Other: See Comments Comments: heart races per patientDate Reviewed: 02/06/2017Reviewed by: Richard Leon) Delong - Fully AssessedReason for Visit: Lymphocytosis [Other] Cmt: 9 month follow upReason For Visit History RecordedPrimary Visit Diagnosis:Lymphocytosis [D72.820]Order(s):JAK2 V617F MUTATION [SQJAK2] Order #: [id number] FUTUREDisposition: Return in about 6 months (around [...] by ISAAC SHELTON DO on 02/07/17 Normal [facility] JAK2 V617F Mutationon 2016 JAK2 V617F Interp Result: JAK2 V617F M utation Not Detected Normal [facility] Comment on above: Result Comment: Inte rpretation: The JAK2 V617F Mutation was not detected. The V617F point mutation has been reported in a high percentage of cases of polycythemia vera, approximately half of the cases of essential thrombocythemia and chronic idiopathic myelofibrosis, and in a smaller proportion of other myeloid disorders.(NOTE)Methodology:Following DNA extraction and library construction utilizing Signal Cancer Hotspot Panel v.1 ([employer], [place]), DNA sequencing of gene mutation hotspot regions was performed onthe MiSeq instrument ([employer], [place], [place]). Signal Vine software([employer], [place], [place]) was used to analyze FASTQ files [...] was developed and its performance characteristicsdetermined by [facility] [place] ([facility]). It has not been cleared orapproved by the FDA. -[place] is regulated under CLIA as qualified toperform high-complexity testing. This test is used for clinicalpurposes. It should not be regarded as investigational or forresearch.References:Gracy DA, Socrates Squires, Rene R, Roberto Carlos J, Borowitz MJ, Kesha Mccullough MM,et al. The 2016 revision to the World Health Organization (WHO)classification of myeloid neoplasms and acute leukemia. Kpqyg4286;127: 2391-405.Magdalene Squires, Jonah R, Adrian JW. Myeloproliferative neoplasms:contemporary diagnosis using histology and genetics. Funmi Rev ClinOncol 2009;6:627-37. Performed By: #### L D6, JAK2 ####[place] [address] [place], [place] [phone] JAK2 V617F Spec Type Peripheral Blood Normal [facility] Comment on above: Performed By: #### L D6, JAK2 ####[place] [address] [place], [place] [phone] Molecular Path Rev Reviewed by David Vo M.D., Ph.D ([id number]) Normal [facility] Comment on above: Performed By: #### L D6, JAK2 ####[facility] [place], [place] [phone] LDon 02-06-2017 LD 186 U/L Normal 135-214 [facility] Comment on above: Performed By: #### L D6, JAK2 ####[facility] [address] [place], [place] [phone] PROGRESSon 02-06-2017 PROGRESS HNO ID: [id number] thor: Isaac Carrasco: (none)Author Type: PhysicianType: Progress NotesFiled: 02/07/2017 12:59 AMNote Text:PATIENT NAME: Gladis DamianjavierarMRN: [id number] PHYSICIAN: MICHAEL Rubin[address] [place] [address]UBYOTBU CARE PHYSICIAN: MASOOD Rubin PHYSICIANS:CHIEF COMPLAINT: Lymphocytosis [...] three weeks now.Had few ER visits at [facility] last year for LUQ pain and had [...] I answered all questions satisfactorily..Hai Shelton D.O.Medical OncologistRising Sun, [place] Normal Community [facility] Remote [facility] Gran + CBC (for [facility] use only)on 02-06-2017 Absol Gran Count 10.53 k/uL High 1.45-7.50 [facility] Erythrocyte distribution width Auto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
== END 2024-10-20 08:46 | disposition home or self-care (01) ==
LOC: NM 08:46
PROVIDERS: PCP Nurse Practitioner Family
DX: R07.89 Other chest pain (principal)

== ENCOUNTER 2025-04-13 08:22 | Outpatient (OUT) | payer BC, SELFPAY ==
--- OUTSIDE RECORDS SUMMARY | 2024-09-14 09:30 | XMS_ITS ---
Author Organization The [facility] in [place] Address [address] [place] [address] Care Team Providers Care [employer] Communications Sergeant Name Role Phone Kailyn Aguirre Primary Care Provider REASON FOR VISIT ear infection f/u Encounters Encounter Location Date Provider Diagnosis [facility] ([place], [place]) [address] [place] [address] 09/14/2024 Kailyn Aguirre Plan Of Treatment No Information Progress Notes * Gladis MICHAEL BDOB:10/1975 (49 yo F)Acc No.[id number]:09/14/2024 UNLOCKED PROGRESS NOTE Progress Note Patient: Altfa MONTEMAYORGladis HUBER :?Kailyn Aguirre CNP (TTC)DOB:1975 ???Age:49 Y???Sex:FemaleDate:09/14/2024Phone:[phone]:[address] [place] [address] Subjective: * Chief Complaints: * 1 . Ear infection f/u. * Medical History: Objective: * Vitals: Assessment: Plan: * Treatment: * * Electronic signature of Kailyn Aguirre NP, ASSOCIATE VETERINARIAN.SAW [id number] on 04/13/2025 at 08:30 AM ESTSign off status: PendingVisit Status:?N/S N/C (No Show/No Charge) * Provider: Luis Armando Aguirre CNP (TTC) Date: 0 09/14/2024 Generated for Printing/Faxing/eTransmitting on:?04/13/2025 08:30 AM EST
--- OUTSIDE RECORDS SUMMARY | 2025-03-23 03:30 | XMS_ITS ---
Author Organization [facility] in [place] Address [address] [place] [address] Care Team Providers Care Political Director Name Role Phone Kailyn Aguirre Primary Care Provider REASON FOR VISIT headache, sinus pressure Encounters Encounter Location Date Provider Diagnosis [facility] [address] [place] [address] 03/23/2025 Kailyn Aguirre Plan Of Treatment No Information Progress Notes * Gladis MICHAEL BDOB:10/1975 (49 yo F)Acc No.[id number]:03/23/2025 UNLOCKED PROGRESS NOTE Progress Note Patient: Altaf MONTEMAYORCECILE Gladis Frances :?Kailyn Aguirre (TTC), CNPDOB:1975 ???Age:49 Y???Sex:FemaleDate:03/23/2025Phone:[phone]:[address] [place] [phone] Subjective: * Chief Complaints: * 1 . Headache, sinus pressure. * Medical History: Objective: * Vitals: Assessment: Plan: * Treatment: * * Electronic signature of Kailyn Aguirre NP, TIPPLE GREASER.INTERNAL MEDICINE NURSE [id number] on 04/13/2025 at 08:30 AM ESTSign off status: PendingVisit Status:?N/S N/C (No Show/No Charge) * Provider: Luis Armando Aguirre CNP (TTC) Date: 1 Generated for Printing/Faxing/eTransmitting on:?04/13/2025 08:30 AM EST
--- OUTSIDE RECORDS SUMMARY | 2025-04-06 04:00 | XMS_ITS ---
Author Organization The [facility] in [place] Address [address] [place] [address] Care Team Providers Care Cut Off Sawyer Log Name Role Phone Kailyn Aguirre Primary Care Provider Allergies No Known Allergies REASON FOR VISIT Presents to office alone for 6 month check up, Having right wrist surgery on Apr [address] Vora at [facility], CSA updated, Has not been taking the potassium. Said she gets chest pain when she takes it Medications Medication SIG (Take, Route, Frequency, Duration) Notes Start Date End Date Status Sertraline HCl 50 MG 1 tablet Orally Once a day; Duration: 30 days ActivePotassium Chloride ER 10 MEQ1 tablet with food Orally Twice a day; Duration: 30 days12/29/2023Not-TakingLisinopril 20 MGTAKE 1 TABLET BY MOUTH TWICE A DAY FOR 90 DAYS; Duration: 90ActivePindolol 5 MGTAKE 2 TABLETS BY MOUTH TWICE A DAY; Duration: 90ActiveALPRAZolam 0.25 MG1 tablet prn Orally Twice a day; Duration: 10 days5ActiveChlorthalidone 25 MG1/2 Orally once daily Active Social History Tobacco Use: Social History Observation Description Date Details (start date - stop date) Former Smoker NA - NA Tobacco Use/Smoking Question Answer Notes Patient is a former smoker AUDIT-C (Standard) Question Answer Notes Did you have a drink containing alcohol in the p ast year? No Lggeua6TmzffkefrdedgvTlaqxjwm Problems Problem Type SNOMED Code ICD Code Onset Dates Problem Status W/U Status Risk Notes Problem Morbid obesity (699672947) Class 3 obesit y (E66.01) Activeconfirmed Vital Signs Weight 242.4 lbs 04/06/2025 Height 63 in 04/06/2025 Blood pressure systolic 124 mm Hg 04/06/20 25 Blood pressure diastolic 80 mm Hg 025 BMI 42.93 kg/m2 04/06/2025 Encounters Encounter Location Date Provider Diagnosis [facility] [address] [place] [address] 04/06/2025 Kailyn Aguirre Wellness examination Z00.00 ; Anxiety F41.9 and Class 3 obesity E66.01 Assessments Encounter Date Diagnosis (ICD Code) Assessment Notes Treatment Notes Treatment Clinical Notes Section Notes 04/06/2025 Wellness examination (ICD-10 - Z 00.00) ROS done exam done cologuard ordered recent pap, encouraged mammogram 04/06/2025nxiety (ICD-10 - F41.9) take sertraline daily, set alarm often missing doses 04/06/2025lass 3 obesity (ICD-10 - E66.01) may try mounjaro sample she has notify office if wants rx or needs another sample work on diet, increase activity Plan Of Treatment Medication Medication Name Sig Start Date Stop Date Notes ALPRAZolam 0.25 MG 1 tablet prn Orally Twice a d ay; Duration: 10 days 04/06/2025 Treatment Notes Assessment Notes Wellness examination ROS done exam done cologuard ordered recent pap, encouraged mammogram Anxiety take sertraline daily, set alarm often missing doses Class 3 obesity may try mounjaro sample she has notify office if wants rx or needs another sample work on diet, increase activity Pending Test Test Name Order Date HEMOGLOBIN A1C (GLYCO) 04/06/2025 IRON, TOTAL 04/06/2025 LIPID PANEL (CHOL/TRIG/HDL/LDL) 04/06/20 25 VITAMIN D, 25 LEVEL (TOTAL) 04/06/2025 Insulin Level 04/06/2025 THYROID PANEL (T4/TSH/FREE T3) CMP (COMP MET PERRIN) w/eGFR CKD-EPI 2024 CBC WITH DIFF 04/06/2025 Next Appt Details Follow Up: 6 Months,gal, Kaur son: Progress Notes * Gladis MICHAEL BDOB:10/1975 (49 yo F)Acc No.[id number]:04/06/2025 Progress Note Patient: Gladis CRUZ :?Kailyn Aguirre ([facility]), CNPDOB:1975 ???Age:49 Y???Sex:FemaleDate:04/06/2025Phone:[phone]:[address] [place], [place] [address], [phone] In:08:36 AM ESTCheck Out:09:11 AM EST Subjective: * Chief Complaints: * 1 . Presents to office alone for 6 month check up. 2. Having right wrist surgery on Apr [address] Vora at [facility]. 3. CSA updated. 4. Has not been taking the potassium. Said she gets chest pain when she takes it. * HPI: ???General:?yearly follow up with cardiology labs uses xanax when leaving town, helps daughter cheerleader in college son plumbing with dad working on diet, unable to lose did not try mounjaro. * ROS: ???General/Constitutional:?Anxiety?some.?Patient complaining of?unable to lose wt.?Fever?denies.?Headache?denies.?Weight loss?denies.?Ophthalmologic:?Discharge?denies.?Eye Pain?denies.?Itching and redness?denies.?ENT:?Nasal discharge?denies.?Nasal congestion?denies. Sore throat?denies.?Cardiovascular:?Chest tightness/ heavy pressure?denies.?Rapid heart rate?denies.?Swelling of extremities?denies.?Chest pain?denies.?Respiratory:?Productive cough?denies.?Chest pain?denies.?Cough?denies.?Shortness of breath?denies.?Wheezing?denies.?Gastrointestinal:?Abdominal pain?denies.?Constipation?denies.?Decreased appetite?denies.?Diarrhea?denies.?Nausea?denies.?Vomiting denies.?Genitourinary:?Urinary incontinence?denies.?Painful urination?denies.?Musculoskeletal:?Back pain?denies.?Neck pain?denies.?Muscle aches?denies.?Skin:?Rash?denies.?Skin lesion(s)?denies.? * Active Problem List R00.2 Palpitations Modified On:09/30/2022 Status:gjsqcqvjjF37.89Other chest pain Modified On:09/30/2022 Status:icphvvqntS90Nxjyaaiefkgm Modified On:09/30/2022 Status:yqcjhtkovU82.90Osteoarthritis Modified On:09/30/2022 Status:obzvmwezfP38.9Anxiety Modified On:07/09/2023 Status:rsfhplldrM70.572Ankle pain, left Modified On:09/30/2022 Status:jwimhyaomM51.00Angioma Modified On:09/30/2022 Status:mnbbdxfxmR43.1Tonsillar hypertrophy Modified On:09/30/2022 Status:hssdtokuzI93.6Pituitary cyst Modified On:09/30/2022 Status:julsrwlgcC01.41BMI 40.0-44.9, adult Modified On:09/30/2022 Status:qgehklebiB60.42History of ovarian cyst Modified On:09/30/2022 Status:rwahuvhomO91.6Back pain, thoracic Modified On:09/30/2022 Status:bufqgknpuO80.2Hand paresthesia, unspecified laterality Modified On:09/30/2022 Status:natawdwyyU07.9Headache, unspecified Modified On:09/30/2022 Status:bqjtmoozlY01.3Chronic cough Modified On:07/09/2023 Status:sbqlivtpdF70.9Leiomyoma of uterus, unspecified Modified On:12/11/2022 Status:pripjexyxB30.9Sinusitis Modified On:10/13/2023 Status:qpfcfabnwI05.2Loss of taste Modified On:05/31/2024 Status:wdugmffpqI51.0Loss of smell Modified On:05/31/2024 Status:eztpbnzpmY54.31Mass of wrist, right Modified On:03/11/2025 Status:trxekjvusO97.01Carpal tunnel syndrome of right wrist Modified On:03/11/2025 Status:iiwipwtmnW95.01Class 3 obesity Modified On:04/06/2025 Status:confirmed * Medical History: C hronic cough, Pharyngitis, Cough, unspecified type, Dysuria, Back pain, thoracic, Abdominal pain, LLQ, History of ovarian cyst, Wellness examination, Light headedness, Hand paresthesia, unspecified laterality, Eye tearing, Loss of sense of smell, Loss of taste, Ear pain, left, Osteoarthritis, Ankle pain, left, Headache, unspecified, Angioma, Sore throat, Acute sinusitis, Other chest pain, Urinary tract infection, Tonsillar hypertrophy, Pituitary cyst, BMI 40.0-44.9, adult, Palpitations, Anxiety, Hypertension. * Surgical History: C -section , gallbladder , ovarian cyst . * Hospitalization/Major Diagno stic Procedure: s ee above . * Family History: F ather: , lung ca, diagnosed with Cancer. M other: alive, blood cancer, diagnosed with Cancer. B rother(s): , brain, diagnosed with Cancer. S ister(s): alive. 3 brother(s) , 2 sister(s) . . * Social History: ???Tobacco Use:?Tobacco Use/Smoking?Patient is a?former smoker ???Drug/Alcohol:?AUDIT-C (Standard)?Did you have a drink containing alcohol in the past year??No ?Points?0 ?Interpretation?Negative * Medications: T aking ALPRAZolam 0.25 MG Tablet TAKE 1 TABLET BY MOUTH TWICE A DAY NEEDED FOR 5 DAYS 10 DAYS , Taking Chlorthalidone 25 MG Tablet 1/2 Orally once daily , Taking Lisinopril 20 MG Tablet TAKE 1 TABLET BY MOUTH TWICE A DAY FOR 90 DAYS , Taking Pindolol 5 MG Tablet TAKE 2 TABLETS BY MOUTH TWICE A DAY , Taking Sertraline HCl 50 MG Tablet 1 tablet Orally Once a day , Not-Taking/PRN Potassium Chloride ER 10 MEQ Tablet Extended Release 1 tablet with food Orally Twice a day , Medication List reviewed and reconciled with the patient * Allergies: N .K.D.A. Objective: * Vitals: W t:242.4lbs, Ht: 63 in, BP:124/80mm Hg, BMI:42.93Index, Ht-cm: 160.02 cm, Wt-k.95 kg. * Examination: ???General Examinations: ?GENERAL APPEARANCE:?alert and oriented, in no acute distress, obese.?EYES:?conjunctiva normal, sclera non-icteric.?EARS:?external auditory canals are patent. Tympanic membranes are pearly hurt and mobile.?NOSE:?normal external appearance.?LUNGS:?clear to auscultation bilaterally.?CARDIO:?regular rate and rhythm, S1, S2 normal.?ABDOMEN:?soft, nontender.?MUSCULOSKELETAL:?Gait and station normal.?SKIN:?warm and dry.? Assessment: * Assessment: 1.?Wellness examination - Z00.00 (Primary)???2.?Anxiety - F41.9???3.?Class 3 obesity - E66.01??? Plan: * Treatment: ?LAB: HEMOGLOBIN A1C (GLYCO) ?LAB: IRON, TOTAL ?LAB: LIPID PANEL (CHOL/TRIG/HDL/LDL) ?LAB: VITAMIN D, 25 LEVEL (TOTAL) ?LAB: Insulin Level ?LAB: THYROID PANEL (T4/TSH/FREE T3) ?LAB: CMP (COMP MET PERRIN) w/eGFR CKD-EPI ?LAB: CBC WITH DIFF Notes: ROS done exam done cologuard ordered recent pap, encouraged mammogram??2.?Anxiety? Refill ALPRAZolam Tablet, 0.25 MG, 1 tablet prn, Orally, Twice a day, 10 days, 20 Tablet, Refills 0.?? Notes: take sertraline daily, set alarm often missing doses??3.?Class 3 obesity? Notes: may try mounjaro sample she has notify office if wants rx or needs another sample work on diet, increase activity?? * Preventive Medicine: ??Screenings/Counseling:?BMI ACTION PLAN?Above Normal BMI Follow-up?Dietary management education, guidance, and counseling See treatment section of progress note for complete details of management plan. * Follow Up: 6 Months,prn * * ign off status: CompletedVisit Status:?CHK (Check Out) true * Provider: Luis Armando Aguirre ([facility])DIMITRY Date: Generated for Printing/Faxing/eTransmitting on:?04/13/2025 08:30 AM EST History and Physical Notes * HPI (History of Present Illness) CategorySub-CategoryDetailNotesCategory NotesGeneral yearly follow up with cardiology labs uses xanax when leaving town, helps daughter cheerleader in college son plumbing with dad working on diet, unable to lose did not try mounjaro Examination CategorySub-CategoryDetailNotesCategory NotesGeneral ExaminationsGENERAL APPEARANCE:alert and oriented, in no acute distress, obeseEYES:conjunctiva normal, sclera non-ictericEARS:external auditory canals are patent. Tympanic membranes are pearly hurt and mobileNOSE:normal external appearanceTHROAT: CARDIO:regular rate and rhythm, S1, S2 normalLUNGS:clear to auscultation bilaterallyABDOMEN:soft, nontenderSKIN:warm and dryBACK:MUSCULOSKELETAL:Gait and station normalLYARNOT OGDEN [facility] NODES:
--- OUTSIDE RECORDS SUMMARY | 2025-04-13 08:30 | XMS_ITS | Clinical Summary ---
Author Organization [facility] Address [address] [place] [address] Care Team Providers Care Mold Stamper And Repairer Name Role Phone Yinka Armstrong MD Primary Care Provider [phone] Allergies Active AllergyReactionsCriticalityNoted DateCommentsMetoprololPalpitations,Other ,HeicdpfItb42/03/2016 heart races per patient Medications MedicationSigDispense QuantityRefillsLast FilledStart DateEnd DateStatus lisinopril 20 MG tablet 1 (one) time each day at the same time.Active pindolol (Visken) 5 MG tablet every 12 (twelve) hours.Active sertraline (Zoloft) 50 MG tablet 1 (one) time each day at the same time.Active Active Problems ProblemNoted DateDiagnosed DateAbnormal uterine juhjtqwx99/26/2023hronic pain 3Generalized anxiety /26/2023Morbid akvgoxz3512/02/2022Ovarian cyst3Pain in limb3Pelvic and perineal pain12/02/2022 Family History Medical HistoryRelationNameCommentsNo Known ProblemsBrother 1(2)Brain cancer Brother 2No Known ProblemsDaughterLung cancerFatherNo Known ProblemsSister(2)No Known ProblemsSonRelationNameStatusCommentsBrother 1(2)Brother 2DeceasedDaughter AliveFatherDeceasedMotherAliveSister(2)SonAlive Social History Tobacco UseTypesPacks/DayYears UsedDateSmoking Tobacco: FormerCigarettes Smokeless Tobacco: Never Tobacco Cessation:Counseling Given: Not Answered Alcohol UseStandard Drinks/WeekCommentsNot Currently0 (1 standard drink = 0.6 oz pure alcohol)CommentsUnknownSex and Gender InformationValueDate Recorded Sex Assigned at BirthNot on fileLegal JslVrinjb34/15/2023 7:25 PM EDTGender IdentityNot on fileSexual OrientationNot on file Last Filed Vital Signs Vital SignReadingTime TakenCommentsBlood Gpfipuqw098/8403/06/2022 12:00 PM EST Pulse--Temperature--Respiratory Rate--Oxygen Saturation--Inhaled Oxygen Concentration--Feklnq955 kg (243 lb)08/05/2023 1:31 PM EKLZmlsud627 cm (5' 3 ) 08/05/2023 1:31 PM ESTBody Mass Index43.05008/05/2023 1:31 PM EST Plan of Treatment Health MaintenanceDue DateLast DoneCommentsCT Wcrausvqvsjk10/05/1976Colonoscopy 1975Colorectal Cancer Psnnehegi91/05/1976FIT-DNA1975FIT1975 FOBT1975 5750Llmvtjymzstid95/05/1976Pap Smear1996Cervical Cancer Uqegpbwrf08/05/2006HPV/Tmocav5906/13/20057292Mgqozsfwl06/05/2016COVID-19 Vaccine ( season)/, 09/21/2020, 08/31/2020Influenza Vaccine (#1)/, 03/09/2020, 03/16/2018, Additional history exists Pneumococcal Vaccine: Pediatrics (0 to 5 Years) and At-Risk Patients (6 to 64 Years)Aged OutNo longer eligible based on patient's age to complete this topic Insurance Care Teams Team MemberRelationshipSpecialtyStart DateEnd Yinka Armstrong MD PCP - GeneralFamily Wqtztjhv37/25/23
--- OUTSIDE RECORDS SUMMARY | 2025-04-13 08:31 | XMS_ITS | Patient Health Record ---
Author Organization [facility] in [place] Address [address] [place] [address] Care Team Providers Care Explosives Mixer Operator Name Role Phone Kailyn Aguirre Primary Care Provider [phone] Omari rAmstrong Jory [phone] Allergies No Known Allergies Results Component Value Reference Range Notes COVID-19, Flu A+B IH (Not ye t reviewed by provider) Interpretation: Performing Lab: Notes/Report: COVID neg FLU AnegFLU BnegControlpresentCBC AUTO DIFF Reviewed date:05/03/2024 03:38:30 PM Interpretation: Performing Lab: Notes/Report: [facility] ,White Blood Count13.54.0-11.0 10 3/uLRed Blood Count4.744.20-5.40 10 6/uL Ihsmovkqud06.312.0-16.0 g/lCEupvojgvra79.236.0-48.0 %Mean Corpuscular Hclxyd28.8 81.0-99.0 fLMean Corpuscular Dvvxkgiirz57.126.7-34.0 pgMean Corpuscular HGB Conc 33.129.9-35.2 g/dLRed Cell Distribution Width13.111.0-15.0 %Platelet Zbvlf080 150-450 10 3/uLMean Platelet Volume9.89.5-13.5 fLNeutrophils Percent Auto72.6 43.0-75.0 %Lymphocytes Percent Auto19.420.5-60.0 %Monocytes Percent Auto5.41.7- 12.0 %Eosinophils Percent Auto1.40.9-7.0 %Basophils Percent Auto0.90.2-2.0 % Immature Granulocytes Pct Auto0.30.0-0.5 %Neutrophils Absolute Auto9.81.4-6.5 10 3/uLLymphocytes Absolute Auto2.61.2-3.8 10 3/uLMonocytes Absolute Auto0.70.3-0.8 10 3/uLEosinophils Absolute Auto0.20.0-0.7 10 3/uLBasophils Absolute Auto0.10.0- 0.1 10 3/uLImmature Granulocytes Abs Auto0.040.00-0.03 10 3/uLPerforming Lab:see noteML - [facility] LBECG 12 lead Reviewed date:05/04/2024 09:49:22 AM Interpretation: Performing Lab: Notes/Report: Source Facility: [place] [address] [place] [address] Electrocardiograph Report Signed Patient: GLADIS MICHAEL MR#: [id number] : 1975 Acct:[id number] Age/Sex: 48 / F ADM Date: 05/03/24 Loc: ER Attending Dr: Ordering Physician: Mojgan Hatfield Date of Service: 05/03/24 Procedure(s): ECG 12 lead Accession Number(s): [id number] cc: [facility] Test Date: 2024-05-03 Pat Name: GLADIS MICHAEL Department: Room: - Gender: Female Tax Attorney: : 1975 Requested By: KAILYN AGUIRRE Order Number: [id number] Reading MD: JEAN MARIE ORTEGA Measurements Intervals [place] Rate: 66 P: 136 RI: 142 QRS: 155 QRSD: 80 T: 121 QT: 396 QTc: 410 Interpretive Statements Sinus rhythm 5120 Possible right ventricular hypertrophy 0101 Possible arm leads reversed, check lead requested 9140 abnormal rhythm ECG Compared to ECG 10/24/2021 08:40:35 Sinus rhythm no longer present Electronically Signed On 05-03-2024 19:51:22 EST by JEAN MARIE ORTEGA Dictated By: Jean Marie Ortega D.O. Signed By: 05/03/241950 DD/ 1358 TD/TT: Holistic Pulser:CT head/brain wo con Reviewed date:05/03/2024 03:37:30 PM Interpretation: Performing Lab: Notes/Report: Source Facility: [place] [address] CT Scan Report Signed Patient: GLADIS MICHAEL MR#: [id number] : 1975 Acct:[id number] Age/Sex: 48 / F ADM Date: 05/03/24 Loc: ER Attending Dr: Ordering Physician: Mojgan Hatfield Date of Service: 05/03/24 Procedure(s): CT head/brain wo con Accession Number(s): [id number] cc: KAILYN AGUIRRE [place] [address] Patient Name: GLADIS MICHAEL MRN: [id number] date: 1975 Sex: F Assigned Patient Location: ER Current Patient Location: ER Accession/Order Number: [id number] Exam Date: 05/03/2024 14:37 Report Date: 05/03/2024 15:05 At the request of: MOJGAN HATFIELD Procedure: CT head/brain wo con CT head/brain wo con, 05/03/2024 2:37 PM EST INDICATION: Headache, dizziness COMPARISON: There is no appropriate prior study for comparison. TECHNIQUE: Axial CT images of the brain from skull base to vertex, including portions of the face and sinuses, were obtained without contrast . Multiplanar reformatted images were generated and reviewed as needed. Dose reduction techniques were achieved by using automated exposure control and/or adjustment of mA and/or kV according to patient size and/or use of iterative reconstruction technique. FINDINGS: The cerebral sulci as well as ventricular system are appropriate for age. There is no intracranial mass, mass effect, midline shift, intra or extra-axial fluid collection or hemorrhage. There is mucosal thickening within the sphenoid sinuses. The visualized portions of orbits, mastoid air cells as well as remainder of paranasal sinuses are unremarkable. There is no suspicious osteolytic or osteoblastic lesion. CT/CT head/brain wo con IMPRESSION: No acute intracranial process is noted. Electronically authenticated by: JOHN HORTA Date: 05/03/2024 15:05 Dictated By: John Horta M.D. Signed By: 05/03/24 1508 DD/ 1505 TD/TT: Holistic Pulser:NM ilene perf SPECT rest str Reviewed date:10/21/2024 10:03:13 AM Interpretation: Performing Lab: Notes/Report: Source Facility: [place] [address] Nuclear Medicine Report Signed Patient: GLADIS MICHAEL MR#: [id number] : 1975 Acct:[id number] Age/Sex: 49 / F ADM Date: 10/18/24 Loc: CARD Attending Dr: Gonzalez Ch NP Ordering Physician: Gonzalez Ch NP Date of Service: 10/18/24 Procedure(s): NM ilene perf SPECT rest str Accession Number(s): [id number] cc: KAILYN AGUIRRE ; Gonzalez Ch NP Patient Name: GLADIS MICHAEL MR#: [id number] : 1975 Exam Date: 10/18/2024 Ordering Doctor: GONZALEZ CH RADIOLOGY REPORT PROCEDURE: NM ILENE PERF SPECT REST STR COMPARISON: None. INDICATIONS: OTHER CHEST PAIN TECHNIQUE: Exam Description: Stress/Rest two day protocol gated SPECT Rest Imagin.2 mCi Tc-99m Cardiolite IV on 10/20/2024 Stress Imaging 25.5 mCi Tc-99m Cardiolite IV on 10/18/2024 Exercise Protocol: 0.4 mg Lexiscan given IV Heart Rate (bpm): Rest: 68 Max: 102 PMHR: 59 Blood Pressure: Rest: 130/78 Max: 136/74 Symptoms: Rest and peak stress ECG findings were pending and the exercise portion of the study was pending per attending physician [facility] [place] . For more details please see separate cardiac stress test report. FINDINGS: QUALITY OF STUDY: Good PERFUSION DEFECT: LOCATION: Anteroapical SIZE: Small SEVERITY: Mild TYPE: Reversible WALL MOTION: Normal wall motion LV SIZE: 78 mL. TID / TCD: 1.2 LVEF: Calculated EF 75%. SUMMARY: Myocardial perfusion imaging study is abnormal CONCLUSION: 1. Myocardial perfusion is abnormal 2. A small reversible anteroapical perfusion defect is seen suggestive of ischemia 3. Global left ventricular systolic function is normal, EF is 75% 4. No significant transient ischemic dilatation Dictated by: Lisa Farooq M.D. on 10/20/2024 at 15:47 Approved by: Lisa Farooq M.D. on 10/20/2024 at 15:50 Dictated By: Lisa Farooq M.D. Signed By: 10/20/24 1552 DD/ 1550 TD/TT: Holistic Pulser:FIORDALIZA Qualitative* Reviewed date:05/03/2024 03:38:30 PM Interpretation: Performing Lab: Notes/Report: [facility] ,HCG QualitativeNEGATIVENEGATIVEPerforming Lab:see noteML - [facility] LBErythrocyte Sedimentation Rate Reviewed date:05/03/2024 03:38:30 PM Interpretation: Performing Lab: Notes/Report: [facility] ,Erythrocyte Sedimentation Rate36<=20 mm/hrPerforming Lab:see noteML - [facility] LBUA (CLEAN or CATCH) MANAGER HOTEL or MICRO IF IND. Reviewed date:05/04/2024 09:49:22 AM Interpretation: Performing Lab: Notes/Report: [facility] ,Color UrineLT. YELLOWYELLOWClarity UrineCLEARCLEARSpecific [place] Urine1.010 1.005-1.025pH Urine6.05.0-9.0Protein UrineNEGATIVENEG/TRACE mg/dLGlucose Urine UANEGATIVENEGATIVE mg/dLBilirubin UrineNEGATIVENEGATIVEKetones UrineNEGATIVE NEGATIVE mg/dLBlood UrineNEGATIVENEGATIVENitrite UrineNEGATIVENEGATIVE Urobilinogen Urine0.20.2-1.0 EU/dLLeukocyte Esterase UrineNEGATIVENEGATIVEUrine Microscopic IndicatedNOPerforming Lab:see noteML - [facility] LBPROF 14(COMP METB) Reviewed date:05/03/2024 03:38:30 PM Interpretation: Performing Lab: Notes/Report: [facility] ,Ruxkcl470519-432 mmol/LPotassium3.63.5-5.1 mmol/YIxbrrikj33117-084 mmol/LCarbon Hkidxlr04.821.0-32.0 mmol/LAnion Gap15.7Gwkuwuv50244-565 mg/dLBlood Urea Ublrphbr71.07.0-18.0 mg/dLCreatinine0.840.55-1.02 mg/dLEstimated GFR ( Mary>60>=60 mL/min/1.73m 2Estimated GFR (Non- Dionna>60>=60 mL/min/1.73m 2BUN Creatinine Ratio16.2Nplbxhe1.08.5-10.1 mg/dLBilirubin Total0.70.2-1.0 mg/dL Aspartate Amino Ueaqvkcjjcu8290-68 U/LAlanine Hfqwhstyfhijxmmg6326-04 U/L Alkaline Jxuiwyyljtn9968-923 U/LTotal Protein8.06.4-8.2 g/dLAlbumin Level3.73.4- 5.0 g/dLGlobulin4.3Albumin Globulin Ratio0.9Performing Lab:see noteML - [facility] LBCRP Reviewed date:05/03/2024 03:38:30 PM Interpretation: Performing Lab: Notes/Report: [facility] ,C Reactive Protein1.54<=0.50 mg/dLPerforming Lab:see note - [facility] LB Reason For Referral No Information Medications Medication SIG (Take, Route, Frequency, Duration) [...] TABLETS BY MOUTH TWICE A DAY; Duration: 90ActiveChlorthalidone 25 MG1/2 Orally once dailyActive ALPRAZolam 0.25 MG1 tablet prn Orally Twice a day; Duration: 10 days04/06/2025 Active Social History Tobacco Use: Social History Observation Description Date Details (start date - stop date) Former Smoker NA - NA Tobacco Use/Smoking Question Answer Notes Patient is a former smoker AUDIT-C (Standard) Question Answer Notes Did you have a drink containing alcohol in the p ast year? No Qvqngi6YifiooglviknqwHybpkrkb Problems Problem Type SNOMED Code ICD Code Onset Dates Problem Status W/U Status Risk Notes Problem Leiomyoma of uterus (70090637) Leiomyoma of uterus, unspecified (D25.9) ActiveconfirmedProblemPalpitations (84278352)Palpitations (R00.2)Activeconfirmed ProblemChest pain (96702002)Other chest pain (R07.89)ActiveconfirmedProblem Hypertension (38768600)Hypertension (I10)ActiveconfirmedProblemOsteoarthritis (061622662)Osteoarthritis (M19.90)ActiveconfirmedProblemAnxiety (06150624) Anxiety (F41.9)ActiveconfirmedProblemArthralgia of the ankle and/or foot (103729547)Ankle pain, left (M25.572)ActiveconfirmedProblemSinusitis (80883442) Sinusitis (J32.9)ActiveconfirmedProblemCarpal tunnel syndrome of right wrist (708776955309397)Carpal tunnel syndrome of right wrist (G56.01)Activeconfirmed 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)Activeconfirmed ProblemTonsillar hypertrophy (43149008)Tonsillar hypertrophy (J35.1)Active confirmedProblemPituitary cyst (401924238)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)Activeconfirmed ProblemBody mass index 40+ - morbidly obese (442144283)BMI 40.0-44.9, adult (Z68.41)ActiveconfirmedProblemLoss of taste (93295498)Loss of taste (R43.2) ActiveconfirmedProblemCyst of ovary (44354355)History of ovarian cyst (Z87.42) ActiveconfirmedProblemSensory disorder of smell and/or taste (9993090443180)Loss of smell (R43.0)ActiveconfirmedProblemPain in thoracic spine (814627333)Back pain, thoracic (M54.6)ActiveconfirmedProblemSkin sensation disturbance (46195214)Hand paresthesia, unspecified laterality (R20.2)ActiveconfirmedProblem Mass of wrist, right (R22.31)ActiveconfirmedProblemHeadache (14141154)Headache, unspecified (R51.9)ActiveconfirmedProblemChronic cough (19923511)Chronic cough (R05.3)ActiveconfirmedProblemMorbid obesity (302071197)Class 3 obesity (E66.01) Activeconfirmed Vital Signs Temperature 98.4 degrees Fahrenheit 05/31/2024 Blood pressure aorewpvhc74 mm Hg04/06/20254985Ixylih41 in04/06/2025lood pressure dnwyfwik494 mm Hg04/06/20253498Fueyho559.4 lbs1MI42.93 kg/m204/06/2025 Encounters Encounter Location Date Provider Diagnosis [address] [address] 05/31/2024 Kailyn Aguirre Loss of taste R43.2 ; Loss of smell R43.0 and Sinusitis J32.[address] [address] 09/01/2024 Kailynshaggy Aguirre Anxiety F41.9 ; Wellness examination Z00.00 and 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 [address] 10/04/2024 Kailyn Aguirre Intermittent chest pain R07.9 and Anxiety F41.[address] [address] 04/06/2025 Kailyn Aguirre Wellness examination Z00.00 ; Anxiety F41.9 and Class 3 obesity E66.[address] [address] 05/04/2024 Kailyn Aguirre Anxiety F41.[address] [address] 05/04/2024 Kailyn Aguirre [address] [address] 05/24/2024oug HoyAnxiety F41.9[facility] [place] [address]/[facility] [address] [place] [address]/[facility] [place] [address]/ Kailyn Aguirre Assessments Encounter Date Diagnosis (ICD Code) Assessment Notes Treatment Notes Treatment Clinical Notes Section Notes 05/31/2024 Loss of taste (ICD-10 - R43.2) 05/31/2024Loss of smell (ICD-10 - R43.0)09/01/2024nxiety (ICD-10 - F41.9) some resources shared consider counseling add buspar, prn xanax 09/01/2024Wellness examination (ICD-10 - Z00.00) ROS done exam done labs ordered encouraged mammogram up to date on pap 10/04/2024Intermittent chest pain (ICD-10 - R07.9) sees cardiology on Friday, keep apt discussed may be related to her anxiety possible GERD, trial of OTC prilosec? doesnt want to take now 04/06/2025Wellness examination (ICD-10 - Z00.00) ROS done exam done cologuard ordered recent pap, encouraged mammogram 04/06/2025nxiety (ICD-10 - F41.9) take sertraline daily, set alarm often missing doses 05/04/2024nxiety (ICD-10 - F41.9)4Anxiety (ICD-10 - F41.9)04/06/2025 Class 3 obesity (ICD-10 - E66.01) may try mounjaro sample she has notify office if wants rx or needs another sample work on diet, increase activity 10/04/2024nxiety (ICD-10 - F41.9)not taking buspirone , anxious to start new med09/01/2024Pituitary cyst (ICD-10 - E23.6) check old records for last MRI when to repeat MRI? 12/23/2024Sinusitis (ICD-10 - J32.9)fu if not improving Plan Of Treatment Pending Test Test Name Order Date CMP (COMPLETE METABOLIC PANEL) 4 CMP (COMPLETE METABOLIC PANEL) 4 HEMOGLOBIN A1C (GLYCO) 04/06/2025 HEMOGLOBIN A1C (GLYCO) 07/09/2023 HEMOGLOBIN A1C (GLYCO) 09/01/2024 HEMOGLOBIN A1C (GLYCO) 11/14/2023 IRON, TOTAL 09/01/2024 IRON, TOTAL 07/09/2023 IRON, TOTAL 04/06/2025 IRON, TOTAL 11/14/2023 LIPID PANEL (CHOL/TRIG/HDL/LDL) 04/06/20 25 LIPID PANEL (CHOL/TRIG/HDL/LDL) 11/14/19 24 LIPID PANEL (CHOL/TRIG/HDL/LDL) 07/09/19 24 LIPID PANEL (CHOL/TRIG/HDL/LDL) 09/02/19 25 CBC WITH DIFF 07/09/2023 CBC WITH DIFF 11/14/2023 VITAMIN D, 25 LEVEL (TOTAL) 04/06/2025 VITAMIN D, 25 LEVEL (TOTAL) 07/09/2023 VITAMIN D, 25 LEVEL (TOTAL) 09/01/2024 BMP w/GFR 01/26/2024 Insulin Level 09/01/2024 Insulin Level 07/09/2023 Insulin Level 04/06/2025 Insulin Level 11/14/2023 CMP - Comprehensive Metabolic Panel 10/08 COVID-19, Flu A+B IH 05/31/2024 THYROID PROFILE WITH TSH 12/04/2022 UA RANDOM W or MICROSCOPIC 12/04/2022 THYROID PANEL (T4/TSH/FREE T3) 5 THYROID PANEL (T4/TSH/FREE T3) 4 THYROID PANEL (T4/TSH/FREE T3) 4 THYROID PANEL (T4/TSH/FREE T3) 5 CMP (COMP MET PERRIN) w/eGFR CKD-EPI 2024 CMP (COMP MET PERRIN) w/eGFR CKD-EPI 2024 CBC WITH DIFF 04/06/2025 CBC WITH DIFF 09/01/2024 Insurance Providers Payer Name Payer Address Payer Phone Subscriber Number Group Number Insured Name Patient Relationship to Insured Coverage Start Date Coverage End Date [employer] PPO PLUS LOCAL PLAN [address] [place] [address] [id number] Fabi Michael - patient is the spouse of the insured Medical (General) History Medical History History ICD Code Chronic cough R05.3 Pharyngitis J02.9 Cough, unspecified type R05.9 Dysuria R30.0 Back pain, thoracic M54.6 Abdominal pain, LLQ R10.32 History of ovarian cyst Z87.42 Wellness examination Z00.00 Light headedness R42 Hand paresthesia, unspecified laterality R20.2 Eye tearing H04.209 Loss of sense of smell R43.0 Loss of taste R43.2 Ear pain, left H92.02 Osteoarthritis M19.90 Ankle pain, left M25.572 Headache, unspecified R51.9 Angioma D18.00 Sore throat J02.9 Acute sinusitis J01.90 Other chest pain R07.89 Urinary tract infection N39.0 Tonsillar hypertrophy J35.1 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 BMI 40.0-44.9, adult Z68.41 Palpitations R00.2 Anxiety F41.9 Hypertension I10 Surgical History Surgery Date(Month/Year) ovarian cyst C-sectiongallbladderHospitalization History Reason Date(Month/Year) see above
--- OUTSIDE RECORDS SUMMARY | 2025-04-13 08:31 | XMS_ITS | Clinical Summary ---
Author Organization [facility] Address [address] [place] [address] Care Team Providers Care Chinese Instructor Name Role Phone Joseph Harris Tavia VENTURA Primary Care Provider + [phone] Jesus Cheatham MD Unavailable [phone] Allergies Active AllergyReactionsCriticalityNoted DateCommentsMetoprololOther: See Jrcvuret11/03/2016 heart races per patient Medications MedicationSigDispense QuantityRefillsLast FilledStart DateEnd DateStatus pindolol (VISKEN) 5 mg tablet Take 5 mg by mouth twice daily.04/08/2016Active sertraline (ZOLOFT) 50 mg tablet Take 50 mg by mouth once daily.04/10/2016Active lisinopril (ZESTRIL, PRINIVIL) 5 mg tablet Take 1 tablet by mouth once daily. 90 tablet Active Active Problems ProblemNoted DateDiagnosed DatePituitary mass10/20/2017Obesity, Class III, BMI >= 40 E66.01009/25/2017Cervical oshpzbxeyp72/12/1900Xvxiphfdqouku27/03/2016 Family History RelationStatusCommentsFatherDeceasedMotherAlive Social History Tobacco UseTypesPacks/DayYears UsedDateSmoking Tobacco: FormerCigarettes0.510 05/22/1995 - 05/22/2005Smokeless Tobacco: NeverAlcohol UseStandard Drinks/Week CommentsNo0 (1 standard drink = 0.6 oz pure alcohol)PHQ-2AnswerDate RecordedPHQ- 2 rsqlz344Area Deprivation IndexAnswerDate RecordedNational Score (1- 100), lower number is lower riskNot on file05/17/2020State Score (1-10), lower number is lower riskNot on file05/17/2020Data from: https://www.neighborhoodatlas.medicine.[facility].edu/. Last address used for calculationNot on file05/17/2020CommentsNoSex and Gender Information ValueDate RecordedSex Assigned at BirthNot on fileLegal XbnYrwley67/28/2016 1:08 PM ESTGender IdentityNot on fileSexual OrientationNot on file Last Filed Vital Signs Vital SignReadingTime TakenCommentsBlood Ukorevev387/8256110/20/2017 9:23 AM EDT second attempt 153/919Qyzcl6313/14/2018 9:23 AM HGKMvvqfnzrsrr05.9 ??C (98.5 ??F)10/20/2017 9:23 AM EDTRespiratory Neot633310/20/2017 9:23 AM EDTOxygen Foiwuuynrg84%10/20/2017 9:23 AM EDTInhaled Oxygen Concentration--Qlighu773.9 kg (233 lb 6.4 oz)10/20/2017 9:23 AM RJYAatubt447.5 cm (5' 2.01 )10/20/2017 9:23 AM EDTBody Mass Index42.68010/20/2017 9:23 AM EDT Plan of Treatment Health MaintenanceDue DateLast DoneCommentsAnxiety Yktfuvmdb15/05/1994Depression Ufxtkzpwb20/05/1994DTaP,Tdap,Td Vaccine (1 - Tdap)1994Hepatitis B Vaccine (1 of 3 - 19+ 3-dose series)1994Cervical Cancer Etoodngvr56/05/1997 Mammogram Cwymdtmdr74/05/2016CT Lsjecovftcat05/05/2021ologuard (FIT-DNA) 06/13/20202810Fevbllpmset29/05/2021olorectal Cancer Ckqaisqae44/05/2021Fecal Occult Blood1Lipid Srcwfoyam71/05/8633Uacyyxjegpduj58/05/2021Diabetes Dkiuzacem96/, 03/14/2017, 04/11/2016Covid-19 Vaccine ( - season)2025Influenza Vaccine (#1)2025Hepatitis C Screening Fdajgkzno60/06/2017HIV EfrqwboigVrfrxlfme41/28/2017 Procedures Procedure NamePriorityDate/TimeAssociated DiagnosisCommentsBASIC METABOLIC PANEL Mzdylvn8710/06/2017 10:46 AM EDT Lymphocytosis HIV 1/2 COMBO WITH REFLEX TO WYKCHSLLIHZIGKWXjpownh90/28/2017 2:50 PM EST Lymphocytosis Cervical adenopathy HEP REMOTE PANEL RHPxvotho36/06/2017 11:12 AM EDT Lymphocytosis from Last 3 Months or Most Recently Relevant to Health Maintenance Results * (ABNORMAL) BASIC METABOLIC PNL (10/06/2017 10:46 AM EDT)ComponentValueRef RangeTest MethodAnalysis TimePerformed AtPathologist ZktahazjuRgjjooo8319 - 99 mg/dL10/06/2017 5:55 PM EDTCMERCY [facility] MAIN LABORATORYComment: The [place] Diabetes Association (ADA) provides guidance for cutoff values for fasting glucose and random glucose. The ADA defines fasting as no caloric intake for at least 8 hours. Fasting plasma glucose results between 100 to 125 mg/dL indicate increased risk for diabetes (prediabetes). Fasting plasma glucose results greater than or equal to 126 mg/dL meet the criteria for diagnosis of diabetes. In the absence of unequivocal hyperglycemia, results should be confirmed by repeat testing. In a patient with classic symptoms of hyperglycemia or hyperglycemic crisis, random plasma glucose results greater than or equal to 200 mg/dL meet the criteria for diagnosis of diabetes. Reference: Standards of Medical Care in Diabetes 2016, [place] Diabetes Association. Diabetes Care. 2016.39(Suppl 1). ABY422 - 21 mg/dL10/06/2017 5:55 PM EDTCMERCY [facility] LAB[facility]ATORY Creatinine0.54(L)0.58 - 0.96 mg/dL10/06/2017 5:55 PM EDTCMERCY [facility] MAIN TXWUNNHOABBrtqjw626(L)136 - 144 mmol/L10/06/2017 5:55 PM EDTCMERCY [facility] MAIN LABORATORYPotassium4.43.7 - 5.1 mmol/L10/06/2017 5:55 PM EDTCMERCY [facility] MAIN ISQLWBCWTBBbzjohha24(L)97 - 105 mmol/L10/06/2017 5:55 PM EDT [facility] GOIVUZKWNWTL24091 - 30 mmol/L10/06/2017 5:55 PM EDT [facility] LABORATORYAnion Ity229 - 18 mmol/L10/06/2017 5:55 PM EDT [facility] LABORATORYCalcium9.58.5 - 10.2 mg/dL10/06/2017 5:55 PM EDT [facility] LABORATORYeGFR->6004 5:55 PM EDT [facility] LABORATORYeGFR-All Other Races>60.10/06/2017 5:55 PM EDT [facility] LABORATORYComment: eGFR (Estimated GFR) Units of measure: mL/min/1.73 meters squared eGFR is derived from the reexpressed MDRD Study equation using the following parameters: serum creatinine, age, gender and race. The creatinine assay has been calibrated to be traceable to IDMS. An eGFR <60 mL/min/1.73m2 for >3 months is consistent with chronic kidney disease. Refer to KDOQI guidelines for clinical interpretation. In patients with unstable renal function, e.g. those with acute kidney injury, the eGFR may not accurately reflect actual GFR. Specimen (Source)Anatomical Location / LateralityCollection Method / Volume Collection TimeReceived TimeBlood specimen (specimen)10/06/2017 10:46 AM EDT 10/06/2017 10:48 AM EDT Narrative Authorizing ProviderResult TypeResult StatusVeto [place] DOLABORATORY Final ResultPerforming OrganizationAddressCity/State/ZIP CodePhone Number [facility] [address] [place] [address] * HIV 1,2 COMBO (AG/AB) (06/05/2017 2:50 PM EST)ComponentValueRef RangeTest MethodAnalysis TimePerformed AtPathologist SignatureHIV 12 Combo (Ag/Ab)Non ReactiveNon Jkupouln98/29/2017 11:24 AM ESTCLEVELAND CLINIC [facility] LABORATORY Comment: (NOTE) HIV Information: ??[place] Rev. Code 3701.243(E): This information has been disclosed to you from confidential records protected from disclosure by state law. You shall make no further disclosure of this information without the specific, written, and informed release of the individual to whom it pertains, or as otherwise permitted by state law. A general authorization for the release of medical or other information is not sufficient for the purpose of the release of HIV test results or diagnoses. Specimen (Source)Anatomical Location / LateralityCollection Method / Volume Collection TimeReceived TimeBlood specimen (specimen)BLOOD SPECIMEN / Unknown 06/05/2017 2:50 PM EST06/05/2017 4:21 PM EST Narrative Authorizing ProviderResult TypeResult StatusVeto [place] DOLABORATORY Final ResultPerforming OrganizationAddressCity/State/ZIP CodePhone Number [facility] [address] [place] [address] * HEP REMOTE PANEL BL (03/14/2017 11:12 AM EDT)ComponentValueRef RangeTest MethodAnalysis TimePerformed AtPathologist SignatureHep B Core Ab, Total FunrbbjjXexstrpb68/06/2017 6:58 PM EDTCBR[facility] MAIN LABORATORYHep C Antibody MHTcurklbsVvfeyyid68/06/2017 6:58 PM EDTCBROWN [facility] MAIN WTLAMFZIXYDApXkQrmoumyzYrbknqtv45/06/2017 6:58 PM EDTCL[facility] LABORATORYHep B Surface Ab, OkzoGcxpbgziQshtwfpx41/06/2017 6:58 PM EDT [facility] LABORATORYComment:NEGATIVESpecimen (Source)Anatomical Location / LateralityCollection Method / VolumeCollection TimeReceived Time Blood specimen (specimen)BLOOD SPECIMEN / Qtbundx4103/14/2017 11:12 AM EDT 03/14/2017 11:14 AM EDT Narrative Authorizing ProviderResult TypeResult StatusVeto [place] DOLABORATORY Final ResultPerforming OrganizationAddressCity/State/ZIP CodePhone Number [facility] [address] [place] [address] from Last 3 Months or Most Recently Relevant to Health Maintenance Insurance Care Teams Team MemberRelationshipSpecialtyStart DateEnd Date Joseph Harris DO PCP - GeneralFamily Medicine07/06/15 Jesus Cheatham MD [address] [address] Primary Staff PhysicianCardiology08/25/18
--- OUTSIDE RECORDS SUMMARY | 2025-04-13 08:31 | XMS_ITS | Clinical Summary ---
Author Organization [facility] tem Address [id number] [place] [address] Care Team Providers Care Efficiency Clerk Name Role Phone Yinka Armstrong MD Primary Care Provider [phone] Allergies No known active allergies Medications MedicationSigDispense QuantityRefillsLast FilledStart DateEnd DateStatus pindolol (VISKEN) 5 mg tablet Take 5 mg by mouth.04/08/2016Active lisinopril (PRINIVIL,ZESTRIL) 5 mg tablet Take 5 mg by mouth.09/25/2017Active sertraline (ZOLOFT) 50 mg tablet Take 50 mg by mouth.04/10/2016Active Active Problems ProblemNoted DateDiagnosed DateHypertrophy roclggz2102/10/2018 Social History Tobacco UseTypesPacks/DayYears UsedDateSmoking Tobacco: FormerCigarettesQuit: 2005Smokeless Tobacco: NeverChildcareAnswerDate RecordedChildcareUnknown 11/19/2018EmploymentAnswerDate MybbbaipSjwdiryftuNitdtky46/13/2019Purpose - Life AnswerDate RecordedPurpose and direction in uitxUhvhsqh75/11/2021 CommentsUnknownSex and Gender InformationValueDate RecordedSex Assigned at Not on fileLegal UcvUlyukt38/02/2018 2:38 PM EDTGender IdentityNot on fileSexual OrientationNot on file Last Filed Vital Signs Vital SignReadingTime TakenCommentsBlood Pressure--Pulse--Temperature-- Respiratory Rate--Oxygen Saturation--Inhaled Oxygen Concentration--Epxgua919.9 kg (248 lb 12.8 oz)04/21/2018 8:56 AM LUWJlopmo184 cm (5' 3 )04/21/2018 8:56 AM ESTBody Mass Index44.0704/21/2018 8:56 AM EST Plan of Treatment Health MaintenanceDue DateLast DoneCommentsDepression Kscrxlfny11/05/1988Tobacco Ksfiemmdp27/05/1988Adult BMI Rpilsklrh11/05/1994DTaP,Tdap and Td Vaccines (1 - Tdap)1994Pap Smear1996Influenza Lwhuple0302/07/2025 Medical Devices Not on file Insurance Care Teams Team MemberRelationshipSpecialtyStart DateEnd Yinka Armstrong MD PCP - GeneralFamily Medicine06/25/18
--- OUTSIDE RECORDS SUMMARY | 2025-04-13 08:31 | XMS_ITS | Clinical Summary ---
Author Organization [facility] Address [address] [place] [address] Care Team Providers Care Booking Supervisor Name Role Phone Kailyn Aguirre DIMITRY Primary Care Provider [phone] Allergies Active AllergyReactionsCriticalityNoted WmvdTtjzfwwsYbsbwblltkYielz44/03/2016 heart races per patient Medications MedicationSigDispense QuantityRefillsLast FilledStart DateEnd DateStatus pindolol (Visken) 5 mg tablet Take 10 mg by mouth in the morning and at bedtime.09/19/2022ctive sertraline (Zoloft) 50 mg tablet Take 50 mg by mouth in the morning.08/03/2022ctive potassium chloride CR (Klor-Con) 10 mEq ER tablet Take 5 mEq by mouth 3 (three) times a week.12/29/2023ctive lisinopril 20 mg tablet Take 20 mg by mouth every 12 (twelve) hours.09/21/2023ctive ALPRAZolam (Xanax) 0.5 mg tablet Take 0.25 mg by mouth if needed for anxiety.03/30/2024ctive chlorthalidone (Hygroton) 25 mg tablet Indications:Essential hypertensionTAKE 1 TABLET BY MOUTH EVERY DAY IN THE MORNING 90 tablet tive Active Problems ProblemNoted DateDiagnosed NckiZibdnoj37/15/2025Loss of taste09/21/2024hronic painbnormal uterine mgacptqi96eneralized anxiety qgptbebe11/Ovarian cystain in limb elvic and perineal pain/13/2023Essential aoolcynzbvqp85/11/2019 Assessment & Plan (07/23/2023 9:24 AM EST): Hypertension is uncontrolled will increase chlorthalidone and pt c/o persistent dry cough- therefore will stop lisinopril. She is to monitor b/p at home and if consistently > 130/80 she is to call office and then may need started on losartan Repeat BMP in 1-2 weeks Assessment & Plan (09/29/2022 9:15 AM EDT): - Uncontrolled hypertension, will start her on chlorthalidone 12.5 mg with repeat BMP -We will have her follow-up in 1 week to watch blood pressure closely -She is asymptomatic today but has had recent symptoms of headaches with her ER visit for hypertension -I will get repeat echo Vgbqbmz9707/20/2018Pituitary cyst07/20/2018Sleep apnea Hypertensive qmmrruxw90/04/2019Hypertrophy ojmxswp0402/10/2018Pituitary mass 10/20/2017Obesity, Class III, BMI 40-49.9 (morbid obesity)09/25/2017Cervical tbnmaqbhhp95/12/1662Bqdomvyyrgfwg51/03/2016PalpitationsNonrheumatic mitral valve regurgitation Assessment & Plan (07/23/2023 9:13 AM EST): Continues to have palpitations with known MV regurg on beta yandel. Will repeat echo to evaluate for any worsening MV regurg, diastolic dysfunction. Diastolic dysfunction, left ventricle Assessment & Plan (07/23/2023 9:49 AM EST): Currently without fluid overload/ edema at this time with chlorthalidone daily. + RANDALL Will repeat TTE Encounters DateTypeDepartmentCare MgxuQdlkgdvgkrk25/21/2025Ref[facility] [place] [address] [place] [address] Mary Martin, DIMITRY Essential hypertensionfrom Last 3 Months Family History Medical HistoryRelationNameCommentsCancerBrotherCancerFatherNo Known Problems MotherRelationNameStatusCommentsBrotherDeceasedFatherDeceasedMotherAliveSister Alive Social History Tobacco UseTypesPacks/DayYears UsedDateSmoking Tobacco: FormerCigarettes Smokeless Tobacco: Never Tobacco Cessation:Counseling Given: Not Answered Alcohol UseStandard Drinks/WeekCommentsNot Currently0 (1 standard drink = 0.6 oz pure alcohol)UT Safety & EnvironmentAnswerDate RecordedFear of Current or Ex-PartnerNot on file07/31/2023Emotionally AbusedNot on file07/31/2023hysically AbusedNot on file07/31/2023Sexually AbusedNot on file07/31/2023hysically or Sexually AbusedNot on file07/31/2023CommentsUnknownSex and Gender InformationValueDate RecordedSex Assigned at EyfyuTndhkl76/09/2025 9:38 AM EDT Legal IrtWtzjbx29/30/2022 12:11 AM EDTGender MlresuskPyylzb31/09/2025 9:38 AM EDTSexual OrientationHeterosexual or Ugszvazp14/09/2025 9:38 AM EDT Last Filed Vital Signs Vital SignReadingTime TakenCommentsBlood Mzqgubrn878/65012/14/2024 8:30 AM EDT Pctgw1114/08/2025 8:30 AM EDTTemperature--Respiratory Ygdw987712/14/2024 8:05 AM EDTOxygen Rwzaorikmp006%12/14/2024 8:30 AM EDTInhaled Oxygen Concentration-- Zfdiow453 kg (239 lb)10/06/2024 2:11 PM DRIMsrogr329 cm (5' 3 )10/06/2024 2:11 PM EDTBody Mass Index42.34010/06/2024 2:11 PM EDT Plan of Treatment Health MaintenanceDue DateLast DoneCommentsCT Xsbhilcxzrzb11/05/1976Colonoscopy 1975Colorectal Cancer Pjuilerup34/05/1976FIT-DNA1975FIT1975 FOBT1975 8720Llkbjhvteqxuq62/05/1976Depression Muilskqpe90/05/1988Hepatitis B Vaccines (1 of 3 - 19+ 3-dose series)1994Pneumococcal Vaccine: Pediatrics (0 to 5 Years) and At-Risk Patients (6 to 64 Years) (1 of 2 - PCV)1994Pap Smear1996Adult Berjuzn7506/13/1997Cervical Cancer Lppajckow66/05/2006 HPV/Pagfmh3806/13/20050604Xnzsmqwif00/05/2016COVID-19 Vaccine ( season) , 09/21/2020, 08/31/2020Influenza Vaccine (#1)2025 05/08/2022, 03/09/2020, 03/16/2018, Additional history existsZoster Vaccines (1 of 2)2025HIB VaccinesAged OutNo longer eligible based on patient's age to complete this topicHPV VaccinesAged OutNo longer eligible based on patient's age to complete this topicIPV VaccinesAged OutNo longer eligible based on patient's age to complete this topicMeningococcal B VaccineAged OutNo longer eligible based on patient's age to complete this topicMeningococcal VaccineAged OutNo longer eligible based on patient's age to complete this topicRotavirus Vaccines Aged OutNo longer eligible based on patient's age to complete this topic Insurance Care Teams Team MemberRelationshipSpecialtyStart DateEnd Date Kailyn Aguirre CNP [facility] [facility], [place] [address] PCP - GeneralVan [facility] Centerly Medicine02/19/23
--- OUTSIDE RECORDS SUMMARY | 2025-04-13 08:35 | XMS_ITS | CCD ---
Author Organization [facility] Care Team Providers Care Dominatrix Name Role Phone ADAMOWICZ, ISAAC J Unavailable Unavailable ADAMOWICZ, ISAAC J Unavailable Unavailable ADAMOWICZ, ISAAC J Unavailable Unavailable ADAMOWICZ, ISAAC J Unavailable Unavailable ADAMOWICZ, ISAAC J Unavailable Unavailable ADAMOWICZ, ISAAC J Unavailable Unavailable ADAMOWICZ, ISAAC J Unavailable Unavailable ADAMOWICZ, ISAAC J Unavailable Unavailable ADAMOWICZ, ISAAC J Unavailable Unavailable ADAMOWICZ, ISAAC J Unavailable Unavailable CANDIS HERNANDEZ Unavailable Unavailable SHANAE LUNA (DIE CASTING MACHINE MAINTAINER) Unavailable Unavailabl e ADAMOWICZ, ISAAC J Unavailable Unavailable ADAMOWICZ, ISAAC J Unavailable Unavailable ADAMOWICZ, ISAAC J Unavailable Unavailable JESUS CHEATHAM Unavailable Unavailab le ADAMOWICZ, ISAAC J Unavailable Unavailable SHANAE LUNA (DIE CASTING MACHINE MAINTAINER) Unavailable Unavailabl e SHANAE LUNA (DIE CASTING MACHINE MAINTAINER) Unavailable Unavailabl e ADAMOWICZ, ISAAC J Unavailable Unavailable ADAMOWICZ, ISAAC J Unavailable Unavailable JESUS CHEATHAM Unavailable Unavailab JOSEPH Arceo Unavailable Unavailab le ADAMOWICZ, ISAAC J Unavailable Unavailable ADAMOWICZ, ISAAC J Unavailable Unavailable ADAMOWICZ, ISAAC J Unavailable Unavailable SHANAE LUNA (DIE CASTING MACHINE MAINTAINER) Unavailable Unavailabl e ADAMOWICZ, ISAAC J Unavailable Unavailable ADAMOWICZ, ISAAC J Unavailable Unavailable PHYSICIAN, DEFAULT Admitting Unavailable PHYSICIAN, DEFAULT Attending Unavailable PHYSICIAN, DEFAULT Admitting Unavailable PHYSICIAN, DEFAULT Attending Unavailable KAILYN WAITE Primary Care Physician [phone] DR GUSTAVO GREWAL Consulting Unavailable KAILYN WAITE Primary Care Unavailable SHERMAN ., DR JUÁREZ Attending Unavailable SHERMAN ., DR JUÁREZ Admitting Unavailable ALLI CARLSON Consulting Unavailable WADE BOUCHER Consulting Unavailable KAILYN WAITE Primary Care Unavailable KAILYN WAITE Attending Unavailable KAILYN WAITE Admitting Unavailable MARIANN, KAILYN Consulting Unavailable MARIANN, KAILYN Primary Care Unavailable MARIANN, KAILYN Attending Unavailable MARIANN, KAILYN Admitting Unavailable CHERELLE, DR SHADE Solitario Consulting Unavailable MARIANN, KAILYN Primary Care Unavailable [...] Unavailable MARIANN, KAILYN Primary Care Unavailable FANNIE, DIANE Attending Unavailable [...] Attending Unavailable MARIANN, KAILYN Admitting Unavailable TERRI LANDAVERDE Consulting Unavailable JAKE ., SEYMOUR Attending Unavailable JAKE ., SEYMOUR Admitting Unavailable MARIANN, KAILYN Primary Care Unavailable JAKE ., SEYMOUR Consulting Unavailable SHERMAN ., DR JUÁREZ Consulting Unavailable MARIANN, KAILYN Primary Care Unavailable SHERMAN ., DR JUÁREZ Attending Unavailable SHERMAN ., DR JUÁREZ Admitting Unavailable [place] Unavailable DO Jeffy Das Attending Unavailable Jeffy Das Attending Unavailable GONZALEZ KO Attending Unavailable GERALD MANCINI Attending Unavailable GONZALEZ KO Referring Unavailable Luke Vora DO Attending Provider Mariann QUILL [employer], Kailyn Lisette Primary Care Provider Kailyn Waite Lisette Primary Care Unavailable Luke Vora Attending Unavailable Luke Vora Admitting Unavailable Luke Vora DO Attending Provider [phone] Mariann [employer], Kailyn Knox Primary Care Provider Allergies Allergy ClassificationReported Allergen(s)Allergy TypeDate of OnsetReaction(s) Facility (6 sources)metoprolol; Translations: [METOPROLOL]Drug Gafkfix93-71-3944BQC, heart racingPark[facility] Repository (2 sources)PyridoxalDrug Xntjeng50-97-7531Oec [facility] Repository (3 sources)patient allergy list reviewed by nurse or physiciaPropensity to adverse enmutwwhc82-28-3156Urkxqgw:DoneNort [employer] Other (3 sources)Allergies ReconciledPropensity to adverse reactionsUnknowCox [facility]nut [facility] [employer] Other (2 sources)Ciprofloxacin; Translations: [ciprofloxacin]Drug AllergyUnknown (qualifier value)[facility] [place] (1 source)Metoprolol; Translations: [Toprol-XL][facility]ergyZ[facility] Medications Current Medications MedicationDrug Class(es)DatesSig (Normalized)Sig (Original)acetaminophen 325 mg / oxyCODONE hydrochloride 5 mg oral tablet (2 sources)Opioid AgonistStart: 35-00-6642Daanyabf 5 mg-325 mg oral tablet 1 tab(s), Oral, q6hr as needed for pain, 12 tab(s), Refill(s) 0, [facility]/pharmacy #[id number], 160, cm, 10/18/21 4:04:00 EDT, Height/Length Dosing, 107, kg, 10/18/21 4:04:00 EDT, Weight Dosing Start Date: 10/18/21 Status: OrderedamLODIPine 5 mg oral tablet (1 source)Dihydropyridine Calcium Channel BlockerStart: 83-79-2416nydh 1 tablet by mouth once dailyamLODIPine 5 mg Tab 5 mg = 1 tab(s), Oral, Daily, Refills(s) 0 Start Date: 11/22/21 Status: Ordered Repeat number: 1azithromycin 250 mg oral tablet (6 sources)Macrolide AntimicrobialStart: 81-12-6687Jwykspucqqtp 250 MG as directed Orally 2 tabs po today, then 1 tab daily x 4 more days for 5 Jun, Activedoxycycline hyclate 100 mg oral tablet (2 sources)Tetracycline-class DrugStart: 23-57-9078ghyy 1 tablet by mouth twice dailydoxycycline hyclate 100 mg Tab 100 mg = 1 tab(s), Oral, BID, # 20 tab(s), Refills(s) 0, Pharmacy: [facility]/pharmacy #[id number], 160, cm, 10/18/21 4:04:00 EDT, Height/Length Dosing, 107, kg, 10/18/21 4:04:00 EDT, Weight Dosing Start Date: 10/18/21 Status: Orderedketorolac tromethamine 10 mg oral tablet (1 source)Nonsteroidal Anti-inflammatory Drug, Cyclooxygenase InhibitorStart: 10-20-2021 End: 40-87-0310viph 1 tablet by mouth every six hours as needed for pain ketorolac 10 mg Tab 10 mg = 1 tab(s), Oral, q6hr, PRN for pain, X 5 day(s), # 20 tab(s), Refills(s)0, Pharmacy: [facility]/pharmacy #[id number], 160, cm, 10/20/21 18:21:00 EDT, Height/Length Dosing, 107, kg, 10/20/21 18:21:00 EDT, Weight Dosing Start Date: 10/20/21 Stop Date: 10/25/21 Status: Orderedmeclizine hydrochloride 25 mg oral tablet (1 source)AntiemeticStart: 83-63-9437fhex 1 tablet by mouth three times daily meclizine 25 mg Tab 25 mg = 1 tab(s), Oral, TID, Refills(s) 0 Start Date: 11/22/21 Status: Ordered Repeat number: 1pindolol 5 mg oral tablet (15 sources)beta-Adrenergic BlockerStart: 09-21-2023 End: 61-08-7951hxky 1 tablet by mouth twice dailyPindolol 5 mg tablet Active 10 MG PO Twice daily September 12, 2024 12:33pm Complies with drug therapyStart: 88-14-8010Lhjuynub Active MG PO September 21, 2023 12:00amStart: 11-07-2021 Pindolol 10MG Pindolol( 10MG Oral two times daily ) Active -Hx Entry Oral two times daily for 0 *Pick strength-form from [employer] for eRX* Nov, Active Start: 19-98-7611vnzi 2 tablets by mouth twice dailypindolol 5 mg oral tablet 10 mg = 2 tab(s), Oral, BID, Refills(s) 0 Start Date: 05/22/17 Status: Ordered Repeat number: 1Start: 15-04-0826xoya 1 tablet by mouth twice dailypindolol 5 mg oral tablet 5 mg = 1 tab(s), Oral, BID, Refills(s) 0 Start Date: 05/22/17 Status: OrderedtraMADol hydrochloride 50 mg oral tablet (1 source)Opioid AgonistStart: 47-23-0994qulz 1 tablet by mouth twice daily as needed for painTramadol 50 mg tablet Active 50 MG PO Twice daily as needed for pain 10 7 0 April 06, 2025 11:00pm Carpal tunnel syndrome of right wrist Carpal tunnel syndrome, right upper limb dispense 10 (ten)tablets diagnosis G56.01 do not fill until 04/17/2025 Complies with drug therapy Completed/Discontinued Medications MedicationDrug Class(es)DatesSig (Normalized)Sig (Original)ALPRAZolam 0.25 mg oral tablet (4 sources)BenzodiazepineStart: 09-12-2024 End: 82-17-1656sfnw 1 tablet by mouth twice daily as neededAlprazolam 0.25 mg tablet Discontinued 0.25 MG PO Twice daily as needed September 11, 2024 11:00pm March 09, 2025 11:57amamoxicillin 875 mg / clavulanate 125 mg oral tablet (4 sources)Penicillin-class AntibacterialStart: 09-12-2024 End: 47-89-8427rpoh 1 tablet by mouth twice dailyAmoxicillin-Pot Clavulanate 875-125 mg tablet Discontinued 1 TAB PO Twice daily 14 7 0 September 11, 2024 11:00pm March 09, 2025 11:57amchlorthalidone 25 mg oral tablet (12 sources)Thiazide-like DiureticStart: 09-12-2024 End: 29-01-0249Fklmqhmyaztvbo 25 mg tablet Discontinued 12.5 MG PO Daily September 12, 2024 12:33pm March 091:57amStart: 09-21-2023 End: 65-96-8609Hyoitgvoxweiif 25 mg tablet Discontinued MG PO September 20, 2023 11:00pm September 12, 2024 12:35pmStart: 02-95-9316Chwfjhvqotahsf Active MG PO September 21, 2023 12:00amChlorthalidone 25 MG 1/2 tablet once a day Active hydrocortisone 10 mg/ml / neomycin 3.5 mg/ml / polymyxin b 17024 unt/ml otic suspension (4 sources)Aminoglycoside Antibacterial, Polymyxin-class Antibacterial, CorticosteroidStart: 09-21-2023 End: 45-91-1448Tevdqklr-Polymyxin-Hc 3.5-10,000-1 mg/mL-unit/mL-% drops,suspension Discontinued 3 DROPS EAR-BOTH Three times daily 10 0 September 20, 2023 11:00pm September 12, 2024 12:33pmlisinopril 20 mg oral tablet (17 sources)Angiotensin Converting Enzyme InhibitorStart: 75-38-1880Bhdnaqkyav Active MG PO September 21, 2023 12:00amStart: 03-42-7243olob 1 tablet by mouth once daily in the evening, then take 2 tablets by mouth in the morning, thentake 1 tablet by mouth at bedtimelisinopril 2.5 mg Tab 2.5 mg = 1 tab(s), Oral, qPM, Take 5 mg in the morning and 2.5 mg at bedtime,# 30 tab(s), Refills(s) 0, Pharmacy: [facility]/pharmacy #[id number] Start Date: 11/10/17 Status: OrderedStart: 11-10-2017 take 1 tablet by mouth once dailylisinopril 5 mg Tab 5 mg = 1 tab(s), Oral, Daily, Refills(s) 0 Start Date: 11/10/17 Status: OrderedStart: 07-08-2017 End: 10-22-4392Fmwvcjodly 20 mg tablet Discontinued MG PO September 20, 2023 11:00pm September 12, 2024 12:35pmpredniSONE 20 mg oral tablet (4 sources)Start: 09-21-2023 End: 67-10-4614uqxz 1 tablet by mouth twice dailyPrednisone 20 mg tablet Discontinued 20 MG PO Twice daily 10 5 0 September 20, 2023 11:00pm September 12, 2024 12:34pmsertraline 50 mg oral tablet (15 sources)Serotonin Reuptake InhibitorStart: 21-31-3152Qursfugucx Active MG PO September 21, 2023 12:00amStart: 11-22-2021 End: 13-29-2871Syshykhewk 50 mg tablet Discontinued MG PO September 20, 2023 11:00pm September 12, 2024 12:35pmStart: 58-43-5795puxaaeldyo 100 mg Tab 50 mg = 0.5 tab(s), Oral, Bedtime, Refills(s) 0 Start Date: 11/10/17 Status: OrderedStart: 84-49-9762Ykxwpgawtx HCl 50MG Sertraline HCl 50MG, # 0.00, 10/14/2012, No Refill. Active for 0 *Pick strength-form from [employer] for eRX* October, Active Problems Active Problems Problem ClassificationProblemDateDocumented DateEpisodic/ChronicAbdominal pain (9 sources)Left lower quadrant pain; Translations: [Left lower quadrant pain] Onset: 04-12-0101UhssizdqUkykg and chronic tonsillitis (3 sources)Hypertrophy of tonsils; Translations: [Hypertrophy of tonsils]Onset: 01-85-8157JlhgixeOxrgd bronchitis (3 sources)Acute bronchitis; Translations: [Acute bronchitis due to other specified organisms]EpisodicAnxiety disorders (12 sources)Generalized anxiety disorder; Translations: [Anxiety disorder]Onset: 07-08-2017 Resolved: 283166-55-7422JkqhbnzRgkgvxmwo infection; unspecified site (2 sources)Other specified bacterial agents as the cause of diseases classified elsewhereEpisodicCardiac dysrhythmias (9 sources)Tachycardia, unspecified; Translations: [Palpitations]Onset: 05-22-2017 Resolved: 54-28-3413KzgyjpvuRigpllql atherosclerosis and other heart disease (2 sources)Chronic ischemic heart disease, unspecified; Translations: [Chronic ischemic heart disease, unspecified]Onset: 16-76-4324LriqopkJeohaybx of white blood cells (2 sources)Lymphocytosis (symptomatic); Translations: [Lymphocytosis]Onset: 943358-00-9699WopgsonZoxxzbziq hypertension (13 sources)Hypertensive disorder; Translations: [Essential (primary) hypertension]Onset: 02-24-2017 Resolved: 492045-26-5442ZycqnqmCmkfx and electrolyte disorders (1 source)Hypokalemia; Translations: [Hypokalemia]Onset: 48-38-9993Cadjkkek Genitourinary symptoms and ill-defined conditions (7 sources)Dysuria; Translations: [Larry hematuria]Onset: 75-73-2346Vknlipau Headache; including migraine (4 sources)Headache; including migraine; Translations: [HEADACHE UNSPECIFIED] Onset: 96-49-4065Tgeokcbdnxlh diseases of female pelvic organs (4 sources)Chronic salpingitis; Translations: [Chronic salpingitis]Onset: 87-39-9172NsntwvhIshbekncehvd diseases of female pelvic organs (3 sources)Acute vaginitis; Translations: [Acute vaginitis]EpisodicMood disorders (1 source)Mood kfomjitp17-89-8572AaczlhzWwztmkakvrt chest pain (6 sources)Chest pain; Translations: [Chest pain, unspecified]Onset: 07-28-2018 EpisodicOther aftercare (1 source)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; Translations: [OTH PENITENTIARY CURRENT DRUG THERAPY]Onset: 91-82-9468SclwombgYicyh aftercare (3 sources)History and physical examination, follow-up; Translations: [Encounter for follow-up examination after completed treatment for conditions other than malignant neoplasm]EpisodicOther connective tissue disease (3 sources)Calcaneal spur of left foot; Translations: [Calcaneal spur, left foot]EpisodicOther connective tissue disease (3 sources)Pain in left foot; Translations: [Pain in left foot]EpisodicOther connective tissue disease (3 sources)Calcific tendinitis; Translations: [Calcific tendinitis, other site] EpisodicOther connective tissue disease (3 sources)Peroneal tendinitis; Translations: [Peroneal tendinitis, left leg] EpisodicOther connective tissue disease (3 sources)Pain in right lower limb; Translations: [Pain in right leg]Episodic Other endocrine disorders (1 source)Pituitary azbd16-79-4074DvnhqkrEbdkr female genital disorders (1 source)Abnormal uterine and vaginal bleeding, unspecified; Translations: [ABNORMAL UTERINE VAGINAL BLEED UNS]Onset: 06-20-7926SyhujinNuwnc female genital disorders (3 sources)Abnormal uterine bleeding; Translations: [Abnormal uterine and vaginal bleeding, unspecified]ChronicOther female genital disorders (1 source)History of gynecological -16-6013YqigpjvkMjflx nervous system disorders (7 sources)Carpal tunnel syndrome of right wrist; Translations: [Carpal tunnel syndrome, right upper limb]69-39-8909AbyizjpFfjab non-traumatic joint disorders (3 sources)Ankle instability; Translations: [Other instability, left ankle] EpisodicOther non-traumatic joint disorders (3 sources)Arthralgia of the ankle and/or foot; Translations: [Pain in left ankle and joints of left foot]EpisodicOther nutritional; endocrine; and metabolic disorders (3 sources)Morbid obesity; Translations: [Morbid (severe) obesity due to excess calories]Onset: 30-84-7352GpdnvhlAkaom nutritional; endocrine; and metabolic disorders (3 sources)Body mass index 40+ - severely obese; Translations: [Body mass index (BMI) 40.0-44.9, adult]Onset: 64-82-1560ZroedrrEswoq nutritional; endocrine; and metabolic disorders (1 source)Upujnsa00-93-9164MgxhfjrXcrwl screening for suspected conditions (not mental disorders or infectious disease) (7 sources)Encounter for screening for malignant neoplasm of cervix; Translations: [Encounter for screening mammogram for malignant neoplasm of breast]Onset: 29-64-4869SgkuyekdLaadb skin disorders (7 sources)Mass of wrist; Translations: [Localized swelling, mass and lump, right upper limb]19-28-8285SzixoailUmtyk skin disorders (1 source)Localized swelling, mass and lump, right upper limb; Translations: [Localized swelling, mass and lump, right upper limb]Onset: 55-29-7712Tesocmeg Other upper respiratory infections (5 sources)Bacterial sinusitis; Translations: [Chronic sinusitis, unspecified] ChronicOther upper respiratory infections (13 sources)Acute sinusitis, unspecified; Translations: [Acute upper respiratory infection]Onset: 69-75-6046XamwxslhMugjpf media and related conditions (8 sources)Acute secretory otitis media; Translations: [Other acute nonsuppurative otitis media, right ear]Onset: 979943-44-0335Tcbnnyxy Ovarian cyst (3 sources)Cyst of left ovary; Translations: [Unspecified ovarian cyst, left side]Onset: 50-86-5331GrldoqfuBzxgvjdp codes; unclassified (3 sources)Postprocedural state finding; Translations: [Other specified postprocedural states]EpisodicSprains and strains (6 sources)Strain of left Achilles tendon; Translations: [Strain of left Achilles tendon, sequela]EpisodicUnclassified (1 source)Unknown / UNK(Unknown)Onset: 70-23-8553Ssapyyntbosc (3 sources)CONTACT W/AND (SUSP) EXPOS COVID-19; Translations: [CONTACT W/AND (SUSP) EXPOS COVID-19]Onset: 01-22-2022 Past or Other Problems Problem ClassificationProblemDateDocumented DateEpisodic/ChronicConditions associated with dizziness or vertigo (3 sources)Dizziness and giddiness; Translations: [Dizziness and giddiness] Onset: 51-15-7667HcrnbnppEmawgztmllhuz and screening for infectious disease (4 sources)Encounter for screening for human papillomavirus (HPV); Translations: [Vaccination given]Onset: 03-16-2018 Resolved: 49-34-7038KagqvazcVtmul and unspecified benign neoplasm (3 sources)Hemangioma of skin and subcutaneous tissue; Translations: [Hemangioma of skin and subcutaneous tissue]Onset: 85-53-2045KnjwdtehTamra endocrine disorders (3 sources)Disorder of pituitary gland; Translations: [Other disorders of pituitary gland]Onset: 10-31-2017 Resolved: 23-50-5385OlzlwlmCxwyu lower respiratory disease (3 sources)Cough; Translations: [Cough, unspecified]Onset: 07-24-2017 Resolved: 18-32-7823VpnseptzAzojt nutritional; endocrine; and metabolic disorders (3 sources)Abnormal weight gain; Translations: [Abnormal weight gain]Onset: 65-92-0713NskmigwwBbhdo upper respiratory disease (3 sources)Pain in throat; Translations: [Pain in throat]Onset: 11-03-2018 EpisodicOther upper respiratory disease (3 sources)Bleeding from nose; Translations: [Epistaxis]Onset: 09-29-2017 Resolved: 04-54-6263JxdrmursYxpixalj codes; unclassified (1 source)Family history of malignant neoplasm of breast; Translations: [FAMILY HX MALIG NEOPLASM OF BREAST]Onset: 86-82-0555XmzilzmsXnkeoxhi codes; unclassified (1 source)Family history of malignant neoplasm of trachea, bronchus and lung; Translations: [FAM HX MALIG NEOPLSM TRACH BRON LNG]Onset: 65-86-3244Bdltppvt Residual codes; unclassified (1 source)Family history of malignant neoplasm of other organs or systems; Translations: [FAM HX MALIG NEOPLASM OTH ORGN/SYS]Onset: 00-41-2138Cbdenpfe Residual codes; unclassified (1 source)Acquired absence of other specified parts of digestive tract; Translations: [ACQ ABSENCE OTH PART DIGESTV TRACT]Onset: 22-13-6879Isccgzko Spondylosis; intervertebral disc disorders; other back problems (4 sources)Pain in thoracic spine; Translations: [PAIN IN THORACIC SPINE]Onset: 44-19-9787LgjjooejBkgajuz (5 sources)Syncope and collapse; Translations: [Syncope and collapse]Onset: 33-75-5034YrhjyetsWphonenyaxgs (1 source)CONTACT W/AND (SUSP) EXPOS COVID-19; Translations: [CONTACT W/AND (SUSP) EXPOS COVID-19]Onset: 81-70-0875Hmxgrvrjkose (3 sources)Exposure to acute respiratory syndrome coronavirus 2; Translations: [Contact with and (suspected) exposure to COVID-19]Urinary tract infections (3 sources)Urinary tract infectious disease; Translations: [Urinary tract infection, site not specified]Onset: 31-39-2685CndgjwspWfcfc infection (3 sources)Coxsackie virus disease; Translations: [Coxsackievirus as the cause of diseases classified elsewhere]Onset: 68-36-0129SreognurRwjry infection (2 sources)COVID-19 Results Test NameValueInterpretationReference RangeFacilityX-ray reportOrdered By: Renny Long on 58-85-9049Kqjtj reportMER[facility] ST[facility] [address] [place] [address] XRay Report Signed Patient: Gladis Michael MR#: [id number] : 1975 Acct:[id number] Age/Sex: 49 / F ADM Date: 5 Loc: [facility] Room: Type: REG CLI Attending Dr: Luke Vora DO Copies to: Luke Vora DO~ Ordering Provider: Luke Vora DO Date of Service: 03/09/25 XR/XR wrist RT min 3V*: R22.31 - Localized swelling, mass and lump, right upper limb RIGHT WRIST - 4 views CLINICAL HISTORY: Right wrist KV and cisterns for one month. COMPARISON: None FINDINGS: No focal soft tissue abnormality. No acute bony process is seen. Minimal degenerative changes involving the carpus. No bony erosions. XR/XR wrist RT min 3V* IMPRESSION: MINIMAL DEGENERATIVE CHANGES INVOLVING THE CARPUS WITHOUT ACUTE BONY PROCESS. Impression dictated by: Renny Long Jr., D.OMary 03/09/2025 4:19 PM Dictation Location: [place] [address] Transcribed By: [facility] 03/09/251618 Dictated By: Renny Long Jr, DO 03/09/251618 Signed By: 03/09/25 1619 [facility]*on 84-44-8014VW wrist RT min 3V*[facility] [address] [place] [address] XRay Report Signed Patient: Gladis Michael MR#: [id number] : 1975 Acct:[id number] Age/Sex: 49 / F ADM Date: 03/09/25 Loc: [facility] Room: Type: [facility] CLI Attending Dr: Luke Vora DO Copies to: Luke Vora DO Ordering Provider: Luke Vora DO Date of Service: 03/09/25 XR/XR wrist RT min 3V*: R22.31 - Localized swelling, mass and lump, right upper limb RIGHT WRIST - 4 views CLINICAL HISTORY: Right wrist KV and cisterns for one month. COMPARISON: None FINDINGS: No focal soft tissue abnormality. No acute bony process is seen. Minimal degenerative changes involving the carpus. No bony erosions. XR/XR wrist RT min 3V* IMPRESSION: MINIMAL DEGENERATIVE CHANGES INVOLVING THE CARPUS WITHOUT ACUTE BONY PROCESS. Impression dictated by: Renny Long Jr., D.O. 03/09/2025 4:19 PM Dictation Location: [place] [address] Transcribed By: [facility] 03/09/251618 Dictated By: Renny Long Jr, DO 03/09/251618 Signed By: 03/09/25 1619[facility] Physician [id number] [id number] Snider, CNP reviewed patient's coronary CTA. I spoke with patient today and informed her of normal result. Tickler entered for 1 year follow up. Patient verbalized understanding.[facility] CORONARY W IV CONTRAST W OR WO FFRCTon 87-46-7304KIS HEART CORONARY W IV CONTRAST W OR WO FFRCTCTA HEART CORONARY W IV CONTRAST W OR WO FFRCT 12/14/2024 8:12 AM CLINICAL INDICATIONS: Chest pain. Abnormal cardiac stress test. Primary hypertension. TECHNOLOGIST COMMENTS: Chest pain QUESTION FOR RADIOLOGIST: Evaluate possibility of coronary artery stenosis PROTOCOL: Gated cardiac CTA and gated noncontrast calcium scoring CONTRAST: 100 mL Omnipaque 350 TECHNIQUE: Multidetector CT angiogram was obtained using retrospective ECG gating. Imaging was performed from the level of the clavicles to the level of the hemidiaphragms. In order to provide better evaluation of the anatomy and disease process, advanced off-line 3-D post-processing techniques, including 3-D volume rendered images, curving analysis of the coronary arteries, stenosis calculation and ejection fraction evaluation were performed. noncontrast gated calcium scoring study and heart flow roadmap overview were obtained. Medication administered in preparation for the examination is located in nursing documentation. All CT scans at this facility use dose modulation, iterative reconstruction, and/or weight based dosing when appropriate to reduce radiation dose to as low as reasonably achievable COMPARISON: None. CORONARY ARTERY ANGIOGRAM FINDINGS: Stenoses are reported as maximum percentage diameter stenosis. Stenosis grading is reported using the following scheme: Normal: no stenosis Mild: 1-49% stenosis Moderate: 50-70% stenosis Severe: >70% stenosis Occluded Dominance of the coronary artery system: right with normal origins and course. Left Main: The left main is a normal caliber vessel which gives rise to the LAD and circumflex arteries The left main with no significant plaque. No significant stenosis Left Anterior Descending Artery: The proximal left anterior descending artery and first diagonal branch with minimal plaque. The mid-distal LAD, D2 and D3 branches with minimal plaque. There is a short segment of myocardial bridge in the first diagonal branch segment. There is mild stenosis less than 20% in the mid LAD and also less than 20% in the mid first diagonal branch Left Circumflex Artery: The left circumflex artery and its obtuse marginal branches with minimal plaque. There is mild stenosis less than 25% in the obtuse marginal branch and less than 20% in the left circumflex Right Coronary Artery: The right coronary artery and acute marginal branches with minimal plaque. There is mild stenosis less than 25% in the proximal RCA and the vessel terminates as the PDA Cardiac Morphology: The right atrium is normal. The right ventricle is normal. The left atrium is normal. The left ventricle is normal. The pericardium is normal and there is no pericardial effusion. Cardiac Function: {reported only if retrospective ECG gating has been used} The calculated left ventricular ejection fraction is 67%, the left ventricular end-diastolic volume is 111 mL, and the left ventricular end-systolic volume is 37 mL. Stroke volume is 74 mL. There is normal wall motion of the left ventricle. Cardiac Devices and Indwelling Central Venous Lines: No central lines or pacer devices. EXTRACARDIAC FINDINGS: Other lung findings: Visualized part of the lungs appear unremarkable with minimal dependent atelectasis seen Airway: Unremarkable visualized part of the airways Pleura: No pleural effusion, thickening, or pneumothorax in visualized part of the pleura. Thoracic aorta and great vessels: Prominent ascending aorta with diameter of 3.5 cm which could be secondary to long-standing hypertension or may represent post aortic stenosis dilatation. No evidence of dissection Pulmonary arteries: Prominent pulmonary outflow tract was diameter of 2.9 cm raising possibility of pulmonary hypertension Heart and pericardium: Normal. Lymph nodes: No enlarged thoracic lymph nodes. Thoracic spine: Bony spurring in the thoracic spine suggesting mild spondylosis Chest wall: Normal. Visualized upper abdomen: Normal. Gated noncontrast calcium scoring did not reveal any significant calcification in the coronary arteries; left main with score of 0, LAD score of 0, left circumflex score of 0, RCA score of 0 and total calcium scoring of 0. Findings suggest unlikely possibility of significant coronary artery stenosis Roadmap overview by heart flow did not reveal any significant stenosis in the left main, LAD or RCA. There is mild stenosis suggested in the RCA. Therefore, FFR was not performed IMPRESSION: 1. Normal coronary CTA without evidence for significant coronary artery stenosis.. Total calcium scoring of 0 and therefore, possibility of significant coronary artery stenosis is not likely 2. Normal global and regional wall motion and function of the LV. Normal ejection fraction of 67% 3. Mild thoracic spondylosis 4. Prominent ascending aorta possibly from long-standing hypertension. Electronically signed: Waldemar Duarte (more content not included)...Invalid Interpretation CodeUnWadsworth-Rittman Hospital36on [id number] stress test result from 10/18/2024: Good morning Karon. Happy Friday. Can you order CTA Heart Coronary? For billing/diagnosis can use angina pectoris unspecified, other chest pain, chronic ischemic heart disease unspecified, primary hypertension. Reason: Persistent atypical chest pain with abnormal Lexiscan showing small reversible anteroapical defect. Unable to do treadmill due to Achilles injury. Let me know once it's ordered. I know she has hx of prior denials of echos and stress test want to make sure this gets pushed through thanks! Spoke with patient and made her aware. Order placed.NormalHolmes County Joel Pomerene Memorial HospitalOrders Onlyon [id number] [id number] Gladis Michael 1975 F Date Provider Department Center 10/22/2024 GONZALEZ MARQUEZ CARDIOLOGY None Family History Problem Relation Age of Onset No Known Problems Mother Cancer Father Cancer Brother Family Status - Relation Status Age at Mother Alive Father Sister Alive Brother DeceasedNormalUniversWayne HospitalOffice Visiton 14-25-3219Rwponu-up [id number] Gladis Michael 1975 F Date Provider Department Center 10/06/2024 [facility]QUE[facility] Family History Problem Relation Age of Onset No Known Problems Mother Cancer Father Cancer Brother Family Status - Relation Status Age at Mother Alive Father Sister Alive Brother Level of Service:24335 DC OFFICE/OUTPATIENT ESTABLISHED LOW MDM 20 [facility]XR Chest Single Viewon [id number] Chest Single ViewExam Date/Time: 10/01/2024 20:31 EDT Reason for Exam: [...] Blayne Romero DO Transcribed by: RAMANDEEP Technologist: [facility] CENTERJulisaestebanZanesville City HospitalBMPon [id number] gap [Moles/Vol]11 mmol/LNormal6-16[facility] Comment on above:Performed By: #### [id number] #### [facility] [address], [place] [address]Ofyjfau [Mass/Vol]9.7 mg/dLNormal8.9-11.1FMartin Memorial HospitalComment on above:Performed By: #### [id number] #### [facility] [address], [place] [address]Myvfbyuh [Moles/Vol]101 mmol/LLpzgxz408-539KzvghxZanesville City HospitalComment on above:Performed By: #### [id number] #### [facility] [address], [place] [address]SD9 [Moles/Vol]28 mmol/IXrglkj09-62DapxmiZanesville City Hospital Comment on above:Performed By: #### [id number] #### [facility] [address], [place] [address]Anwtaexarm [Mass/Vol]0.6 mg/dLNormal0.5-1.3FMartin Memorial HospitalComment on above:Performed By: #### [id number] #### [facility] [address], [place] [address]Blaplmz [Mass/Vol]112 mg/tILotscd46-099TidxspZanesville City HospitalComment on above:Performed By: #### [id number] #### [facility] [address], [place] [address]Zavhxifor [Moles/Vol]3.2 mmol/LLow3.5-5.3FMartin Memorial HospitalComment on above:Performed By: #### [id number] #### [facility] [address], [place] [address]Qmyxnu [Moles/Vol]137 mmol/ZWvojmt649-355MlgmdqZanesville City HospitalComment on above:Performed By: #### [id number] #### [facility] [address], [place] [address]Mxqm nitrogen [Mass/Vol]17 mg/dLNormal5-21Z[facility] City HospitalComment on above:Performed By: #### [id number] #### [facility] [address], [place] [address]Agtu nitrogen/Creatinine [Mass ratio]28 No IjdbrHsns74-52AzbhqfZanesville City HospitalComment on above:Performed By: #### [id number] #### [facility] [address], [place] [address]VGA w/ Auto Diffon 47-07-7480Qpupkybxw/100 WBC (Bld)1.4 %Normal 0.0-2.0Z[facility] City HospitalComment on above:Performed By: #### [id number] #### [facility] [address], [place] [address]Yalflsdso/Leukocytes Auto (Bld) [Pure # fraction]0.2 E9/LNormal 0.0-0.2FMartin Memorial HospitalComment on above:Performed By: #### [id number] #### [facility] [address], [place] [address]Dohiflakbso (Bld) [#/Vol]0.2 E9/LNormal0.0-0.5FMartin Memorial HospitalComment on above:Performed By: #### [id number] #### [facility] [address], [place] [address]Crlhyvcmyzd/100 WBC (Bld)1.6 %Normal0.0-8.0[facility] City HospitalComment on above:Performed By: #### [id number] #### [facility] [address], [place] [address]Jwiugaazpir distribution width (RBC) [Ratio]13.4 %Normal 10.9-14.2FMartin Memorial HospitalComment on above:Performed By: #### [id number] #### [facility] [address], [place] [address]Ihkxjkedlq (Bld) [Volume fraction]38.1 %Vrsyfx53.0-46.0Z[facility] City HospitalComment on above:Performed By: #### [id number] #### [facility] [address] [place] [address]Iieyuofqzo (Bld) [Mass/Vol]13.2 g/gAWnjjjy21.0-16.0[facility] City HospitalComment on above:Performed By: #### [id number] #### [facility] [address] [place] [address]Vyvriepctmp (Bld) [#/Vol]3.9 E9/LNormal1.0-4.0[facility] City HospitalComment on above:Performed By: #### [id number] #### [facility] [address] [place] [address]Ayqrsmhzxnr/100 WBC (Bld)30.4 %Uxfspl92.0-50.0[facility] City HospitalComment on above:Performed By: #### [id number] #### [facility] [address], [place] [address]HBI (RBC) [Entitic mass]28.1 orLefggg93.0-34.0[facility] City HospitalComment on above:Performed By: #### [id number] #### [facility] [address] [place] [address]XFAW (RBC) [Mass/Vol]34.5 g/dQMqzenq51.4-36.0[facility] City HospitalComment on above:Performed By: #### [id number] #### [facility] [address] [place] [address]PNL (RBC) [Entitic vol]81.5 vQAvnmfq77.0-100.0[facility] City HospitalComment on above:Performed By: #### [id number] #### [facility] [address] [place] [address]Hmsdpuoap (Bld) [#/Vol]0.7 E9/LNormal0.2-1.0[facility] City HospitalComment on above:Performed By: #### [id number] #### [facility] [address] [place] [address]Ybatkcunpnh (Bld) [#/Vol]7.9 E9/LHigh2.0-7.5FMartin Memorial HospitalComment on above:Performed By: #### [id number] #### [facility] [address] [place] [address]Tptsymcxwln/100 WBC (Bld)60.9 %Rzllln94.0-75.0[facility] City HospitalComment on above:Performed By: #### [id number] #### [facility] [address] [place] [address]Gainqlux mean volume (Bld) [Entitic vol]8.4 fLNormal6.4-10.8 [facility] City HospitalComment on above:Performed By: #### [id number] #### [facility] [address] [place] [address]Rslbepzaj (Bld) [#/Vol]443.0 E9/VTjkkgv509.0-500.0Z[facility] City HospitalComment on above:Performed By: #### [id number] #### [facility] [address] [place] [address]CZS (Bld) [#/Vol]4.7 E12/LNormal4.3-5.9[facility] City HospitalComment on above:Performed By: #### [id number] #### [facility] [address], [place] [address]FLO corrected for nucl RBC Auto (Bld) [#/Vol]13.0 E9/LHigh 4.0-11.0[facility] Hospitaler [facility] Psychiatric CenterComment on above:Performed By: #### [id number] #### [facility] [address], [place] [address]NJBXBLCVNVhdkkqi By: SYSTEM SYSTEM on 57-72-5445Aizdjyav HS2.80 pg/mLLow10.10 - 27.10 pg/mLRemisol ChemComment on above:Interpretive Data: The 95% CI (Confidence Interval) PPV (Positive Predictive Value) for myocardial i nfarction in females is 38 pg/mL, in males 51 pg/mL. The results should be used in conjunction withclinical conditions of myocardial infarction. (Access High Sensitivity Troponin I Instructions For Use, Marion Sal, January 2018)Anion gap [Moles/Vol]11 mmol/LNormal6 - 16 mEq/LRemisol ChemCalcium [Mass/Vol]9.7 mg/dLNormal8.9 - 11.1 mg/dLRemisol ChemChloride [Moles/Vol]101 mmol/YNqqrhs274 - 111 mmol/LRemisol ChemCO2 [Moles/Vol]28 mmol/MLxvpzg82 - 31 mmol/LRemisol ChemCreatinine [Mass/Vol]0.6 mg/dLNormal0.5 - 1.3 mg/dLRemisol UvpgxMRK040 mL/min/1.73 p8Mzrcem>=59mL/min/1.73 o4Cyqhfvn ChemGlucose [Mass/Vol] 112 mg/sXImylwy90 - 199 mg/dLRemisol ChemMagnesium [Mass/Vol]2.0 mg/dLNormal1.3 - 2.4 mg/dLRemisol ChemPotassium [Moles/Vol]3.2 mmol/LLow3.5 - 5.3 mmol/LRemisol ChemSodium [Moles/Vol]137 mmol/RAapqvn710 - 145 mmol/LRemisol ChemTroponin HS 3.20 pg/mLLow10.10 - 27.10 pg/mLRemisol ChemComment on above:Interpretive Data: The 95% CI (Confidence Interval) PPV (Positive Predictive Value) for myocardial infarction in females is 38 pg/mL, in males 51 pg/mL. The results should be used in conjunction withclinical conditions of myocardial infarction. (Access High Sensitivity Troponin I Instructions For Use, Marion Christine, January 2018)TSH Qn1.60 m[IU]/LNormal0.34 - 5.60 mcIU/mLRemisol ChemUrea nitrogen [Mass/Vol]17 mg/dLNormal5 - 21 mg/dLRemisol ChemUrea nitrogen/Creatinine [Mass ratio]28 mg/fkScjj21 - 20Remisol ChemCOAGULATIONOrdered By: Lisbet Moon on 14-39-6220rONF Coag (PPP) [Time]33.6 rUzqmgd43.1 - 36.5 second(s)[facility] Auto Coag Comment on above:Interpretive Data: Parameter 15 days - 4 weeks 1 - [...] the same coagulation reagent and instrumentation as [facility]. Currently there are no coagulation studies available worldwide for children to 14 days, andno normal ranges. Heparin therapeutic range (represented by Anti-Factor Xa activity of 0.2 - 0.4 U/mL) corresponds to PTT of 56.6 - 109.0 sec.INR Coag (PPP) [Relative time]1.06 {INR}Invalid Interpretation CodeJD MCCARTY [facility] Auto CoagComment on above:Interpretive Data: INR results are specifically intended to assess patients stabilized on long-term Anticoagulation therapy suggested INR s Less Intensive Anticoagulation 2.0 3.0 Conventional Range 3.0 4.5PT Coag (PPP) [Time]11.9 sNormal9.4 - 12.5 second(s) [facility] Auto CoagComment on above:Interpretive Data: 15 days - 4 weeks 1 - [...] the same coagulation reagent and instrumentation as [facility]. Currently there are no coagulation studies available worldwide for children to 14 days, andno normal ranges.ED Clinical Summaryon [id number] Clinical SummaryED Clinical Summary [place] [address] ED Clinical Summary Person Information Name: GLADIS MICHAEL [facility] Age: 49 Years : 1975 Sex: Female Language: Frisian PCP: KAILYN WAITE CNP Marital Status: Visit Id: Visit [...] 10/01/2024 22:11:57 10/01/2024 22:11:57 10/01/2024 22:11:57 ADDRESS: [address] [place] [phone] PHYS DOC NOTES: MEDICAL INFORMATION: Prescriptions Given: [...] every day. PATIENT EDUCATION INFORMATION: Instructions: Palpitations, Cnbb-mf-Ewwo; Nonspecific Chest Pain, Adult, Vpby-kz-Umwv; Hypokalemia Follow up: With: Address: When: KAILYN MARIANN [address] [facility] [place] [phone] Business (1) In 3 days 10/04/2024 Comments: Please follow-up with your primary care doctor for further evaluation management. Return to the ED for any new or worsening symptoms or if you have any concerns. DIAGNOSIS: Chest pain; Hypokalemia; PalpitationsNormalFisher Dat Medical CenterED Note-Physicianon 20-23-0140CZ Note-PhysicianED Note-Physician Basic Information Time Seen: Jeffy Das [...] she was driving and noted the pain morein the center of her and just inside [...] and Complexity of Problems Differential Diagnosis: [] [facility] Data External documents reviewed: [] My EKG [...] normal + 1 [X] <= Normal 0 [X] 0-3 Points 0.9 - 1.7% risk of major adverse cardiac event in 6 weeks [] 4-6 Points 12-16.6% risk of major adverse cardiac event in 6 weeks [] 7-10 Points 50-65% risk of major adverse cardiac event in 6 weeks [] 0-3 Points with 2 sets of negative cardiac markers <1% risk of major adverse cardiac event in30 days. Discussed with: [] Treatment and Disposition ED [...] On reevaluation patient is feeling improved. Patient's heartscore is a 2 therefore believe she is [...] Oxygen Saturation Oxygen The (more content not included)...[facility] Comment on above:Result Comment: Electronically Signed By: Jeffy Das DO\.br\Date and Time Signed: 10/01/24 21:59 EDTED Patient Summaryon [id number] Patient SummaryED Patient Summary [place] [id number] Patient Discharge Instructions Person Information Name: GLADIS MICHAEL Age: 49 Years Arrival Date: 10/01/2024 19:54:47 Discharge Diagnosis: Chest pain; Hypokalemia; Palpitations Primary Care Physician: KAILYN WAITE CNP Provider Information Primary Provider: Jeffy Das DO Advanced Fire Official:None The exam and treatment you received in the Emergency Department were for an urgent problem and are not intended as complete care. It is important that you follow up with a doctor, nurse practitioner,or physician???s nurses assistant for ongoing care. If your symptoms become worse or you do not improve asexpected and you are unable to reach your usual health care provider, you should return to the Emergency Department. We are available 24 hours a day. GLADIS MICHAEL has been given the following list of patient education materials, prescriptions and follow-up instructions: Follow-up Instructions: With: Address: When: KAILYN WAITE [address] [place] [phone] Business (1) In 3 days 10/04/2024 Comments: Please follow-up with your primary care doctor for further evaluation management. Return to the ED for any new or worsening symptoms or if you have any concerns. In the event that this physician does not participate in your insurance network, please consult with your insurance company to find a nearby participating provider. Patient Education Materials: Palpitations, Lfgg-ov-Styd; Nonspecific Chest Pain, Adult, Qing-fa-Osqj; Hypokalemia A MESSAGE TO ALL PATIENTS REGARDING OPIOIDS PRESCRIPTION OPIOIDS: WHAT YOU NEED TO KNOW Prescription opioids can be used to help relieve mjcbayha-al-ffvsgt pain and are often prescribed following a [...] toilet, following guidance from the Food and D(more content not included)... [facility] HealthHEMATOLOGYOrdered By: SYSTEM SYSTEM on 17-96-9925Hbnnwckse/100 WBC (Bld)1.4 %Normal0.0 - 2.0 %Remisol Heme Basophils/Leukocytes Auto (Bld) [Pure # fraction]0.2 E9/LNormal0.0 - 0.2 E9/L Remisol HemeEosinophils (Bld) [#/Vol]0.2 E9/LNormal0.0 - 0.5 E9/LRemisol Heme Eosinophils/100 WBC (Bld)1.6 %Normal0.0 - 8.0 %Remisol HemeErythrocyte distribution width (RBC) [Ratio]13.4 %Ygekvt73.9 - 14.2 %Remisol HemeHematocrit (Bld) [Volume fraction]38.1 %Mkkzkg56.0 - 46.0 %Remisol HemeHemoglobin (Bld) [Mass/Vol]13.2 g/jTDqhxus37.0 - 16.0 gm/dLRemisol HemeLymphocytes (Bld) [#/Vol] 3.9 E9/LNormal1.0 - 4.0 E9/LRemisol HemeLymphocytes/100 WBC (Bld)30.4 %Normal 14.0 - 50.0 %Remisol HemeMCH (RBC) [Entitic mass]28.1 foMamcjb31.0 - 34.0 pg Remisol HemeMCHC (RBC) [Mass/Vol]34.5 g/cCDhoicb13.4 - 36.0 gm/dLRemisol HemeMCV (RBC) [Entitic vol]81.5 yUClfjue91.0 - 100.0 fLRemisol HemeMonocytes (Bld) [#/Vol]0.7 E9/LNormal0.2 - 1.0 E9/LRemisol HemeMonocytes/100 WBC (Bld)5.7 % Normal4.0 - 14.0 %Remisol HemeNeutrophils (Bld) [#/Vol]7.9 E9/LHigh2.0 - 7.5 E9/LRemisol HemeNeutrophils/100 WBC (Bld)60.9 %Acuulw38.0 - 75.0 %Remisol Heme Platelet mean volume (Bld) [Entitic vol]8.4 fLNormal6.4 - 10.8 fLRemisol Heme Platelets (Bld) [#/Vol]443.0 E9/AZtivxx778.0 - 500.0 E9/LRemisol HemeRBC (Bld) [#/Vol]4.7 E12/LNormal4.3 - 5.9 E12/LRemisol HemeWBC corrected for nucl RBC Auto (Bld) [#/Vol]13.0 E9/LHigh4.0 - 11.0 E9/LRemisol HemeMagnesiumon 10-01-2024 Magnesium [Mass/Vol]2.0 mg/dLNormal1.3-2.4[facility] Psychiatric CenterComment on above:Performed By: #### [id number] #### [facility] [address], [place] [address]EU & PTTon 33-09-9547dWSF Coag (PPP) [Time]33.6 second(s)Normal 25.1-36.5FMartin Memorial HospitalComment on above:Result Comment: Parameter 15 days - 4 weeks 1 - [...] the same coagulation reagent and instrumentation as [facility]. Currently there are no coagulation studies available worldwide for children to 14 days, andno normal ranges. Heparin therapeutic range (represented by Anti-Factor Xa activity of 0.2 - 0.4 U/mL) corresponds to PTT of 56.6 - 109.0 sec.Performed By: #### [id number] #### [facility] [address], [place] [address]PLB Coag (PPP) [Relative time]1.06 {INR}Invalid Interpretation CodeZanesville City HospitalComment on above:Result Comment: INR results are specifically intended to assess patients stabilized on long-term Anticoagulation therapy suggested INR???s ???Less Intensive Anticoagulation??? 2.0 ??? 3.0 Conventional Range 3.0 ??? 4.5Performed By: #### [id number] #### [facility] [address], [place] [address]IJ Coag (PPP) [Time]11.9 second(s)Normal9.4-12.5FMartin Memorial HospitalComment on above:Result Comment: 15 days - 4 weeks 1 - [...] the same coagulation reagent and instrumentation as [facility]. Currently there are no coagulation studies available worldwide for children to 14 days, andno normal ranges.Performed By: #### [id number] #### [facility] [address], [place] [address]ONN With T4fr Reflexon 55-35-0905VXQ Qn1.60 m[IU]/LNormal 0.34-5.60[facility] City HospitalComment on above:Performed By: #### [id number] #### [facility] [address], [place] [address]Bumeujno 0 Hr.on 52-80-0521Xlzuxfyr HS3.20 pg/mLLow10.10-27.10 [facility] HospitalComment on above:Result Comment: The 95% CI (Confidence Interval) PPV (Positive Predictive Value) for myocardial infarction in females is 38 pg/mL, in males 51 pg/mL. The results should be used in conjunction with clinical conditions of myocardial infarction. (Access High Sensitivity Troponin I Instructions For Use, Marion Christine, January 2018)Performed By: #### [id number] #### [facility] [address], [place] [address]Pzzwcalk 1 Hr.on 00-96-0132Sshpmhqq HS2.80 pg/mLLow10.10-27.10 [facility] HospitalComment on above:Order Comment: 2111Result Comment: The 95% CI (Confidence Interval) PPV (Positive Predictive Value) for myocardial infarction in females is 38 pg/mL, in males 51 pg/mL. The results should be used in conjunction with clinical conditions of myocardial infarction. (Access High Sensitivity Troponin I Instructions For Use, Marion Christine, January 2018)Performed By: #### [id number] #### [facility] [address], [place] [address]gTZLxe 32-34-4630zEPQ414 mL/min/1.73 a2Mtgkub>=59[facility] Psychiatric CenterComment on above:Performed By: #### [id number] #### [facility] [address], [place] [address]Qwkwwk Visiton 66-89-7606Dtfabv-up [id number] Gladis Michael 1975 F Date Provider Department Center 04/08/2024 [facility]8-GERALD MANCINI [facility] Family History Problem Relation Age of Onset No Known Problems Mother No Known Problems Father Family Status - Relation Status Age at Mother Father Level of Service:94440 DC OFFICE/OUTPATIENT ESTABLISHED MOD MDM 30 [facility] HospitalCBC AUTO DIFFon 95-61-2835WPKA #0.1 103/ul Normal0.0-0.1[facility] HospitalComment on above:Performed By: #### UAMIC #### [facility] [address] [place] [address] Dr. Kristen Cohensophils/100 WBC (Bld)0.9 %Normal0.2-2.0[facility] Comment on above:Performed By: #### UAMIC #### [facility] [address] [place] [address] Dr. Kristen Jimenez #0.1 103/ulNormal0.0-0.7The [facility] HospitalComment on above: Performed By: #### UAMIC #### [facility] [address] [place] [address] Dr. Kristen Velasquezosinophils/100 WBC (Bld)1.1 %Normal0.9-7.0[facility] Comment on above:Performed By: #### UAMIC #### [facility] [address] [place] [address] Dr. Yilan ChangErythrocyte distribution width (RBC) [Ratio]13.2 %Rltsxi97.0-15.0 The [facility] HospitalComment on above:Performed By: #### UAMIC #### [facility] [address] [place] [address] Dr. Kristen GambinoHematocrit (Bld) [Volume fraction]41.2 %Dtxoiq64.0-48.0The [facility] HospitalComment on above:Performed By: #### UAMIC #### [facility] [address] [place] [address] Dr. Kristen GambinoHemoglobin (Bld) [Mass/Vol]13.8 g/mWEdqowk05.0-16.0The [facility] HospitalComment on above:Performed By: #### UAMIC #### [facility] [address] [place] [address] Dr. Kristen GambinoIG #0.03 10e3/ulNormal0.00-0.03The [facility] HospitalComment on above:Performed By: #### UAMIC #### [facility] [address] [place] [address] Dr. Kristen Weaver %0.2 %Normal0.0-0.5The [facility] HospitalComkalamazoo psychiatric hospital on above: Performed By: #### UAMIC #### [facility] [facility] [address] [place] [address] Dr. Kristen RileyH #3.5 103/ulNormal1.2-3.8The [facility] HospitalComment on above:Performed By: #### UAMIC #### [facility] [address] [place] [address] Dr. Kristen Montielmphocytes/100 WBC (Bld)28.4 %Bgrdti13.5-60.0The [facility] HospitalComment on above:Performed By: #### UAMIC #### [facility] [address] [place] [address] Dr. Kristen GambinoMANUAL DIFF REQNONormalThe [facility] HospitalComment on above: Performed By: #### UAMIC #### [facility] [address] [place] [address] Dr. Kristen Dominguez (RBC) [Entitic mass]27.8 piOroygy07.7-34.0The [facility] HospitalComment on above:Performed By: #### UAMIC #### [facility] [address] [place] [address] Dr. Kristen Dominguez (RBC) [Mass/Vol]33.5 g/fDZepejj10.9-35.2The [facility] HospitalComment on above:Performed By: #### UAMIC #### [facility] [address] [place] [address] Dr. Kristen DominguezV (RBC) [Entitic vol]82.9 fSMpqsav88.0-99.0The [facility] HospitalComment on above:Performed By: #### UAMIC #### [facility] [address] [place] [address] Dr. Kristen Powell #0.9 103/ulCritically high0.3-0.8The [facility] Comment on above:Performed By: #### UAMIC #### [facility] [address] [place] [address] Dr. Kristen Bagleyocytes/100 WBC (Bld)7.0 %Normal1.7-12.0The [facility] Comment on above:Performed By: #### UAMIC #### [facility] [address] [place] [address] Dr. Kristen Kim #7.8 103/ulCritically high1.4-6.5The [facility] Comment on above:Performed By: #### UAMIC #### [facility] [address] [place] [address] Dr. Kristen Da Silvautrophils/100 WBC (Bld)62.4 %Iqfrvb83.0-75.0The [facility] HospitalComment on above:Performed By: #### UAMIC #### [facility] [address] [place] [address] Dr. Kristen Arriola mean volume (Bld) [Entitic vol]9.6 fLNormal9.5-13.5The [facility] HospitalComment on above:Performed By: #### UAMIC #### [facility] [address] [address] [address] Kristen GambinoPLT409 103/whKuzpuy124-844Fdb [facility] HospitalComment on above: Performed By: #### UAMIC #### [facility] [address] [address] [address] Kristen GambinoRBC4.97 106/ulNormal4.20-5.40The [facility] HospitalComment on above:Performed By: #### UAMIC #### [facility] [address] [address] [address] Kristen GambinoWBC12.5 103/ulCritically high4.0-11.0The [facility] HospitalComment on above:Performed By: #### UAMIC #### [facility] [address] [place] [address] Dr. Kristen GambinoCT HEAD WO CONon [id number] HEAD WO CONEXAMINATION: CT HEAD WO CON, 09/22/2022 10:07 PM [...] Electronically authenticated by: TERRI LANDAVERDE Date: 2022-09-22 23:00[facility] CampusPROF 14(COMP METB)on [id number] [Mass/Vol]3.5 g/dLNormal 3.4-5.0The [facility] HospitalComment on above:Performed By: #### CVDTBH #### [facility] [address] [place] [address] Dr. Kristen GambinoAlbumin/Globulin [Mass ratio]0.8 {ratio}NormalThe [facility] HospitalComment on above:Performed By: #### CVDTBH #### [facility] [address] [place] [address] Dr. Kristen Madrid [Catalytic activity/Vol]67 U/YUcppxd01-399Boi [facility] HospitalComment on above:Performed By: #### CVDTBH #### [facility] [address] [place] [address] Dr. Kristen June [Catalytic activity/Vol]29 U/VHmrffb54-00Zox [facility] HospitalComment on above:Performed By: #### CVDTBH #### [facility] [address] [place] [address] Dr. Kristen Rojo gap [Moles/Vol]12.0 mmol/LNormalThe [facility] Comment on above:Performed By: #### CVDTBH #### [facility] [address] [place] [address] Dr. Kristen GambinoAST [Catalytic activity/Vol]17 U/MYfmohm90-87Dmx [facility] HospitalComment on above:Performed By: #### CVDTBH #### [facility] [address] [place] [address] Dr. Kristen GambinoBilirubin [Mass/Vol]0.4 mg/dLNormal0.2-1.0The [facility] Comment on above:Performed By: #### CVDTBH #### [facility] [address] [place] [address] Dr. Kristen GambinoCalcium [Mass/Vol]9.5 mg/dLNormal8.5-10.1The [facility] Comment on above:Performed By: #### CVDTBH #### [facility] [address] [address] [address] Kristen GambinoChloride [Moles/Vol]101 mmol/VMlgzuz24-720Jzp [facility] Comment on above:Performed By: #### CVDTBH #### [facility] [address] [address] [address] Kristen GambinoCO2 [Moles/Vol]28.9 mmol/MOnimho97.0-32.0The [facility] Comment on above:Performed By: #### CVDTBH #### [facility] [address] [place] [address] Dr. Kristen GambinoCreatinine [Mass/Vol]0.60 mg/dLNormal0.55-1.02The [facility] HospitalComment on above:Performed By: #### CVDTBH #### [facility] [address] [place] [address] Dr. Kristen VelasquezGFR-AF CENTRAL AFRICAN>60Normal>=60The [facility] HospitalComment on above:Performed By: #### CVDTBH #### [facility] [address] [place] [address] Dr. Kristen VelasquezGFR-NON AF CENTRAL AFRICAN>60Normal>=60The [facility] HospitalComment on above:Performed By: #### CVDTBH #### [facility] [address] [place] [address] Dr. Kristen GambinoGlobulin (S) [Mass/Vol]4.5 g/dLNormalThe [facility] HospitalComment on above:Performed By: #### CVDTBH #### [facility] [address] [address] [address] Kristen GambinoGlucose [Mass/Vol]108 mg/dLCritically knzz65-059Cuw [facility] HospitalComment on above:Performed By: #### CVDTBH #### [facility] [address] [place] [address] Dr. Kristen GambinoPotassium [Moles/Vol]3.9 mmol/LNormal3.5-5.1The [facility] Comment on above:Performed By: #### CVDTBH #### [facility] [address] [place] [address] Dr. Kristen GambinoProtein [Mass/Vol]8.0 g/dLNormal6.4-8.2The [facility] Comment on above:Performed By: #### CVDTBH #### [facility] [address] [place] [address] Dr. Kristen GambinoSodium [Moles/Vol]138 mmol/DAytulv647-765Vfe [facility] Comment on above:Performed By: #### CVDTBH #### [facility] [address] [place] [address] Dr. Kristen GambinoUrea nitrogen [Mass/Vol]10.0 mg/dLNormal7.0-18.0The [facility] HospitalComment on above:Performed By: #### CVDTBH #### [facility] [address] [place] [address] Dr. Kristen Watkins nitrogen/Creatinine [Mass ratio]16.7 mg/mgNoClinton Memorial HospitalComment on above:Performed By: #### CVDTBH #### [facility] [address] [place] [address] Dr. Kristen Louis ACOG PANEL 2: 30 to 65on 08-15-2022..NormalThe [facility] HospitalComment on above:Result Comment: Performed at: WBPerformed By: #### [id number] #### [facility] [address] [place] [address] Dr. Kristen Lewis Gdln ACOG Bfgkqvt18-13HxjbdlAfbClinton Memorial HospitalComment on above:Performed By: #### [id number] #### [facility] [address] [place] [address] Dr. Kristen GambionDIAGNOSIS:CommentSumma Health Barberton CampusComment on above: Result Comment: NEGATIVE FOR INTRAEPITHELIAL LESION OR MALIGNANCY. Performed at: WBPerformed By: #### [id number] #### [facility] [address] [place] [address] Dr. Kristen Zacarias AptimaNegativeNormalNegativeSt. Elizabeth Hospital on above:Result Comment: This nucleic acid amplification test detects fourteen high-risk HPV types (16,18,31,33,35,39,45,51,52,56,58,59,66,68) without differentiation. Performed at: =GPerformed By: #### [id number] #### [facility] [address] [place] [address] Dr. Kristen Zacarias Genotype ReflexCommentLake County Memorial Hospital - West on above:Result Comment: Criteria not met, HPV Genotype not performed. Performed at: WBPerformed By: #### [id number] #### [facility] [address] [place] [address] Dr. Kristen GambinoMethodology:CommentNoUniversity Hospitals Parma Medical Center on above: Result Comment: This liquid based ThinPrep(R) pap test was screened with the use of an image guided system. Performed at: WBPerformed By: #### [id number] #### [place] [address] [address] Kristen GambinoNote:CommentNoUniversity Hospitals Parma Medical Center on above:Result Comment: The Pap smear is a screening test designed to aid in the detection of premalignant and malignant conditions of the uterine cervix. It is not a diagnostic procedure and should not be used as the sole means of detecting cervical cancer. Both false-positive and false-negative reports do occur. . Performed at: WBPerformed By: #### [id number] #### [facility] [address] [place] [address] Dr. Kristen GambinoPerformed by:CommentNoUniversity Hospitals Parma Medical Center on above: Result Comment: Bridget Romo, Marriage And Family Social Worker (ASCP) Performed at: WBPerformed By: #### [id number] #### [facility] [address] [place] [address] Dr. Kristen GambinoSpecimen adequacy:CommentNormalThe Jerzy HospitalComment on above:Result Comment: Satisfactory for evaluation. Endocervical and/or squamous metaplastic cells (endocervical component) are present. Performed at: WBPerformed By: #### [id number] #### [facility] [address] [place] [address] Dr. Kristen GambinoUS PELVIS AND TRANSVAGon [id number] PELVIS AND TRANSVAG EXAMINATION: US PELVIS AND [...] Electronically authenticated by: TERRI DELANEY Date: 2022-08-14 07:35[facility] CampusCULTURE URINEon [id number] URINEIsolate 1 Pseudomonas aeruginosa <10,000 cfu/mL of ORGANISM 1 Pseudomonas aeruginosa ANTIBIOTIC M.I.C RX STATUS Piperacillin/Tazobactam <=4 S F Ceftazidime 2 S F Imipenem 2 S F Amikacin <=2 S F Gentamicin <=1 S F Tobramycin <=1 S F Ciprofloxacin <=0.25 S F Levofloxacin 0.25 S FNormalThe [facility] HospitalComment on above:Performed By: #### UAMIC #### [facility] [address] [place] [address] [id number] [address] Kristen GambinoMG MAMM SCREEN 3D ARCHIE CADon [id number] MAMM SCREEN 3D ARCHIE CAD Patient: GLADIS MICHAEL Exam Date: 03/06/2022 : 1975 Gender:F Ordering : [facility] Admission #: [id number] Family : Order #: [id number] CLICK HERE TO VIEW EXAM RADIOLOGY REPORT [...] at age 41. LOCATION: [facility] BREAST COMPOSITION: Scattered areas fibroglandular density. [...] by: Shade Romo MD on 03/06/2022 at 14:25NoClinton Memorial Hospital Covid-19 PCR (CVDTBH)on [id number]-CoV-2 (COVID-19) RNA GARTH+probe Ql (Unsp spec)Not detectedNormalNOT DETECTEDThe [facility] HospitalComment on above:Result Comment: This test is not yet approved or cleared by the [place] FDA. When there are no FDA-approved or cleared tests available, and other criteria are met, FDA can make tests available under an emergency access mechanism called an Emergency Use Authorization (EUA). The EUA for this test is supported by the Industrial Electrical Technician of Health and Human Service's (HHS's) declaration [...] of clinical signs and symptoms consistent with SARS-CoV-2.Performed By: #### CVDTBH #### [facility] [address] [place] [address] Dr. Kristen Sexton URINEon [id number] URINECulture Observations: Called Group B Strep to Martha Robbins LPN Isolate 1 Streptococcus agalactiae 35,000 cfu/mL of ORGANISM 1 Streptococcus agalactiae ANTIBIOTIC M.I.C RX STATUS Benzylpenicillin <=0.06 S F Ampicillin <=0.25 S F Cefotaxime <=0.12 S F Ceftriaxone <=0.12 S F Levofloxacin 0.5 S F Erythromycin 2 R F Clindamycin <=0.25 S F Linezolid <=2 S F Vancomycin 0.5 S F Tetracycline >=16 R FNormalThe [facility] HospitalComment on above:Performed By: #### UAMIC #### [facility] [address] [place] [address] Dr. Kristen Mathis AUTO DIFFon [id number] #0.2 103/ulCritically high0.0-0.1 The [facility] HospitalComment on above:Performed By: #### CBC #### [facility] [address] [place] [address] Dr. Kristen GambinoBasophils/100 WBC (Bld)1.3 %Normal0.2-2.0The [facility] Comment on above:Performed By: #### CBC #### [facility] [address] [place] [address] Dr. Peterson ChangEClaudette #0.3 103/ulNormal0.0-0.7The [facility] HospitalComment on above: Performed By: #### CBC #### [facility] [address] [place] [address] Dr. Kristen Velasquezosinophils/100 WBC (Bld)1.9 %Normal0.9-7.0The [facility] Comment on above:Performed By: #### CBC #### [facility] [address] [place] [address] Dr. Kristen Velasquezrythrocyte distribution width (RBC) [Ratio]13.4 %Surkyz04.0-15.0 The [facility] HospitalComment on above:Performed By: #### CBC #### [facility] [address] [place] [address] Dr. Kristen GambinoHematocrit (Bld) [Volume fraction]41.3 %Rdavrq91.0-48.0The [facility] HospitalComment on above:Performed By: #### CBC #### [facility] [address] [place] [address] Dr. Kristen GambinoHemoglobin (Bld) [Mass/Vol]13.6 g/rBHxccyt04.0-16.0The [facility] HospitalComment on above:Performed By: #### CBC #### [facility] [address] [place] [address] Dr. Kristen Weaver #0.07 10e3/ulCritically high0.00-0.03The [facility] Comment on above:Performed By: #### CBC #### [facility] [address] [place] [address] Dr. Kristen Weaver %0.4 %Normal0.0-0.5The [facility] HospitalComment on above: Performed By: #### CBC #### [facility] [address] [place] [address] Dr. Kristen MontielMPH #3.6 103/ulNormal1.2-3.8The [facility] HospitalComment on above:Performed By: #### CBC #### [facility] [address] [place] [address] Dr. Kristen Montielmphocytes/100 WBC (Bld)22.4 %Mdnpyy74.5-60.0The [facility] HospitalComment on above:Performed By: #### CBC #### [facility] [address] [place] [address] Dr. Kristen Akins DIFF REQNONormalThe [facility] HospitalComment on above: Performed By: #### CBC #### [facility] [address] [place] [address] Dr. Kristen Dominguez (RBC) [Entitic mass]27.8 dnEuthid15.7-34.0The [facility] HospitalComment on above:Performed By: #### CBC #### [facility] [address] [place] [address] Dr. Kristen Dominguez (RBC) [Mass/Vol]32.9 g/bRFhbdvt59.9-35.2The [facility] HospitalComment on above:Performed By: #### CBC #### [facility] [address] [place] [address] Dr. Kristen Dominguez (RBC) [Entitic vol]84.5 gNYndwyf66.0-99.0[facility] HospitalComment on above:Performed By: #### CBC #### [facility] [address] [place] [address] Dr. Kristen Powell #1.1 103/ulCritically high0.3-0.8ThOur Lady of Mercy Hospital Comment on above:Performed By: #### CBC #### [facility] [address] [place] [address] Dr. Kristen Bagleyocytes/100 WBC (Bld)7.0 %Normal1.7-12.0[facility] Comment on above:Performed By: #### CBC #### [facility] [address] [place] [address] Dr. Kristen Kim #10.7 103/ulCritically high1.4-6.5ThOur Lady of Mercy Hospital Comment on above:Performed By: #### CBC #### [facility] [address] [place] [address] Dr. Kristen Da Silvautrophils/100 WBC (Bld)67.0 %Rlxzud64.0-75.0The [facility] HospitalComment on above:Performed By: #### CBC #### [facility] [address] [place] [address] Dr. Kristen GambinoPlatelet mean volume (Bld) [Entitic vol]9.3 fLCritically low 9.5-13.5The [facility] on above:Performed By: #### CBC #### [facility] [address] [place] [address] Dr. Kristen GambinoPLT502 103/ulCritically rzbo943-225Lhe [facility] on above:Performed By: #### CBC #### [facility] [address] [place] [address] Dr. Kristen GambinoRBC4.89 106/ulNormal4.20-5.40The [facility] on above:Performed By: #### CBC #### [facility] [address] [place] [address] Dr. Kristen GambinoWBC16.0 103/ulCritically high4.0-11.0The [facility] on above:Performed By: #### CBC #### [facility] [address] [place] [address] Dr. Kristen GambinoPROF 14(COMP METB)on [id number] [Mass/Vol]4.0 g/dLNormal 3.4-5.0The [facility] on above:Performed By: #### CMP #### [facility] [address] [place] [address] Dr. Kristen GambinoAlbumin/Globulin [Mass ratio]0.9 {ratio}NormalThe [facility] on above:Performed By: #### CMP #### [facility] [address] [place] [address] Dr. Kristen Madrid [Catalytic activity/Vol]72 U/VOudpmh24-908Hbt [facility] on above:Performed By: #### CMP #### [facility] [address] [place] [address] Dr. Kristen DillonT [Catalytic activity/Vol]45 U/BMleiqh42-22Sca [facility] on above:Performed By: #### CMP #### [facility] [address] [address] [address] Kristen Ruizon gap [Moles/Vol]12.4 mmol/LNormalThe [facility] Comment on above:Performed By: #### CMP #### [facility] [address] [address] [address] Kristen GambinoAST [Catalytic activity/Vol]31 U/UOwvvhr93-07Jyv [facility] HospitalComment on above:Performed By: #### CMP #### [facility] [address] [address] [address] Kristen GambinoBilirubin [Mass/Vol]0.6 mg/dLNormal0.2-1.0The [facility] Comment on above:Performed By: #### CMP #### [facility] [address] [address] [address] Kristen GambinoCalcium [Mass/Vol]9.2 mg/dLNormal8.5-10.1[facility] Comment on above:Performed By: #### CMP #### [facility] [address] [address] [address] Kristen GambinoChloride [Moles/Vol]101 mmol/AInpinr24-074Uos [facility] Comment on above:Performed By: #### CMP #### [facility] [address] [address] [address] Kristen GambinoCO2 [Moles/Vol]26.3 mmol/CTdauwq11.0-32.0The [facility] Comment on above:Performed By: #### CMP #### [facility] [address] [address] [address] Kritsen GambinoCreatinine [Mass/Vol]0.74 mg/dLNormal0.55-1.02The [facility] HospitalComment on above:Performed By: #### CMP #### [facility] [address] [address] [address] Peterson ChangEGFR-AF CENTRAL AFRICAN>60Normal>=60The [facility] HospitalComment on above:Performed By: #### CMP #### [facility] [address] [address] [address] Kristen VelasquezGFR-NON AF CENTRAL AFRICAN>60Normal>=60The [facility] HospitalComment on above:Performed By: #### CMP #### [facility] [address] [address] [address] Kristen GambinoGlobulin (S) [Mass/Vol]4.4 g/dLNormSelect Medical Specialty Hospital - ColumbusComment on above:Performed By: #### CMP #### [facility] [address] [address] [address] Kristen GambinoGlucose [Mass/Vol]106 mg/gPQndsru94-693Jsr [facility] Comment on above:Performed By: #### CMP #### [facility] [address] [address] [address] Kristen GambinoPotassium [Moles/Vol]3.7 mmol/LNormal3.5-5.1The [facility] Comment on above:Performed By: #### CMP #### [facility] [address] [place] [address] Dr. Kristen GambinoProtein [Mass/Vol]8.4 g/dLCritically high6.4-8.2The [facility] HospitalComment on above:Performed By: #### CMP #### [facility] [address] [place] [address] Dr. Kristen GambinoSodium [Moles/Vol]136 mmol/AAuwlms661-096Pnw [facility] Comment on above:Performed By: #### CMP #### [facility] [address] [place] [address] Dr. Kristen GambinoUrea nitrogen [Mass/Vol]14.0 mg/dLNormal7.0-18.0The [facility] HospitalComment on above:Performed By: #### CMP #### [facility] [address] [place] [address] Dr. Kristen Watkins nitrogen/Creatinine [Mass ratio]18.9 mg/mgNormalThOur Lady of Mercy HospitalComment on above:Performed By: #### CMP #### [facility] [address] [place] [address] Dr. Kristen Hancock RANDOM W/MICROSCOPICon [id number]F SEENMercy Health St. Charles HospitalComkalamazoo psychiatric hospital on above:Performed By: #### UAMIC #### [facility] [address] [address] [address] Kristen Leonard Ql (U)NegativeNormalNEGATIVEOhiohealth Pickerington Methodist Hospital on above:Performed By: #### UAMIC #### [facility] [address] [address] [address] Kristen Falk OX CRYSTALSMODERATESumma Health Barberton CampusComment on above:Performed By: #### UAMIC #### [facility] [address] [address] [address] Kristen GarciaNONE SEENNormalNONE SEENSt. Elizabeth Hospital on above:Performed By: #### UAMIC #### [facility] [address] [address] [address] Kristen Chawla (U)CLEARNormalCLEARMercy Health St. Charles HospitalComment on above: Performed By: #### UAMIC #### [facility] [address] [address] [address] Kristen Boucher (U)YELLOWNormalYELLOWMercy Health St. Charles HospitalComkalamazoo psychiatric hospital on above: Performed By: #### UAMIC #### [facility] [address] [address] [address] Kristen GambinoCrystals LM Nom (Urine sed)SEENAbnormalNONE SEENSt. Elizabeth Hospital on above:Performed By: #### UAMIC #### [facility] [address] [address] [address] Peterson ChangEpithelial cells LM Ql (Urine sed)MODERATEAbnormalNONE SEEN /RARE The [facility] HospitalComkalamazoo psychiatric hospital on above:Performed By: #### UAMIC #### [facility] [address] [address] [address] Kristen Barthose Ql (U)NegativeNormalNEGATIVEMercy Health St. Charles HospitalComkalamazoo psychiatric hospital on above:Performed By: #### UAMIC #### [facility] [address] [address] [address] Kristen GambinoHemoglobin Ql (U)NegativeNormalNEGATIVEMercy Health St. [facility] Hospital Comment on above:Performed By: #### UAMIC #### [facility] [address] [address] [address] Kristen GambinoKetones Ql (U)NegativeNormalNEGATIVEMercy Health St. Charles HospitalComment on above:Performed By: #### UAMIC #### [facility] [address] [address] [address] Kristen GambinoLEUKOCYTESSMALLAbnormalNEGATIVEThe [facility] HospitalComment on above:Performed By: #### UAMIC #### [facility] [address] [place] [address] Dr. Kristen GambinoMUCOUSSMALLAbnormalNONE SEENMercy Health St. Charles HospitalComment on above:Performed By: #### UAMIC #### [facility] [address] [place] [address] Dr. Kristen GambinoNitrite Ql (U)NegativeNormalNEGATIVEMercy Health St. Charles HospitalComment on above:Performed By: #### UAMIC #### [facility] [address] [place] [address] Dr. Kristen GambinopH (U)5.0 [pH]Normal5-9Mer[facility] St[facility] Charles HospitalComment on above: Performed By: #### UAMIC #### [facility] [address] [address] [address] Kristen GambinoRBCNONE SEENAbnormal0-2The [facility] HospitalComment on above: Performed By: #### UAMIC #### [facility] [address] [place] [address] Dr. Kristen GambinoSPEC GRAVITY>=1.788Wytlzwhe1.005-<=1.025The [facility] Comment on above:Performed By: #### UAMIC #### [facility] [address] [place] [address] Dr. Kristen GambinoUA PROTEINNegativeNormalNEGATIVE/ TRACEThe [facility] Comment on above:Performed By: #### UAMIC #### [facility] [address] [address] [address] Kristen Eckert Qn (U)0.2 {Sonya'U}/dLNormal0.2 - 1.0The [facility] HospitalComment on above:Performed By: #### UAMIC #### [facility] [address] [place] [address] Dr. Kristen GambinoWBC5-10AbnormalNONE SEENThe [facility] HospitalComment on above: Performed By: #### UAMIC #### [facility] [address] [place] [address] Dr. Kristen GambinoXR TSPINE 2 VIEWSon [id number] TSPINE 2 VIEWSEXAMINATION: XR TSPINE 2 VIEWS HISTORY: Thoracic back pain COMPARISON: [...] Electronically authenticated by: TERRI DELANEY Date: 2022-01-11 07:[facility] AUTO DIFFon [id number] #0.1 103/ulNormal0.0-0.1The [facility] HospitalComment on above:Performed By: #### CBC #### [facility] [address] [place] [address] Dr. Kristen GambinoBasophils/100 WBC (Bld)1.0 %Normal0.2-2.0The [facility] Comment on above:Performed By: #### CBC #### [facility] [address] [place] [address] Dr. Kristen Jimenez #0.1 103/ulNormal0.0-0.7The [facility] HospitalComment on above: Performed By: #### CBC #### [facility] [address] [place], [place] [id number] Dr. Kristen Velasquezosinophils/100 WBC (Bld)1.0 %Normal0.9-7.0The [facility] Comment on above:Performed By: #### CBC #### [facility] [address] [place] [address] Dr. Kristen Velasquezrythrocyte distribution width (RBC) [Ratio]13.2 %Tjvbnp55.0-15.0 The [facility] HospitalComment on above:Performed By: #### CBC #### [facility] [address] [place] [address] Dr. Kristen GambinoHematocrit (Bld) [Volume fraction]42.5 %Bhtzuf88.0-48.0The [facility] HospitalComment on above:Performed By: #### CBC #### [facility] [address] [place] [address] Dr. Kristen GambinoHemoglobin (Bld) [Mass/Vol]13.6 g/uLOlsino99.0-16.0The [facility] HospitalComment on above:Performed By: #### CBC #### [facility] [address] [place] [address] Dr. Kristen Weaver #0.05 10e3/ulCritically high0.00-0.03The [facility] Comment on above:Performed By: #### CBC #### [facility] [address] [place] [address] Dr. Kristen Weaver %0.4 %Normal0.0-0.5The [facility] HospitalComment on above: Performed By: #### CBC #### [facility] [address] [place] [address] Dr. Kristen RileyH #2.5 103/ulNormal1.2-3.8The [facility] HospitalComment on above:Performed By: #### CBC #### [facility] [address] [place] [address] Dr. Kristen Montielmphocytes/100 WBC (Bld)20.2 %Critically low20.5-60.0The [facility] HospitalComment on above:Performed By: #### CBC #### [facility] [address] [place] [address] Dr. Kristen Akins DIFF REQNONormalThe [facility] HospitalComment on above: Performed By: #### CBC #### [facility] [address] [place] [address] Dr. Kristen Dominguez (RBC) [Entitic mass]27.2 fkYtgnik47.7-34.0The [facility] HospitalComment on above:Performed By: #### CBC #### [facility] [address] [place] [address] Dr. Kristen Dominguez (RBC) [Mass/Vol]32.0 g/eUCwwokd55.9-35.2The [facility] HospitalComment on above:Performed By: #### CBC #### [facility] [address] [place] [address] Dr. Kristen Dominguez (RBC) [Entitic vol]85.0 kPSmnnrv73.0-99.0The [facility] HospitalComment on above:Performed By: #### CBC #### [facility] [address] [place] [address] Dr. Kristen Powell #0.7 103/ulNormal0.3-0.8The [facility] HospitalComment on above:Performed By: #### CBC #### [facility] [address] [place] [address] Dr. Kristen Bagleyocytes/100 WBC (Bld)5.7 %Normal1.7-12.0[facility] Comment on above:Performed By: #### CBC #### [facility] [address] [place] [address] Dr. Kristen Kim #9.0 103/ulCritically high1.4-6.5The [facility] Comment on above:Performed By: #### CBC #### [facility] [address] [place] [address] Dr. Kristen Da Silvautrophils/100 WBC (Bld)71.7 %Btiqkp86.0-75.0The [facility] HospitalComment on above:Performed By: #### CBC #### [facility] [address] [address] [address] Kristen Arriola mean volume (Bld) [Entitic vol]9.2 fLCritically low 9.5-13.5The [facility] HospitalComkal[facility] psychiatric hospital on above:Performed By: #### CBC #### [facility] [address] [place] [address] Dr. Kristen GambinoPLT413 103/apPaikwn316-399Bex [facility] HospitalComment on above: Performed By: #### CBC #### [facility] [address] [place] [address] Dr. Kristen GambinoRBC5.00 106/ulNormal4.20-5.40The [facility] on above:Performed By: #### CBC #### [facility] [address] [place] [address] Dr. Kristen GambinoWBC12.5 103/ulCritically high4.0-11.0The [facility] HospitalComment on above:Performed By: #### CBC #### [facility] [address] [place] [address] Dr. Kristen GambinoPREJonathon QUANT HCGon [id number] QUANT1 mIU/mLNormalMercy Health St. Charles HospitalComkalamazoo psychiatric hospital on above:Performed By: #### PREGQNT #### [facility] [address] [place] [address] Dr. Kristen GambinoHCJonathon RANGESEE BELOWNoDayton VA Medical Centere [facility] HospitalComment on above: Result Comment: 5-50 0-1 WEEK 40-300 1-2 WEEKS 100-1,000 2-3 WEEKS 500-6,000 3-4 WEEKS 5,000-200,000 1-2 MONTHS 10,000-100,000 2-3 MONTHS 3,000-50,000 2ND TRIMESTER 1,000-50,000 3RD TRIMESTERPerformed By: #### PREGQNT #### [facility] [address] [place] [address] Dr. Kristen GambinoCHEMISTRYOrdered By: SYSTEM SYSTEM on 15-07-9333Nqtlzbu [Mass/Vol]4.5 g/dLNormal3.3 - 5.0 gm/dLFTMC RemisolAlbumin/Globulin [Mass ratio] 1.2 {ratio}Normal1.1 - 2.2FT[facility] RemisolALP [Catalytic activity/Vol]53 [iU]/d Opqnob04 - 98 Int._Unit/LFTMC RemisolALT No additional P-5'-P [Catalytic activity/Vol]23 [iU]/dNormal6 - 46 Int._Unit/LFTMC RemisolAnion gap [Moles/Vol] 13 mmol/LNormal6 - 16 mEq/LFTMC RemisolAST [Catalytic activity/Vol]20 [iU]/d Normal5 - 43 Int._Unit/LFTMC RemisolBilirubin [Mass/Vol]0.8 mg/dLNormal0.0 - 1.1 mg/dLFTMC RemisolBilirubin.direct [Mass/Vol]0.1 mg/dLNormal0.1 - 0.4 mg/dLFTMC RemisolBilirubin.indirect [Mass or moles/Vol]0.7 mg/dLNormal0.1 - 0.9 mg/dLFTMC RemisolCalcium [Mass/Vol]9.4 mg/dLNormal8.9 - 11.1 mg/dLFTMC RemisolChloride [Moles/Vol]99 mmol/OPry104 - 111 mmol/LFTMC RemisolCO2 [Moles/Vol]25 mmol/L Iynnpt22 - 31 mmol/LFTMC RemisolCreatinine [Mass/Vol]0.6 mg/dLNormal0.5 - 1.3 mg/dLFTMC RemisolGFR/1.73 sq M.predicted among blacks MDRD (S/P/Bld) [Vol rate/Area]mL/min/1.73 e3Jrhelg>=59mL/min/1.73 m2FT[facility] Chem SGFR/1.73 sq M.predicted among non-blacks MDRD (S/P/Bld) [Vol rate/Area]mL/min/1.73 t0Sbkxgk >=59mL/min/1.73 m2[facility] Chem SGlobulin (S) [Mass/Vol]3.8 g/dLNormal1.4 - 4.0 gm/dLFTMC RemisolGlucose [Mass/Vol]111 mg/tMNtcjll22 - 199 mg/dLFTMC Remisol Lipase [Catalytic activity/Vol]26 U/CUwbtav34 - 58 unit/LFTMC RemisolPotassium [Moles/Vol]3.8 mmol/LNormal3.5 - 5.3 mmol/LFTMC RemisolProtein [Mass/Vol]8.3 g/dLHigh6.0 - 7.8 gm/dLFTMC RemisolSodium [Moles/Vol]133 mmol/JEip219 - 145 mmol/LFTMC RemisolUrea nitrogen [Mass/Vol]11 mg/dLNormal5 - 21 mg/dLFTMC Remisol Urea nitrogen/Creatinine [Mass ratio]18 mg/wsNdhven96 - 20FT[facility] RemisolHEMATOLOGY Ordered By: SYSTEM SYSTEM on [id number]/100 WBC (Bld)0.9 %Normal0.0 - 2.0 %[facility] HemeAutoSSBasophils/Leukocytes Auto (Bld) [Pure # fraction]0.1 E9/L Normal0.0 - 0.2 E9/LFTMC HemeAutoSSEosinophils/100 WBC (Bld)1.3 %Normal0.0 - 8.0 %[facility] HemeAutoSSEosinophils/Leukocytes Auto (Bld) [Pure # fraction]0.2 E9/L Normal0.0 - 0.5 E9/LFTMC HemeAutoSSLymphocytes/100 WBC (Bld)19.8 %Tpcygz31.0 - 50.0 %[facility] HemeAutoSSLymphocytes/Leukocytes Auto (Bld) [Pure # fraction]2.6 E9/L Normal1.0 - 4.0 E9/LFTMC HemeAutoSSMonocytes/100 WBC (Bld)6.0 %Normal4.0 - 14.0 %[facility] HemeAutoSSMonocytes/Leukocytes Auto (Bld) [Pure # fraction]0.8 E9/LNormal 0.2 - 1.0 E9/LFTMC HemeAutoSSNeutrophils/100 WBC (Bld)72.0 %Exyrjo87.0 - 75.0 % [facility] HemeAutoSSNeutrophils/Leukocytes Auto (Bld) [Pure # fraction]9.4 E9/LHigh 2.0 - 7.5 E9/LFTMC HemeAutoSSHEMATOLOGYOrdered By: Lisbet Moon on 10-20-2021 Erythrocyte distribution width (RBC) [Ratio]13.5 %Ijetly27.9 - 14.2 %[facility] HemeAutoSSHematocrit (Bld) [Volume fraction]41.8 %Xeqfku39.0 - 46.0 %[facility] HemeAutoSSHemoglobin (Bld) [Mass/Vol]14.1 g/uVVcbpmi11.0 - 16.0 gm/dLFTMC HemeAutoSSMCH (RBC) [Entitic mass]27.2 piFbmouj60.0 - 34.0 pgFTMC HemeAutoSSMCHC (RBC) [Mass/Vol]33.7 g/mPYaplgu13.4 - 36.0 gm/dLFTMC HemeAutoSSMCV (RBC) [Entitic vol]80.6 mZJidrsc10.0 - 100.0 fLFTMC HemeAutoSSPlatelet mean volume (Bld) [Entitic vol]7.9 fLNormal6.4 - 10.8 fLFTMC HemeAutoSSPlatelets (Bld) [#/Vol]473.0 E9/HSejefe588.0 - 500.0 E9/LFTMC HemeAutoSSRBC (Bld) [#/Vol]5.2 E12/LNormal4.3 - 5.9 E12/LFTMC HemeAutoSSWBC corrected for nucl RBC Auto (Bld) [#/Vol]13.1 E9/LHigh4.0 - 11.0 E9/LFTMC HemeAutoSSURINALYSISOrdered By: Sarmad Marina on 91-17-8162Kgirynwqg Ql (U)Negative (10/20/21 6:38 PM)NormalNegativeFTMC UA Auto SSClarity (U)Clear (10/20/21 6:38 PM)NormalClearFTMC UA Auto SSColor (U)Yellow (10/20/21 6:38 PM)NormalYellowFT UA Auto SSCrystals LM Ql (Urine sed)Present (10/20/21 6:38 PM)NormalFTMC UA Auto SSEpithelial cells.squamous LM.HPF (Urine sed) [#/Area]0-2 /HPFNormal0-2/HPFJD [facility] [place] UA Auto SSGlucose Test strip (U) [Mass/Vol]Negative (10/20/21 6:38 PM)NormalNegativeJD [facility] [place] UA Auto SSHemoglobin Ql (U)Negative (10/20/21 6:38 PM)NormalNegativeJD [facility] [place] UA Auto SSKetones (U) [Mass/Vol]Negative (10/20/21 6:38 PM)NormalNegativeJD [facility] UA Auto SSLithium.plasma/Quonochontaug.RBC (Bld) [Mass ratio]0-3 /HPFNormal0-3/HPFJD [facility] [place] UA Auto SSNitrite Ql (U)Negative (10/20/21 6:38 PM)NormalNegativeJD [facility] [place] UA Auto SSpH (U)6.0 *NA* (10/20/21 6:38 PM)Invalid Interpretation Code5.0 - 9.0JD [facility] UA Auto SSProtein (U) [Mass/Vol]Negative (10/20/21 6:38 PM)NormalNegativeJD [facility] [place] UA Auto SSSpecific gravity (U) [Rel density] <=1.005 *NA* (10/20/21 6:38 PM)Invalid Interpretation Code1.005 - 1.030[facility] UA Auto SSUA Spec DescClean Catch (10/20/21 6:38 PM)NormalJD [facility] [place] UA Auto SSUrobilinogen Qn (U)0.8276869 {Sonya'U}/dLNormal0.0 - 1.0 EU/dLJD [facility] [place] UA Auto SSWBC Auto Ql (U)Trace *ABN* (10/20/21 6:38 PM)Invalid Interpretation CodeNegativeJD [facility] [place] UA Auto SSWBC LM.HPF (Urine sed) [#/Area]0-5 /HPFNormal0-5/HPFJD [facility] [place] UA Auto SSCHEMISTRYOrdered By: SYSTEM SYSTEM on 71-19-9801Slrgkid [Mass/Vol]4.2 g/dLNormal3.3 - 5.0 gm/dLFTMC RemisolAlbumin/Globulin [Mass ratio]1.2 {ratio}Normal1.1 - 2.2[facility] RemisolALP [Catalytic activity/Vol]48 [iU]/vToovas30 - 98 Int._Unit/LFTMC RemisolALT No additional P-5'-P [Catalytic activity/Vol]26 [iU]/dNormal6 - 46 Int._Unit/LFTMC RemisolAnion gap [Moles/Vol]12 mmol/LNormal6 - 16 mEq/LFT[facility] RemisolAST [Catalytic activity/Vol]23 [iU]/dNormal5 - 43 Int._Unit/LFTMC RemisolBilirubin [Mass/Vol]0.8 mg/dLNormal0.0 - 1.1 mg/dLFTMC RemisolBilirubin.direct [Mass/Vol] 0.2 mg/dLNormal0.1 - 0.4 mg/dLFTMC RemisolBilirubin.indirect [Mass or moles/Vol] 0.6 mg/dLNormal0.1 - 0.9 mg/dLFTMC RemisolCalcium [Mass/Vol]9.1 mg/dLNormal8.9 - 11.1 mg/dLFTMC RemisolChloride [Moles/Vol]102 mmol/WLbxtim510 - 111 mmol/LFTMC RemisolCO2 [Moles/Vol]24 mmol/PMtpfkv35 - 31 mmol/LFTMC RemisolCreatinine [Mass/Vol]0.4 mg/dLLow0.5 - 1.3 mg/dLFTMC RemisolGFR/1.73 sq M.predicted among blacks MDRD (S/P/Bld) [Vol rate/Area]mL/min/1.73 r2Kcewvx>=59mL/min/1.73 m2[facility] Chem SGFR/1.73 sq M.predicted among non-blacks MDRD (S/P/Bld) [Vol rate/Area] mL/min/1.73 j5Lhrdgk>=59mL/min/1.73 m2[facility] Chem SGlobulin (S) [Mass/Vol]3.6 g/dL Normal1.4 - 4.0 gm/dLFTMC RemisolGlucose [Mass/Vol]108 mg/nJUeifjg42 - 199 mg/dL [facility] RemisolLactate [Mass/Vol]1.1 mmol/LNormal0.5 - 2.2 mmol/LFTMC RemisolLipase [Catalytic activity/Vol]28 U/JIgzezp03 - 58 unit/LFTMC RemisolPotassium [Moles/Vol]3.7 mmol/LNormal3.5 - 5.3 mmol/LFTMC RemisolProtein [Mass/Vol]7.8 g/dLNormal6.0 - 7.8 gm/dLFTMC RemisolSodium [Moles/Vol]134 mmol/YTtu564 - 145 mmol/LFTMC RemisolUrea nitrogen [Mass/Vol]13 mg/dLNormal5 - 21 mg/dLFTMC Remisol Urea nitrogen/Creatinine [Mass ratio]32 mg/lzCqjz15 - 20FT[facility] RemisolHEMATOLOGY Ordered By: SYSTEM SYSTEM on 09-46-5049Gwykkvfzf/100 WBC (Bld)1.0 %Normal0.0 - 2.0 %[facility] HemeAutoSSBasophils/Leukocytes Auto (Bld) [Pure # fraction]0.1 E9/L Normal0.0 - 0.2 E9/LFTMC HemeAutoSSEosinophils/100 WBC (Bld)1.3 %Normal0.0 - 8.0 %[facility] HemeAutoSSEosinophils/Leukocytes Auto (Bld) [Pure # fraction]0.1 E9/L Normal0.0 - 0.5 E9/LFTMC HemeAutoSSLymphocytes/100 WBC (Bld)25.5 %Mgzoxu61.0 - 50.0 %[facility] HemeAutoSSLymphocytes/Leukocytes Auto (Bld) [Pure # fraction]2.6 E9/L Normal1.0 - 4.0 E9/LFTMC HemeAutoSSMonocytes/100 WBC (Bld)5.7 %Normal4.0 - 14.0 %[facility] HemeAutoSSMonocytes/Leukocytes Auto (Bld) [Pure # fraction]0.6 E9/LNormal 0.2 - 1.0 E9/LFTMC HemeAutoSSNeutrophils/100 WBC (Bld)66.5 %Uqbjlp26.0 - 75.0 % [facility] HemeAutoSSNeutrophils/Leukocytes Auto (Bld) [Pure # fraction]6.7 E9/LNormal 2.0 - 7.5 E9/LFTMC HemeAutoSSHEMATOLOGYOrdered By: Lisbet Moon on 10-18-2021 Erythrocyte distribution width (RBC) [Ratio]13.5 %Awztov73.9 - 14.2 %FT HemeAutoSSHematocrit (Bld) [Volume fraction]38.7 %Rcafkw10.0 - 46.0 %[facility] HemeAutoSSHemoglobin (Bld) [Mass/Vol]13.2 g/aCGedwxr35.0 - 16.0 gm/dLFT HemeAutoSSMCH (RBC) [Entitic mass]27.6 yoQamogg34.0 - 34.0 pgFTMC HemeAutoSSMCHC (RBC) [Mass/Vol]34.2 g/tRNhwdai54.4 - 36.0 gm/dLFTMC HemeAutoSSMCV (RBC) [Entitic vol]81.0 nQMatequ71.0 - 100.0 fLFT HemeAutoSSPlatelet mean volume (Bld) [Entitic vol]7.9 fLNormal6.4 - 10.8 fLFT HemeAutoSSPlatelets (Bld) [#/Vol]415.0 E9/PEofloj496.0 - 500.0 E9/LFC HemeAutoSSRBC (Bld) [#/Vol]4.8 E12/LNormal4.3 - 5.9 E12/LFTMC HemeAutoSSWBC corrected for nucl RBC Auto (Bld) [#/Vol]10.1 E9/LNormal4.0 - 11.0 E9/LFC HemeAutoSSSEROLOGYOrdered By: Amber Peraza on 78-16-6098VAM.beta subunit (U) [Moles/Vol]NegativeNormalFT Man Sero URINALYSISOrdered By: Lisbet Moon on 81-27-3736Flpkuemc LM Ql (Urine sed) Trace /HPFNormalTrace/HPFFT UA Auto SSBilirubin Ql (U)Negative (10/18/21 5:09 AM)NormalNegativeFT UA Auto SSClarity (U)Clear (10/18/21 5:09 AM)NormalClearFTMC UA Auto SSColor (U)STRAWInvalid Interpretation CodeFT UA Auto SSEpithelial cells.squamous LM.HPF (Urine sed) [#/Area]0-2 /HPF Normal0-2/HPFJD [facility] UA Auto SSGlucose Test strip (U) [Mass/Vol]Negative (10/18/21 5:09 AM)NormalNegativeJD [facility] UA Auto SSHemoglobin Ql (U)Trace *ABN* (10/18/21 5:09 AM)Invalid Interpretation CodeNegativeJD [facility] [place] UA Auto SSKetones (U) [Mass/Vol]Negative (10/18/21 5:09 AM)NormalNegativeJD [facility] UA Auto SSLithium.plasma/Quonochontaug.RBC (Bld) [Mass ratio]0-3 /HPFNormal0-3/HPFJD [facility] UA Auto SSNitrite Ql (U)Negative (10/18/21 5:09 AM)NormalNegativeJD [facility] UA Auto SSpH (U)6.5 *NA* (10/18/21 5:09 AM)Invalid Interpretation Code5.0 - 9.0[facility] UA Auto SSProtein (U) [Mass/Vol]Negative (10/18/21 5:09 AM)NormalNegativeJD [facility] UA Auto SSSpecific gravity (U) [Rel density] 1.010 *NA* (10/18/21 5:09 AM)Invalid Interpretation Code1.005 - 1.030[facility] UA Auto SSUA Spec DescClean Catch (10/18/21 5:09 AM)NormalJD [facility] UA Auto SSUrobilinogen Qn (U)0.8751139 {Sonya'U}/dLNormal0.0 - 1.0 EU/dLJD [facility] UA Auto SSWBC Auto Ql (U)Trace *ABN* (10/18/21 5:09 AM)Invalid Interpretation CodeNegativeJD [facility] UA Auto SSWBC LM.HPF (Urine sed) [#/Area]0-5 /HPFNormal0-5/HPFJD [facility] UA Auto SSCBC AUTO DIFFon [id number] #0.1 103/ulNormal0.0-0.1The [facility] HospitalComment on above: Performed By: #### CBC #### [facility] [address] [place] [address] Dr. Kristen Cohensophils/100 WBC (Bld)1.0 %Normal0.2-2.0The [facility] Comment on above:Performed By: #### CBC #### [facility] [address] [place] [address] Dr. Kristen Jimenez #0.1 103/ulNormal0.0-0.7The [facility] HospitalComment on above: Performed By: #### CBC #### [facility] [address] [place] [address] Dr. Kristen Velasquezosinophils/100 WBC (Bld)0.9 %Normal0.9-7.0The [facility] Comment on above:Performed By: #### CBC #### [facility] [address] [place] [address] Dr. Kristen Velasquezrythrocyte distribution width (RBC) [Ratio]13.3 %Vbstxe18.0-15.0 The [facility] HospitalComment on above:Performed By: #### CBC #### [facility] [address] [place] [address] Dr. Kristen GambinoHematocrit (Bld) [Volume fraction]44.6 %Thtavh52.0-48.0The [facility] HospitalComment on above:Performed By: #### CBC #### [facility] [address] [place] [address] Dr. Kristen GambinoHemoglobin (Bld) [Mass/Vol]14.4 g/kOAxvaqs11.0-16.0The [facility] HospitalComment on above:Performed By: #### CBC #### [facility] [address] [place] [address] Dr. Kristen Weaver #0.03 10e3/ulNormal0.00-0.03The [facility] HospitalComment on above:Performed By: #### CBC #### [facility] [address] [place] [address] Dr. Kristen Weaver %0.3 %Normal0.0-0.5The [facility] HospitalComment on above: Performed By: #### CBC #### [facility] [address] [place] [address] Dr. Kristen Christina #1.6 103/ulNormal1.2-3.8The [facility] HospitalComment on above:Performed By: #### CBC #### [facility] [address] [place] [address] Dr. Kristen Montielmphocytes/100 WBC (Bld)17.9 %Critically low20.5-60.0The [facility] HospitalComment on above:Performed By: #### CBC #### [facility] [address] [place] [address] Dr. Kristen Akins DIFF REQNONormalThe [facility] HospitalComment on above: Performed By: #### CBC #### [facility] [address] [place] [address] Dr. Kristen Dominguez (RBC) [Entitic mass]27.1 hsTeqszb26.7-34.0The [facility] HospitalComment on above:Performed By: #### CBC #### [facility] [address] [place] [address] Dr. Kristen Dominguez (RBC) [Mass/Vol]32.3 g/sGWxdklc97.9-35.2The [facility] HospitalComment on above:Performed By: #### CBC #### [facility] [address] [place] [address] Dr. Kristen Dominguez (RBC) [Entitic vol]84.0 gVCklxqb79.0-99.0The [facility] HospitalComment on above:Performed By: #### CBC #### [facility] [address] [place] [address] Dr. Kristen Powell #0.7 103/ulNormal0.3-0.8The [facility] HospitalComment on above:Performed By: #### CBC #### [facility] [address] [place] [address] Dr. Kristen Bagleyocytes/100 WBC (Bld)7.6 %Normal1.7-12.0The [facility] Comment on above:Performed By: #### CBC #### [facility] [address] [place] [address] Dr. Kristen Kim #6.6 103/ulCritically high1.4-6.5The [facility] Comment on above:Performed By: #### CBC #### [facility] [address] [place] [address] Dr. Kristen Da Silvautrophils/100 WBC (Bld)72.3 %Mlapcq45.0-75.0The [facility] HospitalComment on above:Performed By: #### CBC #### [facility] [address] [place] [address] Dr. Kristen GambinoPlatelet mean volume (Bld) [Entitic vol]9.8 fLNormal9.5-13.5The [facility] HospitalComment on above:Performed By: #### CBC #### [facility] [address] [place] [address] Dr. Kristen CheathamT427 103/[id number] [facility] HospitalComment on above: Performed By: #### CBC #### [facility] [address] [place] [address] Dr. Kristen GambinoRBC5.31 106/ulNormal4.20-5.40The [facility] HospitalComment on above:Performed By: #### CBC #### [facility] [address] [place] [address] Dr. Kristen GambinoWBC9.1 103/ulNormal4.0-11.0The [facility] HospitalComment on above: Performed By: #### CBC #### [facility] [address] [place] [address] Dr. Kristen GambinoLIPID PROFILEon [id number]-HDL RATIO NORMSEE Barnesville HospitalComment on above:Result Comment: 3.3 - 4.4 LOW RISK 4.4 - 7.1 AVERAGE RISK 7.1 - 11.0 MODERATE RISK >11.0 HIGH RISKPerformed By: #### CMP, LIPID #### [facility] [address] [place] [address] Dr. Kristen GambinoCholesterol [Mass/Vol]186 mg/dLNormal<=200The [facility] Comment on above:Performed By: #### CMP, LIPID #### [facility] [address] [address] [address] Kristen GambinoCholesterol in HDL [Mass/Vol]43 mg/vQRajzjb18-67Qsp [facility] HospitalComment on above:Performed By: #### CMP, LIPID #### [facility] [address] [place] [address] Dr. Kristen GambinoCholesterol in LDL [Mass/Vol]106.6 mg/dLNoClinton Memorial HospitalComment on above:Performed By: #### CMP, LIPID #### [facility] [address] [place] [address] Dr. Kristen Barrientosesternhung.total/Cholesterol in HDL [Mass ratio]4.3 {ratio} NormalThe [facility] HospitalComment on above:Performed By: #### CMP, LIPID #### [facility] [address] [place] [address] Dr. Kristen Salinas NORMAL> or = 60 mg/dl - LOW CARDIOVASCULAR RISK <40 mg/dl - HIGH CARDIOVASCULAR RISKNoClinton Memorial HospitalComment on above:Performed By: #### CMP, LIPID #### [facility] [address] [place] [address] Dr. Kristen Stearns CALC NORMALSEE BELOWSumma Health Barberton CampusComment on above:Result Comment: <100 mg/dl OPTIMAL 100 - 129 mg/dl NEAR OR ABOVE OPTIMAL 130 - 159 mg/dl BORDERLINE HIGH 160 - 189 mg/dl HIGH >190 mg/dl VERY HIGH Performed By: #### CMP, LIPID #### [facility] [address] [place] [address] Dr. Kristen GambinoTriglyceride [Mass/Vol]182 mg/dLCritically high<=150The [facility] HospitalComment on above:Performed By: #### CMP, LIPID #### [facility] [address] [place] [address] Dr. Kristen GambinoVLDL CALC36.4 mg/dLNoClinton Memorial HospitalComment on above: Performed By: #### CMP, LIPID #### [facility] [address] [address] [address] Kristen GambinoPROF 14(COMP METB)on [id number] [Mass/Vol]3.7 g/dLNormal 3.4-5.0[facility] Charles HospitalComment on above:Performed By: #### CMP, LIPID #### [facility] [address] [address] [address] Kristen GambinoAlbumin/Globulin [Mass ratio]0.8 {ratio}NormalThe [facility] HospitalComment on above:Performed By: #### CMP, LIPID #### [facility] [address] [place] [address] Dr. Kristen Madrid [Catalytic activity/Vol]70 U/LTkwbkv86-428Mze [facility] HospitalComment on above:Performed By: #### CMP, LIPID #### [facility] [address] [place] [address] Dr. Kristen June [Catalytic activity/Vol]35 U/KFhaedu91-11Mcz [facility] HospitalComment on above:Performed By: #### CMP, LIPID #### [facility] [address] [place] [address] Dr. Kristen Rojo gap [Moles/Vol]13.1 mmol/LNormalThe [facility] Comment on above:Performed By: #### CMP, LIPID #### [facility] [address] [place] [address] Dr. Kristen Wyman [Catalytic activity/Vol]19 U/TUdnifn88-93Rfv [facility] HospitalComment on above:Performed By: #### CMP, LIPID #### [facility] [address] [place] [address] Dr. Kristen GambinoBilirubin [Mass/Vol]0.7 mg/dLNormal0.2-1.3The [facility] Comment on above:Performed By: #### CMP, LIPID #### [facility] [address] [place] [address] Dr. Kristen GambinoCalcium [Mass/Vol]8.5 mg/dLNormal8.5-10.1The [facility] Comment on above:Performed By: #### CMP, LIPID #### [facility] [address] [address] [address] Kristen GambinoChloride [Moles/Vol]102 mmol/LTczhll59-676Hdt [facility] Comment on above:Performed By: #### CMP, LIPID #### [facility] [address] [address] [address] Kristen GambinoCO2 [Moles/Vol]25.9 mmol/PNazuga87.0-30.0The [facility] Comment on above:Performed By: #### CMP, LIPID #### [facility] [address] [address] [address] Kristen GambinoCreatinine [Mass/Vol]0.62 mg/dLNormal0.52-1.04The [facility] HospitalComment on above:Performed By: #### CMP, LIPID #### [facility] [address] [place] [address] Dr. Kristen VelasquezGFR-AF CENTRAL AFRICAN>60Normal>=60The [facility] HospitalComment on above:Performed By: #### CMP, LIPID #### [facility] [address] [place] [address] Dr. Kristen Shirley-NON AF CENTRAL AFRICAN>60Normal>=60The [facility] HospitalComment on above:Performed By: #### CMP, LIPID #### [facility] [address] [address] [address] Kristen GambinoGlobulin (S) [Mass/Vol]4.4 g/dLNormalThe [facility] HospitalComment on above:Performed By: #### CMP, LIPID #### [facility] [address] [address] [address] Kristen GambinoGlucose [Mass/Vol]104 mg/fLMkxvmv49-520Vwt [facility] Comment on above:Performed By: #### CMP, LIPID #### [facility] [address] [place] [address] Dr. Kristen GambinoPotassium [Moles/Vol]4.0 mmol/LNormal3.4-5.0[facility] Comment on above:Performed By: #### CMP, LIPID #### [facility] [address] [address] [address] Kristen GambinoProtein [Mass/Vol]8.1 g/dLNormal6.1-8.2[facility] Comment on above:Performed By: #### CMP, LIPID #### [facility] [address] [address] [address] Kristen GambinoSodium [Moles/Vol]137 mmol/MAkkcbo454-722UocMercy Health St. [facility] Hospital Comment on above:Performed By: #### CMP, LIPID #### [facility] [address] [place] [address] Dr. Kristen GambinoUrea nitrogen [Mass/Vol]12.0 mg/dLNormal7.0-18.0[facility] Charles HospitalComment on above:Performed By: #### CMP, LIPID #### [facility] [address] [place] [address] Dr. Kristen Watkins nitrogen/Creatinine [Mass ratio]19.4 mg/mgNormalThe [facility] HospitalComment on above:Performed By: #### CMP, LIPID #### [facility] [address] [place] [address] Dr. Kristen GambinoPROGRAngie [id number] ID: [id number]: Isaac Carrasco: (none)Author Type: PhysicianType: Progress NotesFiled: 10/21/2017 2:01 PMNote Text:PATIENT NAME: Gladis PatelarMRN: [id number] PHYSICIAN: MICHAEL Rubin0 Kelley Segura [facility] [id number] CARE PHYSICIAN: MASOOD Rubin PHYSICIANS:CHIEF COMPLAINT: Pituitary mass (hcc) (primary encounter diagnosis)ASSESSMENT/PLAN :EpistaxisConsidering previous CT of the neck scan finding of nasopharyngealfullness, I have offered her repeat CT of the neck and chest. Bleedingworkup has not revealed any abnormality in PT, PTT, or other abnormalitythat should suggest inherent hypocoagulability. I have deferred plateletfunction workup for now.She will repeat referred back to Robert Hernandez for further evaluation.LymphocytosisAbsolute lymphocytosis - BCR ABL and flow cytometry [...] and sedimentation rate within normal limits.(E23.7) Pituitary mass(HCC) (primary encounter diagnosis)Visit (SP) Office on 10/20/17-CONSULT TO ENDOCRINOLOGY Return inabout 7 months (around 05/22/2018), or f/u in dec asscheduled.. 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 Pastmedical history heart palpitations, hypertension, trace mitralregurgitation, ovarian cysts, anxiety, chronic lymphocytosis.Lisinopril 2.5 mg tablet, pindolol 5 mg 1 by mouth twice a day. R ecentlyhad some chronic fatigue, nausea, lightheadedness, headaches. We follow her for chronic leukocytosis and mild thrombocytosis. no clearpathologic diagnosis has been made. She was essentially asymptomatic atdiagnosis in mid to late 2015. Rodrick 2 was negative in January 2017.Peripheral flow cytometry and BCR ABL PCR was negative in April 2016.Former smokerFamily History.Mother has Jak2 positive essential thrombocytosis/polycythemia.Her sisters had similar disease. Feb 24 2017 she went toher PCP for Ear and throat pain. She had puspockets in her throat. She was given augmentin by . Fever for5 days straight. Went to ER 02/26. [place] was negative, strep negative.Flu negative. She was [...] has no large palpable obvious adenopathy orlesions onnasopharyngoscopy. Results CT of the chest abdomen [...] adjacent to the falciform ligament which was o funclear etiology. Cysts in bilateral adnexa.October 09, 2017 Still a lot of dizziness.She has had very severe nose bleeds bilaterally and in her mouth. ERcouldn't get to stop and had packing placed. Thatwas left in for 3 days. She had about 4 visits in a week and hasnt bled since. First bloody nosein A pril.10/20/17he has not had any more nosebleeds. Today [...] SKIN: Normal color, texture, turgor, norashes or l esionsHEENT: significant headaches, changes in hearing, changes in [...] tingling. BACK: Notenderness to palpation. No flank tenderness.MEDICATIONS:lisinopril (ZESTRIL, PRINIVIL) 5 mg tablet Take 1 tablet by mouth oncedaily.pindolol (VISKEN) 5 mg tablet Take 5 mg by mouth twice daily.sertraline (ZOLOFT) 50 mg tablet Take 50 mg by mouth once daily.ALLERGIES:ALLERGIESAllergen Reactions- Toprol Xl [Me toprol* Other: See Comments heart races per patientPAST [...] history, treated course, andprognosis of Pituitary mass (hcc)(primary encounter diagnosis); myimpression as well as the rationale, logistics, risks, benefits, andalternatives to the management options noted above; and my recommendationslisted below. The patient Gladis Michael verbalized understandingand agreed with these recommendations and plan. I answe red all questionssatisfactorily..Hai Shelton D.O.Medical OncologistSummit Medical CenterCNOVSPon 10-20-2017 CNOVSPVisit (SP) Office ([place]) --------CHIPALEXXGLADIS Daniels ([id number]) 1975 FDate Time Provider Department10/20/17 10:00 AM ISAAC SHELTON During your visit today, we recorded the following information about you: Temperature Pulse Respiration Blood pressure 98.5 degrees 69/minute 18/minute 159/106 Weight Height 105.9 kg 1.575 Kassidy Shelton DO 10/21/2017 2:01 PM SignedPATIENT NAME: Gladis Daniels JerrodRN: [id number] PHYSICIAN: MICHAEL Rubin0 Kelley Segura [facility] [id number] CARE PHYSICIAN: MASOOD Rubin PHYSICIANS:CHIEF COMPLAINT: Pituitary mass (hcc) (primary encounter diagnosis)ASSESSMENT/PLAN:EpistaxisConsidering previous CT of the neck scan finding of nasopharyngeal fullness, Jay offered her repeat CT of the neck and chest. Bleeding workup has notrevealed any abnormality in PT, PTT, or other abnormality that should suggestinherent hypocoagulability. I have deferred platelet function workup for now.She will repeat referred back to Robert Hernandez for further evaluation.LymphocytosisAbsolute lymphocytosis - BCR ABL and flow cytometry [...] her only. She will repeat imaging inDecember. 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 Pastmedical history heart palpitations, hypertension, trace mitral regurgitation,ovarian cysts, anxiety, chronic lymphocytosis. Lisinopril 2.5 mg tablet,pindolol 5mg 1 by mouth twice a day. Recently had some chronic fatigue,nausea, lightheadedness, headaches. Wefollow her for chronic leukocytosis and mild thrombocytosis. no clearpathologic diagnosis has been made. She was essentially asymptomatic atdiagnosis in mid to late 2015. Rodrick 2 was negative in January2017. Peripheralflow cytometry and BCR ABL PCR was negative in April 2016.Former smokerFamily History.Mother has Jak2 positive essential thrombocytosis/polycythemia.Her sisters had similar disease. Feb 24 2017 she went to her PCP for Ear and throat pain. She had puspockets in her throat. She was given augmentin by Dr. Jose. Fever for 5days straight. Went to ER 02/26. [place] was negative, strep negative. Flunegative. She was [...] CT of the neck showed mildly enlargedright greaterthan left level IIA lymphadenopathy with prominence of [...] and in her mouth. ER couldn'tget to stopand had packing placed. That was left in for 3 days. She hadabout 4 visits in a week and hasnt bledsince. First bloody nose in September.10/20/17he has not [...] to auscultation, no wheezing rales orrhonchiCARD: chest pain,leg swelling, palpitations. did not discuss palpitationstoday. HEART: Regular. No murmurs, gallop, or rubs. No ectopy.GI: abdominal pain, diarrhea, constipation, melena, hematochezia. minimalnausea. ABDM: Soft. Non-tender. Non- distended. Bowel sounds normal. Nomasses. No hepatosplenomegaly.HEME: prolonged bleeding, bruising, adenopathy. EXT: No clubbing, cyanosisor edema.MUSC: joint pain or swelling. MUSC: No joint swelling, deformity, ortenderness.NEURO: syncope, seizures, peripheral numbness or tingling. BACK: Notenderness to palpation. No flank tenderness.MEDICATIONS:lisinopril (ZESTRIL, PRINIVIL) 5 mg tablet Take 1 tablet by mouth once daily.pindolol (VISKEN) 5 mg tablet Take 5 mg by mouth twice daily.sertraline (ZOLOFT) 50 mg tablet Take 50 mg by mouth once daily.ALLERGIES:ALLERGIESAllergen Reactions- Toprol Xl [Metoprol* Other: See Comments [...] and my recommendations listed below. Thepatient Gladis Frances Michael verbalized understanding and agreed with thesere commendations and plan. 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]Order(s):CONSULT TO ENDOCRINOLOGY [9007] Order #: [id number]: 1Disposition: Return in about 7 months (around 05/22/2018), or f/u in may as scheduled..Follow-up and Disposition History RecordedPrescriptions as of 10/20/2017 Sig: LISINOPRIL 5 MG TABLET Take 1 tablet by mouth onced* PINDOLOL 5 MG TABLET Take 5 mg by mouth twice kwasi* SERTRALINE 50 MG TABLET Take 50 mg by mouth once kwasi*Problem List As Of Date 10/20/2017 Noted Resolved Lymphocytosis [D72.820] INVALID FOR* Cerv ical adenopathy [R59.0] INVALID FOR* Obesity, Class III, BMI >= 40 E66.01 [E66.01] INVALID FOR* 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] INVALID FOR*Encounter Status:Closed by ISAAC SHELTON DO on 10/21/17NormalClevelUNC Health Blue RidgeRemote Abs Gran + CBC (for [facility] use only)on 56-65-6605Aziyn Gran Count 6.74 k/uLNormal1.45-7.50CleGlenbeigh HospitalErythrocyte distribution width Auto Ratio (RBC)13.9 %Figemu88.5-15.0Providence HospitalErythrocytes (RBC)4.76 10*6/uLNormal3.90-5.20Providence HospitalHematocrit (HCT)39.5 % Xvlsao70.0-46.0Providence HospitalHemoglobin mass conc (Bld)13.4 g/dL Nglbzs88.5-15.5CBellevue HospitalMCH28.2 pMCpqctw18.0-34.0UK HealthcareHC mass conc (RBC)33.9 g/qAZwocii69.5-36.0Providence HospitalMCV83.0 pVEsqwfn96.0-100.0Providence HospitalPlatelet mean volume (PMV)9.4 fLNormal9.0-12.7CBellevue HospitalPlatelets434 10*3/uL Olex402-332ScpkizayvProvidence HospitalWBC (Leukocytes)10.26 10*3/uLNormal 3.70-11.00Providence HospitalCNOVSPon [id number] (SP) Office ([place]) --------GLADIS MICHAEL ([id number]) 1975 [facility] Time Provider Department10/09/17 11:15 AM ISAAC SHELTON [place] During your visit today, we recorded the following information about you: Temperature Pulse Respiration Blood pressure 98 degrees 75/minute 18/minute 151/106 Weight Height 111 kg 1.575 Isaac Myers 10/10/2017 2:10 AM SignedPATIENT NAME: Gladis ElderRN: [id number] PHYSICIAN: [place] [address]LBWVEIS CARE PHYSICIAN: MASOOD Rubin PHYSICIANS:CHIEF COMPLAINT: Lymphocytosis (primary encounter diagnosis)Cervical adenopathyASSESSMENT/PLAN:EpistaxisConsidering previous CT of the neck scan finding of nasopharyngeal fullness, leif offered her repeat CT of the neck and chest. Bleeding workup has notrevealed any abnormality in PT, PTT, or other abnormality that should suggestinherent hypocoagulability. I have deferred platelet function workup for now.She will repeat referred back to Robert Hernandez for further evaluation.LymphocytosisAbsolute lymphocytosis - BCR ABL and flow cytometry [...] the chest abdomen and pelvis in March 2017did not show any areas ofobvious neoplasm.Ea r nose and throat evaluation likely from clinic main campus physician . We will continue to monitor her only. She will repeat imaging inDecember. She'll also make an appointment with her primary care provider.LDH and sedimentation rate within normallimits.(D72.820) Lymphocytosis (primary encounter diagnosis)(R59.0) Cervical adenopathyVisit (SP) Office on 10/09/17-CT NECK SOFT TISSUE W IVCON-CT CHEST WO IVCON-CT CHEST W IVCON-iv contrast (radiology procedure)-iv contrast (radiology procedure) Return in about 1 week (around 10/16/2017), or ct neck and base of skull jesús.make f/u with rebecca and Dr. Hernandez.. HPI: This is a 42 year old female [...] 2016.Former smokerFamily History.Mother has Jak2 positive essential thrombocytosis/polycythemia.Her sisters had similar disease. Feb 24 2017 she went to her PCP for Ear and throat pain. She had puspockets in her throat. She was given augmentin by Dr. Jose. Fever for 5days straight. Went to ER 02/26. [place] was negative, strep negative. Flunegative. She wasplaced on Azithromycin. Still not improving 03/02 went [...] and bilateral palatetine tonsillar region. No mass. Focalgroundg lass opacities in the right upper lobe, no [...] SKIN: Normal color, texture, turgor, no rashesor lesionsHEENT:significant headaches, changes in hearing, changes in vision, nosebleeds. see history of present ill ness for description of epistaxis. ENT:No scleral icterus. no significant adenopathy to palpation. Baseline forher. NECK: Supple, no thyromegaly, no JVD.: dysuria, frequency or incontinence. LYMPH:No cervical, supraclavicular,axillary, inguinal adenopathy.RESP: dyspnea, wheezing. still with cough. LUNG: Clear to auscultation, nowheezing rales or rhonchiCARD: chest pain, leg swelling, palpitations. did not discuss palpitationstoday. HEART: Regular. No murmurs, gallop, or rubs. No ectopy.GI: abdominal pain, diarrhea, constipation, melena, hematochezia. minimalnausea. ABDM: Soft. Non-tender. Non- distended. Bowel sounds normal. Nomasses. No hepatosplenomegaly.HEME: prolonged bleeding, bruising, adenopathy. EXT: No clubbing, cyanosisor edema.MUSC: joint pain or swelling. MUSC: No joint swelling, deformity, ortenderness.NEURO: syncope, seizures, peripheral numbness or tingling. BACK: Notenderness to palpation. No flank tenderness.MEDICATIONS:lisinopril (ZESTRIL, PRINIVIL) 5 mg tablet Take 1 tablet by mouth once daily.pindolol (VISKEN) 5 mg tablet Take 5 mg by mouth twice daily.sertraline (ZOLOFT) 50 mg tablet Take 50 mg by mouth once daily.iv contrast (radiology procedure) CT Chest W-Inject, intravenously, once for 1dose.No IV access, insert saline lock prior to the beginning of se dation,infusion, injection of imaging exam. Discontinue saline lock post exam. If Pt.has a central line or IVAD, may access for administration according to linespecific nursing protocol. Once exam iscomplete flush line and de- accessaccording to line specific nursing protocol in the CT contrast admi nistrationguidelines link.ALLERGIES:ALLERGIESAllergen Reactions- Toprol Xl [Metoprol* Other: See Comments heart races per patientPAST MEDICAL HISTORYDiagnosis Date- Anxiety- Hypertension- LeukocytosisPAST SURGICAL HISTORYProcedure Laterality Date- DELIVERY ONLY , low transverse-CHOLECYSTECTOMYNo family history on file.SOCIAL HISTORY:Social HistorySubstance Use Topics- Smokingstatus: Former Smoker Packs/day: 0.50 Years: 10.00 Types: Cigarettes Quit date: 05/22/2005- Smokeless tobacco: Never Used- Alcohol use NoLABS:RADIOLOGY/OTHER STUDIES:COUNSELING:I discussed with Gladis the natural history, treated course, and prognosisof Lymphocytosis (primary encounter diagnosis)Cervical adenopathy; my impression as well as the rationale, logistics, risks,benefits, and alternatives to the management options noted above; and myrecommendations listed below. The patient Gladis iMchael verbalizedunderstanding and agreed with these recommendations and plan. I answered allquestions satisfactorily..Hai Shelton D.O.Medical OncologistKnightdale, [place]Referring Provider: ISAAC SHELTON [[id number]]Allergies As of Date: 10/09/2017 Noted Allergy ReactionTOPROL XL (METOPROLOL) 04/11/2016 14 - Other: See Comments Comments: heart races per patientDate Reviewed: 10/09/2017Reviewed by: Denise Witt - Fully AssessedReason for Visit: lymphocytosis [Other] Cmt: follow up per nursePrimary Visit Diagnosis:Lymphocytosis [D72.820] Other Visit Diagnosis:Cervical adenopathy [R59.0]Order(s):CT NECK SOFT TISSUE W IVCON [2495117] Order #: [id number] FUTURE [] iv contrast (radiology procedure)Inject 1 [...] 1 EachRfl: 0 CT CHEST WO IVCON [[id number]] Order #: [id number] FUTURE CT CHEST W IVCON [[id number]] Order #: [id number] FUTURE iv contrast (radiology procedure)CT Chest W [...] mouth once d* PINDOLOL 5 MG TABLET Take5 mg by mouth twice kwasi* SERTRALINE 50 [...] FOR*Encounter Status:Closed by ISAAC SHELTON DO on 10/10/17Normal Providence HospitalPROGRESSon [id number] ID: [id number]: Isaac Shelton JService: (none)Author Type: PhysicianType: Progress No tesFiled: 10/10/2017 2:10 AMNote Text:PATIENT NAME: Gladis PatelarMRN: [id number] PHYSICIAN: MICHAEL Rubin0 Kelley Segura [facility] [id number] CARE PHYSICIAN: MASOOD Rubin PHYSICIANS:CHIEF COMPLAINT: Lymphocytosis (primary encounter diagnosis)Cervical adenopathyASS ESSMENT/PLAN:EpistaxisConsidering previous CT of the neck scan finding of nasopharyngealfullness, Jay offered her repeat CT of the neck and chest. Bleedingworkup has not revealed any abnormality in PT, PTT, or other abnormalitythat should suggest inherent hypocoagulability. I have deferred plateletfunction workup for now.She will repeat referred back to Robert Hernandez for further evaluation.LymphocytosisAbsolute lymphocytosis - BCR ABL and flow cytometry negative in April2016. Paraprotein evaluation reveals slight IgG Level M spikequantitative is 0.16. No other diagnostic abnormalities. At this pointwe are considering this a monoclonal gammopathy of undeterminedsignificance. For extreme lowlevel of M protein and the immunofixationreport which states that the bands are rather faint, we will continue tomonitor onlyJak 2 was negative in January 2017. Peripheral flow cytometry and BCR ABLPCR was negative in April 2016.CT of the chest abdomen and pelvis in March 2017 did not show any areasof obvious neoplasm.Ea r nose and throat evaluation likely from clinic main [place] physician. We will continue to monitor her only. [...] make f/u with rebecca and Dr. Hernandez.. HPI: This is a 42 year old female [...] flow cytometry and BCR ABL PCR was n egative in April 2016.Former smokerFamily History.Mother has Jak2 positive essential thrombocytosis/polycythemia.Her sisters had similar disease. Feb 24 2017 she went to her PCP for Ear and throat pain. She had puspockets in her throat. She was given augmentin by Dr. Jose. Fever for5 days straight. Went to ER 02/26. [place] was negative, strep negative.Flu negative. She was [...] placed. That was left in for 3 days.She had about 4 visits in a week and hasnt bled since. First bloody nosein September.Vitals: BP 151/106 Pulse 75 Temp (Src) 98 (Oral) Resp 18 Ht 5'2.008 (1.58m) Wt 244 lb 12.8 oz (111.0kg) SpO2 97% BMI 44.76kg/(m2). Body surface area is 2.2 meters squared. REVIEW OF SYSTEMS PHYSICAL EXAMECOG PS: 0 NEGATIVES POSITIVES NEGATIVES POSITIVESGEN: fevers, [...] peripheral numbness or tingling. BACK: Notenderness to palpation.No flank tenderness.MEDICATIONS:lisinopril (ZESTRIL, PRINIVIL) 5 mg tablet Take 1 [...] nursingprotocol in the CT contrast administration guidelines link.ALLERGIES:ALLERGIESAllergen Reactions- Toprol Xl [Metoprol* Other: See Comments heart races per patientPAST MEDICAL HISTORYDiagnosis Date- Anxiety- Hypertension- LeukocytosisPAST SURGICAL HISTORYProcedure Laterality Date- DELIVERY ONLY , low transverse- CHOLECYSTECTOMYNo family history on file.SOCIAL HISTORY:Social HistorySubstance Use Topics- Smoking status: Former SmokerPacks/day: 0.50 Years: 10.00 Types: Cigarettes Quit date: 05/22/2005- Smokeless tobacco: Never Used- Alcohol use NoLABS:RADIOLOGY/OTHER STUDIES:COUNSELING:I discussed with Gladis the natural history, treated course, andprognosis of Lymphocytosis (primary encounter diagnosis)Cervical adenopathy; my impression as well as the rationale, logistics,risks, benefits, and alternatives to the management options noted above;and my recommendations listed below. The patient Gladis Michaelverbalizedunderstanding and agreed with these recommendations and plan.I answered all questions satisfactorily..Hai Shelton D.O.Medical OncologistSalem Regional Medical Center [phone] sLow23.0-32.4CBellevue HospitalComment on above:Result Comment: Unfractionated Heparin Therapeutic Ranges:Standard Heparin Nomogram: 53 to 78 seconds (anti-Xa level of 0.3 to 0.7 U/ml)Low Dose/ACS Nomogram: 49 to 67 seconds (anti-Xa level of 0.2 to 0.5 U/ml)Stroke Treatment Nomogram: 49 to 67 seconds (anti-Xa level of 0.2 to 0.5 U/ml)Note: The APTT therapeutic range has been determined for the current lot of laboratory APTT reagent in use throughout the [facility].Performed By: #### PT, PTT, BMP, HFP, LD6, WSR, SEPG, MPASRM, KLFRS ####[place] [address], [place] [phone] Metabolic Panlon 24-82-9351Iycns gap12 mmol/LNormal9-18 [facility] on above:Performed By: #### PT, PTT, BMP, HFP, LD6, WSR, SEPG, MPASRM, KLFRS ####[place] [address] [address], [place] [phone] mg/dLNormal8.5-10.2CMcCullough-Hyde Memorial Hospital on above:Performed By: #### PT, PTT, BMP, HFP, LD6, WSR, SEPG, MPASRM, KLFRS ####[place] [address] [address] AvLone [place], [place] [phone] mmol/XAim89-824AeyoiopvjProvidence Hospital Comment on above:Performed By: #### PT, PTT, BMP, HFP, LD6, WSR, SEPG, MPASRM, KLFRS ####[place] [address] [address], [place] [phone] mmol/VItwyig76-81JbxtsjpeeMercy Health Defiance Hospital on above:Performed By: #### PT, PTT, BMP, HFP, LD6, WSR, SEPG, MPASRM, KLFRS ####[place] [address], [place] [phone] mg/dLLow0.58-0.96[facility] Comment on above:Performed By: #### PT, PTT, BMP, HFP, LD6, WSR, SEPG, MPASRM, KLFRS ####[place] [address], [place] [phone] (non-black)mL/min/{1.73_m2}NormalMercy Health Defiance Hospital on above:Result Comment: eGFR (Estimated GFR) Units of measure: mL/min/1.73 meters squaredeGFR is derived from the reexpressed MDRD Study equation using the following parameters: serum creatinine, age, genderand race. The creatinine assay has been calibrated to be traceable to IDMS.An eGFR <60 mL/min/1.73m2 for >3 months is consistent with chronic kidney disease. Refer to KDOQI guidelines for clinical interpretation.In patients with unstable renal function, e.g. those with acute kidney injury, the eGFR may not accurately reflect actual GFR.Performed By: #### PT, PTT, BMP, HFP, LD6, WSR, SEPG, MPASRM, KLFRS ####[facility] [address] AvLone [place], [place] [phone] mass conc81 mg/zFOyucqr15-10ErxroydbkProvidence Hospital Comment on above:Result Comment: The Canadian Diabetes Association (ADA) provides guidance for cutoff [...] unequivocal hyperglycemia, results should be confirmed by repeattesting. In a patient with classic symptoms of hyperglycemia or hyperglycemic crisis, random plasmaglucose results greater than or equal to 200 mg/dL meet the criteria for diagnosis of diabetes.Reference: Standards of Medical Care in Diabetes 2016, Canadian Diabetes Association. Diabetes Care. 2016.39(Suppl 1).Performed By: #### PT, PTT, BMP, HFP, LD6, WSR, SEPG, MPASRM, KLFRS ####[facility] [address] [place], [place] [phone] molar conc4.4 mmol/L Normal3.7-5.1CMcCullough-Hyde Memorial Hospital on above:Performed By: #### PT, PTT, BMP, HFP, LD6, WSR, SEPG, MPASRM, KLFRS ####[facility] [address] AvLone [place], [place] [phone] mmol/IKeg893-080 [facility] on above:Performed By: #### PT, PTT, BMP, HFP, LD6, WSR, SEPG, MPASRM, KLFRS ####[address] Av[address]ichele Ville [phone] axduuobj09 mg/dLNormal7-21[facility] on above:Performed By: #### PT, PTT, BMP, HFP, LD6, WSR, SEPG, MPASRM, KLFRS ####[place] [phone] Functn Panelon 02-41-9445Getdwgi aminotransferase (ALT)20 U/LNormal7-38[facility] on above:Performed By: #### PT, PTT, BMP, HFP, LD6, WSR, SEPG, MPASRM, KLFRS ####[place] [phone] g/dL Normal3.9-4.9CMcCullough-Hyde Memorial Hospital on above:Performed By: #### PT, PTT, BMP, HFP, LD6, WSR, SEPG, MPASRM, KLFRS ####[facility] [address] [place] [phone] phosphatase (ALP)64 U/EFtwuun29-112RkxmvgixzMercy Health Defiance Hospital on above:Performed By: #### PT, PTT, BMP, HFP, LD6, WSR, SEPG, MPASRM, KLFRS ####[facility] [address] [place] [phone] aminotransferase (AST)14 U/SMimblp43-19ZrrjezeocMercy Health Defiance Hospital on above:Performed By: #### PT, PTT, BMP, HFP, LD6, WSR, SEPG, MPASRM, KLFRS ####[address] [phone] (total)0.3 mg/dLNormal0.2-1.3CMcCullough-Hyde Memorial Hospital on above:Performed By: #### PT, PTT, BMP, HFP, LD6, WSR, SEPG, MPASRM, KLFRS ####[place] [address] [address], [place] [phone],Conjugated <0.2Normal<0.2CMcCullough-Hyde Memorial Hospital on above:Performed By: #### PT, PTT, BMP, HFP, LD6, WSR, SEPG, MPASRM, KLFRS ####[facility] [address] [place] [phone] g/dLNormal6.3-8.0 [facility] on above:Performed By: #### PT, PTT, BMP, HFP, LD6, WSR, SEPG, MPASRM, KLFRS ####[place] [phone]/Cope,Free,Seron 10-06-2017K/L Ratio, Serum1.31Wqst0.26-1.65[facility] on above:Performed By: #### PT, PTT, BMP, HFP, LD6, WSR, SEPG, MPASRM, KLFRS ####[place] [address], [place] [phone], Free, Serum 22.5 mg/LHigh3.30-19.40[facility] on above:Result Comment: Rarely, increased serum free light chains values may not be detected due to antigenexcess phenomenon. Results should always be correlated with other laboratory results and clinical findings.Performed By: #### PT, PTT, BMP, HFP, LD6, WSR, SEPG, MPASRM, KLFRS ####[place] [address], [place] [phone], Free, Serum12.3 mg/LNormal5.7-26.3 [facility] on above:Result Comment: Rarely, increased serum free light chains values may not be detected due to antigenexcess phenomenon. Results should always be correlated with other laboratory results and clinical findings.Performed By: #### PT, PTT, BMP, HFP, LD6, WSR, SEPG, MPASRM, KLFRS ####[facility] AvL[place], [place] [phone] 90-30-8469QH076 U/SLpbsro173-209FrhbjvnciProvidence Hospital Comment on above:Performed By: #### PT, PTT, BMP, HFP, LD6, WSR, SEPG, MPASRM, KLFRS ####[address] Av[address] [place], [place] [phone] Protein,Blon 80-96-8872PAR InterpretationSEE COMMENT NormalMercy Health Defiance Hospital on above:Result Comment: Atypical restricted bands are present in the IgG and lambda regions. Consistent with IgG lambda monoclonal gammopathy.Performed By: #### PT, PTT, BMP, HFP, LD6, WSR, SEPG, MPASRM, KLFRS ####[address] [phone] Parminder/Milner Ratio2.98Ysksiq9-4MaogqgqceBellevue Hospital Comment on above:Performed By: #### PT, PTT, BMP, HFP, LD6, WSR, SEPG, MPASRM, KLFRS ####[place] [address] Av[place], [place] [phone] ResultM protein is present.Critically abnormalNo M protein is identified.[facility] on above:Performed By: #### PT, PTT, BMP, HFP, LD6, WSR, SEPG, MPASRM, KLFRS ####[facility] [address] Av[place], [place] [phone] Serum GgG781 mg/dLNormal 78-391[facility] on above:Performed By: #### PT, PTT, BMP, HFP, LD6, WSR, SEPG, MPASRM, KLFRS ####[facility], [place] [phone] Serum AaR4491 mg/iRKmnq138-7432 [facility] on above:Performed By: #### PT, PTT, BMP, HFP, LD6, WSR, SEPG, MPASRM, KLFRS ####[place] [address] AveCT[address] [place] [phone] Serum UbQ405 mg/tZMtcszk62-327CtreyetssMercy Health Defiance Hospital on above:Performed By: #### PT, PTT, BMP, HFP, LD6, WSR, SEPG, MPASRM, KLFRS ####[address] AveCTroy [place]ille [phone] Atqov5066 mg/vTGkwiyy196-2556NsplkvsztMercy Health Defiance Hospital on above:Performed By: #### PT, PTT, BMP, HFP, LD6, WSR, SEPG, MPASRM, KLFRS ####[place] [address], [place] [phone] Abagun425 mg/cPBljpud823-629FidhdykszProMedica Memorial Hospital on above:Performed By: #### PT, PTT, BMP, HFP, LD6, WSR, SEPG, MPASRM, KLFRS ####[place] [address], [place] [phone] ReviewReviewed by Delores Means MD ([id number])Normal [facility] on above:Performed By: #### PT, PTT, BMP, HFP, LD6, WSR, SEPG, MPASRM, KLFRS ####[place] [address]CFrank[place], [place] [phone] Electrophor.on 03-57-1980Hfpqxyi8.93 g/dLNormal3.37-4.23[facility] on above:Performed By: #### PT, PTT, BMP, HFP, LD6, WSR, SEPG, MPASRM, KLFRS ####[address]ichele Ville [phone] 1 Globulin0.16 gm/dLLow0.18-0.31[facility] on above:Performed By: #### PT, PTT, BMP, HFP, LD6, WSR, SEPG, MPASRM, KLFRS ####[place] [phone] 2 Globulin0.80 gm/dLNormal0.52-0.97[facility] on above:Performed By: #### PT, PTT, BMP, HFP, LD6, WSR, SEPG, MPASRM, KLFRS ####[place] [phone] Globulin1.11 gm/dLNormal0.84-1.36[facility] on above:Performed By: #### PT, PTT, BMP, HFP, LD6, WSR, SEPG, MPASRM, KLFRS ####[place] [phone] Globulin1.49 gm/dLHigh0.70-1.44[facility] on above:Performed By: #### PT, PTT, BMP, HFP, LD6, WSR, SEPG, MPASRM, KLFRS ####[address] [phone] COMMENTNormalCMcCullough-Hyde Memorial Hospital on above:Result Comment: An M protein is identified on protein electrophoresis.See separate immunofixation re port for characterization of the M protein.M protein is present on the background of a polyclonal immunoglobulin population. Quantitation of the M protein may overestimate the amount of M protein present.Performed By: #### PT, PTT, BMP, HFP, LD6, WSR, SEPG, MPASRM, KLFRS ####[facility] [address] [address] [place], [place] [phone] Protein LocationGamma fractionNormalCMcCullough-Hyde Memorial Hospital on above:Performed By: #### PT, PTT, BMP, HFP, LD6, WSR, SEPG, MPASRM, KLFRS ####[facility] [address] [place], [place] [phone] Ja Concentratn0.18 gm/dL High0.00[facility] on above:Performed By: #### PT, PTT, BMP, HFP, LD6, WSR, SEPG, MPASRM, KLFRS ####[address] [phone] Staff ReviewReviewed by Delores Means MD ([id number])NormalMercy Health Defiance Hospital on above:Performed By: #### PT, PTT, BMP, HFP, LD6, WSR, SEPG, MPASRM, KLFRS ####[address] [phone] Protein, SPE 7.5 g/dLNormal6.0-8.4CMcCullough-Hyde Memorial Hospital on above:Performed By: #### PT, PTT, BMP, HFP, LD6, WSR, SEPG, MPASRM, KLFRS ####[address] Av[address] [place], [place] [phone] 10-06-2017 INR Coag RelTime (Bld)1.0 {INR}Normal0.9-1.3CMcCullough-Hyde Memorial Hospital on above:Result Comment: Vitamin K Antagonist (VKA) Therapeutic Range: INR 2 to 3 (Target INR of 2.5)Note: For patients treated with VKA drugs, such as warfarin, the [employer] College [employer] Chest [employer]icians 2012 Guideline recommends a therapeutic INR range of 2 to 3 (target INR of 2.5). This recommendation includes high-risk patients with antiphospholipid syndrome with previous arterial or venous thromboembolism, current-generation mechanical or bioprosthetic aortic heart valve replacement.Note: Patients with mechanical aortic valve replacement and additional risk factors for thromboembolic events (atrialfibrillation, previous thromboembolism, LV dysfunction, hypercoagulable conditions) or an older gene ration mechanical AVR (i.e., ball in-Cage) or any mechanical MVR should have a INR therapeutic range of 2.5 to 3.5 (target INR of 3).Sunita GH, et al. Chest 2012, 141:7S-47SNishimura RA, et al. [facility] 2017, 70: 252-289Performed By: #### PT, PTT, BMP, HFP, LD6, WSR, SEPG, MPASRM, KLFRS ####[address] [place] [phone] By: #### VWFPN ####[place] [phone] Sec10.3 secNormal9.7-13.0[facility] on above:Performed By: #### PT, PTT, BMP, HFP, LD6, WSR, SEPG, MPASRM, KLFRS ####[place] [phone] By: #### VWFPN ####[place] [phone] CBCDIF (for [facility] use only)on 82-07-0567Cse Baso0.12 k/uLHigh<0.11CMcCullough-Hyde Memorial Hospital on above: Performed By: #### RCBCDF ####[address] Av[address] [place] [phone] Mono0.85 k/uLNormal<0.87[facility] on above:Performed By: #### RCBCDF ####[address] Av[address] [place] [phone] Neut9.52 k/uL High1.45-7.50[facility] on above:Performed By: #### RCBCDF ####[address] [phone]/100 WBC Auto (Bld)0.9 %NormalMercy Health Defiance Hospital on above:Performed By: #### RCBCDF ####[address] [phone] DiffNormal [facility] on above:Performed By: #### RCBCDF ####[address] [phone] 10*3/uLNormal<0.46[facility] on above:Performed By: #### RHYS ####[address] [phone]/100 leukocytes0.9 %Normal [facility] on above:Performed By: #### RCSHANNONDF ####[address] [phone] distribution width Auto Ratio (RBC)13.8 %Qcfpbz14.5-15.0 [facility] on above:Performed By: #### RCBCDF ####[place] [address] Av[place], [place] [phone] (RBC)10*6/uLNormal<0.01[facility] on above:Performed By: #### RCBCDF ####[address] [phone] (RBC)0.0 /100 WBCNormal0 [facility] on above:Performed By: #### RCBCDF ####[address] [place] [phone] (RBC)4.46 10*6/uLNormal3.90-5.20[facility] Comment on above:Performed By: #### RCBCDF ####[place] [phone] (HCT)37.7 %Normal 36.0-46.0Providence HospitalComment on above:Performed By: #### RCBCDF ####[place] [phone] mass conc (Bld)12.6 g/pOPtzaln75.5-15.5CMcCullough-Hyde Memorial Hospital on above:Performed By: #### RCBCDF ####[place] [phone] 10*3/uLNormal1.00-4.00Providence HospitalComment on above:Performed By: #### RCBCDF ####[place] [phone]/100 iuidzbkfnv11.1 %NormalMercy Health Defiance Hospital on above:Performed By: #### RCBCDF ####[place] [phone] pGNormal 26.0-34.0[facility] on above:Performed By: #### RCBCDF ####[place] [phone] mass conc (RBC)33.4 g/jFSqopnu24.5-36.0[facility] Comment on above:Performed By: #### RCBCDF ####[place] [address] AvM[address] [place] [phone] eRAmuvlg36.0-100.0[facility] on above:Performed By: #### RCBCDF ####[place] [address], [place] [phone]/100 leukocytes6.4 %NormalGerman Hospitalment on above:Performed By: #### RCBCDF ####[place] [address], [place] [phone]/100 WBC Auto (Bld)71.7 %NormalMercy Health Defiance Hospital on above:Performed By: #### RCBCDF ####[place] [address] [place], [place] [phone] mean volume (PMV)10.0 fLNormal9.0-12.7CMcCullough-Hyde Memorial Hospital on above:Performed By: #### RCBCDF ####[place] [address] Av[place], [place] [phone] 10*3/sGWrxw658-210LxqtttjagProvidence Hospital Comment on above:Performed By: #### RCBCDF ####[place] [address] [place], [place] [phone] (Leukocytes)13.28 10*3/uLHigh 3.70-11.00[facility] on above:Performed By: #### RCBCDF ####[place] [address] Av[place], [place] [phone] Rate Westergrenon 31-37-4261Rmg Rate Kexkijzskf81 mm/hrHigh0-20 [facility] on above:Performed By: #### PT, PTT, BMP, HFP, LD6, WSR, SEPG, MPASRM, KLFRS ####[place] [address], [place] [phone] Willebrand Diagon 03-72-3612fXBM91.7 s Lfhhga82.0-32.4CMcCullough-Hyde Memorial Hospital on above:Result Comment: Unfractionated Heparin Therapeutic Ranges:Standard Heparin Nomogram: 53 to 78 seconds (anti-Xa level of 0.3 to 0.7 U/ml)Low Dose/ACS Nomogram: 49 to 67 seconds (anti-Xa level of 0.2 to 0.5 U/ml)Stroke Treatment Nomogram: 49 to 67 seconds (anti-Xa level of 0.2 to 0.5 U/ml)Note: The APTT therapeutic range has been determined for the current lot of laboratory APTT reagent in use throughout the [facility].Performed By: #### VWFPN ####[place] [address] Av[place], [place] [phone]/VWF Ratio 0.7Normal>0.5CMcCullough-Hyde Memorial Hospital on above:Performed By: #### VWFPN ####[address] [phone]/ADP Rjfddkpkf422 CT (sec)High<118[facility] on above:Result Comment: Results are reported as Closure Time (CT) in seconds. Performed By: #### VWFPN ####[address] [phone]/EPI Mgjygoeht790 CT (sec)Normal<199 [facility] on above:Result Comment: Results are reported as Closure Time (CT) in seconds.Performed By: #### VWFPN ####[address] [phone] Binding-CBA 118 %Vjnjva31-890ObaqygrxqMercy Health Defiance Hospital on above:Result Comment: This test uses a reagent or kit labeled by the hand reamer as research use only a nd it is used per hand reamer's instructions. Its performance characteristics were determined by [facility] [place] in a manner consistent with CLIA requirements. This test has not been cleared by the U.S. Food and Drug Administration.Performed By: #### VWFPN ####[facility] [place], [place] [phone] VIII:C Jpdtf594 %Zxsezp02-985IncpmpzdmProvidence Hospital Comment on above:Performed By: #### VWFPN ####[place] [address] [place], [place] [phone]/VWF Ratio1.0Normal>0.4CMcCullough-Hyde Memorial Hospital on above:Performed By: #### VWFPN ####[place] [address] [place], [place] [phone](VW) (NOTE)NormalMercy Health Defiance Hospital on above:Result Comment: Performing Pathologist: Joleen Hector M.D., Ph.D.Abnormal - see comment below.SIGNIFICANT FINDINGS:1.Abnormal platelet function screen2.Elevated ristocetin cofactor activity Laboratory testing was performed to evaluate the presence of vonWillebrand disease. Both the PT and APTT results are not elevated.PLATELET FUNCTION SCREEN: The closure time (platelet adhesion andaggr egation) with the COL/EPI cartridge is normal and the closuretime with the COL/ADP cartridge is abnormal. This pattern is unusual,but suggests an abnormality of platelet function, von Willebranddisease, or an anti-platelet drug effect.VON WILLEBRAND TESTING: The ristocetin induced platelet aggregati onshows a normal dose response. The von Willebrand [...] these laboratory results with clinical findingsand medication history.Performed By: #### VWFPN ####[place] [address], [place] [phone] AggregNormal dose responseNormalCMcCullough-Hyde Memorial Hospital on above:Performed By: #### VWFPN ####[place] [address], [place] [phone] Co-Factor 150 %Ptot61-187KfsfhsyyeMercy Health Defiance Hospital on above:Performed By: #### VWFPN ####[place] [address], [place] [phone]/VWF Ratio0.9Normal>0.4CBellevue Hospital Comment on above:Performed By: #### VWFPN ####[address]CFrank[address], [place] [phone] Willebrand Ag159 %Zwwaxo14-831 [facility] on above:Performed By: #### VWFPN ####[address], [place] [phone] Willebrand MultNormal multimer amount and pattern.NormalMercy Health Defiance Hospital on above:Result Comment: Reviewed by Joleen Hector M.D.,Ph.D ([id number])This test was developed and its performance characteristics determined by [facility] [place] ([facility]ENTERPLMI).It has not been cleared or approved by the FDA. [facility] is regulated under CLIA as qualified to perform high-complexity testing.This test is used for clinical purposes. It should not be regarded as investigational or for research.Performed By: #### VWFPN ####[address]CFrank[address], [place] [phone] 09-25-2017 CNOVOffice Visit (CARDFT) --------GLADIS MICHAEL ([id number]) 1975 [facility] Department09/25/17 10:30 AM JESUS CHEATHAM During your visit today, we recorded the following information about you: PulseRespiration Blood pressure Weight 68/minute 18/minute 139/78 108 kg Height 1.575 Rishi Cheatham MD 09/25/2017 10:54 AM [facility] Department of Cardiovascular MedicineOUTPATIENT VISIT DATE 09/25/16OUTPATIENT VISIT TYPEESTABLMARTIN GENERAL [facility]ITALPRE[facility] CARE PHYSICIAN:Joseph Harris DO[address] [place] [address]Cguxa: [phone]: [phone] F COMPLAINT:Patient presents with:Follow UpHISTORY OF PRESENT ILLNESS:Gladis Michael is a 41 year old female with a past cardiac history ofpalpitations, hypertensive episodes associated with flushing.05/22/2017The patient presents today as a new consult. The patient has previously beencared for by a reactor technician in [place]. She has been on pindolol andlisinopril for many years. She apparently did not tolerate metoprolol in thepast. She claims that metoprolol made her heart rate go into onv552m. Thepatient states that she has episodes off and on of a flushed feeling followedby high bloodpressure readings and dizziness. She also feels her heartracing. She feels this has been worse overthe past 2 weeks. She has hadepisodes like this though for many years. [facility]ologic stress, echo and monitors. Unfortunately Gregory not have any of those records to review. The patient wasseen in the emergency room earlier todayfor epistaxis. She also was seen [place]he [place] with a complaint of dizziness. Herworkup was negative. There was no evidence of any arrhythmia during her workuphere at this emergency room today. Her blood tests were within normal limits.Her troponin was normal. EKG wasunremarkable. The patient admits that shegets very anxious. She has had problems with this for sometime. Her primarycare physician has started her on Zoloft. She does complain of a chestsqueezing sensation at the end of our interview. Apparently this has beengoing on for years also. Yesterday she had several episodes of a squeezingsensation which lasts for only 5-10 seconds. This does not sound a nginal.09/25/2017The patient presented today for a follow-up after [...] sincediscontinued that medication. She is ready to startactively losing weight.She denies any other chest discomfort or unusual shortness of breath. Shedenies any palpitations, syncopal or near syncopal episodes.PAST MEDICAL HISTORYDiagnosis Date- Anxiety- Hypertension- LeukocytosisPAST SURGICAL HISTORYProcedure Laterality Date- DELIVERY ONLY , low transverse- CHOLECYSTECTOMYSocial HistorySubstance Use Topics- Smoking status: Former Smoker Packs/day: 0.50 Years: 10.00 Types: Cigarettes Quit date: 05/22/2005- Smokeless tobacco: Never Used- Alcohol use NoNo family history on file.ALLERGIES:ALLERGIESAllergen Reactions- Toprol Xl [Metoprol* Other: See Comments ANDquot;heart racesANDquot; per patientMEDICATIONS:lisinopril (ZESTRIL, PRINIVIL) 5 mg tablet Take by mouth once daily.pindolol (VISKEN) 5 mg tablet Take 5 mg by mouth twice daily.sertraline (ZOLOFT) 50 mg tablet Take 50 mg by mouth once daily.REVIEW OF SYSTEMS:A completereview of systems was obtained and is remarkable for that notedabove. The remaining systems are unremarkable.I personally interviewed, confirmed and edited the above information ifobtained by others.PHYSICAL EXAMINATION:BP 139/78 Pulse 68 Resp 18 Ht 157.5 cm (5' 2ANDquot;) Wt 108 kg (238 lb) SpO2 100% BMI 43.53 kg/p3Hwyivcu: Well appearing, in no acute distress.Eyes: Conjunctiva normal, sclera normalNeck: No jugular venous distention, no palpable thyromegaly.Heart: Regular rhythm, S1, S2 normal, no S3, no S4. No murmur. No carotidbruits.Respiratory: Clear to auscultation bilaterally. Good respiratory effort.GI: Soft, nontender, bowel sounds normal, no palpable hepatosplenomegalyExtremities: Normal pulses in distal lower extremities. Absent lower extremityedemaNeuro: Alert, cooperative with no focal deficit.Psych: Pleasant and cooperative.Skin: No rashes or wounds.CARDIOVASCULAR MEDICINE TESTING:A 48 hour Holter monitor performed on 08/28/2015 revealed an average heart lxqpuk15 bpm. The range was 45-126 bpm. The patient had for PVCs and 5 PACs.There were no other arrhythmias noted.A 2-D echocardiogram obtained on 07/05/2015 revealed mild concentric leftventricular hypertrophy, left ventricular ejection fraction of 65%, no evidenceof diastolic dysfunction, mild biatrial enlargement, mild mitral regurgitation,trivial tricuspid regurgitation and a right ventricular systolic pressure of 35mmHg.A 2- D echocardiogram performed on 06/12/2017 revealed mild concentric [...] for years. Patient had negative workup in [place]. Placed onpindolol and lisinopril.4. Non-rheumatic mitral regurgitation, mild - ICD9: 424.0, ICD10: I34.05. Essential hypertension, lisinopril increased to 5 mg daily, fair controltoday.6. Morbid obesity, patient feels weight gain secondary to Zoloft,ready tostart aggressive weight loss.PLAN:Continue lisinopril at 5 mg by mouth daily. A prescription was sent in for 90tablets with 3 refills.Low- sodium diet.Low caffeine intake.Low alcohol intake.Regular aerobic activity.Weight loss.Follow-up in the office in 3-4 months or sooner if necessary. We are lookingfor a weight loss of 5-10 pounds at next visit.A copy of this note will be provided to the requesting physician by [facility] or to the requesting physician via U.S. Mail.This document was generated utilizing Plandree dictation. I have reviewed andverified that the contentsof the document are accurate with the exception ofminor grammatical, spelling and punctuation errors.CONTACT INFORMATION:Thank you for allowing us to participate in the care of this very pleasantpatient. Please free to contact us if we can be of any further assistance.Jesus Cheatham MD, FACCRobert and Mary MurrayDepartment of Cardiovascular MedicinePike Community Hospitalrt and Vascular Institute[address] [address]Wwujtz: [phone] Referring Provider: JOSEPH HARRIS [[id number]]Allergies As of Date: 09/25/2017 Noted Allergy ReactionTOPROL XL (METOPROLOL) 04/11/2016 14 - Other: See Comments Comments: heart races per patientDateReviewed: 09/25/2017Reviewed by: Jesus Cheatham - Fully AssessedReason for Visit: Follow Up [171]Primary Visit Diagnosis:Essential hypertension [I10] Other Visit Diagnoses:Premature atrial complexes [I49.1] PVC (premature ventricular contraction) [I49.3] Obesity, Class III, BMI 40-49.9 (morbid obesity) ([facility]) [E66.01]Order(s):lisinopril (ZESTRIL, PRINIVIL) 5 mg tabletTake 1 [...] RN 09/25/2017 10:15 AM >> JEROME BYRNES [facility] Sep 25, 2017 10:15 AM Received from: External Pharmacy >> Shane Velasquez RN 09/25/2017 10:16 AM >> JEROME BYRNES [facility] Sep 25, 2017 10:16 AMProblem List As Of Date 09/25/2017 Noted Resolved Lymphocytosis [D72.820] INVALID FOR* Cervical adenopathy [R59.0] INVALID FOR* Obesity, Class III, BMI >= 40 E66.01 [E66.01] INVALID FOR*Prescriptions ordered this encounter Disp Refills Start End LISINOPRIL5 MG TABLET 90 t* 3 09/25/2017 Route: ORAL Sig: Take 1 tablet by mouth once daily.Medications Discontinued During This Encounter lisinopril 2.5 mg tablet 03/24/2016 09/25/2017 Class: Historical Med Route: ORAL Sig: Take 2.5 mg by mouth once daily. Disc: Erroneous entry lisinopril (ZESTRIL, PRINIVIL)5 mg * 09/23/2017 09/25/2017 Class: Historical Med Route: ORAL Sig: Take by mouth once daily. Disc: Reason for discontinue is not on file. Status:Closed by NANI CHEATHAM MD on 09/25/17Normal Providence HospitalPROGRESSon [id number] ID: [id number]: Jesus Petersonervice: (none)Author Type: PhysicianType: Progress N otesFiled: 09/25/2017 10:54 AMNote Text:Heart and V[facility] Department of Cardiovascular MedicineOUTPATIENT VISIT DATE 09/25/16OUTPATIENT VISIT TYPEESTABLMARTIN GENERAL HOSPITALPRNORTHEAST [facility] PHYSICIAN:Joseph Harris, DO[address] [place] [address]Anafx: [phone]: [phone] COMPLAINT:Patient presents with:Follow UpHISTORY OF PRESENT ILLNESS:Gladis Michael is a 41 year old female with a past cardiac history ofpalpitations, hypertensive episodes associated with flushing.05/22/2017The patient presents today as a new consult. The patient has previouslybeen cared for by a reactor technician in [place]. She has been on pindolol andlisinopril for many years. She apparently did not tolerate metoprolol inthe past. She claims that metoprolol made her heart ratego into dwe047c. The patient states that she has episodes off and on of a flushedfeeling followed by high blood pressure readings and dizziness. She alsofeels her heart racing. She feels this has been worse over the past 2weeks. She has had episodes like this though for many years. [facility] including a cardiac CTA,pharmacologic stress, echo and monitors. Unfortunately I do not have anyof those records to review. The patient was seen in the emergency roomearer today for epistaxis. [place] complaint of dizziness. Her workup wasnegative. There was no evidence of any arrhythmia during her workup hereat this emergency room today. Her blood tests were within normal limits.Her troponin was normal. EKG was unremarkable. The patient admits thatshe gets very anxious. She has had problems with this for some time. [facility] [...] hydrochlorothiazide however the patient never gotthat medicine. Alinahas continued her pindolol. She unfortunately hasgained 14 pounds since her last visit here. She feels that was secondaryto the use of Zoloft. She has since discontinued that medication. She isready to start actively losing weight. She denies any other chestdiscomfort or unusual shortness of breath. She denies any palpitations,syncopal or near syncopal episodes.PAST MEDICAL HISTORYDiagnosis Date-Anxiety- Hypertension- LeukocytosisPAST SURGICAL HISTORYProcedure Laterality Date- DELIVERY ONLY , low transverse- CHOLECYSTECTOMYSocial HistorySubstance Use Topics- Smoking status: Former Smoker Packs/day: 0.50 Years: 10.00 Types: Cigarettes Quit date: 05/22/2005- Smokeless tobacco: Never Used- Alcohol use NoNo family history on file.ALLERGIES:ALLERGIESAllergen Reactions- Toprol Xl [Metoprol* Other: See Comments heart races per patientMEDICATIONS:lisinopril (ZESTRIL, PRINIVIL) 5 mg tablet Take by [...] kg (238 lb) SpO2 100% BMI 43.53 kg/o7Bfijhyo: Well appearing, in no acute distress.Eyes: Conjunctiva normal, sclera normalNeck: No jugular venous distention, no palpable thyromegaly.Heart: Regular rhythm, S1, S2 normal, no S3, no S4. No murmur. No carotidbruits.Respiratory: Clear to auscultation bilaterally. Good respiratory effort.GI: Soft, nontender, bowel sounds normal, no palpable hepatosplenomegalyExtremities: Normal pulses in distal lower extremities. Absent [...] 07/05/2015 revealed mild concentric leftventricular hypertrophy, left daniel tricular ejection fraction of 65%, noevidence of diastolic [...] exam of the brain was unremarkable on 09/23/2017 .IMPRESSION:1. Premature atrial complexes - ICD9: 427.61, ICD10: I49.1 (primarydiagnosis), seen on Holter monitor in 2015.2. PVC (premature ventricular contraction) - ICD9: 427.69, ICD10: I49.3,rare PVCs on Holter monitor in 2015.3. Palpitations - ICD9: 785.1, ICD10: R00.2, feelings of palpitationsa ssociated with elevated blood pressure and flushed feeling, these havebeen occurring for years. Patient had negative workup in [place]. Placedon pindolol and lisinopril.4. Non-rheumatic mitral regurgitation, mild - ICD9: 424.0, ICD10: I34.05. Essential hypertension, lisinopril increased to 5 mg daily, faircontrol today.6. Morbid obesity, patient feels weight gain secondary to Zoloft, readyto start aggressive weight loss.PLAN:Continue lisinopril at 5 mg by mouth daily. A prescription was sent infor 90 tablets with 3 refills.Low-sodium diet.Low caffeine intake.Low alcohol intake.Regular aerobicactivity.Weight loss.Follow-up in the office in 3-4 months or sooner if necessary. We arelooking for a weight loss of 5-10 pounds at next visit.A copy of this note will be provided to the requesting physician by [facility] or to the requesting physician via U.S. Mail.This document was generated utilizing Plandree dictation. I have reviewedand verified that the contents of the document are accurate with theexception of minor grammatical, spelling and punctuation errors.CONTACT INFO RMATION:Thank you for allowing us to participate in the care of this very pleasantpatient. Please free to contact us if we can be of any furtherassistance.Jesus Cheatham MD, FACCRobert and Mary MurrayDepartment of Cardiovascular MedicinePike Community Hospitalrt and Vascular Institute[address], [place] [address]Dbdqlf: [phone] NormalCBellevue HospitalCT-CT Head or Brain w/o Contrast IMPORTon [id number]-CT Head or Brain w/o Contrast IMPORT Images were obtained outside of [facility] [id number] HospitalCNOVSPon [id number] Visit (SP) Office (VEE) --------FERNANDAGLADIS ([id number]) 1975 FDate Time Provider Ggdaieeymc52/28/17 3:15 PM ISAAC SHELTON During your visit today, we recorded the following information about you: Temperature Respiration Blood pressure Weight 98.7 degrees 18/minute 168/82 105.1 kg Height 1.6 UTvalorie Shelton DO 06/07/2017 12:55 AM SignedPATIENT NAME: Gladis PatelarMRN: [id number]: Joseph Harris DO[address] [place] [address] CARE PHYSICIAN: MASOOD Rubin PHYSICIANS:CHIEF COMPLAINT: Lymphocytosis (primary encounter diagnosis)Cervical adenopathyASSESSMENT/PLAN:1. LymphocytosisAbsolute lymphocytosis - BCR ABL and flow cytometry negative in April 2016.Paraprotein evaluation reveals slight IgG Level M spike quantitative is 0.16.No other diagnostic abnormalities. 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 For extreme low level of Mprotein and the immunofixation report which states thatthe bands are ratherfaint, we will continue to monitor onlyJak 2 was negative in January 2017. Peripheral flow cytometry and BCR ABL PCRwas negative in April 2016.CT of the chest abdomen and pelvisin March 2017 did not show any areas ofobvious neoplasm.Ea r nose and throat evaluation likely from clinic main campus physician . We will continue to monitor her only. She will repeat imaginginDecember. She'll also make an appointment with her primary care provider.LDH and sedimentation rate within normal limits.(D72.820) Lymphocytosis (primary encounter diagnosis)(R59.0) Cervical adenopathyNo orders found for this visit on 06/05/17. No Follow-up on file. HPI: This is a 41 year old female primary care providerDr. Harris. Pastmedical history heart palpitations, hypertension, trace mitral regurgitation,ovarian cysts, anxiety, chronic lymphocytosis. Lisinopril 2.5 mg tablet,pindolol 5 mg 1 by mouth twice a day. We follow her for chronic leukocytosis and mild thrombocytosis. no clearpathologic diagnosis has been made. She was essentially asymptomatic atdiagnosis in mid to late 2015. Rodrick 2 was negative inAugu2016. Peripheralflow cytometry and BCR ABL PCR was [...] normal liver and kidneyfunction, normal total protein andalbumin, normal hemoglobin 13.4, normalkidney function, normal TSH.Family History.Mother has Jak2 positive essential thrombocytosis/polycythemia.Her sisters had similar disease.March 13, 2017 Feb 24 she went to her PCP for Ear and throat pain. She had ANDquot;puspocketsANDquot; in her throat. She was given augmentin by Dr. Jose. Fever for5 days straight. Went to ER 02/26. [place] was negative, strep negative. Flunegative. She was placed on Azithromycin. Still not improving 03/02 went backto ER.She was vomiting and nausea with persistent fevers [...] doing overall better. Still with throat soreness. Stillcoughing,overall worse, especially at night. No longer on an antibiotic. No morefevers about 3 wks.Nausea about same. Doesn't take nausea med. She pukedlast night after a coughing spell. Sinues are still good. Sweats improved.Energy improved. Dizzy improved but still perists after working 4 or 5 hours.Sees ENT on . Robert HERNANDEZ.April 28, 2017 still complains of constant cough, sore throatand loses her voice at times.No fevers. No [...] racing heart and elevated BP.She previously saw reactor technician in [place].She is scheduled for echo. She has [place] Cough, sore throat [...] nosebleeds. ENT: No scleral icterus. continued mild sub mandibularadenopathy. Borderline larger than normal. NECK: Supple, no [...] tingling. BACK: Notenderness to palpation. No flank tenderness.MEDICATIONS:pindolol (VISKEN) 5 mg tablet Take 5 mg by mouth twice daily.sertraline (ZOLOFT) 50 mg tablet Take 50 mg by mouth once daily.lisinopril 2.5 mg tablet Take 2.5 mg by mouth once daily.ALLERGIES:ALLERGIESAllergen Reactions- Toprol Xl [Metoprol* Other: See Comments ANDquot;heart racesANDquot; per patientPAST MEDICAL HISTORYDiagnosis Date- Anxiety- Hypertension- LeukocytosisPAST SURGICAL HISTORYProcedure Laterality Date- DELIVERY ONLY , low transverse- CHOL ECYSTECTOMYNo family history on file.SOCIAL HISTORY:Social HistorySubstance Use Topics- Smoking status: Former Smoker Packs/day: 0.50 Years: 10.00 Types: Cigarettes Quit date: 05/22/2005- Smokeless tobacco: Never Used- Alcohol use NoLABS:RADIOLOGY/OTHER STUDIES:COUNSELING:I discussed with Jhoan natural history, treated course, and prognosisof Lymphocytosis (primary encounter diagnosis)Cervical adenopathy; my impression as well as the rationale, logistics, risks,benefits, and alternatives to the management options noted above; and myrecommendations listed below. The patient Gladis Whelan verbalizedunderstanding and agreed with these recommendations and plan. I answered allquestions satisfactorily..Hai Shelton D.O.Medical OncologistKnightdale, [place]Referring Provider: ISAAC SHELTON [[id number]]Allergies As of Date: 06/05/2017 Noted Allergy ReactionTOPROL XL (METOPROLOL) 04/11/2016 14 - Other: See Comments Comments: heart races per patientDate Reviewed: 06/05/2017Reviewed by: Donna Favio - Fully AssessedReason for Visit: Lymphocytosis [Other] Cmt: 5 week follow upPrimary Visit Diagnosis:Lymphocytosis [D72.820] Other Visit Diagnosis:Cervical adenopathy [R59.0]Order(s):HIV 1,2 COMBO (AG/AB) [SQHIV12] Order #: [id number] FUTUREDisposition: Return in about 1 year (around 06/05/2018), or cancel ENT f/u in [place]..Follow-up and Disposition History RecordedPrescriptions as of 06/05/2017 Sig: PINDOLOL 5 MG TABLET Take 5 mg by mouth twice kwasi* SERTRALINE 50 MG TABLET Take 50 mg by mouth once kwasi* LISINOPRIL 2.5 MG TABLET Take 2.5 mg by mouth once buck*Problem List As Of Date 06/05/2017 Noted Resolved Lymphocytosis [D72.820] INVALID FOR*Cervical adenopathy [R59.0] INVALID FOR*Encounter Status:Closed by ISAAC SHELTON DO on 06/07/17Normal Providence HospitalHIV 12 Combo (Ag/Ab)on [id number] 12 Ag/AbNon ReactiveNormalNon ReactiveProvidence HospitalComment on above:Result Comment: (NOTE)HIV Information: [place] Rev. Code 3701.243(E):This information has been disclosed [...] the release of HIV test results or diagnoses.Performed By: #### HIV12C ####[facility] [address] [place], [place] [id number] ID: [id number]: Isaac Carrasco: (none)Author Type: PhysicianType: Progress NotesFiled: 06/07/2017 12:55 AMNote Text:PATIENT NAME: Gladis PatelarMRN: [id number] PHYSICIAN: [place] [address]HMQJHKD CARE PHYSICIAN: MASOOD Rubin PHYSICIANS:CHIEF COMPLAINT: Lymphocytosis (primary encounter diagnosis)Cervical adenopathyASSESSMENT/PLAN:1. LymphocytosisAbsolute lymphocytosis - BCR ABL and flow cytometry negative in April2016. Paraprotein evaluation reveals slight IgG Level M spikequantitative is 0.16. No other diagn ostic abnormalities. At this pointwe are considering this [...] late 2015. Rodrick 2 was negative in January2017.Peripheral flow cytometry and BCR ABL PCR was negative in April 2016.Former smokerPrevious CBC from January 2016 showed white blood cell count of 12.3 withelevated platelets of 482,000 and a normal hemoglobin with normal MCV of85.9. Neutrophil percentage was 67% leaving an absolute neutrophil countof 8300.Recently had some chronic fatigue, nausea, lightheadedness, headaches.Laboratory fromJanuary 2016 was reviewed revealed normal liver and kidneyfunction, normal total protein and albumin, normal hemoglobin 13.4, normalkidney function, normal TSH.Family History.Mother has Jak2 positive essential thrombocytosis/polycythemia.Her sisters had similar disease.March 13, 2017 Feb 24 she went to her PCP for Ear and throat pain. She had puspockets in her throat. She was given augmentinby Dr. Jose. Fever for5 days straight. Went to ER 02/26. [place] was negative, strep negative.Flu negat daquan. She was placed on Azithromycin. Still not [...] tonsillar region.No mass. Focal groundglass opacities in theright upper lobe, nosignificant adenopathy. Borderline splenomegaly, fatty liver,low-attenuation area in the left hepatic lobe adjacent to the falciformligament which was of unclear etiology. Cysts in bilateral adnexa.June 05, 2017 she has been seeing dr cheatham for flushing and racing heart and elevatedBP.She previously saw reactor technician in [place].She is scheduled for echo. She has valvular issues and was getting themyearly in [place] to moving here. Cough, sore throat better now.Dizzy now occasionally. She fell a month ago out of bed and she had CThead.Vitals: BP 168/82 Temp (Src) 98.7 (Oral) Resp 18 Ht 5' 2.992 (1.60m) Wt 231 lb 9.6 oz (105.1kg) BMI 41.04 kg/(m2). Body surfacearea is 2.16 meters squared. REVIEW OF SYSTEMS PHYSICAL EXAM ECOG PS: 0 NEGATIVES POSITIVESNEGATIVES POSITIVESGEN: fevers, sweats, chills. Overall feels well. continued doing withoccasional intermittent dizziness. well appearing slightlyoverweightSKIN: lesions, rash, itching. SKIN: Normal color, texture, turgor, norashes or lesionsHEENT: significant headaches, changes in hearing, changesin vision, nosebleeds. ENT: No scleral icterus. continued [...] No ectopy.GI: abdominal pain, diarrhea, constipation, melena, hematochezia.cont inued nausea. ABDM: Soft. Non-tender. Non-distended. Bowel soundsnormal. No masses. No hepatosplenomegaly.HEME: prolonged bleeding, bruising, adenopathy. EXT: No clubbing,cyanosis or edema.MUSC: joint pain or swelling. MUSC: No joint swelling, deformity, ortenderness.NEURO: syncope, seizures, peripheral numbness or tingling. BACK: Notenderness to palpation. No flank tenderness.MEDICATIONS:pindolol (VISKEN) 5 mg tablet Take 5 mg by mouth twice daily.sertraline (ZOLOFT) 50 mg tablet Take 50 mg bymouth once daily.lisinopril 2.5 mg tablet Take 2.5 mg by mouth once daily.ALLERGIES:ALLERGIESAllergen Reactions- Toprol Xl [Metoprol* Other: See Comments [...] The patient Gladis Michaelverbalized understanding and agreed withthese recommendations and plan.I answered all questions satisfactorily..Hai Shelton D.O.Medical On [place], [place]NoDoctors Hospital Remote Abs Gran + CBC (for [facility] use only)on 79-08-5027Wioou Gran Count10.28 k/uL High1.45-7.50Providence HospitalErythrocyte distribution width Auto Ratio (RBC)13.9 %Ecfmfl28.5-15.0Providence HospitalErythrocytes (RBC)4.91 10*6/uLNormal3.90-5.20Providence HospitalHematocrit (HCT)39.7 %Normal 36.0-46.0Providence HospitalHemoglobin mass conc (Bld)13.2 g/dLNormal 11.5-15.5CBellevue HospitalMCH26.9 sLCevqgu23.0-34.0UK HealthcareHC mass conc (RBC)33.2 g/dOVnmvjp61.5-36.0[facility] MCV80.9 lCOaound78.0-100.0Providence HospitalPlatelet mean volume (PMV) 9.5 fLNormal9.0-12.7CBellevue HospitalPlatelets497 10*3/tRGyyt103-225 Providence HospitalWBC (Leukocytes)14.20 10*3/uLHigh3.70-11.00Providence HospitalCNOVon [id number] Visit (CARDFT) --------GLADIS MICHAEL ([id number]) 1975 [facility] Time Provider Kbtohnomfm63/14/17 2:00 PM JESUS CHEATHAM During your visit today, we recorded the following information about you: PulseRespiration Blood pressure Weight 69/minute 18/minute 139/77 101.6 kg Height 1.6 Rishi Cheatham MD 05/22/2017 3:15 PM [facility] Department of Cardiovascular MedicineOUTPATIENT VISIT DATE 05/22/17OUTPATIENT VISIT TYPENEWWILLIS-[facility] HEALTH CARE PHYSICIAN:Joseph Harris, DO[address] [place] [address]Jkezw: [phone]: [phone] COMPLA INT:Patient presents with:PalpitationsHISTORY OF PRESENT ILLNESS:Gladis Michael is a 41 year old female with a past cardiac history ofpalpitations, hypertensive episodes associated with flushing.The patient presents today as a new consult. The patient has previously beencared for by a reactor technician in [place]. She has been on pindolol andlisinopril for many years. [facility] She claims that metoprolol made her [...] years. She had a complete workup in [facility] including a cardiac CTA, pharmacologic stress, echo and monitors. Unfortunately I do not have any of those records to review. The patient wasseen in the emergency room earlier today for epistaxis.She also was seen int emergency room in [place] last Friday with a complaint of dizziness. Herworkup was negative. There was no evidence of any arrhythmia during her workuphere at this emergency room today. Her blood tests were within normal limits.Her troponin was normal. EKG was unremarkable. The patient admits that shegets very anxious. She has had problems with this for some time. Her [facility] has started her on Zoloft. She does complain of a chestsqueezing sensation at the end of our interview. Apparently this has beengoing on for years also. Yesterday she had several episodes of a squeezingsensation which lasts for only 5-10 seconds. This does not sound anginal.PAST MEDICAL HISTORYDiagnosis Date- Anxiety- Hypertension- LeukocytosisPAST SURGICAL HISTORYProcedure Laterality Date- DELIVERY ONLY , low transverse- CHOLECYSTECTOMYSocial HistorySubstanceUse Topics- Smoking status: Former Smoker Packs/day: 0.50 Years: 10.00 Types: Cigarettes Quit date:05/22/2005- Smokeless tobacco: Never Used- Alcohol use NoNo family history on file.ALLERGIES:ALLERGIESAllergen Reactions- Toprol Xl [Metoprol* Other: See Comments ANDquot;heart racesANDquot; per patie ntMEDICATIONS:pindolol (VISKEN) 5 mg tablet Take 5 mg [...] CT contrast administrationguidelines link.REVIEW OF SYSTEMS:A complete revi ew of systems was obtained and is remarkable for that notedabove. The remaining systems are unremarkable.I personally interviewed, confirmed and edited the above information ifobtained by others.PHYSICAL EXAMINATION:BP 139/77 Pulse 69 Resp 18 Ht 160 cm (5' 3ANDquot;) Wt 101.6 kg (224 lb) SpO2 98% BMI 39.68 kg/r7Iguyxde: Well appearing, in no acute distress.Eyes: Conjunctiva normal, sclera normalNeck: No jugular venous distention, no palpable thyromegaly.Heart: Regular rhythm, S1, S2 normal, no S3, no S4. No murmur. No carotidbruits.Respiratory: Clear to auscultation bilaterally. Good respiratory effort.GI: Soft, nontender, bowel sounds normal, no palpable hepatosplenomegalyExtremities: Normal pulses in distal lower extremities. Absent [...] obtained on 07/05/2015 revealed mild concentric leftventricular hypertrophy,left ventricular ejection fraction of 65%, no evidenceof diastolic dysfunction, mild biatrial enlargement, mild mitral regurgitation,trivial tricuspid regurgitation and a right ventricular systolic pressure of 35mmHg.IMPRESSION:1. Premature atrial complexes - ICD9: 427.61, ICD10: I49.1 (primary diagnosis),seen on Holter monitor in 2016.2. PVC (premature ventricular contraction) - ICD9: 427.69, ICD 10: I49.3, rarePVCs on Holter monitor in 2016.3. Palpitations - ICD9: 785.1, ICD10: R00.2, feelingsof palpitationsassociated with elevated blood pressure and flushed feeling, these have beenoccurring for years. Patient had negative workup in [place]. Placed onpindolol and lisinopril.4. Non-rheumatic mitral regurgitation, [...] via U.S. Mail.This document was generated utilizing Virtifyation. I have reviewed andverified that the contents of the document are accurate with the exception ofminor grammatical, spelling and punctuation errors.CONTACT INFORMATION:Thank you for allowing us to participate in the care of this very pleasantpatient. Please free to contact us if we can be of any further assistance.Jesus Cheatham MD, [facility] and [facility] MurrayWvpartment of Cardiovascular MedicinePike Community Hospitalrt and Vascular Institute[address] [place], [place] [address]Lgeeby: [phone] Referring Provider: ISAAC SHELTON [[id number]]Allergies As of Date: 05/22/2017 Noted Allergy ReactionTOPROL XL (METOPROLOL) 04/11/2016 14 - Other: See Comments Comments: heart races per pat ientDate Reviewed: 05/22/2017Reviewed by: Jesus Cheatham - Fully AssessedReason for Visit: Palpitations [79]Primary Visit Diagnosis:Premature atrial complexes [I49.1] Other Visit Diagnoses:PVC(premature ventricular contraction) [I49.3] Palpitations [R00.2] Non-rheumatic mitral regurgitation, mild [I34.0]Order(s):ECHO [[id number]] Order #: [id number]: 1 FUTUREPrescriptions as of 05/22/2017 Sig: PINDOLOL 5 MG TABLET Take 5 mg by mouth twice kwasi* SERTRALINE 50 MG TABLET Take 50 mg by mouthonce kwasi* LISINOPRIL 2.5 MG TABLET Take 2.5 mg by mouth once buck* IV CONTRAST (RADIOLOGY PROCED* CT Chest W - Inject, intraveno*Problem List As Of Date 05/22/2017 Noted Resolved Lymphocytosis [D72.820] INVALID FOR* Cervical adenopathy [R59.0] INVALID FOR* Status:Closed by NANI CHEATHAM MD on 05/22/17NoPar[facility] [phone] ID: [id number]: Jesus Petersonervice: (none)Author Type: PhysicianType: Progress NotesFiled: 05/22/2017 3:15 PMNote Text:Heart and Vascular InstituteRobunm hospital and [facility] Department of Cardiovascular MedicineOUTPATIENT VISIT DATE 05/22/17OUTPATIENT VISIT TYPENEWPRIMARY CARE PH YSICIAN:Joseph Harris DO[address] [place] [address]Mkvvj: [phone]: [phone] COMPLAINT:Patient presents with:PalpitationsHISTORY OF PRESENT ILLNESS:Gladis Michael josselin 41 year old female with a past cardiac history ofpalpitations, hypertensive episodes associated with flushing.The patient presents today as a new consult. The patient has previouslybeen cared for by a reactor technician in [place]. She has been on pindolol andlisinopril for many years. She apparently did not tolerate metoprolol inthe past. She claims that metoprolol made her heart rate go into bjr187v. The patient states that she has episodes off and on of a flushedfeeling followed by high blood pressure readings and dizziness. She alsofeels her heart racing. She feels this has been worse over the past 2weeks. She has had episodes like this though for many years. She [facility] including a cardiac CTA,pharmacologic stress, echo and monitors. Unfortunately I do not have anyof those records to review. The patient was seen in the emergency roomearer today for epistaxis. [place] a complaint of dizziness. Her workup wasnegative. There was no evidence of any arrhythmia during her workup hereat this emergency room today. Her blood tests were within normal limits.Her troponin was normal. EKG was unremarkable. The patient admits thatshe gets very anxious. She has had problems with this for some time. [facility]. She [...] Used- Alcohol use NoNo family history on file.ALLERGIES:ALLERGIESAllergen Reactions- Toprol Xl [Metoprol* Other: See Comments heart races per patientMED ICATIONS:pindolol (VISKEN) 5 mg tablet Take 5 mg by mouth twice daily.sertraline (ZOLOFT) 50 mg tablet Take 50 mg by mouth once daily.lisinopril 2.5 mg tablet Take 2.5 mg by mouth once daily.iv contrast (radiology procedure) CT Chest W - Inject, intravenously, oncefor 1 dose.No IV access, insert [...] kg (224 lb) SpO2 98% BMI 39.68 kg/e4Hyrlzxa: Well appearing, in no acute distress.Eyes: Conjunctiva normal, sclera normalNeck: No jugular venous distention, no palpable thyromegaly.Heart: Regular rhythm, S1, S2 normal, no S3, no S4. No murmur. No carotidbruits.Respiratory: Clear to auscultation bilaterally. Good respiratory effort.GI: Soft, nontender, bowel sounds normal, no palpable hepatosplenomegalyExtremities: Normal pulses in distal lower extremities. Absent [...] noevidence of diastolic dysfunction, mild biatrial enlargement, mildmitralregurgitation, trivial tricuspid regurgitation and a right ventricularsystolic pressure of 35mmHg.IMPRESSION:1. Premature atrial complexes - ICD9: 427.61, ICD10: I49.1 (primarydiagnosis), seenon Holter monitor in 2016.2. PVC (premature ventricular contraction) - ICD9: 427.69, ICD10: I49.3,rare PVCs on Holter monitor in 2016.3. Palpitations - ICD9: 785.1, ICD10: R00.2, feelings of palpitationsassociated with elevated blood pressure and flushed feeling, these havebeen occurring for years.Patient had negative workup in [place]. Placedon pindolol and lisinopril.4. Non-rheumatic mitral reg urgitation, mild - ICD9: 424.0, ICD10: I34.0PLAN:2-D echocardiogram.Low caffeine intake.Low alcoholintake.Regular aerobic activity.No change in medical therapy at this time.We will contact the patient with the results of the echocardiogram andmake further recommendations at that time.Return to theoffice in 6 months or sooner if necessary.A copy of this consultation note will be provided to the r equestingphysician by way of shared medical record or to the requesting physicianvia U.S. Mail.Thisdocument was generated utilizing WeatherNation TVon dictation. I have reviewedand verified that the contents ofthe document are accurate with theexception of minor grammatical, spelling and punctuation errors.CONTACT INFORMATION:Thank you for allowing us to participate in the care of this very pleasantpatient. Please free to contact us if we can be of any furtherassistance.Jesus Cheatham MD, FACCRobertanrobert Hernandez [facility] of Cardiovascular MedicinePike Community Hospitalrt and Vascular Institute[address] [address]Smpvnj: [phone] NoDoctors HospitalCNOVSPon [id number] (SP) Office ([place]) --------GLADIS MICHAEL ([id number]) 1975 FDate Time Provider Ojdupuncoz35/20/17 11:15 AM ISAAC SHELTON During your visit today, we recorded the following information about you: Temperature Pulse Respiration Blood pressure 98.7 degrees 71/minute 18/minute 151/101 Weight Height 103.2 kg 1.6 mTvalorie Shelton DO 05/03/2017 3:18 PM SignedPATIENT NAME: Gladis PatelarMRN: [id number] PHYSICIAN: Joseph Harris DO[address] [place] [address]VOSPBYQ CARE PHYSICIAN: MASOOD Rubin PHYSICIANS:CHIEF COMPLAINT: Lymphocytosis (primary encounter diagnos is)ASSESSMENT/PLAN:1. LymphocytosisAbsolute lymphocytosis - BCR ABL and flow [...] neoplasm.[facility]a r [facility] . We will continue to monitor her only. She will repeat imaging inDecember. She'll also make an appointment with her primary care provider.LDH and sedimentation ratewithin normal limits.(D72.820) Lymphocytosis (primary encounter diagnosis)Visit (SP) [...] leukocytosis and mild thrombocytosis. no clearpathologic diagnosis hasbeen made. She was essentially asymptomatic atdiagnosis in [...] normal TSH.Family History.Mother has Jak2 positive essential thrombocytosis/polycythemia.Her sisters had similar disease.March 13, 2017 Feb 24 she went to her PCP for Ear and throat pain. She had ANDquot;puspocketsANDquot; in her throat. She was given augmentin by Dr. Jose. Fever for5 days straight. Went to ER 02/26. [place] was negative, strep negative. Flunegative. She was [...] daystarted. No night sweats. Apparently CXRs have beennegative. She is snoringa lot. She never had [...] OF SYSTEMS PHYSICAL EXAM ECOG PS: 0 NEGATIVESPOSITIVES NEGATIVES POSITIVESGEN: fevers, sweats, chills. Overall feels well. No sweats or dizzinessSKIN: lesions, rash, itching. SKIN: Normal color, texture, turgor, no rashesor lesionsHEENT: signifi cant headaches, changes in hearing, changes in vision, nosebleeds. right-sided sore throat seems improved but now she has a bit of ageneralized sore throat. Also contains a hoarse voice occasionally.Occasional.. ENT: No scleral icterus. no specific adenopathy was palpatedin her neck or supraclavicular area. Has fullness to the right neck but nospecific adenopathy. no pharyngeal erythema. Up NECK:Supple, no thyromegaly, no JVD.: dysuria, frequency or [...] bleeding, bruising, adenopathy. EXT: No clubbing, cyanosisor edema.MUSC:joint pain or swelling. MUSC: No joint swelling, deformity, ortenderness.NEURO: syncope, seizures, peripheral numbness or tingling. BACK: Notenderness to palpation. No flank tenderness.MEDICATIONS:omeprazole (PRILOSEC) 20 mg capsule Take 1 capsule by mouth once daily for 30days.pindolol (VISKEN) 5 mg tablet Take 5 mg by mouth twice daily.sertraline (ZOLOFT) 50 mg tablet Take 50 mg by mouth once da yves.lisinopril 2.5 mg tablet Take 2.5 mg by mouth once daily.iv contrast (radiology procedure) CT Chest W -Inject, intravenously, once for 1dose.No IV access, insert saline lock prior to the beginning of sedation,infusion, injection of imaging exam. Discontinue saline lock post exam. If Pt.has a uri tral line or IVAD, may access for administration according to linespecific nursing protocol. Once exam is complete flush line and de-accessaccording to line specific nursing protocol in the CT contrast administrationguidelines link.ALLERGIES:ALLERGIESAllergen Reactions- Toprol Xl [Metoprol* Other: See Comments [...] I answered all questions satisfactorily..Hai Shelton D.O.Medical OncologistKnightdale, [place]Referring Provider: ISAAC SHELTON [[id number]]Allergies As of Date: 04/28/2017 Noted Allergy ReactionTOPROL XL (METOPROLOL) 04/11/2016 14 - Other: See Comments Comments: heart races per patientDate Reviewed: 04/28/2017Reviewed by: Josephine Moscoso - Fully AssessedReason for Visit: Lymphocytosis [Other] Cmt: 3 week follow upPrimary Visit Diagnosis:Lymphocytosis [D72.820]Order(s):CT CHEST WO IVCON [[id number]] Order #: [id number] FUTURE CT CHEST W IVCON [[id number]] Order #: [id number] FUTURE iv contrast (radiology procedure)CT Chest W -Inject, intravenously, once for 1 dose.No IV access, insert saline lock prior to the beginning of sedation, infusion, injection of im aging exam. Discontinue saline lock post exam. If Pt. has a central line or IVAD, may access for administration according to line specific nursing protocol. Once exam is complete flush line and de-access according to line specific nursing protocol in the CT contrast administration guidelines link.Disp: 1 EachRfl: 0 CT NECK SOFT TISSUE W IVCON [[id number]] Order #: [id number] FUTURE [] iv contrast (radiology procedure)Inject 1 [...] Once exam is complete flush line and de- access according to line specific nursing protocol in the CT contrast administration guidelines link.Disp: 1 EachRfl: 0Disposition: Return in about 1 month (around 05/28/2017), or scans in may and f/u after. ct neck and c hest., for make f/u with Dr. Harris. .Follow-up and Disposition History RecordedPrescriptions as of 04/28/2017 Sig: OMEPRAZOLE 20 MG CAPSULE,PAOLA* Take 1 capsule by mouth once * PINDOLOL 5 MG TABLETTake 5 mg by mouth twice kwasi* SERTRALINE 50 MG TABLET Take 50 mg by mouth once kwasi* LISINOPRIL 2.5 MG TABLET Take 2.5 mg by mouth once buck* IV CONTRAST (RADIOLOGY PROCED* CT Chest W - Inject, intraveno* IV CONTRAST (RADIOLOGY PROCED* Inject 1 Each intravenously o*Problem List As Of Date 04/28/2017Noted Resolved Lymphocytosis [D72.820] INVALID FOR* Cervical adenopathy [R59.0] INVALID FOR*Encounter Status:Closed by ISAAC SHELTON DO on 05/03/17NoParma Community [facility] Hospital [id number] ID: [id number]: Isaac SheltonService: (none)Author Type: PhysicianType: Progress NotesFiled: 05/03/2017 3:18 PMNote Text:PATIENT NAME: Gladis DamianarMRN: [id number] PHYSICIAN: [place] [address]QWVOPGL CARE PHYSICIAN: Joseph Harris DOOTHER PHYSICIANS:CHIEF COMPLAINT: Lymphocytosis (primary encounter diagnosis)ASSESSMENT/PLAN:1. LymphocytosisAbsolute lymphocytosis - BCR ABL and flow [...] diagnosis)Visit (SP) Office on 04/28/17-CT CHEST WO IVCON-CTCHEST W IVCON-CT NECK SOFT TISSUE W IVCON-iv contrast (radiology procedure)-iv contrast (radiology procedure) Return in about 1 month (around 05/28/2017), or scans in may and f/uafter. ct neck and chest., for make f/u with Dr. Harris. . 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. Pastmedical history heart palpitations, hypertension, trace mitralregurgitation, ovarian cysts, anxiety, chroniclymphocytosis.Lisinopril 2.5 mg tablet, pindolol 5 mg 1 [...] kidneyfunction, normal total protein and albumin, normal oinicujbrb71.4, normalkidney function, normal TSH.Family History.Mother has Jak2 positive essential thrombocytosis/polycythemia.Her sisters had similar disease.March 13, 2017 Feb 24 she went to her PCP forEar and throat pain. She had puspockets in her throat. She was given augmentin by Dr. Jose. Fever for5 days straight. Went to ER 02/26. [place] was negative, strep negative.Flu negative. She was [...] been negative.She is snoring a lot. She neverhad any sinus complaints. Feels rightside of her [...] Dr. HERNANDEZ and decided to monitorher only fornow as she has no large palpable obvious adenopathy orlesions on nasopharyngoscopy. Results CT of the chest abdomen pelvis andneck from March 2017 of this were unrevealing. CT of the neck showedmildly enlarged right greater than left level IIA lymphadenopathy withprominence of the nasopharynx andbilateral palatetine tonsillar region.No mass. Focal groundglass opacities [...] now she has a bit ofa generalized sorethroat. Also contains a hoarse voice occasionally.Occasional.. ENT: No scleral icterus. no specificadenopathy waspalpated in her neck or supraclavicular area. [...] joint pain or swelling. MUSC: No joint swelling,deformity, ortenderness.NEURO: syncope, seizures, peripheral numbness or tingling. BACK: Notenderness to palpation. No flank tenderness.MEDICATIONS:omeprazole (PRILOSEC) 20 mg capsule Take 1 capsule [...] Once exam iscomplete flush line and de-access accordingto line specific nursingprotocol in the CT contrast administration guidelines link.ALLERGIES:ALLERGIESAllergen Reactions- Toprol Xl [Metoprol* Other: See Comments [...] and my recommendations listed below.The patient Gladis Frances Michael verbalized understanding and agreed withthese recommendations and plan. I answered all questions satisfactorily..Hai Shelton D.O.Medical OncologistSummit Medical CenterRemote Abs Gran + CBC (for [facility] use only)on [id number] Gran Count7.86 k/uLHigh1.45-7.50Providence HospitalErythrocyte distribution width Auto Ratio (RBC)13.9 %Vgzzur00.5-15.0 Providence HospitalErythrocytes (RBC)4.82 10*6/uLNormal3.90-5.20Providence HospitalHematocrit (HCT)39.2 %Iyhkcw80.0-46.0[facility] Hemoglobin mass conc (Bld)13.3 g/eTTdzdki80.5-15.5CMiami Valley HospitalH 27.6 aNGgbnck25.0-34.0UK HealthcareHC mass conc (RBC)33.9 g/dL Iqcdsf89.5-36.0Providence HospitalMCV81.3 oWOpqvfu04.0-100.0Providence HospitalPlatelet mean volume (PMV)9.4 fLNormal9.0-12.7CBellevue HospitalPlatelets470 10*3/yIGwaf238-037AntgsyqqgProvidence HospitalWBC (Leukocytes)11.76 10*3/uLHigh3.70-11.00Providence HospitalCNOVon [id number] Visit (OTOLMN) --------GLADIS MICHAEL ([id number]) 1975 [facility] Time Provider Tusrvvadkj09/2/17 10:00 AM MARCO ANTONIO HERNANDEZ During your visit today, we recorded the following information about you: Blood pressure Weight Height 142/85 97.5 kg 1.6 Akila Joshi Ma 04/10/2017 10:01 AM SignedTobacco Use: QuitWas smoking cessation packet given? N/A - Patient is a non-smoker or quit ANDgt;1year ago.Was a referral initiated?N/A Patient is a non-smokerCandis Hernandez MD 04/16/2017 1:04 PM SignedGladis [id number] 2016Oto-HNS ConsultationReferring Physician: Dr. Isaac Winston for Consult: Cervical adenopathyConsultation requested by Dr. Sam for an opinion regarding cervicaladenopathy. My final recommendations will be communicated back to therequesting physician by way of shared medical record or letter via US mail.Chief complaint: Cervical adenopathyMEDICAL DECISION MAKING:Pt is a 41 year old female with a history of smoking(1ppd for many years, quit in 2005) and leukocytosis for the past year withwhat appears to be an acute infectious episode in mid February (?parotitis)which has since resolved with some residual symptoms of sleep apnea, sorethroat and drainage. Her head and neck exam is reassuring today withoutevidence of obvious oncologic process.She does have t onsillar and adenoid tissue hypertrophy which could be [...] with an oncologist for approximately 1 yearfor elevatedwhite blood cells without obvious cause. In [...] Comments ANDquot;heart racesANDquot; per patientHistory reviewed. No pertinentfamily history.Social History Marital status: Spouse name: Years of education: Number of children:Social History Main Topics Smoking status: Former Smoker Packs/day: 0.00 Years: 0.00 Smokeless status: Never Used Alcohol use: No Drug use: NoReview of Systems -ROS:GENERAL: See HPIHEENT: See HPINECK: See HPIRESPIRATORY: Negative for cough, hemoptysis, wheezing or shortness of breathCARDIOVASCULAR: Negative for chest pain, leg swelling or palpitations.GASTROINTESTINAL: No nausea, vomiting, or diarrheaMUSCULOSKELETAL: Negative for joint pain or swelling, back pain or muscle pain.NEUROLOGIC: Negative for focal numbness or weakness, headaches and dizziness orsyncope.SKIN: Negative for lesions, rash, and itching.HEMATOLOGIC/LYMPHATIC/IMMUNOLOGIC: Negative for prolonged bleeding, bruisingeasily or swollen nodes.ENDOCRINE: Negative for cold or heat intolerance, polyuria, polydipsia andgoiter.REVIEW OF RADIOLOGICAL FILMS AND RECORDS:CT neck 03/19IMPRESSION:Mildly enlarged right greater than left level IIa lymphadenopathy asdescribed.Otherwise, no neck masses or cervical lymphadenopathy.Prominence of the nasopharynx and bilateral palatine tonsillar regionwithout mass lesion identifiedfor age, likely physiologic.CT Chest 03/19IMPRESSION:1. No evidence of intrathoracic lymphadenopathy.2. Focal groundglass opacities in the right upper lobe, most likelyinfectious/inflammatory in etiology. Superimposed neoplasm cannot beexcluded. Consider follow-up to complete resolution.3. Additional 2-3 mm right upper lobe nodular opacity may also beevaluated at interval follow-up.CT Abd 03/19IMPRESSION:1. Borderline splenomegaly.2. No evidence of intra- abdominal/intrapelvic lymphadenopathy.3.Hepatic fatty infiltration.4. Focal area of low attenuation in the left hepatic lobe adjacent tofalciform ligament, most likely an area of greater fatty infiltration orperfusion anomaly. If clinically indicated this may be confirmed via MRIor interval follow-up.5. Cystic densities in the bilateral adnexa may be further evaluated viaultrasound if clinically indicated.LabsCBCRecent Labs 04/07/104954QWI 13.32*HB 13.4HCT 40.2PLT 470*BMPInvalid input(s): PHOSCOAGsPHYSICAL EXAM:Vitals - BP 142/85 (BPSite: Left Arm, BP Position: Sitting, BP Cuff Size:Extra Large Adult) Ht 160 cm (5' 3ANDquot;) Wt 97.5 kg (215 lb) SpO2 98% BMI 38.09 kg/u6Smupsadwimxnxp - General Appearance: well developed, well nourished, without obviousdeformities, moderate obesity, large neck Communication: speaks with a normal voice without hoarsenessHead ANDamp; Face - Overall: no obvious scars, lesions or masses Par otid and submandibular glands: soft Facial strength: FULLEar, [...] side of thenose after application of topical anesthesiaand decongestant. Examination ofthe nasal cavity, nasopharynx, oropharynx, [...] seen and examined with theresident/ fellow. The primaryencounter diagnosis was Cervical adenopathy.Diagnoses of Sleep disorder [...] was present for theclinical encounter as documented aboveby the residentfellow. Dr. Douglas harrison reviewed the [...] link. Dispense: 1 Each; Refill: 0SIGNATURE: Candis Hernandez,MDPAGER: [phone] of SERVICE: April 16, 2017TIME of SERVICE: [...] disorder breathing [G47.30] LPRD (laryngopharyngeal reflux disease) [K21.9]Or xin(s):POLYSOMNOGRAM (PSG)/HOME SLEEP TEST (HST) [2246929] Order #: [id number] FUTURE omeprazole (PRILOSEC) 20 mg capsuleTake 1 capsule by mouth once daily for 30 days.Disp: 30 capsuleRfl: 0 CT NECK SOFT TISSUE W IVCON [[id number]] Order #: [id number] FUTURE [] iv contrast (radiology procedure)Inject 1 [...] Sol Joshi Ma 04/10/2017 10:01 AM >> OSL JOSHI MA [facility] 2016 10:01 AM Not takingProblem List As Of Date 04/10/2017 Noted Resolved Lymphocytosis [D72.820] INVALID FOR* Cervical adenopathy [R59.0] INVALID FOR*Visit Notes:>> Sol Joshi Ma Meredith Apr 10, 2017 10:01 AM Status: SignedTobacco Use: [place] smoking cessation packet given? N/A - Patient [...] guidelines link.Follow-up and Disposition History RecordedEncounter Number: [id number] Status:Closed by CANDIS HERNANDEZ MD on 04/16/17NoPar[facility] [id number] ID: [id number]: Candis Salinas: (none)Author Type: PhysicianType: Progress NotesFiled: 04/16/2017 1:04 PMNote Text:Gladis [id number] 22016Oto-HNS ConsultationReferring Physician: Dr. Isaac Winston for Consult: Cervical adenopathyConsultation requested by Dr. Sam for an opinion regarding cervicaladenopathy. My final recommendations will be communicated back to therequesting physician by way of shared medical record or letter via USmail.Chief complaint: Cervical adenopathyMEDICAL DECISION MAKING: Pt is a 41 year old female with a history ofsmoking(1ppd for many years, quit in 2005) and leukocytosis for the pastyear with what appears to be an acute infectious episode in mid February(?parotitis) which has since resolved with some residual symptoms of sleepapnea, sore throat and drainage. Her head and neck exam is reassuringtoday without evidence of obvious oncologic process.She does have tonsillar and adenoid tissue hypertrophy which couldberelated to her recent illness vs. an underlying systemic immunologicdisorder. This is likely contr ibuting to her sleep related symptoms (CARYL).In addition; she does evidence of laryngopharyngeal reflux on exam and hersymptoms. We will trial PPI for 1-2 months.Plan-Prilosec for 1-2 months-Repeat CTin 8 weeks-RTC 8 weeks-Sleep studyHPI: Gladis Michael [...] HISTORYDiagnosis Date- Anxiety- Hypertension- LeukocytosisPAST SURGICAL HISTORYProcedure Later ality Date- DELIVERY ONLY , low transverse- CHOLECYSTECTOMYCurrent [...] daily. Disp: Rfl:No current facility-administered medications for thisvisit.ALLERGIESAllergen Reactions- Toprol Xl [Metoprol* Other: See Comments heart races per patien tHistory reviewed. No pertinent family history.Social History Marital status: Spouse name: Years of education: Number of children:Social History Main Topics Smoking status: Former Smoker Packs/day: 0.00 Years: 0.00 Smokeless status: Never Used Alcohol use: No Drug use: NoReview of Systems -ROS:GENERAL: See HPIHEENT: See HPINECK: See HPIRESPIRATORY: Negative for cough, hemoptysis, wheezingor shortness ofbreathCARDIOVASCULAR: Negative for chest pain, leg swelling or palpitations.GASTROINTESTINAL: No nausea, vomiting, or diarrheaMUSCULOSKELETAL: Negative for joint pain or swelling, backpain or musclepain.NEUROLOGIC: Negative for focal numbness or weakness, headaches anddizziness or syncope.SKIN: Negative for lesions, rash, and itching.HEMATOLOGIC/LYMPHATIC/IMMUNOLOGIC: Negative forprolonged bleeding,bruising easily or swollen nodes.ENDOCRINE: Negative for [...] opacities in the right upper lobe, most likelyin fectious/inflammatory in etiology. Superimposed neoplasm cannot beexcluded. Consider follow-up to complete resolution.3. Additional 2-3 mm right upper lobe nodular opacity may also beevaluated at interval follow-up.CT Abd 03/19IMPRESSION:1. Borderline splenomegaly.2. No evidence of intra-abdominal/i ntrapelvic lymphadenopathy.3. Hepatic fatty infiltration.4. Focal area of low attenuation in the left hepatic lobe adjacent tofalciform ligament, most likely an area of greater fatty infiltration orperfusion anomaly. If clinically indicated this may be confirmed via MRIor interval follow-up.5. Cystic densities in the bilateral adnexa may be further evaluated viaultrasound if clinically indicated.LabsCBCRecent Labs 04/07/470071SID 13.32*HB 13.4HCT 40.2PLT 470*BMPInvalid input(s): PHOSCOAGsPHYSICAL EXAM:Vitals - BP 142/85 (BP Site: Left Arm, BP Position: Sitting, BP Cuff Size:Extra Large Adult) Ht 160 cm (5' 3 ) Wt 97.5 kg (215 lb) SpO2 98% BMI 38.09 kg/f7Jlyetsazqlwlop - General Appearance: well developed, well nourished, [...] turbinates arenormal on anterior rhinoscopy Mastication: teeth appearnormal Oral Cavity and oropharynx: mucosa, hard and [...] the adenoidal region.Pt tolerated the procedure well, andthere were no complications. Theprocedure was performed by [...] IVAD, may access foradministration according to line s pecific nursing protocol. Once exam iscomplete flush line and de-access according to line specific nursingprotocol in the CT contrast administration guidelines link. Dispense: 1Each; Refill: 0SIGNATURE: Candis David, MDPAGER: [id number] of SERVICE: April 16, 2017TIME of SERVICE: 1:01 PMNormalProvidence HospitalCNOVSPon [id number] ([place]) Office ([place]) --------GLADIS MICHAEL ([id number]) 1975 FDate Time Provider Pajemltlzx47/30/17 1:45 PM ISAAC SHELTON During your visit today, we recorded the following information about you: Temperature Pulse Respiration Blood pressure 98.5 degrees 75/minute 18/minute 156/106 Weight Height 102.2 kg 1.6 Kassidy Shelton DO 04/11/2017 10:43 AM SignedPATIENT NAME: Gladis ElderRN: [id number] PHYSICIAN: MICHAEL Rubin[address] [facility] [id number] CARE PHYSICIAN: MASOOD Rubin PHYSICIANS:CHIEF COMPLAINT: Lymphocytosis (primary encounter diagnosi s)ASSESSMENT/PLAN:1. LymphocytosisAbsolute lymphocytosis - BCR ABL and flow [...] on 04/07/17. Return in about 2 weeks (ofpkdx3704/21/2017), or f/u 2 wks.. HPI: This is [...] function, normal TSH.Family History.Mother has Jak2 positive esse ntial thrombocytosis/polycythemia.Her sisters had similar disease.March 13, 2017 Feb 24 she went to her PCP for Ear and throat pain. She had ANDquot;puspocketsANDquot; in her throat. She was given augmentin by Dr. oJse. Fever for5 days straight. Went to ER 02/26. [place] was negative, strep negative. Flunegative. She was [...] sweats. Apparently CXRs have been negative.She is snoringa lot. She never had any sinus complaints. Feels right side of her neck isswollen. Lost 12 lbs.April 07, 2017 she is doing overall better. Still with throat soreness. Still coughing,overall worse, especially at night. No longer on an antibiotic. No morefevers about 3 wks. Nausea about same. Doesn't take nausea med. She pukedlast night after a coughing spell. Sinues are still good.Sweats improved.Energy improved. Dizzy improved but still perists [...] texture, turgor, no rashesor lesionsHEENT: significant headaches, changesin hearing, changes in vision, nosebleeds. continued right-sided ear throat and neck pain. ENT: No scleralicterus. no specific adenopathy was palpated in her neck or supraclaviculararea. Has fullnessto the right neck but no specific adenopathy. NECK: Supple, no thyromegaly, no JVD.: dysuria, frequency or incontinence. LYMPH: No cervical, supraclavicular,axillary, inguinal adenopathy.RESP: dyspnea, wheezing. still with cough. LUNG: Clear to auscultation, nowheezing rales or rhonchiCARD: chestpain, leg swelling, palpitations. HEART: Regular. No murmurs,gallop, or rubs. No ectopy.GI: abdomina l pain, diarrhea, constipation, melena, hematochezia.continued nausea. ABDM: Soft. Non-tender. Non-distended. Bowel soundsnormal. No masses. No hepatosplenomegaly.HEME: prolonged bleeding, bruising, adenopathy. EXT: No clubbing, cyanosisor edema.MUSC: joint pain or swelling. MUSC: No joint swelling, deformity, ortenderness.NEURO: syncope, seizures, peripheral numbness or tingling. BACK: Notenderness to palpation. No flank tenderness.MEDICATIONS:ondansetron (ZOFRAN) 8 mg tablet Take 1 tablet by mouth every 8 hours as neededfor Nausea/Vomiting.pindolol (VISKEN) 5 mg tablet Take 5 mg by mouth twice daily.sertraline (ZOLOFT) 50 mg tablet Take 50 mg by mouth once daily.lisinopril 2.5 mg tablet Take 2.5 mg by mouth once daily.omeprazole (PRILOSEC) 20 mg capsule Take 1 capsule by mouth once daily for 30days.ALLERGIES:ALLERGIESAllergen Reactions- Toprol Xl [Metoprol* Other: See Comments ANDquot;heart racesANDquot; per patientPAST MEDICAL HISTORYDiagnosis Date- Anxiety- Hypertension- LeukocytosisPAST SURGICAL HISTORYProcedure Laterality Date- DELIVERY ONLY , low transverse- CHOLECYSTECTOMYNo family history on file.SOCIAL HISTORY:Social HistorySubstance Use Topics- Smokingstatus: Former Smoker- Smokeless tobacco: Never Used- Alcohol use NoLABS:RADIOLOGY/OTHER STUDIES:COUNSELING:I discussed with Gladis the natural history, treated course, and prognosisof Lymphocytosis (primary encounter diagnosis); my impression as well as therationale, logistics, risks, benefits,and alternatives to the managementoptions noted above; and my recommendations listed below. The patientElizabeth Frances Michael verbalized understanding and agreed with theserecommendations and plan. I answered all questions satisfactorily..Hai Sheltno D.O.Medical OncologistKnightdale, [place]Referring Provider: ISAAC SHELTON [[id number]]Allergies As of Date: 04/07/2017 Noted Allergy ReactionTOPROL XL (METOPROLOL) 04/11/2016 14 - Other: See Comments Comments: heart races per patientDate Reviewed: 04/07/2017Reviewed by: Josephine Moscoso - Fully AssessedReason for Visit: Lympho cytosis [Other] Cmt: 2 week follow upPrimary Visit Diagnosis:Lymphocytosis [D72.820]Disposition: Return in about 2 weeks (around 04/21/2017), or f/u 2 wks..Follow-up and Disposition History RecordedPrescriptions as of 04/07/2017 Sig: ONDANSETRON HCL 8 MG TABLET Take 1 tablet by mouth every * PINDOLOL 5 MG TABLET Take 5 mg by mouth twice kwasi* SERTRALINE 50 MG TABLET Take 50 mg by mouth once kwasi*LISINOPRIL 2.5 MG TABLET Take 2.5 mg by mouth once buck*Problem List As Of Date 04/07/2017 Noted Resolved Lymphocytosis [D72.820] INVALID FOR* Cervical adenopathy [R59.0] INVALID FOR*Encounter Status:Closed by SIAAC SHELTON DO on 04/11/17NormalCProMedica Memorial Hospital [id number] U/L Cfmhdd784-876BagcgktcpProvidence HospitalComment on above:Performed By: #### LD6 ####[facility] [address] [place], [place] [phone] [phone] [id number] ID: [id number]: Isaac Carrasco: (none)Author Type: PhysicianType: Progress NotesFiled: 04/11/2017 10:43 AMNote Text:PATIENT NAME: Gladis ElderRN: [id number] PHYSICIAN: Joseph [place] DO[address] [place] [address]QPXYONH CARE PHYSICIAN: MASOOD Rubin PHYSICIANS:CHIEF COMPLAINT: Lymphocytosis (primary encounter diagnosis)ASSESSMENT/PLAN:1. Ly mphocytosisAbsolute lymphocytosis - BCR ABL and flow cytometry [...] bone marrow biopsy will yield any additional diagnosticinformation.Essentially I offer her bone marrow biopsy versus [...] [place].Past medical history heart palpitations, hypertension, trace mitralregurgitation,ovarian cysts, anxiety, chronic lymphocytosis.Lisinopril 2.5 mg tablet, [...] total protein and albumin, normal hemoglobin 13.4, karen lkidney function, normal TSH.Family History.Mother has Jak2 positive essential thrombocytosis/polycythemia.Her sisters had similar disease.March 13, 2017 Feb 24 she went to her PCP for Ear and throat pain. She had puspockets in her throat. She was given augmentin by Dr. Jose. Fever for5 daysstraight. Went to ER 02/26. [place] was negative, strep negative.Flu negative. She was [...] 12 lbs.April 07, 2017 she is doing ove rall better. Still with throat soreness. Still coughing,overall worse, especially at night. No longer on an antibiotic. No morefevers about 3 wks. Nausea about same. Doesn't take nausea med. Shepukedlast night after a coughing spell. Sinues are [...] improved. GEN: Well appearing, alert, in no acutedistress,appears stated ageSKIN: lesions, rash, itching. SKIN: Normal color, texture, turgor, norashes or lesionsHEENT: significant headaches, changes in hearing, changes in vision, nosebleeds. contin ued right-sided ear throat and neck pain. ENT: Noscleral icterus. no specific adenopathy was palpated in her neck orsupraclavicular area. Has fullness to the right neck but no specificadenopathy. NECK: Supple, no thyromegaly, no JVD.: dysuria, frequency or incontinence. LYMPH: No cervical,supraclavicular, axillary, inguinal adenopathy.RESP: dyspnea, wheezing. still with cough. LUNG: Clear to auscultation,no wheezing rales or rhonchiCARD: chest pain, leg swelling, palpitations. HEART: Regular.Nomurmurs, gallop, or rubs. No ectopy.GI: abdominal pain, diarrhea, constipation, melena, hematochezia.continued nausea. ABDM: Soft. Non-tender. Non-distended. Bowel soundsnormal. No masses. No hepato splenomegaly.HEME: prolonged bleeding, bruising, adenopathy. EXT: No clubbing,cyanosis or edema.MUSC: joint pain or swelling. MUSC: No joint swelling, deformity, ortenderness.NEURO: syncope, seizures, peripheral numbness or tingling. BACK: Notenderness to palpation. No flank tenderness.MEDICATIONS:o ndansetron (ZOFRAN) 8 mg tablet Take 1 tablet by mouth every 8 hours asneeded for Nausea/Vomiting.pindolol (VISKEN) 5 mg tablet Take 5 mg by mouth twice daily.sertraline (ZOLOFT) 50 mg tablet Take 50mg by mouth once daily.lisinopril 2.5 mg tablet Take 2.5 mg by mouth once daily.omeprazole (PRILOSEC) 20 mg capsule Take 1 capsule by mouth once daily for30 days.ALLERGIES:ALLERGIESAllergen Reactions- Toprol Xl [Metoprol* Other: See Comments heart races per patientPAST MEDICAL HISTORYDiagnosis Date- Anxiety- Hypertension- LeukocytosisPAST SURGICAL HISTORYProcedure Laterality Date- DELIVERY ONLY , low transverse- CHOLECYSTECTOMYNo family history on file.SOCIAL HISTORY:Social HistorySubstance Use Topics- Smoking status: Former Smoker- Smokeless tobacco: Never Used- Alcohol use NoLABS:RADIOLOGY/OTHER STUDIES:COUNSELING:I discussed with Gladis the natural history, treatedcourse, andprognosis of Lymphocytosis (primary encounter diagnosis); my impressionas well as the rationale, logistics, risks, benefits, and alternatives tothe management options noted above; and my recommendations listed below.The patient Gladis Michael verbalized understanding and agreed withthese recommendations and plan. I answered all questions satisfactorily..Hai Shelton D.O.Medical OncologistSwed[facility] Cancer [facility] Flower HospitalCO [phone] TextNortDepartment of Veterans Affairs Medical [facility] - [address] [place], [place] [address]Qbhhi: [phone]: [facility] - [address] [place], [place] [address]Vkihb: [phone]: [facility] - [address]zwl[address] [place], [place] [address]Ajypc: [phone]: Toll Free: [phone] [email or web address] Saad Arredondo M.D., Carlos Gleason M.D.Luiz Berrios M.D.Isaac Shelton D.O..Audrey Jang M.D. FACROSaju A. Rajan, M.D.March 27, 2017[facility]icsjo Michael[address] [facility] [address]Cyud Ms. Michael,You missed your scheduled appointment on 03/27/17. Please call our officeto reschedule. If you need to cancel any future appointments, please call togive us 24 hour notice so that we can offer your appointment to anotherpatient.Sincerely,Isaac Au M.D.NormalProvidence HospitalCT ABD/PEL W IVCONon [id number] ABD/PEL W IVCON* * *Final Report* * *DATE OF EXAM: Mar 19 2017 9:29AM [facility] 0530 - CT ABD/PEL W IVCON [...] No mass.Kidneys: No mass, calculus or hydronephrosis.GI tract : No dilation or wall thickening. No evidence of appendicitis.Lymph nodes: No abdominal or pelvic lymphadenopathy.Mesentery/Peritoneum: No ascites or mass.Retroperitoneum: No mass.Vasculature: The [...] chest findings.IMPRESSION:1. Borderline splenomegaly.2. No evidence of intra- abdominal/intrapelvic lymphadenopathy.3. Hepatic fatty infiltration.4. Focal area of low attenuation in the left hepatic lobe adjacent to falciform ligament, most likely an area of greater fatty infiltration or perfusion anomaly. If clinically indicated this may be confirmed via MRI or interval follow-up.5. Cystic densities in the bilateral adnexa may befurther evaluated via ultrasound if clinically indicated. Transcribe Date/Time: Mar 19 2017 2:54PDictated by: FERDINAND BLACK MDThis examination was interpreted and the report reviewed and electronically signed by: FERDINAND BLACK MD on Mar 19 2017 3:06PM ESTThank you for allowing us to participate in the care of your patient.Should there be any questions regarding this interpretation, please call [phone].If you are unable to reach us at the number above,please feel free to contact [facility] eRadiology at [phone] NormalProvidence HospitalCT CHEST W IVCONon [id number] CHEST W IVCON* * *Final Report* * *DATE OF EXAM: Mar 19 2017 9:29AM [facility] 0539 - CT CHEST W IVCON / REASON: Lymphocytosis (symptomatic) * * * * Physician Interpretation * * * *RESULT:EXAMINATION: CHEST CT WITH CONTRASTCLINICAL HISTORY: Lymphocytosis (symptomatic)Technique: Spiral CT acquisition of the chest from the thoracic inlet to the upper abdomen following IV contrast.M: CTCW_4Contrast: 150 cc Omnipaque 300 IVCT Dose-Length Product: 492 mGy*cmCT Dose Reduction Employed: mAs-kVp adjusted based on patient size- ageComparison: None availableRESULT:Limitations: None.Lines, tubes, and devices: None.Lung parenchyma and [...] opacity may also be evaluated at interval follow- up.Transcribe Date/Time: Mar 19 2017 2:46PDictated by: FERDINAND BLACK MDThis examination was interpreted and the report reviewed and electronically signed by: MD CAMRON on Mar 19 2017 3:05PM ESTThank you for allowing us to participate in the care of your patient.Should there be any questions regarding this interpretation, please call [phone].If you areunable to reach us at the number above,please feel free to contact [facility] eRadiology at [phone]_[email or web address] HospitalCT NECK SOFT TISSUE W IVCONon [id number] NECK SOFT TISSUE W IVCON* * *Final Report* * *DATE OF EXAM: Mar 19 2017 9:28AM [facility] 0013 - CT NECK SOFT TISSUE W IVCON / REASON: Lymphocytosis (symptomatic) * * * * Physician Interpretation * *RESULT: EXAMINATION: CT NECK SOFT TISSUE W IVCONHISTORY: 41-year-old female with history of Lymphocytosis (symptomatic) .COMPARISON: None.TECHNIQUE: Helical scan of the neck from the petrous ridges through the upper mediastinum was performed with contrast.IV: 100 cc Omnipaque 300Dose- Length Product (DLP): 660 mGy*cmCT Dose Reduction Employed: No dose reduction techniques were requiredRESULT:Alignment: Gross alignment of the cervical spine is normal in the sagittal plane.Mucosal surfaces and pharyngeal mucosal space: There is prominence of the nasopharynx and bilateral palatine tonsils for age although this may still be physiologic without mass lesion identified.Pre- styloid parapharyngealspace: Fat and muscle planes are normal.Electrical Research Engineer space: Visualized mandible, muscles of mastication, pterygopalatine [...] tracheobronchial tree. Airway is patent to the whitley.Lungapices and upper mediastinum: Lung apices are clear. No mediastinal mass identified.Frontal sinuses: There is minimal mucosal thickening of the right maxillary sinus.IMPRESSION:Mildly enlarged right greater than left level IIa lymphadenopathy as described.Otherwise, no neck masses or cervical lympha denopathy.Prominence of the nasopharynx and bilateral palatine tonsillar region without mass lesionidentified for age, likely physiologic.Transcribe Date/Time: Mar 19 2017 9:39ADictated by: SATURNINO RODRIGEZ MDThis examination was interpreted and the report reviewed and electronically signed by: ALYSSA DREW MD on Mar 19 2017 11:21AM ESTThank you for allowing us to participate in the care of your pa tient.Should there be any questions regarding this interpretation, please call [phone].If you are unable to reach us at the number above,please feel free to contact [facility] eRadiology at [phone] NormalCleBarnesville HospitalvelandPROGRESSon [id number] ID: [id number]: Sheri Banegas CnmtService: (none)Author Type: (none)Type: Progress NotesFiled: 03/19/2017 9:32 AMNote Text: RADIOLOGY SERVICE PROGRESS NOTESERVICE DATE: 03/19/2017SERVICE TIME: 8:33 AMPATIENT IDENTITY VERIFICATION COMPLETED USING TWO (2) METHODS: Patientconfirmed name and Date of verbally.PATIENT GENDER DATA: .femaleALLERGIES: Reviewed and unchangedMEDICATIONS REVIEWED: Not applicablePATIENT RELEVANT IMPLANT DATA REVIEWED: Not ApplicableCREATININE:CreatinineDate Value Ref Range Bggsom7303/14/2017 0.59 0.58 - 0.96 mg/dL Final04/11/2016 0.56 (L) 0.58 - 0.96 mg/dLFinal eGFR-All Other RacesDate Value Ref Range Kghish4103/14/2017 >60 . FinalComment:eGFR(Estimated GFR) Units of measure: mL/min/1.73 meters squaredeGFR [...] actual GFR. eGFR- AmericanDate Value Ref Range Duiyrx3703/14/2017 >60 Final Reference range (age 0-9 years) 0.30 - 1.00 mg/dl.Reference range (age 10-14 years) 0.30 - 1.20 mg/dl.Reference range (age 15-18 years) 0.40 - 1.30 mg/dl.Reference range (age 19-99 years) 0.70- 1.40 mg/dl.DIAGNOSTIC CT PERFORMED: Yes. POCT RESULTS: [...] TIME: 0907PATIENT DISCHARGED TO: Ambulatory patient, left [place] department area.A Diagnostic radioactive procedure has taken place, with no furtherprecautions necessary other than routine body substance precautions. Moreinformation regarding radiation safety can be found using this link:[email or web address] [email or web address]: Sheri Banegas [facility] PATIENT NAME: Gladis PatelarDATE: March 19, 2017 : 8:33 AM PAGER/CONTACT #:[facility] Metabolic Panelon 30-07-7403Lkqbmny aminotransferase (ALT)25 U/LNormal7-38 [facility] on above:Performed By: #### RETIC, HREMOP, CMP, TSH, KLFRS, MPASRM, SEPG ####[facility] [place] [phone] g/dLNormal3.9-4.9CMcCullough-Hyde Memorial Hospital on above:Performed By: #### RETIC, HREMOP, CMP, TSH, KLFRS, MPASRM, SEPG ####[place] [address] [address] [phone] phosphatase (ALP)60 U/RLlhmme06-309LtkfhsklzMercy Health Defiance Hospital on above:Performed By: #### RETIC, HREMOP, CMP, TSH, KLFRS, MPASRM, SEPG ####[place] [address] [address] [phone] gap14 mmol/LNormal9-18[facility] on above:Performed By: #### RETIC, HREMOP, CMP, TSH, KLFRS, MPASRM, SEPG ####[place] [address] [address] [phone] aminotransferase (AST)18 U/ZGtbpkw67-39GpjkardmtMercy Health Defiance Hospital on above:Performed By: #### RETIC, HREMOP, CMP, TSH, KLFRS, MPASRM, SEPG ####[place] [address]CT[address] [place] [phone] (total)0.7 mg/dLNormal0.2-1.3CMcCullough-Hyde Memorial Hospital on above:Performed By: #### RETIC, HREMOP, CMP, TSH, KLFRS, MPASRM, SEPG ####[place] [address] [address] [phone] mg/dLNormal8.5-10.2CMcCullough-Hyde Memorial Hospital on above:Performed By: #### RETIC, HREMOP, CMP, TSH, KLFRS, MPASRM, SEPG ####[place] [address] [place] [phone] mmol/DPndnwy73-659FweehlyurMercy Health Defiance Hospital on above:Performed By: #### RETIC, HREMOP, CMP, TSH, KLFRS, MPASRM, SEPG ####[place] [address] [address] [phone] mmol/XBdblka19-35PcliscodxMercy Health Defiance Hospital on above:Performed By: #### RETIC, HREMOP, CMP, TSH, KLFRS, MPASRM, SEPG ####[place] [address] [address] [phone] mg/dLNormal0.58-0.96[facility] Comment on above:Performed By: #### RETIC, HREMOP, CMP, TSH, KLFRS, MPASRM, SEPG ####[place] [address] [address] [phone] (non-black)mL/min/{1.73_m2}NormalMercy Health Defiance Hospital on above:Result Comment: eGFR (Estimated GFR) Units of measure: mL/min/1.73 meters squaredeGFR is derived from the reexpressed MDRD Study equation using the following parameters: serum creatinine, age, genderand race. The creatinine assay has been calibrated to be traceable to IDMS.An eGFR <60 mL/min/1.73m2 for >3 months is consistent with chronic kidney disease. Refer to KDOQI guidelines for clinical interpretation.In patients with unstable renal function, e.g. those with acute kidney injury, the eGFR may not accurately reflect actual GFR.Performed By: #### RETIC, HREMOP, CMP, TSH, KLFRS, MPASRM, SEPG ####[place] [address] [address] [place] [phone] mass nqlt248 mg/mBTqrm89-90HgnaymntsProvidence Hospital Comment on above:Result Comment: The [place] Diabetes Association (ADA) provides guidance for cutoff [...] unequivocal hyperglycemia, results should be confirmed by repeattesting. In a patient with classic symptoms of hyperglycemia or hyperglycemic crisis, random plasmaglucose results greater than or equal to 200 mg/dL meet the criteria for diagnosis of diabetes.Reference: Standards of Medical Care in Diabetes 2016, Canadian Diabetes Association. Diabetes Care. 2016.39(Suppl 1).Performed By: #### RETIC, HREMOP, CMP, TSH, KLFRS, MPASRM, SEPG ####[place] [phone] molar conc4.3 mmol/LNormal 3.7-5.1CBellevue HospitalComment on above:Performed By: #### RETIC, HREMOP, CMP, TSH, KLFRS, MPASRM, SEPG ####[place] [address] [place] [phone] g/dLHigh6.3-8.0[facility] HospitalComment on above:Performed By: #### RETIC, HREMOP, CMP, TSH, KLFRS, MPASRM, SEPG ####[place] [address] [place] [phone] mmol/LMxfict663-173VvebkuywqProvidence Hospital Comment on above:Performed By: #### RETIC, HREMOP, CMP, TSH, KLFRS, MPASRM, SEPG ####[place] [address] [place] [phone] omwcbbpd67 mg/dLNormal7-21[facility] Comment on above:Performed By: #### RETIC, HREMOP, CMP, TSH, KLFRS, MPASRM, SEPG ####[place] [address] [address] [phone] Remote Panelon 85-06-3420AHW (Body Surface Area) NegativeNormalNegativeMercy Health Defiance Hospital on above:Performed By: #### RETIC, HREMOP, CMP, TSH, KLFRS, MPASRM, SEPG ####[place] [address] [address] [phone] B Core Ab,Total NegativeNormalNegativeMercy Health Defiance Hospital on above:Performed By: #### RETIC, HREMOP, CMP, TSH, KLFRS, MPASRM, SEPG ####[place] [address] [address]CFrank[address], [place] [phone] C Ab IA NegativeNormalNegPike Community Hospital on above:Performed By: #### RETIC, HREMOP, CMP, TSH, KLFRS, MPASRM, SEPG ####[place] [address] [address] [phone] Surface Ab,Qual NegativeNormalNegativeMercy Health Defiance Hospital on above:Result Comment: NEGATIVEPerformed By: #### RETIC, HREMOP, CMP, TSH, KLFRS, MPASRM, SEPG ####[place] [address] [address] [phone]/Cpoe,Free,Seron 03-14-2017K/L Ratio, Serum1.99High 0.26-1.65[facility] on above:Performed By: #### RETIC, HREMOP, CMP, TSH, KLFRS, MPASRM, SEPG ####[place] [address] [place] [phone], Free, Serum32.8 mg/LHigh 3.30-19.40[facility] on above:Result Comment: Rarely, increased serum free light chains values may not be detected due to antigen excess phenomenon. Results should always be correlated with other laboratory results and clinical findings.Performed By: #### RETIC, HREMOP, CMP, TSH, KLFRS, MPASRM, SEPG ####[place] [address]CFrank[place], [place] [phone], Free, Serum16.5 mg/LNormal5.7-26.3CMcCullough-Hyde Memorial Hospital on above:Result Comment: Rarely, increased serum free light chains values may not be detected due to antigenexcess phenomenon. Results should always be correlated with other laboratory results and clinical findings. Performed By: #### RETIC, HREMOP, CMP, TSH, KLFRS, MPASRM, SEPG ####[address]ichele Ville [phone] Protein,Blon 78-91-6929SFI Parminder/Milner Ratio2.18Snojai6-9BknixfczxBellevue Hospital Comment on above:Performed By: #### RETIC, HREMOP, CMP, TSH, KLFRS, MPASRM, SEPG ####[place] [address] AveCFrank[place], [place] [phone] ResultNo M protein is identified.NormalNo M protein is identified.[facility] on above:Performed By: #### RETIC, HREMOP, CMP, TSH, KLFRS, MPASRM, SEPG ####[place] [address] [place] [phone] Serum VzJ080 mg/rMFdlvqt37-688 [facility] on above:Performed By: #### RETIC, HREMOP, CMP, TSH, KLFRS, MPASRM, SEPG ####[facility] AveCFrankl[address], [place] [phone] Serum BaJ6328 mg/iVDdxl543-6076VbxxycmapMcCullough-Hyde Memorial Hospital on above:Performed By: #### RETIC, HREMOP, CMP, TSH, KLFRS, MPASRM, SEPG ####[facility]CFrank[address], [place] [phone] Serum UoJ612 mg/kGVpplwk81-523JxcxgrksdMercy Health Defiance Hospital on above:Performed By: #### RETIC, HREMOP, CMP, TSH, KLFRS, MPASRM, SEPG ####[facility]CT[address] [phone] Cswwx1154 mg/aHAdzl119-4829JzazkvffbProvidence Hospital Comment on above:Performed By: #### RETIC, HREMOP, CMP, TSH, KLFRS, MPASRM, SEPG ####[facility]CFrank[address], [place] [phone] Mlvvsp884 mg/xICdrx562-796RjgpvtflfBellevue Hospital Comment on above:Performed By: #### RETIC, HREMOP, CMP, TSH, KLFRS, MPASRM, SEPG ####[facility]CFrank[address], [place] [phone] ReviewReviewed by Delores Means MD ([id number])[facility] [place] [facility] on above:Performed By: #### RETIC, HREMOP, CMP, TSH, KLFRS, MPASRM, SEPG ####[facility]CFrank[address], [place] [phone] LG LEUK MARKERSon 95-26-7065CW LG LEUK MARKERSAccount CreditedNormalCMcCullough-Hyde Memorial Hospital on above:Result Comment: CANCELLED PER STAFF REVIEW. [id number] available in [facility] under the Surgical Pathology Test listed in the Laboratory Tab.Performed By: #### LD6 ####[facility]CFrankl[address], [place] [phone] (Leukocytes)13.38 10*3/uLHigh3.70-11.00[facility] on above:Performed By: #### LD6 ####[address] [phone] Electrophor.on 78-55-3733Tgpzqzq3.76 g/dLNormal3.37-4.23[facility] on above:Performed By: #### LD6 ####[address] [phone] 1 Globulin0.19 gm/dLNormal0.18-0.31[facility] on above:Performed By: #### LD6 ####[address] [phone] 2 Globulin0.90 gm/dLNormal0.52-0.97[facility] on above:Performed By: #### LD6 ####[address] [phone] Globulin1.15 gm/dLNormal0.84-1.36[facility] on above:Performed By: #### LD6 ####[address] [phone] Globulin1.80 gm/dLHigh0.70-1.44[facility] on above:Performed By: #### LD6 ####[address] [phone] COMMENTNoDoctors Hospital Comment on above:Result Comment: An atypical region of restricted mobility is identified on protein electrophoresis.The atypical region did not stain on accompanying immunofixation and therefore is unlikely to be a monoclonal immunoglobulin.Performed By: #### LD6 ####[address] [phone] Protein LocationN/ANormalCMcCullough-Hyde Memorial Hospital on above:Performed By: #### LD6 ####[place] [address] AvLone [place], [place] [phone] Ja Concentratn 0.00 gm/dLNormal0.00[facility] on above:Performed By: #### LD6 ####[facility] [place], [place] [phone] Staff ReviewReviewed by Delores Means MD ([id number])Normal [facility] on above:Performed By: #### LD6 ####[place] [address] [place], [place] [phone] Protein, SPE7.8 g/dLNormal6.0-8.4CMcCullough-Hyde Memorial Hospital on above: Performed By: #### LD6 ####[place] [address] [place], [place] [phone] CBCDIF (for [facility] use only)on 73-52-3609Btp Baso0.14 k/uLHigh0.00-0.10[facility] HospitalAbs Mono0.66 k/uLNormal0.00-0.86[facility] HospitalAbs Neut10.25 k/uLHigh1.45-7.50 [facility] HospitalBasophils/100 WBC Auto (Bld)1.1 %NormalProvidence HospitalEosinophils0.08 10*3/uLNormal0.00-0.45[facility] Eosinophils/100 leukocytes0.6 %NormalProvidence HospitalErythrocyte distribution width Auto Ratio (RBC)14.0 %Zmhzuf55.5-15.0[facility] HospitalErythrocytes (RBC)5.12 10*6/uLNormal3.90-5.20[facility] Hematocrit (HCT)42.5 %Ooqttz79.0-46.0[facility] HospitalHemoglobin mass conc (Bld)14.1 g/vBKrqbez20.5-15.5CBellevue HospitalLymphocytes1.98 10*3/uLNormal1.00-4.00[facility] HospitalLymphocytes/100 vikzkhigql25.1 % NormalProvidence HospitalMCH27.5 mGDrlxri61.0-34.0UK HealthcareHC mass conc (RBC)33.2 g/rBGuuity53.5-36.0[facility] MCV83.0 gZDjlbpo68.0-100.0[facility] HospitalMonocytes/100 leukocytes5.0 %NormalProvidence HospitalNeutrophils/100 WBC Auto (Bld)78.2 %Normal [facility] HospitalPlatelet mean volume (PMV)9.6 fLNormal9.0-12.7 [facility] HospitalPlatelets609 10*3/eBQmkn176-596TxddxenhzProvidence HospitalWBC (Leukocytes)13.11 10*3/uLHigh3.70-11.00[facility] Reticulocyteon 02-59-6611Bsd Retic0.073 M/uLNormal0.0180-0.1000[facility] on above:Performed By: #### RETIC, HREMOP, CMP, TSH, KLFRS, MPASRM, SEPG ####[facility] [address] [place], [place] [phone]%1.4 %Normal0.4-2.0[facility] on above:Performed By: #### RETIC, HREMOP, CMP, TSH, KLFRS, MPASRM, SEPG ####[facility] [place], [place] [phone] 10-37-0472Hholaws stimulating hormone (TSH)0.537 uU/mL Normal0.400-5.500[facility] on above:Result Comment: If the patient is , TSH reference range varies by gestational period:First Trimester 0.100-2.500 uU/mLSecond Trimester 0.200-3.000 uU/mLThird Trimester 0.300-3.000 uU/mLReferences: 1. He, Delfina Bassett, Anders EK, et al. Management of Thyroid Dysfunction during and : An Endocrine Society Clinical Practice Guideline. J Clin Endocrinol Metab, 2012:97:5998-4571. 2. Conor ROSAS. Overview of thyroid disease in . UpToDate. 2016. Accessed on November 24, 2015.Performed By: #### RETIC, HREMOP, CMP, TSH, KLFRS, MPASRM, SEPG ####[facility] [address] [place], [place] [phone] 24-68-9817RGPDTPRjyct (SP) Office ([place]) --------GLADIS MICHAEL ([id number]) 1975 FDa Time Provider Mxvrresbsl87/5/17 10:00 AM ISAAC SHELTON During your visit today, we recorded the following information about you: Temperature Pulse Respiration Blood pressure 99 degrees 96/minute 18/minute 143/93 Weight Height 103.5kg 1.6 Kassidy Shelton DO 03/14/2017 2:41 PM SignedPATIENT NAME: Gladis ElderRN: [id number] PHYSICIAN: Joseph Harris DO[address] [facility] [id number] CARE PHYSICIAN: MASOOD Rubin PHYSICIANS:CHIEF COMPLAINT: Lymphocytosis (primary encounter diagnosis) SESSMENT/PLAN:1. LymphocytosisAbsolute lymphocytosis - BCR ABL and flow cytometry negative in April 2016.Paraprotein evaluation reveals slight IgG Level M spike quantitative is 0.16.No other diagnostic abnormalities. 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 No night [...] for5 days straight. Went to ER 02/26. [place] was negative, strep negative. Flunegative. She was [...] stand up without getting nausea,dizzy. She has se chay sweats in the morning when she gets [...] no acute distress, appears stated ageSKIN: lesions, r louis, itching. SKIN: Normal color, texture, turgor, no rashesor lesionsHEENT: significant headaches,changes in hearing, changes in vision, nosebleeds. feels right side of her neck is swollen. Ear andthroat pain.ENT: No scleral icterus. no specific adenopathy was palpated in her neck,supraclavicular area. NECK: Supple, no thyromegaly, no JVD.: dysuria, frequency or incontinence. LYMPH: No cervical, supraclavicular,axillary, inguinal adenopathy.RESP: dyspnea, cough, wheezing. LUNG: Clear to auscultation, no wheezing ralesor rhonchiCARD: chest pain, leg swelling, palpitations. HEART: Regular.No murmurs,gallop, or rubs. No ectopy.GI: abdominal pain, diarrhea, constipation, melena, hematochezia. seehistory of present illness for description of nausea vomiting and fevers.ABDM: Soft. Non-tender. Non-distended. Bowel sounds normal. No masses. Nohepatosplenomegaly.HEME: prolonged bleeding, bruising, adenopathy. EXT: No clubbing, cyanosisor edema.MUSC: joint pain or swelling. MUSC: No jointswelling, deformity, ortenderness.NEURO: syncope, seizures, peripheral numbness or tingling. BACK: Notenderness to palpation. No flank tenderness.MEDICATIONS:pindolol (VISKEN) 5 mg tablet Take 5 mg [...] Catheter, Enteric Contrast asdesignated per enteric contrast guidelinesALLERGIES:ALLERGIESAllergen Reactions- Toprol Xl [Metoprol* Other: See Comments [...] my recommendations listed below. The patientElizabeth Frances Fernanda verbalizedunderstanding and agreed with theserecommendations and plan. I answered all questions satisfactorily..Hai Shelton D.O.Medical OncologistKnightdale, [place]Referring Provider: ISAAC SHELTON [[id number]]Allergies As of Date: 03/13/2017 Noted Allergy ReactionTOPROL XL (METOPROLOL) 04/11/2016 14 - Other: See Comments Comments: heart races per patientDate Reviewed: 03/13/2017Reviewed by: Merna Gudino - Fully AssessedReason for Visit: Lymphocytosis [Other] Cmt: follow upPrimary Visit Diagnosis:Lymphocytosis [D72.820]Order(s):CT ABD/PEL W IVCON [2800937] Order #: [id number] FUTURE CT CHEST W IVCON [[id number]] Order #: [id number] FUTURE iv contrast (radiology procedure)CT Chest ABD/PEL-Inject, [...] [address] CT NECK SOFT TISSUE W IVCON [[id number]] Order #: [id number] FUTURE [] iv contrast (radiology procedure)Inject 1 [...] GRADE LEUK MARKERS FC [SQPBLGLY] Order #: [id number] STAFF REVIEW WITH CBC AND DIFF [SQSTREV] Order #: [id number]. #:[id number] COMP METABOLIC PANEL [SQCMP] Order #: [id number] FUTURE TSH BLD [SQTSH] Order #: [id number] FUTURE RETIC COUNT [SQRETIC] Order #: [id number] FUTURE PROTEIN ELECTROPHORESIS W/INTERP [SQSEPG] Order #: [id number] FUTURE CBC + DIFF (FOR REMOTE [facility] USE) [SQRCBCDF] Order #: [id number] FUTURE KAPPA/COPE,FREE,SER [SQKLFRS] Order #: [id number] FUTURE MONOCLONAL PROT BLD W/INTERP [SQMPASRM] Order #: [id number] FUTURE HEP REMOTE PANEL BL [SQHREMOP] Order #: [id number] FUTUREPrescriptions as of 03/13/2017 Sig: PINDOLOL 5 MG TABLET Take 5 mg by mouth twice kwasi* SERTRALINE 50 MG TABLET Take 50 mg by mouth once kwasi* LISINOPRIL 2.5 MG TABLET Take 2.5 mg by mouth once buck* IV CONTRAST (RADIOLOGY PROCED* CTChest ABD/PEL-Inject, intr* ENTERIC CONTRAST (RADIOLOGY P* For CT CHESTABD/PEL W IVCON R* IV CONTRAST (RADIOLOGY PROCED* Inject 1 Each intravenously o*Problem List As Of Date 03/13/2017 Noted Resolved Lymphocytosis [D72.820] INVALID FOR*Encounter Status:Closed by ISAAC SHELTON DO on 03/14/17NormalCProMedica Memorial Hospital [id number] U/L Mkgozg525-064LuyxjlepxProvidence HospitalComment on above:Performed By: #### LD6 ####[facility] [address] [place], [place] [phone] [id number] ID: [id number]: Isaac SheltonService: (none)Author Type: PhysicianType: Progress NotesFiled: 03/14/2017 2:41 PMNote Text:PATIENT NAME: Gladis PatelarMRN: [id number] PHYSICIAN: Joseph Harris DO[address] [facility] [id number] CARE PHYSICIAN: MASOOD Rubin PHYSICIANS:CHIEF COMPLAINT: Lymphocytosis (primary encounter diagnosis)ASSESSMENT/PLAN:1. Lym phocytosisAbsolute lymphocytosis - BCR ABL and flow cytometry negative in April2016. Paraproteinevaluation reveals slight IgG Level M spikequantitative is 0.16. No other diagnostic abnormalities.At this pointwe are considering this a monoclonal gammopathy of undeterminedsignificance. For extreme low level of M protein and the immunofixationreport which states that the bands are rather faint,we will continue tomonitor onlyNegative JAK2 MutationWe were [...] W IVCON-PERIPHERAL BLOOD LOW GRADE LEUK MARKERS FC- STAFF REVIEW WITH CBC AND DIFF-COMP METABOLIC PANEL-TSH BLD-RETIC COUNT-PROTEIN ELECTROPHORESIS W/INTERP-CBC + DIFF (FOR REMOTE [facility] USE)-KAPPA/COPE,FREE,SER-MO NOCLONAL PROT BLD W/INTERP-HEP REMOTE PANEL [...] total protein and albumin, normal hemoglobin 13.4, norm alkidney function, normal TSH.Family History.Mother has Jak2 positive essential thrombocytosis/polycythemia.Her sisters had similar disease.April 11, 2016 No night sweats,Initial consult today.No changes in weight.No early satiety.Some nausea for about the last year.BP has been elevated for aboutthree weeks now.Had few ER visits at [facility] last year for LUQ pain and had [...] alsonotes some darkening over her cheekbones intermittently belowthe areawhere dark circles under eyes would tend to develop.March 13, 2017 Feb 24 she went to her PCP for Ear and throat pain. She had puspockets in her throat. She was given augmentin by Dr. Jose. Fever for5 days straight. Went to ER 02/26. [place] was negative, strep negative.Flu negative. Shewas placed on Azithromycin. Still not improving 03/02went [...] CXRs have been negative.She is snoring a lot.She never had any sinus complaints. Feels rightside of her neck is swollen. Lost 12 lbs.Vitals: BP 143/93 Pulse 96 Temp (Src) 99 (Oral) Resp 18 Ht 5'2.992 (1.60m) Wt 228 lb 3.2 oz (103.5kg) BMI 40.43 kg/(m2). Bodysurface area is 2.14 meters squared. REVIEW OF SYSTEMS PHYSICAL EXAM ECOGPS: NEGATIVES POSITIVES NEGATIVES POSITIVESGEN: fevers, sweats, chills. [...] LUNG: Clear to auscultation, no wheezingrales or rhonchiCARD:chest pain, leg swelling, palpitations. HEART: Regular. Nomurmurs, gallop, or rubs. No ectopy.GI: ab dominal pain, diarrhea, constipation, melena, hematochezia.see history of present illness for description of nausea vomiting andfevers. ABDM: Soft. Non- tender. Non-distended. Bowel sounds normal.No masses. No hepatosplenomegaly.HEME: prolonged bleeding, bruising, adenopathy. EXT: No clubbing,cyanosis or edema.MUSC: joint pain or swelling. MUSC: No joint swelling, deformity, ortenderness.NEURO: syncope, seizures, peripheral numbness or tingling. BACK: Notenderness to palpation. No flank tendernes s.MEDICATIONS:pindolol (VISKEN) 5 mg tablet Take 5 mg [...] line or IVAD, may access foradministration according toline specific nursing protocol. Once exam iscomplete flush line and de-access according to line specific nursingprotocol in the CT contrast administration guidelines link.enteric contrast (radiology procedure) For CT CHESTABD/PEL W IVCON Routineorder Administer, As Directed One Time Only, via Oral,Rectal, both Oraland Rectal, Enteric Tube, Stoma or Indwelling Catheter, Enteric Contrastas designated per enteric contrast guidelinesALLERGIES:ALLERGIESAllergen Reactions- Toprol Xl [Metoprol* Other: See Comments heart races per patientPAST MEDICAL HISTORYDiagnosis Date- Anxiety- Hypertension- LeukocytosisPAST SURGICAL HISTORYProcedure Laterality Date- DELIVERY ONLY , low nixon sverse- CHOLECYSTECTOMYNo family history on file.SOCIAL HISTORY:Social HistorySubstance Use Topics-Smoking status: Former Smoker- Smokeless tobacco: Never Used- Alcohol use NoLABS:RADIOLOGY/OTHER STUDIES:COUNSELING:I discussed with Gladis the natural history, treated course, andprognosis of Lymp hocytosis (primary encounter diagnosis); my impressionas well as the rationale, logistics, risks, benefits, and alternatives tothe management options noted above; and my recommendations listed below.The patient Gladis Michael verbalized understanding and agreed withthese recommendations and plan. I answered all questions satisfactorily..Hai Shelton D.O.Medical OncologistKnightdale, [place]NormalCBellevue HospitalRemote Abs Gran + CBC (for [facility] use only)on 28-87-2911Tfrih Gran Count10.95 k/uLHigh1.45-7.50 [facility] HospitalErythrocyte distribution width Auto Ratio (RBC)14.0 % Evjgtd42.5-15.0Prov[facility] HospitalErythrocytes (RBC)5.04 10*6/uLNormal 3.90-5.20Prov[facility] HospitalHematocrit (HCT)41.8 %Gzzbex75.0-46.0 [facility] HospitalHemoglobin mass conc (Bld)14.0 g/oJDmdqqx77.5-15.5 [facility] HospitalMCH27.8 kGFetnfy23.0-34.0[facility] MCHC mass conc (RBC)33.5 g/iYFunniz98.5-36.0[facility] HospitalMCV82.9 fL Ajywpr11.0-100.0Prov[facility] HospitalPlatelet mean volume (PMV)9.3 fLNormal 9.0-12.7CBellevue HospitalPlatelets592 10*3/wPTftl797-149FlvekgvvkProvidence HospitalWBC (Leukocytes)14.22 10*3/uLHigh3.70-11.00[facility] Rev w CBCDIFon 29-02-8639Nyp Baso0.20 k/uLHigh<0.11CMcCullough-Hyde Memorial Hospital on above:Performed By: #### STREV ####[place] [address] [address], [place] [phone] Mono0.76 k/uL Normal<0.87[facility] on above:Performed By: #### STREV ####[place] [address] [address], [place] [phone] Neut11.19 k/uLHigh1.45-7.50[facility] on above: Performed By: #### STREV ####[address] [phone]/100 WBC Auto (Bld)1.4 %Normal [facility] on above:Performed By: #### STREV ####[address] [phone] CommentsSEE COMMENTNormalCMcCullough-Hyde Memorial Hospital on above: Result Comment: See Staff ReviewPerformed By: #### STREV ####[place] [address] [place], [place] [phone] 10*3/uLNormal<0.46[facility] on above:Performed By: #### STREV ####[place] [address], [place] [phone]/100 leukocytes0.6 %NormalProvidence Hospital Comment on above:Performed By: #### STREV ####[place] [address], [place] [phone] distribution width Auto Ratio (RBC)13.6 %Dfwhrh02.5-15.0German Hospitalment on above: Performed By: #### STREV ####[place] [address], [place] [phone] (RBC)5.19 10*6/uLNormal 3.90-5.20[facility] on above:Performed By: #### STREV ####[place] [address] [address] [phone] (HCT)45.0 %Qpbiyz61.0-46.0German Hospitalment on above:Performed By: #### STREV ####[place] [address] [address] AvLone [place], [place] [phone] mass conc (Bld)14.1 g/dLNormal 11.5-15.5CMcCullough-Hyde Memorial Hospital on above:Performed By: #### STREV ####[place] [address] [address] [phone] 4-9316Tfrwodruhts3.42 10*3/uLNormal1.00-4.00[facility] on above:Performed By: #### STREV ####[place] [address]Frank[address], [place] [phone]/100 dxebitnbxe43.5 %Normal [facility] on above:Performed By: #### STREV ####[place] [address]CT[address] Ville [phone] kASjhict17.0-34.0[facility] on above: Performed By: #### STREV ####[address] AvMichele Ville [phone] mass conc (RBC)31.3 g/gBWujfqr52.5-36.0 [facility] on above:Performed By: #### STREV ####[address] Av[address]ichele Ville [phone] sHSdidwt27.0-100.0[facility] on above: Performed By: #### STREV ####[place] [phone]/100 leukocytes5.2 %[facility] on above:Performed By: #### STREV ####[place] [phone]/100 WBC Auto (Bld)76.3 %[facility] on above:Performed By: #### STREV ####[place] [phone] (cervix/vaginal)Reviewed by Karon Levin DO ([id number])[facility] on above:Performed By: #### STREV ####[address] Av[address]ichele [place] [phone] mean volume (PMV)10.0 fLNormal9.0-12.7CBellevue Hospital Comment on above:Performed By: #### STREV ####[place] [phone] 10*3/sCDbwd294-807 [facility] on above:Performed By: #### STREV ####[facility] Le[address] [place], [place] [phone] Cell MorphSEE COMMENTNoMount Carmel Health System on above: Result Comment: UnremarkablePerformed By: #### STREV ####[facility] [place], [place] [phone] ReviewSEE COMMENTNoMount Carmel Health System on above:Result Comment: Neutrophilic Leukocytosis Without Left ShiftThrombocytosisPerformed By: #### STREV ####[place] [address] [place], [place] [phone] (Leukocytes)14.66 10*3/uLHigh3.70-11.00[facility] on above:Performed By: #### STREV ####[place] [address] [place], [place] [phone] 02-06-2017 CNOVSPVisit (SP) Office ([place]AS[place]) --------GLADIS MICHAEL ([id number]) 1975 [facility] Time Provider Department02/06/17 11:15 AM ISAAC SHELTON During your visit today, we recorded the following information about you: Temperature Pulse Respiration Blood pressure 98.6 degrees 66/minute 16/minute 161/102 Weight Height 108.6 kg 1.6 Kassidy Shelton DO 02/07/2017 12:59 AM SignedPATIENT NAME: Gladis ElderRN: [id number] PHYSICIAN: Joseph Harris DO[address] [facility] [id number] CARE PHYSICIAN: Joseph Harris DOOTHER PHYSICIANS:CHIEF COMPLAINT: Lymphocytosis (primary encounter diagnosis )ASSESSMENT/PLAN:1. LymphocytosisAbsolute lymphocytosis - BCR ABL and flow cytometry negative in April 2016.Paraprotein evaluation reveals slight IgG Level M spike quantitative is 0.16.No other diagnostic abnormalities. 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 For extreme low level of Mprotein and the immunofixation report which states that thebands are ratherfaint, we will continue to monitor [...] and we will discuss results on phone.. 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.Past medical history heart palpitations, hypertension, trace mitralregurgitation, ovarian cysts, anxiety,chronic lymphocytosis.Lisinopril 2.5 mg tablet, pindolol 5 mg [...] 2016 was reviewed revealed normal liver and ki dneyfunction, normal total protein and albumin, normal hemoglobin 13.4, normalkidney function, normal TSH.Family History.Mother has Jak2 positive essential thrombocytosis/polycythemia.Her sisters hadsimilar disease.April 11, 2016 No night sweats,Initial consult today.No changes in weight.No early satiety.Some nausea for about the last year.BP has been elevated for about three weeks now.Had fewER visits at [facility] last year for LUQ pain and had CT scans.04/29/16Patient has no new complaints. No night sweats, no weight changes, no feversweats or chills. Continues overall do well.January doing good overall. Complains of increased fatigue.No other complaints. No fever/s/c. No nightsweats.No lumps or bumps.Tired all the time.Some mild nausea after eating. LUQ pain still comes andgoes. She also notessome darkening over her cheekbones intermittently below the area where darkcircles under eyes would tend to develop. COMPLETE REVIEW OF SYSTEMS: NEGATIVES POSITIVESGEN: fevers, sweats, chills. Overall feels well. persistent and potentiallyincreased fatigue.HEENT: significant headaches, changes in hearing, changes in vision, nosebleeds.RESP: dyspnea, cough, wheezing.CARD: chestpain, leg swelling, palpitations.GI: abdominal pain, vomiting, diarrhea, constipation, melena,hematochezia. Nausea chronic for a year or more. Occasional LUQ pain.: dysuria, frequency or incontinence.MUSC: joint pain or swelling.SKIN: lesions, rash, itching. see history of present illnessHEME: prolonged bleeding, bruising, adenopathy.NEURO: syncope, seizures, peripheral numbness or tingling.MEDICATIONS:pindolol (VISKEN) 5 mg tablet Take 5 mg by mouth twice daily.sertraline (ZOLOFT) 50 mg tablet Take 50 mg by mouth once daily.lisinopril 2.5 mg tablet Take 2.5 mg by mouth once daily.ALLERGIES:ALLERGIESAllergen Reactions- Toprol Xl [Metoprol* Other: See Comments ANDquot;heart racesANDquot; per patientPAST MEDICAL HISTORYDiagnosis Date- Anxiety- Hypertension- LeukocytosisPAST SURGICAL HISTOR YProcedure Laterality Date- DELIVERY ONLY , low transverse- [...] tenderness.BACK: No tenderness to palpation. No flank tenderness.LABS:RADIOLOGY/OTHER STUDIES:COUNSELING:I discussed withElizabeth the natural history, treated course, and prognosisof Lymphocytosis (primary encounter diagnosis); my impression as well as therationale, logistics, risks, benefits, and alternatives to the managementoptions noted above; and my recommendations listed below. The patientElizamoises Michael verbalized understanding and agreed with theserecommendations and plan. I answered all questions satisfactorily..Hai Shelton D.O.Medical OncologistNoGoshen, [place]Referring Provider: ISAAC SHELTON [[id number]]Allergies As of Date: 02/06/2017 Noted Allergy ReactionTOPROL XL(METOPROLOL) 04/11/2016 14 - Other: See Comments Comments: heart races per patientDate Reviewed: 0 02/06/2017Reviewed by: Richard Leon) Luba - Fully AssessedReason for Visit: Lymphocytosis [Other] Cmt: 9 month follow upReason For Visit History RecordedPrimary Visit Diagnosis:Lymphocytosis [D72.820]Order(s):JAK2 V617F MUTATION [SQJAK2] Order #: [id number] FUTUREDisposition: Return in about 6 month s (around 08/06/2017), or jak2 lab today. f/u in 6 months. she will call and we will discuss resultson phone..Follow-up and Disposition History RecordedPrescriptions as of 02/06/2017 Sig: PINDOLOL 5 MG TABLET Take 5 mg by mouth twice kwasi* SERTRALINE 50 MG TABLET Take 50 mg by mouth once kwasi* LISIN OPRIL 2.5 MG TABLET Take 2.5 mg by mouth once buck*Problem List As Of Date 02/06/2017 Noted ResolvedLymphocytosis [D72.820] INVALID FOR*Encounter Status:Closed by ISAAC SHELTON DO on 02/07/17NoDoctors HospitalJAK2 V617F Mutationon [id number] V617F InterpResult: JAK2 V617F Mutation Not DetectedCleveland Clinic Mentor HospitalComment on above:Result Comment: Interpretation: The JAK2 V617F Mutation was not detected. The V617F point mutation has been reported in a high percentage of cases of polycythemia vera, approximately half of the cases of essential thrombocythemia and chronic idiopathic myelofibrosis, and in a smaller proportion of other myeloid disorders.(NOTE)Methodology:Following DNA extraction and library construction utilizing theinfibond Cancer Hotspot Panel v.1 ([employer], [place]), DNA sequencing of gene mutation hotspot regions was performed onthe MiSeq instrument (Illumina, [place], [place]). [employer] software([employer], [place], [place]) was used to analyze FASTQ files toidentify hotspot mutations in requested genes.Test Limitations:Sequence changes outside the analyzed mutation hotspots, includingintronic, non-coding, and splice site variants, will not beidentified by this test. Insertions and deletions larger than 20 and40 bp, respectively, may not be identified by this test. The lowerlimit of detection of this assay is approximately 5% alleleproportion. Variants below 5% allele proportionmay be reported atthe discretion of the molecular pathology professional staff if thetechnical quality of the sequencing is sufficient at that locationand the call is unequivocal. Common germline polymorphisms areconsidered to represent wild type sequence and are not included inthis report. The presence of nucleotide polymorphisms or variants atthe annealing sites of the primers used in amplification andsequencing may cause allele drop- outs, hence a false negative resultis possible.This test was developed and its performance characteristicsdetermined by [facility] and[facility] ([facility]). It has not been cleared orapproved by the FDA. -[facility] is regulated under CLIA as qualified toperform high-complexity testing. This test is used forclinicalpurposes. It should not be regarded as investigational or forresearch.References:Gracy DA, Socrates Squires, Rene R, Roberto Carlos J, Borjose MJ, Kesha Mccullough MM,et al. The 2016 revision to the World Health Organization (WHO)classification of myeloid neoplasms and acute leukemia. Rpvit0897;127: 2391-405.Magdalene Squires, Jonah R, Adrian JW. Myeloproliferative neoplasms:contemporary diagnosis using histologyand genetics. Funmi Rev ClinOncol 2009;6:627-37.Performed By: #### LD6, JAK2 ####[place] [address] [place], [place] [phone] V617F Spec TypePeripheral BloodNormalCMcCullough-Hyde Memorial Hospital on above: Performed By: #### EVANGELISTA6, JAK2 ####[place] [address] [place], [place] [phone] Path RevReviewed by David Vo M.D., Ph.D ([id number])NormalMer[facility] Health Def[facility] Hospital on above:Performed By: #### EVANGELISTA6, JAK2 ####[address] [place] [phone] [phone] U/KQnioqv002-714ZruxierpwProvidence HospitalComment on above:Performed By: #### LD6, JAK2 ####[facility] [address]gsvyrbecm[address] [place], [place] [phone] [phone] ID: [id number]: Isaac Carrasco: (none)Author Type: PhysicianType: Progress NotesFiled: 02/07/2017 12:59 AMNote Text:PATIENT NAME: Gladis PatelarMRN: [id number] PHYSICIAN: [place] [address]UYNWGLZ CARE PHYSICIAN: MASOOD Rubin PHYSICIANS:CHIEF COMPLAINT: Lymphocytosis (primary encounter diagnosis)ASSESSMENT/PLAN:1. LymphocytosisAbsolute lymphocytosis - BCR ABL and flow cytometry negative in April2016. Paraproteinevaluation reveals slight IgG Level M spikequantitative is 0.16. No other diagnostic abnormalities.At this pointwe are considering this a monoclonal gammopathy of undeterminedsignificance. For extreme low level of M protein and the immunofixationreport which states that the bands are rather faint,we will continue tomonitor onlyDiscussed today whether or [...] she has persistently elevated platelets andwhite blood cellsand her mother has JAK2 positive disease.LDH and sedimentation rate within normal limits.(D72.820) Lymphocytosis (primary encounter diagnosis)Visit (SP) Office on 02/06/17-JAK2 V617F MUTATION Return in about 6 months (around 08/06/2017), or jak2 lab today. f/u in 6months. she will call and we will discuss results on phone.. ---HPI: This is a 41 year old female [...] 8300.Recently had some chronic fatigue, nausea, lightheadedness, headac hes.Laboratory from January 2016 was reviewed revealed normal liver and kidneyfunction, normal totalprotein and albumin, normal hemoglobin 13.4, normalkidney function, normal TSH.Family History.Mother has Jak2 positive essential thrombocytosis/polycythemia.Her sisters had similar disease.April 11, 2016 No night sweats,Initial consult today.No changes in weight.No early satiety.Some nausea for about the last year.BP has been elevated for about three weeks now.Had few [facility] visits at [facility] for LUQ pain and had CT scans.04/29/16Patient [...] SYSTEMS: NEGATIVES POSITIVESGEN: fevers, sweats, chills. Overall feelswell. persistent andpotentially increased fatigue.HEENT: significant headaches, changes in hearing,changes in vision, nosebleeds.RESP: dyspnea, cough, wheezing.CARD: chest pain, leg swelling, palpitations.GI: abdominal pain, vomiting, diarrhea, constipation, melena,hematochezia. Nausea chronic fora year or more. Occasional LUQ pain.: dysuria, frequency or incontinence.MUSC: joint pain or swelling.SKIN: lesions, rash, itching. see history of present illnessHEME: prolonged bleeding, bruising,adenopathy.NEURO: syncope, seizures, peripheral numbness or tingling.MEDICATIONS:pindolol (VISKEN) 5 mg tablet Take 5 mg by mouth twice daily.sertraline (ZOLOFT) 50 mg tablet Take 50 mg by mouth oncedaily.lisinopril 2.5 mg tablet Take 2.5 mg by mouth once daily.ALLERGIES:ALLERGIESAllergen Reactions- Toprol Xl [Metoprol* Other: See Comments [...] (108.6kg) BMI 42.42 kg/(m2). Bodysurface area is 2.2meters squared.ECOG PS: 0GEN: Well appearing, alert, in no acute distress, appears stated ageSKIN: Normal color, texture, turgor, no rashes or lesionsENT: No scleral icterus. PERRL bilaterally. EOMI.No pharyngealerythema. No oral mucosal lesions.NECK: Supple, no thyromegaly, no JVD.LYMPH: No cervical, supraclavicular, axillary, inguinal adenopathy.LUNG: Clear to auscultation, no wheezing rales or rhonchiHEART: Regular. No murmurs, gallop, or rubs. No ectopy.ABDM: Soft. Non-tender. Non-distended. Bowel sounds normal. No masses.No hepatosplenomegaly.EXT: No clubbing, cyanosis or edema.MUSC: Nojoint swelling, deformity, or tenderness.BACK: No tenderness to palpation. No flank tenderness.LABS:RADIOLOGY/OTHER STUDIES:COUNSELING:I discussed with Gladis the natural history, treated course, andprognosis of Lymphocytosis (primary encounter diagnosis); my impressionas well as the rationale, logistics, risks, benefits, and alternatives tothe management options noted above; and my recommendations listed below.The patient Gladis Michael verbalized understanding and agreed withthese recommendations and plan. I answered all questions satisfactorily..Hai Shelton D.O.Medical OncologistN [place], [place]NormalCBellevue HospitalRemote Abs Gran + CBC (for [facility] use only)on 29-27-6312Ulgrf Gran Count10.53 k/uLHigh 1.45-7.50Providence HospitalErythrocyte distribution width Auto Ratio (RBC)13.8 %Qierca38.5-15.0Providence HospitalErythrocytes (RBC)4.88 10*6/uLNormal3.90-5.20Providence HospitalHematocrit (HCT)40.8 %Normal 36.0-46.0Providence HospitalHemoglobin mass conc (Bld)13.6 g/dLNormal 11.5-15.5CBellevue HospitalMCH27.9 tOHyhstw68.0-34.0UK HealthcareHC mass conc (RBC)33.3 g/xXAjwahn62.5-36.0[facility] MCV83.6 lYCnijrq45.0-100.0Providence HospitalPlatelet mean volume (PMV) 9.6 fLNormal9.0-12.7CBellevue HospitalPlatelets448 10*3/jROurg936-493 Providence HospitalWBC (Leukocytes)14.69 10*3/uLHigh3.70-11.00Providence HospitalLDon 68-34-3943DZ026 U/GHgwlhn979-759FizvflvasProvidence Hospital Comment on above:Performed By: #### LD6 ####[facility] Bfrlhwhevcjm[address] [place], [place] [phone] Abs Gran + CBC (for [facility] use only)on 88-96-4897Nlitd Gran Count8.16 k/uLHigh1.45-7.50Providence HospitalErythrocyte distribution width Auto Ratio (RBC)13.7 %Wrknyr50.5-15.0 Providence HospitalErythrocytes (RBC)5.16 10*6/uLNormal3.90-5.20Providence HospitalHematocrit (HCT)43.4 %Mgfbvn16.0-46.0[facility] Hemoglobin mass conc (Bld)14.3 g/cJAsichv87.5-15.5CMiami Valley HospitalH 27.7 oIArkkqt32.0-34.0UK HealthcareHC mass conc (RBC)32.9 g/dL Tpjtfa00.5-36.0UK HealthcareV84.1 bTXrlstk50.0-100.0Providence HospitalPlatelet mean volume (PMV)9.6 fLNormal9.0-12.7CBellevue HospitalPlatelets481 10*3/tOIosb015-499ZhdulktynProvidence HospitalWBC (Leukocytes)12.17 10*3/uLHigh3.70-11.00Providence HospitalCNCOon 02-34-3574JBYXEblvah TextNortMaine Medical Center[address] [place] [address]Ibify: [phone]: [facility]e[address] [place], [place] [address]Gsqmg: [phone]: [address] [address]Ypvfc: [phone]: Toll Free: [phone] [email or web address] Saad Arredondo M.D., Carlos Gleason M.D.Luiz Berrios M.D.Isaac Shelton D.O..Denisha Ruiz M.D.Heather Hollingsworth M.D. Julito Salguero M.D..November 28, 2016Gladis Sears [place] [address]Etta Ms. Michael,Youmissed your scheduled appointment on 11/28/2016. Please call our officeto reschedule. If you need to cancel any future appointments, please call togive us 24 hour notice so that we can offer your appointment to anotherpatient.Sincerely,Isaac Au M.D. NormalProvidence Hospital Vital Signs Date TimeVital SignValuePerforming CeobxcurtSlngozdn82-55-6950 12:57-0400Body lkdyzj659.02 cmPamela Mariann [employer] Work Phone: [facility]10-01-2025 12:57-0400 Body mass index (BMI) [Ratio]40.6 kg/e5Adygfu Mariann [employer] Work Phone: [facility]10-01-2025 12:57-0400 Body pyueal455.04 kgPamela Mariann [employer] Work Phone: [facility]04-25-2025 22:00-0400 Heart rate61 /minKaylinn Dokken [facility]04-25-2025 22:00-2500YjB3% (BldA) [Mass fraction]98 %Kaylinn Dokken [facility]04-25-2025 21:30-0400Heart rate66 /minKaylinn Dokken [facility]04-25-2025 21:30-0400 Respiratory rate22 /minKaylinn Dokken [facility]04-25-2025 21:30-7730VfN2% (BldA) [Mass fraction]97 %Kaylinn Dokken [address] [place], [place] [address]04-25-2025 21:27-0400Heart rate60 /minKaylinn Dokken [address] [place], [place] 8333704-25-2025 21:27-5142VcD2% (BldA) [Mass fraction]96 %Kaylinn Dokken [address] [place], [place] 8333704-25-2025 20:42-0400 Respiratory rate22 /minKaylinn Dokken [address] [place], [place] 8333704-25-2025 20:42-0400 Diastolic blood mm[Hg]Kaylinn Dokken [address] [place], [place] 8333704-25-2025 20:42-0400 Systolic blood mwttueqt736 mm[Hg]Kaylinn Dokken [address] [place], [place] 8333704-25-2025 20:42-0400Mean blood pydahwtz238 mm[Hg]Kaylinn Dokken [address] [place], [place] 8333704-25-2025 19:58-0400Body ndwekzthtid79.24 [degF]Kaylinn Dokken [address] [place], [place] 8333704-25-2025 19:58-0400 Diastolic blood nevxtctl92 mm[Hg]Kaylinn Dokken [address] [place], [place] 8333704-25-2025 19:58-0400Heart rate79 /minKaylinn Dokken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 Title : MEDICAL: Hypertension, Problem Status : Inactive,,Medical HistoryProblem Title : MEDICAL: No history of significant medical diseases, Problem Status : Resolved,,Medical HistoryProblem Title : no known problems, Problem Description : no known problems, Problem Comment : F, Problem Status : Active,,Medical HistoryProblem Title : past medical history E&M, Problem Description : past medical history E&M, Problem Comment : Hypertension Rapid Heartbeat, Problem Status : Active,,Medical HistoryProblem Title : past medical history reviewed, Problem Description : past medical history reviewed,Problem Comment : reviewed - no changes required, Problem Status : Active,,Medical HistoryProblem Title : Problems Reconciled, Problem Status : Active,,Medical HistoryProblem Title : TRANSFUSION HISTORY: No history of receiving blood or blood product transfusion(s),Problem Status : Inactive,, Surgical HistoryProblem Title : cholecystectomy (gallbladder surgery), hx of, Problem Description : cholecystectomy(gallbladder surgery), hx of, Problem Comment : yes, Problem Status : Resolved,Surgical HistoryProblem Title : Cholecystectomy, Problem Status : Active,Surgical HistoryProblem Title : Diagnostic laparoscopy, Problem Comment : dx lap - hydrosalpinx fallopian tube remnants, Problem Status : Active,Surgical HistoryProblem Title : Laparoscopy, Problem Status : Active,Surgical HistoryProblem Title : past surgical history reviewed, Problem Description : past surgical history reviewed, Problem Comment : reviewed - no changes required, Problem Status : Inactive,Surgical History Problem Title : past surgical history reviewed, Problem Description : past surgical history reviewed, Problem Comment : reviewed - no changes required, Problem Status : Resolved,Surgical HistoryProblem Title : surgical procedures, hx of, Problem Description : surgical procedures, hx of, Problem Comment : Ablasion-2014 J-Vzhdfws-2924 Cholecystectomy-2005 , Problem Status : Active, Hospitalization Historysee above [employer] Other History general Narrative - Reported* Type Description Date Medical History Problem Title : comp liance with medical treatment, Problem Description : compliance with medical treatment, Problem Comment : Done, Problem Status : Active,, Medical HistoryProblem Title : MEDICAL: Hypertension, Problem Status : Inactive,,Medical HistoryProblem Title : MEDICAL: No history of significant medical diseases, Problem Status : Resolved,,Medical HistoryProblem Title : no known problems, Problem Description : no known problems, Problem Comment : F, Problem Status : Active,,Medical HistoryProblem Title : past medical history E&M, Problem Description : past medical history E&M, Problem Comment : Hypertension Rapid Heartbeat, Problem Status : Active,,Medical HistoryProblem Title : past medical history reviewed, Problem Description : past medical history reviewed,Problem Comment : reviewed - no changes required, Problem Status : Active,,Medical HistoryProblem Title : Problems Reconciled, Problem Status : Active,,Medical HistoryProblem Title : TRANSFUSION HISTORY: No history of receiving blood or blood product transfusion(s),Problem Status : Inactive,, Surgical HistoryProblem Title : cholecystectomy (gallbladder surgery), hx of, Problem Description : cholecystectomy(gallbladder surgery), hx of, Problem Comment : yes, Problem Status : Resolved,Surgical HistoryProblem Title : Diagnostic laparoscopy, Problem Comment : dx lap - hydrosalpinx fallopian tube remnants, Problem Status : Active,Surgical HistoryProblem Title : surgical procedures, hx of, Problem Description : surgical procedures, hx of, Problem Comment : Ablasion-2014 [id number] Cholecystectomy-2005 , Problem Status : Active,Hospitalization Historysee above [facility] Other Hospital course Narrative No data available for this section [facility] data available for this section [facility] Reason for referral (narrative)No reason for referral information available[facility] [place] Work Phone: Summary Purpose Family History Relationship Condition Age at Onset Recorded Date/T reg father Malignant neoplasm Unknown DeceasedUnknown Advance Directives Advance Directive Response Recorded Date/ Time Advance Directives No September 20, 024 9:43am Advance Directive Response Recorded Date/ Time Advance Directives No March 15, 2025 9:19am Chief Complaint and Reason for Visit Chief Complaint red bumps on back Chief Complaint Admit Date Headache, congestion, earache September 12, 2024 1:28pm Reason for Visit Admit Date Left otitis media September 12, 2024 1:28 pm Chief Complaint Admit Date R22.31 - Localized swelling, mass and sapna mp, right March 09, 2025 9:18am NEW RT WRIST GANGLION CYST NX March 12:00pm Reason for Visit Admit Date Mass of right wrist March 09, 2025 12 :00pm Right carpal tunnel syndrome March 12:00pm Chief Complaint Admit Date R22.31 - Localized swelling, mass and sapna mp, right March 09, 2025 9:18am NEW RT WRIST GANGLION CYST NX March 12:00pm H & P RIGHT CARPAL TUNNEL RELEASE April 11, 2025 10:00am Reason for Visit Admit Date Mass of right wrist March 09, 2025 12 :00pm Right carpal tunnel syndrome March 12:00pm Mass of right wrist April 11, 2025 1 0:00am Right carpal tunnel syndrome April 10:00am Additional Source Comments INFORMATION SOURCE (unrecogn ized section and content) DATE CREATED AUTHOR 11/26/2017 [facility] DATE CREATED AUTHOR AUTHOR'S ORGANIZ ATION 07/10/2018 [facility] DATE CREATED AUTHOR AUTHOR'S ORGANIZ ATION 09/25/[address] [facility] DATE CREATED AUTHOR AUTHOR'S ORGANIZ ATION 10/03/2024 [facility] DATE CREATED AUTHOR AUTHOR'S ORGANIZ ATION 12/26/2024 [facility] DATE CREATED AUTHOR AUTHOR'S ORGANIZ ATION 03/19/2025 [facility] REASON FOR VISIT (unrecogniz ed section and content) COVID +school noteCOVID + Care Teams (unrecognized sec tion and content) Team Status: Active Member Role Status Dates Kailyn Waite [employer] Primary Care Provider Active Team Status: Inactive Member Role Status Dates Luke Vora DO Attending Provider Active S tart: March 09, 2025 End: March 09, 2025Kailyn Waite [employer]-CPrimary Care ProviderActiveStart: March 09, 2025 End: March 09, 2025 Team Status: Inactive Member Role Status Dates Kailyn Waite [employer] Primary Care Provider Active Start: March 09, 2025 End: March 09, 2025Juedmond Vora DOAttending ProviderActiveStart: March 09, 2025 End: March 09, 2025 Team Status: Active Member Role Status Dates Luke Vora DO Attending Provider Active S tart: March 09, 2025 Kailyn Waite [employer]-CPrimary Care ProviderActiveStart: March 09, 2025 Team Status: Active Member Role Status Dates Joseph Harris DO Primary Care Provider Active Team Status: Inactive Member Role Status Dates Joseph Harris DO Primary Care Provider Active Start: September 21, 2023 End: September 20toña Zabala [employer]-CAttending ProviderActiveStart: September 21, 2023 End: September 21, 2023 Team Status: Inactive Member Role Status Dates Monika Reyna APRN Attending Provider Active S tart: September 12, 2024 End: September 12, 2024Kailyn Waite , [employer]-CPrimary Care ProviderActiveStart: September 12, 2024 End: September 12, 2024 Team Status: Active Member Role/Relationship Status Dates Kailyn Waite [employer] Primary Care Provider Active Team Status: Inactive Member Role/Relationship Status Dates Luke Vora DO Attending Provider Active S tart: March 09, 2025 End: March 09, 2025[facility] ProviderActiveStart: March 09, 2025 End: March 09, 2025 Team Status: Inactive Member Role/Relationship Status Dates Kailyn Waite NP-C Primary Care Provider Active Start: March 09, 2025 End: March 09, 2025JuMilton Joseph ProviderActiveStart: March 09, 2025 End: March 09, 2025 Team Status: Inactive Member Role/Relationship Status Dates SOM RayC Primary Care Provider Active Start: April 11, 2025 End: April 11, 2025JustMilton Smith ProviderActiveStart: April 11, 2025 End: April 11, 2025 Goals (unrecognized section and content) Goals [...] BE BASED ON THE PRIMARY CLINICAL RECORDS. [employer] provides no warranty or guarantee of the accuracy or completeness of information in this document.
--- NOTE | 2025-04-13 09:41 | PM.PRESUREVA ---
History of Present Illness History of Present Illness Chief complaint: right carpal tunnel and right wrist mass Narrative: Patient presents for presurgical testing. The patient reports a painful lump on her right wrist that started approximately 2 years ago. The patient states she does have some numbness and tingling in her fingers. She states the pain is worse with certain activities and movement. She does take Tylenol in an attempt to alleviate her symptoms. She denies trauma, injury, weakness, or any other complaints. Review of Systems ROS Narrative REVIEW OF SYSTEMS: Negative except as stated in HPI, ten or more systems reviewed. Constitutional: No fever, chills, weakness ENT: No sore throat or epistaxis Cardiovascular: No edema, chest pain, palpitations, or activity intolerance Respiratory: No shortness of breath, cough, or wheezing Gastrointestinal: No abdominal pain, constipation, diarrhea, or vomiting Genitourinary: No dysuria or hematuria Neurological: No numbness, tingling, weakness, or headache Psychiatric: No mood changes [facility] Medical History (Updated 04/13/25 @ 09:46 by Tawanna Gonzalez NP) Right wrist pain ?M25.531 - Pain in right wrist (ICD-10) Low iron ?E61.1 - Iron deficiency (ICD-10) Snores ?R06.83 - Snoring (ICD-10) Seasonal allergies ?J30.2 - Other seasonal allergic rhinitis (ICD-10) Panic attacks ?F41.0 - Panic disorder [episodic paroxysmal anxiety] (ICD-10) Mass of right wrist ?R22.31 - Localized swelling, mass and lump, right upper limb (ICD-10) Sinusitis ?J32.9 - Chronic sinusitis, unspecified (ICD-10) CARYL (obstructive sleep apnea) ?G47.33 - Obstructive sleep apnea (adult) (pediatric) (ICD-10) Mitral valve regurgitation ?I34.0 - Nonrheumatic mitral (valve) insufficiency (ICD-10) Anxiety ?F41.9 - Anxiety disorder, unspecified (ICD-10) Abnormal uterine bleeding (AUB) ?N93.9 - Abnormal uterine and vaginal bleeding, unspecified (ICD-10) Chronic pain ?G89.29 - Other chronic pain (ICD-10) 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 - Other disorders of pituitary gland (ICD-10) Hypertension ?I10 - Essential (primary) hypertension (ICD-10) Palpitations ?R00.2 - Palpitations (ICD-10) Chest pain ?R07.9 - Chest pain, unspecified (ICD-10) Uncontrolled hypertension ?I10 - Essential (primary) hypertension (ICD-10) Carpal tunnel syndrome ?G56.00 - Carpal tunnel syndrome, unspecified upper limb (ICD-10) Surgical History (Updated 04/13/25 @ 09:38 by Tawanna Gonzalez NP) History of laparoscopy ?Z98.890 - Other specified postprocedural states (ICD-10) History of endometrial ablation ?Z98.890 - Other specified postprocedural states (ICD-10) History of bilateral salpingectomy ?Z90.79 - Acquired absence of other genital organ(s) (ICD-10) Hx of cholecystectomy ?Z90.49 - Acquired absence of other specified parts of digestive tract (ICD-10) H/O section ?Z98.891 - History of uterine scar from previous surgery (ICD-10) Family History (Updated 04/13/25 @ 09:14 by Tawanna Gonzalez NP) Other Delayed recovery from anesthesia Family history of DVT Family history of cancer Family history of renal failure Social History (Updated 04/13/25 @ 09:07 by Tawanna Gonzalez NP) Within the past year, how often did you have a drink containing alcohol: never Score interpretation: A score less than 3 is consistent with normal alcohol consumption. 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 Highest level of school completed/degree received: high school graduate Little interest or pleasure in doing things: not at all Feeling down, depressed, or hopeless: not at all Meds Home Medications and Allergies Home Medications ?Medication ?Instructions ?Recorded ?Confirmed ?Type chlorthalidone 25 mg tablet 12.5 mg PO .am 12/04/22 04/13/25 History lisinopril 20 mg tablet 20 mg PO BID 12/04/22 04/13/25 History pindolol 5 mg tablet 10 mg PO BID 12/04/22 04/13/25 History sertraline 50 mg tablet 50 mg PO Q24H 12/04/22 04/13/25 History alprazolam 0.25 mg tablet 0.25 mg PO DAILY PRN anxiety 04/13/25 04/13/25 History Allergies Allergy/AdvReac Type Severity Reaction Status Date / Time metoprolol (From Toprol XL) Allergy Intermediate tachycardia Verified 04/13/25 09:03 Exam Narrative Exam Narrative: Constitutional: Awake, alert, comfortable, well-appearing, nontoxic, interactive, vital signs as charted Head: Normocephalic, atraumatic Neck: Supple, normal appearance, normal range of motion, no meningeal signs, no lymphadenopathy Respiratory: No respiratory distress, breath sounds clear Cardiovascular: Regular rate and rhythm, strong and regular heart tones Musculoskeletal: Normal gait, no swelling or edema; right hand and wrist exam with a tender, firm, approximately 1.5 cm mass on the volar aspect of the hypothenar eminence; full range of motion of the right hand and wrist, sensation intact, good capillary refill Skin: No rashes or induration, no lesions, only visible skin inspected Neuro: No neurological deficits, normal sensation Psychiatric: Oriented ?3, normal affect Assessment and Plan Assessment and Plan (1) Carpal tunnel syndrome: (2) Mass of right wrist: (3) Right wrist pain: Plan Right carpal tunnel release and excision of right wrist mass scheduled with Dr. Vora April 18, 2025.
== END 2025-04-13 08:23 | disposition home or self-care (01) ==
LOC: PST 08:23
PROVIDERS: PCP Nurse Practitioner Family; Visit Provider Orthopaedic Surgery Orthopaedic Trauma
DX: Z01.812 Encounter for preprocedural laboratory examination (principal); Z01.818 Encounter for other preprocedural examination; G56.01 Carpal tunnel syndrome, right upper limb; R22.31 Localized swelling, mass and lump, right upper limb
CPT/HCPCS: 80053; G0463

== ENCOUNTER 2025-04-13 08:29 | Outpatient (OUT) | payer BC, SELFPAY ==
--- OUTSIDE RECORDS SUMMARY | 2025-04-13 08:36 | XMS_ITS | CCD ---
Author Organization [facility] CliniSyal Care Team Providers Care Waste Minimization Technician Name Role Phone ADAMOWICZ, ISAAC J Unavailable Unavailable ADAMOWICZ, ISAAC J Unavailable Unavailable ADAMOWICZ, ISAAC J Unavailable Unavailable ADAMOWICZ, ISAAC J Unavailable Unavailable ADAMOWICZ, ISAAC J Unavailable Unavailable ADAMOWICZ, ISAAC J Unavailable Unavailable ADAMOWICZ, ISAAC J Unavailable Unavailable ADAMOWICZ, ISAAC J Unavailable Unavailable ADAMOWICZ, ISAAC J Unavailable Unavailable ADAMOWICZ, ISAAC J Unavailable Unavailable CANDIS HERNANDEZ Unavailable Unavailable SHANAE LUNA (TAFE LECTURER) Unavailable Unavailabl e ADAMOWICZ, ISAAC J Unavailable Unavailable ADAMOWICZ, ISAAC J Unavailable Unavailable ADAMOWICZ, ISAAC J Unavailable Unavailable JESUS CHEATHAM Unavailable Unavailab le ADAMOWICZ, ISAAC J Unavailable Unavailable SHANAE LUNA (TAFE LECTURER) Unavailable Unavailabl e SHANAE LUNA (TAFE LECTURER) Unavailable Unavailabl e ADAMOWICZ, ISAAC J Unavailable Unavailable ADAMOWICZ, ISAAC J Unavailable Unavailable JESUS CHEATHAM Unavailable Unavailab JOSEPH Arceo Unavailable Unavailab le ADAMOWICZ, ISAAC J Unavailable Unavailable ADAMOWICZ, ISAAC J Unavailable Unavailable ADAMOWICZ, ISAAC J Unavailable Unavailable SHANAE LUNA (TAFE LECTURER) Unavailable Unavailabl e ADAMOWICZ, ISAAC J Unavailable Unavailable ADAMOWICZ, ISAAC J Unavailable Unavailable PHYSICIAN, DEFAULT Admitting Unavailable PHYSICIAN, DEFAULT Attending Unavailable PHYSICIAN, DEFAULT Admitting Unavailable PHYSICIAN, DEFAULT Attending Unavailable KAILYN WAITE Primary Care Physician DR GUSTAVO GREWAL Consulting Unavailable KAILYN WAITE [...] Unavailable Luke Vora DO Attending Provider Mariann ASSOCIATE ENTERTAINMENT EDITOR-C, Kailyn Lisette Primary Care Provider Kailyn Waite Lisette Primary Care Unavailable Luke Vora Attending Unavailable Luke Vora Admitting Unavailable Luke Vora DO Attending Provider [phone] Mariann ASSOCIATE ENTERTAINMENT EDITOR-C, Kailyn Knox Primary Care Provider Allergies Allergy ClassificationReported Allergen(s)Allergy TypeDate of OnsetReaction(s) Facility (6 sources)metoprolol; Translations: [METOPROLOL]Drug Turnoxg11-35-3009IRJ, heart racingMain Campus Medical Center Repository (2 sources)PyridoxalDrug Invyuvy83-32-2229[facility] Repository (3 sources)patient allergy list reviewed by nurse or physiciaPropensity to adverse -69-8625Jvbnxfp:DoneNort [employer] Other (3 sources)Allergies ReconciledPropensity to adverse reactionsUnknowUniversity Health Lakewood Medical Center [employer] Other (2 sources)Ciprofloxacin; Translations: [ciprofloxacin]Drug AllergyUnknown (qualifier value)[facility] [place] (1 source)Metoprolol; Translations: [Toprol-XL]Drug AllergyMary [facility] Rep[facility] Medications Current Medications MedicationDrug Class(es)DatesSig (Normalized)Sig (Original)acetaminophen 325 mg / oxyCODONE hydrochloride 5 mg oral tablet (2 sources)Opioid AgonistStart: 73-27-6326Vtrgraxs 5 mg-325 mg oral tablet 1 tab(s), Oral, q6hr as needed for pain, 12 tab(s), Refill(s) 0, [facility]/pharmacy #[id number], 160, cm, 10/18/21 4:04:00 EDT, Height/Length Dosing, 107, kg, 10/18/21 4:04:00 EDT, Weight Dosing Start Date: 10/18/21 Status: OrderedamLODIPine 5 mg oral tablet (1 source)Dihydropyridine Calcium Channel BlockerStart: 51-99-6544vshl 1 tablet by mouth once dailyamLODIPine 5 mg Tab 5 mg = 1 tab(s), Oral, Daily, Refills(s) 0 Start Date: 11/22/21 Status: Ordered Repeat number: 1azithromycin 250 mg oral tablet (6 sources)Macrolide AntimicrobialStart: 04-65-6480Tcqecharycae 250 MG as directed Orally 2 tabs po today, then 1 tab daily x 4 more days for 5 Jun, Activedoxycycline hyclate 100 mg oral tablet (2 sources)Tetracycline-class DrugStart: 27-12-6614lptx 1 tablet by mouth twice dailydoxycycline hyclate 100 mg Tab 100 mg = 1 tab(s), Oral, BID, # 20 tab(s), Refills(s) 0, Pharmacy: [facility]/pharmacy #[id number], 160, cm, 10/18/21 4:04:00 EDT, Height/Length Dosing, 107, kg, 10/18/21 4:04:00 EDT, Weight Dosing Start Date: 10/18/21 Status: Orderedketorolac tromethamine 10 mg oral tablet (1 source)Nonsteroidal Anti-inflammatory Drug, Cyclooxygenase InhibitorStart: 10-20-2021 End: 22-18-7656hasy 1 tablet by mouth every six hours as needed for pain ketorolac 10 mg Tab 10 mg = 1 tab(s), Oral, q6hr, PRN for pain, X 5 day(s), # 20 tab(s), Refills(s)0, Pharmacy: [facility]/pharmacy #[id number], 160, cm, 10/20/21 18:21:00 EDT, Height/Length Dosing, 107, kg, 10/20/21 18:21:00 EDT, Weight Dosing Start Date: 10/20/21 Stop Date: 10/25/21 Status: Orderedmeclizine hydrochloride 25 mg oral tablet (1 source)AntiemeticStart: 71-02-5951dwhj 1 tablet by mouth three times daily meclizine 25 mg Tab 25 mg = 1 tab(s), Oral, TID, Refills(s) 0 Start Date: 11/22/21 Status: Ordered Repeat number: 1pindolol 5 mg oral tablet (15 sources)beta-Adrenergic BlockerStart: 09-21-2023 End: 06-81-3194gcai 1 tablet by mouth twice dailyPindolol 5 mg tablet Active 10 MG PO Twice daily September 12, 2024 12:33pm Complies with drug therapyStart: 35-30-9656Gdmnrtfr Active MG PO September 21, 2023 12:00amStart: 11-07-2021 Pindolol 10MG Pindolol( 10MG Oral two times daily ) Active -Hx Entry Oral two times daily for 0 *Pick strength-form from [employer] for eRX* Nov, Active Start: 06-82-7475sgia 2 tablets by mouth twice dailypindolol 5 mg oral tablet 10 mg = 2 tab(s), Oral, BID, Refills(s) 0 Start Date: 05/22/17 Status: Ordered Repeat number: 1Start: 22-68-5887ivec 1 tablet by mouth twice dailypindolol 5 mg oral tablet 5 mg = 1 tab(s), Oral, BID, Refills(s) 0 Start Date: 05/22/17 Status: OrderedtraMADol hydrochloride 50 mg oral tablet (1 source)Opioid AgonistStart: 90-87-5926sbdz 1 tablet by mouth twice daily as [...] mg oral tablet (4 sources)BenzodiazepineStart: 09-12-2024 End: 91-68-7077bsst 1 tablet by mouth twice daily as neededAlprazolam 0.25 mg tablet Discontinued 0.25 MG PO Twice daily as needed September 11, 2024 11:00pm March 09, 2025 11:57amamoxicillin 875 mg / clavulanate 125 mg oral tablet (4 sources)Penicillin-class AntibacterialStart: 09-12-2024 End: 42-31-5413kcgd 1 tablet by mouth twice dailyAmoxicillin-Pot Clavulanate 875-125 mg tablet Discontinued 1 TAB PO Twice daily 14 7 0 September 11, 2024 11:00pm March 09, 2025 11:57amchlorthalidone 25 mg oral tablet (12 sources)Thiazide-like DiureticStart: 09-12-2024 End: 59-65-4647Bbkyfxwxjsiacc 25 mg tablet Discontinued 12.5 MG PO Daily September 12, 2024 12:33pm March 091:57amStart: 09-21-2023 End: 33-15-0419Xksxzbrlsspmrk 25 mg tablet Discontinued MG PO September 20, 2023 11:00pm September 12, 2024 12:35pmStart: 60-23-6672Xxlbvdzpgkdphh Active MG PO September 21, 2023 12:00amChlorthalidone 25 MG 1/2 tablet once a day Active hydrocortisone 10 mg/ml / neomycin 3.5 mg/ml / polymyxin b 95046 unt/ml otic suspension (4 sources)Aminoglycoside Antibacterial, Polymyxin-class Antibacterial, CorticosteroidStart: 09-21-2023 End: 94-75-0549Jroqilnd-Polymyxin-Hc 3.5-10,000-1 mg/mL-unit/mL-% drops,suspension Discontinued 3 DROPS EAR-BOTH Three times daily 10 0 September 20, 2023 11:00pm September 12, 2024 12:33pmlisinopril 20 mg oral tablet (17 sources)Angiotensin Converting Enzyme InhibitorStart: 97-45-3344Eowrbgqzeq Active MG PO September 21, 2023 12:00amStart: 49-57-3960ujlr 1 tablet by mouth once daily in the evening, then take 2 tablets by mouth in the morning, thentake 1 tablet by mouth at bedtimelisinopril 2.5 mg Tab 2.5 mg = 1 tab(s), Oral, qPM, Take 5 mg in the morning and 2.5 mg at bedtime,# 30 tab(s), Refills(s) 0, Pharmacy: [facility]/pharmacy #[id number] Start Date: 11/10/17 Status: OrderedStart: 11-10-2017 take 1 tablet by mouth once dailylisinopril 5 mg Tab 5 mg = 1 tab(s), Oral, Daily, Refills(s) 0 Start Date: 11/10/17 Status: OrderedStart: 07-08-2017 End: 38-72-8856Huxacdwlvr 20 mg tablet Discontinued MG PO September 20, 2023 11:00pm September 12, 2024 12:35pmpredniSONE 20 mg oral tablet (4 sources)Start: 09-21-2023 End: 23-43-4914wfsb 1 tablet by mouth twice dailyPrednisone 20 mg tablet Discontinued 20 MG PO Twice daily 10 5 0 September 20, 2023 11:00pm September 12, 2024 12:34pmsertraline 50 mg oral tablet (15 sources)Serotonin Reuptake InhibitorStart: 12-21-4958Sjlvvhpyjo Active MG PO September 21, 2023 12:00amStart: 11-22-2021 End: 92-01-6017Regwmifhdf 50 mg tablet Discontinued MG PO September 20, 2023 11:00pm September 12, 2024 12:35pmStart: 72-00-6513mdmgbwnlej 100 mg Tab 50 mg = 0.5 tab(s), Oral, Bedtime, Refills(s) 0 Start Date: 11/10/17 Status: OrderedStart: 98-95-5766Eybmdqogjk HCl 50MG Sertraline HCl 50MG, # 0.00, 10/14/2012, No Refill. Active for 0 *Pick strength-form from [employer] for eRX* October, Active Problems Active Problems Problem ClassificationProblemDateDocumented DateEpisodic/ChronicAbdominal pain (9 sources)Left lower quadrant pain; Translations: [Left lower quadrant pain] Onset: 27-84-6787TaypftqhDppnn and chronic tonsillitis (3 sources)Hypertrophy of tonsils; Translations: [Hypertrophy of tonsils]Onset: 78-94-2393OlxzrwrHxcme bronchitis (3 sources)Acute bronchitis; Translations: [Acute bronchitis due to other specified organisms]EpisodicAnxiety disorders (12 sources)Generalized anxiety disorder; Translations: [Anxiety disorder]Onset: 07-08-2017 Resolved: 510234-60-7344HnfjslvYkmkfssbm infection; unspecified site (2 sources)Other specified bacterial agents as the cause of diseases classified elsewhereEpisodicCardiac dysrhythmias (9 sources)Tachycardia, unspecified; Translations: [Palpitations]Onset: 05-22-2017 Resolved: 05-03-9947QpbeyxwjOgsyshje atherosclerosis and other heart disease (2 sources)Chronic ischemic heart disease, unspecified; Translations: [Chronic ischemic heart disease, unspecified]Onset: 15-10-5088ZtwdtqgVhvgffwd of white blood cells (2 sources)Lymphocytosis (symptomatic); Translations: [Lymphocytosis]Onset: 994811-37-9714QkojbymFizmdjgsb hypertension (13 sources)Hypertensive disorder; Translations: [Essential (primary) hypertension]Onset: 02-24-2017 Resolved: 762234-01-7544BxhcypxEjucj and electrolyte disorders (1 source)Hypokalemia; Translations: [Hypokalemia]Onset: 10-43-8913Lhdpsvuk Genitourinary symptoms and ill-defined conditions (7 sources)Dysuria; Translations: [Larry hematuria]Onset: 29-83-6329Mvjdndau Headache; including migraine (4 sources)Headache; including migraine; Translations: [HEADACHE UNSPECIFIED] Onset: 98-94-3142Rmefibpysjgk diseases of female pelvic organs (4 sources)Chronic salpingitis; Translations: [Chronic salpingitis]Onset: 29-26-3060WzmmztdBsejiabbbgmi diseases of female pelvic organs (3 sources)Acute vaginitis; Translations: [Acute vaginitis]EpisodicMood disorders (1 source)Mood fiqokzta76-54-7639HcfjirrAmnafdoiwdr chest pain (6 sources)Chest pain; Translations: [Chest pain, unspecified]Onset: 07-28-2018 EpisodicOther aftercare (1 source)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; Translations: [OTH USP CURRENT DRUG THERAPY]Onset: 72-59-3900StfkniadSztlf aftercare (3 sources)History and physical examination, follow-up; [...] right leg]Episodic Other endocrine disorders (1 source)Pituitary qgox65-77-7722CengqzqBqads female genital disorders (1 source)Abnormal uterine and vaginal bleeding, unspecified; Translations: [ABNORMAL UTERINE VAGINAL BLEED UNS]Onset: 25-30-8712HwctltrQqzyd female genital disorders (3 sources)Abnormal uterine bleeding; Translations: [Abnormal uterine and vaginal bleeding, unspecified]ChronicOther female genital disorders (1 source)History of gynecological bvcjwyji03-63-9760DcmbgrywPhbxi nervous system disorders (7 sources)Carpal tunnel syndrome of right wrist; Translations: [Carpal tunnel syndrome, right upper limb]33-08-2828SueounuUerqq non-traumatic joint disorders (3 sources)Ankle instability; Translations: [Other instability, left ankle] EpisodicOther non-traumatic joint disorders (3 sources)Arthralgia of the ankle and/or foot; Translations: [Pain in left ankle and joints of left foot]EpisodicOther nutritional; endocrine; and metabolic disorders (3 sources)Morbid obesity; Translations: [Morbid (severe) obesity due to excess calories]Onset: 41-74-9949GyzjojxJlijs nutritional; endocrine; and metabolic disorders (3 sources)Body mass index 40+ - severely obese; Translations: [Body mass index (BMI) 40.0-44.9, adult]Onset: 15-55-9145BiqsngzPfrdv nutritional; endocrine; and metabolic disorders (1 source)Zyatlhi09-00-5033YispruaGwakn screening for suspected conditions (not mental disorders or infectious disease) (7 sources)Encounter for screening for malignant neoplasm of cervix; Translations: [Encounter for screening mammogram for malignant neoplasm of breast]Onset: 98-14-9181OowqupvdFieaa skin disorders (7 sources)Mass of wrist; Translations: [Localized swelling, mass and lump, right upper limb]48-39-1038IwbffiovIzvhh skin disorders (1 source)Localized swelling, mass and lump, right upper limb; Translations: [Localized swelling, mass and lump, right upper limb]Onset: 72-14-3496Ifumdfcw Other upper respiratory infections (5 sources)Bacterial sinusitis; Translations: [Chronic sinusitis, unspecified] ChronicOther upper respiratory infections (13 sources)Acute sinusitis, unspecified; Translations: [Acute upper respiratory infection]Onset: 13-42-8923AzrvgzavKofnjt media and related conditions (8 sources)Acute secretory otitis media; Translations: [Other acute nonsuppurative otitis media, right ear]Onset: 805525-33-9176Buwayfzu Ovarian cyst (3 sources)Cyst of left ovary; Translations: [Unspecified ovarian cyst, left side]Onset: 55-34-3685AvlyokxuScqcmoyw codes; unclassified (3 sources)Postprocedural state finding; Translations: [Other specified postprocedural states]EpisodicSprains and strains (6 sources)Strain of left Achilles tendon; Translations: [Strain of left Achilles tendon, sequela]EpisodicUnclassified (1 source)Unknown / UNK(Unknown)Onset: 41-09-8831Krkkvekqigcc (3 sources)CONTACT W/AND (SUSP) EXPOS COVID-19; Translations: [CONTACT W/AND (SUSP) EXPOS COVID-19]Onset: 01-22-2022 Past or Other Problems Problem ClassificationProblemDateDocumented DateEpisodic/ChronicConditions associated with dizziness or vertigo (3 sources)Dizziness and giddiness; Translations: [Dizziness and giddiness] Onset: 57-81-9376ZncunjwqUnarlepflkvqt and screening for infectious disease (4 sources)Encounter for screening for human papillomavirus (HPV); Translations: [Vaccination given]Onset: 03-16-2018 Resolved: 74-23-9210ZithdhzePkfin and unspecified benign neoplasm (3 sources)Hemangioma of skin and subcutaneous tissue; Translations: [Hemangioma of skin and subcutaneous tissue]Onset: 60-99-2005VfvyxjcvJzgeb endocrine disorders (3 sources)Disorder of pituitary gland; Translations: [Other disorders of pituitary gland]Onset: 10-31-2017 Resolved: 19-33-1170TqxascfJgrxh lower respiratory disease (3 sources)Cough; Translations: [Cough, unspecified]Onset: 07-24-2017 Resolved: 23-93-1941FnaeyekrHjmci nutritional; endocrine; and metabolic disorders (3 sources)Abnormal weight gain; Translations: [Abnormal weight gain]Onset: 24-24-6433RrerczgiCpvah upper respiratory disease (3 sources)Pain in throat; Translations: [Pain in throat]Onset: 11-03-2018 EpisodicOther upper respiratory disease (3 sources)Bleeding from nose; Translations: [Epistaxis]Onset: 09-29-2017 Resolved: 28-04-9078BajgsoauIvsqltdw codes; unclassified (1 source)Family history of malignant neoplasm of breast; Translations: [FAMILY HX MALIG NEOPLASM OF BREAST]Onset: 34-31-5889YxkpdydgLdzljtya codes; unclassified (1 source)Family history of malignant neoplasm of trachea, bronchus and lung; Translations: [FAM HX MALIG NEOPLSM TRACH BRON LNG]Onset: 02-28-5884Yswjnnck Residual codes; unclassified (1 source)Family history of malignant neoplasm of other organs or systems; Translations: [FAM HX MALIG NEOPLASM OTH ORGN/SYS]Onset: 54-79-9690Qsejgfhn Residual codes; unclassified (1 source)Acquired absence of other specified parts of digestive tract; Translations: [ACQ ABSENCE OTH PART DIGESTV TRACT]Onset: 81-67-1285Ejnclqtk Spondylosis; intervertebral disc disorders; other back problems (4 sources)Pain in thoracic spine; Translations: [PAIN IN THORACIC SPINE]Onset: 21-63-6030QmtilectMwaxfuc (5 sources)Syncope and collapse; Translations: [Syncope and collapse]Onset: 51-25-2044BcrgdfftQaxblssdltlv (1 source)CONTACT W/AND (SUSP) EXPOS COVID-19; Translations: [CONTACT W/AND (SUSP) EXPOS COVID-19]Onset: 52-49-1451Fxdrogidvyht (3 sources)Exposure to acute respiratory syndrome coronavirus 2; Translations: [Contact with and (suspected) exposure to COVID-19]Urinary tract infections (3 sources)Urinary tract infectious disease; Translations: [Urinary tract infection, site not specified]Onset: 80-73-2968WxfvemuaCacdz infection (3 sources)Coxsackie virus disease; Translations: [Coxsackievirus as the cause of diseases classified elsewhere]Onset: 87-86-1003FahglerjGpszu infection (2 sources)COVID-19 Results Test NameValueInterpretationReference RangeFacilityX-ray reportOrdered By: Renny Long on 06-09-5959Uuesi reportOHIOHEALTH [facility]BY [facility] [address] [place] [address] XRay Report Signed Patient: Gladis Michael MR#: [id number] : 1975 Acct:[id number] Age/Sex: 49 / F ADM Date: 5 Loc: [facility] Room: Type: REG CLI Attending Dr: Luke [...] Jr., D.OMary 03/09/2025 4:19 PM Dictation Location: [place] [address] Transcribed By: [facility] 03/09/251618 Dictated By: Renny Long Jr, DO 03/09/251618 Signed By: 03/09/25 1619 [facility] min 3V*on 37-23-9604BD wrist RT min 3V*[facility] [address] [place] [address] XRay Report Signed Patient: Gladis Michael MR#: [id number] : 1975 Acct:[id number] Age/Sex: 49 / F ADM Date: 03/09/25 Loc: [facility] Room: Type: [facility] CLI Attending Dr: Luke Vora DO Copies to: Luke Vroa DO Ordering Provider: Luke Vora DO Date [...] Jr., D.O. 03/09/2025 4:19 PM Dictation Location: [place] [address] Transcribed By: [facility] 03/09/251618 Dictated By: Renny Long Jr, DO 03/09/251618 Signed By: 03/09/25 1619[facility] Physician Jliom53jw 39-78-184229Sjzl Snider, CNP reviewed patient's coronary CTA. I spoke with patient today and informed her of normal result. Tickler entered for 1 year follow up. Patient verbalized understanding.[facility] HamiltonCT[facility] CORONARY W IV CONTRAST W OR WO FFRCTon 00-09-0608RAL HEART CORONARY W IV CONTRAST W OR [...] Waldemar Duarte (more content not included)...Invalid Interpretation CodeUnKettering Health Dayton36on 23-95-090379Zqoewvuin stress test result from 10/18/2024: Good morning [...] with patient and made her aware. Order placed.NormalVan Wert County HospitalOrders Onlyon 33-03-3876Vfcybv [id number] Gladis Michael 1975 F Date Provider Department Center 10/22/2024 [facility] None Family History Problem Relation Age of Onset No Known Problems Mother Cancer Father Cancer Brother Family Status - Relation Status Age at Mother Alive Father Sister Alive Brother DeceasedNormalUniversUC HealthOffice Visiton 93-86-8947Uvuuij-up [id number] Gladis Michael 1975 F Date Provider Department Center 10/06/2024 [facility] Family History Problem Relation Age of Onset No Known Problems Mother Cancer Father Cancer Brother Family Status - Relation Status Age at Mother Alive Father Sister Alive Brother Level of Service:75487 [place] OFFICE/OUTPATIENT ESTABLISHED LOW MDM 20 [facility]XR Chest Single Viewon 69-22-9163FG Chest Single ViewExam Date/Time: 10/01/2024 20:31 EDT [...] Blayne Romero DO Transcribed by: RAMANDEEP Technologist: [facility] HOSPITALJulisaestebanMary Rutan HospitalBMPon 52-60-4214Xvrpg gap [Moles/Vol]11 mmol/LNormal6-16[facility] Comment on above:Performed By: #### [id number] #### [facility] [address], [place] [address]Kvcions [Mass/Vol]9.7 mg/dLNormal8.9-11.1FSuburban Community Hospital & Brentwood HospitalComment on above:Performed By: #### [id number] #### [facility] [address], [place] [address]Wyxcnbmo [Moles/Vol]101 mmol/RVkygwo768-153InxpmyMary Rutan HospitalComment on above:Performed By: #### [id number] #### [facility] [address], [place] [address]QV1 [Moles/Vol]28 mmol/ZXndagf48-43UqhuofMary Rutan Hospital Comment on above:Performed By: #### [id number] #### [facility] [address], [place] [address]Lfdczwcwlx [Mass/Vol]0.6 mg/dLNormal0.5-1.3FSuburban Community Hospital & Brentwood HospitalComment on above:Performed By: #### [id number] #### [facility] [address] [place], [place] [address]Dguauwx [Mass/Vol]112 mg/eWYbadlv70-557GbvohpMary Rutan HospitalComment on above:Performed By: #### [id number] #### [facility] [address], [place] [address]Bkczjexks [Moles/Vol]3.2 mmol/LLow3.5-5.3FSuburban Community Hospital & Brentwood HospitalComment on above:Performed By: #### [id number] #### [facility] [address], [place] [address]Hlhqtq [Moles/Vol]137 mmol/XHdwfha059-367NszjejMary Rutan HospitalComment on above:Performed By: #### [id number] #### [facility] [address], [place] [address]Uubg nitrogen [Mass/Vol]17 mg/dLNormal5-21Mary Rutan HospitalComment on above:Performed By: #### [id number] #### [facility] [address], [place] [address]Jbwx nitrogen/Creatinine [Mass ratio]28 No KxolbMgvr98-87NvbsghMary Rutan HospitalComment on above:Performed By: #### [id number] #### [facility] [address] [place], [place] [address]VCZ w/ Auto Diffon 63-18-2708Boagrbhwb/100 WBC (Bld)1.4 %Normal 0.0-2.0Mary Rutan HospitalComment on above:Performed By: #### [id number] #### [facility] [address] [place], [place] [address]Ysydgweip/Leukocytes Auto (Bld) [Pure # fraction]0.2 E9/LNormal 0.0-0.2FSuburban Community Hospital & Brentwood HospitalComment on above:Performed By: #### [id number] #### [facility] [address] [place], [place] [address]Qiujeuekocd (Bld) [#/Vol]0.2 E9/LNormal0.0-0.5FSuburban Community Hospital & Brentwood HospitalComment on above:Performed By: #### [id number] #### [facility] [address] [place], [place] [address]Jnzrddrditu/100 WBC (Bld)1.6 %Normal0.0-8.0Mary Rutan HospitalComment on above:Performed By: #### [id number] #### [facility] [address] [place], [place] [address]Zockkhwvpnh distribution width (RBC) [Ratio]13.4 %Normal 10.9-14.2FSuburban Community Hospital & Brentwood HospitalComment on above:Performed By: #### [id number] #### [facility] [address], [place] [address]Auuvurzerx (Bld) [Volume fraction]38.1 %Xsawrz05.0-46.0Mary [facility] HospitalComment on above:Performed By: #### [id number] #### [facility] [address] [place] [address]Zuejxeqozi (Bld) [Mass/Vol]13.2 g/xGBzxvuv63.0-16.0[facility] HospitalComment on above:Performed By: #### [id number] #### [facility] [address] [place] [address]Txqykyxepyl (Bld) [#/Vol]3.9 E9/LNormal1.0-4.0[facility] HospitalComment on above:Performed By: #### [id number] #### [facility] [address] [place] [address]Eedklmgcllr/100 WBC (Bld)30.4 %Gkbccb83.0-50.0[facility] HospitalComment on above:Performed By: #### [id number] #### [facility] [address] [place], [place] [address]LUU (RBC) [Entitic mass]28.1 dqBwnryq48.0-34.0[facility] HospitalComment on above:Performed By: #### [id number] #### [facility] [address] [place] [address]PAGP (RBC) [Mass/Vol]34.5 g/dXAovomn82.4-36.0[facility] HospitalComment on above:Performed By: #### [id number] #### [facility] [address] [place] [address]BHJ (RBC) [Entitic vol]81.5 hMKnlfpt62.0-100.0[facility] HospitalComment on above:Performed By: #### [id number] #### [facility] [address] [place] [address]Gxorlcsdj (Bld) [#/Vol]0.7 E9/LNormal0.2-1.0[facility] Rutan HospitalComment on above:Performed By: #### [id number] #### [facility] [address] [place] [address] [id number] (Bld) [#/Vol]7.9 E9/LHigh2.0-7.5FSuburban Community Hospital & Brentwood HospitalComment on above:Performed By: #### [id number] #### [facility] [address] [place] [address] 89058Gezexsxdvta/100 WBC (Bld)60.9 %Cpdoet53.0-75.0[facility] Rutan HospitalComment on above:Performed By: #### [id number] #### [facility] [address] [place] [address] 46206Soaafvka mean volume (Bld) [Entitic vol]8.4 fLNormal6.4-10.8 [facility] HospitalComment on above:Performed By: #### [id number] #### [facility] [address] [place] [address] 98140Ovonvxapg (Bld) [#/Vol]443.0 E9/RIkhmvh120.0-500.0[facility] Rutan HospitalComment on above:Performed By: #### [id number] #### [facility] [address] [place] [address] 44243QNY (Bld) [#/Vol]4.7 E12/LNormal4.3-5.9[facility] Rutan HospitalComment on above:Performed By: #### [id number] #### [facility] [address] [place], [place] [address]IQZ corrected for nucl RBC Auto (Bld) [#/Vol]13.0 E9/LHigh 4.0-11.0[facility] Hospitaler [facility] BaltimoreComment on above:Performed By: #### [id number] #### [facility] [address] [place], [place] [address]NOQNYOOZGKkohbkr By: SYSTEM SYSTEM on 66-73-8992Moftgfkn HS2.80 pg/mLLow10.10 - 27.10 pg/mLRemisol ChemComment on [...] [Mass/Vol]9.7 mg/dLNormal8.9 - 11.1 mg/dLRemisol ChemChloride [Moles/Vol]101 mmol/GIhnmst753 - 111 mmol/LRemisol ChemCO2 [Moles/Vol]28 mmol/YPxabxr76 - 31 mmol/LRemisol ChemCreatinine [Mass/Vol]0.6 mg/dLNormal0.5 - 1.3 mg/dLRemisol MygysWVR688 mL/min/1.73 l6Piushr>=59mL/min/1.73 s6Sejhdeg ChemGlucose [Mass/Vol] 112 mg/iTZyfrsu96 - 199 mg/dLRemisol ChemMagnesium [Mass/Vol]2.0 mg/dLNormal1.3 - 2.4 mg/dLRemisol ChemPotassium [Moles/Vol]3.2 mmol/LLow3.5 - 5.3 mmol/LRemisol ChemSodium [Moles/Vol]137 mmol/SPxexox255 - 145 mmol/LRemisol ChemTroponin HS 3.20 pg/mLLow10.10 - 27.10 pg/mLRemisol ChemComment on above:Interpretive Data: The 95% CI (Confidence Interval) PPV (Positive Predictive Value) for myocardial infarction in females is 38 pg/mL, in males 51 pg/mL. The results should be used in conjunction withclinical conditions of myocardial infarction. (Access High Sensitivity Troponin I Instructions For Use, Marion Lucas, January 2018)TSH Qn1.60 m[IU]/LNormal0.34 - 5.60 mcIU/mLRemisol ChemUrea nitrogen [Mass/Vol]17 mg/dLNormal5 - 21 mg/dLRemisol ChemUrea nitrogen/Creatinine [Mass ratio]28 mg/haFane05 - 20Remisol ChemCOAGULATIONOrdered By: Lisbet Moon on 20-33-2135pVJS Coag (PPP) [Time]33.6 oOpftrs55.1 - 36.5 second(s)[facility] Auto Coag Comment on above:Interpretive Data: Parameter [...] the same coagulation reagent and instrumentation as [facility]. Currently there are no coagulation studies available worldwide for children to 14 days, andno normal ranges. Heparin therapeutic range (represented by Anti-Factor Xa activity of 0.2 - 0.4 U/mL) corresponds to PTT of 56.6 - 109.0 sec.INR Coag (PPP) [Relative time]1.06 {INR}Invalid Interpretation CodeSOUTHWEST[facility] Auto CoagComment on above:Interpretive Data: INR results are specifically intended to assess patients stabilized on long-term Anticoagulation therapy suggested INR s Less Intensive Anticoagulation 2.0 3.0 Conventional Range 3.0 4.5PT Coag (PPP) [Time]11.9 sNormal9.4 - 12.5 second(s) [facility] Auto CoagComment on above:Interpretive Data: 15 days [...] the same coagulation reagent and instrumentation as [facility]. Currently there are no coagulation studies available worldwide for children to 14 days, andno normal ranges.ED Clinical Summaryon [id number] Clinical SummaryED Clinical Summary [place] [id number] ED Clinical Summary Person Information Name: GLADIS MICHAEL [facility] Age: 49 Years : 1975 Sex: Female Language: Japanese PCP: KAILYN WAITE CNP Marital Status: Visit [...] 10/01/2024 22:11:57 10/01/2024 22:11:57 10/01/2024 22:11:57 ADDRESS: [address] [place] [phone] PHYS DOC NOTES: MEDICAL INFORMATION: Prescriptions Given: [...] every day. PATIENT EDUCATION INFORMATION: Instructions: Palpitations, Iley-vr-Jwhh; Nonspecific Chest Pain, Adult, Ftek-ms-Rumv; Hypokalemia Follow up: With: Address: When: KAILYN MARIANN [address] [facility] [place] [address] [phone] Business (1) In 3 days 10/04/2024 Comments: Please follow-up with your primary care doctor for further evaluation management. Return to the ED for any new or worsening symptoms or if you have any concerns. DIAGNOSIS: Chest pain; Hypokalemia; PalpitationsNormalFisher Dat Medical CenterED Note-Physicianon [id number] Note-PhysicianED Note-Physician Basic Information Time Seen: Jeffy [...] and Complexity of Problems Differential Diagnosis: [] [facility] Data External documents reviewed: [] My [...] Oxygen Saturation Oxygen The (more content not included)...[facility] Comment on above:Result Comment: Electronically Signed By: Jeffy Das DO\.br\Date and Time Signed: 10/01/24 21:59 EDTED Patient Summaryon [id number] Patient SummaryED Patient Summary [place] [id number] Patient Discharge Instructions Person Information Name: GLADIS MICHAEL Age: 49 Years Arrival Date: 10/01/2024 19:54:47 Discharge Diagnosis: Chest pain; Hypokalemia; Palpitations Primary Care Physician: KAILYN WAITE CNP Provider Information Primary Provider: Jeffy Das DO [employer] Kitchen Aide:None The exam and treatment you received in the Emergency Department were for an urgent problem and are not intended as complete care. It is important that you follow up with a doctor, nurse practitioner,or physician???s personal banking assistant for ongoing care. If your symptoms [...] When: KAILYN WAITE [address] [place] [address] [phone] Business (1) In 3 days 10/04/2024 Comments: Please follow-up with your primary care doctor for further evaluation management. Return to the ED for any new or worsening symptoms or if you have any concerns. In the event that this physician does not participate in your insurance network, please consult with your insurance company to find a nearby participating provider. Patient Education Materials: Palpitations, Wrji-dn-Hkmg; Nonspecific Chest Pain, Adult, Arzp-zq-Ctau; Hypokalemia A MESSAGE TO ALL PATIENTS REGARDING OPIOIDS PRESCRIPTION OPIOIDS: WHAT YOU NEED TO KNOW Prescription opioids can be used to help relieve cxrnvjaw-ku-rcsdvi pain and are often prescribed following a [...] the Food and D(more content not included)... [facility] HospitalHEMATOLOGYOrdered By: SYSTEM SYSTEM on 62-92-7474Apxksdbbz/100 WBC (Bld)1.4 %Normal0.0 - 2.0 %Remisol Heme Basophils/Leukocytes Auto (Bld) [Pure # fraction]0.2 E9/LNormal0.0 - 0.2 E9/L Remisol HemeEosinophils (Bld) [#/Vol]0.2 E9/LNormal0.0 - 0.5 E9/LRemisol Heme Eosinophils/100 WBC (Bld)1.6 %Normal0.0 - 8.0 %Remisol HemeErythrocyte distribution width (RBC) [Ratio]13.4 %Wcgodk41.9 - 14.2 %Remisol HemeHematocrit (Bld) [Volume fraction]38.1 %Slqfir19.0 - 46.0 %Remisol HemeHemoglobin (Bld) [Mass/Vol]13.2 g/mTGqtkxt81.0 - 16.0 gm/dLRemisol HemeLymphocytes (Bld) [#/Vol] 3.9 E9/LNormal1.0 - 4.0 E9/LRemisol HemeLymphocytes/100 WBC (Bld)30.4 %Normal 14.0 - 50.0 %Remisol HemeMCH (RBC) [Entitic mass]28.1 iuRvijnm21.0 - 34.0 pg Remisol HemeMCHC (RBC) [Mass/Vol]34.5 g/xWJlyzqr54.4 - 36.0 gm/dLRemisol HemeMCV (RBC) [Entitic vol]81.5 qXEqpacl86.0 - 100.0 fLRemisol HemeMonocytes (Bld) [#/Vol]0.7 E9/LNormal0.2 - 1.0 E9/LRemisol HemeMonocytes/100 WBC (Bld)5.7 % Normal4.0 - 14.0 %Remisol HemeNeutrophils (Bld) [#/Vol]7.9 E9/LHigh2.0 - 7.5 E9/LRemisol HemeNeutrophils/100 WBC (Bld)60.9 %Wjbces72.0 - 75.0 %Remisol Heme Platelet mean volume (Bld) [Entitic vol]8.4 fLNormal6.4 - 10.8 fLRemisol Heme Platelets (Bld) [#/Vol]443.0 E9/PDdrbin635.0 - 500.0 E9/LRemisol HemeRBC (Bld) [#/Vol]4.7 E12/LNormal4.3 - 5.9 E12/LRemisol HemeWBC corrected for nucl RBC Auto (Bld) [#/Vol]13.0 E9/LHigh4.0 - 11.0 E9/LRemisol HemeMagnesiumon 10-01-2024 Magnesium [Mass/Vol]2.0 mg/dLNormal1.3-2.4Fisher [facility] Hospital [facility] BaltimoreComment on above:Performed By: #### [id number] #### [facility] [address] [place], [place] [address]KD & PTTon 44-40-8957wIZA Coag (PPP) [Time]33.6 second(s)Normal 25.1-36.5FSuburban Community Hospital & Brentwood HospitalComment on above:Result Comment: Parameter 15 days [...] the same coagulation reagent and instrumentation as [facility]. Currently there are no coagulation studies available worldwide for children to 14 days, andno normal ranges. Heparin therapeutic range (represented by Anti-Factor Xa activity of 0.2 - 0.4 U/mL) corresponds to PTT of 56.6 - 109.0 sec.Performed By: #### [id number] #### [facility] [address] [place], [place] [address]NVC Coag (PPP) [Relative time]1.06 {INR}Invalid Interpretation CodeMary Rutan HospitalComment on above:Result Comment: INR results are specifically intended to assess patients stabilized on long-term Anticoagulation therapy suggested INR???s ???Less Intensive Anticoagulation??? 2.0 ??? 3.0 Conventional Range 3.0 ??? 4.5Performed By: #### [id number] #### [facility] [address] [place], [place] [address]MI Coag (PPP) [Time]11.9 second(s)Normal9.4-12.5FSuburban Community Hospital & Brentwood HospitalComment on above:Result Comment: 15 days - [...] the same coagulation reagent and instrumentation as [facility]. Currently there are no coagulation studies available worldwide for children to 14 days, andno normal ranges.Performed By: #### [id number] #### [facility] [address] [place], [place] [address]AFC With T4fr Reflexon [id number] Qn1.60 m[IU]/LNormal 0.34-5.60[facility] HospitalComment on above:Performed By: #### [id number] #### [facility] [address] [place], [place] [address]Arcoqnan 0 Hr.on 63-92-7933Btqrmcto HS3.20 pg/mLLow10.10-27.10 [facility] HospitalComment on above:Result Comment: The 95% CI (Confidence Interval) PPV (Positive Predictive Value) for myocardial infarction in females is 38 pg/mL, in males 51 pg/mL. The results should be used in conjunction with clinical conditions of myocardial infarction. (Access High Sensitivity Troponin I Instructions For Use, Marion Lucas, January 2018)Performed By: #### [id number] #### [facility] [address] [place], [place] [address]Osuvtyvc 1 Hr.on 54-83-5738Jvseinsv HS2.80 pg/mLLow10.10-27.10 [facility]an HospitalComment on above:Order Comment: 2111Result Comment: The 95% CI (Confidence Interval) PPV (Positive Predictive Value) for myocardial infarction in females is 38 pg/mL, in males 51 pg/mL. The results should be used in conjunction with clinical conditions of myocardial infarction. (Access High Sensitivity Troponin I Instructions For Use, Marion Lucas, January 2018)Performed By: #### [id number] #### [facility] [address] [place], [place] [address]qNFUnq 60-05-6572oTGZ319 mL/min/1.73 v7Tqrfcj>=59Fisher [facility] Hospital Of BaltimoreComment on above:Performed By: #### [id number] #### [facility] [address] [place], [place] [address]Ckvspv Visiton 19-38-7239Htzrzx-up [id number] Gladis Michael 1975 F Date Provider Department Center 04/08/2024 [facility]8-[facility] Family History Problem Relation Age of Onset No Known Problems Mother No Known Problems Father Family Status - Relation Status Age at Mother Father Level of Service:[address] [place] OFFICE/OUTPATIENT ESTABLISHED MOD MDM 30 [facility]O DIFFon [id number] #0.1 103/ul Normal0.0-0.1[facility] Health AdministrationComment on above:Performed By: #### UAMIC #### [facility] [address] [place] [address] Dr. Kristen Cohensophils/100 WBC (Bld)0.9 %Normal0.2-2.0[facility] Comment on above:Performed By: #### UAMIC #### [facility] [address] [place] [address] Dr. Kristen Jimenez #0.1 103/ulNormal0.0-0.7The [facility] Medical CenterComment on above: Performed By: #### UAMIC #### [facility] [address] [place] [address] Dr. Kristen Velasquezosinophils/100 WBC (Bld)1.1 %Normal0.9-7.0[facility] Comment on above:Performed By: #### UAMIC #### [facility] [address] [place] [address] Dr. Yilan ChangErythrocyte distribution width (RBC) [Ratio]13.2 %Tcgcsa11.0-15.0 The [facility] Medical CenterComment on above:Performed By: #### UAMIC #### [facility] [address] [place] [address] Dr. Kristen GambinoHematocrit (Bld) [Volume fraction]41.2 %Qmmpoq27.0-48.0The [facility] Medical CenterComment on above:Performed By: #### UAMIC #### [facility] [address] [place] [address] Dr. Kristen GambinoHemoglobin (Bld) [Mass/Vol]13.8 g/dJAdpupg86.0-16.0The [facility] CenterComment on above:Performed By: #### UAMIC #### [facility] [address] [place] [address] Dr. Kristen GambinoIG #0.03 10e3/ulNormal0.00-0.03The [facility] Medical CenterComment on above:Performed By: #### UAMIC #### [facility] [address] [place] [address] Dr. Kristen Weaver %0.2 %Normal0.0-0.5The [facility] CenterCombrighton hospital on above: Performed By: #### UAMIC #### [facility] [address] [place] [address] Dr. Kristen RileyH #3.5 103/ulNormal1.2-3.8The [facility] Medical CenterComment on above:Performed By: #### UAMIC #### [facility] [address] [place] [address] Dr. Kristen Montielmphocytes/100 WBC (Bld)28.4 %Rqixwa47.5-60.0The [facility] Medical CenterComment on above:Performed By: #### UAMIC #### [facility] [address] [place] [address] Dr. Kristen GambinoMANUAL DIFF REQNONormalThe [facility] Medical CenterComment on above: Performed By: #### UAMIC #### [facility] [address] [place] [address] Dr. Kristen Dominguez (RBC) [Entitic mass]27.8 ecNeglrr03.7-34.0The [facility] CenterComment on above:Performed By: #### UAMIC #### [facility] [address] [place] [address] Dr. Kristen Dominguez (RBC) [Mass/Vol]33.5 g/oDElxssf92.9-35.2The [facility] CenterComment on above:Performed By: #### UAMIC #### [facility] [address] [place] [address] Dr. Kristen DominguezV (RBC) [Entitic vol]82.9 vCHalmet73.0-99.0The [facility] CenterComment on above:Performed By: #### UAMIC #### [facility] [address] [place] [address] Dr. Kristen Powell #0.9 103/ulCritically high0.3-0.8The [facility] Comment on above:Performed By: #### UAMIC #### [facility] [address] [place] [address] Dr. Kristen Bagleyocytes/100 WBC (Bld)7.0 %Normal1.7-12.0The [facility] Comment on above:Performed By: #### UAMIC #### [facility] [address] [place] [address] Dr. Kristen Kim #7.8 103/ulCritically high1.4-6.5The [facility] Comment on above:Performed By: #### UAMIC #### [facility] [address] [place] [address] Dr. Kristen Da Silvautrophils/100 WBC (Bld)62.4 %Atjwuf94.0-75.0The [facility] Medical CenterComment on above:Performed By: #### UAMIC #### [facility] [address] [place] [address] Dr. Kristen Arriola mean volume (Bld) [Entitic vol]9.6 fLNormal9.5-13.5The [facility] Medical CenterComment on above:Performed By: #### UAMIC #### [facility] [address] [place] [address] [address] Kristen GambinoPLT409 103/ftMihphd711-060Rkr [facility] CenterComment on above: Performed By: #### UAMIC #### [facility] [address] [place] [address] [address] Kristen GambinoRBC4.97 106/ulNormal4.20-5.40The [facility] Medical CenterComment on above:Performed By: #### UAMIC #### [facility] [address] [place] [address] [address] Kristen GambinoWBC12.5 103/ulCritically high4.0-11.0The [facility] Medical CenterComment on above:Performed By: #### UAMIC #### [facility] [address] [place] [address] Dr. Kristen GambinoCT HEAD WO CONon [id number] HEAD WO CONEXAMINATION: CT HEAD WO CON, [...] Electronically authenticated by: TERRI LANDAVERDE Date: 2022-09-22 23:00Western Reserve HospitalPROF 14(COMP METB)on 75-90-9786Isgxwft [Mass/Vol]3.5 g/dLNormal 3.4-5.0The [facility] CenterComment on above:Performed By: #### CVDTBH #### [facility] [address] [place] [address] Dr. Kristen GambinoAlbumin/Globulin [Mass ratio]0.8 {ratio}NormalThe [facility] Medical CenterComment on above:Performed By: #### CVDTBH #### [facility] [address] [place] [address] Dr. Kristen Madrid [Catalytic activity/Vol]67 U/FOisufl91-868Vcg [facility] CenterComment on above:Performed By: #### CVDTBH #### [facility] [address] [place] [address] Dr. Kristen June [Catalytic activity/Vol]29 U/ESgctuu66-78Hif [facility] CenterComment on above:Performed By: #### CVDTBH #### [facility] [address] [place] [address] Dr. Kristen Rojo gap [Moles/Vol]12.0 mmol/LNormalThe [facility] Comment on above:Performed By: #### CVDTBH #### [facility] [address] [place] [address] Dr. Kristen GambinoAST [Catalytic activity/Vol]17 U/APljoqc38-06Xry [facility] CenterComment on above:Performed By: #### CVDTBH #### [facility] [address] [place] [address] Dr. Kristen GambinoBilirubin [Mass/Vol]0.4 mg/dLNormal0.2-1.0The [facility] Comment on above:Performed By: #### CVDTBH #### [facility] [address] [place] [address] Dr. Kristen GambinoCalcium [Mass/Vol]9.5 mg/dLNormal8.5-10.1The [facility] Comment on above:Performed By: #### CVDTBH #### [facility] [address] [place] [address] [address] Kristen GambinoChloride [Moles/Vol]101 mmol/PPmdylm33-787Kgn [facility] Comment on above:Performed By: #### CVDTBH #### [facility] [address] [place] [address] [address] Kristen GambinoCO2 [Moles/Vol]28.9 mmol/BFfrsek77.0-32.0The [facility] Comment on above:Performed By: #### CVDTBH #### [facility] [address] [place] [address] Dr. Kristen GambinoCreatinine [Mass/Vol]0.60 mg/dLNormal0.55-1.02The [facility] Medical CenterComment on above:Performed By: #### CVDTBH #### [facility] [address] [place] [address] Dr. Kristen VelasquezGFR-AF TONGAN>60Normal>=60The [facility] Medical CenterComment on above:Performed By: #### CVDTBH #### [facility] [address] [place] [address] Dr. Kristen VelasquezGFR-NON AF TONGAN>60Normal>=60The [facility] CenterComment on above:Performed By: #### CVDTBH #### [facility] [address] [place] [address] Dr. Kristen GambinoGlobulin (S) [Mass/Vol]4.5 g/dLNormalThe [facility] CenterComment on above:Performed By: #### CVDTBH #### [facility] [address] [place] [address] [address] Kristen GambinoGlucose [Mass/Vol]108 mg/dLCritically ggbj99-794Doj [facility] CenterComment on above:Performed By: #### CVDTBH #### [facility] [address] [place] [address] Dr. Kristen GambinoPotassium [Moles/Vol]3.9 mmol/LNormal3.5-5.1The [facility] Comment on above:Performed By: #### CVDTBH #### [facility] [address] [place] [address] Dr. Kristen GambinoProtein [Mass/Vol]8.0 g/dLNormal6.4-8.2The [facility] Comment on above:Performed By: #### CVDTBH #### [facility] [address] [place] [address] Dr. Kristen GambinoSodium [Moles/Vol]138 mmol/OEsqbeh183-738Twj [facility] Comment on above:Performed By: #### CVDTBH #### [facility] [address] [place] [address] Dr. Kristen GambinoUrea nitrogen [Mass/Vol]10.0 mg/dLNormal7.0-18.0The [facility] CenterComment on above:Performed By: #### CVDTBH #### [facility] [address] [place] [address] Dr. Kristen Watkins nitrogen/Creatinine [Mass ratio]16.7 mg/mgNoMary Rutan HospitalComment on above:Performed By: #### CVDTBH #### [facility] [address] [place] [address] Dr. Kristen Louis ACOG PANEL 2: 30 to 65on 08-15-2022..NormalThe [facility] Medical CenterComment on above:Result Comment: Performed at: WBPerformed By: #### [id number] #### [facility] [address] [place] [address] Dr. Kristen Lewis Gdln ACOG Eqafhzr78-87QynlcvGkkMary Rutan HospitalComment on above:Performed By: #### [id number] #### [facility] [address] [place] [address] Dr. Kristen GambinoDIAGNOSIS:CommentWestern Reserve HospitalComment on above: Result Comment: NEGATIVE FOR INTRAEPITHELIAL LESION OR MALIGNANCY. Performed at: WBPerformed By: #### [id number] #### [facility] [address] [place] [address] Dr. Kristen Zacarias AptimaNegativeNormalNegativeTriHealth Bethesda Butler Hospital on above:Result Comment: This nucleic acid amplification test detects fourteen high-risk HPV types (16,18,31,33,35,39,45,51,52,56,58,59,66,68) without differentiation. Performed at: =GPerformed By: #### [id number] #### [facility] [address] [place] [address] Dr. Kristen Zacarias Genotype ReflexCommentTriHealth McCullough-Hy[facility] Hospital on above:Result Comment: Criteria not met, HPV Genotype not performed. Performed at: WBPerformed By: #### [id number] #### [facility] [address] [place] [address] Dr. Kristen GambinoMethodology:CommentNoAvita Health System Bucyrus Hospital on above: Result Comment: This liquid based ThinPrep(R) pap test was screened with the use of an image guided system. Performed at: WBPerformed By: #### [id number] #### [place] [address] Dr[address] Kristne GambinoNote:CommentNoAvita Health System Bucyrus Hospital on above:Result Comment: The Pap smear is a screening test designed to aid in the detection of premalignant and malignant conditions of the uterine cervix. It is not a diagnostic procedure and should not be used as the sole means of detecting cervical cancer. Both false-positive and false-negative reports do occur. . Performed at: WBPerformed By: #### [id number] #### [facility] [address] [place] [address] Dr. Kristen GambinoPerformed by:CommentNoAvita Health System Bucyrus Hospital on above: Result Comment: Bridget Romo, Nipple Maker (ASCP) Performed at: WBPerformed By: #### [id number] #### [facility] [address] [place] [address] Dr. Kristen GambinoSpecimen adequacy:CommentNormalThe Jerzy HospitalComment on above:Result Comment: Satisfactory for evaluation. Endocervical and/or squamous metaplastic cells (endocervical component) are present. Performed at: WBPerformed By: #### [id number] #### [facility] [address] [place] [address] Dr. Kristen GambinoUS PELVIS AND TRANSVAGon [id number] PELVIS AND TRANSVAG EXAMINATION: US PELVIS AND [...] Electronically authenticated by: TERRI DELANEY Date: 2022-08-14 07:35[facility] HospitalCULTURE URINEon [id number] URINEIsolate 1 Pseudomonas aeruginosa <10,000 cfu/mL of ORGANISM 1 Pseudomonas aeruginosa ANTIBIOTIC M.I.C RX STATUS Piperacillin/Tazobactam <=4 S F Ceftazidime 2 S F Imipenem 2 S F Amikacin <=2 S F Gentamicin <=1 S F Tobramycin <=1 S F Ciprofloxacin <=0.25 S F Levofloxacin 0.25 S FNormalThe [facility] Medical CenterComment on above:Performed By: #### UAMIC #### [facility] [address] [place] [id number] Kristen GambinoMG MAMM SCREEN 3D ARCHIE CADon [id number] MAMM SCREEN 3D ARCHIE CAD Patient: GLADIS MICHAEL Exam Date: 03/06/2022 : 1975 Gender:F Ordering : KAILYN [facility] Admission #: [id number] Family : Order #: [id number] CLICK HERE TO VIEW EXAM RADIOLOGY REPORT [...] brain cancer at age 41. LOCATION: [facility] BREAST COMPOSITION: Scattered areas fibroglandular density. FINDINGS: [...] by: Shade Romo MD on 03/06/2022 at 14:25NoMary [facility] (CVDTBH)on 04-53-4006TXYH-CoV-2 (COVID-19) RNA GARTH+probe Ql (Unsp spec)Not detectedNormalNOT DETECTEDThe [facility] CenterComment on above:Result Comment: This test is not yet approved or cleared by the [place] FDA. When there are no FDA-approved or cleared tests available, and other criteria are met, FDA can make tests available under an emergency access mechanism called an Emergency Use Authorization (EUA). The EUA for this test is supported by the [place] Clerk of Health and Human Service's (HHS's) declaration [...] consistent with SARS-CoV-2.Performed By: #### CVDTBH #### [facility] [address] [place] [address] Dr. Kristen Sexton URINEon [id number] URINECulture Observations: Called Group B Strep to [...] 0.5 S F Tetracycline >=16 R FNormalThe [facility] CenterComment on above:Performed By: #### UAMIC #### [facility] [address] [place] [address] Dr. Kristen Mathis AUTO DIFFon [id number] #0.2 103/ulCritically high0.0-0.1 The [facility] CenterComment on above:Performed By: #### CBC #### [facility] [address] [place] [address] Dr. Kristen GambinoBasophils/100 WBC (Bld)1.3 %Normal0.2-2.0The [facility] Comment on above:Performed By: #### CBC #### [facility] [address] [place] [address] Dr. Peterson ChangEClaudette #0.3 103/ulNormal0.0-0.7The [facility] CenterComment on above: Performed By: #### CBC #### [facility] [address] [place] [address] Dr. Kristen Velasquezosinophils/100 WBC (Bld)1.9 %Normal0.9-7.0The [facility] Comment on above:Performed By: #### CBC #### [facility] [address] [place] [address] Dr. Kristen Velasquezrythrocyte distribution width (RBC) [Ratio]13.4 %Wyvgok75.0-15.0 The [facility] CenterComment on above:Performed By: #### CBC #### [facility] [address] [place] [address] Dr. Kristen GambinoHematocrit (Bld) [Volume fraction]41.3 %Alzajf57.0-48.0The [facility] CenterComment on above:Performed By: #### CBC #### [facility] [address] [place] [address] Dr. Kristen GambinoHemoglobin (Bld) [Mass/Vol]13.6 g/jFJuanei41.0-16.0The [facility] CenterComment on above:Performed By: #### CBC #### [facility] [address] [place] [address] Dr. Kristen Weaver #0.07 10e3/ulCritically high0.00-0.03The [facility] Comment on above:Performed By: #### CBC #### [facility] [address] [place] [address] Dr. Kristen Weaver %0.4 %Normal0.0-0.5The [facility] CenterComment on above: Performed By: #### CBC #### [facility] [address] [place] [address] Dr. Kristen MontielMPH #3.6 103/ulNormal1.2-3.8The [facility] CenterComment on above:Performed By: #### CBC #### [facility] [address] [place] [address] Dr. Kristen Montielmphocytes/100 WBC (Bld)22.4 %Rvokkq40.5-60.0The [facility] CenterComment on above:Performed By: #### CBC #### [facility] [address] [place] [address] Dr. Kristen Akins DIFF REQNONormalThe [facility] Medical CenterComment on above: Performed By: #### CBC #### [facility] [address] [place] [address] Dr. Kristen Dominguez (RBC) [Entitic mass]27.8 odDlrvsh94.7-34.0The [facility] CenterComment on above:Performed By: #### CBC #### [facility] [address] [place] [address] Dr. Kristen Dominguez (RBC) [Mass/Vol]32.9 g/zYXyekwg65.9-35.2The [facility] CenterComment on above:Performed By: #### CBC #### [facility] [address] [place] [address] Dr. Kristen Dominguez (RBC) [Entitic vol]84.5 tZOszbuv19.0-99.0Veterans Health AdministrationComment on above:Performed By: #### CBC #### [facility] [address] [place] [address] Dr. Kristen Powell #1.1 103/ulCritically high0.3-0.8ThPike [facility] Comment on above:Performed By: #### CBC #### [facility] [address] [place] [address] Dr. Kristen Bagleyocytes/100 WBC (Bld)7.0 %Normal1.7-12.0[facility] Comment on above:Performed By: #### CBC #### [facility] [address] [place] [address] Dr. Kristen Kim #10.7 103/ulCritically high1.4-6.5ThPike Community Hospital Comment on above:Performed By: #### CBC #### [facility] [address] [place] [address] Dr. Kristen Da Silvautrophils/100 WBC (Bld)67.0 %Yncwzg15.0-75.0The [facility] CenterComment on above:Performed By: #### CBC #### [facility] [address] [place] [address] Dr. Kristen GambinoPlatelet mean volume (Bld) [Entitic vol]9.3 fLCritically low 9.5-13.5The [facility] on above:Performed By: #### CBC #### [facility] [address] [place] [address] Dr. Kristen GambinoPLT502 103/ulCritically woff798-467Sxg [facility] on above:Performed By: #### CBC #### [facility] [address] [place] [address] Dr. Kristen GambinoRBC4.89 106/ulNormal4.20-5.40The [facility] on above:Performed By: #### CBC #### [facility] [address] [place] [address] Dr. Kristen GambinoWBC16.0 103/ulCritically high4.0-11.0The [facility] on above:Performed By: #### CBC #### [facility] [address] [place] [address] Dr. Kristen GambinoPROF 14(COMP METB)on 97-19-2620Fcvjbda [Mass/Vol]4.0 g/dLNormal 3.4-5.0The [facility] on above:Performed By: #### CMP #### [facility] [address] [place] [address] Dr. Kristen GambinoAlbumin/Globulin [Mass ratio]0.9 {ratio}NormalThe [facility] on above:Performed By: #### CMP #### [facility] [address] [place] [address] Dr. Kristen Madrid [Catalytic activity/Vol]72 U/REdakao74-690Jyd [facility] on above:Performed By: #### CMP #### [facility] [address] [place] [address] Dr. Kristen DillonT [Catalytic activity/Vol]45 U/ZSlrapu43-58Llm [facility] on above:Performed By: #### CMP #### [facility] [address] [address] [address] Kristen Ruizon gap [Moles/Vol]12.4 mmol/LNormalThe [facility] Comment on above:Performed By: #### CMP #### [facility] [address] [address] [address] Kristen GambinoAST [Catalytic activity/Vol]31 U/WHviccn80-71Qvo [facility] CenterComment on above:Performed By: #### CMP #### [facility] [address] [address] [address] Kristen GambinoBilirubin [Mass/Vol]0.6 mg/dLNormal0.2-1.0The [facility] Comment on above:Performed By: #### CMP #### [facility] [address] [address] [address] Kristen GambinoCalcium [Mass/Vol]9.2 mg/dLNormal8.5-10.1[facility] Comment on above:Performed By: #### CMP #### [facility] [address] [address] [address] Kristen GambinoChloride [Moles/Vol]101 mmol/QFohnsi23-873Pkl [facility] Comment on above:Performed By: #### CMP #### [facility] [address] [address] [address] Kristen GambinoCO2 [Moles/Vol]26.3 mmol/NEtivvu12.0-32.0The [facility] Comment on above:Performed By: #### CMP #### [facility] [address] [address] [address] Kristen GambinoCreatinine [Mass/Vol]0.74 mg/dLNormal0.55-1.02The [facility] CenterComment on above:Performed By: #### CMP #### [facility] [address] [address] [address] Peterson ChangEGFR-AF TONGAN>60Normal>=60The [facility] CenterComment on above:Performed By: #### CMP #### [facility] [address] [address] [address] Kristen VelasquezGFR-NON AF TONGAN>60Normal>=60The [facility] CenterComment on above:Performed By: #### CMP #### [facility] [address] [address] [address] Kristen GambinoGlobulin (S) [Mass/Vol]4.4 g/dLNormKettering Health MiamisburgComment on above:Performed By: #### CMP #### [facility] [address] [address] [address] Kristen GambinoGlucose [Mass/Vol]106 mg/nGDfhtbl66-296Vtd [facility] Comment on above:Performed By: #### CMP #### [facility] [address] [address] [address] Kristen GambinoPotassium [Moles/Vol]3.7 mmol/LNormal3.5-5.1The [facility] Comment on above:Performed By: #### CMP #### [facility] [address] [place] [address] Dr. Kristen GambinoProtein [Mass/Vol]8.4 g/dLCritically high6.4-8.2The [facility] CenterComment on above:Performed By: #### CMP #### [facility] [address] [place] [address] Dr. Kristen GambinoSodium [Moles/Vol]136 mmol/PFlmckq562-375Qeb [facility] Comment on above:Performed By: #### CMP #### [facility] [address] [place] [address] Dr. Kristen GambinoUrea nitrogen [Mass/Vol]14.0 mg/dLNormal7.0-18.0The [facility] CenterComment on above:Performed By: #### CMP #### [facility] [address] [place] [address] Dr. Kristen Watkins nitrogen/Creatinine [Mass ratio]18.9 mg/mgNormalThPike Community HospitalComment on above:Performed By: #### CMP #### [facility] [address] [place] [address] Dr. Kristen Hancock RANDOM W/MICROSCOPICon 82-42-5376QBEGJJMGAUWJHLbavmdgkVBFH SEENVeterans Health AdministrationCombrighton hospital on above:Performed By: #### UAMIC #### [facility] [address] [address] [address] Kristen Leonard Ql (U)NegativeNormalNEGATIVEPromedica Defiance Regional Hospital on above:Performed By: #### UAMIC #### [facility] [address] [address] [address] Kristen Falk OX CRYSTALSMODERATEWestern Reserve HospitalComment on above:Performed By: #### UAMIC #### [facility] [address] [address] [address] Kristen GarciaNONE SEENNormalNONE SEENTriHealth Bethesda Butler Hospital on above:Performed By: #### UAMIC #### [facility] [address] [address] [address] Kristen Chawla (U)CLEARNormalCLEARVeterans Health AdministrationComment on above: Performed By: #### UAMIC #### [facility] [address] [address] [address] Kristen Boucher (U)YELLOWNormalYELLOWVeterans Health AdministrationCombrighton hospital on above: Performed By: #### UAMIC #### [facility] [address] [address] [address] Kristen GambinoCrystals LM Nom (Urine sed)SEENAbnormalNONE SEENTriHealth Bethesda Butler Hospital on above:Performed By: #### UAMIC #### [facility] [address] [address] [address] Peterson ChangEpithelial cells LM Ql (Urine sed)MODERATEAbnormalNONE SEEN /RARE The [facility] CenterCombrighton hospital on above:Performed By: #### UAMIC #### [facility] [address] [address] [address] Kristen Barthose Ql (U)NegativeNormalNEGATIVEVeterans Health AdministrationCombrighton hospital on above:Performed By: #### UAMIC #### [facility] [address] [address] [address] Kristen GambinoHemoglobin Ql (U)NegativeNormalNEGATIVEVeterans Health Administration Comment on above:Performed By: #### UAMIC #### [facility] [address] [address] [address] Kristen GambinoKetones Ql (U)NegativeNormalNEGATIVEVeterans Health AdministrationComment on above:Performed By: #### UAMIC #### [facility] [address] [address] [address] Kristen GambinoLEUKOCYTESSMALLAbnormalNEGATIVEThe [facility] CenterComment on above:Performed By: #### UAMIC #### [facility] [address] [place] [address] Dr. Kristen GambinoMUCOUSSMALLAbnormalNONE SEENVeterans Health AdministrationComment on above:Performed By: #### UAMIC #### [facility] [address] [place] [address] Dr. Kristen GambinoNitrite Ql (U)NegativeNormalNEGATIVEVeterans Health AdministrationComment on above:Performed By: #### UAMIC #### [facility] [address] [place] [address] Dr. Kristen GambinopH (U)5.0 [pH]Normal5-9Veterans Health AdministrationComment on above: Performed By: #### UAMIC #### [facility] [address] [address] [address] Kristen GambinoRBCNONE SEENAbnormal0-2The [facility] CenterComment on above: Performed By: #### UAMIC #### [facility] [address] [place] [address] Dr. Kristen GambinoSPEC GRAVITY>=1.539Iuxheqcq5.005-<=1.025The [facility] Comment on above:Performed By: #### UAMIC #### [facility] [address] [place] [address] Dr. Kristen GambinoUA PROTEINNegativeNormalNEGATIVE/ TRACEThe [facility] Comment on above:Performed By: #### UAMIC #### [facility] [address] [address] [address] Kristen Eckert Qn (U)0.2 {Sonya'U}/dLNormal0.2 - 1.0The [facility] CenterComment on above:Performed By: #### UAMIC #### [facility] [address] [place] [address] Dr. Kristen GambinoWBC5-10AbnormalNONE SEENThe [facility] CenterComment on above: Performed By: #### UAMIC #### [facility] [address] [place] [address] Dr. Kristen GambinoXR TSPINE 2 VIEWSon 72-54-2133SA TSPINE 2 VIEWSEXAMINATION: XR TSPINE 2 VIEWS [...] Electronically authenticated by: TERRI DELANEY Date: 2022-01-11 07:[facility] AUTO DIFFon [id number] #0.1 103/ulNormal0.0-0.1The [facility] CenterComment on above:Performed By: #### CBC #### [facility] [address] [place] [address] Dr. Kristen GambinoBasophils/100 WBC (Bld)1.0 %Normal0.2-2.0The [facility] Comment on above:Performed By: #### CBC #### [facility] [address] [place] [address] Dr. Kristen Jimenez #0.1 103/ulNormal0.0-0.7The [facility] CenterComment on above: Performed By: #### CBC #### [facility] [address] [place], [place] [id number] Dr. Kristen Velasquezosinophils/100 WBC (Bld)1.0 %Normal0.9-7.0The [facility] Comment on above:Performed By: #### CBC #### [facility] [address] [place] [address] Dr. Kristen Velasquezrythrocyte distribution width (RBC) [Ratio]13.2 %Ccxlbq68.0-15.0 The [facility] CenterComment on above:Performed By: #### CBC #### [facility] [address] [place] [address] Dr. Kristen GambinoHematocrit (Bld) [Volume fraction]42.5 %Pzwevl24.0-48.0The [facility] CenterComment on above:Performed By: #### CBC #### [facility] [address] [place] [address] Dr. Kristen GambinoHemoglobin (Bld) [Mass/Vol]13.6 g/mNFaxztd78.0-16.0The [facility] CenterComment on above:Performed By: #### CBC #### [facility] [address] [place] [address] Dr. Kristen Weaver #0.05 10e3/ulCritically high0.00-0.03The [facility] Comment on above:Performed By: #### CBC #### [facility] [address] [place] [address] Dr. Kristen Weaver %0.4 %Normal0.0-0.5The [facility] CenterComment on above: Performed By: #### CBC #### [facility] [address] [place] [address] Dr. Kristen RileyH #2.5 103/ulNormal1.2-3.8The [facility] CenterComment on above:Performed By: #### CBC #### [facility] [address] [place] [address] Dr. Kristen Montielmphocytes/100 WBC (Bld)20.2 %Critically low20.5-60.0The [facility] CenterComment on above:Performed By: #### CBC #### [facility] [address] [place] [address] Dr. Kristen Akins DIFF REQNONormalThe [facility] CenterComment on above: Performed By: #### CBC #### [facility] [address] [place] [address] Dr. Kristen Dominguez (RBC) [Entitic mass]27.2 xwYtuunc71.7-34.0The [facility] CenterComment on above:Performed By: #### CBC #### [facility] [address] [place] [address] Dr. Kristen Dominguez (RBC) [Mass/Vol]32.0 g/kDOmcnke88.9-35.2The [facility] CenterComment on above:Performed By: #### CBC #### [facility] [address] [place] [address] Dr. Kristen Dominguez (RBC) [Entitic vol]85.0 jARmhuig96.0-99.0The [facility] CenterComment on above:Performed By: #### CBC #### [facility] [address] [place] [address] Dr. Kristen Powell #0.7 103/ulNormal0.3-0.8The [facility] CenterComment on above:Performed By: #### CBC #### [facility] [address] [place] [address] Dr. Kristen Bagleyocytes/100 WBC (Bld)5.7 %Normal1.7-12.0[facility] Comment on above:Performed By: #### CBC #### [facility] [address] [place] [address] Dr. Kristen Kim #9.0 103/ulCritically high1.4-6.5The [facility] Comment on above:Performed By: #### CBC #### [facility] [address] [place] [address] Dr. Kristen Da Silvautrophils/100 WBC (Bld)71.7 %Jxgmmh91.0-75.0The [facility] CenterComment on above:Performed By: #### CBC #### [facility] [address] [address] [address] Kristen Arriola mean volume (Bld) [Entitic vol]9.2 fLCritically low 9.5-13.5The [facility] CenterCombrighton hospital on above:Performed By: #### CBC #### [facility] [address] [place] [address] Dr. Kristen GambinoPLT413 103/tyMupsog062-534Zbg [facility] CenterComment on above: Performed By: #### CBC #### [facility] [address] [place] [address] Dr. Kristen GambinoRBC5.00 106/ulNormal4.20-5.40The [facility] on above:Performed By: #### CBC #### [facility] [address] [place] [address] Dr. Kristen GambinoWBC12.5 103/ulCritically high4.0-11.0The [facility] CenterComment on above:Performed By: #### CBC #### [facility] [address] [place] [address] Dr. Kristen GambinoPREJonathon QUANT HCGon 91-74-4362TWG QUANT1 mIU/mLNormalVeterans Health AdministrationCombrighton hospital on above:Performed By: #### PREGQNT #### [facility] [address] [place] [address] Dr. Kristen GambinoHCJonathon RANGESEE BELOWNoHocking Valley Community Hospitale [facility] CenterComment on above: Result Comment: 5-50 0-1 WEEK 40-300 1-2 WEEKS 100-1,000 2-3 WEEKS 500-6,000 3-4 WEEKS 5,000-200,000 1-2 MONTHS 10,000-100,000 2-3 MONTHS 3,000-50,000 2ND TRIMESTER 1,000-50,000 3RD TRIMESTERPerformed By: #### PREGQNT #### [facility] [address] [place] [address] Dr. Kristen GambinoCHEMISTRYOrdered By: SYSTEM SYSTEM on 16-93-1020Njdgrnq [Mass/Vol]4.5 g/dLNormal3.3 - 5.0 gm/dLFTMC RemisolAlbumin/Globulin [Mass ratio] 1.2 {ratio}Normal1.1 - 2.2[facility] RemisolALP [Catalytic activity/Vol]53 [iU]/d Inrczh86 - 98 Int._Unit/LFTMC RemisolALT No additional P-5'-P [Catalytic activity/Vol]23 [iU]/dNormal6 - 46 Int._Unit/LFTMC RemisolAnion gap [Moles/Vol] 13 mmol/LNormal6 - 16 mEq/LFTMC RemisolAST [Catalytic activity/Vol]20 [iU]/d Normal5 - 43 Int._Unit/LFTMC RemisolBilirubin [Mass/Vol]0.8 mg/dLNormal0.0 - 1.1 mg/dLFTMC RemisolBilirubin.direct [Mass/Vol]0.1 mg/dLNormal0.1 - 0.4 mg/dLFTMC RemisolBilirubin.indirect [Mass or moles/Vol]0.7 mg/dLNormal0.1 - 0.9 mg/dLFTMC RemisolCalcium [Mass/Vol]9.4 mg/dLNormal8.9 - 11.1 mg/dLFTMC RemisolChloride [Moles/Vol]99 mmol/POur891 - 111 mmol/LFTMC RemisolCO2 [Moles/Vol]25 mmol/L Hdxiwq52 - 31 mmol/LFTMC RemisolCreatinine [Mass/Vol]0.6 mg/dLNormal0.5 - 1.3 mg/dLFTMC RemisolGFR/1.73 sq M.predicted among blacks MDRD (S/P/Bld) [Vol rate/Area]mL/min/1.73 f4Rmlxnl>=59mL/min/1.73 m2[facility] Chem SGFR/1.73 sq M.predicted among non-blacks MDRD (S/P/Bld) [Vol rate/Area]mL/min/1.73 j3Hfohll >=59mL/min/1.73 m2[facility] Chem SGlobulin (S) [Mass/Vol]3.8 g/dLNormal1.4 - 4.0 gm/dLFTMC RemisolGlucose [Mass/Vol]111 mg/mYDkgwgl14 - 199 mg/dLFTMC Remisol Lipase [Catalytic activity/Vol]26 U/LEnaxxi95 - 58 unit/LFTMC RemisolPotassium [Moles/Vol]3.8 mmol/LNormal3.5 - 5.3 mmol/LFTMC RemisolProtein [Mass/Vol]8.3 g/dLHigh6.0 - 7.8 gm/dLFTMC RemisolSodium [Moles/Vol]133 mmol/YUzf362 - 145 mmol/LFTMC RemisolUrea nitrogen [Mass/Vol]11 mg/dLNormal5 - 21 mg/dLFTMC Remisol Urea nitrogen/Creatinine [Mass ratio]18 mg/oeHuxjrz88 - 20FT[facility] RemisolHEMATOLOGY Ordered By: SYSTEM SYSTEM on 95-33-5497Vbgrfttqh/100 WBC (Bld)0.9 %Normal0.0 - 2.0 %[facility] HemeAutoSSBasophils/Leukocytes Auto (Bld) [Pure # fraction]0.1 E9/L Normal0.0 - 0.2 E9/LFTMC HemeAutoSSEosinophils/100 WBC (Bld)1.3 %Normal0.0 - 8.0 %[facility] HemeAutoSSEosinophils/Leukocytes Auto (Bld) [Pure # fraction]0.2 E9/L Normal0.0 - 0.5 E9/LFTMC HemeAutoSSLymphocytes/100 WBC (Bld)19.8 %Hxooik99.0 - 50.0 %[facility] HemeAutoSSLymphocytes/Leukocytes Auto (Bld) [Pure # fraction]2.6 E9/L Normal1.0 - 4.0 E9/LFTMC HemeAutoSSMonocytes/100 WBC (Bld)6.0 %Normal4.0 - 14.0 %[facility] HemeAutoSSMonocytes/Leukocytes Auto (Bld) [Pure # fraction]0.8 E9/LNormal 0.2 - 1.0 E9/LFTMC HemeAutoSSNeutrophils/100 WBC (Bld)72.0 %Wusfrq65.0 - 75.0 % [facility] HemeAutoSSNeutrophils/Leukocytes Auto (Bld) [Pure # fraction]9.4 E9/LHigh 2.0 - 7.5 E9/LFTMC HemeAutoSSHEMATOLOGYOrdered By: Lisbet Moon on 10-20-2021 Erythrocyte distribution width (RBC) [Ratio]13.5 %Uaojas03.9 - 14.2 %[facility] HemeAutoSSHematocrit (Bld) [Volume fraction]41.8 %Rsdssl92.0 - 46.0 %[facility] HemeAutoSSHemoglobin (Bld) [Mass/Vol]14.1 g/zMOiopom45.0 - 16.0 gm/dLFTMC HemeAutoSSMCH (RBC) [Entitic mass]27.2 qwXlqvhz22.0 - 34.0 pgFTMC HemeAutoSSMCHC (RBC) [Mass/Vol]33.7 g/lVYqhpnr38.4 - 36.0 gm/dLFTMC HemeAutoSSMCV (RBC) [Entitic vol]80.6 lSNjdeii22.0 - 100.0 fLFTMC HemeAutoSSPlatelet mean volume (Bld) [Entitic vol]7.9 fLNormal6.4 - 10.8 fLFTMC HemeAutoSSPlatelets (Bld) [#/Vol]473.0 E9/DUgtfap763.0 - 500.0 E9/LFTMC HemeAutoSSRBC (Bld) [#/Vol]5.2 E12/LNormal4.3 - 5.9 E12/LFTMC HemeAutoSSWBC corrected for nucl RBC Auto (Bld) [#/Vol]13.1 E9/LHigh4.0 - 11.0 E9/LFTMC HemeAutoSSURINALYSISOrdered By: Sarmad Marina on 46-08-7842Pcdghkhba Ql (U)Negative (10/20/21 6:38 PM)NormalNegativeFTMC UA Auto SSClarity (U)Clear (10/20/21 6:38 PM)NormalClearFTMC UA Auto SSColor (U)Yellow (10/20/21 6:38 PM)NormalYellowFT UA Auto SSCrystals LM Ql (Urine sed)Present (10/20/21 6:38 PM)NormalFTMC UA Auto SSEpithelial cells.squamous LM.HPF (Urine sed) [#/Area]0-2 /HPFNormal0-2/HPFSOUTHWE[facility] [place] [facility] Auto SSGlucose Test strip (U) [Mass/Vol]Negative (10/20/21 6:38 PM)NormalNegativeSOUTHWE[facility] [place] [facility] Auto SSHemoglobin Ql (U)Negative (10/20/21 6:38 PM)NormalNegativeSOU[facility] [place] [facility] Auto SSKetones (U) [Mass/Vol]Negative (10/20/21 6:38 PM)NormalNegativeSOUTHWE[facility] [place] UA Auto SSLithium.plasma/[place].RBC (Bld) [Mass ratio]0-3 /HPFNormal0-3/HPFSOUTHWESTERN [facility] [place] [facility] Auto SSNitrite Ql (U)Negative (10/20/21 6:38 PM)NormalNegativeSOUTHWE[facility] [place] [facility] Auto SSpH (U)6.0 *NA* (10/20/21 6:38 PM)Invalid Interpretation Code5.0 - 9.0[facility] UA Auto SSProtein (U) [Mass/Vol]Negative (10/20/21 6:38 PM)NormalNegativeSOUTHWE[facility] [place] U[facility] Auto SSSpecific gravity (U) [Rel density] <=1.005 *NA* (10/20/21 6:38 PM)Invalid Interpretation Code1.005 - 1.030[facility] UA Auto SSUA Spec DescClean Catch (10/20/21 6:38 PM)NormalSOUTHWESTERN [facility] [place] [facility] Auto SSUrobilinogen Qn (U)0.6351527 {Sonya'U}/dLNormal0.0 - 1.0 EU/dLSOUTHWESTERN REGIONAL [facility] [place] U[facility] Auto SSWBC Auto Ql (U)Trace *ABN* (10/20/21 6:38 PM)Invalid Interpretation CodeNegativeSOU[facility] [place] [facility] Auto SSWBC LM.HPF (Urine sed) [#/Area]0-5 /HPFNormal0-5/HPFSOUTHWESTERN [facility] [place] U[facility] Auto SSCHEMISTRYOrdered By: SYSTEM SYSTEM on 22-87-7207Tkmotlp [Mass/Vol]4.2 g/dLNormal3.3 - 5.0 gm/dLFTMC RemisolAlbumin/Globulin [Mass ratio]1.2 {ratio}Normal1.1 - 2.2[facility] RemisolALP [Catalytic activity/Vol]48 [iU]/yPylalx36 - 98 Int._Unit/LFTMC RemisolALT No additional P-5'-P [Catalytic activity/Vol]26 [iU]/dNormal6 - 46 Int._Unit/LFTMC RemisolAnion gap [Moles/Vol]12 mmol/LNormal6 - 16 mEq/LFTMC RemisolAST [Catalytic activity/Vol]23 [iU]/dNormal5 - 43 Int._Unit/LFTMC RemisolBilirubin [Mass/Vol]0.8 mg/dLNormal0.0 - 1.1 mg/dLFTMC RemisolBilirubin.direct [Mass/Vol] 0.2 mg/dLNormal0.1 - 0.4 mg/dLFTMC RemisolBilirubin.indirect [Mass or moles/Vol] 0.6 mg/dLNormal0.1 - 0.9 mg/dLFTMC RemisolCalcium [Mass/Vol]9.1 mg/dLNormal8.9 - 11.1 mg/dLFTMC RemisolChloride [Moles/Vol]102 mmol/HUlzlmc234 - 111 mmol/LFTMC RemisolCO2 [Moles/Vol]24 mmol/RBwlzpa83 - 31 mmol/LFTMC RemisolCreatinine [Mass/Vol]0.4 mg/dLLow0.5 - 1.3 mg/dLFTMC RemisolGFR/1.73 sq M.predicted among blacks MDRD (S/P/Bld) [Vol rate/Area]mL/min/1.73 k9Mbgrzs>=59mL/min/1.73 m2FT[facility] Chem SGFR/1.73 sq M.predicted among non-blacks MDRD (S/P/Bld) [Vol rate/Area] mL/min/1.73 z2Oseuci>=59mL/min/1.73 m2FT[facility] Chem SGlobulin (S) [Mass/Vol]3.6 g/dL Normal1.4 - 4.0 gm/dLFTMC RemisolGlucose [Mass/Vol]108 mg/mXIolhaa10 - 199 mg/dL [facility] RemisolLactate [Mass/Vol]1.1 mmol/LNormal0.5 - 2.2 mmol/LFTMC RemisolLipase [Catalytic activity/Vol]28 U/ZTkxjmv37 - 58 unit/LFTMC RemisolPotassium [Moles/Vol]3.7 mmol/LNormal3.5 - 5.3 mmol/LFTMC RemisolProtein [Mass/Vol]7.8 g/dLNormal6.0 - 7.8 gm/dLFTMC RemisolSodium [Moles/Vol]134 mmol/EThx741 - 145 mmol/LFTMC RemisolUrea nitrogen [Mass/Vol]13 mg/dLNormal5 - 21 mg/dLFTMC Remisol Urea nitrogen/Creatinine [Mass ratio]32 mg/egBdzj24 - 20FT[facility] RemisolHEMATOLOGY Ordered By: SYSTEM SYSTEM on 49-96-7379Swzazwqrx/100 WBC (Bld)1.0 %Normal0.0 - 2.0 %[facility] HemeAutoSSBasophils/Leukocytes Auto (Bld) [Pure # fraction]0.1 E9/L Normal0.0 - 0.2 E9/LFTMC HemeAutoSSEosinophils/100 WBC (Bld)1.3 %Normal0.0 - 8.0 %[facility] HemeAutoSSEosinophils/Leukocytes Auto (Bld) [Pure # fraction]0.1 E9/L Normal0.0 - 0.5 E9/LFTMC HemeAutoSSLymphocytes/100 WBC (Bld)25.5 %Xsauek89.0 - 50.0 %[facility] HemeAutoSSLymphocytes/Leukocytes Auto (Bld) [Pure # fraction]2.6 E9/L Normal1.0 - 4.0 E9/LFTMC HemeAutoSSMonocytes/100 WBC (Bld)5.7 %Normal4.0 - 14.0 %[facility] HemeAutoSSMonocytes/Leukocytes Auto (Bld) [Pure # fraction]0.6 E9/LNormal 0.2 - 1.0 E9/LFTMC HemeAutoSSNeutrophils/100 WBC (Bld)66.5 %Jyognb56.0 - 75.0 % [facility] HemeAutoSSNeutrophils/Leukocytes Auto (Bld) [Pure # fraction]6.7 E9/LNormal 2.0 - 7.5 E9/LFTMC HemeAutoSSHEMATOLOGYOrdered By: Lisbet Moon on 10-18-2021 Erythrocyte distribution width (RBC) [Ratio]13.5 %Qtuqon97.9 - 14.2 %FT HemeAutoSSHematocrit (Bld) [Volume fraction]38.7 %Tydsrv25.0 - 46.0 %[facility] HemeAutoSSHemoglobin (Bld) [Mass/Vol]13.2 g/iEZqcwtz82.0 - 16.0 gm/dLFT HemeAutoSSMCH (RBC) [Entitic mass]27.6 ptPutfim84.0 - 34.0 pgFTMC HemeAutoSSMCHC (RBC) [Mass/Vol]34.2 g/mYUmnqfu70.4 - 36.0 gm/dLFTMC HemeAutoSSMCV (RBC) [Entitic vol]81.0 uOMllgnq80.0 - 100.0 fLFT HemeAutoSSPlatelet mean volume (Bld) [Entitic vol]7.9 fLNormal6.4 - 10.8 fLFT HemeAutoSSPlatelets (Bld) [#/Vol]415.0 E9/IGryyef860.0 - 500.0 E9/LFC HemeAutoSSRBC (Bld) [#/Vol]4.8 E12/LNormal4.3 - 5.9 E12/LFTMC HemeAutoSSWBC corrected for nucl RBC Auto (Bld) [#/Vol]10.1 E9/LNormal4.0 - 11.0 E9/LFC HemeAutoSSSEROLOGYOrdered By: Amber Peraza on 52-95-0606MXK.beta subunit (U) [Moles/Vol]NegativeNormalFT Man Sero URINALYSISOrdered By: Lisbet Moon on 20-19-4207Fkvqnawn LM Ql (Urine sed) Trace /HPFNormalTrace/HPFFT UA Auto SSBilirubin Ql (U)Negative (10/18/21 5:09 AM)NormalNegativeFT UA Auto SSClarity (U)Clear (10/18/21 5:09 AM)NormalClearFTMC UA Auto SSColor (U)STRAWInvalid Interpretation CodeFT UA Auto SSEpithelial cells.squamous LM.HPF (Urine sed) [#/Area]0-2 /HPF Normal0-2/HPFSOUTHWEST[facility] [place] U[facility] Auto SSGlucose Test strip (U) [Mass/Vol]Negative (10/18/21 5:09 AM)NormalNegativeSOU[facility]WE[facility] [place] UA Auto SSHemoglobin Ql (U)Trace *ABN* (10/18/21 5:09 AM)Invalid Interpretation CodeNegativeSOU[facility] [place] [facility] Auto SSKetones (U) [Mass/Vol]Negative (10/18/21 5:09 AM)NormalNegativeSOU[facility] [place] UA Auto SSLithium.plasma/[place].RBC (Bld) [Mass ratio]0-3 /HPFNormal0-3/HPFSOUTHWESTERN [facility] [place] UA Auto SSNitrite Ql (U)Negative (10/18/21 5:09 AM)NormalNegativeSOUTHWE[facility] [place] [facility] Auto SSpH (U)6.5 *NA* (10/18/21 5:09 AM)Invalid Interpretation Code5.0 - 9.0[facility] UA Auto SSProtein (U) [Mass/Vol]Negative (10/18/21 5:09 AM)NormalNegativeSOUTHWE[facility] [place] [facility] Auto SSSpecific gravity (U) [Rel density] 1.010 *NA* (10/18/21 5:09 AM)Invalid Interpretation Code1.005 - 1.030[facility] [place] UA Auto SSUA Spec DescClean Catch (10/18/21 5:09 AM)NormalSOUTHWESTERN [facility] [place] [facility] Auto SSUrobilinogen Qn (U)0.4729748 {Sonya'U}/dLNormal0.0 - 1.0 EU/dLSOUTHWESTERN REGIONAL [facility] [place] U[facility] Auto SSWBC Auto Ql (U)Trace *ABN* (10/18/21 5:09 AM)Invalid Interpretation CodeNegativeSOU[facility] [place] [facility] Auto SSWBC LM.HPF (Urine sed) [#/Area]0-5 /HPFNormal0-5/HPFSOUTHWESTERN [facility] [place] U[facility] Auto SSCBC AUTO DIFFon 18-05-9840CVLB #0.1 103/ulNormal0.0-0.1The [facility] CenterComment on above: Performed By: #### CBC #### [facility] [address] [place] [address] Dr. Kristen Cohensophils/100 WBC (Bld)1.0 %Normal0.2-2.0The [facility] Comment on above:Performed By: #### CBC #### [facility] [address] [place] [address] Dr. Kristen Jimenez #0.1 103/ulNormal0.0-0.7The [facility] CenterComment on above: Performed By: #### CBC #### [facility] [address] [place] [address] Dr. Kristen Velasquezosinophils/100 WBC (Bld)0.9 %Normal0.9-7.0The [facility] Comment on above:Performed By: #### CBC #### [facility] [address] [place] [address] Dr. Kristen Velasquezrythrocyte distribution width (RBC) [Ratio]13.3 %Wncjbq70.0-15.0 The [facility] CenterComment on above:Performed By: #### CBC #### [facility] [address] [place] [address] Dr. Kristen GambinoHematocrit (Bld) [Volume fraction]44.6 %Feslbh98.0-48.0The [facility] CenterComment on above:Performed By: #### CBC #### [facility] [address] [place] [address] Dr. Kristen GambinoHemoglobin (Bld) [Mass/Vol]14.4 g/wZUgzjcr27.0-16.0The [facility] CenterComment on above:Performed By: #### CBC #### [facility] [address] [place] [address] Dr. Kristen Weaver #0.03 10e3/ulNormal0.00-0.03The [facility] CenterComment on above:Performed By: #### CBC #### [facility] [address] [place] [address] Dr. Kristen Weaver %0.3 %Normal0.0-0.5The [facility] CenterComment on above: Performed By: #### CBC #### [facility] [address] [place] [address] Dr. Kristen Christina #1.6 103/ulNormal1.2-3.8The [facility] CenterComment on above:Performed By: #### CBC #### [facility] [address] [place] [address] Dr. Kristen Montielmphocytes/100 WBC (Bld)17.9 %Critically low20.5-60.0The [facility] CenterComment on above:Performed By: #### CBC #### [facility] [address] [place] [address] Dr. Kristen Akins DIFF REQNONormalThe [facility] CenterComment on above: Performed By: #### CBC #### [facility] [address] [place] [address] Dr. Kristen Dominguez (RBC) [Entitic mass]27.1 fzFsekmw57.7-34.0The [facility] CenterComment on above:Performed By: #### CBC #### [facility] [address] [place] [address] Dr. Kristen Dominguez (RBC) [Mass/Vol]32.3 g/kVDrgbyu41.9-35.2The [facility] CenterComment on above:Performed By: #### CBC #### [facility] [address] [place] [address] Dr. Kristen Dominguez (RBC) [Entitic vol]84.0 lUAucuvt29.0-99.0The [facility] CenterComment on above:Performed By: #### CBC #### [facility] [address] [place] [address] Dr. Kristen Powell #0.7 103/ulNormal0.3-0.8The [facility] CenterComment on above:Performed By: #### CBC #### [facility] [address] [place] [address] Dr. Kristen Bagleyocytes/100 WBC (Bld)7.6 %Normal1.7-12.0The [facility] Comment on above:Performed By: #### CBC #### [facility] [address] [place] [address] Dr. Kristen Kim #6.6 103/ulCritically high1.4-6.5The [facility] Comment on above:Performed By: #### CBC #### [facility] [address] [place] [address] Dr. Kristen Da Silvautrophils/100 WBC (Bld)72.3 %Selfnj55.0-75.0The [facility] CenterComment on above:Performed By: #### CBC #### [facility] [address] [place] [address] Dr. Kristen GambinoPlatelet mean volume (Bld) [Entitic vol]9.8 fLNormal9.5-13.5The [facility] CenterComment on above:Performed By: #### CBC #### [facility] [address] [place] [address] Dr. Kristen CheathamT427 103/uhWtfnts580-268Ukz [facility] CenterComment on above: Performed By: #### CBC #### [facility] [address] [place] [address] Dr. Kristen GambinoRBC5.31 106/ulNormal4.20-5.40The [facility] CenterComment on above:Performed By: #### CBC #### [facility] [address] [place] [address] Dr. Kristen GambinoWBC9.1 103/ulNormal4.0-11.0The [facility] CenterComment on above: Performed By: #### CBC #### [facility] [address] [place] [address] Dr. Kristen GambinoLIPID PROFILEon 71-20-6970MAME-HDL RATIO NORMSEE [facility] Memorial HospitalComment on above:Result Comment: 3.3 - 4.4 LOW RISK 4.4 - 7.1 AVERAGE RISK 7.1 - 11.0 MODERATE RISK >11.0 HIGH RISKPerformed By: #### CMP, LIPID #### [facility] [address] [place] [address] Dr. Kristen GambinoCholesterol [Mass/Vol]186 mg/dLNormal<=200The [facility] Comment on above:Performed By: #### CMP, LIPID #### [facility] [address] [address] [address] Kristen GambinoCholesterol in HDL [Mass/Vol]43 mg/pRHamjyz82-65Szb [facility] CenterComment on above:Performed By: #### CMP, LIPID #### [facility] [address] [place] [address] Dr. Kristen GambinoCholesterol in LDL [Mass/Vol]106.6 mg/dLNoMary Rutan HospitalComment on above:Performed By: #### CMP, LIPID #### [facility] [address] [place] [address] Dr. Kristen Barrientosesternhung.total/Cholesterol in HDL [Mass ratio]4.3 {ratio} NormalThe [facility] Medical CenterComment on above:Performed By: #### CMP, LIPID #### [facility] [address] [place] [address] Dr. Kristen Salinas NORMAL> or = 60 mg/dl - LOW CARDIOVASCULAR RISK <40 mg/dl - HIGH CARDIOVASCULAR RISKNoMary Rutan HospitalComment on above:Performed By: #### CMP, LIPID #### [facility] [address] [place] [address] Dr. Kristen Stearns CALC NORMALSEE BELOWWestern Reserve HospitalComment on above:Result Comment: <100 mg/dl OPTIMAL 100 - 129 mg/dl NEAR OR ABOVE OPTIMAL 130 - 159 mg/dl BORDERLINE HIGH 160 - 189 mg/dl HIGH >190 mg/dl VERY HIGH Performed By: #### CMP, LIPID #### [facility] [address] [place] [address] Dr. Kristen GambinoTriglyceride [Mass/Vol]182 mg/dLCritically high<=150The [facility] CenterComment on above:Performed By: #### CMP, LIPID #### [facility] [address] [place] [address] Dr. Kristen GambinoVLDL CALC36.4 mg/dLNoMary Rutan HospitalComment on above: Performed By: #### CMP, LIPID #### [facility] [address] [address] [address] Kristen GambinoPROF 14(COMP METB)on 04-31-5743Odxpkfx [Mass/Vol]3.7 g/dLNormal 3.4-5.0Veterans Health AdministrationComment on above:Performed By: #### CMP, LIPID #### [facility] [address] [address] [address] Kristen GambinoAlbumin/Globulin [Mass ratio]0.8 {ratio}NormalThe [facility] CenterComment on above:Performed By: #### CMP, LIPID #### [facility] [address] [place] [address] Dr. Kristen Madrid [Catalytic activity/Vol]70 U/FOgxyrc70-561Aug [facility] CenterComment on above:Performed By: #### CMP, LIPID #### [facility] [address] [place] [address] Dr. Kristen June [Catalytic activity/Vol]35 U/AWxpenf12-19Hgr [facility] CenterComment on above:Performed By: #### CMP, LIPID #### [facility] [address] [place] [address] Dr. Kristen Rojo gap [Moles/Vol]13.1 mmol/LNormalThe [facility] Comment on above:Performed By: #### CMP, LIPID #### [facility] [address] [place] [address] Dr. Kristen Wyman [Catalytic activity/Vol]19 U/CWadtni62-58Kvs [facility] CenterComment on above:Performed By: #### CMP, LIPID #### [facility] [address] [place] [address] Dr. Kristen GambinoBilirubin [Mass/Vol]0.7 mg/dLNormal0.2-1.3The [facility] Comment on above:Performed By: #### CMP, LIPID #### [facility] [address] [place] [address] Dr. Kristen GambinoCalcium [Mass/Vol]8.5 mg/dLNormal8.5-10.1The [facility] Comment on above:Performed By: #### CMP, LIPID #### [facility] [address] [address] [address] Kristen GambinoChloride [Moles/Vol]102 mmol/GCimimd61-260Bne [facility] Comment on above:Performed By: #### CMP, LIPID #### [facility] [address] [address] [address] Kristen GambinoCO2 [Moles/Vol]25.9 mmol/TRmwqwt71.0-30.0The [facility] Comment on above:Performed By: #### CMP, LIPID #### [facility] [address] [address] [address] Kristen GambinoCreatinine [Mass/Vol]0.62 mg/dLNormal0.52-1.04The [facility] CenterComment on above:Performed By: #### CMP, LIPID #### [facility] [address] [place] [address] Dr. Kristen VelasquezGFR-AF TONGAN>60Normal>=60The [facility] CenterComment on above:Performed By: #### CMP, LIPID #### [facility] [address] [place] [address] Dr. Kristen Shirley-NON AF TONGAN>60Normal>=60The [facility] CenterComment on above:Performed By: #### CMP, LIPID #### [facility] [address] [address] [address] Kristen GambinoGlobulin (S) [Mass/Vol]4.4 g/dLNormalThe [facility] CenterComment on above:Performed By: #### CMP, LIPID #### [facility] [address] [address] [address] Kristen GambinoGlucose [Mass/Vol]104 mg/vIHuiifq72-704Iao [facility] Comment on above:Performed By: #### CMP, LIPID #### [facility] [address] [place] [address] Dr. Kristen GambinoPotassium [Moles/Vol]4.0 mmol/LNormal3.4-5.0The [facility] Comment on above:Performed By: #### CMP, LIPID #### [facility] [address] [address] [address] Kristen GambinoProtein [Mass/Vol]8.1 g/dLNormal6.1-8.2[facility] Comment on above:Performed By: #### CMP, LIPID #### [facility] [address] [address] [address] Kristen GambinoSodium [Moles/Vol]137 mmol/VBdjixx521-703CkbVeterans Health Administration Comment on above:Performed By: #### CMP, LIPID #### [facility] [address] [place] [address] Dr. Kristen GambinoUrea nitrogen [Mass/Vol]12.0 mg/dLNormal7.0-18.0[facility] Health AdministrationComment on above:Performed By: #### CMP, LIPID #### [facility] [address] [place] [address] Dr. Kristen Watkins nitrogen/Creatinine [Mass ratio]19.4 mg/mgNormalThe [facility] CenterComment on above:Performed By: #### CMP, LIPID #### [facility] [address] [place] [address] Dr. Kristen GambinoPROGRAngie [id number] ID: [id number]: Isaac Carrasco: (none)Author Type: PhysicianType: Progress NotesFiled: 10/21/2017 2:01 PMNote Text:PATIENT NAME: Gladis PatelarMRN: [id number] PHYSICIAN: MICHAEL Rubin0 Kelley Segura [facility] [id number] CARE PHYSICIAN: MASOOD Rubin PHYSICIANS:CHIEF COMPLAINT: Pituitary [...] for5 days straight. Went to ER 02/26. [place] was negative, strep negative.Flu negative. She was [...] I answe red all questionssatisfactorily..Hai Shelton D.O.Medical OncologistSt. Bernards Medical CenterCNOVSPon 10-20-2017 CNOVSPVisit (SP) Office ([place]) --------CHIPALEXXGLADIS Daniels ([id number]) 1975 FDate Time Provider Department10/20/17 10:00 AM ISAAC SHELTON During your visit today, we recorded the following information about you: Temperature Pulse Respiration Blood pressure 98.5 degrees 69/minute 18/minute 159/106 Weight Height 105.9 kg 1.575 Kassidy Shelton DO 10/21/2017 2:01 PM SignedPATIENT NAME: Gladis Daniels JerrodRN: [id number] PHYSICIAN: MICHAEL Rubin0 Kelley Segura [facility] [id number] CARE PHYSICIAN: MASOOD Rubin PHYSICIANS:CHIEF COMPLAINT: Pituitary [...] for 5days straight. Went to ER 02/26. [place] was negative, strep negative. Flunegative. She was [...] and plan. 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]Order(s):CONSULT TO ENDOCRINOLOGY [9007] Order #: [id number]: 1Disposition: Return in about 7 months (around [...] FOR*Encounter Status:Closed by ISAAC SHELTON DO on 10/21/17NormalClevelCone Health Women's HospitalRemote Abs Gran + CBC (for [facility] use only)on 51-06-0828Cknvv Gran Count 6.74 k/uLNormal1.45-7.50CleCleveland Clinic Euclid HospitalErythrocyte distribution width Auto Ratio (RBC)13.9 %Uauyfm31.5-15.0[facility] Health CenterErythrocytes (RBC)4.76 10*6/uLNormal3.90-5.20[facility] Health CenterHematocrit (HCT)39.5 % Vxjhum25.0-46.0[facility] Health CenterHemoglobin mass conc (Bld)13.4 g/dL Bgaydu88.5-15.5CMercy Health Fairfield HospitalMCH28.2 nFZptirw06.0-34.0[facility] HospitalHC mass conc (RBC)33.9 g/hGTxzsca25.5-36.0[facility] CenterMCV83.0 lGDoyypw58.0-100.0[facility] Health CenterPlatelet mean volume (PMV)9.4 fLNormal9.0-12.7CMercy Health Fairfield HospitalPlatelets434 10*3/uL Oyom673-325VxsfwsnmkOhiohealth Nelsonville Health CenterWBC (Leukocytes)10.26 10*3/uLNormal 3.70-11.00[facility] Health CenterCNOVSPon 29-94-4457RTQPOPGsqaz (SP) Office ([place]) --------GLADIS MICHAEL ([id number]) 1975 [facility] Time Provider Department10/09/17 11:15 AM ISAAC SHELTON [place] During your visit today, we recorded the following information about you: Temperature Pulse Respiration Blood pressure 98 degrees 75/minute 18/minute 151/106 Weight Height 111 kg 1.575 Isaac Myers 10/10/2017 2:10 AM SignedPATIENT NAME: Gladis ElderRN: [id number] PHYSICIAN: [place] [address]CNRSVDU CARE PHYSICIAN: MASOOD Rubin PHYSICIANS:CHIEF COMPLAINT: Lymphocytosis [...] for 5days straight. Went to ER 02/26. [place] was negative, strep negative. Flunegative. She wasplaced [...] plan. I answered allquestions satisfactorily..Hai Shelton D.O.Medical OncologistGood[place], [place]Referring Provider: ISAAC SHELTON [[id number]]Allergies As of Date: 10/09/2017 Noted Allergy ReactionTOPROL XL (METOPROLOL) 04/11/2016 14 - Other: See Comments Comments: heart races per patientDate Reviewed: 10/09/2017Reviewed by: Denise Witt - Fully AssessedReason for Visit: lymphocytosis [Other] Cmt: follow up per nursePrimary Visit Diagnosis:Lymphocytosis [D72.820] Other Visit Diagnosis:Cervical adenopathy [R59.0]Order(s):CT NECK SOFT TISSUE W IVCON [[id number]] Order #: [id number] FUTURE [] iv contrast (radiology procedure)Inject 1 [...] 1 EachRfl: 0 CT CHEST WO IVCON [[id number]] Order #: [id number] FUTURE CT CHEST W IVCON [[id number]] Order #: [id number] FUTURE iv contrast (radiology procedure)CT Chest W [...] Status:Closed by ISAAC SHELTON DO on 10/10/17Normal [facility] CenterPROGRESSon [id number] ID: [id number]: Isaac Shelton JService: (none)Author Type: PhysicianType: Progress No tesFiled: 10/10/2017 2:10 AMNote Text:PATIENT NAME: Gladis PatelarMRN: [id number] PHYSICIAN: MICHAEL Rubin0 Kelley Segura [facility] [id number] CARE PHYSICIAN: MASOOD Rubin PHYSICIANS:CHIEF COMPLAINT: Lymphocytosis [...] and throat evaluation likely from clinic main [place] physician. We will continue to monitor her [...] for5 days straight. Went to ER 02/26. [place] was negative, strep negative.Flu negative. She was [...] plan.I answered all questions satisfactorily..Hai Shelton D.O.Medical OncologistGlenbeigh Hospital [phone] sLow23.0-32.4CMercy Health Fairfield HospitalComment on above:Result Comment: Unfractionated Heparin Therapeutic [...] laboratory APTT reagent in use throughout the [facility].Performed By: #### PT, PTT, BMP, HFP, LD6, WSR, SEPG, MPASRM, KLFRS ####[place] [address] [place], [place] [phone] Metabolic Panlon 23-21-1708Izjdk gap12 mmol/LNormal9-18 [facility] on above:Performed By: #### PT, PTT, BMP, HFP, LD6, WSR, SEPG, MPASRM, KLFRS ####[place] [address]CWest [place], [place] [phone] mg/dLNormal8.5-10.2CWayne HealthCare [facility] on above:Performed By: #### PT, PTT, BMP, HFP, LD6, WSR, SEPG, MPASRM, KLFRS ####[place] [address] [place], [place] [phone] mmol/OMhy17-709FihwxvfdrOhiohealth Nelsonville Health Center Comment on above:Performed By: #### PT, PTT, BMP, HFP, LD6, WSR, SEPG, MPASRM, KLFRS ####[place] [address] [place], [place] [phone] mmol/PMgnhkb27-05SgaktaitzKettering Health on above:Performed By: #### PT, PTT, BMP, HFP, LD6, WSR, SEPG, MPASRM, KLFRS ####[place] [address] [place], [place] [phone] mg/dLLow0.58-0.96[facility] Comment on above:Performed By: #### PT, PTT, BMP, HFP, LD6, WSR, SEPG, MPASRM, KLFRS ####[place] [address] [place], [place] [phone] (non-black)mL/min/{1.73_m2}NormalKettering Health on above:Result Comment: eGFR (Estimated GFR) Units [...] BMP, HFP, LD6, WSR, SEPG, MPASRM, KLFRS ####[facility] [address]pbatkwtks[address]De [place], [place] [phone] mass conc81 mg/qXStxdlo91-05XewlcclloOhiohealth Nelsonville Health Center Comment on above:Result Comment: The [place] Diabetes Association (ADA) provides guidance for cutoff [...] Standards of Medical Care in Diabetes 2016, [place] [employer] Association. Diabetes Care. 2016.39(Suppl 1).Performed By: #### PT, PTT, BMP, HFP, LD6, WSR, SEPG, MPASRM, KLFRS ####[facility] [address] [place], [place] [phone] molar conc4.4 mmol/L Normal3.7-5.1CWayne HealthCare [facility] on above:Performed By: #### PT, PTT, BMP, HFP, LD6, WSR, SEPG, MPASRM, KLFRS ####[facility] [address] [place], [place] [phone] mmol/WDnd179-895 [facility] on above:Performed By: #### PT, PTT, BMP, HFP, LD6, WSR, SEPG, MPASRM, KLFRS ####[address] Ville [phone] lvyrsttc14 mg/dLNormal7-21[facility] on above:Performed By: #### PT, PTT, BMP, HFP, LD6, WSR, SEPG, MPASRM, KLFRS ####[place] [phone] Functn Panelon 06-72-3616Dixdrcv aminotransferase (ALT)20 U/LNormal7-38[facility] on above:Performed By: #### PT, PTT, BMP, HFP, LD6, WSR, SEPG, MPASRM, KLFRS ####[place] [phone] g/dL Normal3.9-4.9CWayne HealthCare [facility] on above:Performed By: #### PT, PTT, BMP, HFP, LD6, WSR, SEPG, MPASRM, KLFRS ####[facility] [address] [place] [phone] phosphatase (ALP)64 U/CQokbml86-254ZunzkcjonKettering Health on above:Performed By: #### PT, PTT, BMP, HFP, LD6, WSR, SEPG, MPASRM, KLFRS ####[facility] [address] [place] [phone] aminotransferase (AST)14 U/MWvdhix82-58KqhjgbvgmKettering Health on above:Performed By: #### PT, PTT, BMP, HFP, LD6, WSR, SEPG, MPASRM, KLFRS ####[address] [phone] (total)0.3 mg/dLNormal0.2-1.3CWayne HealthCare [facility] on above:Performed By: #### PT, PTT, BMP, HFP, LD6, WSR, SEPG, MPASRM, KLFRS ####[place] [address] [place], [place] [phone],Conjugated <0.2Normal<0.2CWay[facility] on above:Performed By: #### PT, PTT, BMP, HFP, LD6, WSR, SEPG, MPASRM, KLFRS ####[facility] [address] AvDylan Ville [phone] g/dLNormal6.3-8.0 [facility] on above:Performed By: #### PT, PTT, BMP, HFP, LD6, WSR, SEPG, MPASRM, KLFRS ####[place] [phone]/Cope,Free,Seron 10-06-2017K/L Ratio, Serum1.53Mutc2.26-1.65[facility] on above:Performed By: #### PT, PTT, BMP, HFP, LD6, WSR, SEPG, MPASRM, KLFRS ####[place] [address], [place] [phone], Free, Serum 22.5 mg/LHigh3.30-19.40[facility] on above:Result Comment: Rarely, increased serum free light chains values may not be detected due to antigenexcess phenomenon. Results should always be correlated with other laboratory results and clinical findings.Performed By: #### PT, PTT, BMP, HFP, LD6, WSR, SEPG, MPASRM, KLFRS ####[place] [address] [place], [place] [phone], Free, Serum12.3 mg/LNormal5.7-26.3 [facility] on above:Result Comment: Rarely, increased serum free light chains values may not be detected due to antigenexcess phenomenon. Results should always be correlated with other laboratory results and clinical findings.Performed By: #### PT, PTT, BMP, HFP, LD6, WSR, SEPG, MPASRM, KLFRS ####[facility] [place], [place] [phone] 47-37-1550XD547 U/JBjvvej229-438RpsfaumjfOhiohealth Nelsonville Health Center Comment on above:Performed By: #### PT, PTT, BMP, HFP, LD6, WSR, SEPG, MPASRM, KLFRS ####[address] [place], [place] [phone] Protein,Blon 33-36-4567AYE InterpretationSEE COMMENT NormalKettering Health on above:Result Comment: Atypical restricted bands are present in the IgG and lambda regions. Consistent with IgG lambda monoclonal gammopathy.Performed By: #### PT, PTT, BMP, HFP, LD6, WSR, SEPG, MPASRM, KLFRS ####[address] [phone] Parminder/Milner Ratio2.07Xxilps8-1SetdlvbvdMercy Health Fairfield Hospital Comment on above:Performed By: #### PT, PTT, BMP, HFP, LD6, WSR, SEPG, MPASRM, KLFRS ####[place] [address] [place], [place] [phone] ResultM protein is present.Critically abnormalNo M protein is identified.[facility] on above:Performed By: #### PT, PTT, BMP, HFP, LD6, WSR, SEPG, MPASRM, KLFRS ####[facility] [address] [place], [place] [phone] Serum ChU044 mg/dLNormal 78-391[facility] on above:Performed By: #### PT, PTT, BMP, HFP, LD6, WSR, SEPG, MPASRM, KLFRS ####[facility]CWest [place], [place] [phone] Serum CjZ3315 mg/oRIevj303-3527 [facility] on above:Performed By: #### PT, PTT, BMP, HFP, LD6, WSR, SEPG, MPASRM, KLFRS ####[place] [address] AveCLisa Ville [phone] Serum OiZ949 mg/rFVfhmqg03-938VnoxfjwfrKettering Health on above:Performed By: #### PT, PTT, BMP, HFP, LD6, WSR, SEPG, MPASRM, KLFRS ####[address] AveCLisa Ville [phone] Ndoib6754 mg/vGErtqdn381-0891CfsydrsoxKettering Health on above:Performed By: #### PT, PTT, BMP, HFP, LD6, WSR, SEPG, MPASRM, KLFRS ####[place] [address] [place], [place] [phone] Ylkkno408 mg/qKLbmfds844-391ImbcjzborEast [place] Regional Hospital on above:Performed By: #### PT, PTT, BMP, HFP, LD6, WSR, SEPG, MPASRM, KLFRS ####[place] [address] [place], [place] [phone] ReviewReviewed by Delores Means [place] ([id number])Normal [facility] on above:Performed By: #### PT, PTT, BMP, HFP, LD6, WSR, SEPG, MPASRM, KLFRS ####[place] [address] AveCWest [place], [place] [phone] Electrophor.on 40-02-1576Utjtpsn2.93 g/dLNormal3.37-4.23[facility] on above:Performed By: #### PT, PTT, BMP, HFP, LD6, WSR, SEPG, MPASRM, KLFRS ####[address] [place]ille [phone] 1 Globulin0.16 gm/dLLow0.18-0.31[facility] on above:Performed By: #### PT, PTT, BMP, HFP, LD6, WSR, SEPG, MPASRM, KLFRS ####[place] [phone] 2 Globulin0.80 gm/dLNormal0.52-0.97[facility] on above:Performed By: #### PT, PTT, BMP, HFP, LD6, WSR, SEPG, MPASRM, KLFRS ####[place] [phone] Globulin1.11 gm/dLNormal0.84-1.36[facility] on above:Performed By: #### PT, PTT, BMP, HFP, LD6, WSR, SEPG, MPASRM, KLFRS ####[place] [phone] Globulin1.49 gm/dLHigh0.70-1.44[facility] on above:Performed By: #### PT, PTT, BMP, HFP, LD6, WSR, SEPG, MPASRM, KLFRS ####[address] [phone] COMMENTNormalCWayne HealthCare Main Campus on above:Result Comment: An M protein is identified on protein electrophoresis.See separate immunofixation re port for characterization of the M protein.M protein is present on the background of a polyclonal immunoglobulin population. Quantitation of the M protein may overestimate the amount of M protein present.Performed By: #### PT, PTT, BMP, HFP, LD6, WSR, SEPG, MPASRM, KLFRS ####[facility] [address] [place], [place] [phone] Protein LocationGamma fractionNormalCWayne HealthCare Main Campus on above:Performed By: #### PT, PTT, BMP, HFP, LD6, WSR, SEPG, MPASRM, KLFRS ####[facility] [address] [place], [place] [phone] Ja Concentratn0.18 gm/dL High0.00[facility] on above:Performed By: #### PT, PTT, BMP, HFP, LD6, WSR, SEPG, MPASRM, KLFRS ####[address] [phone] Staff ReviewReviewed by Delores Means MD ([id number])NormalKettering Health on above:Performed By: #### PT, PTT, BMP, HFP, LD6, WSR, SEPG, MPASRM, KLFRS ####[address] [phone] Protein, SPE 7.5 g/dLNormal6.0-8.4CWayne HealthCare [facility] on above:Performed By: #### PT, PTT, BMP, HFP, LD6, WSR, SEPG, MPASRM, KLFRS ####[address] [place], [place] [phone] 10-06-2017 INR Coag RelTime (Bld)1.0 {INR}Normal0.9-1.3CWayne HealthCare [facility] Campus on above:Result Comment: Vitamin K Antagonist (VKA) Therapeutic Range: INR 2 to 3 (Target INR of 2.5)Note: For patients treated with VKA drugs, such as warfarin, the [place] [employer] Chest [employer]icians 2012 Guideline recommends [...] al. Chest 2012, 141:7S-47SNishimura RA, et al. [facility] 2017, 70: 252-289Performed By: #### PT, PTT, BMP, HFP, LD6, WSR, SEPG, MPASRM, KLFRS ####[address] [place] [phone] By: #### VWFPN ####[place] [phone] Sec10.3 secNormal9.7-13.0[facility] on above:Performed By: #### PT, PTT, BMP, HFP, LD6, WSR, SEPG, MPASRM, KLFRS ####[place] 692204[address]Performed By: #### VWFPN ####[place] 692204[address]Remote CBCDIF (for [facility] use only)on 77-00-7644Unz Baso0.12 k/uLHigh<0.11CWay[facility] on above: Performed By: #### RCBCDF ####[address] [place] [phone] Mono0.85 k/uLNormal<0.87[facility] on above:Performed By: #### RCBCDF ####[address] [place] [phone] Neut9.52 k/uL High1.45-7.50[facility] on above:Performed By: #### RCBCDF ####[address] [phone]/100 WBC Auto (Bld)0.9 %NormalKettering Health on above:Performed By: #### RCBCDF ####[address] [phone] DiffNormal [facility] on above:Performed By: #### RCBCDF ####[address] [phone] 10*3/uLNormal<0.46[facility] on above:Performed By: #### RHYS ####[address] [phone]/100 leukocytes0.9 %Normal [facility] on above:Performed By: #### RCSHANNONDF ####[address] [phone] distribution width Auto Ratio (RBC)13.8 %Tiwxrz17.5-15.0 [facility] on above:Performed By: #### RCBCDF ####[place] [address] [place], [place] [phone] (RBC)10*6/uLNormal<0.01[facility] on above:Performed By: #### RCBCDF ####[address] [phone] (RBC)0.0 /100 WBCNormal0 [facility] on above:Performed By: #### RCBCDF ####[address] [place] [phone] (RBC)4.46 10*6/uLNormal3.90-5.20[facility] Comment on above:Performed By: #### RCBCDF ####[place] [phone] (HCT)37.7 %Normal 36.0-46.0[facility] Health CenterComment on above:Performed By: #### RCBCDF ####[place] [phone] mass conc (Bld)12.6 g/mPCixove11.5-15.5CWay[facility] on above:Performed By: #### RCBCDF ####[place] [phone] 10*3/uLNormal1.00-4.00[facility] Health CenterComment on above:Performed By: #### RCBCDF ####[place] [phone]/100 iuuxwizfot27.1 %NormalKettering Health on above:Performed By: #### RCBCDF ####[place] [phone] pGNormal 26.0-34.0[facility] on above:Performed By: #### RCBCDF ####[place] [phone] mass conc (RBC)33.4 g/nNJjwykx59.5-36.0[facility] Comment on above:Performed By: #### RCBCDF ####[place] [address] AvD[address] [place] [phone] kEJhzroh08.0-100.0[facility] on above:Performed By: #### RCBCDF ####[place] [address] [place], [place] [phone]/100 leukocytes6.4 %NormalCentervillement on above:Performed By: #### RCBCDF ####[place] [address]CWest [place], [place] [phone]/100 WBC Auto (Bld)71.7 %NormalKettering Health on above:Performed By: #### RCBCDF ####[place] [address] [place], [place] [phone] mean volume (PMV)10.0 fLNormal9.0-12.7CWayne HealthCare [facility] on above:Performed By: #### RCBCDF ####[place] [address] [place], [place] [phone] 10*3/yTGrbf706-168ItfhwgiqqOhiohealth Nelsonville Health Center Comment on above:Performed By: #### RCBCDF ####[place] [address] [place], [place] [phone] (Leukocytes)13.28 10*3/uLHigh 3.70-11.00[facility] on above:Performed By: #### RCBCDF ####[place] [address] [place], [place] [phone] Rate Westergrenon 56-19-7014Wto Rate Osrhsycasg03 mm/hrHigh0-20 [facility] on above:Performed By: #### PT, PTT, BMP, HFP, LD6, WSR, SEPG, MPASRM, KLFRS ####[place] [address] [place], [place] [phone] Willebrand Diagon 82-08-6382wVLZ65.7 s Fvrgkv45.0-32.4CWayne [facility] on above:Result Comment: Unfractionated Heparin Therapeutic Ranges:Standard [...] laboratory APTT reagent in use throughout the [facility].Performed By: #### VWFPN ####[place] [address] [place], [place] [phone]/VWF Ratio 0.7Normal>0.5CWay[facility] on above:Performed By: #### VWFPN ####[address] [phone]/ADP Yrtptcueq612 CT (sec)High<118[facility] on above:Result Comment: Results are reported as Closure Time (CT) in seconds. Performed By: #### VWFPN ####[address] [phone]/EPI Ielpriepj615 CT (sec)Normal<199 [facility] on above:Result Comment: Results are reported as Closure Time (CT) in seconds.Performed By: #### VWFPN ####[address] [phone] Binding-CBA 118 %Islhfk72-487XczhargruKettering Health on above:Result Comment: This test uses a reagent or kit labeled by the machine rebuilder as research use only a nd it is used per machine rebuilder's instructions. Its performance characteristics were determined by [facility]'s [facility] [place] in a manner consistent with CLIA requirements. This test has not been cleared by the U.S. Food and Drug Administration.Performed By: #### VWFPN ####[facility] [place], [place] [phone] VIII:C Dsjhk183 %Wwndyx02-474VhxwgixojOhiohealth Nelsonville Health Center Comment on above:Performed By: #### VWFPN ####[place] [address] [place], [place] [phone]/VWF Ratio1.0Normal>0.4CWayne [facility] on above:Performed By: #### VWFPN ####[place] [address] [place], [place] [phone](VW) (NOTE)NormalKettering Health on above:Result Comment: Performing Pathologist: Joleen Hector [...] clinical findingsand medication history.Performed By: #### VWFPN ####[place] [address] [place], [place] [phone] AggregNormal dose responseNormalCWayne HealthCare Main Campus on above:Performed By: #### VWFPN ####[place] [address] [place], [place] [phone] Co-Factor 150 %Jdfr73-547AqzmnextaKettering Health on above:Performed By: #### VWFPN ####[place] [address] [place], [place] [phone]/VWF Ratio0.9Normal>0.4CMercy Health Fairfield Hospital Comment on above:Performed By: #### VWFPN ####[address]CWest [place], [place] [phone] Willebrand Ag159 %Xbbxri13-224 [facility] on above:Performed By: #### VWFPN ####[address] [place], [place] [phone] Willebrand MultNormal multimer amount and pattern.NormalKettering Health on above:Result Comment: Reviewed by Joleen Hector M.D.,Ph.D ([id number])This test was developed and its performance characteristics determined by [facility]'s [facility] [place] ([facility]).It has not been cleared or approved by the FDA. [facility] is regulated under CLIA as qualified to perform high-complexity testing.This test is used for clinical purposes. It should not be regarded as investigational or for research.Performed By: #### VWFPN ####[address] AveCWest [place], [place] [phone] 09-25-2017 CNOVOffice Visit (CARDFT) --------GLADIS MICHAEL ([id number]) 1975 [facility] Provider Department09/25/17 10:30 AM JESUS CHEATHAM During your visit today, we recorded the following information about you: PulseRespiration Blood pressure Weight 68/minute 18/minute 139/78 108 kg Height 1.575 Rishi Cheatham MD 09/25/2017 10:54 AM [facility] InstituteBrown[facility] Department of Cardiovascular MedicineOUTPATIENT VISIT DATE 09/25/16OUTPATIENT VISIT TYPEESTABLWAKE [facility]ITALPR[facility] PH[facility]IAN:Joseph Harris DO[address] [facility] [address]Bajzv: [phone]: [phone] F COMPLAINT:Patient presents with:Follow UpHISTORY OF PRESENT ILLNESS:Gladis Michael is a 41 year old female with a past cardiac history ofpalpitations, hypertensive episodes associated with flushing.05/22/2017The patient presents today as a new consult. The patient has previously beencared for by a electrical panel builder in [place]. She has been on pindolol andlisinopril for many years. She apparently did not tolerate metoprolol in thepast. She claims that metoprolol made her heart rate go into wvq781o. Thepatient states that she has episodes off and on of a flushed feeling followedby high bloodpressure readings and dizziness. She also feels her heartracing. She feels this has been worse overthe past 2 weeks. She has hadepisodes like this though for many years. [facility], pharmacologic stress, echo and monitors. Unfortunately Gregory not have any of those records to review. The patient wasseen in the emergency room earlier todayfor epistaxis. She also was [place]he [place] last [place] with a complaint of dizziness. [...] kg (238 lb) SpO2 100% BMI 43.53 kg/n8Hlwlhji: Well appearing, in no acute distress.Eyes: Conjunctiva [...] performed on 08/28/2015 revealed an average heart hirqyv02 bpm. The range was 45-126 bpm. The [...] for years. Patient had negative workup in [place]. Placed onpindolol and lisinopril.4. Non-rheumatic mitral regurgitation, [...] provided to the requesting physician by [facility] or to the requesting physician via U.S. Mail.This document was generated utilizing [employer] dictation. I have reviewed andverified that the contentsof the document are accurate with the exception ofminor grammatical, spelling and punctuation errors.CONTACT INFORMATION:Thank you for allowing us to participate in the care of this very pleasantpatient. Please free to contact us if we can be of any further assistance.Jesus Cheatham MD, FACCRobert and Mary MurrayDepartment of Cardiovascular MedicineThe Jewish Hospitalrt and Vascular Institute[address] [address]Chxkdt: [phone] Referring Provider: JOSEPH HARRIS [[id number]]Allergies As of Date: 09/25/2017 Noted Allergy ReactionTOPROL XL (METOPROLOL) 04/11/2016 14 - Other: See Comments Comments: heart races per patientDateReviewed: 09/25/2017Reviewed by: Jesus Cheatham - Fully AssessedReason for Visit: Follow Up [171]Primary Visit Diagnosis:Essential hypertension [I10] Other Visit Diagnoses:Premature atrial complexes [I49.1] PVC (premature ventricular contraction) [I49.3] Obesity, Class III, BMI 40-49.9 (morbid obesity) ([facility]) [E66.01]Order(s):lisinopril (ZESTRIL, PRINIVIL) 5 mg tabletTake [...] RN 09/25/2017 10:15 AM >> JEROME BYRNES [facility] Sep 25, 2017 10:15 AM Received from: External Pharmacy >> Shane Velasquez RN 09/25/2017 10:16 AM >> JEROME BYRNES [facility] Sep 25, 2017 10:16 AMProblem List [...] Status:Closed by NANI CHEATHAM MD on 09/25/17Normal [facility] CenterPROGRESSon 70-18-5604XKBSKAKNJDZ ID: [id number]: Jesus Petersonervice: (none)Author Type: PhysicianType: Progress N otesFiled: 09/25/2017 10:54 AMNote Text:Heart and Vascular [facility] and [facility] Department of Cardiovascular MedicineOUTPATIENT VISIT DATE 09/25/16OUTPATIENT VISIT TYPEESTABLWAKE [facility]OSPITALPRGEORGIANA [facility] PHYSICIAN:Joseph Harris, DO[address] [place] [address]Xlnlf: [phone]: [phone] COMPLAINT:Patient presents with:Follow UpHISTORY OF PRESENT ILLNESS:Gladis Michael is a 41 year old female with a past cardiac history ofpalpitations, hypertensive episodes associated with flushing.05/22/2017The patient presents today as a new consult. The patient has previouslybeen cared for by a electrical panel builder in [place]. She has been on pindolol andlisinopril for many years. She apparently did not tolerate metoprolol inthe past. She claims that metoprolol made her heart ratego into fji977e. The patient states that she has episodes off and on of a flushedfeeling followed by high blood pressure readings and dizziness. She alsofeels her heart racing. She feels this has been worse over the past 2weeks. She has had episodes like this though for many years. [facility] a cardiac CTA,pharmacologic stress, echo and monitors. Unfortunately I do not have anyof those records to review. The patient was seen in the emergency roomearer today for epistaxis. [place] of [place]. Her workup wasnegative. There was no evidence of any arrhythmia during her workup hereat this emergency room today. Her blood tests were within normal limits.Her troponin was normal. EKG was unremarkable. The patient admits thatshe gets very anxious. She has had problems with this for some time. [facility] [...] kg (238 lb) SpO2 100% BMI 43.53 kg/l0Kfewybl: Well appearing, in no acute distress.Eyes: Conjunctiva [...] for years. Patient had negative workup in [place]. Placedon pindolol and lisinopril.4. Non-rheumatic mitral regurgitation, [...] provided to the requesting physician by [facility] or to the requesting physician via U.S. Mail.This document was generated utilizing [employer] dictation. I have reviewedand verified that the contents of the document are accurate with theexception of minor grammatical, spelling and punctuation errors.CONTACT INFO RMATION:Thank you for allowing us to participate in the care of this very pleasantpatient. Please free to contact us if we can be of any furtherassistance.Jesus Cheatham MD, FACCRobert and Mary MurrayDepartment of Cardiovascular MedicineThe Jewish Hospitalrt and Vascular Institute[address], [place] [address]Lxouqw: [phone] NormalCMercy Health Fairfield HospitalCT-CT Head or Brain w/o Contrast IMPORTon 72-60-3029JQ-CT Head or Brain w/o Contrast IMPORT Images were obtained outside of [facility] [id number]_IDCSIACNNormalOhiohealth Nelsonville Health CenterCNOVSPon 54-90-5194TQWVKD Visit (SP) Office (VEE) --------FERNANDAGLADIS ([id number]) 1975 FDate Time Provider Vctgvnxusm99/28/17 3:15 PM ISAAC SHELTON During your visit today, we recorded the following information about you: Temperature Respiration Blood pressure Weight 98.7 degrees 18/minute 168/82 105.1 kg Height 1.6 VAvalorie Shelton DO 06/07/2017 12:55 AM SignedPATIENT NAME: Gladis PatelarMRN: [id number]: Joseph Harris DO[address] [place] [address]: MASOOD Rubin PHYSICIANS:CHIEF COMPLAINT: Lymphocytosis [...] for5 days straight. Went to ER 02/26. Neshoba was negative, strep negative. Flunegative. She was placed on Azithromycin. Still not improving 03/02 went backto ER.She was vomiting and nausea with persistent fevers to 102. He put jnenifer IV antiobiotic and sent script for Levaquin. [...] racing heart and elevated BP.She previously saw electrical panel builder in [place].She is scheduled for echo. She [...] plan. I answered allquestions satisfactorily..Hai Shelton D.O.Medical OncologistGoodland, [place]Referring Provider: ISAAC SHELTON [[id number]]Allergies As of Date: 06/05/2017 Noted Allergy ReactionTOPROL XL (METOPROLOL) 04/11/2016 14 - Other: See Comments Comments: heart races per patientDate Reviewed: 06/05/2017Reviewed by: Donna Favio - Fully AssessedReason for Visit: Lymphocytosis [Other] Cmt: 5 week follow upPrimary Visit Diagnosis:Lymphocytosis [D72.820] Other Visit Diagnosis:Cervical adenopathy [R59.0]Order(s):HIV 1,2 COMBO (AG/AB) [SQHIV12] Order #: [id number] FUTUREDisposition: Return in about 1 year (around 06/05/2018), or [place] f[place]Follow-up and Disposition History RecordedPrescriptions as of 06/05/2017 Sig: PINDOLOL 5 MG TABLET Take 5 mg by mouth twice kwasi* SERTRALINE 50 MG TABLET Take 50 mg by mouth once kwasi* LISINOPRIL 2.5 MG TABLET Take 2.5 mg by mouth once buck*Problem List As Of Date 06/05/2017 Noted Resolved Lymphocytosis [D72.820] INVALID FOR*Cervical adenopathy [R59.0] INVALID FOR*Encounter Status:Closed by ISAAC SHELTON DO on 06/07/17Normal [facility] CenterHIV 12 Combo (Ag/Ab)on 07-75-9063YRT 12 Ag/AbNon ReactiveNormalNon ReactiveOhiohealth Nelsonville Health CenterComment on above:Result Comment: (NOTE)HIV Information: [place] Rev. Code 3701.243(E):This information has been disclosed [...] test results or diagnoses.Performed By: #### HIV12C ####[facility] [address] [place], [place] [address]10940-177-2291FYEXFHAXkg 89-48-2311NMYHZIBJXWR ID: [id number]: Isaac Carrasco: (none)Author Type: PhysicianType: Progress NotesFiled: 06/07/2017 12:55 AMNote Text:PATIENT NAME: Gladis PatelarMRN: [id number] PHYSICIAN: [place] [address]IXSCKDG CARE PHYSICIAN: MASOOD Rubin PHYSICIANS:CHIEF COMPLAINT: Lymphocytosis [...] evaluation likely from clinic main campus physicianDr. HERANNDEZ. We will continue to monitor her only. [...] her throat. She was given augmentinby Dr. Joes. Fever for5 days straight. Went to ER 02/26. Neshoba was negative, strep negative.Flu negat daquan. She [...] and racing heart and elevatedBP.She previously saw electrical panel builder [place].She is scheduled for echo. She [...] answered all questions satisfactorily..Hai Shelton D.O.Medical On [place], OhioNoSelect Medical [facility]Health Rehabilitation [facility] Remote Abs Gran + CBC (for [facility] use only)on 62-97-7354Gmkhy Gran Count10.28 k/uL High1.45-7.50[facility] Health CenterErythrocyte distribution width Auto Ratio (RBC)13.9 %Gpqbfw33.5-15.0[facility] Health CenterErythrocytes (RBC)4.91 10*6/uLNormal3.90-5.20[facility] Health CenterHematocrit (HCT)39.7 %Normal 36.0-46.0[facility] Health CenterHemoglobin mass conc (Bld)13.2 g/dLNormal 11.5-15.5CMercy Health Fairfield HospitalMCH26.9 zYYkvmnf46.0-34.0[facility] Perrysburg HospitalHC mass conc (RBC)33.2 g/iLEmvaye57.5-36.0[facility] MCV80.9 eEFatjwa67.0-100.0[facility] Health CenterPlatelet mean volume (PMV) 9.5 fLNormal9.0-12.7CMercy Health Fairfield HospitalPlatelets497 10*3/qITngn881-578 [facility] CenterWBC (Leukocytes)14.20 10*3/uLHigh3.70-11.00[facility] Health CenterCNOVon 16-29-8284CBVGUoiksr Visit (CARDFT) --------GLADIS MICHAEL ([id number]) 1975 [facility] Time Provider Ovnnrdhlae43/14/17 2:00 PM JESUS CHEATHAM During your visit today, we recorded the following information about you: PulseRespiration Blood pressure Weight 69/minute 18/minute 139/77 101.6 kg Height 1.6 Rishi Cheatham MD 05/22/2017 3:15 PM [facility] Department of Cardiovascular MedicineOUTPATIENT VISIT DATE 05/22/17OUTPATIENT VISIT TYPENEWCHRISTUS [facility]IAN:Joseph Harris, DO[address] [place] [address]Imipi: [phone]: [phone] COMPLA INT:Patient presents with:PalpitationsHISTORY OF PRESENT ILLNESS:Gladis Michael is a 41 year old female with a past cardiac history ofpalpitations, hypertensive episodes associated with flushing.The patient presents today as a new consult. The patient has previously beencared for by a electrical panel builder in [place]. She has been on pindolol andlisinopril for many years. [facility] She claims that metoprolol made [...] also was seen int emergency room in [place] last Friday with a complaint of dizziness. Herworkup was negative. There was no evidence of any arrhythmia during her workuphere at this emergency room today. Her blood tests were within normal limits.Her troponin was normal. EKG was unremarkable. The patient admits that shegets very anxious. She has had problems with this for some time. Her [facility] physician has started her on Zoloft. [...] kg (224 lb) SpO2 98% BMI 39.68 kg/e4Zmkwawv: Well appearing, in no acute distress.Eyes: Conjunctiva [...] for years. Patient had negative workup in [place]. Placed onpindolol and lisinopril.4. Non-rheumatic mitral regurgitation, [...] via U.S. Mail.This document was generated utilizing [employer]ation. I have reviewed andverified that the contents of the document are accurate with the exception ofminor grammatical, spelling and punctuation errors.CONTACT INFORMATION:Thank you for allowing us to participate in the care of this very pleasantpatient. Please free to contact us if we can be of any further assistance.Jesus Cheatham MD, [facility] and Mary MurrayLapartment of Cardiovascular MedicineThe Jewish Hospitalrt and Vascular Institute[address] [place], [place] [address]Rcfzkp: [phone] Referring Provider: ISAAC SHELTON [[id number]]Allergies As of Date: 05/22/2017 Noted Allergy ReactionTOPROL XL (METOPROLOL) 04/11/2016 14 - Other: See Comments Comments: heart races per pat ientDate Reviewed: 05/22/2017Reviewed by: Jesus Cheatham - Fully AssessedReason for Visit: Palpitations [79]Primary Visit Diagnosis:Premature atrial complexes [I49.1] Other Visit Diagnoses:PVC(premature ventricular contraction) [I49.3] Palpitations [R00.2] Non-rheumatic mitral regurgitation, mild [I34.0]Order(s):ECHO [[id number]] Order #: [id number]: 1 FUTUREPrescriptions as of 05/22/2017 Sig: PINDOLOL [...] FOR* Status:Closed by NANI CHEATHAM MD on 05/22/17NoThe [facility] 90-37-9994YMHCBQHLPIZ ID: [id number]: Jesus Petersonervice: (none)Author Type: PhysicianType: Progress NotesFiled: 05/22/2017 3:15 PMNote Text:Heart and Vascular InstituteRoblea regional medical center and Mary Murray Department of Cardiovascular MedicineOUTPATIENT VISIT DATE 05/22/17OUTPATIENT VISIT TYPENEWPRIMARY CARE PH YSICIAN:Joseph Harris DO[address] [place] [address]Pkhve: [phone]: [phone] COMPLAINT:Patient presents with:PalpitationsHISTORY OF PRESENT ILLNESS:Gladis Michael josselin 41 year old female with a past cardiac history ofpalpitations, hypertensive episodes associated with flushing.The patient presents today as a new consult. The patient has previouslybeen cared for by a electrical panel builder in [place]. She has been on pindolol andlisinopril for many years. She apparently did not tolerate metoprolol inthe past. She claims that metoprolol made her heart rate go into mne035d. The patient states that she has episodes off and on of a flushedfeeling followed by high blood pressure readings and dizziness. She alsofeels her heart racing. She feels this has been worse over the past 2weeks. She has had episodes like this though for many years. [facility] a cardiac [facility],pharmacologic stress, echo and monitors. Unfortunately I do not have anyof those records to review. The patient was seen in the emergency roomearer today for epistaxis. [place] of [place]. Her workup wasnegative. There was no evidence of any arrhythmia during her workup hereat this emergency room today. Her blood tests were within normal limits.Her troponin was normal. EKG was unremarkable. The patient admits thatshe gets very anxious. She has had problems with this for some time. [facility]. [...] kg (224 lb) SpO2 98% BMI 39.68 kg/f2Zljjcba: Well appearing, in no acute distress.Eyes: Conjunctiva [...] occurring for years.Patient had negative workup in [place]. Placedon pindolol and lisinopril.4. Non-rheumatic mitral reg [...] requesting physicianvia U.S. Mail.Thisdocument was generated utilizing [employer] dictation. I have reviewedand verified that the contents ofthe document are accurate with theexception of minor grammatical, spelling and punctuation errors.CONTACT INFORMATION:Thank you for allowing us to participate in the care of this very pleasantpatient. Please free to contact us if we can be of any furtherassistance.Jesus Cheatham MD, FACCRobertanrobert Hernandez [facility] of Cardiovascular MedicineThe Jewish Hospitalrt and Vascular Institute[address] [address]Ypmuuv: [phone] NoSelect Medical TriHealth Rehabilitation HospitalCNOVSPon 86-27-9862JJPDHPMtndq (SP) Office (HEMASA) --------GLADIS MICHAEL ([id number]) 1975 FDate Time Provider Krguokijsj61/20/17 11:15 AM ISAAC SHELTON During your visit today, we recorded the following information about you: Temperature Pulse Respiration Blood pressure 98.7 degrees 71/minute 18/minute 151/101 Weight Height 103.2 kg 1.6 mTvalorie Shelton DO 05/03/2017 3:18 PM SignedPATIENT NAME: Gladis PatelarMRN: [id number] PHYSICIAN: Joseph Harris DO[address] [place] [address]ECEJUNN CARE PHYSICIAN: MASOOD Rubin PHYSICIANS:CHIEF COMPLAINT: Lymphocytosis [...] neoplasm.Ea r [facility] . We will continue to monitor [...] for5 days straight. Went to ER 02/26. [place] was negative, strep negative. Flunegative. She was [...] I answered all questions satisfactorily..Hai Shelton D.O.Medical OncologistGood[place], [place]Referring Provider: ISAAC SHELTON [[id number]]Allergies As of Date: 04/28/2017 Noted Allergy ReactionTOPROL XL (METOPROLOL) 04/11/2016 14 - Other: See Comments Comments: heart races per patientDate Reviewed: 04/28/2017Reviewed by: Josephine Moscoso - Fully AssessedReason for Visit: Lymphocytosis [Other] Cmt: 3 week follow upPrimary Visit Diagnosis:Lymphocytosis [D72.820]Order(s):CT CHEST WO IVCON [[id number]] Order #: [id number] FUTURE CT CHEST W IVCON [[id number]] Order #: [id number] FUTURE iv contrast (radiology procedure)CT Chest W [...] [address] CT NECK SOFT TISSUE W IVCON [[id number]] Order #: [id number] FUTURE [] iv contrast (radiology procedure)Inject 1 [...] FOR*Encounter Status:Closed by ISAAC SHELTON DO on 05/03/17NoThe [facility] 70-34-8565LACWOYAGFWY ID: [id number]: Isaac SheltonService: (none)Author Type: PhysicianType: Progress NotesFiled: 05/03/2017 3:18 PMNote Text:PATIENT NAME: Gladis DamianarMRN: [id number] PHYSICIAN: [place] [address]MBWCXNZ CARE PHYSICIAN: Jsoeph Harris DOOTHER PHYSICIANS:CHIEF COMPLAINT: Lymphocytosis (primary encounter [...] kidneyfunction, normal total protein and albumin, normal rlcttkufmu87.4, normalkidney function, normal TSH.Family History.Mother has Jak2 positive essential thrombocytosis/polycythemia.Her sisters had similar disease.March 13, 2017 Feb 24 she went to her PCP forEar and throat pain. She had puspockets in her throat. She was given augmentin by Dr. Jose. Fever for5 days straight. Went to ER 02/26. [place] was negative, strep negative.Flu negative. She was [...] answered all questions satisfactorily..Hai Shelton D.O.Medical OncologistSt. Bernards Medical CenterRemote Abs Gran + CBC (for [facility] use only)on 67-43-4993Hotxr Gran Count7.86 k/uLHigh1.45-7.50[facility] Health CenterErythrocyte distribution width Auto Ratio (RBC)13.9 %Ohxknd88.5-15.0 [facility] CenterErythrocytes (RBC)4.82 10*6/uLNormal3.90-5.20[facility] Health CenterHematocrit (HCT)39.2 %Siyfdr56.0-46.0[facility] Hemoglobin mass conc (Bld)13.3 g/qJTckbip48.5-15.5CAdena Health SystemH 27.6 dIHnxuwy57.0-34.0[facility] HospitalHC mass conc (RBC)33.9 g/dL Qrfhuy15.5-36.0[facility] CenterMCV81.3 sDMdgbzm12.0-100.0[facility] Health CenterPlatelet mean volume (PMV)9.4 fLNormal9.0-12.7CMercy Health Fairfield HospitalPlatelets470 10*3/dEDjsc783-403OchoryiatOhiohealth Nelsonville Health CenterWBC (Leukocytes)11.76 10*3/uLHigh3.70-11.00[facility] Health CenterCNOVon 74-23-9135ERZRNzovfu Visit (OTOLMN) --------GLADIS MICHAEL ([id number]) 1975 [facility] Time Provider Puqdhgylbg83/2/17 10:00 AM MARCO ANTONIO HERNANDEZ During your visit today, we recorded the following information about you: Blood pressure Weight Height 142/85 97.5 kg 1.6 Akila Joshi Ma 04/10/2017 10:01 AM SignedTobacco Use: QuitWas smoking cessation packet given? N/A - Patient is a non-smoker or quit ANDgt;1year ago.Was a referral initiated?N/A Patient is a non-smokerCandis Hernandez MD 04/16/2017 1:04 PM SignedGladis [id number] 2016Oto-HNS ConsultationReferring Physician: Dr. Isaac Winston for [...] further evaluated viaultrasound if clinically indicated.LabsCBCRecent Labs 04/07/965976FKF 13.32*HB 13.4HCT 40.2PLT 470*BMPInvalid input(s): PHOSCOAGsPHYSICAL EXAM:Vitals - BP 142/85 (BPSite: Left Arm, BP Position: Sitting, BP Cuff Size:Extra Large Adult) Ht 160 cm (5' 3ANDquot;) Wt 97.5 kg (215 lb) SpO2 98% BMI 38.09 kg/l6Azcfpjiwlzozfw - General Appearance: well developed, well nourished, [...] Dispense: 1 Each; Refill: 0SIGNATURE: Candis Hernandez,MDPAGER: [phone] of SERVICE: April 16, 2017TIME of SERVICE: [...] disease) [K21.9]Or xin(s):POLYSOMNOGRAM (PSG)/HOME SLEEP TEST (HST) [[id number]] Order #: [id number] FUTURE omeprazole (PRILOSEC) 20 mg capsuleTake 1 capsule by mouth once daily for 30 days.Disp: 30 capsuleRfl: 0 CT NECK SOFT TISSUE W IVCON [[id number]] Order #: [id number] FUTURE [] iv contrast (radiology procedure)Inject 1 [...] 04/10/2017 10:01 AM >> SOL JOSHI MA [facility] 2016 10:01 AM Not takingProblem List As Of Date 04/10/2017 Noted Resolved Lymphocytosis [D72.820] INVALID FOR* Cervical adenopathy [R59.0] INVALID FOR*Visit Notes:>> Sol Joshi Ma Meredith Apr 10, 2017 10:01 AM Status: SignedTobacco Use: QA on Request smoking cessation packet given? N/A - Patient [...] guidelines link.Follow-up and Disposition History RecordedEncounter Number: [id number] Status:Closed by CANDIS HERNANDEZ MD on 04/16/17NoThe Surgical Hospital at [facility] 60-87-4000PFRUBPIEMJX ID: [id number]: Candis Salinas: (none)Author Type: PhysicianType: Progress NotesFiled: 04/16/2017 1:04 PMNote Text:Gladis [id number] 22016Oto-HNS ConsultationReferring Physician: Dr. Isaac Winston for [...] further evaluated viaultrasound if clinically indicated.LabsCBCRecent Labs 04/07/011302RSH 13.32*HB 13.4HCT 40.2PLT 470*BMPInvalid input(s): PHOSCOAGsPHYSICAL EXAM:Vitals - BP 142/85 (BP Site: Left Arm, BP Position: Sitting, BP Cuff Size:Extra Large Adult) Ht 160 cm (5' 3 ) Wt 97.5 kg (215 lb) SpO2 98% BMI 38.09 kg/r9Pkghbmwmwhmscn - General Appearance: well developed, well nourished, [...] Dispense: 1Each; Refill: 0SIGNATURE: Candis David, MDPAGER: [phone] of SERVICE: April 16, 2017TIME of SERVICE: 1:01 PMNormalOhiohealth Nelsonville Health CenterCNOVSPon 66-61-5492RPKDBMQaibh (SP) Office (HEMASA) --------GLADIS MICHAEL ([id number]) 1975 FDate Time Provider Pwdfikileb32/30/17 1:45 PM ISAAC SHELTON During your visit today, we recorded the following information about you: Temperature Pulse Respiration Blood pressure 98.5 degrees 75/minute 18/minute 156/106 Weight Height 102.2 kg 1.6 Kassidy Shelton DO 04/11/2017 10:43 AM SignedPATIENT NAME: Gladis ElderRN: [id number] PHYSICIAN: MICHAEL Rubin[address] [facility] [address]FCNBAXK CARE PHYSICIAN: MASOOD Rubin PHYSICIANS:CHIEF COMPLAINT: Lymphocytosis [...] on 04/07/17. Return in about 2 weeks (fmczvw0904/21/2017), or f/u 2 wks.. HPI: This is [...] for5 days straight. Went to ER 02/26. [place] was negative, strep negative. Flunegative. She was [...] I answered all questions satisfactorily..Hai Shelton D.O.Medical OncologistGood[place], [place]Referring Provider: ISAAC SHELTON [[id number]]Allergies As of Date: 04/07/2017 Noted Allergy ReactionTOPROL [...] FOR*Encounter Status:Closed by ISAAC SHELTON DO on 04/11/17NormalCSalem Regional Medical Center 39-46-9613RN420 U/L Caadmc942-339GkkbjwyykOhiohealth Nelsonville Health CenterComment on above:Performed By: #### LD6 ####[facility] Rxwrfjfgxrpe[address] [place], [place] [phone]- [phone] 65-64-5643SPXEPEHWMCY ID: [id number]: Isaac Carrasco: (none)Author Type: PhysicianType: Progress NotesFiled: 04/11/2017 10:43 AMNote Text:PATIENT NAME: Gladis ElderRN: [id number] PHYSICIAN: Joseph Harris DO[address] [facility] [place] [address]KOQFMMF CARE PHYSICIAN: MASOOD Rubin PHYSICIANS:CHIEF COMPLAINT: Lymphocytosis [...] Fever for5 daysstraight. Went to ER 02/26. [place] was negative, strep negative.Flu negative. She was [...] I answered all questions satisfactorily..Hai Shelton D.O.Medical OncologistQuincy Valley Medical Center Cancer Lutheran HospitalCO 95-90-2308ABCKJjvfzo TextNortPhysicians Care Surgical Hospital - Xdqqvkwe[address] [place], [place] [address]Yfjry: [phone]: [facility] - Ijixb[address] [place], [place] [address]Yucad: [phone]: [facility] - Crfdksy7[address] [place], [place] [address]Isuwq: [phone]: Toll Free: [phone] [email or web address] Saad Arredondo M.D., Carlos Gleason M.D.Luiz Berrios M.D.Isaac Shelton D.O..Audrey Jang M.D. FACROSaju A. Rajan, M.D.March 27, 2017[facility] Hospitaljo Michael[address] [facility] [address]Hrve Ms. Michael,You missed your scheduled appointment on 03/27/17. Please call our officeto reschedule. If you need to cancel any future appointments, please call togive us 24 hour notice so that we can offer your appointment to anotherpatient.Sincerely,Isaac Au M.D.NormalOhiohealth Nelsonville Health CenterCT ABD/PEL W IVCONon 61-63-5696NP ABD/PEL W IVCON* * *Final Report* * *DATE OF EXAM: Mar 19 2017 9:29AM [facility] 0530 - CT ABD/PEL W IVCON / [...] any questions regarding this interpretation, please call [phone].If you are unable to reach us at the number above,please feel free to contact [facility] eRadiology at [phone] NormalOhiohealth Nelsonville Health CenterCT CHEST W IVCONon 95-56-9604OV CHEST W IVCON* * *Final Report* * *DATE OF EXAM: Mar 19 2017 9:29AM [facility] 0539 - CT CHEST W IVCON / [...] any questions regarding this interpretation, please call [phone].If you areunable to reach us at the number above,please feel free to contact [facility] eRadiology at [phone] Nelsonville Health CenterCT NECK SOFT TISSUE W IVCONon 69-76-4622OD NECK SOFT TISSUE W IVCON* * *Final Report* * *DATE OF EXAM: Mar 19 2017 9:28AM [facility] 0013 - CT NECK SOFT TISSUE W [...] styloid parapharyngealspace: Fat and muscle planes are normal.Alodize Machine Operator space: Visualized mandible, muscles of mastication, pterygopalatine [...] any questions regarding this interpretation, please call [phone].If you are unable to reach us at the number above,please feel free to contact [facility] eRadiology at [phone] NormalCleAshtabula General HospitalvelandPROGRESSon 45-33-4113CYGBKUQYAXZ ID: [id number]: Sheri Banegas CnmtService: (none)Author Type: (none)Type: Progress NotesFiled: 03/19/2017 9:32 AMNote Text: RADIOLOGY SERVICE PROGRESS NOTESERVICE DATE: 03/19/2017SERVICE TIME: 8:33 AMPATIENT IDENTITY VERIFICATION COMPLETED USING TWO (2) METHODS: Patientconfirmed name and Date of verbally.PATIENT GENDER DATA: .femaleALLERGIES: Reviewed and unchangedMEDICATIONS REVIEWED: Not applicablePATIENT RELEVANT IMPLANT DATA REVIEWED: Not ApplicableCREATININE:CreatinineDate Value Ref Range Wuujqi1403/14/2017 0.59 0.58 - 0.96 mg/dL Final04/11/2016 0.56 (L) 0.58 - 0.96 mg/dLFinal eGFR-All Other RacesDate Value Ref Range Oirbmy4703/14/2017 >60 . FinalComment:eGFR(Estimated GFR) Units of measure: [...] actual GFR. eGFR- AmericanDate Value Ref Range Eaowhi8103/14/2017 >60 Final Reference range (age 0-9 years) [...] found using this link:[email or web address] [email or web address]-%20Diagnostic%20Nuclear%20Medicine%20Procedures.pdfSIGNATURE: Sheri Banegas [facility] PATIENT NAME: Gladis PatelarDATE: March 19, 2017 : 8:33 AM PAGER/CONTACT #:[facility] Metabolic Panelon 36-07-6019Qmbvuvu aminotransferase (ALT)25 U/LNormal7-38 [facility] on above:Performed By: #### RETIC, HREMOP, CMP, TSH, KLFRS, MPASRM, SEPG ####[facility] AveCLisa Ville [id number] g/dLNormal3.9-4.9CWayne HealthCare Main Campus on above:Performed By: #### RETIC, HREMOP, CMP, TSH, KLFRS, MPASRM, SEPG ####[place] [address]CLisa Ville [phone] phosphatase (ALP)60 U/XPdytce00-188IniegxrjjKettering Health on above:Performed By: #### RETIC, HREMOP, CMP, TSH, KLFRS, MPASRM, SEPG ####[place] [address] [address] AveCLisa Ville [phone] gap14 mmol/LNormal9-18[facility] on above:Performed By: #### RETIC, HREMOP, CMP, TSH, KLFRS, MPASRM, SEPG ####[place] [address] [address]CLisa [address] [phone] aminotransferase (AST)18 U/IJhmjif23-17PlokahqtvKettering Health on above:Performed By: #### RETIC, HREMOP, CMP, TSH, KLFRS, MPASRM, SEPG ####[place] [address] AveCLisa Ville [phone] (total)0.7 mg/dLNormal0.2-1.3CWayne [facility]Care [facility] on above:Performed By: #### RETIC, HREMOP, CMP, TSH, KLFRS, MPASRM, SEPG ####[place] [address] [address]CLisa [address] [phone] mg/dLNormal8.5-10.2CWayne HealthCare [facility] on above:Performed By: #### RETIC, HREMOP, CMP, TSH, KLFRS, MPASRM, SEPG ####[place] [address] AveCLisa Ville [phone] mmol/OJkqcwl74-890EpuybhhqiKettering Health on above:Performed By: #### RETIC, HREMOP, CMP, TSH, KLFRS, MPASRM, SEPG ####[place] [address] [address]CL[address] [phone] mmol/PEblwft92-74EjoiffhgbKettering Health on above:Performed By: #### RETIC, HREMOP, CMP, TSH, KLFRS, MPASRM, SEPG ####[place] [address] [address] AvDylan [place] [phone] mg/dLNormal0.58-0.96[facility] Comment on above:Performed By: #### RETIC, HREMOP, CMP, TSH, KLFRS, MPASRM, SEPG ####[place] [address] [address]CLisa [address] [phone] (non-black)mL/min/{1.73_m2}NormalKettering Health on above:Result Comment: eGFR (Estimated GFR) Units [...] RETIC, HREMOP, CMP, TSH, KLFRS, MPASRM, SEPG ####[place] [address] [place] [phone] mass mxyr399 mg/nJYmea60-78PrarulicaOhiohealth Nelsonville Health Center Comment on above:Result Comment: The [place] Diabetes Association (ADA) provides guidance for cutoff [...] Standards of Medical Care in Diabetes 2016, [place] [employer] Association. Diabetes Care. 2016.39(Suppl 1).Performed By: #### RETIC, HREMOP, CMP, TSH, KLFRS, MPASRM, SEPG ####[place] [phone] molar conc4.3 mmol/LNormal 3.7-5.1CMercy Health Fairfield HospitalComment on above:Performed By: #### RETIC, HREMOP, CMP, TSH, KLFRS, MPASRM, SEPG ####[place] [address] [place] [phone] g/dLHigh6.3-8.0[facility] CenterComment on above:Performed By: #### RETIC, HREMOP, CMP, TSH, KLFRS, MPASRM, SEPG ####[place] [address] [place] [phone] mmol/FMxpdgd878-244MwaweytrxOhiohealth Nelsonville Health Center Comment on above:Performed By: #### RETIC, HREMOP, CMP, TSH, KLFRS, MPASRM, SEPG ####[place] [address] [place] [phone] dwcrirga59 mg/dLNormal7-21[facility] Comment on above:Performed By: #### RETIC, HREMOP, CMP, TSH, KLFRS, MPASRM, SEPG ####[place] [address] [address] AveCLisa [address] [phone] Remote Panelon 02-14-8024LXB (Body Surface Area) NegativeNormalNegativeKettering Health on above:Performed By: #### RETIC, HREMOP, CMP, TSH, KLFRS, MPASRM, SEPG ####[place] [address]CLisa [address] [phone] B Core Ab,Total NegativeNormalNegativeKettering Health on above:Performed By: #### RETIC, HREMOP, CMP, TSH, KLFRS, MPASRM, SEPG ####[place] [address] AveCWest [place], [place] [phone] C Ab IA NegativeNormalNegPremier Health on above:Performed By: #### RETIC, HREMOP, CMP, TSH, KLFRS, MPASRM, SEPG ####[place] [address] AveCLisa [address] [phone] Surface Ab,Qual NegativeNormalNegativeKettering Health on above:Result Comment: NEGATIVEPerformed By: #### RETIC, HREMOP, CMP, TSH, KLFRS, MPASRM, SEPG ####[place] [address]CL[address] [phone]/Cope,Free,Seron 03-14-2017K/L Ratio, Serum1.99High 0.26-1.65[facility] on above:Performed By: #### RETIC, HREMOP, CMP, TSH, KLFRS, MPASRM, SEPG ####[place] [address] AveCLisa [place]ille [phone], Free, Serum32.8 mg/LHigh 3.30-19.40[facility] on above:Result Comment: Rarely, increased serum free light chains values may not be detected due to antigen excess phenomenon. Results should always be correlated with other laboratory results and clinical findings.Performed By: #### RETIC, HREMOP, CMP, TSH, KLFRS, MPASRM, SEPG ####[place] [address] AveCWest Glacier, [place] [phone], Free, Serum16.5 mg/LNormal5.7-26.3CWayne HealthCare [facility] Campus on above:Result Comment: Rarely, increased serum free light chains values may not be detected due to antigenexcess phenomenon. Results should always be correlated with other laboratory results and clinical findings. Performed By: #### RETIC, HREMOP, CMP, TSH, KLFRS, MPASRM, SEPG ####[address] AvDylan Ville [phone] Protein,Blon 75-61-9554NBO Parminder/Milner Ratio2.72Rwatsr9-7TnbnrordnMercy Health Fairfield Hospital Comment on above:Performed By: #### RETIC, HREMOP, CMP, TSH, KLFRS, MPASRM, SEPG ####[place] [address] AveCWest [place], [place] [phone] ResultNo M protein is identified.NormalNo M protein is identified.[facility] on above:Performed By: #### RETIC, HREMOP, CMP, TSH, KLFRS, MPASRM, SEPG ####[place] [address] AveCLisa [place]ille [phone] Serum DiA129 mg/iSWaeztu58-246 [facility] on above:Performed By: #### RETIC, HREMOP, CMP, TSH, KLFRS, MPASRM, SEPG ####[facility] AveCWest [place]acier, [place] [phone] Serum DzD5352 mg/jMTukb647-7211ZtokquccbWayne HealthCare Main Campus on above:Performed By: #### RETIC, HREMOP, CMP, TSH, KLFRS, MPASRM, SEPG ####[facility] AveCWest Glacier, [place] [phone] Serum QyE904 mg/rVQunzti16-261BvzyqncksKettering Health on above:Performed By: #### RETIC, HREMOP, CMP, TSH, KLFRS, MPASRM, SEPG ####[facility] AveCLisa Ville [phone] Flqar3520 mg/cDPnhn400-0743ByrxqfvhuOhiohealth [facility] Center Comment on above:Performed By: #### RETIC, HREMOP, CMP, TSH, KLFRS, MPASRM, SEPG ####[facility] AveCWest [place], [place] [phone] Khngrc715 mg/eAQyjv495-613CmrjfpkamMercy Health Fairfield Hospital Comment on above:Performed By: #### RETIC, HREMOP, CMP, TSH, KLFRS, MPASRM, SEPG ####[facility] AveCWest Glacier, [place] [phone] ReviewReviewed by Delores Means MD ([id number])[facility] on above:Performed By: #### RETIC, HREMOP, CMP, TSH, KLFRS, MPASRM, SEPG ####[facility] AveCWest Gl[place], [place] [phone] LG LEUK MARKERSon 10-20-6777IO LG LEUK MARKERSAccount CreditedNormalCWayne HealthCare Main Campus on above:Result Comment: CANCELLED PER STAFF REVIEW. [id number] available in [facility] under the Surgical Pathology Test listed in the Laboratory Tab.Performed By: #### LD6 ####[facility] AveCWest Glacier, [place] [phone] (Leukocytes)13.38 10*3/uLHigh3.70-11.00[facility] on above:Performed By: #### LD6 ####[address] [phone] Electrophor.on 80-42-8416Ycptxje3.76 g/dLNormal3.37-4.23[facility] on above:Performed By: #### LD6 ####[address] [phone] 1 Globulin0.19 gm/dLNormal0.18-0.31[facility] on above:Performed By: #### LD6 ####[address] [phone] 2 Globulin0.90 gm/dLNormal0.52-0.97[facility] on above:Performed By: #### LD6 ####[address] [phone] Globulin1.15 gm/dLNormal0.84-1.36[facility] on above:Performed By: #### LD6 ####[address] [phone] Globulin1.80 gm/dLHigh0.70-1.44[facility] on above:Performed By: #### LD6 ####[address] [phone] COMMENTNoSelect Medical TriHealth Rehabilitation Hospital Comment on above:Result Comment: An atypical region of restricted mobility is identified on protein electrophoresis.The atypical region did not stain on accompanying immunofixation and therefore is unlikely to be a monoclonal immunoglobulin.Performed By: #### LD6 ####[address] [phone] Protein LocationN/ANormalCWayne HealthCare Main Campus on above:Performed By: #### LD6 ####[place] [address] AvDe [place], [place] [phone] Ja Concentratn 0.00 gm/dLNormal0.00[facility] on above:Performed By: #### LD6 ####[facility] [place], [place] [phone] Staff ReviewReviewed by Delores Means MD ([id number])Normal [facility] on above:Performed By: #### LD6 ####[place] [address] [place], [place] [phone] Protein, SPE7.8 g/dLNormal6.0-8.4CWayne HealthCare Main Campus on above: Performed By: #### LD6 ####[place] [address] [place], [place] [phone] CBCDIF (for [facility] use only)on 87-56-6140Ovk Baso0.14 k/uLHigh0.00-0.10[facility] CenterAbs Mono0.66 k/uLNormal0.00-0.86[facility] CenterAbs Neut10.25 k/uLHigh1.45-7.50 [facility] CenterBasophils/100 WBC Auto (Bld)1.1 %NormalOhiohealth Nelsonville Health CenterEosinophils0.08 10*3/uLNormal0.00-0.45[facility] Eosinophils/100 leukocytes0.6 %NormalOhiohealth Nelsonville Health CenterErythrocyte distribution width Auto Ratio (RBC)14.0 %Phyhju17.5-15.0[facility] CenterErythrocytes (RBC)5.12 10*6/uLNormal3.90-5.20[facility] Hematocrit (HCT)42.5 %Srlkvn40.0-46.0[facility] CenterHemoglobin mass conc (Bld)14.1 g/lBVezrwq03.5-15.5CMercy Health Fairfield HospitalLymphocytes1.98 10*3/uLNormal1.00-4.00[facility] CenterLymphocytes/100 pwseeavsle42.1 % NormalOhiohealth Nelsonville Health CenterMCH27.5 tBMakmqm75.0-34.0[facility] HospitalHC mass conc (RBC)33.2 g/bATongcc26.5-36.0[facility] MCV83.0 zVTmyyya44.0-100.0[facility] CenterMonocytes/100 leukocytes5.0 %NormalOhiohealth Nelsonville Health CenterNeutrophils/100 WBC Auto (Bld)78.2 %Normal [facility] CenterPlatelet mean volume (PMV)9.6 fLNormal9.0-12.7 [facility] CenterPlatelets609 10*3/eTRvbi861-206UuryhziixOhiohealth Nelsonville Health CenterWBC (Leukocytes)13.11 10*3/uLHigh3.70-11.00[facility] Reticulocyteon 73-96-9636Aip Retic0.073 M/uLNormal0.0180-0.1000[facility] on above:Performed By: #### RETIC, HREMOP, CMP, TSH, KLFRS, MPASRM, SEPG ####[facility] [address] [place], [place] [phone]%1.4 %Normal0.4-2.0[facility] on above:Performed By: #### RETIC, HREMOP, CMP, TSH, KLFRS, MPASRM, SEPG ####[facility] [place], [place] [phone] 93-09-9255Fgjqfbb stimulating hormone (TSH)0.537 uU/mL Normal0.400-5.500[facility] on above:Result Comment: If the patient is , TSH reference range varies by gestational period:First Trimester 0.100-2.500 uU/mLSecond Trimester 0.200-3.000 uU/mLThird Trimester 0.300-3.000 uU/mLReferences: 1. He, Delfina Bassett, Anders EK, et al. Management of Thyroid Dysfunction during and : An Endocrine Society Clinical Practice Guideline. J Clin Endocrinol Metab, 2012:97:1606-1316. 2. Conor ROSAS. Overview of thyroid disease in . UpToDate. 2016. Accessed on November 24, 2015.Performed By: #### RETIC, HREMOP, CMP, TSH, KLFRS, MPASRM, SEPG ####[facility] [address] [place], [place] [phone] 33-14-0396XZXZGFAogcp (SP) Office ([place]) --------GLADIS MICHAEL ([id number]) 1975 [address] Time Provider Etqznroxpi20/5/17 10:00 AM ISAAC SHELTON During your visit today, we recorded the following information about you: Temperature Pulse Respiration Blood pressure 99 degrees 96/minute 18/minute 143/93 Weight Height 103.5kg 1.6 Kassidy Shelton DO 03/14/2017 2:41 PM SignedPATIENT NAME: Gladis ElderRN: [id number] PHYSICIAN: Joseph Harris DO[address] [facility] [address]WQXMOJI CARE PHYSICIAN: MASOOD Rubin PHYSICIANS:CHIEF COMPLAINT: Lymphocytosis [...] W/INTERP-CBC + DIFF (FOR REMOTE [facility] USE)-KAPPA/COPE,FREE,SER-MONOCLONAL PROT BLD W/INTERP-HEP REMOTE PANEL BL-iv [...] three weeks now.Had few ER visits at [place] last year for LUQ pain and hadCT [...] for5 days straight. Went to ER 02/26. [place] was negative, strep negative. Flunegative. She was [...] I answered all questions satisfactorily..Hai Shelton D.O.Medical OncologistGoodland, [place]Referring Provider: ISAAC SHELTON [[id number]]Allergies As of Date: 03/13/2017 Noted Allergy ReactionTOPROL XL (METOPROLOL) 04/11/2016 14 - Other: See Comments Comments: heart races per patientDate Reviewed: 03/13/2017Reviewed by: Merna Gudino - Fully AssessedReason for Visit: Lymphocytosis [Other] Cmt: follow upPrimary Visit Diagnosis:Lymphocytosis [D72.820]Order(s):CT ABD/PEL W IVCON [5966123] Order #: [id number] FUTURE CT CHEST W IVCON [[id number]] Order #: [id number] FUTURE iv contrast (radiology procedure)CT Chest ABD/PEL-Inject, [...] [address] CT NECK SOFT TISSUE W IVCON [[id number]] Order #: [id number] FUTURE [] iv contrast (radiology procedure)Inject 1 [...] GRADE LEUK MARKERS FC [SQPBLGLY] Order #: [id number] STAFF REVIEW WITH CBC AND DIFF [SQSTREV] Order #: [id number]. #:[id number] COMP METABOLIC PANEL [SQCMP] Order #: [id number] FUTURE TSH BLD [SQTSH] Order #: [id number] FUTURE RETIC COUNT [SQRETIC] Order #: [id number] FUTURE PROTEIN ELECTROPHORESIS W/INTERP [SQSEPG] Order #: [id number] FUTURE CBC + DIFF (FOR REMOTE [facility] USE) [SQRCBCDF] Order #: [id number] FUTURE KAPPA/COPE,FREE,SER [SQKLFRS] Order #: [id number] FUTURE MONOCLONAL PROT BLD W/INTERP [SQMPASRM] Order #: [id number] FUTURE HEP REMOTE PANEL BL [SQHREMOP] Order #: [id number] FUTUREPrescriptions as of 03/13/2017 Sig: PINDOLOL 5 [...] FOR*Encounter Status:Closed by ISAAC SHELTON DO on 03/14/17NormalCSalem Regional Medical Center 71-06-1973QM008 U/L Tneziu292-126DcbiypeddOhiohealth Nelsonville Health CenterComment on above:Performed By: #### LD6 ####[facility] [address]vciq[address] [place], [place] [phone] 24-07-3016QNSQWSBRFAU ID: [id number]: Isaac SheltonService: (none)Author Type: PhysicianType: Progress NotesFiled: 03/14/2017 2:41 PMNote Text:PATIENT NAME: Gladis PatelarMRN: [id number] PHYSICIAN: Joseph Harris DO[address] [facility] [address]HBGZZCF CARE PHYSICIAN: MASOOD Rubin PHYSICIANS:CHIEF COMPLAINT: Lymphocytosis [...] W/INTERP-CBC + DIFF (FOR REMOTE [facility] USE)-KAPPA/COPE,FREE,SER-MO NOCLONAL PROT BLD W/INTERP-HEP REMOTE [...] aboutthree weeks now.Had few ER visits at [place] last year for LUQ pain and had [...] for5 days straight. Went to ER 02/26. [place] was negative, strep negative.Flu negative. Shewas placed [...] I answered all questions satisfactorily..Hai Shelton D.O.Medical OncologistGood[place], OhioNormalCMercy Health Fairfield HospitalRemote Abs Gran + CBC (for [facility] use only)on 54-27-1956Jeujz Gran Count10.95 k/uLHigh1.45-7.50 [facility] CenterErythrocyte distribution width Auto Ratio (RBC)14.0 % Urdoyq81.5-15.0[facility] CenterErythrocytes (RBC)5.04 10*6/uLNormal 3.90-5.20[facility] CenterHematocrit (HCT)41.8 %Viiwfb28.0-46.0 [facility] CenterHemoglobin mass conc (Bld)14.0 g/yYHbwgqh05.5-15.5 [facility] CenterMCH27.8 wTVtbaph33.0-34.0[facility] MCHC mass conc (RBC)33.5 g/oJXkzfbg29.5-36.0[facility] CenterMCV82.9 fL Eajkva65.0-100.0[facility] CenterPlatelet mean volume (PMV)9.3 fLNormal 9.0-12.7CMercy Health Fairfield HospitalPlatelets592 10*3/yDQfpx430-574TclhvaddnOhiohealth Nelsonville Health CenterWBC (Leukocytes)14.22 10*3/uLHigh3.70-11.00[facility] Rev w CBCDIFon 82-37-7427Wnk Baso0.20 k/uLHigh<0.11CWayne HealthCare [facility] on above:Performed By: #### STREV ####[place] [address] [address] [place], [place] [phone] Mono0.76 k/uL Normal<0.87[facility] on above:Performed By: #### STREV ####[place] [address] [address] [place], [place] [phone] Neut11.19 k/uLHigh1.45-7.50[facility] on above: Performed By: #### STREV ####[address] [phone]/100 WBC Auto (Bld)1.4 %Normal [facility] on above:Performed By: #### STREV ####[address] [phone] CommentsSEE COMMENTNormalCWayne HealthCare Main Campus on above: Result Comment: See Staff ReviewPerformed By: #### STREV ####[place] [address] [place], [place] [phone] 10*3/uLNormal<0.46[facility] on above:Performed By: #### STREV ####[place] [address]CWest [place], [place] [phone]/100 leukocytes0.6 %NormalOhiohealth Nelsonville Health Center Comment on above:Performed By: #### STREV ####[place] [address]CWest [place], [place] [phone] distribution width Auto Ratio (RBC)13.6 %Giavft26.5-15.0Centervillement on above: Performed By: #### STREV ####[place] [address]CWest [place], [place] [phone] (RBC)5.19 10*6/uLNormal 3.90-5.20[facility] on above:Performed By: #### STREV ####[place] [address]CLisa [place]ille [phone] (HCT)45.0 %Nhyvxc72.0-46.0Centervillement on above:Performed By: #### STREV ####[place] [address]De [place], [place] [phone] mass conc (Bld)14.1 g/dLNormal 11.5-15.5CWayne HealthCare Main Campus on above:Performed By: #### STREV ####[place] [address]CLisa [place] [phone] 10*3/uLNormal1.00-4.00[facility] on above:Performed By: #### STREV ####[place] [address]CWest [place], [place] [phone]/100 sxuqgzjzwx47.5 %Normal [facility] on above:Performed By: #### STREV ####[place] [address]CLisa [place] [phone] zEUtwlhy36.0-34.0[facility] on above: Performed By: #### STREV ####[address] AvDylan Ville [phone] mass conc (RBC)31.3 g/eXKpnhqo96.5-36.0 Centervillement on above:Performed By: #### STREV ####[address]Dylan Ville [phone] wTXtrzny74.0-100.0[facility] on above: Performed By: #### STREV ####[place] [phone]/100 leukocytes5.2 %[facility] Hospitalment on above:Performed By: #### STREV ####[place] [phone]/100 WBC Auto (Bld)76.3 %[facility] on above:Performed By: #### STREV ####[place] [phone] (cervix/vaginal)Reviewed by Karon Levin DO ([id number])[facility] on above:Performed By: #### STREV ####[address]Dylan Ville [phone] mean volume (PMV)10.0 fLNormal9.0-12.7CMercy Health Fairfield Hospital Comment on above:Performed By: #### STREV ####[place] [phone] 10*3/kITvvu922-228 [facility] on above:Performed By: #### STREV ####[facility] [address] [place], [place] [phone] Cell MorphSEE COMMENTNoCleveland Clinic Union Hospital on above: Result Comment: UnremarkablePerformed By: #### STREV ####[facility] [place], [place] [phone] ReviewSEE COMMENTNoCleveland Clinic Union Hospital on above:Result Comment: Neutrophilic Leukocytosis Without Left ShiftThrombocytosisPerformed By: #### STREV ####[place] [address] [place], [place] [phone] (Leukocytes)14.66 10*3/uLHigh3.70-11.00[facility] on above:Performed By: #### STREV ####[place] [address] [place], [place] [phone] 02-06-2017 CNOVSPVisit (SP) Office ([place]) --------GLADIS MICHAEL ([id number]) 1975 [facility] Time Provider Department02/06/17 11:15 AM ISAAC SHELTON During your visit today, we recorded the following information about you: Temperature Pulse Respiration Blood pressure 98.6 degrees 66/minute 16/minute 161/102 Weight Height 108.6 kg 1.6 Kassidy Shelton DO 02/07/2017 12:59 AM SignedPATIENT NAME: Gladis ElderRN: [id number] PHYSICIAN: Joseph Harris DO[address] [facility] [address]NDUMFYS CARE PHYSICIAN: Joseph Harris DOOTHER PHYSICIANS:CHIEF COMPLAINT: [...] about three weeks now.Had fewER visits at [place] last year for LUQ pain and had [...] I answered all questions satisfactorily..Hai Shelton D.O.Medical OncologistNoCorydon, [place]Referring Provider: ISAAC SHELTON [[id number]]Allergies As of Date: 02/06/2017 Noted Allergy ReactionTOPROL XL(METOPROLOL) 04/11/2016 14 - Other: See Comments Comments: heart races per patientDate Reviewed: 0 02/06/2017Reviewed by: Richard Leon) Luba - Fully AssessedReason for Visit: Lymphocytosis [Other] Cmt: 9 month follow upReason For Visit History RecordedPrimary Visit Diagnosis:Lymphocytosis [D72.820]Order(s):JAK2 V617F MUTATION [SQJAK2] Order #: [id number] FUTUREDisposition: Return in about 6 month s [...] FOR*Encounter Status:Closed by ISAAC SHELTON DO on 02/07/17NoSelect Medical TriHealth Rehabilitation HospitalJAK2 V617F Mutationon 28-07-8157WOH1 V617F InterpResult: JAK2 V617F Mutation Not DetectedOhioHealth Grant Medical CenterComment on above:Result Comment: Interpretation: The JAK2 V617F Mutation was not detected. The V617F point mutation has been reported in a high percentage of cases of polycythemia vera, approximately half of the cases of essential thrombocythemia and chronic idiopathic myelofibrosis, and in a smaller proportion of other myeloid disorders.(NOTE)Methodology:Following DNA extraction and library construction utilizing theFlightStats Cancer Hotspot Panel v.1 ([employer], [place]), DNA sequencing of gene mutation hotspot regions was performed onthe MiSeq instrument ([employer], [place], [place]). [employer] software([employer], [place], [place]) was used to analyze FASTQ files [...] was developed and its performance characteristicsdetermined by [facility]'s [facility] and[facility] Medicine [place] ([facility]). It has not been cleared orapproved by the FDA. -[facility] is regulated under CLIA as qualified toperform high-complexity testing. This test is used forclinicalpurposes. It should not be regarded as investigational or forresearch.References:Gracy DA, Socrates Squires, Rene R, Roberto Carlos J, Borjose MJ, Kesha Mccullough MM,et al. The 2016 revision to the World Health Organization (WHO)classification of myeloid neoplasms and acute leukemia. Yxaxp0530;127: 2391-405.Magdalene Squires, Jonah R, Adrian JW. Myeloproliferative neoplasms:contemporary diagnosis using histologyand genetics. Funmi Rev ClinOncol 2009;6:627-37.Performed By: #### LD6, JAK2 ####[id number] [place], [place] [phone] Spec TypePeripheral BloodNormalCWayne HealthCare Main Campus on above: Performed By: #### EVANGELISTA6, JAK2 ####[id number] [place], [place] [phone] Path RevReviewed by David Vo M.D., Ph.D ([id number])NormalKettering Health on above:Performed By: #### EVANGELISTA6, JAK2 ####[address] [place] [phone] [id number] U/[id number] Nelsonville Health CenterComment on above:Performed By: #### LD6, JAK2 ####[facility] [address] [place], [place] [phone] [id number] ID: [id number]: Isaac Carrasco: (none)Author Type: PhysicianType: Progress NotesFiled: 02/07/2017 12:59 AMNote Text:PATIENT NAME: Gladis PatelarMRN: [id number] PHYSICIAN: [place] [address]FUVULXB CARE PHYSICIAN: MASOOD Rubin PHYSICIANS:CHIEF COMPLAINT: Lymphocytosis [...] three weeks now.Had few ER visits at [place] lastyear for LUQ pain and had CT [...] answered all questions satisfactorily..Hai Shelton D.O.Medical OncologistN [place], [place]NormalCMercy Health Fairfield HospitalRemote Abs Gran + CBC (for [facility] use only)on 24-66-1315Bynjt Gran Count10.53 k/uLHigh 1.45-7.50[facility] CenterErythrocyte distribution width Auto Ratio (RBC)13.8 %Usadgl88.5-15.0[facility] CenterErythrocytes (RBC)4.88 10*6/uLNormal3.90-5.20[facility] CenterHematocrit (HCT)40.8 %Normal 36.0-46.0[facility] CenterHemoglobin mass conc (Bld)13.6 g/dLNormal 11.5-15.5CMercy Health Fairfield HospitalMCH27.9 aWVszfpk16.0-34.0[facility] HospitalHC mass conc (RBC)33.3 g/kIHsxtmy60.5-36.0[facility] MCV83.6 aGPothpr20.0-100.0[facility] Health CenterPlatelet mean volume (PMV) 9.6 fLNormal9.0-12.7CMercy Health Fairfield HospitalPlatelets448 10*3/gAUoze178-092 [facility] CenterWBC (Leukocytes)14.69 10*3/uLHigh3.70-11.00[facility] Health CenterLDon 90-34-1090CH548 U/KYoyhsi381-721OwvjljuaeOhiohealth Nelsonville Health Center Comment on above:Performed By: #### LD6 ####[facility] Qbyfzeqepqmf70[address] [place], [place] [phone] Abs Gran + CBC (for [facility] use only)on 17-84-7193Vsrij Gran Count8.16 k/uLHigh1.45-7.50[facility] CenterErythrocyte distribution width Auto Ratio (RBC)13.7 %Dvkqbw00.5-15.0 [facility] CenterErythrocytes (RBC)5.16 10*6/uLNormal3.90-5.20[facility] CenterHematocrit (HCT)43.4 %Whqwhz74.0-46.0[facility] Hemoglobin mass conc (Bld)14.3 g/cYEumzyl77.5-15.5CAdena Health SystemH 27.7 uELpevtl79.0-34.0[facility] HospitalHC mass conc (RBC)32.9 g/dL Avymet52.5-36.0[facility] HospitalV84.1 cGVlwnzd44.0-100.0[facility] Health CenterPlatelet mean volume (PMV)9.6 fLNormal9.0-12.7CMercy Health Fairfield HospitalPlatelets481 10*3/bPUixl949-320TbpesryhcOhiohealth Nelsonville Health CenterWBC (Leukocytes)12.17 10*3/uLHigh3.70-11.00[facility] Health CenterCNCOon 95-57-3489RBKKDfqbkq TextNortMaine Medical Center[address] [place] [address]Elgtf: [phone]: [facility] [place], [place] [address]Euonk: [phone]: [address] [address]Gpntu: [phone]: Toll Free: [phone] [email or web address] Saad Arredondo M.D., Carlos Gleason M.D.Luiz Berrios M.D.Isaac Shelton D.O..Denisha Ruiz M.D.Heather Hollingsworth M.D. Julito Salguero M.D..November 28, 2016[place]is [place] [address]Zltz Ms. Michael,Youmissed your scheduled appointment on 11/28/2016. Please call our officeto reschedule. If you need to cancel any future appointments, please call togive us 24 hour notice so that we can offer your appointment to anotherpatient.Sincerely,Isaac Au M.D. NormalOhiohealth Nelsonville Health Center Vital Signs Date TimeVital SignValuePerforming KhmocwwjbIbjzrrnb08-28-8002 12:57-0400Body .02 cmPamela Mariann ASSOCIATE ENTERTAINMENT EDITOR-C Work Phone: [facility]10-01-2025 12:57-0400 Body mass index (BMI) [Ratio]40.6 kg/q9Bwbmki Mariann ASSOCIATE ENTERTAINMENT EDITOR-C Work Phone: [facility]10-01-2025 12:57-0400 Body avpodl432.04 kgPamela Mariann ASSOCIATE ENTERTAINMENT EDITOR-C Work Phone: [facility]04-25-2025 22:00-0400 Heart rate61 /minKaylinn Dokken [facility]04-25-2025 22:00-0532XnR6% (BldA) [Mass fraction]98 %Kaylinn Dokken [facility]04-25-2025 21:30-0400Heart rate66 /minKaylinn Dokken [facility]04-25-2025 21:30-0400 Respiratory rate22 /minKaylinn Dokken [facility]04-25-2025 21:30-9688VzQ6% (BldA) [Mass fraction]97 %Kaylinn Dokken [address] [place], [place] 5259004-25-2025 21:27-0400Heart rate60 /minKaylinn Dokken [address] [place], [place] 5259004-25-2025 21:27-8279BfQ2% (BldA) [Mass fraction]96 %Kaylinn Dokken [address] [place], [place] 5259004-25-2025 20:42-0400 Respiratory rate22 /minKaylinn Dokken [address] [place], [place] 5259004-25-2025 20:42-0400 Diastolic blood udivmhmc17 mm[Hg]Kaylinn Dokken [address] [place], [place] 5259004-25-2025 20:42-0400 Systolic blood gygptbni708 mm[Hg]Kaylinn Dokken [address] [place], [place] 5259004-25-2025 20:42-0400Mean blood bfvjxocy223 mm[Hg]Kaylinn Dokken [address] [place], [place] 5259004-25-2025 19:58-0400Body wcfgxjfovvj86.24 [degF]Kaylinn Dokken [address] [place], [place] 5259004-25-2025 19:58-0400 Diastolic blood dbtmumss78 mm[Hg]Kaylinn Dokken [address] [place], [place] 5259004-25-2025 19:58-0400Heart rate79 /minKaylinn Dokken [address] [place], [place] 5259004-25-2025 19:58-0400 Respiratory rate18 /minKaylinn Dokken [address] [place], [place] 5259004-25-2025 19:58-0400 Systolic blood pglrhcmy763 mm[Hg]Jeffy Das [facility]04-06-2025 13:28-0400Body gljxfu518.02 cmOhio [facility] Hospital04-06-2025 13:28-0400Body mass index (BMI) [Ratio]43.2 kg/g8EeukezjsyOhio State Harding Hospital04-06-2025 13:28-0400Body bpevromjerm37.6 [degF][facility]04-06-2025 13:28-0400Body ecwqac858.78 kgOhio State [facility]ing Hospital04-06-2025 13:28-0400Diastolic blood mm[Hg][facility] 09-12-2024 13:28-0400Heart rate80 /[facility] 09-12-2024 13:28-0400Respiratory rate16 /[facility] 09-12-2024 13:28-9666FrG4% (BldA) [Mass fraction]98 %[facility]04-06-2025 13:28-0400Systolic blood odpsolud957 mm[Hg][facility]04-14-2024 10:14-0400Body zghxby120.02 cmOhio State [facility] Hospital04-14-2024 10:14-0400Body mass index (BMI) [Ratio]43.4 kg/m2 [facility]04-14-2024 10:14-0400Body biyengxupjy27.4 [degF][facility]04-14-2024 10:14-0400Body lmyxpy504.13 kg [facility]04-14-2024 10:14-0400Diastolic blood mm[Hg][facility]04-14-2024 10:14-0400Heart rate72 /min [facility]04-14-2024 10:14-0400Respiratory rate18 /min [facility]04-14-2024 10:14-6520XcN3% (BldA) [Mass fraction]98 %[facility]04-14-2024 10:14-0400Systolic blood njkufbbs046 mm[Hg][facility]05-14-2022 21:00-0400 Body aauxeppgazb13.6 [degF]Mulugeta Daileyell [address] [place], [place] 1053505-14-2022 21:00-0400 Diastolic blood ucbjxfjv43 mm[Hg]Mulugeta Daileyell [address]05-14-2022 21:00-0400Heart rate76 /minKevin Tulio [address] [place], [place] 1053505-14-2022 21:00-0400Mean blood jemvuplq556 mm[Hg]Mulugeta Daileyell [address]05-14-2022 21:00-0400 Respiratory rate18 /minKevin Tulio [address]05-14-2022 21:00-1265GqF7% (BldA) [Mass fraction]97 %Mulugeta Antunez [address] [place], [place] 1053505-14-2022 21:00-0400 Systolic blood mm[Hg]Mulugeta Daileyell [address] [place], [place] 1053505-14-2022 20:00-0400Body .7 [degF]Mulugeta Daileyell [address] [place], [place] 1053505-14-2022 20:00-0400 Diastolic blood hmcotbkm88 mm[Hg]Mulugeta Daileyell [address] [place], [place] 1053505-14-2022 20:00-0400Heart rate72 /minKevin Tulio [address] [place], [place] 1053505-14-2022 20:00-0400Mean blood zznesdtz904 mm[Hg]Mulugeta Daileyell [address] [place], [place] 1053505-14-2022 19:00-0400 Diastolic blood obbjxsxz978 mm[Hg]Mulugeta Tulio [address]05-14-2022 19:00-0400Heart rate70 /minKevin Tulio [address] [place], [place] 5259005-14-2022 19:00-0400Mean blood dyaxrcly369 mm[Hg]Mulugeta Daileyell [address] [place], [place] 5259005-14-2022 19:00-0400 Respiratory rate17 /minKevin Tulio [address] [place], [place] 5259005-14-2022 19:00-0400 Systolic blood mm[Hg]Mulugeta Daileyell [address] [place], [place] 5259005-12-2022 12:00-0400Heart rate63 /minKaylinn Dokken [address] [place], [place] 5259005-12-2022 12:00-0400Mean blood apmlphvn444 mm[Hg]Kaylinn Dokken [address] [place], [place] 5259005-12-2022 12:00-0400 Systolic blood plzzuxzg854 mm[Hg]Kaylinn Dokken [address] [place], [place] 5259005-12-2022 11:30-0400 Diastolic blood efrvrkzx408 mm[Hg]Kaylinn Dokken [address] [place], [place] 5259005-12-2022 11:30-0400Heart rate69 /minKaylinn Dokken [address] [place], [place] 5259005-12-2022 11:30-0400Mean blood yzjbzszf507 mm[Hg]Kaylinn Dokken [address] [place], [place] 5259005-12-2022 11:30-0400 Respiratory rate16 /minKaylinn Dokken [address] [place], [place] 5259005-12-2022 11:30-9830BaX4% (BldA) [Mass fraction]99 %Kaylinn Dokken [address] [place], [place] 5259005-12-2022 11:30-0400 Systolic blood mm[Hg]Kaylinn Dokken [address] [place], [place] 5259005-12-2022 11:00-0400Heart rate68 /minKaylinn Dokken [address] [place], [place] 5259005-12-2022 11:00-0400Mean blood iqazqmli790 mm[Hg]Kaylinn Dokken [address] [place], [place] 5259005-12-2022 11:00-9561QtS5% (BldA) [Mass fraction]100 %Kaylinn Dokken [address] [place], [place] 5259005-12-2022 11:00-0400 Systolic blood fdtwrvfu307 mm[Hg]Kaylinn Dokken [address] [place], [place] 5259005-12-2022 09:30-0400 Hourly RoundingKaylinn Dokken [address] [place], [place] 5259005-12-2022 09:30-0400 Promise to ReturnKaylinn Dokken [address] [place], [place] 5259005-12-2022 08:30-0400 Hourly RoundingKaylinn Dokken [address] [place], [place] 5259005-12-2022 08:30-0400 Promise to ReturnKaylinn Dokken [address] [place], [place] 5259005-12-2022 03:59-0400Body lfwhkjyekji03.06 [degF]Kaylinn Dokken [address] [place], [place] 5259005-12-2022 03:59-0400Heart rate77 /minKaylinn Dokken [facility] Encounters Encounter DateEncounter TypeCare ProviderFacilavita health systemStart: 04-11-2025 End: 63-41-8893qursoqisbhJvcnkb Sue Cramer ASSOCIATE ENTERTAINMENT EDITOR-C Work Phone: [facility]vueStart: 04-11-2025 End: 58-14-2501Nyjyqjb encounter procedureJuedmond Vora [facility] [place] Work Phone: Start: 03-09-2025 End: 23-89-9078fqtckorwucQuanyf Sue Cramer ASSOCIATE ENTERTAINMENT EDITOR-C Work Phone: [facility] Work Phone: Start: 03-09-2025 End: 64-81-3634Mqcjexi encounter procedureJuedmond Vora [facility] Work Phone: Start: 03-09-2025 End: 67-22-4297Oqrhlbc encounter procedureJuedmond Vora [facility] Start: 03-09-2025 End: 55-32-1145gbpnsianmpUvaota Sue Cramer ASSOCIATE ENTERTAINMENT EDITOR-C Work Phone: [facility] Work Phone: Start: 12-14-2024 End: 79-77-2644yeiwdmmuvdMESRMiddletown Hospitaltart: 10-06-2024 End: 10-43-7321naskttfzmyTVBFAvita Health System Galion Hospitaltart: 10-01-2024 End: 11-83-3935Vzpdytvkw department patient visitJeffy Das [facility] Start: 09-12-2024 End: 79-79-9348cgzbwrkzuyOpycsoewdMadison Health Work Phone: Start: 09-12-2024 End: 38-95-2846Ywlsgeb encounter [facility]Un[facility] Work Phone: Start: 04-08-2024 End: 77-85-6386tdqepihnhqTANZIIO [facility] Start: 09-21-2023 End: 13-06-0060bqdpletswwMxjkmymzyMadison Health Work Phone: Start: 09-21-2023 End: 83-53-1984Boaallo encounter procedureUnc [facility] Work Phone: Start: 06-11-2023 End: 40-80-0485ihmxxsazfyAarsbd Braun Other [facility] Other Start: 48-66-2767Izwznkont encounterZoraidaverónicatavia Hernandez [facility] Woodlandstart: 06-10-2023 End: 16-04-8384ktghfkzlxbLmbxmc Braun Other [facility] Other Start: 80-15-6115Siomhr outpatient visit 15 minutes Belle DamonCleveland Clinic Fairview Hospitaltart: 09-22-2022 End: 26-71-0633ojlgmlrvzhLSWSLB YOUNGFacility:S3Qaurg: 85-67-1441oyhpqyrflx KAILYN WAITEFacility:A5Fhrhk: 08-13-2022 End: 59-09-7380xbfpnpgsqsIK TERRI DELANEYFacility:T2Raipe: 08-07-2022 End: 44-43-4904vefzmpossoPOR RAMEY .Facility:Q3Jkhwx: 35-88-6007uyjccllasdHFHLMD CRAMERFacility:O9Wywjd: 03-06-2022 End: 07-81-2300ffhcjtlxftOE SHADE Solitario WESTFacility:W4Urrto: 01-21-2022 End: 15-27-5707jljvlihxaeNZRQMQ CRAMERFacility:A1Rwous: 01-17-2022 End: 76-21-2441iwnvqwaosdGWUJUC CRAMERFacility:P4Krlgq: 01-10-2022 End: 76-87-2066kttclepyjqFF TERRI Lynn RHETTFacility:I2Rlnhz: 38-67-5337Bhtrcrnrl for preprocedural cardiovascular examinationDR GUSTAVO SHERMAN .[facility] Northtart: 10-26-2021 End: 56-50-6187nbyykezrqxJY GUSTAVO SHERMAN .Facility:M2Sqjtk: 10-24-2021 End: 16-80-6338sroouqhnivXM GUSTAVO SHERMAN .Facility:J8Yrnrw: 10-24-2021 End: 68-93-0462Vpuapwgma for preprocedural cardiovascular examinationDR GUSTAVO SHERMAN .Facility:Q7Rpvcl: 10-20-2021 End: 83-07-2926Ephpnvqqc department patient visitMulugeta Antunez [facility] Start: 10-18-2021 End: 75-76-5697Nfvllviwu department patient visitJeffy Das [facility] Start: 09-27-2021 End: 73-02-8144myqtgwwpnmDSODVS CRAMERFacility:D8Hrlkp: 16-32-0875Louboetqubwuc examination normalMarcia Jose Other noMobilligy [employer] Other Start: 34-53-3671Qorpi health examinationMarcia Jose Other noMobilligy [employer] Other Start: 07-01-2018 End: 89-16-6174Vyozgjl encounter procedureDEFAULT PHYSICIANFacility:UTMCStart: 06-30-2018 End: 67-35-4046Ixofwov encounter procedureDEFAULT PHYSICIANFacility:UTMCStart: 10-20-2017 End: 47-09-1091XvqhljvvouEGFUPNN J ADAMOWICZOhiohealth Nelsonville Health CenterStart: 10-09-2017 End: 25-32-1420VxpntzekftDRDWKSJNoé SHELTONOhiohealth Nelsonville Health CenterStart: 10-06-2017 End: 58-82-5050XcsyuudzlhKQQGRHI ADAMOWICZPomerene Hospital: 09-25-2017 End: 11-57-6579OwdnennmtiTUZCRQT ALLAN [facility]: 06-05-2017 End: 28-01-5595NojtumtiayBVMXKKK J ADAMOWICZPomerene Hospital: 05-22-2017 End: 21-79-9212NywxmnovdhBBFFLWR ALLAN [facility]: 04-28-2017 End: 69-00-4624KsafoxwnvzVFLKAGM J ADAMOWICZPomerene Hospital: 04-10-2017 End: 73-19-9053JcfzkvabdbRFDJA KUPomerene Hospital: 04-07-2017 End: 33-35-5961WbbnusydhoIPIWAQG LINAPomerene Hospital: 03-19-2017 End: 45-00-7282ZhhxgpxddiUIRCDSI Rodrigue GONZALEZMERCEDESPomerene Hospital: 03-14-2017 End: 37-31-7864BpvjfwwgncJMUZPPU Rodrigue SHELTONPomerene Hospital: 03-13-2017 End: 87-56-5250TdvuzdsdhdLMMJVYN Rodrigue SHELTONPomerene Hospital: 02-06-2017 End: 76-30-9599LsfjysimiwWGQNFVS Rodrigue SHELTONPomerene Hospital: 01-23-2017 End: 95-53-5113KrioqwbgebWTIUJZV Rodrigue [facility]Hock[facility] Procedures DateProcedureProcedure DetailPerforming ClinicianStart: 01-18-2069Puwuu X-ray of right wristPamela Mariann ASSOCIATE ENTERTAINMENT EDITOR-C Work Phone: Cesarean sectionJeffy Das CholecystectomyAdrianylhitseh Astro Plan of Treatment DateCare ActivityDetailAuthorStart: 84-08-6677Qrqwo X-ray of right wristXR wrist RT min 3V*[facility] Centertart: 95-79-4177NW Wrist - right GE 3 ViewsOhio [facility]ing Hospital Immunizations Immunization DateImmunizationNotesCare VmosjwnvQkxvssoi89-87-2291wmxatbvhv virus vaccine, split virus (incl. purified surface antigen)Belle Jose Other noMobilligy [employer] Other 10522191-32-2809yyoqnsown virus vaccine, unspecified formulationOhio State Harding Hospital10-08-2018influenza virus vaccine, split virus (incl. purified surface antigen)Belle Jose Other [facility] Other 10603325-65-7459pkoixkdde virus vaccine, unspecified formulationOhio State Harding Hospital Payers DatePayer CategoryPayerPolicy [id number] [id number]-[id number]-[id number] 2..1.810745.3.579.[id number] 2..1.241084.3.579.2.44310-80-6315Ubfjtsc6330237 2..1.415230.3.579.2.85749-94-7608Ktwltpq2902186 2..1.364052.3.579.2.96163-66-3171Nwvignf9709410 2..1.695390.3.579.2.64696-32-5254Vxotttc0355390 2..1.304596.3.579.2.69229-38-4746Qlyvtzv1281070 2..1.124666.3.579.2.79624-70-6059Gmsioet1110648 2..1.991450.3.579.2.24364-72-9210Ctmvtlr6688195 2.0.1.795538.3.579.2.96577-41-6452Ksbljpr1589327 2.840.1.422367.3.579.2.44352-33-7563Mbrnizk6734091 2.840.1.475387.3.579.2.61127-16-1552Itysqra6138696 2.0.1.555315.3.579.2.84808-55-2427Jlhkhlo7221108 2.0.1.311968.3.579.2.85807-60-3054Tnnxluy7907107 2.0.1.884630.3.579.2.32378-91-9241Ygvmzrr25099319 2.0.1.884653.3.579.2.49270-08-2311Ouidqjj56474067 2.0.1.270957.3.579.2.50335-65-9580Ldutpjz Health [id number] 89-54-9105Jptu-tce00225442777-05-5872BlxhijzTFF961T2883712-74-7156Pylsnpw [id number] 0s6gy11p-9z85-9s6i-5990-k476b67r2il0Dhhgolu [id number] 132249u6-5d0r-171s-o6dc-07vf8457g3r2Zxrvotv59188609 2..1.711008.3.579.2.531 Social History DateTypeDetailFacilityTobacco smoking statusLancaster Municipal Hospitalex Assigned At BirthFeKettering Health Main Campustart: 23-24-2972Ndlbtvc smoking status NHISNever smoked tobacco (finding)[facility] Centertart: 36-95-7283Pvv Assigned At [facility] CenterFeWayne HealthCare Main Campustart: 09-12-2024 End: 94-95-8184Ldbygkk smoking status NHISEx-smoker (finding)[facility] Centertart: 08-28-2018 End: 64-19-5839ZtsUjbxkl (finding)[facility] HospitalTobacco smoking statusFisher St. [facility] Functional Status GxzhJnpztveiajCdgoaaIjlhvvev22-09-6699Olnseqymzt StatusN/AFisher - [facility] Clinical Notes 10-18-2021 to 03-09-2025 Note Date & NmerHucfBjocltht69-31-9618 Evaluation note* Diagnosis Onset Date Resolution Status Admit Date Mass of right wrist acuteOctober 2024 12:00pmRight carpal tunnel syndromeacuteOctober 2024 12:00pm [facility] Work Phone: [phone]) 694-233410-01-2025 Evaluation note* Diagnosis Onset Date Resolution Status Admit Date Mass of right wrist acuteOctober 2024 12:00pmRight carpal tunnel syndromeacuteOctober 2024 12:00pmMass of right wristacuteNovember 2024 10:00amRight carpal tunnel syndromeacuteNovember 2024 10:00am [facility] Work Phone: 1(667) 224-485305-16-2025 Aubree Michael is a 49-year-old female with [...] Given her preserved EF, stable symptoms, and yfn-cl-qeadhbkcsxob risk profile, CCTA is themost appropriate next [...] She verbalized understanding and agreed with the plan.[facility]04-30-2025 NoteSUBJECTIVE Reason for Visit: Gladis Michael [...] at rest and occasionally (more content not included)...[facility]04-26-2025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
[2025-04-13 09:41] LABS: Hematocrit 39.6 % (36.0-48.0); Hemoglobin 13.6 g/dL (12.0-16.0); Immature Granulocytes Abs Auto 0.03 10^3/uL (0.00-0.03); Immature Granulocytes Pct Auto 0.3 % (0.0-0.5); Lymphocytes Absolute Auto 2.4 10^3/uL (1.2-3.8); Mean Corpuscular HGB Conc 34.3 g/dL (29.9-35.2); Mean Corpuscular Hemoglobin 28.8 pg (26.7-34.0); Mean Corpuscular Volume 83.7 fL (81.0-99.0); Platelet Count 419 10^3/uL (150-450); Red Blood Count 4.73 10^6/uL (4.20-5.40); White Blood Count 9.0 10^3/uL (4.0-11.0)
[2025-04-13 10:42] LABS: Alanine Aminotransferase 35 U/L (14-59); Albumin Globulin Ratio 0.9; Albumin Level 3.6 g/dL (3.4-5.0); Alkaline Phosphatase 52 U/L (46-116); Anion Gap 15.2; Aspartate Amino Transferase 22 U/L (15-37); Blood Urea Nitrogen 12.0 mg/dL (7.0-18.0); Calcium 9.1 mg/dL (8.5-10.1); Carbon Dioxide 26.3 mmol/L (21.0-32.0); Chloride 101 mmol/L (98-107); Cholesterol 208 mg/dL (<=200); Estimated GFR (African America >60 (>=60 mL/min/1.73m^2); Estimated GFR (Non-African Ame >60 (>=60 mL/min/1.73m^2); Free T3 2.62 pg/mL (2.18-3.98); Globulin 4.2 g/dL; Glucose 95 mg/dL (74-106); HDL Cholesterol 47 mg/dL (40-60); Iron 62.0 ug/dL (50.0-170.0); Potassium 3.5 mmol/L (3.5-5.1); Sodium 139 mmol/L (136-145); Thyroid Stimulating Hormone 1.136 uIU/mL (0.358-3.740); Total Protein 7.8 g/dL (6.4-8.2); Triglycerides 176 mg/dL (<=150); VLDL CHOLESTEROL 35.2 mg/dL
== END 2025-04-13 08:30 | disposition home or self-care (01) ==
LOC: LAB 08:30
PROVIDERS: PCP Nurse Practitioner Family; Visit Provider Nurse Practitioner Family
DX: Z01.812 Encounter for preprocedural laboratory examination (principal); Z01.818 Encounter for other preprocedural examination; G56.01 Carpal tunnel syndrome, right upper limb; R22.31 Localized swelling, mass and lump, right upper limb
CPT/HCPCS: 80053; 80061; 82306; 83036; 83525; 83540; 84436; 84443; 84481; 85025; G0463

== ENCOUNTER 2025-04-18 11:06 | Day surgery (SDC) | payer BC, SELFPAY ==
[2025-04-13 09:36] VITALS: BP 115/73; PULSE 56; TEMP 36.2; O2SAT 99; BMI 42.8
--- NOTE | 2025-04-18 06:58 | W.PM.OPNOTE ---
Surgery Operative Note Operative Note Procedure Date: 04/18/25 Time Out Performed: yes Pre-op Diagnosis: Right carpal tunnel syndrome, right hypothenar mass Post-op Diagnosis: same as pre-op Procedures performed: Right carpal tunnel release, right hand mass excision at the hypothenar eminence Anesthesia: MAC and local Primary Surgeon: Luke Vora Complications: None Estimated blood loss (mL): 5 Detailed description of Procedure: OPERATIVE REPORT Gladis Michael 1975 Preoperative Diagnosis: 1) right carpal tunnel syndrome 2) right hand mass at the hypothenar eminence Postoperative Diagnosis: Same Procedure: 1) right carpal tunnel release, open 2) mass excision right hand Surgeon:Luke Vora DO Welding Machine Operator Electron Beam: None OR Staff: See EMR Anesthesiologist: See EMR EBL: Minimal Complications: None Dispostion: PACU in stable condition Indications: Gladis is a 49-year-old female presenting with carpal tunnel syndrome recalcitrant to conservative measures. The procedure is indicated to minimize pain levels and prevent worsening of nerve-related symptoms. After thorough discussion of the risks, benefits, expected outcomes, and alternatives to surgical intervention, the patient agreed to proceed with surgical treatment. Specific risks discussed included, but were not limited to: superficial or deep infection, wound healing complications, DVT/PE, significant bleeding requiring transfusion, damage to named anatomic structures in the immediate area including named neurovascular structures, failure of pain relief, chronic wrist pain, and general risks of anesthesia. The patient voiced understanding and written as well as verbal consent was obtained by myself prior to the procedure. Findings: Hypertrophic transverse carpal ligament, mass Procedure Note: The patient was brought back to the OR and placed supine on the OR table. After successful induction of anesthesia by anesthesia staff, the patient was positioned in the supine position and all bony prominences were padded appropriately. The surgical field was then provisionally cleansed and then prepped and draped in the usual sterile fashion. At this time a time-out was performed, with the correct patient, site, and procedure identified. The universal time out as well as sign your site protocols were followed. Preoperative antibiotics were verified as administered if needed. The anatomic landmarks about the wrist were drawn, and we made a standard mini-open incision in the volar proximal hand. We sharply dissected down to the transverse carpal ligament. Retractors were place and the ligament was fully visualized. The ligament was sharply sectioned and the median nerve visualized. The proximal and distal aspects were released and visualized for complete release. Irrigation was performed in the incision was then closed with simple nylon suture. We then turned our attention to the hypothenar mass which was approximately pinky nail sized. We made an elliptical incision directly over this taking the skin and subcutaneous tissue out as our specimen which was sent for pathology. This did have some fascial attachments and hypertrophic skin that we removed. The subcutaneous tissue appeared benign. Irrigation was performed and then this was closed with simple nylon sutures. The surgical sites were infiltrated using local anesthetic, and the wrist was sterilely cleansed and dressed. The patient was then subsequently awoken and transferred to to PACU in a stable condition. All sponge and needle counts were correct at the end of the case. I was present and participated in all aspects of the procedure. Prognosis: The patient will allowed to WBAT on the wrist, and we will change the dressing in three days. They can do ROM as tolerated. No DVT prophylaxis is indicated for this procedure. Luke Vora, DO Attending Doc Confirm Attending Attestation: Yes
--- OUTSIDE RECORDS SUMMARY | 2025-04-18 11:10 | XMS_ITS | Clinical Summary ---
Author Organization [facility] tem Address [id number] [address] [place] [address] Care Team Providers Care Retort Cooler Name Role Phone Yinka Armstrong MD Primary Care Provider [phone] Allergies No known active allergies Medications MedicationSigDispense QuantityRefillsLast FilledStart DateEnd DateStatus pindolol (VISKEN) 5 mg tablet Take 5 mg by mouth.04/08/2016Active lisinopril (PRINIVIL,ZESTRIL) 5 mg tablet Take 5 mg by mouth.09/25/2017Active sertraline (ZOLOFT) 50 mg tablet Take 50 mg by mouth.04/10/2016Active Active Problems ProblemNoted DateDiagnosed DateHypertrophy tfbhqxb2702/10/2018 Social History Tobacco UseTypesPacks/DayYears UsedDateSmoking Tobacco: FormerCigarettesQuit: 2005Smokeless Tobacco: NeverChildcareAnswerDate RecordedChildcareUnknown 11/19/2018EmploymentAnswerDate VasllbhaQeoschvvlzXlqavdz03/13/2019Purpose - Life AnswerDate RecordedPurpose and direction in ziesXdlrbvl30/11/2021 CommentsUnknownSex and Gender InformationValueDate RecordedSex Assigned at Not on fileLegal KnuLtowee81/02/2018 2:38 PM EDTGender IdentityNot on fileSexual OrientationNot on file Last Filed Vital Signs Vital SignReadingTime TakenCommentsBlood Pressure--Pulse--Temperature-- Respiratory Rate--Oxygen Saturation--Inhaled Oxygen Concentration--Julzrn370.9 kg (248 lb 12.8 oz)04/21/2018 8:56 AM MOCEoddas967 cm (5' 3 )04/21/2018 8:56 AM ESTBody Mass Index44.0704/21/2018 8:56 AM EST Plan of Treatment Health MaintenanceDue DateLast DoneCommentsDepression Zudxivrcx96/05/1988Tobacco Jswvvgarz55/05/1988Adult BMI Ecpdrcxad06/05/1994DTaP,Tdap and Td Vaccines (1 - Tdap)1994Pap Smear1996Influenza Gvttrej8502/07/2025 Medical Devices Not on file Insurance Care Teams Team MemberRelationshipSpecialtyStart DateEnd Yinka Armstrong MD PCP - GeneralFamily Medicine06/25/18
--- OUTSIDE RECORDS SUMMARY | 2025-04-18 11:10 | XMS_ITS | Clinical Summary ---
Author Organization [facility] Healthcare Address [address] [place] [address] Care Team Providers Care Short Order Cook Name Role Phone Yinka Armstrong MD Primary Care Provider [phone] Allergies Active AllergyReactionsCriticalityNoted DateCommentsMetoprololPalpitations,Other ,QmubunbTwa20/03/2016 heart races per patient Medications MedicationSigDispense QuantityRefillsLast FilledStart DateEnd DateStatus lisinopril 20 MG tablet 1 (one) time each day at the same time.Active pindolol (Visken) 5 MG tablet every 12 (twelve) hours.Active sertraline (Zoloft) 50 MG tablet 1 (one) time each day at the same time.Active Active Problems ProblemNoted DateDiagnosed DateAbnormal uterine nncezmua22/26/2023hronic pain 3Generalized anxiety eyycldfc30/26/2023Morbid mmaozcx2212/02/2022Ovarian cyst3Pain in limb3Pelvic and perineal pain12/02/2022 Family History Medical HistoryRelationNameCommentsNo Known ProblemsBrother 1(2)Brain cancer Brother 2No Known ProblemsDaughterLung cancerFatherNo Known ProblemsSister(2)No Known ProblemsSonRelationNameStatusCommentsBrother 1(2)Brother 2DeceasedDaughter AliveFatherDeceasedMotherAliveSister(2)SonAlive Social History Tobacco UseTypesPacks/DayYears UsedDateSmoking Tobacco: FormerCigarettes Smokeless Tobacco: Never Tobacco Cessation:Counseling Given: Not Answered Alcohol UseStandard Drinks/WeekCommentsNot Currently0 (1 standard drink = 0.6 oz pure alcohol)CommentsUnknownSex and Gender InformationValueDate Recorded Sex Assigned at BirthNot on fileLegal ZdjTzkvmd09/15/2023 7:25 PM EDTGender IdentityNot on fileSexual OrientationNot on file Last Filed Vital Signs Vital SignReadingTime TakenCommentsBlood Lkeheocs759/8403/06/2022 12:00 PM EST Pulse--Temperature--Respiratory Rate--Oxygen Saturation--Inhaled Oxygen Concentration--Xygtwh182 kg (243 lb)08/05/2023 1:31 PM BPHYmpvrj364 cm (5' 3 ) 08/05/2023 1:31 PM ESTBody Mass Index43.05008/05/2023 1:31 PM EST Plan of Treatment Health MaintenanceDue DateLast DoneCommentsCT Amvpmwnyadap82/05/1976Colonoscopy 1975Colorectal Cancer Nkosuyvwg98/05/1976FIT-DNA1975FIT1975 FOBT1975 3260Ualjvioapmktt30/05/1976Pap Smear1996Cervical Cancer Zvmbgxqco42/05/2006HPV/Zbkcgi2106/13/20051307Ulccuhlrr65/05/2016COVID-19 Vaccine ( season)/, 09/21/2020, 08/31/2020Influenza Vaccine (#1)/, 03/09/2020, 03/16/2018, Additional history exists Pneumococcal Vaccine: Pediatrics (0 to 5 Years) and At-Risk Patients (6 to 64 Years)Aged OutNo longer eligible based on patient's age to complete this topic Insurance Care Teams Team MemberRelationshipSpecialtyStart DateEnd Yinka Armstrong MD PCP - GeneralFamily Xfgegsny04/25/23
--- OUTSIDE RECORDS SUMMARY | 2025-04-18 11:10 | XMS_ITS | Clinical Summary ---
Author Organization [facility] Address [address] [place] [address] Care Team Providers Care Blocker Hand Name Role Phone Kailyn Aguirre DIMITRY Primary Care Provider [phone] Allergies Active AllergyReactionsCriticalityNoted TdqcKlqquwwhSllxusvsxjAveio21/03/2016 heart races per patient Medications MedicationSigDispense QuantityRefillsLast [...] 90 tablet tive Active Problems ProblemNoted DateDiagnosed KwtnGhoweud17/15/2025Loss of taste09/21/2024hronic painbnormal uterine gusnuzhs58eneralized anxiety lwqtdtzo94/Ovarian cystain in limb elvic and perineal pain06/26/581132/13/2023Essential jgjrvwepgkag91/11/2019 Assessment & Plan (07/23/2023 9:24 AM EST): [...] for hypertension -I will get repeat echo Xvsfbef2307/20/2018Pituitary cyst07/20/2018Sleep apnea Hypertensive qtelniqn66/04/2019Hypertrophy kxlhfzu1802/10/2018Pituitary mass 10/20/2017Obesity, Class III, BMI 40-49.9 (morbid obesity)09/25/2017Cervical ovuqtqykcb32/12/9569Ivqvvzkvtvogt64/03/2016PalpitationsNonrheumatic mitral valve regurgitation Assessment & Plan (07/23/2023 9:13 AM EST): Continues to have palpitations with known MV regurg on beta yandel. Will repeat echo to evaluate for any worsening MV regurg, diastolic dysfunction. Diastolic dysfunction, left ventricle Assessment & Plan (07/23/2023 9:49 AM EST): Currently without fluid overload/ edema at this time with chlorthalidone daily. + RANDALL Will repeat TTE Encounters DateTypeDepartmentCare KvroTlgudihxdgo80/21/2025[facility] [place] [address] [place] [address] Mary Martin, DIMITRY Essential hypertensionfrom [...] file07/31/2023CommentsUnknownSex and Gender InformationValueDate RecordedSex Assigned at UmmtvAgbwcy28/09/2025 9:38 AM EDT Legal QugGkaczr30/30/2022 12:11 AM EDTGender GjqcqyzaRxnptt66/09/2025 9:38 AM EDTSexual OrientationHeterosexual or Yahikmdq42/09/2025 9:38 AM EDT Last Filed Vital Signs Vital SignReadingTime TakenCommentsBlood Ndpiycyx494/65012/14/2024 8:30 AM EDT Ozrcz8559/08/2025 8:30 AM EDTTemperature--Respiratory Xhlx555212/14/2024 8:05 AM EDTOxygen Bbrmawwnzd315%12/14/2024 8:30 AM EDTInhaled Oxygen Concentration-- Rsvacd993 kg (239 lb)10/06/2024 2:11 PM XQYPutald640 cm (5' 3 )10/06/2024 2:11 PM EDTBody Mass Index42.34010/06/2024 2:11 PM EDT Plan of Treatment Health MaintenanceDue DateLast DoneCommentsCT Ytnfcvwnszci83/05/1976Colonoscopy 1975Colorectal Cancer Wfhazsvew07/05/1976FIT-DNA1975FIT1975 FOBT1975 2355Aemqqmctbcwbq19/05/1976Depression Fdglsegsi43/05/1988Hepatitis B Vaccines (1 of 3 - 19+ 3-dose series)1994Pneumococcal Vaccine: Pediatrics (0 to 5 Years) and At-Risk Patients (6 to 64 Years) (1 of 2 - PCV)1994Pap Smear1996Adult Vbekudh2506/13/1997Cervical Cancer Cjafcgyct08/05/2006 HPV/Edtgwi0006/13/20056009Mbwiefnpo59/05/2016COVID-19 Vaccine ( season) , 09/21/2020, 08/31/2020Influenza Vaccine [...] Team MemberRelationshipSpecialtyStart DateEnd Date Kailyn Aguirre CNP [facility] [facility], [place] [address] [facility] - [facility]02/19/23
--- OUTSIDE RECORDS SUMMARY | 2025-04-18 11:11 | XMS_ITS | Clinical Summary ---
Author Organization [facility] Address [address] [place] [id number] Care Team Providers Care Zipper Lining Folder Name Role Phone Joseph Harris Tavia VENTURA Primary Care Provider + [phone] Jesus Cheatham MD Unavailable [phone] Allergies Active AllergyReactionsCriticalityNoted DateCommentsMetoprololOther: See Vylgjbij96/03/2016 heart races per patient Medications MedicationSigDispense QuantityRefillsLast FilledStart DateEnd DateStatus pindolol (VISKEN) 5 mg tablet Take 5 mg by mouth twice daily.04/08/2016Active sertraline (ZOLOFT) 50 mg tablet Take 50 mg by mouth once daily.04/10/2016Active lisinopril (ZESTRIL, PRINIVIL) 5 mg tablet Take 1 tablet by mouth once daily. 90 tablet Active Active Problems ProblemNoted DateDiagnosed DatePituitary mass10/20/2017Obesity, Class III, BMI >= 40 E66.01009/25/2017Cervical yriwttaacb37/12/0459Kflqhadffudwx18/03/2016 Family History RelationStatusCommentsFatherDeceasedMotherAlive Social History Tobacco UseTypesPacks/DayYears UsedDateSmoking Tobacco: FormerCigarettes0.510 05/22/1995 - 05/22/2005Smokeless Tobacco: NeverAlcohol UseStandard Drinks/Week CommentsNo0 (1 standard drink = 0.6 oz pure alcohol)PHQ-2AnswerDate RecordedPHQ- 2 goiom602Area Deprivation IndexAnswerDate RecordedNational Score (1- 100), lower number is lower riskNot on file05/17/2020State Score (1-10), lower number is lower riskNot on file05/17/2020Data from: https://www.neighborhoodatlas.medicine.[facility].edu/. Last address used for calculationNot on file05/17/2020CommentsNoSex and Gender Information ValueDate RecordedSex Assigned at BirthNot on fileLegal HmpQcnrme11/28/2016 1:08 PM ESTGender IdentityNot on fileSexual OrientationNot on file Last Filed Vital Signs Vital SignReadingTime TakenCommentsBlood Ytymesqb441/6599010/20/2017 9:23 AM EDT second attempt 153/861Scphq2447/14/2018 9:23 AM ZHFWmxsdcuegrt89.9 ??C (98.5 ??F)10/20/2017 9:23 AM EDTRespiratory Domn205510/20/2017 9:23 AM EDTOxygen Uqhwvrryek73%10/20/2017 9:23 AM EDTInhaled Oxygen Concentration--Odcsoo795.9 kg (233 lb 6.4 oz)10/20/2017 9:23 AM VOZPnoxgb335.5 cm (5' 2.01 )10/20/2017 9:23 AM EDTBody Mass Index42.68010/20/2017 9:23 AM EDT Plan of Treatment Health MaintenanceDue DateLast DoneCommentsAnxiety Iwrmrzcch04/05/1994Depression Vdnhlxiqv69/05/1994DTaP,Tdap,Td Vaccine (1 - Tdap)1994Hepatitis B Vaccine (1 of 3 - 19+ 3-dose series)1994Cervical Cancer Jcyhwcriv03/05/1997 Mammogram Rjytovgok79/05/2016CT Kbhdmgincddh24/05/2021ologuard (FIT-DNA) 06/13/20201217Wschlzcplcs00/05/2021olorectal Cancer Cskxkigyo84/05/2021Fecal Occult Blood1Lipid Quxuszuqs53/05/4593Vhnzdtwzxxkly02/05/2021Diabetes Nyfyvcojg72/, 03/14/2017, 04/11/2016Covid-19 Vaccine ( - season)2025Influenza Vaccine (#1)2025Hepatitis C Screening Rwntqnmfk45/06/2017HIV GryerjvurWekastila80/28/2017 Procedures Procedure NamePriorityDate/TimeAssociated DiagnosisCommentsBASIC METABOLIC PANEL Otqfuhj0410/06/2017 10:46 AM EDT Lymphocytosis HIV 1/2 COMBO WITH REFLEX TO XCISKMHYRJGIXHQBllsgxh39/28/2017 2:50 PM EST Lymphocytosis Cervical adenopathy HEP REMOTE PANEL FRNrqtlcw84/06/2017 11:12 AM EDT Lymphocytosis from Last 3 Months or Most Recently Relevant to Health Maintenance Results * (ABNORMAL) BASIC METABOLIC PNL (10/06/2017 10:46 AM EDT)ComponentValueRef RangeTest MethodAnalysis TimePerformed AtPathologist WfxgcnrzjFdnkxtj7830 - 99 mg/dL10/06/2017 5:55 PM EDTCBLANCH[facility] MAIN LABORATORYComment: The [place] Diabetes Association (ADA) provides guidance for cutoff [...] Standards of Medical Care in Diabetes 2016, [place] [employer]. Diabetes Care. 2016.39(Suppl 1). DYT635 - 21 mg/dL10/06/2017 5:55 PM EDTCBLANCHARD [facility] Creatinine0.54(L)0.58 - 0.96 mg/dL10/06/2017 5:55 PM EDTCBLAN[facility] PNVFWVOPQWZrjzno048(L)136 - 144 mmol/L10/06/2017 5:55 PM EDTCBLANCH[facility] MA[facility] LABORATORYPotassium4.43.7 - 5.1 mmol/L10/06/2017 5:55 PM EDTCBLANCH[facility] KCXPWRIJWAIpqhupuh34(L)97 - 105 mmol/L10/06/2017 5:55 PM EDT [facility] HELYLSDHNRBC68326 - 30 mmol/L10/06/2017 5:55 PM EDT [facility] LABORATORYAnion Kxx520 - 18 mmol/L10/06/2017 5:55 PM EDT [facility] LABORATORYCalcium9.58.5 - 10.2 mg/dL10/06/2017 5:55 PM EDT [facility] LABORATORYeGFR->6004 5:55 PM EDT [facility] LABORATORYeGFR-All Other Races>60.10/06/2017 5:55 PM EDT [facility] LABORATORYComment: eGFR (Estimated GFR) Units of measure: [...] [facility] Final ResultPerforming OrganizationAddressCity/State/ZIP CodePhone Number [facility] [address] [place] [address] * HIV 1,2 COMBO (AG/AB) (06/05/2017 2:50 PM EST)ComponentValueRef RangeTest MethodAnalysis TimePerformed AtPathologist SignatureHIV 12 Combo (Ag/Ab)Non ReactiveNon Wbjerhnv89/29/2017 11:24 AM ESTKETTERING [facility] Comment: (NOTE) HIV Information: ??[place] Rev. Code 3701.243(E): This information has been [...] [facility] Final ResultPerforming OrganizationAddressCity/State/ZIP CodePhone Number [facility] [address] [place] [address] * HEP REMOTE PANEL BL (03/14/2017 11:12 AM EDT)ComponentValueRef RangeTest MethodAnalysis TimePerformed AtPathologist SignatureHep B Core Ab, Total MduqfdjqYwgelkkj65/06/2017 6:58 PM EDTCSELECT [facility] LABORATORYHep C Antibody OMRkgmpztsOojudunf49/06/2017 6:58 PM EDTCSELECT [facility] GZOZLDUMBMNHqRuNbazbwpzZznshxai95/06/2017 6:58 PM EDTCTHE [facility] LABORATORYHep B Surface Ab, EvzoMyykpfcsRiwrukwz11/06/2017 6:58 PM EDT [facility] LABORATORYComment:NEGATIVESpecimen (Source)Anatomical Location / LateralityCollection Method / VolumeCollection TimeReceived Time Blood specimen (specimen)BLOOD SPECIMEN / Vtojhfm8003/14/2017 11:12 AM EDT 03/14/2017 11:14 AM EDT Narrative Authorizing ProviderResult TypeResult StatusVeto [facility] Final ResultPerforming OrganizationAddressCity/State/ZIP CodePhone Number [facility] [address] [place] [address] from Last 3 Months or Most Recently Relevant to Health Maintenance Insurance Care Teams Team MemberRelationshipSpecialtyStart DateEnd Date Joseph Harris DO PCP - GeneralFamily Medicine07/06/15 Jesus Cheatham MD [address] [phone] Primary Staff PhysicianCardiology08/25/18
--- OUTSIDE RECORDS SUMMARY | 2025-04-18 11:12 | XMS_ITS | CCD ---
Author Organization [facility] Care Team Providers Care Calibrator Barometers Name Role Phone ADAMOWICZ, ISAAC J Unavailable Unavailable ADAMOWICZ, ISAAC J Unavailable Unavailable ADAMOWICZ, ISAAC J Unavailable Unavailable ADAMOWICZ, ISAAC J Unavailable Unavailable ADAMOWICZ, ISAAC J Unavailable Unavailable ADAMOWICZ, ISAAC J Unavailable Unavailable ADAMOWICZ, ISAAC J Unavailable Unavailable ADAMOWICZ, ISAAC J Unavailable Unavailable ADAMOWICZ, ISAAC J Unavailable Unavailable ADAMOWICZ, ISAAC J Unavailable Unavailable CANDIS HERNANDEZ Unavailable Unavailable SHANAE LUNA (AVIONICS MECHANIC) Unavailable Unavailabl e ADAMOWICZ, ISAAC J Unavailable Unavailable ADAMOWICZ, ISAAC J Unavailable Unavailable ADAMOWICZ, ISAAC J Unavailable Unavailable JESUS CHEATHAM Unavailable Unavailab le ADAMOWICZ, ISAAC J Unavailable Unavailable HSANAE LUNA (AVIONICS MECHANIC) Unavailable Unavailabl e SHANAE LUNA (AVIONICS MECHANIC) Unavailable Unavailabl e ADAMOWICZ, ISAAC J Unavailable Unavailable ADAMOWICZ, ISAAC J Unavailable Unavailable JESUS CHEATHAM Unavailable Unavailab JOSEPH Arceo Unavailable Unavailab le ADAMOWICZ, ISAAC J Unavailable Unavailable ADAMOWICZ, ISAAC J Unavailable Unavailable ADAMOWICZ, ISAAC J Unavailable Unavailable SHANAE LUNA (AVIONICS MECHANIC) Unavailable Unavailabl e ADAMOWICZ, ISAAC J Unavailable Unavailable ADAMOWICZ, ISAAC J Unavailable Unavailable PHYSICIAN, DEFAULT Admitting Unavailable PHYSICIAN, DEFAULT Attending Unavailable PHYSICIAN, DEFAULT Admitting Unavailable PHYSICIAN, DEFAULT Attending Unavailable KAILYN WAITE Primary Care Physician [phone] DR GUSTAVO GREWAL Consulting Unavailable KAILYN WAITE [...] KAILYN Attending Unavailable MARIANN, KAILYN Admitting Unavailable MRAIANN, KAILYN Consulting Unavailable MARIANN, KAILYN Consulting Unavailable [...] Referring Unavailable Luke Vora DO Attending Provider [phone] Mariann BUSINESS BANKING REPRESENTATIVE-C, Kailyn Lisette Primary Care Provider Kailyn Waite Lisette Primary Care Unavailable Luke Vora Attending Unavailable Luke Vora Admitting Unavailable Luke Vora DO Attending Provider [phone] Mariann BUSINESS BANKING REPRESENTATIVE-C, Kailyn Knox Primary Care Provider Allergies Allergy ClassificationReported Allergen(s)Allergy TypeDate of OnsetReaction(s) Facility (6 sources)metoprolol; Translations: [METOPROLOL]Drug Jwzwpqr26-79-4534VZU, heart racingSelect Medical [facility] [place] Repository (2 sources)PyridoxalDrug Ifbpqlm39-53-0832[facility] Rep[facility] (3 sources)patient allergy list reviewed by nurse or physiciaPropensity to adverse -75-2055Tbybonj:DoneNort m2M Strategies Other (3 sources)Allergies ReconciledPropensity to adverse reactionsUnknowLiberty Hospital m2M Strategies Other (2 sources)Ciprofloxacin; Translations: [ciprofloxacin]Drug AllergyUnknown (qualifier value)[facility] [place] (1 source)Metoprolol; Translations: [Toprol-XL][facility] Rep[facility] Medications Current Medications MedicationDrug Class(es)DatesSig (Normalized)Sig (Original)acetaminophen 325 mg / oxyCODONE hydrochloride 5 mg oral tablet (2 sources)Opioid AgonistStart: 01-97-6975Xbodolmi 5 mg-325 mg oral tablet 1 tab(s), Oral, q6hr as needed for pain, 12 tab(s), Refill(s) 0, [facility]/pharmacy #[id number], 160, cm, 10/18/21 4:04:00 EDT, Height/Length Dosing, 107, kg, 10/18/21 4:04:00 EDT, Weight Dosing Start Date: 10/18/21 Status: OrderedamLODIPine 5 mg oral tablet (1 source)Dihydropyridine Calcium Channel BlockerStart: 73-79-1880jkbs 1 tablet by mouth once dailyamLODIPine 5 mg Tab 5 mg = 1 tab(s), Oral, Daily, Refills(s) 0 Start Date: 11/22/21 Status: Ordered Repeat number: 1azithromycin 250 mg oral tablet (6 sources)Macrolide AntimicrobialStart: 67-15-9546Jcfswhemyqyi 250 MG as directed Orally 2 tabs po today, then 1 tab daily x 4 more days for 5 Jun, Activedoxycycline hyclate 100 mg oral tablet (2 sources)Tetracycline-class DrugStart: 24-12-0285eqnh 1 tablet by mouth twice dailydoxycycline hyclate 100 mg Tab 100 mg = 1 tab(s), Oral, BID, # 20 tab(s), Refills(s) 0, Pharmacy: [facility]/pharmacy #[id number], 160, cm, 10/18/21 4:04:00 EDT, Height/Length Dosing, 107, kg, 10/18/21 4:04:00 EDT, Weight Dosing Start Date: 10/18/21 Status: Orderedketorolac tromethamine 10 mg oral tablet (1 source)Nonsteroidal Anti-inflammatory Drug, Cyclooxygenase InhibitorStart: 10-20-2021 End: 56-63-9807gfkq 1 tablet by mouth every six hours as needed for pain ketorolac 10 mg Tab 10 mg = 1 tab(s), Oral, q6hr, PRN for pain, X 5 day(s), # 20 tab(s), Refills(s)0, Pharmacy: [facility]/pharmacy #[id number], 160, cm, 10/20/21 18:21:00 EDT, Height/Length Dosing, 107, kg, 10/20/21 18:21:00 EDT, Weight Dosing Start Date: 10/20/21 Stop Date: 10/25/21 Status: Orderedmeclizine hydrochloride 25 mg oral tablet (1 source)AntiemeticStart: 90-14-1192tqsy 1 tablet by mouth three times daily meclizine 25 mg Tab 25 mg = 1 tab(s), Oral, TID, Refills(s) 0 Start Date: 11/22/21 Status: Ordered Repeat number: 1pindolol 5 mg oral tablet (15 sources)beta-Adrenergic BlockerStart: 09-21-2023 End: 69-70-8205osxn 1 tablet by mouth twice dailyPindolol 5 mg tablet Active 10 MG PO Twice daily September 12, 2024 12:33pm Complies with drug therapyStart: 17-95-3766Hgabrase Active MG PO September 21, 2023 12:00amStart: 11-07-2021 Pindolol 10MG Pindolol( 10MG Oral two times daily ) Active -Hx Entry Oral two times daily for 0 *Pick strength-form from [employer] for eRX* Nov, Active Start: 07-64-5036ugsu 2 tablets by mouth twice dailypindolol 5 mg oral tablet 10 mg = 2 tab(s), Oral, BID, Refills(s) 0 Start Date: 05/22/17 Status: Ordered Repeat number: 1Start: 94-61-2356xzsl 1 tablet by mouth twice dailypindolol 5 mg oral tablet 5 mg = 1 tab(s), Oral, BID, Refills(s) 0 Start Date: 05/22/17 Status: OrderedtraMADol hydrochloride 50 mg oral tablet (1 source)Opioid AgonistStart: 96-44-1586mgbh 1 tablet by mouth twice daily as [...] mg oral tablet (4 sources)BenzodiazepineStart: 09-12-2024 End: 36-69-8317teui 1 tablet by mouth twice daily as neededAlprazolam 0.25 mg tablet Discontinued 0.25 MG PO Twice daily as needed September 11, 2024 11:00pm March 09, 2025 11:57amamoxicillin 875 mg / clavulanate 125 mg oral tablet (4 sources)Penicillin-class AntibacterialStart: 09-12-2024 End: 60-62-9170hkha 1 tablet by mouth twice dailyAmoxicillin-Pot Clavulanate 875-125 mg tablet Discontinued 1 TAB PO Twice daily 14 7 0 September 11, 2024 11:00pm March 09, 2025 11:57amchlorthalidone 25 mg oral tablet (12 sources)Thiazide-like DiureticStart: 09-12-2024 End: 17-32-3536Dfwodvruzvtmpo 25 mg tablet Discontinued 12.5 MG PO Daily September 12, 2024 12:33pm March 091:57amStart: 09-21-2023 End: 96-02-9583Cihbjaipjufkkv 25 mg tablet Discontinued MG PO September 20, 2023 11:00pm September 12, 2024 12:35pmStart: 72-12-3526Snscvhlioebsoi Active MG PO September 21, 2023 12:00amChlorthalidone 25 MG 1/2 tablet once a day Active hydrocortisone 10 mg/ml / neomycin 3.5 mg/ml / polymyxin b 73537 unt/ml otic suspension (4 sources)Aminoglycoside Antibacterial, Polymyxin-class Antibacterial, CorticosteroidStart: 09-21-2023 End: 54-71-9228Vzxxrbiu-Polymyxin-Hc 3.5-10,000-1 mg/mL-unit/mL-% drops,suspension Discontinued 3 DROPS EAR-BOTH Three times daily 10 0 September 20, 2023 11:00pm September 12, 2024 12:33pmlisinopril 20 mg oral tablet (17 sources)Angiotensin Converting Enzyme InhibitorStart: 33-43-6439Cfohlmpduh Active MG PO September 21, 2023 12:00amStart: 37-05-1585tdym 1 tablet by mouth once daily in the evening, then take 2 tablets by mouth in the morning, thentake 1 tablet by mouth at bedtimelisinopril 2.5 mg Tab 2.5 mg = 1 tab(s), Oral, qPM, Take 5 mg in the morning and 2.5 mg at bedtime,# 30 tab(s), Refills(s) 0, Pharmacy: [facility]/pharmacy #[id number] Start Date: 11/10/17 Status: OrderedStart: 11-10-2017 take 1 tablet by mouth once dailylisinopril 5 mg Tab 5 mg = 1 tab(s), Oral, Daily, Refills(s) 0 Start Date: 11/10/17 Status: OrderedStart: 07-08-2017 End: 89-62-2337Mcnnnklpxg 20 mg tablet Discontinued MG PO September 20, 2023 11:00pm September 12, 2024 12:35pmpredniSONE 20 mg oral tablet (4 sources)Start: 09-21-2023 End: 67-12-8601jfpu 1 tablet by mouth twice dailyPrednisone 20 mg tablet Discontinued 20 MG PO Twice daily 10 5 0 September 20, 2023 11:00pm September 12, 2024 12:34pmsertraline 50 mg oral tablet (15 sources)Serotonin Reuptake InhibitorStart: 34-52-1009Hfmzoghecn Active MG PO September 21, 2023 12:00amStart: 11-22-2021 End: 58-33-0649Oteyzeoldw 50 mg tablet Discontinued MG PO September 20, 2023 11:00pm September 12, 2024 12:35pmStart: 88-23-2590bfuygrkgzt 100 mg Tab 50 mg = 0.5 tab(s), Oral, Bedtime, Refills(s) 0 Start Date: 11/10/17 Status: OrderedStart: 06-01-8899Grnylelsjp HCl 50MG Sertraline HCl 50MG, # 0.00, 10/14/2012, No Refill. Active for 0 *Pick strength-form from [employer] for eRX* October, Active Problems Active Problems Problem ClassificationProblemDateDocumented DateEpisodic/ChronicAbdominal pain (9 sources)Left lower quadrant pain; Translations: [Left lower quadrant pain] Onset: 78-96-5891DraxtaeeJppnq and chronic tonsillitis (3 sources)Hypertrophy of tonsils; Translations: [Hypertrophy of tonsils]Onset: 74-83-9008WmuoawgIkipd bronchitis (3 sources)Acute bronchitis; Translations: [Acute bronchitis due to other specified organisms]EpisodicAnxiety disorders (12 sources)Generalized anxiety disorder; Translations: [Anxiety disorder]Onset: 07-08-2017 Resolved: 115143-04-3295IibkvlnJmozzynxx infection; unspecified site (2 sources)Other specified bacterial agents as the cause of diseases classified elsewhereEpisodicCardiac dysrhythmias (9 sources)Tachycardia, unspecified; Translations: [Palpitations]Onset: 05-22-2017 Resolved: 73-61-1880XtjyyyjhQndoinxg atherosclerosis and other heart disease (2 sources)Chronic ischemic heart disease, unspecified; Translations: [Chronic ischemic heart disease, unspecified]Onset: 20-43-8868OyesngsMvstcgoq of white blood cells (2 sources)Lymphocytosis (symptomatic); Translations: [Lymphocytosis]Onset: 267536-57-2037UvvrkquFhxoejwlu hypertension (13 sources)Hypertensive disorder; Translations: [Essential (primary) hypertension]Onset: 02-24-2017 Resolved: 511110-05-6503YnboyioPjesw and electrolyte disorders (1 source)Hypokalemia; Translations: [Hypokalemia]Onset: 15-94-4723Giqsblnc Genitourinary symptoms and ill-defined conditions (7 sources)Dysuria; Translations: [Larry hematuria]Onset: 31-98-8060Orkylxny Headache; including migraine (4 sources)Headache; including migraine; Translations: [HEADACHE UNSPECIFIED] Onset: 34-75-1069Adbmiizdhjfw diseases of female pelvic organs (4 sources)Chronic salpingitis; Translations: [Chronic salpingitis]Onset: 74-55-0005VorhxipVhmwdzojqxow diseases of female pelvic organs (3 sources)Acute vaginitis; Translations: [Acute vaginitis]EpisodicMood disorders (1 source)Mood lwfddcil91-05-2356KwrhmkrZciiiauglkg chest pain (6 sources)Chest pain; Translations: [Chest pain, unspecified]Onset: 07-28-2018 EpisodicOther aftercare (1 source)Other long-term (current) drug therapy; Translations: [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]Onset: 43-64-2632ZdqpbeqbBflwp aftercare (3 sources)History and physical examination, follow-up; [...] right leg]Episodic Other endocrine disorders (1 source)Pituitary fbhr14-69-5537PiqbgcxEvjkj female genital disorders (1 source)Abnormal uterine and vaginal bleeding, unspecified; Translations: [ABNORMAL UTERINE VAGINAL BLEED UNS]Onset: 01-09-4358JkafodmCurqv female genital disorders (3 sources)Abnormal uterine bleeding; Translations: [Abnormal uterine and vaginal bleeding, unspecified]ChronicOther female genital disorders (1 source)History of gynecological xfjqdduw86-58-3626CupzblopZofij nervous system disorders (7 sources)Carpal tunnel syndrome of right wrist; Translations: [Carpal tunnel syndrome, right upper limb]66-85-7710UhieztcPibrz non-traumatic joint disorders (3 sources)Ankle instability; Translations: [Other instability, left ankle] EpisodicOther non-traumatic joint disorders (3 sources)Arthralgia of the ankle and/or foot; Translations: [Pain in left ankle and joints of left foot]EpisodicOther nutritional; endocrine; and metabolic disorders (3 sources)Morbid obesity; Translations: [Morbid (severe) obesity due to excess calories]Onset: 75-68-9998BdmdwxuAwzel nutritional; endocrine; and metabolic disorders (3 sources)Body mass index 40+ - severely obese; Translations: [Body mass index (BMI) 40.0-44.9, adult]Onset: 10-61-0180OxbfvnnNnvod nutritional; endocrine; and metabolic disorders (1 source)Wchklaj91-21-9852KpjgdhkPktlg screening for suspected conditions (not mental disorders or infectious disease) (7 sources)Encounter for screening for malignant neoplasm of cervix; Translations: [Encounter for screening mammogram for malignant neoplasm of breast]Onset: 41-46-2142BaitmrrvFsdfc skin disorders (7 sources)Mass of wrist; Translations: [Localized swelling, mass and lump, right upper limb]24-24-2911NqvixxcwIujdr skin disorders (1 source)Localized swelling, mass and lump, right upper limb; Translations: [Localized swelling, mass and lump, right upper limb]Onset: 49-63-5335Vceswbtd Other upper respiratory infections (5 sources)Bacterial sinusitis; Translations: [Chronic sinusitis, unspecified] ChronicOther upper respiratory infections (13 sources)Acute sinusitis, unspecified; Translations: [Acute upper respiratory infection]Onset: 72-47-9823FzffkfiqFkvgwr media and related conditions (8 sources)Acute secretory otitis media; Translations: [Other acute nonsuppurative otitis media, right ear]Onset: 515960-58-5568Zussrvsc Ovarian cyst (3 sources)Cyst of left ovary; Translations: [Unspecified ovarian cyst, left side]Onset: 26-46-8202AoklikpxVyztixna codes; unclassified (3 sources)Postprocedural state finding; Translations: [Other specified postprocedural states]EpisodicSprains and strains (6 sources)Strain of left Achilles tendon; Translations: [Strain of left Achilles tendon, sequela]EpisodicUnclassified (1 source)Unknown / UNK(Unknown)Onset: 83-73-6571Gjtkfytvssan (3 sources)CONTACT W/AND (SUSP) EXPOS COVID-19; Translations: [CONTACT W/AND (SUSP) EXPOS COVID-19]Onset: 01-22-2022 Past or Other Problems Problem ClassificationProblemDateDocumented DateEpisodic/ChronicConditions associated with dizziness or vertigo (3 sources)Dizziness and giddiness; Translations: [Dizziness and giddiness] Onset: 76-79-1394HkjfpzrgZsiqizleuufld and screening for infectious disease (4 sources)Encounter for screening for human papillomavirus (HPV); Translations: [Vaccination given]Onset: 03-16-2018 Resolved: 51-45-4823GurelwoqMyozj and unspecified benign neoplasm (3 sources)Hemangioma of skin and subcutaneous tissue; Translations: [Hemangioma of skin and subcutaneous tissue]Onset: 15-38-1687TfynnecbOnvyh endocrine disorders (3 sources)Disorder of pituitary gland; Translations: [Other disorders of pituitary gland]Onset: 10-31-2017 Resolved: 61-75-0065LnshiktNeexc lower respiratory disease (3 sources)Cough; Translations: [Cough, unspecified]Onset: 07-24-2017 Resolved: 41-25-2092SilfdjbpWcpfi nutritional; endocrine; and metabolic disorders (3 sources)Abnormal weight gain; Translations: [Abnormal weight gain]Onset: 87-09-0120GhquwijlRfimg upper respiratory disease (3 sources)Pain in throat; Translations: [Pain in throat]Onset: 11-03-2018 EpisodicOther upper respiratory disease (3 sources)Bleeding from nose; Translations: [Epistaxis]Onset: 09-29-2017 Resolved: 71-39-3561GlyletyaEjcorruq codes; unclassified (1 source)Family history of malignant neoplasm of breast; Translations: [FAMILY HX MALIG NEOPLASM OF BREAST]Onset: 16-72-7890GdczshznFybvinll codes; unclassified (1 source)Family history of malignant neoplasm of trachea, bronchus and lung; Translations: [FAM HX MALIG NEOPLSM TRACH BRON LNG]Onset: 77-94-2010Cfkkuruj Residual codes; unclassified (1 source)Family history of malignant neoplasm of other organs or systems; Translations: [FAM HX MALIG NEOPLASM OTH ORGN/SYS]Onset: 68-48-1343Nnjemlqz Residual codes; unclassified (1 source)Acquired absence of other specified parts of digestive tract; Translations: [ACQ ABSENCE OTH PART DIGESTV TRACT]Onset: 30-11-4330Dgebsfee Spondylosis; intervertebral disc disorders; other back problems (4 sources)Pain in thoracic spine; Translations: [PAIN IN THORACIC SPINE]Onset: 05-74-6805QigtpdagAsytfgn (5 sources)Syncope and collapse; Translations: [Syncope and collapse]Onset: 67-36-6727IstlogaaKfzrzwpxxpku (1 source)CONTACT W/AND (SUSP) EXPOS COVID-19; Translations: [CONTACT W/AND (SUSP) EXPOS COVID-19]Onset: 51-17-7234Nfowsawagysl (3 sources)Exposure to acute respiratory syndrome coronavirus 2; Translations: [Contact with and (suspected) exposure to COVID-19]Urinary tract infections (3 sources)Urinary tract infectious disease; Translations: [Urinary tract infection, site not specified]Onset: 81-31-8141WahjjtveOyent infection (3 sources)Coxsackie virus disease; Translations: [Coxsackievirus as the cause of diseases classified elsewhere]Onset: 95-68-8163UvrvnqmtGrqcb infection (2 sources)COVID-19 Results Test NameValueInterpretationReference RangeFacilityX-ray reportOrdered By: Renny Long on 51-39-2899Ggcmo reportADENA REGIONAL [facility] [address] [place] [address] XRay Report Signed Patient: Gladis Michael MR#: [id number] : 1975 Acct:[id number] Age/Sex: 49 / F ADM Date: 5 Loc: [facility] Room: Type: REG CLI Attending Dr: Luke [...] Jr., D.OMary 03/09/2025 4:19 PM Dictation Location: [place] [address] Transcribed By: [facility] 03/09/251618 Dictated By: Renny Long Jr, DO 03/09/251618 Signed By: 03/09/25 1619 [facility] 3V*on 29-32-2973ZD wrist RT min 3V*[facility] [address] [place] [address] XRay Report Signed Patient: Gladis Michael MR#: [id number] : 1975 Acct:[id number] Age/Sex: 49 / F ADM Date: 03/09/25 Loc: [facility] Room: Type: [facility] CLI Attending Dr: Luke Vora DO Copies to: Luke Vora DO Ordering Provider: Lkue Vora DO Date of Service: 03/09/25 XR/XR [...] Jr., D.O. 03/09/2025 4:19 PM Dictation Location: [place] [address] Transcribed By: [facility] 03/09/251618 Dictated By: Renny Long Jr, DO 03/09/251618 Signed By: 03/09/25 1619[facility] Physician Hharz95zy 65-16-682786Fqtx Snider, CNP reviewed patient's coronary CTA. I spoke with patient today and informed her of normal result. Tickler entered for 1 year follow up. Patient verbalized understanding.UC HealthCTA HEART CORONARY W IV CONTRAST W OR WO FFRCTon 96-02-2259ZGD HEART CORONARY W IV CONTRAST W OR [...] Waldemar Duarte (more content not included)...Invalid Interpretation CodeUnProtestant Hospital36on 19-83-857736Nrvmlpcqv stress test result from 10/18/2024: Good morning Kraon. Happy Friday. Can you order CTA Heart [...] with patient and made her aware. Order placed.NormalAdena Pike Medical CenterOrders Onlyon 34-32-7038Qzclqc [id number] Gladis Michael 1975 F Date Provider Department Center 10/22/2024 [facility] C[facility]IOLOG[facility] None Family History Problem Relation Age of Onset No Known Problems Mother Cancer Father Cancer Brother Family Status - Relation Status Age at Mother Alive Father Sister Alive Brother DeceasedNormalUniversGuernsey Memorial HospitalOffice Visiton 49-65-2470Ckgxdh-up [id number] Gladis Michael 1975 F Date Provider Department Center 10/06/2024 [facility] MARQUE[facility] CARD [place] [facility] Family History Problem Relation Age of Onset No Known Problems Mother Cancer Father Cancer Brother Family Status - Relation Status Age at Mother Alive Father Sister Alive Brother Level of Service:90702 [place] OFFICE/OUTPATIENT ESTABLISHED LOW MDM 20 [facility] Single Viewon 72-61-8406QF Chest Single ViewExam Date/Time: 10/01/2024 20:31 EDT [...] Blayne Romero DO Transcribed by: RAMANDEEP Technologist: [facility] HEALTHJulisaestebanNationwide Children'S HospitalBMPon 01-60-8075Fldoe gap [Moles/Vol]11 mmol/LNormal6-16[facility] Comment on above:Performed By: #### [id number] #### [facility] [address], [place] [address]Ryexhan [Mass/Vol]9.7 mg/dLNormal8.9-11.1FMcCullough-Hyde Memorial HospitalComment on above:Performed By: #### [id number] #### [facility] [address], [place] [address]Mdcrdvbm [Moles/Vol]101 mmol/NCabikg486-077HxzeyiNationwide Children'S HospitalComment on above:Performed By: #### [id number] #### [facility] [address], [place] [address]VV2 [Moles/Vol]28 mmol/VUbkkpb96-23ZzbtsdNationwide Children'S Hospital Comment on above:Performed By: #### [id number] #### [facility] [address], [place] [address]Jjobcdryhj [Mass/Vol]0.6 mg/dLNormal0.5-1.3FMcCullough-Hyde Memorial HospitalComment on above:Performed By: #### [id number] #### [facility] [address], [place] [address]Ptoaocx [Mass/Vol]112 mg/eZKdmmoi15-406IrbjngNationwide Children'S HospitalComment on above:Performed By: #### [id number] #### [facility] [address], [place] [address]Tzzevbfbt [Moles/Vol]3.2 mmol/LLow3.5-5.3FMcCullough-Hyde Memorial HospitalComment on above:Performed By: #### [id number] #### [facility] [address], [place] [address]Nhbvsx [Moles/Vol]137 mmol/HMebcye945-910AvxuhoNationwide Children'S HospitalComment on above:Performed By: #### [id number] #### [facility] [address], [place] [address]Rqqe nitrogen [Mass/Vol]17 mg/dLNormal5-21[facility] Children'S HospitalComment on above:Performed By: #### [id number] #### [facility] [address], [place] [address]Hcyz nitrogen/Creatinine [Mass ratio]28 No WwqrwMeax17-49GdkdyuNationwide Children'S HospitalComment on above:Performed By: #### [id number] #### [facility] [address], [place] [address]MAF w/ Auto Diffon 11-87-0427Jdfzikvad/100 WBC (Bld)1.4 %Normal 0.0-2.0N[facility] Children'S HospitalComment on above:Performed By: #### [id number] #### [facility] [address], [place] [address]Xesfykumd/Leukocytes Auto (Bld) [Pure # fraction]0.2 E9/LNormal 0.0-0.2FMcCullough-Hyde Memorial HospitalComment on above:Performed By: #### [id number] #### [facility] [address], [place] [address]Bhsjhxdwptu (Bld) [#/Vol]0.2 E9/LNormal0.0-0.5FMcCullough-Hyde Memorial HospitalComment on above:Performed By: #### [id number] #### [facility] [address], [place] [address]Ulnkgkzardy/100 WBC (Bld)1.6 %Normal0.0-8.0N[facility] Children'S HospitalComment on above:Performed By: #### [id number] #### [facility] [address], [place] [address]Zojooopyugs distribution width (RBC) [Ratio]13.4 %Normal 10.9-14.2FMcCullough-Hyde Memorial HospitalComment on above:Performed By: #### [id number] #### [facility] [address], [place] [address]Dxuajjxbfh (Bld) [Volume fraction]38.1 %Strilx69.0-46.0[facility] Children'S HospitalComment on above:Performed By: #### [id number] #### [facility] [address] [place] [address]Klujwlfivp (Bld) [Mass/Vol]13.2 g/nHNcryzs48.0-16.0[facility]'S HospitalComment on above:Performed By: #### [id number] #### [facility] [address] [place] [address]Outfpojtwrl (Bld) [#/Vol]3.9 E9/LNormal1.0-4.0[facility]'S HospitalComment on above:Performed By: #### [id number] #### [facility] [address] [place] [address]Lhqksmoriuy/100 WBC (Bld)30.4 %Ucjfyl13.0-50.0[facility]'S HospitalComment on above:Performed By: #### [id number] #### [facility] [address], [place] [address]AQR (RBC) [Entitic mass]28.1 kjMkzzaw48.0-34.0[facility]'S HospitalComment on above:Performed By: #### [id number] #### [facility] [address] [place] [address] 92165WKSD (RBC) [Mass/Vol]34.5 g/wTBayebz48.4-36.0[facility]'S HospitalComment on above:Performed By: #### [id number] #### [facility] [address] [place] [address] 67504QSN (RBC) [Entitic vol]81.5 sPMrdbee37.0-100.0[facility]S HospitalComment on above:Performed By: #### [id number] #### [facility] [address] [place] [address] 63004Jangkbhkk (Bld) [#/Vol]0.7 E9/LNormal0.2-1.0[facility]S HospitalComment on above:Performed By: #### [id number] #### [facility] [address] [place] [address] 28752Pqdkjmarbtj (Bld) [#/Vol]7.9 E9/LHigh2.0-7.5FMcCullough-Hyde Memorial HospitalComment on above:Performed By: #### [id number] #### [facility] [address] [place] [address] 04222Yvcsdsyxqrh/100 WBC (Bld)60.9 %Ainshg79.0-75.0[facility]S HospitalComment on above:Performed By: #### [id number] #### [facility] [address] [place] [address] 78883Wsdmehad mean volume (Bld) [Entitic vol]8.4 fLNormal6.4-10.8 [facility] HospitalComment on above:Performed By: #### [id number] #### [facility] [address] [place] [address] 00355Lbslfnfiq (Bld) [#/Vol]443.0 E9/JPesrtb033.0-500.0[facility]S HospitalComment on above:Performed By: #### [id number] #### [facility] [address] [place] [address] 88172WRG (Bld) [#/Vol]4.7 E12/LNormal4.3-5.9[facility]S HospitalComment on above:Performed By: #### [id number] #### [facility] [address] [place], [place] [address]OSA corrected for nucl RBC Auto (Bld) [#/Vol]13.0 E9/LHigh 4.0-11.0[facility] CenterComment on above:Performed By: #### [id number] #### [facility] [address] [place], [place] [address]BVXFKRGDOHiezafq By: SYSTEM SYSTEM on 56-16-1863Mvxtasxa HS2.80 pg/mLLow10.10 - 27.10 pg/mLRemisol ChemComment on above:Interpretive Data: The 95% CI (Confidence Interval) PPV (Positive Predictive Value) for myocardial i nfarction in females is 38 pg/mL, in males 51 pg/mL. The results should be used in conjunction withclinical conditions of myocardial infarction. (Access High Sensitivity Troponin I Instructions For Use, [place], January 2018)Anion gap [Moles/Vol]11 mmol/LNormal6 - 16 mEq/LRemisol ChemCalcium [Mass/Vol]9.7 mg/dLNormal8.9 - 11.1 mg/dLRemisol ChemChloride [Moles/Vol]101 mmol/VTmdfjd941 - 111 mmol/LRemisol ChemCO2 [Moles/Vol]28 mmol/CMtwfsx94 - 31 mmol/LRemisol ChemCreatinine [Mass/Vol]0.6 mg/dLNormal0.5 - 1.3 mg/dLRemisol CvyclKCL930 mL/min/1.73 w1Aqhvlm>=59mL/min/1.73 o2Fgezjyi ChemGlucose [Mass/Vol] 112 mg/vKAbevjx95 - 199 mg/dLRemisol ChemMagnesium [Mass/Vol]2.0 mg/dLNormal1.3 - 2.4 mg/dLRemisol ChemPotassium [Moles/Vol]3.2 mmol/LLow3.5 - 5.3 mmol/LRemisol ChemSodium [Moles/Vol]137 mmol/EFekrpa126 - 145 mmol/LRemisol ChemTroponin HS 3.20 pg/mLLow10.10 - 27.10 pg/mLRemisol ChemComment on above:Interpretive Data: The 95% CI (Confidence Interval) PPV (Positive Predictive Value) for myocardial infarction in females is 38 pg/mL, in males 51 pg/mL. The results should be used in conjunction withclinical conditions of myocardial infarction. (Access High Sensitivity Troponin I Instructions For Use, [place], January 2018)TSH Qn1.60 m[IU]/LNormal0.34 - 5.60 mcIU/mLRemisol ChemUrea nitrogen [Mass/Vol]17 mg/dLNormal5 - 21 mg/dLRemisol ChemUrea nitrogen/Creatinine [Mass ratio]28 mg/gaRsfx46 - 20Remisol ChemCOAGULATIONOrdered By: Lisbet Moon on 66-20-0595sHJH Coag (PPP) [Time]33.6 eVsrlnr49.1 - 36.5 second(s)[facility] [place] Auto Coag Comment on above:Interpretive Data: Parameter [...] the same coagulation reagent and instrumentation as [facility] [place]. Currently there are no coagulation studies available worldwide for children to 14 days, andno normal ranges. Heparin therapeutic range (represented by Anti-Factor Xa activity of 0.2 - 0.4 U/mL) corresponds to PTT of 56.6 - 109.0 sec.INR Coag (PPP) [Relative time]1.06 {INR}Invalid Interpretation CodeCARNEGIE TRI-COUNTY [facility] [place] Auto CoagComment on above:Interpretive Data: INR results are specifically intended to assess patients stabilized on long-term Anticoagulation therapy suggested INR s Less Intensive Anticoagulation 2.0 3.0 Conventional Range 3.0 4.5PT Coag (PPP) [Time]11.9 sNormal9.4 - 12.5 second(s) [facility] [place] Auto CoagComment on above:Interpretive Data: 15 days [...] the same coagulation reagent and instrumentation as [facility] [place]. Currently there are no coagulation studies available worldwide for children to 14 days, andno normal ranges.ED Clinical Summaryon [id number] Clinical SummaryED Clinical Summary [place] [address] ED Clinical Summary Person Information Name: GLADIS MICHAEL [facility] Age: 49 Years : 1975 Sex: Female Language: Armenian PCP: KAILYN WAITE CNP Marital Status: Visit [...] 22:11:57 10/01/2024 22:11:57 10/01/2024 22:11:57 ADDRESS: [address] [place] [phone] PHYS DOC NOTES: MEDICAL INFORMATION: Prescriptions Given: [...] every day. PATIENT EDUCATION INFORMATION: Instructions: Palpitations, Mbht-jn-Ykwy; Nonspecific Chest Pain, Adult, Bcbk-gg-Izcm; Hypokalemia Follow up: With: Address: When: KAILYN MARIANN [address] [place] [address] [phone] Business (1) In 3 days 10/04/2024 Comments: Please follow-up with your primary care doctor for further evaluation management. Return to the ED for any new or worsening symptoms or if you have any concerns. DIAGNOSIS: Chest pain; Hypokalemia; PalpitationsNormalFisher Salt Lake Medical CenterED Note-Physicianon [id number] Note-PhysicianED Note-Physician Basic Information Time Seen: Jeffy [...] and Complexity of Problems Differential Diagnosis: [] [facility] Data External documents reviewed: [] My EKG [...] Oxygen Saturation Oxygen The (more content not included)...[facility] Comment on above:Result Comment: Electronically Signed By: Jeffy Das DO\.br\Date and Time Signed: 10/01/24 21:59 EDTED Patient Summaryon [id number] Patient SummaryED Patient Summary [place] [id number] Patient Discharge Instructions Person Information Name: GLADIS MICHAEL Age: 49 Years Arrival Date: 10/01/2024 19:54:47 Discharge Diagnosis: Chest pain; Hypokalemia; Palpitations Primary Care Physician: KAILYN WAITE CNP Provider Information Primary Provider: Jeffy Das DO Advanced Foam Molder:None The exam and treatment you received in the Emergency Department were for an urgent problem and are not intended as complete care. It is important that you follow up with a doctor, nurse practitioner,or physician???s sales assistant institutional sales for ongoing care. If your symptoms become worse or you do not improve asexpected and you are unable to reach your usual health care provider, you should return to the Emergency Department. We are available 24 hours a day. GLADIS MICHAEL has been given the following list of patient education materials, prescriptions and follow-up instructions: Follow-up Instructions: With: Address: When: KAILYN WIATE [address] [place] [address] [phone] Business (1) In 3 days 10/04/2024 Comments: Please follow-up with your primary care doctor for further evaluation management. Return to the ED for any new or worsening symptoms or if you have any concerns. In the event that this physician does not participate in your insurance network, please consult with your insurance company to find a nearby participating provider. Patient Education Materials: Palpitations, Ihlu-fa-Qxtg; Nonspecific Chest Pain, Adult, Nabr-sb-Yaxv; Hypokalemia A MESSAGE TO ALL PATIENTS REGARDING OPIOIDS PRESCRIPTION OPIOIDS: WHAT YOU NEED TO KNOW Prescription opioids can be used to help relieve lnzieqnt-au-izdbos pain and are often prescribed following a [...] the Food and D(more content not included)... [facility] HospitalHEMATOLOGYOrdered By: SYSTEM SYSTEM on 42-97-6075Pcvsnvvzu/100 WBC (Bld)1.4 %Normal0.0 - 2.0 %Remisol Heme Basophils/Leukocytes Auto (Bld) [Pure # fraction]0.2 E9/LNormal0.0 - 0.2 E9/L Remisol HemeEosinophils (Bld) [#/Vol]0.2 E9/LNormal0.0 - 0.5 E9/LRemisol Heme Eosinophils/100 WBC (Bld)1.6 %Normal0.0 - 8.0 %Remisol HemeErythrocyte distribution width (RBC) [Ratio]13.4 %Xvdrri01.9 - 14.2 %Remisol HemeHematocrit (Bld) [Volume fraction]38.1 %Peqczv10.0 - 46.0 %Remisol HemeHemoglobin (Bld) [Mass/Vol]13.2 g/zBQaryqq80.0 - 16.0 gm/dLRemisol HemeLymphocytes (Bld) [#/Vol] 3.9 E9/LNormal1.0 - 4.0 E9/LRemisol HemeLymphocytes/100 WBC (Bld)30.4 %Normal 14.0 - 50.0 %Remisol HemeMCH (RBC) [Entitic mass]28.1 giYcexhm51.0 - 34.0 pg Remisol HemeMCHC (RBC) [Mass/Vol]34.5 g/aTBftact42.4 - 36.0 gm/dLRemisol HemeMCV (RBC) [Entitic vol]81.5 aLTrkwyh51.0 - 100.0 fLRemisol HemeMonocytes (Bld) [#/Vol]0.7 E9/LNormal0.2 - 1.0 E9/LRemisol HemeMonocytes/100 WBC (Bld)5.7 % Normal4.0 - 14.0 %Remisol HemeNeutrophils (Bld) [#/Vol]7.9 E9/LHigh2.0 - 7.5 E9/LRemisol HemeNeutrophils/100 WBC (Bld)60.9 %Cclyty04.0 - 75.0 %Remisol Heme Platelet mean volume (Bld) [Entitic vol]8.4 fLNormal6.4 - 10.8 fLRemisol Heme Platelets (Bld) [#/Vol]443.0 E9/DFjxrni904.0 - 500.0 E9/LRemisol HemeRBC (Bld) [#/Vol]4.7 E12/LNormal4.3 - 5.9 E12/LRemisol HemeWBC corrected for nucl RBC Auto (Bld) [#/Vol]13.0 E9/LHigh4.0 - 11.0 E9/LRemisol HemeMagnesiumon 10-01-2024 Magnesium [Mass/Vol]2.0 mg/dLNormal1.3-2.4[facility] CenterComment on above:Performed By: #### [id number] #### [facility] [address] [place], [place] [address]UB & PTTon 86-09-4127iKOH Coag (PPP) [Time]33.6 second(s)Normal 25.1-36.5FMcCullough-Hyde Memorial HospitalComment on above:Result Comment: Parameter 15 [...] the same coagulation reagent and instrumentation as [facility] [place]. Currently there are no coagulation studies available worldwide for children to 14 days, andno normal ranges. Heparin therapeutic range (represented by Anti-Factor Xa activity of 0.2 - 0.4 U/mL) corresponds to PTT of 56.6 - 109.0 sec.Performed By: #### [id number] #### [facility] [address] [place], [place] [address]FXB Coag (PPP) [Relative time]1.06 {INR}Invalid Interpretation CodeNationwide Children'S HospitalComment on above:Result Comment: INR results are specifically intended to assess patients stabilized on long-term Anticoagulation therapy suggested INR???s ???Less Intensive Anticoagulation??? 2.0 ??? 3.0 Conventional Range 3.0 ??? 4.5Performed By: #### [id number] #### [facility] [address] [place], [place] [address]HO Coag (PPP) [Time]11.9 second(s)Normal9.4-12.5FMcCullough-Hyde Memorial HospitalComment on above:Result Comment: 15 days [...] the same coagulation reagent and instrumentation as [facility] [place]. Currently there are no coagulation studies available worldwide for children to 14 days, andno normal ranges.Performed By: #### [id number] #### [facility] [address] [place], [place] [address]MXE With T4fr Reflexon 58-89-1069XGT Qn1.60 m[IU]/LNormal 0.34-5.60[facility]'S HospitalComment on above:Performed By: #### [id number] #### [facility] [address] [place], [place] [address]Ipzjiqcd 0 Hr.on 05-66-8844Unksagmh HS3.20 pg/mLLow10.10-27.10 [facility]S HospitalComment on above:Result Comment: The 95% CI (Confidence Interval) PPV (Positive Predictive Value) for myocardial infarction in females is 38 pg/mL, in males 51 pg/mL. The results should be used in conjunction with clinical conditions of myocardial infarction. (Access High Sensitivity Troponin I Instructions For Use, [place], January 2018)Performed By: #### [id number] #### [facility] [address] [place], [place] [address]Oxtosjvp 1 Hr.on 39-75-4293Srmafgkf HS2.80 pg/mLLow10.10-27.10 [facility] HospitalComment on above:Order Comment: 2111Result Comment: The 95% CI (Confidence Interval) PPV (Positive Predictive Value) for myocardial infarction in females is 38 pg/mL, in males 51 pg/mL. The results should be used in conjunction with clinical conditions of myocardial infarction. (Access High Sensitivity Troponin I Instructions For Use, [place], January 2018)Performed By: #### [id number] #### [facility] [address] [place], [place] [address]rZTRxb 69-84-6926xFPX246 mL/min/1.73 h3Plwxiq>=59Fisher [facility] Medical CenterComment on above:Performed By: #### [id number] #### [facility] [address] [place], [place] [address]Yzrevz Visiton 61-66-3340Ufmeqx-up [id number] Gladis Michael 1975 F Date Provider Department Center 04/08/2024 [facility]8-GERALD MANCINI [facility] Family History Problem Relation Age of Onset No Known Problems Mother No Known Problems Father Family Status - Relation Status Age at Mother Father Level of Service:[address] [place] OFFICE/OUTPATIENT ESTABLISHED MOD MDM 30 [facility]CBC AUTO DIFFon [id number] #0.1 103/ul Normal0.0-0.1[facility] HospitalComment on above:Performed By: #### UAMIC #### [facility] [address] [place] [address] Dr. Kristen Cohensophils/100 WBC (Bld)0.9 %Normal0.2-2.0[facility] Comment on above:Performed By: #### UAMIC #### [facility] [address] [place] [address] Dr. Kristen Jimenez #0.1 103/ulNormal0.0-0.7The St. Charles HospitalComment on above: Performed By: #### UAMIC #### [facility] [address] [place] [address] Dr. Kristen Velasquezosinophils/100 WBC (Bld)1.1 %Normal0.9-7.0[facility] Comment on above:Performed By: #### UAMIC #### [facility] [address] [place] [address] Dr. Yilan ChangErythrocyte distribution width (RBC) [Ratio]13.2 %Jniaiq36.0-15.[address] Charles HospitalComment on above:Performed By: #### UAMIC #### [facility] [address] [place] [address] Dr. Kristen GambinoHematocrit (Bld) [Volume fraction]41.2 %Rlbpwc03.0-48.0The [facility] Charles HospitalComment on above:Performed By: #### UAMIC #### [facility] [address] [place] [address] Dr. Kristen GambinoHemoglobin (Bld) [Mass/Vol]13.8 g/pBTwqsqg70.0-16.0The [facility] Charles HospitalComment on above:Performed By: #### UAMIC #### [facility] [address] [place] [address] Dr. Kristen GambinoIG #0.03 10e3/ulNormal0.00-0.03The [facility]. Charles HospitalComment on above:Performed By: #### UAMIC #### [facility] [address] [place] [address] Dr. Kristen Weaver %0.2 %Normal0.0-0.5The [facility] HospitalComhenry ford [facility] on above: Performed By: #### UAMIC #### [facility] [address] [place] [address] Dr. Kristen RileyH #3.5 103/ulNormal1.2-3.8The St. Charles HospitalComment on above:Performed By: #### UAMIC #### [facility] [address] [place] [address] Dr. Kristen Montielmphocytes/100 WBC (Bld)28.4 %Firnhu87.5-60.0The [facility] Charles HospitalComment on above:Performed By: #### UAMIC #### [facility] [address] [place] [address] Dr. Kristen GambinoMANUAL DIFF REQNONormalThe St. Charles HospitalComment on above: Performed By: #### UAMIC #### [facility] [address] [place] [address] Dr. Kristen Dominguez (RBC) [Entitic mass]27.8 rzPaekhp43.7-34.0The [facility] Charles HospitalComment on above:Performed By: #### UAMIC #### [facility] [address] [place] [address] Dr. Kristen Dominguez (RBC) [Mass/Vol]33.5 g/cOMelynb47.9-35.2The [facility] Charles HospitalComment on above:Performed By: #### UAMIC #### [facility] [address] [place] [address] Dr. Kristen DominguezV (RBC) [Entitic vol]82.9 [address]IRmdegx07.0-99.0The [facility] Charles HospitalComment on above:Performed By: #### UAMIC #### [facility] [address] [place] [address] Dr. Kristen Powell #0.9 103/ulCritically high0.3-0.8The [facility] Comment on above:Performed By: #### UAMIC #### [facility] [address] [place] [address] Dr. Kristen Bagleyocytes/100 WBC (Bld)7.0 %Normal1.7-12.0The [facility] Comment on above:Performed By: #### UAMIC #### [facility] [address] [place] [address] Dr. Kristen Kim #7.8 103/ulCritically high1.4-6.5The [facility] Comment on above:Performed By: #### UAMIC #### [facility] [address] [place] [address] Dr. Kristen Da Silvautrophils/100 WBC (Bld)62.4 %Dtvzho52.0-75.0The [facility] Charles HospitalComment on above:Performed By: #### UAMIC #### [facility] [address] [place] [address] Dr. Kristen Arriola mean volume (Bld) [Entitic vol]9.6 fLNormal9.5-13.5The St. Charles HospitalComment on above:Performed By: #### UAMIC #### [facility] [address] [address] [address] Kristen GambinoPLT409 103/eeYebtjo729-285Obb St. Charles HospitalComment on above: Performed By: #### UAMIC #### [facility] [address] [place] [address] [address] Kristen GambinoRBC4.97 106/ulNormal4.20-5.40The St. Charles HospitalComment on above:Performed By: #### UAMIC #### [facility] [address] [address] [address] Kristen GambinoWBC12.5 103/ulCritically high4.0-11.0The St. Charles HospitalComment on above:Performed By: #### UAMIC #### [facility] [address] [place] [address] Dr. Kristen GambinoCT HEAD WO CONon [id number] HEAD WO CONEXAMINATION: CT HEAD WO CON, [...] Electronically authenticated by: TERRI LANDAVERDE Date: 2022-09-22 23:00[facility] Edwin ShawPROF 14(COMP METB)on 52-10-5488Yjumvxo [Mass/Vol]3.5 g/dLNormal 3.4-5.0The St. Charles HospitalComment on above:Performed By: #### CVDTBH #### [facility] [address] [place] [address] Dr. Kristen GambinoAlbumin/Globulin [Mass ratio]0.8 {ratio}NormalThe St. Charles HospitalComment on above:Performed By: #### CVDTBH #### [facility] [address] [place] [address] Dr. Kristen Madrid [Catalytic activity/Vol]67 U/HRqavth82-548Pbz St. Charles HospitalComment on above:Performed By: #### CVDTBH #### [facility] [address] [place] [address] Dr. Kristen June [Catalytic activity/Vol]29 U/HXptuth10-41Qyg St. Charles HospitalComment on above:Performed By: #### CVDTBH #### [facility] [address] [place] [address] Dr. Kristen Rojo gap [Moles/Vol]12.0 mmol/LNormalThe [facility] Comment on above:Performed By: #### CVDTBH #### [facility] [address] [place] [address] Dr. Kristen GambinoAST [Catalytic activity/Vol]17 U/HTnrsgs35-29Unm St. Charles HospitalComment on above:Performed By: #### CVDTBH #### [facility] [address] [place] [address] Dr. Kristen GambinoBilirubin [Mass/Vol]0.4 mg/dLNormal0.2-1.0The [facility] Comment on above:Performed By: #### CVDTBH #### [facility] [address] [place] [address] Dr. Kristen GambinoCalcium [Mass/Vol]9.5 mg/dLNormal8.5-10.1The [facility] Comment on above:Performed By: #### CVDTBH #### [facility] [address] [place] [address] [address] Kristen GambinoChloride [Moles/Vol]101 mmol/QYmbxop26-100Igj [facility] Comment on above:Performed By: #### CVDTBH #### [facility] [address] [place] [address] [address] Kristen GambinoCO2 [Moles/Vol]28.9 mmol/LRhbvxz76.0-32.0The [facility] Comment on above:Performed By: #### CVDTBH #### [facility] [address] [place] [address] Dr. Kristen GambinoCreatinine [Mass/Vol]0.60 mg/dLNormal0.55-1.02The St. Charles HospitalComment on above:Performed By: #### CVDTBH #### [facility] [address] [place] [address] Dr. Kristen VelasquezGFR-AF NAURUAN>60Normal>=60The St. Charles HospitalComment on above:Performed By: #### CVDTBH #### [facility] [address] [place] [address] Dr. Kristen VelasquezGFR-NON AF NAURUAN>60Normal>=60The [facility]. Charles HospitalComment on above:Performed By: #### CVDTBH #### [facility] [address] [place] [address] Dr. Kristen GambinoGlobulin (S) [Mass/Vol]4.5 g/dLNormalThe St. Charles HospitalComment on above:Performed By: #### CVDTBH #### [facility] [address] [place] [address] [address] Kristen GambinoGlucose [Mass/Vol]108 mg/dLCritically kuvc27-614Cmm St. Charles HospitalComment on above:Performed By: #### CVDTBH #### [facility] [address] [place] [address] Dr. Kristen GambinoPotassium [Moles/Vol]3.9 mmol/LNormal3.5-5.1The [facility] Comment on above:Performed By: #### CVDTBH #### [facility] [address] [place] [address] Dr. Kristen GambinoProtein [Mass/Vol]8.0 g/dLNormal6.4-8.2The [facility] Comment on above:Performed By: #### CVDTBH #### [facility] [address] [place] [address] Dr. Kristen GambinoSodium [Moles/Vol]138 mmol/WFddzsl514-327Akd [facility] Comment on above:Performed By: #### CVDTBH #### [facility] [address] [place] [address] Dr. Kristen GambinoUrea nitrogen [Mass/Vol]10.0 mg/dLNormal7.0-18.0The St. Charles HospitalComment on above:Performed By: #### CVDTBH #### [facility] [address] [place] [address] Dr. Kristen Watkins nitrogen/Creatinine [Mass ratio]16.7 mg/mgNoUC Medical CenterComment on above:Performed By: #### CVDTBH #### [facility] [address] [place] [address] Dr. Kristen Louis ACOG PANEL 2: 30 to 65on 08-15-2022..NormalThe [address] Charles HospitalComment on above:Result Comment: Performed at: WBPerformed By: #### [id number] #### [facility] [address] [place] [address] Dr. Kristen Lewis Gdln ACOG Yenffml72-62UspqiaXvpUC Medical CenterComment on above:Performed By: #### [id number] #### [facility] [address] [place] [address] Dr. Kristen GambinoDIAGNOSIS:CommentSelect Medical [facility] Rehabilitation Hospital, Edwin ShawComment on above: Result Comment: NEGATIVE FOR INTRAEPITHELIAL LESION OR MALIGNANCY. Performed at: WBPerformed By: #### [id number] #### [facility] [address] [place] [address] Dr. Kristen Zacarias AptimaNegativeNormalNegativeAultman Orrville Hospital on above:Result Comment: This nucleic acid amplification test detects fourteen high-risk HPV types (16,18,31,33,35,39,45,51,52,56,58,59,66,68) without differentiation. Performed at: =GPerformed By: #### [id number] #### [facility] [address] [place] [address] Dr. Kristen Zacarias Genotype ReflexCommentMetroHealth Main Campus Medical Center on above:Result Comment: Criteria not met, HPV Genotype not performed. Performed at: WBPerformed By: #### [id number] #### [facility] [address] [place] [address] Dr. Kristen GambinoMethodology:CommentNoHolzer Health System on above: Result Comment: This liquid based ThinPrep(R) pap test was screened with the use of an image guided system. Performed at: WBPerformed By: #### [id number] #### [place] [address] [address] Kristen GambinoNote:CommentNoHolzer Health System on above:Result Comment: The Pap smear is a screening test designed to aid in the detection of premalignant and malignant conditions of the uterine cervix. It is not a diagnostic procedure and should not be used as the sole means of detecting cervical cancer. Both false-positive and false-negative reports do occur. . Performed at: WBPerformed By: #### [id number] #### [facility] [address] [place] [address] Dr. Kristen GambinoPerformed by:CommentNoHolzer Health System on above: Result Comment: Bridget Romo, Photo Graphics Librarian (ASCP) Performed at: WBPerformed By: #### [id number] #### [facility] [address] [place] [address] Dr. Kristen GambinoSpecimen adequacy:CommentNormalThe Des Lacs HospitalComment on above:Result Comment: Satisfactory for evaluation. Endocervical and/or squamous metaplastic cells (endocervical component) are present. Performed at: WBPerformed By: #### [id number] #### [facility] [address] [place] [address] Dr. Kristen GambinoUS PELVIS AND TRANSVAGon [id number] PELVIS AND TRANSVAG EXAMINATION: US PELVIS AND [...] Electronically authenticated by: TERRI DELANEY Date: 2022-08-14 07:35[facility] ShawCULTURE URINEon [id number] URINEIsolate 1 Pseudomonas aeruginosa <10,000 cfu/mL of ORGANISM 1 Pseudomonas aeruginosa ANTIBIOTIC M.I.C RX STATUS Piperacillin/Tazobactam <=4 S F Ceftazidime 2 S F Imipenem 2 S F Amikacin <=2 S F Gentamicin <=1 S F Tobramycin <=1 S F Ciprofloxacin <=0.25 S F Levofloxacin 0.[address] Charles HospitalComment on above:Performed By: #### UAMIC #### [facility] [address] [place] [address] [address] Kristen GambinoMG MAMM SCREEN 3D ARCHIE CADon [id number] MAMM SCREEN 3D ARCHIE CAD Patient: GLADIS MICHAEL Exam Date: 03/06/2022 : 1975 Gender:F Ordering : [facility] Admission #: [id number] Family : Order #: [id number] CLICK HERE TO VIEW EXAM RADIOLOGY REPORT [...] brain cancer at age 41. LOCATION: [facility] BREAST COMPOSITION: Scattered areas [...] by: Shade Romo MD on 03/06/2022 at 14:25[facility] (CVDTBH)on [id number]-CoV-2 (COVID-19) RNA GARTH+probe Ql (Unsp spec)Not detectedNormalNOT DETECTEDThe St. Charles HospitalComment on above:Result Comment: This test is not yet approved or cleared by the [place] FDA. When there are no FDA-approved or cleared tests available, and other criteria are met, FDA can make tests available under an emergency access mechanism called an Emergency Use Authorization (EUA). The EUA for this test is supported by the [employer] of Health and Human Service's (HHS's) declaration [...] consistent with SARS-CoV-2.Performed By: #### CVDTBH #### [facility] [address] [place] [address] Dr. Kristen Sexton URINEon [id number] URINECulture Observations: Called Group B Strep to [...] 0.5 S F Tetracycline >=[address] Charles HospitalComment on above:Performed By: #### UAMIC #### [facility] [address] [place] [address] Dr. Kristen Mathis AUTO DIFFon [id number] #0.2 103/ulCritically high0.0-0.[address] [facility] HospitalComment on above:Performed By: #### CBC #### [facility] [address] [place] [address] Dr. Kristen GambinoBasophils/100 WBC (Bld)1.3 %Normal0.2-2.0The [facility] Comment on above:Performed By: #### CBC #### [facility] [address] [place] [address] Dr. Peterson ChangEClaudette #0.3 103/ulNormal0.0-0.7The [facility] Charles HospitalComment on above: Performed By: #### CBC #### [facility] [address] [place] [address] Dr. Kristen Velasquezosinophils/100 WBC (Bld)1.9 %Normal0.9-7.0[facility] Comment on above:Performed By: #### CBC #### [facility] [address] [place] [address] Dr. Kristen Velasquezrythrocyte distribution width (RBC) [Ratio]13.4 %Nlaacj78.0-15.[address] [facility] HospitalComment on above:Performed By: #### CBC #### [facility] [address] [place] [address] Dr. Kristen GambinoHematocrit (Bld) [Volume fraction]41.3 %Afsdfu36.0-48.0The [facility] Charles HospitalComment on above:Performed By: #### CBC #### [facility] [address] [place] [address] Dr. Kristen GambinoHemoglobin (Bld) [Mass/Vol]13.6 g/hJTnyzce89.0-16.0The [facility] Charles HospitalComment on above:Performed By: #### CBC #### [facility] [address] [place] [address] Dr. Kristen Weaver #0.07 10e3/ulCritically high0.00-0.03The [facility] Comment on above:Performed By: #### CBC #### [facility] [address] [place] [address] Dr. Kristen Weaver %0.4 %Normal0.0-0.5The [facility] Charles HospitalComment on above: Performed By: #### CBC #### [facility] [address] [place] [address] Dr. Kristen MontielMPH #3.6 103/ulNormal1.2-3.8The [facility] Charles HospitalComment on above:Performed By: #### CBC #### [facility] [address] [place] [address] Dr. Kristen Montielmphocytes/100 WBC (Bld)22.4 %Ejaudv27.5-60.0The [facility] Charles HospitalComment on above:Performed By: #### CBC #### [facility] [address] [place] [address] Dr. Kristen Akins DIFF REQNONormalThe St. Charles HospitalComment on above: Performed By: #### CBC #### [facility] [address] [place] [address] Dr. Kristen Dominguez (RBC) [Entitic mass]27.8 baCykcjz15.7-34.0The [facility] Charles HospitalComment on above:Performed By: #### CBC #### [facility] [address] [place] [address] Dr. Kristen Dominguez (RBC) [Mass/Vol]32.9 g/fSVocnzl87.9-35.2The [facility] HospitalComment on above:Performed By: #### CBC #### [facility] [address] [place] [address] Dr. Kristen Dominguez (RBC) [Entitic vol]84.5 oPNpesja30.0-99.0[facility] HospitalComment on above:Performed By: #### CBC #### [facility] [address] [place] [address] Dr. Kristen Powell #1.1 103/ulCritically high0.3-0.8ThTwin City Hospital Comment on above:Performed By: #### CBC #### [facility] [address] [place] [address] Dr. Kristen Bagleyocytes/100 WBC (Bld)7.0 %Normal1.7-12.0[facility] Comment on above:Performed By: #### CBC #### [facility] [address] [place] [address] Dr. Kristen Kim #10.7 103/ulCritically high1.4-6.5ThTwin City Hospital Comment on above:Performed By: #### CBC #### [facility] [address] [place] [address] Dr. Kristen Da Silvautrophils/100 WBC (Bld)67.0 %Zaenqd37.0-75.0The [facility] Charles HospitalComment on above:Performed By: #### CBC #### [facility] [address] [place] [address] Dr. Kristen GambinoPlatelet mean volume (Bld) [Entitic vol]9.3 fLCritically low 9.5-13.5[facility] on above:Performed By: #### CBC #### [facility] [address] [place] [address] Dr. Kristen GambinoPLT502 103/ulCritically bugp350-690Rbh [facility] on above:Performed By: #### CBC #### [facility] [address] [place] [address] Dr. Kristen GambinoRBC4.89 106/ulNormal4.20-5.40[facility] on above:Performed By: #### CBC #### [facility] [address] [place] [address] Dr. Kristen GambinoWBC16.0 103/ulCritically high4.0-11.0[facility] on above:Performed By: #### CBC #### [facility] [address] [place] [address] Dr. Kristen GambinoPROF 14(COMP METB)on 36-01-5677Fpmmbpl [Mass/Vol]4.0 g/dLNormal 3.4-5.0[facility] on above:Performed By: #### CMP #### [facility] [address] [place] [address] Dr. Kristen GambinoAlbumin/Globulin [Mass ratio]0.9 {ratio}NormalThe [facility] on above:Performed By: #### CMP #### [facility] [address] [place] [address] Dr. Kristen Madrid [Catalytic activity/Vol]72 U/HPsivij23-374Mzf [facility] on above:Performed By: #### CMP #### [facility] [address] [place] [address] Dr. Kristen DillonT [Catalytic activity/Vol]45 U/QWuabhq23-69[facility] on above:Performed By: #### CMP #### [facility] [address] [address] [address] Kristen Ruizon gap [Moles/Vol]12.4 mmol/LNormalThe [facility] Comment on above:Performed By: #### CMP #### [facility] [address] [address] [address] Kristen GambinoAST [Catalytic activity/Vol]31 U/AWyehap24-86Zkt St. Charles HospitalComment on above:Performed By: #### CMP #### [facility] [address] [address] [address] Kristen GambinoBilirubin [Mass/Vol]0.6 mg/dLNormal0.2-1.0The [facility] Comment on above:Performed By: #### CMP #### [facility] [address] [address] [address] Kristen GambinoCalcium [Mass/Vol]9.2 mg/dLNormal8.5-10.1[facility] Comment on above:Performed By: #### CMP #### [facility] [address] [address] [address] Kristen GambinoChloride [Moles/Vol]101 mmol/WVumnwr39-897Hwo [facility] Comment on above:Performed By: #### CMP #### [facility] [address] [address] [address] Kristen GambinoCO2 [Moles/Vol]26.3 mmol/DXdszun09.0-32.0The [facility] Comment on above:Performed By: #### CMP #### [facility] [address] [address] [address] Kristen GambinoCreatinine [Mass/Vol]0.74 mg/dLNormal0.55-1.02The [facility] HospitalComment on above:Performed By: #### CMP #### [facility] [address] [address] [address] Peterson ChangEGFR-AF NAURUAN>60Normal>=60The [facility] Charles HospitalComment on above:Performed By: #### CMP #### [facility] [address] [address] [address] Kritsen VelasquezGFR-NON AF NAURUAN>60Normal>=60The [facility] Charles HospitalComment on above:Performed By: #### CMP #### [facility] [address] [address] [address] Kristen GambinoGlobulin (S) [Mass/Vol]4.4 g/dLNormCleveland Clinic Euclid HospitalComment on above:Performed By: #### CMP #### [facility] [address] [address] [address] Kristen GambinoGlucose [Mass/Vol]106 mg/jMHlgshi34-487Wnb [facility] Comment on above:Performed By: #### CMP #### [facility] [address] [address] [address] Kristen GambinoPotassium [Moles/Vol]3.7 mmol/LNormal3.5-5.1The [facility] Comment on above:Performed By: #### CMP #### [facility] [address] [place] [address] Dr. Krisetn GambinoProtein [Mass/Vol]8.4 g/dLCritically high6.4-8.2The [facility] HospitalComment on above:Performed By: #### CMP #### [facility] [address] [place] [address] Dr. Kristen GambinoSodium [Moles/Vol]136 mmol/WVsasnc563-391Hrj [facility] Comment on above:Performed By: #### CMP #### [facility] [address] [place] [address] Dr. Kristen GambinoUrea nitrogen [Mass/Vol]14.0 mg/dLNormal7.0-18.0The [facility] HospitalComment on above:Performed By: #### CMP #### [facility] [address] [place] [address] Dr. Kristen Watkins nitrogen/Creatinine [Mass ratio]18.9 mg/mgNormalThTwin City HospitalComment on above:Performed By: #### CMP #### [facility] [address] [place] [address] Dr. Kristen Hancock RANDOM W/MICROSCOPICon [id number]D SEENOhiohealth Pickerington Methodist HospitalComhenry [facility] on above:Performed By: #### UAMIC #### [facility] [address] [address] [address] Kristen Leonard Ql (U)NegativeNormalNEGATIVETrumbull Memorial Hospital on above:Performed By: #### UAMIC #### [facility] [address] [address] [address] Kristen Falk OX CRYSTALSMODERATESelect Medical Cleveland Clinic Rehabilitation Hospital, Edwin ShawComment on above:Performed By: #### UAMIC #### [facility] [address] [address] [address] Kristen GarciaNONE SEENNormalNONE SEENAultman Orrville Hospital on above:Performed By: #### UAMIC #### [facility] [address] [address] [address] Kristen Chawla (U)CLEARNormalCLEAROhiohealth Pickerington Methodist HospitalComment on above: Performed By: #### UAMIC #### [facility] [address] [address] [address] Kristen Boucher (U)YELLOWNormalYELLOWOhiohealth Pickerington Methodist HospitalComhenry [facility]d [facility] on above: Performed By: #### UAMIC #### [facility] [address] [address] [address] Kristen GambinoCrystals LM Nom (Urine sed)SEENAbnormalNONE SEENAultman Orrville Hospital on above:Performed By: #### UAMIC #### [facility] [address] [address] [address] Peterson ChangEpithelial cells LM Ql (Urine sed)MODERATEAbnormalNONE SEEN /RARE The [facility] HospitalComhenry ford [facility] on above:Performed By: #### UAMIC #### [facility] [address] [address] [address] Kristen Barthose Ql (U)NegativeNormalNEGATIVEOhiohealth Pickerington Methodist HospitalComhenry [facility] on above:Performed By: #### UAMIC #### [facility] [address] [address] [address] Kristen GambinoHemoglobin Ql (U)NegativeNormalNEGATIVEOhiohealth [facility]erington [facility] Hospital Comment on above:Performed By: #### UAMIC #### [facility] [address] [address] [address] Kristen GambinoKetones Ql (U)NegativeNormalNEGATIVEOhiohealth Pickerington Methodist HospitalComment on above:Performed By: #### UAMIC #### [facility] [address] [address] [address] Kristen GambinoLEUKOCYTESSMALLAbnormalNEGATIVEThe St. Charles HospitalComment on above:Performed By: #### UAMIC #### [facility] [address] [place] [address] Dr. Kristen GambinoMUCOUSSMALLAbnormalNONE SEENOhiohealth Pickerington Methodist HospitalComment on above:Performed By: #### UAMIC #### [facility] [address] [place] [address] Dr. Kristen GambinoNitrite Ql (U)NegativeNormalNEGATIVEOhiohealth Pickerington Methodist HospitalComment on above:Performed By: #### UAMIC #### [facility] [address] [place] [address] Dr. Kristen GambinopH (U)5.0 [pH]Normal5-9[facility] HospitalComment on above: Performed By: #### UAMIC #### [facility] [address] [address] [address] Kristen GambinoRBCNONE SEENAbnormal0-2The St. Charles HospitalComment on above: Performed By: #### UAMIC #### [facility] [address] [place] [address] Dr. Kristen GambinoSPEC GRAVITY>=1.091Laqmbktw7.005-<=1.025The [facility] Comment on above:Performed By: #### UAMIC #### [facility] [address] [place] [address] Dr. Kristen GambinoUA PROTEINNegativeNormalNEGATIVE/ TRACEThe [facility] Comment on above:Performed By: #### UAMIC #### [facility] [address] [address] [address] Kristen Eckert Qn (U)0.2 {Sonya'U}/dLNormal0.2 - 1.0The [facility] HospitalComment on above:Performed By: #### UAMIC #### [facility] [address] [place] [address] Dr. Kristen GambinoWBC5-10AbnormalNONE [address]The [address] Charles HospitalComment on above: Performed By: #### UAMIC #### [facility] [address] [place] [address] Dr. Kristen GambinoXR TSPINE 2 VIEWSon [id number] TSPINE 2 VIEWSEXAMINATION: XR TSPINE 2 VIEWS [...] Electronically authenticated by: TERRI DELANEY Date: 2022-01-11 07:[facility] AUTO DIFFon [id number] #0.1 103/ulNormal0.0-0.1The [facility] HospitalComment on above:Performed By: #### CBC #### [facility] [address] [place] [address] Dr. Kristen GambinoBasophils/100 WBC (Bld)1.0 %Normal0.2-2.0The [facility] Comment on above:Performed By: #### CBC #### [facility] [address] [place] [address] Dr. Kristen Jimenez #0.1 103/ulNormal0.0-0.7The [facility] HospitalComment on above: Performed By: #### CBC #### [facility] [address] [place], [place] [id number] Dr. Kristen Velasquezosinophils/100 WBC (Bld)1.0 %Normal0.9-7.0The [facility] Comment on above:Performed By: #### CBC #### [facility] [address] [place] [address] Dr. Kristen Velasquezrythrocyte distribution width (RBC) [Ratio]13.2 %Mljnkc49.0-15.[address] [facility] HospitalComment on above:Performed By: #### CBC #### [facility] [address] [place] [address] Dr. Kristen GambinoHematocrit (Bld) [Volume fraction]42.5 %Oyzkhq55.0-48.0The [facility] HospitalComment on above:Performed By: #### CBC #### [facility] [address] [place] [address] Dr. Kristen GambinoHemoglobin (Bld) [Mass/Vol]13.6 g/aCFmjqjk04.0-16.0The [facility] HospitalComment on above:Performed By: #### CBC #### [facility] [address] [place] [address] Dr. Kristen Weaver #0.05 10e3/ulCritically high0.00-0.03The [facility] Comment on above:Performed By: #### CBC #### [facility] [address] [place] [address] Dr. Kristen Weaver %0.4 %Normal0.0-0.5The [facility] HospitalComment on above: Performed By: #### CBC #### [facility] [address] [place] [address] Dr. Kristen RileyH #2.5 103/ulNormal1.2-3.8The [facility] HospitalComment on above:Performed By: #### CBC #### [facility] [address] [place] [address] Dr. Kristen Montielmphocytes/100 WBC (Bld)20.2 %Critically low20.5-60.0The [facility] HospitalComment on above:Performed By: #### CBC #### [facility] [address] [place] [address] Dr. Kristen Akins DIFF REQNONormalThe St. Charles HospitalComment on above: Performed By: #### CBC #### [facility] [address] [place] [address] Dr. Kristen Dominguez (RBC) [Entitic mass]27.2 mfUezydo56.7-34.0The [facility] HospitalComment on above:Performed By: #### CBC #### [facility] [address] [place] [address] Dr. Kristen Dominguez (RBC) [Mass/Vol]32.0 g/hEQzsvck10.9-35.2The [facility] Charles HospitalComment on above:Performed By: #### CBC #### [facility] [address] [place] [address] Dr. Kristen Dominguez (RBC) [Entitic vol]85.0 dDGduibb76.0-99.0The [facility] HospitalComment on above:Performed By: #### CBC #### [facility] [address] [place] [address] Dr. Kristen Powell #0.7 103/ulNormal0.3-0.8The [facility] HospitalComment on above:Performed By: #### CBC #### [facility] [address] [place] [address] Dr. Kristen Bagleyocytes/100 WBC (Bld)5.7 %Normal1.7-12.0[facility] Comment on above:Performed By: #### CBC #### [facility] [address] [place] [address] Dr. Kristen Kim #9.0 103/ulCritically high1.4-6.5The [facility] Comment on above:Performed By: #### CBC #### [facility] [address] [place] [address] Dr. Kristen Da Silvautrophils/100 WBC (Bld)71.7 %Xjtgtv25.0-75.0The [facility] HospitalComment on above:Performed By: #### CBC #### [facility] [address] [address] [address] Kristen Arriola mean volume (Bld) [Entitic vol]9.2 fLCritically low 9.5-13.5The [facility] HospitalComhenry ford [facility] on above:Performed By: #### CBC #### [facility] [address] [place] [address] Dr. Kristen GambinoPLT413 103/lzImjbuv948-745Sln St. Charles HospitalComment on above: Performed By: #### CBC #### [facility] [address] [place] [address] Dr. Kristen GambinoRBC5.00 106/ulNormal4.20-5.40[facility] on above:Performed By: #### CBC #### [facility] [address] [place] [address] Dr. Kristen GambinoWBC12.5 103/ulCritically high4.0-11.0The [facility] HospitalComment on above:Performed By: #### CBC #### [facility] [address] [place] [address] Dr. Kristen GambinoPREJonathon QUANT HCGon 43-27-6230TPP QUANT1 mIU/mLNormalOhiohealth Pickerington Methodist HospitalComhenry [facility] on above:Performed By: #### PREGQNT #### [facility] [address] [place] [address] Dr. Kristen GambinoHCJonathon RANGESEE BELOWNoVeterans Health Administratione St. Charles HospitalComment on above: Result Comment: 5-50 0-1 WEEK 40-300 1-2 WEEKS 100-1,000 2-3 WEEKS 500-6,000 3-4 WEEKS 5,000-200,000 1-2 MONTHS 10,000-100,000 2-3 MONTHS 3,000-50,000 2ND TRIMESTER 1,000-50,000 3RD TRIMESTERPerformed By: #### PREGQNT #### [facility] [address] [place] [address] Dr. Kristen GambinoCHEMISTRYOrdered By: SYSTEM SYSTEM on 83-61-5970Wzvkbyx [Mass/Vol]4.5 g/dLNormal3.3 - 5.0 gm/dLFTMC RemisolAlbumin/Globulin [Mass ratio] 1.2 {ratio}Normal1.1 - 2.2[facility] RemisolALP [Catalytic activity/Vol]53 [iU]/d Ynsrmb38 - 98 Int._Unit/LFTMC RemisolALT No additional P-5'-P [Catalytic activity/Vol]23 [iU]/dNormal6 - 46 Int._Unit/LFTMC RemisolAnion gap [Moles/Vol] 13 mmol/LNormal6 - 16 mEq/LFTMC RemisolAST [Catalytic activity/Vol]20 [iU]/d Normal5 - 43 Int._Unit/LFTMC RemisolBilirubin [Mass/Vol]0.8 mg/dLNormal0.0 - 1.1 mg/dLFTMC RemisolBilirubin.direct [Mass/Vol]0.1 mg/dLNormal0.1 - 0.4 mg/dLFTMC RemisolBilirubin.indirect [Mass or moles/Vol]0.7 mg/dLNormal0.1 - 0.9 mg/dLFTMC RemisolCalcium [Mass/Vol]9.4 mg/dLNormal8.9 - 11.1 mg/dLFTMC RemisolChloride [Moles/Vol]99 mmol/GIxx379 - 111 mmol/LFTMC RemisolCO2 [Moles/Vol]25 mmol/L Qnknjj64 - 31 mmol/LFTMC RemisolCreatinine [Mass/Vol]0.6 mg/dLNormal0.5 - 1.3 mg/dLFTMC RemisolGFR/1.73 sq M.predicted among blacks MDRD (S/P/Bld) [Vol rate/Area]mL/min/1.73 e8Zgqokq>=59mL/min/1.73 m2FT[facility] Chem SGFR/1.73 sq M.predicted among non-blacks MDRD (S/P/Bld) [Vol rate/Area]mL/min/1.73 i4Naihdk >=59mL/min/1.73 m2FT[facility] Chem SGlobulin (S) [Mass/Vol]3.8 g/dLNormal1.4 - 4.0 gm/dLFTMC RemisolGlucose [Mass/Vol]111 mg/xIJljeab33 - 199 mg/dLFTMC Remisol Lipase [Catalytic activity/Vol]26 U/AEpqygh13 - 58 unit/LFTMC RemisolPotassium [Moles/Vol]3.8 mmol/LNormal3.5 - 5.3 mmol/LFTMC RemisolProtein [Mass/Vol]8.3 g/dLHigh6.0 - 7.8 gm/dLFTMC RemisolSodium [Moles/Vol]133 mmol/VIxu980 - 145 mmol/LFTMC RemisolUrea nitrogen [Mass/Vol]11 mg/dLNormal5 - 21 mg/dLFTMC Remisol Urea nitrogen/Creatinine [Mass ratio]18 mg/kyElgbvd84 - 20FT[facility] RemisolHEMATOLOGY Ordered By: SYSTEM SYSTEM on 08-05-3089Valbtrggr/100 WBC (Bld)0.9 %Normal0.0 - 2.0 %[facility] HemeAutoSSBasophils/Leukocytes Auto (Bld) [Pure # fraction]0.1 E9/L Normal0.0 - 0.2 E9/LFTMC HemeAutoSSEosinophils/100 WBC (Bld)1.3 %Normal0.0 - 8.0 %[facility] HemeAutoSSEosinophils/Leukocytes Auto (Bld) [Pure # fraction]0.2 E9/L Normal0.0 - 0.5 E9/LFTMC HemeAutoSSLymphocytes/100 WBC (Bld)19.8 %Nymnyy06.0 - 50.0 %[facility] HemeAutoSSLymphocytes/Leukocytes Auto (Bld) [Pure # fraction]2.6 E9/L Normal1.0 - 4.0 E9/LFTMC HemeAutoSSMonocytes/100 WBC (Bld)6.0 %Normal4.0 - 14.0 %[facility] HemeAutoSSMonocytes/Leukocytes Auto (Bld) [Pure # fraction]0.8 E9/LNormal 0.2 - 1.0 E9/LFTMC HemeAutoSSNeutrophils/100 WBC (Bld)72.0 %Ivaymg94.0 - 75.0 % [facility] HemeAutoSSNeutrophils/Leukocytes Auto (Bld) [Pure # fraction]9.4 E9/LHigh 2.0 - 7.5 E9/LFTMC HemeAutoSSHEMATOLOGYOrdered By: Lisbet Moon on 10-20-2021 Erythrocyte distribution width (RBC) [Ratio]13.5 %Vporjz24.9 - 14.2 %[facility] HemeAutoSSHematocrit (Bld) [Volume fraction]41.8 %Fmxoby60.0 - 46.0 %[facility] HemeAutoSSHemoglobin (Bld) [Mass/Vol]14.1 g/qYMrrzpn59.0 - 16.0 gm/dLFTMC HemeAutoSSMCH (RBC) [Entitic mass]27.2 rgLpodaq39.0 - 34.0 pgFTMC HemeAutoSSMCHC (RBC) [Mass/Vol]33.7 g/rSKbvfje94.4 - 36.0 gm/dLFTMC HemeAutoSSMCV (RBC) [Entitic vol]80.6 aYUgmrpw30.0 - 100.0 fLFTMC HemeAutoSSPlatelet mean volume (Bld) [Entitic vol]7.9 fLNormal6.4 - 10.8 fLFTMC HemeAutoSSPlatelets (Bld) [#/Vol]473.0 E9/HQjwgyn692.0 - 500.0 E9/LFTMC HemeAutoSSRBC (Bld) [#/Vol]5.2 E12/LNormal4.3 - 5.9 E12/LFTMC HemeAutoSSWBC corrected for nucl RBC Auto (Bld) [#/Vol]13.1 E9/LHigh4.0 - 11.0 E9/LFTMC HemeAutoSSURINALYSISOrdered By: Sarmad Marina on 70-26-7905Apfspvcck Ql (U)Negative (10/20/21 6:38 PM)NormalNegativeFTMC UA Auto SSClarity (U)Clear (10/20/21 6:38 PM)NormalClearFTMC UA Auto SSColor (U)Yellow (10/20/21 6:38 PM)NormalYellowFT UA Auto SSCrystals LM Ql (Urine sed)Present (10/20/21 6:38 PM)NormalFTMC UA Auto SSEpithelial cells.squamous LM.HPF (Urine sed) [#/Area]0-2 /HPFNormal0-2/HPFCARNEGIE [facility] [place] UA Auto SSGlucose Test strip (U) [Mass/Vol]Negative (10/20/21 6:38 PM)NormalNegativeCARNEGIE [facility] [place] UA Auto SSHemoglobin Ql (U)Negative (10/20/21 6:38 PM)NormalNegativeCARNEGIE [facility] [place] UA Auto SSKetones (U) [Mass/Vol]Negative (10/20/21 6:38 PM)NormalNegativeCARNEGIE [facility] [place] UA Auto SSLithium.plasma/[place].RBC (Bld) [Mass ratio]0-3 /HPFNormal0-3/HPFCARNEGIE [facility] [place] UA Auto SSNitrite Ql (U)Negative (10/20/21 6:38 PM)NormalNegativeCARNEGIE [facility] [place] UA Auto SSpH (U)6.0 *NA* (10/20/21 6:38 PM)Invalid Interpretation Code5.0 - 9.0[facility] [place] UA Auto SSProtein (U) [Mass/Vol]Negative (10/20/21 6:38 PM)NormalNegativeCARNEGIE [facility] [place] UA Auto SSSpecific gravity (U) [Rel density] <=1.005 *NA* (10/20/21 6:38 PM)Invalid Interpretation Code1.005 - 1.030[facility] [place] UA Auto SSUA Spec DescClean Catch (10/20/21 6:38 PM)NormalCARNEGIE [facility] [place] UA Auto SSUrobilinogen Qn (U)0.9932060 {Sonya'U}/dLNormal0.0 - 1.0 EU/dLCARNEGIE [facility] [place] UA Auto SSWBC Auto Ql (U)Trace *ABN* (10/20/21 6:38 PM)Invalid Interpretation CodeNegativeCARNEGIE [facility] [place] UA Auto SSWBC LM.HPF (Urine sed) [#/Area]0-5 /HPFNormal0-5/HPFCARNEGIE [facility] [place] UA Auto SSCHEMISTRYOrdered By: SYSTEM SYSTEM on 34-67-8816Opiljkk [Mass/Vol]4.2 g/dLNormal3.3 - 5.0 gm/dLFTMC RemisolAlbumin/Globulin [Mass ratio]1.2 {ratio}Normal1.1 - 2.2FT[facility] RemisolALP [Catalytic activity/Vol]48 [iU]/aJdouyg33 - 98 Int._Unit/LFTMC RemisolALT No additional P-5'-P [Catalytic activity/Vol]26 [iU]/dNormal6 - 46 Int._Unit/LFTMC RemisolAnion gap [Moles/Vol]12 mmol/LNormal6 - 16 mEq/LFTMC RemisolAST [Catalytic activity/Vol]23 [iU]/dNormal5 - 43 Int._Unit/LFTMC RemisolBilirubin [Mass/Vol]0.8 mg/dLNormal0.0 - 1.1 mg/dLFTMC RemisolBilirubin.direct [Mass/Vol] 0.2 mg/dLNormal0.1 - 0.4 mg/dLFTMC RemisolBilirubin.indirect [Mass or moles/Vol] 0.6 mg/dLNormal0.1 - 0.9 mg/dLFTMC RemisolCalcium [Mass/Vol]9.1 mg/dLNormal8.9 - 11.1 mg/dLFTMC RemisolChloride [Moles/Vol]102 mmol/DQkhfho881 - 111 mmol/LFTMC RemisolCO2 [Moles/Vol]24 mmol/NZewgfw61 - 31 mmol/LFTMC RemisolCreatinine [Mass/Vol]0.4 mg/dLLow0.5 - 1.3 mg/dLFTMC RemisolGFR/1.73 sq M.predicted among blacks MDRD (S/P/Bld) [Vol rate/Area]mL/min/1.73 l9Cabfpo>=59mL/min/1.73 m2FT[facility] Chem SGFR/1.73 sq M.predicted among non-blacks MDRD (S/P/Bld) [Vol rate/Area] mL/min/1.73 d9Povekd>=59mL/min/1.73 m2FT[facility] Chem SGlobulin (S) [Mass/Vol]3.6 g/dL Normal1.4 - 4.0 gm/dLFTMC RemisolGlucose [Mass/Vol]108 mg/dAOuvqfu37 - 199 mg/dL [facility] RemisolLactate [Mass/Vol]1.1 mmol/LNormal0.5 - 2.2 mmol/LFTMC RemisolLipase [Catalytic activity/Vol]28 U/KGzvijb40 - 58 unit/LFTMC RemisolPotassium [Moles/Vol]3.7 mmol/LNormal3.5 - 5.3 mmol/LFTMC RemisolProtein [Mass/Vol]7.8 g/dLNormal6.0 - 7.8 gm/dLFTMC RemisolSodium [Moles/Vol]134 mmol/RIno979 - 145 mmol/LFTMC RemisolUrea nitrogen [Mass/Vol]13 mg/dLNormal5 - 21 mg/dLFTMC Remisol Urea nitrogen/Creatinine [Mass ratio]32 mg/eeAlpe91 - 20FTMC RemisolHEMATOLOGY Ordered By: SYSTEM SYSTEM on 95-14-7656Eotjsgspz/100 WBC (Bld)1.0 %Normal0.0 - 2.0 %[facility] HemeAutoSSBasophils/Leukocytes Auto (Bld) [Pure # fraction]0.1 E9/L Normal0.0 - 0.2 E9/LFTMC HemeAutoSSEosinophils/100 WBC (Bld)1.3 %Normal0.0 - 8.0 %[facility] HemeAutoSSEosinophils/Leukocytes Auto (Bld) [Pure # fraction]0.1 E9/L Normal0.0 - 0.5 E9/LFTMC HemeAutoSSLymphocytes/100 WBC (Bld)25.5 %Avurwq23.0 - 50.0 %[facility] HemeAutoSSLymphocytes/Leukocytes Auto (Bld) [Pure # fraction]2.6 E9/L Normal1.0 - 4.0 E9/LFTMC HemeAutoSSMonocytes/100 WBC (Bld)5.7 %Normal4.0 - 14.0 %[facility] HemeAutoSSMonocytes/Leukocytes Auto (Bld) [Pure # fraction]0.6 E9/LNormal 0.2 - 1.0 E9/LFTMC HemeAutoSSNeutrophils/100 WBC (Bld)66.5 %Wntmik03.0 - 75.0 % [facility] HemeAutoSSNeutrophils/Leukocytes Auto (Bld) [Pure # fraction]6.7 E9/LNormal 2.0 - 7.5 E9/LFTMC HemeAutoSSHEMATOLOGYOrdered By: Lisbet Moon on 10-18-2021 Erythrocyte distribution width (RBC) [Ratio]13.5 %Cjlhyz81.9 - 14.2 %FT HemeAutoSSHematocrit (Bld) [Volume fraction]38.7 %Kyiamx40.0 - 46.0 %[facility] HemeAutoSSHemoglobin (Bld) [Mass/Vol]13.2 g/dLDihyiq93.0 - 16.0 gm/dLFT HemeAutoSSMCH (RBC) [Entitic mass]27.6 yfToelou63.0 - 34.0 pgFTMC HemeAutoSSMCHC (RBC) [Mass/Vol]34.2 g/qERranfe55.4 - 36.0 gm/dLFTMC HemeAutoSSMCV (RBC) [Entitic vol]81.0 hNOmbbgr84.0 - 100.0 fLFT HemeAutoSSPlatelet mean volume (Bld) [Entitic vol]7.9 fLNormal6.4 - 10.8 fLFT HemeAutoSSPlatelets (Bld) [#/Vol]415.0 E9/KAgznmf763.0 - 500.0 E9/LFC HemeAutoSSRBC (Bld) [#/Vol]4.8 E12/LNormal4.3 - 5.9 E12/LFTMC HemeAutoSSWBC corrected for nucl RBC Auto (Bld) [#/Vol]10.1 E9/LNormal4.0 - 11.0 E9/LFC HemeAutoSSSEROLOGYOrdered By: Amber Peraza on 31-36-6402EOP.beta subunit (U) [Moles/Vol]NegativeNormalFT Man Sero URINALYSISOrdered By: Lisbet Moon on 72-05-4113Uempxndb LM Ql (Urine sed) Trace /HPFNormalTrace/HPFFT UA Auto SSBilirubin Ql (U)Negative (10/18/21 5:09 AM)NormalNegativeFT UA Auto SSClarity (U)Clear (10/18/21 5:09 AM)NormalClearFTMC UA Auto SSColor (U)STRAWInvalid Interpretation CodeFT UA Auto SSEpithelial cells.squamous LM.HPF (Urine sed) [#/Area]0-2 /HPF Normal0-2/HPFCARNEGIE [facility] [place] UA Auto SSGlucose Test strip (U) [Mass/Vol]Negative (10/18/21 5:09 AM)NormalNegativeCARNEGIE [facility] [place] UA Auto SSHemoglobin Ql (U)Trace *ABN* (10/18/21 5:09 AM)Invalid Interpretation CodeNegativeCARNEGIE [facility] [place] UA Auto SSKetones (U) [Mass/Vol]Negative (10/18/21 5:09 AM)NormalNegativeCARNEGIE [facility] [place] UA Auto SSLithium.plasma/[place].RBC (Bld) [Mass ratio]0-3 /HPFNormal0-3/HPFCARNEGIE [facility] [place] UA Auto SSNitrite Ql (U)Negative (10/18/21 5:09 AM)NormalNegativeCARNEGIE [facility] [place] UA Auto SSpH (U)6.5 *NA* (10/18/21 5:09 AM)Invalid Interpretation Code5.0 - 9.0[facility] [place] UA Auto SSProtein (U) [Mass/Vol]Negative (10/18/21 5:09 AM)NormalNegativeCARNEGIE [facility] [place] UA Auto SSSpecific gravity (U) [Rel density] 1.010 *NA* (10/18/21 5:09 AM)Invalid Interpretation Code1.005 - 1.030[facility] [place] UA Auto SSUA Spec DescClean Catch (10/18/21 5:09 AM)NormalCARNEGIE [facility] [place] UA Auto SSUrobilinogen Qn (U)0.0130956 {Sonya'U}/dLNormal0.0 - 1.0 EU/dLCARNEGIE [facility]-COUNT[facility] [place] UA Auto SSWBC Auto Ql (U)Trace *ABN* (10/18/21 5:09 AM)Invalid Interpretation CodeNegativeCARNEGIE [facility] [place] UA Auto SSWBC LM.HPF (Urine sed) [#/Area]0-5 /HPFNormal0-5/HPFCARNEGIE [facility] [place] UA Auto SSCBC AUTO DIFFon 18-64-3784CWCB #0.1 103/ulNormal0.0-0.1The St. Charles HospitalComment on above: Performed By: #### CBC #### [facility] [address] [place] [address] Dr. Kristen Cohensophils/100 WBC (Bld)1.0 %Normal0.2-2.0The [facility] Comment on above:Performed By: #### CBC #### [facility] [address] [place] [address] Dr. Kristen Jimenez #0.1 103/ulNormal0.0-0.7The St. Charles HospitalComment on above: Performed By: #### CBC #### [facility] [address] [place] [address] Dr. Kristen Velasquezosinophils/100 WBC (Bld)0.9 %Normal0.9-7.0The [facility] Comment on above:Performed By: #### CBC #### [facility] [address] [place] [address] Dr. Kristen Velasquezrythrocyte distribution width (RBC) [Ratio]13.3 %Xxbtfh91.0-15.[address] [facility] HospitalComment on above:Performed By: #### CBC #### [facility] [address] [place] [address] Dr. Kristen GambinoHematocrit (Bld) [Volume fraction]44.6 %Hramxw80.0-48.0The [facility]. Charles HospitalComment on above:Performed By: #### CBC #### [facility] [address] [place] [address] Dr. Kristen GambinoHemoglobin (Bld) [Mass/Vol]14.4 g/aUTsvvfd98.0-16.0The [facility]. Charles HospitalComment on above:Performed By: #### CBC #### [facility] [address] [place] [address] Dr. Kristen Weaver #0.03 10e3/ulNormal0.00-0.03The St. Charles HospitalComment on above:Performed By: #### CBC #### [facility] [address] [place] [address] Dr. Kristen Weaver %0.3 %Normal0.0-0.5The [facility]. Charles HospitalComment on above: Performed By: #### CBC #### [facility] [address] [place] [address] Dr. Kristen Christina #1.6 103/ulNormal1.2-3.8The St. Charles HospitalComment on above:Performed By: #### CBC #### [facility] [address] [place] [address] Dr. Kristen Monitelmphocytes/100 WBC (Bld)17.9 %Critically low20.5-60.0The [facility]. Charles HospitalComment on above:Performed By: #### CBC #### [facility] [address] [place] [address] Dr. Kristen Akins DIFF REQNONormalThe St. Charles HospitalComment on above: Performed By: #### CBC #### [facility] [address] [place] [address] Dr. Kristen Dominguez (RBC) [Entitic mass]27.1 foYlqqvf71.7-34.0The St. Charles HospitalComment on above:Performed By: #### CBC #### [facility] [address] [place] [address] Dr. Kristen Dominguez (RBC) [Mass/Vol]32.3 g/bUUxxlsr71.9-35.2The [facility]. Charles HospitalComment on above:Performed By: #### CBC #### [facility] [address] [place] [address] Dr. Kristen Dominguez (RBC) [Entitic vol]84.0 gANjhzjr82.0-99.0The [facility] Charles HospitalComment on above:Performed By: #### CBC #### [facility] [address] [place] [address] Dr. Kristen Powell #0.7 103/ulNormal0.3-0.8The [facility]. Charles HospitalComment on above:Performed By: #### CBC #### [facility] [address] [place] [address] Dr. Kristen Bagleyocytes/100 WBC (Bld)7.6 %Normal1.7-12.0The [facility] Comment on above:Performed By: #### CBC #### [facility] [address] [place] [address] Dr. Kristen Kim #6.6 103/ulCritically high1.4-6.5The [facility] Comment on above:Performed By: #### CBC #### [facility] [address] [place] [address] Dr. Kristen Da Silvautrophils/100 WBC (Bld)72.3 %Zazbbo00.0-75.0The [facility] Charles HospitalComment on above:Performed By: #### CBC #### [facility] [address] [place] [address] Dr. Kristen GambinoPlatelet mean volume (Bld) [Entitic vol]9.8 fLNormal9.5-13.5The St. Charles HospitalComment on above:Performed By: #### CBC #### [facility] [address] [place] [address] Dr. Kristen CheathamT427 103/hqTvpqat733-118Uht St. Charles HospitalComment on above: Performed By: #### CBC #### [facility] [address] [place] [address] Dr. Kristen GambinoRBC5.31 106/ulNormal4.20-5.40The St. Charles HospitalComment on above:Performed By: #### CBC #### [facility] [address] [place] [address] Dr. Kristen GambinoWBC9.1 103/ulNormal4.0-11.0The [facility]. Charles HospitalComment on above: Performed By: #### CBC #### [facility] [address] [place] [address] Dr. Kristen GambinoLIPID PROFILEon 71-61-0112EHSX-HDL RATIO NORMSEE [facility] HospitalComment on above:Result Comment: 3.3 - 4.4 LOW RISK 4.4 - 7.1 AVERAGE RISK 7.1 - 11.0 MODERATE RISK >11.0 HIGH RISKPerformed By: #### CMP, LIPID #### [facility] [address] [place] [address] Dr. Kristen GambinoCholesterol [Mass/Vol]186 mg/dLNormal<=200The [facility] Comment on above:Performed By: #### CMP, LIPID #### [facility] [address] [address] [address] Kristen GambinoCholesterol in HDL [Mass/Vol]43 mg/oGChbdnh35-64Nrm St. Charles HospitalComment on above:Performed By: #### CMP, LIPID #### [facility] [address] [place] [address] Dr. Kristen GambinoCholesterol in LDL [Mass/Vol]106.6 mg/dLNoUC Medical CenterComment on above:Performed By: #### CMP, LIPID #### [facility] [address] [place] [address] Dr. Kristen Barrientosesternhung.total/Cholesterol in HDL [Mass ratio]4.3 {ratio} NormalThe St. Charles HospitalComment on above:Performed By: #### CMP, LIPID #### [facility] [address] [place] [address] Dr. Kristen Salinas NORMAL> or = 60 mg/dl - LOW CARDIOVASCULAR RISK <40 mg/dl - HIGH CARDIOVASCULAR RISKNoUC Medical CenterComment on above:Performed By: #### CMP, LIPID #### [facility] [address] [place] [address] Dr. Kristen Stearns CALC NORMALSEE BELOWSelect Medical Cleveland Clinic Rehabilitation Hospital, Edwin ShawComment on above:Result Comment: <100 mg/dl OPTIMAL 100 - 129 mg/dl NEAR OR ABOVE OPTIMAL 130 - 159 mg/dl BORDERLINE HIGH 160 - 189 mg/dl HIGH >190 mg/dl VERY HIGH Performed By: #### CMP, LIPID #### [facility] [address] [place] [address] Dr. Kristen GambinoTriglyceride [Mass/Vol]182 mg/dLCritically high<=150The St. Charles HospitalComment on above:Performed By: #### CMP, LIPID #### [facility] [address] [place] [address] Dr. Kristen GambinoVLDL CALC36.4 mg/dLNoUC Medical CenterComment on above: Performed By: #### CMP, LIPID #### [facility] [address] [address] [address] Kristen GambinoPROF 14(COMP METB)on 21-23-5273Agwvstx [Mass/Vol]3.7 g/dLNormal 3.4-5.0[facility] HospitalComment on above:Performed By: #### CMP, LIPID #### [facility] [address] [address] [address] Kristen GambinoAlbumin/Globulin [Mass ratio]0.8 {ratio}NormalThe St. Charles HospitalComment on above:Performed By: #### CMP, LIPID #### [facility] [address] [place] [address] Dr. Kristen Madrid [Catalytic activity/Vol]70 U/YSofwzf96-913Iju St. Charles HospitalComment on above:Performed By: #### CMP, LIPID #### [facility] [address] [place] [address] Dr. Kristen June [Catalytic activity/Vol]35 U/CUmijas46-49Rve St[address] Charles HospitalComment on above:Performed By: #### CMP, LIPID #### [facility] [address] [place] [address] Dr. Kristen Rojo gap [Moles/Vol]13.1 mmol/LNormalThe [facility] Comment on above:Performed By: #### CMP, LIPID #### [facility] [address] [place] [address] Dr. Kristen Wyman [Catalytic activity/Vol]19 U/KBwfsyo31-49Cds St. Charles HospitalComment on above:Performed By: #### CMP, LIPID #### [facility] [address] [place] [address] Dr. Kristen GambinoBilirubin [Mass/Vol]0.7 mg/dLNormal0.2-1.3The [facility] Comment on above:Performed By: #### CMP, LIPID #### [facility] [address] [place] [address] Dr. Kristen GambinoCalcium [Mass/Vol]8.5 mg/dLNormal8.5-10.1The [facility] Comment on above:Performed By: #### CMP, LIPID #### [facility] [address] [address] [address] Kristen GambinoChloride [Moles/Vol]102 mmol/LBbcnxc98-218Rae [facility] Comment on above:Performed By: #### CMP, LIPID #### [facility] [address] [address] [address] Kristen GambinoCO2 [Moles/Vol]25.9 mmol/XUizkfe89.0-30.0The [facility] Comment on above:Performed By: #### CMP, LIPID #### [facility] [address] [address] [address] Kristen GambinoCreatinine [Mass/Vol]0.62 mg/dLNormal0.52-1.04The [facility]. [facility] HospitalComment on above:Performed By: #### CMP, LIPID #### [facility] [address] [place] [address] Dr. Kristen VelasquezGFR-AF NAURUAN>60Normal>=60The St. Charles HospitalComment on above:Performed By: #### CMP, LIPID #### [facility] [address] [place] [address] Dr. Kristen Shirley-NON AF NAURUAN>60Normal>=60The [facility]. [facility] HospitalComment on above:Performed By: #### CMP, LIPID #### [facility] [address] [address] [address] Kristen GambinoGlobulin (S) [Mass/Vol]4.4 g/dLNormalThe St. Charles HospitalComment on above:Performed By: #### CMP, LIPID #### [facility] [address] [address] [address] Kristen GambinoGlucose [Mass/Vol]104 mg/rAErycxr16-522Bdp [facility] Comment on above:Performed By: #### CMP, LIPID #### [facility] [address] [place] [address] Dr. Kristen GambinoPotassium [Moles/Vol]4.0 mmol/LNormal3.4-5.0The [facility] Comment on above:Performed By: #### CMP, LIPID #### [facility] [address] [address] [address] Kristen GambinoProtein [Mass/Vol]8.1 g/dLNormal6.1-8.2[facility] Comment on above:Performed By: #### CMP, LIPID #### [facility] [address] [address] [address] Kristen GambinoSodium [Moles/Vol]137 mmol/XSyytok882-135TnnOhiohealth Pickerington Methodist Hospital Comment on above:Performed By: #### CMP, LIPID #### [facility] [address] [place] [address] Dr. Kristen GambinoUrea nitrogen [Mass/Vol]12.0 mg/dLNormal7.0-18.0[facility] HospitalComment on above:Performed By: #### CMP, LIPID #### [facility] [address] [place] [address] Dr. Kristen Watkins nitrogen/Creatinine [Mass ratio]19.4 mg/mgNormalThe St. Charles HospitalComment on above:Performed By: #### CMP, LIPID #### [facility] [address] [place] [address] Dr. Kristen GambinoPROGRAngie [id number] ID: [id number]: Isaac Carrasco: (none)Author Type: PhysicianType: Progress NotesFiled: 10/21/2017 2:01 PMNote Text:PATIENT NAME: Gladis PatelarMRN: [id number] PHYSICIAN: MICHAEL Rubin0 Kelley Segura [facility] [id number] CARE PHYSICIAN: MASOOD Rubin PHYSICIANS:CHIEF COMPLAINT: Pituitary [...] for5 days straight. Went to ER 02/26. [place] was negative, strep negative.Flu negative. She was [...] I answe red all questionssatisfactorily..Hai Shelton D.O.Medical OncologistCornerstone Specialty HospitalCNOVSPon 10-20-2017 CNOVSPVisit (SP) Office ([place]) --------CHIPALEXXGLADIS Daniels ([id number]) 1975 FDate Time Provider Department10/20/17 10:00 AM ISAAC SHELTON During your visit today, we recorded the following information about you: Temperature Pulse Respiration Blood pressure 98.5 degrees 69/minute 18/minute 159/106 Weight Height 105.9 kg 1.575 Kassidy Shelton DO 10/21/2017 2:01 PM SignedPATIENT NAME: Gladis Daniels JerrodRN: [id number] PHYSICIAN: MICHAEL Rubin0 Kelley Segura [facility] [id number] CARE PHYSICIAN: MASOOD Rubin PHYSICIANS:CHIEF COMPLAINT: Pituitary [...] for 5days straight. Went to ER 02/26. Monite[place] was negative, strep negative. Flunegative. 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]Order(s):CONSULT TO ENDOCRINOLOGY [9007] Order #: [id number]: 1Disposition: Return in about 7 months (around [...] FOR*Encounter Status:Closed by ISAAC SHELTON DO on 10/21/17NormalClevelReplaced by [facility] AnsonRemote Abs Gran + CBC (for [facility] use only)on 64-99-0175Awmev Gran Count 6.74 k/uLNormal1.45-7.50CleMercy Health Defiance HospitalErythrocyte distribution width Auto Ratio (RBC)13.9 %Wjodnp91.5-15.0[facility] Doctors HospitalErythrocytes (RBC)4.76 10*6/uLNormal3.90-5.20[facility] Doctors HospitalHematocrit (HCT)39.5 % Gqkfao97.0-46.0[facility] Doctors HospitalHemoglobin mass conc (Bld)13.4 g/dL Cidegt65.5-15.5CTogus VA Medical CenterMCH28.2 dIOxcdek04.0-34.0[facility] Atrium Medical CenterHC mass conc (RBC)33.9 g/nVDhyupp23.5-36.0[facility] Doctors HospitalMCV83.0 bBRxpmbu17.0-100.0[facility] Doctors HospitalPlatelet mean volume (PMV)9.4 fLNormal9.0-12.7CTogus VA Medical CenterPlatelets434 10*3/uL Xtim194-068KpqxyaxbuOhiohealth Doctors HospitalWBC (Leukocytes)10.26 10*3/uLNormal 3.70-11.00[facility] Doctors HospitalCNOVSPon 73-83-3335PHVMBCGtyar (SP) Office ([place]) --------GLADIS MICHAEL ([id number]) 1975 [facility] Time Provider Department10/09/17 11:15 AM ISAAC SHELTON [place] During your visit today, we recorded the following information about you: Temperature Pulse Respiration Blood pressure 98 degrees 75/minute 18/minute 151/106 Weight Height 111 kg 1.575 Isaac Myers 10/10/2017 2:10 AM SignedPATIENT NAME: Gladis ElderRN: [id number] PHYSICIAN: [place] [address]NKNIBXJ CARE PHYSICIAN: MASOOD Rubin PHYSICIANS:CHIEF COMPLAINT: Lymphocytosis [...] for 5days straight. Went to ER 02/26. [place] was negative, strep negative. Flunegative. She wasplaced [...] plan. I answered allquestions satisfactorily..Hai Shelton D.O.Medical OncologistTompkinsville, [place]Referring Provider: ISAAC SHELTON [[id number]]Allergies As of Date: 10/09/2017 Noted Allergy ReactionTOPROL XL (METOPROLOL) 04/11/2016 14 - Other: See Comments Comments: heart races per patientDate Reviewed: 10/09/2017Reviewed by: Denise Witt - Fully AssessedReason for Visit: lymphocytosis [Other] Cmt: follow up per nursePrimary Visit Diagnosis:Lymphocytosis [D72.820] Other Visit Diagnosis:Cervical adenopathy [R59.0]Order(s):CT NECK SOFT TISSUE W IVCON [[id number]] Order #: [id number] FUTURE [] iv contrast (radiology procedure)Inject 1 [...] 1 EachRfl: 0 CT CHEST WO IVCON [[id number]] Order #: [id number] FUTURE CT CHEST W IVCON [[id number]] Order #: [id number] FUTURE iv contrast (radiology procedure)CT Chest W [...] by ISAAC SHELTON DO on 10/10/17[facility] HospitalPROGRESSon [id number] ID: [id number]: Isaac Shelton JService: (none)Author Type: PhysicianType: Progress No tesFiled: 10/10/2017 2:10 AMNote Text:PATIENT NAME: Gladis PatelarMRN: [id number] PHYSICIAN: MICHAEL Rubin0 Kelley Segura [facility] [id number] CARE PHYSICIAN: MASOOD Rubin PHYSICIANS:CHIEF COMPLAINT: Lymphocytosis [...] and throat evaluation likely from clinic main [place] physician. We will continue to monitor her [...] for5 days straight. Went to ER 02/26. Moniteau was negative, strep negative.Flu negative. She was [...] plan.I answered all questions satisfactorily..Hai Shelton D.O.Medical OncologistMercy Health Defiance Hospital 24-34-6550aRGI50.4 sLow23.0-32.4CTogus VA Medical CenterComment on above:Result Comment: Unfractionated Heparin Therapeutic Ranges:Standard [...] laboratory APTT reagent in use throughout the [facility].Performed By: #### PT, PTT, BMP, HFP, LD6, WSR, SEPG, MPASRM, KLFRS ####[place] [address]CHugg[address], [place] [phone] Metabolic Panlon 57-51-2534Lyxyr gap12 mmol/LNormal9-18 [facility] on above:Performed By: #### PT, PTT, BMP, HFP, LD6, WSR, SEPG, MPASRM, KLFRS ####[place] [address]CHugg[address], [place] [phone] mg/dLNormal8.5-10.2CMercy Health St[facility] on above:Performed By: #### PT, PTT, BMP, HFP, LD6, WSR, SEPG, MPASRM, KLFRS ####[place] [address], [place] [phone] mmol/MZyd14-646MegcrkqzgOhiohealth Doctors Hospital Comment on above:Performed By: #### PT, PTT, BMP, HFP, LD6, WSR, SEPG, MPASRM, KLFRS ####[place] [address], [place] [phone] mmol/YBqhnsf84-07YptxsdkqqFairfield Medical Center on above:Performed By: #### PT, PTT, BMP, HFP, LD6, WSR, SEPG, MPASRM, KLFRS ####[place] [address], [place] [phone] mg/dLLow0.58-0.96[facility] Comment on above:Performed By: #### PT, PTT, BMP, HFP, LD6, WSR, SEPG, MPASRM, KLFRS ####[place] [address], [place] [phone] (non-black)mL/min/{1.73_m2}NormalFairfield Medical Center on above:Result Comment: eGFR (Estimated GFR) Units [...] LD6, WSR, SEPG, MPASRM, KLFRS ####[facility] [address] AvM[address], [place] [phone] mass conc81 mg/hYZsjmyh82-20FfxyhlnlyOhiohealth Doctors Hospital Comment on above:Result Comment: The [place] Diabetes Association (ADA) provides guidance for cutoff [...] Standards of Medical Care in Diabetes 2016, [place] [employer]. Diabetes Care. 2016.39(Suppl 1).Performed By: #### PT, PTT, BMP, HFP, LD6, WSR, SEPG, MPASRM, KLFRS ####[facility] [address] [place], [place] [phone] molar conc4.4 mmol/L Normal3.7-5.1CMercy Health St[facility] on above:Performed By: #### PT, PTT, BMP, HFP, LD6, WSR, SEPG, MPASRM, KLFRS ####[facility] [address], [place] [phone] mmol/ZUep991-635 [facility] on above:Performed By: #### PT, PTT, BMP, HFP, LD6, WSR, SEPG, MPASRM, KLFRS ####[address] [place] [phone] thwyzfjx64 mg/dLNormal7-21[facility] on above:Performed By: #### PT, PTT, BMP, HFP, LD6, WSR, SEPG, MPASRM, KLFRS ####[place] [phone] Functn Panelon 10-59-1016Smpolcx aminotransferase (ALT)20 U/LNormal7-38[facility] on above:Performed By: #### PT, PTT, BMP, HFP, LD6, WSR, SEPG, MPASRM, KLFRS ####[place] [phone] g/dL Normal3.9-4.9CMercy Health St. [facility] on above:Performed By: #### PT, PTT, BMP, HFP, LD6, WSR, SEPG, MPASRM, KLFRS ####[facility] [address] [place] [phone] phosphatase (ALP)64 U/FUmmbjm99-505FshsapjkkFairfield Medical Center on above:Performed By: #### PT, PTT, BMP, HFP, LD6, WSR, SEPG, MPASRM, KLFRS ####[facility] [address] [place] [phone] aminotransferase (AST)14 U/TUcqrzd86-77CuykzocypFairfield Medical Center on above:Performed By: #### PT, PTT, BMP, HFP, LD6, WSR, SEPG, MPASRM, KLFRS ####[address] [phone] (total)0.3 mg/dLNormal0.2-1.3CMercy Health St. [facility] on above:Performed By: #### PT, PTT, BMP, HFP, LD6, WSR, SEPG, MPASRM, KLFRS ####[place] [address], [place] [phone],Conjugated <0.2Normal<0.2CMercy Health St. [facility] on above:Performed By: #### PT, PTT, BMP, HFP, LD6, WSR, SEPG, MPASRM, KLFRS ####[facility] [address] Av[address] [place] [phone] g/dLNormal6.3-8.0 [facility] on above:Performed By: #### PT, PTT, BMP, HFP, LD6, WSR, SEPG, MPASRM, KLFRS ####[place] [phone]/Cope,Free,Seron 10-06-2017K/L Ratio, Serum1.10Dcfh3.26-1.65[facility] on above:Performed By: #### PT, PTT, BMP, HFP, LD6, WSR, SEPG, MPASRM, KLFRS ####[place] [address], [place] [phone], Free, Serum 22.5 mg/LHigh3.30-19.40[facility] on above:Result Comment: Rarely, increased serum free light chains values may not be detected due to antigenexcess phenomenon. Results should always be correlated with other laboratory results and clinical findings.Performed By: #### PT, PTT, BMP, HFP, LD6, WSR, SEPG, MPASRM, KLFRS ####[place] [address]CH[address], [place] [phone], Free, Serum12.3 mg/LNormal5.7-26.3 [facility] on above:Result Comment: Rarely, increased serum free light chains values may not be detected due to antigenexcess phenomenon. Results should always be correlated with other laboratory results and clinical findings.Performed By: #### PT, PTT, BMP, HFP, LD6, WSR, SEPG, MPASRM, KLFRS ####[facility], [place] [phone] 56-92-1280PB167 U/ZHvxiqz867-965IwfzmepduOhiohealth Doctors Hospital Comment on above:Performed By: #### PT, PTT, BMP, HFP, LD6, WSR, SEPG, MPASRM, KLFRS ####[address], [place] [phone] Protein,Blon 11-77-7448CCX InterpretationSEE COMMENT NormalFairfield Medical Center on above:Result Comment: Atypical restricted bands are present in the IgG and lambda regions. Consistent with IgG lambda monoclonal gammopathy.Performed By: #### PT, PTT, BMP, HFP, LD6, WSR, SEPG, MPASRM, KLFRS ####[address] [phone] Parminder/Milner Ratio2.03Zvorch8-9NzhkingcxTogus VA Medical Center Comment on above:Performed By: #### PT, PTT, BMP, HFP, LD6, WSR, SEPG, MPASRM, KLFRS ####[place] [address] Av[place], [place] [phone] ResultM protein is present.Critically abnormalNo M protein is identified.[facility] on above:Performed By: #### PT, PTT, BMP, HFP, LD6, WSR, SEPG, MPASRM, KLFRS ####[facility] [address], [place] [phone] Serum QlS821 mg/dLNormal 78-391[facility] on above:Performed By: #### PT, PTT, BMP, HFP, LD6, WSR, SEPG, MPASRM, KLFRS ####[facility]CH[address], [place] [phone] Serum CgI0719 mg/vNGjaz385-0881 [facility] on above:Performed By: #### PT, PTT, BMP, HFP, LD6, WSR, SEPG, MPASRM, KLFRS ####[place] [address] AveCMatthew [place] [phone] Serum ImH793 mg/qMGfyszk97-618QjpfbwnvyFairfield Medical Center on above:Performed By: #### PT, PTT, BMP, HFP, LD6, WSR, SEPG, MPASRM, KLFRS ####[address] AveCMatthew [place]ille [phone] Squhf8774 mg/uXOljprt161-9396SsyyvyfaqFairfield Medical Center on above:Performed By: #### PT, PTT, BMP, HFP, LD6, WSR, SEPG, MPASRM, KLFRS ####[place] [address]CH[address], [place] [phone] Yivieo336 mg/hEYoedfx550-242BmfolqfzuWood County Hospital on above:Performed By: #### PT, PTT, BMP, HFP, LD6, WSR, SEPG, MPASRM, KLFRS ####[place] [address]CH[address], [place] [phone] ReviewReviewed by Delores Means MD ([id number])Normal [facility] on above:Performed By: #### PT, PTT, BMP, HFP, LD6, WSR, SEPG, MPASRM, KLFRS ####[place] [address] AveCHuggins, [place] [phone] Electrophor.on 53-18-8437Ulmwzrv3.93 g/dLNormal3.37-4.23[facility] on above:Performed By: #### PT, PTT, BMP, HFP, LD6, WSR, SEPG, MPASRM, KLFRS ####[address] [place] [phone] 1 Globulin0.16 gm/dLLow0.18-0.31[facility] on above:Performed By: #### PT, PTT, BMP, HFP, LD6, WSR, SEPG, MPASRM, KLFRS ####[place] [phone] 2 Globulin0.80 gm/dLNormal0.52-0.97[facility] on above:Performed By: #### PT, PTT, BMP, HFP, LD6, WSR, SEPG, MPASRM, KLFRS ####[place] [phone] Globulin1.11 gm/dLNormal0.84-1.36[facility] on above:Performed By: #### PT, PTT, BMP, HFP, LD6, WSR, SEPG, MPASRM, KLFRS ####[place] [phone] Globulin1.49 gm/dLHigh0.70-1.44[facility] on above:Performed By: #### PT, PTT, BMP, HFP, LD6, WSR, SEPG, MPASRM, KLFRS ####[address] [phone] COMMENTNormalCMercy Health St. [facility] on above:Result Comment: An M protein is identified on protein electrophoresis.See separate immunofixation re port for characterization of the M protein.M protein is present on the background of a polyclonal immunoglobulin population. Quantitation of the M protein may overestimate the amount of M protein present.Performed By: #### PT, PTT, BMP, HFP, LD6, WSR, SEPG, MPASRM, KLFRS ####[facility] [address] [place], [place] [phone] Protein LocationGamma fractionNormalCMercy Health St. [facility] on above:Performed By: #### PT, PTT, BMP, HFP, LD6, WSR, SEPG, MPASRM, KLFRS ####[facility] [address] [place], [place] [phone] Ja Concentratn0.18 gm/dL High0.00[facility] on above:Performed By: #### PT, PTT, BMP, HFP, LD6, WSR, SEPG, MPASRM, KLFRS ####[address] [phone] Staff ReviewReviewed by Delores Means MD ([id number])NormalFairfield Medical Center on above:Performed By: #### PT, PTT, BMP, HFP, LD6, WSR, SEPG, MPASRM, KLFRS ####[address] [phone] Protein, SPE 7.5 g/dLNormal6.0-8.4CMercy Health St[facility] on above:Performed By: #### PT, PTT, BMP, HFP, LD6, WSR, SEPG, MPASRM, KLFRS ####[address], [place] [phone] 10-06-2017 INR Coag RelTime (Bld)1.0 {INR}Normal0.9-1.3CMercy Health St. [facility] on above:Result Comment: Vitamin K Antagonist (VKA) Therapeutic Range: INR 2 to 3 (Target INR of 2.5)Note: For patients treated with VKA drugs, such as warfarin, the [place] [employer] 2012 Guideline recommends [...] al. Chest 2012, 141:7S-47SNishimura RA, et al. [facility] 2017, 70: 252-289Performed By: #### PT, PTT, BMP, HFP, LD6, WSR, SEPG, MPASRM, KLFRS ####[address]Samuel [place] [phone] By: #### VWFPN ####[place] [phone] Sec10.3 secNormal9.7-13.0[facility] on above:Performed By: #### PT, PTT, BMP, HFP, LD6, WSR, SEPG, MPASRM, KLFRS ####[place] [phone] By: #### VWFPN ####[place] [phone] CBCDIF (for [facility] use only)on 74-82-8254Esm Baso0.12 k/uLHigh<0.11CMercy Health St. [facility] on above: Performed By: #### RCBCDF ####[address] [place] [phone] Mono0.85 k/uLNormal<0.87[facility] on above:Performed By: #### RCBCDF ####[address] [place] [phone] Neut9.52 k/uL High1.45-7.50[facility] on above:Performed By: #### RCBCDF ####[address] [phone]/100 WBC Auto (Bld)0.9 %NormalFairfield Medical Center on above:Performed By: #### RCBCDF ####[address] [phone] DiffNormal [facility] on above:Performed By: #### RCBCDF ####[address] [phone] 10*3/uLNormal<0.46[facility] on above:Performed By: #### RHYS ####[address] [phone]/100 leukocytes0.9 %Normal [facility] on above:Performed By: #### RCSHANNONDF ####[address] [phone] distribution width Auto Ratio (RBC)13.8 %Huldgg27.5-15.0 [facility] on above:Performed By: #### RCBCDF ####[place] [address], [place] [phone] (RBC)10*6/uLNormal<0.01[facility] on above:Performed By: #### RCBCDF ####[address] [phone] (RBC)0.0 /100 WBCNormal0 [facility] on above:Performed By: #### RCBCDF ####[address] [place] [phone] (RBC)4.46 10*6/uLNormal3.90-5.20[facility] Comment on above:Performed By: #### RCBCDF ####[place] [phone] (HCT)37.7 %Normal 36.0-46.0[facility] Doctors HospitalComment on above:Performed By: #### RCBCDF ####[place] [phone] mass conc (Bld)12.6 g/xNLqostf38.5-15.5CMercy Health St[facility] on above:Performed By: #### RCBCDF ####[place] [phone] 10*3/uLNormal1.00-4.00[facility] Doctors HospitalComment on above:Performed By: #### RCBCDF ####[place] [phone]/100 gpuqawwzdk25.1 %NormalFairfield Medical Center on above:Performed By: #### RCBCDF ####[place] [phone] pGNormal 26.0-34.0[facility] on above:Performed By: #### RCBCDF ####[place] [phone] mass conc (RBC)33.4 g/cYYjcnhv51.5-36.0[facility] Comment on above:Performed By: #### RCBCDF ####[place] [address] [place] [phone] aMYcqngj32.0-100.0[facility] on above:Performed By: #### RCBCDF ####[place] [address]CH[address], [place] [phone]/100 leukocytes6.4 %NormalOhioHealth Doctors Hospitalment on above:Performed By: #### RCBCDF ####[place] [address], [place] [phone]/100 WBC Auto (Bld)71.7 %NormalFairfield Medical Center on above:Performed By: #### RCBCDF ####[place] [address] [place], [place] [phone] mean volume (PMV)10.0 fLNormal9.0-12.7CMercy Health St[facility] on above:Performed By: #### RCBCDF ####[place] [address], [place] [phone] 10*3/iTOhlz935-714XcifmwnszOhiohealth Doctors Hospital Comment on above:Performed By: #### RCBCDF ####[place] [address] [place], [place] [phone] (Leukocytes)13.28 10*3/uLHigh 3.70-11.00[facility] on above:Performed By: #### RCBCDF ####[place] [address] Av[place], [place] [phone] Rate Westergrenon 61-95-8692Jjf Rate Rsafaghwiu08 mm/hrHigh0-20 [facility] on above:Performed By: #### PT, PTT, BMP, HFP, LD6, WSR, SEPG, MPASRM, KLFRS ####[place] [address], [place] [phone] Willebrand Diagon 29-56-9503pKTR67.7 s Hujpjw56.0-32.4CMercy Health St. [facility] on above:Result Comment: Unfractionated Heparin Therapeutic [...] laboratory APTT reagent in use throughout the [facility].Performed By: #### VWFPN ####[place] [address], [place] [phone]/VWF Ratio 0.7Normal>0.5CMercy Health St. [facility] on above:Performed By: #### VWFPN ####[address] [phone]/ADP Szbatfxwh401 CT (sec)High<118[facility] on above:Result Comment: Results are reported as Closure Time (CT) in seconds. Performed By: #### VWFPN ####[address] [phone]/EPI Ndideqppt207 CT (sec)Normal<199 [facility] on above:Result Comment: Results are reported as Closure Time (CT) in seconds.Performed By: #### VWFPN ####[address] [phone] Binding-CBA 118 %Pedubs60-872MrlrkbgtaFairfield Medical Center on above:Result Comment: This test uses a reagent or kit labeled by the group sales manager as research use only a nd it is used per group sales manager's instructions. Its performance characteristics were determined by [facility] [place] in a manner consistent with CLIA requirements. This test has not been cleared by the U.S. Food and Drug Administration.Performed By: #### VWFPN ####[facility] [place], [place] [phone] VIII:C Yylca756 %Hsdwtc85-219ZqxzvuwehOhiohealth Doctors Hospital Comment on above:Performed By: #### VWFPN ####[place] [address] [place], [place] [phone]/VWF Ratio1.0Normal>0.4CMercy Health St. [facility] on above:Performed By: #### VWFPN ####[place] [address] [place], [place] [phone](VW) (NOTE)NormalFairfield Medical Center on above:Result Comment: Performing Pathologist: Joleen Hector [...] clinical findingsand medication history.Performed By: #### VWFPN ####[place] [address]CH[address], [place] [phone] AggregNormal dose responseNormalCMercy Health St. [facility] on above:Performed By: #### VWFPN ####[place] [address]CH[address], [place] [phone] Co-Factor 150 %Rpeg61-010BnwrmtxtbFairfield Medical Center on above:Performed By: #### VWFPN ####[place] [address], [place] [phone]/VWF Ratio0.9Normal>0.4CTogus VA Medical Center Comment on above:Performed By: #### VWFPN ####[address] AveCHugg[address], [place] [phone] Willebrand Ag159 %Aoescb14-476 [facility] on above:Performed By: #### VWFPN ####[address], [place] [phone] Willebrand MultNormal multimer amount and pattern.NormalFairfield Medical Center on above:Result Comment: Reviewed by Joleen Hector M.D.,Ph.D ([id number])This test was developed and its performance characteristics determined by [facility]'s [facility] [place] ([facility]PL[facility]).It has not been cleared or approved by the FDA. [facility] is regulated under CLIA as qualified to perform high-complexity testing.This test is used for clinical purposes. It should not be regarded as investigational or for research.Performed By: #### VWFPN ####[address] AveCHuggins, [place] [phone] 09-25-2017 CNOVOffice Visit (CARDFT) --------GLADIS MICHAEL ([id number]) 1975 [facility] Fargote Time Provider Department09/25/17 10:30 AM JESUS CHEATHAM During your visit today, we recorded the following information about you: PulseRespiration Blood pressure Weight 68/minute 18/minute 139/78 108 kg Height 1.575 Rishi Cheatham MD 09/25/2017 10:54 AM Pending sale to [facility] Department of Cardiovascular MedicineOUTPATIENT VISIT DATE 09/25/16OUTPATIENT VISIT TYPEESTABLCONE HEALTH ALAMANCE REGIONALPRSELECT [facility] CARE PHYSICIAN:Joseph Harris DO[address] [facility] [place] [address]Nzzqy: [phone]: [phone] F COMPLAINT:Patient presents with:Follow UpHISTORY OF PRESENT ILLNESS:Gladis Michael is a 41 year old female with a past cardiac history ofpalpitations, hypertensive episodes associated with flushing.05/22/2017The patient presents today as a new consult. The patient has previously beencared for by [place] in [place]. She has been on pindolol andlisinopril for many years. She apparently did not tolerate metoprolol in thepast. She claims that metoprolol made her heart rate go into nsf249k. Thepatient states that she has episodes off and on of a flushed feeling followedby high bloodpressure readings and dizziness. She also feels her heartracing. She feels this has been worse overthe past 2 weeks. She has hadepisodes like this though for many years. [facility], pharmacologic stress, echo and monitors. Unfortunately Gregory not have any of those records to review. The patient wasseen in the emergency room earlier todayfor epistaxis. She also [place]he [place] with a complaint of dizziness. [...] kg (238 lb) SpO2 100% BMI 43.53 kg/y9Ighevpj: Well appearing, in no acute distress.Eyes: Conjunctiva [...] performed on 08/28/2015 revealed an average heart gkunxl87 bpm. The range was 45-126 bpm. The [...] for years. Patient had negative workup in [place]. Placed onpindolol and lisinopril.4. Non-rheumatic mitral regurgitation, [...] physician by way [facility] or to the requesting physician via U.S. Mail.This document was generated utilizing [employer] dictation. I have reviewed andverified that the contentsof the document are accurate with the exception ofminor grammatical, spelling and punctuation errors.CONTACT INFORMATION:Thank you for allowing us to participate in the care of this very pleasantpatient. Please free to contact us if we can be of any further assistance.Jesus Cheatham MD, FACCRobert and Mary MurrayDepartment of Cardiovascular MedicineOur Lady Of Mercy Hospitalrt and Vascular Institute[address] [address]Egkwrz: [phone] Referring Provider: JSOEPH HARRIS [[id number]]Allergies As of Date: 09/25/2017 Noted Allergy ReactionTOPROL XL (METOPROLOL) 04/11/2016 14 - Other: See Comments Comments: heart races per patientDateReviewed: 09/25/2017Reviewed by: Jesus Cheatham - Fully AssessedReason for Visit: Follow Up [171]Primary Visit Diagnosis:Essential hypertension [I10] Other Visit Diagnoses:Premature atrial complexes [I49.1] PVC (premature ventricular contraction) [I49.3] Obesity, Class III, BMI 40-49.9 (morbid obesity) ([facility]) [E66.01]Order(s):lisinopril (ZESTRIL, PRINIVIL) 5 mg [...] RN 09/25/2017 10:15 AM >> JEROME BYRNES [facility] Sep 25, 2017 10:15 AM Received from: External Pharmacy >> Shane Velasquez RN 09/25/2017 10:16 AM >> JEROME BYRNES [facility] Sep 25, 2017 10:16 AMProblem List [...] by NANI CHEATHAM MD on 09/25/17Normal [facility] Doctors HospitalPROGRESSon [id number] ID: [id number]: Jesus Petersonervice: (none)Author Type: PhysicianType: Progress N otesFiled: 09/25/2017 10:54 AMNote Text:Heart and V[facility] Department of Cardiovascular MedicineOUTPATIENT VISIT DATE 09/25/16OUTPATIENT VISIT TYPEESTABLCONE HEALTH ALAMANCE REGIONALPRDEKALB [facility] PHYSICIAN:Joseph Harris, DO[address] [place] [address]Lvreq: [phone]: [phone] COMPLAINT:Patient presents with:Follow UpHISTORY OF PRESENT ILLNESS:Gladis Michael is a 41 year old female with a past cardiac history ofpalpitations, hypertensive episodes associated with flushing.05/22/2017The patient presents today as a new consult. The patient has previouslybeen cared for by [place] in [place]. She has been on pindolol andlisinopril for many years. She apparently did not tolerate metoprolol inthe past. She claims that metoprolol made her heart ratego into cun623c. The patient states that she has episodes off and on of a flushedfeeling followed by high blood pressure readings and dizziness. She alsofeels her heart racing. She feels this has been worse over the past 2weeks. She has had episodes like this though for many years. [facility] a cardiac CTA,pharmacologic stress, echo and monitors. Unfortunately I do not have anyof those records to review. The patient was seen in the emergency roomearer today for epistaxis. [place] of [place]. Her workup wasnegative. There was no evidence of any arrhythmia during her workup hereat this emergency room today. Her blood tests were within normal limits.Her troponin was normal. EKG was unremarkable. The patient admits thatshe gets very anxious. She has had problems with this for some time. Herlake [facility] care physician has started her on [...] kg (238 lb) SpO2 100% BMI 43.53 kg/w1Ievmqpm: Well appearing, in no acute distress.Eyes: Conjunctiva [...] for years. Patient had negative workup in [place]. Placedon pindolol and lisinopril.4. Non-rheumatic mitral regurgitation, [...] physician by way [facility] or to the requesting physician via U.S. Mail.This document was generated utilizing [employer] dictation. I have reviewedand verified that the contents of the document are accurate with theexception of minor grammatical, spelling and punctuation errors.CONTACT INFO RMATION:Thank you for allowing us to participate in the care of this very pleasantpatient. Please free to contact us if we can be of any furtherassistance.Jesus Cheatham MD, FACCRobert and Mary MurrayDepartment of Cardiovascular MedicineOur Lady Of Mercy Hospitalrt and Vascular Institute[address], [place] [address]Fhwlmh: [phone] NormalCTogus VA Medical CenterCT-CT Head or Brain w/o Contrast IMPORTon 06-65-6466IK-CT Head or Brain w/o Contrast IMPORT Images were obtained outside of [facility] [id number] Doctors HospitalCNOVSPon 76-38-5731CMVZNN Visit (SP) Office (VEE) --------FERNANDAGLADIS ([id number]) 1975 FDate Time Provider Xpfwteqyou46/28/17 3:15 PM ISAAC SHELTON During your visit today, we recorded the following information about you: Temperature Respiration Blood pressure Weight 98.7 degrees 18/minute 168/82 105.1 kg Height 1.6 HIvalorie Shelton DO 06/07/2017 12:55 AM SignedPATIENT NAME: Gladis PatelarMRN: [id number]: Joseph Harris DO[address] [place] [address] PHYSICIAN: MASOOD Rubin PHYSICIANS:CHIEF COMPLAINT: Lymphocytosis [...] for5 days straight. Went to ER 02/26. Moniteau was negative, strep negative. Flunegative. She was [...] racing heart and elevated BP.She previously saw um rn in [place].She is scheduled for echo. She has valvular issues [place]. Cough, sore throat [...] plan. I answered allquestions satisfactorily..Hai Shelton D.O.Medical OncologistTompkinsville, [place]Referring Provider: ISAAC SHELTON [[id number]]Allergies As of Date: 06/05/2017 Noted Allergy ReactionTOPROL XL (METOPROLOL) 04/11/2016 14 - Other: See Comments Comments: heart races per patientDate Reviewed: 06/05/2017Reviewed by: Donna Favio - Fully AssessedReason for Visit: Lymphocytosis [Other] Cmt: 5 week follow upPrimary Visit Diagnosis:Lymphocytosis [D72.820] Other Visit Diagnosis:Cervical adenopathy [R59.0]Order(s):HIV 1,2 COMBO (AG/AB) [SQHIV12] Order #: [id number] FUTUREDisposition: Return in about 1 year (around 06/05/2018), or cancel ENT f/u in [place]..Follow-up and Disposition History RecordedPrescriptions as of 06/05/2017 [...] by ISAAC SHELTON DO on 06/07/17Normal [facility]health Doctors HospitalHIV 12 Combo (Ag/Ab)on 52-66-7716AXS 12 Ag/AbNon ReactiveNormalNon ReactiveOhiohealth Doctors HospitalComment on above:Result Comment: (NOTE)HIV Information: [place] Rev. Code 3701.243(E):This information has been disclosed [...] test results or diagnoses.Performed By: #### HIV12C ####[facility] Fpmfmmpwa[address] [place], [place] [id number] 79-11-9007CJLTSBUPXEE ID: [id number]: Isaac Carrasco: (none)Author Type: PhysicianType: Progress NotesFiled: 06/07/2017 12:55 AMNote Text:PATIENT NAME: Gladis PatelarMRN: [id number] PHYSICIAN: [place] [address]WPCOKWQ CARE PHYSICIAN: MASOOD Rubin PHYSICIANS:CHIEF COMPLAINT: Lymphocytosis [...] for5 days straight. Went to ER 02/26. Moniteau was negative, strep negative.Flu negat daquan. She [...] and racing heart and elevatedBP.She previously saw um rn in [place].She is scheduled for echo. She has valvular issues and was getting themyearly in [place] prior to moving here. Cough, sore throat [...] answered all questions satisfactorily..Hai Shelton D.O.Medical On [place], [place]NoGrand Lake Joint Township District [facility] Remote Abs Gran + CBC (for [facility] use only)on 43-74-6241Uezjb Gran Count10.28 k/uL High1.45-7.50Ohiohealth Doctors HospitalErythrocyte distribution width Auto Ratio (RBC)13.9 %Pkvxuu69.5-15.0Ohio[facility] Doctors HospitalErythrocytes (RBC)4.91 10*6/uLNormal3.90-5.20Ohio[facility] Doctors HospitalHematocrit (HCT)39.7 %Normal 36.0-46.0Ohio[facility] Doctors HospitalHemoglobin mass conc (Bld)13.2 g/dLNormal 11.5-15.5CTogus VA Medical CenterMCH26.9 hRSktbib95.0-34.0[facility]rium Medical CenterHC mass conc (RBC)33.2 g/sMAnedkm90.5-36.0[facility] MCV80.9 xWAxkoaz16.0-100.0[facility] Doctors HospitalPlatelet mean volume (PMV) 9.5 fLNormal9.0-12.7CTogus VA Medical CenterPlatelets497 10*3/nXJwtc782-232 [facility] Doctors HospitalWBC (Leukocytes)14.20 10*3/uLHigh3.70-11.00[facility] Doctors HospitalCNOVon 26-87-9275CAULEctctu Visit (CARDFT) --------GLADIS MICHAEL ([id number]) 1975 [facility] Time Provider Wksheuhnvc57/14/17 2:00 PM JESUS CHEATHAM During your visit today, we recorded the following information about you: PulseRespiration Blood pressure Weight 69/minute 18/minute 139/77 101.6 kg Height 1.6 Rishi Cheatham MD 05/22/2017 3:15 PM [facility] Vascular [facility] Department of Cardiovascular MedicineOUTPATIENT VISIT DATE 05/22/17OUTPATIENT VISIT TYPENEWLAFOURCHE, [facility] PHYSICIAN:Joseph Harris, DO[address] [place] [address]Urvkm: [phone]: [phone] COMPLA INT:Patient presents with:PalpitationsHISTORY OF PRESENT ILLNESS:Gladis Michael is a 41 year old female with a past cardiac history ofpalpitations, hypertensive episodes associated with flushing.The patient presents today as a new consult. The patient has previously beencared for by a um rn in [place]. She has been on pindolol andlisinopril for many years. [facility] She claims that metoprol[facility] made [...] years. She had a complete workup in [facility] including a cardiac CTA, pharmacologic stress, echo and monitors. Unfortunately I do not have any of those records to review. The patient wasseen in the emergency room earlier today for epistaxis.She also was seen int emergency room [place] last Friday with a complaint of dizziness. Herworkup was negative. There was no evidence of any arrhythmia during her workuphere at this emergency room today. Her blood tests were within normal limits.Her troponin was normal. EKG was unremarkable. The patient admits that shegets very anxious. She has had problems with this for some time. Her [facility] physician has started her on Zoloft. [...] kg (224 lb) SpO2 98% BMI 39.68 kg/b9Ohdeptb: Well appearing, in no acute distress.Eyes: Conjunctiva [...] for years. Patient had negative workup in [place]. Placed onpindolol and lisinopril.4. Non-rheumatic mitral regurgitation, [...] via U.S. Mail.This document was generated utilizing [employer]. I have reviewed andverified that the contents of the document are accurate with the exception ofminor grammatical, spelling and punctuation errors.CONTACT INFORMATION:Thank you for allowing us to participate in the care of this very pleasantpatient. Please free to contact us if we can be of any further assistance.Jesus Cheatham MD, [facility] and Mary MurrayAlpartment of Cardiovascular MedicineOur Lady Of Mercy Hospitalrt and Vascular Institute[address] [place], [place] [address]Sispnb: [phone] Referring Provider: ISAAC SHELTON [[id number]]Allergies As of Date: 05/22/2017 Noted Allergy ReactionTOPROL XL (METOPROLOL) 04/11/2016 14 - Other: See Comments Comments: heart races per pat ientDate Reviewed: 05/22/2017Reviewed by: Jesus Cheatham - Fully AssessedReason for Visit: Palpitations [79]Primary Visit Diagnosis:Premature atrial complexes [I49.1] Other Visit Diagnoses:PVC(premature ventricular contraction) [I49.3] Palpitations [R00.2] Non-rheumatic mitral regurgitation, mild [I34.0]Order(s):ECHO [[id number]] Order #: [id number]: 1 FUTUREPrescriptions as of 05/22/2017 Sig: PINDOLOL [...] FOR* Status:Closed by NANI CHEATHAM MD on 05/22/17NoMount [facility] 03-25-7669ZNIHJRXRUTO ID: [id number]: Jesus Petersonervice: (none)Author Type: PhysicianType: Progress NotesFiled: 05/22/2017 3:15 PMNote Text:Heart and Vascular InstituteRobchristus st. [facility] and Mary Murray Department of Cardiovascular MedicineOUTPATIENT VISIT DATE 05/22/17OUTPATIENT VISIT TYPENEWPRIMARY CARE PH YSICIAN:Joseph Harris DO[address] [place] [address]Hleso: [phone]: [phone] COMPLAINT:Patient presents with:PalpitationsHISTORY OF PRESENT ILLNESS:Gladis Michael josselin 41 year old female with a past cardiac history ofpalpitations, hypertensive episodes associated with flushing.The patient presents today as a new consult. The patient has previouslybeen cared for by a [place] rn in [place]. She has been on pindolol andlisinopril for many years. She apparently did not tolerate metoprolol inthe past. She claims that metoprolol made her heart rate go into qjo895v. The patient states that she has episodes off and on of a flushedfeeling followed by high blood pressure readings and dizziness. She alsofeels her heart racing. She feels this has been worse over the past 2weeks. She has had episodes like this though for many years. [facility] a cardiac CTA,pharmacologic stress, echo and monitors. Unfortunately I do not have anyof those records to review. The patient was seen in the emergency roomearer today for epistaxis. [place] of [place]. Her workup wasnegative. There was no evidence of any arrhythmia during her workup hereat this emergency room today. Her blood tests were within normal limits.Her troponin was normal. EKG was unremarkable. The patient admits thatshe gets very anxious. She has had problems with this for some time. [facility]. [...] kg (224 lb) SpO2 98% BMI 39.68 kg/w4Fvwjcut: Well appearing, in no acute distress.Eyes: Conjunctiva [...] occurring for years.Patient had negative workup in [place]. Placedon pindolol and lisinopril.4. Non-rheumatic mitral reg [...] requesting physicianvia U.S. Mail.Thisdocument was generated utilizing [employer] dictation. I have reviewedand verified that the contents ofthe document are accurate with theexception of minor grammatical, spelling and punctuation errors.CONTACT INFORMATION:Thank you for allowing us to participate in the care of this very pleasantpatient. Please free to contact us if we can be of any furtherassistance.Jesus Cheatham MD, FACCRobertanrobert Hernandez [facility] of Cardiovascular MedicineOur Lady Of Mercy Hospitalrt and Vascular Institute[address] [address]Rqzxvt: [phone] NoGrand Lake Joint Township District Memorial HospitalCNOVSPon 13-01-0302SZQWKDFugyy (SP) Office (HEMASA) --------GLADIS MICHAEL ([id number]) 1975 FDate Time Provider Nrcforbahx32/20/17 11:15 AM ISAAC SHELTON During your visit today, we recorded the following information about you: Temperature Pulse Respiration Blood pressure 98.7 degrees 71/minute 18/minute 151/101 Weight Height 103.2 kg 1.6 mTvalorie Shelton DO 05/03/2017 3:18 PM SignedPATIENT NAME: Gladis PatelarMRN: [id number] PHYSICIAN: Joseph Harris DO[address] [place] [address]TIWVHGN CARE PHYSICIAN: MASOOD Rubin PHYSICIANS:CHIEF COMPLAINT: Lymphocytosis [...] neoplasm.[facility]a r [facility] . We will continue to [...] for5 days straight. Went to ER 02/26. Moniteau was negative, strep negative. Flunegative. She was [...] I answered all questions satisfactorily..Hai Shelton D.O.Medical OncologistTompkinsville, [place]Referring Provider: ISAAC SHELTON [[id number]]Allergies As of Date: 04/28/2017 Noted Allergy ReactionTOPROL XL (METOPROLOL) 04/11/2016 14 - Other: See Comments Comments: heart races per patientDate Reviewed: 04/28/2017Reviewed by: Josephine Moscoso - Fully AssessedReason for Visit: Lymphocytosis [Other] Cmt: 3 week follow upPrimary Visit Diagnosis:Lymphocytosis [D72.820]Order(s):CT CHEST WO IVCON [[id number]] Order #: [id number] FUTURE CT CHEST W IVCON [4855645] Order #: [id number] FUTURE iv contrast (radiology procedure)CT Chest W [...] [address] CT NECK SOFT TISSUE W IVCON [7570435] Order #: [id number] FUTURE [] iv contrast (radiology procedure)Inject 1 [...] FOR*Encounter Status:Closed by ISAAC SHELTON DO on 05/03/17NoMount [facility]. [facility] 37-01-0184JVGZFZQQNHH ID: [id number]: Isaac SheltonService: (none)Author Type: PhysicianType: Progress NotesFiled: 05/03/2017 3:18 PMNote Text:PATIENT NAME: Gladis DamianarMRN: [id number] PHYSICIAN: [place] [address]RWJLNVE CARE PHYSICIAN: Joseph Harris DOOTHER PHYSICIANS:CHIEF COMPLAINT: [...] kidneyfunction, normal total protein and albumin, normal fjbtbnmdir46.4, normalkidney function, normal TSH.Family History.Mother has Jak2 positive essential thrombocytosis/polycythemia.Her sisters had similar disease.March 13, 2017 Feb 24 she went to her PCP forEar and throat pain. She had puspockets in her throat. She was given augmentin by Dr. Jose. Fever for5 days straight. Went to ER 02/26. Moniteau was negative, strep negative.Flu negative. She was [...] I answered all questions satisfactorily..Hai Shelton D.O.Medical OncologistCornerstone Specialty HospitalRemote Abs Gran + CBC (for [facility] use only)on 82-47-9139Opkhj Gran Count7.86 k/uLHigh1.45-7.50Ohio[facility] Doctors HospitalErythrocyte distribution width Auto Ratio (RBC)13.9 %Sltmdc64.5-15.0 [facility] Doctors HospitalErythrocytes (RBC)4.82 10*6/uLNormal3.90-5.20[facility] Doctors HospitalHematocrit (HCT)39.2 %Oqgeri65.0-46.0[facility] Hemoglobin mass conc (Bld)13.3 g/eVCwbopo23.5-15.5CProMedica Defiance Regional HospitalH 27.6 dIEiowsv36.0-34.0[facility] Medical CenterHC mass conc (RBC)33.9 g/dL Moznbx56.5-36.0[facility] Doctors HospitalMCV81.3 hEMwcbuv41.0-100.0[facility] Doctors HospitalPlatelet mean volume (PMV)9.4 fLNormal9.0-12.7CTogus VA Medical CenterPlatelets470 10*3/iUWbts630-270ObswpruscOhiohealth Doctors HospitalWBC (Leukocytes)11.76 10*3/uLHigh3.70-11.00[facility] Doctors HospitalCNOVon 46-07-1786ZDUELdqtkz Visit (OTOLMN) --------GLADIS MICHAEL ([id number]) 1975 [facility] Time Provider Qneaadtqwc80/2/17 10:00 AM MARCO ANTONIO HERNANDEZ During your visit today, we recorded the following information about you: Blood pressure Weight Height 142/85 97.5 kg 1.6 Akila Joshi Ma 04/10/2017 10:01 AM SignedTobacco Use: QuitWas smoking cessation packet given? N/A - Patient is a non-smoker or quit ANDgt;1year ago.Was a referral initiated?N/A Patient is a non-smokerCandis Hernandez MD 04/16/2017 1:04 PM SignedGladis [id number] 2016Oto-HNS ConsultationReferring Physician: Dr. Isaac Winston for [...] further evaluated viaultrasound if clinically indicated.LabsCBCRecent Labs 04/07/479675RHS 13.32*HB 13.4HCT 40.2PLT 470*BMPInvalid input(s): PHOSCOAGsPHYSICAL EXAM:Vitals - BP 142/85 (BPSite: Left Arm, BP Position: Sitting, BP Cuff Size:Extra Large Adult) Ht 160 cm (5' 3ANDquot;) Wt 97.5 kg (215 lb) SpO2 98% BMI 38.09 kg/b5Gevtkgxezuymsy - General Appearance: well developed, well nourished, [...] Dispense: 1 Each; Refill: 0SIGNATURE: Candis Hernandez,MDPAGER: [phone] of SERVICE: April 16, 2017TIME of SERVICE: [...] disease) [K21.9]Or xin(s):POLYSOMNOGRAM (PSG)/HOME SLEEP TEST (HST) [7230609] Order #: [id number] FUTURE omeprazole (PRILOSEC) 20 mg capsuleTake 1 capsule by mouth once daily for 30 days.Disp: 30 capsuleRfl: 0 CT NECK SOFT TISSUE W IVCON [9897638] Order #: [id number] FUTURE [] iv contrast (radiology procedure)Inject 1 [...] 04/10/2017 10:01 AM >> SOL JOSHI MA [facility] 2016 10:01 AM Not takingProblem List As Of Date 04/10/2017 Noted Resolved Lymphocytosis [D72.820] INVALID FOR* Cervical adenopathy [R59.0] INVALID FOR*Visit Notes:>> Sol Joshi Ma Meredith Apr 10, 2017 10:01 AM Status: SignedTobacco Use: [employer] smoking cessation packet given? N/A - Patient [...] guidelines link.Follow-up and Disposition History RecordedEncounter Number: [id number] Status:Closed by CANDSI HERNANDEZ MD on 04/16/17NoMount St. [facility] 32-25-2396RIDHTKSIIVB ID: [id number]: Candis Salinas: (none)Author Type: PhysicianType: Progress NotesFiled: 04/16/2017 1:04 PMNote Text:Gladis [id number] 22016Oto-HNS ConsultationReferring Physician: Dr. Isaac Winston for [...] further evaluated viaultrasound if clinically indicated.LabsCBCRecent Labs 04/07/526683IDX 13.32*HB 13.4HCT 40.2PLT 470*BMPInvalid input(s): PHOSCOAGsPHYSICAL EXAM:Vitals - BP 142/85 (BP Site: Left Arm, BP Position: Sitting, BP Cuff Size:Extra Large Adult) Ht 160 cm (5' 3 ) Wt 97.5 kg (215 lb) SpO2 98% BMI 38.09 kg/q2Roxudxyqbqroel - General Appearance: well developed, well nourished, [...] Dispense: 1Each; Refill: 0SIGNATURE: Candis David, MDPAGER: [id number] of SERVICE: April 16, 2017TIME of SERVICE: 1:01 PMNormalOhiohealth Doctors HospitalCNOVSPon 70-50-1425TCFNKVMrele (SP) Office (HEMASA) --------GLADIS MICHAEL ([id number]) 1975 FDate Time Provider Itpcdggkrc45/30/17 1:45 PM ISAAC SHELTON During your visit today, we recorded the following information about you: Temperature Pulse Respiration Blood pressure 98.5 degrees 75/minute 18/minute 156/106 Weight Height 102.2 kg 1.6 Kassidy Shelton DO 04/11/2017 10:43 AM SignedPATIENT NAME: Gladis ElderRN: [id number] PHYSICIAN: MICHAEL Rubin[address] [facility] [address]KUIARKZ CARE PHYSICIAN: MASOOD Rubin PHYSICIANS:CHIEF COMPLAINT: Lymphocytosis [...] on 04/07/17. Return in about 2 weeks (afxgrt7004/21/2017), or f/u 2 wks.. HPI: This is [...] for5 days straight. Went to ER 02/26. Moniteau was negative, strep negative. Flunegative. She was [...] I answered all questions satisfactorily..Hai Shelton D.O.Medical OncologistTompkinsville, [place]Referring Provider: ISAAC SHELTON [[id number]]Allergies As of Date: 04/07/2017 Noted Allergy ReactionTOPROL [...] FOR*Encounter Status:Closed by ISAAC SHELTON DO on 04/11/17NormalCMercy Health Defiance Hospital 73-95-0224UH064 U/L Mllzpc645-519PkxakttczOhiohealth Doctors HospitalComment on above:Performed By: #### LD6 ####[facility] [address] [place], [place] [phone] 35-60-9923OWHOROFNYYP ID: [id number]: Isaac Carrasco: (none)Author Type: PhysicianType: Progress NotesFiled: 04/11/2017 10:43 AMNote Text:PATIENT NAME: Gladis ElderRN: [id number] PHYSICIAN: Joseph Harris DO[address] [place] [address]ENDQBPS CARE PHYSICIAN: MASOOD Rubin PHYSICIANS:CHIEF COMPLAINT: Lymphocytosis [...] Fever for5 daysstraight. Went to ER 02/26. Moniteau was negative, strep negative.Flu negative. She was [...] I answered all questions satisfactorily..Hai Shelton D.O.Medical OncologistWest Seattle Community Hospital Cancer [facility]'s Medical CenterCO 90-50-4637YXBWRfutvm TextNortEinstein Medical Center-Philadelphia - Urzudfzz[address] [place], [place] [address]Pssxq: [phone]: [facility] - Ijfqg[address] [place], [place] [address]Vhyid: [phone]: [facility] - Woakhlu[address] [place], [place] [address]Nrztj: [phone]: Toll Free: [phone] [email or web address] [email or web address] Arredondo M.D., Carlos Gleason M.D.Luiz Berrios M.D.Isaac Shelton D.O..Audrey Jang M.D. FACROSaju A. Rajan, M.D.March 27, 2017Phill[facility] Institutejo Michael[address] [facility] [address]Tzfv Ms. Michael,You missed your scheduled appointment on 03/27/17. Please call our officeto reschedule. If you need to cancel any future appointments, please call togive us 24 hour notice so that we can offer your appointment to anotherpatient.Sincerely,Isaac Au M.D.NormalOhiohealth Doctors HospitalCT ABD/PEL W IVCONon 55-85-2200NP ABD/PEL W IVCON* * *Final Report* * *DATE OF EXAM: Mar 19 2017 9:29AM [facility] 0530 - CT ABD/PEL W IVCON [...] any questions regarding this interpretation, please call [phone].If you are unable to reach us at the number above,please feel free to contact [facility] eRadiology at [phone] NormalOhiohealth Doctors HospitalCT CHEST W IVCONon 23-98-3437XH CHEST W IVCON* * *Final Report* * *DATE OF EXAM: Mar 19 2017 9:29AM [facility] 0539 - CT CHEST W IVCON [...] any questions regarding this interpretation, please call [phone].If you areunable to reach us at the number above,please feel free to contact [facility] eRadiology at [phone] Doctors HospitalCT NECK SOFT TISSUE W IVCONon 60-31-4643NF NECK SOFT TISSUE W IVCON* * *Final Report* * *DATE OF EXAM: Mar 19 2017 9:28AM [facility] 0013 - CT NECK SOFT TISSUE [...] styloid parapharyngealspace: Fat and muscle planes are normal.Helicopter Pilot space: Visualized mandible, muscles of mastication, pterygopalatine [...] physiologic.Transcribe Date/Time: Mar 19 2017 9:39ADictated by: SATUNRINO RODRIGEZ MDThis examination was interpreted and the report reviewed and electronically signed by: ALYSSA DREW MD on Mar 19 2017 11:21AM ESTThank you for allowing us to participate in the care of your pa tient.Should there be any questions regarding this interpretation, please call [phone].If you are unable to reach us at the number above,please feel free to contact [facility] eRadiology at [phone] NormalCleKettering Health PreblevelandPROGRESSon 09-84-8296FWWZXMMJHLM ID: [id number]: Sheri Banegas CnmtService: (none)Author Type: (none)Type: Progress NotesFiled: 03/19/2017 9:32 AMNote Text: RADIOLOGY SERVICE PROGRESS NOTESERVICE DATE: 03/19/2017SERVICE TIME: 8:33 AMPATIENT IDENTITY VERIFICATION COMPLETED USING TWO (2) METHODS: Patientconfirmed name and Date of verbally.PATIENT GENDER DATA: .femaleALLERGIES: Reviewed and unchangedMEDICATIONS REVIEWED: Not applicablePATIENT RELEVANT IMPLANT DATA REVIEWED: Not ApplicableCREATININE:CreatinineDate Value Ref Range Fahnyy7303/14/2017 0.59 0.58 - 0.96 mg/dL Final04/11/2016 0.56 (L) 0.58 - 0.96 mg/dLFinal eGFR-All Other RacesDate Value Ref Range Exrufe0803/14/2017 >60 . FinalComment:eGFR(Estimated GFR) Units of measure: [...] actual GFR. eGFR- AmericanDate Value Ref Range Hvzcmb8903/14/2017 >60 Final Reference range (age 0-9 years) [...] TIME: 0907PATIENT DISCHARGED TO: Ambulatory patient, left [place] department area.A Diagnostic radioactive procedure has taken place, with no furtherprecautions necessary other than routine body substance precautions. Moreinformation regarding radiation safety can be found using this link:[email or web address] [email or web address]: Sheri Banegas [facility] PATIENT NAME: Gladis PatelarDATE: March 19, 2017 : 8:33 AM PAGER/CONTACT #:[facility] Metabolic Panelon 56-73-8502Fzsqugk aminotransferase (ALT)25 U/LNormal7-38 [facility] on above:Performed By: #### RETIC, HREMOP, CMP, TSH, KLFRS, MPASRM, SEPG ####[facility] AveCMatthew Ville [phone] g/dLNormal3.9-4.9CMercy Health St. [facility] on above:Performed By: #### RETIC, HREMOP, CMP, TSH, KLFRS, MPASRM, SEPG ####[place] [address] AveCMatthew [place]ille [phone] phosphatase (ALP)60 U/PHohpip46-103ZxjbyymbeFairfield Medical Center on above:Performed By: #### RETIC, HREMOP, CMP, TSH, KLFRS, MPASRM, SEPG ####[place] [place] [address]CMatthew [place] [phone] gap14 mmol/LNormal9-18[facility] on above:Performed By: #### RETIC, HREMOP, CMP, TSH, KLFRS, MPASRM, SEPG ####[place] [address]CM[address]thew Ville [phone] aminotransferase (AST)18 U/KAvpgze70-56PmjlawkffFairfield Medical Center on above:Performed By: #### RETIC, HREMOP, CMP, TSH, KLFRS, MPASRM, SEPG ####[place] [address] AveCMatthew [place]ille [phone] (total)0.7 mg/dLNormal0.2-1.3CMercy Health [facility] on above:Performed By: #### RETIC, HREMOP, CMP, TSH, KLFRS, MPASRM, SEPG ####[place] [address]CM[address]thew [place] [phone] mg/dLNormal8.5-10.2CMercy Health St[facility] on above:Performed By: #### RETIC, HREMOP, CMP, TSH, KLFRS, MPASRM, SEPG ####[place] [address] AveCMatthew [place] [phone] mmol/NYlmidr76-437WsupzedffFairfield Medical Center on above:Performed By: #### RETIC, HREMOP, CMP, TSH, KLFRS, MPASRM, SEPG ####[place] [address]CM[address] [place] [phone] mmol/PGnafoc67-24LzppavokxFairfield Medical Center on above:Performed By: #### RETIC, HREMOP, CMP, TSH, KLFRS, MPASRM, SEPG ####[place] [address] [address] AvElizabeth [place] [phone] mg/dLNormal0.58-0.96[facility] Comment on above:Performed By: #### RETIC, HREMOP, CMP, TSH, KLFRS, MPASRM, SEPG ####[place] [address]CM[address] [place] [phone] (non-black)mL/min/{1.73_m2}NormalFairfield Medical Center on above:Result Comment: eGFR (Estimated GFR) Units [...] RETIC, HREMOP, CMP, TSH, KLFRS, MPASRM, SEPG ####[place] [address] [place] [phone] mass dykl036 mg/uFWtej51-13WebtlyrgpOhiohealth Doctors Hospital Comment on above:Result Comment: The [place] Diabetes Association (ADA) provides guidance for cutoff [...] Standards of Medical Care in Diabetes 2016, [place] [employer]. Diabetes Care. 2016.39(Suppl 1).Performed By: #### RETIC, HREMOP, CMP, TSH, KLFRS, MPASRM, SEPG ####[place] [phone] molar conc4.3 mmol/LNormal 3.7-5.1CTogus VA Medical CenterComment on above:Performed By: #### RETIC, HREMOP, CMP, TSH, KLFRS, MPASRM, SEPG ####[place] [address] [place] [phone] g/dLHigh6.3-8.0[facility] Doctors HospitalComment on above:Performed By: #### RETIC, HREMOP, CMP, TSH, KLFRS, MPASRM, SEPG ####[place] [address] [place] [phone] mmol/TAxdyus456-039UrhrmzgbwOhiohealth Doctors Hospital Comment on above:Performed By: #### RETIC, HREMOP, CMP, TSH, KLFRS, MPASRM, SEPG ####[place] [address]ilAustin [place] [phone] fcqifdrg54 mg/dLNormal7-21[facility] Comment on above:Performed By: #### RETIC, HREMOP, CMP, TSH, KLFRS, MPASRM, SEPG ####[place] [address] AveCM[address]thew [place] [phone] Remote Panelon 52-14-4652VWG (Body Surface Area) NegativeNormalNegativeFairfield Medical Center on above:Performed By: #### RETIC, HREMOP, CMP, TSH, KLFRS, MPASRM, SEPG ####[place] [address]CM[address]thew [place] [phone] B Core Ab,Total NegativeNormalNegativeFairfield Medical Center on above:Performed By: #### RETIC, HREMOP, CMP, TSH, KLFRS, MPASRM, SEPG ####[place] [address] [address] AveCHuggins, [place] [phone] C Ab IA NegativeNormalNegTrinity Health System West Campus on above:Performed By: #### RETIC, HREMOP, CMP, TSH, KLFRS, MPASRM, SEPG ####[place] [address]CM[address]thew [place] [phone] Surface Ab,Qual NegativeNormalNegativeFairfield Medical Center on above:Result Comment: NEGATIVEPerformed By: #### RETIC, HREMOP, CMP, TSH, KLFRS, MPASRM, SEPG ####[place] [address]CM[address]thew [place] [phone]/Cope,Free,Seron 03-14-2017K/L Ratio, Serum1.99High 0.26-1.65[facility] on above:Performed By: #### RETIC, HREMOP, CMP, TSH, KLFRS, MPASRM, SEPG ####[place] [address] AveCMatthew [place] [phone], Free, Serum32.8 mg/LHigh 3.30-19.40[facility] on above:Result Comment: Rarely, increased serum free light chains values may not be detected due to antigen excess phenomenon. Results should always be correlated with other laboratory results and clinical findings.Performed By: #### RETIC, HREMOP, CMP, TSH, KLFRS, MPASRM, SEPG ####[place] [address] Soil AveCHuggins, [place] [phone], Free, Serum16.5 mg/LNormal5.7-26.3CMercy Health St[facility] on above:Result Comment: Rarely, increased serum free light chains values may not be detected due to antigenexcess phenomenon. Results should always be correlated with other laboratory results and clinical findings. Performed By: #### RETIC, HREMOP, CMP, TSH, KLFRS, MPASRM, SEPG ####[address]Elizabeth [place] [phone] Protein,Blon 88-17-7002WNH Parminder/Milner Ratio2.82Xkoeyp6-3BultsdweaTogus VA Medical Center Comment on above:Performed By: #### RETIC, HREMOP, CMP, TSH, KLFRS, MPASRM, SEPG ####[place] [address] Soil AveCHuggins, [place] [phone] ResultNo M protein is identified.NormalNo M protein is identified.[facility] on above:Performed By: #### RETIC, HREMOP, CMP, TSH, KLFRS, MPASRM, SEPG ####[place] [address] AveCMatthew [place] [phone] Serum BuE020 mg/tYJlkpsn76-448 [facility] on above:Performed By: #### RETIC, HREMOP, CMP, TSH, KLFRS, MPASRM, SEPG ####[facility] Soil AveCHuggins, [place] [phone] Serum AuY1844 mg/cWEohc607-4943OrfqvkvkqMercy Health St. [facility] on above:Performed By: #### RETIC, HREMOP, CMP, TSH, KLFRS, MPASRM, SEPG ####[facility] AveCHuggins, [place] [phone] Serum JgC416 mg/aCWpstpo59-660IayiiwqkrFairfield Medical Center on above:Performed By: #### RETIC, HREMOP, CMP, TSH, KLFRS, MPASRM, SEPG ####[facility] AveCMatthew [place]ille [phone] Mcdpc9296 mg/yXFprh399-6885FqggbekefOhiohealth Doctors Hospital Comment on above:Performed By: #### RETIC, HREMOP, CMP, TSH, KLFRS, MPASRM, SEPG ####[facility] AveCHuggins, [place] [phone] Twmsdt835 mg/yOIbcv851-521IqieltmtbTogus VA Medical Center Comment on above:Performed By: #### RETIC, HREMOP, CMP, TSH, KLFRS, MPASRM, SEPG ####[facility] AveCHuggins, [place] [phone] ReviewReviewed by Delores Means MD ([id number])[facility] on above:Performed By: #### RETIC, HREMOP, CMP, TSH, KLFRS, MPASRM, SEPG ####[facility] AveCHuggins, [place] [phone] LG LEUK MARKERSon 96-22-0088RV LG LEUK MARKERSAccount CreditedNormalCMercy Health St[facility] on above:Result Comment: CANCELLED PER STAFF REVIEW. [id number] available in [facility] under the Surgical Pathology Test listed in the Laboratory Tab.Performed By: #### LD6 ####[facility] AveCHuggins, [place] [phone] (Leukocytes)13.38 10*3/uLHigh3.70-11.00[facility] on above:Performed By: #### LD6 ####[address] [phone] Electrophor.on 17-40-5479Lbiyivs2.76 g/dLNormal3.37-4.23[facility] on above:Performed By: #### LD6 ####[address] [phone] 1 Globulin0.19 gm/dLNormal0.18-0.31[facility] on above:Performed By: #### LD6 ####[address] [phone] 2 Globulin0.90 gm/dLNormal0.52-0.97[facility] on above:Performed By: #### LD6 ####[address] [phone] Globulin1.15 gm/dLNormal0.84-1.36[facility] on above:Performed By: #### LD6 ####[address] [phone] Globulin1.80 gm/dLHigh0.70-1.44[facility] on above:Performed By: #### LD6 ####[address] [phone] COMMENTNoGrand Lake Joint [facility] Hospital Comment on above:Result Comment: An atypical region of restricted mobility is identified on protein electrophoresis.The atypical region did not stain on accompanying immunofixation and therefore is unlikely to be a monoclonal immunoglobulin.Performed By: #### LD6 ####[address] [phone] Protein LocationN/ANormalCMercy Health St. [facility] on above:Performed By: #### LD6 ####[place] [address] AvMunc[place], [place] [phone] Ja Concentratn 0.00 gm/dLNormal0.00[facility] on above:Performed By: #### LD6 ####[facility] [place], [place] [phone] Staff ReviewReviewed by Delores Means MD ([id number])Normal [facility] on above:Performed By: #### LD6 ####[place] [address] [place], [place] [phone] Protein, SPE7.8 g/dLNormal6.0-8.4CMercy Health St. [facility] on above: Performed By: #### LD6 ####[place] [address] [place], [place] [phone] CBCDIF (for [facility] use only)on 44-48-3920Xcq Baso0.14 k/uLHigh0.00-0.10[facility] HospitalAbs Mono0.66 k/uLNormal0.00-0.86[facility] HospitalAbs Neut10.25 k/uLHigh1.45-7.50 [facility] HospitalBasophils/100 WBC Auto (Bld)1.1 %NormalOhiohealth Doctors HospitalEosinophils0.08 10*3/uLNormal0.00-0.45[facility] Eosinophils/100 leukocytes0.6 %NormalOhiohealth Doctors HospitalErythrocyte distribution width Auto Ratio (RBC)14.0 %Vgfrjn96.5-15.0[facility] HospitalErythrocytes (RBC)5.12 10*6/uLNormal3.90-5.20[facility] Hematocrit (HCT)42.5 %Vbgkje66.0-46.0[facility] HospitalHemoglobin mass conc (Bld)14.1 g/cTGrcxgw74.5-15.5CTogus VA Medical CenterLymphocytes1.98 10*3/uLNormal1.00-4.00[facility] HospitalLymphocytes/100 lcgohupmdx01.1 % NormalOhiohealth Doctors HospitalMCH27.5 yGLufeol90.0-34.0[facility] Medical CenterHC mass conc (RBC)33.2 g/uGUqmnsr33.5-36.0[facility] MCV83.0 rOAtwcrp38.0-100.0[facility] HospitalMonocytes/100 leukocytes5.0 %NormalOhiohealth Doctors HospitalNeutrophils/100 WBC Auto (Bld)78.2 %Normal [facility] HospitalPlatelet mean volume (PMV)9.6 fLNormal9.0-12.7 [facility] HospitalPlatelets609 10*3/yVEhve622-361NfjfvwljjOhiohealth Doctors HospitalWBC (Leukocytes)13.11 10*3/uLHigh3.70-11.00[facility] Reticulocyteon 87-50-6615Rda Retic0.073 M/uLNormal0.0180-0.1000[facility] on above:Performed By: #### RETIC, HREMOP, CMP, TSH, KLFRS, MPASRM, SEPG ####[facility] [address] [place], [place] [phone]%1.4 %Normal0.4-2.0[facility] on above:Performed By: #### RETIC, HREMOP, CMP, TSH, KLFRS, MPASRM, SEPG ####[facility] [place], [place] [phone] 41-05-9607Zvyjlvm stimulating hormone (TSH)0.537 uU/mL Normal0.400-5.500[facility] on above:Result Comment: If the patient is , TSH reference range varies by gestational period:First Trimester 0.100-2.500 uU/mLSecond Trimester 0.200-3.000 uU/mLThird Trimester 0.300-3.000 uU/mLReferences: 1. He, Delfina Bassett, Anders EK, et al. Management of Thyroid Dysfunction during and : An Endocrine Society Clinical Practice Guideline. J Clin Endocrinol Metab, 2012:97:7485-9489. 2. Conor ROSAS. Overview of thyroid disease in . UpToDate. 2016. Accessed on November 24, 2015.Performed By: #### RETIC, HREMOP, CMP, TSH, KLFRS, MPASRM, SEPG ####[facility] [address] [place], [place] [phone] 21-45-2476VJIDHQEywor (SP) Office ([place]AS[place]) --------GLADIS MICHAEL ([id number]) 1975 [place] Time Provider Fukyyuvoek48/5/17 10:00 AM ISAAC SHELTON During your visit today, we recorded the following information about you: Temperature Pulse Respiration Blood pressure 99 degrees 96/minute 18/minute 143/93 Weight Height 103.5kg 1.6 Kassidy Shelton DO 03/14/2017 2:41 PM SignedPATIENT NAME: Gladis ElderRN: [id number] PHYSICIAN: Joseph Harris DO[address] [facility] [address]SCMYPRH CARE PHYSICIAN: MASOOD Rubin PHYSICIANS:CHIEF COMPLAINT: Lymphocytosis [...] COUNT-PROTEIN ELECTROPHORESIS W/INTERP-CBC + DIFF (FOR REMOTE [facility] USE)-KAPPA/COPE,FREE,SER-MONOCLONAL PROT BLD W/INTERP-HEP REMOTE PANEL BL-iv [...] three weeks now.Had few ER visits at [place] last year for LUQ pain and hadCT [...] for5 days straight. Went to ER 02/26. Moniteau was negative, strep negative. Flunegative. She was [...] I answered all questions satisfactorily..Hai Shelton D.O.Medical OncologistTompkinsville, [place]Referring Provider: ISAAC SHELTON [[id number]]Allergies As of Date: 03/13/2017 Noted Allergy ReactionTOPROL XL (METOPROLOL) 04/11/2016 14 - Other: See Comments Comments: heart races per patientDate Reviewed: 03/13/2017Reviewed by: Merna Gudino - Fully AssessedReason for Visit: Lymphocytosis [Other] Cmt: follow upPrimary Visit Diagnosis:Lymphocytosis [D72.820]Order(s):CT ABD/PEL W IVCON [[id number]] Order #: [id number] FUTURE CT CHEST W IVCON [[id number]] Order #: [id number] FUTURE iv contrast (radiology procedure)CT Chest ABD/PEL-Inject, [...] [address] CT NECK SOFT TISSUE W IVCON [[id number]] Order #: [id number] FUTURE [] iv contrast (radiology procedure)Inject 1 [...] GRADE LEUK MARKERS FC [SQPBLGLY] Order #: [id number] STAFF REVIEW WITH CBC AND DIFF [SQSTREV] Order #: [id number]. #:[id number] COMP METABOLIC PANEL [SQCMP] Order #: [id number] FUTURE TSH BLD [SQTSH] Order #: [id number] FUTURE RETIC COUNT [SQRETIC] Order #: [id number] FUTURE PROTEIN ELECTROPHORESIS W/INTERP [SQSEPG] Order #: [id number] FUTURE CBC + DIFF (FOR REMOTE [facility] USE) [SQRCBCDF] Order #: [id number] FUTURE KAPPA/COPE,FREE,SER [SQKLFRS] Order #: [id number] FUTURE MONOCLONAL PROT BLD W/INTERP [SQMPASRM] Order #: [id number] FUTURE HEP REMOTE PANEL BL [SQHREMOP] Order #: [id number] FUTUREPrescriptions as of 03/13/2017 Sig: PINDOLOL 5 [...] FOR*Encounter Status:Closed by ISAAC SHELTON DO on 03/14/17NormalCMercy Health Defiance Hospital 63-85-8989BX447 U/L Sqkxmc017-149PaoypcsaiOhiohealth Doctors HospitalComment on above:Performed By: #### LD6 ####[facility] [address]hdti[address] [place], [place] [phone] 92-47-1541IBWLYPTQLAP ID: [id number]: Isaac SheltonService: (none)Author Type: PhysicianType: Progress NotesFiled: 03/14/2017 2:41 PMNote Text:PATIENT NAME: Gladis PatelarMRN: [id number] PHYSICIAN: Joseph Harris DO[address] [facility] [address]XOXTASW CARE PHYSICIAN: MASOOD Rubin PHYSICIANS:CHIEF COMPLAINT: Lymphocytosis [...] COUNT-PROTEIN ELECTROPHORESIS W/INTERP-CBC + DIFF (FOR REMOTE [facility] USE)-KAPPA/COPE,FREE,SER-MO NOCLONAL PROT BLD W/INTERP-HEP REMOTE PANEL [...] aboutthree weeks now.Had few ER visits at [place] last year for LUQ pain and had [...] for5 days straight. Went to ER 02/26. Moniteau was negative, strep negative.Flu negative. Shewas placed [...] recommendations and plan. I answered all questions satisfactorily..Hia Shelton D.O.Medical OncologistTompkinsville, OhioNormalCTogus VA Medical CenterRemote Abs Gran + CBC (for [facility] use only)on 12-03-1379Anbfp Gran Count10.95 k/uLHigh1.45-7.50 [facility] HospitalErythrocyte distribution width Auto Ratio (RBC)14.0 % Joxkur10.5-15.0[facility] Doctors HospitalErythrocytes (RBC)5.04 10*6/uLNormal 3.90-5.20[facility] Doctors HospitalHematocrit (HCT)41.8 %Dsoqdu37.0-46.0 [facility] HospitalHemoglobin mass conc (Bld)14.0 g/aMQlogmo26.5-15.5 [facility] HospitalMCH27.8 tUQmncnb23.0-34.0[facility] MCHC mass conc (RBC)33.5 g/kSRhnxzo19.5-36.0[facility] HospitalMCV82.9 fL Pwwkai24.0-100.0[facility] HospitalPlatelet mean volume (PMV)9.3 fLNormal 9.0-12.7CTogus VA Medical CenterPlatelets592 10*3/gGGxwt736-486SbtngdwnbOhiohealth Doctors HospitalWBC (Leukocytes)14.22 10*3/uLHigh3.70-11.00[facility] Rev w CBCDIFon 38-93-7353Ayz Baso0.20 k/uLHigh<0.11CMercy Health St[facility] on above:Performed By: #### STREV ####[place] [address] [address]ilB[place], [place] [phone] Mono0.76 k/uL Normal<0.87[facility] on above:Performed By: #### STREV ####[place] [address] [address]il[place], [place] [phone] Neut11.19 k/uLHigh1.45-7.50[facility] on above: Performed By: #### STREV ####[address] [phone]/100 WBC Auto (Bld)1.4 %Normal [facility] on above:Performed By: #### STREV ####[address] [phone] [phone] CommentsSEE COMMENTNormalCMercy Health St. [facility] on above: Result Comment: See Staff ReviewPerformed By: #### STREV ####[place] [address] [place], [place] [phone] 10*3/uLNormal<0.46[facility] on above:Performed By: #### STREV ####[place] [address]CH[address], [place] [phone]/100 leukocytes0.6 %NormalOhiohealth Doctors Hospital Comment on above:Performed By: #### STREV ####[place] [address]CH[address], [place] [phone] distribution width Auto Ratio (RBC)13.6 %Crpfdv50.5-15.0[facility] Doctors Hospitalment on above: Performed By: #### STREV ####[place] [address]CH[address], [place] [phone] (RBC)5.19 10*6/uLNormal 3.90-5.20[facility] on above:Performed By: #### STREV ####[place] [address]CMatthew [place] [phone] [phone] (HCT)45.0 %Mlhsjz94.0-46.0[facility] Doctors Hospitalment on above:Performed By: #### STREV ####[place] [address] Av[place], [place] [phone] mass conc (Bld)14.1 g/dLNormal 11.5-15.5CMercy Health St. [facility] on above:Performed By: #### STREV ####[place] [address]CM[address]the[address] [place] [phone] 10*3/uLNormal1.00-4.00[facility] on above:Performed By: #### STREV ####[place] [address]CH[address], [place] [phone]/100 afxoigeigi12.5 %Normal [facility] on above:Performed By: #### STREV ####[place] [address]CMatthew [place] [phone] 4-80682612EVA94.2 dNAyrror77.0-34.0[facility] on above: Performed By: #### STREV ####[address] AvElizabeth [place] [phone] mass conc (RBC)31.3 g/eNRgrbna31.5-36.0 [facility] Hospitalment on above:Performed By: #### STREV ####[address] AvElizabeth [place] [phone] 4-43791326JTB66.7 mUQqeqvw90.0-100.0[facility] on above: Performed By: #### STREV ####[place] [phone]/100 leukocytes5.2 %[facility] on above:Performed By: #### STREV ####[place] [phone]/100 WBC Auto (Bld)76.3 %[facility] on above:Performed By: #### STREV ####[place] [phone] (cervix/vaginal)Reviewed by Karon Levin DO ([id number])[facility] on above:Performed By: #### STREV ####[address] AvElizabeth [place] [phone] [phone] mean volume (PMV)10.0 fLNormal9.0-12.7CTogus VA Medical Center Comment on above:Performed By: #### STREV ####[place] [phone] 10*3/lLWonn676-986 [facility] on above:Performed By: #### STREV ####[facility] [address] [place], [place] [phone] Cell MorphSEE COMMENTNoOhioHealth Doctors Hospital on above: Result Comment: UnremarkablePerformed By: #### STREV ####[facility] [place], [place] [phone] ReviewSEE COMMENTNoOhioHealth Doctors Hospital on above:Result Comment: Neutrophilic Leukocytosis Without Left ShiftThrombocytosisPerformed By: #### STREV ####[place] [address] [place], [place] [phone] (Leukocytes)14.66 10*3/uLHigh3.70-11.00[facility] on above:Performed By: #### STREV ####[place] [address] [place], [place] [phone] 02-06-2017 CNOVSPVisit (SP) Office (HEMASA) --------GLADIS MICHAEL ([id number]) 1975 [facility] Time Provider Department02/06/17 11:15 AM ISAAC SHELTON During your visit today, we recorded the following information about you: Temperature Pulse Respiration Blood pressure 98.6 degrees 66/minute 16/minute 161/102 Weight Height 108.6 kg 1.6 Kassidy Shelton DO 02/07/2017 12:59 AM SignedPATIENT NAME: Gladis ElderRN: [id number] PHYSICIAN: Joseph Harris DO[address] [facility] [address]NPLSAZT CARE PHYSICIAN: Joseph Harris DOOTHER PHYSICIANS:CHIEF COMPLAINT: [...] about three weeks now.Had fewER visits at [place] last year for LUQ pain and had [...] I answered all questions satisfactorily..Hai Shelton D.O.Medical OncologistNoAtlanta, [place]Referring Provider: ISAAC SHELTON [[id number]]Allergies As of Date: 02/06/2017 Noted Allergy ReactionTOPROL XL(METOPROLOL) 04/11/2016 14 - Other: See Comments Comments: heart races per patientDate Reviewed: 0 02/06/2017Reviewed by: Richard Leon) Luba - Fully AssessedReason for Visit: Lymphocytosis [Other] Cmt: 9 month follow upReason For Visit History RecordedPrimary Visit Diagnosis:Lymphocytosis [D72.820]Order(s):JAK2 V617F MUTATION [SQJAK2] Order #: [id number] FUTUREDisposition: Return in about 6 month s [...] FOR*Encounter Status:Closed by ISAAC SHELTON DO on 02/07/17NoGrand Lake Joint Township District Memorial HospitalJAK2 V617F Mutationon 67-94-0031GYJ3 V617F InterpResult: JAK2 V617F Mutation Not DetectedSt. John of God HospitalComment on above:Result Comment: Interpretation: The JAK2 V617F Mutation was not detected. The V617F point mutation has been reported in a high percentage of cases of polycythemia vera, approximately half of the cases of essential thrombocythemia and chronic idiopathic myelofibrosis, and in a smaller proportion of other myeloid disorders.(NOTE)Methodology:Following DNA extraction and library construction utilizing theMegaHoot Cancer Hotspot Panel v.1 ([employer], [place]), DNA sequencing of gene mutation hotspot regions was performed onthe MiSeq instrument ([employer], [place], [place]). Win the Planet software([employer], [place], [place]) was used to analyze FASTQ files [...] was developed and its performance characteristicsdetermined by [facility]'s [facility] [place] ([facility]). It has not been cleared orapproved by the FDA. -[facility] is regulated under CLIA as qualified toperform high-complexity testing. This test is used forclinicalpurposes. It should not be regarded as investigational or forresearch.References:Gracy DA, Socrates Squires, Rene R, Roberto Carlos J, Borjose MJ, Kesha Mccullough MM,et al. The 2016 revision to the World Health Organization (WHO)classification of myeloid neoplasms and acute leukemia. Sxeum4728;127: 2391-405.Magdalene Squires, Jonah R, Adrian JW. Myeloproliferative neoplasms:contemporary diagnosis using histologyand genetics. Funmi Rev ClinOncol 2009;6:627-37.Performed By: #### LD6, JAK2 ####[id number] [place], [place] [id number] Spec TypePeripheral BloodNormalCMercy Health St. [facility] on above: Performed By: #### EVANGELISTA6, JAK2 ####[id number] [place], [place] [phone] Path RevReviewed by David Vo M.D., Ph.D ([id number])NormalFairfield Medical Center on above:Performed By: #### EVANGELISTA6, JAK2 ####[address] [place] [id number] U/[id number] Doctors HospitalComment on above:Performed By: #### LD6, JAK2 ####[facility] [address] [place], [place] [phone] [id number] ID: [id number]: Isaac Carrasco: (none)Author Type: PhysicianType: Progress NotesFiled: 02/07/2017 12:59 AMNote Text:PATIENT NAME: Gladis PatelarMRN: [id number] PHYSICIAN: [place] [id number] CARE PHYSICIAN: MASOOD Rubin PHYSICIANS:CHIEF COMPLAINT: Lymphocytosis [...] three weeks now.Had few ER visits at [place] lastyear for LUQ pain and had CT [...] answered all questions satisfactorily..Hai Shelton D.O.Medical OncologistN [place], [place]NormalCTogus VA Medical CenterRemote Abs Gran + CBC (for [facility] use only)on 90-77-7094Jkypz Gran Count10.53 k/uLHigh 1.45-7.50[facility] Doctors HospitalErythrocyte distribution width Auto Ratio (RBC)13.8 %Dioxar76.5-15.0[facility] Doctors HospitalErythrocytes (RBC)4.88 10*6/uLNormal3.90-5.20[facility] HospitalHematocrit (HCT)40.8 %Normal 36.0-46.0[facility] HospitalHemoglobin mass conc (Bld)13.6 g/dLNormal 11.5-15.5CTogus VA Medical CenterMCH27.9 rXKqnygw38.0-34.0[facility] CenterHC mass conc (RBC)33.3 g/uRZwfvqr89.5-36.0[facility] MCV83.6 eJOxiyjl13.0-100.0[facility] Doctors HospitalPlatelet mean volume (PMV) 9.6 fLNormal9.0-12.7CTogus VA Medical CenterPlatelets448 10*3/nXWcdd237-591 [facility] HospitalWBC (Leukocytes)14.69 10*3/uLHigh3.70-11.00[facility] Doctors HospitalLDon 71-53-2858JQ091 U/KEqetkk600-653IgarqagvaOhiohealth Doctors Hospital Comment on above:Performed By: #### LD6 ####[facility] Qeynvycvbeee[address] [place], [place] [phone] Abs Gran + CBC (for [facility] use only)on 56-89-3053Hqdss Gran Count8.16 k/uLHigh1.45-7.50[facility] Doctors HospitalErythrocyte distribution width Auto Ratio (RBC)13.7 %Gjsqto96.5-15.0 [facility] HospitalErythrocytes (RBC)5.16 10*6/uLNormal3.90-5.20[facility] HospitalHematocrit (HCT)43.4 %Efcduu87.0-46.0[facility] Hemoglobin mass conc (Bld)14.3 g/eZPsyzmo19.5-15.5CProMedica Defiance Regional HospitalH 27.7 tHImvyyg10.0-34.0[facility] Medical CenterHC mass conc (RBC)32.9 g/dL Qojocu93.5-36.0[facility] Medical CenterV84.1 eGXrfnab22.0-100.0[facility] HospitalPlatelet mean volume (PMV)9.6 fLNormal9.0-12.7CTogus VA Medical CenterPlatelets481 10*3/lHBrse102-261HquwwxnhcOhiohealth Doctors HospitalWBC (Leukocytes)12.17 10*3/uLHigh3.70-11.00[facility] Doctors HospitalCNCOon 44-63-9548WAIRJzqoow TextNortStephens Memorial Hospital[address] [place] [address]Axmgs: [phone]: [facility] [place], [place] [address]Vqdre: [phone]: [address] [address]Uztkj: [phone]: Toll Free: [phone] [email or web address] Saad Arredondo M.D., Carlos Gleason M.D.Luiz Berrios M.D.Isaac Shelton D.O..Denisha Ruiz M.D.Heather Hollingsworth M.D. Julito Salguero M.D..November 28, 2016Gl[place]is [place] [address]Idul Ms. Michael,Youmissed your scheduled appointment on 11/28/2016. Please call our officeto reschedule. If you need to cancel any future appointments, please call togive us 24 hour notice so that we can offer your appointment to anotherpatient.Sincerely,Isaac Au M.D. NormalOhiohealth Doctors Hospital Vital Signs Date TimeVital SignValuePerforming ZcjxqmzxyHhhsossu47-36-5479 12:57-0400Body .02 cmPamela Mariann BUSINESS BANKING REPRESENTATIVE-C Work Phone: [facility]10-01-2025 12:57-0400 Body mass index (BMI) [Ratio]40.6 kg/p6Tivmkf Mariann BUSINESS BANKING REPRESENTATIVE-C Work Phone: [facility]10-01-2025 12:57-0400 Body qcbvbu655.04 kgPamela Mariann BUSINESS BANKING REPRESENTATIVE-C Work Phone: [facility]04-25-2025 22:00-0400 Heart rate61 /minKaylinn Dokken [facility]04-25-2025 22:00-1048SqG2% (BldA) [Mass fraction]98 %Kaylinn Dokken [facility]04-25-2025 21:30-0400Heart rate66 /minKaylinn Dokken [facility]04-25-2025 21:30-0400 Respiratory rate22 /minKaylinn Dokken [facility]04-25-2025 21:30-8162TuD4% (BldA) [Mass fraction]97 %Kaylinn Dokken [address] [place], [place] 9501204-25-2025 21:27-0400Heart rate60 /minKaylinn Dokken [address] [place], [place] 9501204-25-2025 21:27-5422TeH7% (BldA) [Mass fraction]96 %Kaylinn Dokken [address] [place], [place] 9501204-25-2025 20:42-0400 Respiratory rate22 /minKaylinn Dokken [address] [place], [place] 9501204-25-2025 20:42-0400 Diastolic blood cmctuhtc12 mm[Hg]Kaylinn Dokken [address] [place], [place] 9501204-25-2025 20:42-0400 Systolic blood khjihnyr048 mm[Hg]Kaylinn Dokken [address] [place], [place] 9501204-25-2025 20:42-0400Mean blood tauqwmwb496 mm[Hg]Kaylinn Dokken [address] [place], [place] 9501204-25-2025 19:58-0400Body uxvbyrkmuhj52.24 [degF]Kaylinn Dokken [address] [place], [place] 9501204-25-2025 19:58-0400 Diastolic blood mm[Hg]Kaylinn Dokken [address] [place], [place] 9501204-25-2025 19:58-0400Heart rate79 /minKaylinn Dokken [address] [place], [place] 9501204-25-2025 19:58-0400 Respiratory rate18 /minKaylinn Dokken [address] [place], [place] 9501204-25-2025 19:58-0400 Systolic blood cxiozxpy545 mm[Hg]Jeffy Das [facility]04-06-2025 13:28-0400Body .02 cmDay[facility]04-06-2025 13:28-0400Body mass index (BMI) [Ratio]43.2 kg/e6XqlvgiubgDayton Va Medical Center04-06-2025 13:28-0400Body .6 [degF][facility]04-06-2025 13:28-0400Body hythwe078.78 kgDayton Va Medical Center04-06-2025 13:28-0400Diastolic blood nxrykgtf99 mm[Hg][facility] 09-12-2024 13:28-0400Heart rate80 /[facility] 09-12-2024 13:28-0400Respiratory rate16 /[facility] 09-12-2024 13:28-6754DwL9% (BldA) [Mass fraction]98 %[facility]04-06-2025 13:28-0400Systolic blood mm[Hg][facility]04-14-2024 10:14-0400Body ifgzjf268.02 cmDay[facility] Va Medical Center04-14-2024 10:14-0400Body mass index (BMI) [Ratio]43.4 kg/m2 [facility]04-14-2024 10:14-0400Body dujqbxkyqqy52.4 [degF][facility]04-14-2024 10:14-0400Body .13 kg [facility]04-14-2024 10:14-0400Diastolic blood ahghzgxk25 mm[Hg][facility]04-14-2024 10:14-0400Heart rate72 /min [facility]04-14-2024 10:14-0400Respiratory rate18 /min [facility]04-14-2024 10:14-0429QfX3% (BldA) [Mass fraction]98 %[facility]04-14-2024 10:14-0400Systolic blood wjkqmcru696 mm[Hg][facility]05-14-2022 21:00-0400 Body byvvywwwcno61.6 [degF]Mulugeta Daileyell [address] [place], [place] 7147305-14-2022 21:00-0400 Diastolic blood wbmqkcoe08 mm[Hg]Mulugeta Daileyell [address]05-14-2022 21:00-0400Heart rate76 /minKevin Tulio [address] [place], [place] 7147305-14-2022 21:00-0400Mean blood fuiurrjm499 mm[Hg]Mulugeta Daileyell [address]05-14-2022 21:00-0400 Respiratory rate18 /minKevin Tulio [address]05-14-2022 21:00-5495AhJ4% (BldA) [Mass fraction]97 %Mulugeta Antunez [address] [place], [place] 7147305-14-2022 21:00-0400 Systolic blood mm[Hg]Mulugeta Daileyell [address] [place], [place] 7147305-14-2022 20:00-0400Body urbpmkfcoap78.7 [degF]Mulugeta aDileyell [address] [place], [place] 7147305-14-2022 20:00-0400 Diastolic blood mm[Hg]Mulugeta Daileyell [address] [place], [place] 7147305-14-2022 20:00-0400Heart rate72 /minKevin Tulio [address] [place], [place] 7147305-14-2022 20:00-0400Mean blood qvozvbbq152 mm[Hg]Mulugeta Daileyell [address] [place], [place] 7147305-14-2022 19:00-0400 Diastolic blood bnmdmigw040 mm[Hg]Mulugeta Tulio [address]05-14-2022 19:00-0400Heart rate70 /minKevin Tulio [address] [place], [place] 9501205-14-2022 19:00-0400Mean blood mm[Hg]Mulugeta Daileyell [address] [place], [place] 9501205-14-2022 19:00-0400 Respiratory rate17 /minKevin Tulio [address] [place], [place] 9501205-14-2022 19:00-0400 Systolic blood nmdofbrj736 mm[Hg]Mulugeta Daileyell [address] [place], [place] 9501205-12-2022 12:00-0400Heart rate63 /minKaylinn Dokken [address] [place], [place] 9501205-12-2022 12:00-0400Mean blood ayjwwvvn366 mm[Hg]Kaylinn Dokken [address] [place], [place] 9501205-12-2022 12:00-0400 Systolic blood ftpdenem576 mm[Hg]Kaylinn Dokken [address] [place], [place] 9501205-12-2022 11:30-0400 Diastolic blood eevewgxp936 mm[Hg]Kaylinn Dokken [address] [place], [place] 9501205-12-2022 11:30-0400Heart rate69 /minKaylinn Dokken [address] [place], [place] 9501205-12-2022 11:30-0400Mean blood gmsaifsr105 mm[Hg]Kaylinn Dokken [address] [place], [place] 9501205-12-2022 11:30-0400 Respiratory rate16 /minKaylinn Dokken [address] [place], [place] 9501205-12-2022 11:30-4939WeD3% (BldA) [Mass fraction]99 %Kaylinn Dokken [address] [place], [place] 9501205-12-2022 11:30-0400 Systolic blood mm[Hg]Kaylinn Dokken [address] [place], [place] 9501205-12-2022 11:00-0400Heart rate68 /minKaylinn Dokken [address] [place], [place] 9501205-12-2022 11:00-0400Mean blood bwfqzqry400 mm[Hg]Kaylinn Dokken [address] [place], [place] 9501205-12-2022 11:00-3493WeG1% (BldA) [Mass fraction]100 %Kaylinn Dokken [address] [place], [place] 9501205-12-2022 11:00-0400 Systolic blood lukasrmy146 mm[Hg]Kaylinn Dokken [address] [place], [place] 9501205-12-2022 09:30-0400 Hourly RoundingKaylinn Dokken [address] [place], [place] 9501205-12-2022 09:30-0400 Promise to ReturnKaylinn Dokken [address] [place], [place] 9501205-12-2022 08:30-0400 Hourly RoundingKaylinn Dokken [address] [place], [place] 9501205-12-2022 08:30-0400 Promise to ReturnKaylinn Dokken [address] [place], [place] 9501205-12-2022 03:59-0400Body .06 [degF]Kaylinn Dokken [address] [place], [place] 9501205-12-2022 03:59-0400Heart rate77 /minKaylinn Dokken [facility] Encounters Encounter DateEncounter TypeCare ProviderFacilshelby memorial hospitalStart: 04-11-2025 End: 29-97-3042fnsddptucoWagnsa Sue Cramer BUSINESS BANKING REPRESENTATIVE-C Work Phone: -[facility]vueStart: 04-11-2025 End: 99-97-3161Ojdkezl encounter procedureJuedmond Vora [facility] Work Phone: Start: 03-09-2025 End: 81-94-6050reoszkhaowVgsrgo Sue Cramer BUSINESS BANKING REPRESENTATIVE-C Work Phone: [facility] Work Phone: Start: 03-09-2025 End: 25-38-6417Ispbehe encounter procedureJuedmond Vora DOUnc [facility] Work Phone: Start: 03-09-2025 End: 97-17-6071Tsxsaiz encounter procedureJuedmond Vora DOSt[facility] Start: 03-09-2025 End: 57-21-0230wyzdwxqklcGluwmc Sue Cramer BUSINESS BANKING REPRESENTATIVE-C Work Phone: [facility] Work Phone: Start: 12-14-2024 End: 75-15-9489xhjchhhyqtSYVIGlenbeigh Hospitaltart: 10-06-2024 End: 67-80-8246chhhopbgoiAQPVCleveland Clinic South Pointe Hospitaltart: 10-01-2024 End: 69-70-1015Rrpmgbajq department patient visitJeffy Das [facility] Start: 09-12-2024 End: 67-97-1650strxorwhwbAyvcdgckxAshtabula County Medical Center Work Phone: Start: 09-12-2024 End: 95-19-7127Mcxdcmf encounter procedureE[facility] Work Phone: Start: 04-08-2024 End: 77-68-6563bpsomcypqlTAPCXVC [facility] Start: 09-21-2023 End: 74-95-7082fqtzjufcmzJypqswwcjAshtabula County Medical Center Work Phone: Start: 09-21-2023 End: 90-19-5096Pgjdwxt encounter procedureEcu Health [facility] Work Phone: Start: 06-11-2023 End: 41-57-9050cfdzevksgzWtatpq Braun Other [employer] Other Start: 07-43-1983Wiljfyknf encounterZoraidaverónicatavia Hernandez [facility] Fort Worthtart: 06-10-2023 End: 78-66-5042wyjxokfbplIkqfoh Braun Other [employer] Other Start: 18-59-8567Rbzhqj outpatient visit 15 minutes [facility]onHolzer Health Systemtart: 09-22-2022 End: 53-90-1288akdavrziziGKIFFC YOUNGFacility:L0Ursdp: 93-37-5270agzjaojayq KAILYN WAITEFacility:Z6Zfvzj: 08-13-2022 End: 06-55-5204hnhnqbgvfbCO TERRI DELANEYFacility:G5Wsxdg: 08-07-2022 End: 79-36-4840jizivkrsijZGP RAMEY .Facility:Z7Vekhf: 80-28-2279crotowvtqyKLQXCT CRAMERFacility:P2Ldzrw: 03-06-2022 End: 13-42-5319pefuuqoszmMK SHADE Solitario WESTFacility:U5Ppbcn: 01-21-2022 End: 75-33-5867xoqoytjxcfLRMYHT CRAMERFacility:G7Mvlgf: 01-17-2022 End: 60-43-2938lotqeuzarrAGOZJX CRAMERFacility:U3Sigjj: 01-10-2022 End: 87-07-2567vivwnkzhhzIB TERRI Lynn RHETTFacility:M3Xwezd: 48-76-1522Sgyejrmtr for preprocedural cardiovascular examinationDR GUSTAVO SHERMAN .[facility]: 10-26-2021 End: 53-29-6649wjgaubaeexVZ GUSTAVO SHERMAN .Facility:V4Iqfew: 10-24-2021 End: 75-63-6982ooevaxndxmDM GUSTAVO SHERMAN .Facility:A0Xpkqx: 10-24-2021 End: 79-38-1752Zzvukuseo for preprocedural cardiovascular examinationDR GUSTAVO SHERMAN .Facility:J3Xvygn: 10-20-2021 End: 72-95-8643Sfddvpjwm department patient visitMulugeta Antunez [facility] Start: 10-18-2021 End: 42-22-9853Wkyhltxdx department patient visitJeffy Das [facility] Start: 09-27-2021 End: 23-56-3729fmbfqudfbiKSEQSL CRAMERFacility:P4Pyirr: 81-89-1425Ykjhrfmqexmra examination normalMarcia Jose Other noWESYNC SpA [employer] Other Start: 86-78-0225Pbkzy health examinationMarcia Jose Other noWESYNC SpA [employer] Other Start: 07-01-2018 End: 12-75-1861Uhwgeug encounter procedureDEFAULT PHYSICIANFacility:UTMCStart: 06-30-2018 End: 07-93-4205Gxoqupj encounter procedureDEFAULT PHYSICIANFacility:UTMCStart: 10-20-2017 End: 55-46-1924RddqpnzwbnKQPJTOX J ADAMOWICZOhiohealth Doctors HospitalStart: 10-09-2017 End: 35-06-9848WzeoufuuogECOLUEHNoé SHELTONOhiohealth Doctors HospitalStart: 10-06-2017 End: 08-52-4727GfdjwecydqHQGYTKN ADAMOWICZMercy Health Urbana Hospital: 09-25-2017 End: 50-26-6707MugprczakyBFEXIRA ALLAN [facility]: 06-05-2017 End: 14-75-6986HdqjozcgijXMJKBOT J ADAMOWICZMercy Health Urbana Hospital: 05-22-2017 End: 08-88-0831NcwlbztqyzLZXQCAZ ALLAN [facility]: 04-28-2017 End: 80-28-5316UrcujspqpdVLVJSXK J ADAMOWICZMercy Health Urbana Hospital: 04-10-2017 End: 67-38-4673JdzcjrpqbeCBWRZ KUMercy Health Urbana Hospital: 04-07-2017 End: 33-41-8647JklqdfcfjzUMTDKBY LINAMercy Health [facility] Hospital: 03-19-2017 End: 61-81-6007LlzsmttmamXUNIBBQ Rodrigue GONZALEZMERCEDESMercy Health Urbana Hospital: 03-14-2017 End: 52-07-6526CrsobdkabjRULNWJP Rodrigue SHELTONMercy Health Urbana Hospital: 03-13-2017 End: 54-81-9372AsrdrhqjjbMJXDRTU Rodrigue SHELTONMercy Health Urbana Hospital: 02-06-2017 End: 51-85-9599LouyrubwvtXAZCONN Rodrigue SHELTONMercy Health Urbana Hospital: 01-23-2017 End: 77-53-3986OervcncrewXZLYJBQ Rodrigue ROCKOhioHealth Mansfield [facility] Procedures DateProcedureProcedure DetailPerforming ClinicianStart: 04-08-5295Elvao X-ray of right wristPamela Mariann 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 purified surface antigen)[place]elle [place] Other noWESYNC Sp[employer] Other 10133079-26-9390ysxzkscug virus vaccine, unspecified formulationDayton Va Medical Center10-08-2018influenza virus vaccine, split virus (incl. purified surface antigen)Belle Jose Other [employer] Other [id number] virus vaccine, unspecified formulationDayton Va Medical Center Payers DatePayer CategoryPayerPolicy [id number]-bsr [id number] [id number]-kx02-2s96-ry0j-nx5b8[id number] 2..1.134131.3.57[id number] 2..1.517524.3.579.2.80288-53-5971Veyojks2483942 2..1.701737.3.579.2.44032-07-2253Owccgei8995459 2..1.642385.3.579.[id number] 2..1.313878.3.579.2.26513-42-1240Mrmigfb2687507 2..1.507896.3.579.2.61293-56-1836Zdugcmn9525260 2..1.652845.3.579.2.46455-82-4677Tkqvyld1352842 2..1.589719.3.579.2.39619-34-4347Afreese1797526 2.0.1.598658.3.579.[id number] 2.840.1.571632.3.579.2.57312-49-6643Athguoe6153450 2.840.1.596523.3.579.2.58313-18-0232Utnqjco1645724 2.0.1.403976.3.579.2.17853-24-8388Jmjddmm2452331 2.0.1.327033.3.579.2.14730-22-1502Jxswowe8417994 2.0.1.574224.3.579.2.76185-63-5825Cvtcciu1923 2.0.1.974432.3.579.2.21162-98-9315Ypfrbub67957261 2.0.1.382415.3.579.2.08583-16-5794Xvvruhd Health [id number] 82-50-1851Tjhd-htc67769215979-41-6877XqkisilTFP523C6233251-19-9228Injbstr [id number] 6e0kw47u-5h35-9a1s-2164-p932v47n2xj1Vzsqbob [id number] 815155s1-3v0q-459z-s5pl-92ij6460r6h2Iyxzzuo78734025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
[2025-04-18 11:30] VITALS: BP 128/66; PULSE 62; TEMP 36.4; O2SAT 98; BMI 42.4
[2025-04-18] MEDS: CEFAZOLIN SODIUM/DEXTROSE,ISO 2 GM/50 ML PIGGYBACK IV (12:46)
[2025-04-18] MEDS: BUPIVACAINE HCL 0.5% PF 50 MG/10 ML VIAL INJ (13:04)
[2025-04-18 13:24] VITALS: BP 130/64; PULSE 72; TEMP 36.6; O2SAT 97
[2025-04-18 13:39] VITALS: BP 148/89; PULSE 67; O2SAT 96
[2025-04-18 14:10] VITALS: BP 133/66; PULSE 61; O2SAT 97
== END 2025-04-18 14:10 | disposition home or self-care (01) ==
LOC: SURGOUT 11:08
PROVIDERS: Anesthesiology; PCP Nurse Practitioner Family; Visit Provider Orthopaedic Surgery Orthopaedic Trauma
PROC: (CPT 1810; principal; 2025-04-18 12:30)
DX: G56.01 Carpal tunnel syndrome, right upper limb (principal); L57.0 Actinic keratosis; E66.01 Morbid (severe) obesity due to excess calories; Z68.41 Body mass index [BMI] 40.0-44.9, adult; Z90.49 Acquired absence of other specified parts of digestive tract; Z90.79 Acquired absence of other genital organ(s); E78.5 Hyperlipidemia, unspecified; I10 Essential (primary) hypertension; I34.0 Nonrheumatic mitral (valve) insufficiency; F41.9 Anxiety disorder, unspecified
CPT/HCPCS: 26111; 64721; 36415; 84703; 88305; J0665; J0690; J1100; J1885; J2250; J2405; J2704; J3010

== ENCOUNTER 2025-05-11 19:33 | Emergency (ER) | payer BC, SELFPAY ==
--- OUTSIDE RECORDS SUMMARY | 2024-09-14 09:30 | XMS_ITS ---
Author Organization The [facility] in [place] Address [address] [place] [address] Care Team Providers Care Bindery Helper Name Role Phone Kailyn Aguirre Primary Care Provider [phone] REASON FOR VISIT ear infection f/u Encounters Encounter Location Date Provider Diagnosis [facility] [address] [place] [address] 09/14/2024 Kailyn Aguirre Plan Of Treatment No Information Progress Notes * Gladis MICHAEL BDOB:10/1975 (49 yo F)Acc No.[id number]:09/14/2024 UNLOCKED PROGRESS NOTE Progress Note Patient: Altaf MONTEMAYORCECILE Gladis Daniels :?Kailyn Aguirre CNP (TTC)DOB:1975 ???Age:49 Y???Sex:FemaleDate:09/14/2024Phone:[phone]:[address] [place] [address] Subjective: * Chief Complaints: * 1 . Ear infection f/u. * Medical History: Objective: * Vitals: Assessment: Plan: * Treatment: * * Electronic signature of Kailyn Aguirre NP, DOCUMENT CONTROL ASSOCIATE.ADJUNCT PHLEBOTOMY [id number] on 05/11/2025 at 08:37 PM ESTSign off status: PendingVisit Status:?N/S N/C (No Show/No Charge) * Provider: Luis Armando Aguirre CNP (TTC) Date: 0 09/14/2024 Generated for Printing/Faxing/eTransmitting on:?05/11/2025 08:37 PM EST
--- OUTSIDE RECORDS SUMMARY | 2025-03-23 03:30 | XMS_ITS ---
Author Organization [facility] in [place] Address [address] [place] [address] Care Team Providers Care Research Chemical Engineer Name Role Phone Kailyn Aguirre Primary Care Provider [phone] REASON FOR VISIT headache, sinus pressure Encounters Encounter Location Date Provider Diagnosis [facility] [address] [place] [address] 03/23/2025 Kailyn Aguirre Plan Of Treatment No Information Progress Notes * Gladis MICHAEL BDOB:10/1975 (49 yo F)Acc No.[id number]:03/23/2025 UNLOCKED PROGRESS NOTE Progress Note Patient: Altaf SHEAALEXX Gladis Frances :?Kailyn Aguirre (TTC), DIMITRYDOB:1975 ???Age:49 Y???Sex:FemaleDate:03/23/2025Phone:[phone]:[address] [place] [id number] Subjective: * Chief Complaints: * 1 . Headache, sinus pressure. * Medical History: Objective: * Vitals: Assessment: Plan: * Treatment: * * Electronic signature of Kailyn Aguirre NP, LEGAL COORDINATOR.CREDIT AUTHORIZER.[id number] on 05/11/2025 at 08:37 PM ESTSign off status: PendingVisit Status:?N/S N/C (No Show/No Charge) * Provider: Luis Armando Aguirre CNP (TTC) Date: 1 Generated for Printing/Faxing/eTransmitting on:?05/11/2025 08:37 PM EST
[2025-05-11 19:51] VITALS: BP 142/81; PULSE 67; TEMP 36.7; O2SAT 98; BMI 40.7
--- OUTSIDE RECORDS SUMMARY | 2025-05-11 20:37 | XMS_ITS | Clinical Summary ---
Author Organization [facility] Healthcare Address [address] [place] [address] Care Team Providers Care Industrial Relations Commissioner Name Role Phone Yinka Armstrong MD Primary Care Provider [phone] Allergies Active AllergyReactionsCriticalityNoted DateCommentsMetoprololPalpitations,Other ,RsszcrgWkj57/03/2016 heart races per patient Medications MedicationSigDispense QuantityRefillsLast FilledStart DateEnd DateStatus lisinopril 20 MG tablet 1 (one) time each day at the same time.Active pindolol (Visken) 5 MG tablet every 12 (twelve) hours.Active sertraline (Zoloft) 50 MG tablet 1 (one) time each day at the same time.Active Active Problems ProblemNoted DateDiagnosed DateAbnormal uterine kaqvuewn98/26/2023hronic pain 3Generalized anxiety tkodzwwi65/26/2023Morbid frqvwew0912/02/2022Ovarian cyst3Pain in limb3Pelvic and perineal pain12/02/2022 Family History Medical HistoryRelationNameCommentsNo Known ProblemsBrother 1(2)Brain cancer Brother 2No Known ProblemsDaughterLung cancerFatherNo Known ProblemsSister(2)No Known ProblemsSonRelationNameStatusCommentsBrother 1(2)Brother 2DeceasedDaughter AliveFatherDeceasedMotherAliveSister(2)SonAlive Social History Tobacco UseTypesPacks/DayYears UsedDateSmoking Tobacco: FormerCigarettes Smokeless Tobacco: Never Tobacco Cessation:Counseling Given: Not Answered Alcohol UseStandard Drinks/WeekCommentsNot Currently0 (1 standard drink = 0.6 oz pure alcohol)CommentsUnknownSex and Gender InformationValueDate Recorded Sex Assigned at BirthNot on fileLegal TqtJtouwb49/15/2023 7:25 PM EDTGender IdentityNot on fileSexual OrientationNot on file Last Filed Vital Signs Vital SignReadingTime TakenCommentsBlood Mgawxuab335/8403/06/2022 12:00 PM EST Pulse--Temperature--Respiratory Rate--Oxygen Saturation--Inhaled Oxygen Concentration--Tmhjnh623 kg (243 lb)08/05/2023 1:31 PM WIWMebqtt192 cm (5' 3 ) 08/05/2023 1:31 PM ESTBody Mass Index43.05008/05/2023 1:31 PM EST Plan of Treatment Health MaintenanceDue DateLast DoneCommentsCT Exxidgoifquz61/05/1976Colonoscopy 1975Colorectal Cancer Fkuxcgjom40/05/1976FIT-DNA1975FIT1975 FOBT1975 1232Aflbtvsohnloj86/05/1976Pap Smear1996Cervical Cancer Muxouokci30/05/2006HPV/Izjdgz2806/13/20054973Jgzugbpjj32/05/2016COVID-19 Vaccine ( season)/, 09/21/2020, 08/31/2020Influenza Vaccine (#1)/, 03/09/2020, 03/16/2018, Additional history exists Pneumococcal Vaccine: Pediatrics (0 to 5 Years) and At-Risk Patients (6 to 64 Years)Aged OutNo longer eligible based on patient's age to complete this topic Insurance Care Teams Team MemberRelationshipSpecialtyStart DateEnd Yinka Armstrong MD PCP - GeneralFamily Pmowinnq20/25/23
--- OUTSIDE RECORDS SUMMARY | 2025-05-11 20:37 | XMS_ITS | Clinical Summary ---
Author Organization [facility] Address [address] [place] [address] Care Team Providers Care Psychology Professor Name Role Phone Kailyn Aguirre DIMITRY Primary Care Provider [phone] Allergies Active AllergyReactionsCriticalityNoted QvxuNbdtodvrZtflnsnfpfEmkgd01/03/2016 heart races per patient Medications MedicationSigDispense QuantityRefillsLast [...] 90 tablet tive Active Problems ProblemNoted DateDiagnosed QjvpIcchszb91/15/2025Loss of taste09/21/2024hronic painbnormal uterine ggpnbcfd07eneralized anxiety /Ovarian cystain in limb elvic and perineal pain/13/2023Essential wnvvwltvhkzy94/11/2019 Assessment & Plan (07/23/2023 9:24 AM EST): [...] for hypertension -I will get repeat echo Pyirusl6007/20/2018Pituitary cyst07/20/2018Sleep apnea Hypertensive xkaeuqes32/04/2019Hypertrophy ldjbxch7502/10/2018Pituitary mass 10/20/2017Obesity, Class III, BMI 40-49.9 (morbid obesity)09/25/2017Cervical kyiuxfztzj14/12/3015Tdmlvttmmniik55/03/2016PalpitationsNonrheumatic mitral valve regurgitation Assessment & Plan (07/23/2023 9:13 AM EST): Continues to have palpitations with known MV regurg on beta yandel. Will repeat echo to evaluate for any worsening MV regurg, diastolic dysfunction. Diastolic dysfunction, left ventricle Assessment & Plan (07/23/2023 9:49 AM EST): Currently without fluid overload/ edema at this time with chlorthalidone daily. + RANDALL Will repeat TTE Encounters DateTypeDepartmentCare NistOcluoubjuyd90/21/2025Ref[facility] [place] [address] [place] [address] Mary Martin, DIMITRY Essential hypertensionfrom [...] file07/31/2023CommentsUnknownSex and Gender InformationValueDate RecordedSex Assigned at LtuhpGskpis24/09/2025 9:38 AM EDT Legal AkhGmhmav07/30/2022 12:11 AM EDTGender AqzyifiyAenmql07/09/2025 9:38 AM EDTSexual OrientationHeterosexual or Swcuajkk53/09/2025 9:38 AM EDT Last Filed Vital Signs Vital SignReadingTime TakenCommentsBlood Bvbzcocc726/65012/14/2024 8:30 AM EDT Ixjuv8475/08/2025 8:30 AM EDTTemperature--Respiratory Eatv842812/14/2024 8:05 AM EDTOxygen Rrctlpvnud311%12/14/2024 8:30 AM EDTInhaled Oxygen Concentration-- Bfnyxr931 kg (239 lb)10/06/2024 2:11 PM KYLFphkkf179 cm (5' 3 )10/06/2024 2:11 PM EDTBody Mass Index42.34010/06/2024 2:11 PM EDT Plan of Treatment Health MaintenanceDue DateLast DoneCommentsCT Eqhxxifdbsyl35/05/1976Colonoscopy 1975Colorectal Cancer Rvlzddoii43/05/1976FIT-DNA1975FIT1975 FOBT1975 4444Vmunndwsycrvu77/05/1976Depression Iodcoumru61/05/1988Hepatitis B Vaccines (1 of 3 - 19+ 3-dose series)1994Pneumococcal Vaccine: Pediatrics (0 to 5 Years) and At-Risk Patients (6 to 64 Years) (1 of 2 - PCV)1994Pap Smear1996Adult Yesigbw4606/13/1997Cervical Cancer Uehicwmoq46/05/2006 HPV/Wtqrll5706/13/20057399Cdfghgdbn12/05/2016COVID-19 Vaccine ( season) , 09/21/2020, 08/31/2020Influenza Vaccine [...] Team MemberRelationshipSpecialtyStart DateEnd Date Kailyn Aguirre CNP [facility] [facility], [place] [address] PCP - GeneralHumbold[facility] Hospitally Medicine02/19/23
--- OUTSIDE RECORDS SUMMARY | 2025-05-11 20:37 | XMS_ITS | Clinical Summary ---
Author Organization [employer] [facility] tem Address [id number] [place] [address] Care Team Providers Care Wheel And Caster Repairer Name Role Phone Yinka Armstrong MD Primary Care Provider [phone] Allergies No known active allergies Medications MedicationSigDispense QuantityRefillsLast FilledStart DateEnd DateStatus pindolol (VISKEN) 5 mg tablet Take 5 mg by mouth.04/08/2016Active lisinopril (PRINIVIL,ZESTRIL) 5 mg tablet Take 5 mg by mouth.09/25/2017Active sertraline (ZOLOFT) 50 mg tablet Take 50 mg by mouth.04/10/2016Active Active Problems ProblemNoted DateDiagnosed DateHypertrophy tdnldqj2602/10/2018 Social History Tobacco UseTypesPacks/DayYears UsedDateSmoking Tobacco: FormerCigarettesQuit: 2005Smokeless Tobacco: NeverChildcareAnswerDate RecordedChildcareUnknown 11/19/2018EmploymentAnswerDate QrkcvpmtIpviyuzcxiKjkmybs82/13/2019Purpose - Life AnswerDate RecordedPurpose and direction in trspHoibkwo98/11/2021 CommentsUnknownSex and Gender InformationValueDate RecordedSex Assigned at Not on fileLegal LhyMgesvj31/02/2018 2:38 PM EDTGender IdentityNot on fileSexual OrientationNot on file Last Filed Vital Signs Vital SignReadingTime TakenCommentsBlood Pressure--Pulse--Temperature-- Respiratory Rate--Oxygen Saturation--Inhaled Oxygen Concentration--Pgekdu417.9 kg (248 lb 12.8 oz)04/21/2018 8:56 AM DHUYkcqvz185 cm (5' 3 )04/21/2018 8:56 AM ESTBody Mass Index44.0704/21/2018 8:56 AM EST Plan of Treatment Health MaintenanceDue DateLast DoneCommentsDepression Rignehhbs36/05/1988Tobacco Lizppifyu23/05/1988Adult BMI Vmrlgmeme41/05/1994DTaP,Tdap and Td Vaccines (1 - Tdap)1994Pap Smear1996Influenza Mhvmvul8202/07/2025 Medical Devices Not on file Insurance Care Teams Team MemberRelationshipSpecialtyStart DateEnd Yinka Armstrong MD PCP - GeneralFamily Medicine06/25/18
--- OUTSIDE RECORDS SUMMARY | 2025-05-11 20:37 | XMS_ITS | Patient Health Record ---
Author Organization [facility] in [place] Address [address] [place] [address] Care Team Providers Care Maintenance Associate Name Role Phone Kailyn Aguirre Primary Care Provider [phone] Omari Corley [phone] Allergies No Known Allergies Results Component Value Reference Range Notes COVID-19, Flu A+B IH (Not ye t reviewed by provider) Interpretation: Performing Lab: Notes/Report: COVID neg FLU AnegFLU BnegControlpresentNM ilene perf SPECT rest str Reviewed date:10/21/2024 10:03:13 AM Interpretation: Performing Lab: Notes/Report: Source Facility: [place] [address] Nuclear Medicine Report Signed Patient: GLADIS MICHAEL MR#: [id number] : 1975 Acct:[id number] Age/Sex: 49 / F ADM Date: 10/18/24 Loc: CARD Attending Dr: Gonzalez Ko [employer] Ordering Physician: Gonzalez Ko NP Date of Service: 10/18/24 Procedure(s): NM ilene perf SPECT rest str Accession Number(s): [id number] cc: KAILYN AGUIRRE ; Gonzalez Ko NP Patient Name: GLADIS MICHAEL MR#: [id number] : 1975 Exam Date: 10/18/2024 Ordering Doctor: GONZALEZ KO RADIOLOGY REPORT PROCEDURE: NM ILENE PERF SPECT [...] the study was pending per attending physician [facility] . For more details please see separate [...] Signed By: 10/20/24 1552 DD/ 1550 TD/TT: Deputy Chief Counsel:CBC AUTO DIFF Reviewed date:04/14/2025 10:23:24 AM Interpretation: Performing Lab: Notes/Report: [facility] ,White Blood Count9.04.0-11.0 10 3/uLRed Blood Count4.734.20-5.40 10 6/uL Mrlxdjedtl47.612.0-16.0 g/wQHnathjhqmo04.636.0-48.0 %Mean Corpuscular Odiagl71.7 81.0-99.0 fLMean Corpuscular Yortkadmhv26.826.7-34.0 pgMean Corpuscular HGB Conc 34.329.9-35.2 g/dLRed Cell Distribution Width13.211.0-15.0 %Platelet Syefj838 150-450 10 3/uLMean Platelet Volume9.79.5-13.5 fLNeutrophils Percent Auto65.4 43.0-75.0 %Lymphocytes Percent Auto26.120.5-60.0 %Monocytes Percent Auto5.81.7- 12.0 %Eosinophils Percent Auto1.20.9-7.0 %Basophils Percent Auto1.20.2-2.0 % Immature Granulocytes Pct Auto0.30.0-0.5 %Neutrophils Absolute Auto5.91.4-6.5 10 3/uLLymphocytes Absolute Auto2.41.2-3.8 10 3/uLMonocytes Absolute Auto0.50.3-0.8 10 3/uLEosinophils Absolute Auto0.10.0-0.7 10 3/uLBasophils Absolute Auto0.10.0- 0.1 10 3/uLImmature Granulocytes Abs Auto0.030.00-0.03 10 3/uLPerforming Lab:see noteML - [facility] LBGLYCOHEMOGLOBIN A1C Reviewed date:04/14/2025 10:23:24 AM Interpretation: Performing Lab: Notes/Report: [facility] ,Glycohemoglobin A1C5.44.5-6.2 % ADA RECOMMENDED LIMIT 4.0 - 6.0 ADA THERAPEUTIC TARGET < 7.0 ACTION SUGGESTED > 7.0 Estimated Average Fksmnmc226Gaaujfqosy Lab:see note - [facility] LB INSULIN Reviewed date:04/14/2025 10:23:24 AM Interpretation: Performing Lab: Notes/Report: [facility] ,Jgwdqim11.72.6-24.9 uIU/mL Performed at: - [facility] [address] [id number] Carbonator: Jose Tellez PhD, Phone: [phone] Performing Lab:see note - [facility] LBVITAMIN D 25 [place] Reviewed date:04/14/2025 10:23:24 AM Interpretation: Performing Lab: Notes/Report: [facility] ,Vitamin D18.3 <20 ng/mL Vit D deficient 20-<30 ng/mL Vit D insufficient 30-100 ng/mL Vit D sufficient >100 ng/mL Potential Toxicity Performing Lab:see noteML - [facility] LBHCG Qualitative* Reviewed date:04/18/2025 02:02:53 PM Interpretation: Performing Lab: Notes/Report: [facility] ,HCG QualitativeNEGATIVENEGATIVEPerforming Lab:see note - [facility] LBTSH Reviewed date:04/14/2025 10:23:24 AM Interpretation: Performing Lab: Notes/Report: [facility] ,Thyroid Stimulating Hormone1.1360.358-3.740 uIU/mLPerforming Lab:see noteML - [facility] LBT4 Reviewed date:04/14/2025 10:23:24 AM Interpretation: Performing Lab: Notes/Report: [facility] ,T4 Wizwoyjba39.204.80-13.90 ug/dLPerforming Lab:see note - [facility] LBFREE T3 Reviewed date:04/14/2025 10:23:24 AM Interpretation: Performing Lab: Notes/Report: [facility] ,Free T32.622.18-3.98 pg/mLPerforming Lab:see note - [facility] LB PROF 14(COMP METB) Reviewed date:04/14/2025 10:23:24 AM Interpretation: Performing Lab: Notes/Report: [facility] ,Qugmde784474-324 mmol/LPotassium3.53.5-5.1 mmol/UIvqjfygv12684-874 mmol/LCarbon Fnxfzkx89.321.0-32.0 mmol/LAnion Gap15.6Zlkwsbz8639-371 mg/dLBlood Urea Nitrogen 12.07.0-18.0 mg/dLCreatinine0.520.55-1.02 mg/dLEstimated GFR ( Mary>60 >=60 mL/min/1.73m 2Estimated GFR (Non- Dionna>60>=60 mL/min/1.73m 2BUN Creatinine Ratio23.7Zrsvthf2.18.5-10.1 mg/dLBilirubin Total0.70.2-1.0 mg/dL Aspartate Amino Pegakmcttnw9594-27 U/LAlanine Ndgffckwkrcnhgxb1057-54 U/L Alkaline Fcagwwtuldc2414-275 U/LTotal Protein7.86.4-8.2 g/dLAlbumin Level3.63.4- 5.0 g/dLGlobulin4.2Albumin Globulin Ratio0.9Performing Lab:see noteML - [facility] LBLIPID PROFILE Reviewed date:04/14/2025 10:23:24 AM Interpretation: Performing Lab: Notes/Report: [facility] ,Zwhldtwuudkyn327<=150 mg/xYIokdfymypuu393<=200 mg/dLHDL Ictgmdsyknv5615-45 mg/dL > or =60 mg/dl - LOW CARDIOVASCULAR RISK <40 mg/dl - HIGH CARDIOVASCULAR RISK LDL Cholesterol Pikuhkjura465.0 <100 mg/dl OPTIMAL 100-129 mg/dl NEAR OR ABOVE OPTIMAL 130-159 mg/dl BORDERLINE HIGH 160-189 mg/dl HIGH >190 mg/dl VERY HIGH VLDL VXYHUDRZNSM67.2Chol HDL Ratio4.4 3.3 - 4.4 LOW RISK 4.4 - 7.1 AVERAGE RISK 7.1 - 11.0 MODERATE RISK >11.0 HIGH RISK Performing Lab:see noteML - [facility] LBIRON Reviewed date:04/14/2025 10:23:24 AM Interpretation: Performing Lab: Notes/Report: [facility] ,Iron62.050.0-170.0 ug/dLPerforming Lab:see noteML - [facility] LB Reason For Referral No Information Medications Medication SIG (Take, Route, Frequency, Duration) Notes Start Date End Date Status Sertraline HCl 50 MG 1 tablet Orally Once a day; Duration: 30 days ActiveVitamin D3 50 MCG (1999 UT)1 capsule Orally Once a day; Duration: 30 day(s)5ActivePotassium Chloride ER 10 MEQ1 tablet with food Orally Twice a day; Duration: 30 days12/29/2023Not-TakingLisinopril 20 MGTAKE 1 TABLET BY MOUTH TWICE A DAY FOR 90 DAYS; Duration: 90ActivePindolol 5 MGTAKE 2 TABLETS BY MOUTH TWICE A DAY; Duration: 90ActiveChlorthalidone 25 MG1/2 Orally once dailyActiveALPRAZolam 0.25 MG1 tablet prn Orally Twice a day; Duration: 10 days 5Active Social History Tobacco Use: Social History Observation Description Date Details (start date - stop date) Former Smoker NA - NA Tobacco Use/Smoking Question Answer Notes Patient is a former smoker Alcohol Screen (Audit-C) Question Answer Notes Did you have a drink containing alcohol in the p ast year? No Chipmg1LjhkjmpkhypehiSpwfzknxTQIFW-I (Standard) Question Answer Notes Did you have a drink containing alcohol in the p ast year? No Tsfezq9AwyxjaieewxllrVjmtsaii Problems Problem Type SNOMED Code ICD Code Onset Dates Problem Status W/U Status Risk Notes Problem Leiomyoma of uterus (98667959) Leiomyoma of uterus, unspecified (D25.9) ActiveconfirmedProblemPalpitations (09564216)Palpitations (R00.2)Activeconfirmed ProblemChest pain (21109744)Other chest pain (R07.89)ActiveconfirmedProblem Hypertension (99243766)Hypertension (I10)ActiveconfirmedProblemOsteoarthritis (032173230)Osteoarthritis (M19.90)ActiveconfirmedProblemAnxiety (10959192) Anxiety (F41.9)ActiveconfirmedProblemVitamin D deficiency (50261732)Vitamin D deficiency (E55.9)ActiveconfirmedProblemArthralgia of the ankle and/or foot (893952475)Ankle pain, left (M25.572)ActiveconfirmedProblemSinusitis (72077740) Sinusitis (J32.9)ActiveconfirmedProblemCarpal tunnel syndrome of right wrist (722834368287926)Carpal tunnel syndrome of right wrist (G56.01)Activeconfirmed 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 ProblemTonsillar hypertrophy (38962977)Tonsillar hypertrophy (J35.1)Active confirmedProblemPituitary cyst (234891021)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)Activeconfirmed ProblemBody mass index 40+ - morbidly obese (174199726)BMI 40.0-44.9, adult (Z68.41)ActiveconfirmedProblemLoss of taste (54254577)Loss of taste (R43.2) ActiveconfirmedProblemCyst of ovary (20004317)History of ovarian cyst (Z87.42) ActiveconfirmedProblemSensory disorder of smell and/or taste (7100841497263)Loss of smell (R43.0)ActiveconfirmedProblemPain in thoracic spine (774545146)Back pain, thoracic (M54.6)ActiveconfirmedProblemSkin sensation disturbance (19915178)Hand paresthesia, unspecified laterality (R20.2)ActiveconfirmedProblem Mass of wrist, right (R22.31)ActiveconfirmedProblemHeadache (41128808)Headache, unspecified (R51.9)ActiveconfirmedProblemChronic cough (07832349)Chronic cough (R05.3)ActiveconfirmedProblemMorbid obesity (047807052)Class 3 obesity (E66.01) Activeconfirmed Vital Signs Temperature 98.4 degrees Fahrenheit 05/31/2024 Blood pressure wjxdkcqun71 mm Hg04/06/20258832Iqflla85 in04/06/2025lood pressure jyniroop229 mm Hg04/06/20258955Ysgsxj901.4 lbs1MI42.93 kg/m204/06/2025 Encounters Encounter Location Date Provider Diagnosis [address] [address] 05/24/2024 Omari Hoy Anxiety F41.[address] [address] 09/01/2024 Kailyn Aguirre [address] [place] [address] 09/02/2024Pamela [address] [place] [address]Pamela [facility] [address] [place] [id number] TimothyVitamin D deficiency E55.9B[address] [address]/amela CramerLoss of taste R43.2 ; Loss of smell R43.[address] [place] [address]/Pamela CramerAnxiety F41.9 ; Wellness examination Z00.00 and 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B[facility] [place] [address]/Pamela CramerIntermittent chest pain R07.9 and Anxiety F41.9BSt[facility] [place] [address]/Pamela CramerWellness examination Z00.00 ; Anxiety F41.9 and Class 3 obesity E66.01 Assessments Encounter Date Diagnosis (ICD Code) Assessment Notes Treatment Notes Treatment Clinical Notes Section Notes 05/31/2024 Loss of taste (ICD-10 - R43.2) 05/31/2024Loss of smell (ICD-10 - R43.0)09/01/2024nxiety (ICD-10 - F41.9) some resources shared consider counseling add gla figueredo xanax 09/01/2024Wellness examination (ICD-10 - Z00.00) ROS [...] sertraline daily, set alarm often missing doses 4Anxiety (ICD-10 - F41.9)04/15/2025Vitamin D deficiency (ICD-10 - E55.9)04/06/2025lass 3 obesity (ICD-10 - E66.01) may try mounjaro sample she has notify office if wants rx or needs another sample work on diet, increase activity 10/04/2024nxiety (ICD-10 - F41.9)not taking buspirone , anxious to start new med09/01/2024Pituitary cyst (ICD-10 - E23.6) check old records for last MRI when to repeat MRI? 05/31/2024Sinusitis (ICD-10 - J32.9)fu if not improving Plan [...] PANEL (CHOL/TRIG/HDL/LDL) 09/02/19 25 CBC WITH DIFF (EXP 04/2025) 07/09/2023 CBC WITH DIFF (EXP 04/2025) 11/14/2023 VITAMIN D, 25 LEVEL (TOTAL) 04/06/2025 [...] ACCESS PPO PLUS LOCAL PLAN [address] [place] [id number] Fabi Michael - patient is the spouse [...]
--- NOTE | 2025-05-11 20:48 | ED.GENADUL1 ---
HPI HPI - General Adult General Chief complaint: Recheck/Abnormal Lab/Rx Stated complaint: Wound Check Time Seen by Provider: 05/11/25 20:48 Source: patient Mode of arrival: walk-in Limitations: no limitations History of Present Illness HPI narrative: Patient had surgery on her right wrist for carpal tunnel as well as removal of, a cyst in the same area. She states she had formation of a cyst because of overuse syndrome at her job. She constantly has her hand bent using a mouse at her job. This caused formation of a cyst. While they were repairing her carpal tunnel, they also removed the cyst. The patient states when they removed her sutures, the wound opened up. They had the place topical skin adhesive which did not hold very well. They were supposed to place a splint on her wrist and they did not. The wound has been healing by itself. It has been very itchy and burning. It has finally scabbed over. Onset (ago): day(s) Location: Reports right (wrist) Severity: moderate Quality: Reports burning Pain Consistency: Reports constant Relieving factors: Reports none Exacerbating factors: Reports movement Associated symptoms: Reports denies other symptoms Treatments prior to arrival: Reports none Related Data Home Medications ?Medication ?Instructions ?Recorded ?Confirmed chlorthalidone 25 mg tablet 12.5 mg PO .am 12/04/22 04/18/25 lisinopril 20 mg tablet 20 mg PO BID 12/04/22 04/18/25 pindolol 5 mg tablet 10 mg PO BID 12/04/22 04/18/25 sertraline 50 mg tablet 50 mg PO Q24H 12/04/22 04/18/25 alprazolam 0.25 mg tablet 0.25 mg PO DAILY PRN anxiety 04/13/25 04/18/25 Previous Rx's ?Medication ?Instructions ?Recorded clobetasol 0.05 % topical cream 1 applic topical BID #15 grams 05/11/25 Allergies Allergy/AdvReac Type Severity Reaction Status Date / Time metoprolol (From Toprol XL) Allergy Intermediate tachycardia Verified 05/11/25 19:54 Opioid HPI Opioid Management Most Recent Opioid Data: Last Pain Scale 8 05/11/25, 19:51 Review of Systems ROS Status of ROS 10 or more systems reviewed and unremarkable except as noted in history and below [facility] Medical History Menopausal state ?N95.1 - Menopausal and female climacteric states (ICD-10) Right wrist pain ?M25.531 - Pain in right wrist (ICD-10) Low iron ?E61.1 - Iron deficiency (ICD-10) Snores ?R06.83 - Snoring (ICD-10) Seasonal allergies ?J30.2 - Other seasonal allergic rhinitis (ICD-10) Panic attacks ?F41.0 - Panic disorder [episodic paroxysmal anxiety] (ICD-10) Mass of right wrist ?R22.31 - Localized swelling, mass and lump, right upper limb (ICD-10) Sinusitis ?J32.9 - Chronic sinusitis, unspecified (ICD-10) CARYL (obstructive sleep apnea) ?G47.33 - Obstructive sleep apnea (adult) (pediatric) (ICD-10) Mitral valve regurgitation ?I34.0 - Nonrheumatic mitral (valve) insufficiency (ICD-10) Anxiety ?F41.9 - Anxiety disorder, unspecified (ICD-10) Abnormal uterine bleeding (AUB) ?N93.9 - Abnormal uterine and vaginal bleeding, unspecified (ICD-10) Chronic pain ?G89.29 - Other chronic pain (ICD-10) 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 - Other disorders of pituitary gland (ICD-10) Hypertension ?I10 - Essential (primary) hypertension (ICD-10) Palpitations ?R00.2 - Palpitations (ICD-10) Chest pain ?R07.9 - Chest pain, unspecified (ICD-10) Uncontrolled hypertension ?I10 - Essential (primary) hypertension (ICD-10) Carpal tunnel syndrome ?G56.00 - Carpal tunnel syndrome, unspecified upper limb (ICD-10) Surgical History History of laparoscopy ?Z98.890 - Other specified postprocedural states (ICD-10) History of endometrial ablation ?Z98.890 - Other specified postprocedural states (ICD-10) History of bilateral salpingectomy ?Z90.79 - Acquired absence of other genital organ(s) (ICD-10) Hx of cholecystectomy ?Z90.49 - Acquired absence of other specified parts of digestive tract (ICD-10) H/O section ?Z98.891 - History of uterine scar from previous surgery (ICD-10) Family History Other Delayed recovery from anesthesia Family history of DVT Family history of cancer Family history of renal failure Social History Within the past year, how often did you have a drink containing alcohol: never Score interpretation: A score less than 3 is consistent with normal alcohol consumption. 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 Highest level of school completed/degree received: high school graduate Little interest or pleasure in doing things: not at all Feeling down, depressed, or hopeless: not at all Exam Constitutional Vital Signs, click to edit/add: Last Vital Signs Temp 98.0 F 05/11/25 19:51 Pulse 74 05/11/25 21:37 Resp 16 05/11/25 21:37 BP 131/74 05/11/25 21:37 Pulse Ox 98 05/11/25 21:37 O2 Del Method Room Air 05/11/25 21:37 Documenting provider has reviewed patient's vital signs: yes Common normals: no apparent distress General appearance: cooperative, comfortable, well kempt and well developed Orientation/consciousness: Yes awake, Yes oriented to person, Yes oriented to place and Yes oriented to time Extremity Common normals: normal to inspection and full ROM General: normal exam except as noted Right upper extremity: wrist (Patient has a midline incision that is healing by secondary intention on ) Right wrist: inspection, palpation, ROM, neurovascular exam (The right wrist. There is a scabbed area. There is no increased warmth. ) and other (The right wrist. There is a scabbed area. No increased warmth. ) Other: There is no drainage noted, there is no lymphangitic streaking. There is full active range of motion of all the digits. Distal neurovascular is intact. Patient does have significant discomfort whenever she has the wrist in a flexed position to use her computer mouse. Course Course Hospital Course: Patient was interviewed and examined. Had discussion with the patient and her family member accompanying her. I discussed with her there is no evidence by physical examination of any concern for active infection. Unfortunately, the patient did not receive a splint at the time of removal of her sutures. This is causing her significant discomfort when she is trying to use her computer mouse. The patient is also having some itching and discomfort as this wound continues to heal by secondary intention. I discussed with them the use of a steroid cream (clobetasol) to help with the itching and discomfort while this wound continues to heal by secondary intention. We will also provide the patient with a splint to wear while this wound continues to heal. The patient was provided with a splint. Distal neurovascular remained intact after splint placement. Prescription for clobetasol cream was sent to her pharmacy. I discussed the discharge diagnosis, plan of care, home-going instructions and prescription with the patient and her . The patient is to follow-up with her orthopedics as needed. Patient will be discharged to home in stable condition. She is to return to the emergency department for any further problems or concerns. Vital Signs Vital signs: Vital Signs Temperature 98.0 F 05/11/25 19:51 Pulse Rate 67 05/11/25 19:51 Respiratory Rate 18 05/11/25 19:51 Blood Pressure 142/81 H 05/11/25 19:51 Pulse Oximetry 98 05/11/25 19:51 Temperature 98.0 F 05/11/25 19:51 Pulse Rate 74 05/11/25 21:37 Respiratory Rate 16 05/11/25 21:37 Blood Pressure 131/74 05/11/25 21:37 Pulse Oximetry 98 05/11/25 21:37 Oxygen Delivery Method Room Air 05/11/25 21:37 Medical Decision Making [facility] Narrative Medical decision making narrative: Concern for wound infection, nonhealing wound Differential Diagnosis Differential Diagnosis: Wound infection, nonhealing wound, reaction to topical skin adhesive Discharge Plan Discharge Chief Complaint: Recheck/Abnormal Lab/Rx Clinical Impression: Encounter for wound re-check Patient Disposition: Home, Self-Care Time of Disposition Decision: 21:02 Condition: Good Mode of Transportation: Private Vehicle Prescriptions / Home Meds: New clobetasol 0.05 % cream 1 applic topical BID Qty: 15 0RF No Action alprazolam 0.25 mg tablet 0.25 mg PO DAILY PRN (Reason: anxiety) chlorthalidone 25 mg tablet 12.5 mg PO .am lisinopril 20 mg tablet 20 mg PO BID pindolol 5 mg tablet 10 mg PO BID sertraline 50 mg tablet 50 mg PO Q24H Print Language: Mohawk Instructions: Warm Compress or Soak (ED) Referrals: JOVITA WAITE [Primary Care Provider, Family Practice] - 1 week Discharge Date/Time: 05/11/25 21:39
[2025-05-11 21:37] VITALS: BP 131/74; PULSE 74; O2SAT 98
== END 2025-05-11 21:39 | disposition home or self-care (01) ==
PROVIDERS: Emergency Provider Emergency Medicine; PCP Nurse Practitioner Family
DX: Z48.89 Encounter for other specified surgical aftercare (principal)
CPT/HCPCS: 99283

== ENCOUNTER 2025-05-22 08:55 | Emergency (ER) | payer BC, SELFPAY ==
--- OUTSIDE RECORDS SUMMARY | 2024-09-14 09:30 | XMS_ITS ---
Author Organization The [facility] in [place] Address [address] [place] [address] Care Team Providers Care Trumpet Player Name Role Phone Kailyn Aguirre Primary Care Provider REASON FOR VISIT ear infection f/u Encounters Encounter Location Date Provider Diagnosis [facility] [address] [place] [address] 09/14/2024 Kailyn Aguirre Plan Of Treatment No Information Progress Notes * Gladis MICHAEL BDOB:10/1975 (49 yo F)Acc No.[id number]:09/14/2024 UNLOCKED PROGRESS NOTE Progress Note Patient: Altaf MONTEMAYORCECILE Gladis Daniels :?Kailyn Aguirre CNP (TTC)DOB:1975 ???Age:49 Y???Sex:FemaleDate:09/14/2024Phone:[phone]:[address] [place] [id number] Subjective: * Chief Complaints: * 1 . Ear infection f/u. * Medical History: Objective: * Vitals: Assessment: Plan: * Treatment: * * Electronic signature of Kailyn Aguirre NP, CLINICAL DATA ASSISTANT.REPAIRER RESISTANCE WELDING [id number] on 05/22/2025 at 09:19 AM ESTSign off status: PendingVisit Status:?N/S N/C (No Show/No Charge) * Provider: Luis Armando Aguirre CNP (TTC) Date: 0 09/14/2024 Generated for Printing/Faxing/eTransmitting on:?05/22/2025 09:19 AM EST
--- OUTSIDE RECORDS SUMMARY | 2025-03-23 03:30 | XMS_ITS ---
Author Organization [facility] [place] Address [address] [place] [address] Care Team Providers Care Cafeteria Attendant Name Role Phone Kailyn Aguirre Primary Care Provider REASON FOR VISIT headache, sinus pressure Encounters Encounter Location Date Provider Diagnosis [facility] [address] [place] [address] 03/23/2025 Kailyn Aguirre Plan Of Treatment No Information Progress Notes * Gladis MICHAEL BDOB:10/1975 (49 yo F)Acc No.[id number]:03/23/2025 UNLOCKED PROGRESS NOTE Progress Note Patient: Altaf SHEAALEXX Gladis Frances :?Kailyn Aguirre (TTC), CNPDOB:1975 ???Age:49 Y???Sex:FemaleDate:03/23/2025Phone:[phone]:[address] [place] [id number] Subjective: * Chief Complaints: * 1 . Headache, sinus pressure. * Medical History: Objective: * Vitals: Assessment: Plan: * Treatment: * * Electronic signature of Kailyn Aguirre NP, RECONCILIATION CLERK.MANAGER OF DRILLING.[id number] on 05/22/2025 at 09:19 AM ESTSign off status: PendingVisit Status:?N/S N/C (No Show/No Charge) * Provider: Luis Armando BOYD), MANAGER OF DRILLING Date: 1 Generated for Printing/Faxing/eTransmitting on:?05/22/2025 09:19 AM EST
--- OUTSIDE RECORDS SUMMARY | 2025-05-20 04:00 | XMS_ITS ---
Author Organization [facility] [place] Address [address] [place] [address] Care Team Providers Care Entry Level Truck Driver Name Role Phone Kailyn Aguirre Primary Care Provider Allergies No Known Allergies REASON FOR VISIT sinus infection- ears painful and itchy, head pressure, coughing, Surgery on right wrist- wants youto look at the incision site Medications Medication SIG (Take, Route, Frequency, Duration) Notes Start Date End Date Status Chlorthalidone 25 MG 1/2 Orally once daily ActiveSertraline HCl 50 MG1 tablet Orally Once a day; Duration: 30 daysActive Vitamin D3 50 MCG (1999 UT)1 capsule Orally Once a day; Duration: 30 day(s) 5ActiveLisinopril 20 MGTAKE 1 TABLET BY MOUTH TWICE A DAY FOR 90 DAYS; Duration: 90ActivePindolol 5 MGTAKE 2 TABLETS BY MOUTH TWICE A DAY; Duration: 90 ActiveAmoxicillin-Pot Clavulanate 875-125 MG1 tablet Orally every 12 hrs; Duration: 10 days5ActiveALPRAZolam 0.25 MG1 tablet prn Orally Twice a day; Duration: 10 days5Active Social History Tobacco Use: Social History Observation Description Date Details (start date - stop date) Former Smoker NA - NA Tobacco Use/Smoking Question Answer Notes Patient is a former smoker Vital Signs Weight 245.6 lbs 05/20/2025 Height 63 in 05/20/2025 Blood pressure systolic 122 mm Hg 05/20/20 25 Blood pressure diastolic 86 mm Hg 025 Temperature 96.5 degrees Fahrenheit 05/20/20 25 BMI 43.5 kg/m2 05/20/2025 Encounters Encounter Location Date Provider Diagnosis [facility] [address] [place] [address] 05/20/2025 Kailyn Aguirre Sinusitis J32.9 and 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 Assessments Encounter Date Diagnosis (ICD Code) Assessment Notes Treatment Notes Treatment Clinical Notes Section Notes 05/20/2025 Sinusitis (ICD-10 - J32.9) 05/20/2025Pituitary cyst (ICD-10 - E23.6) Plan Of Treatment Medication Medication Name Sig Start Date Stop Date Notes Amoxicillin-Pot Clavulanate 875-125 MG 1 tablet Orally every 12 hrs; Duration: 10 days 05/20/2025 Pending Test Test Name Order Date MRI PITUITARY W WO CONTRAST 05/20/2025 Next Appt Details Follow Up: prn, Reason: Progress Notes * Gladis MICHAEL BDOB:10/1975 (49 yo F)Acc No.[id number]:05/20/2025 UNLOCKED PROGRESS NOTE Progress Note Patient: Altaf NEWTON Gladis Frances :?Kailyn Aguirre ([facility]), CNPDOB:1975 ???Age:49 Y???Sex:FemaleDate:05/20/2025Phone:[phone]:[address] [place] [id number] In:08:38 AM ESTCheck Out:09:11 AM EST Subjective: * Chief Complaints: * 1 . Sinus infection- ears painful and itchy, head pressure, coughing. 2. Surgery on right wrist- wants you to look at the incision site. * HPI: ???General:?right wrist sx, mass removed off nerves not happy with results imaging?? bumps it, like shock wave, dull tooth ache pain normally wears brace some times swells up at end of day will give it few more months and see how doing sinuses ears itchy, pressure in head cough? over a week wants pituitary cyst recheck, MRI 5 years ago. * ROS: ???General/Constitutional:?Fever?denies.?Headache?denies.?Weight loss denies.?Ophthalmologic:?Discharge?denies.?Eye Pain?denies.?Itching and redness?denies.?ENT:?Patient admits?ears feel full, itchy.?Nasal congestion?admits and pressure .?Nasal discharge?denies.?Sore throat?denies.?Cardiovascular:?Chest tightness/ heavy pressure?denies.?Rapid heart rate?denies.?Swelling of extremities?denies.?Chest pain?denies.?Respiratory:?Productive cough?denies.?Chest pain?denies.?Cough?admits.?Shortness of breath?denies.?Wheezing?denies.?Gastrointestinal:?Abdominal pain?denies.?Constipation?denies.?Decreased appetite?denies.?Diarrhea?denies.?Nausea?denies.?Vomiting denies.?Genitourinary:?Urinary incontinence?denies.?Painful urination?denies.?Musculoskeletal:?Patient complaining of?right wrist pain.?Back pain denies.?Neck pain?denies.?Muscle aches?denies.?Skin:?Rash?denies.?Skin lesion(s)?denies.? * Medical History: C hronic cough, Pharyngitis, [...] C -section , gallbladder , ovarian cyst , Mas removal of right wrist . * Hospitalization/Major Diagno stic Procedure: s ee above . * Family History: F ather: , lung ca, diagnosed with Cancer. M other: alive, blood cancer, diagnosed with Cancer. B rother(s): , brain, diagnosed with Cancer. S ister(s): alive. 3 brother(s) , 2 sister(s) . . * Social History: ???Tobacco Use:?Tobacco Use/Smoking?Patient is a?former smoker * Medications: T aking ALPRAZolam 0.25 MG Tablet 1 tablet prn Orally Twice a day , Taking Chlorthalidone 25 MG Tablet 1/2 Orally once daily , Taking Lisinopril 20 MG Tablet TAKE 1 TABLET BY MOUTH TWICE A DAY FOR 90 DAYS , Taking Pindolol 5 MG Tablet TAKE 2 TABLETS BY MOUTH TWICE A DAY , Taking Sertraline HCl 50 MG Tablet 1 tablet Orally Once a day , Taking Vitamin D3 50 MCG (1999 UT) Capsule 1 capsule Orally Once a day , Discontinued Potassium Chloride ER 10 MEQ Tablet Extended Release 1 tablet with food Orally Twice a day * Allergies: N .K.D.A. Objective: * Vitals: W t:245.6lbs, Ht: 63 in, BP:122/86mm Hg, Temp:96.5F, BMI:43.5Index, Ht-cm: 160.02 cm, Wt-k.4 kg. * Examination: ???General Examinations: ?GENERAL APPEARANCE:?alert and oriented,?in no acute distress.?ENMT:?TM dull BL.?EYES:? conjunctiva normal, sclera non-icteric.?NOSE:?mild congestion.?THROAT:?normal.?LUNGS:?clear to auscultation bilaterally.?CARDIO:? regular rate and rhythm, S1, S2 normal.?ABDOMEN:?soft, nontender.?MUSCULOSKELETAL:?Gait and station normal.?SKIN:? warm and dry.? 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 Plan: * Treatment: Start Amoxicillin-Pot Clavulanate Tablet, 875-125 MG, 1 tablet, Orally, every 12 hrs, 10 days, 20 Tablet, Refills 0.??2.?Pituitary cyst?Imaging: MRI PITUITARY W WO CONTRAST * Preventive Medicine: ??Screenings/Counseling:?BMI ACTION PLAN?Above Normal BMI Follow-up?Dietary management education, guidance, and counseling * Follow Up: p rn * * Electronic signature of Kailyn Aguirre NP, FERRYBOAT [email or web address] on 05/22/2025 at 09:19 AM ESTSign off status: PendingVisit Status:?CHK (Check Out) * Provider: Luis Armando Aguirre ([facility]), WASTEWATER TECHNICIAN Date: 1 07/21/2024 Generated for Printing/Faxing/eTransmitting on:?05/22/2025 09:19 AM EST History and Physical Notes * HPI (History of Present Illness) CategorySub-CategoryDetailNotesCategory NotesGeneral right wrist sx, mass removed off nerves not happy with results imaging? bumps it, like shock wave, dull tooth ache pain normally wears brace some times swells up at end of day will give it few more months and see how doing sinuses ears itchy, pressure in head cough over a week wants pituitary cyst recheck, MRI 5 years ago Examination CategorySub-CategoryDetailNotesCategory NotesGeneral ExaminationsGENERAL APPEARANCE:alert and oriented, in no acute distressEYES:conjunctiva normal, sclera non-ictericNOSE:mild congestionTHROAT:normalCARDIO:regular rate and rhythm, S1, S2 normalLUNGS:clear to auscultation bilaterallyABDOMEN:soft, nontenderSKIN:warm and dryBACK:MUSCULOSKELETAL:Gait and station normalLYMPH NODES:ENMT:TM dull BL
[2025-05-22 09:00] VITALS: BP 150/82; PULSE 70; TEMP 36.7; O2SAT 96; BMI 40.7
--- NOTE | 2025-05-22 09:15 | XR_ITS ---
The [address] [address] Patient Name: MARCELLA HOUSER MRN: [id number] date: 1975 Sex: F Assigned Patient Location: ER Current Patient Location: Accession/Order Number: [id number] Exam Date: 05/22/2025 09:30 Report Date: 05/22/2025 09:59 At the request of: NANI GBISON MD Procedure: XR wrist RT min 3V XR wrist RT min 3V 05/22/2025 9:40 AM SIGNS AND SYMPTOMS: ^Carpal tunnel surgery 1 month ago, pain PROTOCOL: 3 views of the right wrist COMPARISON: None FINDINGS: The radiocarpal joint and carpal rows are preserved. There is no evidence of fracture or dislocation. No significant soft tissue swelling. XR/XR wrist RT min 3V IMPRESSION: No acute bony injury. No significant soft tissue swelling. Impression dictated by: Harvinder Mcginnis M.D. 05/22/2025 9:59 AM Dictation Location: [place] [address] Electronically authenticated by: [id number] Y Date: 05/22/2025 09:59
--- NOTE | 2025-05-22 09:16 | ED.GENADUL1 ---
HPI HPI - General Adult General Chief complaint: Extremity Problem, Nontraumatic Stated complaint: RT HAND PAIN POST SURGERY Time Seen by Provider: 05/22/25 09:05 Source: patient Mode of arrival: walk-in Limitations: no limitations History of Present Illness HPI narrative: 49-year-old female presents for right wrist pain. It began within the last day or 2 and was not precipitated by trauma. A month ago she had carpal tunnel surgery. She describes a burning pain that has been continuous and worse when she moves it. Related Data Home Medications ?Medication ?Instructions ?Recorded ?Confirmed chlorthalidone 25 mg tablet 12.5 mg PO .am 12/04/22 05/22/25 lisinopril 20 mg tablet 20 mg PO BID 12/04/22 05/22/25 pindolol 5 mg tablet 10 mg PO BID 12/04/22 05/22/25 sertraline 50 mg tablet 50 mg PO Q24H 12/04/22 05/22/25 alprazolam 0.25 mg tablet 0.25 mg PO DAILY PRN anxiety 04/13/25 05/22/25 amoxicillin 875 mg-potassium 1 tab PO BID 05/22/25 05/22/25 clavulanate 125 mg tablet Previous Rx's ?Medication ?Instructions ?Recorded acetaminophen 300 mg-codeine 30 mg 1 tab PO Q6H PRN pain 5 days #20 05/22/25 tablet tabs amoxicillin 875 mg-potassium 1 tab PO BID #14 tabs 05/22/25 clavulanate 125 mg tablet Allergies Allergy/AdvReac Type Severity Reaction Status Date / Time metoprolol (From Toprol XL) Allergy Intermediate tachycardia Verified 05/22/25 09:00 Opioid HPI Opioid Management Most Recent Opioid Data: Last Pain Scale 8 Today, 09:10 Last MAR Pain Assessment Today, 09:31 Review of Systems ROS Narrative A ten point review of systems is negative except as noted above. PFSH PFS Medical History Menopausal state ?N95.1 - Menopausal and female climacteric states (ICD-10) Right wrist pain ?M25.531 - Pain in right wrist (ICD-10) Low iron ?E61.1 - Iron deficiency (ICD-10) Snores ?R06.83 - Snoring (ICD-10) Seasonal allergies ?J30.2 - Other seasonal allergic rhinitis (ICD-10) Panic attacks ?F41.0 - Panic disorder [episodic paroxysmal anxiety] (ICD-10) Mass of right wrist ?R22.31 - Localized swelling, mass and lump, right upper limb (ICD-10) Sinusitis ?J32.9 - Chronic sinusitis, unspecified (ICD-10) CARYL (obstructive sleep apnea) ?G47.33 - Obstructive sleep apnea (adult) (pediatric) (ICD-10) Mitral valve regurgitation ?I34.0 - Nonrheumatic mitral (valve) insufficiency (ICD-10) Anxiety ?F41.9 - Anxiety disorder, unspecified (ICD-10) Abnormal uterine bleeding (AUB) ?N93.9 - Abnormal uterine and vaginal bleeding, unspecified (ICD-10) Chronic pain ?G89.29 - Other chronic pain (ICD-10) 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 - Other disorders of pituitary gland (ICD-10) Hypertension ?I10 - Essential (primary) hypertension (ICD-10) Palpitations ?R00.2 - Palpitations (ICD-10) Chest pain ?R07.9 - Chest pain, unspecified (ICD-10) Uncontrolled hypertension ?I10 - Essential (primary) hypertension (ICD-10) Carpal tunnel syndrome ?G56.00 - Carpal tunnel syndrome, unspecified upper limb (ICD-10) Surgical History History of laparoscopy ?Z98.890 - Other specified postprocedural states (ICD-10) History of endometrial ablation ?Z98.890 - Other specified postprocedural states (ICD-10) History of bilateral salpingectomy ?Z90.79 - Acquired absence of other genital organ(s) (ICD-10) Hx of cholecystectomy ?Z90.49 - Acquired absence of other specified parts of digestive tract (ICD-10) H/O section ?Z98.891 - History of uterine scar from previous surgery (ICD-10) Family History Other Delayed recovery from anesthesia Family history of DVT Family history of cancer Family history of renal failure Social History Within the past year, how often did you have a drink containing alcohol: never Score interpretation: A score less than 3 is consistent with normal alcohol consumption. 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 Skin:Warm, dry, no pallor noted.There is no rash noted. Head:Normocephalic, atraumatic Eye: Normal conjunctiva, no drainage Ears, Nose, Mouth, and Throat: oral mucosa is moist. Nares patent. Cardiovascular:Regular Rate and Rhythm Respiratory:Patient is in no distress, no accessory muscle use, lungs are clear to auscultation, no wheezing, rales or rhonchi Back:non-tender GI: Soft and nontender Musculoskeletal: The right wrist is examined. There is some tenderness. The surgical scar is well-healed. There is minimal erythema. Neurological:A&O, normal speech Psychiatric:Cooperative Constitutional Vital Signs, click to edit/add: Last Vital Signs Temp 98.1 F 05/22/25 09:00 Pulse 70 05/22/25 09:00 Resp 12 05/22/25 09:00 BP 150/82 H 05/22/25 09:00 Pulse Ox 96 05/22/25 09:00 O2 Del Method Room Air 05/22/25 09:00 Course Vital Signs Vital signs: Vital Signs Temperature 98.1 F 05/22/25 09:00 Pulse Rate 70 05/22/25 09:00 Respiratory Rate 12 05/22/25 09:00 Blood Pressure 150/82 H 05/22/25 09:00 Pulse Oximetry 96 05/22/25 09:00 Oxygen Delivery Method Room Air 05/22/25 09:00 Temperature 98.1 F 05/22/25 09:00 Pulse Rate 70 05/22/25 09:00 Respiratory Rate 12 05/22/25 09:00 Blood Pressure 150/82 H 05/22/25 09:00 Pulse Oximetry 96 05/22/25 09:00 Oxygen Delivery Method Room Air 05/22/25 09:00 Medical Decision Making MDM Narrative Medical decision making narrative: X-ray shows no acute findings per radiologist. Kevin wrap applied, application checked by me and found to be appropriate, she is neurovascular intact. She was provided pain medication and also a prescription for Augmentin. She will call her orthopedist in the morning for follow-up. Treatment diagnosis and follow-up were discussed with the patient. Differential Diagnosis Differential Diagnosis: Postop pain, cellulitis Imaging Data Right wrist: Radiologist's impression: ITS Impressions Wrist X-Ray 05/22/25 09:15 IMPRESSION: No acute bony injury. No significant soft tissue swelling. Impression dictated by: Harvinder Mcginnis M.D. 05/22/2025 9:59 AM Dictation Location: [facility] Electronically authenticated by: [id number] Y Date: 05/22/2025 09:59 Discharge Plan Discharge Chief Complaint: Extremity Problem, Nontraumatic Clinical Impression: Acute pain of right wrist Patient Disposition: Home, Self-Care Time of Disposition Decision: 10:13 Condition: Good Mode of Transportation: Private Vehicle Prescriptions / Home Meds: New acetaminophen-codeine 300-30 mg tablet 1 tab PO Q6H PRN (Reason: pain) 5 Days Qty: 20 0RF amoxicillin-pot clavulanate 875-125 mg tablet 1 tab PO BID Qty: 14 0RF No Action alprazolam 0.25 mg tablet 0.25 mg PO DAILY PRN (Reason: anxiety) amoxicillin-pot clavulanate 875-125 mg tablet 1 tab PO BID Rx Instructions: started 05/20/2025 chlorthalidone 25 mg tablet 12.5 mg PO .am lisinopril 20 mg tablet 20 mg PO BID pindolol 5 mg tablet 10 mg PO BID sertraline 50 mg tablet 50 mg PO Q24H Print Language: Uzbek Instructions: Pain Management After Surgery (DC) Referrals: JOVITA WAITE [Primary Care Provider, Family Practice] - 1 week
--- OUTSIDE RECORDS SUMMARY | 2025-05-22 09:18 | XMS_ITS | Clinical Summary ---
Author Organization [facility] Healthcare Address [address] [place] [address] Care Team Providers Care Border Measurer And Cutter Name Role Phone Yinka Armstrong MD Primary Care Provider [phone] Allergies Active AllergyReactionsCriticalityNoted DateCommentsMetoprololPalpitations,Other ,PyrlsbrBko41/03/2016 heart races per patient Medications MedicationSigDispense QuantityRefillsLast FilledStart DateEnd DateStatus lisinopril 20 MG tablet 1 (one) time each day at the same time.Active pindolol (Visken) 5 MG tablet every 12 (twelve) hours.Active sertraline (Zoloft) 50 MG tablet 1 (one) time each day at the same time.Active Active Problems ProblemNoted DateDiagnosed DateAbnormal uterine zupbpdex15/26/2023hronic pain 3Generalized anxiety bclpmuug51/26/2023Morbid izyuuwv9712/02/2022Ovarian cyst3Pain in limb3Pelvic and perineal pain12/02/2022 Family History Medical HistoryRelationNameCommentsNo Known ProblemsBrother 1(2)Brain cancer Brother 2No Known ProblemsDaughterLung cancerFatherNo Known ProblemsSister(2)No Known ProblemsSonRelationNameStatusCommentsBrother 1(2)Brother 2DeceasedDaughter AliveFatherDeceasedMotherAliveSister(2)SonAlive Social History Tobacco UseTypesPacks/DayYears UsedDateSmoking Tobacco: FormerCigarettes Smokeless Tobacco: Never Tobacco Cessation:Counseling Given: Not Answered Alcohol UseStandard Drinks/WeekCommentsNot Currently0 (1 standard drink = 0.6 oz pure alcohol)CommentsUnknownSex and Gender InformationValueDate Recorded Sex Assigned at BirthNot on fileLegal DwcLuvlsl82/15/2023 7:25 PM EDTGender IdentityNot on fileSexual OrientationNot on file Last Filed Vital Signs Vital SignReadingTime TakenCommentsBlood Skpixsei624/8403/06/2022 12:00 PM EST Pulse--Temperature--Respiratory Rate--Oxygen Saturation--Inhaled Oxygen Concentration--Oqpkom366 kg (243 lb)08/05/2023 1:31 PM FJPDphewh554 cm (5' 3 ) 08/05/2023 1:31 PM ESTBody Mass Index43.05008/05/2023 1:31 PM EST Plan of Treatment Health MaintenanceDue DateLast DoneCommentsCT Txuvrjlihhrc25/05/1976Colonoscopy 1975Colorectal Cancer Obreostdg74/05/1976FIT-DNA1975FIT1975 FOBT1975 0079Rlnblzkqbdrvm43/05/1976Pap Smear1996Cervical Cancer Ikjhjvsgb12/05/2006HPV/Pohrjp5006/13/20057634Jrqwbkyno41/05/2016COVID-19 Vaccine ( season)/, 09/21/2020, 08/31/2020Influenza Vaccine (#1)/, 03/09/2020, 03/16/2018, Additional history exists Pneumococcal Vaccine: Pediatrics (0 to 5 Years) and At-Risk Patients (6 to 64 Years)Aged OutNo longer eligible based on patient's age to complete this topic Insurance Care Teams Team MemberRelationshipSpecialtyStart DateEnd Yinka Armstrong MD PCP - GeneralFamily Qyxkpepy19/25/23
--- OUTSIDE RECORDS SUMMARY | 2025-05-22 09:20 | XMS_ITS | Clinical Summary ---
Author Organization [employer] [facility] tem Address [id number] [address] [place] [address] Care Team Providers Care Automatic Head Sawyer Name Role Phone Yinka Armstrong MD Primary Care Provider [phone] Allergies No known active allergies Medications MedicationSigDispense QuantityRefillsLast FilledStart DateEnd DateStatus pindolol (VISKEN) 5 mg tablet Take 5 mg by mouth.04/08/2016Active lisinopril (PRINIVIL,ZESTRIL) 5 mg tablet Take 5 mg by mouth.09/25/2017Active sertraline (ZOLOFT) 50 mg tablet Take 50 mg by mouth.04/10/2016Active Active Problems ProblemNoted DateDiagnosed DateHypertrophy djzdddp6102/10/2018 Social History Tobacco UseTypesPacks/DayYears UsedDateSmoking Tobacco: FormerCigarettesQuit: 2005Smokeless Tobacco: NeverChildcareAnswerDate RecordedChildcareUnknown 11/19/2018EmploymentAnswerDate EsldhtwdWdsgonuhriDwcqhtc01/13/2019Purpose - Life AnswerDate RecordedPurpose and direction in xkikOsmzugc78/11/2021 CommentsUnknownSex and Gender InformationValueDate RecordedSex Assigned at Not on fileLegal GvwNilqez67/02/2018 2:38 PM EDTGender IdentityNot on fileSexual OrientationNot on file Last Filed Vital Signs Vital SignReadingTime TakenCommentsBlood Pressure--Pulse--Temperature-- Respiratory Rate--Oxygen Saturation--Inhaled Oxygen Concentration--Knskvt797.9 kg (248 lb 12.8 oz)04/21/2018 8:56 AM XNUPxojfb653 cm (5' 3 )04/21/2018 8:56 AM ESTBody Mass Index44.0704/21/2018 8:56 AM EST Plan of Treatment Health MaintenanceDue DateLast DoneCommentsDepression Cypfigsnr58/05/1988Tobacco Juzwcflcv49/05/1988Adult BMI Wtftdxaop38/05/1994DTaP,Tdap and Td Vaccines (1 - Tdap)1994Pap Smear1996Influenza Ratcalz0102/07/2025 Medical Devices Not on file Insurance Care Teams Team MemberRelationshipSpecialtyStart DateEnd Yinka Armstrong MD PCP - GeneralFamily Medicine06/25/18
--- OUTSIDE RECORDS SUMMARY | 2025-05-22 09:20 | XMS_ITS | Clinical Summary ---
Author Organization [facility] Address [address] [place] [address] Care Team Providers Care Metallurgy Teacher Name Role Phone Joseph Harris Tavia VENTURA Primary Care Provider + [phone] Jesus Cheatham MD Unavailable [phone] Allergies Active AllergyReactionsCriticalityNoted DateCommentsMetoprololOther: See Wesiqtek95/03/2016 heart races per patient Medications MedicationSigDispense QuantityRefillsLast FilledStart DateEnd DateStatus pindolol (VISKEN) 5 mg tablet Take 5 mg by mouth twice daily.04/08/2016Active sertraline (ZOLOFT) 50 mg tablet Take 50 mg by mouth once daily.04/10/2016Active lisinopril (ZESTRIL, PRINIVIL) 5 mg tablet Take 1 tablet by mouth once daily. 90 tablet Active Active Problems ProblemNoted DateDiagnosed DatePituitary mass10/20/2017Obesity, Class III, BMI >= 40 E66.01009/25/2017Cervical agnywbcstz77/12/7708Zhdqdbpezyxci47/03/2016 Family History RelationStatusCommentsFatherDeceasedMotherAlive Social History Tobacco UseTypesPacks/DayYears UsedDateSmoking Tobacco: FormerCigarettes0.510 05/22/1995 - 05/22/2005Smokeless Tobacco: NeverAlcohol UseStandard Drinks/Week CommentsNo0 (1 standard drink = 0.6 oz pure alcohol)PHQ-2AnswerDate RecordedPHQ- 2 ljvgy876Area Deprivation IndexAnswerDate RecordedNational Score (1- 100), lower number is lower riskNot on file05/17/2020State Score (1-10), lower number is lower riskNot on file05/17/2020Data from: https://www.neighborhoodatlas.medicine.[facility].edu/. Last address used for calculationNot on file05/17/2020CommentsNoSex and Gender Information ValueDate RecordedSex Assigned at BirthNot on fileLegal GvxCfizhw71/28/2016 1:08 PM ESTGender IdentityNot on fileSexual OrientationNot on file Last Filed Vital Signs Vital SignReadingTime TakenCommentsBlood Xsqtprmv264/8626010/20/2017 9:23 AM EDT second attempt 153/907Uggpv4829/14/2018 9:23 AM DVKCrwzzwrgfxt31.9 ??C (98.5 ??F)10/20/2017 9:23 AM EDTRespiratory Uuup881510/20/2017 9:23 AM EDTOxygen Duqieljqtu26%10/20/2017 9:23 AM EDTInhaled Oxygen Concentration--Snaixt760.9 kg (233 lb 6.4 oz)10/20/2017 9:23 AM ULGWgrddy955.5 cm (5' 2.01 )10/20/2017 9:23 AM EDTBody Mass Index42.68010/20/2017 9:23 AM EDT Plan of Treatment Health MaintenanceDue DateLast DoneCommentsAnxiety Niwjgdsau85/05/1994Depression Lqeixopuf27/05/1994DTaP,Tdap,Td Vaccine (1 - Tdap)1994Hepatitis B Vaccine (1 of 3 - 19+ 3-dose series)1994Cervical Cancer Vajnuhadp52/05/1997 Mammogram Hbohisupw65/05/2016CT Zojwawiqotly41/05/2021ologuard (FIT-DNA) 06/13/20208472Yenwgtzarce36/05/2021olorectal Cancer Peoarhrqs09/05/2021Fecal Occult Blood1Lipid Xbejxufxe14/05/6452Yhmepifccaafr05/05/2021Diabetes Smziruyjc24/, 03/14/2017, 04/11/2016Covid-19 Vaccine ( - season)2025Influenza Vaccine (#1)2025Hepatitis C Screening Ymjzygeab40/06/2017HIV CyjjkoeufYxybsivfz57/28/2017 Procedures Procedure NamePriorityDate/TimeAssociated DiagnosisCommentsBASIC METABOLIC PANEL Pcglvfu6410/06/2017 10:46 AM EDT Lymphocytosis HIV 1/2 COMBO WITH REFLEX TO HWGGBDSXUFURXOQCdelmil47/28/2017 2:50 PM EST Lymphocytosis Cervical adenopathy HEP REMOTE PANEL IDJpzogdr37/06/2017 11:12 AM EDT Lymphocytosis from Last 3 Months or Most Recently Relevant to Health Maintenance Results * (ABNORMAL) BASIC METABOLIC PNL (10/06/2017 10:46 AM EDT)ComponentValueRef RangeTest MethodAnalysis TimePerformed AtPathologist MlauxqnbzPcdasff5232 - 99 mg/dL10/06/2017 5:55 PM EDTCSALEM CITY [facility] MAIN LABORATORYComment: The [place] Diabetes Association (ADA) provides guidance for cutoff [...] Standards of Medical Care in Diabetes 2016, [place] Diabetes Association. Diabetes Care. 2016.39(Suppl 1). TAV770 - 21 mg/dL10/06/2017 5:55 PM EDTCSALEM CITY [facility]ORY Creatinine0.54(L)0.58 - 0.96 mg/dL10/06/2017 5:55 PM EDTCSALEM CITY [facility] MAIN YHTOVZLSWILxjpax563(L)136 - 144 mmol/L10/06/2017 5:55 PM EDTCSALEM CITY [facility] MAIN LABORATORYPotassium4.43.7 - 5.1 mmol/L10/06/2017 5:55 PM EDTCSALEM CITY [facility] MAIN BOBSQLHKZCQonpkmtg79(L)97 - 105 mmol/L10/06/2017 5:55 PM EDT [facility]61688 - 30 mmol/L10/06/2017 5:55 PM EDT [facility] LABORATORYAnion Ycm867 - 18 mmol/L10/06/2017 5:55 PM EDT [facility] LAB[facility]ATORYCalcium9.58.5 - 10.2 mg/dL10/06/2017 5:55 PM EDT [facility]ORYeGFR->6004 5:55 PM EDT [facility] LABORATORYeGFR-All Other Races>60.10/06/2017 5:55 PM EDT [facility] LABORATORYComment: eGFR (Estimated GFR) Units of measure: [...] [facility] Final ResultPerforming OrganizationAddressCity/State/ZIP CodePhone Number [facility] [address] [place] [address] * HIV 1,2 COMBO (AG/AB) (06/05/2017 2:50 PM EST)ComponentValueRef RangeTest MethodAnalysis TimePerformed AtPathologist SignatureHIV 12 Combo (Ag/Ab)Non ReactiveNon Sgobhlrb05/29/2017 11:24 AM ESTHOLZER HOSPITAL LABORATORY Comment: (NOTE) HIV Information: ??[place] Rev. Code 3701.243(E): This information has been [...] [facility] Final ResultPerforming OrganizationAddressCity/State/ZIP CodePhone Number [facility] [address] [place] [address] * HEP REMOTE PANEL BL (03/14/2017 11:12 AM EDT)ComponentValueRef RangeTest MethodAnalysis TimePerformed AtPathologist SignatureHep B Core Ab, Total BlhuoyqrHryqkkqd97/06/2017 6:58 PM EDTCWIL[facility] MAIN LABORATORYHep C Antibody PTWhfhqkydDnqtkmui51/06/2017 6:58 PM EDTCWILSON [facility]OR[facility] MAIN HDMFDUMYESVOmPaLelhdlpaOqphcsfd33/06/2017 6:58 PM EDTCMERCY [facility] LABORATORYHep B Surface Ab, PdpvOaoaaqfhVkmseyni82/06/2017 6:58 PM EDT [facility] LABORATORYComment:NEGATIVESpecimen (Source)Anatomical Location / LateralityCollection Method / VolumeCollection TimeReceived Time Blood specimen (specimen)BLOOD SPECIMEN / Rwfcneo9803/14/2017 11:12 AM EDT 03/14/2017 11:14 AM EDT Narrative Authorizing ProviderResult TypeResult StatusVeto [facility] Final ResultPerforming OrganizationAddressCity/State/ZIP CodePhone Number [facility] [address] [place] [address] from Last 3 Months or Most Recently Relevant to Health Maintenance Insurance Care Teams Team MemberRelationshipSpecialtyStart DateEnd Date Joseph Harris DO PCP - GeneralFamily Medicine07/06/15 Jesus Cheatham MD [address] [address] Primary Staff PhysicianCardiology08/25/18
--- OUTSIDE RECORDS SUMMARY | 2025-05-22 09:20 | XMS_ITS | Clinical Summary ---
Author Organization [facility] Address [address] [place] [address] Care Team Providers Care Mailing Section Clerk Name Role Phone Kailyn Aguirre DIMITRY Primary Care Provider [phone] Allergies Active AllergyReactionsCriticalityNoted QsoiLhgnkuejXqsrcazxomJlgda11/03/2016 heart races per patient Medications MedicationSigDispense QuantityRefillsLast [...] 90 tablet tive Active Problems ProblemNoted DateDiagnosed HtmtGdxkdiy16/15/2025Loss of taste09/21/2024hronic painbnormal uterine oknlhqps34eneralized anxiety fcejgnbf00/Ovarian cyst/ain in limb /elvic and perineal pain/13/2023Essential vpftqinhoqxa83/11/2019 Assessment & Plan (07/23/2023 9:24 AM EST): [...] for hypertension -I will get repeat echo Atukssj2007/20/2018Pituitary cyst07/20/2018Sleep apnea Hypertensive fsfmqiqm54/04/2019Hypertrophy yhsoxzd8602/10/2018Pituitary mass 10/20/2017Obesity, Class III, BMI 40-49.9 (morbid obesity)09/25/2017Cervical lolzfjeqdm80/12/0178Effgqdtstljkv55/03/2016PalpitationsNonrheumatic mitral valve regurgitation Assessment & Plan (07/23/2023 9:13 AM EST): Continues to have palpitations with known MV regurg on beta yandel. Will repeat echo to evaluate for any worsening MV regurg, diastolic dysfunction. Diastolic dysfunction, left ventricle Assessment & Plan (07/23/2023 9:49 AM EST): Currently without fluid overload/ edema at this time with chlorthalidone daily. + RANDALL Will repeat TTE Encounters DateTypeDepartmentCare JvvkTenioekpxjq40/21/2025RefJordan [facility] [place] [address] [place] [address] Mary Martin, DIMITRY Essential hypertensionfrom [...] file07/31/2023CommentsUnknownSex and Gender InformationValueDate RecordedSex Assigned at MdwqoWspdhm60/09/2025 9:38 AM EDT Legal YvbRidvjc39/30/2022 12:11 AM EDTGender CknztzgcOdbopl71/09/2025 9:38 AM EDTSexual OrientationHeterosexual or Ukwgxddr00/09/2025 9:38 AM EDT Last Filed Vital Signs Vital SignReadingTime TakenCommentsBlood Dwtykpbo523/65012/14/2024 8:30 AM EDT Phstx7242/08/2025 8:30 AM EDTTemperature--Respiratory Ukaa933112/14/2024 8:05 AM EDTOxygen Ybpbilxxym842%12/14/2024 8:30 AM EDTInhaled Oxygen Concentration-- Tiehnh279 kg (239 lb)10/06/2024 2:11 PM ZKZEjdjyf062 cm (5' 3 )10/06/2024 2:11 PM EDTBody Mass Index42.34010/06/2024 2:11 PM EDT Plan of Treatment Health MaintenanceDue DateLast DoneCommentsCT Xvvhvnfppkus41/05/1976Colonoscopy 1975Colorectal Cancer Abpdlnari36/05/1976FIT-DNA1975FIT1975 FOBT1975 5909Svqojdbnysgff55/05/1976Depression Mlhassrxw21/05/1988Hepatitis B Vaccines (1 of 3 - 19+ 3-dose series)1994Pneumococcal Vaccine: Pediatrics (0 to 5 Years) and At-Risk Patients (6 to 64 Years) (1 of 2 - PCV)1994Pap Smear1996Adult Ubdwlbn9806/13/1997Cervical Cancer Cofzhvrkh66/05/2006 HPV/Bpgxdz2006/13/20053720Jcywxviau71/05/2016COVID-19 Vaccine ( season) , 09/21/2020, 08/31/2020Influenza Vaccine [...] Team MemberRelationshipSpecialtyStart DateEnd Date Kailyn Aguirre CNP [facility] [facility], [place] [address] PCP - GeneralMercyone North Iowa Medical Centerly Medicine02/19/23
--- OUTSIDE RECORDS SUMMARY | 2025-05-22 09:20 | XMS_ITS | Patient Health Record ---
Author Organization [facility] [place] Address [address] [place] [address] Care Team Providers Care Agricultural Equipment Sales Manager Name Role Phone Kailyn Aguirre Primary Care Provider [place]ryne Omari Corley [phone] Allergies No Known Allergies Results Component Value Reference Range Notes COVID-19, Flu A+B IH (Not ye t reviewed by provider) Interpretation: Performing Lab: Notes/Report: COVID neg FLU AnegFLU BnegControlpresentNM ilene perf SPECT rest str Reviewed date:10/21/2024 10:03:13 AM Interpretation: Performing Lab: Notes/Report: Source Facility: [place] [address] Nuclear Medicine Report Signed Patient: GLADIS MICHAEL MR#: [id number] : 1975 Acct:[id number] Age/Sex: 49 / F ADM Date: 10/18/24 Loc: CARD Attending Dr: Gonzalez Ko ACTUARIAL CONSULTANT Ordering Physician: Gonzalez Ko NP Date of Service: 10/18/24 Procedure(s): NM ilene perf SPECT rest str Accession Number(s): [id number] cc: KAILYN AGUIRRE ; Gonzalez Ko NP Patient Name: GLADIS MICHAEL MR#: [id number] : 1975 Exam Date: 10/18/2024 Ordering Doctor: [...] the study was pending per attending physician [facility] . For more details please see separate [...] Signed By: 10/20/24 1552 DD/ 1550 TD/TT: Concrete Vibrator Operator:CBC AUTO DIFF Reviewed date:04/14/2025 10:23:24 AM Interpretation: Performing Lab: Notes/Report: [facility] ,White Blood Count9.04.0-11.0 10 3/uLRed Blood Count4.734.20-5.40 10 6/uL Wjrowkfuoq87.612.0-16.0 g/eBTeiyulojga70.636.0-48.0 %Mean Corpuscular Dxiena67.7 81.0-99.0 fLMean Corpuscular Kjzfjcrdpz07.826.7-34.0 pgMean Corpuscular HGB Conc 34.329.9-35.2 g/dLRed Cell Distribution Width13.211.0-15.0 %Platelet Plwco751 150-450 10 3/uLMean Platelet Volume9.79.5-13.5 fLNeutrophils Percent Auto65.4 43.0-75.0 %Lymphocytes Percent Auto26.120.5-60.0 %Monocytes Percent Auto5.81.7- 12.0 %Eosinophils Percent Auto1.20.9-7.0 %Basophils Percent Auto1.20.2-2.0 % Immature Granulocytes Pct Auto0.30.0-0.5 %Neutrophils Absolute Auto5.91.4-6.5 10 3/uLLymphocytes Absolute Auto2.41.2-3.8 10 3/uLMonocytes Absolute Auto0.50.3-0.8 10 3/uLEosinophils Absolute Auto0.10.0-0.7 10 3/uLBasophils Absolute Auto0.10.0- 0.1 10 3/uLImmature Granulocytes Abs Auto0.030.00-0.03 10 3/uLPerforming Lab:see note - [facility] LBHCG Qualitative* Reviewed date:04/18/2025 02:02:53 PM Interpretation: Performing Lab: Notes/Report: [facility] ,HCG QualitativeNEGATIVENEGATIVEPerforming Lab:see note - [facility] LBGLYCOHEMOGLOBIN A1C Reviewed date:04/14/2025 10:23:24 AM Interpretation: Performing Lab: Notes/Report: [facility] ,Glycohemoglobin A1C5.44.5-6.2 % ACTION SUGGESTED ADA RECOMMENDED LIMIT 4.0 - 6.0 > 7.0 ADA THERAPEUTIC TARGET < 7.0 Estimated Average Mvvibcz630Bxxltysuok Lab:see note - [facility] LB TSH Reviewed date:04/14/2025 10:23:24 AM Interpretation: Performing Lab: Notes/Report: [facility] ,Thyroid Stimulating Hormone1.1360.358-3.740 uIU/mLPerforming Lab:see [facility] LBT4 Reviewed date:04/14/2025 10:23:24 AM Interpretation: Performing Lab: Notes/Report: [facility] ,T4 Xacgjbevs47.204.80-13.90 ug/dLPerforming Lab:see noteML - [facility] LBPROF 14(COMP METB) Reviewed date:04/14/2025 10:23:24 AM Interpretation: Performing Lab: Notes/Report: [facility] ,Ddxinz728997-151 mmol/LPotassium3.53.5-5.1 mmol/NZetatscl86547-516 mmol/LCarbon Fsevfgv27.321.0-32.0 mmol/LAnion Gap15.6Pghsojy3095-949 mg/dLBlood Urea Nitrogen 12.07.0-18.0 mg/dLCreatinine0.520.55-1.02 mg/dLEstimated GFR ( Mary>60 >=60 mL/min/1.73m 2Estimated GFR (Non- Dionna>60>=60 mL/min/1.73m 2BUN Creatinine Ratio23.7Ychmowd1.18.5-10.1 mg/dLBilirubin Total0.70.2-1.0 mg/dL Aspartate Amino Vrxgobwzmvw2881-43 U/LAlanine Dmhsyysyobadoowz9392-83 U/L Alkaline Dnvciqaxixw9640-232 U/LTotal Protein7.86.4-8.2 g/dLAlbumin Level3.63.4- 5.0 g/dLGlobulin4.2Albumin Globulin Ratio0.9Performing Lab:see noteML - [facility] LBLIPID PROFILE Reviewed date:04/14/2025 10:23:24 AM Interpretation: Performing Lab: Notes/Report: [facility] ,Sufczxkdokdyg896<=150 mg/jJQoewpshlkwi001<=200 mg/dLHDL Hpivrhrphlh9280-78 mg/dL > or =60 mg/dl - LOW CARDIOVASCULAR RISK <40 mg/dl - HIGH CARDIOVASCULAR RISK LDL Cholesterol Jrfbbegijs892.0 100-129 mg/dl NEAR OR ABOVE OPTIMAL >190 mg/dl VERY HIGH 130-159 mg/dl BORDERLINE HIGH <100 mg/dl OPTIMAL 160-189 mg/dl HIGH VLDL ESQPWKFDZGO36.2Chol HDL Ratio4.4 7.1 - 11.0 MODERATE RISK 3.3 - 4.4 LOW RISK >11.0 HIGH RISK 4.4 - 7.1 AVERAGE RISK Performing Lab:see noteML - [facility] LBIRON Reviewed date:04/14/2025 10:23:24 AM Interpretation: Performing Lab: Notes/Report: [facility] ,Iron62.050.0-170.0 ug/dLPerforming Lab:see noteVan [facility] LB INSULIN Reviewed date:04/14/2025 10:23:24 AM Interpretation: Performing Lab: Notes/Report: [facility] ,Qdckjrf99.72.6-24.9 uIU/mL [address] [place], [place] [address] Performed at: [facility] Ware[employer] Operations Associate: Jose Tellez PhD, Phone: [phone] Performing Lab:see note - [facility] LBFREE T3 Reviewed date:04/14/2025 10:23:24 AM Interpretation: Performing Lab: Notes/Report: [facility] ,Free T32.622.18-3.98 pg/mLPerforming Lab:see [facility] VITAMIN D 25 [place] Reviewed date:04/14/2025 10:23:24 AM Interpretation: Performing Lab: Notes/Report: [facility] ,Vitamin D18.3 20-<30 ng/mL Vit D insufficient 30-100 ng/mL Vit D sufficient >100 ng/mL Potential Toxicity <20 ng/mL Vit D deficient Performing Lab:see note - [facility] LB Reason For Referral No Information Medications Medication SIG (Take, Route, Frequency, Duration) Notes Start Date End Date Status Amoxicillin-Pot Clavulanate 875-125 MG 1 tablet Orally every 12 hrs; Duration: 10 days 5ActiveALPRAZolam 0.25 MG1 tablet prn Orally Twice a day; Duration: 10 days5ActiveChlorthalidone 25 MG1/2 Orally once dailyActiveSertraline HCl 50 MG1 tablet Orally Once a day; Duration: 30 daysActiveVitamin D3 50 MCG (2000 UT)1 capsule Orally Once a day; Duration: 30 day(s)5Active Lisinopril 20 MGTAKE 1 TABLET BY MOUTH TWICE A DAY FOR 90 DAYS; Duration: 90 ActivePindolol 5 MGTAKE 2 TABLETS BY MOUTH TWICE A DAY; Duration: 90Active Social History Tobacco Use: Social History Observation Description Date Details (start date - stop date) Former Smoker NA - NA Tobacco Use/Smoking Question Answer Notes Patient is a former smoker Problems Problem Type SNOMED Code ICD Code Onset Dates Problem Status W/U Status Risk Notes Problem Leiomyoma of uterus (11297804) Leiomyoma of uterus, unspecified (D25.9) ActiveconfirmedProblemPalpitations (08434907)Palpitations (R00.2)Activeconfirmed ProblemChest pain (86748699)Other chest pain (R07.89)ActiveconfirmedProblem Hypertension (33493931)Hypertension (I10)ActiveconfirmedProblemOsteoarthritis (349551303)Osteoarthritis (M19.90)ActiveconfirmedProblemAnxiety (12702714) Anxiety (F41.9)ActiveconfirmedProblemVitamin D deficiency (67517797)Vitamin D deficiency (E55.9)ActiveconfirmedProblemArthralgia of the ankle and/or foot (168724475)Ankle pain, left (M25.572)ActiveconfirmedProblemSinusitis (55530889) Sinusitis (J32.9)ActiveconfirmedProblemCarpal tunnel syndrome of right wrist (321767147231477)Carpal tunnel syndrome of right wrist (G56.01)Activeconfirmed 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 ProblemTonsillar hypertrophy (44067612)Tonsillar hypertrophy (J35.1)Active confirmedProblemPituitary cyst (321929591)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)Activeconfirmed ProblemBody mass index 40+ - morbidly obese (818152297)BMI 40.0-44.9, adult (Z68.41)ActiveconfirmedProblemLoss of taste (20076340)Loss of taste (R43.2) ActiveconfirmedProblemCyst of ovary (69792748)History of ovarian cyst (Z87.42) ActiveconfirmedProblemSensory disorder of smell and/or taste (6406152088910)Loss of smell (R43.0)ActiveconfirmedProblemPain in thoracic spine (902075524)Back pain, thoracic (M54.6)ActiveconfirmedProblemSkin sensation disturbance (10779054)Hand paresthesia, unspecified laterality (R20.2)ActiveconfirmedProblem Mass of wrist, right (R22.31)ActiveconfirmedProblemHeadache (88384644)Headache, unspecified (R51.9)ActiveconfirmedProblemChronic cough (17045718)Chronic cough (R05.3)ActiveconfirmedProblemObese class III (finding) (247675517)Class 3 obesity (E66.01)Activeconfirmed Vital Signs Temperature 96.5 degrees Fahrenheit 05/20/2025 Blood pressure cdxjlbaxl96 mm Hg05/20/20251148Kdqidr31 in05/20/2025lood pressure jzioctuj585 mm Hg05/20/20255367Euyfvo151.6 lbs107/21/2024BMI43.5 kg/m205/20/2025 Encounters Encounter Location Date Provider Diagnosis [address] [address] 05/24/2024 Omari Nathaniel Anxiety F41.[address] [address] 09/01/2024 Kailyn Aguirre [address] [address] 09/02/2024Pamela [address] [address]/Pamela [address] [address]/12/2024Pamela CramerVitamin D deficiency E55.9B[address] [address]/Pamela CramerIntermittent chest pain R07.9 and Anxiety F41.[address] [address] 05/20/2025Pamela CramerSinusitis J32.9 and 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B[address] [address]/26/2025Pamela CramerAnxiety F41.9 ; Wellness examination Z00.00 and 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 [place] [address] [place] [address] 05/31/2024amela CramerLoss of taste R43.2 ; Loss of smell R43.0 and Sinusitis J32.9[address] [address] [place] [address] 04/06/2025Pamela CramerWellness examination Z00.00 ; Anxiety F41.9 and Class 3 obesity E66.01 Assessments Encounter Date Diagnosis (ICD Code) Assessment Notes Treatment Notes Treatment Clinical Notes Section Notes 05/31/2024 Loss of taste (ICD-10 - R43.2) 05/31/2024Loss of smell (ICD-10 - R43.0)09/01/2024nxiety (ICD-10 - F41.9) some resources shared consider counseling add gal figueredo 09/01/2024Wellness examination (ICD-10 - Z00.00) ROS done [...] (ICD-10 - F41.9)04/15/2025Vitamin D deficiency (ICD-10 - E55.9)05/20/2025Sinusitis (ICD-10 - J32.9)05/20/2025Pituitary cyst (ICD-10 - E23.6)04/06/2025lass 3 obesity (ICD-10 - E66.01) may try [...] (COMPLETE METABOLIC PANEL) 4 HEMOGLOBIN A1C (GLYCO) 11/14/2023 HEMOGLOBIN A1C (GLYCO) 04/06/2025 HEMOGLOBIN A1C (GLYCO) 07/09/2023 HEMOGLOBIN A1C (GLYCO) 09/01/2024 IRON, TOTAL 09/01/2024 IRON, TOTAL 07/09/2023 IRON, [...] T3) 4 THYROID PANEL (T4/TSH/FREE T3) 5 THYROID PANEL (T4/TSH/FREE T3) 4 MRI PITUITARY W WO CONTRAST 05/20/2025 CMP (COMP MET PERRIN) w/eGFR CKD-EPI 2024 CMP (COMP MET PERRIN) w/eGFR CKD-EPI 2024 CBC WITH DIFF 09/01/2024 CBC WITH DIFF 04/06/2025 Insurance Providers Payer Name Payer Address Payer Phone Subscriber Number Group Number Insured Name Patient Relationship to Insured Coverage Start Date Coverage End Date [employer] ACCESS PPO PLUS LOCAL PLAN [address] [place] [address] [id number] Fabi Michael - patient is the spouse [...] F41.9 Hypertension I10 Surgical History Surgery Date(Month/Year) gallbladder C-sectionMas removal of right wristovarian cystHospitalization History Reason Date(Month/Year) see above
[2025-05-22] MEDS: KETOROLAC TROMETHAMINE 60 MG/2 ML VIAL IM (09:31)
== END 2025-05-22 10:30 | disposition home or self-care (01) ==
PROVIDERS: Emergency Provider Emergency Medicine; PCP Nurse Practitioner Family
DX: M25.531 Pain in right wrist (principal)
CPT/HCPCS: 73110; 96372; 99284; J1885